=== PATIENT | male | born 1945 ===

== ENCOUNTER 2023-06-04 10:14 | Outpatient (OUT) | payer OTHER, MEDICAID, SELFPAY ==
--- NOTE | 2023-06-04 10:25 | VEIN_ITS ---
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 Informed written consent was obtained. Lise Solano RN andShayla Arenas RDMS assisted. Time out procedure was performed. The left lower extremity was prepared and draped in the usual sterile fashion to allow knee flexion in the sterile field. Duplex ultrasound probe was draped in a sterile cover, sterile transmission gel was used. Venous mapping was performed with the areas of dilation and large tributaries marked. The total length was 65 cm from the entry 6 cm above the medial malleolus to 3 cm below the saphenofemoral junction. The diameter of the greater saphenous vein ranged from 10 mm. A 30 gauge needle and 1% buffered lidocaine was used to anesthetize the entry site. A 4 mm incision was made with a scalpel and the saphenous vein was entered percutaneously under direct ultrasound guidance with a micropuncture set, a single stick was successful in gaining access. A micro-guide wire was inserted and the needle removed. A micro-set including a dilator was inserted over the microwire and the needle and dilator were removed. A guide wire was inserted through the micro-set and guided through the saphenous vein to the saphenofemoral junction. The dilator was removed and an introducer sheath was inserted over the wire until the end of the sheath entered the saphenofemoral junction. The dilator and wire were removed and the 600 micron fiber was introduced and placed and positioned so that it extended beyond the sheath and was 3 cm distal to the saphenofemoral femoral junction. Final position of the fiber was determined by ultrasound guidance and duplex imaging. Tumescent anesthetic was delivered by ultrasound guidance. 600 cc of fluid was delivered along the entire course of the saphenous vein. The solution consisted of 1000 cc of normal saline with 40 mL of 1% lidocaine and 20 mL of sodium bicarbonate. A final positioning check was made. The energy source was turned on by means of the foot pedal and the fiber and sheath were withdrawn. The total number of Joules delivered was 3360. The laser was active for 420seconds under continuous pulse, average laser use of 8 J. Laser start time 11:31 AM, 06/04/2023. Laser stop time 11:39 AM, 06/04/2023. A duplex ultrasound revealed compressibility and flow at the saphenofemoral junction immediately after the procedure. Hemostasis at the access site was achieved. The skin incision of the saphenous vein was closed with a 4 x 4. A compression stocking was applied. Postop instructions were given. A follow up appointment was recommended and scheduled. The patient tolerated the procedure well. Electronically authenticated by: CALI FRASER Date: 06/04/2023 12:51
[2023-06-05] MEDS: LIDOCAINE HCL 10 ML, SODIUM BICARBONATE 1 MEQ INJ (08:25)
[2023-06-05] MEDS: 0.9 % SODIUM CHLORIDE 500 ML, LIDOCAINE HCL 20 ML, SODIUM BICARBONATE 10 MEQ INJ (08:25)
== END 2023-06-04 10:15 | disposition home or self-care (01) ==
LOC: VC 10:14
PROVIDERS: PCP Radiology Diagnostic Radiology; Visit Provider Radiology Diagnostic Radiology
DX: I83.813 Varicose veins of bilateral lower extremities with pain (principal); I80.02 Phlebitis and thrombophlebitis of superficial vessels of left lower extremity
CPT/HCPCS: 36478

== ENCOUNTER 2023-06-09 10:44 | Outpatient (OUT) | payer OTHER, MEDICAID, SELFPAY ==
--- NOTE | 2023-06-09 10:46 | VEIN_ITS ---
Patient: YOUSIF NAJERA Exam Date: 06/09/2023 : 1945 Gender:M Ordering : DR THERESA DE DIOS M.D. Admission #: [id number] Family : Order #: [id number] CLICK HERE TO VIEW EXAM RADIOLOGY REPORT PROCEDURE: VC EXT VENOUS LT LIMITED COMPARISON: None. INDICATIONS: I80.02 Phlebitis of superficial veins of lt lower extremity TECHNIQUE: Lower extremity rodriges scale and Duplex Doppler evaluation of the deep venous system from the inguinal ligament through the calf veins. FINDINGS: REGION: Left lower extremity. THROMBI: Negative for DVT. Heat induced thrombus in left prox GSV 6.4cm from SFJ and extends to distal lower leg. COMPRESSIBILITY: Non-compressible segments. FLOW: Areas of no flow. OTHER: CONCLUSION: 1. Successful post ablation occlusion of left great saphenous vein. Dictated by: Koko Tanner M.D. on 06/09/2023 at 15:19 Approved by: Koko Tanner M.D. on 06/09/2023 at 15:19
--- NOTE | 2023-06-09 10:46 | VEIN_ITS ---
Patient: YOUSIF NAJERA Exam Date: 06/09/2023 : 1945 Gender:M Ordering : DR THERESA DE DIOS M.D. Admission #: [id number] Family : Order #: [id number] CLICK HERE TO VIEW EXAM RADIOLOGY REPORT PROCEDURE: FACILITY EST LMTD VEIN CENTER - OFFICE VISIT FOLLOW UP COMPARISON: None. PROGRESS NOTES: The patient reports left lower extremity tenderness. Patient is not removed wrapping/bandages since procedure. The patient has followed our recommendations to walk 20-30 minutes once or twice per day since the procedure. Physical exam demonstrates mild erythema at site of prior bandages/wrapping slow without evidence of infection. Persistent varicosities and lower extremity discoloration are identified along the left leg. Review of the ultrasound performed the same day demonstrates occlusive thrombus extending throughout the treated vein, see separate report, consistent with a successful ablation. No thrombus extending into or beyond the saphenofemoral junction. The patient expressed a desire to proceed with treatment of remaining incompetent varicosities. The patient was informed that treatment was a process and would require several procedures/sessions. VEIN/ Facility EST LMTD IMPRESSION: 1. Successful ablation of the left great saphenous vein 2. Persistent incompetent varicose veins and bilateral lower extremity symptoms PLAN: Endovenous laser ablation of left small saphenous vein. Nurse notes, history and physical were reviewed and confirmed, see attached forms. The nurse was present throughout the physical exam and consultation Dictated by: Koko Tanner M.D. on 06/10/2023 at 07:48 Approved by: Koko Tanner M.D. on 06/10/2023 at 07:54
== END 2023-06-09 10:45 | disposition home or self-care (01) ==
LOC: VC 10:45
PROVIDERS: PCP Radiology Diagnostic Radiology; Visit Provider Radiology Diagnostic Radiology
DX: I80.02 Phlebitis and thrombophlebitis of superficial vessels of left lower extremity (principal)
CPT/HCPCS: 93971; G0463

== ENCOUNTER 2023-07-24 08:41 | Outpatient (OUT) | payer OTHER, MEDICAID, SELFPAY ==
--- NOTE | 2023-07-24 08:42 | VEIN_ITS ---
[address] [address] Patient Name: YOUSIF NAJERA MRN: [id number] date: 1945 Sex: M Assigned Patient Location: Current Patient Location: Accession/Order Number: [id number] Exam Date: 07/24/2023 08:45 Report Date: 07/24/2023 10:29 At the request of: THERESA DE DIOS Procedure: VC Endovenous Ablation 1VeinLT EXAMINATION: VC Endovenous Ablation 1VeinLT HISTORY: I83.813 Pain due to varicose veins of bilateral legs The risks and benefits of the procedure had been previously discussed, and were rediscussed at length. Informed written consent was obtained. Cindy Sanchez RN and Mireille Lara RDMS, RVT assisted. Time out procedure was performed. The left lower extremity was prepared and draped in the usual sterile fashion to allow knee flexion in the sterile field. Duplex ultrasound probe was draped in a sterile cover, sterile transmission gel was used. Venous mapping was performed with the areas of dilation and large tributaries marked. The total length was 34 cm from the entry 3 cm above the lateral malleolus to 3 cm below the saphenofemoral popliteal junction. The diameter of the small saphenous vein ranged from 7.0 mm. A 30 gauge needle and 1% buffered lidocaine was used to anesthetize the entry site. A 4 mm incision was made with a scalpel and the saphenous vein was entered percutaneously under direct ultrasound guidance with a micropuncture set, a single stick was successful in gaining access. A micro-guide wire was inserted and the needle removed. A micro-set including a dilator was inserted over the microwire and the needle and dilator were removed. A guide wire was inserted through the micro-set and guided through the saphenous vein to the saphenofemoral junction. The dilator was removed and an introducer sheath was inserted over the wire until the end of the sheath entered the saphenofemoral junction. The dilator and wire were removed and the 600 micron fiber was introduced and placed and positioned so that it extended beyond the sheath and was 3 cm distal to the saphenofemoral or saphenopopliteal junction. Final position of the fiber was determined by ultrasound guidance and duplex imaging. Tumescent anesthetic was delivered by ultrasound guidance. 100 cc of fluid was delivered along the entire course of the saphenous vein. The solution consisted of 1000 cc of normal saline with 40 mL of 1% lidocaine and 20 mL of sodium bicarbonate. A final positioning check was made. The energy source was turned on by means of the foot pedal and the fiber and sheath were withdrawn. The total number of Joules delivered was 1867. The laser was active for 233 seconds under continuous pulse, average laser use of 8 J. Laser start time 9:26 AM, 07/24/2023. Laser stop time 9:30 AM, 07/24/2023. A duplex ultrasound revealed compressibility and flow at the saphenofemoral junction immediately after the procedure. Hemostasis at the access site was achieved. The skin incision of the saphenous vein was closed with a 4 x 4. A compression stocking was applied. Postop instructions were given. A follow up appointment was recommended and scheduled. The patient tolerated the procedure well. Electronically authenticated by: CALI FRASER Date: 07/24/2023 10:29
[2023-07-24] MEDS: LIDOCAINE HCL 10 ML, SODIUM BICARBONATE 1 MEQ INJ (08:50)
[2023-07-24] MEDS: 0.9 % SODIUM CHLORIDE 500 ML, LIDOCAINE HCL 20 ML, SODIUM BICARBONATE 10 MEQ INJ (08:50)
== END 2023-07-24 08:42 | disposition home or self-care (01) ==
LOC: VC 08:42
PROVIDERS: PCP Radiology Diagnostic Radiology; Visit Provider Radiology Diagnostic Radiology
DX: I83.813 Varicose veins of bilateral lower extremities with pain (principal)
CPT/HCPCS: 36478

== ENCOUNTER 2023-07-28 07:42 | Outpatient (OUT) | payer OTHER, MEDICAID, SELFPAY ==
--- NOTE | 2023-07-28 07:45 | VEIN_ITS ---
Patient: YOUSIF NAJERA Exam Date: 07/28/2023 : 1945 Gender:M Ordering : DR CHRIS KIM M.D. Admission #: [id number] Family : Order #: [id number] CLICK HERE TO VIEW EXAM RADIOLOGY REPORT PROCEDURE: FACILITY EST L[facility]D [facility] CENTER - OFFICE VISIT FOLLOW UP [facility] PROGRESS NOTES: The patient reports no significant problems following intravenous laser ablation of the left small saphenous vein. The patient did not require oral analgesics. The patient has worn his compression stockings bilaterally as directed. The patient has followed our recommendations to walk 20-30 minutes once or twice per day since the procedure. Physical exam demonstrates no areas of erythema or warmth. No bruising or active ulceration. Extensive hemosiderin staining skin thickening and subcutaneous edema on the left leg. Review of the ultrasound performed the same day demonstrates occlusive thrombus extending throughout the treated left small saphenous vein with heat induced thrombus 5.1 mm from the saphenopopliteal junction. No deep vein thrombus. The patient expressed a desire to proceed with treatment of incompetent right leg perforating veins with intravenous laser ablation. VEIN/ Facility EST LMTD IMPRESSION: 1. Successful ablation of the left small saphenous vein 2. Persistent incompetent bilateral perforating veins PLAN: Intravenous laser ablation right leg incompetent perforating veins Nurse notes, history and physical were reviewed and confirmed, see attached forms. The nurse was present throughout the physical exam and consultation Dictated by: Chris Kim MD on 07/28/2023 at 08:30 Approved by: Chris Kim MD on 07/28/2023 at 08:32
--- NOTE | 2023-07-28 07:45 | VEIN_ITS ---
Patient: YOUSIF NAJERA Exam Date: 07/28/2023 : 1945 Gender:M Ordering : DR CHRIS KIM M.D. Admission #: [id number] Family : Order #: [id number] CLICK HERE TO VIEW EXAM RADIOLOGY REPORT PROCEDURE: VC EXT VENOUS LT LIMITED COMPARISON: VC EXT VENOUS LT LIMITED, 06/09/2023. INDICATIONS: I80.02 Phlebitis of superficial veins of lt lower extremity TECHNIQUE: Lower extremity rodriges scale and Duplex Doppler evaluation of the deep venous system from the inguinal ligament through the calf veins. FINDINGS: REGION: Left lower extremity. THROMBI: Negative for DVT. 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 Heat induced thrombus in left SSV 5.1 mm from SPJ and extends to distal lower leg. COMPRESSIBILITY: Non-compressible segments corresponding to thrombus. FLOW: Absent flow corresponding to thrombus CONCLUSION: Post ablation occlusion of the left small saphenous vein with heat induced thrombus 5.1 mm from the saphenopopliteal junction Dictated by: Chris Kim MD on 07/28/2023 at 08:13 Approved by: Chris Kim MD on 07/28/2023 at 08:17
== END 2023-07-28 07:43 | disposition home or self-care (01) ==
LOC: VC 07:42
PROVIDERS: PCP Radiology Diagnostic Radiology; Visit Provider Radiology Diagnostic Radiology
DX: I80.02 Phlebitis and thrombophlebitis of superficial vessels of left lower extremity (principal)
CPT/HCPCS: 93971; G0463

== ENCOUNTER 2023-08-11 10:18 | Outpatient (OUT) | payer OTHER, MEDICAID, SELFPAY ==
--- NOTE | 2023-08-11 | VEIN_ITS ---
[address] [address] Patient Name: YOUSIF NAJERA MRN: [id number] date: 1945 Sex: M Assigned Patient Location: Current Patient Location: Accession/Order Number: [id number] Exam Date: 08/11/2023 10:20 Report Date: 08/11/2023 11:33 At the request of: THERESA DE DIOS Procedure: VC Endovenous Perf Ablation RT EXAMINATION: VC Endovenous Perf Ablation RT COMPARISON: INDICATIONS: I83.813 Pain due to varicose veins of bilateral legs OPERATIVE REPORT: Diagnosis: Superficial venous reflux, incompetent perforating veins Procedure: Endovenous laser ablation of the right parole hearing officer(s) Procedure: The patient was positioned supine on the table and the leg was prepped and draped to allow for visualization during venous access. A sterile cover was draped over a 16 mhz ultrasound probe. Venous mapping was performed prior to the procedure noting location and size of vessel(s). Soda Drier Feeder vein 1: Medial distal right lower leg/ankle. The diameter of the vein ranged from 6 mm's below the muscular fascia to 6 mm's at the entry point. Using a 30 gauge needle the entry site was anesthetized with 1 cc of 1% buffered lidocaine. Access was gained percutaneously, with a 21-gauge needle, into the parole hearing officer vein under ultrasound guidance. The needle was advanced into the desired position and the pre-measured 400-micron fiber was then inserted into the needle and locked in place. The position of the fiber was imaged with ultrasound guidance. The fiber tip was visualized to be 20 mm from the deep vessel. An anesthetic solution of 5cc 1% buffered lidocaine was delivered along the course of the vein under ultrasound guidance using a syringe. A final positioning check of the laser fiber tip was performed. The laser was activated by means of a foot-pedal and the fiber and needle were withdrawn together in accordance to the desired joules per treatment area/spot weld. 5 areas/spot welds were performed, and the total number of joules delivered was 251. The total time of energy delivery was 31 seconds. A duplex ultrasound revealed compressibility and flow of the deep system immediately after the procedure. Hemostasis of the access site was achieved and dressed. Soda Drier Feeder vein 2: Anterior mid right lower leg. The diameter of the vein ranged from 5 mm's below the muscular fascia to 4 mm's at the entry point. Using a 30 gauge needle the entry site was anesthetized with 1 cc of 1% buffered lidocaine. Access was gained percutaneously, with a 21-gauge needle, into the parole hearing officer vein under ultrasound guidance. The needle was advanced into the desired position and the pre-measured 400-micron fiber was then inserted into the needle and locked in place. The position of the fiber was imaged with ultrasound guidance. The fiber tip was visualized to be 30 mm from the deep vessel. An anesthetic solution of 5cc 1% buffered lidocaine was delivered along the course of the vein under ultrasound guidance using a syringe. A final positioning check of the laser fiber tip was performed. The laser was activated by means of a foot-pedal and the fiber and needle were withdrawn together in accordance to the desired joules per treatment area/spot weld. 4 areas/spot welds were performed, and the total number of joules delivered was 188. The total time of energy delivery was 23 seconds. A duplex ultrasound revealed compressibility and flow of the deep system immediately after the procedure. Hemostasis of the access site was achieved and dressed. Soda Drier Feeder vein 3: Anterior mid right lower leg. The diameter of the vein ranged from 6 mm's below the muscular fascia to 5 mm's at the entry point. Using a 30 gauge needle the entry site was anesthetized with 1 cc of 1% buffered lidocaine. Access was gained percutaneously, with a 21-gauge needle, into the parole hearing officer vein under ultrasound guidance. The needle was advanced into the desired position and the pre-measured 400-micron fiber was then inserted into the needle and locked in place. The position of the fiber was imaged with ultrasound guidance. The fiber tip was visualized to be 25 mm from the deep vessel. An anesthetic solution of 5cc 1% buffered lidocaine was delivered along the course of the vein under ultrasound guidance using a syringe. A final positioning check of the laser fiber tip was performed. The laser was activated by means of a foot-pedal and the fiber and needle were withdrawn together in accordance to the desired joules per treatment area/spot weld. 4 areas/spot welds were performed, and the total number of joules delivered was 160. The total time of energy delivery was 20 seconds. A duplex ultrasound revealed compressibility and flow of the deep system immediately after the procedure. Hemostasis of the access site was achieved and dressed. A 20-30 mm compression stocking over coban was placed on the treated leg. Post-Op instructions were given, and a follow-up appointment was made. CONCLUSION: 1. Technically successful endovenous laser ablation of 3 right leg incompetent parole hearing officer veins Electronically authenticated by: THERESA DE DIOS Date: 08/11/2023 11:33
[2023-08-11] MEDS: LIDOCAINE HCL 20 ML, SODIUM BICARBONATE 2 MEQ INJ (10:29)
== END 2023-08-11 10:19 | disposition home or self-care (01) ==
LOC: VC 10:18
PROVIDERS: PCP Radiology Diagnostic Radiology; Visit Provider Radiology Diagnostic Radiology
DX: I83.813 Varicose veins of bilateral lower extremities with pain (principal)
CPT/HCPCS: 36478

== ENCOUNTER 2023-08-25 10:04 | Outpatient (OUT) | payer OTHER, MEDICAID, SELFPAY ==
--- NOTE | 2023-08-25 10:05 | VEIN_ITS ---
Patient: YOUSIF NAJERA Exam Date: 08/25/2023 : 1945 Gender:M Ordering : DR THERESA DE DIOS M.D. Admission #: [id number] Family : Order #: [id number] CLICK HERE TO VIEW EXAM RADIOLOGY REPORT PROCEDURE: VC EXT VENOUS RT LMTD COMPARISON: None. INDICATIONS: I80.01 Phlebitis of superficial veins of rt lower extremity TECHNIQUE: Lower extremity rodriges scale and Duplex Doppler evaluation of the deep venous system from the inguinal ligament through the calf veins. FINDINGS: REGION: Right lower extremity. THROMBI: Negative for DVT. Heat induced thrombus in two environmental advisor veins in medial lower leg. COMPRESSIBILITY: Non-compressible segments. FLOW: Areas of no flow. OTHER: Varicose veins remain. CONCLUSION: 1. Successful post ablation occlusion of right lower extremity treated environmental advisor veins. Dictated by: Koko Tanner M.D. on 08/25/2023 at 10:27 Approved by: Koko Tanner M.D. on 08/25/2023 at 10:34
--- NOTE | 2023-08-25 10:05 | VEIN_ITS ---
Patient: YOUSIF NAJERA Exam Date: 08/25/2023 : 1945 Gender:M Ordering : DR THERESA DE DIOS M.D. Admission #: [id number] Family : Order #: [id number] CLICK HERE TO VIEW EXAM RADIOLOGY REPORT PROCEDURE: [facility] EST LMTD VEIN CENTER - OFFICE VISIT FOLLOW UP COMPARISON: [facility], 07/28/2023. PROGRESS NOTES: The patient reports improvement in leg symptoms. There has been interval reduction in varicosities. The patient has followed our recommendations to walk 20-30 minutes once or twice per day since the procedure. Physical exam demonstrates decrease in varicosities of the leg. Persistent extensive skin changes and healing wounds are identified along the lower legs. Review of the ultrasound performed the same day demonstrates occlusive thrombus extending throughout the treated vein(s), see separate report, consistent with a successful ablation. No thrombus extending into or beyond the saphenofemoral junction. The patient expressed a desire to proceed with treatment of remaining incompetent varicosities, but has not been approved for additional treatment by insurance. VEIN/[facility] EST TD IMPRESSION: 1. Successful ablation of the right lower extremity shrimp trawler veins. 2. Persistent abnormal dilated incompetent superficial veins and bilateral lower extremity symptoms. PLAN: 1. Follow-up evaluation in 3 months to track healing progress of lower extremity wounds and extensive skin changes. Resubmit to insurance to obtain approval for the additional much needed treatment. Nurse notes, history and physical were reviewed and confirmed, see attached forms. The nurse was present throughout the physical exam and consultation Dictated by: Koko Tanner M.D. on 08/25/2023 at 10:34 Approved by: Koko Tanner M.D. on 08/25/2023 at 10:39
== END 2023-08-25 10:05 | disposition home or self-care (01) ==
PROVIDERS: PCP Radiology Diagnostic Radiology; Visit Provider Radiology Diagnostic Radiology
DX: I80.01 Phlebitis and thrombophlebitis of superficial vessels of right lower extremity (principal)
CPT/HCPCS: 93971; G0463

== ENCOUNTER 2023-11-26 09:42 | Outpatient (OUT) | payer OTHER, MEDICAID, SELFPAY ==
--- NOTE | 2023-11-26 | VEIN_ITS ---
Patient Name: YOUSIF NAJERA MR#: [id number] : 1945 Exam Date: 11/26/2023 Ordering Doctor: DR THERESA DE DIOS M.D. RADIOLOGY REPORT PROCEDURE: VC EXT VENOUS MITCH LIMITED COMPARISON: None. INDICATIONS: Phlebitis of superficial vein of bilateral lower extremities TECHNIQUE: Lower extremity rodriges scale and Duplex Doppler evaluation of the deep venous system from the inguinal ligament through the calf veins. FINDINGS: REGION: Right lower extremity. THROMBI: None in deep system. COMPRESSIBILITY: Normal compressibility. FLOW: Normal waveform and antegrade flow between 5 and 20 cm/s. OTHER: Patent varicose vein mid/med thigh 5.6mm with 1.3s reflux. Patent varicose vein medial knee 5.3mm with 1.5s reflux. Patent varicose vein 3.9mm with 1.3s reflux. Patent varicose vein dist/med calf 4.7mm with 0.7s reflux. Patent varicose vein mid/ant thigh 5.1 mm with 0.8s reflux. REGION: Left lower extremity. THROMBI: None in deep system. COMPRESSIBILITY: Normal compressibility. FLOW: Normal waveform and antegrade flow between 5 and 20 cm/s. OTHER: Patent varicose vein mid/med thigh 4.5mm with 1.4s reflux. Patent varicose vein mid/ant thigh 6.3mm with 1.0s reflux. Patent varicose dist/med thigh 4.3mm with 1.2s reflux. Patent varicose vein prox/med calf 3.8mm with 0.7s reflux. Patent varicose vein 5.0mm with 0.8s reflux. Patent varicose vein dist/lat thigh 4.8mm with 1.3s reflux. CONCLUSION: 1. No deep vein thrombus within right or left lower extremity. 2. Multiple dilated and incompetent superficial varicosities bilaterally. 3. Microfoam chemical ablation of dilated and incompetent superficial varicosities is recommended bilaterally. Dictated by: Koko Tanner M.D. on 11/26/2023 at 10:31 Approved by: Koko Tanner M.D. on 11/26/2023 at 12:17
--- NOTE | 2023-11-26 | VEIN_ITS ---
Patient Name: YOUSIF NAJERA MR#: [id number] : 1945 Exam Date: 11/26/2023 Ordering Doctor: DR THERESA DE DIOS M.D. RADIOLOGY REPORT PROCEDURE: [facility] EST L[facility] VEIN CENTER - OFFICE VISIT FOLLOW UP [facility] PROGRESS NOTES: The patient reports continued lower extremity symptoms and extensive bilateral lower extremity skin changes. Physical exam demonstrates bilateral superficial varicosities of the legs and extensive lower extremity skin changes bilaterally; no open wounds. Review of the ultrasound performed the same day demonstrates occlusive thrombus extending throughout the treated vein(s), and numerous patent, abnormally dilated, and incompetent superficial varicosities of the legs bilaterally. The patient expressed a desire to proceed with treatment of remaining incompetent superficial varicosities. The patient was informed that treatment was a process and would require multiple procedures/sessions. VEIN/[facility] EST LMTD IMPRESSION: 1. Numerous incompetent and dilated superficial branch saphenous varicosities bilaterally. PLAN: 1. Request insurance company approval for treatment of patient's numerous abnormally dilated lower extremity branch saphenous varicosities with microfoam chemical ablation. Nurse notes, history and physical were reviewed and confirmed, see attached forms. The nurse was present throughout the physical exam and consultation Dictated by: Koko Tanner M.D. on 11/26/2023 at 12:17 Approved by: Koko Tanner M.D. on 11/26/2023 at 12:25
== END 2023-11-26 09:43 | disposition home or self-care (01) ==
LOC: VC 09:42
PROVIDERS: PCP Radiology Diagnostic Radiology; Visit Provider Radiology Diagnostic Radiology
DX: I83.813 Varicose veins of bilateral lower extremities with pain (principal)
CPT/HCPCS: 93970; G0463

== ENCOUNTER 2024-01-15 13:40 | Outpatient (OUT) | payer OTHER, MEDICAID, SELFPAY ==
--- NOTE | 2024-01-15 13:45 | VEIN_ITS ---
[address] [address] Patient Name: YOUSIF NAJERA MRN: [id number] date: 1945 Sex: M Assigned Patient Location: Current Patient Location: Accession/Order Number: [id number] Exam Date: 01/15/2024 13:59 Report Date: 01/15/2024 15:00 At the request of: THERESA DE DIOS Procedure: VC INJ Foam Sclerosant WUS ENVIRONMENTAL EDUCATION SPECIALIST PROCEDURE: VC INJ Foam Sclerosant WUS ENVIRONMENTAL EDUCATION SPECIALIST HISTORY: Pain due to varicose veins of bilateral legs I83.813 Pre-operative Diagnosis: CEAP class C6 venous insufficiency with pain, tenderness, edema and incompetent branch saphenous vein(s), chronic venous insufficiency right leg secondary to venous incompetence Post-operative Diagnosis: CEAP class C6 venous insufficiency with pain, tenderness, edema and incompetent branch saphenous vein(s), chronic venous insufficiency right leg secondary to venous incompetence Procedure Performed: 1. Ultrasound-guided microfoam chemical ablation with Varithenaregistered 2. Intraoperative ultrasound guidance Physician: Cali Tanner M.D. Anesthesia: None Indications for Procedure: 78 year old male. Symptoms including chronic skin changes, pain, swelling, dilated bulging veins for many years despite conservative medical therapy including medical compression stockings, exercise and analgesics. Prior procedures include [endovenous laser ablation. Multiple incompetent varicosities of the right leg. Duplex scan showed reflux and enlarged diameters up to 5 mm. The patient underwent informed consent including management options where the complications of infection, bleeding, pain, and skin injury were discussed. Particular attention was spent discussing thrombus extension and deep vein thrombosis as well as the possibility of pulmonary embolus and treatment with oral or injectable blood thinners. Procedure: The patient walked to the procedure room. All applicable staff donned appropriate apparel. A procedure timeout was performed to confirm correct patient, correct extremity, correct procedure, and correct room set-up including presence of all applicable supplies, devices, and drugs. A duplex ultrasound, performed by myself confirmed the location and incompetence of branch saphenous varicosities and their course was marked on the skin together with the dilated tributaries. The extent of treatment of the vein and the associated varicosities was determined through ultrasound mapping. The skin was prepped and then punctured with a butterfly needle and advanced under ultrasound guidance. The Varithenaregistered canister was activated and the canister was primed and purged as required in the instructions for use. Varithenaregistered was drawn into a sterile syringe. Varithenaregistered was slowly administered at 0.5-1.0 cc/second with close observation by ultrasound of its course in the vessels. Total volume utilized was: 15 mL (12 mL into a 5 mm varicosity distal medial lower leg; 3 mL into a 5 mm varicosity proximal anterior lower leg). Following administration of Varithenaregistered the leg was elevated and the patient was asked to repeatedly dorsiflex the ankle to limit flow of Varithenaregistered into perforating veins. Once appropriate spasm had been confirmed in the treated veins, the vascular catheter was removed from the leg and light pressure was applied over the puncture site for hemostasis. The common femoral and deep superficial veins were then evaluated for flow and compressibility prior to dressing placement. The lower extremity was kept elevated at 45 degrees above the horizontal and cording material was applied over the saphenous segments and tributaries to allow for eccentric compression over the target vessels including the targeted saphenous vein(s). A multilayer dressing was applied consisting of foam pads, coban and thigh-high 20-30 mm Hg compression elastic support hose were placed on the patient. The leg was lowered only after compression had been applied and the patient was immediately ambulatory. The patient ambulated 10 minutes under supervision and was without apparent concerns at time of release. Post-care instructions include advising patient to keep post-treatment bandages in place and dry for 48 hours, avoid extended periods of inactivity, avoid heavy exercise for one week, wear compression stockings on the treated leg continuously for two weeks, to walk daily for 10 minutes over the next month. The patient was instructed to take an anti-inflammatory medicine as needed and to follow up for color duplex scan of the Saphenous veins, the treated branch saphenous varicosities, the adjacent deep veins, and additional treatment within 7 days. PERSONNEL: Deandre Lechuga RN Electronically authenticated by: CALI TANNER Date: 01/15/2024 15:00
--- OUTSIDE RECORDS SUMMARY | 2024-01-15 13:56 | XMS_ITS | CCD ---
Author Name Unknown Address [address] [place] [address] Organization [facility] Care Team Providers Care Heavy Equipment Technician Name Role Phone NEO ROCHA Unavailable Unavailable GTZ III, ABBIE R Unavailable Unavailabl e Dolce, Stepehn R. Admitting Unavailable Dolce, Stephen R. Attending Unavailable Gtz, Abbie Primary Care Unavailable [place] Admitting Unavailable [place] Attending Unavailable Gtz, Abbie Primary Care Unavailable Gzt III, Abbie R Primary Care Physician Unavailable Primary Care Provider Unavailabl e PROVIDER, UNKNOWN Admitting Unavailable PROVIDER, UNKNOWN Attending Unavailable PROVIDER, UNKNOWN Admitting Unavailable PROVIDER, UNKNOWN Attending Unavailable Perlita Reno Unavailable Gtz III, DO Abbie R Primary Care Provider NEIL Reno Attending Provider Perlita Reno Attending Unavailable Perlita Reno Admitting Unavailable Gtz III, Abbie R Primary Care Unavailabl e DOLCE, DR COTE Attending Unavailable DOLCE, DR COTE Admitting Unavailable Dolce, Facundo Alfred Attending Unavailable Dolce, Facundo Alfred Referring Unavailable Dolce, Facundo Alfred Attending Unavailable Dolce, Facundo Alfred Attending Unavailable Dolce, Facundo Alfred Attending Unavailable Dolce, Stephen Cross Attending Unavailable Pocos, Theresa Montgomery Referring Unavailable Pocos, Theresa Montgomery Attending Unavailable Pocos, Theresa Montgomery Admitting Unavailable Dolce, Facundo Alfred Attending Unavailable Dolce, Facundo Alfred Attending Unavailable Dolce, Facundo Alfred Attending Unavailable Dolce, Facundo Alfred Attending Unavailable Dolce, Facundo Alfred Attending Unavailable Dolce, Stephen Cross Attending Unavailable Dolce, Facundo Alfred Attending Unavailable Dolce, Facundo Alfred Attending Unavailable Dolce, Facundo Alfred Attending Unavailable Dolce, Facundo Alfred Attending Unavailable Dolce, Facundo Alfred Attending Unavailable Dolce, Facundo Alfred Attending Unavailable Dolce, Facundo Alfred Attending Unavailable Dolce, Facundo Alfred Referring Unavailable Dolce, Facundo Alfred Admitting Unavailable Dolce, Facundo Alfred Attending Unavailable Gtz, Abbie R Admitting Unavailable Gtz, Abbie R Attending Unavailable Dokken, Bryce Montgomery Attending Unavailable Dolce, Facundo Alrfed Attending Unavailable Dolce, Facundo Alfred Attending Unavailable Dolce, Facundo Alfred Attending Unavailable Dolce, Facundo Alfred Attending Unavailable Dolce, Facundo Alfred Attending Unavailable Dolce, Facundo Alfred Attending Unavailable Dolce, Facundo Alfred Attending Unavailable Dolce, Facundo Alfred Attending Unavailable Dolce, Stephen Cross Attending Unavailable Dolce, Facundo Alfred Attending Unavailable Dolce, Facundo Alfred Attending Unavailable Dolce, Facundo Alfred Attending Unavailable Dolce, Facundo Alfred Attending Unavailable Pocos, Theresa Montgomery Referring Unavailable Pocos, Theresa Montgomery Attending Unavailable Pocos, Theresa Montgomery Admitting Unavailable Dolce, Facundo Alfred Attending Unavailable Dolce, Facundo Alfred Attending Unavailable Dolce, Facundo Alfred Attending Unavailable Dolce, Facundo Alfred Attending Unavailable Dolce, Facundo Alfred Attending Unavailable Dolce, Facundo Alfred Admitting Unavailable POCOS, THERESA Montgomery Attending Unavailable POCOS, THERESA Montgomery Referring Unavailable POCOS, THERESA Montgomery Attending Unavailable POCOS, THERESA Montgomery Referring Unavailable POCOS, THERESA Montgomery Attending Unavailable POCOS, THERESA Montgomery Attending Unavailable POCOS, THERESA Montgomery Referring Unavailable Allergies Allergy Classification Reported Allergen(s) Allergy Type Date of Onset Reaction(s) Facility (20 sources) iodine; Translations: [IODINE] Drug Allergy 6 Unknown (qualifier value) [facility] Repository (20 sources) Penicillins; Translations: [PENICILLINS] Propensity to adverse reactions to drug (disorder) 6 Unknown (qualifier value) [facility] Repository (1 source) SHELLFISH CONTAINING PRODUCTS; Translations: [SHELLFISH CONTAINING PRODUCTS] Propensity to adverse reactions to drug (disorder) 7 AOF [facility] Repository (20 sources) Shellfish; Translations: [shellfish] Propensity to adverse reactions (disorder) Pharyngeal swelling (finding), Difficulty breathing (finding) [facility] Repository (5 sources) Contrast media; Translations: [Contrast Dye] Propensity to adverse reactions Dizziness (finding) [facility] (1 source) Penicillin Drug Allergy rash [employer] Other (1 source) Shellfish Drug allergy Unknown [employer] Other (1 source) Penicillins; Translations: [penicillins] Drug allergy Unknown (qualifier value) [facility] Comment on above: as a child Medications Current Medications Medication Drug Class(es) Dates Sig (Normalized) Sig (Original) acetaminophen 325 mg / HYDROcodone bitartrate 5 mg oral tablet (2 sources) Opioid Agonist Start: 10-28-2023 [place] 325 mg-5 mg oral tablet See Instructions, for pain, 40 tab(s), Refill(s) 0, 1 - 2 po q4-6h prn pain Dx: S52.031D Duration: 7 days, [id number], 177, cm, 10/22/23 12:25:00 EST, Height/Length Dosing, 132.5, kg, 10/22/23 12:25:00 EST, Weight Dosing Start Date: 10/28/23 Status: Ordered Start: 10-17-2023 End: 10-20-2023 take 1 tablet by mouth every six hours for pain [place] 325 mg-5 mg oral tablet 1 tab(s), Oral, q6hr for pain for 3 day(s), 10 tab(s), Refill(s) 0, [facility], 177.8, cm, 10/17/23 21:21:00 EST, Height/Length Dosing, 133.1, kg, 10/17/23 21:21:00 EST, Weight Dosing Start Date: 10/17/23 Stop Date: 10/20/23 Status: Ordered atorvastatin 20 mg oral tablet (20 sources) HMG-CoA Reductase Inhibitor Start: 05-03-2014 take 1 tablet by mouth once daily at bedtime atorvastatin 20 mg Tab 20 mg = 1 tab(s), Oral, Once a day (at bedtime), Refills(s) 0, High cholesterol Start Date: 05/03/14 Status: Ordered docusate sodium 100 mg oral capsule (1 source) Start: 10-28-2023 take 1 capsule by mouth twice daily as needed for constipation Colace 100 mg Cap 100 mg = 1 cap(s), Oral, BID, PRN for constipation, # 40 cap(s), Refills(s) 0, Pharmacy: [id number], 177, cm, 10/22/23 12:25:00 EST, Height/Length Dosing, 132.5, kg, 10/22/23 12:25:00 EST, Weight Dosing Start Date: 10/28/23 Status: Ordered hydroCHLOROthiazide 25 mg oral tablet (20 sources) Thiazide Diuretic Start: 01-27-2017 take 1 tablet by mouth once daily hydrochlorothiazide 25 mg oral tablet 25 mg = 1 tab(s), Oral, Daily, Refills(s) 0, diuretic/water pill Start Date: 01/27/17 Status: Ordered hydroCHLOROthiaz jamil 50 MG Oral for 90 Days Active rivaroxaban 2.5 mg oral tablet (20 sources) Factor Xa Inhibitor Start: 05-14-2019 take 2 tablets by mouth once daily Xarelto 2.5 mg oral tablet 5 mg = 2 tab(s), Oral, Daily, Refills(s) 0, Blood Thinner Start Date: 05/14/19 Status: Ordered take 1 tablet by mouth once princess y Xarelto 10 MG TAKE 1 TABLET BY MOUTH EVERY DAY Oral for 90 Days Active Problems Active Problems Problem Classification Problem Date Documented Date Episodic/Chronic Chronic ulcer of skin (2 sources) Non-pressure chronic ulcer of other part of left lower leg with fat layer exposed; Translations: [Non-pressure chronic ulcer of other part of right lower leg with fat layer exposed] Chronic Disorders of lipid metabolism (20 sources) Hypercholesterolemia 05-19-2014 Chronic Diverticulosis and diverticulitis (20 sources) Diverticula of intestine; Translations: [Diverticulosis of intestine, part unspecified, without perforation or abscess without bleeding] Onset: 03-21-20 Chronic E Codes: Fall (2 sources) Fall; Translations: [Unspecified fall, initial encounter] Onset: 07-05-20 Episodic E Codes: Place of occurrence (1 source) Accident while engaged in household activity; Translations: [Unspecified place in unspecified non-institutional (private) residence as the place of occurrence of the external cause] Onset: 07-05-20 Episodic Essential hypertension (3 sources) Hypertensive disorder 10-22-2023 Chronic Fracture of upper limb (1 source) Closed fracture of olecranon process of ulna; Translations: [Displaced fracture of olecranon process without intraarticular extension of unspecified ulna, initial encounter for closed fracture] Onset: 11-17-20 23 Episodic Hemorrhoids (20 sources) Hemorrhoids; Translations: [Unspecified hemorrhoids] Onset: 03-21-20 Episodic Other and unspecified benign neoplasm (20 sources) Polyp of colon; Translations: [Polyp of colon] Onset: 03-21-20 22 Episodic Other and unspecified benign neoplasm (20 sources) History of polyp of colon 02-15-2022 Episod ic Other diseases of veins and lymphatics (20 sources) Lymphedema 02-11-2014 Chronic Other diseases of veins and lymphatics (20 sources) Stasis dermatitis and venous ulcer of left lower extremity due to chronic peripheral venous hypertension 05-28-2019 Chronic Other diseases of veins and lymphatics (20 sources) Stasis dermatitis and venous ulcer of right lower extremity due to chronic peripheral venous hypertension 05-28-2019 Chronic Other diseases of veins and lymphatics (20 sources) Stasis dermatitis of left lower extremity due to peripheral venous hypertension 05-28-2019 Chronic Other diseases of veins and lymphatics (20 sources) Stasis dermatitis of right lower extremity due to peripheral venous hypertension 05-28-2019 Chronic Other diseases of veins and lymphatics (1 source) Peripheral venous insufficiency; Translations: [Venous insufficiency (chronic) (peripheral)] Episodic Other diseases of veins and lymphatics (1 source) Venous insufficiency of leg; Translations: [Venous insufficiency (chronic) (peripheral)] Episodic Other diseases of veins and lymphatics (1 source) Venous insufficiency (chronic) (peripheral) Episodic Other non-traumatic joint disorders (1 source) Pain in right hip joint; Translations: [Pain in right hip] Onset: 07-05-20 Episodic Phlebitis; thrombophlebitis and thromboembolism (20 sources) Deep venous thrombosis 06-07-2012 Episodic Unclassified (1 source) Varicose veins of right lower extremity with ulcer other part of lower leg; Translations: [Varicose veins of right lower extremity with ulcer other part of lower leg] Onset: 02-28-20 23 Varicose veins of lower extremity (20 sources) Varicose veins of lower extremity with ulcer AND inflammation 05-31-2019 Episodic Past or Other Problems Problem Classification Problem Date Documented Da te Episodic/Chronic Other aftercare (1 source) Encounter for follow-up examination after completed treatment for conditions other than malignant neoplasm; Translations: [Encounter for follow-up examination after completed treatment for conditions other than malignant neoplasm] Onset: 09-03-2017 Episodic Pulmonary heart disease (20 sources) Pulmonary embolism Onset: 12-01-2005 05-28-2019 Episodic Results Test Name Value Interpretation Reference Range Facility IntraOperative Documentson 1 01-04-2023 IntraOperative Documents [id number] [facility] Progress Note-Physicianon Progress Note-Physician Patient: YOUSIF AGUILAR Age: 77 years Sex: Male : 1945 Associated Diagnoses: None Author: MD Rudd Ahmad F Postoperative Information Postoperative disposition: Postoperative disposition: To PACU. Optimetrix number: Optimetrix number [id number]. Anesthetic utilized: General. Health Status Allergies: Allergic Reactions (Selected) Severity Not Documented Contrast Dye- Dizziness. Iodine- Unknown. Penicillins- Unknown. Shellfish- Trouble breathing and throat swelling. Physical Examination VS/Measurements Pain Assessment: Controlled. General: Awake, Alert, Appropriate. Respiratory: Adequate air exchange. Cardiovascular: Stable, Normal peripheral perfusion. Neurological: Normal sensory function, Normal motor function. Assessment Anesthetic outcome No anesthetic complications noted. Adequate pain relief. able to void without difficulty, able to ambulate with assist, tolerating PO intake, no N/V. Review / Management Condition: Stable. Plan Transfer/Discharge: Transfer/Discharge Discharge when meets criteria ( To home ). [facility] Comment on above: Result Comment: Elec tronically Signed By: MD Rudd Ahmad F\.br\Date and Time Signed: 11/01/23 18:16 EST Progress Note-Physician Patient: YOUSIF AGUILAR Age: 77 years Sex: Male : 1945 Associated Diagnoses: None Author: MD Rdud Ahmad F Preoperative Information Time patient last ate or drank:=== (npo 8 hours) Anesthesia history: Patient history: No prior anesthesia problems. Re-evaluation prior to induction: Completed, Initial evaluation reviewed. Review of Systems Respiratory: No shortness of breath. Cardiovascular: No chest pain. Hematology/Lymphatics: No bruising tendency, No bleeding tendency. Health Status Allergies: Allergic Reactions (All) Severity Not Documented Contrast Dye- Dizziness. Iodine- Unknown. Penicillins- Unknown. Shellfish- Trouble breathing and throat swelling. Current medications: (Selected) Prescriptions Prescribed Colace 100 mg Cap: 100 mg = 1 cap(s), Oral, BID, PRN for constipation, # 40 cap(s), Refills(s) 0, Pharmacy: [id number], 177, cm, 10/22/23 12:25:00 EST, Height/Length Dosing, 132.5, kg, 10/22/23 12:25:00 EST, Weight Dosing [place] 325 mg-5 mg oral tablet: See Instructions, for pain, 40 tab(s), Refill(s) 0, 1 - 2 po q4-6h prn pain Dx: S52.031D Duration: 7 days, [id number], 177, cm, 10/22/23 12:25:00 EST, Height/Length Dosing, 132.5, kg, 10/22/23 12:25:00 EST, Weight Dosing Documented Medications Documented Xarelto 2.5 mg oral tablet: 5 mg = 2 tab(s), Oral, Daily, Refills(s) 0, Blood Thinner atorvastatin 20 mg Tab: 20 mg = 1 tab(s), Oral, Once a day (at bedtime), Refills(s) 0, High cholesterol hydrochlorothiazide 25 mg oral tablet: 25 mg = 1 tab(s), Oral, Daily, Refills(s) 0, diuretic/water pill Problem list: All Problems High blood pressure / SNOMED CT 5635811839 / Confirmed Hypercholesterolemia / ICD-9-CM 272.0 / Confirmed Lymphedema / SNOMED CT 74531244 / Confirmed 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 / SNOMED CT 534003792 / Confirmed History of colon polyps / SNOMED CT 7730953524 / Confirmed Colon polyp / SNOMED CT 577892233 / Confirmed Diverticulosis / SNOMED CT 1156361458 / Confirmed Hemorrhoids / SNOMED CT 206060551 / Confirmed Extreme obesity / SNOMED CT [id number]-T432-0 [id number] / Possible Resolved: DVT / SNOMED CT 086423991 Resolved: PE - Pulmonary embolism / SNOMED CT 7748078022 Resolved: Stasis dermatitis co-occurrent with venous ulcer of right lower extremity due to chronic peripheral venous hypertension / SNOMED CT 201769258718543 Resolved: Stasis dermatitis of left lower extremity due to peripheral venous hypertension / SNOMED CT 221152354050608 Resolved: Stasis dermatitis of right lower extremity due to peripheral venous hypertension / SNOMED CT 989276214327162 Resolved: Stasis dermatitis and venous ulcer of left lower extremity due to chronic peripheral venous hypertension / SNOMED CT 750600416046712 Histories Past Medical History: Active Hypercholesterolemia (272.0) Lymphedema (48540396) Resolved PE - Pulmonary embolism (4024849328): Onset on 12/01/2005 at 60 years. Resolved. DVT (879566857): Resolved. Stasis dermatitis co-occurrent with venous ulcer of right lower extremity due to chronic peripheral venous hypertension (357154650716087): Resolved. Stasis dermatitis of left lower extremity due to peripheral venous hypertension (033453388928599): Resolved. Stasis dermatitis of right lower extremity due to peripheral venous hypertension (252330918313216): Resolved. Stasis dermatitis and venous ulcer of left lower extremity due to chronic peripheral venous hypertension (883367806143205): Resolved. Family History: Hyperlipidemia Mother Heart disease Father Non Hodgkin's lymphoma Mother Procedure history: ORIF of Right Elbow (129596458) on 10/28/2023 at 77 Years. Colonoscopy (250063081) on 03/04/2022 at 76 Years[address] EVLT RLSV Dr. Buck on 04/21/2019 at 73 Years. EVLT RASV X 2 on 07/01/2016 at 70 Years. Comments: 05/28/2019 15:[address] 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 Comments: 05/28/2019 15:[address] DID SOME TYPE OF VEIN PROCEDURE PER PATIENT crushed left elbow in 1979 at 34 Years. Comments: 05/14/2019 13:08 Anny Candelaria 1979's left knee surgery, due to injury in 1973 at 28 Years. jaw surgery due to fracture in 1966 at 21 Years. Appendectomy (407799041) in 1952 at 7 Years. bilateral wrist surgeries (child, 6,1995). Social History Social & Psychosocial Habits Alcohol 10/28/2023 Risk Assessment: No Risk Substance Abuse 10/28/2023 Risk Assessment: Denies Substance Abuse Tobacco 10/28/2023 Risk Assessment: Low Risk 10/28/2023 Tobacco Use: Former smoker, quit more Type: Cigarettes 10/28/2023 Tobacco Use: Former smoker, quit more Smokeless tobacco use: Never Type: Cigarettes . Physical Examination Please see preop flow sheet Airway: Mallampati classification: II (soft palate, fauces, uvula visible). Respiratory (more content not included)... Normal [facility] Comment on above: Result Comment: Elec tronically Signed By: MD Kar, Jemima Bella\.br\Date and Time Signed: 11/01/23 18:14 EST Operative Reporton Operative Report SURGERY DATE: 2022 PINION SORTER: Samuel Gonsalez PA-C PREOPERATIVE DIAGNOSIS: Right olecranon fracture POSTOPERATIVE DIAGNOSIS: Right olecranon fracture OPERATION: Right olecranon open reduction internal fixation ANESTHESIA: General ANESTHESIOLOGIST: CINDY Faria ESTIMATED BLOOD LOSS: None SPECIMEN: None COMPLICATIONS: None IMPLANT: 0.062 K-wire x2 with 18 gauge dental wire for a opnidn-tz-obimu tension band construct HISTORY/OPERATIVE INDICATIONS: Yousif is a 77-year-old white male who presents after a mechanical fall. He is seen and evaluated. The displaced olecranon fracture is identified. We did make recommendation for the above procedure. The procedure is undertaken this day. INTRAOPERATIVE PATHOLOGY: Upon dissection of the right elbow from the standard open posterior approach, there is noted to be a comminuted olecranon fracture. The olecranon healing hematoma is taken down. The area is curetted, reduced and visualized. It is then fixed with a cjanwa-ek-xnlky construct as described below. Samuel Gonsalez did provide assistance in seo roles in the operative protocol reducing this patient's exposure to the Operative Suite and a general anesthetic. PROCEDURE: After informed consent is obtained, the risks, complications, reasonable expectations of the above procedure are discussed at length. The patient is taken to the Operative Suite, placed on the operating room table in supine position. At this point, he is given a general anesthetic. A well-padded tourniquet is applied to the right arm. Hand, wrist, forearm sterilely prepped and draped in the usual surgical fashion at which time, the site verification process undertaken with a time-out procedure. The limb is exsanguinated with an Esmarch, tourniquet inflated to 250 mmHg. Curvilinear incision airing to the lateral aspect of the elbow is made. Dissection is carried sharply through skin with careful attention to all bleeding vessels which were electrocauterized. Dissection is carried down and onto the level of the bone. Periosteal elevation at the fracture site. The fracture is opened, curetted, irrigated and reduced. The 0.062 K-wires are then taken in an antegrade fashion across the fracture fragment into the shaft of the ulna. Second pin is taken parallel to this. This is visualized in two planes with C-arm intensification. Adequate reduction is achieved. Drill hole was then made well distal to the fracture site to pass the 18 gauge dental wire. This is done in the standard fashion. Hpdemb-uh-zcgbw is then applied, tensioned accordingly, is cut to length and tamped into place. The K-wire ends are bent accordingly back upon themselves, cut to length and impacted with a small bone tamp as well. At this point, the procedure is deemed adequate and complete. Tidal lavage of the area is undertaken. There is a small fracture fragment with periosteum that is sewn back in with 0 Vicryl. Subcutaneous tissues closed with 3-0 Vicryl. Skin is closed with 4-0 nylon. The wound is injected with several cc of 0.25% Marcaine plain, dressed with Bacitracin, Adaptic, sterile 4x4, sterile ABD, web roll and a posterior splint, Shree wrap. The patient is subsequently extubated, transferred to the [facility] and taken to Post-Anesthesia Care Unit in stable condition. He will be discharged this day. Theresa Villalpando D.O. Dictated: 10/28/2023 [id number] Transcribed: 10/29/2023 cc:Abbie Gtz III, D.O. [facility] Comment on above: Result Comment: Elec tronically Signed By: Theresa Villalpando DO\.br\Date and Time Signed: 10/30/23 11:53 EST Consent for Anesthesiaon Consent for Anesthesia [id number] Normal [facility] Discharge Instructionson Discharge Instructions [id number]#1.00TIFF Normal [facility] Insurance Correspondence Off iceon 10-29-2023 Insurance Correspondence Office [id number]#[id number] Normal [facility] IntraOperative Documentson 1 12-29-2022 IntraOperative Documents [id number] Normal [facility] Main OR Intraoperative Recor don 10-29-2023 Main OR Intraoperative Record IntraOp Document Type FT Summary Primary Physician: Theresa Villalpando DO Finalized Date/Time: 10/29/23 12:32:07 Pt. Name: YOUSIF AGUILAR/Sex: 1945 Male Med Rec #: [id number] Physician: Theresa Villalpando DO Financial #: [id number] Pt. Type: A Room/Bed: [place] [address] Admit/Disch: 10/28/23 10:36:00 - 10/28/23 17:40:00 Institution: Case Times FT Entry 1 Patient Times In Room 10/28/23 14:07:00 Out Room 10/28/23 15:30:00 Procedure Times Start 10/28/23 14:37:00 Stop 10/28/23 15:23:00 Anesthesia Times Start 10/28/23 14:07:00 Stop 10/28/23 15:30:00 Last Modified By: Idris Brooks 10/28/23 15:42:35 General Comments: 10/29/23 Chart opened to review and send charges [facility]FA Case Attendance FT Entry 1 Entry 2 Entry 3 Case Attendee Ricardo Valerio DO, David A Hills PA-C, Todd D Role Performed Anesthesiologist Surgeon - Primary PA/MAIL CLERK Parts Counterperson Time In 10/28/23 14:07:00 10/28/23 14:07:00 10/28/23 14:07:00 Time Out 10/28/23 15:30:00 10/28/23 15:30:00 10/28/23 15:30:00 Procedure ELBOW FRACTURE ELBOW FRACTURE ELBOW FRACTURE ORIF(Right) ORIF(Right) ORIF(Right) Comments DR RUDD SUPERVISING Last Modified By: Idris Brooks Terry T Sweene, Terry T 10/28/23 15:42:39 10/28/23 15:42:39 10/28/23 15:42:39 Entry 4 Entry 5 Entry 6 Case Attendee Idris Brooks Laura C Roll RT, Daniel P Role Performed Mash Filter Operator - Primary Scrub - Primary Primary Care Pediatrician Time In 10/28/23 14:07:00 10/28/23 14:07:00 10/28/23 14:07:00 Time Out 10/28/23 15:30:00 10/28/23 15:30:00 10/28/23 15:30:00 Procedure ELBOW FRACTURE ELBOW FRACTURE ELBOW FRACTURE ORIF(Right) ORIF(Right) ORIF(Right) Comments Last Modified By: Idris Brooks Terry T Sweene, Terry T 10/28/23 15:42:39 10/28/23 15:42:39 10/28/23 15:42:39 Perioperative Protocols FT Pre-Care Text: Implements protective measures prior to operative or invasive procedure, confirms identity before the operative or invasive procedure, verifies operative procedure, surgical site, and laterality Entry 1 Procedure(s) ELBOW FRACTURE Patient Identity Birthday, ID Band ORIF(Right) Verified (select at Check, Patient least 2): Participation Consents / H and P Anesthesia Consent, Operative Site Present Verified Surgery/Procedure Marking Verified Consent, Transfusion Consent Surgical Site Yes Laterality Verified Yes Verified Procedure Verified Yes Correct Patient Yes Position Verified Availability Equipment, Implant, Prep Dry Yes Verified (If X-ray Applicable) PreOp Antibiotic Yes Time Out Ricardo Valerio, Given Participants Pocos , Theresa Montgomery, Wallace AVALOS, Samuel Alfred, Idris Brooks Miller, Laura C, Neo Kitchen Time Out Complete 10/28/23 14:28:00 Outcomes Met? Yes Last Modified By: Idris Brooks 10/28/23 15:42:53 Post-Care Text: The patient is free from signs and symptoms of injury caused by extraneous objects Allergy Information FT Pre-Care Text: Verifies allergies Entry 1 Allergies Reviewed? Yes Allergies Reviewed Self/Patient With Outcomes Met? Yes Last Modified By: Idris Brooks 10/28/23 14:48:18 Post-Care Text: The patient received appropriate medication(s) safely administered during the perioperative period Surgical Procedures FT Entry 1 Procedure Description Procedure ELBOW FRACTURE ORIF Modifiers Right Surgeon Description RIGHT OLECRANON OPEN REDUCTION INTERNAL FIXATION Primary Procedure Yes Primary Surgeon Theresa Villalpando DO Start 10/28/23 14:37:00 Stop 10/28/23 15:23:00 Anesthesia Type General Surgical Service Orthopedics Wound Class 1 - Clean Last Modified By: Idris Brooks 10/28/23 15:42:54 General Case Data FT Pre-Care Text: Classifies surgical wound, implements aseptic technique, initiates traffic control Entry 1 Case Information OR OR 5 FT Case Level Level 4 Wound Class 1 - Clean Specialty Orthopedics ASA Class 3 Preop Diagnosis RIGHT OLECRANON FRACTURE Postop Same As Preop Yes Postop Diagnosis RIGHT OLECRANON FRACTURE Outcomes Met? Yes Last Modified By: Idris Brooks 10/28/23 14:48:33 Post-Care Text: The patient is free from signs and symptoms of infection Skin Assessment (Pre Procedure) FT Pre-Care Text: Implements protective measures to prevent skin/ tissue injury due to thermal or mechanical sources Evaluates for signs and symptoms of physical injury to skin and tissue Entry 1 Skin Integrity Intact, [place], Warm, and Skin Abnormality No Dry Outcomes Met? Yes Last Modified By: Idris Brooks 10/28/23 14:48:45 Post-Care Text: The patient is free from signs and symptoms of injury caused by extraneous objects Patient Positioning FT Pre-Care Text: Identifies physical alterations that require additional precautions for procedure-specific positioning, verifies presence of prosthetics or corrective devices, positions the patient, evaluates the patient for signs and symptoms o (more content not included)... Normal [facility] Preoperative Documentson Preoperative Documents [id number] Normal [facility] XR Elbow 2 Views Righton XR Elbow 2 Views Right Exam Date/Time: 10/28/2023 15:41 EST Reason for Exam: Fracture Report XR Elbow 2 Views Right : 10/28/2023 2:38 PM CLINICAL HISTORY: Fracture. COMPARISON: None available. Intraoperative fluoroscopy was provided for Dr. Theresa Villalpando' procedure. Air kerma mGy: 1.66; fluoroscopy time: 34 seconds No diagnostic images were obtained. Please see Dr. Theresa Villalpando' surgical notes for complete details. Ordering Provider: Theresa Villalpando FINAL REPORT Dictated: 10/29/2023 12:28 pm London Downs DO Signed (Electronic Signature): 10/29/2023 12:28 pm Signed by: London Downs DO Transcribed by: SARAH Technologist: BREONNA Technical Comments Radiation Dose: Chantelr in mGy = 1.66 DAP = na Normal [facility] Consent for Treatmenton 10-02 Consent for Treatment [id number] Normal [facility] Discharge Instructionson Discharge Instructions YOUSIF AGUILAR :1945 Visit Date:10/28/2023 Inpatient Discharge Instructions Your Care Team Admitting Physician - Theresa Villalpando DO Referring Physician - Theresa Villalpando DO Reason for Your Visit RIGHT OLECRANON FRACTURE Tests Performed XR Elbow 2 Views Right -- Results Pending -- Please visit your patient portal for your results or contact your primary care physician. This Is Your Medications List acetaminophen-hydrocodone ([place] 325 mg-5 mg oral tablet) atorvastatin (atorvastatin 20 mg Tab) docusate (Colace 100 mg Cap) hydrochlorothiazide (hydrochlorothiazide 25 mg oral tablet) rivaroxaban (Xarelto 2.5 mg oral tablet) Procedure History Colonoscopy (03/04/2022), EVLT RLSV Dr. 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 What to do next New Follow Up Appointments after Discharge Follow Up with Theresa Villalpando When: 11/10/2023 02:30 PM EST Comments: Appointment has already been scheduled Where: [address] [place] [phone] (1) Medications What How Much When Instructions Next Dose Unchanged acetaminophen-hydrocodone ([place] 325 mg-5 mg oral tablet) See instructions 1 - 2 po q4-6h prn pain Dx: S52.031D Duration: 7 days Pickup at [facility]/pharmacy #[id number] Unchanged atorvastatin (atorvastatin 20 mg Tab) 1 Tablets By Mouth Once a day (at bedtime) Unchanged docusate (Colace 100 mg Cap) 1 Capsules By Mouth 2 times a day as needed for for constipation [id number] Unchanged hydrochlorothiazide (hydrochlorothiazide 25 mg oral tablet) 1 Tablets By Mouth Every day Unchanged rivaroxaban (Xarelto 2.5 mg oral tablet) 2 Tablets By Mouth Every day Pharmacy Information [facility]/pharmacy #[id number]: [address], [place] [id number] [phone] Test Results No qualifying data available. Allergies Contrast Dye (Dizziness) iodine (Unknown) penicillins (Unknown) shellfish (Throat swelling, Trouble breathing) Problems Ongoing - Any problem that you are currently receiving treatment for. 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 DVT PE - Pulmonary embolism Stasis dermatitis and venous ulcer of left lower extremity due to chronic peripheral venous hypertension Stasis dermatitis co-occurrent with venous ulcer of right lower extremity due to chronic peripheral venous hypertension Stasis dermatitis of left lower extremity due to peripheral venous hypertension Stasis dermatitis of right lower extremity due to peripheral venous hypertension Devices Implanted/Removed This Visit Notice: You have devices implanted this visit that may not be MRI compatible. Implanted ELBOW FRACTURE ORIF Elbow R DENTAL WIRE 10/28/2023 [employer]IRE (2), 10/28/2023 Education Materials [place], [place] [facility] OUTPATIENT SURGERY Home Care Instructions Medications You will be given a prescription for pain medication. Please notify the office immediately if you have any allergies to pain medications. About Your Surgical Site Do not remove your bandages or splint. Do not get the incision wet until suture removal. Use brace/splint at all times. Activity You may gradually progress your activities as comfortably tolerated. Continue to ice and elevate your surgical site for the next 48 hours and continue restricted use. Remain off work until your first office visit. Diet You may resume your regular diet as tolerated. Please remember to take your pain medication with food to avoid stomach upset. Increased liquid intake is encouraged for 48 hours after discharged home. Anesthesia Precautions Do not operate a vehicle (automobile, bicycle, motorcycle), machinery or power tools, or drink alcohol beverages for 24 hours. Do not drink any alcohol beverages while you are taking your pain medication. Arrange for a responsible adult to remain with you for at least 24 hours, possibly longer. You may be drowsy and light-headed from the anesthesia and possibly from your pain medication as well. Expectations of Surgery You may have mild to moderate discomfort for the first several days. This should gradually decrease. Any increased discomfort should be reported to the office. Call the office with any of the following: any persistent or heavy bleeding, temperature above 101.5 degrees, increasing redness, swelling or drainage at the operative site, severe and increasing pain a (more content not included)... Normal [facility] Comment on above: Result Comment: Elec tronically Signed By: Flavio PHELPS, Marilou Aguero\.br\Date and Time Signed: 10/28/23 16:53 EST H&P Updateon 10-28-2023 H&P Update [id number]#[id number] F [facility] Main OR PACU I Recordon 10-02 Main OR PACU I Record PACU Phase I Document Type FT Summary Primary Physician: Theresa Villalpando DO Finalized Date/Time: 10/28/23 16:14:58 Pt. Name: YOUSIF AGUILAR Jimbo Gaines/Sex: 1945 Male Med Rec #: [id number] Physician: Theresa Villalpando DO Financial #: [id number] Pt. Type: A Room/Bed: [facility] Admit/Disch: 10/28/23 10:36:00 - Institution: Case Times PACU I FT Pre-Care Text: Identifies barriers to communication and implements measures to provide psychological support Develops individualized plan of care, and ensures continuity of care Maintains patient's dignity and privacy, and maintains patient confidentiality Identifies and reports philosophical, cultural, and spiritual beliefs and values Identifies individual values and wishes concerning care Implements aseptic technique, and administers prescribed antibiotic therapy and immunizing agents as ordered Evaluates postoperative tissue perfusion Implements thermoregulation measures, and monitors body temperature Evaluates postoperative respiratory status Evaluates postoperative cardiac status Evaluates postoperative neurological status Assesses pain control, collaborated in initiating patient-controlled analgesia and implements alternative methods of pain control Verifies allergies, administers prescribed medications and solutions, evaluates response to medications Entry 1 In PACU I 10/28/23 15:31:00 Discharge from PACU 10/28/23 16:01:00 I Outcomes Met? Yes Last Modified By: Soledad PHELPS, Elizabeth 10/28/23 16:14:50 Post-Care Text: The patient demonstrates knowledge of the expected response to the operative or invasive procedure The patient's care is consistent with the individualized perioperative plan of care The patient's right to privacy is maintained The patient's value system, lifestyle, ethnicity, and culture are considered, respected, and incorporated into the perioperative plan of care The patient participates in decisions affecting his or her perioperative plan of care The patient is free from signs and symptoms of infection The patient has wound/tissue perfusion consistent with or improved from baseline levels established preoperatively The patient is at or returning to normothermia at the conclusion of the immediate postoperative period The patient's respiratory function is consistent with or improved from baseline levels established preoperatively The patient's cardiovascular status is consistent with or improved from baseline levels established preoperatively The patient's cardiovascular status is consistent with or improved from baseline levels established preoperatively The patient demonstrates and/or reports adequate pain control throughout the perioperative period The patient received appropriate medication(s), safely administered during the perioperative period Acuity Level PACU I FT Entry 1 Start Time 10/28/23 15:31:00 Stop Time 10/28/23 16:01:00 Acuity Level Acuity Level I Last Modified By: Elizabeth Rowe RN 10/28/23 16:14:57 Finalized By: Elizabeth Rowe RN Document Signatures Signed By: Elizabeth Rowe RN 10/28/23 16:14 Normal [facility] Main OR Preoperative Recordo n 10-28-2023 Main OR Preoperative Record PreOp Document Type FT Summary Primary Physician: Theresa Villalpando DO Finalized Date/Time: 10/28/23 14:12:47 Pt. Name: YOUSIF AGUILAR./Sex: 1945 Male Med Rec #: [id number] Physician: Theresa Villalpando DO Financial #: [id number] Pt. Type: A Room/Bed: [place] [address] Admit/Disch: 10/28/23 10:36:00 - Institution: Case Times PreOp FT Pre-Care Text: Verifies consent for planned procedure, identifies individual values and wishes concerning care, includes family members in perioperative teaching Entry 1 Patient Times. In Pre Surgery 10/28/23 10:40:00 Out Pre Surgery 10/28/23 14:05:00 Outcomes Met? Yes Last Modified By: Idris Brooks 10/28/23 14:12:45 Post-Care Text: The patient participates in decisions affecting his or her perioperative plan of care Finalized By: Idris Brooks Document Signatures Signed By: Idris Brooks 10/28/23 14:12 Normal [facility] Monitor Recordon 10-28-2023 Monitor Record [id number]#[id number] Normal [facility] Patient Education - Texton 1 12-28-2022 Patient Education - Text [place], [place] [facility] OUTPATIENT SURGERY Home Care Instructions Medications You will be given a prescription for pain medication. Please notify the office immediately if you have any allergies to pain medications. About Your Surgical Site Do not remove your bandages or splint. Do not get the incision wet until suture removal. Use brace/splint at all times. Activity You may gradually progress your activities as comfortably tolerated. Continue to ice and elevate your surgical site for the next 48 hours and continue restricted use. Remain off work until your first office visit. Diet You may resume your regular diet as tolerated. Please remember to take your pain medication with food to avoid stomach upset. Increased liquid intake is encouraged for 48 hours after discharged home. Anesthesia Precautions Do not operate a vehicle (automobile, bicycle, motorcycle), machinery or power tools, or drink alcohol beverages for 24 hours. Do not drink any alcohol beverages while you are taking your pain medication. Arrange for a responsible adult to remain with you for at least 24 hours, possibly longer. You may be drowsy and light-headed from the anesthesia and possibly from your pain medication as well. Expectations of Surgery You may have mild to moderate discomfort for the first several days. This should gradually decrease. Any increased discomfort should be reported to the office. Call the office with any of the following: any persistent or heavy bleeding, temperature above 101.5 degrees, increasing redness, swelling or drainage at the operative site, severe and increasing pain at the operative site, persistent vomiting. About your follow-up office visit You will be given a card with your post-operative date and time for this appointment. Report any problems prior to that time. Driving: Do not drive. __ Theresa Villalpando DO [facility] [address] [place] [address] Reviewed: 03-08 [facility] Progress Note-Physicianon Progress Note-Physician Patient: YOUSIF AGUILAR Age: 77 years Sex: Male : 1945 Associated Diagnoses: None Author: Theresa Villalpando DO Postoperative Information Procedure: R Olecranon ORIF Preoperative Diagnosis: R olecranon fx. Postoperative Diagnosis: same. Performed by: camila. Parts Counterperson: Wallace. Specimens Removed: none. Prosthesis: tension band. . Estimated Blood Loss: 0 ml. Complications: None. Anesthesia type: General. Normal [facility] Comment on above: Result Comment: Elec tronically Signed By: Theresa Villalpando DO\Date and Time Signed: 10/28/23 15:37 EST CHEMISTRYOrdered By: SYSTEM SYSTEM on 10-27-2023 Potassium [Moles/Vol] 3.6 mmol/L Normal 3.5 - 5.3 mmol/L [facility] [place] Consent for Procedure/Surger yon 10-27-2023 Consent for Procedure/Surgery [id number]#1.00TIFF [facility] Consent for Treatmenton 10-02 Consent for Treatment [id number]#1.00TIFF [facility] Physician Orderon 10-27-2023 Physician Order [id number]#1.00TIFF [facility] Potassiumon 10-27-2023 Potassium [Moles/Vol] 3.6 mmol/L Normal 3.5-5.3 [facility] Comment on above: Performed By: #### 2 [id number] #### [facility] [address] [place] [address] XR Chest 2 Viewson 3 XR Chest 2 Views Exam Date/Time: 10/22/2023 12:51 EST Reason for Exam: P.A.T. Report IMPRESSION: NO EVIDENCE OF ACTIVE CHEST DISEASE. CLINICAL HISTORY: P.A.T.. COMMENT: The heart is normal in size. There is mild tortuosity of thoracic aorta and there is calcification of the aortic arch. The mediastinum is otherwise unremarkable. No infiltration nor pleural effusion is evident. Ordering Provider: Rudd Ahmad FINAL REPORT Dictated: 10/24/2023 8:53 am Steve Dill M.D. Signed (Electronic Signature): 10/24/2023 8:53 am Signed by: Steve Dill M.D. Transcribed by: SARAH Technologist: BREONNA Technical Comments Radiation Dose: Ka,r in mGy = na DAP = na Normal [facility] Auto Diffon 10-22-2023 Basophils/100 WBC (Bld) 0.3 % Normal 0.0-2.0 [facility] Comment on above: Order Comment: Order Added by Discern Expert. Performed By: #### 2 764064, 6635730, 1807541, [id number] ####[address] [address] Basophils/Leukocytes Auto (Bld) [Pure # fraction] 0.0 E9/L Normal 0.0-0.2 [facility] Comment on above: Order Comment: Order Added by Discern Expert. Performed By: #### 2 001340, 2339416, 9560172, [id number] ####[address] [address] Eosinophils/100 WBC (Bld) 3.6 % Normal 0.0-8.0 [facility] Comment on above: Order Comment: Order Added by Discern Expert. Performed By: #### 2 758334, 3002187, 1627403, [id number] ####[address] [address] Eosinophils/Leukocyt es Auto (Bld) [Pure # fraction] 0.3 E9/L Normal 0.0-0.5 [facility] Comment on above: Order Comment: Order Added by Discern Expert. Performed By: #### 2 016484, 8831710, 5320399, [id number] ####[address] [address] Lymphocytes/100 WBC (Bld) 15.5 % Normal 14.0-50.0 [facility] Comment on above: Order Comment: Order Added by Discern Expert. Performed By: #### 2 540192, 0001496, 0348191, [id number] ####[address] [place] [address] Lymphocytes/Leukocyt es Auto (Bld) [Pure # fraction] 1.1 E9/L Normal 1.0-4.0 [facility] Comment on above: Order Comment: Order Added by Discern Expert. Performed By: #### 2 981617, 8173386, 9465468, 91831743 ####[address] [place] [address] Monocytes/100 WBC (Bld) 9.5 % Normal 4.0-14.0 [facility] Comment on above: Order Comment: Order Added by Discern Expert. Performed By: #### 2 954143, 1700704, 4001260, 34006850 ####[address] [address] Monocytes/Leukocytes Auto (Bld) [Pure # fraction] 0.7 E9/L Normal 0.2-1.0 [facility] Comment on above: Order Comment: Order Added by Discern Expert. Performed By: #### 2 804024, 9378752, 9327219, [id number] ####[address] [address] Neutrophils/100 WBC (Bld) 71.1 % Normal 36.0-75.0 [facility] Comment on above: Order Comment: Order Added by Discern Expert. Performed By: #### 2 843515, 8013482, 3334480, 04236657 ####[address] [address] Neutrophils/Leukocyt es Auto (Bld) [Pure # fraction] 5.2 E9/L Normal 2.0-7.5 [facility] Comment on above: Order Comment: Order Added by Discern Expert. Performed By: #### 2 799932, 5536150, 7287006, 29244510 ####[address] [place] [address] BMPon 10-22-2023 Anion gap [Moles/Vol] 13 mmol/L Normal 6-16 [facility] Comment on above: Performed By: #### 2 229563, 4626687, 0098892, 59404435 ####[facility] [address] [place] [address] Calcium [Mass/Vol] 8.4 mg/dL Low 8.9-11.1 [facility] Comment on above: Performed By: #### 2 324315, 7042220, 7846250, 47179950 ####[facility] [address] [place] [address] Chloride [Moles/Vol] 97 mmol/L Low 101-111 [facility] Comment on above: Performed By: #### 2 119040, 4031909, 7868708, 05865157 ####[facility] [address] [facility] [place] [address] CO2 [Moles/Vol] 31 mmol/L Normal 21-[address] [facility] Comment on above: Performed By: #### 2 617026, 4237576, 1111926, 05747171 ####[facility] [address] [address] Creatinine [Mass/Vol] 0.9 mg/dL Normal 0.5-1.3 [facility] Comment on above: Performed By: #### 2 040396, 8125317, 5167170, 43310604 ####[facility] [address] [place] [address] Glucose [Mass/Vol] 105 mg/dL Normal 55-199 [facility] Comment on above: Result Comment: If t his glucose result represents a fasting glucose, interpretation should refer to the following reference range: 55-99 mg/dL Performed By: #### 2 808306, 7302280, 5472795, [id number] ####[facility] [address] [facility], [place] [address] Potassium [Moles/Vol] 2.8 mmol/L Abnormal 3.5-5.3 [facility] Comment on above: Result Comment: Crit ical Result verified by repeat analysis\Critical Result S_K:2.8 Called to CARIDAD DEL CID AT [facility] by MITALI DUBON And Read Back For Confirmation at: 10/22/2023 13:36:24 Performed By: #### 2 905827, 6226282, 7764956, 72298535 ####[facility] [address] [place] [address] Sodium [Moles/Vol] 138 mmol/L Normal 135-145 [facility] Comment on above: Performed By: #### 2 646459, 2272315, 7125905, 26158220 ####[facility] [address] [place] [address] Urea nitrogen [Mass/Vol] 17 mg/dL Normal 5-21 [facility] Comment on above: Performed By: #### 2 511083, 5362399, 6520894, 51635959 ####[facility] [address] [place] [address] Urea nitrogen/Creatinine [Mass ratio] 19 No Units Normal 10-20 [facility] Comment on above: Performed By: #### 2 396474, 7081381, 8336631, [id number] ####[facility] [address] [place] [address] CBC w/ Auto Diffon 3 Erythrocyte distribution width (RBC) [Ratio] 14.1 % Normal 10.9-14.2 [facility] Comment on above: Performed By: #### 2 559744, 7343440, 1611397, 42839283 ####[address] [address] Hematocrit (Bld) [Volume fraction] 32.6 % Low 37.7-49.0 [facility] Comment on above: Performed By: #### 2 835077, 7748423, 4795634, 72250871 ####[address] [place] [address] Hemoglobin (Bld) [Mass/Vol] 10.9 g/dL Low 13.5-17.5 [facility] Comment on above: Performed By: #### 2 157071, 0989954, 1387143, 52736713 ####[address] [place] [address] MCH (RBC) [Entitic mass] 28.9 pg Normal 27.0-34.0 [facility] Comment on above: Performed By: #### 2 163464, 6746199, 7201054, 70031128 ####[address] [address] MCHC (RBC) [Mass/Vol] 33.5 g/dL Normal 31.4-36.0 [facility] Comment on above: Performed By: #### 2 104948, 8932571, 9684271, 30302171 ####[address] [address] MCV (RBC) [Entitic vol] 86.3 fL Normal 80.0-100.0 [facility] Comment on above: Performed By: #### 2 871757, 0801683, 2102170, 44305031 ####[address] [address] Platelet mean volume (Bld) [Entitic vol] 8.8 fL Normal 6.4-10.8 [facility] Comment on above: Performed By: #### 2 690398, 8913034, 2439197, 08872373 ####[address] [address] Platelets (Bld) [#/Vol] 245.0 E9/L Normal 150.0-500.0 [facility] Comment on above: Performed By: #### 2 394589, 6370241, 1131384, 50869127 ####[address] [address] RBC (Bld) [#/Vol] 3.8 E12/L Low 4.3-5.9 [facility] Comment on above: Performed By: #### 2 319340, 7619206, 8855558, 17204295 ####[address] [address] WBC corrected for nucl RBC Auto (Bld) [#/Vol] 7.4 E9/L Normal 4.0-11.0 [facility] Comment on above: Performed By: #### 2 [id number], [id number], [id number], [id number] ####[facility] [address] [place] [address] CHEMISTRYOrdered By: SYSTEM SYSTEM on 10-22-2023 Anion gap [Moles/Vol] 13 mmol/L Normal 6 - 16 mEq/L [facility] Calcium [Mass/Vol] 8.4 mg/dL Low 8.9 - 11. 1 mg/dL [facility] Chloride [Moles/Vol] 97 mmol/L Low 101 - 1 11 mmol/L [facility] CO2 [Moles/Vol] 31 mmol/L Normal 21 - 31 mmol/L [facility] Creatinine [Mass/Vol] 0.9 mg/dL Normal 0.5 - 1.3 mg/dL [facility] GFR/1.73 sq M.predicted among non-blacks MDRD (S/P/Bld) [Vol rate/Area] 89 mL/min/1.73 m2 Normal >=59mL/min/ 1.73 m2 [facility] Comment on above: Interpretive Data: C hronic kidney disease could be indicated at eGFR's of less than 60 mL/min/1.73m2. Kidney failure is indicated at less than 15 mL/min/1.73m2. Glucose [Mass/Vol] 105 mg/dL Normal 55 - 199 mg/dL [facility] Remisol Comment on above: Interpretive Data: I f this glucose result represents a fasting glucose, interpretation should refer to the following reference range: 55-99 mg/dL Potassium [Moles/Vol] 2.8 mmol/L Invalid Interpretation Code 3.5 - 5.3 mmol/L [facility] Remisol Comment on above: Result Comment: Crit ical Result verified by repeat analysis\Critical Result S_K:2.8 Called to CARIDAD DEL CID AT [facility] by MITALI DUBON And Read Back For Confirmation at: 10/22/2023 13:36:24 Sodium [Moles/Vol] 138 mmol/L Normal 135 - 145 mmol/L [facility] Urea nitrogen [Mass/Vol] 17 mg/dL Normal 5 - 21 mg/dL [facility] Urea nitrogen/Creatinine [Mass ratio] 19 mg/mg Normal 10 - 20 [facility] Consent for Treatmenton 10-02 Consent for Treatment [id number] Normal [facility] HEMATOLOGYOrdered By: SYSTEM SYSTEM on 10-22-2023 Basophils/100 WBC (Bld) 0.3 % Normal 0.0 - 2.0 % [facility] HemeAutoSS Basophils/Leukocytes Auto (Bld) [Pure # fraction] 0.0 E9/L Normal 0.0 - 0.2 E9/L [facility] HemeAutoSS Eosinophils/100 WBC (Bld) 3.6 % Normal 0.0 - 8.0 % [facility] HemeAutoSS Eosinophils/Leukocyt es Auto (Bld) [Pure # fraction] 0.3 E9/L Normal 0.0 - 0.5 E9/L [facility] HemeAutoSS Lymphocytes/100 WBC (Bld) 15.5 % Normal 14.0 - 50.0 % [facility] HemeAutoSS Lymphocytes/Leukocyt es Auto (Bld) [Pure # fraction] 1.1 E9/L Normal 1.0 - 4.0 E9/L [facility] HemeAutoSS Monocytes/100 WBC (Bld) 9.5 % Normal 4.0 - 14.0 % [facility] HemeAutoSS Monocytes/Leukocytes Auto (Bld) [Pure # fraction] 0.7 E9/L Normal 0.2 - 1.0 E9/L [facility] HemeAutoSS Neutrophils/100 WBC (Bld) 71.1 % Normal 36.0 - 75.0 % [facility] HemeAutoSS Neutrophils/Leukocyt es Auto (Bld) [Pure # fraction] 5.2 E9/L Normal 2.0 - 7.5 E9/L [facility] HemeAutoSS HEMATOLOGYOrdered By: Neli Fowler on 10-22-2023 Erythrocyte distribution width (RBC) [Ratio] 14.1 % Normal 10.9 - 14.2 % [facility] HemeAutoSS Hematocrit (Bld) [Volume fraction] 32.6 % Low 37.7 - 49.0 % [facility] HemeAutoSS Hemoglobin (Bld) [Mass/Vol] 10.9 g/dL Low 13.5 - 17.5 gm/dL [facility] HemeAutoSS MCH (RBC) [Entitic mass] 28.9 pg Normal 27.0 - 34.0 pg [facility] HemeAutoSS MCHC (RBC) [Mass/Vol] 33.5 g/dL Normal 31.4 - 36.0 gm/dL [facility] HemeAutoSS MCV (RBC) [Entitic vol] 86.3 fL Normal 80.0 - 100.0 fL [facility] HemeAutoSS Platelet mean volume (Bld) [Entitic vol] 8.8 fL Normal 6.4 - 10.8 fL [facility] HemeAutoSS Platelets (Bld) [#/Vol] 245.0 E9/L Normal 150.0 - 500.0 E9/L [facility] HemeAutoSS RBC (Bld) [#/Vol] 3.8 E12/L Low 4.3 - 5.9 E12/L [facility] HemeAutoSS WBC corrected for nucl RBC Auto (Bld) [#/Vol] 7.4 E9/L Normal 4.0 - 11.0 E9/L [facility] HemeAutoSS eGFRon 10-22-2023 GFR/1.73 sq M.predicted among non-blacks MDRD (S/P/Bld) [Vol rate/Area] 89 mL/min/1.73 m2 Normal >=59 [facility] Comment on above: Order Comment: Order added by Discern Expert. Result Comment: Publicity Person mercy kidney disease could be indicated at eGFR's of less than 60 mL/min/1.73m2. Kidney failure is indicated at less than 15 mL/min/1.73m2. Performed By: #### 2 [id number] ####[facility] [address] [place] [address] Consent for Treatmenton 10-01 Consent for Treatment [id number] Normal [facility] Discharge Instructionson Discharge Instructions [id number] Normal [facility] ED Clinical Summaryon 2022 ED Clinical Summary (Inserted Image. Clarissa ble to display) [address] [address] ED Clinical Summary Person Information Name: YOUSIF AGUILAR Olga [place] Age: 77 Years : 1945 Sex: Male Language: Pashto PCP: Abbie Gtz III, DO Marital Status: MRN: [id number] Visit Id: Visit Reason: Trauma - minor; Fall; Elbow pain-swelling; FALL Speciality: Acuity: 3 Enc Type: Emergency Med Service: Emergency Arrival: 10/17/2023 21:13:58 Discharge: 10/17/2023 23:43:28 LOS: 000 02:30 Checkin: 10/17/2023 21:13:58 Checkout: 10/17/2023 23:43:28 Dispo Type: Home (Routine DC) EVENTS: Event Name Event Status Request Date/Time Start Date/Time Complete Date/Time Arrive Complete 10/17/2023 21:13:58 10/17/2023 21:13:58 10/17/2023 21:13:58 Document Home Meds Request 10/17/2023 21:13:58 Triage Complete 10/17/2023 21:13:58 10/17/2023 21:21:19 10/17/2023 21:21:19 Bed Assign Complete 10/17/2023 21:13:58 10/17/2023 21:13:58 10/17/2023 21:13:58 Dr Exam Complete 10/17/2023 21:13:58 10/17/2023 21:16:34 10/17/2023 21:16:34 RN Exam Complete 10/17/2023 21:13:58 10/17/2023 22:10:00 10/17/2023 22:10:00 Registration Complete 10/17/2023 21:16:34 10/17/2023 21:25:28 10/17/2023 21:25:28 Reg Complete Request 10/17/2023 21:25:28 Reg Bed Request Complete 10/17/2023 21:25:28 10/17/2023 21:25:28 10/17/2023 21:25:28 Trauma II Request 10/17/2023 21:30:23 X-Ray Complete 10/17/2023 21:31:55 10/17/2023 21:36:20 10/17/2023 21:54:13 Wet Read Request 10/17/2023 21:54:13 Patient Care Complete 10/17/2023 22:34:32 10/17/2023 22:50:41 Discharge Complete 10/17/2023 22:54:42 10/17/2023 23:43:34 10/17/2023 23:43:34 Transfer Complete 10/17/2023 23:43:34 10/17/2023 23:43:34 10/17/2023 23:43:34 ADDRESS: [address] [place] [id number] PHYS DOC NOTES: MEDICAL INFORMATION: Prescriptions Given: New Medications [facility] 1986, [address] [facility] [place], [place] [id number], [phone] acetaminophen-hydrocodone ([place] 325 mg-5 mg oral tablet) 1 Tablets By Mouth every 6 hours as needed for pain for 3 Days. Refills: 0. Medications to Continue with No Changes Other Medications atorvastatin (atorvastatin 20 mg Tab) 1 Tablets By Mouth once a day (at bedtime). hydrochlorothiazide (hydrochlorothiazide 25 mg oral tablet) 1 Tablets By Mouth every day. rivaroxaban (Xarelto 2.5 mg oral tablet) 2 Tablets By Mouth every day. PATIENT EDUCATION INFORMATION: Instructions: Olecranon Fracture Follow up: With: Address: When: Theresa [address] [place] [address] Business (1) In 3 days 10/20/2023 Comments: You can use the pain medication every 6 hours as needed for pain. Please follow-up with your primary care doctor addition to orthopedics for further evaluation management. Please return to the ED for any new or worsening symptoms. With: Address: When: Abbie Gtz [address] [facility], [place] [address] Business (1) In 3 days DIAGNOSIS: Olecranon fracture Normal [facility] ED Note-Physicianon 10-18-20 ED Note-Physician Basic Information Time Seen: Bryce Funk DO 10/17/2023 21:16 Chief Complaint Pt arrives via [facility] for a fall. Pt states he was in his kitchen when he lost balance fallling onto his R elbow; swelling noted to the site. Pulses are intact. Pt on zerelto. Denies any head injury or pain in the head or neck. History of Present Illness Patient is a 77-year-old male with past medical history of hyperlipidemia, DVT on Xarelto presenting to the ED for evaluation of right elbow pain. Patient states he was walking in his house had a transition between a carpet and a hardwood floor and slipped fell directly onto his right elbow. Patient denied hitting his head, loss of consciousness. Denies any other complaints. Patient denies chest pain, shortness of breath, dizziness or lightheadedness prior to the fall. Review of Systems A 10 point review of systems is negative except as noted above. Medical and Surgical History: Reviewed and noted Social history: Lives at home Tobacco: Denies Physical Exam Vitals & Measurements T: 36.5 ?C(Oral) HR: 82(Peripheral) RR: 18 BP: 174/94 SpO2: 96% HT: 177.80 cm WT: 133.1 kg BMI: 42.1 Airway: Intact Breathing: Equal breath sounds bilaterally Circulation: 2+ radial, 2+ DP pulses noted bilaterally Disability: GCS 15, neuro intact to the upper and lower extremities bilaterally General: Well developed, non toxic appearing, no acute distress HEENT: Head atraumatic, Mucosa moist, hearing grossly normal Neck: No JVD, tracheal deviation Cardiac: Regular rate, rhythm, no murmurs, or gallops, 2+ radial pulses Respiratory: Lungs clear to auscultation B/L, normal respiratory effort Abdomen: Soft non tender, no rebound or guarding, no peritoneal signs Extremities: There is palpation of the right elbow with swelling noted, no pain on palpation of the shoulder, clavicle, wrist, moves all other extremities without difficulty Neurologic: Alert and oriented, speech clear Skin: No rashes or lesions Psych: Appropriate mood and behavior Procedure Splinting: Performed by Jimbo Aguirre PA-C posterior long-arm splint is applied patient neurovascular intact pre and post splint application. Medical Decision Making MEDICAL DECISION MAKING Number and Complexity of Problems Differential Diagnosis: [] [facility] Data External documents reviewed: [] My EKG interpretation: [] My CT interpretation: [] My X-ray interpretation: [] My Ultrasound interpretation: [] Decision rules/scores evaluated: [] Discussed with: [] Treatment and Disposition ED Course: Patient is a 77-year-old male presenting to the ED for evaluation of right elbow pain after a fall. Patient nontoxic in arrival, no acute distress. Due to his age trauma level 2 was called. Patient has no other complaints other than the right elbow pain. X-rays obtained which shows a nondisplaced olecranon fracture. He is placed in a posterior long-arm splint and a sling. Patient was able to ambulate in the department without difficulty is comfortable with discharge home. He is to follow-up with orthopedics is given a short course of pain medication for home. Shared decision making: [] Code status: [] Assessment/Plan Olecranon fracture (S52.023A: Displaced fracture of olecranon process without intraarticular extension of unspecified ulna, initial encounter for closed fracture) Orders: acetaminophen-hydrocodone , 1 tab(s), Oral, q6hr for pain for 3 day(s), 10 tab(s), Refill(s) 0, [facility] 1985, 177.8, cm, 10/17/23 21:21:00 EST, Height/Length Dosing, 133.1, kg, 10/17/23 21:21:00 EST, Weight Dosing Sling Apply XR Elbow 3+ Views Right Disposition Plan Discharge Prescription List Prescriptions [place] 325 mg-5 mg oral tablet, 1 tab(s), Oral, q6hr, PRN Follow-up With When Contact Information Theresa Villalpando In 3 days 10/20/2023 EST [address] [place] [address]- Business (1) Additional Instructions: You can use the pain medication every 6 hours as needed for pain. Please follow-up with your primary care doctor addition to orthopedics for further evaluation management. Please return to the ED for any new or worsening symptoms. Abbie Gtz In 3 days [address] [facility] [address] 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 Normal [facility] Comment on above: Result Comment: Elec tronically Signed By: Bryce Funk DO\.br\Date and Time Signed: 10/17/23 23:18 EST ED Patient Education Noteon 10-18-2023 ED Patient Education Note Orthopedics Olecranon Fracture An olecranon fracture is a break in one of the bones of your elbow. Three bones make up your elbow. These include the two bones of your lower arm (ulna and radius) and the single bone of your upper arm (humerus). The tip of your elbow (olecranon) is part of your ulna. You can feel this hard tip when you bend your elbow. It is easily injured because it has very little padding over it. What are the causes? Olecranon fractures commonly occur after falling on a hard surface with a bent elbow. Other causes include: ? A forceful hit to the elbow. ? A motor vehicle collision. ? Falling onto an outstretched arm. ? A forceful twist to the elbow. What increases the risk? You are more likely to develop this condition if you: ? Participate in contact sports or sports in which falls on hard surfaces are common. ? Are older. This is when falls are more common. ? Have thin or weak bones. What are the signs or symptoms? Symptoms of this condition include: ? Severe pain, especially when you try to move your elbow. ? Swelling. ? Bruising. ? Stiffness. ? Pain or tenderness in your elbow when it is touched. ? Numbness in your fingers. How is this diagnosed? This condition is diagnosed based on a physical exam and X-rays. How is this treated? Treatment depends on the severity and location of the fracture. Many fractures can be treated without surgery. Treatment may include: ? Taking pain medicine. ? Icing the injury to reduce swelling. ? Keeping the elbow still with a cast, splint, or sling (immobilization). ? Doing physical therapy to restore movement. If the elbow is not stable or if bones are out of place, you may need surgery. You may have pins, wires, screws, or plates inserted into the broken bone. Then, you will need to wear a splint, cast, or sling and have physical therapy to restore movement. Follow these instructions at home: Medicines ? Take nlbq-qxh-fuqhgey and prescription medicines only as told by your health care provider. ? Ask your health care provider if the medicine prescribed to you: ? Requires you to avoid driving or using heavy machinery. ? Can cause constipation. You may need to take actions to prevent or treat constipation, such as: ? Drink enough fluid to keep your urine pale yellow. ? Take urzl-pur-ihjwdtw or prescription medicines. ? Eat foods that are high in fiber, such as beans, whole grains, and fresh fruits and vegetables. ? Limit foods that are high in fat and processed sugars, such as fried or sweet foods. If you have a splint or sling: ? Wear the splint or sling as told by your health care provider. Remove it only as told by your health care provider. ? Loosen the splint or sling if your fingers tingle, become numb, or turn cold and blue. ? Keep the splint or sling clean and dry. If you have a cast: ? Do not put pressure on any part of the cast until it is fully hardened. This may take several hours. ? Do not stick anything inside the cast to scratch your skin. Doing that increases your risk of infection. ? Check the skin around the cast every day. Tell your health care provider about any concerns. ? You may put lotion on dry skin around the edges of the cast. Do not put lotion on the skin underneath the cast. ? Keep the cast clean and dry. Bathing ? Do not take baths, swim, or use a hot tub until your health care provider approves. Ask your health care provider if you may take showers. You may only be allowed to take sponge baths. ? If the cast, splint, or sling is not waterproof: ? Do not let it get wet. ? Cover it with a waterproof covering when you take a bath or shower. Managing pain, stiffness, and swelling ? If directed, put ice on the injured area. ? If you have a removable splint or sling, remove it as told by your health care provider. ? Put ice in a plastic bag. ? Place a towel between your skin and the bag or between your cast and the bag. ? Leave the ice on for 20 minutes, 2?3 times a day. ? Move your fingers often to reduce stiffness and swelling. ? Raise (elevate) the injured area above the level of your heart while you are sitting or lying down. Activity ? Return to your normal activities as told by your health care provider. Ask your health care provider what activities are safe for you. You may not be able to lift anything with your arm for several weeks. ? Do exercises as told by your health care provider or physical therapist. General instructions ? Do not use any products that contain nicotine or tobacco, such as cigarettes, e-cigarettes, and chewing tobacco. These can delay bone healing. If you need help quitting, ask your health care provider. ? Ask your health care provider when it is safe to drive if you have a cast, splint, or sling on your arm. ? Keep all follow-up visits as told by your health care provider. This is import (more content not included)... Normal [facility] ED Patient Summaryon 023 ED Patient Summary (Inserted Image. Clarissa ble to display) [place] [id number] Patient Discharge Instructions Person Information Name: YOUSIF AGUILAR Age: 77 Years Arrival Date: 10/17/2023 21:13:58 Discharge Diagnosis: Olecranon fracture Primary Care Physician: Abbie Gtz III, DO Provider Information Primary Provider: Bryce Funk DO Advanced Dye Room Helper:None The exam and treatment you received in the Emergency Department were for an urgent problem and are not intended as complete care. It is important that you follow up with a doctor, nurse practitioner, or physician?s assistant casino shift manager for ongoing care. If your symptoms become worse or you do not improve as expected and you are unable to reach your usual health care provider, you should return to the Emergency Department. We are available 24 hours a day. YOUSIF AGUILAR has been given the following list of patient education materials, prescriptions and follow-up instructions: Follow-up Instructions: With: Address: When: [address] [place] [address] [address] (1) In 3 days 10/20/2023 Comments: You can use the pain medication every 6 hours as needed for pain. Please follow-up with your primary care doctor addition to orthopedics for further evaluation management. Please return to the ED for any new or worsening symptoms. With: Address: When: Abbie Gtz [address] [facility], [facility], [place] [address] [address] (1) In 3 days In the event that this physician does not participate in your insurance network, please consult with your insurance company to find a nearby participating provider. Patient Education Materials: William Fracture A MESSAGE TO ALL PATIENTS REGARDING OPIOIDS PRESCRIPTION OPIOIDS: WHAT YOU NEED TO KNOW Prescription opioids can be used to help relieve aywrzvpd-je-luwqpp pain and are often prescribed following a surgery or injury, or for certain health conditions. These medications can be an important part of the treatment but also come with serious risks. It is important to work with your healthcare provider to make sure you are getting the safest, most effective care. WHAT ARE THE RISKS AND SIDE EFFECTS OF OPIOID USE? Prescription opioids carry serious risks of addiction and overdose, especially with prolonged use. An opioid overdose, often marked by slowed breathing, can cause sudden . The use of prescription opioids can have a number of side effects as well, even when taken as directed: ? Tolerance?meaning you might need to take more of the medication for the same pain relief ? Physical dependence?meaning you have symptoms of withdrawal when a medication is stopped ? Increased sensitivity to pain ? Constipation ? Nausea, vomiting, and dry mouth ? Sleepiness and dizziness ? Confusion ? Depression ? Low levels of testosterone that can result in lower sex drive, energy, and strength ? Itching and sweating RISKS ARE GREATER WITH: ? History of drug misuse, substance use disorder, or overdose ? Mental health conditions (such as depression or anxiety) ? Sleep apnea ? Older age (65 years and older) ? Avoid alcohol while taking prescription opioids. Also, unless specifically advised by your health care provider, medications to avoid include: ? Benzodiazepines (such as Xanax or Valium) ? Muscle relaxants (such as Soma or Flexeril) ? Hypnotics (such as Ambien or Lunesta) ? Other prescription opioids KNOW YOUR OPTIONS Talk to your health care provider about ways to manage your pain that don?t involve prescription opioids. Some of these options may actually work better and have fewer risks and side effects. Options may include: ? Pain relievers such as acetaminophen, ibuprofen, and naproxen ? Some medication that are also used for depression or seizures ? Physical therapy and exercise ? Cognitive behavioral therapy, a psychological, goal-directed approach, in which patients learn how to modify physical, behavioral, and emotional triggers of pain and stress. IF YOU ARE PRESCRIBED OPIOIDS FOR PAIN: ? Never take opioids in greater amounts or more often than prescribed. ? Follow up with your primary health care provider. o Work together to create a plan on how to manage your pain. o Talk about ways to help manage your pain that don?t involve prescription opioids. o Talk about any and all concerns and side effects. ? Help prevent misuse and abuse o Never sell or share prescription opioids. o Never use another person?s prescription opioids. ? Store prescription opioids in a secure place and out of reach of others (this may include visitors, children, friends, and family). ? Safely dispose of unused prescription opioids: Find your community drug take-back program or your pharmacy mail-back program, or flush them down the toilet, following g (more content not included)... Normal [facility] ED Traumaon 10-18-2023 ED Trauma [id number] Normal [facility] XR Elbow 3+ Views Righton XR Elbow 3+ Views Right Exam Date/Time: 10/17/2023 21:54 EST Reason for Exam: Pain, Traumatic Report IMPRESSION: MILDLY DISPLACED OLECRANON FRACTURE. EXAM: XR Elbow 3+ Views Right DATE: 10/17/2023 9:36 PM CLINICAL HISTORY: Pain, Traumatic. COMPARISON: None available. TECHNIQUE: AP, lateral, and oblique radiographs of the right elbow were obtained. FINDINGS: A mildly displaced transverse intra-articular fracture is present through the mid olecranon, with approximately 4 to 5 mm displacement suggested on the lateral view. There is no other fracture, significant degenerative changes, dislocation, worrisome bone destruction, radiodense foreign bodies, or other posttraumatic complication identified elsewhere. Ordering Provider: Bryce Funk FINAL REPORT Dictated: 10/18/2023 10:26 am Kavin Duran MD Signed (Electronic Signature): 10/18/2023 10:26 am Signed by: Kavin Duran MD Transcribed by: SARAH Technologist: MINA Technical Comments Radiation Dose: Ka,r in mGy = na DAP = na [facility] Pre-Arrival Noteon 3 Pre-Arrival Note Pre-Arrival Summary Name: , maritza Current Date: 10/17/2023 21:14:37 EST Gender: Male Date of : Age: 77 Pre-Arrival Type: EMS ETA: 10/17/2023 21:06:00 EST Primary Care Physician: Presenting Problem: T2-fall, elbow pain Pre-Arrival User: Nicholas Rosario RN Referring Source: Location: [place] Completion Date/Time: 10/17/2023 21:06:00 [facility] Emergency Department Pre-Hospital Report Form ____ Vital Signs: Pre-Hospital Report: slipped on kitchen floor falling to R elbow, swelling noted. denies hitting head or LOC. on xarelto. no other pain/complaints Treatment in Route: none Response to Treatment: Misc. Issues: [facility] Nursing Note - Woundon 08-12 Nursing Note - Wound 170.71.844.408.0997 [id number]#1.00CD:1 27 [facility] Consent for Procedure/Surger yon 08-05-2023 Consent for Procedure/Surgery [id number]#1.00CD:1 27 [facility] Consent for Treatmenton Consent for Treatment [id number]#1.00CD:12 7 [facility] Physician Orderon 08-05-2023 Physician Order [id number] [id number]#1.00CD:1 27 [facility] Nursing Note - Woundon 07-31 Nursing Note - Wound 170.71.138.563.1509 [id number]#1.00CD:1 27 [facility] Physician Orderon 07-31-2023 Physician Order [id number]#1.00CD:1 27 [facility] Consent for Treatmenton 07-02 Consent for Treatment [id number]#1.00CD:12 7 [facility] Multi-Wound Charton 07-29-20 Multi-Wound Chart 170.71.121.117.23056 09471 [id number]#1.00CD:1 27 [facility] Nursing Assessment - [place]ound[place] 07-29-2023 Nursing Assessment - Wound [id number]#1.00CD:1 27 [facility] Procedure - [place]ound[place] 07-29-20 Procedure - Wound 170.71.121.117.84950 43188 [id number]#1.00CD:1 27 [facility] Consent for Treatmenton 07-02 Consent for Treatment [id number]#1.00CD:12 7 [facility] Multi-Wound Charton 07-22-20 Multi-Wound Chart 170.71.121.117.29301 14119 [id number]#1.00CD:1 27 [facility] Nursing Assessment - [place] 07-22-2023 Nursing Assessment - Wound [id number]#1.00CD:1 27 [facility] Nursing Note - [place]ound[place] 07-22 Nursing Note - Wound 170.71.115.413.0740 [id number] [id number]#1.00CD:1 27 [facility] Physician Orderon 07-22-2023 Physician Order [id number] [id number]#1.00CD:1 27 [facility] Procedure - Wound[place] 07-22-20 Procedure - Wound 170.71.121.117.38894 [id number] [id number]#1.00CD:1 [facility] Progress Note - [place]ound[place] 07-02 Progress Note - Wound [id number]#1.00CD:1 27 [facility] Consent for Treatmenton 07-01 Consent for Treatment [id number]#1.00CD:127 [facility] Physician Orderon 07-15-2023 Physician Order [id number] [id number]#1.00CD:1 27 [facility] Multi-Wound Charton 07-14-20 Multi-Wound Chart 170.71.121.117.05521 81367 [id number]#1.00CD:1 27 [facility] Nursing Assessment - [place] 07-14-2023 Nursing Assessment - Wound [id number]#1.00CD:1 27 [facility] Nursing Note - [place]ound[place] 07-14 Nursing Note - Wound 170.71.498.537.7987 763646 [id number]#1.00CD:1 27 [facility] Consent for Procedure/Surger yon 07-08-2023 Consent for Procedure/Surgery [id number]#1.00CD:1 27 [facility] Consent for Procedure/Surgery [id number]#1.00CD:1 27 [facility] Consent for Treatmenton Consent for Treatment [id number]#1.00CD:12 7 [facility] Multi-Wound Charton 07-08-20 Multi-Wound Chart 170.71.121.117.91905 30248 [id number]#1.00CD:1 27 [facility] Nursing Assessment - [place] 07-08-2023 Nursing Assessment - Wound [id number]#1.00CD:1 27 [facility] Nursing Note - [place] 07-08 Nursing Note - Wound 170.71.955.572.4888 126883 [id number]#1.00CD:1 27 [facility] Physician Orderon 07-08-2023 Physician Order [id number] [id number]#1.00CD:1 27 [facility] Procedure - [place]ound[place] 07-08-20 Procedure - Wound 170.71.121.117.49412 01445 [id number]#1.00CD:1 27 [facility] Progress Note - [place] Progress Note - Wound [id number]#1.00CD:1 27 [facility] Multi-Wound Charton 07-01-20 Multi-Wound Chart 170.71.121.117.43206 07376 [id number]#1.00CD:1 27 [facility] Nursing Note - [place]ound[place] 07-01 Nursing Note - Wound 170.71.436.987.3181 [id number] [id number]#1.00CD:1 27 [facility] Consent for Treatmenton 06-02 Consent for Treatment [id number]#1.00CD:12 7 [facility] Insurance Correspondenceon 0 06-30-2023 Insurance Correspondence [id number]#1.00CD:1 27 [facility] Physician Orderon 06-30-2023 Physician Order [id number] [id number]#1.00CD:1 27 [facility] Procedure - [place]ound[place] 06-30-20 Procedure - Wound 170.71.121.117.68097 07364 [id number]#1.00CD:1 27 [facility] Consent for Treatmenton 06-01 Consent for Treatment [id number]#1.00CD:12 7 [facility] Multi-Wound Charton 06-24-20 Multi-Wound Chart 170.71.121.117.98172 10273 [id number]#1.00CD:1 27 [facility] Nursing Assessment - [place] 06-24-2023 Nursing Assessment - Wound [id number]#1.00CD:1 27 [facility] Nursing Note - [place]ound[place] 06-24 Nursing Note - Wound 170.71.636.927.2002 [id number] [id number]#1.00CD:1 27 [facility] Physician Orderon 06-24-2023 Physician Order [id number]#1.00CD:1 27 [facility] Procedure - [place]ound[place] 06-24-20 Procedure - Wound 170.71.121.117.18005 [id number] [id number]#1.00CD:1 27 [facility] Progress Note - [place]ound[place] 06-01 Progress Note - Wound [id number]#1.00CD:1 27 [facility] Consent for Treatmenton 05-31 Consent for Treatment [id number]#1.00CD:12 7 [facility] Multi-Wound Charton 06-17-20 Multi-Wound Chart 170.71.121.117.61821 75216 [id number]#1.00CD:1 27 [facility] Nursing Assessment - [place] 06-17-2023 Nursing Assessment - Wound [id number]#1.00CD:1 27 [facility] Nursing Note - [place]ound[place] 06-17 Nursing Note - Wound 170.71.377.727.9606 [id number] [id number]#1.00CD:1 27 [facility] Physician Orderon 06-17-2023 Physician Order [id number] [id number]#1.00CD:1 27 [facility] Procedure - [place]ound[place] 06-17-20 Procedure - Wound 170.71.121.117.45079 80448 [id number]#1.00CD:1 27 [facility] Progress Note - [place]ound[place] 05-31 Progress Note - Wound [id number]#1.00CD:1 27 [facility] Consent for Procedure/Surger yon 06-11-2023 Consent for Procedure/Surgery [id number]#1.00CD:1 27 [facility] Correspondence - [place] Correspondence - Wound [id number]#1.00CD:1 27 [facility] Nursing Note - [place]ound[place] 06-11 Nursing Note - Wound 170.71.337.604.8009 [id number] [id number]#1.00CD:1 27 [facility] Physician Orderon 06-11-2023 Physician Order [id number] [id number]#1.00CD:1 27 [facility] Procedure - [place]ound[place] 06-11-20 Procedure - Wound 170.71.121.117.17048 [id number] [id number]#1.00CD:1 27 [facility] Progress Note - [place]ound[place] 05-31 Progress Note - Wound [id number]#1.00CD:1 27 [facility] Consent for Treatmenton 05-31 Consent for Treatment [id number]#1.00CD:12 7 [facility] Multi-Wound Charton 06-10-20 Multi-Wound Chart 170.71.121.117.00349 36194 [id number]#1.00CD:1 27 [facility] Nursing Assessment - [place] 06-10-2023 Nursing Assessment - Wound [id number]#1.00CD:1 27 [facility] Nursing Note - [place]ound[place] 06-09 Nursing Note - Wound 170.71.547.272.0363 [id number]#1.00CD:1 27 [facility] Physician Orderon 06-09-2023 Physician Order [id number] [id number]#1.00CD:1 27 [facility] Procedure - [place]ound[place] 06-09-20 Procedure - Wound 170.71.121.117.54938 70129 [id number]#1.00CD:1 27 [facility] Progress Note - Wound[place] 05-31 Progress Note - Wound [id number]#1.00CD:1 27 [facility] Physician Orderon 06-06-2023 Physician Order [id number] [id number]#1.00CD:1 27 [facility] Procedure - [place]ound[place] 06-06-20 Procedure - Wound 170.71.121.117.70667 84036 [id number]#1.00CD:1 27 [facility] Multi-Wound Charton 06-05-20 Multi-Wound Chart 170.71.121.117.62484 50502 [id number]#1.00CD:1 27 [facility] Nursing Note - [place]ound[place] 06-05 Nursing Note - Wound 170.71.529.022.3147 [id number] [id number]#1.00CD:1 27 [facility] Procedure - [place] 05-28-20 Procedure - Wound 170.71.121.117.82909 83749 [id number]#1.00CD:12 7 [facility] Consent for Treatmenton 05-02 Consent for Treatment [id number]#1.00CD:12 7 [facility] Multi-Wound Charton 05-27-20 Multi-Wound Chart 170.71.121.117.36008 07986 [id number]#1.00CD:1 27 [facility] Nursing Note - [place]ound[place] 05-27 Nursing Note - Wound 170.71.606.825.8475 442458 [id number]#1.00CD:1 27 [facility] Physician Orderon 05-27-2023 Physician Order [id number] [id number]#1.00CD:1 27 [facility] Multi-Wound Charton 05-21-20 Multi-Wound Chart 170.71.121.117.45799 11858 [id number]#1.00CD:1 27 [facility] Nursing Note - [place]ound[place] 05-21 Nursing Note - Wound 170.71.518.667.3482 268057 [id number]#1.00CD:1 27 [facility] Physician Orderon 05-21-2023 Physician Order [id number] [id number]#1.00CD:1 27 [facility] Prescriptions/Work Noteson 0 05-21-2023 Prescriptions/Work Notes [id number]#1.00CD:1 27 [facility] Procedure - [place]ound[place] 05-21-20 Procedure - Wound 170.71.121.117.01455 [id number] [id number]#1.00CD:1 27 [facility] Consent for Treatmenton 05-02 Consent for Treatment [id number]#1.00CD:12 7 [facility] Multi-Wound Charton 05-20-20 Multi-Wound Chart 170.71.121.117.90832 [id number] [id number]#1.00CD:1 27 [facility] Nursing Assessment - [place] 05-20-2023 Nursing Assessment - Wound [id number]#1.00CD:1 27 [facility] Consent for Treatmenton 05-01 Consent for Treatment [id number]#1.00CD:12 7 [facility] Consent for Procedure/Surger yon 05-06-2023 Consent for Procedure/Surgery [id number]#1.00CD:1 27 [facility] Consent for Treatmenton Consent for Treatment [id number] [id number]#1.00CD:12 7 [facility] Multi-Wound Charton 05-06-20 Multi-Wound Chart 170.71.121.117.89001 [id number] [id number]#1.00CD:1 27 [facility] Nursing Assessment - [place] 05-06-2023 Nursing Assessment - Wound [id number]#1.00CD:1 27 [facility] Nursing Note - [place]ound[place] 05-06 Nursing Note - Wound 170.71.413.968.9773 [id number] [id number]#1.00CD:1 27 [facility] Physician Orderon 05-06-2023 Physician Order [id number]#1.00CD:1 27 [facility] Procedure - [place]ound[place] 05-06-20 Procedure - Wound 170.71.121.117.30466 45534 [id number]#1.00CD:1 27 [facility] Progress Note - [place]ound[place] -0 Progress Note - Wound [id number]#1.00CD:1 27 [facility] Correspondence - [place] Correspondence - Wound [id number] [id number]#1.00CD:12 7 [facility] Consent for Treatmenton 04-01 Consent for Treatment 159.140.128.36.2451671176 [id number]#1.00CD:12 7 [facility] Multi-Wound Charton 04-22-20 Multi-Wound Chart 170.71.121.117.34047 13966 [id number]#1.00CD:1 27 [facility] Nursing Assessment - [place] 04-22-2023 Nursing Assessment - Wound [id number]#1.00CD:1 27 [facility] Nursing Note - [place] 04-22 Nursing Note - Wound 170.71.781.930.2489 [id number] [id number]#1.00CD:1 27 [facility] Physician Orderon 04-22-2023 Physician Order [id number] [id number]#1.00CD:1 27 [facility] Procedure - [place]ound[place] 04-22-20 Procedure - Wound 170.71.121.117.94684 94576 [id number]#1.00CD:1 27 [facility] Progress Note - [place] 04-01 Progress Note - Wound [id number]#1.00CD:1 27 [facility] Correspondence - [place] Correspondence - Wound 149.45.122.13.06755566862 [id number]#1.00CD:12 7 [facility] Consent for Treatmenton 03-31 Consent for Treatment 159.140.128.34.6507226218 [id number]#1.00CD:12 7 [facility] Correspondence - [place] Correspondence - Wound [id number]#1.00CD:1 27 [facility] Multi-Wound Charton 04-15-20 Multi-Wound Chart 170.71.121.117.90856 32495 [id number]#1.00CD:1 27 [facility] Nursing Assessment - [place] 04-15-2023 Nursing Assessment - Wound [id number]#1.00CD:1 27 [facility] Nursing Note - [place] 04-15 Nursing Note - Wound 170.71.767.125.5387 [id number] [id number]#1.00CD:1 27 [facility] Physician Orderon 04-15-2023 Physician Order [id number] [id number]#1.00CD:1 27 [facility] Procedure - [place]ound[place] 04-15-20 Procedure - Wound 170.71.121.117.58928 66055 [id number]#1.00CD:1 27 [facility] Progress Note - [place]ound[place] 03-31 Progress Note - Wound [id number]#1.00CD:1 27 [facility] Progress Note - Wound [id number]#1.00CD:1 27 [facility] Correspondence - [place] Correspondence - Wound [id number] [id number]#1.00CD:12 7 [facility] Consent for Procedure/Surger yon 04-08-2023 Consent for Procedure/Surgery [id number]#1.00CD:1 27 [facility] Consent for Treatmenton Consent for Treatment 159.140.128.36.7088713109 [id number]#1.00CD:12 7 [facility] Multi-Wound Charton 04-08-20 Multi-Wound Chart 170.71.121.117.49222 41033 [id number]#1.00CD:1 27 [facility] Nursing Assessment - [place] 04-08-2023 Nursing Assessment - Wound [id number]#1.00CD:1 27 [facility] Nursing Note - [place]ound[place] 04-08 Nursing Note - Wound 170.71.550.447.9588 146668 [id number]#1.00CD:1 27 [facility] Physician Orderon 04-08-2023 Physician Order [id number] [id number]#1.00CD:1 27 [facility] Procedure - [place]ound[place] 04-08-20 Procedure - Wound 170.71.121.117.23210 38046 [id number]#1.00CD:1 27 [facility] Consent for Treatmenton Consent for Treatment 159.140.128.36.5533991638 [id number]#1.00CD:12 7 [facility] Multi-Wound Charton 04-02-20 Multi-Wound Chart 170.71.121.117.35749 27130 [id number]#1.00CD:1 27 [facility] Nursing Note - [place]ound[place] 04-02 Nursing Note - Wound 170.71.599.682.2995 782020 [id number]#2.00CD:1 27 [facility] Physician Orderon 04-02-2023 Physician Order [id number]#2.00CD:1 27 [facility] Procedure - [place] 04-02-20 Procedure - Wound 170.71.121.117.63775 24188 [id number]#1.00CD:1 27 [facility] Nursing Assessment - [place] 03-27-2023 Nursing Assessment - Wound [id number]#1.00CD:1 27 [facility] Nursing Note - [place]ound[place] 03-27 Nursing Note - Wound 170.71.538.347.1176 [id number]#1.00CD:1 27 [facility] Coding Summary.on 03-26-2023 Coding Summary. CD:[id number] Ww+PG hlYWQ+RP9IKCGpZ07tvARyuV7 tT4GRGVoYYttcSQQJTErMLkUv pmTtSR8azGQwGCDn IC8+YR6dGLBhPmdxmZCud0Z1v KS6R74ide1gLOgzbXZ0EJQjFx Zjcuaax4hvaNa3XPfvEinxNnY t LQRzeT68SXN1tR95Rb79aFQbg VVhe1xntRi7LhTdUSIpCCS5sY glCYlfl9AaKPGvX01diXVca9U 6 MWVdrEbmhLNgQiBogLN8sR0rL Cfehumfc3etfgxzHfx3zx73bS Suq7K1wNB7Q2HcmuF1GPCilMZ g JfqwdNGBzK9tjovej9jiujqsK fKjAPJpVBs0MMs5MOPjcZlwQn EyPM21JSO8CVBfkaVeO6HmCPQ s xJfyRnZ4u1I8Xa8RP2CNRjheD 1VNTUFSWTwvdGQ+CA66yn89N3 QeIebxRzs4PVGbOWU1eCK3lQ3 n SRHeHCwaw1H6dGD3K1UhxzSiy i7hi2pkGGLiHHgzL37rrWFfk6 J2BMYfqXH1CYEmcUelVeRhsY5 3 Oyc+JWUlhZcev7CaRbbou6cqq 3tlnIq0AgfyKREdskQnwXrrCM O7c1EzEr9oLXTiuOQ1sRY3lW2 i LtOwSkU7QZlsZ334GoMaqZOnY dguQ00dB2QnhGC+NXUzYse8PI VbxGkcCS8wP5HnCHUqztdlxRD m oZpbNB8mFMWdtteoSZUlxW5kK JDpE9u8DtRvFyO4FXldT9LuEO EtksvfGk98gH5qQfOoOgQ2WFy u T6UidhW4VZYxzLOmXPmiZOQ6I 50rc1L9URQtZMKzSHL1fDP6jZ 1hbGlnbjogbGVmdDsgdmVydGl j XTpkWEtaE383SWMllAymYzRuL GluZyBEYXRlOiAgMDQvMjYvMj AyMzwvdGQ+PXEzAKN6nLigECZ n dRDfNSdeGx8xhQjksAeoQZ8fV ENcyhhdKXFjqD7aFKPjdEOhoD pfUH2pQWQmqmilt509GeIxRID 0 JHVrtZIhY3QzkA3fWwIkUMWeS TFgT0NnuCBvGPbeG594TWvaOn R6DKHcqyYhS2KgPQIagRtdGlN 0 j0O2Oj2Qg1UpcfhdS4VfsOZfN tCxOqxdKHe2X3JcIhjppFD+PC 01DLMvGR02EFk7JII2sCdfCTb i YVVsR9VcnQ0nAgQcREKwKZXaM yc+PHRhYmxlIHdpZHRoPScxMD CwOqGfxYdwCA4mYa6xVXScMPT v kEcntHNmQmIoc7pgIBMjVLuoS A2fmMjzC1VuxEU8KYAly3b5Dm 90N65jM8UgxBS+YHUwbMJ2tVD 0 aY7jOmJwZyF9NHayA298HlEnb KHiXrnbg6jtt9cgpYs2CrT5HO MzpaLesNjaYBD1a9CnDh66P49 s IHdpZHRoPSIxNSUiIHZhbGlnb g8inX6tSq8+TKFpbXV1kJB3aB 1zCgSqBzO5NDzjL844DyZgzOA v Ekrxu6rcd2xpfJc5GqMcUCRgb uTtzPeyGJP3b8AmVr76O2FbhH cni3IfFud8rw96aLVcz0E1iRW 9 D2RmLOQlfspejUXsxHisIO7bW IBmucqpHOTanU2tUVOmT1e6Pl CxExN3YAclU3IrqdY4PJLacZJ g QDPowSMOiH0igjxwi7lxougiZ qVqMJDfVXz8QOl1KXLjuXhkOg WqXPQ3XkG6ELV4oMUrjZ5keSh n zplqvY6aVdg+DVU0fVVivBPLW G4iLqfsbPJ+LIDnDSF5rFduTN mmEFZeyN1xSTYlM7j4ClKrTgJ 1 OBtjH8MgfcO6VONswYTwMPPrz IJDhB8vnauit1cdkllaFaLiPL AyLKw3CKu0GXHofQugGjUkENY 0 FmY9NPY0hFRinW8ajWjxesjjs G9wOyc+OzegrSmfWUU0PKe7K3 WlLfq6PADghUsiTL3atIStMFl u Vi4kqKjmhYskUH2lOKIyxvzcp 121EdQcd1ieZAKdsTXqAKiaIX D1N31cd7D1UIToKTZgAGA3vIT 4 mP6qpUntqlogeVXolIaldlBxw XmxAQsuCPkdD587OZOpoLyfZt GcARh9C3WjBll8HMZraRtiYK9 n aJSaXKiyRy1uuCmzrFmsEJ8yJ KYmmqamg913JuNik9hnJRJwuU MgYMjiAGW1L26mo3I8CGZqYBT w VHS6nTK1wY7abRxlbxewiODmk BlbvqKcaDqdOPemQMvaF409IP XiuSqfAqLuoNu5A5NwXzx0VCW z bMlcJS3pwPUyXSbzYm3yeKqgb XcwZU0kSOLihojry548MeTrn8 gsTVGlhGWmTJjcUAR7Z63tk8Z 6 XPVaLIYzSVY7cRL0hE4xaTxim jogbGVmdDsgdmVydGljYWwtYW leU881FEBlbRikWwYeaCdzhkW g BIcrZKt4Q6ItCniyzDE+PC90Y QRdLB91xUOslYJxv5bcmUz1Ey LjZJCcEEV2xYymTUhrd5XvURE t M03yhOObm9I2TDHzwIwwsWQpU iIboNK1qI2aKFgvrbkuy0chyc hkYtkqf0qail22oJ67G94iEGk p UCFsHTCcNRShPZRliStykm3ek G9wIi8+ZFRqaVW0pBL6aO8cCD UvOyD8JVcvA792MaDbvQMxDzx j d4lvv9rgwUp0SxK2OFDzbwOsj BoeCTS3b9MtBq43O07uOZgpTH NaBVTuKCHaOAGhoCbrli7cpU5 w Ii8+TEOqaQB3rAO5gT2nZzYwU aZ1PYsmB572YaGkhCUbSlzeV2 1lS4CoiKC+SEEpZpv0QCQosFo s LO9sxIVdIFjlEj5qURP6QgMqJ tVmDWmeZ8TfCQGenjghzepahU W5HLDgTLFxbV30Ps9mpGlnMMJ w qXIZnK0qhojzz8ljhibvAtPyA HRwICv5YYg5TIOpbYdwEtXtUT S2VfR6IFQ1eIJuaH4fxRihqbj g oX2bX3UsIDZgmodeDb87gQ0kA xKrBnD1ZIgaIob+VEFOTkVSLC DVZ02XSJBlSNyttOL+PHRkIHN 0 iUohAMoxDNYsiF7vYFVcD3j5O zLjDeG7VRgwZ9NtHMHwakzjTn 87jE5iTvFgOtL0BRvjK0PwjiI 6 SNIxsAHnALfqJZS6I33sy2D7X EDxDKUiVLL4sMU8lC2qkVcyam ogbGVmdDsgdmVydGljYWwtYWx p M303DTDybLaeNmBaRgF7LxJ0Z Qg4T4AqOpu9WGOcnHukSY5yzP RyQBngNr8vmRmbeMkuHF2oDJE p mhnwEWAteM3wFROheYSwvRpeR F5yKSWukdkoi693BiNeBCT7XX HvhKLfP9UsgA5kRyYuPSNoDYT w G3LvzWBbADhvX563FTlgKmD4M ECreyZrS6CkTIGdtBfaPyV4m5 V2Sj75JQFMNAMxccjpsGL+PHR k VJJ7zAgpGCkbFKWfaH7xRPKyB 0j5ZkVeNgA1MKlhC6OeXPXbhi hdTb95tK8lDtEyXzI4QJuhL8X v qjJ7DNQesPKaFPtkRLW2X42tt 6P7DEZsRPGbTYJ4yIZ2yI2qkA lnbjogbGVmdDsgdmVydGljYWw t LVloM731YANemCcdFz9uvTT4F 9UpJpx3CREomEdwTT5udTMwWG mhNr3ykBlzrIofZO9zDLWcvqv w QXMsxS6fEDOisVLjjBefSG5eI YXqregrz296QkZkOGA0OJPvlM EaI0LflV5nQbEkBQJwPYWsF7V l oXMnPZxjC094GZdaIyQ6LFLud zMiS7RoZTQhcHwcJfQ7k1Y1Px 7XzEMhJJKbKH17BK25VS74I0N y PjwvdGFibGU+PHRhYmxlIHdpZ QRzDGglXWDpTmGosHwcRY1rKw 3jGEJcJJDexIdywBSbRySxm0s s OEDaMCyhGY5ljTucX2KywIO1N HYcr4u1Cf54G82uN1BkjUQ+PG MxnNG2mCO0hH7gJzRgSuQ2OJh p O472GyIcuPRkGpher3olp5idb Jm5QyIcIWHuyuZziFrvWQS9f3 TqFt91N63sGZoySFCsPOIfQBM i EURpxVhoyh8zbU4sBx5+PGNvb BK2eFC1fC9uDcZeHwM9SEygK0 77SuXudXCiIustO58qS3SgqYJ + CYCxZej1JQOlkZuuTB0ufGGkI CgmTm6iRWG0BzCzMaNdJNbuA9 WjMJNvvotnozvzvWK8MAQxAFW w cB65Az4jaIrpYw5yYBRdHSH4C XUghNTpI4QfaN3cCqTyMRYcKB DqA3OmzKYsMExwL571CHuoHfA 7 VHUhpfPzS4JaODUtnPtqCoX7r 4R0Kp4VeCxcwANoZH4bCeGeQL o2G2NsElh2ZSPguWzzXY5gpCR k FEzcUr3daCjuwFsqTN1sWYTbx wbra011DsOmg7eiCVHgcUCgYA vrAUZ1G33bs1U5PSDuCBFvTGQ 7 kMR1pL5hnRfnayztlRMvrScsh eUrhPyqIKoxXWalS728FQIpnQ bqSdSPUvw7G8FmLdc3IKVsuUp s FG8fgUAfEHynIb0ewVzzlApoX O5wCEPhzbghh765BiFef0coRZ PgqLNrFHaaZOL6K04xs5H6CWP w MQMmCTP0yYX8kW7tsJmhpeoqd GVmdDsgdmVydGljYWwtYWxpZ2 29FHUvpZkxWc5JSar2P9BaDpz 0 KSHtvXpvAF8bkCJsEDoxDa0xy NbjwZdfXY6rMRMsijfdm128Py Arb2cgRBIueZZtVYiuGVR4B92 s d9T4CTOgAKMoKWN6zZS4pW4tr GlnbjogbGVmdDsgdmVydGljYW mcTKwaP024TAEjpBxlBuJufUE y OjwvdGQ+MS05kq03M5JbYafyO ry3XCBjRHF6vRQ9uT4cQOAvDD bow7C9pXZ9Z5EufwKrim1vm1s s YXBzZTog (more content not included)... [facility] Consent for Treatmenton 03-02 Consent for Treatment [id number]#1.00CD:12 7 [facility] Multi-Wound Charton 03-25-20 Multi-Wound Chart [id number]#1.00CD:1 27 [facility] Physician Orderon 03-25-2023 Physician Order [id number]#1.00CD:1 27 [facility] Procedure - Woundon 03-25-20 Procedure - Wound [id number]#1.00CD:1 27 [facility] Progress Note - Woundon - Progress Note - Wound [id number]#1.00CD:1 27 [facility] Physician Orderon 03-19-2023 Physician Order [id number]#1.00CD:1 27 [facility] Procedure - Woundon 03-19-20 Procedure - Wound [id number]#1.00CD:1 27 [facility] Nursing Note - Woundon 03-18 Nursing Note - Wound [id number]#1.00CD:1 27 [facility] Consent for Treatmenton 03-01 Consent for Treatment [id number]#1.00CD:12 [facility] Multi-Wound Charton 03-17-20 Multi-Wound Chart [id number]#1.00CD:1 27 [facility] Physician Orderon 03-14-2023 Physician Order [id number]#1.00CD:1 27 [facility] Procedure - Woundon 03-14-20 Procedure - Wound [id number]#1.00CD:1 27 [facility] Coding Summary.on 03-13-2023 Coding Summary. CD:[id number] Ww+PG hlYWQ+YU8CXKZfX00wjVYojB4 rG4UFMBzOOujlERIOOCeYEsWf rpRuBU0fmUGbCSEo IC8+GG6fNQRtGhcuxTQxs9J5r RC5B82mqw4sYAnbzUK1ESLhBf Zowjror3rznXu5PXkpSjtoJhG t NJVhjF22URY2vV71Gt69dNRko LZne1esbSq9LxIjHSMiMRE7lH riCNjis5JaENEiO71sqEScs8M 6 EIDxjQgsjJAcIuAtsHY7pS6eM Umzhilvt0kubxfpBqp2yt39iF Cqm0U0zBP4B1SquxN3MMUbtAI g GnyykPQNnC6szplom5rcpxvyN hVnJETlAPd9OLx2RZKxzFgtAg ErVX41DWM7DPFjkkXvL5YwGAA s xOagKsS6t8M6Jx9VK5JZNlamO 1VNTUFSWTwvdGQ+GE41lj77E7 HsCrqnTzu9VKSvQTM3xQW0zO6 n KYWhSPilz8Z0qLY5R1DmekWlf v4nu3uvRIRnLCniA13raOGta7 I6BESgfLW0KQSljYyeQzGkvE1 3 Oyc+QHCleDdhd1IwIorbr6mid 7eftBa3KcrcEMLqtnBsmRswKT R6g8EjIu2nAGNwfVS2yJT0wS2 i DgBlXgU3TDnjA432IaUrnLLcX dyuE78qG6IbdCS+OFDmSpn9XG MvgYpuYO6tP2DqKNSbnbiuyHW m pRofBO1dQQVcnawyFXRvbU4pX KDoJ1v6YtKcPtB4GKkoX2XzVY JwhepuDn66hT7oSbWyYbV0MTs u Q5WzxcD8GTVfyARmIEegOGY0Z 59nj3J4WSRtREBmDJN3rVT2pZ 1hbGlnbjogbGVmdDsgdmVydGl j XVbkDQgnU490WNZloGhyYjSkE GluZyBEYXRlOiAgMDQvMTMvMj AyMzwvdGQ+DEItLJY4jKspYQQ n gWDcLDomDo2ghDgqiQruLJ0nT RJzvevtMMZrbB4eVGMinXZrtB jcZK0uWHBpqnhmw252AiUfSDN 0 WFLjcMFfO8LhfU9mZyDrLGGmB LIwV2SzfRUfSNpeO700FAlxWi J8VUCzlhPqS9LuSDJvzGdqGoE 0 u1V5Jt2Ks3RkkuaeA8VluGVbY cBdTpkgPUf6J5TfQhlgdMQ+PC 99SNXxJK69GBc4SIE7vFgdLIw i FTWcV6YbqR1gSlHoYXMrMZQgA yc+PHRhYmxlIHdpZHRoPScxMD LtMiMjrEhtAX3vWr6oHUYoCZW v kUknlYFlPeYdz5xuHUUvJPdzI K8jfUazR0KxiVX1JJTrv9s1Mw 87Z46iT2YikLM+OZHuuGS5mPK 0 dM7xLwViGcG0CUxbJ233NkDjx TDpRktjo9xqz8dadNe5WoG7ZR OxsqSvsNifFGN4h7GtTs98Q09 s IHdpZHRoPSIxNSUiIHZhbGlnb s0kyD3cIs8+DSBnfBA6zOH0qX 3cTqNlYiY2HZtoW976BsSsfMS v Cbbme8avu9ddkAf5UdBoYHCyf rMozQztQPO7a5CsWr32D0XyrH lqs5ClYtv9bx50uBQdr3P9bWY 9 C3UkJRYafghngJOcqTmsLL2vP URsuombDBXifJ2qYOKpM3u6Ht QdKwC6WFweD4IuutQ3WWEniEO g JTCfyTPFdA3jsafhi2liekybJ zWjBCGmNAn2DRj5VYEhcDzjJp UoIMA8KvF7YMZ0gTHlkR1lmMx n ixqjdP9fRav+MEV3cZNpoAQWY N3bJtfdfSR+QGBcGNG5bUhvNB cmZUIrzH5nFHUpH1m9ZcAzGqT 1 JSnyR9JmjlO5RDTdzQDrSZCej DQDnE1jxsmor6egqdvkBfExZG LmVKn7OGy4HUAvfZlhEwTpHYZ 0 XtN3BAZ6fZIkxF6jaFmmqmgnw G9wOyc+HnoslPzqCHM4NDz0I3 HyPpr0QROysBmhKX4uhSNzADk u Ru5vyScorPouYB1dLZYvdjfrd 370QwIkq2tgMMHunXOnTIctFQ I6W89cw7Z7CVIxCNIyTDN9bUJ 4 lE9sbRcqjtorgFHkgTowflAwu RhyLHvvEBrrC953WHPkgNbuCr KqVKa8V7RdOet0IGZuaFamTL0 n tUDfNZaiSe4rsSpviGmvWM1mK LMkolctb934KvQdx2fkAPDaxU WqGKwyADT9T28qz9J6OFItMEU w CYD0pUO6mR3emGsotmkziJZyj IzhirLdjMtcGFycYFyaN094BD ObnZzqWqLigAl2J8VeSnd9KLW z nQmhDO6loMKeTEixMu7qbUcup OrcAF4zGOUdidpjt345SfXqt8 zpZGMocJUdJPmvDNU6V40yo6C 6 OCCcWEOdKXQ1rXA4sR0viBwrc jogbGVmdDsgdmVydGljYWwtYW jxM614KHBxdLmxOlSswWutpxY g OWxqRBa7S8PsNxzmyYE+PC90Y YQeYR15vLCywNFfp9bwtWl4Di TmXPHnWLU9eHorIEvgt5RuHIN t K01npNDra6O7SRWnyYqofJAmT jYfgOF8gL9mSZcfqofco6ywsy vuVfejo9lndj57dQ54A63zIUm p YNBtHEIsHUDcZZTeaVlowq3ew G9wIi8+JGNnsUI9cAU1zZ9iXA LvBvH9ELznK226PmYnbLRhNsr j i8sjv1rurUp2AaQ4JTHczqFip IbjONC3f4OpDr87T14oVBivFW ElQWPzLYEsNOSypNsets5ieY3 w Ii8+KFIgqEL7xYU1tD7qAiPgF kJ0VWzdT615OyDveHPfMwohP2 5qY3JcxRA+VVOeHth1NVHkjKk s IS9joNGhLUeiKq2kWMM8PdVjV tCqOPokN6RxOUKtftneeagzyQ K6HQKhDUOujC11Pd4auXbqDMW w lWLZhX7daohpg2dwqzpbEmBvA TSeMFu5WVk2EFVyxRiwNyEbIF V0RiN9GSU8qWTyuC8lcPmlsgu g bI5pL9ZlPNWifqhgXk09tZ6eI zLhQaP1CTynOcv+VEFOTkVSLC GNI35RVYBqJJyzvVI+PHRkIHN 0 uPwoBWnlXBRxuA5sBBQdH6t9O nUxScL1TTmnT8EhJAYxkdwlVe 94sM8aWpZaTdY3XCvsU8PvupV 6 SDDevSBhEPbxXZI6G58ic3B5O UJvFNVuIJX0jCI2gD1mvBcamm ogbGVmdDsgdmVydGljYWwtYWx p W996SFJxbRkdHkNcCwI6OhT5T Xu5N3CvKiz7LJNuyPbeKZ5tuC BkBYjyMj6erRwadQpvYU3cDUL p cljoZHXbuT4rGTAlnHGzmIgeO J2dTLIzdrarx117TxBhQNO5OE HscVFyE9FxmR8jNqIsHAOsOPR w Z0VojWPtMNmsV607DFuzArJ6B ZYfjrUdD6DiKCEcuSzdRiD6w6 B9Ro40HNKWWJGhsbamkPV+PHR k TGK1dFcgZWwnFLKeaE3tUEMhZ 3p0MgQdCjZ5QSmrQ4UhGETduf sqTn68zY4xPdEsMgW9FRovP5P v hdK6ZGVosCWkOGsiUBQ1Y31yc 2E7NJRfAOPxWJN3rLX3lS2jmA lnbjogbGVmdDsgdmVydGljYWw t PEknG294KRIrzAkpRs9hrFQ7F 2MtNxp8ZLSsfPcnBH4ivOMhXG ywHy2efXebeLrxHA5sENCezeo w LVUrgQ8qYPCygAEveKqiOD3nR JYxfspur169AyAzRLM1HACjuD AxM9IdqX6oClXxEHHsCFUpQ4X l xAHlKSlbQ040BDzkMmN0MAFkb jTkE8ZjSTVklOmvXoT9l8G9Ex 2LvLXrLCRiHI77NK92QZ19X8R y PjwvdGFibGU+PHRhYmxlIHdpZ MMfWThwJGHbYjYjwNudCR1aBt 5rDHTsYZQsoSpwiEPeXpLch0k s QDYhHRhnAU1nbNrnX6LjcRX3V OOsl1n9Bq21E71oO4HmqVF+PG UdiLO4tZX8zP9cJgWbXnI0JRv p E698LeSgbSJuObxzu5ccx3hux Ld4KmYkCATgiwNduSpzQSN5o1 TmGv45W24fJCwrONNvHEMlSPU i PCKodRahfj9lnA3oHs7+PGNvb MX9oFL4sD3qZcLeCzU6RFeyY3 73EaUrkBSlTlbqO66vC6UjnLK + SHGhJjy6OBKbdMkwQP2gyENaK EmcEq6rWWD8ZsIbYfAcLOqpJ3 PhNLBjhchffyovrKW4SVGeWWU w sJ41Ck9eoPvnVl0uBQQrVDV3C XZvaLNqM3StkG1pWhIkURQjZF WlP7JxdFHoWXaoP724OKwpFwX 7 NYGuynRkS4XrLEBagTzhMkF4e 6K3Zq8PdPakwGEcHG2eXqSsZQ p0H4UhZpg8VQErdDnzFX3cuES k IYrxVv4aqDqjmDjtJH9pJDKsy cdsk681LmEva9wjGSGgvIBzCG cmHYJ8X80jw5W6MMBsSNZlIOC 7 jFO0dH7kiWcozvjqtSIaaKwlq wKrlPgpAJqqQCbkH772OOBzaM cpKaMAJsu8Y2LoKrv3LMDdfRw s WH7ubIIkAYxiNq4aiTjkzDqgQ N4xHKBmxrchc623VbZhe3lhFB ZstHEvZNeqPZL6J32cv4W4ZYZ w GBLcGHC4aVY6iM9ojMnxrkkcx GVmdDsgdmVydGljYWwtYWxpZ2 53IXVkbJnfAs0XSnf9R0YjInf 0 NUXvwEjmSZ4msFNbUViwQe8md FprlBbiCX9aPGOqumdhx451Zk Gxx8iwTJGkgEBqPStzSPK2O22 s p2M3LGLlENBeXLP4tKD9eN7yi GlnbjogbGVmdDsgdmVydGljYW fgFGcwP498GNIluNvnWiVtkFK y OjwvdGQ+AU59zy98F9GnTwhkO ug9OVEtBHD1fNV3qG0pVKRvNE lqh8G8zYN0G1HvekEbsb2xb7l s YXBzZTog (more content not included)... [facility] Multi-Wound Charton 03-13-20 Multi-Wound Chart [id number]#2.00CD:1 27 [facility] Nursing Note - Woundon 03-13 Nursing Note - Wound [id number]#1.00CD:1 27 [facility] Consent for Treatmenton 03-01 Consent for Treatment [id number]#1.00CD:12 7 [facility] Coding Summary.on 03-06-2023 Coding Summary. CD:[id number] Ww+PG hlYWQ+LL1MDIEfT95utHJswH3 sL7KUOZnUWbfrVSYQCQvOHaNf zaKwRC7jcUAnILLb IC8+VQ2oUTSuXvxjkKKqi9D0n CM8A36oqs1vOKakzCG2PXJxRo Adsdjqn7ffwNg1YOlfFlflUoJ t EKHczH97CNE9eF45Ul88hBApd VQvk6vhzFp1IgTnZYDnFTK3jV cbTKksa0WnEKPlY45qvZBdv6M 6 UCRtxOqxoIAwLsZgsVZ6aF3oP Ccflavpr8lkbltxQgc5jo95tF Aml4Z4yDO2U8NatmY5UXBhxIC g OdcajRBZsP6lparkn4ryikueB qCdSATcWDr7LLa7QTJsdKirNa TdFW68NBO9DLMcvaHbC3MlRTB s pZalAxL4s6I4Wv7BM0XWJtwtI 1VNTUFSWTwvdGQ+US59hn74N2 BiSbndXdk0DVVqAJV8vNJ7dB1 n UJBsEZxrn4P4mRU5H1KvigHrk o3do7efVFGqHAnmF91zzAPeq2 A9EFCsaHX0RLBzqMynBjLczN9 3 Oyc+KWVfpAdnf4KrJzubi3rcn 9uciYq0JpmmIGYwdaIxhSjkZU B9i4IrPv0gPBSdlVL4uGR3uG6 i HtIvAsJ9WHjnO808KpManNYlP izwW41nN6HffOK+JVVjOwe9JA UanPbbWV4aI8RuZBWaaqsmyAA m fXapAO9fXRMcvnusVREggA5oA PAvI7u4PeJvBuQ4IAbuN8ToVS XkdyjlHw27zX9dOzTqVmW0WGc u Q4OdazC8EIPunCUxKNmkHKR4L 78yf2R4WNRuMUUnJSO8pMQ5yR 1hbGlnbjogbGVmdDsgdmVydGl j WVpnUWwqL615PFEwzQktLxPlQ GluZyBEYXRlOiAgMDQvMDYvMj AyMzwvdGQ+FTGqFBL3uEjoFNT n tTZwLGjiXr4adSqmwZxyGW6kX MLxcbliYPQgzR4gEEJtnXUyjZ auYT3sRUManagsq844UxAbBEY 0 OQHokVEcJ4GuaT2cHgHaXHAqB WWgO1PjnULkODwbW533XUjkHg P5MDFzxnNwE8VdPSSruDveSgD 0 x1Z7Pa4Nn7YsetdrT6TmuYMhE wQtWltgCBs5Q1OuUylenXT+PC 04RPPuWX00UFm1WOJ2nEeeIUj i WLOtD7YfkG1hBmYiQJDoEAQqN yc+PHRhYmxlIHdpZHRoPScxMD RyCzUlxFtoMK3wPm5pOTNsCDR v vFbkqOAqDmApu2bfPOSwAHnbQ G0boIyqC7EmvUE9HELkw6t7Ko 03E78oM1NopCA+AAImsMP4jSO 0 dR9mBrJoJdO9GKjuH832UhJwh IVhNgweb4cni9eiqPu1YhK3MI MwtyNshUrpGAC4r9SoSy53G60 s IHdpZHRoPSIxNSUiIHZhbGlnb c9tmZ3xQe0+RQKqnLD9bQC3zD 8pZvQpTpV7AIfuA719YbZrzIG v Xhohx8yuh1qwoId3HdUkUGUwa xPwjIjoXHQ3g6UnCw66S1DhzE aiz8EmIls4av10mHWoc7G3yWN 9 F5JiVZNlotlkoIVraKhkQS8wP FBczxwgQHBpyL9oJNGxX4a5Ip KtBuF8GIzlT1ZpnbG8OEWcuRN g MECtkRBCfJ9fnvhrl9folwpyM jDbEBMvNCy5LSv5ULGlxYzdHw LpFCP7AxN3GRR6xEKgvC4fwEo n ivkiiW6wSxy+UXN5cHDwqTCGF A2oVkiaoXN+KVOtOBQ3jUsmJG jmQXZwbD6fXSEcT6e4JeSvQdC 1 QZedB9FoimX8YCZfmPInFWJhs XTJrY5bzivqa1iagpiqLaUaHG KfIZg3UVi6VDHedGxsFtZuPOZ 0 UgH2HZX3cUKmqA2xdJvveeubz G9wOyc+OtpuqBwoHQY9TIo1T1 MdZex3LXCmzUdiKZ8znDKzVAv u Gz6gvIfisKtsOD5xIZQghffon 982DjIkc9upPPGbbYFnRDjaVD V2C16zr3B5KAMaHCSiCQL8tAS 4 yG5fwIqnxublhYBdfHgnpaQqv WbcLUayGUkcG066TICbuQioUn EgONf0V4UsRef0ENTreWyoYL2 n jIIxTJbhHg7zkJjuxWxmPL4hF FQflhhvw094JdYxo4ttGBNdwM QvUBemGOP7D78wi3T2LXNcSZU w JGN5iSP5qJ8ctKwoerbxfYHmv WzuyzCcyOvoKArrDZqgY798WU IjwKtiMnIxcQa0A3HnPve0GUT z yRvcBI5lyGQnSXzyQl8xaJrdg TcwBV9bEGHvxemrf302BoLnn5 gkVDIscBNkUDsgDHT2E74xl9L 6 CMAxYGDgOJX9sVQ4sZ6snXqrt jogbGVmdDsgdmVydGljYWwtYW omB752LEDybJqwVsFnxItkmzH g BTsrRXh1K5NwBqtilZD+PC90Y TUnUU93iGFwyKSby8jrbQm7Fd HtALAeKEU3eSjeJYcyh6RcKNX t U28gvPSlp7U0XVJsvReipGKtT oYpdPR3cW4uDVlpsmgjt9bsyk moOivzu1mhwv40dU37C95zNGw p TEXaJTShDWKsCYBxsWqkxo5bh G9wIi8+DACzvQZ8fZQ6tJ1tFP ZnNnE1NBpuS845EmUinRXpEvg j e7pie3xymZj1RqG7EPLvdtTfp LpyBFU0l1RtRv56A54rKWsgWB CsALAiVTViPLRnoRugfs5soZ5 w Ii8+ZPRunKP9kPU0uZ6wAyAiW pR5YZrnQ189LuMzfEOzDnkbB3 0lI9JmxRV+OAUaJdh1GTJxkIn s SX3wdXLuQPngQs9wYWN7GdBoZ sDuSExcT4HxFGPwdarsenhlfP U6OONhCMSglR92Lv9deQxaQJC w rEYEwG1xuynrd8vtbrnrFcIqD OCeUJo4GOb5FYWdtIxyLeDyTA Z5PuN8QCC0kALnfE2kqEoodwq g tV7cL5TpMOTxnkfsJe39nV3uS vUzGyU5ZAldIrc+VEFOTkVSLC MLU89YBDHcGRtoqRC+PHRkIHN 0 nWolUSjzLHYqpJ7fKONiI8o9L rYmPoW8FZgrT2ZvBVXhustjAx 03uI0dKnSzXxU2HTxuI9EhfwX 6 QXDzjYCcOOdsSQJ8D92hs1J6O CGuGJUgSPP9tVZ9aU0prSydxu ogbGVmdDsgdmVydGljYWwtYWx p Y086VZWsoXwcJqMvHeL1BmM2M Wa8V6NzVhu1OLOrtOwsQT9amK PgEIqaIy8hwJeufLldSV8yQCR p qlooZLFilQ6xHGIjoUHknImjT K1tLWXdvwhuo675JcWuGBW6TQ PxyBAuF3WsyQ4pFyRrAXTjGIW w G2KgvLPeNQqlT118EVteNfC9S XJssaVkY4WeQUPfgLbwLeW2t4 C7Xk51WEMDWNXdbrsnvXA+PHR k CDM2yHftBDmjXNVdlZ4qNOUaG 6j5AdFtNhO0EBysU4XsBBEexx acXn31qQ0yMaSrXdF3TMehS2K v ncL4YKVllMXgYGdiCYY6U87qa 1O7JEEwFUQgLSA4rXI6cW6heR lnbjogbGVmdDsgdmVydGljYWw t ULodF285UETniZhmGk9epUJ4Q 2WtDlg4JRHscKcwXP3rnZItLH ljNp0sgUjegEpaOC8vTPSmrsq w PAQajL6tRKJxfACsiMonPS1jS RWtjlqyv716DjUlLCH9MAQtgF EeS3DnjI0pBsBoXASrJWWsP6O l fPOlVGqdM862NMroAnK1SIXix uRaD8CjJSQxbWukPpN4y8L4Qt 6IvDWrSYMcJZ09UI36NN60N5O y PjwvdGFibGU+PHRhYmxlIHdpZ MBnYPitXMNfDlNpfMohPN4qAs 6lJMKgEBYubAhyyELeLtHqe1u s BFZuGSvcGG0odDapH0YkuHA9E XRdk9e8Dr68L41hM2MlcZE+PG EorUD3eDL7nD0bAtHqXzN0TMh p W253KeThyPHiPxqwq8jwa7cpf Xv6ThFvHGFubaGqkHrbCZD8d6 AoRe65T06nDYghYTOtRMLzXUS i YFOcdHvqnz2dcU0eHa0+PGNvb OO4vPL9vE8nIoPkGfI0DJqbD5 99HsHbaJMzDukuL03jS4LxsRX + ASJgTud7GNOnuUvjCU7mbOJtS HzlQy5eBKD7OzEmZxXrBCbwM7 UdBCPsjlwfikvysGT9UDIrOSB w uB61Lb5qePiwHx9lQAPuTKW0N ECjjKNuG9GklI7eBjMwKOQwBX GjZ1QkwYXtYQwlR731QLtlKqY 7 PGCpfiNpC3IiZPRauMozFvQ8n 0Q0Kn1AvBfmbGQyNU6sBwFgGP j9T8AzIdr8YPPomHtxHL7ihTQ k EVrcIw1wyAkmkHugYK9dIGIns etki653HnDlo6qvAXPrzDXyWH uqMXF9C09bu2C1IOEuGWHxRAO 7 hLR8lB7vkYwwhjrnwQLhrFtxu eGlzBpiFTamUKdfD133TULneY gaDoUPHvn6Q1IbWtw5HIPtcWa s NS6tkNTlQUikUi4zsXdovEmrN D9aRJTcegsed550EcQsk7meXU BxyFAfKZvfRWZ7S29cm9H0NUF w YNIfDHJ6gMI8zL3kkWotznqvg GVmdDsgdmVydGljYWwtYWxpZ2 71RPWrwNapZr6BMvn6T3XaHae 0 PIYawUsmGR2wwETuAKsxEt7ww ChmsFzoUM6lTTPjawlwb679Kj Spj5wrLXVawRFfPVatBCS9U40 s p9B0KWFtGVPkNYO7tRB6eU2eg GlnbjogbGVmdDsgdmVydGljYW cmGOycK731JXXmbGsePpIpwKY y OjwvdGQ+VO60fj18S6TkMeivA ag1KLIfUJW5vYG8nM5dGHTqPG pun3F2rRG1T9UkoaNtpg0go2d s YXBzZTog (more content not included)... [facility] Nursing Assessment - Woundon 03-06-2023 Nursing Assessment - Wound [id number]#1.00CD:1 27 [facility] Nursing Note - Woundon 03-06 Nursing Note - Wound [id number]#1.00CD:1 27 [facility] Consent for Procedure/Surger yon 03-04-2023 Consent for Procedure/Surgery [id number]#1.00CD:1 27 [facility] Consent for Treatmenton Consent for Treatment [id number]#1.00CD:12 7 [facility] Correspondence - Woundon Correspondence - Wound [id number]#1.00CD:1 27 [facility] Multi-Wound Charton 03-04-20 Multi-Wound Chart [id number]#1.00CD:1 27 [facility] Physician Orderon 03-04-2023 Physician Order [id number]#1.00CD:1 27 [facility] Procedure - Woundon 03-04-20 Procedure - Wound [id number]#1.00CD:1 27 [facility] Progress Note - Woundon Progress Note - Wound [id number]#1.00CD:1 27 [facility] Coding Summary.on 02-27-2023 Coding Summary. CD:[id number] Ww+PG hlYWQ+WM3UXOOqB14boCQktJ4 uP4FUYHjLCrziSMGYEAoFAsMj qlYhCB0vzRHsZCOx IC8+GX8cQNZiOrdwiBPmu2W3z PO4A38axx0uHSfwyUH0YKJxAg Bfimace3wgxKv4REcrVixyDsU t OHVujO60NVK6sR06Ai20pKTai FVkn5uykMh0NwNlPLKuWHG2jT ebESvqo0JpGAHqS66roHKou5L 6 HLWugSwsqJNyBkSloGA5lV9nI Kvzfbtzd9abfjjnRqi5lj82pN Ldd6F2gGK3U4FdewB8EATwhHG g WystyIAFaM7nzzbcy2uyjxzmY uQiJYDcPZh0YPf5OQAavDvuRe TeDJ46QLU8EMFbiaThB4PfMSV s zWcyUtH5c5L5Zc8IB5SHUmdaQ 1VNTUFSWTwvdGQ+KZ16rw28Y2 FiXuxgRsl5IEImGHV3bCA4aP8 n QOZnCUmfj4N1sGB8X4EvnlShh v7yw2oxOZZqWSuvL68bnYWfb3 E2UMIaiJL2BMBveSozHfZigU8 3 Oyc+FSGkbNbnm2AqYxvby1suq 5qyyRa5UbokDHGaojRifGaaGJ Z3b0XmOs3rXMIlrWP7iDX1uW2 i CkOtGnH6HFzlG977FiDlpSRxV ingG63rV0KfbNB+PGTyWmy9XK LipXnyGO9pB3GoHUVuueewsJF m wBstPS5dOZIloqghUIJdxJ4bS AOvE6d2EjIdKzC5QKgcQ3ByQJ CqrgxjJo09eL4kSeUrXrZ5IFm u B3YimbR0NHUbzJOhFFuaSZB7U 54tl7K0IFNfWVApVQS6iQX4oE 1hbGlnbjogbGVmdDsgdmVydGl j KZvlATftE376ALZrcJhwEhWwO GluZyBEYXRlOiAgMDMvMzAvMj AyMzwvdGQ+LDEvXLT7yOnaZJL n pLRiRMpzJn7utDmgwRqbQC0uB TQwuxflLHCxzA6yQRUdjXTiuQ heRL7wTYYvmhtmi165ZdKcVBD 0 RUNpyNFxW2UpkU8wYjPtDJCoW KSmQ1UmqSJxOIpwT455HLweMf R9SGHephIvG7VgNSTpqUssIuO 0 w5G7Mr0Je4FitqxxB8AdoCQlV zBdFnzlSAe9D2GmCpkbwIB+PC 85YJKhVG94OEf5HOM1lRfyNVm i PBWmR2TjwV6bMbEjMQLdCJEoE yc+PHRhYmxlIHdpZHRoPScxMD JjHvNftPpoZG5hYx9gBFMtQEU v jVbytWRzGbAsh8luYYPoLQjgK G6caVcrT9LmzKZ5HYStx8h6At 17K87jL2AyzNS+HFYptZB4fYB 0 tJ4sNcEsOcO5RJxsP154OkBsc YIeRaaab6xsk9uwsBi8TdJ0FV RbkhFgxYpwZTF2q3DaEl09U13 s IHdpZHRoPSIxNSUiIHZhbGlnb m5ihH2gHv8+IIPusYS2jPZ4oX 0qCfThEzH1HIkzP768OlDzjYV v Tzmpy6lsl3vckOd0OrMmNNXau wPdwAgrXZK7r1HsRd64L1UhbN bfb5CbUvg9co03vKAdl6G0kHE 9 H3KzEVLynvqzrCUbhSciBH7cG IMelwhbOWZcxJ5lVIZuN6n5Mq DdXbJ5UFfnA9GptoX7DQTsiYL g WWLabQFEnZ1hawmwb6dwzbmyU rRvUXJyHVw4ADh7ZFUasKiuPg IrKEY6DcS1SKH0hBFyyZ3ifYk n ykkkyZ0yRze+EEE3qLYuaRPMW T4tXeypsRG+JPXfTDC1rJlaST hpIPNyvS4wFHFpM1c0YmYxQzQ 1 CJkzF7LivaP5OCWcyUFcBYYno ULNhC3dgvsaf7spgmqbCiQsHA JcJTm9UAy9KHSgwMobZaAhNLU 0 RoE7DOI2gUJahO4icZmkjwiwm G9wOyc+AdcvoUoiMUH1ZFk1R0 JhGvi9EBUmfQsmNU0wlXDoMNq u Of3phLqguCqgDS3vKQFdomyqa 787UqWcr8xnAVLcoTBlDAetIO C0O84aw7T9GSDaYXZeECK8yKR 4 pJ8pzQuhahkzkMBlrBdvooIgf QepIKxxSEupI959RSKxmDzfQy AoGIw0U4IyDfe9QNPikZvyJH2 n zBZsRDzkHq5nbJthoWcpWM3aJ AVtsjwga423KaPzy9zpNMPwuZ TgZRqgWIA9K81ln8I9OPTrVIR w OSA0aAQ4zS7wlDjsuseokNFuz HcgniFcxQtiIRbyAEdvC682TP DskMeeWiOdjOk6C2EvCqy6PTE z uHrcJJ8liSJkEMvdFo5roUukn DzdTD9nVJZmmjxlh379FiXao6 yyFBJhvAKnGNhtXOI1X11to4P 6 XYTdHWYaLLD6iSK5jM6bcUkio jogbGVmdDsgdmVydGljYWwtYW ndZ488ITOeoCkjPpKenDfjgdH g ALeuFOc3Z5YhNkvhhOD+PC90Y XIrSM13eJYuuQFap9troOz7Ec PwUSVkSGH7sBszTIrke9PeBFA t K57owZKqg7M7QIJzyCyasNAqP kKpzCY6uQ2jEPwnvyzml2fbro wnYiufb1cvwh22nB78K84rRTz p FLIsGDSxATYhFWMvuVfjre9sm G9wIi8+DVZwdQR3bOA8mC2kML AlAmP4WVhwV746VaLzvIIeLiw j a4rgm4jcjKt0FfB6WXBstgJee KprABS2g5MyQj65I75mYUnhUA GoFEIoDDPiTELoqEurjh0aoX3 w Ii8+UZGshVN1kLE9zX1jAdWuF dL9CKtxY499RjVfcSVdWhamA9 7xB0CdiEE+MSGzLsy3ACYxjNq s JH3igQNyNYreQe2lQVT4ByZfK qXgFIflJ9SzFWNchwguqnrikH N3IIHlPJQmwQ08Cm5sqOhnVTT w oFCIkL4nbiils3xggwenFxFoG QQmWCd9DHn8TWPyqApgTsDlMX W1TlN6JRX2hCNlfQ8ouWkvbnq g cR7mL1UlKZWvnajgLt79rR7qK bTsMzS3DQpxJjq+VEFOTkVSLC JOL23XTNRzTHqhkZT+PHRkIHN 0 aYwpGChnYJTjcZ2qYTQsJ7c0P lLbTbQ0AOvyD0KvBJSvqcpcTx 46mI3fXrJlQqA2OBohD2KlcwA 6 PMHcpCCxZUpvEKS8X12tr4W9I ZWdLAFwEJS9kWQ2bE7dvAovcx ogbGVmdDsgdmVydGljYWwtYWx p Y852PCGefYxuZoYyLaS4DyE2B Gc3C1IwLrt1GEAgxTvxSR2emH DfCVxeLp5irVhdkDyaNM4hDSE p ejcoIASdeR3uPTMjbARtbQjgG G3pUOZhgxfnv041QiKtQXH8EI BlqIRkS3TznE1fYdRiZINrEOI w B5UduGAaQOltO495HFccBpQ0E MHqfcXzB4GeWFMonLcoUdI2k2 S0Zp46IECPRSNdldpimCE+PHR k GXL8eLziCFjpKMFpqW5rWALtK 2e4QuMzUzV7UXvfZ3EvORVaow byBe58qU3tInLfVlX6UKwvO8R v ajG2HPPduBKtLRaiQBY3W22wq 5O5QAYsAHQrSSG5hGN0jJ5ydW lnbjogbGVmdDsgdmVydGljYWw t BGadI688SVMyyMrqIn1tcXU6C 3UbScn1XJWldWjrID5cfOIpXC seEd9csMjhvMdhLH8yXKYpiny w MHHvbE2vBYDmvFXgrDjvZE9wZ BVgxasyb833FoZwHZY5DSFsqE EyB6UamA2uHqEzMDWlRNUpY8G l qWLoLCmsV807BXbgKnA1XQRyf jGtT3ThMWEgiKbmPeX7l1J1Qi 9EoNZbQOJaYP74JT68CM20E4A y PjwvdGFibGU+PHRhYmxlIHdpZ PRsCHgeJUPlQyOloSpvYE8dOd 9eWIJsAKEtgWkqqQUgLpWyx0u s FHQuKJctAJ5asVueN9KowMT0O MMgc4t4Gl92X88nK8UdcNT+PG HxlDA9aUQ7sB2gEtGsYbU0EXn p V862UcPvkZTtEmbhw9vds3nkr Wa0BsBnCIAevvTpsZniRRF9w0 QsGc45W90dJQmxRLPsOZHtCSZ i CDQfeTyesw1rzL1cFy0+PGNvb UW2qZI6wV0bGuNiJvT8QSjrF9 78VwMcqXJbXgclT07oM1JqpXC + EJYkFdu8OTOmhTyjMQ7qqMQaL TahLh3bXYI5AbGeNmCmWAlyU7 VxWSKsvwledlinjDO9CZEdJOH w pU73Gr5haMslRs9cXKUgNQO9S VLwhZDaB2PkvS2yVsDoUMZfEC FyV6CmmDMzTLaxA299TLteAnW 7 HFOaidIhR4NxYDFydSjtDeB3q 1L8Gf5QjRiwbEHcKO2nFaPtMF d8M0AlKgw1LHAhgZewWL3rwQF k UHnzPn7ymIfdgUjpLA7eIHWwy ipze540SiBxx3knBQQdjBVgPZ akIHA6N10ww1I5OPChKJDjSFO 7 mPV2uO9tdLayqjjjcFYbrVrsi wFrdZvnZHwsOAirG476JZBcxI auPaAMTfw7R3WfAmq6UOPeoOe s NS9vpJOaQRvtKs6exVdsxMrwR D7wEKNjpnnks770WvJhi2jfSA QcsZTkDOlsUZC7B40na8Y6ZXR w NCVqTPD3qZZ1oI2ttDnlybelx GVmdDsgdmVydGljYWwtYWxpZ2 00UOVfuNnnAl6QXtj9P9DoMus 0 POBwkPooFW5snCQzXYwlMy2xp MrxvMxbIY2aOCRcfbnmu207Hj Wyl0cqUBWqwZXbBPymBZA8N57 s l7A8HVTuVMChDQS3gFQ3nW9cl GlnbjogbGVmdDsgdmVydGljYW quXJrsX650VXXptAomXwNviTI y OjwvdGQ+EE95ao58F1PlMvnjW nr1QQIuESV6jSU6xC8dKINxVO msz5P3zOY9Q9XahiFnhw2gu4a s YXBzZTog (more content not included)... Normal [facility] Coding Summary. CD:[id number] Ww+PG hlYWQ+RO4WCWJgK46mdZQbmG8 lX3RANTxIXafeWITNSQtJOnJe lsEyOP3foOOoJBSr IC8+MR8eJUMtZmeojKFwz3B4s WT4N87vpv7vLFwyaNV2KPSqQt Wvnzbku6umzBs0YNhdRdgzGwD t BPUwbF60WZX4kS77Pd42hCZoc LDwo4vilPz6FyEeJVGkQSP2qZ roOLxkz0KnAINfW76ciXXcb5P 6 YFFeyRlfdFJdIaGetCW2cZ5aZ Mjketivd4tlgqhoAou3lp10nR Qvp7Z1jGS5L0VidiN1MVVkwFM g LlhinAOGjU6hbgtsb4quntlkX xUjJJVoVQt8XYe3DLMovGkgMw GuEB89OQD6XBVllgCdF5KeAMF s yNudKsZ6c3M5Lx1XB2IKMphlI 1VNTUFSWTwvdGQ+ZM68uz92F8 XiYfpjAja3NUSyMTT5oCB5eI1 n SOHxBNdjs6U2eZV1B4NqcyTzp h5ag8srBJDbILjqE66zyXQhg4 M5OSQzhVN7PVAmvEtfKdJpwM1 3 Oyc+UNPvzIqqm6NpMkatm5ioh 0sigNt5EqebOQCxmqRxmLxlMW Q8w8WyWp8nOHFdoIK1lTE6pO1 i WfJrLbE8OAnfV634WuOdoTHsA bwbK46cB5OcjFX+UAYyGxh7BI FilOujTS4jU3MqHGZikrvwtEB m gIsuSM3tVKUgngdhQTNoyT9uW BYjH0p0NmGqIoX7CPkpG1UhAM VvfyiwZf00vJ2xZoMkZuZ3PTg u M0OpmgS4QZIbeVIkZEyyPUI9X 22vk0O7CUImBAYtKWE7yTF3tO 1hbGlnbjogbGVmdDsgdmVydGl j XLctRWdvI487FYUjaIpjQoFcS GluZyBEYXRlOiAgMDMvMzAvMj AyMzwvdGQ+JQHgIFO8iQqiDFQ n lGYhXZrnWo7lkLenzFvmPA8bZ JTnwcihMMHgwW4tPXAwgMMoiP chOY1oITQrdpqjx751MgOwWCX 0 ACGqbCGwE6TerG4rJgYrUQCyL YThT0PspYWzYFxdK600VEvsGx R1CKMsfePoG0IkQIWxuPqcBeM 0 x6G5Dg1Mk0AqehmfD2NpfTInV yHhUvkiPCe4U3InGroonXP+PC 33OUDzCG69ZUq7PLE6tNgiXCh i JOTrB0YgiZ9jKvKmFTYvBEIcV yc+PHRhYmxlIHdpZHRoPScxMD OfAhDnpBjxPC1iJo9uODFnZOH v oVjghGPkFoKmw9yoLGPcLAyxU I3mdRrzB5ChcUP6CORpj9b9Xl 53Q96nX4PwtWJ+IBZnyRU6xXU 0 iL6cZmWrRfT6OZxrR847QmUhv FVoSvwwu9yxz3bgfTp9TiF6YH ExjdAkiHuoFVN3p4WkKo76Z31 s IHdpZHRoPSIxNSUiIHZhbGlnb z5nqS5oYu9+QELjfBM3gLY5cT 1lQeAzYdR3XKgqN163EjBvhBD v Hgjxm7lru9tizBz4BwPtZXSse eGghOhmKME7p0IySl13Q4DhuC bqf3PfZnw1cm60iBXni2X4bTD 9 F9SzKYEaudxwjMZrwYiuBD5jD BHgcontFGVaaC1pOHTqO2i7Ls FlDwI0XGfyY5SdlxG2BAFhsPK g VMOnfFFJrC7sazqez3vjbvugH eSkRKTpZWq9JPg0PUVdrYevOw LvHYD2UfI7UVC2dHZkdH5pdDy n yvpxlF6sUaa+IOT2qETyqVJTG Y9aUnggwIL+QSKdKKU7eJimAY wpASCjiM0xTDLpZ9s3TvUaQeC 1 DZpxK6EoyfR0CGVioDBgJTHov JVLbK9unhihu4dundykGwQzCD JwJPk5TEh6OTPawHnyTfDwPDA 0 JxJ2KXX2mVBuoG1ytFyenkark G9wOyc+WcgdzLeyVMD5TBf8N8 SuGqm9BOIxhCpbFK9luRJlYQl u Kr3gpEwisEptGU1oVOZmbbrzv 553PcPlw2lnILLluXExHQojBP J2G40zn6L0NPBaAMOjINQ5nVI 4 mO5zqZhubvgvqDFouMiwodGdk BlpSDhxXWzyI477YWXwvXfoJc KrLPs8W1OqIpo9VYVyfQckTA3 n hLUnXDgjYv1utAznmKzfGW3yO VTjsoljq484ZlYig8haAIIfbW ToFBsnEHJ3N73yv7V4TVGbUEU w TBP1dHD8dK4ihCgjcrmleVTmj FemfpYswDinUYhdJFjvK313NJ LsrCgkOvVslJt6B9MkKsg2AUF z nOnkTD2izJUtFCciFn3jxWqzc DezMS5bAMLjrvdsy653HxWwj5 scMZWnaBDqLBplJES8Z07fa0F 6 FGEzCMQzKAI4cZJ0rZ3hzCeca jogbGVmdDsgdmVydGljYWwtYW lcI770UISveOhrCwRbdRpsuzD g FGhwDMi8A4UvTcfunET+PC90Y ZJbVY40jVTasKPoo8fksEt9Yc HmAVRdHGZ6hBjqULtei1GdZIB t C71shXEjy6G2WEQpbZayoSJvR iQwxUR0qN5vKTosqfwkv7hxoy tiWlfip7zfls14cO67L36bRIp p NJGpLVAhQLZlBNJtjCiynj5oy G9wIi8+RWLibKT4eIV7aH6jKX QmUfS0RUloI241YpSsrTNmJct j j5uhw4tbeLz9ZaN6JPQutxQji XalIZX0h1XeLf26R77tUIpvFD EbIXLqPHAhZCNtmBmrme0niZ1 w Ii8+EEMtzBT4nBR2lX2uGoDzC gA2UGknF066TpMfmNZwWcdjI1 7hP4CffPS+MCKsSoc5ADXnzQq s RC6xtYYcCItbSs4hIGI5PxQhX lAkCSbmP1MjYUDzpzjnufygiM U6AZYcFVJzmT12Hv1ioSbkJHI w wXQVvM1rvcuxr2cyroutQzUeZ ONrEOm4INu8XFVhcQnnKpBsPW H3RgG9EDL4pUWmeH0isEavssh g jE6pN1WzCCQfwhitMp73vW2rI qRiLdV1PRtfEci+VEFOTkVSLC FBY61FTXYvMPfdeEM+PHRkIHN 0 yYcnREdvGVLibN4mVOPvR6b6X rQvXsP9OPgsN9UjHUQavkrmWv 94vT0yJxBwGhS8ACucR0VebjI 6 CYRxiGZxEDdlMBI0G69sp2N5J WSwXTEyVKO8jQN6rT5zjVkefo ogbGVmdDsgdmVydGljYWwtYWx p B255FIBmdLazHnHoUcR6SkS3H Ix2R3XaEep6DUKpwBfbHK9pmI PpFGkpUz5xrNpomKlqEX4mHCF p iynaYMVwvG3uWHTcyIFbjOlbV Q2pKPHsdpqpy305IoWbHEP5PK MopLMxN8VegO8sGeOiIXLpOQO w Y1FasOEsLVbeJ660KXqoZqF8D JIiqbVxL3UjWIIbuGirPkG6k6 L5Xx88KWHYIAMqbxlajFW+PHR k GHI7rWegMJnjPACdyX4kWGFqE 6i9FjNeHeC6HMiiP2BaLAEoeg xkCm90sM1mDfIbQtI9WEasI0A v lmZ9LDTmuHPwUUmwBPG7G70ye 7T9FLUnKKTuJAE6gJV6bF4xsX lnbjogbGVmdDsgdmVydGljYWw t DModY196MBOaeFzoPx6rmTN6V 0KzXoa7WPGvgKhwPR6hdUQnIS olHw6asWjnpJmvQT2zMJNjzio w KDNssU5fTIJbtJQgcTkcDL5iE MQdmmfvd992EsArCCN6YEAvhK QzU8NwiV8qYyMxNBCkWWBfZ4U l kAYkLLcnH230WBpjAgF9YHHwx dOeD7LvUCNskNdvVwE4u8P0Io 6DuIAzMHNfSJ90PU79HV25R7F y PjwvdGFibGU+PHRhYmxlIHdpZ SIbNQpfZAFgSoQglAknIL5xXu 9eMNUsVHKjdZspsRDsJsEce6t s IXNaHHhsNI6szNxlP9EtcLG8G PVqc5n4Id34U87tT2BjvOD+PG VccXB5aBP3fM6iQzJuSzP2VHx p A805NkPjvBGlBlpys3ydr7acm Jx0RyAmZNFrnqInjUtbZKS6i2 BlOo07H83dWOwfNBEnHKPcVAI i GVSncLnhdj3rhD9tMw7+PGNvb YN6lOO2sE9jAhHtMdC1ZKsoI1 04CtSeyEHyLimmR54iI3UrpAU + PCXyJhy6SJYlkSrqNR6gsZDvS FyeKz7vLZE1KeUfKwZzWUtkN9 EbGFVrxyjzfykvfFV0XTBbDXQ w lM97Th1bfMijQf1aNKQlYGB5F RHcjOFtV1XxjH9fPoDmDGCfEJ CcA6IpwVTcWNobJ248ZAdlHhS 7 FBUmjwRlL2FvKWGgjVwzUxX5x 3H4Le3OaDfhnFGhBS8dBxUqLZ c8B1IbZft3SVXgwStmBL3voZF k YKloWr5ydFiqzCzuVS4eTGOvx kmlw682YcUvv8cfOWZddJNpDZ goSWC3Z39zp7X1DWGgFROvOCI 7 hXB8cP2iaOvsiuzqyYRdhNmdl bYjxGaeNRzlTDxyN426URTysK hzLyFEAxc5K2CaHob1BRRvbJv s OQ9rwWUsSQdhNf1lzXrruAhiC L0mLWSuecmdm959FqXqj3duKC WgeDPsEVcfDLC8K48ch4C7GHA w UJQcQMM0jZN0yR4idFfzixhzt GVmdDsgdmVydGljYWwtYWxpZ2 83WHKjdNiyDh0MTao3Z2AtFng 0 JKNzhTneZH7loOXaNMafHs8rd BzmkEspOX9dVMWlfmvni064Uv Esy3gyEHRosSNfQAgoNVP1X43 s a6L8TCUcHXPnCCU6gJT3iY6im GlnbjogbGVmdDsgdmVydGljYW nvQNwaB172HUReuOciMuFulMJ y OjwvdGQ+CR44xc11A9WrYtflV jd0ZHWhPLM4fOB0aY9qLSVuRU vip1Z2fWX0R3EaymEvtd4ut2k s YXBzZTog (more content not included)... Normal [facility] US venous duplex SALTY Verdin [place] [address] Ultrasound Report Signed Patient: Yousif Aguilar MR#: [id number] 875 : 1945 Acct:[id number] Age/Sex: 77 / M ADM Date: 02/27/23 Loc: Room: Type: [facility] Attending Dr: Perlita Reno MAIL CLERK-C Ordering Provider: Perlita Reno APRN Date of Service: 02/27/23 US/US venous duplex LE BI: VV's with ulcers Copies to: Perlita Reno APRN BILATERAL LOWER EXTREMITY VENOUS DUPLEX INDICATION: Right leg ulcer PROCEDURE: Color-flow duplex scanning is used to interrogate the deep venous system of the right and left lower extremities. The left popliteal vein had abnormal compression and color flow. Thrombus was identified. Remainder the veins appear normal in the bilateral lower extremities.. The calf veins are compressible. US/US venous duplex LE BI IMPRESSION: Positive study for chronic DVT left lower extremity dislocation the popliteal vein to popliteal vein with partial flow. Severe reflux was identified bilaterally. The patient had continuous flow in the greater saphenous veins bilaterally. The greater saphenous vein was patent from the groin to the ankle, bilaterally. Impression dictated by: Lonnie Vasquez MD02/27/2023 4:25 PM Dictation Location: [place] [address] Tech: Maureen Denis Transcribed By: TONE 02/27/231624 Dictated By: Lonnie Vasquez MD 02/27/231623 Signed By: 02/27/231624 [facility] Coding Summary.on 02-26-2023 Coding Summary. CD:[id number] Ww+PG hlYWQ+GN3JZJKtZ77ghFMueV1 vF3XRVKuIAqunDVEGIMoJSsRn qtOqXB2osDTrDLGo IC8+KR1mGAMqGtagiSGlc9J5e TU6V19vwe2zNTcfuWE1DWViEn Amlhgcm9lqkSs5HTuhRkxqZyD t KJJbzK85TJN9zG61Ck82dSOfq CJct2silJt7JfLaXYRuZUP6cG pfNWynn5CrWFDxW93gxLHah3A 6 ONYteRvehXHiOyMvxKX4dJ1dH Qgxqazgy4fxexnaDik4aw85lS Hpi0W6gQG9V8GiqjC7EZHmmUB g XwjwfRPXsK7xhidaq8kgzkagS cOzSGBpELv3EVi4IWLdbOmhMg WcPZ70BBA4XSHqlkAmD8SjBXW s rZzwFdT4c4S2Gb5MB8DVQiqmX 1VNTUFSWTwvdGQ+YW17wr61I9 GhNcmvKfq6JCPbPJE8cGL1zB1 n DUKmWRxzf1B8qKT0A4QjynNaa p6jv4krWMBoVWfoA34pqVKsp2 D7SXRvhRS1AIWotMazMeVeoO2 3 Oyc+BDNhmEisg3XsOrega8zpw 4bmsRo6SzchOWBvbbHeyBuxGH I3p8VdEb6yWDEzfBQ0uKT5gU8 i FpFhLjO4JAslB922MrJnlXNnR wrwO67xI6OukVA+TBNjEfo4LF MtpCwnIF8hG5UqDDBtdbfxuDK m nPkvCR9aESKosbgcCAOyzE4bX NRxQ7q3JrOxCvH1TQduU9EqXV LgowilQr91qK4lHoMtOkQ6RMr u V9QuacU6DQYcqOIaSLtkUQR9T 32iq8I5MXNkZDIbEJA9cCE8cB 1hbGlnbjogbGVmdDsgdmVydGl j CTvdFHifA889BDFzsKutNrQmK GluZyBEYXRlOiAgMDMvMjkvMj AyMzwvdGQ+UUZiNKS5jUifABM n aVVkEYtdHz5ulHsauIviNF6kI ANndtcxZKQsuC1hXWYurYZanH bcKD4hNUEtqhzbh304ZjVgMOF 0 XDWfiYSdP8ZtqP0hMeUfQFLcZ BFxD5LhcLQzPKsrT472QAdaJu R7FSMtcxLsL3CmCZWxzEaiUcU 0 i5K4Pe0Wf6NeorjkJ9CodMNsI yUwAjjhNEt0Y8UgGxbupRI+PC 29WBCgXX08QZz4NWL7yGffHSb i NEBkG0EdlM7kMsMbZDKlMZGtG yc+PHRhYmxlIHdpZHRoPScxMD WcSdJvzCaqOK3hPs6zRHSsLXO v bMzirAEgBdVys6njBFFhFXtnD K8yySozQ7ClsER3WLBsg9v3Gz 38L17fF3XbiIS+JOMuwGD9cNM 0 uZ9nApQbTyP6BJglN006RiXkf BJjFumqz7kid6qqqNn7ZfU5ZE KklbDhkKslSAY9n9NeEg41N60 s IHdpZHRoPSIxNSUiIHZhbGlnb v1txY8cUi4+JOHczYI5nVJ8uW 0qCxSgIiU7JUfeY294BuOqfDG v Pvkaz5kbd0yqoZt8PeEbLYEpp kPltKrfQAJ1o6NgHz24H0IwbY bwg9SnUka8ag04vJSmw8P1kLP 9 O7MqJZBmrdzxcNKlzLyuKT6lX KTqhwniUBSbaT1zLJMgB8y8Ra XtUiT7KBghZ1UufoA9LXEvcFT g AOCsbUXDcA5unrmnl5hzndscL gJbZCQqRXg9MAh4IWAeoIbtKn TwEAO7HxO5ALW8rURpiL7udZo n lyezrE7jOhw+VVM0wUEatUXPA O9xWggybVF+XRNbUMU7fHeyKW eiSSKejJ0qQGEiU4n7SgJoNsN 1 EMajN4BcivL1TBIalDDyZJIpj TOCsQ8amhizr7beuqmwPlLbMQ ZqHXw7EQr2RQEubRkfAuQmQAB 0 ObK5YDN4vXEavH5vsKwzripbt G9wOyc+QcbmfGozWRU5FYr0F3 VhXol9EHDhgAxtXT8keCWfAGf u Am2ppJlelFfoKR7iZFSdiyptn 556HeDyl5zhYCLolSRhBArjYE I2Y79rh9U6YGMlBJRhUNV9qGC 4 cL3nnMsidhtffCDitDvotxQcx McqYPheQJtiO755NETxkVahYe EyIEc3F1GuJox6TWKchPudWC7 n fRUnIFafUn1koYvvqYxcPV1kJ QJujigtb844YhQqy5wxWDRlqN LcUThyYKZ2F25xa8S9OVYlKYU w TUZ7bBG0iZ2xsYceoneqqEWjj FbkxfWizHgiIHraPGryA186QY CixQegGuTnuQq5T2UzTkb6RSB z eKpcOF5dmHMfGHopEp3qmSniz LtzGA0cCJBdhtrlc685CiYen9 uqJEQneVRwYXwaLHQ4V68hm3D 6 LQHrHYOiJNW7zUT5cH6nuAtsy jogbGVmdDsgdmVydGljYWwtYW tiW551FUYtoHtmYkMehMqepaF g WBuwRNw7I9GuQcipyLA+PC90Y FRmIL80vITxsYTjk4frbBa4Yk PbYQPbPLM4iJrxSOtzy3IsOVS t N17gmCYgw3A5XKKwbGhfjVHmW vLyjXY7gL4vDKebqthzg1gflg olUnsjm6xbhh07rR87E18yCCd p UYPzMAEpTFUfHCUorGjyyd7lr G9wIi8+IXPpmAA0aJH7gH1aAD CzOiW7NZqvV512DzOeyZLeRpo j b5nya2ufnMc7JfG2EODrawRtb VrhOSR8r1ErYc10Q23vDVdnRK UrLPCbATYcOWVizUqkex9lnE2 w Ii8+VWWsiYR7cZT1eX4fOmOhJ lI8VOjsI672EmUzpPQrUzrzI6 8pD9FidOW+QAPiRbu6MSUdrIj s VO4amUPgKRtgEr5sOWI9QkUpT wOrLJugO8TvDDJvfpsuqdghzM X0VYPkNSBmiD55Wr7zkQkvESG w bSBJzP0wchpqp1xmtwbcAfOsQ HTaTBu6OHg1BZZqxQrzTtMsIO B0IwD1ETM9fVNtrH0fpNerhbm g pO3rC2RiJKOgeyltJr61wH2hM hJkJvQ8RBelHos+VEFOTkVSLC SDB13AFUQwKFfwdLB+PHRkIHN 0 xOncKLrmJNSbuZ7mGWRmA9w1O wDgUjW1TLruX8OjJHZnnjglQy 37cC9hRoHbAsG1ZPutB0IgqqI 6 PRSboUAgMLsjPJL8T26di9W6W UDyFVQqLLT2zBZ2pC3fzMzwbu ogbGVmdDsgdmVydGljYWwtYWx p Q396EQWdeYsgCmYwUfL9CnW2K Dg4Y9DdSrg9EUMprKbuDT9fmU OmUTogEq8peVtqiZjgVA9mOOM p bqyeFWImkN3kNODhrVGuoChmT C6gLAAdmdjjd394HjCiRSK9LR IouCOkB2MmcR7gEfTbZPUwYIU w Y3WvuHMrWHfnM064OTwoWyL7H UTxnqPdD4BxACHkmBqySeR0i8 W9Yq20VTIYXWGqrowvxNO+PHR k FVU3wCveELppXIMamO8iJHXvT 1b1ZpVwPqJ1LSsiQ3XgPYAewd bjMz77mR7xFnSoHaS5IIeuT6V v suE0NKQswXXdSSykQUR5E87zc 6Q9APOoZRCeKQA9iNT7rR2gmH lnbjogbGVmdDsgdmVydGljYWw t SPomR342QRUiyUejEh1aqNI6L 5BqWxf8GHTaoDcrZF2xdQJdIJ vxYr0gaEcilFrsYR7lDOBicrg w ZEXnjW9xCLGvsKMcpYysVM3zB FHajqqov213BpUhHUE6EOYvvY PwN9LovD4vAiUzBHEeQOXxR0E l uFTpHRucD048VZknOdB6WFDhm kJhG6KjIEEveJgoJuI4f6M2Gn 6ZvQFeAWAhFV33RP85UH26X0I y PjwvdGFibGU+PHRhYmxlIHdpZ LHyIKdxUKWyKhKkvHoiZB3dDp 3aDFGyLHFahWfhoHPtRpLfu5r s VYLpICxiOF4ekFosH8LkfWT8D OMek4j3No70K65mL8FljIK+PG FidTD2dVJ0lX2uYiQzTbK0DPc p P315ZsCpyIUkXelcx5tzj2fla El3GiUhZKEqawIcdDdrSNN3z9 KxSq33N66kTXhhFZNyLMGyMZG i HVRuuHxzoh0zjN4kPm9+PGNvb NZ9wTX7pU5dJbTsElH2IOscW4 97OzCfnRApWmwgZ57hL4KynKK + UCObAye1KEGoyJcsJL6kzDUvA EtuBg8uFDW6BjWjVhUpNPzkZ0 WqKZMzzvrditvccIK8VJFeCFO w jD63Mn3yfHkrDo2hHCPhIPH4S KLnrRRoJ4FwgX7wVkLrPDZdWN ZiU8RobLNfUCedS748ZGveBeN 7 NQQbatXfS1OpAAIsyAwoWqT1x 6L6Uj2OoNkdfVNhVE2zKlAuUQ y4Z8WuUot6GZHfzPoeWR6bwMO k KAduVw5cqNflsUyqSP6eMEFcc uesy120DpRvl7kwNKVdlBFfJN ooHUF7Y97cn6A3NUQaBGFpRWA 7 qJO5eU2usEuaiwsjyRGnhHemg gJysLzkZQxvPVpoG117RFMpqZ awGpVWMsf2W0RmEwu1IEQlvTi s FV2haSFzRRmtQs8beGyhaPyhQ M9qQJDznadov452EoUyc8dcOS BlxMErJKauNQY3S24xm9X3JEI w IXHjINT8rUZ8cA2wlQtxgiwab GVmdDsgdmVydGljYWwtYWxpZ2 11DXXahVdrWw9AAxk2H3XgGvj 0 NREbhDetDY0jsDYfLImrTm9mb HhwvRzpBK2dNPCjtmlrt040Wd Gee1feKNPirHHySMheUTU6I01 s d9Y7EKVvKSPzCCN6aXA8eB6sv GlnbjogbGVmdDsgdmVydGljYW wnCIyxT052ZLOvpDsyVfWugIL y OjwvdGQ+AD70we97J5XbXpsvB ar5RVJbYBM6xDU9qT2gXVRgFA iet1M7uSA1P1HtcmBtvv2yc7v s YXBzZTog (more content not included)... Normal [facility] Multi-Wound Charton 02-27-20 23 Multi-Wound Chart [id number]#1.00CD:1 27 [facility] Nursing Note - Woundon 02-26 Nursing Note - Wound [id number]#1.00CD:1 27 [facility] Physician Orderon 02-26-2023 Physician Order [id number]#1.00CD:1 27 [facility] Procedure - Woundon 02-27-20 Procedure - Wound [id number]#1.00CD:1 27 [facility] Consent for Treatmenton 01-30 Consent for Treatment [id number]#1.00CD:12 7 [facility] Correspondence - Woundon Correspondence - Wound [id number]#1.00CD:1 27 [facility] Consent for Treatmenton 01-30 Consent for Treatment [id number]#1.00CD:12 7 [facility] Multi-Wound Charton 02-19-20 Multi-Wound Chart [id number]#1.00CD:1 27 [facility] Nursing Assessment - Woundon 02-18-2023 Nursing Assessment - Wound [id number]#1.00CD:1 27 [facility] Nursing Note - Woundon 02-18 Nursing Note - Wound [id number]#1.00CD:12 7 [facility] Physician Orderon 02-18-2023 Physician Order [id number]#1.00CD:12 7 [facility] Procedure - Woundon 02-19-20 Procedure - Wound [id number]#1.00CD:12 7 [facility] Progress Note - Woundon - Progress Note - Wound [id number]#1.00CD:12 7 [facility] Coding Summary.on 02-17-2023 Coding Summary. CD:[id number] Gh0bW w+PGhlYWQ+JL7ZXOFkQ76bpES sgA5aJ6MFOXbOJqrcFRNGTRzY YwIywoFnUW9ryNOgNUXw IC8+IW0oUVIaFiyfqJCxi4Q6j MU8W61frq9xSHjydQG0WWZnIr Mclcugy5nfuJw7VUuxGemvZoS t OZCjnB23FHO5nZ98Th57fVMsa PAgo6owmWe0YzMqNZJgIRN9vB tdVEqsa3XhHOOiE62lvPOnj3L 6 QDUmmZznpXKhOfGnwEN1lO9pJ Ibjbpmcj6atgdeqQte3oq94dR Cho0G6vHQ9Q9YnbcB4UGIkeRG g VgnlbYYRgH1wtcyvc2hyiomlH pIdTBYfKHi6OSq5AZBbsPphYn WvGT53WRU7VQPkbjCuX0YfTWS s vVihNjB6n3Q3Ai6PD1ZWTqvuR 1VNTUFSWTwvdGQ+BH21do98J5 SdFlecAai9URXlZDN9fRW5vO8 n YSMcTAiap4G4eSP1P0OmhlEty f7cf8hdVUTpMKvfH89ouLHcs5 V5MGKemGF4CMSyhXvfQaEbwJ4 3 Oyc+ZTDhcVwzq2JoXsruj6ext 8lkyRs9JdwvUVLvvkYzrZmvJF B1v7BrKz3vWMEcsUV3hPK7bL7 i AtKpUoU7DYriT761HhPirGMsT zfgA16tW8IfpKE+OENqDkf7EG WmgWjuBU1aM1WnOUXnxiotuOA m kLpbFV2gPTHddnjbRUZerA6aC CXiN6p5SaFpHzW0QNxwV3NxDP DacnmqNh13aB2gKuGuAmU9OMm u P4RlrlZ7TXPitKIiKMnwSEF4Y 77vc8R0KKNoKYEpSDL7xBS7hL 1hbGlnbjogbGVmdDsgdmVydGl j PGvaATkxK498HSVxvUkqKyAxF GluZyBEYXRlOiAgMDMvMjAvMj AyMzwvdGQ+WXQvGGK4qSzjKLY n rAEkVIbrKb0xaYbgfYfuPX1zZ ITplbqsEWKzpD5jILZlcVXxwG epSZ7jCVMksscaa675TsTdBEV 0 XDIefOWmP3PajP5dMyLjYFXkL UUsB3UzgMHjQWyqR251FUagMp T5LWTehyXcW3FuKMWirAvzMyJ 0 h6B3Dy7Ty3DkjqisO3AtcKTyQ eQbMlcmTLz0B3HmXecwpTE+PC 10MEFvUR46GCl1VPQ3hGyhFOi i GXPnQ2MqlN8gPwYrDLXgDPJoB yc+PHRhYmxlIHdpZHRoPScxMD GqPnMbhTngOG9xKh8tFYTtELS v vGhiaPOtNkRmu2puGEHfLHcmG T9ueLbqT8FiqRC3MVLml8z9Kd 07B69tX4UqnPA+LJAllLW1vEH 0 zP2vGgCaZjT0LGagD773ZrQji MRhNghdl1gzt4rjkHx9YsL4YH FxfoIxbYyuERJ3m8CxOi35R88 s IHdpZHRoPSIxNSUiIHZhbGlnb q8ffV0mUd2+EAKsfCT1nAF4uI 8iItTqXkB1VInaN785SrVikNX v Xnepq8xlh1iydWz6FtLvVAMbn kSowNpqFQG5g1YsJy91S6ZniQ bxq9XhDpw2qz98sQWhr3X0iJW 9 S8KcXOAxsnlbvXJvrUwiNC5qX SPrnqvnJEPmnH8yXKJxA0n1Jy CoPoY9MWrxZ8NzvwD8DPGhaTB g TZRpzYXQcK6iiimjj7wswfasH rCaZKFhSYe2OZm7ZUJyuInbSo NyNZB9AzI6XIB6qWGykJ0gkMk n pqssjV6tPmr+RGI4tVGzqPVNX S4rLnjyfWO+LZZaSDL9zIjoYK apGEBewN2lHPAiA1v0HoLxCpH 1 BLvoY2YnoyO2RCOjdHAwQXPsb LTOpN0aersas2odrkinBnGnMN JmAOa4VCx3NSRgtNwzOsMpIKX 0 IdN5ISG3fKQdpG6ueYlulilir G9wOyc+VsoydMqvZAJ8TLp0A0 JwNhe7FSIzwUncVR9qzLSfRXx u Zp6tcGtvyTcjOT8wHLCezwzhz 999QyBje6lyEVLawQXtGVkmZW I4L05yt4Q2ASMzRCScGPH1oRR 4 oM3kkJghbwarfQEwrHxjlzOib GgzPYuuFQkqC721VMFocAyhJg GnDTt5T9QkQea8WPHeyFjxZP5 n kULbJJarGi7edAtfqQlwQZ2tP EOnxvsrb943LyIdj3cgMNZdlP QyXVozOSV9D45nf6G9EONaFHJ w TAJ3vTW9wZ5kcJhvhzarhUOwh AxgbhIuwWxiCOipXIhtC599DQ KxmMxpRfAvcFb4Q1ZmTwg2UQV z mYiyRD4eyWNoMGsiEo0jqDzrs WerNQ7bAYLyyfptq897UhRvx4 tmWSFwdWXpQJboGDZ7J84bq0N 6 BWSiXFGpKCN9kNU9aP3tvZpyb jogbGVmdDsgdmVydGljYWwtYW fiG654PDEtuQfmIyFzpIghtiH g HWeuDYy6Y5XhWdbypSE+PC90Y UPwPW19hDBxcOCyq4igoYp4It GcLTUqTPY4bTtgEDeel2TbZXD t W86dnPQhz6W2JEJkgUkraHYiB jViiYC0rY4pTBsbocwuu6ngbu vfTufra8wbyj14dL13X96yVQf p URWgDACcBNVzDYYioNvnwx6fr G9wIi8+KPFtaXY4pYJ3qZ1hZM UxXsM7GTjbZ871YoWabXDwEgo j v1rhg2ovdLy1AhA2VHVtzfTtu CadGQC3e3YcQz72R78cXSrvFW JhUSWyTBWlWATusRfqaw4gxL5 w Ii8+SXKkzOQ8nJE2nL0nZyKgO eE9YVpxB749ZfBkfXLaFkofO2 0wW6ZubBZ+GAFdDuk7GNDbsUh s GO6foWVeVHjfTk8aXPY9ZsHeE iXjQOptO2JpQVDoqcylkpxvpB V7RBCuLWBiiQ48Mv7wsOowPPE w eSSZmH8dmlmga6atsihaPqWdD EKjRCc6UAn5AVQdjGvrStBiLL J4FqV0CXK7eIMckX9crTrjajt g kS9tV9NoTOPwpcvdNm15gA4kU sKgKsS6EPvcKre+VEFOTkVSLC UDJ26LPHIzOPibeWO+PHRkIHN 0 bRniXPkrRVLrcH1kLIIfQ0r0H aDzOrG4SWfhL7HtGZZyscjzXb 77vI2xFaUjRfJ6MCffB4NwlkU 6 GWOzzCMiZJuiVFZ2V17yg0K0F NItRAOzDJT0aYL6kJ7euXoyuy ogbGVmdDsgdmVydGljYWwtYWx p E487WHYrsBikTgPiMhF7MjU2X Gx4Q6HsXfs7VVZmuMfqXA6ssN AcYLiwZn3gbSflmVlsLT2bVKP p zgrgYXImzT3nWPZumOXwaBtaV Q2zPKXevhmox614SkJlGQW5QM XolVYzW5CtkQ1kAmYpOEZxJIT w A1TboFYkPUpwZ156FGfxXzQ0Y CHsayNgG4YoHEYdlHpiZyY1d4 N9Tp54TMGSSSSouznhyWV+PHR k TJN9rMnuCNkcQQMvnA0pYQKnY 4s6EzIqCgA7SFjrJ1EdRQFmje rtZr00dF3tQjVtPpE6UZfbM5H v vrN3KZTwdQTlSZusVGO8B10lr 0J5IVXgEOMnYOT7tNA0tR0kaG lnbjogbGVmdDsgdmVydGljYWw t JEydS064MQOnwXnjIl2vgVO6M 4EcChi9ELZpqJxfOG8rjDAdCL rvQe9xmWuhuXafIS3xVMUwdnp w KJVljS3jZINqeRMveWvoPL9dW EGncknma281KxMyRYS0PJQahH PjP8DzzJ5lRzAlWEZyZDSoW7P l jLJaJNgoK573NRvrHrU7AJKqz aNhR8RpYWCeeFcdRfU2d6R0Yc 5SbCLqQLKwXI40RI86EL37I5L y PjwvdGFibGU+PHRhYmxlIHdpZ XJtPVxrCNSrNkHfwHusSA4iWd 9lDLQkCJOupFrsaJOoQzQcq7y s CKPzEAhkMC5rnVgnW7HfjJO7T WEgc7j9Nk25R71cG9BciNL+PG IssTC3wUF0eY7hKxUcFqA6TMq p W000WfElvDNaAmdbm2rqg1bju Pa5SgEuKBPcsgMlnQryBTW0o8 NyFn12M17rTUerNYNyRUYhETQ i WKDpuDqrji3iwP5kCf2+PGNvb PB6uFZ0cT0zPmHoQuO4WFdmI1 38QuRstEYtOwocP20hH6JoqXH + CWWfHsa3EJZplSprGV3xrCAsO WoiXc8qDGK4UgVeJuJrSPqgO1 MsYLVkhiojxbjcqGQ1WYUeQOJ w uT86Yi0mxFxkXp1iPSRvEVM2Y VDjaKOsG7MpmT6pTeEuZHDhMO WpK3MazSTpKKcnC506QJbvEgG 7 PZQhgoVyD1YgZYAsiHqyQrY8h 8O9Mg6YjYbhaUHxEI9sSrAgTM h1R9NsGwx0TTXqbNwuNC9urED k JAbsVc9vmSsstMpyEM5sZKElm hclt258XdAty3llMOOhnOHgCJ xlWTG0K13mq9H4HVTzQNKeHPH 7 pLR7bZ9zgYfnfenwaCAlxNmpz gKxzMaiCBmnUNbqS454VHIolH ayGnEOHrh2N3XpKpd9DKYxpOq s VP7fwAYuPJpoOm3xrGenpEzsR M0vKQSmxdjft725YwIjn1jrVG GmvTUqFXtpFPI7X33ft4E3RNA w QACaLLK4cMX7bG7fxYnnljptr GVmdDsgdmVydGljYWwtYWxpZ2 32EJUviJayCr8AWhr0Y4MaHvz 0 WMYsaNzjMS0glANdUBvpDa8ae WfqaGewYY6bSBBosjxvx801Of Vgw2ygPKUhyFOaZZfwMTU2Q78 s w3U5DRXfHZHiZZT3xRO3sA8gu GlnbjogbGVmdDsgdmVydGljYW abDJuiJ700WQAvjOvrEdOfdTH y OjwvdGQ+NT34xg96Z4GhPfbqC yu7HXYrSDA3vLF6kP5lMAZbTT qax7G1xFG7B3IwxgGzmj4jx6q s YXBz (more content not included)... [facility] Consent for Treatmenton 01-29 Consent for Treatment [id number]#1.00CD:12 7 [facility] Multi-Wound Charton 02-12-20 Multi-Wound Chart [id number]#1.00CD:1 27 [facility] Nursing Assessment - Woundon 02-11-2023 Nursing Assessment - Wound [id number]#1.00CD:1 27 [facility] Nursing Note - Woundon 02-11 Nursing Note - Wound [id number]#1.00CD:1 27 [facility] Physician Orderon 02-11-2023 Physician Order [id number]#1.00CD:1 27 [facility] Procedure - Woundon 02-12-20 Procedure - Wound [id number]#1.00CD:1 27 [facility] Progress Note - Woundon 01-29 Progress Note - Wound [id number]#1.00CD:1 27 [facility] Coding Summary.on 02-10-2023 Coding Summary. CD:[id number] Gh0bW w+PGhlYWQ+QU6KPWVfO78iaIN leQ8rR3EWAZrHGzseKJOVKPpQ GuRozmUnDN3esPNaYCEb IC8+QF9aDJFpIdgekSAka3I6t DX0R47tgp2lKTbbeCQ3WTLxXv Wvkndsa5ffxJi7BMefZynqMhS t IBTtnX96XCP4hO06Lb80qSSqk XSho4cpoZf8HhIpYANmUWP4xS zgBMcuu9KfAFSrW34hqZYuw5Y 6 HZYeqYncvWBjTySuxHK6jZ4pC Oofxaojb1bpdsxpWsv8eb29eC Uoh0O6zDH9R6TwosC2TOHxpWB g RmzenCWIdG4aripeh9zpmdacC cEwPSUmNAq0ICk3AADooYexIk JfAN25YXX3VJAhbnVsR2AxTIM s dExxWnK7k6T9Ci0BS6TPLalxX 1VNTUFSWTwvdGQ+KA20if66W7 GkMwaiKee6QIXcLSB8wCX1yO3 n WMZnZTaha3C9cSY6G4IyeqOkl j3pf2ebETMiVYzfE38pqCJsi4 U1ZOJjwIZ0FCApdXnyLzKsjD6 3 Oyc+EYLrhPowt8JiWzmxs7cqz 4edvGo6TfudSALkzvPyrEnzBH N3v9ItQg1tHFGdbEX8gFE9hL5 i JhRqReW5RActL135VvNacGPjT ihbU63uY1LyuCY+ELNjOvg9TZ JttNvjFS1jU5CkKHUbjoauaQW m qZzkVN8aCFNnmdimBVNuiH9bK YCgX1w9ZfJxQsJ4XVkyK5YkDB YhokdoUm02uT7pAqDpNhV6KXl u V6EoekH0VYIjrQUfRVnfGOR6A 23ox9N0USCbNVGhYBX3mRZ0tX 1hbGlnbjogbGVmdDsgdmVydGl j MIgiOKxmZ866XTShyCowNiQvK GluZyBEYXRlOiAgMDMvMTMvMj AyMzwvdGQ+SGDzATM1eOcfMBM n xCXxHPozSg6wsJvisRmsKD9gV POnuhxqWWPmvQ3zQKCjxLNgiG rvED0dRFFjpwpsb527LeLwRSX 0 MTAgrBDxG4HsyW1dYmAdHAIwO NKvO4CjsBDmXPnsH968MOsjBn T5SCOzgyWnU2IrHXDzlYbdCtG 0 h7Z8Oj4Ux7UsilhgO1KzuGZjX pFeKtdhQKo0V2NvRbsruRR+PC 21ESNmAJ05UIw5TJQ3wZmoUXo i TFSnH2WrnB4lKgHwFRNsRJMgO yc+PHRhYmxlIHdpZHRoPScxMD KnEvQknErxXF8sOx4pCSOiKYW v dXbazBWzFeZsp3viVFIuVNlqK L1wgVrjO0IdySO7CZTjk7o6Fx 97Z04bB2HhlQL+BKQqkJY9wGD 0 dN4rExNrKlV7RHnnT593KmTlg FOgJdhsz9bdh5odaPu0GrL7RX RgnvFajXajSMU6w3GiFp62L16 s IHdpZHRoPSIxNSUiIHZhbGlnb k3zpN3pLu8+TRAncTL4gYF3qC 2rFlOoXrK4CAbeR301XjNsdSY v Fnwoc7wpr2frgOc5GrKgVCBvj gCgrGcsUVQ2c0QeMk47E9GalW hqr4MiMaq7rr35gXDlj6L6iKW 9 Q9KcJNWuhnnkrJPupBqtYR6wU ZIrhczfVYXmrN2pBLYqA0b6Ra IxDoT8GBqhF5JpnzO3WWLhnSN g JYVugEBDaW7tvrrdf9apdvigD gPoJXMiNJa1CAj0LXQunFmuCn DrCXG1YjE6TMV3oTVjbC7jaWb n oldpfD7oFre+AHM4vTOhuBWFH L8tYhaguUZ+KFYbEER3oEhyRL gxRKXwxH0pSHEfS1a5PaXnWsY 1 WZugQ9UgyhA5PEPagDRgFBApc MZAhD2nrcsob0oursyuMgIxPZ MkCNk2MEe0GVUnqYrjChZhSMW 0 VdA1MRV7eUPtyM7zxXafbglgf G9wOyc+FnmydMbmDQF8WIz7L2 BrMbq7XLWvxLmcYF8ypCReCGb u Ww3keAobiUfvUI6dXYLfiguxz 870PgZhx4daUWDhhTMuXIcxCS N0S75kt9L0IMVnKYCuWXN3mXI 4 dK0qhQgufqfgvRXxsFzmwwJhv LnlUXntKIqrH752ILUslTxzOl IuODw3E9ItKsv8PVSmnLvqFT4 n uDLbNIyoTk5tfFcetLolHU3uC XLgeshyr157CzHay0mkHPHpvC EgRGxtYSR3S29jm7S3AGVeVQT w QIH6uSM3tJ4ejReuzbbrfHYlu CuopcJpjPxtNNcdCXgiA027KM PkkCbdNsRqqHa7S3CxIoe3TYY z bNxwRL5rvITdYFfaRl0enUsxv KiiZE7yDRDmmvlbr723MmYev0 icYWHjsPGiMXjxEKJ7M92rd0H 6 FVVcSKSiOEU8zDD3eV2dvDsgl jogbGVmdDsgdmVydGljYWwtYW xyS857ZWZxeQtxJgGkvVmoiaE g FXzwSEl7G9LcMbrgjGO+PC90Y IVlCZ29hFPpeTPqe4vciKt7Nw VuVPAdOAL8cHbpXZzwo4NaQSK t R01duJLzd8K7DGFsxOpcuFLqN mMzfIJ7uX6fSGhsuiyzk1jdjy juMbizi4xyet59uL44D61kHBo p XBUyACZeHKNoTCNgvPmkem0sl G9wIi8+TFXykXA0zJF3uU2nOW TmTwF0QIsnP476DoRrtRNvVxu j k5vcy5ijkLz6DlE6QHWpvvFje YhzSFB0d8LuLd78C72lAOonNQ XnLWTaCUNrVIYzzJqjqr6ciT2 w Ii8+OFRwoGH4vRC2oR2qZgQrJ iK5RYhaN052FtYblLZjBktrY1 3mX2HqpMD+HIBgPrr5SAOfmXq s MC5rpQAtBSlgNa3gYTG5CuEqQ dPaXNbtI5TjLSQjdrzbtytsmE G6YIZrJUKpdL31Md4yoXqnBOA w lDNXyH7eehftp8jasupqNmFwG TIbBEa1MVg3HHWuyHfqJkCcPV B7WoI2XZK0tNNesF7naDfcoag g uF4cR5XgCCZcsrbmVq26wW7tY kNiFyN8NGxwXae+VEFOTkVSLC UYM53JDNOgIKvqnEU+PHRkIHN 0 dSnqQUwfBTQvwH3vKQGqO7s3P vHuQvD5ROflM2LrTOBlwoxvKa 87zA5jTfJyQpS9KJpcQ4OwhwN 6 GRCkcWEnLCpkOSA8U55ms7D4O XUwNHKyEBF2vXX7mN5niKnsnl ogbGVmdDsgdmVydGljYWwtYWx p A901SRWmmRsrXnEjLqK0LoZ3Z Rz3O5TfHag1TNFpsBsbPA1hnR AeWJwiPx3ffVpqrFzwQY2uVBC p kpqjLZGdmL8cEBXkxLNmuLvkC Z3jQUWnlyqdf883IgQyPBQ6UZ TmnOUaC7ZypK4eSuYyGPLyHQQ w O8CmpBBpALqgE378KRhaTjB3F OEhqpKnL6PxLPNqbPznGrV7v6 U1Nz89XVTTFIKwjhblvYF+PHR k YEP4kLtmZNweTQWuwJ9wYVKgC 1d9GlHoOkK9VOloD0OoTTOand akPe80sX4aJkKuHsN3MPnbK3E v unM1PNQycONsHYjwUFS6V61xz 7F2GDWyTQVxPMP2aQE2hL2mvM lnbjogbGVmdDsgdmVydGljYWw t UXswR737DQEfxDyjPb4cyEG3P 4JbFqe4VFSsaMuhMT8dhYIbSU acOn1szQkftLayYN9hNTWemuz w JYYlkX3wATBxrRPbgBhlLJ0aK BMkwarom723CsRqOLK2GUWzlB EkV1FjhE6uVdZcEOMrBSIaZ2S l jIVhNMdiH408YVxsRfS2RASza vUlD2RcADXqqVtpXkF0p0E2Cx 3HeQGbLMVoML93IJ51RZ67G9W y PjwvdGFibGU+PHRhYmxlIHdpZ ZIgZIbgVUSnEaTtvHbhHO9uHk 2lPQIdHEEanJxjiSRaXzHgp8b s ZNEkIZreBM7rdUgwD0VxcTA1D VAms4e5Eh50P69yM7InaWI+PG XihBY8xGD6zI6gVoUfBmQ0UOd p J301OtVpbGZdNpkhx1rmi1aiy Sa6WsRvMKQsgoFdqUikZBT6y6 HhTs37T82gVDllXWDwGCQzROJ i CVHxuMseld3xgD4iIa2+PGNvb GO6fUG0bC1hJaRkSkJ4ZUfpT9 73PcQamINgHzltI03kE4HvfVY + STJxZic2UMRjbXydFE0psRJxS WpyZn6tVQK8ZyYdQeKiCZyxY3 ScWMBemjnpdlrjrBR4OVEgBVD w bV49Qq3vdStaBp9cZHFrTTA4F WFdgIVmO2IhtG2cWcIxTVTzUY UmA0BkmRFmOCjuB261QUjdIeG 7 CAQwtzEmT3TaAGDgeBbzGsI5p 6L3Nu6NkHziiHNgHY3uTtClSO c3V2LfBxg8ZGRfaNtaUS1vvLY k ZZayWw5afAyjpFllPK5zQYHnc xcjr642MbVra2bjEXAtuPSrIA lzTCR8D38za2V9FVRfORLdXIC 7 fLA2jC8irFbdybypcPKfuDwbu wKndLapKTpoITvoG366KAIwiK ruXmHJUdc9X1ZtMmn0BIGyqGh s SD8oyKCmCJrtSp9wyKynoFdsL U1dKZLdqqjts683RbJba1qyJT NsvOPcQTyaEBV0W38mz7O5LJV w NHRrMAE6lQA5bY6vmNtazgcyi GVmdDsgdmVydGljYWwtYWxpZ2 95FQGokWlrAq4RYfh6P4MrUck 0 AWIvqPidDU4ymODyQVrjUe5qb ZlxuWviMN9wKQFuiahod332Ah Puh4eiTESkaHBuTKxtGDZ1Z11 s g4Z0GWJyBRPhGME1sMG8cS5vw GlnbjogbGVmdDsgdmVydGljYW qlMPacO803GMUkaKicIhXnkXF y OjwvdGQ+JN10xt43K5SvSzhgX gk6WPOzFPN7nGD7lM6gXZFuNI srt0F6jZK6W0VtmlUkjj2mo8o s YXBz (more content not included)... [facility] Procedure - Woundon 02-07-20 Procedure - Wound [id number]#2.00CD:1 27 [facility] Consent for Procedure/Surger yon 02-05-2023 Consent for Procedure/Surgery [id number]#1.00CD:12 7 [facility] Nursing Assessment - Woundon 02-05-2023 Nursing Assessment - Wound [id number]#1.00CD:12 7 [facility] Nursing Note - Woundon 02-05 Nursing Note - Wound [id number]#1.00CD:12 7 [facility] Progress Note - Woundon Progress Note - Wound [id number]#2.00CD:1 27 [facility] Coding Summary.on 02-04-2023 Coding Summary. CD:[id number]:[id number] Gh0bW w+PGhlYWQ+RK5QXSInF13hhBY yqB9HS3rWCX1GRSTXPPDUOG5N ML3coCQ0QBdqX0NuipXi MrjgqGZgKW33LKt6SEY7lOhwF EnqsV8xuLFnV6x2VrRiBK68pZ 84CVgoROZvFiB2KhWlulgyxFU y A4wrYeJeiJQhUbz+PHRhYmxlI HdpZHRoPScxMDAlJyBzdHlsZT 4hBu5xVUOeHZXcmEufzXNfSpL j k2cyINEqGDbzTO4qcOrxR1Oct HE6YFWqs5z9Yw60kQC+PHRkIH P4uCifHItpt108BxVir8paDWC 3 oGXiRNziDOR8X72qg0V2PSVgH JGeHEC9iAI6pP8weJmoluseL0 QelBRaSfL3EQW9fJBzbW6xaWk n zxvczW1tIoh+W75EBU4EZZOGM D7PTfg4D2PkCcaicNR+PC90YW EbDC08mLIqtIBnu3lbkSo0KgJ w EFZeVHT4wEuwUMwnp8GnZECnU 63unZEgs8F3PGMsrKmfwTKlSn EzfAN8vA9jMDczhyoea7ykbso n Vnbng4qnnh67yB00R43sFYjbZ VPnAEA8JTViSOFhyVwcyy2xzD 9wIi8+EOsvx1fkp2nayIt6MfB w ITNhlbTfhFpvJAI8j1OpYc59K 7MzcIwvf6WkByq8yh33hMBzq0 J5xXM8VCqxYZVpyY6mELsuAoN 6 JEFlMzHgjW67mYYnUHucBy2ku EbxeVepFL9xZOIysvjtWHHogW 9bHKHwpNVyeSyjMS3oXOBimtf m y978OlQwZAD9EPTjwSRfE3Zjz N1iAxTxYSTzJFVbD0HlsQTvSJ cxO364XJzrInU6SXKoxsPyD2U s RJUanVqlJkP1s8S7Vs1Ic4Kue bhrPTX9ZPxqKVLbWfX2GuVxJe V2P6QhGot1LEEvgDwsRS7mW4E h FQHtvuvhxuouaLD5EFSuXQRus C96zQTpCEqsWn2qd1Y9z379YE LuZENdfS85Gc4qcUvbKABmgLO U lC3nqnztk8oaxjowYwKrJZXhT St5DBz1HETkaCqkRlZyVRA5Cq J2UDF4yICfcR0wyRuvupgcmO3 w Oyc+L42fyN6yYCO2GRR4oewsV QSmhaPeEH96LF30R8FnYnlviS FibGU+JVPbbtJgcKnwOS4wCyU j j2qop0WnDIrmF8ZqXAYrYGzuQ vn1PQMmUDS6mWZ5fJ5gWSFcPS lrd6D6iXU0J9CqucXuaa4gs5w s UNBeVPlqS64aqXRab7Y9CAGww EQ3KIBhxLorPtLkkR72Oaq+PG SnzApdm7DbJvlds8tpu6inkGp 9 OgMwTNFhivLwoModOHM8b8EjA o66Q20lJBkbWRMwFHBeVFReGI JjlRvrst8tbP1dNf3+PGNvbCB 3 rLU1qJ2oGAXqPyE5JZxpH393Y qOujADoClfmm0yvs4pbiDy2Iu OzMLPdhdVwiBhsSGP9c8AqUr7 8 K53qLOvnIXLyRYDkTVApBQGsi Bhmft2fpU4iUx1+DL7kp4swmo 04sL91oKH+SPXfVCQ5cVxzARg w XJTdqI3mVMaoNaO2IIRwNrNlb I51vDJdWHfvJq7spNxhvYxhPN 1oEWXdtnuny474IdVyj9gtAWE w uOLtQDkaAJF7X96js3C3BELhB PHaKNT2eHD8vX2vzFqchqiitQ EtrIhpbfQjyHrbYCplSMptB59 6 IHRvcDsnPlBhdGllbnQgTmFtZ Gb8K4RrPnw8KGQllUleCZ5rhH FrELqmEk0luPypcWvzHH9nFNH p rdpdm764PpKwy1hzDLAvcFHnI PslMPM6K43zf1K8LYZtMINxPK W5yQO8sL2qeTgcyioliYJghAw g xfRwpCjzPXlvWWrbY072YZVzu TnmUfWpfgIoXIYghCR4DJ30BF 40xHSnx3H9oHM4R7TcXMSvhrg t wblbjJK2IIMtALVtmJ88Tt5xi ZkaBa7lCGIeMDV2AXUeyFInM7 BpuA8lNvYfAOWiIZLmB0IdzSJ t AAznG769OJptEcW0BKKwkaLaH 1PaPCEmfCumOeV6i9U9Pa9PD8 M7DW49IG27cYZwg1R4bYD1Y7K h CYWgsyylztvfhVN0TYAmINXit L49Ee4quXvxAj4sTQEyOVG4BJ MrgBWvJ6CrvN5aEsGtAPZzUWL w L3AegXShWNoqK835ZEtvFwX0M CDnmtSrA9VhCYZffSgmBrB2m2 D6Lh4ZJKx7LD48JZ57yNZnx2N 5 gIT5T0VeJWRrciwvhxakyHG7W QYaNPOriA51Pe9ehAtbSw5hXV FqWYC8QPWbgPIyY7QahO9qHcK j DAHuXSMhN6YvrBIwRJzdS768R XbmAaM7GHHjamWxE2UaMRKguQ hxQbZ5f8B6Px6EOOHnDN99EKW 5 rEA5EE89MG53F0LtEtmliNFfx +PHRhYmxlIHdpZHRoPScxMD FzBpPieTofWR0sIp6fESCrYHE v vGbpoAGuKnLvg5yoQEAfWCdkH O8wsZcrE4TjbOH0CFVlt1o2Pi 24D24zS2OgaAV+YZUxiMQ0zNA 0 cX1dGmIyOwS8LXwuO114QzCsz BKnIwkvi3key2tgfBb9SeY2GI JnjkLleApoUGE0c0UlVr73X24 s IHdpZHRoPSIxNSUiIHZhbGlnb y3vkZ7pUy1+HVUunFA8pUW6qN 0kRqNhSiO1UVifQ576DgRsoAT v Dkzvs1klj6lijKn7YwHbXNUbl mTweGesXIV5z8TyRi36L3LraE pdy3EkLbt6fu63pTZqn7B4oXU 9 E3VrYPHcpalssRNloKceUJ0wH FKiqarhMXXkrQ4lWHEhD5s9Re MjUcM7UIgbH6HzsiJ5JRQgwLR g QVtaVSW6I59od6F4FKWrHGMaE PO4uFT9mQ6ofLhbbgfwoAFhwJ bnsyJvoAytPCwbCMjpF250ORX v mCxiAJZpvH3vSVOnuGBynOujM V3aBSOxhxwoFhKIFv9NIqvcUL 8GOXaWZKc4X6SmCre1XQPbzZe s WO4lmPDkPBuoDb6zfQpgxEflK K3oAJHeqcbzHGNgoC2cAMEwfQ KhfBbwEC8dTXQpoqygb949RtS x WDL6GBDsxPOcT7OzzB4yOoJrL QHqZLGsD5IceRYeHAklT937KY eaGhS6GPMguuIeY6MpOPJrwQf u NsY2o1B9Xn6zKf1dXJ3xMUB3V W49TD85xQAak3P4mCK4K7HzXK WgimumvetvlDE7URDkOQFaoK4 7 iOXcCRdyWr1hq6J4j845NEBmI QCsqZ47Qy7giJitFHWllGDKoK 1shkslz2duqkdzJrAoNQYpPEa 0 BNl1QJCaeXhjPrZpCKZ8RuT4V MB5tWCrtK1upOeowuyeiV0eLf c+BfXxEGEvuwD3W9YvUta4UUW z bBgcVO0rkEFtSAnjYu0sfKnrf WpwAU4bEHOoktxaKHHmkZ8vPE ObgOQjvZvjME6cAUBkswwzq85 0 YdEaOCM7AJQzzQAoW3BbmP3dL kZrQSVzIXNjA9KziBHcRHuaX7 11MBnrOrT7OCDfccFaA4LuVOC s aZqlRxE3m5R3To7LQIdgWM90T G49gNLen4E9fID4C6MaPYJjkf vbckhlkER8KREiRWHchB93wLB k HWpuWz1kd6G6r279JFCjDXCfh D41Pz3wjXskQTUvzYFGkI0kyk fgw0ybuvreIaRmMMRjWDn1TXx 0 RJEmqVucDqOfKVL1CoF3OYF0d RNhvN8dyWzcuttzqY7tNiu+T3 W0uBF9pIAkaMbodMO+CV87hv0 8 X0XhCcheYom4JWSbQTM4fLX7f A4pUADaHFjzx2A1lJF6I8Nzdh Mmkq3nu0doCIVeJYztT55gfKN w c2J9RCXkmLY2RBLemNocDzMdg G93Oyc+FPJdmMzxy9ZsMuadi0 hqb7wtbLm0OdLdZHTrsfFvaFm u MYL7n2SsEb41O85hESymBQEbJ RRzOZNeXMBahAzsax0skV2cQr 8+CTGkrVZ3fPV8hJ6bVuElEtU 2 WKxyK488RcBshFXwBelhf7uvf 0gwdIj1TfTqSPOinjBvmHzqGB X5o0UxQj14S8BtxNrlx7McQrh 0 kb90kUBfv6X5kZW0T3IuQXUgw kvxfVIdxIqkDS7gDAXcfcumQQ DgtQ3pPCCgR1g9QhZzVkP6JTj u S0ZaogI9WVUyvMYzPJBqjZFAz O1kjkddh1koclzeWjDlRHMyPK u9PMc5DHGcdLhwXcRcYLN2WgV 2 VWK6tDAtbP7arWdbxleyvL4aB yc+ZCd4r8bhcQObRE1zfOQ6YQ 52UE03gZAzd4B8hPL1S0NoDIT p miuifbmubGN6XAQlOUTucW78U j6buLruYc8zMDZdMPT7CJPiyX KfR9YoxN9wHwKvIQYmSVWxC1E l gTOhZOwcY850NCsgTjW4BAVcu zYcO1NtAWFgbAfxEfI7n7T4Gs 2KOQ03BB42QW16vTXex0T2bKJ 9 P4KcDGAdverytlorfAX9KFDeB KPrgA48Vg9jlBjzJs9mZONbAW Z8LWVioDDpA6TssK6zEfVqKIB w ECEwX7YklXGmRMljM207OLnzQ aL2TFOlueVbL6IqJKWnxPffWr T9j7L6Qr9EXr32EY86VQ98sFQ g j5Y3hTE7Y3TqCJLqtquftaasp AP4ARXpVFWnkB72Mc6nfExsDq 1vZVRlDCM7LFSmwRMsM0IwgD4 y QxYiOIMlXKYiJ1BugAGdPZdqA 922ZDfuUrB9INVhsqPxS8ZdTL HjzQdlOjB4e8V7Wy3AXQrggbg 8 D6GcHjilkRX+IA59TBNmHH04d SXlvRHzt3szpQe3JlQbJEPaVL I7mBzrFTtpz0DpYCAnH39qyZU w c2U6 (more content not included)... [facility] Coding Summary. CD:[id number]:[id number] Gh0bW w+PGhlYWQ+QU9QSBZkO49nmYQ ueJ0TK8uJTS1QQDVYJJNEUQ0B MV8rwLZ9PMoeR6UgasNm UmztzCShYF58SMj6OYO6pOkaS AvcsG9njTPqU6v1HiZsNE43wY 81BDwbTUEcQlT5JqPcirtryHY y I7fqVzZxmNRcXwz+PHRhYmxlI HdpZHRoPScxMDAlJyBzdHlsZT 2cZe8fKWXcIDPkpRfmpGGvZvB j y7kkTQAkIAojBE9odBphQ0Yao JO1UXZca2s4Xd53wUS+PHRkIH H3hGjcINqyy262VwPop9otMQA 3 fAIjVAboTSA7D88eu6E5XVRbZ TWnFFT2uBO1xT9wvQukjhhcN9 SnoIShBoR1BWF3hEZsrG1ooNd n hweaeR4uTjq+A79LCI4VODBZB V9GFbt7X0FuKrwkaLV+PC90YW WeGG86qUMvlRAtj9apaMi7IuP w SDMxSQO6rNilHLoph3ShVHOvU 00goTMmp3X7PTWkxYvtyGYgZx RjkOZ7qA8vKMmppthpt3woxro n Yudob9bvsp73mO95I09qTVnlF ZJlAQM9SWNlVMZonBdyxc6yuH 9wIi8+ZJuou6osi8mmiVf6TrI w MRJmchIexXxeNWU7d6GdRb66F 4KehEbtu2RlPtf4nz53vFPll6 N4rUV9CRzbOGXjyV1rHNxnTjB 6 NUPqPhGmjN99gXHuBTosGq5qx GzueXeaHX9eLDYwoacdETIrvC 2qPSBvdCMirAhvMS3cXSVqczs m y652MhKuMLG0DRHkrKIvV2Uqx U0eFhEqDIWcCGJwJ8EsxRWhLH xhK858YDjjDiP6AWFycjOoO6G s HMZvwMauMsJ6f6K8Ar2Dm9Wby orhLFY1YGtwOZQfEeQ0OuMbBy Q3K7JdSvv1MCYnvFwrTH0iZ9Z h UFBwfwlnjsozrIR5UGZlXPQvv Y85sNHlNZglEg9aw9V3q762LA SjLIAckV13Lh0szQpsMWExjPC U bX4skievf9chdsolBcKaWPZfQ Kr8GZe1VEOucCybOhKwQVX2Qz O1NFU6rLWztQ6ktXzeinycyN3 w Oyc+A34kjX9qTVB5EHT7cbrtT VOvvwTfAQ63CO28E4AeEzcciY FibGU+GGFfofHzsQymXA9aNoA j h7guc4JfQYnjP1GsLRYnQQatL ud0XICeVNP6aLO3eC6hQJMxRF pzx4D2vEP5O6KuaxVkpd6aj1s s YCCpYOecF31jiHWkx9M1RZGsl KH3FXWvnFthQaQfnB11Lmh+PG NezDzql0OfAclbp8lnl5jobOa 9 WyRjYGWywnLudXvkQWZ2n9HtU j46B67iWPwrPCLqBYYlKTJpVX KbvBwyik5raG9cVd4+PGNvbCB 3 zRU6zQ8sNLYqErM9HChdC284B cFfmRTmErhvx3wzz7ejnWh0Kx TkLIJyqiUfeRkfOQO1k6QzBi7 8 T52nVAdvEUOhSFBeIYLbTYTsg Dnjmx7cmT0tTm2+VB0al7nuig 16eC25wPK+LNCwNUU5tYmmKXf w NXBlnA0tAYyvEyX8GGKmJwPoo I03gCHkJVzvFs7kxDslfSsdWJ 7mCEWiuyhdd107IkYie3tuMOK w lIEuLLqqMWG6F21cb6P5GGQnF ORxIZT7oEG0mL2roHdctwatwU HpzFsshjTrrKuaYJgqRAnfS03 6 IHRvcDsnPlBhdGllbnQgTmFtZ Tv4I4JmKyo2LDEbpXpmKY7nwF TcNSxzCs7rhAxmnOlvVH8yDFN p ieqdm199DfSet9vaORZhtMWmP OyuDSH8F30cj6V3TCFlZTNvOK U0xDO9gU1wtXvkkdadgGInjRb g vdNwzOhiRGcbQCfrO023TSYxc JzaZhXhkfMtAUDtyRV0VN46ZE 60iPCna4B6rZN9N1DjJPLodhw t hnyhpKP1IGVyPCSulJ13Yu3dp HykOg1sWCAuKCR8PKXfrCMiG5 OzvQ7qEoScDKTtCGIqM2EenTI t JNvdC822NAhnNuI3CMBefaYmC 3HkEUOhrEbyScC3r2G1Kt3WY8 Y4EC67JE05yGUje9H4sSW7O1G h XRMzflpbjfxyrRR1LVKgKRXvb P21Vs4rpKxzSc5mWSPrLEM9IX OndMWeU2BbvN2nYfUqBOJhSCN w W0FlyATuHHqpN629ZWyqLbU6Q KCmccJwO8IhUGUyyGynYkD5n3 K0Gs5EWTv5MP17HI82gWIvs3R 5 ePU5D1DbPOElnxuyzkuchMF1O ETyANTrsY86Kc6mpLyoUe0aEZ GpJIE0WZXmsTJsP1XkrE9hGjF j JRRySWHzS4UnwDNiGLzzZ360C FyyFyD8NAZbpqWnG7QoDYWvnF rcNxL6r7K3Jj6PTXEcRG87ZIA 5 cPV9TD02ZQ42Z0TsOkezqNZsc +PHRhYmxlIHdpZHRoPScxMD XfMpTitTwcKM0jUg7iAEPxYRU v hGziyTCrJqVwg6xrLJUaOOonP F1pfVljY6FnlXW2BLZmf2r5Nl 24Z21fH8HuaYT+DKObzRY6eTJ 0 mQ6zVkUoSlS6XHvoO295JhNcu XHaLbuwp5vqa7juuZa3UfW3KJ MbzbHbbYuaWZK2u4RzEq75W18 s IHdpZHRoPSIxNSUiIHZhbGlnb n5pzW2uKa2+GRVzjRN0nFZ5oK 1fXeEeYnF8QCqbO748KcCxxTY v Otuwn2fxo3eznLg9TaRoDBVmt uRugHvxPXS5c3KgDl65L4PgbI qnq7ZbCbj0rx00jFOtg1D5mIU 9 Y5RbUSWixbdzbMJspZacRG7cZ RVcgiyrAHLhjL5aZCXuL1d2Ix VwZmR4KNseU5ItiiP5TTIyhKR g YRvrNCD7L53mg7U6RLReQTGcH SX4gYO4vN3xhFybpthubTFrhB qqjmTnqEtoDQqiVFrhY244AQB v cNigUKAezH4hITWvlBOomTifY S1xUXRaoyunUgIGOt8MOgpeOO 6DXHrUUNd0X4AkBhn6WTDckDz s FJ5doRKyVOueSw1kpMnpvFclT N8dBNRsguxrLLHfhQ4cFZLotX OvvQdzNP2wIBXmumqwm884VbF x HHB8AVFzeWUyF5BgjR8lYhPmI CUkTQYgB8VaiMNaALniO719VK jvIbV4DYRekdIuJ5XqUMZaoVm u DkH5s3D3Se4gSp1fIS2iDIS4T D21NZ48jNWwe4E2xVJ0G1YqHV NxzanhxkluxYG4HQQeGZGuwG9 7 cCZnGJysPa9zg8E2d925PALxE HNvmS50Uc2xiLsmUAVimYIPsV 9nwronf3oyrjkjDcRdRSTmSPe 0 FSd9SROuaSoqTuKuBHW6XxW2J XT0jNDgxQ8hvMtddvrdfH3jVt c+XvVqCGNhljJ3G8UsOcs6SRH z zRjyDV2thXHdMQopUf9gkFciv CoiNV9lXRVwtoldPYZvxY7hNX IgiQPirZwzRS6dDRYtwjihg08 0 UvTrDIJ6RAEduLWeF0LmrD6yN mJgLHNxSYPbU3NnoBWrXFgyC8 04NLtuVgX6ZOHgyoEaY4UxZGC s aGaoAoX1k7X9Fm8ZWYzyCZ36G L01pOUqt0V8tTR1Z0ZvRHPeuh girhqsdRO0POJgREGyoX22aMY k HZxcXu3xl9Q9j518GRAuMEEhw Y25Ps0sjKthBWDfqLOImP9qqz mqk7nxffjkDmOjHKEuTZh1ARr 0 QNSfwIsmUiPfFQE0GiQ9NEH0o XKhhH2syZjmuutdcB8uMjw+T3 B6oBJ0uODkrYphuUU+LR65ia4 8 E9PfJrshDbr0HNAqTVX0jOW5t J1vNKApSBuoz5Z8zQI1R8Amwz Dmfy2xj4acDLRjMZatZ19egQB w a8X9ZYSoaJU1BOFakTntRiTni G93Oyc+VKJshIbee4OdXfxgo8 whm1zxtUe2EmIuUTMjuyHsoNz u ZLE9a0SfKt61M13oOWhpNCZiC VFfRRUpNXTflRnpda3vdF5zFc 8+QDYsdVX0fJD2pT1kUkMpRvE 2 IYhdI822GoJxdMCfGiufm2jcj 9trfUf8XeQiZRCqrtKuqAwiQH I5j5VdRv79W0BhfXipe2AmJdx 0 ni27xOMul3L8mXC0F7ApISMeh gxzrFMqdSqqQD9yMMLuerpmWE QasM3kFFEnQ5f6WaRhHnC8CAf u X6TclqP5UHRvrJCwJIEhxBINn X3ovutho1ejgwbnZgOzGKZoBA b7TLy0UEJszAygWrFnKIL9IaN 2 EDF7zNVedB3xqGumsdkupR3gQ yc+VFa9t4qezMNqSM4tzXD8KU 26TH95zMHnr9Z0kXU8J8ZaAYK p wltkcucbhYC6MGMuFWEcyI02N x9shMmuPu8zUONiSFC5UCIwxG EfE1IguA6kYoLeAAZdLMLlP6H l mHPxUPrrU221QGzhClV5VOGwl eTwA8EyWOKhuBiuAhK7u6Q7Nu 5XIT17QP14GA45kUTjl8T1kAO 9 S1EiNMEzkiuqcadfyGY6MQQdY SCpkQ59Zd4vyStxMc9hLFAhWJ G8ZVUisFGeP7AarH4lYpLrQMW w LGMuD3LsoYAqAGueI819YHaqO nG8JBIzukFxO6XgRAIeyZinYr T4j8C6Ls7ZNo82AG88ML48bXX g r3E0mNF9D4RiRSVjnyoypaygz XH4FXGfESRlhC42Us7qcRnkXo 2tBRCzCUV6IPIktSQpD2AxbZ6 y WhVeHINyFYBvQ1HmvCZnFIzuZ 046ZCfqMxU7YCGdyrTbX1KyTF WnwDnyCvF4w9C4Dq6LQZwdscn 8 W0FeOadigVN+LK24ZDAiBL03g ZNhjDGmb1mbyKn7SgXaRHVoOQ F2sFduMMtqx7HuJFWlF55tvHS w c2U6 (more content not included)... Normal [facility] Consent for Treatmenton Consent for Treatment [id number]#1.00CD:12 7 Normal [facility] Physician Orderon 02-04-2023 Physician Order [id number]#1.00CD:1 27 Normal [facility] BMPon 01-28-2023 Anion gap [Moles/Vol] 12 mmol/L Normal 6-16 [facility] Comment on above: Performed By: #### 1 [id number], [id number], [id number] ####[facility] [address] [place] [address] Calcium [Mass/Vol] 9.2 mg/dL Normal 8.9-11.1 [facility] Comment on above: Performed By: #### 1 [id number], 6220307, 7336794 ####[facility] [address] [place] [address] Chloride [Moles/Vol] 100 mmol/L Low 101-111 [facility] Comment on above: Performed By: #### 1 [id number], 4990434, 1305597 ####[facility] [address] [place] [address] CO2 [Moles/Vol] 30 mmol/L Normal 21-[address] [facility] Comment on above: Performed By: #### 1 [id number], 1501712, 5560904 ####[facility] [address] [place] [address] Creatinine [Mass/Vol] 0.8 mg/dL Normal 0.5-1.3 [facility] Comment on above: Performed By: #### 1 [id number], 7671046, 8932017 ####[facility] [address] [place] [address] Glucose [Mass/Vol] 96 mg/dL Normal 55-199 [facility] Comment on above: Result Comment: If t his glucose result represents a fasting glucose, interpretation should refer to the following reference range: 55-99 mg/dL Performed By: #### 1 [id number], 1226101, 1405374 ####[facility] [address] [place] [address] Potassium [Moles/Vol] 3.6 mmol/L Normal 3.5-5.3 [facility] Comment on above: Performed By: #### 1 0451896, 2302946, 7011385 ####[facility] [address] [place] [address] Sodium [Moles/Vol] 138 mmol/L Normal 135-145 [facility] Comment on above: Performed By: #### 1 2131887, 1299147, 0923723 ####[facility] [address] [place] [address] Urea nitrogen [Mass/Vol] 21 mg/dL Normal 5-21 [facility] Comment on above: Performed By: #### 1 [id number], 9417648, 6072201 ####[facility] [address] [place] [address] Urea nitrogen/Creatinine [Mass ratio] 26 No Units High 10-20 [facility] Comment on above: Performed By: #### 1 [id number], 7543602, 9517802 ####[facility] [address] [place] [address] CBC w/Indiceson 01-28-2023 Erythrocyte distribution width (RBC) [Ratio] 14.7 % High 10.9-14.2 [facility] Comment on above: Performed By: #### 1 2842060, 0718429, 6907664 ####[facility] [address] [place] [address] Hematocrit (Bld) [Volume fraction] 36.3 % Low 37.7-49.0 [facility] Comment on above: Performed By: #### 1 0378939, 5318155, 7009940 ####[address] [address] Hemoglobin (Bld) [Mass/Vol] 12.0 g/dL Low 13.5-17.5 [facility] Comment on above: Performed By: #### 1 6861691, 4240943, 4790352 ####[address] [address] MCH (RBC) [Entitic mass] 28.6 pg Normal 27.0-34.0 [facility] Comment on above: Performed By: #### 1 1918876, 3871728, 5186945 ####[address] [address] MCHC (RBC) [Mass/Vol] 33.1 g/dL Normal 31.4-36.0 [facility] Comment on above: Performed By: #### 1 [id number], 3623676, 3051320 ####[address] [address] MCV (RBC) [Entitic vol] 86.3 fL Normal 80.0-100.0 [facility] Comment on above: Performed By: #### 1 8557434, 7605390, 8845100 ####[address] [address] Platelet mean volume (Bld) [Entitic vol] 9.1 fL Normal 6.4-10.8 [facility] Comment on above: Performed By: #### 1 5545679, 8319792, 6682193 ####[address] [address] Platelets (Bld) [#/Vol] 272.0 E9/L Normal 150.0-500.0 [facility] Comment on above: Performed By: #### 1 8142822, 9973576, 2920982 ####[address] [place] [address] RBC (Bld) [#/Vol] 4.2 E12/L Low 4.3-5.9 [facility] Comment on above: Performed By: #### 1 2237925, 0002050, 9818393 ####[facility] [address] [place] [address] WBC corrected for nucl RBC Auto (Bld) [#/Vol] 7.6 E9/L Normal 4.0-11.0 [facility] Comment on above: Performed By: #### 1 1346404, 7057775, 3159586 ####[facility] [address] [place] [address] Consent for Treatmenton 01-02 Consent for Treatment [id number]#1.00CD:12 [facility] Consent for Treatment [id number]#1.00CD:12 7 [facility] Multi-Wound Charton 01-28-20 Multi-Wound Chart [id number]#1.00CD:1 27 [facility] Nursing Assessment - Woundon 01-28-2023 Nursing Assessment - Wound [id number]#1.00CD:1 27 [facility] Nursing Note - Woundon 01-28 Nursing Note - Wound [id number]#1.00CD:1 27 [facility] Physician Orderon 01-28-2023 Physician Order [id number]#1.00CD:1 27 [facility] Procedure - Woundon 01-28-20 Procedure - Wound [id number]#1.00CD:1 27 [facility] Progress Note - Woundon 01-02 Progress Note - Wound [id number]#2.00CD:1 27 Normal [facility] eGFRon 01-28-2023 GFR/1.73 sq M.predicted among blacks MDRD (S/P/Bld) [Vol rate/Area] mL/min/{1.73_m2} Normal >=59 [facility] Comment on above: Order Comment: Order added by Discern Expert. Result Comment: eGFR is race adjusted. AA=. Performed By: #### 1 [id number], 0826488, 5533598 ####[facility] [address] [place] [address] GFR/1.73 sq M.predicted among non-blacks MDRD (S/P/Bld) [Vol rate/Area] mL/min/{1.73_m2} Normal >=59 [facility] Comment on above: Order Comment: Order added by Discern Expert. Result Comment: Publicity Person mercy kidney disease could be indicated at eGFR's of less than 60 mL/min/1.73m2. Kidney failure is indicated at less than 15 mL/min/1.73m2. Performed By: #### 1 [id number], 8578906, 4016186 ####[facility] [address] [place] [address] Coding Summary.on 01-22-2023 Coding Summary. CD:[id number] Gh0bW w+PGhlYWQ+IX9GXHAjO61lyOS fqS6YM8iQHQ8IFZIBSZFWPZ4I DI8hgOE8TThaF9CodcJn ThpetDZlWG00HYi8RFJ5pMcsS UrwdN3yuDUwK3s9ZjNzPE44gV 34VOzbGUKzMjG0AbArrcmpdXJ y J9wbXjDecQEgVcm+PHRhYmxlI HdpZHRoPScxMDAlJyBzdHlsZT 6sYm8rFNElFKAmhWrmrNNhKaU j w4azUHFyEMdjXT5roMoaL1Tbp HZ1FRAcs1j6Df44hVD+PHRkIH D0kZigNPykw024EpDsc6tzCON 3 kPHuHOktKYN1E99cy0O3CYOdA GIsFGV6rZB4uJ1mhQuuawymM5 PqvZVaWuU0AUP5oKIxlX9fdKk n dmnlvR5tLtt+G27BKP1BBDJOJ R2OEyk8P3TkKmopoGS+PC90YW HtYF98mBOmdDObu5olaGs8PjS w BXZbWAM5aIreRCtaz9KxWRZwU 90xzGJqi2P8GYMjiEswaRFrSe NgbPB0kS7kVTozbfxsh5qqjkg n Otjzr0qmky98pU96S26bEIsoK RGyTXG7DJIkIQNtaWwlqp1soN 9wIi8+YIozw4nvs7ootDh5OhC w HORuxlSeuEigIPU9v6SgLs57Z 4XrbFeyv6EeOvw6sk44oURim4 V7pZL7XYrvWBSrlM4mNVumAjX 6 KCTkAeQdiB25eAUxGDfbUr6ee TpaqRxjII5vKZYunqedNZRfhC 2yPATfrDVwoMpgUZ4yEPCukjb m j965ZhOvOVW4ZTUwgLKwL5Tgt M1gBoLsSGQcZNGhT1QquLYtXZ bcI520YCilHwD6FQEntlVhH9C s YISlcUdgCuY1n3C7Sa9Jo5Dpe crvSTZ8BDnxUUIeZgNeAlMaMo G6H2DhWvb1EKVlnQbwWU8iW7C h OASlijjhjnvjwQR1YVVxFERav E35sJFqEUhyTh2pr3Q5n131MQ VwMZLyoP98Tz0gjKxvGPHqpLS U fL6dzmque2yrzipcPxFoEPWkJ Fh9XZy1VMSrkBuiOhAoEJB9Bk S9DUP6wEGewH4yqTivatnseN3 w Oyc+Y57gaV7dUQJ7EHN9uplfO NRnzwGpPH54PC66Q0IiLlbmxR FibGU+HTNoyvHkaPjwAJ5aGoP j i3zhq1CaNLkiL3YwACCjXBnwP wf4OLNkHVP3uIL3mV6aUSOiJJ ytt6B9kYL2W8ZnsnQvkz1ox4v s DASgFQqhW07dbRFtm5X8WFLgu XA2BKRisPgoOtLkzO33Ftq+PG WhbYabo7RgBzpkp3vos6uirGs 9 QwUnQTGiefRojMuiVDC9i1NmH b27T13lQHchHBOwTQHsPNDuBF SyjYihqm0hwL0eBh6+PGNvbCB 3 iFJ5jE6sOIGeRkQ8WTbfC902B zQbdERvLbolx3bbn2ptxEg8Ba XkWPHsmxCsuBteZIK2t2FcWb4 8 X47vNQenWYAvFKZzMAZxDUGzs Cexbd2vxF4vCo6+PF6lb3nrnt 23pN51qJW+FTYgRRY7sGgiREq w JBOjfB8cDPewOnC7GNVxFaYwj L90tOLwXRlmNf0wgDdumXiqNP 1sIVJujiwcy243EfIyv8ylSTC w vSTuWWpnYEH4S30pq0Y5BEVjE RDkQHI7mSC0wC1dgCahxjlwxJ AdgMmrglJukYlkORvwFTvrV80 6 IHRvcDsnPlBhdGllbnQgTmFtZ Du4I1VwNmw1RDKmhKvyYR0nxN LvQWwoTl8azMlkjEycHA4pRQQ p rqpqk947XeJfr1syIARsjXXeN NxqDPO8X27jv1F9FZFhBIXjFC X0lLS3oE5soUimgumidWUitPw g bzLrqPanLTnrWEarS337KJVto KvrPiWjieUmRVMadIV5VK80BR 06sAUty9S5bNO0A2JhVPZoeba t sfwtoXL2TUHbBUYoqI22Xh9hs DifZf7uBQQyDUM7AKPqnCLqU2 EstB7xHsYqXDAcOESfX7NrrJG t PDbeI277SCodLgF6LKUmoeLnU 3UhFNBjlOocAfE5m6U0Kh0WT8 O1CA43PZ72eEBqr1N4dIK0J6L h KIYmcxoacortqON8QTXqELZlo X71Ge0lpYywYr8dUIKxDYK9EV IcyVHoY1HuaB9eDlNfLUXjNIE w E3DevDXeRWutL097XTevEqG8M REzpqLcI9DaPBIaaVuqUqJ7q0 N4Vb0MLVq0DH00XI23iGBxn4O 5 dAS6P4SiSCLpazpngclzeQB9B VHrYJIocV73Dt5omFvxVs3uFP VsEEF7KMHatWKuC7GhsR7nHsB j MOUwZVSrD1GgpIVlNSaxZ184K QsnSnI6JOJzcaZeD5EpIOYisV vhHjK1s1E8Mg9BRQXlAH93AEC 5 vHH0AU46HU11C4DcTspjxUUnf +PHRhYmxlIHdpZHRoPScxMD DuEsZwlOwgNF1rSt0sKGUvJII v cKvzwJFlOhRqe3jqGJCiDJxbI A8xyZmiS3CriEU1ULEws0c5Vv 18Z21jB1EijPN+YGLwoNI3nPJ 0 nC7pSwTdRaE8NKnuH308CfJmu HUjTpmgt7fcm8pahDp3NaZ7WB BzdtBynQczHHZ9w5JbDk76O01 s IHdpZHRoPSIxNSUiIHZhbGlnb k4esA2yGe1+DLYnwVR0pSF3nE 6lVmAfTeU7DExuW680QkUhcSL v Tayay3iyg3dneUp8QbDmWHPkw tBvmLjdHMT7e1XsEe18U5JybE itt2GdBrl9ff76uGJlc8S5vVE 9 L1ScJEQbrkkhjFEjvSuuEN4dK LZumkliPFJkhA9iXNOqX8s1Nn AwEpH2HDirQ7SjpiP6ACDpeXH g SZldGOI2E07xs2R3LDRoRIEcG XN2sMQ9zU3scCfpowxxrBAwsP tddkVjoMemWIjgJThfB440FBI v mRqaLAGqyE2tDLGnaWQkzIlnS R2mXMPusqlcKgUWLz5TVfxyJZ 7EPSnCZIc3G5SyBkq4TCBkvBe s EF6ygXQzIJnpPx9xoOeeuHueH Q3jFGTrpvocRMCueG9yMDZgdO BguVlqRK8rPCFyhbfuj764DjC x ANN6MTRvgCIvJ1ArrN3hPvFzX RUaWQObC7JpaBSfDQwtY348NK dhRuR9KKVmdqQoG0FpWWKptLt u IkL7t5M4Ub8bWx6xRR9aJSC3W N26VV61zINzm5G6sMN7Q4YdAH CwqlgqimmpdIF7SBUlZHEgrK6 7 lUSnWFdcPp6tz7F4i834SDIrV FDfzZ96Df6gjHzxAOVxeFWAaY 3tsnpbx6nzhtevJzTtDIMyGZy 0 NYt8JAPzuMhuGwNmCTA8DoK3Z HS2zNOlbK3biVjxroizcK2dWx c+TgAcJWGbraV9B1DuXxt9PAR z kEtaHC4jaDGwOWycSt9afTbbm PuxHM2bWBMothhePJFjjH3wTU WnrGAgvQwkMO0bRJQdrmljk77 0 SdFdFJV2VHMlkDFlY5GqdX4lA bDtRIKcJSRjM1SvzZBbRSijJ8 86PJuiFzV6CCWkszKhH9ZpHWO s bNmxVxB7n7X9Rk3OZNiuIC35A Q67qGIkv6L3hRB5A8FzOTPvpo cijdtbpGS7CBQpAFZaeO34bCD k VZpiZs6xt6F5q454UIHxZXYrf W68Sz5haGzuJGFsbPJBgS6zdb mnn7xexlpeEcOkIOIeMBi7IPs 0 GSFfiLtfPsCyRNF6AgJ1JHE8x NDbnF0rcCrenqxxmO7tRxt+T3 U4yJP3xBOxwOvkeLV+IB18gq4 8 W0CsAeqwIen6TUSjWYI3dEC8r O8tICXhGDuqo6M0zSB8V7Qhyu Zywd3ex0doKODaYSycK10anHJ w w0F8XGUwvLX2JNXhkNblIaOwu G93Oyc+MZMbfQabx6KzShvzj2 zzy8nerFm5GlGxTAFrupUivRd u SYC6r4BdPl97O24pLPppPRRgI SCpFZNoFNVjrBjdeh7zzF8sTl 8+FFAprAO1rLT6oK7zBxQhTlP 2 MCdcI422HqFquLYxXsczn0aoq 6wsiDf6MlKnIRUwseTuwOtfCY Q1n1EiJr41M9HbjJhnt8ToTct 0 mr14qEQis5U4bIY5W7KfYQDzo tvvhSScxNezEJ5fHVWcxlieFW KyxZ7rCCVtZ8j7YaSaPsC2SVv u Z0ErxcJ5QSPgvLClFGLogMQYr B3atqglz8pqugyrPcRzAQNkFX p8WYr2YSOziDioIfIeRJB7DbI 2 LWX4kMItvF8kpQiwphzfuQ9yP yc+NSc9k9nxgUTlKP2zmWC8BO 72NP28uDGkh5S1bLX1T0ScIOD p tdwvusjzpCQ1UVOqKFKflO30Y u9lpFnzRn6sGARjVRV7ZDCfrA TiD1VykM9zQcKbXOTrZCRmR8X l kJCgXDrwR650NPrcVaE7EVTaq lCnM8XbKBLvuLunOcO2o6M2Hf 2UYY41MM02DN43tHIrl9K0eZP 9 T3QvLNXqmrqthapadNY9COHyM FBmaC28Db8dzTuyXe4qNVJrYU X2LVXouBJyD0JaoL1nQvWaZQJ w WVOuR3MovXLtWLdlR927JKhdE cF2HMXbslCbS3GrNTZpnOprGp E4b2E8Hb5AVs41PX24ZG21kQI g g3S0dYG7V1DqHALnqizkskndi ZR6MITeJHYtcK53Uw8mzJemUf 4lZKZwICA7YOJjcAZgE7GsyC7 y YkVaQBTjFYDfC5CawUAyDPfiS 220URcaSaR2ZKFyxnTpD1LgRP EiuMcjTnU2x9Y2Wo2ICRkyibd 8 Z8JxWxhkyMO+XO61EJWtHL47w XJwhBNpc2syiMt1YcShXSCyUX L5jYwuVFtbt7GrANYvI83xvYG w c2U6 (more content not included)... [facility] Consent for Procedure/Surger yon 01-22-2023 Consent for Procedure/Surgery [id number]#1.00CD:12 7 [facility] Consent for Treatmenton 01-02 Consent for Treatment [id number]#1.00CD:12 7 [facility] Multi-Wound Charton 01-21-20 Multi-Wound Chart [id number]#1.00CD:1 27 [facility] Nursing Assessment - Woundon 01-21-2023 Nursing Assessment - Wound [id number]#1.00CD:1 27 [facility] Nursing Note - Woundon 01-21 Nursing Note - Wound [id number]#1.00CD:1 27 [facility] Physician Orderon 01-21-2023 Physician Order [id number]#1.00CD:1 27 [facility] Procedure - Woundon 01-21-20 Procedure - Wound [id number]#1.00CD:1 27 [facility] Progress Note - Woundon - Progress Note - Wound [id number]#1.00CD:1 27 [facility] Coding Summary.on 01-15-2023 Coding Summary. CD:[id number]:[id number] Gh0bW w+PGhlYWQ+SU1HHZWtN02qaWT ncX9KX6xJXO8DYFUVDMCFSZ9P HJ0ctHD5WMsiK5BtpwTo GeyrtJNnXL82TTr5DJM2zQeuP GwnzD1jwLHhM3i8WxRdWA22wS 33KTjrWZFmMwB0SlMlabsfoGL y C7ddGbVotGQiLtc+PHRhYmxlI HdpZHRoPScxMDAlJyBzdHlsZT 9nIt7zIUFeGLYetBpggKYmBbJ j j1plKWHcOJhgFM9hhBnaZ9Wwi JE3NYRmw4a6Lv40vLN+PHRkIH Y5pOyfOXibn333WeHpe5jbPME 3 cLQkTWhhYOW1W46tr3W0MLJwA YRjHVB2fXK8bZ9fpYlwtgfoT0 LjsTOjOaI8VKZ4cAFnmO9epXw n wgrqwH0uRna+X00QIL0VEYEOY M8QLde4U7HjHhuirPO+PC90YW JxKZ73vLIawCCot4yrnRh0RbC w YKFaOLV1gWgeTQlqm7JlKXDzP 94kpIOns8Z2YYNwnKywtIRqKj AnvKK8xQ8lGSmaxsebx9ojkee n Enrkz0smsk49cP99L61qSHzkL ETnTBV2QTOkLWXjxZpquk6djD 9wIi8+ERzdv2rwi7ocgJz6SrI w DYSubwFpeQatLRJ7d7IvPh80D 4ZwwVcav6MfIvf7ip40qAFbk9 U1cIN4LTsvUSRjhN1eONpbHpI 6 KZPoBdTxfW51fWBvLRsyUk2us NovlYalGO8lSZEbedzrZTZdjH 1jAJAftAGalIxpOW1pHQSjoxw m s333EnZkUGI9EYUloJGhX8Jfl I4tWxVrCUHxOMGuW2CnpOLzMC itV770ZWxcXtB8KFFfkoWkF0E s BSMyyAacLvQ2v4I4Je8Ih5Ayp clgAQJ0BXzgBSKoYmH8AmPsHz I4G3UwHjn0QEVreInmFY9cZ8D h ZUFhcpsgyptyiRS6FPDvQTOis H04mOJcYCymHw6ax3O0n845SG RzKNSwdP39Lz8jeOojDXYcdLP U uE6fjfnud0mktwfmZvPjXHMjQ Vt0LMs4NTTpzVqpPsYwCMT5Za L1QDU6eCZraI5bhLwfyhqahT6 w Oyc+V50ayD4iUHI9NEM2cercZ GKyzrPoGP13UQ40Q7XfAwyhiY FibGU+WBUvbpRorPotIA5pSuK j j1oxt5VqUUdrG5ZkVHMkNDfvH ke9EDJoYYK5aHV1dR4xQGClPI lsy1D9jTV2K5GmquQhkf3ps1e s MSDjKOhqW55msAPtb4F4SHHjx GX0DTPhnPnsNqTzlI01Eqs+PG WavLfqt2UnGjbvl2ezo1tsrZn 9 MrVlSJThqjHgfDnzVLW2x7LjW s21U72mSRclZFIgXDBmUAUsBU LlqKkknf0wvB2aYn3+PGNvbCB 3 sLM6pL4hHUTqUqO8QArvD475T dTzdYYzZwuso1yfu2cuyOc3Pi FuIDAremYowYcpPLA1h9NnOi4 8 I75dIRuxSZHlXTTeQQUhHCNpf Titox5ljI0gGf9+BR7qu2xckv 31pG34iRL+IZVsPPT1eHovIZj w BBXugB9zHSwjMuV1SVTiSlEin H67oKZgJQzqEz3hfZenuOkgBI 5nZRSxtbcdb343RoDas9tmXXM w jVIhASyhSRQ5Y20in1D6NJRgO SHxMLB6jMK5gX9mfObiwtgyoC SsrZhgybWloDukYMyvWZyfF62 6 IHRvcDsnPlBhdGllbnQgTmFtZ Ob0Z4NgAfl5LJTinPmpRD0whU AfUEocXz1ppRmstPzcTB8xWTQ p hpfqc566IdHqb4qzHOMoaBSiQ UezIMG4L63dk2M1GKEdXYIeFY Z0hFN2zN8woBcbhcegaSMfxZz g pfJryBqhTOeoIChmJ585HJMvk KttHbEkbjUsRBUlgAD8BH42MV 06bSNff9U2iUP3J4IkYXDjqms t dykqqQU4TMSjDPXjnC23Fv3ju FdgIj8zKUBzKRX9VGJbqTRhR6 DsbF1nKeJxTOKxPFQvY2KxyLW t WXqfT821CMhqOwP3AWEngnGgP 4IzKBTksLweQjT9b6W2Vd4XM2 N1BZ35WR70nPUlw4T6cBL2B2K h PHUtkhhqvavxoEH8DKEnBWRum G05Qp4cfBhpBx1lOGYoGPH7AF ZskFGwC8GncL5xVeMkCOUjAXR w Q3WgfTVsMCibI427RFxmBiI9E CFymeRsS7TkIBKdvHlzHxM9b8 L1Dy1KCJk8IE91NU39nAGps2H 5 fXS4O4XtHWPhcjqjdonshNV1O DZvNACmrG17Is4rxCllVq9pXB OhDAM1JPSysUPxT4EvrU4cNaB j JNEdOHXoI8XmqCHuUTqzI657L FdyBeT6BPAyvlIzP4GeLJXngX dtJmW2v6Q9Dl2LDQImYD49XJJ 5 gDF4MS78LI13D7XlPvjjcSGcu +PHRhYmxlIHdpZHRoPScxMD BqYrYumHzbNO8qLi2dVECaKRA v qRqwjBEnNfGlp2oxZOPwVMznQ P1maBfzQ7UtwCM1JGRtv4v6Nc 32I90qM2IdpSG+GYHnqNX4fEY 0 bO0pMgPbFfJ2IIqjJ761SkVsk ZMfWbdok9mwv7gxdXh0UqQ5MT PombWptEpzFHN6n4OdOt66I56 s IHdpZHRoPSIxNSUiIHZhbGlnb x5slF2lLy9+FYIofFP9oZQ0hL 6iIvZaOoU5TKlsT906IuMaoIP v Fyzsb5mrz5wniEi7UtPrKLZvo oTqbNlfJRT0x1RcJb05V8HncM afv0RtVgw2ud24yKXke3X2rUW 9 Y8JaNNGblvxvmRLasMcfOR3xQ MXtyyokSFUmiA9kXLGyE1z7Sa MqYoH9OCzwD3HqzuN7PVOycGA g DAhnRFZ5N20pg9M4PUKrGQXcX FT2hEE1wT5niQzjfsewpPYkrA kdlhSmlKpzAZznRFwvN691ARL v bUvoGVUgmF9yODUpbPFafGkbM O7eYULxohllJlOVUi6KKwolHF 0KLGwEINy6F9JaKhr5POSnrUg s DU8nfMVqGDgxCr0leWqmqXnmL A1uIVIbmxdyGBYfrM4cQGEeiE LazMahSB8oSPBsabhtj691RgY x GBI0LJJvbXPcP1ZkdI8bTjPzU JHpMANwL1AjxLQrVXjuG642GV egMpS6EEBkbbYiY9PpVDTwjAo u BuL7e4Q4Ja8uLf3oRD0mVDI4K P15CE97mCNvw8C5mEO7M8AbTZ YnrnccfwwdxYM7SCVeGAHgoQ9 7 vFVpYTjvJw6vu8K7y241HORpA CIviN97Am6wwJxoEJBgvDCRuW 2foqnwx5smtmnuDmQxIABcQUt 0 XDk9OVRvxYmbLtTfUCD8IeH5N OK5zTNdwZ6deBsrzzmfyJ7qFs c+MtGtIKNyfvC9C9XjLdg5BFG z wJhmHC8icVQrQZxnGx3ltQjgq WutYH0dPZDuienqUZJfeA4wGT OftIVeuRikJM5fSEIvzvgaw12 0 LqPlTNO7IDAbfGLgQ0LruP5uK xKdXNTnXEYkA7PffZHuAHjdJ5 79ASrrVuU4DXJpyiHlO4DcRGD s cRvmWwA1u9N5Ek1GSOrtDV87J D14tOMbi7R1dMF2O5DcGVXfgp wpcqsioCC0KRGyPVDpcZ42yII k UUaiJx5sr6M6v632TSAeXIRay P63Vz1gqTkgIIRdmYMPsH2qev osl2lmaeyqZjZoADQzYPa2ANx 0 YMAgkGwfRyEkFKJ1QlF2ACD2b IBtpG8erBphjcoxfF7pXuo+T3 P4sGD0kMWwrAzaaLE+SA99dr8 8 Y2LkUcxuRwr8GTFvPEP9wGE9v J2tYLRyEKbgf3G2cVK5B2Iwyp Qnzn8jc8tvXJDnPUthT51buRD w c1Z4CEBgzFL6TJZfdPyaOzBnr G93Oyc+XSRmaEuqk0GnRjjma0 hup2olmZv2PwRlHIHdkmOdnCr u QQT0t3BzNc97L55nEJuyOIQxW QRtIAXeHJEnhBzugl3riW3gDr 8+NRSwmRT0qVG1eO3pKgSuHbE 2 HHvbR062WsEimVRfXyfta0yjv 9acrOa4NrAyARYvqkSfvXoyMP R5b5EmSk09R3WmfVehy0FfShi 0 je96hVVsm7T0ePI5G6FzSETbs fwrdKBxqNmjUN8yDUFcdsspSN SyuS2kEPKiD4q4DuTdDrU0PUo u E9GzxxW2QJRxtWVgGAMkiDOTq C0cyzurs0acplrfQeQeTFVwFU k9SOt7YMZgfQkjMmTnVBY8SaY 2 SST0cTVfpO0bgLazmtqwqO2fP yc+QAd4u9hriEVnEN1wvLO3TC 83JZ67iTIqn5R8mTN8B4AxVBX p gxsqtmzxbRK8HPUtYOAzaO41F b7wbDjuJy2wMSRrJJA8EOZvuJ ZbS1LpvE4yPrNaGQVmTKNjV4W l jCFsCCteK478SNajJhL3RYOmo tIqV7JgGQUvhBuyMfM4m5Y0Ir 0GHL74XT13WX78oAEuu3L0sWE 9 R9VvDLArgnnnplklgLQ4FIChQ ZBqcD68Al7mcPhbSi9hLRNlNN P4CRMxxKVoZ7OpeB3tCfMnORT w KXZvA7LhnYQaNVwqP400LJddM mA8PNKrioXjD5IxZAPdhEoaUn Q0u4O3Oc4JXo98UU95IW67uGD g c2X7tQA8M0DjMIDimfbdrjkcb BJ4CSVyETSewU64Co0wpQvyQd 3rGSMqOCM7AMOtjNYtQ3PlrS7 y DeUtXYTbTYEkZ0FztWXgTMmjI 043JZycVhQ6WFVkacLuB2HvIC EibEbwTmN7w2I5Qu6SIYsbkpu 8 Y6XhPddtlXO+QC04NNAhXP46u WHkdWHgl1vzuNo1FgHsAQBxZR U1lRauUJtdq4KoNTOgM60uaVA w c2U6 (more content not included)... [facility] Physician Orderon 01-15-2023 Physician Order [id number]#1.00CD:12 7 [facility] Coding Summary.on 01-14-2023 Coding Summary. CD:[id number]:[id number] Gh0bW w+PGhlYWQ+YM3CGEPzY36udZJ tbD2DB0rFRP1YBLXKTHNKAA3L BA4ydAU6UKmgP8DahiWu UxjbvNHnSQ70NOz4GWJ3zHddP MhraZ4dlHWjH0u7MjRdSI48oG 96IUohVOXdCrG9EuPamihenWU y M4ueXgJdnCWsMtd+PHRhYmxlI HdpZHRoPScxMDAlJyBzdHlsZT 0uQh0lGFPdARWnwKnwiDPfRmL j b9swLHPbPRcjMU4phUfkE3Nbs UA0QJTbj1o6Zd97tCH+PHRkIH Z4vNhvTTmit786LyAvy8ofCGU 3 fWNyTPjxKFG6W23sb3S9FAVgA YOqFSY1cTB8sP6okMuxhtwzH8 NltSDwByQ7GEO1sHMrrH5qjPo n cdzjkA3yGin+A99ZSE9EWVNJE N5COff9F1DjMdbfeRW+PC90YW WeKU11eIKpmOHff5bxhWr8ZjF w WLIgABI2pUnaFNsoo5OdYGJuB 26nhVCux3X5EPOrfJmvuTFrAs HlsLK9oA0nABenzzavy7vfmht n Fodvm7puhc80pM07E28kKTkgJ GEqYWX8VIJiYNAbnZxptt0kcL 9wIi8+BQuyj2geu3xmaDr4PnC w ZQFiwbFkeMmzWNC4e3GkUk01B 4NvnPtpe0BgJni9no03sHZqf4 K7hYO7LIgzMRQujY1kEIrjIdU 6 GXYvKeSiyH09mACaSSnuRk9wd YfmqWgbSM1kAPFnxyyeYIVveF 8iWKOiwEAqvOiyJC6aXTGwlin m n976BiIjQHJ4OKYkbLGqD0Zqa O3eHfZdIFAtFZHkY2UdgFFjBK kaB230EFixYwW3WKYtnaGoL1B s ZTPexNlkDrK9g2K0Vq6Sk6Lqn etbTMF3CFywHNYtFrM7TnUnKj R6X2MxOif7CGCdgHqrTI6iO7H h VSIgzfgstvpjsDZ6ZLKsPDVjp P07lRNwMYaiBz4nq9B8a956WE KvNXBbdZ10Rh6lnHieXPVnbIZ U zM5gqfgow7cujxylVpMaPDYuA Qe8FOm4BLKssZojQyRkMVB5Tu K0LQE4cVAhrD3wkPaepwypiY3 w Oyc+W77dnB2eMPJ4GTV6dbclC VPmdgWaVF31OK89W3DkFzxwcL FibGU+OHWucvGfiYzySW9jGfD j o9jev7HlNJkkZ5QsCQOfJBnrZ mi6CKDoLVE4jBQ4mV9rPFSoPX hfz3O1sBA6M6RmdfCtip9bd3o s FGVjMDyyG09ysAUaj4T9XRVgz IK8KOEqbBrkKfKksI99Gvr+PG OhlKgya2JeFgkzj5wtl9dyqWi 9 JoKvTOHiodXfhJmtOWQ7t1JsS y39I15pFUddIITpEABvWISyLP FujHjaqr5siH4yKn1+PGNvbCB 3 xOM7sH5cEFMlTzH3YZvjV837T yTssEFaYegik1zws7uhtFq4Hd StVEMlkhHwqNspBQF7h6KxFp5 8 W04hXOmuHVTvCXZwFHYyVZDco Whpeo0vbS0jAi3+JP3lo5suai 10iV50fZK+KVRkYOU7jSabLAq w GHTqpA1aTQoyMhT7UXWpSqKsq Y03bAVcBDhjKf7oaYzyxPlxWX 5cMXTyzmmjy437HrSej0dsXGP w yWBwABcqQDR2W14gl9Y7HIYvL ENjDAP3mAE8iM7zaNbfcubndG FheJojzlZzsNchLZpsQEmvC77 6 IHRvcDsnPlBhdGllbnQgTmFtZ Jv4R3WkJqg1ZEDafWqnAF8jpA VtCLiqTc1viZoyqCmkOA0tKGZ p ehfin498OyTol0scFMKdqWQoK EkpKYA6T35oo6Z7YKLsVNTjYU S1wOR8wK4zgMxpalrmqPDwkBg g zsUhbGnhHYiiCXbvC314JRLbt KepTvSefeGvKSKvqKD8YH27SI 12bARmx1X4pMU6Y5PcQMFkbua t yefipIT7GSCgHGPyoO27Gx3pf MwjYf4uWIHuOFK6TRDkkPKaD3 NnwV4eFfNzBTKdXNWtH0DssXA t UUprJ114XRwaQwW5KAXbaoBoX 4QoPNMmwTtyFsC3b0C0Ov9DM9 K6JY56OW06bSDtg1Y8oTH2Z4Z h XMUlfmobfujmyLD9VVWuPVLlp K45Du8xsEfvQe4kTOWvIZE9TH JzkYMyG6DyjM2wPuXeCJKrKYK w Y1IbbRGsOVlaQ879BVoeBkY0E GEmenNsK8ZlNWLdbXcoKgI7a3 U0Hi6PWJg1FY99VV47kSTlc7K 5 cSE2P9ZpKHFuvqlkltckhZQ5E GAePMIvbO99Ie1mvDzbPb4xTK YeQOF1ODUbcJZyS0EqjR6xCuD j PPFnMPRrG1TsdQAfDAwlO308X QowBtH9RUOtyoDjJ0KvWCDrsG zpPyO0f9A0Wh2YAHFhAQ84PLP 5 rSR2VS02EW97D1CrOaipdJZzm +PHRhYmxlIHdpZHRoPScxMD CwApMmyXncOD2uYj0jEWWdCJP v pTemfEFuFdNtk3unGMQcYCzoS P2njGglR7MruDZ4CIVpc6q0Um 63W42wY5YoxMG+YAXemEY2vKI 0 tR5wBhKpGrL4CYciV803WzPfq OZaXjxli7pdh5ipqGf0OcA0OQ TptnNgzThxOBH2i6VgPs09H17 s IHdpZHRoPSIxNSUiIHZhbGlnb d8gnF8lEy5+YGLofME0yLE5lR 7wYcUpCaD4LFwjC057SfHidOX v Mggqx6pgr8tzzGd7KzNtCAHcb fHnpHinUMY8w9UnMh76Y5BgkH zln2YlNtw2ys49lQHxg0J6xUS 9 O6HmKYVuabqozRVvlTsdAU7iR QIoziyfZZWrrV2rHKNfA7g8Xh BaKjX6CEjxC4VatwG7GRJsrGW g MPgiWTN3L15pn4N1FKIcSXSiI ZZ4xQF5aQ9imBnorxdyzIZcvU iuqfYupBxbCMezXHibO498MLD v cVfaLCVvgN8xJGXsjRIxwDarD C6qDCWivarsEoJYVe6JRpnqLW 4XLZzGBBl3L7QuLgz8MMOqsXr s MS6wvFWhZZseJc1rtOjkpWjzC G5qECEgslgmBUJlfT2fYXSdzL XawOtzUE6qIKMtnkotm508QeE x GAD1BDYuiLYyP4DjtD2fAsRaC RCrRGYeL7CdjJDvETgeP985AT vbLdL2NXEzldMeY5PaYMMatNy u KeC4m8V9Gs3dQv3qCY5yGTY7W S31BN27oPXdr0X0dAL1G1FeXB BixytagnqydBS4IKWlWBGulN2 7 hLPxLDljHc4xr2E5i657LVLhX HDmsA01Un8liPqwHWZjaBXYeD 3onryna7igcpndFzAdFEWvKEw 0 HXr2FMOunWitSmRiKOU0OkU7K PM1dLDycL3scZrxrinvgW4aOf c+KpIiVMVkalY7W0ZoBzo4DJF z lUniQV8xeDKlKCdtWy5mbPhmn JsvLA2kNRNwuvzgMOOsnY0kWD LdkINwkTrhPY4iAEUgrrmum24 0 XnNjKCW9NWIfhZTgE6EkrS0wW kTtTVFxJPHcD9SpuBPpTRrhZ9 07ZSofXnZ0TYVhhxDaA3TjSMT s qIqsDbQ3z5X4Jl1ORFwjVW74T E13xZLjx8O6vBT3K7BeCROyiu zmdbtxlOW9FYIsZGKgrD02xUW k ACmcXe5sh7J1i862RSUbWHHrb B79Mr9kkQyePTYtdNBNuC4nbe lrz7seoarlAmTaRBPjVQr4YCy 0 WCCaiOsvQuUzMXL1XqT4HGG7c MJtgL1fdAmlmthkpE9dPgu+T3 P9dKV4jVWhyVymjBC+WN76kr6 8 S7LaLynyLnn7GZPwRRF7rDZ7v S5rJXWpHCypy2F1vRY7D8Nsvf Rlrt2fb2joVMGbTJbsJ51ygZP w z7E8ZFFlyEA2KDMpuCzfPhCqc G93Oyc+ZSEnzTuif4KjPqkoo7 zie7ztlGz5KqGlHUMhdvCmjZs u PVC1n3MqEv46A89uCGmaQJBmV OPcFACpERPstLpmjh8gtO9sEy 8+HDPzkJB9sBF7mX1hOkEhMmA 2 PEwfC899NqUxeKCkVjzjs5jbp 7zkxTh7FwVsYUTjjvOcrYaiBO T0m3RfAa36Y2HcgDyzc9NpMwu 0 ms49yCPxd0V4gNZ2J8DfGJHmz hbjvWQoqOqwVX4sCUOgqipsYW WtvD3uEEWaT1n2FnJdMrO0TGe u V2WlepD1BPXfjVMzSMYyoNSUd G0zkvbbg0tfwagyOlIbVEYeKT m6TYa2CEWiyRgnSgPcAKM7RqI 2 WXH3qQIigN5loSvuywkeiX9mG yc+VSz9p0kdyEUsAP7zkIB4WG 63TJ48hZDby5V5mTR7M3BfLZR p tqzdulxlmGI6WXWbRQMdrG40O p9olUwhLa9cNCXkNPG8UDQiaS RrB3IisC5mJiNqJUAxFFUmI2U l yUAtMQanD521SIotCdN1VGXvl sVqH2LpCVZzfVujAiW9z5T0Yo 0GSD68OI49SS77fTCmc5T7yRX 9 Y3ByRPOdvqnqsskerFJ8VWKxY MVuqD74Ml2usDswTo6pQXHdBD V0RIJxeJTbI6QugV6sIwCzTEP w XVMeM6BbnSEaXAlmK833OWbnJ qL2VUDjlqLdV2WhRHJifZdkXn O6h1N7Ky8HZz31FJ97VR41lKC g m2G9aGI2C7QeCLPwduqljhlpu SY2ICKvMEGgkF33Qn3gpQdwXk 3uFJEhTAY6JULqvKKgU5HhnV5 y SbNrVBIgDBQfY8FwrPHnOUnjA 646DWhwSvV2LCYqpoFaB2YlHW ErxCzkJlC7j7J0Eq1WTWtxxdq 8 H5SqNnyhhHQ+HF16OHZlGC48w SCafSLmq8etvBe9EiVqPRUlDO D2yTcgWZvgb2LeUFHfL65olNY w c2U6 (more content not included)... [facility] Consent for Treatmenton 01-01 Consent for Treatment [id number]#1.00CD:12 7 [facility] Multi-Wound Charton 01-14-20 Multi-Wound Chart [id number]#1.00CD:1 27 [facility] Nursing Assessment - Woundon 01-14-2023 Nursing Assessment - Wound [id number]#1.00CD:1 27 [facility] Nursing Note - Woundon 01-14 Nursing Note - Wound [id number]#1.00CD:1 27 [facility] Physician Orderon 01-14-2023 Physician Order [id number]#1.00CD:1 27 [facility] Procedure - Woundon 01-14-20 Procedure - Wound [id number]#1.00CD:1 27 [facility] Progress Note - Woundon 01-01 Progress Note - Wound [id number]#1.00CD:1 27 [facility] Nursing Assessment - Woundon 01-09-2023 Nursing Assessment - Wound [id number]#1.00CD:1 27 [facility] Nursing Note - Woundon 01-09 Nursing Note - Wound [id number]#1.00CD:1 27 [facility] Consent for Procedure/Surger yon 01-08-2023 Consent for Procedure/Surgery [id number]#1.00CD:127 [facility] Consent for Treatmenton Consent for Treatment [id number]#1.00CD:12 7 [facility] Multi-Wound Charton 01-07-20 Multi-Wound Chart [id number]#1.00CD:1 27 [facility] Physician Orderon 01-07-2023 Physician Order [id number]#1.00CD:1 27 [facility] Physician Order [id number]#1.00CD:1 27 [facility] Procedure - Woundon 01-07-20 Procedure - Wound [id number]#1.00CD:1 27 [facility] Procedure - Wound [id number]#1.00CD:1 27 [facility] Progress Note - Woundon Progress Note - Wound [id number]#2.00CD:1 27 [facility] Coding Summary.on 01-01-2023 Coding Summary. CD:[id number]:[id number] Gh0bW w+PGhlYWQ+SP6PNEZfZ59bfFQ wzG4BO7gAOB3DSIDUTDOSPT7Q JY7ycAB8UYriH4ZnulQg HqvolZNyRM31BJp1BFU8gJpuA TdqkQ7glIGzU8n2XcObPX81xF 68ZLcmZOMsFsG5YrDfdqyklPM y C3itBdFwyQOyMbn+PHRhYmxlI HdpZHRoPScxMDAlJyBzdHlsZT 2eXi9tLWYkHDVdvPeamTJtYyX j q0lkELQtUOspTB2lkGgpD5Ypn VH9BGVdi5j1Aq14iFF+PHRkIH I6zVfbUAvxd056XwVmt2nuBNK 3 zBUvERapVUD8H39go2D7IECcS TVmHTZ4tJV8dF7mrPwsqgpyV2 CnnOBpKrF5ZSV2iRJruO8eoPy n jmtbrN0tAqm+Q93FRH4EDZLBD B2LJoa8B6PrYumltFL+PC90YW JoTY75tOFxgEXzv9shzEv9DlW w RMRkPMO0dEkrJBfvm1DqQKHhL 20hqVHyt9H6VHJbnUwxsIFoGh FwpRC1nQ6vMItbgypnw8lqhzj n Lcwxq8cjvi93bE88C46rRCcuD UTnRJB1FOIjOBJoyYobzc4krK 9wIi8+BXlsq8qmj1gjmXh5LzD w YLRuqoLvoOrtUTN7v3DhXv99R 0UgeHbtk5MvFna8bx58vUFdn0 K7fHG9QGugAOKqmS7hETqqHrU 6 LAHiWlFhkQ82hOZoHEjiIo3zy YhajFylGD1iXQUtcuybTGVyqK 2vORIhwVHasPxdYE2iQSEeote m z581ZdUxWNJ5ASMoyAXkI9Qca F4fUsJcGJKsSRQtV9FwvXMoDL puL911JYrqBeV5BIMgncKoJ6F s BALrhCprCoG1e4B4Dk2Zx8Wxp ducSWF1DFbvFYXeXuIuGoLcSv W4U7JeCcn1NKIqtAfoNN9nE0P h HXIsanzcuftlpSI9WGJgSXRms F71zDNrIXppIz4tw1V1w575HB XcENTzkK51Lb3akDnuTHFqwQK U pB8qcihib3hyhapvOhUjBEArM Uu1VKw5BRGerJssKeJrFUU3Rq Y6JMR7oKTtmE3utLamgsuvtJ1 w Oyc+G80jwC3yFQH6CGW3wtdwG FOmvbXvHI30KY03H7HtLqqrlQ FibGU+ULIvtxYqhDkkEC7kWxL j z9ipe1AzESncS9LkGTZoSZfdU ts2IHIiLUK8wRJ5gQ9lIEAkIF rdg9M7jNB8X6DyxyXfll4pd1p s HEDnNJdmI38yaNZgj4U3ORThl GK0OCFofAcdBgPceH15Dkl+PG MthZzdq9XrAcfss7rne4visMs 9 LdVqPXMpjdXooGpzOCA2e3JaK k66Q70iKYzhQZTdDHLzQPBsBB SvhYbpuc4jiS0sVm0+PGNvbCB 3 tTO5aI4kPFMsWgP9PHqgD090Y xKosAPdOwsmf2yuw0ahdFq1Qq EkOIEljqPigGxaSIU4u5RdWb9 8 Y60aNTrwZECdVPLhUQIbCFFkh Mhkmr3ryJ0rGl8+EO2jy4vvjf 44sA61fNM+RTDsSLU8kMusJLw w ZDMayQ9aCOweDlJ1AGBfJaKbq D01pOIsJNpxAf5kfOmlcXdwEP 2tDCGnmdjhf982FnExr5wrRER w zGNyHGlyALX1O96ms7F3DHYmZ XVfIEA5gUW7aF3thTbxzbljdO GzaIvtphXxvFpkIJhlKBggZ60 6 IHRvcDsnPlBhdGllbnQgTmFtZ Uw2S8XvCam2DGTcdEljAR2kqO IbUExeTd2hvNoesNqyKV8sOMC p ggeca404ZhCfn6keZXAkoJAxR CysZCS1T55ob2K3HJQsLLZdYT S6jXJ9qH4zeRuhkzvltNFfgKa g qzXwlSoyQFvoSCykQ963OKEyx RgzTmVrquDwYXNrjWU6ZY47UO 60zVWno0P5lFS4Y2CsYICsobc t swiyjWB4WSSxMIHjqC78Pr7qb EwlSg3aZCLoBLL7URSjiDUdS5 UkjB5wIdKbWQThHKAmI4BdeGZ t EBmyY847GOnyJqM3XXAmsmSdR 8UsGTEeuGfjLmZ6d8E8Af1SF0 V0OA55FP92wJFnh6S8xHE9Q2O h YETzcqhxrkgghZX7TEDoAWKzn L48Aa8mwIgyLo6tMNFkUIS4KP UcpTKbE1IeyM1kNiOcDKSeVKT w X5NybKQgAYerB716SPvsQkV7L VEcgtHmB2WhIYPfyAyqOfK3f9 Z5Ay0OPBt1KN58GJ23lPIpl6W 5 aJF6W2GrXDAvmjwusomvmYR4Y PRxHQJgaI77Zb1ehRajDh6xBJ GfPNO8HNExdPHpF9IgmQ4yIxV j BPSdMFNeL6QwvLIiSJlhV815U OgyWsY7OPRvibRsT8JuOSBzlJ ggGrU2n2N6Gf4VSPNsSJ20ZNY 5 eZB9HL72SU50V6XmMawecTEjb +PHRhYmxlIHdpZHRoPScxMD PfNbPilEejVS7lGy2wUJVbVPX v sCnebCWlQwAnl7noEUFbQUajO Z1laNmmY5HgiCF0CPFdt2o9Sj 40I05tZ8ZfeRC+RODuaWJ4iPR 0 cS8xNkFcZqU2GLpiY805KwSsl NEcAnchb2sgg0ujvIu4EyE7DL XsqzHfzUimVVE6p4TdYn00U16 s IHdpZHRoPSIxNSUiIHZhbGlnb g1akI1hPw3+UHYquXG7rZY0gT 6uDcOdEuI5WSppJ671CmTiwCS v Mjpmq0gmp9xxvDv9GtPiUVUeq dEmsUmvLHR7f8JtNp14O1IexM wxw1EeYwq8gw11hBEig8K0uTG 9 P9AxIUJyypaisFTcgKsbBR0dC OOnypecGKWxlD8fLWZxH9e8Lt MpXhZ6PNvkY1QjfiX3HXWyzMV g VUcvTKS3M46cz3U5IPAwPUAbY IK7rKO7xP1waNtfxrruzPZmhX axjrPxfSujBKzuEYiiV915XQG v iPiiGILbvT3xNSRqaQZtcWdkQ F7iFHUdxtlfEhEQBg3VDazjRM 0XLKhFMBy9O8LhSqy8JFRelRj s FD8ftGZeOVshZh2tkGxwgJwjM O5xDAMojibtFOBdvY5bOACtnB GpkUbdKT7gBXEnqxkeb455CrZ x MGR2XQJtoPYhY5HgrK7kIpAgH AAlAXLpX3SfkOAaHNpaJ853MJ pcQiV3GNAokyJpP6FpPOZysXy u SyE8f7Q4Pj3wZe6lVH8sQOD5R S61JP21xGTmz3P7iOB7X8QzBR UbilafgrtbfHR7CGCuZUOofL8 7 lQAmNZsgFb4kw5Q7x077SQLuC FMxjJ30Is4qrQgjGVOvaHDFfQ 0sujcrh0nobmfcPjFhZXDwFDl 0 JBn6YXIbzJwcFqQtZUK1YlU3I KJ6bCByhR8fcLmoakrplF6nAp c+CvFlYNTmtuE6D0MhZbo4AVZ z kXfjLU5aeCQgNYcgHv9ttWksc IejOO9hLYWpinxrYWFjpB2xTX TcpIAzhKxfVF3mJTCzytbtp12 0 VcSjKMW9WNYtdCHeX0SdzF6kP pXaMBMqYTHdC9YgbYXdPTapP1 42JLrcUnJ1MEBnajMaA0BdSBD s sYpcChL7p1L5Qm4APSzsIK92B V18uOGnl9R0lCG7T9IuEKWukl opwfbeoVT6RYPfZOJzpM41pQZ k JEkcHr1jl5W6v307WNQuEYZoo E72Bz2ogXcqYNGiqNWBxF9yty lwq0dvylijZaRyADYsTAi2UMf 0 JZGkrDvyLrMqJIR7RxT8CCX2c FEtfI9sbDkuarphtK5mCpj+T3 V2lUJ7fVHsmQdvfLF+DA61tq2 8 S2PhTckgZbg3HJWyYUO6vXY0y B2mTIPtAUcce5M4rGM8T4Qesg Nfbm9yi3iuBDEeUXdoG19bgZV w w3N2ZDOoyIX4ENYwuCglIzLwp G93Oyc+PLXtoJezt1BqLkruq2 tzw2fduPk1EqBgOIBlwgEzaZn u KKF6u2BaKt52K04jUEbqRYKrL EHsXKVuJSDxsCetlb4hoF7uEr 8+KTYhoRF4aBO7lC7oLmRpMrA 2 WBuhY475HmFfjXVfYzsxy0qnj 5wnxKv2EeKfCBXfppOscXzuZH N9r3KlIj75F2GfdXzfn2FcOwe 0 yy00gVPim5U5sNR1O7DpKAIgu goopOXfsPvsZN0uHMZhwucoLI FlkS6pHPElP6g7DrBwEdQ7DTh u B6WclsA0YYIerBCsBNNwaOIKd R8iiyqfc6feqffhPoFmTCJaMR q9ZKm4AAWkgTqxLdQlKBE4GyF 2 CFM5lLEubG9zzJrkkjfocS9wE yc+LQj0f5ljtTVoXX4rhAS0QV 06FJ86oRZyq6A4oRH9P6VuVGU p ksubpvnuzLU9WNSzYJUvbH81S i2obXicJj5fFNQlAUP6NSWihT StO0UriO2sFvYuXNRlDEHzT9F l oKJlIDkuP642PUsoClQ9NPOos uHcZ4ScZJJtmZneIsZ4v8C9Sw 9LPT90MU79NT80xSFbb6O2tRS 9 J0MePFBijhqhvanzuSR7SXThN YTrzT19Jg3khDfcGk4qMQBkQG W0LYBjnXGxI8FgxF4vBgVsVZL w LGRlU1MmmGJbDYeoZ197FKxsG zG7SMJekvLpX7VgWDRavNutHj E1o3K2Vx9NAh75RT02PH51yDC g i7W7cBI2H0VoCHCzqqbpsaysh AM9OAHpBWJnnP55Uk1pfCgzLe 3iNRXmDDA2YBSofCDpE5EkhN2 y KwNtQZBaRRWiX3MmjWSrLXqpY 240CRkvWuB5GUUjqrZhL9UwVP XphBunXxN1g7T6Nc2UTKokfod 8 I9KcLevwtVM+XY38STUuHP51r UPckBDdt3vtjGn1CaRiUQIoGC W6oUcsBQbbq0FlNOJiU10poHY w c2U6 (more content not included)... Normal [facility] Consent for Treatmenton 12-03 Consent for Treatment [id number]#1.00CD:12 7 Normal [facility] Multi-Wound Charton 01-31-20 23 Multi-Wound Chart [id number]#1.00CD:1 27 Normal [facility] Nursing Note - Woundon 12-31 Nursing Note - Wound [id number]#1.00CD:1 27 Normal [facility] Coding Summary.on 12-30-2022 Coding Summary. CD:[id number]:[id number] Gh0bW w+PGhlYWQ+DX2QDGWtD77emAP kpP8GD6bVZH5PHAJPXLDVWH7J BY6zwZK6YSzrO3JecmAu XwcigSNgDD37PFx2UDX6zFlyN RsveS2zcSTlO7v8DwDtLQ56tO 81FTctKMFyHxH8FoUzowlqcLW y T0orQmZzuSSeDam+PHRhYmxlI HdpZHRoPScxMDAlJyBzdHlsZT 9aVc6vZLRnPZOzhVnokJPoTuI j h6usDKUwAYzzYQ8vdJqvF2Dns VI0GEYdy5e7Sq18bTV+PHRkIH N7mGfkBMeyb268NpXnz0naOAL 3 sOEjWQtgKDG1F21dy9Y4QABlD CNpEIO9nVQ3hW3bsCzsjwvuV8 EnuAErHrT0NTE0dKZhmH7uiCh n slgvqH9zRgs+J34BCP3DFTOTW X9GCkt2X5SaZoxieGC+PC90YW HvCC20yLWmeVCzx5oywYf9QyH w EFCtKHZ1dXfwBTyio8YfDUEmK 90jmSUyt9Y7ETLarUbnmBFoFe VeqHU6jF1kVOjjjldcw0mjdac n Kjtza9eeqv49vJ68Q48xYCwbH VZiBXT6UTPaEZVsbFlrat7imE 9wIi8+GVxhy2rwa0dkaDw8ZlO w CLAdbiBxcJjdEQD9c3ZhIj51T 7EqiJwin8CoCbk4gk27nAFup8 B0nAS4WUruQSHzjE2mZEmzObR 6 GNHbXpNlxP58vXDrUOjlRs0gy EgihMeaTB2oNJPvitntROIpiV 6pHROrpELrgZrpLX4kKXYopdf m i613OzXrBXH9LQKhxVXrK9Tyn P7qOrIeWLXvRQDeS4SzqUPoDG ukB939NTqyOtQ3OIJwamDhR7A s OJYshQnsQtQ0e3D0Yr7Hh2Dit fqjUYB6RJjkUZXqQeFaVwLaQp S8F2ZjKbu6RSPgpPntBR9bF6Y h JQAfvbgvvsjnnTS3WBJoRLWtj Q60aCQwWUrvSc0hf4W8k686SH LnQLQrzZ66Qs7zlWsvDDYxlSK U eZ1gbcegb9ejvjgpGiAhAEWpE Wc7FJv6BOCwlMroYyRiITT3Nd V0XWW4xZJseR3yjMvppgqjjO5 w Oyc+N48wzK5mPSO3NLA4mvamC MOzeyUxBV56GW44N9CsIjeonR FibGU+HVGokoEwpSjhXU3rEmI j w9uru1MyEMdxI3DlHNEaSJtiW fz5GTWnSNB2mMG6mW9fJPHyIE aoy1G6mQR0L3TrajCxon0ju8c s ILBeRUypP66eaNGro6T0GHPxx RE0SPQkdRqxOdCaaT20Mtj+PG PuhEuhw9BzPgvmq9ywh6vuxHy 9 IjTfGMGlfxItmDguWJP8q4FjM m56V04oKMndNPXtCQClXNScUF SdlCmnnr3wcA5mBk2+PGNvbCB 3 jQM2xE9cCIPtZqQ6IDthW609O iFulSAcKlqzv3gxf7ulyDi8Br SdNURrbkEsdSzmEPB0t3CtGy6 8 V63lHEthFIOlYPNpWIMjTTVeo Ftfwi9viL0oQv8+JO8ou6ghfi 71jY07fCN+MMLnPPL7fNewJMg w SCBmnR5vYQwpQaQ9OUIlQwDcb P84cSAiVZfrSr8uxMhtsEwuAC 4lQIZmaehtz726KjXiv6zuZZZ w mQKlUBgtPFL5W15iy4T1YJTsA VVvNMQ0cIP1rR1pcKnzbwzttL UwlGdiasFkyPnbHBqbBNduG38 6 IHRvcDsnPlBhdGllbnQgTmFtZ Qg3E6BgZqd4YLGdwSdhLA5ynR OmKLhpUz3eyBmyuEntHP6fGQD p nefll172HfZct5seIINqbTWvE FqvDVV8D37em7R7TCPqUOOtOO N2sUC1nR8rsWbcciqeqAHhiZs g ckEhdJmjXBmiLUeeY671GSSpx JyyRgKzniXoDEIofVY5OP58QR 27rUTuz2V2cSW3M8JwCTXygzp t xiletVL0TNWcFLOahC14Bb3ks DrwVs4aWFYkGVK1ONOjwMQjC3 GwrQ5rHjMzLJQgBKYbZ3YhnZP t RGcqP905SIqkEgJ7JFMtgcHoG 7OoWLTipVjhFoW9h0V9Ei1CZ0 S6MA86ZL25qWQtk4Z0qUW3I1E h HZGwmsxgwysgaIT1BQQmUCSxu L39Tg5qgBlkWj4kQLSgYBF1CW ClzWOdH4QaeA4vWqNvGDTiMLL w Z1NpnERmJZdeD799DMwhAcI2A YRthcKiX0MtIHGxwCdbTuF1g3 R6Rl6LMCt7AG25IA60hRYet8U 5 dCD2W5LqULLmfzogugpvoSD3L SBjGARewZ40Lp6qpZviXn3sYE JbUZD8MXSczXYjX0ZjlW6gEhX j XLOyZCGoY3HlyHLtOGuqV540F OabAsN3LMFpruYdQ5GrLRNsiV ujApP8i1N4Zx5KMZNgUO74COG 5 tCZ3HA08HR54E2IiMecjrNIii +PHRhYmxlIHdpZHRoPScxMD KpGfKrhTojIK2eJt5gRFVaUBY v qNkrsBPtFqVpd1svDAHiDCsnD P9mgLjbN3ZkfIF9NQObu3g0Rc 51T48iE7IamKI+GHZsfEK7rJM 0 hD1aUhKdImL6OKojQ927NdUrc JMlJchwz3ujh2mjjQv1TvR6UJ CtdcBwdYyyWUW7u1EtPc20V11 s IHdpZHRoPSIxNSUiIHZhbGlnb g0vjU2gIl0+VLUryPC3zZG7pJ 6aXzKsOsJ0MWpwL260AmGxwJO v Iujfh2rao1epnKy6MfGqBRFkd hVnmTkiZSI5m2OkCy47R3AbhQ csz4WzVkk6hf67kPKmv8Z8yYA 9 A6TxXEStcadoaIAnyYugAT5yR ZGtqoqdOZLchN7jKKXgX4s8Zj RbMfE8CUxhL5GiunQ7QXYocCI g EMljHRI1B02wt3G7JDEvOOYbL OT8aSD4hZ8nmAygrfeknLQqnO zlkaNplZayYYxyNLtiP517AOO v xAnmULZoyS5lZWSnhUXumHipZ J5xBNHfsfiuBlMBXc1KAexoWY 5GUNoUHFe8I4YsNak3GXLrdHk s JY5frCIrFQqoLz5opGvfnWodE C8hNTOohehbZUXfwM8sGVLbvN XgaUtdNC0eHUEmtwoxm975LbB x LSO3MOOykEQsC0KbtH6mHrYvK PZpSMLoA6CadTLoRYuyV670CB yiBhB5HPXmuiBrY4DdKPSjvAw u ShY2a7W0Om0iWn6gQT4kYRV2N C84PK77xDIza8A8aFD7T3PuVK KtefxiuyeqmQL6LCRgFXTqtW0 7 hQHlZWheQy5uf1E1k696JRXtQ CNwvU55St8gjCcyHRCrkSNEaH 1dgzpmy1lgqmseJqNyPUBkAGd 0 EVy7LLDogKtrIwRmQAG6MgJ4J ZR6iXHpyJ0eoJtbbgexgU5sNj c+NsOgJXTvvoK8M2MrQco0KWC z mKuaGA9mwMNsQRljYv1acMssr PtyIW7zCHBbhvlbEVIixU4hYH LngWMqlWeuYR5yYTYpuzfds97 0 PzWwUXC3CHVofBPeO8SlfA4gJ sOaABLcFKBzT2GglKWaZPdxY4 96MMkgYzB2VTSrszDkL4RqFTX s zCddNpC1n5V4Jx6BEQmtPM01L L18lWRak7E9uRF3N9CxUWHwua edtetysAJ0UOIfLTEgoK56vRG k WNqvEv3wv6B6e707OKGfYZUvx Z89As9awNgrJHVgpFLWkN3ero fqp9bdxuobMwRbTUNmPSr8CCs 0 CIRjhPzxEbTvGKH2HkY2RRX1k IFtyM7xcSicocpbxY6hXtf+T3 G8zQI2vPEvjWdkjIC+AI53tu5 8 A0QkKlteVef9NHGtORE9gCJ1c I5oUFYaJHxlw1P0rCL0G9Gkoq Wcpd2zn0buEJJnHFzdZ87soGV w c6X6GHChpIX1GVCkkTwuFaKas G93Oyc+CUFhsAtjt9RySksha4 ooh0bjoBk9UmNuNUMvxlNomJq u YBJ5k0ClNq98P44pMRvrAGEmS DDrUBHjQXKssVatvm3dxX0iIc 8+PABwhIS1jKM6nO6iKrRfYsK 2 BIlpX662YbKawLLkIlmbo2ygb 0wwiWj8GaUnLSJkxrBofNmmYG V9c9FgJv43D1BzeUeeb5AlEoc 0 xt17kSWot7I1cKX2M3NvPGHrw dljdPBoiBzcOC5wMJMefybzBA MdcP0nIZUcB3h2ErTpMeF4OCg u B7RmvvC0LPDvzAZaJVOpyHFPx V1kkpvbb1chivimKtGtDQBtUD j7ETv2IHEhvAltPdLbGKK0ZwG 2 EBU8gVYnsT6ajQzcsapvxQ3vI yc+SCs0z7lvoPZcHN6vqGP8RR 58EV74lOVhg7A9tIE0K5FzOKW p jwgkzcfjzDI0YOApGBTzdD07J c9bjEicMw5lRXTiCFY7DBSggO FuP3RvdF7zIeTfXMYaYOGiW5X l aQGxXWliR093HQsyLwN0TCVlc fZcK5ZzBACphMgxGhT8e8T7Iq 7ETA76MB45EM16jBRgw8H0tNK 9 N1CoEAVmafscmwmuwXG3TSLyS QBrmD24Mb5baXzaXn3uGOPwYK Y4CIDepJDwR6SycZ1pLfQwZUM w IMGjG0HfeAVfJUrdF988LLlcH dX6YPRtlhCkN2NjPAWrbPndKz X5p9O6Cg8GIk56KO71AC27wOH g o5T7sKD1O2WkSONxjuoxfurom IN1ISVoWSGbyJ01Az6aiTngZd 3yIGBvKJC5GNMlwHJxS1GeyG5 y VtXbNLUlFWUzV0SmkIYcWAuvQ 218OBuaDrP8BWLuimNeI3PgHT LohQszDqZ0a1C0Yx1XTDbpazb 8 P2DrUqxhcKL+BR41XCSuUV62u TCczMFvv9iiyUy2XnYtEVPiJQ R5cOfmQOjhg0RsANLkT24wfFA w c2U6 (more content not included)... Normal [facility] Coding Summary. CD:[id number]:[id number] Gh0bW w+PGhlYWQ+ZX1INYRkS46mfSN icV6DX8cVVT8ITBUFOIMLHI3V EE6bcXC9RFtyK5RujxLf OvpwuVRdXT43JYb9WSO2cRqoL IqlyI8ubMSeA2r1TbPqUI83iL 39HVkoWGLlUjU6BoEeakdbsHW y G1jiZpQurHCdHyb+PHRhYmxlI HdpZHRoPScxMDAlJyBzdHlsZT 9dPi9pQJPaLHZdhWjsiFDhBzG j l0bkWCIgUDihNC2esKazG3Swi XD5VEZuv9c2Ud59uMG+PHRkIH D8kLeqGEphg374GoPdb8myRNV 3 uWJoZAnmQMD4H80gp8F0NQDcH YUuNNT6pIG5sQ4ucJkciouhJ5 HrjIWuKbI4WMI7nSDagV9wyFw n lmlxcF7xTul+J27WNM9VDRJQJ M5TKvh9B8KfImyfiCL+PC90YW FcOB67kRVezALrz5oqgWs0QkJ w OIMnWDH8tBsfOBudw6YhEGPlW 58roWSdy0E2FVBkrSxijZUvQh JcpGL2eK5fITwttnlsx4tyhpf n Iexmu4tlwe59vW72D14zXAvnR SQfJFF2MDMeXRCxdPpwjk3plN 9wIi8+VBajd2voy8fzaEf2VgX w BAQclfGbdXutRWY5a0UmNq93D 5JcgIdao1GxGrv5xo92lODps0 E6fLG2AVphJXVdtC2rHSomMvI 6 TETmTvEhbJ47bTAmMDsdRz5xu BarfRvbRX4iEETljrizBZHxyQ 1wKSExfMCjhTrgGV8cAAJisbt m g732OzKsOZB4PZAyhJAgQ8Eho W1nMyLpXOEcTXDhQ2EbnMGmUP meQ233DNqjPlB3AESiqiHaZ7O s FIPkkHqbFwE5m8W4Uw1Xb0Sjj iedMSL5NVtmFLRuTxQpHpOkRw M9B0YoTpi3PRCtxNxsGX5iQ6N h SKGpdrvgybjptXV9QFFoTCLty Z89hVRhQIdbUv9si9Y8q395CA EqFDWkpY85Gz9yvIxbQHGdsXG U tC9fligeg0wsdxiaXuRwPMNeP Mt6XFx1OILkzFyhDdEhYKP9If F4LZE1wQJnxJ6mjKusrseagZ3 w Oyc+Y55hpQ2nMQY3DPT5dxzhH HQeldNnML17GC56A5OiWwqxqA FibGU+UTKybrVfzSybKE1wMwI j q7ozo2BuEVxoK0BeLPNwWWysJ vc7VDCiNUH0iYX6nD9jCDOjDH zeq0Z0gOH0T7CnvhXnkm5at0o s IJBgYQiyF95yqSRyy5L6ZSOyr RJ4YNAvvCysRgVvpS60Ync+PG UiwNupm9HeUpwag7mop7jcaYq 9 XjMmOCCjnsSqoTlgMUA0q9WlP q25R30pUFuwFMWaCURlFVSmPG RqgHtcfs1vrV4iVc9+PGNvbCB 3 wJB1lR2oZDBaLeS0UOvgO424I qUjiHWbKgcub2ysn1jypRa6Mx YcKFAzclAjjDmoFTV5j3CpOs0 8 K54xBNgtZGTiFROdRVIoHAUcu Qvjal2ijQ2lMl0+IT7gc7rqqq 24hN67xCB+TIWaZMD6lQejSXd w HVXujE4mTCtoMpG2CLQlUtIfq O93jGGvIWqzDm6cfKhpjOhbEB 5nLWQjhbgbg658OwZka2jnXDJ w oANpBXpxFWO9M14vp9C0KEFgQ MYeXRE9xXQ0qA9ufRimwrcviP VkhGtgqeVtzTcaFQomJGotT76 6 IHRvcDsnPlBhdGllbnQgTmFtZ Hp2R9LxOop0ATJwzLulXQ9zrH JrLVthZd9vmSozbRlcCM7pDLB p soidv618XnQup5ieNMJapWRrV IllPOT6L88xe9V6MSDzFLWmDD K6sRX8yV4uoKctwakfsADczNa g zjBmiZvaXNhdCMwpC614JKYwp XpsGbIrdxJcCLYdxJB1QS99VG 65lENdo7E3vZJ9X6HeROUeboj t drxokVU9VNRyPSZlwU43Ju6yy OhyFu0bGEUuBQI2CGUrcTObH7 QprW2sFlAcTUNvYAInK8SbcDS t QQllX307LChjCdG8NTTkcmIoN 2NoIGVzqVcfGkE0v6E1Ik2LI5 B5PE10BJ41uRYyr8V5oZX9L3V h AUBucayatpssoTB0TCNpFAVlo D75Pn0ypSvvVc4sHEYzQFS1PA YooTWgL2HjwY1hUoFsTIMfGGD w N3WytZXnRDmkU646WJztViI0L FCsloOtQ3BgAVSrvZzoYkD5j7 K0Fg5OPKc9LK26RS80hAFek7H 5 oEM2U0PeQMBazdyzposeoPO4X JCjTFJlpO82Jb2cnMniQt7kBO LdKYR5UXHouZZcI5SlwB6qGoI j ZDEmBEYlX5JpfECsBGucT917Z VolYpG5KVPovuTjE2OcNSWysH cjFmR5a0A0Yv8QSGBlTC47AKB 5 iRC0UC12KS65X8MiFixkqOPpq +PHRhYmxlIHdpZHRoPScxMD UbTzViiHxzLJ0hQz1nDMXtXHX v hSjqpTBgRfYmn5loYFRdCQplB A8xnJgzS4CkgNG0FBNra6z1Mq 67W98xP9MqyWW+TPRdkAJ0zBG 0 eE4gHmHdFhE2JPleO765SmXjv HVrCpkhc9dnb7cxdRa9YlP9WP IvuyRbkFfhZKT8w8JkZt83D01 s IHdpZHRoPSIxNSUiIHZhbGlnb h0nwJ3bVf5+IDLlxSB5cFJ1lK 7yBmDkJtY9LBvxK691VpJixNB v Dmtkf1jtg9jxaQx0QsShVTCub yMmmTbmAWU2f3UdGe29K2QvwG edy8NdFvk0nf49gLSib5R6aGO 9 I9XtLPHsglszaNMgsJqhVG9yL XWwkmryOAYxpU8oRXSfQ8n8Yb KtUlJ2UXlxT3RgfjN2PTLyaKH g CSvzKTA8N44hm2I4STYxDNHtP IA5vKJ0rK5byTcdvdfycQZrdU jounLxuImnZRhuBRstK702WUP v dWqbIAYrrY9uHJMbvUJldFspD F5rASGfwvwdXjQSAj3LVfcgWW 4PLJwNKXa1M6KpNiv4UJVqfTe s QT2tgPZuQPkaWj5ziEsxxQlfY T7xFFKevrfgUXCrsR9aZHYmgX OpfNvbXG8qYTQchilgo233WxR x JDT4NNMniPQwV4AlfY4zUqNkG ERvYDIaP5LpxJOhINxbN796DX nnUlJ2ARWmghKjF7BeHGQxoJu u RtD2k1Y1Ls5tZn5fLN5xFAL8N N66GA05kUMmr6V6iEK7A3MaZP OalccfofxsvUU2ONBuANOmiB4 7 dHIgGSafOj7fe6Y8s441FKTpB OErtQ52Wb3vcZduWADdeJOJfG 9ffaeje4apdkdvIqBkPGWkBYs 0 IUg2MFBvcPrjGuKxVJU3LsC4D LB0eOZykV3vzTskhigidT6zLb c+KnVrXSUydcS9V6TlDck8AQQ z yWtdDS1raHQaUCcjJl6eqBgjj XueDJ3cJKExrnvwHCWexC7mRF MvuTOheIshMV5sEWAgvtmif90 0 XfFnGUH1DUNaoPTkS7UrzN0nE yNaZNIvGDRiS7YtyDVyBZznG6 59BNyeTsW3YJYaxcQuO4FxNVX s nSraNtF5s5D4Er1TMMxuDR25E N19cJYjx3W7zPW1D8KqRBAoyr uakkhuzXU8FPVdAQVxaJ84eTP k RAdmCx7bg2J7f848MTSyZADej F77Ma5slEqeYLUneCTHgG4yzl ecb0qxaskfFePjBXVzSRs9KVw 0 LWEowXrlTuPaSXC7QhT3YWL5b YWnfX6hmFcgyodkpP2xPos+T3 J0oOD6eGNrjXvmyKT+CV78nb2 8 Z0OwKcxqKyf4JCXlHPW2hIT5q H2wIXRtWKzrz7G0tOF9E5Fwyf Ayhp1rf1bmQZGpKRmgG59umYB w y4G1XGTzpII0XHMypAvgLlIlz G93Oyc+IXTfwIpam8WlVvyhz1 pbq9fskKe7LxGtEOOidzRytZa u LKJ3y9HnAv79U02wLRboUTAyY SQxMKInIFYbbKbelb9gkC6yHc 8+QCUyhCC6dII1bL5aHtGrMbR 2 QQbnL679YjHqvXDkVuqbf0cwj 1gkxPa5PrBkZLVnwbBwlZvzRH V7s6OzJd93S4JvtQynb1BoOon 0 wv87aOJzb0K5bKH3R5CzAWMxh esgyZAkeMocOW0gJSVeirezWL NdzM2zOBVtT5u4TcVhApX2IJm u P5HrkgY9GLYpkCUmOQZjbOIGh U2tqrkyj2ozbotsEaVkNWUnJX m3PVz1WFAgfLgwOaMpQXT2MhD 2 GHZ5fUGhwG2mtGfxkmxaoM2rD yc+GQk6d5ofpPPxDS1xdTV6VS 76RS00iKQse8N9jHJ3B2MhYLD p hzcoufkxpQK6HDRyTNZbpF29Q g3gsMrkUc0hBVRtQAB5YZHmxY ChE1UdxJ1cNeHdZNDeDHHqK9M l vBGoJDemL191HLajCaF7MYTqh dXoP2MwMZBkbHsjYdN6x3R9Qu 8BOL17TF44IW16qPYua9W5mEK 9 R5XoCOTvhstwtzwxnUL4UUHcK FOnxC28Tk2zrQhxYr0rBFSnDJ I0LFTogFDbX4QzlD5hRaZiIEC w YTSrI0GbjPWwYIxuY078STlbJ uZ4GSSpxyLgJ9AvRQHbnVmaSc L8e2O9Ux3QEr61UM12NF93zPO g j1X6qHF3R3HgQJRyhsxphuakj MI6WWIwHCFzfX50Xe2yhYxhPd 4hWWFdBYR6QVMzoYDfD4JgnK9 y ZkTcDTKgBILfE6IkaMDiISfvX 047PPvrXpZ6SKKhtqRtM7EhGD HnpHrfOxL4u8F7Nw2KYInqmpy 8 B0SiYovxvCI+YH89CGDmVN81k RDdwCVjp7aodTy6ZdOkZJCpMQ A0pGpzNYqyh8LxERNoP60rxGU w c2U6 (more content not included)... Normal [facility] Coding Summary. CD:[id number] Gh0bW w+PGhlYWQ+RK8TQBWhU21amZJ viR4RY0lHED9IGZXLKCJKBP3Q QZ0vaED3DXcxS3XxuqWs VisomDNxLX59FFc3UYL0qXkuG WrtfQ0lmXEeY2y1UrErOH50xJ 91JAkrCYQeKwK3XgDdmgowaXM y Z4seCnOqqQYdIgl+PHRhYmxlI HdpZHRoPScxMDAlJyBzdHlsZT 9yNx3nMDCbDKRmsMzddYRpLxP j e1pcMJFhCXjpRA4neQjkS5Rdz KW5MHFuh9d9Ez48aAM+PHRkIH A7qRpuUAnhv848WpSdj2ocYEP 3 kTYtDIiuAYB9H70fc7Z2QFMeQ DCmTEP4sCD1pC3ujDdmyqwsS1 FdxVZxPvN7YJJ9kMJwwQ9nzTi n otbksL3jEfc+W44GED7BVSTMA K0HTof3P9DaHknqvGP+PC90YW OiNJ00rNCawLNyv5smbVm9FxQ w EEDaIFG0mFnsGXmqu2KuSFScK 95ikNWnt2I8WAUrnOennWOoYm DmlIC1xP4kDNqdlxgvx5uqayz n Ydlbm5zynh86gM88Q35eZIpdG HUoWIT9IDLiBDAszMspgq0sfV 9wIi8+OFusp9jxy0yedSy9OdX w RMKuqiFppVybKDW5v3XhTo60P 6QrgAtqq7SyCwe9nt70eTMrz2 O5jTQ2DJcdCDJbkA2nVVekPaT 6 UTQtJsJqcL29vWMoOFubXt3oj FbbbLkrFT5kRBHcmnxpFJBupT 8cVNJiaGEamUzgSL2rVZOxuxr m s812WvImRZZ8UMYavBQmX4Kdt Q2xLsWjHYMgJXNzE1XisCDzXN gxT971KCcmZnD4ZPLpofPuF0M s SAPuzSteAiJ2g1G4Oz0Qa2Hxd scdIWX3CLwrCCGfHgByCgKeKp H6P3SfDbn1YFWziHbpAY9kJ2Z h CRLatcqqhbgocOR4TJFbOCSta M52zRHoDMqkVj1bb3I8p155DQ GoNXDmjE88Ml4ivMzoZWCktZO U oB1ldavzi6rbicjiOyBgUAIzX Jn3RAe9NGXedGufFaNoKYX7So U6ZZW7qECguY8wnAeqtaiweG5 w Oyc+L79rvZ0jLLV3BEF6ncngL QGireEbNV10WW38P8ZkQarjzC FibGU+WTDcajMgqPhvXZ4dChW j c6dlj6ZiAWogN2RnUOJnOJppX ua3EVVaCPU1qYU0wY6hTZFaEX dhq7Z5sBF5Q3PmfsBbdt7ed0q s YEUfAJumC57fuFEyr4T9WPCqv DS8RWNtjWnqWoNlyC49Ova+PG HczXlnt3TfQbnds9gyu4ukuKo 9 QiWrWDJasmIzwIgvQBN2s5TmB u08N95pUUsuGGWtBICnRZUrPI UyqXvymg9xjS3cMy6+PGNvbCB 3 vJO8bV1sRVEgWyO8OJcyB427T rMzvCKeIejwh5mpd2buvQe1Aq JlSNYwyzUoaTaiIDT6c5GkBy1 8 C22qZLexAXTlIIJhVZMtIXRva Ovqgv0qdC8rNn4+QI7kb3vhno 52fD49gEL+JIMwNGS8oQryIQw w DBUrrR5kSZddXcQ8GTVhGkBsj Y64yGCqGNzcWf1ffAdrrWzpDK 7aYVSmnlzrm394JxBaw0lmZRQ w tIDfDPhnBSK4F31zz1L1FSVtH VQiTAN6aKB7qA6akZdpzrxziE ApzBijwhInzCvkACwiYUoqR31 6 IHRvcDsnPlBhdGllbnQgTmFtZ Sa7A5VwTja4MOVttQarDR3auX RjRKuvKo5tiLmcsGanGC9sPQY p eydzh862KuCul5nkOVXiqQHtN CukGMQ6Q39yd3D5PDJdVHLdYQ F1xIN6jH9xwMyetmkgcEBtjJr g ehBkeQrpEZkdOMkoS665OXTgn LmuXtLgkjVbYWBnwHC5RN45AL 62dUJlg1F0iXD3E9JcSPPdhwn t xcygqLR0ITTnNHFixE65Ms5ci DfpQn4uHLKsLOP1EGHzsNUvZ3 RwgF0tWjAkFJWkUZPtK9LmyKV t QNppL786PSotDrI7ZUYammTbK 0CrWPHytDsfGsO6x4F3Dd0VF7 A2VD11PX38kAWtc1L8kOO3U5V h NCTdeaupnnvfkRJ9ONUfFXAgj N96Xl5wyDsbJq5uOCUzLOF0WK RbcWThC0GbqG5wBvKiVKHtOBW w M0MpfDVlGOgkQ223HQnlSvO7Q ZZmhbZpK9JwQMJuaHcfClX5n7 Y5No9ADNu9PY95JC55qRJwu1A 5 bFY9F4UvNKYrasqfmptjoVH2X MNeLSVzfK35Sv0ayImgAo7iNY CdRJH4VGWjgJZhC2FusL4vCiS j XHPeTZBgG5UmvGTaQNfaH347T WbrIdF9BSZejyUwC8JoURYgvU rhStT3b2V4Fm3CBZZeRQ76CRF 5 xMM7MW59YP69E6VbKpbgpKUfd +PHRhYmxlIHdpZHRoPScxMD TwEcTwkCscVW3dXa8tEXVwLGP v eGyanXJwZeRqe4npTFNcKZxiV F9erPksX0QezOS8IHTta2z4Ku 15F78bX5YvpPL+BSOrhEU5qKG 0 yQ7hEkAvMwX3TNaiG380DbSsw QSnRkxho5jwo6qraDb5XwM9ML NzxiDaqRewMAU6l1NyBh94N26 s IHdpZHRoPSIxNSUiIHZhbGlnb o7diJ3vEa8+OUSxuDW8vMZ4qF 2tJeLfJdH7WUlvL201KzTfrUG v Ttkbb2cht7couCw8IeGcCOUfx wSiuAnvBYI1d5AiYh50T7CltK liz0VxDpj0pe38jOMmj5W1hUP 9 J9ZzGFPqbnqklZDykJkxNN0kB TKlhlxdYLQjrU5wMWUnI7o7Md BfLzZ1MXazO6DfanW5UIXjzQW g SJirAPP6E76yw0Z5CIJgBSWhP JD4nUD5uD8xpYlajjgrgHIikO vmeqUftBjyXAqsFKxeO251KDJ v lYkkLOSkcT3fFEVdtYNgqZasC X5vQDSfhupsZdLXWp9MWdqiVE 6VCQgMYJl6G5LpYam2SAYujUb s KK2vgUBnBYpsCo9ehPxbsJecU S4gZWLtcrreDXJckA7tFIOtsF JmdWriON7nRAFhmzeup478AyR x IPH9YKDveVXjM9DgwA9tLwNhS DRqFPLuS4TokHOfWHfvO481WX glXzU1IRFvtmCrE4OiLEAzgNl u FhI0p3J5Iq7sRq1dMR5cEYF9Z T49QJ55qGMzl0L9mXG9L2OzLJ CobxfljbqghRM7QGVeOPRrwW5 7 hSOxTHnrJi3wn8A7a511RGNvH NYilR42Ln7ljAqsZXCztRXNlU 5ufxlvo1qljzskRiYkGGMdEAk 0 TJv9BFUceYdxBfAwBQF8BsW2C NF8rSFolY9mxMoqgdgtnE9wGk c+BcKbXZOectB8P0WkGzs1OTC z sUhnTB2gnZPnIMgxGx8xjEwrs SiuMF1tGPXuokmcRAGsaX8hNX YoyMUlbJhmEL4lQLFgqwlfm74 0 RuBbLVQ5UMBknCNtD7GyiC3vY wShOXGgAGReP0JduETjSQcrI5 15WFtxFnS4HSLiwsKdH3AuRZH s iZkhBvL9f8O6Cv8QJBeoEU62C B13mEXnr6J5zGC1I4MyTLHpfp gtolslkCG9EHWpJMOamH00gKC k OXvtKp8qz8S9z259GTPzPCAqr T33Do4xuMrqXDBxoJOKfT6qsu uuk7uyijfjReScJUIjHWx6OIl 0 KPIhxZdaDnOjMJU2QmK8KTJ3n JMskG1aiDnqcyxayO5pGsf+T3 F8fVQ2rABjtShfyHQ+EF48jb9 8 L1QnTxfsZmm2ACJgPBZ6jDA0q E7pMJOfEKeux3T5sWY3D3Dqug Ffdq5xk8ylPTOcVZajJ91aoNG w u2I2OIBpwKO3BAEtzTabIiVqd G93Oyc+CLUxqZbrt9BiSfzwv1 xmj0ncuUx1UqFxFPOvhfFcrOi u RHJ0x2OuKv90I80nRLzsQGLyK ATeFFFcYZPsoWwkqa1dpI6tQg 8+NTZawMX7nDV1nN1yRvXnVfR 2 HKmiH294GjJfbDLyIqhke8rqg 5evaPo5KdBsURIedrSiaWrrHR S4z5PdIs60T1VnmEkkw5HdIwa 0 ai03iHEnv6I7xWT7L3QoWBDku knqoCAnsDcdEI0fPVTctiljMP FamK4dKUVjD6m2OjLaYzS7FJn u D7KpmsL7QGWpzDYkEHLpsGWNq X8bqspmj9kurqxcLbDaTAMxDP a0ZKj6HWSlzGhpOoSsBXK7CpR 2 KPC6qETztY8vqKxntyshvF8uE yc+FIc7b4oycPEhSC2sjEC9PA 37XK89kEOyy5H2sAA2Z0LqPMX p guliwucypHL7LFJhRNDdyA78Y r2yvGdkJh0hVVCgGOZ6EYUrmW DuM7HjaR2bYeWrFRWlBRWyW9J l qIArAJvnF791UGjzHmL2EPVed zFvR5CxYVZafDvxYcZ6q2P7Qo 5XYC65GN39ZL77sZPlq2C5nDV 9 F6CmNPEjytwbizxhzDG1JGUiW FPqeF46Iz4ymOjnDi7gQBRmTS W3XNCirWXaF5MvmB3nOdCqNJR w DAFzQ2ZujBRmCIxoZ641KXnsV xS0OVNfbmGwO1AsGYYrtJixOw B8t4B4Mr0WCg16KX58UQ38rKR g w8Y3zFZ9W7EhNHWrbfozgkbss DU0IDIxQLGxbR77Ob6ldPziSh 6hYUCuZEX4VDPrbMGfB5QmgU8 y BgIaTAGcCWShM1HusLZxYKwqH 751HKdyFkZ6BFFipoJlN5KcKQ XmtCqtMaB2j1Y6Ns9VEUlolud 8 E6BhYsmcrDL+LI47VELiVG91s DOleXSsm4tczQm9VtAvRPWxRW Q9fBzvREovu4RuWRBnS22ojOD w c2U6 (more content not included)... Normal [facility] Physician Orderon 12-30-2022 Physician Order [id number]#1.00CD:1 27 Normal [facility] Procedure - Woundon 12-30-19 Procedure - Wound [id number]#1.00CD:1 27 [facility] Consent for Treatmenton 12-02 Consent for Treatment [id number]#1.00CD:12 7 [facility] Multi-Wound Charton 12-27-19 Multi-Wound Chart [id number]#1.00CD:1 27 [facility] Nursing Note - Woundon 12-27 Nursing Note - Wound [id number]#2.00CD:1 27 [facility] Consent for Treatmenton 12-02 Consent for Treatment [id number]#1.00CD:12 7 [facility] Multi-Wound Charton 12-24-19 Multi-Wound Chart [id number]#1.00CD:1 27 [facility] Nursing Note - Woundon 12-24 Nursing Note - Wound [id number]#1.00CD:1 27 [facility] Physician Orderon 12-24-2022 Physician Order [id number]#1.00CD:1 27 [facility] Procedure - Woundon 12-24-19 Procedure - Wound [id number]#1.00CD:1 27 [facility] Coding Summary.on 12-20-2022 Coding Summary. CD:[id number] Gh0bW w+PGhlYWQ+HX0JZPVdO91fyDT ybR3GD1yEWX1PLIZPGNYVPZ4T EC4nhFN0EFtkV3IzjkOr AvtazNPwCP62OAu4QCT4mGzaJ VkpwW4ikVJrA3w3DhMrRU85zB 15NDnjARJdEiH9InVzpuourLK y L5nhDhEjoWZpVwt+PHRhYmxlI HdpZHRoPScxMDAlJyBzdHlsZT 6pJn0mAHCaQJQtjBayoXHeUpY j z5hkKBImRBoaHK2yvFtvC0Ipb WY8ZBHan1c6Wz10hER+PHRkIH I7cGisPQuhm933IjVzk3ddZXB 3 vOMwLJuiACD3Q70br3D3PESqG WXmXFI7iCE0uP3pwTpeivwbJ6 QrzSGqPzD2KGH6tENztJ4vwVz n lbjbyR8kDnv+X28HCM3BBEJQH N6BFrq5H3NdDiwhwCW+PC90YW ImMI05sRJwfGGxj5lgsVq3OeE w ENCjLAL0zFkcBTlub5LuPOTvU 92brQCqr5V5RWAhuShdeQSdOr JjxZJ3eW8xAJpnzflmi1ijlrg n Cwurx2yvem54kS97E68pOJqnY TIaWCD3FSZyBDWxeEoqcx5pxV 9wIi8+NEhix6uan2fttTi5FcT w CZTqxhUaoXyxLMA6y8HlQq63T 6WuzEsre4IiVlp2lv14nYVlu3 D2oXS5VWlhGRUtiN9mLEbmYfB 6 AVNcFxFduG48dOAaFTxcOn2ly GxghPnuEZ1nXWBlwqmkHKNimX 7iAYYwvJQwrZekHT0uIQFscrn m f083BwZhZMC8HOUfjKSkA4Gbu U8bUzVkNKArTYYlU5LqrWZrNG dqO845VEsoXrE8OCZptcCsT8Y s ZGGulFudSkR8g1U8Jf9Pf2Dyf bimDSF7KKxtKODpGfTaJrIwVa L5A7FmXly6WPArvXnqJB3iK2R h NGKfztqwbbnzpCL5XGHyJXXia K62bHBcZKueHn5rz0Q4i795YM PyWNAksQ17Gu4wiRjwYUOraYY U zW2uauqul3rmqtrsFiIfYYCbG Su2GPo7PXOinJilSbEiHNV2Wo G0KBL1dHAneK2hnJsasymvhM8 w Oyc+U15ffU5qPKK7OKH4otpaD DCarhMmHD75IK87Q1RvJrcxqO FibGU+TVYeafZsqIuwVV3jSjK j z7ryq1LxVKyxW1FcEMZzGCeeW xf4WIByIAX5wKK0lR8uRBIkKH ynx8H0kIR8W8JvcjVtxo0tk1w s DTErFXagY03gsYNal9R8CRVev YF7EYMgsCzhVfCbhE73Cbb+PG VplAlir7JwQmobz2pfn6ffhIg 9 OfLdRIJmqlPfqRfkZFB1d4PfH u42N44xDWyaBPCaDETuNMQvWF XxjQptzv5kxD1nTn7+PGNvbCB 3 hFC6oB0bMXRtJtU5PHfwM888J sPhnYAfDeboi0ghg4zulGn9Nw UsLVBbogOnnDmlJPD1i9IzRm1 8 C91wLYqfXGQjMRDeHPRsXVJwd Ngicb3nxH5jUe5+TM3pu7vktq 30fC22xNY+FJFsHBJ5vNxlHXj w RVJhiH5jAXaxAzA8BNDnYdZnp E46rXMeKLkzJt0egYzqlRibCM 0cZJGuxqznz200XmGpa9epUGU w mWUfUPxxLQL1W01xy8T5PWPoL FCySGD7dJZ7uQ3xsOfcaoadiG SnvClqvsRsnRubKTaoXAfuH53 6 IHRvcDsnPlBhdGllbnQgTmFtZ Wa2I0IqEoe7UBPnuRkzUX5qnS McGJwbOl3yfRywhUwxTS8wEBZ p sznyv318ItZta9kzHSDvzXUxB EdoXNQ3R73rq7D0QAOcYIZsAL P0jHH9cU7vbYkazmrcxDLzkYh g fqQpxFivJBfqPKdfS596DEAno BjbQkQzeqFuMKWwcBQ0UN37HQ 51gYXan6B4cJK7K6PyOVCeoxj t wsfobDQ0TVYqSIEnpR12Eq8zt FdaSq6mHEOxRNJ6WCOlqILvR5 RrgR0vMaNdIQOmWFHyJ5QjzBL t AFipC789XKbzKuE7PYQjhiLvD 9VkGGBcpDshJdE8o6M9Cg7JZ1 B5JW19HU33gARfw1Z6eMI8G6V h ZTVhlipwwaaowGF3DLXeRWIiy A49Ku4jwLqgWu7dOOLjHKP2RE VayZOxM1PriZ4pWhEyGKBwDEV w O7HbrJCtUZdkZ463MKedWmQ3Z MYocqJwU8MbXUIriUciQaD0s3 W1Ez0CWLl5ZH03KQ25gAUlh3L 5 eGD3Q8LwGLNmyseupwlqrDA5T KZnWLKkvP61Ya2ryYgvMi1iWX KfJPO6UFOpoJRpM4TzkL3bJwU j RTGvHHUiJ9YvhWOcNGitU881B EmjUxS7PXBsmcPnP6YgQKWrpJ maGsB7x0W7Nb8PBXCvYR38AGW 5 zLV6CJ64OB19L8JbTzdxkZYvf +PHRhYmxlIHdpZHRoPScxMD OuDdZteOxoYZ6eGl8aBOAyMHB v oWmbiTTbXxIlr9fvLIRePYtlS Z0plQnsO0RkgRY4UOWhe7a8Nu 02F89rR3RvjEY+WBRijBO1fLX 0 lO8rVtGrCmP1SOwnX864HkBcx FSdNhode2mkl7ckzPu7IaP6HD PvkcZpxGxgQPR6p2RzUx61A21 s IHdpZHRoPSIxNSUiIHZhbGlnb e6sfL1jWv8+USComTH6kWL7zB 1eApBkBzQ1QDadG865VnFvhMC v Dciwx3mjx0aahTd0HqXrNJHve vCgaCpsBJQ9l7KbHk98E7BkgU ncw1XgBau5xj23gSIqv3F8dEN 9 W1ZcYODkiagnvWOutSbbOW9oS QBlgjrfEHPilX9gBRBdK0b0Uk OoQxS7FVtoM7VvbhI2XEFleEQ g EBuuKTX6E00cg9X5QMDwPNBwV SD5zGE1pK8ktVxbdpnoeHInuL evdkZgbDcrRHaxFJhaF188DZZ v gVgxGWRikG0mKMSzhNRxlTwhT U1oEIHfmxvuBbDGRt2BBjsdAR 2VDEhAUJr0G0KfHru6KQMphVv s LI6dcAOcCIhyYh7jzVcxpHfnN B0yBEOwhjnoCTNkeZ6mXDUbeQ IihJiaWZ3bNXVcilhfw417LoF x XKT0AMIptRBuS9IunD3nPbEnJ IImIBAiU0AawFSkRUshJ572RE pjGiF7BRNnhfLhQ2BtQYKxxPu u UgA7x2W1Me4jVl1rFW1fXCO3B K33XL38sKAkl7Y3pAT5E8NeSI QxuogvhkjqoWI4CAMjIKEqtW5 7 iMUbOEwsBm0dk2D6o282ZDDmS TTrqE41Ce8fzUrvQARvnKBFnD 8dsgjtm6altemnUcOsSZRcHHi 0 QRo5SYBfgIeaNyOmTCP4EzU7A TO8rJYpyG9neAyiirkjbT5wPr c+JzFqJICbnqR6V8RtBun3GGY z iOfaGR9ppHEfSAyoWs8bjRxxe EceYB6gQTPpaxpnXOPufK9wUG UwoTEomGxwOX9lYQKwjlqvc85 0 DwBaBVP5VNKufKNqY1EwfA3jE jEaATZlXONoC5VsxFEgPCrcW6 58NGlvUpU7WNShxfZxA0PyIPF s eZhfUfM8o9J3Zi8RJNytNK47G V05eRCzl6W2nTZ8Y2OyLBYlsg liuwdeoTH0UENvRKEekZ39eMK k GSpySy4lt3S6k319NCQsCBSjp M96Wg5wiNxwHRCwdFKZpR0aca eah7moxxnlFdDrIAQbBOm7WUx 0 EAEwlQniEbKnOJN3HsD4EFY1l AUydN0tbVdwvwkajB3bBuk+T3 N5sWK2vLGtpHyxvVE+GH75st0 8 L4FtUqtvFbl8LFBkXVN7lOC7z V5sYOYsXGdpc6H6sBV6X0Lksp Umrt9oo3ccOUSoCWhlN88lrIL w l8H5KSNuuUW0SOBnaSbtLwLpi G93Oyc+KIJirCiug0IfVhveh3 gze1nnkYg5YfJgMYAxhfExsAq u XDH8h5FcNi42Y67dRUfqXPTlZ AJiAPIoATOnjJvbdy5kvF8qDk 8+DANpcAT1kOF8lD5yWqFmYfX 2 NIllZ816WsFusQMpGvryn3lue 2aahEx9TkStQPHeaqHjkCfjRK J4v0CeHs08R7FvwChip6OxWxj 0 du09sPAvh0X3cFO7D5FnBWIgx hkpyFEksVdhMK6yMCGyrzfxAO VyoL5bRYTsL9j4AwKpDcQ8VDf u G4DyvoK7FGZteBAwUHZojEKMh U8ulsjzn5hcwsntYhMrTEAwHR l7MHl4WXKtuEfqFqHsHQM4OgD 2 UQZ8gJLtrD3fxAwullvzfS5bY yc+GMz7l5fskYNbWS1ouOI7PU 00YW21oMUwo2U7eCC5G5ZuCGI p xsyphwdfrNE2TREgPPPoaM92P q9buLakKb3cOTCzQSG0OKMoyJ IjF9QntN8nDyBtCNUwFYTaM5M l ePQmZVyxM395VSzlRhM9QSJsc iEnB5IyCCDicBsvWoB3g7B0Vg 7OQC54GD45JQ87aAFoc7A6wSY 9 D7EmYBQgndfqrmwnaSS5UCPwR EJgxB76Lg7zuGitEj1uVSTeQB B6KKZysPIpN1VsdP4wYpKkZXJ w ULRxU2QmnYWpZZipT454CPmoE eH2TIPdriJqD1QbUGDzxLqeGa I5r3L1Mv5KSp92KZ94FF23vWV g r4V7hLR6A1XdGWAnfwdgbukjs IU5ZMBpNEVieK31Uu2mcQjaJw 5jHCEwHQJ8RXHxsTQgJ0JolA6 y FcRvQMXzMUSlP8EhiPAePLapK 680BFdzVlO1NYHovqHbM6VvKR RltGvpYnG1j7S7Oe5VYLtgivt 8 H7PyMdlmvAE+PY07YMHcXW22q ZEubRMdt7xzkSq4AqVeYEZsDC U0tUonHJeyi5MxNXAdN04emUF w c2U6 (more content not included)... Normal [facility] Consent for Treatmenton 12-01 Consent for Treatment [id number]#1.00CD:12 7 [facility] Multi-Wound Charton 12-17-19 Multi-Wound Chart [id number]#1.00CD:1 27 [facility] Nursing Assessment - Woundon 12-17-2022 Nursing Assessment - Wound [id number]#1.00CD:1 27 [facility] Nursing Note - Woundon 12-17 Nursing Note - Wound [id number]#1.00CD:1 27 [facility] Physician Orderon 12-17-2022 Physician Order [id number]#1.00CD:1 27 [facility] Procedure - Woundon 12-17-19 Procedure - Wound [id number]#1.00CD:1 27 [facility] Progress Note - Woundon 12-01 Progress Note - Wound [id number]#1.00CD:1 27 [facility] Coding Summary.on 12-12-2022 Coding Summary. CD:[id number]:[id number] Gh0bW w+PGhlYWQ+WH7BWQVpI48zzCV isX5NB7cJKA6VAXCUSPUNRM7Z RA4pkTJ6AUetJ7TjkaIp LtgjtZEhGO46AVp6GOF0jHrgM JiutB8xiAJwC3a1IlSxWZ79sB 02KVfbPGNhVtY5AsDwfoyxrXZ y V7tdWkDfgTItYzt+PHRhYmxlI HdpZHRoPScxMDAlJyBzdHlsZT 7kYf8jXRMqQNJttGowoNBbZgH j w8cdCLMiXYphON9qwYsxL8Qah QI7NSZdp2s3Yo74eGH+PHRkIH G9eFrtUBhit764HqRoa1ejMJV 3 dBDcBSbcGWH2S84vr9Y6GXHxQ GCmIRT6qGJ7gX7soBgjbzqpA8 FsgLKrUrN4KZT1eMPmzH8zcMe n nvxflA6pWgu+G46ONS9GJHCKY H8JApa7L4WqAvymeUJ+PC90YW XnHA47oOBncPPyn6hiaSz0OuO w FBMhCUH1cEmgZWklk6JxAMRwH 85orLHyb1N6IYIgoIdjcLMqMt FtjWI1vH6nMBqjachwn0nponk n Jwieg5guyi11sV47R12wNQkcG EDxKLI7VATqWZNqaIbcaf2kcZ 9wIi8+OIfjm2kjb2mudBr0YlR w SZXcvwWtdDigKMX8f6FzQl31F 9NbhBvmo1UhBjj5lw05tLZth4 P2nCK3IAwuBUUwmZ9sVAhiZyA 6 GGTxJoKysB64sORdQDgbMa4dp DhdySgpSF4sKHBxkmpaGCQbqM 4gVMHctBQkdNveFB8wZSSbhkg m r480CvYtGPO0EISevOOoX5Pil N3wKnDuBLLvEUGgQ3DhvJQeYT ucI294AOvfVfY6ZKLaueRuH5N s RONgyLimKdG2z2T1Yt6Cn9Tft odhEMQ2LIcpZFVbQgPfTlLvJb I1T4LaRzp0MJQduZktTE9rA0T h IWUrltoiyiqskER7TVDxTPHjr P88tJIpZAxpIz2nt5V8h573TN LeIQIceK61Uq6zjEobHKVooKU U pK4aexwdf1ivoiwbVxMxUDRfV Am8YTd1SPEnqSqpKzBrESO6Zz C5LNR2tEHstI4geRmhjqmppM2 w Oyc+R12adO6wXAW3CTV8rxlqJ SThbtHkQK92SN17C0JoDhqtyK FibGU+QMNnjsLfuKyuPR0xNpQ j j9lre6RvBHlmI1XuUYLsWPgpG xa7HCJrRYX0sUS7oC3gSRDkCP kkl3W8aQF8C6WjoeOdzf4ge1p s QFOuBCypM99vyMFqs5Y5WPDhs FL4NROxjRbxVoPgkB14Mxs+PG BnjAhff3PtXbnoo5wmv3qmuFa 9 SkFkXHZfnoSvqWzbFLM8d7VyX h69V58tFHnhALDvLNVmNVLiKS ZimXcpid6xfP7rTe8+PGNvbCB 3 aNR4cB3xJIAsIsI6TTihG538W tZfoLWyNnguf2kvo2tdhHp5Rb HwJTPfiuVvgGqwOCD7c9CbXc7 8 A00kGXssVVVfCANwENCaBITfy Ynole2xcO6fEm8+FN5tw2nwmr 30vZ88rYE+RFWoOPW2xXkaLBc w JRBhmS0iBBxjQvN2JIDyChVhe T82kPTtNOpfYy2rwEmjxJicNX 7yHMSzteort378WqNjq8vkIDR w bATkSJofDUT9V81hm2U7KPJmC IFlGIH2iHS3sG5nxHhncrqlyA IufYtuqgYojPpfIJsgCBacO56 6 IHRvcDsnPlBhdGllbnQgTmFtZ Tk0R3IxLou6FJMniYqiMQ4ugA XoLHnnLe0ikNhbuElpDF2bELR p bmhyt929IePgo6hpJZAplYCaH UokBGR5A02gg4H8BCCkYIDuNQ E1zIQ0dJ3iaWdmtgmjqHNngOn g ujZmgWasCJmvXBmwW118IWRli TkwPxZymwPoWOQikCY2WV14CA 66nLHkb0R9uGI1K9IxQIPmtig t eiqrbBF4RDJbJXCbfX09Ul5vj LotOn3uGZLxDYU4JJBbmQDzJ2 JnjG4aGoRoZUGgMADbH7TktCY t NLbjW522PZfxGkP4RKMxdpRfE 5MfRCYeeRftZnT4z7X0Wp0OK0 S6RV65EL62nBCcw1Q8sMK2O5P h VTAjbwsdffpnjCX3RERpHSSzi A64Jz6zaXhqIa0tKOByCPA7ZG HaoYYvU5QtgF5vUuJrUSTgKNN w X4BoiKUdLTmqD232EMcxRaU2X TGwwmYrL1LpIWShmGwyGzT8r4 W7Nn8ZYPw6DL51TY09bTMmv4K 5 ySQ0P3ShURPflkqeqiamfLE4N APlWOXubE75Qd6quZotDq1hGS VmGES2KBWqkHEsY5SetO0eSkN j CENrCJYtC9ZeoUMaLBxkA147K GoqChC8WHWimcZmL4KtEVUkbD qlVrD2r5Z9Ka3CNFVdFC47BAX 5 aVL1OI35EA90V4XcFkyodLBcn +PHRhYmxlIHdpZHRoPScxMD YbVhJogUeuOI3fWj8kIHAkWAW v bOgmvZDjOvNfd1jfGGIzYYxtT I5bwVahE7GsiBT5KBSdh5t3Sr 74G06bD0ZfbMU+ABOvkXD3kKD 0 eK6gDzRlJyM2QRjeO840ZmUtv UKqIzewv8cte0dpyOt8NlT6JP MxcgWynZxjYPZ0q8MuVc91H58 s IHdpZHRoPSIxNSUiIHZhbGlnb p0psJ7sHh8+QOLobLN5wMH6mS 4wHhIjXsB1IWmkU412YyQfvEW v Eoxet8znh3nhbWo3XcNdWOKfz uCdwWwzLUH7b8QfHl74S8EyaC isu3GcQox1gn79dIWzg5Z4aUI 9 X4NlXAHeozvpzCSwgVphCR7wP JApvhalETKaeV8eYXCdY3t6Gf YsZiR8FCzqL1UvbgN9DTRnsOK g KNgyKNV1Y22de4A7OTOwEPQzR TI6mIN6rM1juYiaztfoxBJatO voqdJnxMywEYleUImhG349ZRM v fLbxEEKofR6uPNJtvMUubHelS U9nASHlzekpCwSZKr6TJhztEO 9GXKxGYIs4V7JsEtc9VDXixSe s FD3vzUXlJYcgTp2fyXmtjNetO L1gUWBkjogsOATinQ4dVOCllC JuyGhoKJ3xUDJspmmxz257YwR x NQT6CDCpyWFvR7YgsU4cMsTiV MMnDPVjX5VibOSxQQlcT525PM uyXoC2MMToyzTvD7NwAZXolNe u LlM7r6M0Wn4oYk5fYM3cXWN8B W94IL21cXWjv2C3xIM4H6DzPC JzoyxjbgulbWH0RHMrMVGcrT1 7 tOLzHJdbNn8uv0Z8k356LLHjW TFohP96Qj6byAbeVTKnlXRCbN 1qtsutu3qdditsWhEvVVHmDEb 0 QSj9SAWeeHkrUkTaLZF6SyH6M LM9cTWcmK7bpUqkymkwyK5bAe c+DxYhLHEkjkP1S6VzTsk9SZX z lZfwKF0ixBOfNQruHx7mqAoqk IzdFM1iYRDsbpueYTBsqU8mTG LizGIrlGqmIR4ySCBhanbdi11 0 OfMiBTV3SKExiVPbG6SovY4zH oNaUBFbFEXbP9WmmVGcYPyiC5 40WNfbSgO2TQXbjdPvB0RnRJW s cOutCaH8d3A0Eu7EFLzlGK40O M01rFSjd4G9tJS6H0YwANLdoo wvpnowzOS8EQJdJMVffE23xUU k LZmbFj0gu2J3i848TMBiZBRku O78Tn9yxJaeKQGeeIDJpT0oty myh6ymqjucWkOuGQZbHSy1EVl 0 GKCpsOraPlOwLQN8MfB8YRG8l CUevD4pcQqhdislcI7uRhh+T3 P3vNB6mUQupSbkuID+EY57oq5 8 I1PeDyhqLtc1WINsPKZ0vAR2f R1lLTAnCIjnh2A3zZI9J4Lory Qyew0gi7xyRILgFUrlY91wzTZ w a4K7DDTvbGH8ENVdvYieToDgh G93Oyc+OQVoyUpjl3XxPtkox6 qdm5qluSx0UfZkUVCgjlXurCj u TUG2b6RtHi23D19sHBhnPGCgO CEaLYByRNDmvUhbrq8npQ1oZg 8+DJQzkDQ9qMC1xG8jZbDgGlG 2 WDosN251FkOazGOwBkawk6sdl 2doyLa3HjXkSOZxrbTaqUzuWV L4s0RkWr26Z2MhpUubp3BcBki 0 jb04pDLcg0J7pUW2T5RtWHCcp xnzlCKqrFfwAY4mCCQjvrbbFZ FcdX5uWXQaZ6g1DwPhIbO2IHc u N4BnskF3VKNzoUOhKBOuyLWTf U6xdwdll8igxwsoKaRrFTRkHS i8KXp7YJDhrGakAwBgEGN8PtJ 2 IWU0wCZwlJ4wvWdnajccjX4iV yc+LKa1a5iiuRGcBA8hnYU8PV 96EB16hQPwx2C3jXO3N2CuXZM p lfvodqwkqIA9YDUdFXUkwL74D j4jbQkkGx2nMAZcGMQ4VPUceK SzK7LueO4oDmZmBMTtIGCoR4E l yXSfJCegU408CFvlWqB3IPDnf pQiG5NiJAZgrCisSxV0a4O4Zf 8YQK58NW34FK26eLQkw5R1aBC 9 P2DlVQNwiibkjnucmDB1UTPwT QEvoV71Uf7gqAqlUi4pMAXgGT T8ETHztYPjK2WsvY4cRaPpLBM w NBQoC8UpbJDbNLmaT165WYnmA fE2BELoguJkM1ZjPFMgeNpcYd C2c2B9Ig8ZPm61OE73VC33sXT g c9E5jDP7R1VsSVDqbuynnhadb LX8GDLbXNOklZ78Xz5kbJwnHd 3oJDBzLZQ0RTPttPEuH3JipM8 y SoYmYUAjLCWeR3UukDNbSBolD 044SAxiVgZ7ORUdprDfH8UxIH TdcJgpCrW2f2H8Ny6OPXtijuj 8 V0DpSsfnlYI+RC88URXvBF57g FWtgDOhp8wtyTw3FoIiSFUlTS A5wXjwBQnfg5VfORZdM96wlUL w c2U6 (more content not included)... [facility] Consent for Treatmenton 12-01 Consent for Treatment [id number]#1.00CD:12 7 [facility] Multi-Wound Charton 12-10-19 Multi-Wound Chart [id number]#1.00CD:1 27 Normal [facility] Nursing Note - Woundon 12-10 Nursing Note - Wound [id number]#1.00CD:1 27 Normal [facility] Physician Orderon 12-10-2022 Physician Order [id number]#1.00CD:1 27 Normal [facility] Procedure - Woundon 12-10-19 Procedure - Wound [id number]#1.00CD:1 27 Normal [facility] Nursing Note - Woundon 12-09 Nursing Note - Wound [id number]#2.00CD:1 27 [facility] Coding Summary.on 12-04-2022 Coding Summary. CD:[id number] Gh0bW w+PGhlYWQ+QK0IYXGyM79gsKQ luV1OI6sJYK2GFCLQHXXIHR3O MU4ziMC5APhqY9FxhyNj McmtxNItFS86JKg4XLY9vMmoF RsxbL9buEWoZ4z5VcJqGH10pQ 53CIepTINtGjJ8BxCmkcbypRD y L2wxNpMdlVIxQag+PHRhYmxlI HdpZHRoPScxMDAlJyBzdHlsZT 8wWp1vFPNxWBEpqYohoDScVxX j n9keGCYuNIafQK0vqVafJ9Tob TY5WNDdp2g6Bf68eDK+PHRkIH O2gChyPPvuc498ImVik9xmXVQ 3 gXZfOCfuSDD9G68uf1H4CECvM UTxZNN6wNO8rX7qzIxlfcnwQ4 QdrZQsArU6KEI8oHVsaG9imVj n bmrvgL3pToy+R80QJT2TNVPCC O4ZYyy4U8MxHehjqXA+PC90YW AmSR72xLWlwVCkh4woiQn4EzK w RNAuNUQ3aQwoRWxyw4GuYVOqO 14tkEHhf0S8CHIkwBuloJVxEd UwoUH7aI4aPXiplxeoq3dvphb n Hobsy5vidr15gB28L99gHJpoT VMdNTX6LFYbWDErxAdqml8uyD 9wIi8+ODfww0zws7yahUq7KgD w CIIuydOraMkpMZW9v2WmFz73J 4LhtWpwh0BaKnc4um85sCSga7 B4dIO3YAkeYGXloU7cFEelUhK 6 NNOoQiBeeN65fHUxPPguIn7gz HfzdQurMM1xEBJipumkGMKibI 0gPRXepTZvdApzNP3kFPBywtp m x207DtFtZAE1SKHmyZRyG3Ndw P5nAfClAZJwHUPgO5UhhNDcVU xsA689JHzyFsU3QBNwkwVdG9J s JWRqcJbvHuX6y1D9Uq7Pg0Aag frdAOU3KPkmZQLuEuF2JgDuGl M9P2QqXpn1JLQbkOjlOK9eF9A h XYYulrrotajgaYO2IYDsGZJxb L35wMQxPFrhKq4hh8C9l438SA EnSBEtuW03Od6jrRspVBQdlBB U qZ5gsrbhy7tyndhnMgZzSYYsW Nw4YXq7QTMmpAnjRtMdWXB1La E2FEJ8hQSuaA2rhGorhggamD1 w Oyc+Y24dfL7uIYW1QFX3jeixN BNghgGaEU17RR57A9SkAhaqtI FibGU+ZBPrrhMskBvyMX3nKlU j m0bgo9EzYMoxN3DhWVMwCXpuN xs8JAGcXFX6wAJ1bN2sZXBvLE kvx2A1pXB1F0TwqyIknc8dw1r s TPSpCDsaT78ncCNfa6L4QWVqh RN8CGIgxScuCaIthY08Lst+PG YevDpvv6QqVfbsj0njs1cuvKt 9 CdPgBNTwaiLymSzrECA4w4HiP r02R96aCBnbDJMeCUBkVTGhUN MubPhanh3ijX0rBg5+PGNvbCB 3 sOK5iY4vUSUiBhM4PAkfW607S aJyzNYjYdbyc0has2lueFb3Kq YsFSAwofBbjMqhONJ7a1ImCk5 8 E46lEBdaASFpXCEyGUQwGWPwd Zojjb4djE2sGq1+OO1ss3ljqa 81qC62lMR+LSCtTGO3vScdUCr w YONmiW6hCIeuXlD0RMPcYdRxe F88aPPzHSwdSh4hvQxtmXjlWE 6bAMDbssjxl407LwMvf3ydFHR w sTPrYAzgUBT0K42ym4O5CTPpD RCvXJC0sCC6wV9voKugubbwhY QjpZmpnrWqfPwiRUjpKWmwV07 6 IHRvcDsnPlBhdGllbnQgTmFtZ Ep9D7QhSbe0BTYcoWidTI9zkW MlYLdwGp0niQtcgBskKK2gUQX p dfvew923KjMsd3wpPFEmhTPfQ AbuDTY0N68qo1K3OPNgFOZsFW G3wOA6uH1mgOhozoyykBZecAg g khKkmYtuXGuiVPrbH532SOHun XphPkSvuqYjZSHgcEC3LO60SN 58sZZsl5N7fJV6R3DbZHDfbbw t fyatnBA4ZRBiFVTklK84Cr2gr VffQo6yDAYfDPP6NOEepVJrH0 BztV1iQvGzCGGpBWGaS3EheQQ t EVffN106WPpxKnF9PKVzyxAtO 2PyCXCyySczQoK5y3B7Kp3SA0 I6XA81ZJ94bYGim8M6lMW8C5H h QYRawgueybewyGB3THFoPYUza X23Yq8vmEszKb5tVNVnQYH3ZI GliUVbW1FwcU1mKqMiUKNcOSR w Y5DmzKCqSBxwT244VOjqRnQ7P IIpkaKhK8SzYDRbmGhhXjA7z2 Y4Mv3RQVx9GO03DA12lQStt6T 5 eFK8O9RjXFKoohljcjwkpPQ3X UEoTHJiwA59Sk9fnRsvPv2iMT GbNBY8GXIjqXAnU6LrwD9xZhB j NWNhXPFhX1QpyZUtEYxdE390U AuwWoK6ODSrflLyB8IgOFEcvO apBoM1o2B7Qs3GTFVaJD24IYA 5 bXU0GG99VA16Q1DsCtuyuHAkw +PHRhYmxlIHdpZHRoPScxMD BqIqIkjNfbSC5pFy4aRKFhNGA v xJpmdJIdJrXsy3saPZOaVUptG Y0wkChbP2CugQJ3HUCfz5u5Ex 44S54zQ5EwwWC+TKPjzRB6aTS 0 eY4tXkSvHqK3CJgjE788LiZbz WVmMqray9zue2fdsGk7RlJ3MC WhmjQcwQmyLXM8p6FgDu06U04 s IHdpZHRoPSIxNSUiIHZhbGlnb c0tyW1aBt3+VZMruEI1zCU9eV 2eJaVwIvF2YSrkM860NgTiiZO v Hhvep7ghi7usrYf5AwZyPJOsn qKwyJjeZKS8c7CxJk98G2MuuU qog2KsErn7nm68uZPqj6O4yTJ 9 M0RdXWNubzelyUBkgLtrHP4xH MMunbudMWFvaL1bHDShM2z6Op ShDbL2FDafU7RpqxL9VVAsnPP g TCqfGJE7Q06wy6T1IPEdMRGiL GP3vTH1aE8ioKjfbxrgvRClpI tgmzPuiGghXJxkFJdvR574WRJ v bVljBVGqhF1vHBNjmNGnqZomM G7kNDApogqjSlHLGb6BJlpdJZ 7EBXwHJTv3G7GsXew4TDRkvSn s UH5vsYHkENvzBj2fnNpfmElpP G0lELUmcrlfQEPbxE7kGRCxeH OtnFviZC4xTHQqlhval416BqX x XCI0GCRknROvZ6IcfK7oMvQkF HMdCKVaC0MpjTEzZBgfJ501MF etLjP2TBKcsmQuT1YqIQJyvDl u BiN2k5S7Yh6sQo4iID5wXGB2N L48XC75zLVqv5Q4nTL5A7XrOP KhgcxxplcuxYK1FHOeBUEpbU0 7 cYXfYJeyDq5bf7G6q175RLKeE WFgtU11Ab4aaSmpBZRafLPGvM 0bejrzw8jkygoyPzQgMKHnALp 0 BQd8NJDkaLznCbAkOMB0WrC3C YB3kFMqsV3ypJzpxsjmzK8nKy c+MgIjLRSpboQ4V0KnAsp6GYP z uTsxPM6phMPhOWcsBp4hbJhik KpyYY0vLSUgscvsWINvcQ8jNB RqiBNfbRdgXN5bOELhxewjj87 0 UfDwBDC7IVXwwSDkP8FuuW3vH wIxXKExOILoL6EehAEhHYfxZ5 41IFzyFbY8BMShtsQrN9OfATT s mFyrUoS2c3Z5Ln4KGHcdPC81G Y04qLBkf0X8eBX7B1IcRAHivb xbzogpvYB1GEUrYKPbcA50yUS k CXgdGn9jl5K8g697ZZSnARWhm K44Za8zwZxdDNQzyOCNnB0gob zii0gwuxjuSgHmOCFrTFu0HNa 0 OLUgdQbqJlQjRKZ1TbV6SEL8q LFzjK6wuCkpipfvxB9fWep+T3 J6vYV7hRLheRsinKR+KL41ba7 8 D8QwKkkgGpl8LLUzGRK6oDU0m J8fBAIuYNkur8Z8nDA6Y4Yyei Izom6ou2mtJWNzXIypY61dnCD w b0H2UKCxmHF8DTYsmRtdPfYpe G93Oyc+XGHkfAsjs7UyFxwix0 tnn3pjyEq5SnSvDNFqbsKfmAx u EST8p3FoKm98D42gUHnsTWEqW CApPRQzSKXeuNsgiu1bcO5gTg 8+FRTjnWO3cKT2aP8mAxQaRuV 2 ZOidB279CiXhtDDbDyhka2guu 1qewPe5XnDhJDJxqmTfkLeoVF B8x6VuJi67N6GelRsfc4OkChb 0 qu86lFVms9A5nIJ9A0CdPDBux wwmhOJjgRirWJ9fHXMgbeukTM OqqP8eDZNuM3a0KlXfZwR8LPn u T7FtvgD1WUOkxXTgXMDsfFQHv C4macrks0pepqfcFwIeYGVsPN g2DYp4RYGmtCrbHkVqKZW4KmP 2 LES1xVIyhO9eoBvkbpitxH5hF yc+SIw6o4fkwLVyHE5osDJ6TY 56JT32gYQii5V5eZE5W4HdWYK p essemxvyiUE1HOPwLZHhbP03Q l6ngQphYy4rPVBnFJG3ECGueV NsG3QijT5oHoFuSTXhOOXjH2V l vJXiXYrtC371YHzzArP5ERNhw iLeH6EnDHKweEicCrJ8o2S2Rr 0XEN19JE86CA78tXUpc4F5tPI 9 A0KrUJKfzpinialawDV7ZJTzM MJxnW62Hc3zoPmzCe8oFMGvWP A4STUjaEZyD1FzbE5fVyVoWNZ w UNTtO6BsoRYhLJwtK017HLxpD jG3QYRfgsMtI7WePVDqzYupJk J5b5P3Uv5UOj34GP79MK45lMU g v8T3wFA8Y9NeZUTgmepfflfwq MU1GQZjGBXirH84Ke9jgBeaIc 8pQIJeVHJ8UGDhrLAnU6RpzQ8 y TvTsZYFcONUgK3GrmLIkNDctZ 041INrqFgF3YWIjqeZrC2UzGB TdyWssSgL6k2G7Zp5YYNsndzs 8 A3FrXqiscCC+ZL45NODaCP70p SOepXKky0byxPb5WnQxOJDeHI M0iKhqOHoga4FnBKJlT88rbPA w c2U6 (more content not included)... Normal [facility] Consent for Procedure/Surger yon 12-04-2022 Consent for Procedure/Surgery [id number]#1.00CD: 127 Normal [facility] Consent for Procedure/Surgery [id number]#1.00CD: 127 [facility] Consent to Photographon Consent to Photograph [id number]#1.00CD: 127 [facility] Correspondence - Woundon Correspondence - Wound [id number]#1.00CD: 127 [facility] Correspondence - Wound [id number]#1.00CD: 127 [facility] Correspondence - Wound [id number]#1.00CD: 127 [facility] HIPAA Forms Officeon 023 HIPAA Forms Office [id number]#1.00CD: 127 [facility] Nursing Assessment - Woundon 12-04-2022 Nursing Assessment - Wound [id number]#1.00CD:1 27 [facility] Physician Orderon 12-04-2022 Physician Order [id number]#1.00CD:1 27 [facility] Procedure - Woundon 12-04-19 Procedure - Wound [id number]#1.00CD:1 27 [facility] Progress Note - Woundon Progress Note - Wound [id number]#1.00CD:1 27 [facility] Consent for Treatmenton Consent for Treatment [id number]#1.00CD:12 7 [facility] Multi-Wound Charton 12-03-19 Multi-Wound Chart [id number]#1.00CD:1 27 [facility] Correspondence - Woundon Correspondence - Wound [id number]#1.00CD:12 7 [facility] Progress Noteson 07-20-2022 [employer] Cust[employer]ian Authentication Interface Message Text EMERGENCY TRIAGE, TREAT AND TRANSPORT (ET3) DOCUMENTATION OF TELEHEALTH VISIT Date / Time: 07/18/2022 / 1430 Name: Yousif Aguilar : 1945 SSN: [id number] EMS Agency: [facility] [] Verbal consent obtained [] Implied consent - patient with potential emergency medical condition requiring assessment of capacity to refuse treatment and/or transport VITAL SIGNS: see flowsheet documentation Reason for Telehealth Visit: Chief Complaint Patient presents with Fall History of Present Ilness: Pt fell at home today. No c/o new pain, no LOC. Denies hitting head. No n/v, no dizziness. No other recent falls. No complaints at this time. Has ambulated since the fall with no new difficulty/pain. Pt is on blood thinners, no other bleeding problems. Additional pertinent PMHx, SocHx, FamHx: Remote cva, HTN Review of Systems: Denies the following: headache, neck pain, back pain, chest pain, difficulty breathing, new weakness, n/v Exam: General: Awake, no distress ENT: normocephalic, atraumatic Pulmonary: No respiratory distress Cardiovascular: Well perfused Neurologic: Oriented to person, place, time and events. Moving all extremities equally. Psychiatric: Appropriate. Good insight and judgement. Medical Decision Making: Fall at home, does not appear to have any injury. Pt awake, alert, and able to ambulate at baseline. Has appropriate support at home. No further questions Disposition Supported by Telehealth Assessment: ET3 transport decisions: Treat in place EMS Disposition Reported: Same ET3 Encounter Completed by: Wilfrid Haley MD Normal [facility] [facility] Coding Summary.on 02-19-2019 Coding Summary. CODING DATE: 019 FINAL [facility] STATUS: Home (Routine DC) PAYOR: Medicare APC DESCRIPTION 5101 Level 1 Strapping and Cast Application 5051 Level 1 Skin Procedures ADMIT DX: REASON FOR VISIT DX: I87.2 Venous insufficiency (chronic) (peripheral) FINAL DX: PRINCIPAL: I87.2 Venous insufficiency (chronic) (peripheral) SECONDARY: L97.812 Non-pressure chronic ulcer of other part of right lower leg with fat layer exposed I89.0 Lymphedema, not elsewhere classified E78.00 Pure hypercholesterolemia, unspecified Z79.01 MCC (current) use of anticoagulants Z86.718 Personal history of other venous thrombosis and embolism PYMT PROC APC STAT DESCRIPTION DOCTOR NAME DATE NOTE: The code number assigned matches the documented diagnosis and / or procedure in the patient's chart. However, the narrative phrase printed from the coding software may appear abbreviated, or result in slightly different terminology. Coded By: Nimisha Oconnell Date Saved: 02/19/2019 01:52 pm Normal [facility] CNOVon 09-03-2017 CNOV Office Visit (VASSFT) DANIAJEF Tima Choi ([id number]) 1945 MDate Time Provider Pcldnelfxv91/4/17 10:00 AM NEO ROCHA During your visit today, we recorded the following information about you: Pulse Blood pressure Weight 73/minute 142/72 142.9 kgNeo Rocha MD 09/03/2017 10:08 AM [facility] Department of Cardiovascular MedicineOUTPATIENT VISIT DATE September 03, 2017OUTPATIENT VISIT TYPEESTABLISHEDPRDAVIS REGIONAL MEDICAL CENTERRY CARE PHYSICIAN:Abbie Gtz III, DO257 PAULO SALGUERO [address] [place] [id number]: [phone]: [phone] PHYSICIANAbbie Gtz III, DO257 Paulo Salguero 1[facility] [id number] COMPLAINT:No chief complaint on file.HISTORY OF PRESENT ILLNESS:Mr Aguilar is a pleasant 71 y/o male who presents for follow up evaluation forhistory of venous ulcerations, s/p EVLT.States the wounds have healed, remain closed. No complaints. Notes had lostsome weight, then regained.Continues with compression.S/p right accessory saphenous EVLT 07/2016 for chronic venous ulcer of theright leg which subsequently healed.Follow up DUS shows the right GSV to be closed. There are varicose veins of theright thigh proximal to distal, upto 5mm.??Has had weight gain ~20- lbs recently.PMH PE and DVT, 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 CT Chest +[id number] DUS LE +Rt femoral and popliteal [id number] DUS LE +Lt popliteal DVTPAST MEDICAL HISTORYDiagnosis Date- Anemia- DVT (deep venous thrombosis) (HCC)- Hyperlipidemia- Lymphedema- Pulmonary embolism (HCC)- TIA (transient ischemic attack)PAST SURGICAL HISTORYProcedure Laterality Date- APPENDECTOMY- REPAIR LOWER JAW FRACTURE- REPAIR WRIST FRACTURE BilateralSOCIAL HISTORYSocial HistorySubstance Use Topics- Smoking status: Former Smoker Packs/day: 1.00 Years: 2.00 Types: Cigarettes- Smokeless tobacco: Not on file- Alcohol use NoNo family history on file.ALLERGIES:ALLERGIESA llergen Reactions- Shellfish Containin* Anaphylaxis- Iodine Anaphylaxis- Penicillins UnknownMEDICATIONS:hydroC HLOROthiazide (HYDRODIURIL, ESIDRIX) 25 mg tablet Take 1 tablet by mouthonce daily.warfarin (COUMADIN) 5 mg tablet Take 5 mg by mouth daily as directed. 5mgSat and Friday. 7.5mg during the rest of the weekatorvastatin (LIPITOR) 20 mg tablet Take 20 mg by mouth once daily.REVIEW OF SYSTEMS:GENERAL: no acute distressAll other ROS: negativeI personally interviewed, confirmed and edited the above information asobtained by others.PHYSICAL EXAMINATION:BP 142/72 (BP Site: Left Arm, BP Position: Sitting, BP Cuff Size: Large Adult) Pulse 73 Wt (!) 142.9 kg (315 lb) SpO2 94% BMI 43.93 kg/u3Qqpwmfr appearance: alert and cooperative individual, in no acute distress.Morbidly obese.Neck: no bruitsPulmonary: Lungs clear to auscultation bilaterally.Coronary: regular rate and regular rhythmAbdomen: obeseLower Extremities: Feet and toes warmchronic venous stasis skin changesPalp bilateral DP pulsesCARDIOVASCULAR MEDICINE TESTING:I have personally reviewed the DUS .IMPRESSION/PLAN:Mr. Aguilar is a 71 year old male with morbid obesity, history of varicoseveins, venous insufficiency s/p EVLT.Continue with compression, skin moisturizer, leg elevation.Neo Rocha, MDReferring Provider: ABBIE GTZ III [[id number]]Allergies As of Date: 09/03/2017 Noted Allergy ReactionSHELLFISH CONTAINING PRODUCTS 03/03/2017 10 - AnaphylaxisIODINE 06/10/2016 10 - AnaphylaxisPENICILLINS 06/10/2016 16 - UnknownDate Reviewed: 09/03/2017Reviewed by: Neo Rocha - Fully AssessedPrimary Visit Diagnosis:Morbid obesity (HCC) [E66.01] Other Visit Diagnosis:Venous stasis dermatitis of both lower extremities [I87.2]Prescriptions as of 09/03/2017 Sig: HYDROCHLOROTHIAZIDE 25 MG TAB* Take 1 tablet by mouth once d* WARFARIN 5 MG TABLET Take 5 mg by mouth daily as d* ATORVASTATIN 20 MG TABLET Take 20 mg by mouth once princess*Problem List As Of Date: 09/03/2017(None)Dispositi on: Return if symptoms worsen or fail to improve.Follow-up and Disposition History RecordedEncounter Number: [id number] Status:Closed by NEO ROCHA MD on 09/03/17 Normal [facility] PROGRESSon 09-03-2017 PROGRESS HNO ID: [id number] thor: Neo RochaSerraysae: (none)Author Type: PhysicianType: Progress NotesFiled: 09/03/2017 10:08 AMNote Text:[facility] Department of Cardiovascular MedicineOUTPATIENT VISIT DATE September 03, 2017OUTPATIENT VISIT TYPEESTABLISHEDPRIMARY CARE PHYSICIAN:Abbie Gtz III, DO[address] [facility] HOSPITALNAIDANY ALDO SALGUERO [address] [place] [id number]: [phone]: [phone] PHYSICIANAbbie Gtz III, DO257 [place] Aldo Salguero [facility] [id number] COMPLAINT:No chief complaint on file.HISTORY OF PRESENT ILLNESS:Mr Aguilar is a pleasant 71 y/o male who presents for follow up evaluationfor history of venous ulcerations, s/p EVLT.States the wounds have healed, remain closed. No complaints. Notes hadlost some weight, then regained.Continues with compression.S/p right accessory saphenous EVLT 07/2016 for chronic venous ulcer of theright leg which subsequently healed.Follow up DUS shows the right GSV to be closed. There are varicose veinsof the right thigh proximal to distal, upto 5mm.??Has had weight gain ~20- lbs recently.PMH PE and DVT, 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 CT Chest +[id number] DUS LE +Rt femoral and popliteal [id number] DUS LE +Lt popliteal DVTPAST MEDICAL HISTORYDiagnosis Date- Anemia- DVT (deep venous thrombosis) (HCC)- Hyperlipidemia- Lymphedema- Pulmonary embolism (HCC)- TIA (transient ischemic attack)PAST SURGICAL HISTORYProcedure Laterality Date- APPENDECTOMY- REPAIR LOWER JAW FRACTURE- REPAIR WRIST FRACTURE BilateralSOCIAL HISTORYSocial HistorySubstance Use Topics- Smoking status: Former Smoker Packs/day: 1.00 Years: 2.00 Types: Cigarettes- Smokeless tobacco: Not on file- Alcohol use NoNo family history on file.ALLERGIES:ALLERGIESA llergen Reactions- Shellfish Containin* Anaphylaxis- Iodine Anaphylaxis- Penicillins UnknownMEDICATIONS:hydroC HLOROthiazide (HYDRODIURIL, ESIDRIX) 25 mg tablet Take 1 tablet bymouth once daily.warfarin (COUMADIN) 5 mg tablet Take 5 mg by mouth daily as directed. 5mgSat and Friday. 7.5mg during the rest of the weekatorvastatin (LIPITOR) 20 mg tablet Take 20 mg by mouth once daily.REVIEW OF SYSTEMS:GENERAL: no acute distressAll other ROS: negativeI personally interviewed, confirmed and edited the above information asobtained by others.PHYSICAL EXAMINATION:BP 142/72 (BP Site: Left Arm, BP Position: Sitting, BP Cuff Size: LargeAdult) Pulse 73 Wt (!) 142.9 kg (315 lb) SpO2 94% BMI 43.93 kg/d1Isxkukp appearance: alert and cooperative individual, in no acutedistress. Morbidly obese.Neck: no bruitsPulmonary: Lungs clear to auscultation bilaterally.Coronary: regular rate and regular rhythmAbdomen: obeseLower Extremities: Feet and toes warmchronic venous stasis skin changesPalp bilateral DP pulsesCARDIOVASCULAR MEDICINE TESTING:I have personally reviewed the DUS .IMPRESSION/PLAN:Mr. Aguilar is a 71 year old male with morbid obesity, history of varicoseveins, venous insufficiency s/p EVLT.Continue with compression, skin moisturizer, leg elevation.Neo Rocha MD Normal [facility] Vital Signs Date Time Vital Sign Value Performing Clinician Facility 10-28-2023 17:16-0500 Heart rate 69 /min Theresa Villalpando [facility] 10-28-2023 17:16-0500 SaO2% (BldA) [Mass fraction] 92 % Theresa Pocos [facility] 10-28-2023 17:16-0500 Diastolic blood pressure 77 mm[Hg] Theresa Pocos [facility] 10-28-2023 17:16-0500 Mean blood pressure 100 mm[Hg] Theresa Pocos [facility] 10-28-2023 17:16-0500 Systolic blood pressure 145 mm[Hg] Theresa Pocos [facility] 10-28-2023 17:16-0500 Respiratory rate 16 /min Theresa Pocos [facility] 10-28-2023 16:09-0500 Heart rate 59 /min Theresa Pocos [facility] 10-28-2023 16:09-0500 SaO2% (BldA) [Mass fraction] 95 % Theresa Pocos [facility] 10-28-2023 16:09-0500 Diastolic blood pressure 82 mm[Hg] Theresa Pocos [facility] 10-28-2023 16:09-0500 Mean blood pressure 95 mm[Hg] Theresa Pocos [facility] 10-28-2023 16:09-0500 Systolic blood pressure 121 mm[Hg] Theresa Pocos [facility] 10-28-2023 16:08-0500 Respiratory rate 16 /min Theresa Pocos [facility] 10-28-2023 15:58-0500 Blood Pressure Location Theresa Pocos [facility] 10-28-2023 15:58-0500 Body temperature 96.98 [degF] Theresa Pocos [facility] 10-28-2023 15:58-0500 Diastolic blood pressure 68 mm[Hg] Theresa Pocos [facility] 10-28-2023 15:58-0500 Heart rate 64 /min Theresa Pocos [facility] 10-28-2023 15:58-0500 Mean blood pressure 88 mm[Hg] Theresa Pocos [facility] 10-28-2023 15:58-0500 Respiratory rate 18 /min Theresa Pocos [facility] 10-28-2023 15:58-0500 SaO2% (BldA) [Mass fraction] 96 % Theresa Pocos [facility] 10-28-2023 15:58-0500 Systolic blood pressure 127 mm[Hg] Theresa Pocos [facility] 10-28-2023 15:46-0500 Blood Pressure Location Theresa Pocos [facility] 10-28-2023 15:46-0500 Mean blood pressure 86 mm[Hg] Theresa Pocos [facility] 10-28-2023 15:46-0500 Respiratory rate 14 /min Theresa Pocos [facility] 10-28-2023 15:41-0500 Blood Pressure Location Theresa Pocos [facility] 10-28-2023 15:41-0500 Mean blood pressure 95 mm[Hg] Theresa Pocos [facility] 10-28-2023 15:41-0500 Respiratory rate 18 /min Theresa Pocos [facility] 10-28-2023 15:31-0500 Body temperature 96.98 [degF] Theresa Pocos [facility] 10-28-2023 11:04-0500 Heart rate 80 /min Theresa Pocos [facility] 10-28-2023 11:02-0500 Respiratory rate 20 /min Theresa Pocos [facility] 10-28-2023 11:02-0500 Body temperature 97.7 [degF] Theresa Pocos [facility] 10-28-2023 11:02-0500 Mean blood pressure 104 mm[Hg] Theresa Pocos [facility] 10-22-2023 12:34-0500 Heart rate 80 /min Theresa Pocos [facility] 10-22-2023 12:34-0500 SaO2% (BldA) [Mass fraction] 94 % Theresa Pocos [facility] 10-22-2023 12:34-0500 Diastolic blood pressure 65 mm[Hg] Theresa Pocos [facility] 10-22-2023 12:34-0500 Mean blood pressure 86 mm[Hg] Theresa Pocos [facility] 10-22-2023 12:34-0500 Systolic blood pressure 130 mm[Hg] Theresa Pocos [facility] 10-22-2023 12:34-0500 Body temperature 97.7 [degF] Theresa Pocos [facility] 10-22-2023 12:34-0500 Respiratory rate 18 /min Theresa Pocos [facility] 10-17-2023 22:14-0500 Diastolic blood pressure 94 mm[Hg] Kaylinn Dokken [facility] 10-17-2023 22:14-0500 Heart rate 82 /min Kaylinn Dokken [facility] 10-17-2023 22:14-0500 Mean blood pressure 121 mm[Hg] Kaylinn Dokken [facility] 10-17-2023 22:14-0500 Respiratory rate 18 /min Kaylinn Dokken [facility] 10-17-2023 22:14-0500 SaO2% (BldA) [Mass fraction] 96 % Kaylinn Dokken [facility] 10-17-2023 22:14-0500 Systolic blood pressure 174 mm[Hg] Kaylinn Dokken [facility] 10-17-2023 21:29-0500 Body temperature 97.7 [degF] Kaylinn Dokken [facility] 10-17-2023 21:29-0500 Diastolic blood pressure 75 mm[Hg] Kaylinn Dokken [facility] 10-17-2023 21:29-0500 Heart rate 80 /min Kaylinn Dokken [facility] 10-17-2023 21:29-0500 Respiratory rate 18 /min Kaylinn Dokken [facility] 10-17-2023 21:29-0500 SaO2% (BldA) [Mass fraction] 98 % Kaylinn Dokken [facility] 10-17-2023 21:29-0500 Systolic blood pressure 162 mm[Hg] Kaylinn Dokken [facility] 10-17-2023 21:14-0500 Body temperature 97.7 [degF] Kaylinn Dokken [facility] 10-17-2023 21:14-0500 Diastolic blood pressure 78 mm[Hg] Bryce Funk [facility] 10-17-2023 21:14-0500 Heart rate 83 /min Bryce Funk [facility] 10-17-2023 21:14-0500 Respiratory rate 18 /min Bryce Funk [facility] 10-17-2023 21:14-0500 SaO2% (BldA) [Mass fraction] 99 % Chantelchapis Funk [facility] 10-17-2023 21:14-0500 Systolic blood pressure 158 mm[Hg] moshe Escalanteen [facility] 02-17-2023 11:00-0400 Body height 177.8 cm Perlita Reno Other [facility] [employer] Other 02-17-2023 11:00-0400 Body mass index (BMI) [Ratio] 38.31 kg/m2 Perlita Reno Other [employer] Other 02-17-2023 11:00-0400 Body temperature 97.8 [degF] Perlita Reno Other [employer] Other 02-17-2023 11:00-0400 Body weight 121.11 kg Perlita Reno Other [employer] Other 02-17-2023 11:00-0400 Diastolic blood pressure 787 mm[Hg] Perlita Reno Other [employer] Other 02-17-2023 11:00-0400 SaO2% (BldA) [Mass fraction] 97 % Perlita Reno Other [facility] [employer] Other 02-17-2023 11:00-0400 Systolic blood pressure 130 mm[Hg] Perlita Reno Other [facility] [employer] Other 07-18-2022 14:30-0400 Diastolic blood pressure 65 mm[Hg] Et3 [facility] 07-18-2022 14:30-0400 Heart rate 83 /min Et3 [facility] 07-18-2022 14:30-0400 Respiratory rate 18 /min [facility] 07-18-2022 14:30-0400 Systolic blood pressure 117 mm[Hg] Et[facility] 07-05-2022 13:39-0400 Diastolic blood pressure 67 mm[Hg] [facility] 07-05-2022 13:39-0400 Heart rate 71 /min [facility] 07-05-2022 13:39-0400 Mean blood pressure 88 mm[Hg] [facility] 07-05-2022 13:39-0400 Respiratory rate 18 /min [facility] 07-05-2022 13:39-0400 SaO2% (BldA) [Mass fraction] 99 % [facility] 07-05-2022 13:39-0400 Systolic blood pressure 130 mm[Hg] [facility] 07-05-2022 13:00-0400 Diastolic blood pressure 66 mm[Hg] [facility] 07-05-2022 13:00-0400 Heart rate 69 /min [facility] 07-05-2022 13:00-0400 Mean blood pressure 89 mm[Hg] [facility] 07-05-2022 13:00-0400 SaO2% (BldA) [Mass fraction] 97 % [facility] 07-05-2022 13:00-0400 Systolic blood pressure 135 mm[Hg] [facility] 07-05-2022 12:30-0400 Diastolic blood pressure 63 mm[Hg] [facility] 07-05-2022 12:30-0400 Heart rate 72 /min [facility] 07-05-2022 12:30-0400 Mean blood pressure 84 mm[Hg] [facility] 07-05-2022 12:30-0400 Respiratory rate 18 /min [facility] 07-05-2022 12:30-0400 SaO2% (BldA) [Mass fraction] 93 % [facility] 07-05-2022 12:30-0400 Systolic blood pressure 126 mm[Hg] [facility] 07-05-2022 12:05-0400 Heart rate 76 /min [facility] 07-05-2022 11:50-0400 Body temperature 98.24 [degF] [facility] 07-05-2022 11:50-0400 Heart rate 81 /min [facility] 03-21-2022 08:18-0400 Blood Pressure Location Mitali Carine [facility] 03-21-2022 08:18-0400 Body temperature 97.34 [degF] Mitali Hawk [facility] 03-21-2022 08:18-0400 Diastolic blood pressure 74 mm[Hg] Mitali Hawk [facility] 03-21-2022 08:18-0400 Heart rate 78 /min Mitali Hawk [facility] 03-21-2022 08:18-0400 SaO2% (BldA) [Mass fraction] 96 % Mitali Carine [facility] 03-21-2022 08:18-0400 Systolic blood pressure 122 mm[Hg] Mitali Hawk [facility] Encounters Encounter Date Encounter Type Care Provider Facility Start: 12-22-2023 End: 12-22-2023 ambulatory ADDI POCOS Not Available Start: 11-28-2023 End: 11-28-2023 ambulatory ADDI POCOS Not Available Start: 11-10-2023 End: 11-10-2023 ambulatory ADDI POCOS Not Available Start: 10-28-2023 End: 10-28-2023 ambulatory Addi Pocos Facility[facility] Start: 10-28-2023 End: 10-28-2023 Admission to same day surgery [place] Addi Pocos [facility] Start: 10-27-2023 End: 10-28-2023 ambulatory Abbie Gtz Facility:[facility] Start: 10-27-2023 End: 10-27-2023 Patient encounter procedure Abbie Gtz III [facility] Start: 10-22-2023 End: 10-23-2023 ambulatory Addi Pocos Facility:[facility] Start: 10-22-2023 End: 10-22-2023 Patient encounter procedure Addi Pocos [facility] Start: 10-20-2023 End: 10-20-2023 ambulatory ADDI POCOS Not Available Start: 10-17-2023 End: 10-18-2023 Emergency department patient visit Bryce Funk Facility:[facility] Start: 10-17-2023 End: 10-17-2023 Emergency department patient visit Bryce Funk [facility] Start: 08-05-2023 End: 08-06-2023 ambulatory Facundo D Dolce Facility:[facility] Start: 07-29-2023 End: 07-30-2023 ambulatory Facundo D Dolce Facility:[facility] Start: 07-29-2023 End: 07-29-2023 Patient encounter procedure Facundo Hoffman [facility] Start: 07-22-2023 End: 07-23-2023 ambulatory Facundo D Dolce Facility:[facility] Start: 07-14-2023 End: 07-15-2023 ambulatory Facundo D Dolce Facility:[facility] Start: 07-14-2023 End: 07-15-2023 Patient encounter procedure Facundo Tima Hoffman [facility] Start: 07-08-2023 End: 07-09-2023 ambulatory Facundo D Dolce Facility:[facility] Start: 07-08-2023 End: 07-08-2023 Patient encounter procedure Facundo D Qian [facility] Start: 06-30-2023 End: 07-01-2023 ambulatory Facundo D Dolce Facility:[facility] Start: 06-30-2023 End: 06-30-2023 Patient encounter procedure Facundo Tima Hoffman [facility] Start: 06-24-2023 End: 06-25-2023 ambulatory Facundo D Dolce Facility:[facility] Start: 06-17-2023 End: 06-18-2023 ambulatory Facundo D Dolce Facility:[facility] Start: 06-17-2023 End: 06-17-2023 Patient encounter procedure Facundo D Qian [facility] Start: 06-10-2023 End: 06-11-2023 ambulatory Stephen R Bhartice Facility:[facility] Start: 06-10-2023 End: 06-10-2023 Patient encounter procedure Stephen R Bhartijames [facility] Start: 06-02-2023 End: 06-03-2023 ambulatory Facundo Hoffman Facility:[facility] Start: 06-02-2023 End: 06-03-2023 Pre-admission assessment Facundo Hoffman [facility] Start: 05-27-2023 End: 05-28-2023 ambulatory Stephen R Bhartice Facility:[facility] Start: 05-27-2023 End: 05-27-2023 Patient encounter procedure Stephen R Bhartijaems [facility] Start: 05-20-2023 End: 05-21-2023 ambulatory Facundo Hoffman Facility:[facility] Start: 05-20-2023 End: 05-20-2023 Patient encounter procedure Facundo Hoffman [facility] Start: 05-15-2023 End: 05-16-2023 ambulatory Facundo Hoffman Facility:[facility] Start: 05-15-2023 End: 05-15-2023 Patient encounter procedure Facundo Hoffman [facility] Start: 05-06-2023 End: 05-07-2023 ambulatory Facundo Hoffman Facility:[facility] Start: 05-06-2023 End: 05-06-2023 Patient encounter procedure Facundo Hoffman [facility] Start: 04-23-[address] FACUNDO HOFFMAN Facility: Start: 04-22-2023 End: 04-23-2023 ambulatory Facundo Hoffman Facility:[facility] Start: 04-15-2023 End: 04-16-2023 ambulatory Facundo Hoffman Facility:[facility] Start: 04-08-2023 End: 04-09-2023 ambulatory Facundo Hoffman Facility:[facility] Start: 04-08-2023 End: 04-08-2023 Patient encounter procedure Facundo Hoffman [facility] Start: 04-02-2023 End: 04-03-2023 ambulatory Stephen R Dolce Facility:[facility] Start: 04-02-2023 End: 04-02-2023 Patient encounter procedure Stephen Hoffman [facility] Start: 03-25-2023 End: 03-26-2023 ambulatory Facundo Alfred Doljames Facility:[facility] Start: 03-17-2023 End: 03-19-2023 ambulatory Facundo Alfred Dolce Facility:[facility] Start: 03-11-2023 End: 03-12-2023 ambulatory Facundo Hayce Facility:[facility] Start: 03-11-2023 End: 03-11-2023 Patient encounter procedure Facundo Hoffman [facility] Start: 03-04-2023 End: 03-05-2023 ambulatory Facundo Hayjames Facility:[facility] Start: 03-04-2023 End: 03-04-2023 Patient encounter procedure Facundo Hoffman [facility] Start: 02-27-2023 End: 02-27-2023 ambulatory Perlita Ramesho Facility:[facility] Start: 02-27-2023 End: 02-27-2023 ambulatory DO Abbie R Gtz III Work Phone: [facility] Work Phone: Start: 02-27-2023 End: 02-27-2023 Patient encounter procedure DO Abbie Gtz III Work Phone: [facility] [place] Work Phone: Start: 02-24-2023 End: 02-25-2023 ambulatory Facundo Hayjames Facility:[facility] Start: 02-24-2023 End: 02-24-2023 Patient encounter procedure Facundo Hoffman [facility] Start: 02-18-2023 End: 02-19-2023 ambulatory Facundo Hayjames Facility:[facility] Start: 02-18-2023 End: 02-18-2023 Patient encounter procedure Facundo Hoffman [facility] Start: 02-17-2023 End: 02-17-2023 ambulatory Perlita Reno Other [facility] [employer] Other Start: 02-17-2023 PENDING SALE TO [facility] visit new patient Perlita Ramesh nasir [facility] Vascular Surgery Start: 02-11-2023 End: 02-12-2023 ambulatory Facundo D Dolce [place] Start: 02-04-2023 End: 02-05-2023 ambulatory Facundo D Dolce Facility[place] Start: 02-04-2023 End: 02-04-2023 Patient encounter procedure Facundo Hoffman [facility] Start: 01-28-2023 End: 01-29-2023 ambulatory Facundo D Dolce Facility:[facility] Start: 01-28-2023 End: 01-29-2023 ambulatory Facundo D Dolce Facility:[facility] Start: 01-28-2023 End: 01-28-2023 Patient encounter procedure Facundo Hoffman [facility] Start: 01-21-2023 End: 01-22-2023 ambulatory Facundo D Dolce Facility:[facility] Start: 01-21-2023 End: 01-21-2023 Patient encounter procedure Facundo Hoffman [facility] Start: 01-15-2023 End: 01-22-2023 Pre-admission assessment Facundo Hoffman [facility] Start: 01-14-2023 End: 01-15-2023 ambulatory Facundo D Dolce Facility:[facility] Start: 01-14-2023 End: 01-14-2023 Patient encounter procedure Facundo Hayjames [facility] Start: 01-07-2023 End: 01-08-2023 ambulatory Facundo D Dolce Facility:[facility] Start: 01-07-2023 End: 01-07-2023 Patient encounter procedure Facundo Hayjames [facility] Start: 12-31-2022 End: 01-01-2023 ambulatory Facundo D Dolce Facility:[facility] Start: 12-31-2022 End: 12-31-2022 Patient encounter procedure Facundo Hoffman [facility] Start: 12-27-2022 End: 12-28-2022 ambulatory Facundo Hoffman Facility[facility] Start: 12-27-2022 End: 12-27-2022 Patient encounter procedure Facundo Hoffman [facility] Start: 12-24-2022 End: 12-25-2022 ambulatory Facundo Hoffman Facility[facility] Start: 12-24-2022 End: 12-24-2022 Patient encounter procedure Facundo Hoffman [facility] Start: 12-17-2022 End: 12-18-2022 ambulatory Facundo Hoffman Facility[facility] Start: 12-10-2022 End: 12-11-2022 ambulatory Facundo Hoffman Facility[facility] Start: 12-10-2022 End: 12-10-2022 Patient encounter procedure Facundo Hoffman [facility] Start: 12-03-2022 End: 12-04-2022 ambulatory Facundo Hoffman Facility[facility] Start: 12-03-2022 End: 12-03-2022 Patient encounter procedure Facundo Hoffman [facility] Start: 10-23-2022 End: 10-31-2022 ambulatory UNKNOWN PROVIDER Facility:[facility] Start: 07-20-2022 End: 07-22-2022 ambulatory UNKNOWN PROVIDER Facility:[facility] Start: 07-18-2022 End: 07-18-2022 [facility] Start: 07-18-2022 End: 07-18-2022 Emergency department patient visit [facility] Emergency Triage, Treat and Transport Comment on above: Arrived Start: 07-05-2022 End: 07-05-2022 Emergency department patient visit Itz Lauren [facility] Start: 03-21-2022 End: 03-21-2022 Patient encounter procedure Mitali Hawk [facility] Start: 02-23-2019 Patient encounter procedure Zakia Buck Facility:[facility] Start: 01-01-2019 End: 01-02-2019 Patient encounter procedure Stephen Hoffman Facility:[facility] Start: 09-03-2017 End: 09-04-2017 Ambulatory NEO ROCHA [facility] Procedures Date Procedure Procedure Detail Performing Clinician Start: 10-28-2023 Open reduction of fr acture with internal fixation Theresa Villalpando Start: 02-27-2023 Duplex scan of lower limb veins DO Abbie Gtz III Work Phone: Start: 03-04-2022 Colonoscopy [facility] Start: 03-04-2022 Colonoscopy Mitali singletary Start: 07-01-2016 EVLT RASV X 2 1 Mitali Cadet einmetz Comment on above: DR. ROCHA Start: 12-01-2006 VEIN PROCEDURE MITCH 2 Be th Carine Comment on above: DR. SALVADOR DID SOME TYPE OF VEIN PROCEDURE PER PATIENT Plan of Treatment Date Care Activity Detail Author Start: 03-04-2032 Screening for malign ant neoplasm of colon [facility] Start: 08-31-2022 Influenza vaccination Influenza Vacc ine (#1) [facility] Start: 01-01-2022 Annual wellness visit Annual W ellness Visit ([id number]) [facility] Start: 06-07-2021 COVID-19 Vaccine (3 - Booster for Moderna series) COVID-19 Vaccine (3 - Booster for Moderna series) [facility] Start: 03-30-2021 Shingles (RZV) Vacci ne (2 of 2) Shingles (RZV) Vaccine (2 of 2) [facility] Start: 03-28-2017 Pneumococcal vaccination Pneum ococcal Vaccine(s) (65+ yrs) (2 - PPSV23 or PCV20) [facility] Start: 1997 Measurement of occul t blood in single stool specimen [facility] Start: 1982 [facility] Start: 1965 Hepatitis C screening Hepatitis C An tibody [facility] Start: 1965 Tetanus + diphtheria + acellular pertussis vaccine (product) Tdap Booster [facility] Immunizations Immunization Date Immunization Notes Care Provider Hanny macias 08-31-2021 influenza virus vaccine, unspecified formulation Mitali Menendezmetz [facility] 02-02-2021 zoster vaccine recombinant [facility] 09-05-2020 influenza, high dose seasonal, preservative-free [facility] 09-05-2020 influenza virus vaccine, unspecified formulation [facility] 10-15-2019 influenza, high dose seasonal, preservative-free [facility] 09-10-2018 influenza, injectabl e, quadrivalent, preservative free [facility] 09-29-2017 influenza, injectabl e, quadrivalent, preservative free [facility] 09-25-2016 influenza, injectabl e, quadrivalent, preservative free [facility] 03-28-2016 pneumococcal conjuga te vaccine, 13 valent [facility] 09-21-2015 influenza, seasonal, injectable [facility] 12-27-2013 pneumococcal conjuga te vaccine, 13 valent [facility] Payers Date Payer Category Payer Self-pay 2022 Medicaid [id number] 2021 Unknown [id number] 2021 Unknown 2021 Medicare HU[employer]NA MEDICARE HUMANA CHOICE PPO/HMO [id number] 2021-Present [employer] CLAIMS OFFICE [address] [address] [place] [address] PPO [id number] 2018 Unknown [id number] 1947 Unknown [id number] .16.840.1.205576.3.579.2.727 1947 Unknown [id number] 2.16.840.1.141953.3.579.2.72 1947 Unknown [id number] 2.16.840.1.553891.3.579.2.732 1947 Unknown [id number] 2.16.840.1.424590.3.579.2.73 1947 Unknown [id number] 2.16.840.1.758561.3.579.2.593 1947 Unknown [id number] 2.16.840.1.148068.3.579.2. 1947 Unknown [id number] 2.16.840.1.061017.3.579.2 1947 Unknown [id number] 2.16.840.1.744154.3.579.2 1947 Unknown [id number] 2.16.840.1.000173.3.579.272 1947 Unknown [id number] 2.16.840.1.339213.3.579.2 1947 Unknown [id number] 2.16.840.1.706144.3.579.272 1947 Unknown [id number] 2.16.840.1.535802.3.579.2 1947 Unknown [id number] 2.16.840.1.958792.3.579.2.72 1947 Unknown [id number] 2.16.840.1.698913.3.579.2 1947 Unknown [id number] 2.16.840.1.182533.3.579.272 1947 Unknown [id number] 2.16.840.1.185153.3.579.2 1947 Unknown [id number] 2.16.840.1.451475.3.579.2. 1947 Unknown [id number] 2.16.840.1.489187.3.579.2 1947 Unknown [id number] 2.16.840.1.756919.3.579.2 1947 Unknown [id number] 2.16.840.1.721553.3.579.2 1947 Unknown [id number] 2.16.840.1.218510.3.579.2 1947 Unknown [id number] 2.16.840.1.283231.3.579.2 1947 Unknown [id number] 2.16.840.1.576127.3.579.2 1947 Unknown [id number] 2.16.840.1.965578.3.579.2 1947 Unknown [id number] 2.16.840.1.927829.3.579.2 1947 Unknown [id number] 2.16.840.1.919950.3.579.2 1947 Unknown [id number] 2.16.840.1.887013.3.579.2 1947 Unknown [id number] 2.16.840.1.769304.3.579.2 1947 Unknown [id number] 2.16.840.1.116517.3.579.2 1947 Unknown [id number] 2.16.840.1.422446.3.579.2 1947 Unknown [id number] 2.16.840.1.453949.3.579.2 1947 Unknown [id number] 2.16.840.1.178628.3.579.2. 1947 Unknown [id number] 2.16.840.1.591739.3.579.2 1947 Unknown [id number] 2.16.840.1.180323.3.579.2 1947 Unknown [id number] 2.16.840.1.180673.3.579.2 1947 Unknown [id number] 2.16.840.1.321103.3.579.2 1947 Unknown [id number] 2.16.840.1.985242.3.579. 1947 Unknown [id number] 2.16.840.1.550917.3.579.2 1947 Unknown [id number] 2.16.840.1.369433.3.579.2 1947 Unknown [id number] 2.16.840.1.433704.3.579.2 1947 Unknown [id number] 2.16.840.1.624129.3.579.2 1947 Unknown [id number] 2.16.840.1.015377.3.579.2 1947 Unknown [id number] 2.16.840.1.958186.3.579.2 1947 Unknown [id number] 2.16.840.1.128959.3.579.2 1947 Unknown [id number] 2.16.840.1.008206.3.579.2 1947 Unknown [id number] 2.16.840.1.983938.3.579.2 1947 Unknown [id number] 2.16.840.1.831984.3.579.2.1259 1947 Unknown [id number] 2.16.840.1.564017.3.579.2.1259 1947 Unknown [id number] 2.16.840.1.201654.3.579.2.1259 1947 Unknown [id number] 2.16.840.1.238390.3.579.2.1259 1947 Unknown [id number] 2.16.840.1.746399.3.579.2.1259 1947 Unknown [id number] 2.16.840.1.723782.3.579.2.1259 1947 Unknown [id number] 2.16.840.1.187488.3.579.2.1259 Unknown Stacey NOLEN/SARAH [id number] Unknown [id number] 2.16.840.1.330763.3.579.2.531 Social History Date Type Detail Facility Start: 03-21-2022 Tobacco smoking status Ex-smoker (finding) [facility] Tobacco smoking status Never [facility] Sex Assigned At Male [facility] Tobacco smoking status COIS Tobacco smoking consumption unknown [facility] Start: 1945 Sex Assigned At Not on file [facility] Start: 1945 Sex Assigned At Male F [facility] Medical Equipment Procedure Code Equipment Code Equipment Origin al Text Equipment Identifier Dates ELBOW FRACTURE O RIF [facility] DOTheresa A 10/28/23 Unknown Elbow R FDA Start: 10-28-2023 ELBOW FRACTURE O RIF [facility] DOTheresa 10/28/23 Unknown Elbow R FDA Start: 10-28-2023 Functional Status Date Assessment Result Facility 10-22-2023 Functional Status No [facility] 10-17-2023 Functional Status N/A [facility] 07-05-2022 Functional Status N/A [facility] Clinical Notes 03-21-2022 to 10-28-2023 Note Date & Type Note Facility 10-28-2023 Hospital Discharg e instructions Patient Education 10/28/2023 16:52:15 Post Op Patient Instructions - FT (Custom) (CUSTOM) 10/27/2023 07:36:07 [facility] - Home Care Instructions (Custom) [place], [place] [facility] OUTPATIENT SURGERY Home Care Instructions Medications You will be given a prescription for pain medication. Please notify the office immediately if you have any allergies to pain medications. About Your Surgical Site Do not remove your bandages or splint. Do not get the incision wet until suture removal. Use brace/splint at all times. Activity You may gradually progress your activities as comfortably tolerated. Continue to ice and elevate your surgical site for the next 48 hours and continue restricted use. Remain off work until your first office visit. Diet You may resume your regular diet as tolerated. Please remember to take your pain medication with food to avoid stomach upset. Increased liquid intake is encouraged for 48 hours after discharged home. Anesthesia Precautions Do not operate a vehicle (automobile, bicycle, motorcycle), machinery or power tools, or drink alcohol beverages for 24 hours. Do not drink any alcohol beverages while you are taking your pain medication. Arrange for a responsible adult to remain with you for at least 24 hours, possibly longer. You may be drowsy and light-headed from the anesthesia and possibly from your pain medication as well. Expectations of Surgery You may have mild to moderate discomfort for the first several days. This should gradually decrease. Any increased discomfort should be reported to the office. Call the office with any of the following: any persistent or heavy bleeding, temperature above 101.5 degrees, increasing redness, swelling or drainage at the operative site, severe and increasing pain at the operative site, persistent vomiting. About your follow-up office visit You will be given a card with your post-operative date and time for this appointment. Report any problems prior to that time. Driving: Do not drive. Theresa Villalpando, DO [facility] [address] [place] [address] [phone] Reviewed: 03-08 Follow Up Care 10/20/2023 14:32:22 With:Theresa Villalpando Address: [address] [place] [phone] Business (1) When:11/10/2023 14:30:00 Comments:Appointment has already been scheduled [facility] 10-27-2023 Note [id number]#1.00TIFF [facility] 10-18-2023 Hospital Discharg e instructions Patient Education 10/17/2023 23:42:46 Olecranon Fracture Olecranon Fracture An olecranon fracture is a break in one of the bones of your elbow. Three bones make up your elbow. These include the two bones of your lower arm (ulna and radius) and the single bone of your upper arm (humerus). The tip of your elbow (olecranon) is part of your ulna. You can feel this hard tip when you bend your elbow. It is easily injured because it has very little padding over it. What are the causes? Olecranon fractures commonly occur after falling on a hard surface with a bent elbow. Other causes include: A forceful hit to the elbow. A motor vehicle collision. Falling onto an outstretched arm. A forceful twist to the elbow. What increases the risk? You are more likely to develop this condition if you: Participate in contact sports or sports in which falls on hard surfaces are common. Are older. This is when falls are more common. Have thin or weak bones. What are the signs or symptoms? Symptoms of this condition include: Severe pain, especially when you try to move your elbow. Swelling. Bruising. Stiffness. Pain or tenderness in your elbow when it is touched. Numbness in your fingers. How is this diagnosed? This condition is diagnosed based on a physical exam and X-rays. How is this treated? Treatment depends on the severity and location of the fracture. Many fractures can be treated without surgery. Treatment may include: Taking pain medicine. Icing the injury to reduce swelling. Keeping the elbow still with a cast, splint, or sling (immobilization). Doing physical therapy to restore movement. If the elbow is not stable or if bones are out of place, you may need surgery. You may have pins, wires, screws, or plates inserted into the broken bone. Then, you will need to wear a splint, cast, or sling and have physical therapy to restore movement. Follow these instructions at home: Medicines Take jgad-aia-arbutiy and prescription medicines only as told by your health care provider. Ask your health care provider if the medicine prescribed to you: ?Requires you to avoid driving or using heavy machinery. ?Can cause constipation. You may need to take actions to prevent or treat constipation, such as: ?Drink enough fluid to keep your urine pale yellow. ?Take meex-xum-xikwagd or prescription medicines. ?Eat foods that are high in fiber, such as beans, whole grains, and fresh fruits and vegetables. ?Limit foods that are high in fat and processed sugars, such as fried or sweet foods. If you have a splint or sling: Wear the splint or sling as told by your health care provider. Remove it only as told by your health care provider. Loosen the splint or sling if your fingers tingle, become numb, or turn cold and blue. Keep the splint or sling clean and dry. If you have a cast: Do not put pressure on any part of the cast until it is fully hardened. This may take several hours. Do not stick anything inside the cast to scratch your skin. Doing that increases your risk of infection. Check the skin around the cast every day. Tell your health care provider about any concerns. You may put lotion on dry skin around the edges of the cast. Do not put lotion on the skin underneath the cast. Keep the cast clean and dry. Bathing Do not take baths, swim, or use a hot tub until your health care provider approves. Ask your health care provider if you may take showers. You may only be allowed to take sponge baths. If the cast, splint, or sling is not waterproof: ?Do not let it get wet. ?Cover it with a waterproof covering when you take a bath or shower. Managing pain, stiffness, and swelling If directed, put ice on the injured area. ?If you have a removable splint or sling, remove it as told by your health care provider. ?Put ice in a plastic bag. ?Place a towel between your skin and the bag or between your cast and the bag. ?Leave the ice on for 20 minutes, 2 3 times a day. Move your fingers often to reduce stiffness and swelling. Raise (elevate) the injured area above the level of your heart while you are sitting or lying down. Activity Return to your normal activities as told by your health care provider. Ask your health care provider what activities are safe for you. You may not be able to lift anything with your arm for several weeks. Do exercises as told by your health care provider or physical therapist. General instructions Do not use any products that contain nicotine or tobacco, such as cigarettes, e-cigarettes, and chewing tobacco. These can delay bone healing. If you need help quitting, ask your health care provider. Ask your health care provider when it is safe to drive if you have a cast, splint, or sling on your arm. Keep all follow-up visits as told by your health care provider. This is important. Contact a health care provider if: You have pain that gets worse. Your hand and fingers swell. Your cast or splint becomes loose or damaged. Get help right away if: You lose feeling in your hand or fingers. Your hand or fingers get cold or turn pale or blue. Summary An olecranon fracture is a break in one of the bones of your elbow. Olecranon fractures commonly occur after falling on a hard surface with a bent elbow. Treatment depends on the severity and location of the fracture. It is treated with ice, pain medicine, keeping the elbow still (immobilization), physical therapy, and surgery if needed. This information is not intended to replace advice given to you by your health care provider. Make sure you discuss any questions you have with your health care provider. Document Revised: 02/14/2022 Document Reviewed: 02/14/2022 [employer] Patient Education 2022 [employer] Follow Up Care 10/17/2023 21:14:35 With:Theresa Villalpando Address: [address] [place], [place] [phone] Business (1) When:10/20/2023 Comments:You can use the pain medication every 6 hours as needed for pain. Please follow-up with your primary care doctor addition to orthopedics for further evaluation management. Please return to the ED for any new or worsening symptoms. With:Abbie Gtz Address: [address] [place] [address] [place] [phone]- Business (1) When:Within 3 Day(s) [facility] 10-17-2023 Evaluation + Plan note Extrac krystal from: Title:ED Note Author:Bryce Funk DO Date :10/17/23 Olecranon fracture (S52.023A : Displaced fracture of olecranon process without intraarticular extension of unspecified ulna, initial encounter for closed fracture) Orders: acetaminophen-hydrocodone, 1 tab(s), Oral, q6hr for pain for 3 day(s), 10 tab(s), Refill(s) 0, [facility] 1985, 177.8, cm, 10/17/23 21:21:00 EST, Height/Length Dosing, 133.1, kg, 10/17/23 21:21:00 EST, Weight Dosing Sling Apply XR Elbow 3+ Views Right [facility]03-20-2023 Evaluation note* Encounter Date Diagnosis Assessment Notes Treatment Notes Treatment Clinical Notes Jan, Venous insufficiency of both lower extremities (ICD-10 - I87.2) This patient has evidence of chronic venous insufficiency with hemosiderin deposition in the gaiter distribution bilaterally. He has had a recent skin graft to an ulceration on the right lower extremity with Dr. Hoffman who continues to care for this. The Xeroform dressing that was stuck to the wound and he did have louise in place, I did not remove the Xeroform and total as he is to see Dr. Hoffman tomorrow for care and monitoring of his recent skin graft. He tells me he has had previous vein treatment in 2005 but does not remember exactly what they did. We will start by obtaining a full functional venous duplex to eval for any venous valvular incompetence and go from there. We will have him back to discuss those results as well as any treatment recommendations based on those studies. He should continue with compression, elevation, good skin care moisturizer therapy, weight management, and frequent activity in the overall management of his chronic venous disease. He verbalizes understanding of all discussion, agrees with this plan, and denies any questions. [employer] Other 08-20-2022 History of Present illness Narrative* Wilfrid Haley MD - 07/20/2022 8:23 AM EDT Images from the original note were not included. EMERGENCY TRIAGE, TREAT AND TRANSPORT (ET3) DOCUMENTATION OF TELEHEALTH VISIT Date / Time: 07/18/2022 / 1430 Name: Yousif Aguilar : 1945 SSN: [id number] EMS Agency: [facility] [] Verbal consent obtained [] Implied consent - patient with potential emergency medical condition requiring assessment of capacity to refuse treatment and/or transport VITAL SIGNS: see flowsheet documentation Reason for Telehealth Visit: Chief Complaint Patient presents with Fall History of Present Ilness: Pt fell at home today. No c/o new pain, no LOC. Denies hitting head. No n/v, no dizziness. No other recent falls. No complaints at this time. Has ambulated since the fall with no new difficulty/pain. Pt is on blood thinners, no other bleeding problems. Additional pertinent PMHx, SocHx, FamHx: Remote cva, HTN Review of Systems: Denies the following: headache, neck pain, back pain, chest pain, difficulty breathing, new weakness, n/v Exam: General: Awake, no distress ENT: normocephalic, atraumatic Pulmonary: No respiratory distress Cardiovascular: Well perfused Neurologic: Oriented to person, place, time and events. Moving all extremities equally. Psychiatric: Appropriate. Good insight and judgement. Medical Decision Making: Fall at home, does not appear to have any injury. Pt awake, alert, and able to ambulate at baseline. Has appropriate support at home. No further questions Disposition Supported by Telehealth Assessment: ET3 transport decisions: Treat in place EMS Disposition Reported: Same ET3 Encounter Completed by: Wilfrid Haley MD documented in this [id number] Hospital Discharge instructions Patient Education 07/05/2022 13:44:46 Hip Pain Hip Pain The hip is the joint between the upper legs and the lower pelvis. The bones, cartilage, tendons, and muscles of your hip joint support your body and allow you to move around. Hip pain can range from a minor ache to severe pain in one or both of your hips. The pain may be felt on the inside of the hip joint near the groin, or on the outside near the buttocks and upper thigh. You may also have swelling or stiffness in your hip area. Follow these instructions at home: Managing pain, stiffness, and swelling If directed, put ice on the painful area. To do this: ?Put ice in a plastic bag. ?Place a towel between your skin and the bag. ?Leave the ice on for 20 minutes, 2 3 times a day. If directed, apply heat to the affected area as often as told by your health care provider. Use theheat source that your health care provider recommends, such as a moist heat pack or a heating pad. ?Place a towel between your skin and the heat source. ?Leave the heat on for 20 30 minutes. ?Remove the heat if your skin turns bright red. This is especially important if you are unable to feel pain, heat, or cold. You may have a greater risk of getting burned. Activity Do exercises as told by your health care provider. Avoid activities that cause pain. General instructions Take byac-dqx-fopixqk and prescription medicines only as told by your health care provider. Keep a journal of your symptoms. Write down: ?How often you have hip pain. ?The location of your pain. ?What the pain feels like. ?What makes the pain worse. Sleep with a pillow between your legs on your most comfortable side. Keep all follow-up visits as told by your health care provider. This is important. Contact a health care provider if: You cannot put weight on your leg. Your pain or swelling continues or gets worse after one week. It gets harder to walk. You have a fever. Get help right away if: You fall. You have a sudden increase in pain and swelling in your hip. Your hip is red or swollen or very tender to touch. Summary Hip pain can range from a minor ache to severe pain in one or both of your hips. The pain may be felt on the inside of the hip joint near the groin, or on the outside near the buttocks and upper thigh. Avoid activities that cause pain. Write down how often you have hip pain, the location of the pain, what makes it worse, and what it feels like. This information is not intended to replace advice given to you by your health care provider. Make sure you discuss any questions you have with your health care provider. Document Released: 05/07/2011 Document Revised: 04/03/2020 Document Reviewed: 04/03/2020 [employer] Patient Education 2019 [employer] Follow Up Care 07/05/2022 11:49:47 With:Abbie Gtz Address: [address] [place] [address] [facility] [place] [address] [facility] (1) When:07/08/2022 13:33:40 [facility]08-05-2022 Evaluation + Plan noteExtracted from: Title:ED Note Author:Dhruv Concepcion PA-C te:07/05/22 Fall at home (W19.XXXA: Unsp ecified fall, initial encounter) Right hip pain (M25.551: Pain in right hip) Unspecified place in unspecified non-institutional (private) residence as the place of occurrence of the external cause (Y92.009: Unspecified place in unspecified non-institutional (private) residence as the place of occurrence of the external cause) Orders: CT Head or Brain w/o Contrast CT Spine Cervical w/o Contrast XR Hip 2-3 Views Right + Pelvis [facility]04-21-2022 Hospital Discharge instructions Patient Education 03/21/2022 08:32:55 Colon Polyps Colon Polyps Polyps are tissue growths inside the body. Polyps can grow in many places, including the large intestine (colon). A polyp may be a round bump or a mushroom-shaped growth. You could have one polyp or several. Most colon polyps are noncancerous (benign). However, some colon polyps can become cancerous over time. Finding and removing the polyps early can help prevent this. What are the causes? The exact cause of colon polyps is not known. What increases the risk? You are more likely to develop this condition if you: Have a family history of colon cancer or colon polyps. Are older than 50 or older than 45 if you are . Have inflammatory bowel disease, such as ulcerative colitis or Crohn's disease. Have certain hereditary conditions, such as: ?Familial adenomatous polyposis. ?Perkins syndrome. ?Turcot syndrome. ?Peutz Jeghers syndrome. Are overweight. Smoke cigarettes. Do not get enough exercise. Drink too much alcohol. Eat a diet that is high in fat and red meat and low in fiber. Had childhood cancer that was treated with abdominal radiation. What are the signs or symptoms? Most polyps do not cause symptoms. If you have symptoms, they may include: Blood coming from your rectum when having a bowel movement. Blood in your stool. The stool may look dark red or black. Abdominal pain. A change in bowel habits, such as constipation or diarrhea. How is this diagnosed? This condition is diagnosed with a colonoscopy. This is a procedure in which a lighted, flexible scope is inserted into the anus and then passed into the colon to examine the area. Polyps are sometimes found when a colonoscopy is done as part of routine cancer screening tests. How is this treated? Treatment for this condition involves removing any polyps that are found. Most polyps can be removed during a colonoscopy. Those polyps will then be tested for cancer. Additional treatment may be needed depending on the results of testing. Follow these instructions at home: Lifestyle Maintain a healthy weight, or lose weight if recommended by your health care provider. Exercise every day or as told by your health care provider. Do not use any products that contain nicotine or tobacco, such as cigarettes and e-cigarettes. If you need help quitting, ask your health care provider. If you drink alcohol, limit how much you have: ?0 1 drink a day for women. ? 0 2 drinks a day for men. Be aware of how much alcohol is in your drink. In the [place] one drink equals one 12 oz bottle of beer (355 mL), one 5 oz glass of wine (148 mL), or one 1 oz shot of hard liquor (44 mL). Eating and drinking Eat foods that are high in fiber, such as fruits, vegetables, and whole grains. Eat foods that are high in calcium and vitamin D, such as milk, cheese, yogurt, eggs, liver, fish, and broccoli. Limit foods that are high in fat, such as fried foods and desserts. Limit the amount of red meat and processed meat you eat, such as hot dogs, sausage, christensen, and lunch meats. General instructions Keep all follow-up visits as told by your health care provider. This is important. ?This includes having regularly scheduled colonoscopies. ?Talk to your health care provider about when you need a colonoscopy. Contact a health care provider if: You have new or worsening bleeding during a bowel movement. You have new or increased blood in your stool. You have a change in bowel habits. You lose weight for no known reason. Summary Polyps are tissue growths inside the body. Polyps can grow in many places, including the colon. Most colon polyps are noncancerous (benign), but some can become cancerous over time. This condition is diagnosed with a colonoscopy. Treatment for this condition involves removing any polyps that are found. Most polyps can be removed during a colonoscopy. This information is not intended to replace advice given to you by your health care provider. Make sure you discuss any questions you have with your health care provider. Document Released: 08/13/2005 Document Revised: 03/04/2019 Document Reviewed: 03/04/2019 [employer] Patient Education [employer] Follow Up Care 03/05/2022 13:23:06 With:Mitali Hawk CNP Address: When:1 year only if needed [facility] Evaluation + Plan note No data available for this section [facility] Evaluation + Plan note Future Appointments Appointment Date:12/10/2022 10:00:00 AM Scheduled Provider: [facility] Appointment Type:WC Assessment (FT) Appointment Date:12/17/2022 01:45:00 PM Scheduled Provider:Facundo Hoffman DPM [facility] Appointment Type:WC [facility] Future App[facility]ments Appointment Date:12/17/2022 01:45:00 PM Scheduled Provider:Facundo Hoffman DPM [facility] Appointment Type:WC [facility] Future Appointments Appointment Date:12/31/2022 10:30:00 AM Scheduled Provider: [facility] Appointment Type:WC Assessment (FT) Appointment Date:01/07/2023 01:45:00 PM Scheduled Provider:Facundo Hoffman DPM [facility] Appointment Type:WC [facility] Future Appointments Appointment Date:12/31/2022 01:30:00 PM Scheduled Provider: [facility] Appointment Type:WC Assessment (FT) Appointment Date:01/07/2023 01:45:00 PM Scheduled Provider:Facundo Hoffman DPM [facility] Appointment Type:WC [facility] App[facility]ments Appointment Date:01/07/2023 01:45:00 PM Scheduled Provider:Facundo Hoffman DPM [facility] Future Appointments Appointment Date:01/14/2023 02:30:00 PM Scheduled Provider:Facundo Hoffman DPM [facility] Appointment Type:WC Follow Up Visit (FT) [facility] + Plan note Future Appointments Appointment Date:01/21/2023 03:30:00 PM Scheduled Provider:Facundo Hoffman DPM [facility] Appointment Type:WC [facility] Future Appointments Appointment Date:01/28/2023 03:30:00 PM Scheduled Provider:Facundo Hoffman DPM [facility] Appointment Type:WC Follow Up Visit (FT) Appointment Date:02/11/2023 01:30:00 PM Scheduled Provider:Facundo Hoffman DPM [facility] Appointment Type:WC [facility] App[facility]ments Appointment Date:02/04/2023 01:45:00 PM Scheduled Provider:Facundo Hoffman DPM [facility] Appointment Type:WC Follow Up Visit (FT) Appointment Date:02/11/2023 01:30:00 PM Scheduled Provider:Facundo Hoffman DPM [facility] Appointment Type:WC [facility] App[facility]ments Appointment Date:02/11/2023 01:30:00 PM Scheduled Provider:Facundo Hoffman DPM [facility] Appointment Type:WC [facility] App[facility]ments Appointment Date:02/25/2023 11:30:00 AM Scheduled Provider: [facility] Appointment Type:WC Assessment (FT) Appointment Date:03/04/2023 01:15:00 PM Scheduled Provider:Facundo Hoffman DPM [facility] Appointment Type:WC [facility] App[facility]ments Appointment Date:03/04/2023 01:15:00 PM Scheduled Provider:Facundo Hoffman DPM [facility] Appointment Type:WC [facility] Future Appointments Appointment Date:03/11/2023 11:00:00 AM Scheduled Provider: [facility] Appointment Type:WC Assessment (FT) Appointment Date:03/17/2023 01:30:00 PM Scheduled Provider: [facility] Appointment Type:WC Assessment (FT) Appointment Date:03/25/2023 02:00:00 PM Scheduled Provider:Facundo Hoffman DPM [facility] Appointment Type:WC [facility] Future Appointments Appointment Date:03/17/2023 01:30:00 PM Scheduled Provider: [facility] Appointment Type:WC Assessment (FT) Appointment Date:03/25/2023 02:00:00 PM Scheduled Provider:Facundo Hoffman DPM [facility] Appointment Type:WC [facility] App[facility]ments Appointment Date:04/08/2023 01:45:00 PM Scheduled Provider:Facundo Hoffman DPM [facility] Appointment Type:WC [facility] Future Appointments Appointment Date:04/15/2023 02:15:00 PM Scheduled Provider:Facundo Hoffman DPM [facility] Appointment Type:WC [facility] (FT[facility] Future Appointments Appointment Date:05/15/2023 10:00:00 AM Scheduled Provider: [facility] Appointment Type:WC Assessment (FT) Appointment Date:05/20/2023 01:45:00 PM Scheduled Provider:Facundo Hoffman DPM [facility] Appointment Type:WC [facility] Future App[facility]ments Appointment Date:05/20/2023 03:15:00 PM Scheduled Provider:Facundo Hoffman DPM [facility] Appointment Type:WC [facility] (FT[facility] Future Appointments Appointment Date:06/02/2023 08:30:00 AM Scheduled Provider: [facility] Appointment Type:WC Assessment (FT) Appointment Date:06/10/2023 03:00:00 PM Scheduled Provider:Facundo Hoffman DPM [facility] Appointment Type:WC [facility] (FT[facility] Future App[facility]ments Appointment Date:06/10/2023 03:00:00 PM Scheduled Provider:Facundo Hoffman DPM [facility] Appointment Type:WC [facility] (FT[facility] Future Appointments Appointment Date:06/24/2023 03:00:00 PM Scheduled Provider:Facundo Hoffman DPM [facility] Appointment Type:WC [facility] (FT[facility] Future Appointments Appointment Date:07/08/2023 01:45:00 PM Scheduled Provider:Facundo Hoffman DPM [facility] Appointment Type:WC [facility] (FT[facility] Future Appointments Appointment Date:07/14/2023 09:00:00 AM Scheduled Provider: [facility] Appointment Type:WC Assessment (FT) Appointment Date:07/22/2023 02:00:00 PM Scheduled Provider:Facundo Hoffman DPM [facility] Appointment Type:WC [facility] (FT[facility] Future Appointments Appointment Date:07/22/2023 02:00:00 PM Scheduled Provider:Facundo Hoffman DPM [facility] Appointment Type:WC [facility] (FT[facility] Future Appointments Appointment Date:08/05/2023 02:00:00 PM Scheduled Provider:Facundo Hoffman DPM [facility] Appointment Type:WC Follow Up Visit (FT[facility] Future Appointments Appointment Date:10/28/2023 02:00:00 PM Scheduled Provider: Location:[facility] Appointment Type:Surgery FT [facility]* Diagnosis Fall in home, initial encounter- Primary documented in this [facility]: History general Narrative - Reported* Type Description Date Medical History high cholesterol Medical History Blood clots Surgical History hand and leg surgery 1974 Surgical History jaw wiring Surgical History elbow surgery Surgical History appendectomy Surgical History wrist surgery right hand Hospitalization History see above [facility] Other Hospital Discharge instructions No data available for this section [facility] No data available for this section [facility] Summary Purpose Family History No Family History Records FoundNo Family History Records FoundNo Family History Records FoundNo Family History Records FoundNo Family History Records Found No data available for this section No data available for this section No data available for this section No data available for this section No Family History Records FoundNo Family History Records Found Advance Directives No Advanced Directives Records Found Advance Directive Response Recorded Date/ Time Advance Directives No February 20 023 1:34pm Chief Complaint and Reason for Visit Chief Complaint vv's with ulcers Additional Source Comments (unrecognized sect ion and content) No Status Records FoundNo Status Records FoundNo Status Records FoundNo Status Records FoundNo Status Records FoundNo Status Records FoundNo Status Records Found INFORMATION SOURCE (unrecogn ized section and content) DATE CREATED AUTHOR 05/27/2018 [facility] DATE CREATED AUTHOR AUTHOR'S ORGANIZ ATION 02/25/2019 [facility] DATE CREATED AUTHOR AUTHOR'S ORGANIZ ATION 11/01/2022 [facility] DATE CREATED AUTHOR AUTHOR'S ORGANIZ ATION 03/15/2023 [facility] DATE CREATED AUTHOR AUTHOR'S ORGANIZ ATION 04/09/2023 [facility] DATE CREATED AUTHOR AUTHOR'S ORGANIZ ATION 11/05/2023 Gerardo Soni [facility] DATE CREATED AUTHOR AUTHOR'S ORGANIZ ATION 12/22/2023 [facility] EPIC Care Team (unrecognized sect ion and content) Team Status: Active Member Role Status Dates Abbie Gtz III , DO Primary Care Provider Active Team Status: Inactive Member Role Status Dates Abbie Gtz III , DO Primary Care Provider Active Perlita Reno NP-C Attending Provider Active Reason for Visit (unrecogniz ed section and content) Reason Comments Fall Goals (unrecognized section and content) Goals may be documented in a n alternate section FOR RECORDS PERTAINING TO PATIENTS WHO ARE OR HAVE BEEN ENROLLED IN A CHEMICAL DEPENDENCY/SUBSTANCEABUSE PROGRAM, SOME INFORMATION MAY BE OMITTED. This clinical summary was aggregated from multiple sources. Caution should be exercised in using it in the provision of clinical care. This summary normalizes information from multiple sources, and as a consequence, information in this document may materially change the coding, format and clinical context of patient data. In addition, data may be omitted in some cases. CLINICAL DECISIONS SHOULD BE BASED ON THE PRIMARY CLINICAL RECORDS. [employer] provides no warranty or guarantee of the accuracy or completeness of information in this document.
== END 2024-01-15 13:41 | disposition home or self-care (01) ==
LOC: VC 13:40
PROVIDERS: PCP Radiology Diagnostic Radiology; Visit Provider Radiology Diagnostic Radiology
DX: I83.813 Varicose veins of bilateral lower extremities with pain (principal)
CPT/HCPCS: 36466

== ENCOUNTER 2024-01-20 13:09 | Outpatient (OUT) | payer OTHER, MEDICAID, SELFPAY ==
--- NOTE | 2024-01-20 13:11 | VEIN_ITS ---
Patient Name: YOUSIF NAJERA MR#: [id number] : 1945 Exam Date: 01/20/2024 Ordering Doctor: DR THERESA DE DIOS M.D. RADIOLOGY REPORT PROCEDURE: VC EXT VENOUS RT LMTD COMPARISON: VC EXT VENOUS RT LMTD, 08/25/2023. INDICATIONS: Phlebitis of superficial veins of rt lower extremity I80.01 TECHNIQUE: Lower extremity rodriges scale and Duplex Doppler evaluation of the deep venous system from the inguinal ligament through the calf veins. FINDINGS: REGION: Right lower extremity. THROMBI: Negative for DVT. Varithena induced thrombus visualized at dist/med calf and mid/med calf. COMPRESSIBILITY: Non-compressible segments corresponding to thrombus FLOW: Areas of no flow corresponding to thrombus OTHER: Multiple varicose veins remain. The largest at mid/med thigh 5.5mm with 0.9s reflux. CONCLUSION: 1. 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 Dictated by: Koko Tanner M.D. on 01/20/2024 at 14:16 Approved by: Koko Tanner M.D. on 01/20/2024 at 14:17
--- NOTE | 2024-01-20 13:12 | VEIN_ITS ---
Patient Name: YOUSIF NAJERA MR#: [id number] : 1945 Exam Date: 01/20/2024 Ordering Doctor: DR THERESA DE DIOS M.D. RADIOLOGY REPORT PROCEDURE: [facility] EST LMTD VEIN CENTER - OFFICE VISIT FOLLOW UP [facility] PROGRESS NOTES: The patient reports improvement in leg symptoms. There has been interval reduction in varicosities. The patient has followed our recommendations to walk 20-30 minutes once or twice per day since the procedure. Physical exam demonstrates decrease in varicosities of the leg. Persistent varicosities are identified along the legs bilaterally. Review of the ultrasound performed the same day demonstrates occlusive thrombus extending throughout the treated vein(s), see separate report, consistent with a successful ablation. No thrombus extending into or beyond the saphenofemoral junction. The patient expressed a desire to proceed with treatment of remaining incompetent varicosities. The patient was informed that treatment was a process and would require several procedures/sessions. VEIN/[facility] EST LMTD IMPRESSION: 1. Successful ablation of the right leg treated branch saphenous vein(s). 2. Persistent varicose veins and lower extremity skin changes and symptoms. PLAN: Microfoam chemical ablation of left leg incompetent branch saphenous varicosities. Nurse notes, history and physical were reviewed and confirmed, see attached forms. The nurse was present throughout the physical exam and consultation Dictated by: Koko Tanner M.D. on 01/20/2024 at 14:17 Approved by: Koko Tanner M.D. on 01/20/2024 at 14:18
--- OUTSIDE RECORDS SUMMARY | 2024-01-20 13:33 | XMS_ITS | CCD ---
Author Name Unknown Address [address] [place] [address] Organization [facility] Care Team Providers Care Safety Patrol Officer Name Role Phone NEO ROCHA Unavailable Unavailable GTZ III, ABBIE R Unavailable Unavailabl e Dolce, Stephen R. Admitting Unavailable Dolce, Stephen R. Attending Unavailable Gtz, Abbie Primary Care Unavailable [place] Admitting Unavailable [place] Attending Unavailable Gtz, Abbie Primary Care Unavailable Gtz III, Abbie R Primary Care Physician [phone] Unavailable Primary Care Provider Unavailabl e PROVIDER, [...] Unavailable Dolce, Facundo Alfred Attending Unavailable Dolce, Facudno Alfred Attending Unavailable Dolce, Facundo Alfred Attending Unavailable Dolce, Facundo Alfred Referring Unavailable Dolce, Facundo Alfred Admitting Unavailable Dolce, Facundo Alfred Attending Unavailable Gtz, Abbie R Admitting Unavailable Gtz, Abbie R Attending Unavailable Dokken, Bryce Montgomery Attending Unavailable Dolce, Facundo Alfred Attending Unavailable Dolce, Facundo Alfred Attending Unavailable Dolce, Facundo Alfred Attending Unavailable Dolce, Facundo Alfred Attending Unavailable Dolce, Facundo Alfrde Attending Unavailable Dolce, Facundo Alfred Attending Unavailable [...] [IODINE] Drug Allergy 6 Unknown (qualifier value) [facility] Repository (20 sources) Penicillins; Translations: [PENICILLINS] Propensity to adverse reactions to drug (disorder) 6 Unknown (qualifier value) [facility] Repository (1 source) SHELLFISH CONTAINING PRODUCTS; Translations: [SHELLFISH CONTAINING PRODUCTS] Propensity to adverse reactions to drug (disorder) 7 AOF [facility] Repository (20 sources) Shellfish; Translations: [shellfish] Propensity to adverse reactions (disorder) Pharyngeal swelling (finding), Difficulty breathing (finding) [facility] Repository (5 sources) Contrast media; Translations: [Contrast Dye] Propensity to adverse reactions Dizziness (finding) [facility] (1 source) Penicillin Drug Allergy rash Interface21 Other (1 source) Shellfish Drug allergy Unknown Interface21 Other (1 source) Penicillins; Translations: [penicillins] Drug allergy Unknown (qualifier value) [facility] Comment on above: as a child Medications Current Medications Medication Drug Class(es) Dates Sig (Normalized) Sig (Original) acetaminophen 325 mg / HYDROcodone bitartrate 5 mg oral tablet (2 sources) Opioid Agonist Start: 10-28-2023 [place] 325 mg-5 mg oral tablet See Instructions, for pain, 40 tab(s), Refill(s) 0, 1 - 2 po q4-6h prn pain Dx: S52.031D Duration: 7 days, [id number], 177, cm, 10/22/23 12:25:00 EST, Height/Length Dosing, 132.5, kg, 10/22/23 12:25:00 EST, Weight Dosing Start Date: 10/28/23 Status: Ordered Start: 10-17-2023 End: 10-20-2023 take 1 tablet by mouth every six hours for pain [place] 325 mg-5 mg oral tablet 1 tab(s), Oral, q6hr for pain for 3 day(s), 10 tab(s), Refill(s) 0, [facility], 177.8, cm, 10/17/23 21:21:00 EST, [...] constipation, # 40 cap(s), Refills(s) 0, Pharmacy: [facility]/pharmacy #6173, 177, cm, 10/22/23 12:25:00 EST, Height/Length [...] Facility IntraOperative Documentson 1 01-04-2023 IntraOperative Documents [id number]#1.00TIFF [facility] Progress Note-Physicianon Progress Note-Physician Patient: YOUSIF AGUILAR Age: 77 years Sex: Male : 1945 Associated Diagnoses: None Author: MD Rudd Ahmad F Postoperative Information Postoperative disposition: Postoperative disposition: To PACU. Optimetrix number: Optimetrix number [id number]. Anesthetic utilized: General. Health Status Allergies: Allergic [...] when meets criteria ( To home ). [facility] Comment on above: Result Comment: Elec tronically Signed By: MD Rudd Ahmad F\.br\Date and Time Signed: 11/01/23 18:16 EST Progress Note-Physician Patient: YOUSIF AGUILAR Age: 77 years Sex: Male : 1945 Associated Diagnoses: None Author: MD Rudd Ahmad F Preoperative Information Time patient last [...] constipation, # 40 cap(s), Refills(s) 0, Pharmacy: [facility]/pharmacy #6173, 177, cm, 10/22/23 12:25:00 EST, Height/Length Dosing, 132.5, kg, 10/22/23 12:25:00 EST, Weight Dosing [place] 325 mg-5 mg oral tablet: See Instructions, for pain, 40 tab(s), Refill(s) 0, 1 - 2 po q4-6h prn pain Dx: S52.031D Duration: 7 days, [facility]pharmacy #6173, 177, cm, 10/22/23 12:25:00 EST, Height/Length [...] Problems High blood pressure / SNOMED CT 4065422303 / Confirmed Hypercholesterolemia / ICD-9-CM 272.0 / Confirmed Lymphedema / SNOMED CT 49015837 / Confirmed 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 / SNOMED CT 899228246 / Confirmed History of colon polyps / SNOMED CT 4489339287 / Confirmed Colon polyp / SNOMED CT 845897848 / Confirmed Diverticulosis / SNOMED CT 6334385238 / Confirmed Hemorrhoids / SNOMED CT 104083084 / Confirmed Extreme obesity / SNOMED CT 38P18041-7JI6-64C2-P434-7 [id number] / Possible Resolved: DVT / SNOMED CT 852450959 Resolved: PE - Pulmonary embolism / SNOMED CT 5736777966 Resolved: Stasis dermatitis co-occurrent with venous ulcer of right lower extremity due to chronic peripheral venous hypertension / SNOMED CT 889045033698401 Resolved: Stasis dermatitis of left lower extremity due to peripheral venous hypertension / SNOMED CT 444432760703617 Resolved: Stasis dermatitis of right lower extremity due to peripheral venous hypertension / SNOMED CT 236339237160092 Resolved: Stasis dermatitis and venous ulcer of left lower extremity due to chronic peripheral venous hypertension / SNOMED CT 452693723018002 Histories Past Medical History: Active Hypercholesterolemia (272.0) Lymphedema (14550462) Resolved PE - Pulmonary embolism (5384535934): Onset on 12/01/2005 at 60 years. Resolved. DVT (218147537): Resolved. Stasis dermatitis co-occurrent with venous ulcer of right lower extremity due to chronic peripheral venous hypertension (456212074001011): Resolved. Stasis dermatitis of left lower extremity due to peripheral venous hypertension (421947217248882): Resolved. Stasis dermatitis of right lower extremity due to peripheral venous hypertension (382004790999591): Resolved. Stasis dermatitis and venous ulcer of left lower extremity due to chronic peripheral venous hypertension (707582846688803): Resolved. Family History: Hyperlipidemia Mother Heart disease Father Non Hodgkin's lymphoma Mother Procedure history: ORIF of Right Elbow (833812138) on 10/28/2023 at 77 Years. Colonoscopy (813654168) on 03/04/2022 at 76 Years. EVLT RLSV [...] fracture in 1966 at 21 Years. Appendectomy (476250906) in 1952 at 7 Years. bilateral wrist [...] visible). Respiratory (more content not included)... [facility] Comment on above: Result Comment: Elec tronically Signed By: MD Kar, Jemima Bella\.br\Date and Time Signed: 11/01/23 18:14 EST Operative Reporton Operative Report SURGERY DATE: 2022 RAG PRODUCTION WORKER: Samuel Gonsalez PA-C PREOPERATIVE DIAGNOSIS: Right olecranon fracture POSTOPERATIVE DIAGNOSIS: Right olecranon fracture OPERATION: Right olecranon open reduction internal fixation ANESTHESIA: General ANESTHESIOLOGIST: CINDY Faria ESTIMATED BLOOD LOSS: None SPECIMEN: None COMPLICATIONS: None IMPLANT: 0.062 K-wire x2 with 18 gauge dental wire for a xsalfo-lg-ooayh tension band construct HISTORY/OPERATIVE INDICATIONS: Yousif is [...] visualized. It is then fixed with a odkvlm-an-jqevu construct as described below. Samuel Gonsalez did [...] This is done in the standard fashion. Bzxlej-ck-ksfrj is then applied, tensioned accordingly, is cut [...] patient is subsequently extubated, [facility] and taken to Post-Anesthesia Care Unit in stable condition. He will be discharged this day. Theresa Villalpando D.O. Dictated: 10/28/2023 [id number] Transcribed: 10/29/2023 cc:Abbie Gtz III, D.O. [facility] Comment on above: Result Comment: Elec tronically Signed By: Theresa Villalpando DO\.br\Date and Time Signed: 10/30/23 11:53 EST Consent for Anesthesiaon Consent for Anesthesia [id number]#1.00TIFF Normal [facility] Discharge Instructionson Discharge Instructions [id number]#1.00TIFF Normal [facility] Insurance Correspondence Off iceon 10-29-2023 Insurance Correspondence Office [id number]#1.00TIFF Normal [facility] IntraOperative Documentson 1 12-29-2022 IntraOperative Documents [id number]#1.00TIFF Normal [facility] Main OR Intraoperative Recor don 10-29-2023 Main OR Intraoperative Record IntraOp Document Type FT Summary Primary Physician: Theresa Villalpando DO Finalized Date/Time: 10/29/23 12:32:07 Pt. Name: YOUSIF AGUILAR/Sex: 1945 Male Med Rec #: [id number] Physician: Theresa Villalpando DO Financial #: [id number] Pt. Type: A Room/Bed: [place] [address] Admit/Disch: 10/28/23 10:36:00 - 10/28/23 17:40:00 Institution: [...] D Role Performed Anesthesiologist Surgeon - Primary PA/RADIO REPAIRER Director Of Medical Education Time In 10/28/23 14:07:00 10/28/23 14:07:00 10/28/23 [...] C Roll RT, Daniel P Role Performed Buggyman - Primary Scrub - Primary Desktop Analyst Time In 10/28/23 14:07:00 10/28/23 14:07:00 10/28/23 [...] and tissue Entry 1 Skin Integrity Intact, [place], Warm, and Skin Abnormality No Dry Outcomes [...] symptoms o (more content not included)... [facility] Preoperative Documentson Preoperative Documents [id number]#1.00TIFF Normal [facility] XR Elbow 2 Views Righton XR [...] mGy = 1.66 DAP = na Normal [facility] Consent for Treatmenton 10-02 Consent for Treatment [id number]#1.00TIFF Normal [facility] Discharge Instructionson Discharge Instructions YOUSIF AGUILAR [...] physician. This Is Your Medications List acetaminophen-hydrocodone ([place] 325 mg-5 mg oral tablet) atorvastatin (atorvastatin [...] Comments: Appointment has already been scheduled Where: [address] [place] [phone] Business (1) Medications What How Much When Instructions Next Dose Unchanged acetaminophen-hydrocodone ([place] 325 mg-5 mg oral tablet) See instructions 1 - 2 po q4-6h prn pain Dx: S52.031D Duration: 7 days Pickup at [facility]/pharmacy #6173 Unchanged atorvastatin (atorvastatin 20 mg Tab) 1 Tablets By Mouth Once a day (at bedtime) Unchanged docusate (Colace 100 mg Cap) 1 Capsules By Mouth 2 times a day as needed for for constipation [facility] Unchanged hydrochlorothiazide (hydrochlorothiazide 25 mg oral tablet) 1 Tablets By Mouth Every day Unchanged rivaroxaban (Xarelto 2.5 mg oral tablet) 2 Tablets By Mouth Every day Pharmacy Information [facility]/pharmacy #6173: [address] [place], [place] [id number] [phone] Test Results No qualifying data available. Allergies [...] WIRE 10/28/2023 K-WIRE (2), 10/28/2023 Education Materials [place], [place] [facility] OUTPATIENT SURGERY Home Care [...] pain a (more content not included)... [facility] Comment on above: Result Comment: Elec tronically Signed By: Flavio PHELPS, Marilou Aguero\.br\Date and Time Signed: 10/28/23 16:53 EST H&P Updateon 10-28-2023 H&P Update [id number]#1.00TIF F [facility] Main OR PACU I Recordon 10-02 Main OR PACU I Record PACU Phase I Document Type FT Summary Primary Physician: Theresa Villalpando DO Finalized Date/Time: 10/28/23 16:14:58 Pt. Name: YOUSIF AGUILAR Jimbo Gaines/Sex: 1945 Male Med Rec #: [id number] Physician: Theresa Villalpando DO Financial #: [id number] Pt. Type: A Room/Bed: [facility] Admit/Disch: 10/28/23 10:36:00 - Institution: Case Times [...] By: Elizabeth Rowe RN 10/28/23 16:14 Normal [facility] Main OR Preoperative Recordo n 10-28-2023 Main OR Preoperative Record PreOp Document Type FT Summary Primary Physician: Theresa Villalpando DO Finalized Date/Time: 10/28/23 14:12:47 Pt. Name: YOUSIF AGUILAR./Sex: 1945 Male Med Rec #: [id number] Physician: Theresa Villalpando DO Financial #: [id number] Pt. Type: A Room/Bed: [place] [address] Admit/Disch: 10/28/23 10:36:00 - Institution: Case Times [...] Signed By: Idris Brooks 10/28/23 14:12 Normal [facility] Monitor Recordon 10-28-2023 Monitor Record [id number]#1.00TIFF Normal [facility] Patient Education - Texton 1 12-28-2022 Patient Education - Text [place], [place] [facility] OUTPATIENT SURGERY Home Care [...] drive. __ Theresa Villalpando DO [facility] [address] [place] [address] Reviewed: 03-08 [facility] Progress Note-Physicianon Progress Note-Physician Patient: YOUSIF AGUILAR Age: 77 years Sex: Male : 1945 Associated Diagnoses: None Author: Theresa Villalpando DO Postoperative Information Procedure: R Olecranon ORIF Preoperative Diagnosis: R olecranon fx. Postoperative Diagnosis: same. Performed by: camila. Director Of Medical Education: Wallace. Specimens Removed: none. Prosthesis: tension band. . Estimated Blood Loss: 0 ml. Complications: None. Anesthesia type: General. Normal [facility] Comment on above: Result Comment: Elec tronically Signed By: Theresa Villalpando DO\Date and Time Signed: 10/28/23 15:37 EST CHEMISTRYOrdered By: SYSTEM SYSTEM on 10-27-2023 Potassium [Moles/Vol] 3.6 mmol/L Normal 3.5 - 5.3 mmol/L [facility] [place] Consent for Procedure/Surger yon 10-27-2023 Consent for Procedure/Surgery [id number]#1.00TIFF [facility] Consent for Treatmenton 10-02 Consent for Treatment [id number]#1.00TIFF [facility] Physician Orderon 10-27-2023 Physician Order [id number]#1.00TIFF [facility] Potassiumon 10-27-2023 Potassium [Moles/Vol] 3.6 mmol/L Normal 3.5-5.3 [facility] Comment on above: Performed By: #### 2 313191 #### [facility] [address] [place] [address] XR Chest 2 Viewson 3 XR Chest [...] mGy = na DAP = na Normal [facility] Auto Diffon 10-22-2023 Basophils/100 WBC (Bld) 0.3 % Normal 0.0-2.0 [facility] Comment on above: Order Comment: Order Added by Discern Expert. Performed By: #### 2 297997, 7618590, 4592243, 69756890 ####[address] [address] Basophils/Leukocytes Auto (Bld) [Pure # fraction] 0.0 E9/L Normal 0.0-0.2 [facility] Comment on above: Order Comment: Order Added by Discern Expert. Performed By: #### 2 457196, 9168326, 6898965, 67384565 ####[address] [address] Eosinophils/100 WBC (Bld) 3.6 % Normal 0.0-8.0 [facility] Comment on above: Order Comment: Order Added by Discern Expert. Performed By: #### 2 278313, 1270992, 4700799, 60903302 ####[address] [address] Eosinophils/Leukocyt es Auto (Bld) [Pure # fraction] 0.3 E9/L Normal 0.0-0.5 [facility] Comment on above: Order Comment: Order Added by Discern Expert. Performed By: #### 2 500904, 7162850, 2269535, 43142160 ####[address] [address] Lymphocytes/100 WBC (Bld) 15.5 % Normal 14.0-50.0 [facility] Comment on above: Order Comment: Order Added by Discern Expert. Performed By: #### 2 866243, 4604572, 3706914, 40603567 ####[address] [place] [address] Lymphocytes/Leukocyt es Auto (Bld) [Pure # fraction] 1.1 E9/L Normal 1.0-4.0 [facility] Comment on above: Order Comment: Order Added by Discern Expert. Performed By: #### 2 308366, 5162470, 3875408, 43976127 ####[place] [address] [place] [address] Monocytes/100 WBC (Bld) 9.5 % Normal 4.0-14.0 [facility] Comment on above: Order Comment: Order Added by Discern Expert. Performed By: #### 2 885513, 5610661, 8584436, 97891507 ####[address] [address] Monocytes/Leukocytes Auto (Bld) [Pure # fraction] 0.7 E9/L Normal 0.2-1.0 [facility] Comment on above: Order Comment: Order Added by Discern Expert. Performed By: #### 2 143986, 7012499, 8086365, 70097828 ####[address] [address] Neutrophils/100 WBC (Bld) 71.1 % Normal 36.0-75.0 [facility] Comment on above: Order Comment: Order Added by Discern Expert. Performed By: #### 2 547793, 7811894, 3264012, 67443457 ####[address] [address] Neutrophils/Leukocyt es Auto (Bld) [Pure # fraction] 5.2 E9/L Normal 2.0-7.5 [facility] Comment on above: Order Comment: Order Added by Discern Expert. Performed By: #### 2 181258, 7938247, 6275641, 33221046 ####[address] [place] [address] BMPon 10-22-2023 Anion gap [Moles/Vol] 13 mmol/L Normal 6-16 [facility] Comment on above: Performed By: #### 2 631656, 9056539, 7493864, 95219209 ####[facility] [address] [place] [address] Calcium [Mass/Vol] 8.4 mg/dL Low 8.9-11.1 [facility] Comment on above: Performed By: #### 2 537074, 7219553, 8302428, 79852725 ####[facility] [address] [place] [address] Chloride [Moles/Vol] 97 mmol/L Low 101-111 [facility] Comment on above: Performed By: #### 2 573866, 4023475, 7526042, 07819311 ####[facility] [address] [place] [address] CO2 [Moles/Vol] 31 mmol/L Normal 21-31 [facility] Comment on above: Performed By: #### 2 273557, 5257202, 5229022, 07409999 ####[facility] [address] [place] [address] Creatinine [Mass/Vol] 0.9 mg/dL Normal 0.5-1.3 [facility] Comment on above: Performed By: #### 2 758666, 2855639, 0311428, 33145154 ####[facility] [address] [place] [address] Glucose [Mass/Vol] 105 mg/dL Normal 55-199 [facility] Comment on above: Result Comment: If t his glucose result represents a fasting glucose, interpretation should refer to the following reference range: 55-99 mg/dL Performed By: #### 2 235152, 7034666, 3089096, 08411038 ####[facility] [address] [place] [address] Potassium [Moles/Vol] 2.8 mmol/L Abnormal 3.5-5.3 [facility] Comment on above: Result Comment: Crit ical Result verified by repeat analysis\Critical Result S_K:2.8 Called to [facility] by MITALI DUBON And Read Back For Confirmation at: 10/22/2023 13:36:24 Performed By: #### 2 719962, 3184653, 8780586, 20824958 ####[facility] [address] [place] [address] Sodium [Moles/Vol] 138 mmol/L Normal 135-145 [facility] Comment on above: Performed By: #### 2 607159, 3847197, 7815855, 33677537 ####[facility] [address] [place] [address] Urea nitrogen [Mass/Vol] 17 mg/dL Normal 5-21 [facility] Comment on above: Performed By: #### 2 867371, 2679032, 0260044, 32914943 ####[facility] [address] [place] [address] Urea nitrogen/Creatinine [Mass ratio] 19 No Units Normal 10-20 [facility] Comment on above: Performed By: #### 2 670972, 1154420, 6772575, 03079778 ####[facility] [address] [place] [address] CBC w/ Auto Diffon 3 Erythrocyte distribution width (RBC) [Ratio] 14.1 % Normal 10.9-14.2 [facility] Comment on above: Performed By: #### 2 581051, 0806415, 4789459, 42665420 ####[address] [address] Hematocrit (Bld) [Volume fraction] 32.6 % Low 37.7-49.0 [facility] Comment on above: Performed By: #### 2 637743, 9368888, 5750358, 23639363 ####[address] [place] [address] Hemoglobin (Bld) [Mass/Vol] 10.9 g/dL Low 13.5-17.5 [facility] Comment on above: Performed By: #### 2 567956, 4776250, 2292130, 38317039 ####[address] [place] [address] MCH (RBC) [Entitic mass] 28.9 pg Normal 27.0-34.0 [facility] Comment on above: Performed By: #### 2 929866, 9695993, 4659838, 39741953 ####[address] [address] MCHC (RBC) [Mass/Vol] 33.5 g/dL Normal 31.4-36.0 [facility] Comment on above: Performed By: #### 2 794915, 8907420, 4286905, 02978425 ####[address] [address] MCV (RBC) [Entitic vol] 86.3 fL Normal 80.0-100.0 [facility] Comment on above: Performed By: #### 2 490821, 5409212, 1434252, 84200693 ####[address] [address] Platelet mean volume (Bld) [Entitic vol] 8.8 fL Normal 6.4-10.8 [facility] Comment on above: Performed By: #### 2 467930, 8071461, 1256787, 73740136 ####[address] [address] Platelets (Bld) [#/Vol] 245.0 E9/L Normal 150.0-500.0 [facility] Comment on above: Performed By: #### 2 436101, 2113880, 9907596, 04599712 ####[address] [address] RBC (Bld) [#/Vol] 3.8 E12/L Low 4.3-5.9 [facility] Comment on above: Performed By: #### 2 586855, 8803496, 5175324, 65209025 ####[address] [address] WBC corrected for nucl RBC Auto (Bld) [#/Vol] 7.4 E9/L Normal 4.0-11.0 [facility] Comment on above: Performed By: #### 2 117044, 4440228, 0455378, 53189375 ####[facility] [address] [place] [address] CHEMISTRYOrdered By: SYSTEM SYSTEM on 10-22-2023 Anion [...] 89 mL/min/1.73 m2 Normal >=59mL/min/ 1.73 m2 [facility] Comment on above: Interpretive Data: [...] S_K:2.8 Called to [facility] by MITALI DUBON And Read Back For Confirmation at: 10/22/2023 13:36:24 Sodium [Moles/Vol] 138 mmol/L Normal 135 - 145 mmol/L [facility] Remisol Urea nitrogen [Mass/Vol] 17 mg/dL Normal 5 - 21 mg/dL [facility] Remisol Urea nitrogen/Creatinine [Mass ratio] 19 mg/mg Normal 10 - 20 FT Remisol Consent for Treatmenton 10-02 Consent for Treatment [id number]#1.00TIFF Normal [facility] HEMATOLOGYOrdered By: SYSTEM SYSTEM on 10-22-2023 [...] [Vol rate/Area] 89 mL/min/1.73 m2 Normal >=59 [facility] Comment on above: Order Comment: Order added by Discern Expert. Result Comment: [employer] mercy kidney disease could be indicated at eGFR's of less than 60 mL/min/1.73m2. Kidney failure is indicated at less than 15 mL/min/1.73m2. Performed By: #### 2 816556, 0049567, 6386393, 82164080 ####[facility] [address] [place] [address] Consent for Treatmenton 10-01 Consent for Treatment [id number]#1.00TIFF Normal [facility] Discharge Instructionson Discharge Instructions [id number]#1.00TIFF Normal [facility] ED Clinical Summaryon 2022 ED Clinical Summary (Inserted Image. Clarissa ble to display) [address] [address] ED Clinical Summary Person Information Name: YOUSIF AGUILAR Olga [place] Age: 77 Years : 1945 Sex: Male Language: Persian PCP: Abbie Gtz III, DO Marital Status: [...] 10/17/2023 23:43:34 10/17/2023 23:43:34 10/17/2023 23:43:34 ADDRESS: [address] [place] [id number] PHYS DOC NOTES: MEDICAL INFORMATION: Prescriptions Given: New Medications [facility], [address] [facility] [place], [place] [id number], [phone] acetaminophen-hydrocodone ([place] 325 mg-5 mg oral tablet) 1 Tablets [...] up: With: Address: When: Theresa Villalpando [address] [place] [address] Business (1) In 3 days 10/20/2023 Comments: You can use the pain medication every 6 hours as needed for pain. Please follow-up with your primary care doctor addition to orthopedics for further evaluation management. Please return to the ED for any new or worsening symptoms. With: Address: When: Abbie Gtz [address] [facility] [place] [address] Business (1) In 3 days DIAGNOSIS: Olecranon fracture Normal [facility] ED Note-Physicianon 10-18-20 ED Note-Physician Basic Information Time Seen: Bryce Funk DO 10/17/2023 21:16 Chief Complaint Pt arrives via CRITICAL ACCESS [facility] for a [facility]. Pt states he [...] and Complexity of Problems Differential Diagnosis: [] [facility] Data External documents reviewed: [] My EKG [...] for 3 day(s), 10 tab(s), Refill(s) 0, [facility], 177.8, cm, 10/17/23 21:21:00 EST, Height/Length Dosing, 133.1, kg, 10/17/23 21:21:00 EST, Weight Dosing Sling Apply XR Elbow 3+ Views Right Disposition Plan Discharge Prescription List Prescriptions [place] 325 mg-5 mg oral tablet, 1 tab(s), Oral, q6hr, PRN Follow-up With When Contact Information Theresa Villalpando In 3 days 10/20/2023 EST [address] [place] [address]- Business (1) Additional Instructions: You can use the pain medication every 6 hours as needed for pain. Please follow-up with your primary care doctor addition to orthopedics for further evaluation management. Please return to the ED for any new or worsening symptoms. Abbie Gtz In 3 days [address] [facility] [address], [place] [address]- Business (1) Additional Instructions: Patient [...] lower ex (more content not included)... [facility] Comment on above: Result Comment: Elec [...] these instructions at home: Medicines ? Take xlvx-aim-nsxwtkn and prescription medicines only as told by your health care provider. ? Ask your health care provider if the medicine prescribed to you: ? Requires you to avoid driving or using heavy machinery. ? Can cause constipation. You may need to take actions to prevent or treat constipation, such as: ? Drink enough fluid to keep your urine pale yellow. ? Take hmcg-dqd-xjmgerh or prescription medicines. ? Eat foods that [...] is import (more content not included)... [facility] ED Patient Summaryon 023 ED Patient Summary (Inserted Image. Clarissa ble to display) [place] [id number] Patient Discharge Instructions Person Information Name: YOUSIF AGUILAR Age: 77 Years Arrival Date: 10/17/2023 21:13:58 Discharge Diagnosis: Olecranon fracture Primary Care Physician: Abbie Gtz III, DO Provider Information Primary Provider: Bryce Funk DO Advanced Objective C Developer:None The exam and treatment you received in the Emergency Department were for an urgent problem and are not intended as complete care. It is important that you follow up with a doctor, nurse practitioner, or physician?s reproductive healthcare assistant for ongoing care. If your symptoms become [...] Instructions: With: Address: When: Theresa Childressdelia [address] [place] [address] [employer] (1) In 3 days 10/20/2023 Comments: You can use the pain medication every 6 hours as needed for pain. Please follow-up with your primary care doctor addition to orthopedics for further evaluation management. Please return to the ED for any new or worsening symptoms. With: Address: When: Abbie Gtz [address] [facility], [place] [address] [employer] (1) In 3 days In the event that this physician does not participate in your insurance network, please consult with your insurance company to find a nearby participating provider. Patient Education Materials: William Fracture A MESSAGE TO ALL PATIENTS REGARDING OPIOIDS PRESCRIPTION OPIOIDS: WHAT YOU NEED TO KNOW Prescription opioids can be used to help relieve ouugiknl-gn-ixhagb pain and are often prescribed following a [...] following g (more content not included)... [facility] ED Traumaon 10-18-2023 ED Trauma [id number]#1.00TIFF [facility] XR Elbow 3+ Views Righton XR [...] in mGy = na DAP = na [facility] Pre-Arrival Noteon 3 Pre-Arrival Note Pre-Arrival Summary Name: , maritza Current Date: 10/17/2023 21:14:37 EST Gender: Male Date of : Age: 77 Pre-Arrival Type: EMS ETA: 10/17/2023 21:06:00 EST Primary Care Physician: Presenting Problem: T2-fall, elbow pain Pre-Arrival User: Nicholas Rosario RN Referring Source: Location: [place] Completion Date/Time: 10/17/2023 21:06:00 [facility] Emergency Department Pre-Hospital Report Form ____ Vital Signs: Pre-Hospital Report: slipped on kitchen floor falling to R elbow, swelling noted. denies hitting head or LOC. on xarelto. no other pain/complaints Treatment in Route: none Response to Treatment: Misc. Issues: [facility] Nursing Note - Woundon 08-12 Nursing Note - Wound [id number] 226197 [id number]#1.00CD:1 27 [facility] Consent for Procedure/Surger yon 08-05-2023 Consent for Procedure/Surgery [id number]#1.00CD:1 27 [facility] Consent for Treatmenton Consent for Treatment [id number]#1.00CD:12 7 [facility] Physician Orderon 08-05-2023 Physician Order [id number]#1.00CD:1 27 [facility] Nursing Note - Woundon 07-31 Nursing Note - Wound [id number] 158495 [id number]#1.00CD:1 27 [facility] Physician Orderon 07-31-2023 Physician Order [id number]#1.00CD:1 27 [facility] Consent for Treatmenton 07-02 Consent for Treatment [id number]#1.00CD:12 7 [facility] Multi-Wound Charton 07-29-20 Multi-Wound Chart [id number] [id number]#1.00CD:1 27 [facility] Nursing Assessment - Woundon 07-29-2023 Nursing Assessment - Wound [id number]#1.00CD:1 27 [facility] Procedure - Woundon 07-29-20 Procedure - Wound [id number] 96939 [id number]#1.00CD:1 27 [facility] Consent for Treatmenton 07-02 Consent for Treatment [id number]#1.00CD:12 7 [facility] Multi-Wound Charton 07-22-20 Multi-Wound Chart [id number] 76665 [id number]#1.00CD:1 27 [facility] Nursing Assessment - Woundon 07-22-2023 Nursing Assessment - Wound [id number]#1.00CD:1 27 [facility] Nursing Note - Woundon 07-22 Nursing Note - Wound [id number] 878903 [id number]#1.00CD:1 27 [facility] Physician Orderon 07-22-2023 Physician Order [id number]#1.00CD:1 27 [facility] Procedure - Woundon 07-22-20 Procedure - Wound [id number] 25890 [id number]#1.00CD:1 [facility] Progress Note - Woundon 07-02 Progress Note - Wound [id number]#1.00CD:1 27 [facility] Consent for Treatmenton 07-01 Consent for Treatment [id number]#1.00CD:127 [facility] Physician Orderon 07-15-2023 Physician Order [id number]#1.00CD:1 27 [facility] Multi-Wound Charton 07-14-20 Multi-Wound Chart [id number] [id number]#1.00CD:1 27 [facility] Nursing Assessment - Woundon 07-14-2023 Nursing Assessment - Wound [id number]#1.00CD:1 27 [facility] Nursing Note - Woundon 07-14 Nursing Note - Wound [id number] 036435 [id number]#1.00CD:1 27 [facility] Consent for Procedure/Surger yon 07-08-2023 Consent for Procedure/Surgery [id number]#1.00CD:1 27 [facility] Consent for Procedure/Surgery [id number]#1.00CD:1 27 [facility] Consent for Treatmenton Consent for Treatment [id number]#1.00CD:12 7 [facility] Multi-Wound Charton 07-08-20 Multi-Wound Chart [id number] 69912 [id number]#1.00CD:1 27 [facility] Nursing Assessment - Woundon 07-08-2023 Nursing Assessment - Wound [id number]#1.00CD:1 27 [facility] Nursing Note - Woundon 07-08 Nursing Note - Wound [id number] 366415 [id number]#1.00CD:1 27 [facility] Physician Orderon 07-08-2023 Physician Order [id number]#1.00CD:1 27 [facility] Procedure - Woundon 07-08-20 Procedure - Wound [id number] [id number]#1.00CD:1 27 [facility] Progress Note - Woundon Progress Note - Wound [id number]#1.00CD:1 27 [facility] Multi-Wound Charton 07-01-20 Multi-Wound Chart [id number] 80576 [id number]#1.00CD:1 27 [facility] Nursing Note - Woundon 07-01 Nursing Note - Wound 170.71.270.120.9530 764197 [id number]#1.00CD:1 27 [facility] Consent for Treatmenton 06-02 Consent for Treatment [id number]#1.00CD:12 7 [facility] Insurance Correspondenceon 0 06-30-2023 Insurance Correspondence [id number]#1.00CD:1 27 [facility] Physician Orderon 06-30-2023 Physician Order [id number]#1.00CD:1 27 [facility] Procedure - Woundon 06-30-20 Procedure - Wound [id number] 89155 [id number]#1.00CD:1 27 [facility] Consent for Treatmenton 06-01 Consent for Treatment [id number]#1.00CD:12 7 [facility] Multi-Wound Charton 06-24-20 Multi-Wound Chart [id number] [id number]#1.00CD:1 27 [facility] Nursing Assessment - Woundon 06-24-2023 Nursing Assessment - Wound [id number]#1.00CD:1 27 [facility] Nursing Note - Woundon 06-24 Nursing Note - Wound 170.71.867.828.9645 [id number] [id number]#1.00CD:1 27 [facility] Physician Orderon 06-24-2023 Physician Order [id number]#1.00CD:1 27 [facility] Procedure - Woundon 06-24-20 Procedure - Wound [id number] [id number] [id number]#1.00CD:1 27 [facility] Progress Note - Woundon 06-01 Progress Note - Wound [id number]#1.00CD:1 27 [facility] Consent for Treatmenton 05-31 Consent for Treatment [id number]#1.00CD:12 7 [facility] Multi-Wound Charton 06-17-20 Multi-Wound Chart [id number] 45194 [id number]#1.00CD:1 27 [facility] Nursing Assessment - Woundon 06-17-2023 Nursing Assessment - Wound [id number]#1.00CD:1 27 [facility] Nursing Note - Woundon 06-17 Nursing Note - Wound [id number] 418425 [id number]#1.00CD:1 27 [facility] Physician Orderon 06-17-2023 Physician Order [id number]#1.00CD:1 27 [facility] Procedure - Woundon 06-17-20 Procedure - Wound [id number] 53040 [id number]#1.00CD:1 27 [facility] Progress Note - Woundon 05-31 Progress Note - Wound [id number]#1.00CD:1 27 [facility] Consent for Procedure/Surger yon 06-11-2023 Consent for Procedure/Surgery [id number]#1.00CD:1 27 [facility] Correspondence - Woundon Correspondence - Wound [id number]#1.00CD:1 27 [facility] Nursing Note - Woundon 06-11 Nursing Note - Wound [id number] 083784 [id number]#1.00CD:1 27 [facility] Physician Orderon 06-11-2023 Physician Order [id number]#1.00CD:1 27 [facility] Procedure - Woundon 06-11-20 Procedure - Wound [id number] 60252 [id number]#1.00CD:1 27 [facility] Progress Note - Woundon 05-31 Progress Note - Wound [id number]#1.00CD:1 27 [facility] Consent for Treatmenton 05-31 Consent for Treatment [id number]#1.00CD:12 7 [facility] Multi-Wound Charton 06-10-20 Multi-Wound Chart 170.71.121.117.36645 88225 [id number]#1.00CD:1 27 [facility] Nursing Assessment - Woundon 06-10-2023 Nursing Assessment - Wound [id number]#1.00CD:1 27 [facility] Nursing Note - Woundon 06-09 Nursing Note - Wound [id number] 970583 [id number]#1.00CD:1 27 [facility] Physician Orderon 06-09-2023 Physician Order [id number]#1.00CD:1 27 [facility] Procedure - Woundon 06-09-20 Procedure - Wound [id number] 13987 [id number]#1.00CD:1 27 [facility] Progress Note - Woundon 05-31 Progress Note - Wound [id number]#1.00CD:1 27 [facility] Physician Orderon 06-06-2023 Physician Order [id number]#1.00CD:1 27 [facility] Procedure - Woundon 06-06-20 Procedure - Wound [id number] 81680 [id number]#1.00CD:1 27 [facility] Multi-Wound Charton 06-05-20 Multi-Wound Chart [id number] [id number]#1.00CD:1 27 [facility] Nursing Note - Woundon 06-05 Nursing Note - Wound [id number] 555133 [id number]#1.00CD:1 27 [facility] Procedure - Woundon 05-28-20 Procedure - Wound 170.71.121.117.35047 74862 [id number]#1.00CD:12 7 [facility] Consent for Treatmenton 05-02 Consent for Treatment [id number]#1.00CD:12 7 [facility] Multi-Wound Charton 05-27-20 Multi-Wound Chart [id number] 41359 [id number]#1.00CD:1 27 [facility] Nursing Note - Woundon 05-27 Nursing Note - Wound [id number] 044592 [id number]#1.00CD:1 27 [facility] Physician Orderon 05-27-2023 Physician Order [id number]#1.00CD:1 27 [facility] Multi-Wound Charton 05-21-20 Multi-Wound Chart [id number] [id number]#1.00CD:1 27 [facility] Nursing Note - Woundon 05-21 Nursing Note - Wound 170.71.790.490.6396 950421 [id number]#1.00CD:1 27 [facility] Physician Orderon 05-21-2023 Physician Order [id number]#1.00CD:1 27 [facility] Prescriptions/Work Noteson 0 05-21-2023 Prescriptions/Work Notes [id number]#1.00CD:1 27 [facility] Procedure - Woundon 05-21-20 Procedure - Wound 170.71.121.117.87444 38224 [id number]#1.00CD:1 27 [facility] Consent for Treatmenton 05-02 Consent for Treatment [id number]#1.00CD:12 7 [facility] Multi-Wound Charton 05-20-20 Multi-Wound Chart [id number] 22323 [id number]#1.00CD:1 27 [facility] Nursing Assessment - Woundon 05-20-2023 Nursing Assessment - Wound [id number]#1.00CD:1 27 [facility] Consent for Treatmenton 05-01 Consent for Treatment [id number]#1.00CD:12 7 [facility] Consent for Procedure/Surger yon 05-06-2023 Consent for Procedure/Surgery [id number]#1.00CD:1 27 [facility] Consent for Treatmenton Consent for Treatment [id number]#1.00CD:12 7 [facility] Multi-Wound Charton 05-06-20 Multi-Wound Chart [id number] [id number]#1.00CD:1 27 [facility] Nursing Assessment - Woundon 05-06-2023 Nursing Assessment - Wound [id number]#1.00CD:1 27 [facility] Nursing Note - Woundon 05-06 Nursing Note - Wound 170.71.852.569.8430 737698 [id number]#1.00CD:1 27 [facility] Physician Orderon 05-06-2023 Physician Order [id number]#1.00CD:1 27 [facility] Procedure - Woundon 05-06-20 Procedure - Wound 170.71.121.117.43542 47116 [id number]#1.00CD:1 27 [facility] Progress Note - Woundon -0 Progress Note - Wound [id number]#1.00CD:1 27 [facility] Correspondence - Woundon Correspondence - Wound [id number]#1.00CD:12 7 [facility] Consent for Treatmenton 04-01 Consent for Treatment [id number]#1.00CD:12 7 [facility] Multi-Wound Charton 04-22-20 Multi-Wound Chart [id number] 05941 [id number]#1.00CD:1 27 [facility] Nursing Assessment - Woundon 04-22-2023 Nursing Assessment - Wound [id number]#1.00CD:1 27 [facility] Nursing Note - Woundon 04-22 Nursing Note - Wound [id number] 639130 [id number]#1.00CD:1 27 [facility] Physician Orderon 04-22-2023 Physician Order [id number]#1.00CD:1 27 [facility] Procedure - Woundon 04-22-20 Procedure - Wound [id number] 08398 [id number]#1.00CD:1 27 [facility] Progress Note - Woundon 04-01 Progress Note - Wound [id number]#1.00CD:1 27 [facility] Correspondence - Woundon Correspondence - Wound [id number]#1.00CD:12 7 [facility] Consent for Treatmenton 03-31 Consent for Treatment [id number]#1.00CD:12 7 [facility] Correspondence - Woundon Correspondence - Wound [id number]#1.00CD:1 27 [facility] Multi-Wound Charton 04-15-20 Multi-Wound Chart [id number] [id number]#1.00CD:1 27 [facility] Nursing Assessment - Woundon 04-15-2023 Nursing Assessment - Wound [id number]#1.00CD:1 27 [facility] Nursing Note - Woundon 04-15 Nursing Note - Wound 170.71.171.821.4676 614155 [id number]#1.00CD:1 27 [facility] Physician Orderon 04-15-2023 Physician Order [id number]#1.00CD:1 27 [facility] Procedure - Woundon 04-15-20 Procedure - Wound 170.71.121.117.58383 25180 [id number]#1.00CD:1 27 [facility] Progress Note - Woundon 03-31 Progress Note - Wound [id number]#1.00CD:1 27 [facility] Progress Note - Wound [id number]#1.00CD:1 27 [facility] Correspondence - Woundon Correspondence - Wound [id number]#1.00CD:12 7 [facility] Consent for Procedure/Surger yon 04-08-2023 Consent for Procedure/Surgery [id number]#1.00CD:1 27 [facility] Consent for Treatmenton Consent for Treatment [id number]#1.00CD:12 7 [facility] Multi-Wound Charton 04-08-20 Multi-Wound Chart 170.71.121.117.40356 [id number] [id number]#1.00CD:1 27 [facility] Nursing Assessment - Woundon 04-08-2023 Nursing Assessment - Wound [id number]#1.00CD:1 27 [facility] Nursing Note - Woundon 04-08 Nursing Note - Wound 170.71.478.290.6729 539047 [id number]#1.00CD:1 27 [facility] Physician Orderon 04-08-2023 Physician Order [id number]#1.00CD:1 27 [facility] Procedure - Woundon 04-08-20 Procedure - Wound 170.71.121.117.81160 93980 [id number]#1.00CD:1 27 [facility] Consent for Treatmenton Consent for Treatment [id number]#1.00CD:12 7 [facility] Multi-Wound Charton 04-02-20 Multi-Wound Chart 170.71.121.117.18479 68870 [id number]#1.00CD:1 27 [facility] Nursing Note - Woundon 04-02 Nursing Note - Wound 170.71.674.398.6316 271771 [id number]#2.00CD:1 27 [facility] Physician Orderon 04-02-2023 Physician Order [id number]#2.00CD:1 27 [facility] Procedure - Woundon 04-02-20 Procedure - Wound 170.71.121.117.48772 02841 [id number]#1.00CD:1 27 [facility] Nursing Assessment - Woundon 03-27-2023 Nursing Assessment - Wound [id number]#1.00CD:1 27 [facility] Nursing Note - Woundon 03-27 Nursing Note - Wound 170.71.951.818.2092 697618 [id number]#1.00CD:1 27 [facility] Coding Summary.on 03-26-2023 Coding Summary. CD:[id number] Ww+PG hlYWQ+MU8HJQMhA11ffYKhbQ4 kW9DWYZgZDslySITUHXwAKmSm axOdBU1epTHvVIWu IC8+BU6kAHDiCovxxPYfm8G8p LF6A63rqw7tIUneePJ2AWIeSn Wcmgmkn1podSo2QLnmFsbmThI t BRQfkJ41FIM4wP07Eb04wEAhn AEut8orxOy7AaJsEYIzXOE3jW jrMFxvg4JdMCJhA35sjYWlg5I 6 ODSpkUofbJKfSuLmbEN4gL6xU Pvfhrnpu3onofvzLec4df08pE Fgq7G5vSZ6Y1ZxdaH1YKIwzDX g VgxxkWBTiH2srhktl5iixmsiP aByFFPzXQd1GVn1KIFghNsqIr HhXS41ZJE2DNAwzxYwR3DeOZZ s bPkqNwB7e4T7Kq4LN2SBOtorF 1VNTUFSWTwvdGQ+BT45qw99T1 BnKixrPzc9FWCsRKM1fVS5kC3 n HNXePTzhs1X4sZE2H5ZyagZcb a8wl2qkVAIaDYyvZ86geIPiu1 S9MRBbwIW6XHHjbYtcFiPhlX6 3 Oyc+EZKpgEdki3HlXduwy5wdf 6osjLy9PvtwEWMssrXauRdeSM M9k1RhXk8gXKYvvJI9uML7iK2 i NdPnRxT4OYwaG303UxZbpZSlK rbuS77lC3HzwJS+SZLmNgp4WZ TtpPigFL0vK2QrOANzzahhuHE m vFwjAE6aSSGcdfjzELYovB4nS WTfX6d4RkIpRlD7GGshZ8WxBA KrupebHz70lV1mQsTjBuK1VFx u Y5SryfI9YCIubAWtDYfrFXD8B 22sx4F0WRSnIJPtZDJ2mEX9oY 1hbGlnbjogbGVmdDsgdmVydGl j SKodIRhcI175NOVozJnyGqUhK GluZyBEYXRlOiAgMDQvMjYvMj AyMzwvdGQ+GSQkJHR3nOzsWYF n fGZyFJpsMo4sqWohyWmySL7bT UXqcgbpUJWcjV2mKSNraYXyoO dnWY1vMWIgklktf508TmAcCXG 0 IKKguIQdG9CaeS2mUuMiERDyM ESwL8BtrQAxAMerR781ETgmUa O9COEswbVrZ5UcRCDqtBnhMbX 0 h3S5Qs2Ec1GogvmvL0OqoEQjX oEaQlitYQp6D1EaShyroYH+PC 58VCTbCI21RVb2AVW5kDvpNBv i UPQlK5YuuT8pHyOaFXWwOSHaV yc+PHRhYmxlIHdpZHRoPScxMD NdHrBdpLvhTY1aXq8mNWBdFXL v uGgdgVSjHrBoj6edVFSdOBrbO E4ilOsbB6PtdGU2LJXmx6b3Vb 64R25kF4LozDN+KPPhjHW1nGB 0 rF6jGhReGbU9XKnrX340MzEeg OMmGdmzw0edf8mcyXx1NuE3OV RpprUyoVgnRGT2n2GhHr67X90 s IHdpZHRoPSIxNSUiIHZhbGlnb i3hcG6oFa1+NCXqlLY1vWI3sC 3gTnTeKlL5XIcyI451RxJutDH v Ndihj5vik6xeyIx3NpKzETOyt uLwlGzlXWN2f2BoOe12C0QmhG jmv5GsNst3iz15rDWka4S0mSQ 9 B4WwCXMiqfgcyHVbcZpsBQ0tR OShrxnfRTYavD2oYTXpK7g2Pu DzXwO6PWwrO0OavsD9VBSxaWJ g RCZrbMRKpP4cxvwxu3qvjareP vOwMABjVWt0FLp3PJSmeGvmXa EePRW5CyD4UFW0yBZxmY0ihFn n vcyceB9hTmc+MZY6oLApoBSSZ M3aIexvaND+IBOsFIK3zPxoCL tfOATzhU7cOUPqJ4y2IfOqHcB 1 LTkeI3KlloB9AVJyoCKuIAOip GZRmK9rnjoij6gvznjiPmBcBI EiNLx8NSa5NSNzwEzgMgKsCKC 0 EvF5ELI1nBYzeU1ttGlnssnuv G9wOyc+KengrLjmZQW4XNy3C2 JhIxn3HYQszXdfVI6fbCNfFRc u An5qsYgahTegHJ7iETYihfezq 805ZqRql9fzOXAbwXXbJMctSN J6P43uo7O0FTYkBFWzCKL2mXW 4 kV0bqLhphaludBTzlRrbtxEcb HvbKWolLTufV004EWNuoNqqQu FcJAe4O7IuRkx8PDVhuYzyTI3 n fSCiEIfoTc6mtZbrxZbfQL1sY XQfsajfi706KiLrg4wyNQIfyW ZlPTosZUR1F57of5T2GJKfXXG w VDG5iQM7jL1chZfnyfnoiXPwh JnbcmKfpGerGUpcRQiaB829KX FozIytFwEcvVi8H6FqTuu5FBP z hNwiMN1bdITrCOgoXu5kfQisx LbgXJ3uIRTqqfjct101AxWyp7 arSVLdyJZkMSswCXB3J10lg1W 6 WNYmCPDmONI5xQA6dN0gqXknx jogbGVmdDsgdmVydGljYWwtYW xiU223KTIczXijFuIjiCzmwqB g EUdyFYl9L1SsMcedmHU+PC90Y GQaEA73yBKrvHEfe6zpvTy8Va PrAOPfDLG5hBghWRaxe1BnVSO t C52qsINps8D3JRZixCamrXRdL gLvxNS0pF0tOHnommwvt0lpoe hhSyrpz6ilqt59xO46H93aDAl p GLUbEOBwBASdVYPfgFgvre3ij G9wIi8+WXDiiDM9fXH7cB9pYU GxFvY9NBioG225DoKteVFeUpb j q6tda0fhnMd7MsK5GCJmwzRdq UorAGY8x1KiWp83A99qLWvqDZ MtHDWxTZFeSCOzpMqmbb9sgS6 w Ii8+KKYbpMW6vZO1zF8nDrFiL rV0MFqbR175TwVmaCIhFptoP1 8mC2JzpOB+FEZsQoc6MOSjnFo s BZ2ukOPzUSwdTj6sAGV1RjCgB aVpQTexY1WwWIHnvkwneknbpY Q8NLTiHNWeiX34Pf3nfUofDVC w vSMRyQ9nuojdy8smerzcIwRbU NZaNXh9GWe5XUBrwVivHmPwLU B2XfB9ASX9lTHfqX8vuXsmbwo g mS2uH8CcNQMpszkuCt55nI3cY lJjQbQ8JXqkAhg+VEFOTkVSLC CQQ53PNKIoQHlpfIP+PHRkIHN 0 wNpqSNpcETQcjC5tMBYtN0z8Q bIsCzB3AGtyW4AxCOUkyfiiTh 48yO5nZwGsYwL7WEppP4UvcbK 6 AXLnkHYkBOctGZU3J02in7N3M GLzLGQjBVC4vCV2wJ1kiZfeag ogbGVmdDsgdmVydGljYWwtYWx p O435YFNydCtkCyYeRiO5ZuA3I Tx5N5FaYga8OVOkrRfsVL0paF OaLQhsJc0kvBmkyCzjDR2hKJT p arrdQMWlkB6eKKZgmKYnxNotK G3yUNAbagjdj795XeGzUCG6FI LhgPCmE2GinC6kMbReFKCvMZO w W9QtpKHaXGplG758YXbuGkQ4D CZryvOgN2AfUCRmeVbgLgL6a4 P0Gk78DJMHECNlyqsiyQT+PHR k FUZ6tMphLKqxUPYxbV1ySLUsM 2z4CrJzBiL9FEiiG4ZlFPDfzn sbIp35tP3uLfHiShO6QHodJ5M v psS6YAOfzDTfNDacREA2B52rv 2Z5QYIwXXIeEUG6uPU5iJ2uuE lnbjogbGVmdDsgdmVydGljYWw t NOcjA000BGBntYhsMo9bsBI4G 3ElUul4ZMZyxHgfPQ6iiIGhXM xmWp5sjNfroUnpEY3vXXIvrhl w DSQlkF1pRCSqeRVywQinCI8dL YQkocpql455KsIhOND2PEIfpN PqP3YmmS4nZaIcKWFhAVDcG6F l bABhNCudK390TWrmDiW6DFCgs wBtY1MaFYKbvCfaGnP4h2W6Kp 6RsOOpCDCyJZ23OI49RL69N3H y PjwvdGFibGU+PHRhYmxlIHdpZ XUySDefTWVxTuUkvCmxVV9xGf 3bSCBbHKOvdRssdIRkQgYeu9d s QGCfJNvfRC3mcRfrB2ChtMC9S QGgx3o7Yv69Z72aP8CaoYC+PG WpmWH7jLD5kQ3zChGlWfB1HWf p A602FrCghRZaKbzor0udv3gbf Bx8TvQyDJSvqlYjxXzoZVZ8t8 PbHv52V47zDRcaSIIgPIXfRGZ i WLTcjOhsjz9idA7aKt4+PGNvb PL9yYU5gD9yNwBkZnO0CTlqU2 05QcYoaJXiYbewP47eY1IpyKJ + BPUqIua2JZRslBfrUZ5yiWCdS AtxHj2gTGW2PyOzKtUwXVsxT6 QiABUcqpsoaqptyOV6FHNfPYR w lK56Yn9lfSacUx2aOQMsINF0W SRdoRBsS4LdpV2dAuVkWLVoCG LcY9LwjVAiLGjoT653DVkgEzS 7 SIJbenHiB7ChDJHwtFxqXhX6o 1H5Tf6OcKvzuALsHS8wZhUxXS s5K3SmFfr1BFLgsFwiQD0dgBU k FLeyYd9ilLijbNqyYL4eMSSdb rbae079PpWqj4fwWQLfcPZwRS ylBQM0H90wb5B1DGJuQRIgBIO 7 iXD2tR9ljKvlkcvqaCAteYzmd sEfySdqJRtjIYqpI996UJOtmA wqFqHTTyg5R6JuCge2HNEbwRw s RE4whMAaBQleWo1ldZkaoBpoO M2hBPTbkmyoc095IwNco9diAK ShcEPqWOcaVAX7U10ck0T4BIX w VVEhUFY7kRM3gY2ppYmaeiefk GVmdDsgdmVydGljYWwtYWxpZ2 81KXQqtAoxOr7DQif8H7HfBvj 0 FFYxfFskWB4qzGFgAXzsGh3rz YgswIjtOB5qUUChgdcsa965Mh Nvg8buHENarNKzBOraUZU7C35 s w8S7XGCdVUOnVAO0lHE6eG1fw GlnbjogbGVmdDsgdmVydGljYW rrYMwfH269EYWlqDduUbHryTF y OjwvdGQ+KF05rb05M6DdFqfpP rn9DBCqCQJ7tYT6qJ1oKHApFS qbw8D9tXG8P9JwqhYpdl1wq2y s YXBzZTog (more content not included)... [facility] Consent for Treatmenton 03-02 Consent for Treatment [id number]#1.00CD:12 7 [facility] Multi-Wound Charton 03-25-20 Multi-Wound Chart [id number]#1.00CD:1 27 [facility] Physician Orderon 03-25-2023 Physician Order [id number]#1.00CD:1 27 [facility] Procedure - Woundon 03-25-20 Procedure - Wound [id number]#1.00CD:1 27 [facility] Progress Note - Woundon - Progress Note - Wound [id number]#1.00CD:1 27 [facility] Physician Orderon 03-19-2023 Physician Order [id number]#1.00CD:1 27 [facility] Procedure - Woundon 03-19-20 Procedure - Wound [id number]#1.00CD:1 27 [facility] Nursing Note - Woundon 03-18 Nursing Note - Wound [id number]#1.00CD:1 27 [facility] Consent for Treatmenton 03-01 Consent for Treatment [id number]#1.00CD:12 [facility] Multi-Wound Charton 03-17-20 Multi-Wound Chart [id number]#1.00CD:1 27 [facility] Physician Orderon 03-14-2023 Physician Order [id number]#1.00CD:1 27 [facility] Procedure - Woundon 03-14-20 Procedure - Wound [id number]#1.00CD:1 27 [facility] Coding Summary.on 03-13-2023 Coding Summary. CD:[id number] Ww+PG hlYWQ+QZ7WEEKwV41yeSXkkM4 fY3PZCLyMDtuqHOFCVIrIQnIo joEdTP7gzMZuGSJx IC8+LE5rZLJvHwqajKXmj1A2h FR6P31qvh2uEDabjXA4ZHOnIp Vjtkzqp4wirXp7NCycLfrgItF t JMQbzB33KLB5jT43In45gSCxj PGwk3vteKo4HfJiBGKoNII7yY crWDxom2XeOFMkL94joCNbi8X 6 SCOcqQkmwNZqAvXqoVW3uV8lR Qnjmsfww1dolrwqCln5ti53eG Qdf1M6xNW8I4AgifX2JLMqqZM g ByzueOWQrS1ldcdvv5cxfesdS zZlRLIfJOa5CPs9ZCGdbVelSv HiHS66XWE0KTHyrzXwB7IlDCN s iWatUqP2x4A5Wy3MV6BCTllcL 1VNTUFSWTwvdGQ+DI50tk09Y0 UlDkyoCmr6LKSzYSP8rID3oR3 n WZVuOHwgn6V4eXM6M1EeeoAxx z0tm9meMPNtUTmvD59htCYqw1 Y3VJCflAV6YWDqpOeuKrYesL7 3 Oyc+ZBDzjBgrj1QyWjqhx7biw 1oebQw9InfgCCApcgLwnIolZH K7e8ScDd4wTRNnjJR2xCK1cQ1 i InNqZoL5TGjoR751ZtEqjGRtQ coeT99vO9CxzNB+BJXfLht0KO MrlCgmEF2aE0NhRSJfmopqjAT m sBueJS9tOCCjyogoYXOlvH5qH WVoG2q8QoSnJwL5POemB9NnKF CpojcdBe10yK8gXsAcNrH3RHz u F8GuveR2RDMuzFVeWKkfIYQ8S 42je3K4IYJkKXLrDUH7rKD4uA 1hbGlnbjogbGVmdDsgdmVydGl j IHdcMIicO153MNDlsLgbZxWoW GluZyBEYXRlOiAgMDQvMTMvMj AyMzwvdGQ+KMKcOWZ9gElsRPD n gIHkXUnmRx1zwPcrtSztIO0eP PLsyibfUZUhkC6yJCEjbXDvxS gnQK8zGEPzltyxd602LpTmVYH 0 XTOdyYRzF0KkbY4sJwDtMSExW PUcB6GrwNRrTSpmB541MRxtKp N7ZFXfqwFjP6VpVVQljBfcZuL 0 d7K4Xh9Vp1YkigsdF1MdbIPzV bYaXdyaDFm9X0NcSkjgvJM+PC 46VLRoWM32BNg1OVE2dEanTAt i URKdD9CfpA0gZvWqNCDrPYVdX yc+PHRhYmxlIHdpZHRoPScxMD SuWqYzyThdCP9hId7tGCJkYKE v qAjlhPYrNkHtv8jgGFWeBSjtG V1tnZddE3XruGX7XCEbp8k6Lp 69Z79yS2KceZM+EVYpkRY4lEN 0 yY0oJyMvAgT5NAqkU543PhGue ERyHopsa7ezv1nuoJh6LbM3AB LcwrDmqJmrYES7h0LvKx41O49 s IHdpZHRoPSIxNSUiIHZhbGlnb j7csY1aHa4+QKIzkDO9eNS8eV 3kVcEwNcC6DGexL269DoOcxCR v Cdtfv4azf5xdnJm4ObLcDQCra pKfdMggVTA0u8EbKt93F6YniO ham3KkYrt9yv03eDShc8Q7bVQ 9 R1DmRCIqxzcxaXMduVvzBH6qL BRcswcbGQCymM4gKOWgK5c2Sx XgFfO4EAihD0EupsX9AIIqvXC g GCTwvNFIuK2kzefsy0kkpqbsT oRcKQAzXDv6GYt7YNNieVvoNs BhZEA0ErO2MBO6uSWirE9hnYf n rqjngW1oJbb+EFJ9bNNlnYWPO O4yWsjxpLD+AJSyFUX8pXogDZ vyLEEutJ4bVGYuM3s7GuYiKfR 1 QQwuH0UjxbE8OWCtqGTdMNMsr ATXbC9jjcwaa7pimgabMyOoJA SzBBs7EZl0ARQwoLxqGqRtXQY 0 RuO3TTR8dWYnfW0plEpaghvay G9wOyc+QxnqwCkoEVW2OIi9P7 EmPmq3DVBbiPinZG9jrAQsZMu u Vk8qeXfyuQatEM4oSTTojtgbk 568AqDtu2dsTURddROzAXzdWH D1T13eu5T4YVKdETPiWEI2pHB 4 aM9ppPeyzkmgkOZtkWfaynUip GieBMzfEOlfI793XICknHxhDd GpNMr5W3LrCvx4AURfjRiyUR7 n pWDlIJdtHt8irNbztEgxGL0oZ KBmqibzj898GfNno3rlDENmwQ QkCJqzALU8V81pj7H6GHCqOZG w UMK3kJC5hO4owSbnixtrkJEox IhtwiGdsDnfZNjbNFldQ000VB RmoMnxAkHsjEa7D8NoYvc0ZPV z uZwxRB5tnDHbKQrjRj2seFaoj IlcYH6eVLRxjgqou790XpXix7 eeDKWgxXFnLPtvFJL0T44jc6O 6 ERWqEEGeAHV8vQA6lR3gaWpdb jogbGVmdDsgdmVydGljYWwtYW inQ797FDYipXtmPoZmnGblgyQ g VWvgKFt6K6YsWqjeaYR+PC90Y HAlDZ81xFQdgSEir4smhDf6It WxZTWuQDB2qPyjWYrxh4EcABN t H66npBCag3Y1JPNraDzimCQaU kIsrQG6vP3tEKkxvxamu7udaf lgPshfu9svii23cM97G63lXAq p HJYhSFHxIIUkHTIzwQznaj9qj G9wIi8+IHIvnHQ8aOF9uE2tHI TtFgK0ZAbcQ833TfLoiWEcZio j a4owt4ltnXa6KzW7TVAmrvBnp FibBDO2x6JyQd57L41oJHchZD JpIFUtUWWhHHWjhRixas8ouN7 w Ii8+HROtoRB6kMO0eA2jVrFoM aO0ELfzU873YgHmrPCgRzhzD7 9pD2KdaDT+BVIiFqw0VREuuUh s FF8vtWOsSCagXa1gYAC7NjHgK gIlKDroG5QtFLMkweeupiecqQ U5KRElDPCwfZ53Jg6caJfyXSR w sWPTxY0mnzwlj0kltojySjLtD EOeWEh4SPq5VSObfPhcQxQeEO R4HyE8QNL6cDXdpN4boQrhybx g mL6kN7RyAMGjkikkFc29zX1qZ gTiJlP1FPgiFba+VEFOTkVSLC RVW80FFSBdYWyeoSU+PHRkIHN 0 xTxzBWjqVIBsbZ3tDYAcC6r3E jGtKnZ9MRmlC0ZrPUOczdsxZu 20qF5wAeCtNtS4FPclQ5XmrnZ 6 CMRzoKLcTRueNUS0S77wm2B7Z DGpLBHhGEM3zDP8rU8fcObngx ogbGVmdDsgdmVydGljYWwtYWx p X303JKSfkOuzYaUoDwQ7LaF1K Wl6M3CcRty6RHJewTpvYT1xtT SgRGfnKs3cyLlwmJkuFP7cYGV p jjddUOBimD5fXFCxyTHowUryX Z2aPILejndpa137JcBjYTW2UI GzsIGkN5NbrY1kPaQjKXBjTJG w G6DbeMZwIVouI500OGvsNsW8V HRrsaKoF3LkBOMyyRycJjK7r4 R7Ew89BJOGBEKenczhcDQ+PHR k XRR5mGasDNdvBHQfdQ4jFKCnZ 8g3NrPgAsM5ODneM4MrUFThlr hsPl88lS4hVbSaEcY9PPysN6I v hoJ7UVWjpDJjDKfuIGO0F67gj 4T6CCRfLWAgSIS4wIG2hX9igE lnbjogbGVmdDsgdmVydGljYWw t ECgfS327UWKgjKrxGs9tuLD6T 4PpGeh2GQOgsWniFU6ltZAnBD viZh2uiDvhfHraYB4sWRPlrrr w OWDieG3dXZXalTQltJdqSO1yD OQbjditi327UcEhPPM6MLUsvF KgT1SrcS3aFcMlURPmKTDkW4J l vXIiBPcsB875APsoOpJ5JEUmj yCvD6CqSHDgnZvxMrW6a9A9Oe 2IsYBuBGKtXY54ZO71PU21A3B y PjwvdGFibGU+PHRhYmxlIHdpZ UHbMEakAQZiHgKrxXvuUM4gRk 3qGMDkMTXgcSwrzNFwLxXkv6a s DGMyPWlxJG2tbXobY5IexAU4G ROpc9z5Ti19P32gC5FlpXB+PG QxhKW2zMB6tO0wKjOfFyY3XCv p Q630KqOhrXBqGhkko7kkj7fbg En1DoDaFVZzgtGeqInxQML6l3 UySj22E34fMMlrKVNkPCPsNMB i CUHthPegbo2evT4xMu4+PGNvb BG9gCX5eI6bEiItTvO4NFanD3 26VrXxlIVmSxvgK09tT2AlpNW + TTTgZex6QZLquRylHF6znHGvY AlcIz4qKJB4XePzUnFiMDjoE3 XcBWBszktruufsbXD0RHYhIAG w pH60Oj7yfZxqBk2xTRQzNHN1Y RArfJKwU4ZfsM0qBbNjUDToFH LyJ5WskTVdVQuvN810LMjfOzD 7 SPYaggVjT0RmKDCwmRhxUnN9t 0Z1Bn7RqGkauXBcFC2wDiHoCN u7H3XfEia4FXXrwGweHU5zvTR k OJooFk8ydSplrPabDF4iGRHfo arcc516IdOyq1usDVRriPLqWE ukAFU9H09td7Y5RAKfZXIgZME 7 lBX5bT8hnUgnndjqdSBhuRany qHcpUpjRUttTTfbQ927YENztL eaXyNRRre0R8PzWta8AZLdoEc s BR9ryJHrEVntLy9wgImaqHtlU T3kMMDlokvbq318YbKof7gpZB QkxGLgJZtgIKO0B23df7W9EGL w ZUZuOJI7qWJ3vI5kwTtxoonhv GVmdDsgdmVydGljYWwtYWxpZ2 75GXLdzTgoPn7LVfk3T5VlPvt 0 ZVJlzSmgXB1jpEEvWYrvPj2ve OdzkImnWG7aPHHmorbvp590Fo Ghq9fhGOLpiBKhAFejYEY4I81 s j1E6OOAeNLHjXXM5bXY4iV8be GlnbjogbGVmdDsgdmVydGljYW wgJPlbX783PWUlyEzkOzDlwNB y OjwvdGQ+NW70eg29L5KfXtrsS et5KAYyGFM4vGM1iS7rHTEkKP hwz0R3bBA6N8SwkjNkco0es4r s YXBzZTog (more content not included)... [facility] Multi-Wound Charton 03-13-20 Multi-Wound Chart [id number]#2.00CD:1 27 [facility] Nursing Note - Woundon 03-13 Nursing Note - Wound [id number]#1.00CD:1 27 [facility] Consent for Treatmenton 03-01 Consent for Treatment [id number]#1.00CD:12 7 [facility] Coding Summary.on 03-06-2023 Coding Summary. CD:[id number] Ww+PG hlYWQ+OS2TWUZrD81xtIOptE8 qR7CPQVeZMjblSQCKUQzRFkPx ewVeAQ4mtMQnSPQw IC8+VE8iIZLgCoscbFErc4N1j VN8E08wbw0jDCaedQC5WTRcNe Fvgqfkr6hueUj7KObmFjjtFjK t APKdlD04LTW0hO00Oa65yPXkh KDnr7yjnDm5OcFaHGJkRMJ7wA kxWYwga5TqRQWnN91dqLLmd7F 6 GVJsqQfmsYLiWxQswTI9sM7gW Abkrskzk3griuwdIht3xs82dB Aqa2J8uAO0C2HmpnZ0GNRdtOA g VctybMNVqX9auktsg5zltsndR eRySIJqQXb7SRt7YLNszNqaGi PcEQ85YTZ4VSTihiWtW8IeFLN s oQauKyP3q7F7Sj2FC2JHTasiC 1VNTUFSWTwvdGQ+XS71ci49I9 GeTnmyXen7HJLeLOD9zPK3hW4 n PJVoWNsfk3C4xYI6D8BnwjUze r0bk7dwKYCdNPovB53phYZii1 A5KEQdrNV1YUOvgJqoOvBfkJ4 3 Oyc+ACFjlLbfd0YmFvegd1pgb 6wesDz7CmqtFXBevnOafScnEO G0l3MdVq3dRLIqqWK1oNZ2jB1 i JzVzFtL9SDsqC820AmUxaXFcW ikoS58iF7GhzZQ+VWHgMlu3UB MpqQahPK0yO2ImXLZenhfphTI m vRdiSH4vARZvcwmlPYOuqP1bT IToW9v9BbMmToS5EIiaL3YaLA SsjccaHx47hY9xKpCcHnJ4QNa u X8MfnwZ0COPwaAPtAFwiGFH7O 37yi3B8JEEcZMWcSFF7eFY1mT 1hbGlnbjogbGVmdDsgdmVydGl j ALgsKHnvD560SBBwmHpaXrLnC GluZyBEYXRlOiAgMDQvMDYvMj AyMzwvdGQ+WMAqJOI3jGelNZS n xPHzEPivOt0vzZvqaLkbIA6oT BJcxzitRWFnoP2zERCkrQKqeY miYX7sPLEacpdmo658AzIfZFC 0 AFZwuZEcC4CygT4xAwXwRDKtR EPiN8YofXJsELxrW302RUpcVd E1HLGjnmHgG1BvLGDpwTzgCuF 0 z2U2Io9Ok6XmuupoF7VgoSOoY wPpDxujRNn3G2AqNvnhsLB+PC 56ECGbPJ15IXi4EBR6mCuvRNy i OBYnQ7FklE4zRzJcBRCkYNJpG yc+PHRhYmxlIHdpZHRoPScxMD AyUoMciJcxQM9yLc6vOMJfWKQ v lKxffSKdPfGog2gcQNVzZUczJ V3eqRrpO2CosQS6SHWvh0y3Yj 89V31sM6PfhVY+ZGKnhNV6oKE 0 uP1lYwAdMiS1CCggA392OmTkn UQiZusru1kyf5yqiSb2BnB8VA XywiIaxPclUQF4m9WzQm42C33 s IHdpZHRoPSIxNSUiIHZhbGlnb h9ljE1zWn7+GIXkbWO3pSF1gH 9hOhFxXkI3UZwuW314LnHtsOX v Oznam5jbc4ixkNg8IeDpALOrf vMugWbbEOX7w2HrVs07I8PhzA xle6SgRan8ns05dYMxh1V4eQR 9 J2BdAJUxtjatwKXxlOgfSL1jE JMvsaveCGDwmG9vNARmR5x5Pm QyRvW4LZexL0MbbpU3YUYeqCZ g WYEvaROOvC6dvfvii1ufarfjH hIjJNIhDJx3QWe9WUFsbFlsIq WnJPU1OnE5LET5kEXocI7sxIw n repiqZ5uLli+CBE9jPWhrQTLT Z7gJhrbrMB+JUEsICF7oShxUU pyAHTvtF9mNVInY9l6PwPuXnN 1 OHlxI3XrkrA6HMUqpHVuSEIsi QEPrF7tsguqu8bmhtgzFaDmKX RrYJi7BRk9DZYwlMgyAvKwOGW 0 GvT4FXP5aGTtvS1yhVdjmkotg G9wOyc+FukisIcdFMW1UYx7C7 UyZkj6QCAsaWynTA0pjWCpEGx u Um7wvZblmExjJR6vKSLgygrmq 662WqVaw3snKJRskSCmWXybME K4G85dk4V9EVGhPOXqBKS3dUM 4 aI2rlNpxazihtVFswQidtgMku WsgUIogWPjtW983YCSmoRnhMy QuOHg3R1KoCbd6IZIpvQuaDJ5 n cYIqKYroQw4vuAjzvAcaHK9sF UEpyxcno133BhIdw2rqXGZqsP LrNIupEXG4C94he6O0FIPxJUE w YPG2pUB8aV9icLiosiztdWPge XtqviDfhOfjHEkiHLnnK833OW YfxWdaZvLnaYu4P0RyYnk7SNS z jOnwYR8nkJChKKhaMv2itKcdq TagHF5tFLAlbyuul058KkZsr3 roLWYwmMEdJWagCWE8X73dp1D 6 QBElBYXbDMQ8eZY1rX4ktXvuh jogbGVmdDsgdmVydGljYWwtYW apN944YTEeqCvuZhKubUpawfD g EEwoURe7G4EvQuwghIR+PC90Y AGbUG74jZMewPIqd4qflIf4Vg GmWTHuBJG4gUsvMFtnp6VgSAW t Y21ucNOhb5W9NVSlhLcjdOGqV uIkvWJ1pJ1hAPasaufbt7kpbp asLvnok7lwqs03aI90D27fAGy p YOEvETDhLCDjEXQeiByoty5ab G9wIi8+WPUmwPK6mVL8yS7nAF YlIlB9NSklE084DiOzzOXgUjr j r0fga0ogrVq6JjU4HCCivnZvy RlsSDO2j3LlZq22J50oGOerPO EbWCAbLAShNOBdhBbgqs6csQ4 w Ii8+AOLipPZ0nXA4hL5kAcWfF eX8VBjpN265UiOhhJJaWnhhQ0 0bT3GhpEP+EVDzNlq9LTXogXs s SO2yjEHzCCetXc9dPZU7EvTrR wQiXQgmK0OxOZJvtiddniihjC O8YTXeQORbrV69Bo1urUtfDVP w cJJPhW7vyyqye7tsfahvSvNtO QHbGNx7KEv4YJZdoFfdYrOdKE V8GzA1UNA2qYOejK9gzNwnsen g kD5rL1OgDQXrvkxmNj93kD9qV dGgYvA8KIahXpa+VEFOTkVSLC GVO36PLZOjMJhsmUG+PHRkIHN 0 tRaoUSozPUKnoZ7dAMXgB4z7T uAfVbP4UQorB5PlDPCrhdbcIj 42eR6vMyIkMtQ1UNooM3GpjrT 6 ZNBhoVQyOCczBJO8K54rj8K1K CWwITWcRAO7fDT3xX9zvAzijs ogbGVmdDsgdmVydGljYWwtYWx p X063KHDnmKeaKwStVvF9FbV5E Al1J2WvQig1JZSyqMxzXU3qyO SjUYhfVt0jwZghiZlfYU0eDIL p mghwWQHvbY8rPONisYCcsWvhU X5zAHXwmvliw571FgUsLLE0SB VqhVWeK9ZfqL8hDmHiVAZzDJT w W7VcxSIpMNnwW371VUonCeB0O ZWfarCzU1DkPLJmmSscIpV6k0 M9Bh44UIOBOARlpeirdAD+PHR k FSC2mMpfKUxpLPXcmR4dKNRpP 2q3GsAcUmK2KMwnY1JlHUMeji jyXf00mA0fKxWjQbK5DYkbO7J v rrV3YGDuzUAqJJwtYHO2Z44js 5A8KTXdMQMtQPB6zRM2xL0ncN lnbjogbGVmdDsgdmVydGljYWw t VIxmY472MCVqyFikDl4unCX4X 4IpNim3IWJpzXkaMS6ziODpAV xiCs9ftQlwxHqoXF2wKWOfhio w RRBseA0aYDVohIMttHfgWV5pC LAtkrfhd204XwRsAJB1NGFyxA NxM2LotE9rFaPsYKFpTTBjF7P l uQIgKOgsF567OUmjJyJ9RHBrg sHlF2TsRYFjuRknLaV7c6L8Ur 4EdOGhYDWcPP17TK88VY06N7B y PjwvdGFibGU+PHRhYmxlIHdpZ MVpMXnuELSkZdXizRauVT7dOn 2uPMRoCDKqjYvhwUAdUtXvg1e s LNRjHGkrWE1jjEguZ5CgvGW2A JXit4a5Fi88K19sR9ThfXP+PG CxsJR5gEC5kD9rNuJfRsN8CWn p H774YpQcnGHvHrnhw7qma9fgt Kx2RgDuNFCgbwNqlRvhAZK4c3 GfOn56Y14rQPzzHPGpSLByGSY i CQQwvQuauq8twA5gHp2+PGNvb RB5nTI6gV3gMrArCwA0ZCvkW6 97RjTlcLRiFmtzS29uI5YmgOS + UTWbTuz9OFTqfMppBW4cjIIqU TeuZp1qGEG4VsSeHpKuLEkiB3 CfHMNzthsmjiqmfGY0BXAdNFO w uD91Ds1wrFhwZf7cBAGnQKU2A IVjyIRzW7QofT0cFgUmHUZrFG ZgJ0OnhIIvDQudW704UHkwImV 7 VTGnsfYpS1UvPCScqWjaBbJ6w 9S9Ri3IoPbndOHbAW6yVcFgLG j8B2LlRue7KRXziOciBS7msXU k YYbaSa9neCjhkIytRF2qYFYzk lbss232CsOjg5eqCAUwoEYoTA fxGCS9E65nu1T6POPcFECuKQR 7 qNA7cU8tgDuxlybegVLbrWzpu zCppQsgJPrpJRkqE107NKArdL iwMoFFHwq1C5ZeKcp6AFTklRw s WJ6ztDPwXNigCd7ucWojuXkbK S4cMJNklpvfh154PwIwi7ruSE TkcORnXEcyAQI4A34oo4W3ABZ w KDQeUVL1aBC9lP3dzOkucvtps GVmdDsgdmVydGljYWwtYWxpZ2 30AOIzgVhbBi7IUwk7B9PaQum 0 VRHtdUowHK9wfZTtSItbXx1cw PuurBkeZC7yIMIcluilm630Mx Xfl4zhOXNtyQVlUWjkIUS2Y38 s o8L7TVTpMFEnZPS5jIA6aX3zo GlnbjogbGVmdDsgdmVydGljYW erZTaaF478YRDhuDhuSiSltMA y OjwvdGQ+XI75wn46F0ScVbflY bb2CKDiOYN7uFD0zC8jGJLcOU nxd3H1gXY4Z3SomgNnob0ae5q s YXBzZTog (more content not included)... [facility] Nursing Assessment - Woundon 03-06-2023 Nursing Assessment - Wound [id number]#1.00CD:1 27 [facility] Nursing Note - Woundon 03-06 Nursing Note - Wound [id number]#1.00CD:1 27 [facility] Consent for Procedure/Surger yon 03-04-2023 Consent for Procedure/Surgery [id number]#1.00CD:1 27 [facility] Consent for Treatmenton Consent for Treatment [id number]#1.00CD:12 7 [facility] Correspondence - Woundon Correspondence - Wound [id number]#1.00CD:1 27 [facility] Multi-Wound Charton 03-04-20 Multi-Wound Chart [id number]#1.00CD:1 27 [facility] Physician Orderon 03-04-2023 Physician Order [id number]#1.00CD:1 27 [facility] Procedure - Woundon 03-04-20 Procedure - Wound [id number]#1.00CD:1 27 [facility] Progress Note - Woundon Progress Note - Wound [id number]#1.00CD:1 27 [facility] Coding Summary.on 02-27-2023 Coding Summary. CD:[id number] Ww+PG hlYWQ+ZK9VVLQxA77nnWOhxQ1 aA5NJEKwTGzqkJKWVOBlDHgQn dhVvFT7ynVVzQTUg IC8+CE8uTBTeGbdevOSch6E7k UT2P71dus9fVNbgdZA8GQVgRn Ypymlyb5jkgPi9DHeoXdkhKjX t YVWwiJ05MEI7rL10Da74kZSru AOqx2cblPd6QqMtMUPeHGP8xA ccCZxuo6EpJSAmB80udNCrn8N 6 HRFwxYqwwBXqAmNauHT3pC1yY Guczyaog9opbuxbLzm0oa22jD Csy0S3rSO9G4HaywH7HAGnoRA g JtyeuYDRgC8rntmoj1qvkzmiN dAvWUWnZAf8QGc2BCFoxStxQh CcBQ16KVM2KBZrsuUmZ9ZjCPS s cNdfLiC6v1R0Hw2ER0FXHzwqE 1VNTUFSWTwvdGQ+WS24wz41U6 WhNppyGmw0LJMlDYU6qLN3bE9 n PZBeKQqrj3O3iGU2D9PfgjIsz p4av2azCPZuRJkqB21tdWPhe7 B4JFNznIA2BENxgYscGnZzaY6 3 Oyc+TULpkXefj5MzYmpyb9izp 1grrZs5WejtOUUswrVpiVprAX B8y8HsRf8oNQUopHY4uFN6fT6 i PuZbYyB2PRfjI430NyApoBQmD bynV90wF8PmvDG+ISCkRln0EF DpeMchKY0hY8QgEPGkquqqrFW m hQjiDO8vHEQhaslsODWwxO8yB GMiJ3z4MjIpDmN9BRatT5RvEU BbucmiYk14dB7wFpNzHqS2NXr u E2QgeyA9THMzyBRjROlxGRS4B 05ev8R3VGDiDGXmZJA4oNN3cL 1hbGlnbjogbGVmdDsgdmVydGl j XKsuQNqsW253NOYtuBgaNqGnM GluZyBEYXRlOiAgMDMvMzAvMj AyMzwvdGQ+YWOnGKT0oCojRLW n hITtWRwkSk3xvJrovMdwWY9qM ZNvcghrQZMxmS1hOHWodLVuxY ugHJ0sBCMjwggcx871MoRnVQA 0 UEEmwPFyP7NlhB7wBbNzLGQnM QZnO6LdeTNtQNivS202RMhmEp Q8APRmawWsO8MiSOHnkTbcPjD 0 p5X1Qg3Hs5UlaarcO9EbbVHjF jAcEgtvMNa5M2SnMkguuFW+PC 25VOOnMW92BUe3PEV8mYwrVUf i XETxH6KjtP1iElNrLPZbPTKiY yc+PHRhYmxlIHdpZHRoPScxMD OvPhSujPdiHT5qZy5pCGFsKEI v zUooyISmHpKbd6pvMVSwYItlG W9ibLibA8NadAY7YQHjf0l9Un 61I37tW0VrqOQ+BQXpwDL4dKQ 0 yX2fXiJcFdW4UKafK072IbCva MNyMywid4wif0ozgMq9OgN0OS JkhrEhyLrsYOS0u5GtFf64M28 s IHdpZHRoPSIxNSUiIHZhbGlnb c9qfI4cLa1+GIZnfRJ8dZP1sM 4qMxFxUqY9RXiqC970QlOqmIS v Dubzg0yoi4vwdCp6BeZqBLZvm nKcuXgyOPT9n6DdCs00Y0NpjP gts6LyKra1at05fVKla6T4yNX 9 X8TxBIOmcuhdjFSraOzmDF0yV ZRmwegcSKQopA1xYMQnU4s5Sv WuNmE2TMcvB3RxkmL8RTFfnWG g PZEusGTTyG5wlafln5evwlocQ eFfJWBzOCw6QHf8LUQwuSnpAm XzISZ9OuV9QHZ3iDUswF2zoQs n vjbksY8rQep+BHZ3lRUphWSWI C5nVuzozVL+VGKjPGI8jEkoAV prXKIjrJ4nTAHjI0e0AgMoHsZ 1 GJupJ7RtjkF4YBKqnADmENVgw FIKuI9avpire7kbijptMaThIL DdMIb3XMt8PCJiqLugVuDoTWX 0 ZwT7AMH9oQWwjW5jiBfthbjkn G9wOyc+YmokxXniDCD1OLj5B2 HzDel5UBTvyQmoKM8vhYGcMMu u Io8daMhiqDpdOG9fHJEzmcyuc 848DgRdo8smTHYffQUgDYvpYZ M6S03mo3E6PTVxPRRsAUT5qDY 4 cO9lgGgpoocexCGmgCmghhQfr VlkTCvoDKyeL232QHNedBepZx BeLIg3E4UmJcx9HACoyEsmLT5 n qFUxRHqwCn1nsVyjrRhaJD4dR AQthtsth201KuUgp1gqWUSttL LnWRjxBFU5X84vq4D4VWSuOQV w KCL0iER4aJ1weUfsrookjSEvi OxsjpKdxInnSCiuIKteE804OH ZluGlcMnAnjQr7N8RpIse1WLW z nWmhDQ4beTHvHEbvBu5cwNjwt MrhEB4zZOXhnrcel620GwTka5 icJGWjqVQyXXwaNGK8H20wc3X 6 LMUyNHJcBUZ5kNL6qH1laRgnv jogbGVmdDsgdmVydGljYWwtYW flH071GOBpkDahBoVjlQpkkvR g RJllPVx0Y2HxRasufQD+PC90Y WKmBL14uOHpbIWjs9udcHm8Af ThXXGrQUP1jOghSXzar4DnLHA t T72uwLHwt4D3XOZxxMbdgANtQ fXooKO8mW4vXCjtagzkd0rnxh puIidgl3unnb64aW18B59sJOk p SLJtNXTkHRNxXBIujOkijq0du G9wIi8+TKRgkOU8xBD2eQ7dTO LwGsM0TCqhX606CiCdaKLoKbi j i6vgb5jtfCi1IlN0CBGegtBfl QrzSEU9o5UrJp37S41vRCzwVL PnQEXoKWJvUEVuuQppdy1ztV8 w Ii8+OFRywTF6sSV9vH6yFuGbN aN1JSfdL211EkIijUYfQlsiB8 0fP9FwtFW+RSRcQve3OZAtvYl s VW2ztGQrMShjUq9mRUH1MrQwY pGvALfqE8AvDWDflmkfhsqsvS F0MBLmTULyiH12Pv5byEnmGAN w rBQLoV4qhfaae1hyrvofBcWwF EBfPWb6FDp2ODRdhQsxBaGjVO R6GrV9BTI0yZGkrA1ltUdeokk g qP8lJ9XyTLQxkmalOy53vI7lT tIfBrM4LFddUdc+VEFOTkVSLC XPU44MBZEuSUyqwOA+PHRkIHN 0 eVmwYUcyZNHyuC0qNSXfQ8e7D yGaFcN4RNazW0KdXTSbcbmlOt 51hW7cKmYqOrW4YZviP0PadwM 6 VWVbyCNxXSufWQV5M80bj8A7N VZnSUDaVIX1jIJ7nZ5jlZatff ogbGVmdDsgdmVydGljYWwtYWx p I950LIIrnZwaCnVtOtN8WyX2C Cv5P6PcQip9HGZiyHneLF5xsV DjCVymAi7ajIvkaPpsOK4kLRO p vqljSMModV1xJOCkmVLmhEzoT D2dRQQsxgvzk755XuFfOCV6OO BukRNxW6XwiU1eCcBsQUMuDKV w J7EfeXIgPTnwP306KLdeAfD1Q EDaoaPrS1QrRZMumSxdPcT6t1 R9Gj20GHHSTUWykgddhRM+PHR k QXQ2iIfbOFpcWMCgrR3lLXKuX 1w4CxMlJpF4PBauV2CbECUxhm mjWa26uY2oBlEvYtY7ONobK8V v keR1PMJljJTdVEfkHHR0S14oz 5E4WQAaYDDjUAQ1mGQ8dN4xyL lnbjogbGVmdDsgdmVydGljYWw t CMkyN555MONmjHzkMs3jjCW7T 6EfNzt9CDYzbInwLN3avZWyMG crFw0isDwjrJooXI8xPBYswwo w DLEmkJ7cWQQuuICpfXymJM4rP XHuvmnaw616OqEcDYV1WOKehQ KzB7IrlA3uUtMfSQObOVFvS5N l bVVxFTabD347YHilAeT5TAOxt vRjR0CdZGYgtJfjBwW7p7L3Iz 1DzEAyZAMdVN07DP04XE11J3E y PjwvdGFibGU+PHRhYmxlIHdpZ XOaKBawSGJvWhFolCkqSG7iPl 9nFPOkZQPioZvytSPlMpXux5p s FGWpEOivZT7lgHkvA4WomCZ5T ZFve3c4Mz52S29zU8IfzEQ+PG RliNM4jXP5iV1rSlMyJsL3WTv p Z318TdBiuCXzHflkf3oam4dgd Su0DzTlDVWoelWmiOoiKER1s3 LfEf61C64bVNcfGFYeEKTjDBR i ERQemMtdsw0miS4dMx9+PGNvb KF1vHY9kW1bHeZgKuY9WGhkY3 15LhPhdAKpIgbhY99uT4VerPA + AUUvUsc4OTZmnHlkRJ9ayFYfU NjfHg9nXFN1MhRpLgAdVKcpB4 PgBRPjjpvqnxxgtQD9LMLzBWD w qX22Kt7oqBdhXq0bMNImUJJ5E UBciSUhY6ZfzO2eMlRzJXBlAN PcO0HtlUIwZNbaR537CBccKuN 7 RAFtibPwJ9LhVZTdcGukYkH7m 7G2Dy5OmRbzaGJgYM1fDuHoEP l0J5GbCph3MMNenHfdZF1qaCA k MPjnUc9nrPxmuGesUH7xONMsa ilge089RjXnv8zxIWXbjIEjRF cyVCE3G37kv4T1ZVAtXGSfSON 7 oWX4jJ3gzXwrhxrsuCXdnPspn tMysKbyRPxxHYqaR147PPHapO xgDoQUAsp8E2TbJuc1WDNzwPl s NQ3jyUUbBUaySz6ytWewbXdlH K0vFYMpiiawm129YiArk3qvRI AvfUFxCOiuUPT3L06tf2T6OXN w CZMuYKB2uWF2uC6reYjfvxeid GVmdDsgdmVydGljYWwtYWxpZ2 80KHRgpZtoJe0QNpx7E3PfKcb 0 ZWIgwMnvYY8faMWrRIyuUz3tv QhrtQlvPS7aGCFfwwbzx531Ki Yem6cuFYTquMHlAHsnZFZ7W52 s a0G5QAMrRLWlBUU5yZV5uF8qu GlnbjogbGVmdDsgdmVydGljYW lvFDohT447ZYXshZaoVwTevFC y OjwvdGQ+OQ04fa92K4BxOzzyL bt8ELMdGML4oZH8iV6oPZYvGZ tcp7Q6kJN5X3IvtbJydy0uz0c s YXBzZTog (more content not included)... [facility] Coding Summary. CD:[id number] Ww+PG hlYWQ+RJ4THEPbB68tnTKlkL8 sT3BBCYvBZseoKTAEJQhXJlKh siBbUL1wjWRvJETr IC8+MG1mKNXgLicrxTIlh7D3u ET8Q35oqf0zAQurrHQ5BFQoWn Ehwrprx1ygiDq4MMoaQnjsNiA t JQMpvX79IAC9rP38Ms71sUVty HRti7lwhJz5ZcUwNDLvNFL6zU knJAiao0GuSQPwL84brDFyc0M 6 QWJcmAkamSQlZjDmlXL6wB5jG Dsspyfux7yfpraaUrb6it51rC Yby2T8pCT2B2NhviG8SMObvNU g HduftXSAtF6ehawvv7rsagzuL hSuPGAwSUq9XOw6JBWxyFxuIk LsED35GDT3NIEhagPbJ8UtIWC s dBviYmZ9l1U6Oc8SP6ZRIofyB 1VNTUFSWTwvdGQ+VX57rq07N4 NjJpcxVxr9ZAKfRBQ2yUY5yG5 n JXCaWBmnn5A7eNX7N0ZxcnMrl w8lf4lpTLFbQFuaX18zeYLam2 A0WSUqcFP4ULIfkQihNnSwnP9 3 Oyc+SPPhqQnic6UeQloay1sxz 9btlJa7TtgzFWGukiZnmDuhPX A9g4TwIb2mUYNcvIL6cCF9iP4 i EaLsNhM5VEfzT628NeAirHTiX uhaD00oV9MskDK+JGKrDqt1AG KrrBreRU8nA3ItWTRafrfwnXF m gVlbWF4gQQAjjylnLVXrsJ6oZ KPbK7p3BsMlZlV8WRqkX8FaPM TgsoqoLg72yV9kCaEcWjE0WJa u J5AwqhR0BXMidFRpUQtdEMM9Y 35yj4B6JVWuLOWnQMH9bBH0aR 1hbGlnbjogbGVmdDsgdmVydGl j VHbzOYrbH084PNIllMreRqJmZ GluZyBEYXRlOiAgMDMvMzAvMj AyMzwvdGQ+SPAqUOZ3nNnbNWX n iRXuOJsmGp0smIeyaGwsSI4qT TKdakckYNHztF7gKIGhtGZhhO voON0cSMCsfvftt679QmMcDEH 0 LQAchPFqK4VkpG6yJtQwPFRfK QMiG5FkqPKhMQjbC831LNwhKx E9DDTxfbZeN8IeGIXvuQutClP 0 y3S5Fi9Hf2QbkcsaK2QvuFMuV mNvPrrsFRv9F9DuKuvcuQU+PC 71SJMlVE39VTi8CRV0vKtuSQd i ENCiN7UghE7lYiXgTCXgWHWkC yc+PHRhYmxlIHdpZHRoPScxMD XwKvAihTmkHD6fGt8zSCMdZZK v dOrroMLpXlErf7hiQIPqBQrlR S6uaLksQ1RojRC4AFRja2v1Jp 08H25eH0JypNS+JAKtpLN2xAH 0 dF2oPfOhZpE1UObtM362WzKmk AQzTdacl7hjk8tgtMv6ZzB4JQ BescXafQzhBLJ9l8NxJx37P38 s IHdpZHRoPSIxNSUiIHZhbGlnb v7ibD7kUg9+PXYlaKF3nYX8vY 6kTtFqPsP1XNcoE626CnCftCT v Mifsw3vlf4abqGc4TiVyTJJyh wEtyInmAPQ4u4JxBv68D5HedY ual3PhAyb5rs98mLGpc7M2mMD 9 U9XyBUHxrpefhNJcsFhhEX4mH QAthxvrGHItxS7qYDWsV3x1Mf MwHpA9LAuuD3CngwR6WPAwcKN g XCGstMLYuX0btciah4spfairG sLhGKXzYQq2CTw6AELpbLodBb SzCKY6EfS4VDW7nIHwzR1oyWm n tjjvtV2pNmc+ZCQ2iZGmiRYID X6mDbymmWB+FNCcIBC0sYxxAT ciCLYskA3rQXCdR2n0AzKeDgG 1 TXqwS3XjatP9DTGjmSVpFQWvn NEEbI2xdhegz1euagjeVyPrBH SvQOt8SBq7VHAlqGxtAvMsZWB 0 OjI1UBB3tAXooM1noWjphqbar G9wOyc+GrzicShsRIK1REu7T8 QwTgs4YUJxxZvbYC0pwYTfWJf u Sd5yaWsmkSzrSQ9xAXStucthz 347FaNzs4dlNMFzuLEwCCgkLM Q2N92qi8L5SROdMZRdZNS0hUI 4 uW4qkBlxdurdsRCbrJcglhPmj HuiPSfbATxzZ219YYGlcVwwCy IcLSa9T3LdCaj4ASEzdSmkUD2 n gFNdVXrbUk2jmImrcUxvOQ8tE ZQacytph449YpOok4qoBKAetM FuPVwkRFW4M25zc5I6YXWoXFA w AYN5pJU6uI6tyCflitgjfKQni JuacmUnmPcsZYxgTXepW490WY JypMhjScRkrFj3P6GtMjo5LKI z rWqtWN3fqVKtDVrfEs8fiCtcl VznEY3qWAUwfolfp215DlHhw1 svZRSxlYYoYBorOQD7L04dy6N 6 CPQhVJAvGUY3gIV2nQ4uySgmn jogbGVmdDsgdmVydGljYWwtYW etO731LEYdmGfxLjDcgAhlueY g BLorDXx7N8FcBgngxTF+PC90Y CFyZX83hHExnSMol7hylXb4Lm NeWDTdWUF9eHomQUlni9UwUYU t V68xzBOyf6M4SRPqhBdzcKIaL bOezDT4fI0fBExnzwnyk5brxs iaCnric4qigx83iJ92E63fMFe p NKZtQUQzHBPnKQUobVwrkv6zm G9wIi8+LRLwmYX8nHQ7dE3lAI PbLtO7MTwsT487ZlAqrLVkRnr j b4wpc8kamEi4EoD1LBEatcBah NbyNQA7d7ThVe95Z97hOXutQG PkFKGsFICmWAHhpMxnkk0siF8 w Ii8+LNBgxUB3wQA5rI9mQxRiG tB6VSihN253GoRmgOYuSwbnE4 1fO7BggSX+KSHuRpz0AROvcLq s WV9soSGqMElqOj7lMMU0VjAzF xFmAEfbH2MmBRQijbgmadrmyC C3QUHvCRHviV73Hl3lfQavBRD w vPZAmI5uqqpai9xlylzuXgKpN JUoPHb0LHo6FIZgmEdzVqAkDW Z3OwQ7QWO8zFHmfJ7lrLteedq g pD7pW3ScNAOhgnhaHi67eY6iH mVlOeG7LJqmCea+VEFOTkVSLC BNK44YHKSfWMevaXC+PHRkIHN 0 gYbhYLzoQQSqfN3nMNZvV1l0O fScKfA5EDfjQ4HpGQWvsqaoQy 84gR8hGlPzIxU9KMtdL0BjlnG 6 YVBwzPAhOOkdHYX0Z62ak5P0C ZWfKGJhAXX2fPN5wW5jqXuiwg ogbGVmdDsgdmVydGljYWwtYWx p M291OJUeiNkaEwDxRwF6ElD5K Yx5B7OdKsn3XOHzdPexPT1imD HxGTjfFd3guBueqBsuKZ6vUOT p dyduJFGbyT1iHPQbxCFirLzmK W6gJYPcdxnlj954SpAiGAS3IU FzbHPdG5DdnP8gVsFcREBtGRU w N8HyjFSeANtoN753HOqqIaI2Z AMtkeZdN1WdIYXmyMvhBlX1u2 U3Qe98MBXBJXCmleiwxGU+PHR k OCP6rXkrXEriMAUadO9hAEAdL 4n0EuHuMiJ1KJpkJ0KpBXYdix ktIy81hK9oAeBjBdJ2SArkE9Q v rvO6PHQqwJRuXHcbCCN4M90ck 0Q9ELZzCQWwTPR1eWN9eH8jfN lnbjogbGVmdDsgdmVydGljYWw t FRnoN049CNLsdFcfKm4ekCZ3G 6QuMhe6ZGJzjIyxKJ0sbYNqYJ ifHg0ofMejlBqyHF2oBFEudti w BIUnfW9wSZGbrGUkrMdgXN2oC ZInjburb831JxJrZWS4EXUocR WzF5QmmJ5iNkFhLNYoTAAoF4X l pHNmWMekH581NHkxUhL7REHdt vQkX1CzPSRnmOxkXcM7d9A1Nc 9KvZGcEKXtCV08FN24WI76P9E y PjwvdGFibGU+PHRhYmxlIHdpZ SSqDLwjHVDpLhLwtOlhLA4mLl 9rSBQuEBJjpBgbrWLrPyWcg6r s ZKFiCXqzFV3mwLmxM4WbeNZ1P BFyf2a6Ur07I03xC4XrkXX+PG CjwBD8hDL0oB4wCnMgCeF0WYp p H693YkSklTPzClbhn9hrs5bnp Cu0AkDvYZNrzpLwfGcaNXA5y9 CfMj88J15eIMogNRYbLFCeZAY i WGBwuPxrjh3vqT0kMn9+PGNvb QB7cKS3qC0eNlNnPlD2SJnxL1 69WlAjlZLwYlccT85jJ3VnhWV + ZGJuXtk6YBLizWpdJF0onNBuF JctWl4dAJP8MhToYjWuXYjmP2 XlUPIlygiyimobrZL8OABoPRG w lI59Ih1kwRjdTr3eSMFuMBU5B YZwbKYjC3JwrI8rGfKlDXCfSO GmK9VieGRhDOwaP547USmfFsY 7 USAmcrKoX8IkKEUwzSvhMtB0l 9K5Jz5AdMfrnDFiDD9hSsJtDK b3D8DoNle8WXTvpUqyGB6xvTP k EVlnQg8ycAiwfOcuJY5fYSXpc agmc782DgAgk0bhJZZxfEIkFW wnZLN5G75ei8Z6FOFjRPFuXCU 7 hEM1oM8chYuwjijysEMqwJwhu gVvwKmdJBiuJDpzF267OAEtfZ qcNfNBJdd6H1OnQqb6MOYdnYa s YC4gbZQcSHfrZe0fuRuouTzdT Y1zEQDnwsgrr568XmIkb1fdBP KveUFjCJklHCK3N65ng1L6NDZ w EFBuZZG8zXP7yR4ysBxgnasez GVmdDsgdmVydGljYWwtYWxpZ2 14FHKkdDepEf6OHid5C4ImNjj 0 IVHyoUrrBY7rtERjAYmeFv8zy QuuhMyvLO3wVEUkudsjh335Xh Zud9ejYBAvwDRtXHvuUCI2L08 s a4Q2RRIlMPSuLXZ8nQJ7sE8uy GlnbjogbGVmdDsgdmVydGljYW htNZqwK921KASmgDrkEhVnqOQ y OjwvdGQ+JR08ov02O3QcSvgrP qd9WOHyHLY9lOC2oI6kFLDiKO gin5H6yLA0J9MigkGhou2ql7r s YXBzZTog (more content not included)... Normal [facility] US venous duplex [place] [address] Ultrasound Report Signed Patient: Yousif Aguilar MR#: [id number] 875 : 1945 Acct:[id number] Age/Sex: 77 / M ADM Date: 02/27/23 Loc: Room: Type: [facility] Attending Dr: Perlita Reno RADIO REPAIRER-C Ordering Provider: Perlita Reno APRN Date of [...] Lonnie Vasquez MD02/27/2023 4:25 PM Dictation Location: [place] [address] Tech: Maureen Denis Transcribed By: TONE 02/27/231624 Dictated By: Lonnie Vasquez MD 02/27/231623 Signed By: 02/27/231624 [facility] Coding Summary.on 02-26-2023 Coding Summary. CD:[id number] Ww+PG hlYWQ+HQ9HDRBtA65zdZTozS1 yO6WNTNiEDzhgRWCVXFsHMnEl rcMiSF7gvYPrVTGx IC8+KA8sQZKvZrgizOChu1N1y QU2A16ogt1lPScvfGV6XYXiHq Evlwtnd3eeqKp2TFxnPnguKrA t SXSluM12ZZZ5rZ54Yf24oSQfe NUli4snsGv0KeKeTSTnTZG1hS xwCPygo2CbWNZnL75vyZBrx2U 6 BNKrsCurvGEoReDdgOR1oZ6nU Blbticcb7vovskdAnr4hr44dA Jtl8O0nPZ1F5LcpoO8SXTkmWH g MfutjSEVnL0cexozm4flmyddZ nWzUOKdITw9ATn7CHSyyAjnOc KaIU03BFM4QTKfceFrD1OvFGY s uPhoVyD0m9S2Ao7FW2CRBwrxH 1VNTUFSWTwvdGQ+KI25kv87G0 JvWxfnOgk3FIFnXUB6qHO7eJ4 n HLNuBZwbi5S1mLJ6Z9ZhnwAig t3nv8lwTYCsNMoqB21krALxq9 E5QKRksOM7WYAquDvfJoFcoG6 3 Oyc+CYYahGymb8YjMimvh0nld 1edzGe0LomjYGHzpqPhcGhsEN J8v0WtId2wJGLyhIN5hXI9tZ3 i SiMqZuC8PBrqO197ChRxuRWyS ofwP88sS0JrbNF+VVPcQsq3TU UgdXynSK4pD1ByBCJxmlrkmCY m cFgvNB4dBQGiwjpgGCXcpU8bW SKzD4t6ZtEwNjZ6OGklT4PdPI UtoxazLg31dM6lTjPxMrL5XSr u N1RmyiY7RXDlbWGdEGhvJEI9F 65xf6I5LMGbUJCaXAH8eNY2pX 1hbGlnbjogbGVmdDsgdmVydGl j HKsoGQcvE898HSQdlSaeWgQnP GluZyBEYXRlOiAgMDMvMjkvMj AyMzwvdGQ+JLYyXUZ0iFeoTUK n hRJaHOqzLa0asMbbxKjpEJ5cP JRivooyRJPxlZ9yZWOwjMAsmM lrIZ3sYIGtqtexy813LnFmTGI 0 GMZskDSgS0WcoY1xWvEbVKJiQ WWzK7InkPHlVVtvG588DQhhFc R2BRKuzpKxG5AhCGIwsPouAkU 0 n2Z4Tg9Vq2EueivwI5PzkLZrQ mSkUgmzCKz2T0KrPhejmUP+PC 88BINqGD03RMf4NPF4mCfzQNz i VSTiR0KfbD8zCwTvHABdSMOwB yc+PHRhYmxlIHdpZHRoPScxMD LcZmVtaZrzKD6oZw1qXTAfLPA v hZvrkPTmRxCyk2adSFAtABsqA J9nqMjwY0LciDO7ZRKdw4i7Ch 06F82nE9RsjHS+XXRoiXQ1lHS 0 iZ8uZxTtHyO9GMvdM969AuLcd LOnClvin4aue7kmdRc5HsX7TS XiqzQclXiiGQK9e5RpCv24U98 s IHdpZHRoPSIxNSUiIHZhbGlnb t6nvW4sJk4+BWBaiTF2zQR0nV 1hXrOsIpH4ZEksY753EdElkYT v Mvdxt0loy2npaCu2NxOsVYIrv vLriPpxPOQ3h5SfUm17V3TzpP yeo4IuHye6ta74qMQwf1Z9mLF 9 Q7XgKAFivmpdfSDhfXciQJ3eL ORqebmvJMDctB4lRMJxH8s7Qk IsCeZ4ORqfF0LcgtE2RLUgzIZ g RNMjqVYQlW4vopwig5ycziaxI yTzHVApKZr2ERl5VGZaaPxdJs UsAQF9JxQ9OZK0wFXblL4riXu n uaxczY8tSbt+RVB0wNNahMVZO O6dFxjmdXL+AIQoZQV3cTogGF ibOIMgnN5cMTUvY1m2MfDrOfG 1 TKlgS0LoqvI8QXAioQXyRLTdz UVQvE3dueodb0huwkupFoXwGK WiHNq1XQz0KPIieSwwLpRbIIB 0 OfP2XXU1fOOerQ9wqCajvrjbl G9wOyc+CtsqxFtcOSU8AGa3A1 WoRjg1BYTarSiuDQ4ghYYgPKi u Ld8tbHlhuEteFC8eUWOhmqsnc 308RlTis4asIDSieZSmWJpdSU V2D15oc7J8ZCLdVKBuTYC4iHT 4 aI6tePqxanbbiXLojHebpoPni EeyCOfhEKniG693WXHfoVsxVx UuBRn3G2JhRta1DSCylYbiFY6 n cPVmYTvwSu5lhTwpsXawCX3xH GSbmaohi088ZiTzk2uiFUStsE AdXYadMGM6D16fk2X3MSDsTZJ w JEQ1qWO3cD4qoHcnlmxmzDCac NxuwrFraTbxDCssTNhrO088DZ VhuUslSfMcwLt4I5VqIar1ERR z jOnhJR2rsZMxMMdqGb4thZffx AsfJY0xFCShvokhu900MvRng9 tvNRKrmRNyTWwyHRB0E37pv5C 6 BBSiSLWdANU1lHP7tX7clAiud jogbGVmdDsgdmVydGljYWwtYW luZ634GNLhkVpzGrFlgLkmlkL g LNcuCXo1Q8MiUdgyeCN+PC90Y LMrIX59aAGfyKOar8yxjSb1Cy YyCZCgDFC1bOwcTNjyz7TcWGL t R76kcNPlc5G4ALEuqIarzLLuL uKjhPR2yO6tIAngvrlap2ahxp cgEtcxb2qfiu49cC43X83qCUw p FDNrENJnBAVpBNRrgIfmgt4iz G9wIi8+XQNsfVH0xEF6tW0cXD WdQuW3DXrbG236FwExrGWbGdj j x7usa4dabAf8YbA2RIXnvsSkq MhvFRZ7u7FoHb36L53bJYefIU ToKNLmEHVgIZDwyNgalb5yaG0 w Ii8+YBQqyHA0nUS0pK4nErBkX qU7YDlqO804RnJhgIZsXrlhW1 4qP0EpuMU+VANyBqx4TPKelIl s QT5uaMJeXMtpQw0fVLW0AiMbR kMpDDjzA5FrMNZodtoorjgxjL H8PRCvAUQnyR00Qd7xsQhqBZH w qCXIwV6nqxmui8tftgfcGgYpG JCbYSh1NHv8NITeeLrcMbXhBJ X5OiU8PDT8nEFvhZ8jxEqhart g tW1jS9KoTUCpdxseCj51hQ1fF vQaVsL7PQlxGed+VEFOTkVSLC VCX03HYHIiFIjbhEC+PHRkIHN 0 gVmwLVigYOHezC1zYKUnE6l1D hEyTuL2DTkaX0WiWPNbriihBt 54gN9cRvUoVoF0VYcdZ5FirmK 6 GIYnxPDrMMiqVME1P89ww3G3O RCdOLBnJZD7aCZ5xU9ncCdbfc ogbGVmdDsgdmVydGljYWwtYWx p P342DGXchHpwHwUsAhO6OvA4E Ji5F7AbFns2MZTeuMmxOB4kfB MnPIlrCk9fhLkrlBbqAF8hPYD p msieCDGvwQ3pEKRsrBOuoVnnJ K4fFFGeymowj126QhUgWOS6ZG BymHXnW2SysY0kXlVfXAOvEAY w C8IcrFNfSMlbV388SUujZaF3B IFngjOwT1VgFMGiuHnzGdU9c2 V7Ss81HYVPVXSkhujhfUI+PHR k TLR8qCcbFPveZOPxtL9jXUZkL 8t8EeWcJjR8INraN9CfXGRerg ruVr77vH1oHsJjLfD4LBnlG1R v hbS3NDCpmUTkPDfwHJX0I94hz 6T7OXCtMJXzHKE9jRS1yO6cpU lnbjogbGVmdDsgdmVydGljYWw t SZwjC601AIDxlNycQj6blVJ0P 4LoXyp4KFHjjYhxWM6lhMClCM xoJt2vcUnocLiwMO9lSURsafv w JZHnrR2kAROnrDDueHaeMA4sX JAvylsth572ObRkEXN8JQBaiX HuC4KhmW6cDzWaXJAwMVMfU5L l mGDyHDdsC825DZziMjJ0NSWbf qYrO1KrHGEosOufRmS0q2E0Ck 1EuLAiOCJqGO49JG85NH02R7A y PjwvdGFibGU+PHRhYmxlIHdpZ YCgDDsqLFStWyNbpRauVQ5nRk 9aJHGcDVJbzIatnBBbKxXgh9s s PTVhVBakIA1faNgfV4VacOF2O PTpp3v6Cg24P86eC0VndVT+PG FhvKC7tFS1iC4qOxJkXtU6HMz p U930GqTztRKuKlhkz8ims8doq Jm8JyKeKKEsyqVzlPxpPZD4w9 GgYi19I51hDFaiQUImDVHoAYR i LLLhxUfleo8stM0eHg0+PGNvb TC6mNH1xI9zYwBtTeR8UBzpK0 67PrUyhCHrLmkiJ54lD8MafOL + IXTlMfg9NGTumDzjGF0blATbE ZrdQr7gBHC8UaPyYsUwPHemM7 CcOTAfsrcptjlkdQZ7AQXwDGY w rX32Sj6weFjmCa7fNCLlELF9Z ADkrBMxI7PkvT8uTwRdSHRcWP QcD5MjeIDzEPihQ544XDszDzS 7 LCQnctBuM7IhJAZspCpcEyZ8l 7O4Mq5EjThxzVZeSE9iEjUcEF d2G4IcVoq3WDSnmYevJW5gyFL k SKioWx4jaMwiwXzdDZ1yKMVnc uwwt307ZgZpa4lxOUNdhDCjRS dgCZB5S86od9O3ZFQoYULjKHB 7 oER3tJ0ksDycfubphKOzaRzdz tNpsCslQYrwNOgjA364LQYxsU ozEnEEVkh2E1RaQhs9YXKseRg s OV5xaGRqOArdZo8bxBbjcUwmF F5fRYKhtmspp011OtPwh9axPN BqmISzRJqwWPY3B09ka7J3TIV w QJMgHTG5tYP0kK5avNhgafcth GVmdDsgdmVydGljYWwtYWxpZ2 62WMRehYsrQv9KGkp7P2JsCmq 0 IVDkrXdxOJ9iwOPbZPrsIk3cj ZgjcWldFN9nTALgkuylh070Gt Xid1nsCREgqPOnQVkySVY1P52 s y1U7ECGaCTJoIYU7yUD3lT6fb GlnbjogbGVmdDsgdmVydGljYW fgUYrgE445KWIkpEysGjAnsFS y OjwvdGQ+GY12yt61G0EzVwqiK rh6EODpMCW2dCN3sI8gFVNvBN myc6Y0pQO3Y7SdfuBhql1qw6o s YXBzZTog (more content not included)... Normal [facility] Multi-Wound Charton 02-27-20 23 Multi-Wound Chart [id number]#1.00CD:1 27 [facility] Nursing Note - Woundon 02-26 Nursing Note - Wound [id number]#1.00CD:1 27 [facility] Physician Orderon 02-26-2023 Physician Order [id number]#1.00CD:1 27 [facility] Procedure - Woundon 02-27-20 Procedure - Wound [id number]#1.00CD:1 27 [facility] Consent for Treatmenton 01-30 Consent for Treatment [id number]#1.00CD:12 7 [facility] Correspondence - Woundon Correspondence - Wound [id number]#1.00CD:1 27 [facility] Consent for Treatmenton 01-30 Consent for Treatment [id number]#1.00CD:12 7 [facility] Multi-Wound Charton 02-19-20 Multi-Wound Chart [id number]#1.00CD:1 27 [facility] Nursing Assessment - Woundon 02-18-2023 Nursing Assessment - Wound [id number]#1.00CD:1 27 [facility] Nursing Note - Woundon 02-18 Nursing Note - Wound [id number]#1.00CD:12 7 [facility] Physician Orderon 02-18-2023 Physician Order [id number]#1.00CD:12 7 [facility] Procedure - Woundon 02-19-20 Procedure - Wound [id number]#1.00CD:12 7 [facility] Progress Note - Woundon - Progress Note - Wound [id number]#1.00CD:12 7 [facility] Coding Summary.on 02-17-2023 Coding Summary. CD:[id number]:[id number] Gh0bW w+PGhlYWQ+ZK4DFZVxF02awAV crD3mJ2RRJVpCQknrGIXFQYnK YeOsidXdLD7otAEvACXz IC8+KZ4hMQZxUuxbrQCvy8M8b EE4Y28gol0eTOastCP6DSXtLr Suwlodc4emnWd0SXpbIsecJyP t DOZnoN88JPE9xC43Ug96tFHde MBtf7aogLy7YoYtFUCkTGE3zE txSJidc2VnOUOfJ37teHXxm8W 6 ALVltNsxdKYtEfFpoVD9yY7kD Fmiifbyf6ssdfrkLvf6rc42eK Eia9P8cAD6S8DxmxX4GWRnlPR g HeznqEASoC4mxsqzf6pobejfO lLuBBRwBZg6BNf6ZDExcFbqMj KpXB53SWI0YLSeosBvZ6SqKTW s xXyiBnE0a9T5Qi0BS5CRTqzdI 1VNTUFSWTwvdGQ+YP34lv12F8 CdSnbiIou1PKCzNMX4kBG7fC4 n WYYkFWtak5W5iMT7W8RptcAhs v1jx5xxIITqUJwbN33ggWWvh3 P2PSTxgWU6UCVlfEdrFvJpfK5 3 Oyc+DLArdQqrq4GnKebqk6onl 1sztBk8PnbgAOIrffKofZznWX U8c4UjXt6hURShnYO1aFW2yH0 i SxPwRiY2KRztU990SuTfnHGkS lzsH72aW8YwzTY+LOSpJxi3ZE LztOsrCQ5uB1XtXMIqkksezFT m cQigCA5qOEFtysqvJYQzpW2lI VClU1i6DdKpOoS3TCvkM8TmOB ZctytkTy31kX6mHoAxCkK3IZz u S8WxnzK3IGFspYPvCQjqRAU5M 43zz4V4RYRnZLWcBHH2eJY0pQ 1hbGlnbjogbGVmdDsgdmVydGl j BQbwJVtlS747SGFgdCnkStOjM GluZyBEYXRlOiAgMDMvMjAvMj AyMzwvdGQ+VMWkPOS7cUjhXOM n fRRaKNtzNt0gsFlgwVulAN3lB XElejpeHOZleE8iASTmtYJprL hpJX9nMBVzhsves291BiLgNVJ 0 OTBsrFEgA5FhzM6gMuSvEOFoA GCaI3GyjGRoSYsrD767BKjiTq A2AAEqaxGoP0IgRYEbfIueOzW 0 g9T1Nm0No4TvayizF1OshGElI iLbGqblIAk6L0MmTpqwhKO+PC 83IPBkYZ44EBc4UVX5oQxgKEc i XCBfN5XchM4nKdBeZSCuXKPvY yc+PHRhYmxlIHdpZHRoPScxMD YsBuXitOpsXY2jUu8bGGBbQCV v sIhoqCAhJqEep6dtWCVnCMlvU U1tpWydQ4KzaLI2HDOfk0s1Ym 22O49vI9TikBB+MGEboPH5xIE 0 nD1gGcBmMyW8BBitX585EpOkq CTiTzljg2eni9uwdSm0TqV9RR IwjjHepSmmLBJ4s7GsUi84U26 s IHdpZHRoPSIxNSUiIHZhbGlnb r2hzB1uCh7+CWBazXU8tMW1cH 9rUkVsBcO5RDheP211XyEhxBL v Whxam9xfx2aabHt3YhIcOLEeo bIoxAdtHUH9j9NdCs09M9XydF mie4CxKbq0ic11dPWte1L7zPK 9 P8XhLFJqjunujZZtmGeyTF7vC KTlecwdRUKtrE4bDAVoK9a5Lw JfEkY7EGltB0TwrpS7PFWanOV g LTSinYSHaM9qmraxd8doqolcN xKtDSMxDUn1XJg0VUHzzHbuHu JvBUD7JhO5CXE6wKGtxS2jlUo n tdlsfB3gBsu+ZBI8mKKuhBJRG O4rNmqcfVQ+TAYqFYO9qGyvEV euZYWvkK1eWENrT2w2TiPpKbR 1 LSysO5HrpxB6PYKhoSOvVNSdx JNPsO2ckubtb7boebulHbEsLG VxHXc8FQo4HVSnkKzyYcQbRBN 0 ZkY9NZH6yJHmxA6swWbtuqtle G9wOyc+HathfOgjASC0QQx0F8 VpAbv5WWZtdEvmID0ymRQjBBj u Pi8ujQoujUoiZU4cNPRqewdgy 859MrBlu6raSZMqrYDkTGxzKQ I4G22id6H1GDYkHHGzIMT4mGY 4 oZ0bmHniwehgnSBgwUbxsqUgy PshTUxtYOplV901LKEghQdjDb YgVUu7A5GoFmz4DLMinIwjQB1 n tOOqLCtbCr5bmThlpWluAN7pH VBlsuhfe939SaUoy1jzWVStmR KnERcnUUU2W15pl4V4CNZbSPJ w MZH0mJQ3cE5wiLizehbxeAMzw UffazCbhHxgDZslLPuvO232DZ CmcNirLhWntUf5J6XiRyb0UOT z eBhzOK0xfZWkESpuKp1xsQxsk NqgLN0kGSEccrlur875PlTao7 rwRUCazBLzNIrzRDS4S78vx4B 6 DPDgOYCxXFU1uFJ6bG6jfCpvm jogbGVmdDsgdmVydGljYWwtYW kiH653GTVjbAeyLsNfhJiqglW g EQfhXNt5T5LjMalkcKL+PC90Y DMdTT85qIKdlBAwt9drmEh8Un PbETHfFVK8sNjvXKhra3ZfMHD t S11ljUTxc3L2NQVgvDphzKFaZ jCkgIT8rS2eYUmwxqxyr2qpwc qrHuddj4bpkh95aR53S68aPYz p PQOoAWLyNXOiOKRodSwwjy9cu G9wIi8+EHJtoVJ9eHW6mV3nFI CnYbQ7QKhhM747AhYwuZLpTuj j l3pys0gecFo1FxO5MIWidaPww HnbYKP9z0KiUw59L73eGCckLX EvHRUrRDTmPSYbqJljky4khB0 w Ii8+UXZegOB6cKX6tG2xAcBtP qF8EOxeO509WmYiiKRpZywfF9 4dQ3IilIY+JRCsUxo1WIQxeGb s HU0scBFyNUijBv6kMHS5PsZfH qXyLKxgV9BlNGQsccsjgdnppK Q5AOGeGXDlqA06Fn7xyAwtJNV w rQYYlY6lctfdi3jacktaOdIoS AKgSGw6ZSi2TDCdySwwKpKfBF A4OhC1PJG4lOZunS1gsYciqio g gE7uC4ZsOXRmlxksHi75sI2yP nOrMlU8EBbrAdx+VEFOTkVSLC RFC16FPLBxVQlmkJB+PHRkIHN 0 kDaqZDghHROgtA6wEPUrP3b6X hKhRrZ9WHpaZ8HsIKOmicprHk 78rF8pLcEkVoI5LOhaG3MqxqK 6 OHCodXRrCFsmYXC8K25rj2E0A ZApDPBaTSN8nEO7lC0dmRmrtw ogbGVmdDsgdmVydGljYWwtYWx p X783NSKieRymExTzMiI9VyC5R Rz5J8OtNbv2BBMnrWmtFI3klH CtARixQf1euUcndFbiDV3cIFK p wxjqAVOrnQ6gMAZgzUQeaFhuL S8oBEThojkgv604QrWcZPA1OA EpvOCbF5UbhO8eTfYvDCSbUIF w F7RoaFFzIYnaT445XEhmPbB1F RDkhpNlD5JrOQRqgQqjJeV8v3 N4Ad95SHBGUTLxmstfrAJ+PHR k FJB0pTueJYquEODjxQ8nIGNhM 9c4FaIrMgL2FRabA2CtKGGbvn pjWz67gW9ySxHaDhQ9VFbsU8X v zvY1NYRmeUOeRRnlMSO0B64xd 9F3DSBbPZUrLPY7cCD7oY9weA lnbjogbGVmdDsgdmVydGljYWw t ISycA170PTRntNrnKl0tjGX5T 4ZxRcx9AWGhjVfqNC5ftIQcHW gySo4vcCtvgJjeDP6oGADldye w KQBcmW2uTZQabHWljFihZI0oA KStajxgt526BaVdZGA1IYZqyT JwW9KloI5eQiIyHDDtRQMlN2C l lULpYNrzU242SGlpDqX3BGAoq eQxD0LiNAFggRxfRnS1j3K3Gp 9OjBRkQAGvHW10JN00HC91T6K y PjwvdGFibGU+PHRhYmxlIHdpZ BJsQXxnUAGnXqRkoRkpMF0vTa 0aCAHdXLZewAfizSRePhOxl1t s HQRrTYhoBR7swLdjW9VnbYM7G HGsc5f3Ay87X40dY1AwuYP+PG QxiCE8eNG0nO6mSbQzEmC4MPy p S447GzUfyVDxSqzep8dks2vgi Gs0VdRcMXDzafWqzObpBWK7t4 HsDv99E32tTXnrDSPsGGCkWTO i VDRkbEmaia4ryF1nZs3+PGNvb CQ5hFT0gG7eNbRnWgJ6JOqhO9 37PiPglWLmJnbzV60aW9JpjUK + XOEfGpa6IVYkrXgcKS5wvGOhT QneNk6qEZA7ZhBzKtCwRHakE0 YiZNBcwsxstsynhNJ4EXAnSNT w dW51Ff7ovTroGe8mPOQxERL9V UStcXXbQ4EatB2kShIcTTTwLE EuK1WroGPfGOnqQ955BZrvEtW 7 QEXimmRnT9UpWSTzaTyjOlF6u 9W1Ar8NpJrdkVSiFV5tQxOfQU h6W2CzYfu6NWZcjNobYO1azEA k DYhpJa7qyFakjExqFL1dBTGov zbyv984JkVqt1vcJQVewDKrPZ gbXQX6X93ko7O4SMGnBZFcUUE 7 kIA2aW9zbXnkydidlGWznYkkz wIqqPvoSHopBEjiS752AXRvgH efTmECZdd6D4MpIcc6VQWvbAf s KM7pgQRsREnhEh5vhYfzyOowO D6wLSYwmusxi855MhOic8ugOT AhhYXhMTxwKDH9F07wl4E0MVK w UMBhDOE0cIK6yF8yzVxlxpbvj GVmdDsgdmVydGljYWwtYWxpZ2 49GPOyqQsnSv7JCff1A7XtHet 0 TEHzgXbyRS7icBUeCQxpQh9hh UtdbKocBV2wAFKvwjyjq954Gc Mhk8foMIQeaADqOQepLVR6O26 s c5T8PFBkDHFdPWD1iEM6nP8hn GlnbjogbGVmdDsgdmVydGljYW liZVhwM213PMGffQewBbVktWA y OjwvdGQ+EU25by96X0CyOnwuI fu4ASGyHQO6oHI3tN1yUDQrOE zgh5P8zUP1D7NnafBcld3pu4a s YXBz (more content not included)... [facility] Consent for Treatmenton 01-29 Consent for Treatment [id number]#1.00CD:12 7 [facility] Multi-Wound Charton 02-12-20 Multi-Wound Chart [id number]#1.00CD:1 27 [facility] Nursing Assessment - Woundon 02-11-2023 Nursing Assessment - Wound [id number]#1.00CD:1 27 [facility] Nursing Note - Woundon 02-11 Nursing Note - Wound [id number]#1.00CD:1 27 [facility] Physician Orderon 02-11-2023 Physician Order [id number]#1.00CD:1 27 [facility] Procedure - Woundon 02-12-20 Procedure - Wound [id number]#1.00CD:1 27 [facility] Progress Note - Woundon 01-29 Progress Note - Wound [id number]#1.00CD:1 27 [facility] Coding Summary.on 02-10-2023 Coding Summary. CD:[id number] Gh0bW w+PGhlYWQ+XK4ZBFRiW24xpBN niV5bC0JMAFvCDbawCTMWIUwQ YoPxuyRhYT0wvBJcVIQi IC8+PT3jNUGsAkwjoMOyr4J9e JG5N21pbf4uSSsjmUK9AACxXv Jipwolc3mjoKz7IEwvAqhrHiV t HQKhwL00SCC1uT23Wa31nZWlm XHjw1oopQm2QfUyHSKkXLQ6nS khJQuhq2WvEEKiP36xkZLlh0G 6 PACzfBietMSkIoZqsRK0kI7nS Dleyzuxa3ajgxnzNpe6bn57nW Ymh5W0gJW1J3PyxlC9VTMutFN g QmowvMRIuF4jbboaw9uapwaoR zPqAPBiPYt6SDv5XOAwuAgdPy WcHC64BUI8TDClfvBfZ5CqKEY s yBkiMwQ8n5W6Co6DE2BUZeljO 1VNTUFSWTwvdGQ+WO16go38I1 IvPnfvLxc6PDLrLWJ8wQA3aS4 n DYNyTYxsh0H1hLN3W4IivhYvj z9ke9chKYDdBUvdC97vjEWto2 X1AGTebTH8MGSzdHzlApUsfE1 3 Oyc+FCIkxNwgr1YvPflxe0thi 6hunMj1TxdaWTLtozQawEjuQV F7g5HpGe3dZFWunBS9hTR5rX5 i HxHmXbR6FPcdL788UoGzbNNwY epyS57tP4IpdFV+VPFjTps2DH SsrEuyUI0sF3PwDAWqfwiwjDX m tGtbJB2dDCJjitspQWXjnY8yI BSvY7w5FnGbJyK4CZhaQ1UpNJ JbwmolSc86oP7nIyNuFxU9IJd u D6CggoJ1WFMxoCLkGJsoHSR5I 64nd9G5SFYcMHJoPZG1gSC6oH 1hbGlnbjogbGVmdDsgdmVydGl j JMryTQqzH067POHeyEodHoKmE GluZyBEYXRlOiAgMDMvMTMvMj AyMzwvdGQ+HBTvRVZ6qJetJXH n eZWrHMrkWq0gmIepoZcyME7eL EZytmrnJZZhbV4oHJUnmSHewT auZF2xUMGjcxtmq396WdBaGEN 0 PLTmsJIrY0SxmF6uCbPeIIPtW VZbQ4EmyOIfSPpqI870GEmuNg F0AACjlmFuI9MhGIBskQxcErA 0 x2I5Lk3Sj6SmthfmJ6TjwRRsA nGpFqlzVFb0Q8JtYbppnCP+PC 61QYBgBI09VBy9GLK9iRctSTo i HUKcO9ZdhL5vVpJuKFQbTTOfU yc+PHRhYmxlIHdpZHRoPScxMD EyYdDzrHkqFD6wRw6nALWvNBL v bYjljDPjYbWyw6chAJFwPQuiI J3hyDpuM1TqpJW7KCEqs4f7Mh 87E27cN8PeySX+EGTywFP0eOF 0 wB8zOkQjQcA6PUisA868WgIby MLyKzcle0mbi3urmUy6JeX7WR CebkXclTrfSXW5g3QgGq22F80 s IHdpZHRoPSIxNSUiIHZhbGlnb g9uxA0xOx1+RKImgTC6pQQ4aP 1cUjIiPyZ2KFewH146ScRnhPZ v Iaxqq6fvv8dpyYs1QnHfXBJiu lDhhKcaUBT4d3OsSz08K8KjsN bod2UbSqt2ph13qRPfz6V0tCO 9 Y1StHNYmeozwlZRmdImvXJ7aM TJgvpumDHFitU3iYIBkA7f8Xs GcBkW5XVkhI1CvqyE1RQWciXZ g BVIvaRNEtD1dpyxyw7kzkdaaZ wPnYXVwKPh4PGd3KTTvmXhiBq CePIN9YgM0JQA5bXRfxS6trKh n vnpmkQ4dDhb+GYK0uFIzhQPJJ L6iUdyznYM+XHKvFMB2yBwkBZ kiFJLzaW5eVLOtD3x0QfOrOgV 1 MIpbA5JzfzM9PVFprYLfUHEgk PBDsO7zanbsu9cqqencIrAjVK LwMDb0DGk1VCTgmFcvCaFpWJQ 0 JfQ8YLO1eAIzlX1rxRriijkah G9wOyc+WqetuHstPCX2BIk6D3 EvTvm5SJDptHaoYU2ngFOuZHx u Nw9iyUzwbUqcEZ0xAVKptnpac 880OeDxa9hsNRFszRKuUPuzBG L6W88ng6X0BOKdQNSgPSY4aMJ 4 jA2opLjepvxdqGSizCngdgOaw EsmYCplEJeuF569ABErlSdlMb YsSIy3G2TaVhn9FHPxdUknGJ2 n nXGdHSotZm3pyNovqAbvZW1kX JNbsnouc153EoYgl4jtOYDrdV XdVPbcGTI9W79rh4U9AZTfQHG w XLP3pSY9cB7xbVmyyxjywLPex OtnvgVvaMniAWenVWdtA039MG PurZmqAgLczXx3T0HjKoo6IAP z mRzbYT8aqAEuZCvbMs0tgUwjc RruVU7tZJNcctrik129EdIjr7 zbKURdpXUuPRxyJWD3P44hx0Z 6 XCJkRTUyHGF7nBK0fO4vkLore jogbGVmdDsgdmVydGljYWwtYW ilN329JHJoeGkpYvHweLhprtF g WGuuYTe6V2OpIaadxGA+PC90Y QZzBA51bVNpkDFxz6qyeYi6Kw CsQPDrCSF2kLvpDFfgs2BgUIV t G49wePEfi0Z9IOAchKlsvTFiB eKxtEY4dS0xPUczegtwy9odpa iaMtpwi9zagk91dZ08C76uVPl p LPVaXDAsPHMdRBEdeQmtnk8da G9wIi8+EVRaxAI8pTF0yX4oCT GjLiT6MGhxW492FvVryAMkTow j n2dte2bldXc1AaS6NYEdqbLwt OlwADY5o2MrJd57S86qNWjcZC AsNFVbXSOvMXNrdImsvh4pdB5 w Ii8+EBGqhGT3fOB3fO5mJpUzC tS6NWsfD495NyUkwXVtMjylH2 3oX3HvoTS+KNXxGvj6XGDeaGx s UO5qrXBdOFhbYb4aSLW4LiLsV tIhTFgbY3QoEJIhrkvawbcczS K3JQUaHOQnpF40Py3rqGpwLJU w qGZHqR8qmlzim6uaagxkIaBbH SZyMDc4DNr5TVCenNzfZkShHD V8WjX6TLH4fAHwxP2hwBrhwip g wS5dV3PsDLOofqjcOy72cV7lA yWfSuY0CKscQza+VEFOTkVSLC KDT85YZHXqPAkiuVI+PHRkIHN 0 wYalNPsnMNRtoF0kYUUsF0n1I tYqDfT9HEupZ8NrDQIeibuwAt 53dB0jNfNuIgG2YIkdG0HwscY 6 XMPmpIBnVSjeGTN0F57pt9G2P FEhZTUcVBG9vIN9lQ2ziGtgkq ogbGVmdDsgdmVydGljYWwtYWx p K075KNIeeLyjWpVtRtD2CwX9V Fr6K0OmYab4OKGrbUzkSA2yjK TjYFnsOf2xbSrduSskHM6uGHG p awneDIBrrO3jIVYyeLOqvCoxP U3nKEDukmrru463VrUnRSI4BL ZguWVfN9UrwC5oXaCoHDFwHYB w J6SqcBKyZYueT850PRhjDbZ6Z DAudhFgD2IjUZJoaSmiRxS2h3 L4Ov00JEJXORGmpuyjdEN+PHR k SZN6uXbkNVrhKLByuW9mWQMnY 3s8HgJsPkI9HPhrG1FqVJSdcv jvOk52xB4jCnLxZqC3XMvyB4K v iiP1RJExpRGlIDwdDOR8M76ik 8H4QGZuZWUdZME2dAK8wI6xjU lnbjogbGVmdDsgdmVydGljYWw t QJygE371RKHtdCymPc3pmNQ1N 5EwCme2BRYsoOukJK6qlWJwRH cjEf6beOrcaAafSR5iAKSqpij w AJTzfO0dLXZunBNrqGlyQF1gA YOgyyavi590DtCmOUY8WPIgpF ZlZ3WrqT7zIcGtRPIxNKXyI5U l tFNsCNjtG127YAadAqE4FENok jPdA1BlSXDnxXopBjK0y5B6Bz 8PdRYbCWBjTE80MP51WO58M8C y PjwvdGFibGU+PHRhYmxlIHdpZ PXiZXrvSSOkHwZgiKxkAP5qYl 4zLXWeWSXxcSmfwVLtWiFcb9n s LJAtILxlDB7stQctZ5SdrJB9J LVmd7i2Nj01O24wH4CktNB+PG FmpQV5jQN8kU1aGhWyChD7GUj p F928YqQdvOKsFuzrv9exo0tqn Da0BgKeRAYtwjFyvLslASB2x6 ZlAc49A53cFOnfAOIyQXJaHLX i GAVklUowdy7jtF9bSb9+PGNvb EH7vBD4uR5jPaGvSlI7CYclV3 13KbSbxGOgPhiuZ24fB3ImyKP + FZUhKmy5BNSyvMwkIW4azWBiU JwjYz7iPBY7WtLhHiOsQCqlR0 NoMPLhbedjywsozYL0RIUjYOB w vJ96Rf4wuOuuNb4rZFTqCGV6H BFzhMTaA3UyeD8kLvUuDTDjCU HyW8VdjKTxKNqrO808QGdqAmK 7 DTIlszLwI8HuZYTzrGqfIuQ1h 8Q1Oe1PaQicqZVhLJ7jIcDdCD r8I2TrImz8TUQobCjtAB1gaJQ k SBpiSx0ilKivyEoqYM2hWNCsa ahkv519DyMui0fmMPWtwTCkKI zmXQM2E65wl5C0JUXySHWgKKJ 7 wUA6bZ2lbMhrzdycaNKutHkiy sWzoZjpLMxcZVfcI547BTObrX fzLbHTDtq9W9HrZwy6OFUveAt s UL5riIHpUJqpKo8zcPfrfPdnG D6gUUEhetsin850DkJpb2niGF YmyLMoLJevGMY2X74go0P4RLD w DHCuUFG4rNC5dX1pyPlrtmtcr GVmdDsgdmVydGljYWwtYWxpZ2 46XSIarQrqGo5VEeg8I5HeAjc 0 DFLlzHwpSH4rcGCxQOpiHw2dj JqlgMjaMX6dFEIpaejjm815Yf Cgj6meZWZzoAJcJUdfSGP9G04 s a5S3BPGiJKYkCPT4cKH4gL3vy GlnbjogbGVmdDsgdmVydGljYW vcPEskD671RNApxEqcOcSppAY y OjwvdGQ+FP31xy39I6XvHidcT wp1EHSyQRO4pND7qD1uKTMyCX nda5Y1vCH7T5BbueVtdp8fs5b s YXBz (more content not included)... [facility] Procedure - Woundon 02-07-20 Procedure - Wound [id number]#2.00CD:1 27 [facility] Consent for Procedure/Surger yon 02-05-2023 Consent for Procedure/Surgery [id number]#1.00CD:12 7 [facility] Nursing Assessment - Woundon 02-05-2023 Nursing Assessment - Wound [id number]#1.00CD:12 7 [facility] Nursing Note - Woundon 02-05 Nursing Note - Wound [id number]#1.00CD:12 7 [facility] Progress Note - Woundon Progress Note - Wound [id number]#2.00CD:1 27 [facility] Coding Summary.on 02-04-2023 Coding Summary. CD:[id number] Gh0bW w+PGhlYWQ+TR1GDYWhE44ikEA zoS7IW8pLMO7VBBGFHAKUOU7X AO4qqUV8CCzrB6HfedHc SfiztBLnIW14HNl1LDH7nOfvW ZqxwT1akKLqS6m3SwBdRC10aJ 63BCpvCXSpRtN8OmReefkzbSY y H9fdPhFahOIoTin+PHRhYmxlI HdpZHRoPScxMDAlJyBzdHlsZT 3pTp4sDYBqVADruYkojCFeFqR j d4kiODPqDBjxEK6gwTnbW6Ocb ZV1STHno5b1Pq57vGK+PHRkIH Y6vNwdPXpfd919KqIkt9xqZHQ 3 jLSfZJlmNTP9B92lk7V6YEMvL HZfTRZ3mPF4fM1wuKspatgnP1 FxbDDmGhC3NFA9cIPyeU8oxLo n tmjynK5fSmp+A82RKD1JJFFSH G3ZPyu1N3KzXoawwUO+PC90YW LyMQ19iCMgkHJul5klxHh3BlB w RAGxLPJ1yCgpOEvhe4GeKEAzB 86aoKInh5U4YYAigIhebACoYt RghEH4aU7oQQajsdbql5auslv n Bmaea8tlta01tJ20X93jFRpzV SPyTFG2JSQvVMVpmIbltj0mpD 9wIi8+BHenc3yxw6xsdYb2GqO w XJStfbYisEfjXLG0z1MpHz82X 3JffApwt2RhUgg7mi37zFRkk8 L9fQR5ARbwLSTfmH4mWJvyQmK 6 CVOnZoIdoY15fXViNAtsWc9nn UuxoFeiLP1iCKNctzwkXMBndH 8bISSuaKNdcRnoFC6oAQIfzfb m d287XiJwXKM1WOYlzOUiI0Qtc M4rRxPhYXOcTEYlK4NhwFWnEW xzN266CZgyDfD8PZWrukZoT7K s JFRcuYosAeQ3n7J8Vo0Ii2Xax nleWKH1HTcmGQPgLaI8RiIgCn T1T1StCyq9TJAzpRrkDB7zN7Y h YETpjkohiobpnKZ2MTTyQGZto X67sXVxZDnaSi3qv9U3u413AS CcOPVubC48Kb3siJhhAJPtrAO U uH3pfnlev8trlwvkYfApKXAwD Qt2VBr8RPTfmWlnMfSoMPV5Bz R0NLM0eYPzwA8qnDrclzfylJ9 w Oyc+T04jvS9uYGV7LZX2aulkQ VGpxbJzZZ41TG66N0XsRegmlR FibGU+BDDlfhQmiVvgHV3mQfC j q8cxu5PeQRnsN5FgGEOuTNlpE nk8QFTmQEN9aII9uH0bNJWuHE lai7B0sVF1M1XdoxHeav9yx8k s MZGaNVcuV07aqKFzf8M5VXXln KG6RNFjiZmsOkSpvS20Dqw+PG ZhoVewd4ZxPogas8ixf4ltrTt 9 WwWoVOJxaaYhlFdpGWT4w0SmT i30C29wCDvkNGGzXIYuRUJkFF IovFsyah2ltX9wIz0+PGNvbCB 3 wXM0nW0wXDQsZwR5WWbbB592E dKrmGPqYwkro6blx3ampKe6Qa EtSJCcumNtqSvmXFT0p7EkWc5 8 J59rLYdsJGKpACEzUJQtBRFai Xmkgn8suR5vKe8+JT3xn2gnrx 77dD59sRR+DNCgEVZ6eAoxSFg w CFVraH8uPNgxPuH7XHAeNvLlg X98tDMrIVyvAx5noEokzIzdMA 1bNWAmzyyoh806QlOfb8jtKHX w uLYzJQfpTZR6D88sb0X6JBZhS YTwRNG1qKJ5cE4lsRzxdhgogO DdvEhlloImqYioHJmvYIvlL63 6 IHRvcDsnPlBhdGllbnQgTmFtZ Et7Q5SjCdi7XXQgfZicRK5drP IwHChuQg7gcLbuyMkpSI3oTKD p rdmve144VlEyn0ywBQJukNBrZ DbfCNH0G35kr5F2RAYwBMGvZP N2xSR5oL0wkWkeehzreSEfwUk g mxQgyAsiJTevFWwnW803DJQdb ChxYhYlvwVaFGCjwHV3JO14BO 11aSJap2H6fRP7N1AaYNSxgcj t qdvdxGX4NBOcNUVnuG78Ly4wz HxfOo2dYXNsTIJ7BFKqpVRhX0 DryE3jOxOtPHGzMFSsT8DezMF t UYbzD727TBdxXsH4MUVwmxIiZ 4DjCKUtiOmcQkV6w0F7Sp6PV5 D7UA79EY88gBNej3M9oGH4L9I h PIGmbvaxgjdvwPW1IXXiAUDzn A74Et4kzDpnQy5jYRJhXQH1XN DsqYRxT0HhkR0zKjVrWBTlEMS w V4WnnVVwNLjlX224RFiaJnQ9V AOagvTjG8RzEBCbmWspIzZ6h0 S2Fe2UUGg7QH60GA64pWHuj8X 5 hXE6F5HqRMNfzitdoylgfHF6L JVnLYVyqU75Qr5pmFfvRv4iFA WgUCJ8VNQzpIMwQ9GciT7nGxB j GUUqSIWqS3NbjABfPZfmT384Q YzyVlV0AJAnjfHjY1XmSIMhrR tzZvS3r3T5Ay6NCUJyWL08EIT 5 oSD6YL35GW57A9McYvympWIjv +PHRhYmxlIHdpZHRoPScxMD DtGsEgvWaxZZ2hTd2kZWXrUMF v dQksyQIkDnSol8ptHIOsNSfqP H0exCfpO6GpfSV1YOCnx9i0Ja 96U95wE7RltIW+ZWCwnPU2gMV 0 hT7rRgIxAkS4ILpaO584FrPpy GFzPrdsd3mou0xydYh2RyO3OH TtpmIouIccXCV2b6FfZb56G39 s IHdpZHRoPSIxNSUiIHZhbGlnb s0avR6lOl8+FAMscDT6mXK2fZ 0bLxHvPvG3NXnxA858JrNvuPT v Zcfyx2yii8bkcQs1QkLcWSXjf pLqmDxwFQF7a0TpWg48H3XfyQ qjq1QtJgt2sw00mAKuo5U7gXT 9 E0DpSUJijjvqxCRrtJatGV5rH WUtpvprOGYulT0oTRSsV6m3Mw BbObU2GNatK9KuejR6WYQtgJI g VMvpHGY5V26pt8E5YJTfXBVjY MQ3fVP1oI8rqLvcyswpyNLdrE vupgIteXmfKQbrSOuoH344HYH v dZisBMVtgM8rCBJmnKNjjQeiD Y7tXEYounzjPzYBMq6QWgccYG 4HEYiPUYm4I3YdLlj2QKErjDg s RC7hxMKfGJuhLv3vhKqreKwuK J8dLEFtgqxwYNKzbJ0gXCZryV TqwSulGR4uMOQuonotd981ZdW x CKL0SIRwvLRmM0VukN7bNvGjF LDtGNXuV5LvvEGgTHftM489YA ucUvF6HKWjioKjH7LuNDPazOd u JrV9w4F5Dd4pDj1wJX4uYIH4K B15QF27xPYjl8T1zAT2D2KmZQ ViswfjebumlZE9YJLuASMlvK4 7 cVEeVDosPg0fy4A0t486COGoZ XUusV10Gw0rxMlfETOlaVCOoE 5mnvfmp5qlgdakZlAiGRUoXDi 0 KYi7CYPsdDtiKaCgNIK5TqM5L TX5oUNeuL3udPasqgfijN9nNy c+IeYgCMWukwC2J6IyKmw5RAU z sGgdUH8ltFKlKYpiCi5zqLkqf PhdAX4dMJPhtjpuPBDfkT3aFP WciUXmqClcNP9wGAWdrrphz44 0 FmQmUOT5SHMkxNQfR6IngZ0pI fEwYRNbFDWeO7XiqHRfKYqoB7 29ZQyeAxX6OBXxliGmG3LfORH s eEqgHuU0t3I4Vj3XFWlhQL99I E48fPVwq9G8kCG8A7RaZJXreq djeiiqyQE9VBMaRHVpsH34zKY k TMmrEs0lb2S9q693UFEdKMVkq F06Cq6vnSfyFSJmpZBWuM1vhs sex7snhmkhHcYrIILtEYe6OCp 0 QDVfdEnlTyPsWZA8XpC2LOS3i MZelX4dbIyeqmccaT9nArg+T3 X1nNF8zPAmcKtesSU+QJ13rr6 8 I4MjOqheOez5NCUuOOG8tIH4h T8fVSFuTJibj6R0iLG7Z9Wqrt Yskl8cj1hzGCRjFBnzV71ooAZ w l4Q2WLMseEJ5OQHvuWugVcIer G93Oyc+JHZbmZjpm5DiUicdp0 vkc6qizLo9MwFyGYJxqaYwsNr u OIR7j9KyKq17H29fKBtgMUDgJ UVpUXLmIWZsqYqarv2apQ7cOr 8+CYKqoDS3fQM8dU9aQnXeXhM 2 PXnzM681BhDwsFQbRbmbw1bav 4ihdCx7AgGmSYPuuoFokWrpBY G3z0KjUg64F3SadWlvk5QbTel 0 km09kDNte2T1hPA4I4VbKWZbd kmfvJZcsMmoYI4eABQfrgqkOU JbeI0bYBCkY1o2BdPeDqN3YIg u N8RvirX6BSInnBUqAOHyaUGCt I3vrfyxh5iwlkmoCmDzWJPbNT a7JLz5TMLdvUraBnCrSWO3UaG 2 NJI1nXHmrI9irNwztslyqC8dM yc+FLk6d6mkmTDfIK5itAV4CA 62SY89oEQfy5K0tJP8A6VxJTQ p dkunznzbgXE8MBEcWVMbkH50U x6fiDazCe1wLUFtJWO9DXQnoQ KpN2FseC3dKnPqHIDdWWPvE9F l vMWnSJitW165UGkkXuN5AKTgj bXeM3RaAOYczArnIhU8f8I5Yt 1SSV60RZ99GE38cCYhy3K5zNV 9 K8KzQKXbvowolgdbpPA3MVYeD VRexO30Jb5ldUjoNq6oRYXyAH M9KFMwdYDsL2DuuO4pEuGuEVG w PYGsF0KmkMPdLKleY873JHrkJ cR4BKNzkjFqG2DoXCRlpSlvRe A4w8H6Rr6VMp45MT32DY22rXJ g l2G3zZJ3K2ZqEBAixduiqdcay QX0BMNhHDOvuA35Ih2kzMviBc 4qJAFoOVI0XJZrjKDrM6WtpG9 y YgImBIZvQTJnS2NdtAOwDYxjS 146TStrMsN1UBUamjXcC4UbEL AcrMqvBzR3r5O8Xi0CHKncvcy 8 H9NgNrnzqRC+AT44UBUfUU18q QUqtHTua5qtfIx5OsRcVMNwZD C7jTnqYRdpi9ZkLWNmE87ggXS w c2U6 (more content not included)... Normal [facility] Coding Summary. CD:[id number] Gh0bW w+PGhlYWQ+CE2XGICbK65nzPL fvM8ON8qNME5ISCTIXBRZVE5H UZ5ziSP9AIqcQ4GlanUu PwooxCLsGQ52LXz9JIB2kIfwD KsspN7wyEYcX4g5SxCpKM81zV 92JXhyWIZrZnE9EjWzlwsaiWC y B4jyGcLuvIKzGwn+PHRhYmxlI HdpZHRoPScxMDAlJyBzdHlsZT 4sCn3oLZCeWRNuvDokgISiEyP j q5bkNGAsYQyvHS5nrVxkW4Grh TO2DLOwz1m6Ho81kDE+PHRkIH F4sBqdUVtts112SeZbn2ctVQJ 3 sVNgLEroEGV1N11cq7D5HOXhN WZoWIW2wCH1qV7akXgdccdyC8 FadBVeKiB7GBH5hDMibR0xeRf n tgifkU3jZvv+I73MWN6CMBWJN A9MLnu2C8MrUnmuyZC+PC90YW DkMR69dUJljUMgf4wosIo8XyO w TMZrBDC5eVgwGFdtf4WvFQZqY 07ueTKef6X8JPSbcOsevQDxPk WroDH2iK3dPOpkcaipl3itdnj n Jchyl3poth24bS06U19jTEcgU FTyJSM7AQZzLTAtoBvnvi2bgO 9wIi8+DXhyq8gsb4jokWp4AdL w FRBiieXdkJmfVPK1l3KmMw08Z 2EbwJqzv0PcUtm9cq03xWAmm6 S4eAP5XAexICVwyP0oGMhkJeX 6 OEByUuCmrE03mFUdKDrvTn2ob TxbdGszGP8fQEGjdbywRNNjlC 7wRHEwxNKnoPkhPU0cKNUjsby m q623HwOxEQD4PQZmiSBmQ0Icj M6pQfJqZJDpUBXwU3WvpBGdDK pgM945SDzlTrB5ODQeumSfT0R s APKlgQonHwV0b7I7Rb2We7Xqp eajUXF6XFqzMSKpMrZ0AqAkBe O7O5PtVbk0QUVhjSwfZW0kP8H h MAPefmnpvlgyuXH6RFYwWQSqw I39iTCsRXtaWv8rk4B2s124LE XgHODeuY62Ry7dwFnvKGMlqFM U tH9olexge1wimsreKwDfKWPkC Ua0UEn0WQLwuYhcOaRsCOI4Xg Z3CQZ4gWPycK5moOdkxpefcP0 w Oyc+L33gbC7cCED7RUI1lhvnF JIeryKeFC01IQ04T2RxYypmnJ FibGU+SGIavmVrxJesQZ8bQjJ j g3wve7RmNUerM6OfXPXsUJmgB cn0TYKaYRP5qZD4wB2rRJYzQZ ykt7C7hTQ4J7CpskZzwl9st5g s FXRwXLruK93fkQAcf7Y9STOfj DE5WCJraQnzZrRoqR76Bze+PG QxkGitd1FyBfrqb1cut4vfpKa 9 JuZgUBZbrjXpjKibHQX9l0NqQ y36E53zOJbwOFPnLXCeRQLtNH VsqQvybn9hmZ6dUk6+PGNvbCB 3 gDR3jH0jXJLcJoC0YAzaF239N vXloLClKnmlr2ryi0dfeWw2Js HbKOGouoCwfPvpHDK6t4XhGj0 8 F72gJWboKZHxSZUfLDDbXJQfn Nkdhf1nwM9uOj9+SI7oq7zrty 18iF40aIC+PLQqCSE4yGhiPVn w FFNxaZ9rBPppZbN6RGFyQoMzr J57xSPnEOoqEa9xcSvqyMfvYM 3vYIQavpwag918DjRqq9ipWXI w gSIbKZlxEQC6J95fn7U1ONPbO JDxNOC9nJA9zT7xsZmrjujnvB GyoTyudjDdcRgsDEcgRZziK21 6 IHRvcDsnPlBhdGllbnQgTmFtZ Cb8B6FmTsf1RXUzkIiiHD2dwD GhXWlkTl6tgXhrtZnfZI0gATW p vstnv827ElPio8ucWTAdiNPbK IdkUTT5Z36zx6U8PRKmZCYsKR F6cPF0kR4pmQknzadznXQiuNt g hfUahXjfNTtxOFluF292IALpv QvnEbLidsGbJYYshFI1YF79YL 40zYKzv1A7sGO9C7DfNWVyqyf t tkfxnGZ1ONVmRJUciU65Ci7uh MirZd9qLTHtGKM3UHBvzDAvO9 SrvR7dWoJzKYVaYPTnV6NzoTG t NDzqJ054RAglOjO9GIDpqfQtZ 8ZlEYQpsVmbSoN4l2D0Tk2IE2 B7RA98YG18cUEmo6A4xOF0F9U h RYQpkcykawknuAA1EOQlOHPyz P57Pc8fwDmrTr8dVOJaVMA0BS EceNBdE5ThqW7oQgUiMLTjQLP w Z5ZywAKzCOfgK830ZEgnQkI7R SPlzzMfD0LuESQozRtnKpW6p4 S8Fg5ESMr3FA97KK52lBQkv0M 5 aXH6N2WxAYWdsaurxiddiHU9R NBsWKUalM51Ac0ihTjpFc1cDB WxFBP0XRWfzOFwT8NvoO5gYwS j OMDyIOQuC5YfuMQsVShiY126D GhmSlX2NIAvipCyH8SlLIAzkR xpTcD8l9Q8Hz7DEEFoLB64PHD 5 oDN2VN02SW16O4PxUhewnOZcy +PHRhYmxlIHdpZHRoPScxMD GnJbRazStqDH3eDv3qELPqZTR v lPhbgTErSyGyy5ruQTYvQZalS O5baTbnN7LmyUJ3CWGgw5c3Fa 35D15fE7AizJH+DOQlwHK3kBK 0 wI2uUiMkMtT8HSkgQ791UnDdc OGvPfkju7xxh1dwlIi3CzR4MT LzcaZyiPrfRDW6z5UwNf53C04 s IHdpZHRoPSIxNSUiIHZhbGlnb o9daX4yIy3+RXYdcKQ5mLD0zP 0rFpVyVkM2UYhqX041CxVexZF v Kwlpf1tmw2bjmSl3NvCrLHZqs wJruTdjBET2q2YsLb26T4JgsG hbl4OxLlz4ed81rOYxo5Z0lHR 9 P4LxYNEouicwyFMeyMshFY2aB DApowldLTMleC0dZVRdG9g4Ob TyHgW6PGhoK1AectU8CQGffYJ g JAwxVCV6B82vu5E9SXTmSKSsJ UY6vYU0lB6zwJtriehfxWCpxS scwnUfuMatEKcaCRcsN926DXY v wEgwNAPhhF4iATJyjMIvyOjiL V2lCOZbwwggCsDDDa8RJrruKH 8IAVkAICv1M5ZbOby4MQSpgUh s KH6oeAFoFZvfEe5chAwjnGxfC U6nBUYxrkclJPEpqY5lEBVfhK UipCcqGR6cBLYwicnkt113YfR x HQH7PHZawLCeV9WkiH4wRaHiV WRmQGKyE8NqtBBvLTkgS386WF xhXlI5XZPdnmEsJ5MaOFCvxVd u QlZ7k7V2We0eGo0sBI4aGYI0Y Q23PC39lPFcc8Q2aJB2O3JcSH IwhjmtoejroOE6PTTgVNWzfC4 7 aQEmDXtyJx9ta2H5a604NHLvF SYdnZ87Vu5daOhoKQOcvIUAfX 1isjtvm9wcrtwrGuLdPGEvQPo 0 JNh1DUTfjUfoUzKkZDX2MnE7G MO9xRAxbF4giIdtetkyjC1cBy c+MbHvBGCgjkT9W9BgYgx3AGE z qWbbAP6zaXBjMNdiSe8yhHnts EahSK5gJLSnrwxcDWIthD2lKT FhiJTgpWajWL8vPXLkbfekz64 0 WaQxOZS4LDUtuRYjF0YvdK6gY tQjSBFtFSYsT8BmiSWuFBrtQ5 09UZwaWqK1FULbywQyV0ImYUD s fDfwXpE7s4H2Nr1JPFjvZE01W L34sMQxa5G5sVV2D9OmSOMklm psvfawwGI0JRTxCBDujT44oMR k MOnnFn2um3X6i844WANgHFFfb X60Cs3ioXggSTDiaJDUlJ2ram dqs5qqafntTgVaXHTmMXg2DIk 0 VTFseSsmXxVrQMH2YuQ7IKX0b EHhhG5bdFkxpocjlC0kBvr+T3 V9zGP2oTDfbTinyGQ+LT59om5 8 H3BwWpkoIym0SFIdJLN8hLC0v A3uXQMmDHrpn6E0qME2S9Qnsy Foza6cj3pkCEKuZKqlY61gfFI w r4H2IRBjxXZ3WDVlxRvhAiKuq G93Oyc+FACruUexx5XcElkvw9 ejk0fpjQy3BzZuHZGuyrUkrNl u PFM1b8XwIp04D45cIKwaHMEoI LChWZHxCSDcbQhvxn0ikV6vFe 8+VKNziAJ7zSW5iJ7rFgPoKeH 2 GVxzW698ZfQuqEEjKfksd3yea 7iikCa0CjCqOLHbhbMlfIceIY J2t1VlCt81R5HvgKbxr2KsBdf 0 bw13pKUle9P7uIT5M8TzFJIca efutIEttBclSP8wFMMsgdslHW JqeX0gACLdG9g2HwWvHkU3TCq u J4VblrL3RSBktUBsPSSvoMOTz Z0wuyreg7bhvwokPwUuORIfSG i1IGj1VKIzlFfcFyOzYKQ7WfI 2 ZDP8uZUioF1aaFofvnpuuG2aB yc+HBd5l3smhTNvOA8jdDN9XU 04YM76vNEnh5V2uPG7L0ReANY p wisfufvicCU6EWCyEKJfrZ03T q1eaHjnOh4nMOYrMNT3QZGjoF FhK5PjeD4lQnEaGSZhGEPcW0F l uQUjDYroF717ODqzVeN9DXAbh hCsB9YgHGHkaIerUaX0f2P6Zn 0OJA44AH16PZ28lUKwu5A0mCS 9 J7JzORMvmyzpdqmcjJY8YYEeJ CAirG26Cb0mgTpdMf0sQVJzTR D8VKPjrAHtN0DvyE0uUiOlSBI w ZCVtU7TkrLMiZWgpW695WIivT bN5COGyasEpA7NjKFZpgUzlSb X0e9Q3Mz0UMp58CP67ML43tSQ g y6L3hHZ0Y5XkEQQcomhhwkfze XK4FZKyZASncL55In1edEovGu 3yTZLdMNY1KXNzhWIdH8IpzM9 y TgWzBZQpFJBoP8LtbUXnDAddT 441HVkgFxZ2UKXmqqOwC6TvJQ MkaRjiGoE2n0G0Lf8EZQpvdbm 8 P4IbMktmpOY+UH88AXQyPX94s PIaoPWhz0axqYo2CsCiOMBpNU W0gUdyZAegm6RuHCMaZ22mwPE w c2U6 (more content not included)... Normal [facility] Consent for Treatmenton Consent for Treatment [id number]#1.00CD:12 7 Normal [facility] Physician Orderon 02-04-2023 Physician Order [id number]#1.00CD:1 27 Normal [facility] BMPon 01-28-2023 Anion gap [Moles/Vol] 12 mmol/L Normal 6-16 [facility] Comment on above: Performed By: #### 1 [id number], [id number], [id number] ####[facility] [address] [place] [address] Calcium [Mass/Vol] 9.2 mg/dL Normal 8.9-11.1 [facility] Comment on above: Performed By: #### 1 [id number], 8017770, [id number] ####[facility] [address] [place] [address] Chloride [Moles/Vol] 100 mmol/L Low 101-111 [facility] Comment on above: Performed By: #### 1 [id number], 8191119, 3683887 ####[facility] [address] [place] [address] CO2 [Moles/Vol] 30 mmol/L Normal 21-31 [facility] Comment on above: Performed By: #### 1 [id number], 0954020, 8034920 ####[facility] [address] [place] [address] Creatinine [Mass/Vol] 0.8 mg/dL Normal 0.5-1.3 [facility] Comment on above: Performed By: #### 1 [id number], 5215654, 1794084 ####[facility] [address] [place] [address] Glucose [Mass/Vol] 96 mg/dL Normal 55-199 [facility] Comment on above: Result Comment: If t his glucose result represents a fasting glucose, interpretation should refer to the following reference range: 55-99 mg/dL Performed By: #### 1 [id number], 8958498, 4543392 ####[facility] [address] [place] [address] Potassium [Moles/Vol] 3.6 mmol/L Normal 3.5-5.3 [facility] Comment on above: Performed By: #### 1 [id number], 1820013, 0481405 ####[facility] [address] [place] [address] Sodium [Moles/Vol] 138 mmol/L Normal 135-145 [facility] Comment on above: Performed By: #### 1 [id number], 8704330, 8590841 ####[facility] [address] [place] [address] Urea nitrogen [Mass/Vol] 21 mg/dL Normal 5-21 [facility] Comment on above: Performed By: #### 1 [id number], 9583393, 3115983 ####[facility] [address] [place] [address] Urea nitrogen/Creatinine [Mass ratio] 26 No Units High 10-20 [facility] Comment on above: Performed By: #### 1 8124638, 7023764, 0692520 ####[facility] [address] [place] [address] CBC w/Indiceson 01-28-2023 Erythrocyte distribution width (RBC) [Ratio] 14.7 % High 10.9-14.2 [facility] Comment on above: Performed By: #### 1 [id number], 6682400, 4899169 ####[facility] [address] [place] [address] Hematocrit (Bld) [Volume fraction] 36.3 % Low 37.7-49.0 [facility] Comment on above: Performed By: #### 1 [id number], 8743572, 9148140 ####[address] [address] Hemoglobin (Bld) [Mass/Vol] 12.0 g/dL Low 13.5-17.5 [facility] Comment on above: Performed By: #### 1 9350440, 2409946, 8119425 ####[address] [address] MCH (RBC) [Entitic mass] 28.6 pg Normal 27.0-34.0 [facility] Comment on above: Performed By: #### 1 0231537, 7722022, 9485068 ####[address] [address] MCHC (RBC) [Mass/Vol] 33.1 g/dL Normal 31.4-36.0 [facility] Comment on above: Performed By: #### 1 2069825, 2306894, 9077023 ####[address] [address] MCV (RBC) [Entitic vol] 86.3 fL Normal 80.0-100.0 [facility] Comment on above: Performed By: #### 1 2105071, 6339437, 1625445 ####[address] [address] Platelet mean volume (Bld) [Entitic vol] 9.1 fL Normal 6.4-10.8 [facility] Comment on above: Performed By: #### 1 7212310, 2187184, 8491832 ####[address] [address] Platelets (Bld) [#/Vol] 272.0 E9/L Normal 150.0-500.0 [facility] Comment on above: Performed By: #### 1 9561225, 8173635, 5872073 ####[address] [place] [address] RBC (Bld) [#/Vol] 4.2 E12/L Low 4.3-5.9 [facility] Comment on above: Performed By: #### 1 1881005, 1485949, 7043672 ####[facility] [address] [place] [address] WBC corrected for nucl RBC Auto (Bld) [#/Vol] 7.6 E9/L Normal 4.0-11.0 [facility] Comment on above: Performed By: #### 1 8404491, 0237909, 0356356 ####[facility] [address] [place] [address] Consent for Treatmenton 01-02 Consent for Treatment [id number]#1.00CD:12 [facility] Consent for Treatment [id number]#1.00CD:12 7 [facility] Multi-Wound Charton 01-28-20 Multi-Wound Chart [id number]#1.00CD:1 27 [facility] Nursing Assessment - Woundon 01-28-2023 Nursing Assessment - Wound [id number]#1.00CD:1 27 [facility] Nursing Note - Woundon 01-28 Nursing Note - Wound [id number]#1.00CD:1 27 [facility] Physician Orderon 01-28-2023 Physician Order [id number]#1.00CD:1 27 [facility] Procedure - Woundon 01-28-20 Procedure - Wound [id number]#1.00CD:1 27 [facility] Progress Note - Woundon 01-02 Progress Note - Wound [id number]#2.00CD:1 27 Normal [facility] eGFRon 01-28-2023 GFR/1.73 sq M.predicted among blacks MDRD (S/P/Bld) [Vol rate/Area] mL/min/{1.73_m2} Normal >=59 [facility] Comment on above: Order Comment: Order added by Discern Expert. Result Comment: eGFR is race adjusted. AA=. Performed By: #### 1 [id number], 7002861, 1438072 ####[facility] [address] [place] [address] GFR/1.73 sq M.predicted among non-blacks MDRD (S/P/Bld) [Vol rate/Area] mL/min/{1.73_m2} Normal >=59 [facility] Comment on above: Order Comment: Order added by Discern Expert. Result Comment: [employer] kidney disease could be indicated at eGFR's of less than 60 mL/min/1.73m2. Kidney failure is indicated at less than 15 mL/min/1.73m2. Performed By: #### 1 [id number], 3418350, 3572041 ####[facility] [address] [place] [address] Coding Summary.on 01-22-2023 Coding Summary. CD:[id number] Gh0bW w+PGhlYWQ+BM9VSTBgX30jsAP wcE5KD3nDMC2DMPJGRPUPEU1B QL1emTJ3GKyaI8YbwqGt SqntoUUnPA51FZu4PCS7gOurB FhjsN8mlVDxN2o9TsNbQT09vV 99VIeeFQZsOvC3TrQxqpacfZL y U0kaRdArrMCaBxn+PHRhYmxlI HdpZHRoPScxMDAlJyBzdHlsZT 4cBc3xBGItZGGdeNzpuBDvQhH j w5kpFRWeQFjeSY2uiCrcO0Nir YB5BSNes4a7Jn85wGI+PHRkIH P1rVnvDLqhp230OgHip4viJPJ 3 gXFtUCifSWA5U77vr2C0KTYxC DQkUNG7fHX6eE3whNkyymqsZ7 FjuKLnAjQ5KUC0eZHarL0wvYu n objljT4mZxo+U32YOR6HPELWB K4FKgc9X2TiAuiikRS+PC90YW HzZV51gSShyLTps4bstQm5NpU w ZZVnZWU0eDacVSvlb7CmACWmW 66dfSZzp1Y3RPPxuQvkiECzKw ZcsGE9fF8sRUtduvuha5zgsvl n Mqoey5dsxn57aC86I00hLFugR TBcRIN3FPJoIFBlcVuoqe4wvV 9wIi8+YNyag1yoj5oldMp9DsA w VEOsbuDsgRgcOBO2x6RvVj92U 5RcvJuxx7XwWix7ob36dMNyf0 H8iMP5AXpsYVAnjQ1zKCvcUuL 6 IDEnFoJuhF26cNWcEDqpQp9cn OquoKxxAN2gMZGvyffpIDKsvW 9vSRNfcXCydAxoZX0tYSGygxk m x022SqUjDPM4HTTsvBIoP2Heb Q3kZdAbJYDnHOXqP4OaqOYtCW hnZ498GPloWsZ4SVXfqtOsX2Y s USJsnDubAlW5k9W6Vp0Mv9Ews usdURT6NTtyRSTjRbMkDzVrMh W7H9FiLfi4MYHbzNtfUU8cF3H h DBDagsavadihsAM8MTLjOVXof H11vHTfYGlgQl8gl7Y8r052LQ BeUTNctQ40Vv9dcJyiDADluZW U sI2bdmmgl2abkeyuIrAsURBfT Fc9XYg9FFWlsBvhYoXcDJG3Dp I0IPH9cCUhoU6ztTfxkmphmZ6 w Oyc+M37okY8lKXI2MGX1tigbP VRokbWlMW75WQ26Z6QsFvhfxX FibGU+PVKancOnjLlcTN2zPfJ j o9jay7DkIBesQ4BfTYXoRCvoS wy7QMEnTWE2lNK7rT8iWYZlWG qlc5V2eKU5R3MbakLsiw1hf3n s NDGfULmgW62jfBPlb9A4UIOuc HZ7EKAepWvdFdAsmP86Kvv+PG GzoWwmy3XoDryvk2nng1hpdGz 9 VoOuGMRnrjLdiOhoNSK5m2VzZ u39T04jSQorSCFeBWTzJZXxMJ DrxGayjj0wwI5pRg0+PGNvbCB 3 tJP5pZ9nBILgHqJ0UMaxF130R zJsxRDmRqybk7qjq8fgxDe8Mp XyMLObceCbdJiiLVD6u2RiAd0 8 V03zFEjxLDPqQVExSZZsEAQxt Xbdfl9otX7wCz4+VR2fo5srby 86uB24kFV+RTFaLUG3qVcvGDd w YJYedL6nOHweOuE4FUWvPeRoq W34hHRgBIfwHb7nnGwpeXutDA 3yGQYfgzxec549AlMit6beUMV w kGAjNSozTBO7D39zg5O9VAQjH OLgTAS8sTQ9eH7stVuheiqvrI MzlZwmgfWitQoxJIpqTAqeE55 6 IHRvcDsnPlBhdGllbnQgTmFtZ Eh5V5NfVle2TPMyyLbuTQ1etK OiMRskGq6uwZdbjBxzSV6qEDK p vkpmi048ExKxb9wbXZLipZKjK JnjCZU2M43ps0X2UVBwSPBrZP B7lRB6cO0byNbtntnlfBRmnDb g trWzxPmxEHpdXLrjO770IPCcr IqdBgRbgvUdMLPylMF1FK57EH 14jZYoj2J7oAN5K2HwPDZczue t nwxwvCP2GNCrFSErfJ77Cg3qr NzjBb2lVCCqGHW4LJHiuRUfP0 HnbI8mHyXxQBBbORMoQ0FtbBX t QOgxG159YDgzIuC8VVErdaKkY 1RaCKQebFxlMtV7o1J9Ht5CL6 P5MK59LI68nKOmk2D0wWW0D8A h TMEpkgkxovlliME8OYYxHSYlo Z22Ll9uzHsuZq3yEOGvPOM8NL MgyNSvG0LcwZ5rTeZiVFUvHSE w C3AbcZHyPAsmK279MSnxFoV5Q UWipxIgK7YeNKFlcFpwXkC0h8 I8Va1OGYd5AY49UX09qBEpl0J 5 oRT6G1SeVCExrycfpuhryMA5X EAnDDFfaL19Hi6qvHydPk6fKY QhRHK4IGEqbCXzX4EddR1bAsO j HPAaRJLiS2PocDEjQAwnU440R YssByP3BRFptcCjF4JmLRWhyC auGbI9v4A3Na6FJCZqIA03ONS 5 zXQ1KN32DD03J9UpBwkkmDVtg +PHRhYmxlIHdpZHRoPScxMD YvTvIhsLcyHK2tKr6dNSLcWHV v yYytuWTbTjRxc4yeEYSuNDqmT C5zoMcxM9JvrFE9GEGbs3f8Zn 38Y27bK1DxdSH+PZTjgFT8xYI 0 lG4wDcQjVhV0ZRqyI488KsQul GDwTmcwf3nei7sdsGq5KfN2FU SgnpWrpVxgHUA1r3TnVg76K94 s IHdpZHRoPSIxNSUiIHZhbGlnb i2fxI8yYy9+CSIwbBA1cAY5fM 7sZhFiXdA8DDumG852DsGuqHC v Sfmzl4woq7gayTu8VmEwAGTbn fBizVteVJM7l2WmKx71Y6JfxN vpe9GrFyw5jk73rVVsa8S2pZV 9 C8MjASUxvwevvCMtyNvhOX8xW YCjbafoLIJtpB2pTLPxW1g9Wj HbKeO2SHsqR2FlgfM0RKOwtHP g EPzrTWK8V35fj3O1GKUyRUKxK CZ1tCJ2pF1lpYlhjgfbrWKhmC usjvOqtGgeHBizMAktF799SKK v dKrfGOTtoY8cVLOexUBrmPhfK Y9xWGOnndaaGgZVCy9LCvxdCP 1ONRvAYRz6N9EcHgk2MRCryWf s IP2qpYGkCVybWn6avTikdNigT E0vQWZjrvrqSPKrbZ8wWBJhoD RulKfnLK8eNOXtfdabo581YtB x PCN9GMAkuUXqK3CkiO7dGkHxD SOmOAGhK9VioJXoMYzcW569CB soCtI1CJVnqyKwP3JwMTTqrLr u IfN7q8B8Qo2oIb8zJU2aHXY9T R33NK54yCGok3O3qOL3P2QvIK VxjibapqrpxQB6EPAnYSXwjV9 7 iONuVJvgSm1hb3L3v211FYXzY GWrnS32Dj5qfEdfJPBmcNHQqH 1kufvem6jisqdlKtZaHQMvKIy 0 QKm9CCFeqXyjPpQeAVA6VfE8M EL8mACoaJ1xsCohjbfbzT6wUe c+CjNmSORodgB7H7EiOix2BUF z hWobZF2dlZWpGLvwAc1btYgkh EqfGA6eVJAfyfgrYHAihC4tLF CoqJOrdQukCJ2hTRPunoxdc30 0 MoMzPJK7PYYeiKTtI8FhnK7hE vQrEBXjSISmC2UrzLVmUPfhM3 06RVthCnC5GLLeyeTzN8EtJCW s bRseOkH0z7N3Pq2JVBfsES69P M47sNIsv1O7kCN5S5VfTLUcmf aeyycjvVI0KGGqJBCyqD81zAI k ZYxwVf8ho1J5i764YKZgRHKya A26Dx8tcNlyCPZejVQRgD7nnh npg1kmiudtHyCgIQFtOXr4HRi 0 WGThqVbwEiEyGQK4XkY5VVP6m LSzuD0ucExpssllnQ6sCzr+T3 T2mPZ5jEIveFcxtXM+DS40ue9 8 E9ZpVxenVri4UUSjMPE1qCG6g F5pHODkGBjni7E8sZT3F4Pczu Xlld5cv2wcOIOhNYfuO88iuAM w f6A4CPAsjTB1ZEXugWaeFtSdy G93Oyc+UPEgzWdke4WeOevhr6 pmu7ffxWa0YsUbAVTpyjFfbHi u ZBG7r6VxCz01E60yYNvrUWEyY NPzCJElJZRckAypum4zoA2wDq 8+RFMauIG2yVF8yG1rMlWxMnF 2 WJyrK331BzSshUHfFucdi5ubi 0vdrVz4UdOxCMWycdEwtXmpKL S3j6EhIj44I0TaiEuks7ClEwg 0 kb00wALxp9G7kKV8Z8EcFUIaf fubuPNfkAgyUU9yLMJaxtbeXS VfbY7qYEFxJ4t3XfFgBtV7OWt u V0TjtfL0WWYkeZOcZLGinUWMt Q1hjaels4xkwuquVzOcBYZrBU x1QVl7FUSrjFcmStSmJKD7BlR 2 ABJ5tSFyzH1aaFcmmylrrO8mV yc+JHe3x8mfuDIgKX2chHT1XB 51CV11xEHyu4M8hPH8M0ZgGIE p gfocpxzqzAC7XLJnMUNgcG24S y4tvHbwDn4lUZDqZIC2JFNlgI VgL6MidC3sAyOaWGLpRRYaR7S l hZBsAUznG642CPscIbX1USKvs aZmE8UjTIJwbOrpOkQ6q9F1Vf 9QZJ22BI36DV12xPIqe0O6xXN 9 F1SrQRMkcyhoevldyCA1ZXHjB MWnbI73Fx5mdQsdDg9mSGVyOO I5ZWLstJIlL0ZiwR3rIeOnKRO w FOKnE0NctIFlPNyyY077ZFoiQ tQ8CELvraFgP5OlNXBjcBglYy B6i3T7Vj0CHt58TZ71KH74oUB g o9W9bQU4J8GmBPXzwxhgdnnzd OT4RTWrSWEtiF05By1iyQmgHj 2pKRPbBHS5YZQhmFFsH5SviU6 y HxKcVBBvQVJnB1VddBOuQYmsW 284GEgdLeZ4NERzkwPaS2PzHT BojChiHlP4z8J3Ug3FAFfzjeq 8 N4GhNjapkEM+KA98FODfKQ80m POidXBmd0xgsYl4XgHqQNZlIL X8yVnyQHfzb1LlXNMsK97wlFW w c2U6 (more content not included)... [facility] Consent for Procedure/Surger yon 01-22-2023 Consent for Procedure/Surgery [id number]#1.00CD:12 7 [facility] Consent for Treatmenton 01-02 Consent for Treatment [id number]#1.00CD:12 7 [facility] Multi-Wound Charton 01-21-20 Multi-Wound Chart [id number]#1.00CD:1 27 [facility] Nursing Assessment - Woundon 01-21-2023 Nursing Assessment - Wound [id number]#1.00CD:1 27 [facility] Nursing Note - Woundon 01-21 Nursing Note - Wound [id number]#1.00CD:1 27 [facility] Physician Orderon 01-21-2023 Physician Order [id number]#1.00CD:1 27 [facility] Procedure - Woundon 01-21-20 Procedure - Wound [id number]#1.00CD:1 27 [facility] Progress Note - Woundon - Progress Note - Wound [id number]#1.00CD:1 27 [facility] Coding Summary.on 01-15-2023 Coding Summary. CD:[id number]:[id number] Gh0bW w+PGhlYWQ+AI2CIIZpD52lvPO mvW0XS4kCTV0CGDMZBMOGJF7F IA1foVC8NPnwX1ZqueOk DmopaFYoXC97USs7LOL5nPlgP FfrtV2raTTyZ4s3YtIhLC51zZ 37CJzpULLbIbY4UuSuabwayUK y B6hsRzCegESqPcg+PHRhYmxlI HdpZHRoPScxMDAlJyBzdHlsZT 0kQv8sFMYuSLScqRupfWLxYrS j y0hmSEKtDJrvID9rwMbfL1Mdl KS0ITEss4n9Nk82lVT+PHRkIH E1dXviZFfof495RxLka4ucWZT 3 fCFhPMhjIMD4I42yl8T1NLBzW EMtZYS0yOL6sI9xfDijfzijJ7 OokWGqGbL9GOP2cPPqbP3cnPb n qkavrE6yXsc+X10LIO1PLTOOA G1PGdc2G4HjXhppkBN+PC90YW SgDI95nDZonJUig8brcUc9OxA w RWEfXEM2qVurJXyio2ZjTORkF 41nxTMkl0E9HRLomJbicUNyMj ToeNU4xJ9cPSabwwpbc6dhaap n Fnzza2wljj64cU62L40aSMpxI WIyBFZ2LIXxSDMtpIaenh9goQ 9wIi8+EZixi4oyr0ueiMc5TaR w EYCqxiTckQqdOTB7s9TiXm75P 2BgzIeqe7OzIpm3tb94tYSmt2 W2uXV3MUxuHOLudN5oOFtzOpZ 6 BTKnIeBmsT72qSDnKFciLg8ns ZjrfDfjXB3wVJVvkghpKOFaqB 2yIHHqjFUefIcvBJ5oUKVdjqe m h312EpPsAET8LUQhmGOaU9Rnq R4zGfGpSBQsZZRaC5RtoQWzPC mmC552QPypQaH4YYNsknOmS3R s PDPalYaqPdU5d9Z2Ya9Yz7Bef jshOEJ3JUpyXSFmXgO8MmNiTk A4I9VlPem8COKbhHucMT1fS6I h HBMtkijuamsezML1HPVgHJIhi N22dIEiPBtdFh5id3T6b224ZS HbNNOkyZ84Gq0inSkkSQZrkNL U oB5huulcj0muvixoTyTdMPHtM Sa7PMj2BIZyeDmlSwCxBQZ1Nq J3EXH4eHIfxJ5fyHthnpibxQ0 w Oyc+P61ikF8aIBE9ZQU6ruqzW HMjhfQrZR00AE59K8UlPnvdzX FibGU+MBIilwSyyVqxBO9wAiR j s2sys7ZhUMdeO7MwLDTpONgvD ac5WPJkIQU1bFZ7tQ1aMVGwLJ sjd1R5rQG3H7RymmVqxr4la6p s HJJjBIzgN68geZGyx8O8YLKdz SI7FBBkfIzgTtAywG38Cwf+PG DbsIpkl7SvDikkg6mcq7mumAu 9 AqMmROQbzbCtmOuhAZJ6i0NqL b44T08pHCwoLGIuYCJjTQIoGV TyfWzgwt2woM8qXn2+PGNvbCB 3 vYX3rL4nEVUrTlZ8FDvsG562M fAczYVqTpveb3gfr4rrfEd0Yt IrBZTngwEfzPryIQT3m4PnSf3 8 Z72zXLuuIVYjIFUhTNTaHYKxb Hrvcc8spO4yDr0+XI4bi9xeex 52oV44eUH+GIDiQWL6ySsjNOc w BWTptG6hXVbgAyN5GTOmPyYig O07lUNiLBhgJr0odDrpaYvpGY 7tRCIqsdtdj934UbDeo3ciVHU w qAUaYRviVSP1F70bc5R9INUsN GZsCPF8kFC5uD0kqLdcaacnhH TfpEzgloMceNtcKGzfTPhhH87 6 IHRvcDsnPlBhdGllbnQgTmFtZ Bj4Z7JoEba0UFQyoSguQW2cpR IpQEwjJb5nxXfkuNoeXI1lSJC p fyyzf593CxKoq1woMLBlqEUwE AaiMGP7X17bp0C9SYBiUOHrCX O5rUK3mM7rtCuhvmggrZLkkVa g uxQbjAfsFNmpWUogH384JOXze DzdUdAtrdOpVSAqjGE8OH30FM 50fTCty5Z1wBR0Y5OsBMIosci t umupkPJ9HOOyHVQwnW05Ob6px OcmHb0tQRJpXSB9RANskGVqF8 YskQ7uWrNkKZOnZPDxY2AecOX t KUefN546JBtkKsF0LQCrbnOqJ 3FtACDrpDyeZaE7y1P9Rb3MP8 P0GO44GY35mPFhb7Q5eQB7K1U h PHFzjrurfgymiXP9DYJaEOUlw F57Cs9pkNngVo1uROPxDZP8AO WefAMbC7KpkX9hJcVlXNWaOOL w Y8VthSWmIGawX203ANhkWfU1N IQicmUyE1ByVTJwwKldHyR4i6 F6Ek9NUFn5UE81CY17sQCau4W 5 nMG8Z3PjJDOuurwyoajjfRY6K PMwDKBxgH07Wc6thIfiWk0oCZ JsVEW8YJBosHTjI3GwlV3vAcG j RQSyCIMdT9KqpLOlJJtfY354R ZsxMtL5AAKerwOoG0GcNRNwkD ymYvZ6s4U0Yi6IMTXdEO26AFE 5 nNK0RX55GY33O8CxPlldiADiy +PHRhYmxlIHdpZHRoPScxMD XpJlSrlCzaCG0jHj9dFQDlBUW v cFlbiKSgRgBoz4tnQQFnEAneL E3xcUyeU4JqiNV4UDAwr7e4Xs 93J37qI5ZwkXV+GIGmcJY0sRH 0 aR4aUiUcMoJ1ZFnqH676SdOgn VAvOjohe8nlf9cyfEj8EnJ0GA FvzkGmyJhtRPM4j3DkQf04T38 s IHdpZHRoPSIxNSUiIHZhbGlnb v1sfG2kFo0+NMWggQG1gFO3jO 2jYuSkPzS4RJrvM324NnYicPS v Prrip1kea3ppgFa3FiFhBHZhb zTrjAavITN8h0CiOf53D1ZbaW mxw1UjGxy8qg83jIPse0Y7nSY 9 X9MiKNEfjiukvELcgCzrNO3rJ VYjerpxGWQfkO5nIWEfU5g7Fz ZzCxU2LLylM3TgnrI0VAEfrTX g SOxjLJM8E87qb4Z4XAHoYICtI JK5cOH7dM0ilSfmyadgzZUyoN cjklHmnNecUHvmHZjrS272IWQ v lKchOOCezO4pAMLvpCUerNjtJ U7wXBEmkswdOsGGVs6OAkpoHU 7LURtDHUm7Q9MhJxd1GCJknBf s CM3ctNTjAJxzDk4fqRywdJdwN C4zPQHcdgrmSNPtbT9pCJAedB GyaOtdCC5vXMPwtwnlk510JzR x JRB5CCJglSCdO3YiaK7lHyNwB FFcCLTqB0StaOLrIOzyD289FI isAnI6LVZgfnEiS8EhCAPgvWc u JsL3c8X4Vu4vGs9zJQ5qJPS7I B00HF46uIEjf9I5nRR6H9EfNT JqnhqecmzkaKU2PGTvQIHnlL5 7 nRShMFvsVn6jj7V3s495TZAzG EUunE51Zg4nqOhaSAVuiBWDzL 5hbqavc7ujvqucNvWjQTBkMCp 0 DRn6EIPtdOwaVlQpRJC8LnQ0Z EI5oAEtlT7fdUsyvhebbF8oLl c+TkMsVRZbyjA8L6HqDul9SQL z tPqvYI9aySQoDWxmWk4qlHzwn AorTP0dRGZnozthTPAfeL8dYV UztWUdlHfcHB5fMPWxqhbhb54 0 XfPwVZR3RPPpjJYxN1YmwL6sC bIrWUYyOOIiT2OxjZVfOExsO7 89CPccIxC0PXVxjfHoU3KaAOR s tSteSlS4h1Q7Xg9JTVjzJW59P Q16tGPfv8N1aDK8O0OcHDAzpp zdcvprxQY0OBMcFFNqgI50sBB k ERblBe1km4I6w793NWGxFDLin G78Ab9dkCdkRESwkQBReR8yjc zxl3vyigjxMuZjBBDtFFl8JHr 0 SKOgrVvxGqTvAEG2DsL1CWN7x AAvzS5eqVdudruzoY1bUvi+T3 W6gJS5sYUguOruxYY+UN03cw7 8 W1EjFwloUfw2NSOsIFZ5tBT7t K9sRAEwVIssw6T4mVV6Q3Rotc Qavg9id9idSWGfBNimP74jvHG w q8E7JTJyqEP2LPMhxEjjYlDwv G93Oyc+MRGwiDnxr9XvPybse8 nin4haeKj0ReClJKWryuTjfAs u YHG1x5AnIv61A16zMHgcSBCzU ALbFKKnAZKmeSdfov2beA1oGn 8+DIDarNA8mOX5dC3eZgCdUnR 2 EQwqP792QhVmrVChNxvfw4xcj 5csbZe9YwDiKNWhufHjaPtuMP F6v9OpBo06L1AhjQybi2BpOmj 0 fi84vYXde0B5mWI7O2RvRKImt gwquZWcvThfES1hIZWdqdwtOH BndA1qYVSmY1f6QvMuGpQ1YSo u Z1CchzK1VWRrxGXdKZEwbBYAc V1jmvywn3ubkmxdArScFDEyCJ y7GYk2FPKrvRjrCsQgJGY7YwI 2 WSX4eAOfcH4cvDqdnwnelW9lF yc+GYj6c9hqcXOqAA1zmTB1UM 46AM17lPXkg4I8vLY6P8KwIFT p lxtxsjwwyTK2FOQaNBEhsW92A t5upHflCm5aRYOyULK5GUGksD HuB5ZbmX3bEuHgBKEjPKQaG0H l fYQrXYduX785THxqOdZ5KYPyx sQnR5ApYBInxNiyQlH6h2P2Yh 5KOQ26ZR43QZ23vKDaf9S6rNA 9 O8DxYFAjgkepzryqfGP8QUQhY IBtaS97Zw3fcPqgMy2aRIKaYI N6YFYwuCYfL8DzbB8pUnYiYPK w MVCkX4NuyUKvCYswI613XZcoR iY2AYTsvuXzZ4BsJHGmrCgbLm T3o6Z8Dm7IQv32EJ59ZS55ePO g a2A0iEF1I7IsAIKvhwqzgpbve IK7BYIgGHHeuW25Hu5meLkvWi 4oSDQfBRK6IEXtpGRiZ5EbkB1 y MaFeCTZmUPDkY1HsmCOyOMrvP 699MMdxOzI0JGHrepXbJ9UqAU VyqTzlVqR9j2Z0Ls6JJXfhudg 8 Y9AkXdrkmBF+GN18REAsFJ08l JHyxYYrv2ewpSs5CrLkRVOnOI F8sEiyXXbey0LlYJOhP66bqFF w c2U6 (more content not included)... [facility] Physician Orderon 01-15-2023 Physician Order [id number]#1.00CD:12 7 [facility] Coding Summary.on 01-14-2023 Coding Summary. CD:[id number]:[id number] Gh0bW w+PGhlYWQ+RB3XXHCkN58nvEL juM8MP5oHEX7UYBJMBDDSEG8G EF5boCA5XOzuM5EdvhCt VupqzJSbFB02ECr8ZUH9mVfzY OkorG6jtGCeE3g0AvCsFJ23oS 83TDaxCPKuIkP4DjWijouftBH y S0rpEkDmaPKjAzt+PHRhYmxlI HdpZHRoPScxMDAlJyBzdHlsZT 6wMg1nYLSnSNKtcBosoCXuJlO j i2bcHKTvKPvsEE1mpKumU8Btl JN6BZGzh2q4Fv25cQT+PHRkIH E6bCtsBIgar261WtYvw4wlRYA 3 dAYzAKxpEYS4Y19dd9B2QIRqX OEnGLB1bYS6lF8zrDvktsasE6 JwaJVcMzZ5KUW8jHQleU0dqUr n nenuuX4gPpo+C50TTN5HWWYXI A8KOux8D0UjXhejqUR+PC90YW UtAS17rKImkINqj3npoDs0PmP w WAOgCRJ1zNnqBCwdk9NaDUJgN 53aeMIia9D1WNFwdHxzzZDeQa JleJW9bT6vUZpggyuqx5qaxha n Tkxww5qatj48tH17P46qRHieC PMsHVU6LLTcZISkqVujdd4reV 9wIi8+WRslk9mfk4jzdRy5ZlV w GKVmggWwxDroVOS6o6JgAu71G 0TliRume2AlXss7vf64qPQdn7 W5dCH9ILixCMXixG4qZHlyGvO 6 RDPlVlZlrE70gWSjBSpqDz3km FrvyWtjDM1tYBNrhxwuBKHwaZ 1aPHOteUKkvIifQE9cRESuaqo m w260JqQcIZI7TDUqoDGpD3Szw F7sEdTkPKBzDSCnX5TxgIQzWH cbM403SAwiUjU5XBDeslZcW0M s UNNnfJugVkP9k9M2Wp3Rg2Odz rcqESH0QGbzOQYmQiS0BjGbVj H4F6WiNkx1EZNbiCghRI3yE5L h AGUppyshoacoyFM4HUZnDZUgn M31cKSdMNsbUg1wk9G0m006JE OzQZCbeS60Qk6wsOssZQKtfYC U fG3tgdpqy7orbgtcBiUhUCBzS Aq3KVz1QLNmrFgvAzGwNUC2Kf Q4SAV9iHYwwE0rfUzpebsenH0 w Oyc+F84rzJ5wSNE9NWN0ezycJ QQtqsWmZM62NX86O0ZnPyaaqS FibGU+NFCbpoEvuSvkXE4lPnW j k9znf4PlMDpmN0LpGXLxPMvmN yn5MCJmPPP1uFR0lB9tEJApAC ugt2I8iCP1T0IkxlAewh7hn6l s MEIjZXviH58snTLwk1I9RSCvy GJ5OLNvjGxdZcVshO21Qsh+PG LhjDzbu0LkLjntv3dgp0bxwGy 9 AaJeIMTovzUkbThiSML7x1NqW k87R50qJCrhTBWxRBWkMYOgYC MbeKusqm8fnC9iHh2+PGNvbCB 3 hIE0pR1dYIYqXoW1XEmiX922M mKafRZhCwwtn5ufc7zrxAi0Jq TwTGBcxdTntVcxKTI7j7FyUh4 8 K29kEQqgXVGdYOStIYJdJZJxr Csyyg4mjQ7hHz4+JR1hq1yskj 61rP37tFO+NFMeVFQ5zGlcEMv w ZCCkrF2jDYaiJdB4SEVqMpLri S99oKDcBRnxSj8vcGmffOfwPV 7nYQYiojcex135YqAnf7riORL w wGEzUDceVHK9X80gh1X4QUTyU WPnMKN9hWT6nI4ycEqzovtexO PfsKtjkwSxnXzgPBetATjjP30 6 IHRvcDsnPlBhdGllbnQgTmFtZ Ih3T6GiAba5ONOijDdzRA1chX QoLAwwTm1mnDrpuFbtWM7tVDZ p qqymo033GmJqb4lsJDHrmCZvC XsbLYU3M67ki3I5IMVnIUVtQJ V3gBG1pJ0fgJispcotyNHrxRs g pfEguGcuGDkkFJmrT342WZWpp OquArBtwySlWYEegGB1NP93RA 78wJQou0P1pFD8K2LrLHXzlsz t isnrxBO1HNUpVJHhiA27Sk8iu OvmSy2cZOThSJR9RFWooNYzO8 PnnF6bGzMcSDHlYSAdL6CcwTJ t AUemX818REcfOzE5QIOpqeStK 9EqBSFytRdtSmS9n5B8Pj8ZM0 D7AK14SW42wKAcr2L5hYI2X9H h TRZozfnzjqzqlNR1QHZlFWHmf H34Gq6hyBimHf6gFEPeFUY3LH FeuOEgA4DnnD4eUcJrXTJkJTM w J6JimFJvTAuwH666BBheAjM0S IYnqlWhA9ZyUTUisBjiBiX8i2 F7Ap4TDPp4OO67JH13iJVtq3L 5 gDG6Q4ArNYIppjexxmkhoVD2L QZoLGFzaR08Mw9hfOdxNu6uOM MuFBE8SPAssAYbE8DoaL7fQdQ j XSNfJUThM0RfjNWfQEtcT919I HgyHfW5XWSyutPsG5TpANBgcN osMmA9z4Z7Zl1ANIAdAC58KSV 5 jJP3FF76YJ32P0PbTfiwiODqc +PHRhYmxlIHdpZHRoPScxMD KgArPgjPqpDU9bWd6lZONqSLC v vWizzTYwAoHxo1qfXNOjMFiyH M6ytYyhA5ElzEN2THFll4e0Vb 26R99jX0MmgLT+MNMfzBN3eQS 0 lJ0eWhHkAkC7KAyhX504UoMym EAcQhjli4wnt8nwcJn7LvB0YA EwtfAjvLywXYW3r2OtLe67H45 s IHdpZHRoPSIxNSUiIHZhbGlnb b4deL9mRn4+EEArsGT5vTA5qR 8qKwVuHdC5FEaqO860DcTktMO v Yaofp0wle6rtoZv8OzQcUMOop sJpqOeoXIF4e2DhXd45Q9DmhB qxl2ByRwf1zb18xCMdp0S8xQY 9 X0OjBAMizbdaoPZbjWoqCZ8cL ZCufpjgDRMgvG3pOWPpU0h5Ba LlXzS2TGlvM6YdhyE8DEObvSH g XFudXLJ0D19nq4F4SGEwLQYjO CH9oCV3iN7bwBpptnenwENtlZ lmbmCbqAktJNugTLbhS049XJJ v sZiwCDXpqW2lPJJkvOBgvBfgR P4cDKTbeoxeYaDIBg3TZkywYB 5WTCmCSOi8E0CxLib2CIRezQk s EF1itNBoKBcjLu2lvLrbtPpeU Y0ySNCmiayqNXSxhH9hFONxfV EtdUywHN6nRLQxujdal563PuM x NGF4SZSltXZfQ1LxgJ1oHqQmU RFzZQIpW4SfnSJbJJeuD140SJ iiWjR8LWRyhdWjE6PpJPYavWy u PmT0a9U8Om8mZp1bEM6ySQK6L W74GE57nZXpy4E7kKK5Y8OoZG MahklilgbkkBK9BIVdIUVvcJ3 7 aOFkHNyqEe5ks9B6x399LZCdI SFzfO72Lp8bjPbmKXHknMVWxJ 3fzqbdm0fttofzBmDmPURbCIk 0 MSy0CTPcaMuoOoUhGMI2KmW8E YZ9dUHbbN8bgSaocpbkbV1mVo c+WoQjJYBbhtA3U5KiYsi2FCC z dGrxHD1seSZzDEcpMc0oxQctn QieOS1zIGSwcxhbBOWwuW3aOX JjvCBobVsrYM3kMXTnzxgbu80 0 SuJaLQC1XCMmvTUjL9ObrF7aS rRlWYYxDBQcA6RvsVOaXMdtL2 27OGeeZhZ8XNGxzwSiT8PuOSO s hTthZzN3o2M2Li4UBYmzZW10A A77lBWan8V5kOA8F3WcDCMqez intqluoBB9XZBbBTErbS39vSZ k TEnhVw2db6N1i382YWEqFNOab D23Ke0ifTmyHNVfpCGBpC7ett hzv5dhijuxNoNcSPTsUBo9TAy 0 MINfaUaqVaYbYCK7NfH4PJD5m PCmtN2tbFkgausayE1cKlu+T3 Z7sIO3fRUjnZrvrYP+PP25oz3 8 P6BeVdyyQcc3KAOlTUY6rDG6k T8jJRHoTOqal2Q7wPT7C1Iomv Stuv2tr5jgKHNgYHjfD47iaRP w c7M4QRAisYT0BCFapJtgYjTpe G93Oyc+VDGzkQrro2PfEecll6 bxm4tfnUl1MjRjFUFcpjNthYl u ESW7v8ZgFf79Z63zWLcuZIUoE JGrEXDeDDVfiUozen6biG6hCu 8+ZDFqlYT7zSF9uH4iWbBjOyA 2 IYjhV000WkPgpSFzPagjb6jml 9yctMg0PrHmYDBezjNsxQkfRY W2h3FqBc91A9WhjOxyt0JjZfs 0 bj34hFZtd5K6yDJ0U6GpFXLxt iuvmEBuwWcwTW8fQLZiqsngLP CksQ0iHUYfD9u4DgLjVzQ7NIm u Z2MpteF8UEQtzSHgTFGaeFOMv F9xzuzeo2gavqpqQiQjPWXxNQ b6BRo2MCSqvXkyMlNkQMH4CfY 2 LCW6iYUklH6peHwervckxU2zB yc+ESw3v5wopEFjZR0gcQC9IS 18PI88lAWqr0U8fHL4O5HwCGT p tiufsnjsyKM2ZTKrONQryI74M h4btGavBj5jYOLvDGS4VMGolT LbG8JdrZ1wUcWyJNEuXXGuK1D l lNJwXUwwB109RYwdHqY6FIZuv rYkU2ArJPZveLyzUeM9d8Q7Ff 4TCF74JV29GW70fMMrz3Q3pRM 9 W1BmUGOyldngiztflCQ2CFJiQ ONyzM74Yx6sfDdxTg6jSCEwJC O8QREezUOwF2UzjY5tYiDoULE w VFMbH1GhxFTaELhxU298HSibK iU4HXSqizAgF1HhBMKdkZfpOa U9m3Q0Bt5MEe40TU15NY81xJD g z7P9jCE8L1PgABGmohefhbkwl ZY5YOGuBHHklU94Ji4kaGomCd 0wWWXhPHO3FPDmlEGqB7DkyV9 y NcIjCDVhUECoK4MwjJHiVUwiZ 730VXsqArV3NMWgoaWkC1FoBY IqiExsEtV3t5M3Bo8XESltevf 8 S2UhTiksxNX+TO51KRWiWS73h ZYvlSPvu6vtaUd6PnYcCRXmIQ T9pOrwCTgeo0JoASCwZ28xyFJ w c2U6 (more content not included)... [facility] Consent for Treatmenton 01-01 Consent for Treatment [id number]#1.00CD:12 7 [facility] Multi-Wound Charton 01-14-20 Multi-Wound Chart [id number]#1.00CD:1 27 [facility] Nursing Assessment - Woundon 01-14-2023 Nursing Assessment - Wound [id number]#1.00CD:1 27 [facility] Nursing Note - Woundon 01-14 Nursing Note - Wound [id number]#1.00CD:1 27 [facility] Physician Orderon 01-14-2023 Physician Order [id number]#1.00CD:1 27 [facility] Procedure - Woundon 01-14-20 Procedure - Wound [id number]#1.00CD:1 27 [facility] Progress Note - Woundon 01-01 Progress Note - Wound [id number]#1.00CD:1 27 [facility] Nursing Assessment - Woundon 01-09-2023 Nursing Assessment - Wound [id number]#1.00CD:1 27 [facility] Nursing Note - Woundon 01-09 Nursing Note - Wound [id number]#1.00CD:1 27 [facility] Consent for Procedure/Surger yon 01-08-2023 Consent for Procedure/Surgery [id number]#1.00CD:127 [facility] Consent for Treatmenton Consent for Treatment [id number]#1.00CD:12 7 [facility] Multi-Wound Charton 01-07-20 Multi-Wound Chart [id number]#1.00CD:1 27 [facility] Physician Orderon 01-07-2023 Physician Order [id number]#1.00CD:1 27 [facility] Physician Order [id number]#1.00CD:1 27 [facility] Procedure - Woundon 01-07-20 Procedure - Wound [id number]#1.00CD:1 27 [facility] Procedure - Wound [id number]#1.00CD:1 27 [facility] Progress Note - Woundon Progress Note - Wound [id number]#2.00CD:1 27 [facility] Coding Summary.on 01-01-2023 Coding Summary. CD:601423BN:[id number] Gh0bW w+PGhlYWQ+OQ4NOCLeX17pcZT cfJ7JM0oXBP3KNTPTWKIUPX5E XB2ibOD7QIuaL8BzwnTw ZftdcBXkVB49AWw6TVY3wJcjO BsiiC9yuKBmD5a1EjBxVW33rR 93SAejSWHwSvF9OuJakarhvXM y P1bjAsBcpFCmQvb+PHRhYmxlI HdpZHRoPScxMDAlJyBzdHlsZT 8xLn6uGDIhXJQyqInxqCXeJeY j l2ngMINoQHyhIB6maEzyF6Toz YW1WFElj7w6Vz26cHG+PHRkIH B8pUkrVIqpw866KmWnf8rzEAB 3 wRTrKVnoNVF4O17wa6E6LTPgV QQeNUZ8fDO2kW0csJjzbessP7 JqoLXuBjY9XPB8lZSooG8qdEy n adaewJ7zHpg+T45WBT0WDYBYH R9QFna7J4YrEeekmLY+PC90YW BxTO84pGUnvNGzq7hmaQb0AmP w IOLhGYY6gHjkBRcqe0CrUSPaR 45fnDHcm7Q2NTTcaGtalWRnOe BukVR3yI3rVQykvjufc4wezmj n Zoomp1rfah45gY83T91eKEynP QTnGIA9WBAoYQLmbBwdjm9itT 9wIi8+ZMxsd3gyo9uvgBp3MtD w AMAeqmPtgVruFDN5g4EqSe11K 1XmzMalj8JhVrc5sv90lHEdb1 R7wUT7YMhdPIGzkK4wTYjxZwQ 6 SVDhWpYvhD38mMIyGSetNg5bg ShooIpzHY1iZWMrxfyoYTOhwS 5tNPXrkULhfBpsRZ9hYUOpccl m b904FwSiGNJ1NJGkyTMmT2Nmx R0qKgQcIJUkJEHsH4XnxYUjRD jrM251OQysVoX1PFJubtDlB5X s PHFpdOysPtL3m2J5Qh6Wh3Kwb rpoJJR0HGctKFNyBmCfPeAvRs H5G2YrTwo8HUSfjHrkWY6nT8L h ZWSamlsetzzmtRU6APGsTIOvj H99pJDdWQadOp9ab3X9n942OB KtKJJabU83Ye1ggNlaUSLaxLK U bI1hlnrio1mrayanOgXhDLJfY Yu5PDy9KYYyjZwtSjZoXHS7Es S7BND5gVPnqF4mmTiahntfwU9 w Oyc+R89wfY1eAQY2QVY7avdqA QLvimWtYF81WB98J9CbRffgvE FibGU+PLBugqSckEloIJ6xGlX j f5dlp0HgMVepG2PcFRTiWPghS gy2XOPsDKN5eKL5pS3jNGWcKS nqf4U9nYZ3C3OfhhYoza8ea6b s BRVuCEqoC88dpVQho0T5HBPtf AM6OJEdxAqxAeCsuM87Chj+PG DbtLsfd9KyNckng1lxz0swpGf 9 PzWzAKRehuQaoEapRMY5s7MxC t76N11oGOdcLLDrUUWcHUMwBN WhxXtfls3gbZ5qAy7+PGNvbCB 3 iEV3fT3iNNDjWrX4SNlcB845T nOcsSGbFvtgr3aey8uhqEr7Fj ToNRBpdmMyhWjlETS7t3KrEo8 8 E78kFHalHCLiSPKwAFYsPYZyn Bxbda2kyN1iNf3+FU3iy0ripg 19fW08rNG+HPMcMOA5yChbIKb w FGBtsQ9sWYsuKdM7CKQqIsQif S90bCNqBGvoUz4kjMemdZuuTR 0yDHRbqkypj101BgRad6uxCRF w kTHuEQnfQUV6I04qw8A0YHVuE PNkUWZ9zYQ6eD4ucNbbkgrghE LknUgyijUwqZrtOFfwLOiuY60 6 IHRvcDsnPlBhdGllbnQgTmFtZ Os6H5SjIvn0ERGshIowTB2bbJ AmABawNi6mjDknlWoyKD7sXJM p cblmh388HwRtg1muFCRwgNAfO IrxUKY6H08uf0G5KIPrASEhAJ M9tSK4wN1alUxibfmghAMpyCp g auVeuKwaASvoKOqqO882SESgg NbgUsNlnnStGNZvqCT5HK81BX 41aOCsr8S3sVF2K9YkAWVwhxu t pvxdxJZ0YCMbFBEceK52Py8qx PrfZf6wTHRlCAA4DVOodXKvS6 UnkD5bCtDqPYQjKVSgB5KnuAA t THrcY026WSaxLaO5FXNnbhHeJ 7RdGKHikRhtMmG6j4C7Vq4YL6 V8DT53JW36wNUps8X8dJC8D2U h BQFbqzmoijjvlNT4ZLPzUDGli J72Wo0rnSxbDz7jYBCwDEG8MV MugZJpP3BxzP2vFfDoFSEfCZM w J3VgnEVuIErrC271XSgfKsS3P DMvqrHsH8BhFIQxiAlzYuH7m0 C1Qa8EVMq7NU39WO37kNWil7C 5 dHR7I5NtRVDnsncizyzrqLZ5D FBbTJQyzL98Tp0hhMzjEt2wXK XrUAQ7ENRfyEKcC7PphU8gPiK j MDUxCTDxX4JzgGUdRFsjK845R CfnCiF6ZFYskcXeF1MjELRccS puMiU0y3P4Um6RUBWdZE38XTC 5 fLD9KW30BV75W1XdMgvieABmo +PHRhYmxlIHdpZHRoPScxMD OxDzAmiEwiKN6jIy3zQSAlDYK v zAzocJRaRdTig2alVMJkTEouQ I7bdJzzZ5GxkYJ1QRKdc5f4Vu 39P06mL5ZgcLM+HWMquSZ6zBA 0 gY2iLvWeTwM2NUbiG048HrEdj LRtDyvba7bls6fqvKe1XyT1BC KpciBupIfuLRW0f0KjMu04K80 s IHdpZHRoPSIxNSUiIHZhbGlnb b1yzW1tTf3+ONLndQA3mAX6hB 7lKhLoRcZ4BEnyS569SyXihDA v Eccxn5xem1zpoHw8VuHiGRYyb aGwnRihTGH9x7SaEy70Y0XjgZ rxp9DhHeo8oj72nEJdo7C5eEB 9 P8FfHIDphvggjPDyyHijFM1bN ZWzgxnqWVDioA4nRLFfH4d7Ea YkLkP4GThyO5UtdlD1OTNxcHJ g VCiuXAJ0K09qo9W9SMHbJIVoB KJ4oFT1aD1gpGujstnunMLrqF ltggGydBoeUPwiUQffZ073IJX v iLczMYIaqF4kZEPchAJuzGxoC F6xHREbzlqbAjGTZk2MBsfgMC 5SYFaOYKk9X1PkTdf7LIDbsRu s JG3auRAmBWdhSe7cdPnmvZvpP R5vORCiutfsPAXooX0iCBGnjW BpjJhmCB2rMDOaroczl811PjQ x GDI0ZAJmqSBdM7LmrV7aNmHzC XYuKPKrF6WatFEnLXroI282IL ndEbO8INWbbzScF0EtNJEujIy u UkB2f1T9Zm3gKs7bLW2cMIC5K N24VN76eUYko1W5fJY2H6TbOT CidwzgsowfxOH0JURsIAMshQ1 7 bMZdNUxgFc5la5J5w459HJVpT HEkvB04Ow2rbUabXNSetPUNrH 3amcpjk8euwgoiIiJlNNHeVFn 0 TAr7ZYGsaBwmQzAxDKQ1YjV3U NC6dRRmiX3hhEhhgasroJ2rGr c+RfBmSGIwxeM6W7IkUek2GUM z lMjmWU9iaUKyAIhfRa4uuXvra KoxPR9xDWAclbmhYDLarG2bYL FmjCStaVvxWQ1mSOEqhwwcj59 0 CjNnOFE1CYHjiONbF9IsjQ4yA tLoWRBiVOXyE1HbuASePSlcR9 10MUbsWlT9HLSwijNxL7OcDMF s wQxyIaM8d5B7Zw2WFZdaYX38Z U73sAXyw4Y6yIS3R6SaTXTmmf jiqhthyEI9EXTjKGMbnK96nHG k QZjdJe8wy1S8u079YDHhSEZue K14Ed9fbAemDXJpqYHToZ3dau glf2mmidkiJqRiMAPxRMq8HIc 0 MXDhpStfZdHjZZD7BbQ6HGU6a CPmjS1htWbarrrjaT0pAvx+T3 C7cVG6zDGqxKrijRX+SF19pw0 8 Z1ZsXxfbBjm9EFZdVSQ6mYY6s M0fSJLyRKkex3X1iZP5N3Sjag Bllc3fm8jkJEMwOZqaQ88qwOH w m4G2KPSitXL1NAFzvOefVhNrb G93Oyc+XLChnDoli1JjEyxpi9 ymb0dxuNf3HnTrOATieqCaoCa u KZB9k5QnIv59W82mWCnfKMIeI KHyQTBhBOFniIbudv3ztU2uGp 8+XCGlqZV6vSQ9oZ3cNsGjRxM 2 AIvgT373TxYjxQTnAkpsu6mhv 2mkpKh7YkWtONPywoZdlXqnMM B5v0QrGy82Y6QmiEtxe9AfBgb 0 te03rOBhb5P1hRI8P6IxQALis oxsjMTszZleOQ0yJEBrcujkJW XwgG9nNCTaF3y2BjRgLpD5AMk u F4PblsQ4OXClzRLlTUZpsIDYy V3uoavmz9vqefxxNiRnQZDoRO s8GDi5MKEsuEdoGtPeWXH7KzS 2 DCG3rBArtJ8kvUwnuyzbhC0rT yc+GDb2n6fqxIXdYC2nbCZ3CU 32PG08oNNla0M9aLW3T9OfQSC p ouqyfyshaVQ1VEMmFARkaY15A u7kyTjxRw8tVUKyPCR3CPLrsK RqZ3LjnL3qNhIgLVZyHJVyU8V l sDPiJAvqL209OEysStP9FQYzn vCrQ6PuFLKlxYuiZuO7n7Z4Iu 7EWK85UC56XQ06pRHfh0X7fEM 9 D9NxJABterptjawlqTF6TJSfE MTvgU91Hl9ofAvbWw9xMOJpDX X8QOGldJMsP4OxdT2sZkXzYGK w GKXaW9WlfRCgHQzsN467NAacO kQ3HPIbtbUnJ6MlOKFqfBtuZx F7i1E9Oe0URu87WD81UC51rDY g u6J4dBA9D0ZlLLVuefwjisufl AZ0YUYhMVWuwI24Mw6omDwjOy 1zNZDxJWJ5FWRocWCnN5QntL3 y QdQhMKFfRFEgL1UpyEKxUDqmS 275AOfrWwJ6NKWdrrWpR7SqXS FtmNifAxR4u3R0Tr2RZPzbwsk 8 J5CcQjcmeKQ+NI93EQFqYT49l YZnaMFoi9dioQy5AfVrAMUbGN R7uRgyDIweo0ZyTXZsU02fsEU w c2U6 (more content not included)... [facility] Consent for Treatmenton 12-03 Consent for Treatment [id number]#1.00CD:12 7 [facility] Multi-Wound Charton 01-31-20 23 Multi-Wound Chart [id number]#1.00CD:1 27 [facility] Nursing Note - Woundon 12-31 Nursing Note - Wound [id number]#1.00CD:1 27 [facility] Coding Summary.on 12-30-2022 Coding Summary. CD:[id number]:[id number] Gh0bW w+PGhlYWQ+AS4HLASrZ02byAC pdT2JE1xEFT5RTYIKGGWXUM2X ZD3rmIV9WIpxW0CxcpWa WcfyhMEeOJ68GRs7KZX0iTfmX OikoB8siHJqL5s2HcXuSV93tO 07EQguUCNiUgM5VqIxwcecsJS y Q3yxOdRwnMTkHlp+PHRhYmxlI HdpZHRoPScxMDAlJyBzdHlsZT 0rPo8wCVNfZEPzpUgkaCYoQuH j r5fqUEEoTTluBN1qnAhjC3Hzz YK1WOMjy1a8Zt53vEZ+PHRkIH N4dQycYWpci390GnXgm9nqLWB 3 qBRiABhvYVT0P76yi7N0DJRmO TOhPSR7mZJ5hQ3dsHozygpnZ7 WrwTGxIwL9OPE0fWQfhF8vlCc n evpjoW1bNyz+U23HTM6YBDVEY F4BIih4K5FiIykisOM+PC90YW AtDN25fHVixJTtf2bbuRz0YeN w ZBXiDIC1tSotQPrdu9TjJLPeK 32xxLFuz2Y6DHLmpXcnaZLmSi TclUM4uH0lIXgknwiag9qwgka n Qsutm2zmoh32zK08A12kIKarT QHeLMV2WRNmRKLwnSzgpc2rrS 9wIi8+JFdnd0erj3cijVy3FtN w GOQphiLzyJnyGCM9f2PdLt12G 1OmdGbzo6KfTtq7lf43tLWes6 U5gOY3VArsWJTknY0sZKvfAvZ 6 LUBsZlPjnN10oJAbLLrdCn7tz DnayMhkHU1xKOAqxubhHHFrrY 5uMXGivKMpwRxgTV2jEVJqcdb m b003EzHuMOK9QHRbuSXkC9Cib I4mFiLtLDRqHJBzI0OcnITpCB amZ037FBflAoK5YZTmrsYlY6U s RXEukSeyLnA4z1Y2Yg8Zq0Tgl itaCKH3IGifYCIrIhUlBiMfMc U9B2YmCoq8VDHkhNtvXZ5mN1A h BJQezfkpaaljfLW0LZQdUXRwn N67dGPqHHwnWi7gb3Q7l973WK VsUCHowN89Uc7peVwpYSOhhCX U eO9axvbzj9vzlukpKrCrWVYlD No8QWg0KQXxuDbjLzXfFLH4Ja H7BTT5wCOqhA0nkDjhaxfjcK1 w Oyc+T58kxC0cKTJ1XTV2hlfbT IJlnsEnQC53LK81N0PjRqsclL FibGU+KZQpkoPyvLdjGE7aGxY j n1ggr0YdDCdmV8KcAPYsAPbrM wf3ZOVrAAQ6jIC9nW2iZPLxHL mes8J6oQA4I6GgrsFqid5jr1i s TYDdGXjxE36xrJRqc8G2MQVlp PQ5UYOnfXavQmBeoE01Dnq+PG NsqNwpq7WgAiyqj0qrm7qgxDr 9 BhBnNBOfgcCstXjgCGS5b8BxA c79S65iVWjkLJHhEPKqYHIwJH XjkRflgz4ezL3rBo8+PGNvbCB 3 hYA1qA9yOGPrFuX4TUqcS366Y kRulJNeMkxuq6zwj2eevZt0Xb KuYHKkcpDseQdtALW8y6ZjYs6 8 E96pTJkrIERqPWCnYJOdXWXbo Ueihx7ecF0eBf7+II0vh7raec 06dE91qRN+RHMmCAA2aZwzFDu w TBYhoL0tENvzNdZ3RYWpXnScf F01cKBzGVvhLg6ooKqjwGjuVU 5zHJQxmqaci269VzSfy7jbIMD w yUKbBTonMQU3K69ro4H1BLMrH RLpDGQ9iGR5xG4fxDwbfgtptY UulXqmssMuiStgHEraCRocJ58 6 IHRvcDsnPlBhdGllbnQgTmFtZ Wh1Z4WuObq5HPThlRxpBR9okT HoFRiuRm3nuYawwPkoQG3kXPP p ooxlo307RiViu8djWERwdYSoS VpeLLZ1E09st9A5DBHnSUUyXC K2uRE9tM6qhUrdzletuOBknBt g laLkcXleCQetYThxT740KCMbd GqqShEwynFpYIAbhRL3AW35GG 91zTBwt3T4eSJ9Q3UgRHYiyhq t zmwmfPS3WIRwFATaqC39In5gk MymCe9wYJDpWIL8BQRduEOnX0 DpoO6aIxHwFQFmXBXsE0HftKG t XCstB392FAhbYyD8WIKnzaFkB 2MsZDJfiLunLwV0t6P5Oa6CP3 W5RV60RY21xKWzy7N7jAW4S5U h TJNnuekbrudolLC9ASGjEBShk Z12Nh0okPcrEd0nHPSaXQC3RC BgxGTuH2YpoT2nGyFvNZItZIB w V2SjhYAuTUgeA456NPllYkV8K BZuuqJgM2NkZYWhdYoeZxS1q5 O0Sp6YTGd2YT00AC78xHGmd1W 5 eTV6G6CgENVthbllvnhwrTS3G WLcGQUudX15Mp5iwFvrEe8rXY IgEKW0RZZofFBoT9TtaK4eFdA j LDQoIOJaS6YqfEUaVPpcL181N FggVxX9MNXpalWrD2HsEYAcrP ykNrB7u0X4Ee3KRKKoCJ49MMB 5 qJG2EQ00VE15W5XdAslwiDHjc +PHRhYmxlIHdpZHRoPScxMD EaBsYkiEsbER1qHk1uUZBeUTJ v aBkgtAYfAzWtu0njPKAhGAshP D7gjRbcG8PseHP8MUBqg8a4Bd 50L91pH3FlpXH+HLKksWL3eLZ 0 dB5dYaJzHxW9RUwnC202ExRnv WUzIpnsb1byo9ryjBv7RiS4DS SmcfXphJkfNTU4p5MbXq32P51 s IHdpZHRoPSIxNSUiIHZhbGlnb a5ukH6zOf9+EBVcwST9aME6eJ 5jYcHpLoI4BMwxB633KhZcrKF v Znysm9xyi2juvAv2McXbXKDae ySeeBwmKNP1l8LiBz08D9QggS fnk9AiDgg3su72tHHvs0X8mOZ 9 Y0QcJITmzsvabJXkyQpdRC9lT BBpihmbITDfoA3gCQYtG3n4Ta ZbYlE2PXclH5PivyK5DDXohJW g PQsuTUH5G64xu7N1OSLjPSIfZ CQ7rID4uY4htGfisdjmvEAymA dqqqFibUwjFQhkVJxkF908ADM v yEknWSYkyR2dLGTecDWqaKzrQ I5dMLGuhzycYlNCXa3UTpgmBD 8QHWbHWKc0N9EpWwa5XZTnwGh s ZD7feWFoNOtjAe3brCawsSbfH R0aIEDorbnlLBYnwH2iTHCjtZ RfoHtwWF2hLICbdpulg456PgW x GLF8NODizDAnP3JyzK6tMkGrY MFjRZNrV9UebKCuQQlrU679CD dlYvO3XIQretQuZ2XvPOSmoFo u WgZ2v9R3Mf1fIg3wUS4mGVK8J E54TQ99fSKri9F5uJE3I4EoFV PfzcsoupoakAP4BEXqTAAjiP4 7 sFVeFTqiPu3to1T3d465KMKfD ZBszL64Eh4pcMiqIJDqhRIGbR 8kariel9qdbmrcOfWfDVZeABl 0 XHy0OVDwgEjkGfFsSDE0EvR2X ZU7oRMikO2dmYfkrwbgpQ0oIp c+GcZkCQThhiG3O1VcKsg8LNP z rXyaFH2neFWnRWazEo3qsErsp TsiUJ3vVZYughuuCFWhyI4rMZ QqeEVhgJnbUM4gSMOrybpjz39 0 JnRbPHN3VQMnwBAxA9YzvK3yL iMdPYBvDPPuG1FhdIRtIXwfX5 64MXnbJiW0SXGrmuNdT2CiHLN s hFcuFlI2v3H8Av2NFCeoMY65V F67bXBti9J4wXC9J8JsZGQmzj ardmjdzVB7QHLsRGOovW01cWA k MOqpEc1in8M0d469GWTgVDJdg D47Fg5ixAziKXQtxEMLzX5jfd mtd8rkrlteTwSbHFYbJFe8JWj 0 GQDvuVcfVrWdGPB2LlL3FIA1l ZQdyJ6jyKvfgzjznS3mRio+T3 X2hAW7cYAqbKocwGM+KJ73ed5 8 Z0AxAzdyYfo6WEDzAIK0nPZ7b Y5nVTJhRPykd8F6fXX6N9Epjz Dsvc0by1duPRRzJIwaY10otST w q9S1RCUsaXA2KRQylIvdLuVyv G93Oyc+ACOlxNaxk5GvKhlyh9 fmh7jbzSz9IdClVQXpwpQfjPb u YVC1e6WrUh33F22eQLnwWQTkP HDyMBNfNRAmzHgtws2fzG5aWr 8+IVCggFD9rSE1hD5pTmOlPiR 2 RXglL983NdQcfBHbGvycl2ypi 8bjwFz7IaPwSDXmhwQuaRbvTA S3r0LfVf39U0UjfTqhy0JkAij 0 lh67sFHtu9E9mSE4E4RuSCBvo hmujCOuvVmdEF2sHCInmkxiZZ QhzR2sXXFiG7i1CrVrHeJ7TEo u R8IojfA7LIFvdIFoWWMrwQRSz K1lvrcvh5flwoueUmOzCGBbAF c4RNe7DHXswOnoPjJaOAN0OaD 2 GEW7fYRgeS6dxNjxdgjtxW8cT yc+NSb1j2ofoUQaWY8ftJM9IE 93IA55hRYlq4R5aDY7R1FbAZM p iuwuixvobUI4ETDwESXfdV76R k4eoKodNx6iQSLnDGB0RBZwoE HpH3YabO2iAkSbMVEtRQZgN2U l oABbJZsgQ131DYdoIiR4HTCii kRrG9MfKUUeyNucNbZ3f1M0Db 6RHZ19OB50CK80pERkf8W3yFA 9 T0NbVJJekncazloijVO1BMCyW RFrrB48Zb2rtEkuAq0yVLToIP Q0UECjyTRdT2RqxQ3xKqCnHUQ w UQKyK9XecAUaACbkQ602JFihM oQ5NEVfrmGnD4HaFEKifCrvUo Y9j2R1Nu9QVj15ON87QS52kIN g z4C8gFJ5I1XpFIPyhuxwvfauz DF9MADmKEHpxH08Kl0fiZtzTo 6vRACyZJD8VJVqhDCmB5PocD0 y KiGmGKStAZQgX8DguWVjLXpzA 852SBdjMcY7TTSdtoKeP0EkNF VthGgiVxG1y9A4Mr3FRHlnznt 8 U5BnYlbxdZI+VM23AGJdJE93q TBpzQRws3sykDh4FqYuCFGvVO L8fLmoPFjer9YsCGJeN19hsQW w c2U6 (more content not included)... [facility] Coding Summary. CD:[id number]:[id number] Gh0bW w+PGhlYWQ+KB1EDEKuS91soLU fuZ8FP8sWZC0GEGRAFRQRKE7I KC2hvJG4AShsH3XpdlCa LsfciSBjFZ12CJx2TFN9tOnvX IdoiG6zsWKaD8w7EaYaAJ08yG 77BCfkDIYaJzS9IhLfinmxpGJ y K9ezTbXfsDRwOoz+PHRhYmxlI HdpZHRoPScxMDAlJyBzdHlsZT 2dPs2yUPLrTIRrjQgkkIDrMmW j c1dlQMMtFMbwUA9onAidV5Qlv BI1VDFnd5o3Or41tKJ+PHRkIH U5jRajPWcsd936BiMsb1mvHTQ 3 fWAbYOfjNAO2B90in4C0JKEzP GLmMYN6iLN4zS7djOpqnljmK1 HtqYFfGoE3ABX9vZQpuE6xxWd n enhbgF8bRdh+A15SWG4DXYHCD B2LQnc9K7VnIkfrqNR+PC90YW NtJI94zIZjvKBzr4osuIf0NlV w PVWtBXQ1dTppQSdow0HxZJJnC 38vuWPmp7K2NXRxxVyegBJeWq IxqMQ8yC3uIAmaulslm8wmnnj n Gdwwg8zzpq57hW05V89xUJbxL OXzHCW8LZUtSIIdaBjyag1umY 9wIi8+BOqlr9bwq5kniRx4YfQ w PQDfkxYqzNubGIB6s0DtZe67B 0QcoPzvx3ScDcc7uw15eKCop0 R7oMM2WWreEEMnoP0wROwqCiC 6 ATTmMrZyuQ94cUQfZQepCx3ef OmxuLttUC7iVVXpyaybCJItxU 5qWJIpqHPmkBahTQ1dPROgxfi m n453LbZzTQN1OZQmxCAhV0Ytl A2nTrFiMWIxNBCpA8BcqIIrLN ulC323MTtyGyR1KYNczsLrM3U s TGFdrOfwQrN5u0E6Ia9Id7Tlk iypGQH8ZVpvRRRsVbYrMsXqQi I9M5CfSxn8MGJfuVufNW9uS6D h MFXlyisvdxpykCW6QTXmARLtl E98bBKzFAwbUa3ga5R0x950OB LfZMGxjU31Kq7zpHqvFDKilCV U zL4aysfyk9hkjcpqLoClJSRtY Na8GRy1QNQxxMmgZhSxGPU4Bx X2YTY8cVPjjN8mjQtcatnygY1 w Oyc+R26knL8dUYI7LZH1kfcmZ YMtsxQyLH10TI18O0DtImhjyX FibGU+HDCpcyQcaFqpXU7xVrP j m5tgh0XwMBddI7ZlPLVoYGtoR vo4VTQxIUQ1xGF5gK3eKWInNV pyn9W4oZK3J8ZdqkZwrd4aq5w s RGKaWRspS82hhLOcs7G2OWFpi ZV5RZOvhLhkWyJaeK79Guw+PG YolLuld8RcCvufi8eyn8dowYd 9 ThNrOLLxhcDylQwxVST0a1JpJ m10J08yBZpsTHKvEKPuLQQdJW ZioZwknl8usM5sGa2+PGNvbCB 3 aOZ8rF0eXUZxWaR4VJntV261L uCuiXXqFrxwd4htm0pkgRq4Ih BvNDSgkxDohLuqUIC0d7TjNb0 8 Q35pOHvxNKKxIBWvAOKwZVWza Nywfs2njI5iJb2+DY5in1tmzn 74gB53cWB+MOLuMKP2sHjmWQf w IYCacR8iXLqbXrM3LWOpQpPjo D84sIWoLBtbDu3hpZojsIetKK 4fZPYejdudy221QdRny3yjMZD w xIWzRKicFBC5O65jc7C8TFQnR OKpWUF6lRD1gB7gdFjzrkxctH TvqEuxkwYpmHniMLhzYVrbZ70 6 IHRvcDsnPlBhdGllbnQgTmFtZ Ny9K8LcXua9WHZedIguZF5ibD YuJJrvFs2hoQvlmBjmJX1oKIJ p ovcmh745DqGvn7gfHTJfyWDyF GbeKAD1U07ym9A7RQJfGDXeYT R0gJJ8yQ5izNdwzmsmtSJpoPp g mlMgcEerVPusGIimX338VVAvh EtwTwOvucYbFJFzeWV7LI72MW 68fIUmj0A6jWR5P4WkRDPsmul t ipoxfTG7NMBxUDPlcG18Hw5br ZdzTl5hXHFiGVV4IJJyoPNrQ9 XssY5rUpUvLTLeIBPiX9SvsPG t WWmeO021FWvzScD8EEZfhrFzH 9BcRPOaqCxaQuK8d5B8Uh6NO6 D5QQ29KP01oOOnu1I4nCH8T6N h AQBrpvfspnbpiSH4LKSiXBTld E63Qn5dhRlpBl7yPNJrCAN3EK VuzHYpK0NvjR8rUtFnVNBfOKQ w Q8SymCStFKhrZ433XVvuRnA6N DWbbhNvL3DaVQWlvWbdFuV8w5 T8Cc0DTXq6SK14IP13cFLft2S 5 mHU9B6YsBWAyfelephqvmAB4H TQiFKHfzP82Yl7fnMuxWx2zML JlSME7CSQddOXdX2OueR9bJoV j DAItAVAfH2WubAMfMDtjJ760W IfeMzB4LKJgijXfF3KfUAGvbC xoAxP8h1A7Jb9BPKJgTV25NZB 5 eQB3ZG39CU56Y1NxAzdwwVYtu +PHRhYmxlIHdpZHRoPScxMD NzQqSugWunYH1yFk9sWFRoNUA v aLwypRSfZeOtu2fqUAFxRPwmN H3dxNxwL8BkaHZ5ELPzu0w2Wu 58U76qV7WnoQU+GWUthWE9fOW 0 aT9mDqBaTmC0XTfjW393KfMct MHwTunfr8kjv0ipjNr8OfU8XO AkyuRynNrqSIT0b3XwOv36Y97 s IHdpZHRoPSIxNSUiIHZhbGlnb a4ppV9iEi5+NBKnpVC0kBQ7hV 7sCoHfYiL0IVbfB197MaYzyMK v Pixkt6etn4edhCe8ZrBdOWNfr cYrdWfjKYD5x9UxPd69X6GidL wis3VzKnb7vv81rCQqv0N8sLA 9 I0NvSZJcabvplJFnrTlbYI2tH DYlwabkNIIpvO1dNJAxC2y8Dy IdXaX6PJhyX7ZekyK0BZRwwHG g VPqoQTJ9R23ux7V5LJYpPQWqY DK4pFL0dK3fbNzqjmyhyUYgmY usatNotWjwGZauBPgnD936VTO v hGmkUXAshU9tZGCckQIulKhuP U3iGZBoylxwDuSXWr5SPgbjKI 7WYAvIITa4J4HmZim0FCNkbLi s WY1nbAHnGOrgTh3suMzwxTzpI N8hFNSanaxaTSTwpC9uJNGpkH LbkDzmGE1zZUGslmdet381QgC x VEH7UOBtzCRwP0ZhkR6pCgTiL IZvIKTnB8WkxEEkSXqqC798WZ ecBqV8IQZkkjNsT4OdTHAofLc u DvL7n4C2Ro0vPr5kEM6oIKD2M J91NR20bYMkg2D9jVT0I6NwDR WfctcewyolxWA7SQAvUSMtiV9 7 jHWtKWcwJa5zb1P6y468QFOaB BJqmC84Yn2whCnuZWWsrRQKeA 5bzhidx8abthlvJcXnSIHjOEd 0 JBm4DXZrlWfwFwXfSOU7ZrY2D SM8hHOmjD4vwVehnffuiT3tBu c+DmLuAZAywsH2X3ZoWub0HAK z wEmhFZ0ukVJhMWmqJq4aiNlxa ZgmJP9lUFQcyhiuFNRuzR5pSA VmrFLtuUebXY7oBKAicbscb33 0 AbNyVOU4DANzcKGeD4VzgW0mF dJcYBXtIFYgR7AwgDUdSZjfA2 97JIvsOlZ7BJOafiLfH6KzFAQ s iTsfPpI1v1B9Fu8QKAzxBI99Y S85mRExj6Y0qBT8D1NpZDKbfj crujcmzNF2OSIhCUOovQ87zWW k GLrbTj0xh8G6i250RMDyMFYbg Q52Ob2dfIjhHPRthRRJcF3zhe fop5hekcizIzUjHGXhTDb9LXc 0 RVSxbJqqVgGeNRX5FnC3UTR3q KGuuZ5bfXapcsodoT1rDtp+T3 L7aUP5cELewPkxxTQ+KO13ao9 8 S6IhJcqdTha6XVKtLXU2lFD5i F0kZJSmOSutp7T6oRP7C1Bkre Nbht4dd7grGXCkFQadS72atMX w b5S2UWYbvGY6UWGfyFmrEgLra G93Oyc+ZMXwwTatd2FyRfugg9 rvv8zlbGj3YeXzECCbmhSkaKn u GZN5w1KlNc17X09jEWzcKGMaW VVjQMSwIANzgSxlta1miT4yNp 8+DIPwyHW1mIE5lV7sMhUnHiZ 2 ICysU651UpDknODvKcmtg1ybi 6lhaVf0AaXqIUFzsdFpbQxcXU T2b5CiPg06U0AivJiaa5GdJlq 0 jp17hQMfg6M7fFT0X4IeDQOjx ljqtUGioNpzVD0uAFValfgbAJ QhjJ3vKLFsL9j8LtRpTnY1XJw u E8AynyP5KZCigSFoUSEqwJMDi I6xflcms5thetqdXtKcHYVpHO l5PNy3IFCicPvdDgPcNKN8SbJ 2 HQQ8fMAyxG5qtUpqigeeeD9wL yc+AUe3n5ltpMVmQD9anWT4CW 73OC36jFAum4I9rQG1U0YqFJK p mujamwdwoVQ1OGXcIMIskQ91N n2orAmaId2zSYFgWFS7BJSnbN QzW7QimY5iHoQmZMQwWGUwD5K l bRZpVBbeB095HZjiXeF0MAWbh aFzY9PxSYCawFfpMeY1z2Q4Nh 9STZ85LP78YF86rSOuz0H7uIG 9 U0JrXPMdilpnbngsuLJ5ATDyR KGluO21Rr3fqAtwJc2gOYFvSK F9DKQqlSUwT0TceA4bEoBfLUR w IVFjR0GokDCpFLtcE414YKmfY pJ0EHEbmbDjW8JeRIXkfDjePm U0y4W8Jl5DHw25VA49FT43xGU g q6R1xUJ1O6XxYFWdplzvethut PO9FNBaUKBqsY69Px5euUufOm 0uGOKyMRG8DRDpzNZxF9SlcW3 y ObWzTWDtIOJcZ4IemZZoKPsyO 639SUwhLsQ3ERAxyjXvG0RfDU NmfCndKpB1n6Q7Zl5BTMqwnvl 8 C9EzIoddpGT+YF02GBTnUJ03b YIzmZSnu8lvdJs4BuLyRTLlPM Q7vTxwBOtfh4VeQFNbY53vmSL w c2U6 (more content not included)... [facility] Coding Summary. CD:[id number] Gh0bW w+PGhlYWQ+YV1HKPWaK22wjXE uhX0EJ1zWTM3GCWWAUWMXKF1Q UU2adOT2AZraQ9MparOv VwjbvFLhXE73OWo8PIA6nNasI QumhZ3udKKaN6l9FwUvJJ25bZ 28UIjsCPUlSeE4XcQfokeiuHY y L5bzHjBupTZjQst+PHRhYmxlI HdpZHRoPScxMDAlJyBzdHlsZT 6iRz7gRCCmZCOcmVehuCIcBzZ j b0cqPFBaJMolML3teNucC0Rvg IF7RZKmb2x7Rn72lXZ+PHRkIH L0nXkcSQyfi363CpIev5nkOFV 3 yZZyYNduQHN9K05sn7O0EXTkZ NTmANF5uLS8kQ0kiBwcuqqkC3 EbuVEbYsY9VIK4yYNklE3evRa n hnigtA6bVfe+H01VKL4GUBBTL Z7LAgl1W6BkYqegsFM+PC90YW MlOW87gMTjyYEza2qhuOq8OwB w TLSiTBE6qImtQFijr3XmYOEhM 51avEUfr8S9LTVopWtttWYmMt EpdGJ3xH3vBNyzspiph1mlrpa n Uxpin9ayxk87rH36S00vJUejR FAhOHR4RZCtHMYhcZibhs8ysC 9wIi8+IMpeb2rnn5xesAt0ZeQ w WXZailEpuMtzLCS2j3VdNa84E 7JrkBjyq9AmHis3jd87rSJki6 F1nJX2IYzhLTNnaS9hVWziGiG 6 ELFdRnRdcA39yEZyKXsxYa3iq ZqyuQlmKC7fROAnpptvJLZqrI 0oLATasYNmoMquPQ7uCHRzdnh m s252LaSdXCS2YQHurPNiU3Blx H3jQyTcJCItVOCmY0QkeKFfTW pnS387MQeyLeD0VNYglmGjG2A s QCEmoDxhDcV5f5B2Zc3Yg2Any zddXPE7VHvdVTGmLuKjVkIbXn J2Y2UfRpw0SQZneRsqUJ4oP0U h TLAgowhibqjrbOB8MQKtKQXcv L03hQFaLRyaYp5di4E2g007FA FjOKBgpX68Sd4yuOioPXRdqJC U cT5ofaqnp9vmhumvYdBfBIVzJ Ic5SOr2ZOBsbNwoAgOqEYA3Qa J1JAM7fXWzuJ4qhYzxcnjrxI4 w Oyc+Z97kqC5jVHM6RDB9uuawL FAwcuJpCD93SO67L1XcRfimkB FibGU+JQOnnkMffGfyZT9yLyU j t8rog2CfUZumJ9OdWOVpHZwdF nx8EJTlOGF6fDV8uW1gMBPvZR wfg1Y1hRC6A6YtzcOapa1lx3a s FZWnGOrzB30xtTVzd1C3TUBjs WD0KQKljSppIvLysX08Jiq+PG CxqGjpy3CwSzgjs9tdg6kkdDu 9 EjDiAYOhhoHsfHvvGQR6s6GhH r85N62cPQcpZUKbADGfLQDcJR QmfHakpu2piD7tFq8+PGNvbCB 3 sQB5qC0rPKHuKhP9QWpzV678W kRrmNNyWbwcc0zhz5rruVx2Yn EoBPTvalImhOlfQEG1g9AnXq1 8 A06kGIwhRRCxSVPlFIZyYZJgo Bqlfy2dvK5bOl7+UD7ht7iggf 37sS46qJY+VAIaAWV1dQsnFYy w KTNpyD5gQSopIiO0NSFlBeVmw D96zXLeZNrvYx3uzLjpbJoiGE 1nFJOrqtqbc396BlDjh0kwAYY w bTRbEEikDQU6Z34ny6H7LBOeD EZpVCP5pEN7oQ0vwBawylhejV EttFqiulSxtJycTIcoULkhK89 6 IHRvcDsnPlBhdGllbnQgTmFtZ Km2D6PuBlq6MDSmuAjvPJ0sbZ BcMPoqRs5xhMwhtZtzQB3xHNE p orhcm939CaJrk3ckOLApfJJqY LwvVQA9S13zr5I3NFUeZRBkHL U0mRS2dC6qaNllodfocHVhrNs g kcGdbJcnUYdtSGhfX331PDWls EqmKnIvdrOaUQSwqDZ9VS13NI 28jBOrb4G2cVG9J0SxIKSwekj t agatxFD6MTMbRWHtaU39Qm7oh IokGq5eIPVqJZO1QPIusEXkD1 EwiM1uUpIhMGYaIMBmB7EcdQH t LZlhM795YAslQuC8AAMiklPyE 9RoOIAaqFprOvV6y0U9Cz3DL5 M2ZJ30RL99oNBun5E7lRZ7N6X h KJPrqrnvnjrbcGI9LABiZTPmn J95Qt1vrYulWt0tIDLzZNC7FB QouYGaM6AezD7hXbDzCNVoDQI w O7GbgGHoWMnaT554ZQsgFwA1N DLqsrWrT4GvPGPebFinNkZ3h1 G3Od9DDSd5ZO30GU16lNOfd5T 5 cLX1V5VfICTqgredetjbfBH7R SXwTPVgvA02Bi8icBwmZk7aXP McFWW1PDHokNKzJ6OcaP9aUpI j NGXnRFGtX4RhhNPyGLxvK134G BhjVlF3ZWSvthAjL2QtYNSorR jqMvE8i5J0Da8XQLHbSD92WTM 5 wCO9BV69JY41L2OxKcanwYSpw +PHRhYmxlIHdpZHRoPScxMD MkQuZyuFhaEN0bRj2iNWGmWSS v tTthkGDnOiPrf1fgIBIjSZgdF Q6gaLeoO0ZmrNP4ZAPgi3c3Eg 83O32wU8LydIE+LWOfxNN7hZN 0 xQ6vScFwRoY9XKytR533KvVim ZObLlkse8inc3xckOk6TaG4XZ FioqDyxEehBDW1p8OiBm48R64 s IHdpZHRoPSIxNSUiIHZhbGlnb w9adE0cGa1+JHGurJO0sBD8jR 7mFfPpMgR5WYlrE410SkXkkJS v Fjalz6ugf2sisBo4AaPxFYMwr dSeuCiyYHQ0n8YwLq40N4XgcA bbk9ShUhq9ks45vXSko5W9eMC 9 B0KkXYZkgbldgRUomOqmPH2qX HVbuiysHBNsuS6pPMVsT0i8Nn VqXeU8BJdvM8HvxiJ8JZUchCZ g QQsbIUV9U54yo3C0TSWmFQPoC PC4ySE6fY2usNzpyygqrFIexX bqecHagWfmRTciFAmpM993MFO v lQqxLEDtyS3eTCFhaJXigGspG L2qSPLvvgytZuXRMd9BPwqzWB 0QMFrFQYg6T6ZjAfd4SFMqxZx s MA4yqGAeWGugYx9yrWnekCslO M4iZMVozchgVJXhoE4hXADajE PppDgwSS5tMHKthdjcw916BeF x XIG3GEZpiGKoE0FfbO3bCaGbM AGpMTByP3XbuKLtEFzbO446GG unHtJ0ZQJoiiFoV7ZgSWWajYe u YwX1n5K8Zl7mTd2cOT9mEEQ8E E15DP69oEZiv7U6wTJ7B2CrOF EegpgcoyrwmHP2EGSdPSUksE3 7 sJTvWGiaFy1xf8A8m220DCEzS LMwhS43Yf0onOkoMGEgjXRZeF 0vleyoh3pxvodtUqHsEGAwFDy 0 KRa0KJEzfQshQwIdPTP2WwT9L AI8eZRddF7thRalobaikI5aZv c+LwZpHGTgutE5Y8ExViz6QUR z wPzbGJ3piJSkNDtvUs1igSfew BwvLJ9hSTXkeassIWSstQ9aNK SsrUZrzFznCU8oNFLlgczff64 0 JeDoSRP9HXAbrZDwW3SzkP8pK fAqPOXuTLMbM5QilPReORfoU7 73CRqcKmH5DUCnluFtX7DkVXR s tUqmUxI6z9I5Fe4EFRzuCH23U Y03wQEdh9U5hTM8W1IrYBLgpp oscbvtwVV4CYAnIZUkgC22xVB k CQfwRe4gs6X3d415MNVzPFJdg W79Yt0leLcuCFWgoJUHzZ9nfi evr7slapwdYqFpQJIbZCj6FTu 0 JHOatStoNpPxDEB3DlM2SNL1l TApfB7poLaenqlqyA9gJqu+T3 E7bHU4cSAwhSyibEW+AN67sn2 8 N6BaSudcFza2EHGuRUJ2wXB8m U7fQGZhGOqdv3Z7yCQ6M1Ujyp Qsyk3dr2coVPAnFLwoC36yfOY w k6D6DQAqyOF2CDLbzYpqZjFdg G93Oyc+YADbaIjfp0MlDmkzs7 zkj0yesKl5GbIoRLPzrvLrkMe u IHN4l4BlRp44T38oQWpwRNJjJ HZoODJxZQUvoAxkmv7mhQ7eRp 8+HKMaxRG1zSY0mM3dHhZbIeB 2 SBciX274YwQwtTXjMeqey0etw 2chzRo2RhVxXXIldqHjvRdxZD T4u8FcSb89W5JkhRcsi4XnBjp 0 wg64uGJoy5O8cLI5E9YfVVBsh nohsIFttOuiSI1lCABeqhxgTF YwvM8bQVWcT8z1NlMlKhZ3GIg u R0GhyeW9GNUumIPpRXJjaVHGx E2qtzmbj0brqpuyWhNxACQqOM o7GAd6GUGzmSmqCpQmNZV2IrC 2 FMH8fUDldB9ddVniojfxwN6tT yc+LKv5g1wstNNiAS4upRA3ZA 00QY62dXQgf4U2bMS7A9KaDNO p bliyhamiyJQ8VLTdHQCvfW50B g0laUbkIa6qPFLcZNA3VFBxkT RuS3ZggB6fLrTiCDKbJXGwV4H l qVZtPTyxB826XBevUeY3UODkl eUqL3AlHWOboXwzTcB1r0X7Zz 3ZNV28UI91IU26wUDzq8F6lQB 9 I2UaFDMwgrvosiaxwHT8WUDoQ TVyvV42Lv5ueBbnZo2bVYSvGH J1IIKjeEIuS9IizN0iUbYbXQG w LTEjF7LjsALoJBnaZ246NHnrQ wL5RIZaaqEjQ0OmXUSzaIziHk P4p0I7Uq9VMy25SQ47ZX27oZN g p0M5vMQ8V9SkIZFkagkjqtgty QR3JDHrDTWqjS27Kf4atUvpEt 2oWVKjTRF8UXKqyDSxX2MncM4 y FxIkBDNtZQKpF3ZfcDCjBNqaJ 127KKwfXhO9SXDuamLyW8GtVI CemWysIpX6c8D7Fa8RDWmusaf 8 B4OhEugjjLR+LF44IVQmEW74f CCvcSXdv8cuzEs2AtVnDLFnFF D6wTsiGEzcc7FoDRXoQ55wuRY w c2U6 (more content not included)... [facility] Physician Orderon 12-30-2022 Physician Order [id number]#1.00CD:1 27 [facility] Procedure - Woundon 12-30-19 Procedure - Wound [id number]#1.00CD:1 27 [facility] Consent for Treatmenton 12-02 Consent for Treatment [id number]#1.00CD:12 7 [facility] Multi-Wound Charton 12-27-19 Multi-Wound Chart [id number]#1.00CD:1 27 [facility] Nursing Note - Woundon 12-27 Nursing Note - Wound [id number]#2.00CD:1 27 [facility] Consent for Treatmenton 12-02 Consent for Treatment [id number]#1.00CD:12 7 [facility] Multi-Wound Charton 12-24-19 Multi-Wound Chart [id number]#1.00CD:1 27 [facility] Nursing Note - Woundon 12-24 Nursing Note - Wound [id number]#1.00CD:1 27 [facility] Physician Orderon 12-24-2022 Physician Order [id number]#1.00CD:1 27 [facility] Procedure - Woundon 12-24-19 Procedure - Wound [id number]#1.00CD:1 27 [facility] Coding Summary.on 12-20-2022 Coding Summary. CD:[id number] Gh0bW w+PGhlYWQ+GX4MRLBtI99kzRT mqP9EC0pIYQ3AWZVQKNHOKI1G UL2irCI8HUcmP6OssnKu VbpaeBGkWY80TVz6UMO8vXjeA AqctU9jlVFsD1g2OqZuEX51aQ 44FTfkRGDaQmN2OsOieieuhDW y E2pwDkXlcMFdHif+PHRhYmxlI HdpZHRoPScxMDAlJyBzdHlsZT 9aOm7nDLQwYYHpdYwhhCTkCqX j g2yvLPKzOGamXX0ccSbuT1Cgx WR6ZQYtz2r4Nf54mAB+PHRkIH C0qHurPNnur806BfWmn2jdHWX 3 sUXbYHbhUPF9P24hn7R7KNEyO OGcLYF5dOK8eY0duDbolomoE5 ScwVDsMpI4XBA2zJYrtS4juUj n xwljyR0nCrk+V02NHI9AKHDVX F3NIzs3V3BoHzjavZO+PC90YW AtAV48iUIjsJFsn0xqsXt8QzS w VWUfYCO6sNomKSkjk8PkRELfA 72dzUKvs0D3PDVetGwrcMCzZb FvbSG9zW3dVVmrbhtvg9pxhfx n Jowfs2hyjp83uA40B53jTFbaC CEkQPQ0AXEpXAAmuMtapk1ndA 9wIi8+WIbpz5edv9avmBt0FpN w KLLycmAgnGwlTRW0i9AzKy67G 1RnbIgcv2DbUnz3cu26gMFxx8 R8qZT1WSxhACQzpK7vRRtxAwU 6 IPDaTnZebO78yMPiPXdtWr8az JwgfHroBS5gMPTvjwluLNDrqN 0qVRNghPPwhTdqOT8cCKDbbzj m z743XvDnJIW9AGZpvTNrI2Swc F1yVoTiWDXvUCDpV0LbzXPfQY ugZ380UMgcDiY7ZXZebhWvN8B s COOzrInzViJ9p1U1Tj0Vc6Znp cuoFTA3PDgaODPqKuDiLlEmZk R6L7EwMjp6PDGziLoaPA5cN5P h YTAnwhmvosnocTC3NSUrHRFoy J10oVZzMArqVr8rs5G6l691CV ZcSTFnvT14Vz0jgTqtABFfsAO U oU5ismpne2bvkubgSlYwIUEzJ Uj1ULw2MDCjbXntQbVmYZN6Nc F8HGZ6mBIypM7dlQakllxjsB4 w Oyc+A18mzF4vMBQ5QLM1ivyjT RGtesIhYP97IV13N7SjKvbhgB FibGU+UMXnswMygSbgGX6wImC j x8qen7JhMVmqJ9MxHTIvDXedK zb3JRPgIQK2hHK8oE9cKSKgDX guc6Q5tFF9C6LhrwJmpu8kn2y s PQJfKKefH00syWZjs3U9NJUkz JS5LHIlfDkeRlKkhV81Kyy+PG VarUpnh6MpMukpk0dxy3mrzTg 9 GjPgJXNfkcJxgQvzKGG0o2NqK p24B15oCYrsGYGqRGJvEVGiVM IxbYdacs2iqA2nSs7+PGNvbCB 3 lKY6dW9oNQLtHiD8EWqnB872A eUqeDRzBglys5pek4cjoMl1Tk GhWFNbioMyoMbiFQG1d5XwMl9 8 Z49gJCdfTZMvXYQvOGBqQJBch Dfqpl7foU2fLm6+CH5eu0jokc 38aU97aUK+KWXhFJM4xRnnAVz w NZRtqK7hNNpeDpR4SHViIiOum L11yKUvCBigOu6siPghpQibEF 3iSSHrjwymr036JcPlm2rvPCB w jUKqOVakHRI7H47ip1O4IPQlO PIhQCR5sTD4cR4qkZryxgkdsR DosEsrpmHnoWgaHKhlMVxvS67 6 IHRvcDsnPlBhdGllbnQgTmFtZ Dj9R3ZwWdb1RVSdkDaqPV9mwW UoINqxBy9ifKoicLqcKM7bGCX p hdlgy169EkDri6zkQNLszISiU AnlHFH0K27aq7J5NFCfHYXsBN E1tZD8sH9gyUclefbnkGEmiWn g hfPjkYgpVIsoBPnpU728BPHel DanTrGijiCoEEIagRY5NK35NZ 59jQQch7A9eFN5T1BlQDKwqdv t tieakWM5JAOfSUFkfU05Sr1eg AxkDe5kBQYhGEU8LHXlbCUfT3 PtkE3xZrMyAJUaNBZcK9MeeOW t MIpaT017QImwIgM0HWWpasWqB 1XwIHWigFarWkM2b9F3Qd0YY4 Q1YA39EC89sLYiq9S3pQL5X5Z h ERUndiyutclxnVH3PZNxLEIzl U20Ap7mnYjiDa0lEQReCTP5EM AzqBRvJ7PinE1kCuPvXQRtKFO w C7KtvMPbHMuiX201JXprUaZ7A XCoxvZqQ7EwFKYxjIqjWzL1v1 Z9Kj2QVDa8NP70UG71eIFch5F 5 dFG1W0SrJWMsbtknadrdbMQ0Q DToHLApkT64Jc0dhFvkLd0wPO UyACD7YVAylZByP9OsvV5wApK j WPGeIHIaL2LbdCWiAHqwW253V FqiCgB8VHQakgMjK1HqRAWwtL hfEpB0f5F9Xr2VFGTfYO99WEF 5 gIP6BM95OJ82A3OnResbsSXnt +PHRhYmxlIHdpZHRoPScxMD UhWxEstWgqQN8lXt3yFQMiMHC v fZngiWSqMgMys1kbHTMyNSfvO N8ucRyfA1FhjSV8VOHwz5q7Ae 93X13jJ6XdpCA+KYKkgAJ4hQI 0 qI0lRmTzDkX6IDwqG559GqVjo QVaIpzcu2mpk5wbbBs3GjP3ZJ XyxuRcsZyoISF6q7QgXn33W27 s IHdpZHRoPSIxNSUiIHZhbGlnb m1duF6jSp9+CGYpqIJ6lGQ8vR 8fDwUeIqY8BGrdL071LvUsjBX v Smxpb3pkj9bwlKx0ZpUlMZUlh mUqwCbsLYD5o5BdQz83Q1TszV vaf5YrFmr5rj47oMRbz0S0gSW 9 T6PaWINnahzvsTZabKleTD1sL KMsvpnrUUYmiC0rDLNyQ8y2Jt VgLzV1ADxaX3KzvbB9JSReaLF g PFbgFTM0Y32ew5U6MLKyWIUpG NB0yPE5jE1hbIezzaxzeSDazD blkyJiuOmfWZhuSAktD484FEJ v vLejNZLmnB9tJAEjlSXhxDtyL E5cHHTzjqnkKvVBIm5TWeyyGA 9EJDhXKWj3H3MrMgl0OMYvvIh s IP7fdEZnJHsgRi7rjDmavWlcW H0fXOJflsrwYTWabJ9qIDRehI CdnKkyKV7dEAKxrfbpy448FnZ x JHE8TIEioPXvC8RdbQ3nKuOvP URuAAEwO5QlrKVpQJzsV465AB ibWuE7LAPofdOyL8GtSAJovXu u XgY9p7Z1Jy5eYk8aNV0uTJV9K Z90KX78rBHwe5P4vQA1D1MoEM JofocdzabmvAY3KQNtDOUjuL2 7 tEHpKNliMw0am3O9r306ISZxQ PEfeW11Nz9taFzuEQNhfROGeJ 5iajtuw1uvhakdCzHlFPHfIWk 0 ZLp5HEHviRqwWoSwYOA8UdK7A NI8xRXuvB1spIwtjfhslE8pXt c+IeTyXKYufrG5V7QgRwf9LGH z xEdtFD1ujOJfXHctXn9tcWtwq GulOV6yFJIpvgwmCTPhcA1dVY DiiYBdnVqfZD0sGOVnbzwsj93 0 YjSmLAA0MHVznGYrC6JilK5vG vMiOFWbIHLaN7MuvXSxWPrkY1 68EBpiLrV5YJLtodPdA5JvOIT s kNhmOsE0v9V0Sx0SPIcaIX15W J30kYXkn9W5yJZ1N1IoOKPgcr lrjkbtkTY1OPEjHXSurV45hAY k WEnaZw2vi5F6y488ANIeBYHkc Q98Tq8ysClmLVGkvZHWjV1lip bqa0egsgrgFwNpRWTfAAs9RTe 0 ZZNjcOnzHgAcCSJ1TlP3JNL0u FCipB6bfYlljotxnQ3hRgv+T3 A4vMS3fSVfjHkxoNU+HW51kn4 8 B9SaTfkaZup7EVOlRYA1hSH9x H9rSSPgOEyzw3X5uTH2J7Iktp Ppdk6pw7sqGKKpDPzuI72qwSV w t0V3EQHzdPP9PNUqkGfjIfVez G93Oyc+JMNzqAmkj1TaWzhge3 gwh0jlcWl9OaEhVTMnteDkdHd u UKD1j5UjDe47V93oOWptIXCmP LEdRILsTPLtjOayny3duH0pFy 8+MYZddWG2oUZ9yY3pKaSfKiH 2 FUucD176MaIdaBJwHofna6jzb 0qtkHz4MmTlMVEhdmGlcBgcXI L9u8DoAo84Y2ZhwDvzl0TxPtx 0 xe99sLWqa8J4zVX0W5AqETPjt vzpqDQvwLtxQS2hRVWwhcfrYM KliH2vFGBoF4i9CpAmXyT1RSt u D9BcaeN2CAOyhVSwJTYtuDVFw V2gfzmzf4bzmfcqYxJyRXBuPY p2XNn4LTRbxJctNsHfXEL6FgB 2 ZXT2yNCguK0nwImidttjpM9jT yc+JGx1a2jxgMYfEW2tjBY2VX 03MZ73tYKfk5C7gKX9M9ElONO p uercisjuhCL3UCQdQRXbkR36J m0fdZvbVm8dSCNrODB7PTIydZ GsV2PmwG5qPsAtUFOaJGYsL7Y l cOLtFEycH956SJkcBeZ1EXLkj cOtD5DkRMUbiCnpQjC2c6G0Dl 4AYA58TA73ZX52vPWyi7T2vTH 9 P0JqFDRjtplszanysRW3ULPaT JIdkK74Tk1ukJqbOl7pKJSzWB C7NHAplMPpT1JckK0fUxJuQRT w BGPbT7FdkTCfKAgvS114EHtcF nT2OGYkxnAwT3AsTYLaxRckIc E8q1O3Pc3HKh96OC97LC07zXK g n4I6hVH2U5OkXZBtgsnzulnby CB1ODZnKQKcpU30Bv5grAtnMx 1pVCPiIDA0QZIqvFVhN3XgnK8 y HbYrVYQjZZPyW6BavZUkUAeyQ 868VWriCqT9DSQkysBzY0AtWM YowMqmKlW0f5R8Iu0YLEkkrrn 8 T2XkGanmdXX+NJ08KMOyPI92b LEnaHQju1adpKu0AuMkJZJmFW Z1wMwvIIrev3QuVSZbJ82vdKY w c2U6 (more content not included)... [facility] Consent for Treatmenton 12-01 Consent for Treatment [id number]#1.00CD:12 7 [facility] Multi-Wound Charton 12-17-19 Multi-Wound Chart [id number]#1.00CD:1 27 [facility] Nursing Assessment - Woundon 12-17-2022 Nursing Assessment - Wound [id number]#1.00CD:1 27 [facility] Nursing Note - Woundon 12-17 Nursing Note - Wound [id number]#1.00CD:1 27 [facility] Physician Orderon 12-17-2022 Physician Order [id number]#1.00CD:1 27 [facility] Procedure - Woundon 12-17-19 Procedure - Wound [id number]#1.00CD:1 27 [facility] Progress Note - Woundon 12-01 Progress Note - Wound [id number]#1.00CD:1 27 [facility] Coding Summary.on 12-12-2022 Coding Summary. CD:[id number]:[id number] Gh0bW w+PGhlYWQ+WF9GPZBqW64niHA ydQ9FX8gWMZ4AVAHOLQMAEH2Q DT7myJC8KIfbG0SprxMt ZtskaJHmZN35JHp4TSQ1xHekU XeopM5soLIuW4r4SpEeDO39dN 89PBmsWGMcKjD9YvUybiiewSM y B7ovCvPosCTaTmc+PHRhYmxlI HdpZHRoPScxMDAlJyBzdHlsZT 9sXm1cOINwNNPfbVmosZFfRpW j v5gbNMGcPZmcYW6hwFtlI6Svi LD4MEFfy7f9Wy77gEZ+PHRkIH T7aLwuGPnom688XcJlg0fjRAJ 3 tMGkBWehGQS4C41ou7V3MUSyF SGmAND2iKY0jR9ktSmkxlawQ2 FxdAEuOmW3WWJ8aJYmjY5enIu n iopvyX3jWox+R81WNY5AFKDGV D1YUhe2D3QyKvofsFP+PC90YW SmKH85oFZbaMDjd5twjZc1TuU w DKQgVCL1pXuxPIjnc8KbWXGnR 60kuPUut5B3KDFvvCqyeCDsWs UhdDV1jP3gTTpybpfni2ukuop n Lopvc5lpew99yJ84W17aNOtqU QOtTTM2ERMhYRXezVhcqs4cxR 9wIi8+DQxey9ftv4sauIw0BvG w QERdxuCrcBwkCSI8c6DyXd83E 4NntTzej1KoBur4gm67wDGgq5 X2rZV6HXugZUSlkU3gRNtuOdY 6 IRFlKvLvoK91zCSpSKnyAx5wq UiplQnfYO0bFEAyeihbQUAdkA 4lJNEctSXkyTnzHZ6qEUAnjuq m o284RwMcEXO7CHRgxAXzA4Hup T0mLnJcOKRiKESjL5YjpQIeZP zmX819MZvlYkF2CENojuLxZ9Y s NRHbeIauUaL1f9A7Bw6Sn8Lkc wsdCRU3DQaeKMRwGuSeCzHbHb C7H8SaQwx4NAAnnMntRC3cV7C h MFPltfzdbulkdOM4PDMkSUVsa V89yHHfOZfeQd0dv2A2j229QF SjURWzxY99Qp5zwZurJEDscNU U gH3eqrzkd8fnxpveJbNtDJKtT Mi2VBk5ZVJoyXlqJiXySXV8Xw F2HTE8lREdcZ0ktUjhlbptjP9 w Oyc+H30mmC8aBBG7IBE2ibtgP JPejoVeKG75MH84R7WrXxereZ FibGU+JWGqhoXshAwxWG7oXoZ j t2jah5BaJMhcK6QfKEJzHKseL lu6PLBkOSQ9pDP0cW9eHRRrYT plk4H4jWK5T6RlgvFjii8hg2v s BBNlYRfxY32ltDBnk4F6NFCxl AZ2YPQodYbbCtMdkO25Zgo+PG OvsGdtk0NwAzxhv6yef7msjAc 9 EuKnXFYkfzMqlSroNFJ3c9JhY a74M60eJQosRPUdQKIjPOBdCH HeiIdmoo0qtV3rJa3+PGNvbCB 3 xNA0lJ8rUQGlFbP7JIwzR036T oKqcXDjHdgbf8qhw7xogQp4Kn VeGQUcrfTjgCdgVUG3k7SgUb4 8 I94rFTclJLVvGHDfSETjMJHbc Tobpv1frJ7sHx8+KP8sw2oyyk 90tN40pNQ+XXUfWMM8fNogFYb w BEHjmK7cMRwiKdG9HEEmExQpa U42lONiQGleUy1umMqvlZkkDS 3rRCLtbeyvy194ZyQce8tnUSR w pNRzUOuaPQS5I82hf6M8PJXeN GKtPUW8kAP3fR5vhHlmyztcxZ AwuVarabTbkGedEOxbNMgsJ11 6 IHRvcDsnPlBhdGllbnQgTmFtZ Yu4V3XpGua7KUDmuDqdHN8grX UuIXhvCy7rnPdnzCacKA0zPEA p oufok183UxSpv7gpTKWrfKDkS TtaDRK2P32bl1N4OYNmORGhDQ A2tTK3jB3pwAaabprniXSwfSc g wfZupZopTXyrEWusQ030GQFiu KprUaHvoaYwXXVovPL1IC66PN 91xOZzk2S2dTZ0Q4TjICSgils t wrodgID0PQTnRIDzhZ24Tk1mb MfwFu4bDZBrNIY5XCHnqUVhP6 XbdI3yOfRdEXBaEMAmV9UqkKB t JWeeI282LVfoKeU7EBOyctYbJ 5VpCXSyoTphTbR9c3N5Yy0TF6 C1CB89PZ52wYRrf2L2yMT6A9C h SBCudrsgwfuhnEU4BXUbRSClx M89Ei6cvCojUf2vFQOiATF0LM KkjLAtO1RluN9mYyTaFTCcXVV w J3XlgTQnGEomM418IUibHcJ0U ECxseVxL5OvGSHxgRckUyH2y4 Q5Cm8URAi1FE91RY77pAZnx4H 5 pEU4C3SrAQRkpibjkjwdeZV6D MGfBFEswN87Kc2ltIbzOk7gUN XcKNJ2GMTqrDFzB1WvgF7qJvB j UIOyLEFoU3OzoWZqLCkuH790H XgyYsI8NLRbvoKnR6AwXZGvcX baMjP0d7P7Nl8IHJWuAB26NLD 5 eZG8WX64II75Q3DxSczmoJZol +PHRhYmxlIHdpZHRoPScxMD CdZuConUhvKN7hXj3rTTBjTBL v uQfhfCZxXlPkb9sgAMQfIBhoR D3orNibY8EwkCD6BTFnn8n7Ps 71D95pV4PlbRP+TDQcbHY5xPM 0 hH4pUpQuIvA1MVhwM638XrKxr NExApfyr4mep1spwFa8IiI7XA IxucVzlTuaNIY9r8ZvYe47Q69 s IHdpZHRoPSIxNSUiIHZhbGlnb d9juG6wGl8+DOBggLJ4vFL0aA 5cWbTvSmR6ZEzaP634MvTrjRQ v Nhugo2ntv4xakVi6SrGxNRCoh dLupDvxVEO8g5HsJh62X4NqhL qat8XkPzy8xt62nMEqr6J9cFT 9 V4GtKVHgltsplJHplNzyTP2rG JXfiplkILKkxO8dPYFfY8c7Bl LyKkE4OGmmB7VxxrK9FZAbxXV g LUlmFUC3Y52jt7Z0QJWfDHGcI CK0rQZ3fW4nhIakbspkqLYddG dpooIkeCrqMCggQPstV298FYE v kRscPSLivR2pJEUdxSIcuUrmS M4eJTXimndnOrOGEs6FOitgAJ 4UCIySAQs3X4OyQrv2SNXwxAx s EG6ncVZfDFrzPe5ipQyyqWrsU C3kQQDiaijnBITmeG4aGFCfzA XvtJfgQP7tPQGtqmjme408HuG x KIT9FZMieVVwY2JqcG6zJsOdB VVhQGJiU9WumSFaIKkgP235IK nkJjX8ITRynpHgD3CwNQMneQd u HeA6e6B1Qg3eAx0eUE6kDDS9K W42RI01xZWvb5E0uRQ5Q7XqAE PxbpxssmnrkKM6WQPfYAVuoK1 7 wTKxIMhoWu9uv4G4e707GIQfW RJtmZ49Uj6vhQuiSNVxxDDRoO 7fmxozt3hundxbJgSlGMKcZJm 0 HDf4YBZpjCiiDcDjAUL0FjJ3V TP9lFBjeF5ekLqitsimrX0bNv c+UaCbZGSlikD8N0NjGjo9XWM z tFlhNR1xaAEdGVrfGm4obMirg TxzEE6wTSRwfwpqYBKuhG0lTP OdwXAbuNgqIY6xMFUtxkgys19 0 PuLsTEI0IDFraZZvH4UxcX8yF kWoRZTmFMDrU3JkzRDwYQtiO5 23KXoeQeZ6SWUiwmCbL4AbHTN s vTghDtV4n3Q8Vs2MEAwfZG60Z Q07hCXta9D3xXU5X3EfEWUmyo jjpicylSM7NANySZCgjQ75sXO k ZUrlOn5de6F3e840JZHkWZEky R39Dc8xmAtdTAQczDKKzA5twq xdh7oighdzUlBqMPDuSXx4LHj 0 ADAcoFcpKqXrQVR2GbP4JKO8w JVnvY6jhNwfgyuyzI3bLjx+T3 Y7vQA9gIPflWufpJA+HD38sy0 8 N7RpPftsSpi2MAOfAYS4dXF3c F1fRNJlYYpmo8B3vQQ7K8Adij Gvcm5hi2byXTUnHMgmB42sjQQ w b2E5NCOviKM1KPMcsGikBaWcb G93Oyc+TGSjcLnvu8IgXjnmt3 rmq4vptMk7AcCgQHFyccOrjBg u FSZ4t2ReZh12P34pCNnfPBWeT HCiIZUjPKYhuPlbxm5fnR0bKc 8+LCHyhIS0zLS4fA1wIkSpBiG 2 MLglA531HuHcfHViOctej1uwl 5wesNp6EgLbSNQrbcHymMsoDY Y2x1SfYw76N7EntSxtz3ReWzv 0 kq98jXOfa6A2yZQ4X7NsVVYrz vnciIPefAirKR6uARVnepshLF KotT4vRZFgF0e3RaRiVdD0LHe u N0UjaaT9VTBesEXtRKZkhURTy H4tkfxjs0qfybesUhNjWMOwSI f4GZh0EZOizShjQnZqJQS4EjW 2 ENO2lBWhoM3ofBlnzgtryV9vP yc+SPc7y2xlcTLjYU9ypYS5QE 01JG27iXQbd6N5hQF0X4IqUFQ p zgfmhuxevIL7EMAiNVEsoG75I l6nvXyqAp4lVDJaLBB1XBLzfF RqC6SkkY7uUdTpEUOiMPUvD3N l xLZwKJcyW336XCxnUbB1NVSxr wOoQ0SbGQIqnAuhYgJ7p8N2Go 6JTH83QO80BZ09nJPul5O4mDO 9 V9RwMQZdclvhxzineAW5WONjY BRquN80Cz3odSkmGm1sJMHnTU W5XAXuqIPlH6CzqA3zEgCmXSJ w APSgK2MiaNMzJQfwJ886ORksZ xS8AFEdcdJjC0LcKLIwvUqzGb M4n2Q4Az6CTo65LK12XC01oIQ g o0V3iVJ7M2MjADKmlmxubxgor ZP8WIIgLJNkhS65Fw5tlKpzHu 6yAMMjKST7DNXchLPdX1VqeT6 y DeLeKQRnHAGnT7CrjHHcPVmcQ 043UMeeAfF3ZHLbriWtO1OnHK EofPjrOwU4n6K0Th6DLGtrktl 8 N8IyWdphyLY+VK23JCArJL09a LXrjULxi5ztmEk3DkWfQWJuPR O1hGpeYTyyv0TmSSRwJ17rrRZ w c2U6 (more content not included)... [facility] Consent for Treatmenton 12-01 Consent for Treatment [id number]#1.00CD:12 7 [facility] Multi-Wound Charton 12-10-19 Multi-Wound Chart [id number]#1.00CD:1 27 [facility] Nursing Note - Woundon 12-10 Nursing Note - Wound [id number]#1.00CD:1 27 [facility] Physician Orderon 12-10-2022 Physician Order [id number]#1.00CD:1 27 [facility] Procedure - Woundon 12-10-19 Procedure - Wound [id number]#1.00CD:1 27 [facility] Nursing Note - Woundon 12-09 Nursing Note - Wound [id number]#2.00CD:1 27 [facility] Coding Summary.on 12-04-2022 Coding Summary. CD:[id number]:[id number] Gh0bW w+PGhlYWQ+FJ0YXDQwY38zcYS ovR5KK6sXKE6RMNNUPINMOV3D TP0weDW0BFvrW3ShquLh ZyrhgAZwSY76QKm1IRT8vUocD MxqoE5ycBNkN3w3WzMtXL79wD 08JXtqXMVkRiR9FcGvqlmbtOS y C0vtSwYruCQwKeb+PHRhYmxlI HdpZHRoPScxMDAlJyBzdHlsZT 0xFe7iQIJcHPSwzDwcvFScSjC j j6zuIYGaXTimTY6heThgF8Ccy CC2LGPkh2b9Ft21bGG+PHRkIH B5yYbuZUwmk231QzCdy9fvFFE 3 rXYoAMbiBSG8Q02ph4G5VDBiV VHwWTC9eZR8dL0cwWjnyxkmG4 ClhFJlHvY5TQT6wNRfkJ6efEh n hkcgkV8zLla+K65UQZ8TTJKJI Y3ETsz7G5XgXrrmeWT+PC90YW VgEN09zVWfyXBgj2ylzDu8WpG w HEGaGGT1cNprBVtog1ZpQSGcD 12hdCYfw3R4TZBcdEqtcTBaRx StxTX3tG8lCSortkpvw7kbohu n Speyb3czct01tL20O83aMNqsH XCxAUN9YFWuHLXriXfkit5ejL 9wIi8+LUdas3tgf6cjxAo2ZpY w RAWagrTmyEzpDZI8l3BtPz41Y 5RnoAirt5LeAcv8jh64jBJpi8 O9zFK5DHonJAIivV3wIJkqOfD 6 RLUcNtSuvY55xCGaWRmpNy6fw EpltJsfLB6wSGWcgjuwFSAcgS 3sDECcnHWeeOgaEB1fYRUskbt m e529QcAfLYQ7RHKuwLVnD3Vyf Z7yDjYvJSBwQLSmP3MkoLVkJJ mgQ769TDwtRjP1MXVvlyJcV8B s LQWtaVdeKfR4l3H0Vt8Xp9Glh sdtZQZ9HJfaKFTlAoY7PtHbLo W3E5UmMdq0OAEisIirZB2hK4A h CPHytgebvdrvwVC6JNPpHKZnw B43eKKbSUhlHa8hz8F7w089JJ QoDIQfyQ53Eu2nbCarHUKslWQ U cS4noifsy1ngwieqJiMoGPBtA Sk4EVz2OBLogDawZqPxFSC6Be B2LDZ1cNOcfW8hrRrxqtgdzK3 w Oyc+I10fxS4mMGD8WIC7jepjN UVlskDmDQ63GO97I4PoIrsfwY FibGU+SSUucdUxeUjcIC0sQhF j g7mly4SsDWhvU9XqUYQhTQgdM qr6TNThVMX9fCU0hF6hXBZmRX hcl7A2oUK7W1JqiqKwru8fd1v s RQRyQTdwW32oyAMqo3E9WUUxm LA2DYAhhAskAlAgdT61Cca+PG HacHyqc7ZgHpkxp0cyo4icaPj 9 JnGsAJVmlhAljUvtQCL5o2ElY i27M62zSFmbHFLnQEVrZZChLX MpdNvzbp5ccZ5dBg6+PGNvbCB 3 tYX6sE4mICDqYdC6SZfxG138K uZufDQtJmgye2ens3fszFf7Mn AjHYMhpfCdqEcmJHL1d2PkTb5 8 W87lKNkxRYTlMVLfBBCpTRVvi Difpo8qyK7aAj5+BW5jy1hqcc 36wJ80jDH+WIYsAMO8zSzkZUn w CONesP1sNMnnMaT6DAXhYuOdb Z82xCYlXTtvOw9faXzkiWzzZA 0iHEUcrzguq234GvMdp8xzYYL w dNPlRBxjJYP2J15vw0A6HLHtP FBfTNS0rPF2rZ8mrGitzoljzY OapYapzaJukRcrCDhqATxpM09 6 IHRvcDsnPlBhdGllbnQgTmFtZ Ba8S1DhRze3RGPegHswBP6kxG VcFAnzSs4yiYscqBbeSR8vMLB p jbkzn740WtCwv1ktAOXzxHCuP AupRAE3V28kv8T7WOXgCFVnSA K7lVK6jA4qfIxelmaigDPjaFn g lcQroKhcPAkbAAcwF559CJWtq VeeIeZjzaQjYHRzqWI3MS18KI 30dKKgk5V5eSR5C8XgAZUndvb t bvnasJB3GCPzZAHknP62Wb1iq CigQr1nAMBzUHB2RQGpxWZqJ3 LedV2iHkXoFGDjDTMiG8AyiRY t BCtdP289APmeBlO1OCJqsaYzV 6QwEQQaeMuaZcR8p7A4Qz7EV1 Y3PL56OS47bMAok1B6vPZ7Z5D h FKQvajhskkpqtZB1VSPaTSJvx J96Il1ofVkpDf5oHORfOZB8YK ZqlFMkP1LwbN2fJvZwAOUfPEE w E2VjwZXzVRdmF883ZNfvWuV0G RYmvnSnZ9AiNJZmyVdaPcV8z1 Y5Vf2LNEj2OP03VA44hHWep4W 5 uPI7E4CmQPDnvuamcbmhfSR8U YCvSTYqwP22Aq2joXadRq2zFP UtMLQ5GJUcjIUgF0DmxR5rNuY j GDNrOXHyN3QyjWTeOPqnQ950Y MdkEeK4KNKngaStA3SrLSSlaU nzQoB3u1K1Ae7TVDNyUD03LRW 5 rBD7UV65VR19D2HhXfygpLQbi +PHRhYmxlIHdpZHRoPScxMD KaWiXrnVywEP2bIe3dPAFiCIR v vDfweWKcFsIzg2hgNIJyYJkvG U7rqOapY6GuaEG0ARDhb1b7Ib 19T87zB3OfwAL+CQUveNU0zTY 0 uQ4iGrLpQcJ0MIhzX313GoIgi SNgMekfw0qig8nlpUe8VpL5HX TpmkRdgSvbVCM5x4AgDk61E43 s IHdpZHRoPSIxNSUiIHZhbGlnb i8bmJ6sOq7+DDFmhBB0mXL1eP 6iUzMuElM6IDmzG970WtHplWW v Csbho7qcv1wrnXt8PvBlSQIve lCwzDyhVNN2c7BrMj56P9VzgY whb0WqAbf5ex78vBHup0A3wEG 9 E6LzZOTuqdkdgRZfuTdjAT4gN XDhqijlSWRfkU4nRZAbO2t4Ot IlPmZ6SMpwK5OlssH8RAAjuII g EYxyLMQ1L70no2Z4ZLYvKHXbT CR7pAL3xE8inEoonlnjhYStrS twiuRnyGbxFHldFYplS518CLE v aGohMXKcbK1gAVLfoEBuaPmrT F8nVOKayfkqLpEFOn9APzkwFL 8CRItOVDe9R1QmJyx6WAFrqIh s SU9mlQZeFVxbYi9aeNtooZomR R3bNXNssmemIDDxtP1tFJGqpA HorGodVW3kEYKuedjeo472TaV x FPC6XMQugPCqH9JmfP5pZiDqB IUkXGMiI8EdpGTsULuaQ588HP wnRmS0GXOnymJmN0OvXDIwyQo u MhG4n8H4Ga9mFv2sXC3yEZM7V A03GD85wOTmu2W6yNO6Y6KwLT TodwdagfbbyUL8IIBtXRMmkW3 7 kPChRRkbWq9xi2C6v023XCLkD UCyxM35Fq1lvEygKOKyxIAKrF 6pmjrtw5abllccBkRnAXPzOZe 0 GZu7XTLblEwlTuBrCDR0AzN9U DZ3pDZdpH3twPbvbijdcZ5uPw c+XpFnVZXcozO8S5OvFbe1PRU z kSqgBP1cqKOyAEdiSy9gvNgcb ZpqPI5zEPBkavhyFVOngE5ePK KymSNdtQcxNJ0bEDJufkwje17 0 DkOcWCC9POEriPPyS2RvxD2lA tFnDWYyHJUvY8CbgHSfJXymM2 89ERnuDlY2QTKqznJeS2EkYTE s sZawYcL8i8Y4Rs7HEEbiOO94V C59uQJqf3Z5hCO3B2McROOild rncsuotTT1KMFyKZVsaN94lHK k KFfqLd9ep3C2s447RKOtJCYeo H03Ti8okEaeBUYycNRCuQ1xau yad1annqfgYtSiFOTrXUg6FTz 0 XZDvbCjiGeFjBWU7FgQ4YBH7u NKwiJ6llNxznktmuX0jLsz+T3 D6eUW5xEEujUnhyJO+MF90oz1 8 F0YpJytrAto4XRBoUZF6fPR4q S2dKIDtZUrip1J8wSJ1J4Deum Zcnw0fm9tnNLJcFGhjU34shTF w a2O7AFZecAH6PLWoaMmtAiPsx G93Oyc+OOYqxTrrq9NvDecto5 gnd7nszIt8IcJuQKTcrgTvwBz u NQH9o2AkUk55M98zQJhjIPIvJ LJxTNLgRGZbtTjnmt3tlK7iMe 8+UBEiwDA6sNP1sJ2eDzDuLeA 2 PDbwZ816DpYanKOjEhrvq4twm 0qhvFh0BrIvSFSfhlRaiRtmXW W4j5DqZl11P6UdjPpju0ZsUpc 0 vg35dZDhk1M0xWK1C1FoRWUfb ikbgFNchAkmCQ1bPJHvdbffVC FbnA5jWGNrH6n3AaZrOzW9IZp u R2SdqlD3LWHrhPOrMAQqvNJYk R1inrchh6eossdlQgEnAQDgWH m5GGr5VDWizVclWuLbTUJ5YhQ 2 DIJ9hLIsvA1guVwsgqmuyF6zA yc+BPc2o5wobMJrOP9oxOU4RR 55HW69gQCie4D6rON9Y9MkXHR p oknnrspqvBL9PUCxTIHoiU54Y v2jpEjoIb9vEUIlFUM1GKByiZ AjG2NjeJ6dYyNqVVQgIBHjB5E l bCEsEXlrP507PEmqAgY0TPLne lUcP2TuVWNciEghXtF3h5H1Ac 0ESL70ZY21CX10fODef9W0qXR 9 K7HxSHXazdgkmuudxKB9FCKjX VDchK64Xj7yiTmkXa5lGOSaAK P0XAZgaCXkG6BefF3hZwBaJNC w UVYuD2WxcKAkPHdsF013RXnnY sZ9BVBfajFfR7MfHKIajTscKh D2c0S8Ko3QUn20ZL24PQ14zBX g c5B0hQI9X2CmPRAskhxehysnj FT8XGXsKWRxxP24Kr1rwKjqHr 8tKNFjSME3GIJqsASiE5GohW0 y FgCgWCCqQMWuU2VjhIGdXLocB 937YVvlNwM6ECWactJjW7LyYG NowGrhUoL1r8H4Os9MQUdaehs 8 U2JfLqgxhOC+ZP69GNTlBS55w AQjgWVca1wqxCn8VcRpIKXlQW Q6sAajHQaao8EbDBSsJ21xvLO w c2U6 (more content not included)... Normal [facility] Consent for Procedure/Surger yon 12-04-2022 Consent for Procedure/Surgery [id number]#1.00CD: 127 Normal [facility] Consent for Procedure/Surgery [id number]#1.00CD: 127 [facility] Consent to Photographon Consent to Photograph [id number]#1.00CD: 127 [facility] Correspondence - Woundon Correspondence - Wound [id number]#1.00CD: 127 [facility] Correspondence - Wound [id number]#1.00CD: 127 [facility] Correspondence - Wound [id number]#1.00CD: 127 [facility] HIPAA Forms Officeon 023 HIPAA Forms Office [id number]#1.00CD: 127 [facility] Nursing Assessment - Woundon 12-04-2022 Nursing Assessment - Wound [id number]#1.00CD:1 27 [facility] Physician Orderon 12-04-2022 Physician Order [id number]#1.00CD:1 27 [facility] Procedure - Woundon 12-04-19 Procedure - Wound [id number]#1.00CD:1 27 [facility] Progress Note - Woundon Progress Note - Wound [id number]#1.00CD:1 27 [facility] Consent for Treatmenton Consent for Treatment [id number]#1.00CD:12 7 [facility] Multi-Wound Charton 12-03-19 Multi-Wound Chart [id number]#1.00CD:1 27 [facility] Correspondence - Woundon Correspondence - Wound [id number]#1.00CD:12 7 [facility] Progress Noteson 07-20-2022 [employer] Operator Authentication Interface Message Text EMERGENCY TRIAGE, TREAT AND TRANSPORT (ET3) DOCUMENTATION OF TELEHEALTH VISIT Date / Time: 07/18/2022 / 1430 Name: Yousif Aguilar : 1945 SSN: [id number] EMS Agency: [facility] [] Verbal consent obtained [] Implied [...] Completed by: Wilfrid Haley MD Normal [employer] System Coding Summary.on 02-19-2019 Coding Summary. CODING DATE: 019 FINAL [facility] STATUS: Home (Routine DC) PAYOR: Medicare APC [...] elsewhere classified E78.00 Pure hypercholesterolemia, unspecified Z79.01 halfway (current) use of anticoagulants Z86.718 Personal history [...] CNOV Office Visit (VASSFT) DANIAJEF Tima Choi ([id number]) 1945 MDate Time Provider Jrwqbquffx73/4/17 10:00 AM NEO ROCHA During your visit today, we recorded the following information about you: Pulse Blood pressure Weight 73/minute 142/72 142.9 kgNeo Rocha MD 09/03/2017 10:08 AM [facility] Department of Cardiovascular MedicineOUTPATIENT VISIT DATE September 03, 2017OUTPATIENT VISIT TYPEESTABLISHEDPRSAMPSON REGIONAL MEDICAL CENTERRY CARE PHYSICIAN:Abbie Gtz III, DO257 PAULO SALGUERO [address] [place] [address]Peket: [phone]: [phone] PHYSICIANAbbie Gtz III, DO257 Paulo Salguero [facility] [id number] COMPLAINT:No chief complaint on file.HISTORY OF PRESENT [...] PE and DVT, 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 CT Chest +[id number] DUS LE +Rt femoral and popliteal [id number] DUS LE +Lt popliteal DVTPAST MEDICAL HISTORYDiagnosis [...] kg (315 lb) SpO2 94% BMI 43.93 kg/x5Zzsyyoa appearance: alert and cooperative individual, in no [...] elevation.Neo Rocha, MDReferring Provider: ABBIE GTZ III [[id number]]Allergies As of Date: 09/03/2017 Noted Allergy ReactionSHELLFISH [...] to improve.Follow-up and Disposition History RecordedEncounter Number: [id number] Status:Closed by NEO ROCHA MD on 09/03/17 Normal [facility] PROGRESSon 09-03-2017 PROGRESS HNO ID: [id number] thor: Neo RochaSerraysae: (none)Author Type: PhysicianType: Progress NotesFiled: 09/03/2017 10:08 AMNote Text:[facility] Department of Cardiovascular MedicineOUTPATIENT VISIT DATE September 03, 2017OUTPATIENT VISIT TYPEESTABLISHEDPRIMARY CARE PHYSICIAN:Abbie Gtz III, DO257 [facility]ITAL[facility] AL[facility] SALGUERO [address] [place] [address]Vplbc: [phone]: [phone] PHYSICIANAbbie Gtz III, DO257 Nitro Aldo Salguero [facility] [id number] COMPLAINT:No chief complaint on file.HISTORY OF PRESENT [...] PE and DVT, 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 CT Chest +[id number] DUS LE +Rt femoral and popliteal [id number] DUS LE +Lt popliteal DVTPAST MEDICAL HISTORYDiagnosis [...] kg (315 lb) SpO2 94% BMI 43.93 kg/s2Zlwhpiz appearance: alert and cooperative individual, in no [...] skin moisturizer, leg elevation.Neo Rocha MD Normal [facility] Vital Signs Date Time Vital Sign Value Performing Clinician Facility 10-28-2023 17:16-0500 Heart rate 69 /min Theresa Villalpando [facility] 10-28-2023 17:16-0500 SaO2% (BldA) [Mass fraction] 92 % Theresa Pocos [facility] 10-28-2023 17:16-0500 Diastolic blood pressure 77 mm[Hg] Theresa Pocos [facility] 10-28-2023 17:16-0500 Mean blood pressure 100 mm[Hg] Theresa Pocos [facility] 10-28-2023 17:16-0500 Systolic blood pressure 145 mm[Hg] Theresa Pocos [facility] 10-28-2023 17:16-0500 Respiratory rate 16 /min Theresa Pocos [facility] 10-28-2023 16:09-0500 Heart rate 59 /min Theresa Pocos [facility] 10-28-2023 16:09-0500 SaO2% (BldA) [Mass fraction] 95 % Theresa Pocos [facility] 10-28-2023 16:09-0500 Diastolic blood pressure 82 mm[Hg] Theresa Pocos [facility] 10-28-2023 16:09-0500 Mean blood pressure 95 mm[Hg] Theresa Pocos [facility] 10-28-2023 16:09-0500 Systolic blood pressure 121 mm[Hg] Theresa Pocos [facility] 10-28-2023 16:08-0500 Respiratory rate 16 /min Theresa Pocos [facility] 10-28-2023 15:58-0500 Blood Pressure Location Theresa Pocos [facility] 10-28-2023 15:58-0500 Body temperature 96.98 [degF] Theresa Pocos [facility] 10-28-2023 15:58-0500 Diastolic blood pressure 68 mm[Hg] Theresa Pocos [facility] 10-28-2023 15:58-0500 Heart rate 64 /min Theresa Pocos [facility] 10-28-2023 15:58-0500 Mean blood pressure 88 mm[Hg] Theresa Pocos [facility] 10-28-2023 15:58-0500 Respiratory rate 18 /min Theresa Pocos [facility] 10-28-2023 15:58-0500 SaO2% (BldA) [Mass fraction] 96 % Theresa Pocos [facility] 10-28-2023 15:58-0500 Systolic blood pressure 127 mm[Hg] Theresa Pocos [facility] 10-28-2023 15:46-0500 Blood Pressure Location Theresa Pocos [facility] 10-28-2023 15:46-0500 Mean blood pressure 86 mm[Hg] Theresa Pocos [facility] 10-28-2023 15:46-0500 Respiratory rate 14 /min Theresa Pocos [facility] 10-28-2023 15:41-0500 Blood Pressure Location Theresa Pocos [facility] 10-28-2023 15:41-0500 Mean blood pressure 95 mm[Hg] Theresa Pocos [facility] 10-28-2023 15:41-0500 Respiratory rate 18 /min Theresa Pocos [facility] 10-28-2023 15:31-0500 Body temperature 96.98 [degF] Theresa Pocos [facility] 10-28-2023 11:04-0500 Heart rate 80 /min Theresa Pocos [facility] 10-28-2023 11:02-0500 Respiratory rate 20 /min Theresa Pocos [facility] 10-28-2023 11:02-0500 Body temperature 97.7 [degF] Theresa Pocos [facility] 10-28-2023 11:02-0500 Mean blood pressure 104 mm[Hg] Theresa Pocos [facility] 10-22-2023 12:34-0500 Heart rate 80 /min Theresa Pocos [facility] 10-22-2023 12:34-0500 SaO2% (BldA) [Mass fraction] 94 % Theresa Pocos [facility] 10-22-2023 12:34-0500 Diastolic blood pressure 65 mm[Hg] Theresa Pocos [facility] 10-22-2023 12:34-0500 Mean blood pressure 86 mm[Hg] Theresa Pocos [facility] 10-22-2023 12:34-0500 Systolic blood pressure 130 mm[Hg] Theresa Pocos [facility] 10-22-2023 12:34-0500 Body temperature 97.7 [degF] Theresa Pocos [facility] 10-22-2023 12:34-0500 Respiratory rate 18 /min Theresa Pocos [facility] 10-17-2023 22:14-0500 Diastolic blood pressure 94 mm[Hg] Kaylinn Dokken [facility] 10-17-2023 22:14-0500 Heart rate 82 /min Kaylinn Dokken [facility] 10-17-2023 22:14-0500 Mean blood pressure 121 mm[Hg] Kaylinn Dokken [facility] 10-17-2023 22:14-0500 Respiratory rate 18 /min Kaylinn Dokken [facility] 10-17-2023 22:14-0500 SaO2% (BldA) [Mass fraction] 96 % Kaylinn Dokken [facility] 10-17-2023 22:14-0500 Systolic blood pressure 174 mm[Hg] Kaylinn Dokken [facility] 10-17-2023 21:29-0500 Body temperature 97.7 [degF] Kaylinn Dokken [facility] 10-17-2023 21:29-0500 Diastolic blood pressure 75 mm[Hg] Kaylinn Dokken [facility] 10-17-2023 21:29-0500 Heart rate 80 /min Kaylinn Dokken [facility] 10-17-2023 21:29-0500 Respiratory rate 18 /min Kaylinn Dokken [facility] 10-17-2023 21:29-0500 SaO2% (BldA) [Mass fraction] 98 % Kaylinn Dokken [facility] 10-17-2023 21:29-0500 Systolic blood pressure 162 mm[Hg] Kaylinn Dokken [facility] 10-17-2023 21:14-0500 Body temperature 97.7 [degF] Kaylinn Dokken [facility] 10-17-2023 21:14-0500 Diastolic blood pressure 78 mm[Hg] Bryce Funk [facility] 10-17-2023 21:14-0500 Heart rate 83 /min Bryce Funk [facility] 10-17-2023 21:14-0500 Respiratory rate 18 /min Bryce Funk [facility] 10-17-2023 21:14-0500 SaO2% (BldA) [Mass fraction] 99 % Chantelchaips Funk [facility] 10-17-2023 21:14-0500 Systolic blood pressure 158 mm[Hg] moshe Escalanteen [facility] 02-17-2023 11:00-0400 Body height 177.8 cm Perlita Reno Other [facility] [employer] Other 02-17-2023 11:00-0400 Body mass index (BMI) [Ratio] 38.31 kg/m2 Perlita Reno Other [employer] Other 02-17-2023 11:00-0400 Body temperature 97.8 [degF] Perlita Reno Other [employer] Other 02-17-2023 11:00-0400 Body weight 121.11 kg Perlita Reno Other [employer] Other 02-17-2023 11:00-0400 Diastolic blood pressure 787 mm[Hg] Perlita Reno Other [employer] Other 02-17-2023 11:00-0400 SaO2% (BldA) [Mass fraction] 97 % Perlita Reno Other [facility] [employer] Other 02-17-2023 11:00-0400 Systolic blood pressure 130 mm[Hg] Perlita Reno Other [facility] [employer] Other 07-18-2022 14:30-0400 Diastolic blood pressure 65 mm[Hg] Et3 [facility] 07-18-2022 14:30-0400 Heart rate 83 /min Et3 [facility] 07-18-2022 14:30-0400 Respiratory rate 18 /min Et3 [facility] 07-18-2022 14:30-0400 Systolic blood pressure 117 mm[Hg] Et3 [facility] 07-05-2022 13:39-0400 Diastolic blood pressure 67 mm[Hg] [facility] 07-05-2022 13:39-0400 Heart rate 71 /min [facility] 07-05-2022 13:39-0400 Mean blood pressure 88 mm[Hg] [facility] 07-05-2022 13:39-0400 Respiratory rate 18 /min [facility] 07-05-2022 13:39-0400 SaO2% (BldA) [Mass fraction] 99 % [facility] 07-05-2022 13:39-0400 Systolic blood pressure 130 mm[Hg] [facility] 07-05-2022 13:00-0400 Diastolic blood pressure 66 mm[Hg] [facility] 07-05-2022 13:00-0400 Heart rate 69 /min [facility] 07-05-2022 13:00-0400 Mean blood pressure 89 mm[Hg] [facility] 07-05-2022 13:00-0400 SaO2% (BldA) [Mass fraction] 97 % [facility] 07-05-2022 13:00-0400 Systolic blood pressure 135 mm[Hg] [facility] 07-05-2022 12:30-0400 Diastolic blood pressure 63 mm[Hg] [facility] 07-05-2022 12:30-0400 Heart rate 72 /min [facility] 07-05-2022 12:30-0400 Mean blood pressure 84 mm[Hg] [facility] 07-05-2022 12:30-0400 Respiratory rate 18 /min [facility] 07-05-2022 12:30-0400 SaO2% (BldA) [Mass fraction] 93 % [facility] 07-05-2022 12:30-0400 Systolic blood pressure 126 mm[Hg] [facility] 07-05-2022 12:05-0400 Heart rate 76 /min [facility] 07-05-2022 11:50-0400 Body temperature 98.24 [degF] [facility] 07-05-2022 11:50-0400 Heart rate 81 /min [facility] 03-21-2022 08:18-0400 Blood Pressure Location Mitali Carine [facility] 03-21-2022 08:18-0400 Body temperature 97.34 [degF] Mitali Hawk [facility] 03-21-2022 08:18-0400 Diastolic blood pressure 74 mm[Hg] Mitali Hawk [facility] 03-21-2022 08:18-0400 Heart rate 78 /min Mitali Hawk [facility] 03-21-2022 08:18-0400 SaO2% (BldA) [Mass fraction] 96 % Mitali Carine [facility] 03-21-2022 08:18-0400 Systolic blood pressure 122 mm[Hg] Mitali Hawk [facility] Encounters Encounter Date Encounter Type Care Provider Facility Start: 12-22-2023 End: 12-22-2023 ambulatory ADDI POCOS Not Available Start: 11-28-2023 End: 11-28-2023 ambulatory ADDI POCOS Not Available Start: 11-10-2023 End: 11-10-2023 ambulatory ADDI POCOS Not Available Start: 10-28-2023 End: 10-28-2023 ambulatory Addi Pocos [place] Start: 10-28-2023 End: 10-28-2023 Admission to same day surgery epworth Addi Pocos [facility] Start: 10-27-2023 End: 10-28-2023 ambulatory Abbie Gtz [facility] Start: 10-27-2023 End: 10-27-2023 Patient encounter procedure Abbie Gtz III [facility] Start: 10-22-2023 End: 10-23-2023 ambulatory Addi Pocos [facility] Start: 10-22-2023 End: 10-22-2023 Patient encounter procedure Addi Pocos [facility] Start: 10-20-2023 End: 10-20-2023 ambulatory ADDI POCOS Not Available Start: 10-17-2023 End: 10-18-2023 Emergency department patient visit Bryce Funk [facility] Start: 10-17-2023 End: 10-17-2023 Emergency department patient visit Bryce Funk [facility] Start: 08-05-2023 End: 08-06-2023 ambulatory Facundo D Dolce [place] Start: 07-29-2023 End: 07-30-2023 ambulatory Facundo D Dolce [facility] Start: 07-29-2023 End: 07-29-2023 Patient encounter procedure Facundo Hoffman [facility] Start: 07-22-2023 End: 07-23-2023 ambulatory Facundo D Dolce [facility] Start: 07-14-2023 End: 07-15-2023 ambulatory Facundo D Dolce [facility] Start: 07-14-2023 End: 07-15-2023 Patient encounter procedure Facundo Tima Hoffman [facility] Start: 07-08-2023 End: 07-09-2023 ambulatory Facundo D Dolce [facility] Start: 07-08-2023 End: 07-08-2023 Patient encounter procedure Facundo D Qian [facility] Start: 06-30-2023 End: 07-01-2023 ambulatory Facundo D Dolce [facility] Start: 06-30-2023 End: 06-30-2023 Patient encounter procedure Facundo Tima Hoffman [facility] Start: 06-24-2023 End: 06-25-2023 ambulatory Facundo D Dolce [facility] Start: 06-17-2023 End: 06-18-2023 ambulatory Facundo D Dolce [facility] Start: 06-17-2023 End: 06-17-2023 Patient encounter procedure Facundo D Qian [facility] Start: 06-10-2023 End: 06-11-2023 ambulatory Stephen R Bhartice [facility] Start: 06-10-2023 End: 06-10-2023 Patient encounter procedure Stephen R Bhartijames [facility] Start: 06-02-2023 End: 06-03-2023 ambulatory Facundo Hoffman [facility] Start: 06-02-2023 End: 06-03-2023 Pre-admission assessment Facundo Hoffman [facility] Start: 05-27-2023 End: 05-28-2023 ambulatory Stephen R Bhartice [facility] Start: 05-27-2023 End: 05-27-2023 Patient encounter procedure Stephen R Bhartijames [facility] Start: 05-20-2023 End: 05-21-2023 ambulatory Facundo Hoffman [facility] Start: 05-20-2023 End: 05-20-2023 Patient encounter procedure Facundo Hoffman [facility] Start: 05-15-2023 End: 05-16-2023 ambulatory Facundo Hoffman [facility] Start: 05-15-2023 End: 05-15-2023 Patient encounter procedure Facundo Hoffman [facility] Start: 05-06-2023 End: 05-07-2023 ambulatory Facundo Hoffman [facility] Start: 05-06-2023 End: 05-06-2023 Patient encounter procedure Facundo Hoffman [facility] Start: 04-23-[address] FACUNDO HOFFMAN Facility: Start: 04-22-2023 End: 04-23-2023 ambulatory Facundo Hoffman [facility] Start: 04-15-2023 End: 04-16-2023 ambulatory Facundo Hoffman [facility] Start: 04-08-2023 End: 04-09-2023 ambulatory Facundo Hoffman [facility] Start: 04-08-2023 End: 04-08-2023 Patient encounter procedure Facundo Hoffman [facility] Start: 04-02-2023 End: 04-03-2023 ambulatory Stephen R Dolce [facility] Start: 04-02-2023 End: 04-02-2023 Patient encounter procedure Stephen Hoffman [facility] Start: 03-25-2023 End: 03-26-2023 ambulatory Facundo Alfred Doljames [facility] Start: 03-17-2023 End: 03-19-2023 ambulatory Facundo Alfred Dolce [facility] Start: 03-11-2023 End: 03-12-2023 ambulatory Facundo Hayce [facility] Start: 03-11-2023 End: 03-11-2023 Patient encounter procedure Facundo Hoffman [facility] Start: 03-04-2023 End: 03-05-2023 ambulatory Facundo Hayjames [facility] Start: 03-04-2023 End: 03-04-2023 Patient encounter procedure Facundo Hoffman [facility] Start: 02-27-2023 End: 02-27-2023 ambulatory Perlita Ramesho Facility:[facility] Start: 02-27-2023 End: 02-27-2023 ambulatory DO Abbie R Gtz III Work Phone: [facility] Work Phone: Start: 02-27-2023 End: 02-27-2023 Patient encounter procedure DO Abbie Gtz III Work Phone: [facility] Work Phone: Start: 02-24-2023 End: 02-25-2023 ambulatory Facundo Hayjames [facility] Start: 02-24-2023 End: 02-24-2023 Patient encounter procedure Facundo Hoffman [facility] Start: 02-18-2023 End: 02-19-2023 ambulatory Facundo Hayjames [facility] Start: 02-18-2023 End: 02-18-2023 Patient encounter procedure Facundo Hoffman [facility] Start: 02-17-2023 End: 02-17-2023 ambulatory Perlita Reno Other [facility] [employer] Other Start: 02-17-2023 [facility] visit new patient Perlita Ramesh nasir [facility] Start: 02-11-2023 End: 02-12-2023 ambulatory Facundo D Dolce [facility] Start: 02-04-2023 End: 02-05-2023 ambulatory Facundo D Dolce [facility] Start: 02-04-2023 End: 02-04-2023 Patient encounter procedure Facundo Hoffman [facility] Start: 01-28-2023 End: 01-29-2023 ambulatory Facundo D Dolce [facility] Start: 01-28-2023 End: 01-29-2023 ambulatory Facundo D Dolce [facility] Start: 01-28-2023 End: 01-28-2023 Patient encounter procedure Facundo Hoffman [facility] Start: 01-21-2023 End: 01-22-2023 ambulatory Facundo D Dolce [facility] Start: 01-21-2023 End: 01-21-2023 Patient encounter procedure Facundo Hoffman [facility] Start: 01-15-2023 End: 01-22-2023 Pre-admission assessment Facundo Hoffman [facility] Start: 01-14-2023 End: 01-15-2023 ambulatory Facundo D Dolce [facility] Start: 01-14-2023 End: 01-14-2023 Patient encounter procedure Facundo Hayjames [facility] Start: 01-07-2023 End: 01-08-2023 ambulatory Facundo D Dolce [facility] Start: 01-07-2023 End: 01-07-2023 Patient encounter procedure Facundo Hayjames [facility] Start: 12-31-2022 End: 01-01-2023 ambulatory Facundo D Dolce [facility] Start: 12-31-2022 End: 12-31-2022 Patient encounter procedure Facundo Hoffman [facility] Start: 12-27-2022 End: 12-28-2022 ambulatory Facundo Hoffman [facility] Start: 12-27-2022 End: 12-27-2022 Patient encounter procedure Facundo Hoffman [facility] Start: 12-24-2022 End: 12-25-2022 ambulatory Facundo Hoffman [place] [place]: 12-24-2022 End: 12-24-2022 Patient encounter procedure Facundo Hoffman [facility] Start: 12-17-2022 End: 12-18-2022 ambulatory Facundo Hoffman [place] [place]: 12-10-2022 End: 12-11-2022 ambulatory Facundo Hoffman [place] [place]: 12-10-2022 End: 12-10-2022 Patient encounter procedure Facundo Hoffman [facility] Start: 12-03-2022 End: 12-04-2022 ambulatory Facundo Hoffman [facility] [place]: 12-03-2022 End: 12-03-2022 Patient encounter procedure Facundo Hoffman [facility] Start: 10-23-2022 End: 10-31-2022 ambulatory UNKNOWN PROVIDER Facility:[facility] Start: 07-20-2022 End: 07-22-2022 ambulatory UNKNOWN PROVIDER Facility:[facility] Start: 07-18-2022 End: 07-18-2022 [facility] Start: 07-18-2022 End: 07-18-2022 Emergency department patient visit [facility] Emergency Triage, Treat and Transport Comment on above: Arrived Start: 07-05-2022 End: 07-05-2022 Emergency department patient visit Itz Lauren [facility] Start: 03-21-2022 End: 03-21-2022 Patient encounter procedure Mitali Hawk [facility] Start: 02-23-2019 Patient encounter procedure Zakia Buck [place] Start: 01-01-2019 End: 01-02-2019 Patient encounter procedure Stephen Hoffman [facility] Start: 09-03-2017 End: 09-04-2017 Ambulatory NEO ROCHA [facility] Procedures Date Procedure Procedure Detail Performing Clinician Start: 10-28-2023 Open reduction of fr acture with internal fixation Theresa Villalpando Start: 02-27-2023 Duplex scan of lower limb veins DO Abbie Gtz III Work Phone: Start: 03-04-2022 Colonoscopy [facility] Start: 03-04-2022 Colonoscopy Mitali singletary Start: 07-01-2016 EVLT RASV X 2 1 Mitali Cadte einmetz Comment on above: DR. ROCHA Start: [...] t blood in single stool specimen FIT [facility] Start: 1982 [facility] Hepatitis C screening Hepatitis C An tibody [facility] Start: 1965 Tetanus + diphtheria + acellular pertussis vaccine (product) Tdap Booster [facility] Immunizations Immunization Date Immunization Notes Care Provider Hanny macias 08-31-2021 influenza virus vaccine, unspecified formulation Mitali Menendezmetz [facility] 02-02-2021 zoster vaccine recombinant [facility] 09-05-2020 influenza, high dose seasonal, preservative-free [facility] 09-05-2020 influenza virus vaccine, unspecified formulation [facility] 10-15-2019 influenza, high dose seasonal, preservative-free [facility] 09-10-2018 influenza, injectabl e, quadrivalent, preservative free [facility] 09-29-2017 influenza, injectabl e, quadrivalent, preservative free [facility] 09-25-2016 influenza, injectabl e, quadrivalent, preservative free [facility] 03-28-2016 pneumococcal conjuga te vaccine, 13 valent [facility] 09-21-2015 influenza, seasonal, injectable [facility] 12-27-2013 pneumococcal conjuga te vaccine, 13 valent [facility] Payers Date Payer Category Payer Self-pay 2022 Medicaid [id number] 2021 Unknown [id number] 2021 Unknown 2021 Medicare HUMANA MEDICARE HUMANA CHOICE PPO/HMO [id number] 2021-Present [employer] CLAIMS OFFICE [address] [address] [place] [address] PPO [id number] 2018 Unknown [id number] 1947 Unknown [id number] .16.840.1.160983.3.579.2.727 1947 Unknown [id number] 2.16.840.1.394431.3.579.2.72 1947 Unknown [id number] 2.16.840.1.950324.3.579.2.732 1947 Unknown [id number] 2.16.840.1.297826.3.579.2.73 1947 Unknown [id number] 2.16.840.1.547605.3.579.2.593 1947 Unknown [id number] 2.16.840.1.714325.3.579.2. 1947 Unknown [id number] 2.16.840.1.896376.3.579.2 1947 Unknown [id number] 2.16.840.1.768342.3.579.2 1947 Unknown [id number] 2.16.840.1.825127.3.579.272 1947 Unknown [id number] 2.16.840.1.253068.3.579.2 1947 Unknown [id number] 2.16.840.1.330970.3.579.272 1947 Unknown [id number] 2.16.840.1.385871.3.579.2 1947 Unknown [id number] 2.16.840.1.017347.3.579.2.72 1947 Unknown [id number] 2.16.840.1.487152.3.579.2 1947 Unknown [id number] 2.16.840.1.878517.3.579.272 1947 Unknown [id number] 2.16.840.1.708389.3.579.2 1947 Unknown [id number] 2.16.840.1.352464.3.579.2. 1947 Unknown [id number] 2.16.840.1.866684.3.579.2 1947 Unknown [id number] 2.16.840.1.387172.3.579.2 1947 Unknown [id number] 2.16.840.1.190466.3.579.2 1947 Unknown [id number] 2.16.840.1.972579.3.579.2 1947 Unknown [id number] 2.16.840.1.867793.3.579.2 1947 Unknown [id number] 2.16.840.1.364929.3.579.2 1947 Unknown [id number] 2.16.840.1.907941.3.579.2 1947 Unknown [id number] 2.16.840.1.483762.3.579.2 1947 Unknown [id number] 2.16.840.1.988023.3.579.2 1947 Unknown [id number] 2.16.840.1.693922.3.579.2 1947 Unknown [id number] 2.16.840.1.579507.3.579.2 1947 Unknown [id number] 2.16.840.1.745167.3.579.2 1947 Unknown [id number] 2.16.840.1.114794.3.579.2 1947 Unknown [id number] 2.16.840.1.110773.3.579.2 1947 Unknown [id number] 2.16.840.1.986505.3.579.2. 1947 Unknown [id number] 2.16.840.1.890619.3.579.2 1947 Unknown [id number] 2.16.840.1.557091.3.579.2 1947 Unknown [id number] 2.16.840.1.078626.3.579.2 1947 Unknown [id number] 2.16.840.1.992794.3.579.2 1947 Unknown [id number] 2.16.840.1.169184.3.579. 1947 Unknown [id number] 2.16.840.1.439473.3.579.2 1947 Unknown [id number] 2.16.840.1.595646.3.579.2 1947 Unknown [id number] 2.16.840.1.052623.3.579.2 1947 Unknown [id number] 2.16.840.1.974884.3.579.2 1947 Unknown [id number] 2.16.840.1.451888.3.579.2 1947 Unknown [id number] 2.16.840.1.981050.3.579.2 1947 Unknown [id number] 2.16.840.1.579730.3.579.2 1947 Unknown [id number] 2.16.840.1.748796.3.579.2 1947 Unknown [id number] 2.16.840.1.982630.3.579.2 1947 Unknown [id number] 2.16.840.1.799130.3.579.2.1259 1947 Unknown [id number] 2.16.840.1.737804.3.579.2.1259 1947 Unknown [id number] 2.16.840.1.516703.3.579.2.1259 1947 Unknown [id number] 2.16.840.1.249173.3.579.2.1259 1947 Unknown [id number] 2.16.840.1.459534.3.579.2.1259 1947 Unknown [id number] 2.16.840.1.710680.3.579.2.1259 1947 Unknown [id number] 2.16.840.1.785874.3.579.2.1259 Unknown Stacey NOLEN/SARAH [id number] Unknown [id number] 2.16.840.1.033243.3.579.2.531 Social History Date Type Detail Facility Start: 03-21-2022 Tobacco smoking status Ex-smoker (finding) [facility] Tobacco smoking status Never [facility] Sex Assigned At Male [facility] Tobacco smoking status MOIS Tobacco smoking consumption unknown [facility] Start: 1945 Sex Assigned At Not on [facility] Start: 1945 Sex Assigned At Male [facility] Medical Equipment Procedure Code Equipment Code Equipment Origin al Text Equipment Identifier Dates ELBOW FRACTURE O RIF [facility] DOTheresa A 10/28/23 Unknown Elbow R FDA Start: 10-28-2023 ELBOW FRACTURE O RIF [place] DOTheresa 10/28/23 Unknown Elbow R FDA Start: 10-28-2023 Functional Status Date Assessment Result Facility 10-22-2023 Functional Status No [facility] 10-17-2023 Functional Status N/A [facility] 07-05-2022 Functional Status N/A [facility] Clinical Notes 03-21-2022 to 10-28-2023 Note Date & Type Note Facility 10-28-2023 Hospital Discharg e instructions Patient Education 10/28/2023 16:52:15 Post Op Patient Instructions - FT (Custom) (CUSTOM) 10/27/2023 07:36:07 [facility] - Home Care Instructions (Custom) [place] [facility] OUTPATIENT SURGERY Home Care [...] not drive. Theresa Villalpando, DO [facility] [address] [place] [address] [phone] Reviewed: 03-08 Follow Up Care 10/20/2023 14:32:22 With:Theresa Villalpando Address: [address] [place] [address]- Business (1) When:11/10/2023 14:30:00 Comments:Appointment has already been scheduled [facility] 10-27-2023 Note [id number]#1.00TIFF [facility] 10-18-2023 Hospital Discharg e instructions Patient [...] Follow these instructions at home: Medicines Take hmsb-aoy-ohoqpbc and prescription medicines only as told by your health care provider. Ask your health care provider if the medicine prescribed to you: ?Requires you to avoid driving or using heavy machinery. ?Can cause constipation. You may need to take actions to prevent or treat constipation, such as: ?Drink enough fluid to keep your urine pale yellow. ?Take xaum-bin-mmvdagw or prescription medicines. ?Eat foods that are [...] provider. Document Revised: 02/14/2022 Document Reviewed: 02/14/2022 [employer] Patient Education 2022 [employer] Follow Up Care 10/17/2023 21:14:35 With:Theresa Villalpando Address: [address] [place], [place] [phone] Business (1) When:10/20/2023 Comments:You can use the pain medication every 6 hours as needed for pain. Please follow-up with your primary care doctor addition to orthopedics for further evaluation management. Please return to the ED for any new or worsening symptoms. With:Abbie Gtz Address: [address] [place] [address] [place] [address]- Business (1) When:Within 3 Day(s) [facility] 10-17-2023 Evaluation + Plan note Extrac krystal from: Title:ED Note Author:Bryce Funk DO Date :10/17/23 Olecranon fracture (S52.023A : Displaced fracture of olecranon process without intraarticular extension of unspecified ulna, initial encounter for closed fracture) Orders: acetaminophen-hydrocodone, 1 tab(s), Oral, q6hr for pain for 3 day(s), 10 tab(s), Refill(s) 0, [facility], 177.8, cm, 10/17/23 21:21:00 EST, Height/Length Dosing, 133.1, kg, 10/17/23 21:21:00 EST, Weight Dosing Sling Apply XR Elbow 3+ Views Right [facility]03-20-2023 Evaluation note* Encounter Date Diagnosis [...] with this plan, and denies any questions. Interface21 Other 08-20-2022 History of Present illness Narrative* Wilfrid Haley MD - 07/20/2022 8:23 AM EDT Images from the original note were not included. EMERGENCY TRIAGE, TREAT AND TRANSPORT (ET3) DOCUMENTATION OF TELEHEALTH VISIT Date / Time: 07/18/2022 / 1430 Name: Yousif Aguilar : 1945 SSN: [id number] EMS Agency: [facility] [] Verbal consent obtained [] Implied [...] by: Wilfrid Haley MD documented in this [id number] Hospital Discharge instructions Patient Education 07/05/2022 13:44:46 [...] activities that cause pain. General instructions Take ktwc-uzx-dehbzln and prescription medicines only as told by [...] 05/07/2011 Document Revised: 04/03/2020 Document Reviewed: 04/03/2020 [employer] Patient Education 2019 [employer] Follow Up Care 07/05/2022 11:49:47 With:Abbie Gtz Address: [address] [place] [address] [facility] [place] [address] [facility] (1) When:07/08/2022 13:33:40 [facility]08-05-2022 Evaluation + Plan noteExtracted from: [...] XR Hip 2-3 Views Right + Pelvis [facility]04-21-2022 Hospital Discharge instructions Patient Education [...] 08/13/2005 Document Revised: 03/04/2019 Document Reviewed: 03/04/2019 [employer] Patient Education [employer]. Follow Up Care 03/05/2022 13:23:06 With:Mitali Hawk CNP Address: When:1 year only if needed [facility] Evaluation + Plan note No data available for this section [facility] Evaluation + Plan note Future Appointments Appointment Date:12/10/2022 10:00:00 AM Scheduled Provider: [facility] Appointment Type:WC Assessment (FT) Appointment Date:12/17/2022 01:45:00 PM Scheduled Provider:Facundo Hoffman DPM [facility] Appointment Type:WC [facility] Future Appointments Appointment Date:12/17/2022 01:45:00 PM Scheduled Provider:Facundo Hoffman DPM [facility] Appointment Type:WC [facility] (FT[facility] Future Appointments Appointment Date:12/31/2022 10:30:00 AM Scheduled Provider: [facility] Appointment Type:WC Assessment (FT) Appointment Date:01/07/2023 01:45:00 PM Scheduled Provider:Facundo Hoffman DPM [facility] Appointment Type:WC [facility] Future Appointments Appointment Date:12/31/2022 01:30:00 PM Scheduled Provider: [facility] Appointment Type:WC Assessment (FT) Appointment Date:01/07/2023 01:45:00 PM Scheduled Provider:Facundo Hoffman DPM [facility] Appointment Type:WC [facility]FT[facility] Future Appointments Appointment Date:01/07/2023 01:45:00 PM Scheduled Provider:Facundo Hoffman DPM [facility] Appointment Type:WC [facility] Future Appointments Appointment Date:01/14/2023 02:30:00 PM Scheduled Provider:Facundo Hoffman DPM [facility] Appointment Type:WC Follow Up Visit (FT) [facility] + Plan note Future Appointments Appointment Date:01/21/2023 03:30:00 PM Scheduled Provider:Facundo Hoffman DPM Location[facility] Appointment Type:WC Follow Up Visit (FT) [facility] Future Appointments Appointment Date:01/28/2023 03:30:00 PM Scheduled Provider:Facundo Hoffman DPM [facility] Appointment Type:WC Follow Up Visit (FT) Appointment Date:02/11/2023 01:30:00 PM Scheduled Provider:Facundo Hoffman DPM [facility] Appointment Type:WC [facility]FT[facility] Future Appointments Appointment Date:02/04/2023 01:45:00 PM Scheduled Provider:Facundo Hoffman DPM [facility] Appointment Type:WC Follow Up Visit (FT) Appointment Date:02/11/2023 01:30:00 PM Scheduled Provider:Facundo Hoffman DPM [facility] Appointment Type:WC [facility]FT[facility] Future Appointments Appointment Date:02/11/2023 01:30:00 PM Scheduled Provider:Facundo Hoffman DPM [facility] Appointment Type:WC [facility] (FT[facility] Future Appointments Appointment Date:02/25/2023 11:30:00 AM Scheduled Provider: [facility] Appointment Type:WC Assessment (FT) Appointment Date:03/04/2023 01:15:00 PM Scheduled Provider:Facundo Hoffman DPM [facility] Appointment Type:WC [facility] (FT) [facility] Future Appointments Appointment Date:03/04/2023 01:15:00 PM Scheduled Provider:Fcaundo Hoffman DPM [facility] Appointment Type:WC Follow Up Visit (FT) [facility] Future Appointments Appointment Date:03/11/2023 11:00:00 AM Scheduled Provider: [facility] Appointment Type:WC Assessment (FT) Appointment Date:03/17/2023 01:30:00 PM Scheduled Provider: [facility] Appointment Type:WC Assessment (FT) Appointment Date:03/25/2023 02:00:00 PM Scheduled Provider:Facundo Hoffman DPM [facility] Appointment Type:WC Follow Up Visit (FT) [facility] Future Appointments Appointment Date:03/17/2023 01:30:00 PM Scheduled Provider: [facility] Appointment Type:WC Assessment (FT) Appointment Date:03/25/2023 02:00:00 PM Scheduled Provider:Facundo Hoffman DPM [facility] Appointment Type:WC [facility] (FT) [facility] Future Appointments Appointment Date:04/08/2023 01:45:00 PM Scheduled Provider:Facundo Hoffman DPM [facility] Appointment Type:WC [facility] Visit (FT) [facility] Future Appointments Appointment Date:04/15/2023 02:15:00 PM Scheduled Provider:Facundo Hoffman DPM [facility] Appointment Type:WC Follow [facility] Visit (FT) [facility] Future Appointments Appointment Date:05/15/2023 10:00:00 AM Scheduled Provider: [facility] Appointment Type:WC Assessment (FT) Appointment Date:05/20/2023 01:45:00 PM Scheduled Provider:Facundo Hoffman DPM [facility] Appointment Type:WC Follow Up [facility] (FT) [facility] Future Appointments Appointment Date:05/20/2023 03:15:00 PM Scheduled Provider:Facundo Hoffman DPM [facility] Appointment Type:WC Follow Up Visit (FT) [facility] Future Appointments Appointment Date:06/02/2023 08:30:00 AM Scheduled Provider: [facility] Appointment Type:WC Assessment (FT) Appointment Date:06/10/2023 03:00:00 PM Scheduled Provider:Facundo Hoffman DPM [facility] Appointment Type:WC Follow [facility] (FT) [facility] Future Appointments Appointment Date:06/10/2023 03:00:00 PM Scheduled Provider:Facundo Hoffman DPM [facility] Appointment Type:WC Follow Up Visit (FT) [facility] Future Appointments Appointment Date:06/24/2023 03:00:00 PM Scheduled Provider:Facundo Hoffman DPM [facility] Appointment Type:WC Follow Up Visit (FT) [facility] Future Appointments Appointment Date:07/08/2023 01:45:00 PM Scheduled Provider:Facundo Hoffman DPM [facility] Appointment Type:WC Follow Up Visit (FT) [facility] Future Appointments Appointment Date:07/14/2023 09:00:00 AM Scheduled Provider: [facility] Appointment Type:WC Assessment (FT) Appointment Date:07/22/2023 02:00:00 PM Scheduled Provider:Facundo Hoffman DPM [facility] Appointment Type:WC Follow [facility] (FT) [facility] Future Appointments Appointment Date:07/22/2023 02:00:00 PM Scheduled Provider:Facundo Hoffman DPM [facility] Appointment Type:WC Follow Up Visit (FT) [facility] Future Appointments Appointment Date:08/05/2023 02:00:00 PM Scheduled Provider:Facundo Hoffman DPM [facility] Appointment Type:WC Follow Up Visit (FT) [facility] Future Appointments Appointment Date:10/28/2023 02:00:00 PM Scheduled Provider: Location:[facility] Appointment Type:Surgery FT [facility]* Diagnosis Fall in home, initial encounter- Primary documented in this [facility] Work Phone: History general Narrative - Reported* Type Description Date Medical History high cholesterol Medical History Blood clots Surgical History hand and leg surgery 1974 Surgical History jaw wiring Surgical History elbow surgery Surgical History appendectomy Surgical History wrist surgery right hand Hospitalization History see above Interface21 Other Hospital Discharge instructions No data available for this section [facility] No data available for this section [facility] Summary Purpose Family History No [...] section and content) DATE CREATED AUTHOR 05/27/2018 [facility] DATE CREATED AUTHOR AUTHOR'S ORGANIZ ATION 02/25/2019 [facility] DATE CREATED AUTHOR AUTHOR'S ORGANIZ ATION 11/01/2022 [employer] DATE CREATED AUTHOR AUTHOR'S ORGANIZ ATION 03/15/2023 [facility] DATE CREATED AUTHOR AUTHOR'S ORGANIZ ATION 04/09/2023 [facility] DATE CREATED AUTHOR AUTHOR'S ORGANIZ ATION 11/05/2023 Gerardo Soni [facility] DATE CREATED AUTHOR AUTHOR'S ORGANIZ ATION 12/22/2023 [facility] dical Specialists EPIC Care Team (unrecognized sect [...] BE BASED ON THE PRIMARY CLINICAL RECORDS. [employer] provides no warranty or guarantee of the accuracy or completeness of information in this document.
== END 2024-01-20 13:10 | disposition home or self-care (01) ==
LOC: VC 13:09
PROVIDERS: PCP Radiology Diagnostic Radiology; Visit Provider Radiology Diagnostic Radiology
DX: I80.01 Phlebitis and thrombophlebitis of superficial vessels of right lower extremity (principal)
CPT/HCPCS: 93971; G0463

== ENCOUNTER 2024-01-27 09:45 | Outpatient (OUT) | payer OTHER, MEDICAID, SELFPAY ==
--- NOTE | 2024-01-27 09:46 | VEIN_ITS ---
[address] [address] Patient Name: YOUSIF NAJERA MRN: [id number] date: 1945 Sex: M Assigned Patient Location: Current Patient Location: Accession/Order Number: [id number] Exam Date: 01/27/2024 09:55 Report Date: 01/27/2024 10:39 At the request of: THERESA DE DIOS Procedure: VC INJ Foam Sclerosant WUS FIREARMS EXPERT PROCEDURE: VC INJ Foam Sclerosant WUS FIREARMS EXPERT, left leg COMPARISON: None. 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 Ultrasound-guided microfoam chemical ablation with Varithenaregistered 2. Intraoperative ultrasound guidance Anesthesia: None Indications for Procedure: 78-year-old male who presents with a long history of lower extremity pain and swelling culminating venous stasis ulcerations. The patient failed conservative medical therapy including medical compression stockings, exercise and analgesics. Prior procedures include endovenous laser ablation. Multiple incompetent varicosities of the left leg. Duplex scan showed reflux and enlarged diameters up to 6 mm. The patient underwent informed consent including management options where the complications of infection, bleeding, pain, and skin injury were discussed. Particular attention was spent discussing thrombus extension and deep vein thrombosis as well as the possibility of pulmonary embolus and treatment with oral or injectable blood thinners. Procedure: The patient walked to the procedure room. All applicable staff donned appropriate apparel. A procedure timeout was performed to confirm correct patient, correct extremity, correct procedure, and correct room set-up including presence of all applicable supplies, devices, and drugs. A duplex ultrasound, performed by myself confirmed the location and incompetence of branch saphenous varicosities and their course was marked on the skin together with the dilated tributaries. The extent of treatment of the vein and the associated varicosities was determined through ultrasound mapping. The skin was prepped and then punctured with a butterfly needle and advanced under ultrasound guidance. The Varithenaregistered canister was activated and the canister was primed and purged as required in the instructions for use. Varithenaregistered was drawn into a sterile syringe. The following injections were made: 8 cc injected with 5 mm varicose vein left distal medial lower leg 4 cc injected into a 4 mm varicose veins left proximal anterior lower leg 4 cc injected into a 6 mm varicose vein left medial mid lower leg Varithenaregistered was slowly administered at 0.5-1.0 cc/second with close observation by ultrasound of its course in the vessels. Total volume utilized was: 16cc. Following administration of Varithenaregistered the leg was elevated and the patient was asked to repeatedly dorsiflex the ankle to limit flow of Varithenaregistered into perforating veins. Once appropriate spasm had been confirmed in the treated veins, the vascular catheter was removed from the leg and light pressure was applied over the puncture site for hemostasis. The common femoral and deep superficial veins were then evaluated for flow and compressibility prior to dressing placement. The lower extremity was kept elevated at 45 degrees above the horizontal and cording material was applied over the saphenous segments and tributaries to allow for eccentric compression over the target vessels including the targeted saphenous vein(s). A multilayer dressing was applied consisting of foam pads, coban and thigh-high 20-30 mm Hg compression elastic support hose were placed on the patient. The leg was lowered only after compression had been applied and the patient was immediately ambulatory. The patient ambulated 10 minutes under supervision and was without apparent concerns at time of release. Post-care instructions include advising patient to keep post-treatment bandages in place and dry for 48 hours, avoid extended periods of inactivity, avoid heavy exercise for one week, wear compression stockings on the treated leg continuously for two weeks, to walk daily for 10 minutes over the next month. The patient was instructed to take an anti-inflammatory medicine as needed and to follow up for color duplex scan of the Saphenous veins, the treated branch saphenous varicosities, the adjacent deep veins, and additional treatment within 7 days. PERSONNEL: Cindy Sanchez RN Electronically authenticated by: THERESA DE DIOS Date: 01/27/2024 10:39
--- OUTSIDE RECORDS SUMMARY | 2024-01-27 09:58 | XMS_ITS | CCD ---
Author Name Unknown Address [address] [place] [address] Organization [facility] Care Team Providers Care Copying Machine Repairer Name Role Phone NEO ROCHA Unavailable Unavailable GTZ III, ABBIE R Unavailable Unavailabl e Dolce, Stephen R. Admitting Unavailable Dolce, Stephen R. Attending Unavailable Gtz, Abbie Primary Care Unavailable [place] Admitting Unavailable [place] Attending Unavailable Gtz, Abbie Primary Care Unavailable Gtz III, Abbie R Primary Care Physician [phone] Unavailable Primary Care Provider Unavailabl e PROVIDER, [...] Pocos, Theresa Montgomery Attending Unavailable Pocos, Theresa Mongtomery Admitting Unavailable Dolce, Facundo Alfred Attending Unavailable [...] [IODINE] Drug Allergy 6 Unknown (qualifier value) [facility] Repository (20 sources) Penicillins; Translations: [PENICILLINS] Propensity to adverse reactions to drug (disorder) 6 Unknown (qualifier value) [facility] Repository (1 source) SHELLFISH CONTAINING PRODUCTS; Translations: [SHELLFISH CONTAINING PRODUCTS] Propensity to adverse reactions to drug (disorder) 7 AOF [facility] Repository (20 sources) Shellfish; Translations: [shellfish] Propensity to adverse reactions (disorder) Pharyngeal swelling (finding), Difficulty breathing (finding) [facility] Repository (5 sources) Contrast media; Translations: [Contrast Dye] Propensity to adverse reactions Dizziness (finding) [facility] (1 source) Penicillin Drug Allergy rash [employer] Other (1 source) Shellfish Drug allergy Unknown [employer] Other (1 source) Penicillins; Translations: [penicillins] Drug allergy Unknown (qualifier value) [facility] Comment on above: as a child Medications Current Medications Medication Drug Class(es) Dates Sig (Normalized) Sig (Original) acetaminophen 325 mg / HYDROcodone bitartrate 5 mg oral tablet (2 sources) Opioid Agonist Start: 10-28-2023 Sidell 325 mg-5 mg oral tablet See Instructions, for pain, 40 tab(s), Refill(s) 0, 1 - 2 po q4-6h prn pain Dx: S52.031D Duration: 7 days, [id number], 177, cm, 10/22/23 12:25:00 EST, Height/Length Dosing, 132.5, kg, 10/22/23 12:25:00 EST, Weight Dosing Start Date: 10/28/23 Status: Ordered Start: 10-17-2023 End: 10-20-2023 take 1 tablet by mouth every six hours for pain Sidell 325 mg-5 mg oral tablet 1 tab(s), Oral, q6hr for pain for 3 day(s), 10 tab(s), Refill(s) 0, [facility], 177.8, cm, 10/17/23 21:21:00 [...] constipation, # 40 cap(s), Refills(s) 0, Pharmacy: [facility]/pharmacy #6173, 177, cm, 10/22/23 12:25:00 EST, [...] Facility IntraOperative Documentson 1 01-04-2023 IntraOperative Documents [id number]#1.00TIFF [facility] Progress Note-Physicianon Progress Note-Physician Patient: YOUSIF AGUILAR Age: 77 years Sex: Male : 1945 Associated Diagnoses: None Author: MD Rudd Ahmad F Postoperative Information Postoperative disposition: Postoperative disposition: To PACU. Optimetrix number: Optimetrix number [id number]. Anesthetic utilized: General. Health Status Allergies: Allergic [...] when meets criteria ( To home ). [facility] Comment on above: Result Comment: Elec tronically [...] constipation, # 40 cap(s), Refills(s) 0, Pharmacy: [facility]/pharmacy #6173, 177, cm, 10/22/23 12:25:00 EST, Height/Length Dosing, 132.5, kg, 10/22/23 12:25:00 EST, Weight Dosing Sidell 325 mg-5 mg oral tablet: See Instructions, for pain, 40 tab(s), Refill(s) 0, 1 - 2 po q4-6h prn pain Dx: S52.031D Duration: 7 days, [facility]pharmacy #6173, 177, cm, 10/22/23 12:25:00 EST, [...] Problems High blood pressure / SNOMED CT 9183508107 / Confirmed Hypercholesterolemia / ICD-9-CM 272.0 / Confirmed Lymphedema / SNOMED CT 48617349 / Confirmed 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 / SNOMED CT 537044666 / Confirmed History of colon polyps / SNOMED CT 1742264210 / Confirmed Colon polyp / SNOMED CT 837920691 / Confirmed Diverticulosis / SNOMED CT 7246054036 / Confirmed Hemorrhoids / SNOMED CT 106471912 / Confirmed Extreme obesity / SNOMED CT 78B12667-0TC5-38D0-K667-9 [id number] / Possible Resolved: DVT / SNOMED CT 225673466 Resolved: PE - Pulmonary embolism / SNOMED CT 0619525797 Resolved: Stasis dermatitis co-occurrent with venous ulcer of right lower extremity due to chronic peripheral venous hypertension / SNOMED CT 188945135632023 Resolved: Stasis dermatitis of left lower extremity due to peripheral venous hypertension / SNOMED CT 052814973143366 Resolved: Stasis dermatitis of right lower extremity due to peripheral venous hypertension / SNOMED CT 759180684758263 Resolved: Stasis dermatitis and venous ulcer of left lower extremity due to chronic peripheral venous hypertension / SNOMED CT 970573387467214 Histories Past Medical History: Active Hypercholesterolemia (272.0) Lymphedema (19990924) Resolved PE - Pulmonary embolism (7351738752): Onset on 12/01/2005 at 60 years. Resolved. DVT (188917064): Resolved. Stasis dermatitis co-occurrent with venous ulcer of right lower extremity due to chronic peripheral venous hypertension (212724111245885): Resolved. Stasis dermatitis of left lower extremity due to peripheral venous hypertension (820585458188786): Resolved. Stasis dermatitis of right lower extremity due to peripheral venous hypertension (923116341150089): Resolved. Stasis dermatitis and venous ulcer of left lower extremity due to chronic peripheral venous hypertension (401423638777015): Resolved. Family History: Hyperlipidemia Mother Heart disease Father Non Hodgkin's lymphoma Mother Procedure history: ORIF of Right Elbow (113438959) on 10/28/2023 at 77 Years. Colonoscopy (881617451) on 03/04/2022 at 76 Years. EVLT RLSV [...] fracture in 1966 at 21 Years. Appendectomy (549275589) in 1952 at 7 Years. bilateral wrist [...] visible). Respiratory (more content not included)... Normal [facility] Comment on above: Result Comment: Elec tronically Signed By: MD Kar, Jemima Bella\.br\Date and Time Signed: 11/01/23 18:14 EST Operative Reporton Operative Report SURGERY DATE: 2022 PAPER TESTING SUPERVISOR: Samuel Gonsalez PA-C PREOPERATIVE DIAGNOSIS: Right olecranon fracture POSTOPERATIVE DIAGNOSIS: Right olecranon fracture OPERATION: Right olecranon open reduction internal fixation ANESTHESIA: General ANESTHESIOLOGIST: CINDY Faria ESTIMATED BLOOD LOSS: None SPECIMEN: None COMPLICATIONS: None IMPLANT: 0.062 K-wire x2 with 18 gauge dental wire for a nxxxck-mr-qhhnh tension band construct HISTORY/OPERATIVE INDICATIONS: Yousif is [...] visualized. It is then fixed with a prvzyv-rl-tfhvx construct as described below. Samuel Gonsalez did [...] This is done in the standard fashion. Juwoxm-vw-fdfak is then applied, tensioned accordingly, is cut [...] patient is subsequently extubated, transferred to the [facility] and taken to Post-Anesthesia Care Unit in stable condition. He will be discharged this day. Theresa Villalpando D.O. Dictated: 10/28/2023 [id number] Transcribed: 10/29/2023 cc:Abbie Gtz III, D.O. [facility] Comment on above: Result Comment: Elec tronically Signed By: Theresa Villalpando DO\.br\Date and Time Signed: 10/30/23 11:53 EST Consent for Anesthesiaon Consent for Anesthesia [id number]#1.00TIFF Normal [facility] Discharge Instructionson Discharge Instructions [id number]#1.00TIFF Normal [facility] Insurance Correspondence Off iceon 10-29-2023 Insurance Correspondence Office [id number]#1.00TIFF Normal [facility] IntraOperative Documentson 1 12-29-2022 IntraOperative Documents [id number]#1.00TIFF Normal [facility] Main OR Intraoperative Recor don 10-29-2023 Main OR Intraoperative Record IntraOp Document Type FT Summary Primary Physician: Theresa Villalpando DO Finalized Date/Time: 10/29/23 12:32:07 Pt. Name: YOUSIF AGUILAR/Sex: 1945 Male Med Rec #: [id number] Physician: Theresa Villalpando DO Financial #: [id number] Pt. Type: A Room/Bed: [place] [address] Admit/Disch: 10/28/23 10:36:00 - 10/28/23 17:40:00 Institution: [...] D Role Performed Anesthesiologist Surgeon - Primary PA/YARDER Venture Capitalist Time In 10/28/23 14:07:00 10/28/23 14:07:00 10/28/23 14:07:00 Time Out 10/28/23 15:30:00 10/28/23 15:30:00 10/28/23 15:30:00 Procedure ELBOW FRACTURE ELBOW FRACTURE ELBOW FRACTURE ORIF(Right) ORIF(Right) ORIF(Right) Comments DR URDD SUPERVISING Last Modified By: Idris Brooks Terry T Sweene, Terry T 10/28/23 15:42:39 10/28/23 15:42:39 10/28/23 15:42:39 Entry 4 Entry 5 Entry 6 Case Attendee Idris Brooks Laura C Roll RT, Daniel P Role Performed Music Publicist - Primary Scrub - Primary Commodity Director Time In 10/28/23 14:07:00 10/28/23 14:07:00 10/28/23 [...] and tissue Entry 1 Skin Integrity Intact, [place], Warm, and Skin Abnormality No Dry Outcomes [...] symptoms o (more content not included)... Normal [facility] Preoperative Documentson Preoperative Documents [id number]#1.00TIFF Normal [facility] XR Elbow 2 Views Righton XR [...] mGy = 1.66 DAP = na Normal [facility] Consent for Treatmenton 10-02 Consent for Treatment [id number]#1.00TIFF Normal [facility] Discharge Instructionson Discharge Instructions YOUSIF AGUILAR [...] physician. This Is Your Medications List acetaminophen-hydrocodone (Sidell 325 mg-5 mg oral tablet) atorvastatin (atorvastatin [...] Comments: Appointment has already been scheduled Where: [address] [place] [phone] (1) Medications What How Much When Instructions Next Dose Unchanged acetaminophen-hydrocodone (Sidell 325 mg-5 mg oral tablet) See instructions 1 - 2 po q4-6h prn pain Dx: S52.031D Duration: 7 days Pickup at [facility]/pharmacy #6173 Unchanged atorvastatin (atorvastatin 20 mg Tab) 1 Tablets By Mouth Once a day (at bedtime) Unchanged docusate (Colace 100 mg Cap) 1 Capsules By Mouth 2 times a day as needed for for constipation [facility] Unchanged hydrochlorothiazide (hydrochlorothiazide 25 mg oral tablet) 1 Tablets By Mouth Every day Unchanged rivaroxaban (Xarelto 2.5 mg oral tablet) 2 Tablets By Mouth Every day Pharmacy Information [facility]/pharmacy #6173: [address] [place] [address], [place] [id number] [phone] Test Results No qualifying data available. Allergies [...] WIRE 10/28/2023 K-WIRE (2), 10/28/2023 [employer] [place], [place] [facility] OUTPATIENT SURGERY Home Care [...] pain a (more content not included)... Normal [facility] Comment on above: Result Comment: Elec tronically Signed By: Flavio PHELPS, Marilou Aguero\.br\Date and Time Signed: 10/28/23 16:53 EST H&P Updateon 10-28-2023 H&P Update [id number]#1.00TIF F [facility] Main OR PACU I Recordon 10-02 Main OR PACU I Record PACU Phase I Document Type FT Summary Primary Physician: Theresa Villalpando DO Finalized Date/Time: 10/28/23 16:14:58 Pt. Name: YOUSIF AGUILAR Jimbo Gaines/Sex: 1945 Male Med Rec #: [id number] Physician: Theresa Villalpando DO Financial #: [id number] Pt. Type: A Room/Bed: [facility] Admit/Disch: 10/28/23 10:36:00 - Institution: Case [...] By: Elizabeth Rowe RN 10/28/23 16:14 Normal [facility] Main OR Preoperative Recordo n 10-28-2023 Main OR Preoperative Record PreOp Document Type FT Summary Primary Physician: Theresa Villalpando DO Finalized Date/Time: 10/28/23 14:12:47 Pt. Name: YOUSIF AGUILAR./Sex: 1945 Male Med Rec #: [id number] Physician: Theresa Villalpando DO Financial #: [id number] Pt. Type: A Room/Bed: [place] [address] Admit/Disch: 10/28/23 10:36:00 - Institution: Case Times [...] Signed By: Idris Brooks 10/28/23 14:12 Normal [facility] Monitor Recordon 10-28-2023 Monitor Record [id number]#1.00TIFF Normal [facility] Patient Education - Texton 1 12-28-2022 Patient Education - Text [place] [facility] OUTPATIENT SURGERY Home Care [...] drive. __ Theresa Villalpando DO [facility] [address] [place] [address] Reviewed: 03-08 [facility] Progress Note-Physicianon Progress Note-Physician Patient: YOUSIF AGUILAR Age: 77 years Sex: Male : 1945 Associated Diagnoses: None Author: Theresa Villalpando DO Postoperative Information Procedure: R Olecranon ORIF Preoperative Diagnosis: R olecranon fx. Postoperative Diagnosis: same. Performed by: camila. Venture Capitalist: Wallace. Specimens Removed: none. Prosthesis: tension band. . Estimated Blood Loss: 0 ml. Complications: None. Anesthesia type: General. Normal [facility] Comment on above: Result Comment: Elec tronically Signed By: Theresa Villalpando DO\Date and Time Signed: 10/28/23 15:37 EST CHEMISTRYOrdered By: SYSTEM SYSTEM on 10-27-2023 Potassium [Moles/Vol] 3.6 mmol/L Normal 3.5 - 5.3 mmol/L [facility] Consent for Procedure/Surger yon 10-27-2023 Consent for Procedure/Surgery [id number]#1.00TIFF [facility] Consent for Treatmenton 10-02 Consent for Treatment [id number]#1.00TIFF [facility] Physician Orderon 10-27-2023 Physician Order [id number]#1.00TIFF [facility] Potassiumon 10-27-2023 Potassium [Moles/Vol] 3.6 mmol/L Normal 3.5-5.3 [facility] Comment on above: Performed By: #### 2 [id number] #### [facility] Laboratory [address] [place] [address] XR Chest 2 Viewson 3 XR Chest [...] mGy = na DAP = na Normal [facility] Auto Diffon 10-22-2023 Basophils/100 WBC (Bld) 0.3 % Normal 0.0-2.0 [facility] Comment on above: Order Comment: Order Added by Discern Expert. Performed By: #### 2 605158, 9997019, 9528382, 67140246 ####[address] [address] Basophils/Leukocytes Auto (Bld) [Pure # fraction] 0.0 E9/L Normal 0.0-0.2 [facility] Comment on above: Order Comment: Order Added by Discern Expert. Performed By: #### 2 278906, 8037136, 9867423, 82293643 ####[address] [address] Eosinophils/100 WBC (Bld) 3.6 % Normal 0.0-8.0 [facility] Comment on above: Order Comment: Order Added by Discern Expert. Performed By: #### 2 779365, 2959759, 7695130, 30487528 ####[address] [address] Eosinophils/Leukocyt es Auto (Bld) [Pure # fraction] 0.3 E9/L Normal 0.0-0.5 [facility] Comment on above: Order Comment: Order Added by Discern Expert. Performed By: #### 2 971199, 3172000, 8857327, 88013273 ####[address] [address] Lymphocytes/100 WBC (Bld) 15.5 % Normal 14.0-50.0 [facility] Comment on above: Order Comment: Order Added by Discern Expert. Performed By: #### 2 244040, 5736228, 7815641, 50282037 ####[address] [place] [address] Lymphocytes/Leukocyt es Auto (Bld) [Pure # fraction] 1.1 E9/L Normal 1.0-4.0 [facility] Comment on above: Order Comment: Order Added by Discern Expert. Performed By: #### 2 799909, 0571554, 3159960, 49539134 ####[address] [address] [place] [address] Monocytes/100 WBC (Bld) 9.5 % Normal 4.0-14.0 [facility] Comment on above: Order Comment: Order Added by Discern Expert. Performed By: #### 2 642732, 9923639, 5498616, 87376492 ####[address] [address] Monocytes/Leukocytes Auto (Bld) [Pure # fraction] 0.7 E9/L Normal 0.2-1.0 [facility] Comment on above: Order Comment: Order Added by Discern Expert. Performed By: #### 2 573350, 2112280, 3316401, 57407350 ####[address] [address] Neutrophils/100 WBC (Bld) 71.1 % Normal 36.0-75.0 [facility] Comment on above: Order Comment: Order Added by Discern Expert. Performed By: #### 2 268227, 4047752, 1951235, 55913181 ####[address] [address] Neutrophils/Leukocyt es Auto (Bld) [Pure # fraction] 5.2 E9/L Normal 2.0-7.5 [facility] Comment on above: Order Comment: Order Added by Discern Expert. Performed By: #### 2 724198, 3904998, 4045889, 20072057 ####[address] [place] [address] BMPon 10-22-2023 Anion gap [Moles/Vol] 13 mmol/L Normal 6-16 [facility] Comment on above: Performed By: #### 2 929499, 7726634, 6380033, 78146643 ####[facility] [address] [place] [address] Calcium [Mass/Vol] 8.4 mg/dL Low 8.9-11.1 [facility] Comment on above: Performed By: #### 2 073989, 8169996, 9706684, 42335719 ####[facility] [address] [address] Chloride [Moles/Vol] 97 mmol/L Low 101-111 [facility] Comment on above: Performed By: #### 2 321195, 4382332, 4659877, 12351888 ####[facility] [address] [address] CO2 [Moles/Vol] 31 mmol/L Normal 21-31 [facility] Comment on above: Performed By: #### 2 656724, 8555766, 2762957, 16007243 ####[facility] [address] [address] Creatinine [Mass/Vol] 0.9 mg/dL Normal 0.5-1.3 [facility] Comment on above: Performed By: #### 2 473026, 3203706, 4837861, 21739303 ####[facility] [address] [place] [address] Glucose [Mass/Vol] 105 mg/dL Normal 55-199 [facility] Comment on above: Result Comment: If t his glucose result represents a fasting glucose, interpretation should refer to the following reference range: 55-99 mg/dL Performed By: #### 2 906856, 6858488, 4834991, 13607234 ####[facility] [address] [address] Potassium [Moles/Vol] 2.8 mmol/L Abnormal 3.5-5.3 [facility] Comment on above: Result Comment: Crit ical Result verified by repeat analysis\Critical Result S_K:2.8 Called to [facility] by MITALI DUBON And Read Back For Confirmation at: 10/22/2023 13:36:24 Performed By: #### 2 586060, 6355436, 1320187, 13159538 ####[facility] [address] [place] [address] Sodium [Moles/Vol] 138 mmol/L Normal 135-145 [facility] Comment on above: Performed By: #### 2 461909, 8190458, 7651921, 44976299 ####[facility] [address] [place] [address] Urea nitrogen [Mass/Vol] 17 mg/dL Normal 5-21 [facility] Comment on above: Performed By: #### 2 274178, 3909618, 4464985, 30348061 ####[facility] [address] [place] [address] Urea nitrogen/Creatinine [Mass ratio] 19 No Units Normal 10-20 [facility] Comment on above: Performed By: #### 2 427681, 2326960, 0064033, 32529752 ####[facility] [address] [place] [address] CBC w/ Auto Diffon 3 Erythrocyte distribution width (RBC) [Ratio] 14.1 % Normal 10.9-14.2 [facility] Comment on above: Performed By: #### 2 850095, 4592014, 9855703, 91242236 ####[address] [address] Hematocrit (Bld) [Volume fraction] 32.6 % Low 37.7-49.0 [facility] Comment on above: Performed By: #### 2 169059, 2776311, 1173325, 32903896 ####[address] [place] [address] Hemoglobin (Bld) [Mass/Vol] 10.9 g/dL Low 13.5-17.5 [facility] Comment on above: Performed By: #### 2 311112, 8675841, 7806457, 66375308 ####[address] [place] [address] MCH (RBC) [Entitic mass] 28.9 pg Normal 27.0-34.0 [facility] Comment on above: Performed By: #### 2 322519, 4217337, 8791898, 19252392 ####[address] [address] MCHC (RBC) [Mass/Vol] 33.5 g/dL Normal 31.4-36.0 [facility] Comment on above: Performed By: #### 2 771787, 3490233, 3553945, 13616340 ####[address] [address] MCV (RBC) [Entitic vol] 86.3 fL Normal 80.0-100.0 [facility] Comment on above: Performed By: #### 2 630752, 2015593, 7621732, 37947146 ####[address] [address] Platelet mean volume (Bld) [Entitic vol] 8.8 fL Normal 6.4-10.8 [facility] Comment on above: Performed By: #### 2 582058, 3645852, 3578213, 57066579 ####[address] [address] Platelets (Bld) [#/Vol] 245.0 E9/L Normal 150.0-500.0 [facility] Comment on above: Performed By: #### 2 914395, 4102136, 1278282, 73269205 ####[address] [address] RBC (Bld) [#/Vol] 3.8 E12/L Low 4.3-5.9 [facility] Comment on above: Performed By: #### 2 136153, 9559060, 0036578, 70305329 ####[address] [address] WBC corrected for nucl RBC Auto (Bld) [#/Vol] 7.4 E9/L Normal 4.0-11.0 [facility] Comment on above: Performed By: #### 2 774528, 5819062, 5580157, 83313958 ####[facility] [address] [place] [address] CHEMISTRYOrdered By: SYSTEM SYSTEM on 10-22-2023 Anion [...] 89 mL/min/1.73 m2 Normal >=59mL/min/ 1.73 m2 [facility] Chem S Comment on above: Interpretive Data: [...] S_K:2.8 Called to [facility] by MITALI DUBON And Read Back For Confirmation at: 10/22/2023 13:36:24 Sodium [Moles/Vol] 138 mmol/L Normal 135 - 145 mmol/L [facility] Remisol Urea nitrogen [Mass/Vol] 17 mg/dL Normal 5 - 21 mg/dL [facility] Remisol Urea nitrogen/Creatinine [Mass ratio] 19 mg/mg Normal 10 - 20 FT Remisol Consent for Treatmenton 10-02 Consent for Treatment [id number]#1.00TIFF Normal [facility] HEMATOLOGYOrdered By: SYSTEM SYSTEM on 10-22-2023 [...] [Vol rate/Area] 89 mL/min/1.73 m2 Normal >=59 [facility] Comment on above: Order Comment: Order added by Discern Expert. Result Comment: Disaster Recovery Specialist mercy kidney disease could be indicated at eGFR's of less than 60 mL/min/1.73m2. Kidney failure is indicated at less than 15 mL/min/1.73m2. Performed By: #### 2 667479, 0277359, 1061445, 03627813 ####[facility] [address] [place] [address] Consent for Treatmenton 10-01 Consent for Treatment [id number]#1.00TIFF Normal [facility] Discharge Instructionson Discharge Instructions [id number] Normal [facility] ED Clinical Summaryon 2022 ED Clinical Summary (Inserted Image. Clarissa ble to display) [address] [address] ED Clinical Summary Person Information Name: YOUSIF AGUILAR Olga L[place] Age: 77 Years : 1945 Sex: Male Language: Sinhala PCP: Abbie Gtz III, DO Marital Status: [...] 10/17/2023 23:43:34 10/17/2023 23:43:34 10/17/2023 23:43:34 ADDRESS: [address] [place] [id number] PHYS DOC NOTES: MEDICAL INFORMATION: Prescriptions Given: New Medications [facility] 1986, [address] [facility] [place], [place] [id number], [phone] acetaminophen-hydrocodone (Sidell 325 mg-5 mg oral tablet) 1 Tablets [...] up: With: Address: When: Theresa Villalpando [address] [place] [address] Business (1) In 3 days 10/20/2023 Comments: You can use the pain medication every 6 hours as needed for pain. Please follow-up with your primary care doctor addition to orthopedics for further evaluation management. Please return to the ED for any new or worsening symptoms. With: Address: When: Abbie Gtz [address] [facility] [place] [address] Business (1) In 3 days DIAGNOSIS: Olecranon fracture Normal [facility] ED Note-Physicianon 10-18-20 ED Note-Physician Basic Information Time Seen: Bryce Funk DO 10/17/2023 21:16 Chief Complaint Pt arrives via [facility] for a fall. Pt states he [...] and Complexity of Problems Differential Diagnosis: [] [facility] Data External documents reviewed: [] My [...] for 3 day(s), 10 tab(s), Refill(s) 0, [facility] 1985, 177.8, cm, 10/17/23 21:21:00 EST, Height/Length Dosing, 133.1, kg, 10/17/23 21:21:00 EST, Weight Dosing Sling Apply XR Elbow 3+ Views Right Disposition Plan Discharge Prescription List Prescriptions Sidell 325 mg-5 mg oral tablet, 1 tab(s), Oral, q6hr, PRN Follow-up With When Contact Information Theresa Villalpando In 3 days 10/20/2023 EST [address] [place] [address]- Business (1) Additional Instructions: You can use the pain medication every 6 hours as needed for pain. Please follow-up with your primary care doctor addition to orthopedics for further evaluation management. Please return to the ED for any new or worsening symptoms. Abbie Gtz In 3 days [address] [facility] [address] [place] [address]- Business (1) Additional Instructions: Patient [...] lower ex (more content not included)... Normal [facility] Comment on above: Result Comment: Elec [...] these instructions at home: Medicines ? Take yifq-uwu-xctiwcs and prescription medicines only as told by your health care provider. ? Ask your health care provider if the medicine prescribed to you: ? Requires you to avoid driving or using heavy machinery. ? Can cause constipation. You may need to take actions to prevent or treat constipation, such as: ? Drink enough fluid to keep your urine pale yellow. ? Take guzr-hat-xlhtygz or prescription medicines. ? Eat foods that [...] is import (more content not included)... Normal [facility] ED Patient Summaryon 023 ED Patient Summary (Inserted Image. [place] ble to display) [place] [id number] Patient Discharge Instructions Person Information Name: YOUSIF AGUILAR Age: 77 Years Arrival Date: 10/17/2023 21:13:58 Discharge Diagnosis: Olecranon fracture Primary Care Physician: Abbie Gtz III, DO Provider Information Primary Provider: Bryce Funk DO Advanced Neighborhood Planner:None The exam and treatment you received in the Emergency Department were for an urgent problem and are not intended as complete care. It is important that you follow up with a doctor, nurse practitioner, or physician?s certified physician assistant for ongoing care. If your symptoms [...] Instructions: With: Address: When: Theresa [address]ia [address] [place] [address] Meme (1) In 3 days 10/20/2023 Comments: You can use the pain medication every 6 hours as needed for pain. Please follow-up with your primary care doctor addition to orthopedics for further evaluation management. Please return to the ED for any new or worsening symptoms. With: Address: When: Abbie Gtz [address] [facility], [facility], [place] [address] Meme (1) In 3 days In the event that this physician does not participate in your insurance network, please consult with your insurance company to find a nearby participating provider. Patient Education Materials: William Fracture A MESSAGE TO ALL PATIENTS REGARDING OPIOIDS PRESCRIPTION OPIOIDS: WHAT YOU NEED TO KNOW Prescription opioids can be used to help relieve qsyzgxno-gb-bavcdg pain and are often prescribed following a [...] following g (more content not included)... Normal [facility] ED Traumaon 10-18-2023 ED Trauma [id number] 40654 [id number]#1.00TIFF Normal [facility] XR Elbow 3+ Views Righton XR [...] in mGy = na DAP = na [facility] Pre-Arrival Noteon 3 Pre-Arrival Note Pre-Arrival Summary Name: , maritza Current Date: 10/17/2023 21:14:37 EST Gender: Male Date of : Age: 77 Pre-Arrival Type: EMS ETA: 10/17/2023 21:06:00 EST Primary Care Physician: Presenting Problem: T2-fall, elbow pain Pre-Arrival User: Nicholas Rosario RN Referring Source: Location: [place] Completion Date/Time: 10/17/2023 21:06:00 [facility] Emergency Department Pre-Hospital Report Form ____ Vital Signs: Pre-Hospital Report: slipped on kitchen floor falling to R elbow, swelling noted. denies hitting head or LOC. on xarelto. no other pain/complaints Treatment in Route: none Response to Treatment: Misc. Issues: [facility] Nursing Note - Woundon 08-12 Nursing Note - Wound 170.71.914.099.1345 091726 [id number]#1.00CD:1 27 [facility] Consent for Procedure/Surger yon 08-05-2023 Consent for Procedure/Surgery [id number]#1.00CD:1 27 [facility] Consent for Treatmenton Consent for Treatment [id number]#1.00CD:12 7 [facility] Physician Orderon 08-05-2023 Physician Order [id number] [id number]#1.00CD:1 27 [facility] Nursing Note - Woundon 07-31 Nursing Note - Wound 170.71.432.334.3779 903386 [id number]#1.00CD:1 27 [facility] Physician Orderon 07-31-2023 Physician Order [id number] [id number]#1.00CD:1 27 [facility] Consent for Treatmenton 07-02 Consent for Treatment [id number]#1.00CD:12 7 [facility] Multi-Wound Charton 07-29-20 Multi-Wound Chart 170.71.121.117.93152 95286 [id number]#1.00CD:1 27 [facility] Nursing Assessment - Woundon 07-29-2023 Nursing Assessment - Wound 170.71.121.117.8556363048 [id number]#1.00CD:1 27 [facility] Procedure - Woundon 07-29-20 Procedure - Wound 170.71.121.117.27802 57302 [id number]#1.00CD:1 27 [facility] Consent for Treatmenton 07-02 Consent for Treatment [id number]#1.00CD:12 7 [facility] Multi-Wound Charton 07-22-20 Multi-Wound Chart 170.71.121.117.87278 58089 [id number]#1.00CD:1 27 [facility] Nursing Assessment - Woundon 07-22-2023 Nursing Assessment - Wound [id number]#1.00CD:1 27 [facility] Nursing Note - Woundon 07-22 Nursing Note - Wound 170.71.852.220.3933 166889 [id number]#1.00CD:1 27 [facility] Physician Orderon 07-22-2023 Physician Order [id number] [id number]#1.00CD:1 27 [facility] Procedure - Woundon 07-22-20 Procedure - Wound 170.71.121.117.44088 59871 [id number]#1.00CD:1 [facility] Progress Note - Woundon 07-02 Progress Note - Wound [id number]#1.00CD:1 27 [facility] Consent for Treatmenton 07-01 Consent for Treatment [id number]#1.00CD:127 [facility] Physician Orderon 07-15-2023 Physician Order [id number]#1.00CD:1 27 [facility] Multi-Wound Charton 07-14-20 Multi-Wound Chart 170.71.121.117.27723 46078 [id number]#1.00CD:1 27 [facility] Nursing Assessment - Woundon 07-14-2023 Nursing Assessment - Wound 170.71.121.117.2656304413 [id number]#1.00CD:1 27 [facility] Nursing Note - Woundon 07-14 Nursing Note - Wound 170.71.108.178.6719 570849 [id number]#1.00CD:1 27 [facility] Consent for Procedure/Surger yon 07-08-2023 Consent for Procedure/Surgery [id number]#1.00CD:1 27 [facility] Consent for Procedure/Surgery [id number]#1.00CD:1 27 [facility] Consent for Treatmenton Consent for Treatment [id number]#1.00CD:12 7 [facility] Multi-Wound Charton 07-08-20 Multi-Wound Chart 170.71.121.117.36284 59653 [id number]#1.00CD:1 27 [facility] Nursing Assessment - Woundon 07-08-2023 Nursing Assessment - Wound [id number]#1.00CD:1 27 [facility] Nursing Note - Woundon 07-08 Nursing Note - Wound 170.71.917.965.3307 810874 [id number]#1.00CD:1 27 [facility] Physician Orderon 07-08-2023 Physician Order [id number] [id number]#1.00CD:1 27 [facility] Procedure - Woundon 07-08-20 Procedure - Wound 170.71.121.117.49759 34541 [id number]#1.00CD:1 27 [facility] Progress Note - Woundon Progress Note - Wound 170.71.121.117.8701837501 [id number]#1.00CD:1 27 [facility] Multi-Wound Charton 07-01-20 Multi-Wound Chart 170.71.121.117.31921 74094 [id number]#1.00CD:1 27 [facility] Nursing Note - Woundon 07-01 Nursing Note - Wound 170.71.909.578.1347 179274 [id number]#1.00CD:1 27 [facility] Consent for Treatmenton 06-02 Consent for Treatment [id number]#1.00CD:12 7 [facility] Insurance Correspondenceon 0 06-30-2023 Insurance Correspondence [id number]#1.00CD:1 27 [facility] Physician Orderon 06-30-2023 Physician Order [id number]#1.00CD:1 27 [facility] Procedure - Woundon 06-30-20 Procedure - Wound 170.71.121.117.62326 01092 [id number]#1.00CD:1 27 [facility] Consent for Treatmenton 06-01 Consent for Treatment 159.140.128.36.4014806872 [id number]#1.00CD:12 7 [facility] Multi-Wound Charton 06-24-20 Multi-Wound Chart 170.71.121.117.60418 82546 [id number]#1.00CD:1 27 [facility] Nursing Assessment - Woundon 06-24-2023 Nursing Assessment - Wound 170.71.121.117.5517461016 [id number]#1.00CD:1 27 [facility] Nursing Note - Woundon 06-24 Nursing Note - Wound 170.71.951.761.5997 756913 [id number]#1.00CD:1 27 [facility] Physician Orderon 06-24-2023 Physician Order [id number] [id number]#1.00CD:1 27 [facility] Procedure - Woundon 06-24-20 Procedure - Wound 170.71.121.117.33236 63080 [id number]#1.00CD:1 27 [facility] Progress Note - Woundon 06-01 Progress Note - Wound [id number] [id number]#1.00CD:1 27 [facility] Consent for Treatmenton 05-31 Consent for Treatment [id number]#1.00CD:12 7 [facility] Multi-Wound Charton 06-17-20 Multi-Wound Chart 170.71.121.117.15051 12868 [id number]#1.00CD:1 27 [facility] Nursing Assessment - Woundon 06-17-2023 Nursing Assessment - Wound 170.71.121.117.5961919388 [id number]#1.00CD:1 27 [facility] Nursing Note - Woundon 06-17 Nursing Note - Wound 170.71.165.479.9191 411426 [id number]#1.00CD:1 27 [facility] Physician Orderon 06-17-2023 Physician Order [id number] [id number]#1.00CD:1 27 [facility] Procedure - Woundon 06-17-20 Procedure - Wound 170.71.121.117.72843 82319 [id number]#1.00CD:1 27 [facility] Progress Note - Woundon 05-31 Progress Note - Wound 170.71.121.117.0843580023 [id number]#1.00CD:1 27 [facility] Consent for Procedure/Surger yon 06-11-2023 Consent for Procedure/Surgery [id number]#1.00CD:1 27 [facility] Correspondence - Woundon Correspondence - Wound 170.71.121.95.41019926771 [id number]#1.00CD:1 27 [facility] Nursing Note - Woundon 06-11 Nursing Note - Wound 170.71.957.225.0272 693323 [id number]#1.00CD:1 27 [facility] Physician Orderon 06-11-2023 Physician Order [id number] [id number]#1.00CD:1 27 [facility] Procedure - Woundon 06-11-20 Procedure - Wound 170.71.121.117.59202 69068 [id number]#1.00CD:1 27 [facility] Progress Note - Woundon 05-31 Progress Note - Wound 170.71.121.117.3136060715 [id number]#1.00CD:1 27 [facility] Consent for Treatmenton 05-31 Consent for Treatment 159.140.128.34.2517099700 [id number]#1.00CD:12 7 [facility] Multi-Wound Charton 06-10-20 Multi-Wound Chart 170.71.121.117.31877 01019 [id number]#1.00CD:1 27 [facility] Nursing Assessment - Woundon 06-10-2023 Nursing Assessment - Wound 170.71.121.117.0570002948 [id number]#1.00CD:1 27 [facility] Nursing Note - Woundon 06-09 Nursing Note - Wound 170.71.814.743.8252 522228 [id number]#1.00CD:1 27 [facility] Physician Orderon 06-09-2023 Physician Order [id number]#1.00CD:1 27 [facility] Procedure - Woundon 06-09-20 Procedure - Wound 170.71.121.117.10434 29259 [id number]#1.00CD:1 27 [facility] Progress Note - Woundon 05-31 Progress Note - Wound 170.71.121.117.7496000853 [id number]#1.00CD:1 27 [facility] Physician Orderon 06-06-2023 Physician Order [id number] [id number]#1.00CD:1 27 [facility] Procedure - Woundon 06-06-20 Procedure - Wound 170.71.121.117.79553 51606 [id number]#1.00CD:1 27 [facility] Multi-Wound Charton 06-05-20 Multi-Wound Chart 170.71.121.117.00693 15987 [id number]#1.00CD:1 27 [facility] Nursing Note - Woundon 06-05 Nursing Note - Wound 170.71.557.075.1039 695043 [id number]#1.00CD:1 27 [facility] Procedure - Woundon 05-28-20 Procedure - Wound 170.71.121.117.14086 37113 [id number]#1.00CD:12 7 [facility] Consent for Treatmenton 05-02 Consent for Treatment 159.140.128.36.9368050258 [id number]#1.00CD:12 7 [facility] Multi-Wound Charton 05-27-20 Multi-Wound Chart 170.71.121.117.86114 62247 [id number]#1.00CD:1 27 [facility] Nursing Note - Woundon 05-27 Nursing Note - Wound 170.71.572.076.0778 847446 [id number]#1.00CD:1 27 [facility] Physician Orderon 05-27-2023 Physician Order [id number] [id number] [id number]#1.00CD:1 27 [facility] Multi-Wound Charton 05-21-20 Multi-Wound Chart 170.71.121.117.71212 26918 [id number]#1.00CD:1 27 [facility] Nursing Note - Woundon 05-21 Nursing Note - Wound 170.71.567.280.7798 448355 [id number]#1.00CD:1 27 [facility] Physician Orderon 05-21-2023 Physician Order 170.71.121.117.72021 [id number] [id number]#1.00CD:1 27 [facility] Prescriptions/Work Noteson 0 05-21-2023 Prescriptions/Work Notes 149.45.122.14.40742249468 [id number]#1.00CD:1 27 [facility] Procedure - Woundon 05-21-20 Procedure - Wound 170.71.121.117.14484 37859 [id number]#1.00CD:1 27 [facility] Consent for Treatmenton 05-02 Consent for Treatment 159.140.128.36.3734003361 [id number]#1.00CD:12 7 [facility] Multi-Wound Charton 05-20-20 Multi-Wound Chart 170.71.121.117.97071 17635 [id number]#1.00CD:1 27 [facility] Nursing Assessment - Woundon 05-20-2023 Nursing Assessment - Wound 170.71.121.117.8162587842 [id number]#1.00CD:1 27 [facility] Consent for Treatmenton 05-01 Consent for Treatment 159.140.128.34.2939578212 [id number]#1.00CD:12 7 [facility] Consent for Procedure/Surger yon 05-06-2023 Consent for Procedure/Surgery 170.71.121.81.91081407438 [id number]#1.00CD:1 27 [facility] Consent for Treatmenton Consent for Treatment 159.140.128.34.3917550384 [id number]#1.00CD:12 7 [facility] Multi-Wound Charton 05-06-20 Multi-Wound Chart 170.71.121.117.10045 61394 [id number]#1.00CD:1 27 [facility] Nursing Assessment - Woundon 05-06-2023 Nursing Assessment - Wound 170.71.121.117.3945328518 [id number]#1.00CD:1 27 [facility] Nursing Note - Woundon 05-06 Nursing Note - Wound 170.71.902.008.0013 270305 [id number]#1.00CD:1 27 [facility] Physician Orderon 05-06-2023 Physician Order 170.71.121.117.00291 [id number] [id number]#1.00CD:1 27 [facility] Procedure - Woundon 05-06-20 Procedure - Wound 170.71.121.117.94960 98710 [id number]#1.00CD:1 27 [facility] Progress Note - Woundon -0 Progress Note - Wound 170.71.121.117.2150036507 [id number]#1.00CD:1 27 [facility] Correspondence - Woundon Correspondence - Wound 170.71.121.80.20366594741 [id number]#1.00CD:12 7 [facility] Consent for Treatmenton 04-01 Consent for Treatment 159.140.128.36.6955635011 [id number]#1.00CD:12 7 [facility] Multi-Wound Charton 04-22-20 Multi-Wound Chart 170.71.121.117.49278 06925 [id number]#1.00CD:1 27 [facility] Nursing Assessment - Woundon 04-22-2023 Nursing Assessment - Wound 170.71.121.117.4762335151 [id number]#1.00CD:1 27 [facility] Nursing Note - Woundon 04-22 Nursing Note - Wound 170.71.546.580.4274 546066 [id number]#1.00CD:1 27 [facility] Physician Orderon 04-22-2023 Physician Order [id number] [id number]#1.00CD:1 27 [facility] Procedure - Woundon 04-22-20 Procedure - Wound 170.71.121.117.10330 26445 [id number]#1.00CD:1 27 [facility] Progress Note - Woundon 04-01 Progress Note - Wound 170.71.121.117.3569670453 [id number]#1.00CD:1 27 [facility] Correspondence - Woundon Correspondence - Wound 149.45.122.13.14206625869 [id number]#1.00CD:12 7 [facility] Consent for Treatmenton 03-31 Consent for Treatment 159.140.128.34.9597313337 [id number]#1.00CD:12 7 [facility] Correspondence - Woundon Correspondence - Wound 170.71.121.88.02778168599 [id number]#1.00CD:1 27 [facility] Multi-Wound Charton 04-15-20 Multi-Wound Chart 170.71.121.117.25073 37899 [id number]#1.00CD:1 27 [facility] Nursing Assessment - Woundon 04-15-2023 Nursing Assessment - Wound 170.71.121.117.0411636164 [id number]#1.00CD:1 27 [facility] Nursing Note - Woundon 04-15 Nursing Note - Wound 170.71.428.132.2184 783054 [id number]#1.00CD:1 27 [facility] Physician Orderon 04-15-2023 Physician Order 170.71.121.117.99020 [id number] [id number]#1.00CD:1 27 [facility] Procedure - Woundon 04-15-20 Procedure - Wound 170.71.121.117.18924 28970 [id number]#1.00CD:1 27 [facility] Progress Note - Woundon 03-31 Progress Note - Wound 170.71.121.117.6784267191 [id number]#1.00CD:1 27 [facility] Progress Note - Wound 170.71.121.117.6043109948 [id number]#1.00CD:1 27 [facility] Correspondence - Woundon Correspondence - Wound 149.45.122.6.965160072933 [id number]#1.00CD:12 7 [facility] Consent for Procedure/Surger yon 04-08-2023 Consent for Procedure/Surgery 149.45.122.20.47217983816 [id number]#1.00CD:1 27 [facility] Consent for Treatmenton Consent for Treatment 159.140.128.36.3395403827 [id number]#1.00CD:12 7 [facility] Multi-Wound Charton 04-08-20 Multi-Wound Chart 170.71.121.117.53501 17729 [id number]#1.00CD:1 27 [facility] Nursing Assessment - Woundon 04-08-2023 Nursing Assessment - Wound 170.71.121.117.9170488402 [id number]#1.00CD:1 27 [facility] Nursing Note - Woundon 04-08 Nursing Note - Wound 170.71.589.337.8336 805311 [id number]#1.00CD:1 27 [facility] Physician Orderon 04-08-2023 Physician Order 170.71.121.117.91782 [id number] [id number]#1.00CD:1 27 [facility] Procedure - Woundon 04-08-20 Procedure - Wound 170.71.121.117.11422 18237 [id number]#1.00CD:1 27 [facility] Consent for Treatmenton Consent for Treatment 159.140.128.36.5185442637 [id number]#1.00CD:12 7 [facility] Multi-Wound Charton 04-02-20 Multi-Wound Chart 170.71.121.117.43635 78207 [id number]#1.00CD:1 27 [facility] Nursing Note - Woundon 04-02 Nursing Note - Wound 170.71.241.668.2586 618972 [id number]#2.00CD:1 27 [facility] Physician Orderon 04-02-2023 Physician Order [id number] 78440 [id number]#2.00CD:1 27 [facility] Procedure - Woundon 04-02-20 Procedure - Wound 170.71.121.117.57960 01961 [id number]#1.00CD:1 27 [facility] Nursing Assessment - Woundon 03-27-2023 Nursing Assessment - Wound 170.71.121.117.3152043551 [id number]#1.00CD:1 27 [facility] Nursing Note - Woundon 03-27 Nursing Note - Wound 170.71.405.955.8138 387772 [id number]#1.00CD:1 27 [facility] Coding Summary.on 03-26-2023 Coding Summary. CD:205436Kjhp11VQn1r Ww+PG hlYWQ+SV3CZCKlO95lgBMuyY8 uM7PTWXxHMmxhYLJTQGiVYrGp pkSzCE2zmTHbUDSo IC8+EO5dRYVmYddojAFah5G7c JG4K48cgx1eBHdtjNI0DXMpUk Qrxwuki1ilyMt3KKizLqzbEsE t WDYxjN25FVZ6hQ44Tu18oMZgo LKdg6qpyGq3YcCuVGFmGUG7rW epAFejo7FlMRMdL79qbEPws1V 6 ICGafFphvGFsNtUsrVS2zS7uH Iyhyowpt8owrfwoXxp9xa99rW Ntp1J8nGL6Y9DboiL4SNYjjDG g WxfqjNDWwT3diqjkq4vvpggjS tNxQZSkZMh4CTf8CRAnqDasZz GfPI99CNC3RHUtvzTuS6MdNVB s sIvnQpW0j1X4Eg9EU3GYOvilB 1VNTUFSWTwvdGQ+TG68hb71K9 OoSxhtWfg9SHBzOFY9uIU8jA8 n IMSyZHqaf2A3kZW1L7FkcjCht x7yh1kkJAIbLMjlJ75adHDzn7 S1BQGzjVN0WZPrbHtfQaIadL3 3 Oyc+AEBsvRhvo4OwAiiwa4rcf 6phdVf2JvfaIGYslqVefIjaTD V1e9ZsGz0uRJElcHV6gUQ9nH2 i WlWcHzM9OYhoC355XxDlnRXsX jlgZ26pI0QrlPS+IYAiLkb1YJ EmvThkQO1tT3VwMUWztcppoPD m bFnpBG4iMCUznyvgVAIlnT0vE JSlP9z1TpDhNbL3UUycK0OpDX XvwqtaZp44qG5qNmCiTtH4TOg u U8LtyzL5ENLncQGdOVuuQYE0R 85ao4E1ZPPoFAGjFLG9tPN7xC 1hbGlnbjogbGVmdDsgdmVydGl j HTqiWCooP950TYLdyCafSzWnO GluZyBEYXRlOiAgMDQvMjYvMj AyMzwvdGQ+SSRjSOC6dQfgITD n lZAtIHuyAr7keTjciUffKQ3bR MLvqipyRZPhnA2rERXlcCJkxC bfDY8gNGCodkfdt390IjAsEDA 0 GTYflZFnC1UmcF8rDjAaXECjN UXiT6WbbGVeWQdwD931ATfzNo M2LSRawwQdT2AwKSYngYryMwL 0 b0W4Td5Jk1EbiqmtJ8DbvNQlG mPpZvtcVQu0X5UvYiigiUA+PC 59UPMvDM66NOr6BQV4vTtpFKv i WHPyI7CllH4eYuExETTaQEYjG yc+PHRhYmxlIHdpZHRoPScxMD IpOxVscPnkZG9tYl5yTURmBWO v kHidnTUcKyRye6tpTAUsUVyiO L6gtMfwB4ObtEO6EUGza8o9Db 43W54qK1LvrMB+MFCcmOZ3jWR 0 kR9hHdTcMcZ1FCnbY660CkCzz HLeLvgwt0yld3lzwIz7HlT9DJ IvvrPmpUjjLKK3p5GmYj98U35 s IHdpZHRoPSIxNSUiIHZhbGlnb w0hnM9kAh3+MXXklVY9nCK3nZ 0iOhJiTmH0TIinH364OlZdgFW v Tjxzo7dsg0oxwGp2ZeQhDQUih nQrsHegFMK1g8EtCn53S7QqbW jkr0JcCfs7sk31zSEkq3B5yDY 9 W5VzZCAeuerttJJhgXnrPB4yS SRnhallPWQkdF1vNIBsZ7m8Gd LtZxV8LHlgH9DjjpP3QFYdiFI g CUVsqRCTcA7zwxxbh7wucrtaD rPtPOOeHBr1QTl0PCXgpBhpCu XiQUR0JdP8IFY5iSHfrT1rjWs n gpbbnE0xKfi+OWZ0eIAmuSIUG Z6cWzbaxNL+SMPoAZX3kOivRU elAYZhyY3fRSAbV6l3ZmVmBeG 1 UAgwC6IgrdO1SPHugLGlYTYoi NGRiX3ijuleg6oxqebwWpXwGT PhVQp9IZg3NIWrwZgdVlUbAPG 0 OhJ4KGF1sRJfcB1ydFhqnnrzw G9wOyc+WsnkmXviERJ8AGf2N6 JxDso5WLOpkFacTU7lrQFcQEp u Ry4itKqbdXbtSI7gXZNyeyhpn 151HqYaa6sbSDYzhVMmQQvxAL Y7H40bl7C9BCQdPNCgOJZ5gKT 4 lY4klQxzjpfqvHZisUctptPab LuwIWahJWvfC292IGKfkEhaKi MrRIs6W1JiJtt4ELMrlBliKY4 n bZUbDMztXu1csNebcNrhHK2bN FCcweatl838UzLcp8ooGTRjlK TwLQgyITM8X96wx2O4YFNvFTN w UED9fOC1iC7vtVtqvtklpBHbq RiyvxDkuVuuVHphPJwcN632WX PqiTurPpJhrTl9C5ZhTme7MOW z rMtkZT2njYYdOLlqYt8niBemx FjcKK9hHYFyycjxj262OzZxk1 rlPAXvuMXpJPwnZOB6F34oh8S 6 RTObTMJgFLQ3pDG4nE0keMctm jogbGVmdDsgdmVydGljYWwtYW ndE379HBTrfSkwVjDapIuyjaI g OQbdETp5U4WvGibeuEL+PC90Y DVfJN65lKRlgDDid2tcvLa2Lg WqQPCrNWS0yYscHMqsl2AzYAL t E31jrJHmt4U3HVTvxLzevGZxB tNqhJE0yP3yEKvrazqba8cbdv olDrdic0soua65xK28Y17tGEh p BXKkMGBzZKWwKAYfsLspfc3sq G9wIi8+SIIkpWA6sKD5kZ5rOD GlYkW3NAccK753AyAkwRCoMai j o8ouj6rilSo9WfE2NDUhflSho IgpOAV7g8SgRq92Q19xSDciFW UqZXImEXGxXUNciAnjef3eeP0 w Ii8+NCDoyDF7dXR3hP8rNpCiJ uI0CJmuV062YnXfzKKlRiiwS1 9jQ9BiwUZ+YLPvWma6XWZxoUd s JF4ahXDnPKhqHy5rTGH0IoNvR jBwHZyaZ4EuMRLycrfvtgboaL R7NWHkOBSdkO04Xz0jdHumGLA w wBCDqB0hvehrd7plqfzwZwVeD UXzSMl7RSx0INFfiXfsFwMmYJ P6XiC4VCA3iFIpgA9onPjcuel g wV8uR4CrRYPixhxqEy39rJ0rE jYyQeC9TXqlBzv+VEFOTkVSLC SLZ02OANZvLBacwIY+PHRkIHN 0 aRkhLXpaNLJpiJ8xAMJaC1p5V kRbNzK1OHvwJ9WrKBDazsitOn 82aK9uKtNdFkM9LUwvY0VyrbQ 6 VVIkzXXlHHfaJOA1I84lu7D6T USeZXPbOPX4sDM6uG2xvAyjkn ogbGVmdDsgdmVydGljYWwtYWx p I970RCDjlBwqZyWaXoY5TzZ4W Pc4P4MuNva6ESHyjIcjTJ5ifC SpFWjwFr4xzOaohNxdYU5aVVH p szkzSLBcnX1uJCFmaTEgxJvpI Z8zMCJpbovvb023CyKqQLE8YM RfySUwN0QltZ6wKvGxEEDnPKT w W4LncFKpZTjmJ594OAyiKuQ3V UItfvKmS4OsQNVwtYqjSyR3l3 C9Yh73AJELIAWzuopljES+PHR k NDT0zBmsRLgoAWAjwZ7mQAKtX 1i1KqBkWeH5FSasP5EjSLSavc gyHj92jD2bOlAwVjJ8FKhcW1E v wtM1FDPnsDUrOMdkNEU2B37vz 2I4SLCpZNEgEZR4zDY1tO9irR lnbjogbGVmdDsgdmVydGljYWw t GAfuW002WLZioBscHh8heQN5V 1FhZni9NMCfnMhvQP2dkJDvTY wbYd0ywQqdsKmjVE0cSLUjier w LLDraU6nQSUteCWreSkyVG4lL WJsprqzf830MyFuASU5UUAbjB SqD8VlpY7zXsFjTMWjRPJpI7F l xOUoITjmB899AGqdUjZ3AXQam bMyQ1CiIENruWabZcW1c8T8No 0ChDKkWBCtKU97QC43UU22X4Y y PjwvdGFibGU+PHRhYmxlIHdpZ NFyNDewVOKwLrHazSxaWD3hSu 5iUVJsYPUxxFtjqZAdZxTie5o s RXKlZGoiDS5odUzvM5BsuOI7L OHiw9g8Lp76X12lR3VlzXC+PG QowIP9kWI5cW9qVdQlKrV0CAp p X024OmArgOXyHwdec7fkb1cga Ox5AjVmRPVgimLqfDsiYUG4a1 KwKg97Z03nNNpbMEPfTMEhNDX i MVRikHbymm5fvT1uKy7+PGNvb GO1rDD3rU0jWhJrHnW9GSwwP7 03GrKwwMYdIezqZ13aB5TkvSV + LAVmYlk3BQIvuHapVG4pgKMkU JnfBr2iINB5CfUkAkPjDGxfZ6 IqQBHmgdujhyqitFR4JLWxAHI w xI74Ln0czFiiWf8xFQXlVKE6T IIvsVPeF5AmeK0pEbDfCXFtPM ZdC2YxuPLnLVvhF069QChfEmG 7 FURczkRcY3BwEWXecCnzHrO3j 7H5Tk7DpPuhqDNaHR0bBcWoRJ a6W9PoHso7OKAwxNbaRU4otIC k KEfeOj8sqZdzrDbsIE2kMPLzs ujpb377ChSdx9reDPVnoLGqKW tqXSO4N19fr4D0MFOjQTWjRIV 7 dKZ4hY8spWrnfgwkfSPpqVwrd yElqMoyXTjeWVjkU938MHKjwN eeJsISWzt2N7OmWmc8ZPXqzRr s JT9cpSRkUCcaCn6wjRjvhJodM R8rNBIfpbdsj322HhJhb8vnVJ BpaCDvTUtfNWG0Y29wx7M8HRC w MBKdAGG1jAI8vB0wpVhfjesvm GVmdDsgdmVydGljYWwtYWxpZ2 91MVRvbZfqVu2WFbk4A6TkXlx 0 BTPqpAfePB1beTDcJClzVq5lz PzlsWowOZ8cGPZfhzjjo511Ac Rva2cdBAWgwUHzCZsoXPO2U75 s x4V0NEQyWCRsGVD6yCT0wU7fh GlnbjogbGVmdDsgdmVydGljYW lqEFvnS049MUGgmQiwMeEsaXF y OjwvdGQ+HX84hr95K8WqBjyxT bn1GNBjQYR8qNH1jB4pWNMgYM edf1H5rCO2Q7XxwkNrra7jy9y s YXBzZTog (more content not included)... [facility] Consent for Treatmenton 03-02 Consent for Treatment [id number]#1.00CD:12 7 [facility] Multi-Wound Charton 03-25-20 Multi-Wound Chart [id number]#1.00CD:1 27 [facility] Physician Orderon 03-25-2023 Physician Order [id number]#1.00CD:1 27 [facility] Procedure - Woundon 03-25-20 Procedure - Wound [id number]#1.00CD:1 27 [facility] Progress Note - Woundon - Progress Note - Wound [id number]#1.00CD:1 27 [facility] Physician Orderon 03-19-2023 Physician Order [id number]#1.00CD:1 27 [facility] Procedure - Woundon 03-19-20 Procedure - Wound [id number]#1.00CD:1 27 [facility] Nursing Note - Woundon 03-18 Nursing Note - Wound [id number]#1.00CD:1 27 [facility] Consent for Treatmenton 03-01 Consent for Treatment [id number]#1.00CD:12 [facility] Multi-Wound Charton 03-17-20 Multi-Wound Chart [id number]#1.00CD:1 27 [facility] Physician Orderon 03-14-2023 Physician Order [id number]#1.00CD:1 27 [facility] Procedure - Woundon 03-14-20 Procedure - Wound [id number]#1.00CD:1 27 [facility] Coding Summary.on 03-13-2023 Coding Summary. CD:[id number] Ww+PG hlYWQ+ZL7UIEQaY36rcPAhvV8 tS3NSPBiFTtfyJKJGWFyCQfXr nbYmGY2qePDpBPEg IC8+VQ2hNBVxOvgemMVcr6F1h ZW8H95bgf2tTCquaAZ9MPDgYw Nzoedrd1hloBk9XUhyKzdoQmV t IMLzbH70LGW3dR84Oa22iPMqp AQen9fhgJf4HoTiOPXyJQE9aE ixSLrqw4CyQHNcF47egALbd0C 6 EOOstMwriYXeQqYrcGT2kV9bP Iscfhsdl2znumsuNba3bo92zO Qnz1V5bMN8A0TkurF0IBTyaKX g HzsikCAYwA8rlimtx4ayuacjY bZfFZBwSNs8MMz8RKOqwRiiIl HgTX34VHU4UKWjvlQyO2LaRGD s fHraHbC1z1G0Kx9YI7ROKfwzQ 1VNTUFSWTwvdGQ+UV97ca01N9 OsAaesQfj5ZNJnFQI5aML9eC9 n GNLiJYcig9B3vCH0J5UshdIlg x4jf5lhCYOoILubD48ysAVto0 Q9NKXisXS4RZNkqItrUdMudS3 3 Oyc+RILqtIacr7KeEalhw0znz 2hpgTh2LtoqDJZrpfQjsKalPE Q7u5FkVy2vATZlvUH5gFF0yW2 i KjHaUiL0HFunE586IgYvfDEyI fasC47jW8YnzKV+YKUdNzs6YS YstQhvPK7fO3RcMGKgdjokaNB m iVfbMD3lKAUnajnkLDFdvD9uD OXmO5f7EvAkIuE3PDekU4VaKF TefxguAo82qY2oUwAuIbE4KCi u Z0MymqV1YZCqhJHqLGgfMNV8D 35tj3R8JMYkKEGqVGD2dWI9eS 1hbGlnbjogbGVmdDsgdmVydGl j DOalKZzzU661OWBswAiwQmGcP GluZyBEYXRlOiAgMDQvMTMvMj AyMzwvdGQ+ZKAmEAX5wZwjVIH n wONhJQxnMb4xgDjewPucBM4qU RZxtxfoNGVpuD4jOYLmkJTocZ dhCU1cFUZtcluaz213SvQfFUZ 0 KDXbjDDgV7VzaL8dTuUxAINlL SEdW5KlfCDrKDgwY014SNwqWs Q9RDMctmKvY0BcAXQyoIzkZnL 0 v2J4Ui6Cp8QdmhikZ9MoqBJqP iRuUhcvBVj2E9GcAwzbxFP+PC 87EPVaIQ37XPh6MGV8iZcnQKe i KCZoJ4BkhQ7oUcOoYEHeFKDeS yc+PHRhYmxlIHdpZHRoPScxMD VcAzWowQycAY0hGb6oVXJtIMI v qUbyaCNiYrVqs3qvUTLjZSutT A2gbYzhO5QtyFC5UPNsy3t2Yh 91P07vN2UwyII+UKCitDD2vSL 0 kB4kHiHoMbK7LGueJ414TaVgu QYiKidic3lyg3qnmJx5SfP2UM OldpJaxLwrEKD8t0FvXs15R63 s IHdpZHRoPSIxNSUiIHZhbGlnb e5smC8rLy7+WCXbcBG6mIS3mI 2fGuDdObP5FGphG356MvKnfZR v Urceu2smw2kdnDw8XzUmFADzp yUvxWfxSGC6q1UkZc92Z8LmqY gqs5KySjg0ag13iTKle1D5nVK 9 K7DoBUJrgfckaXBcdVejCZ7zR AKcffocULWvvE4qYTZuT4w7Eo JzKqM4PVjpD7BcluK5ZYVspLR g AMWywOFBlH5cyycax4kwzkukE xKnAORbSHn3KWn3TEBqbDoaGz BrOPG8ChV7GUR8xQDonM0yyAj n gzybxY8kUzo+GZD7aWQqlTZZT M5uJcavaWI+JXNnKBN2mGfoLH ayTUIiwR4rLNTsQ5h0GdEoHsW 1 OWpwE4GqhiZ5KEFtmJFfKKFlx JXAgZ6fyvgdn6wwxknoPxQqXG SnIHb9HAc0XZTrtSreQzVtNFC 0 VuB0NDA0zMOtmX9euIggkgaeu G9wOyc+LxgvuTvbTEK7IJd5T4 VxQrg7QLXliQlrKE2tnYAaKWj u Jz6lcRorrCjvAJ7bIMAafmnhz 418JeWdl5elNDVsjMVwPAjpGO W0C77dq2T8UVZwEQOpUWD8iUO 4 vY9ngGgqntusgBQsqOuvelHyh IfbRJcgCMnjB471MJRpuUcvRe SoTWr4S9UnKpz9RLAngJnjON4 n dZFhWNbzHn2tcIdhpQvsER5pP VQysbwde077TdIuo8edQOTshN DcQMcsMUS5N97py2D0ZGRqARN w QAF1pWH6rC9ckUwjbmihzUHud EukfrRpsZpcOWraVKdpJ980DM GpuPaqOmDooQf8Y8DiKvl4YBB z jSjxGX8giWKzVLhyGb9jtHguk RgiPE7rGIWrhssac667SzGfb8 adETBkuQSyDMoiRKC5J19jq8V 6 EXIgZCJvQGI3rYV3eG2keRcgf jogbGVmdDsgdmVydGljYWwtYW fgV956ITYfaNndMnEuyWbxvuK g KVsdRDo0U3WhKxkjaCV+PC90Y CLnYU58vINirIGqs2xfxKl8Xo FdTCMbIVI9tSqqYRvjn8UmEWT t X13ocNVqk3Y8UINyzXzzzCArJ vAabCT4hN5nINnjxqcdi0pdfv omWgckp5nmpp54hA25Y04uWFs p VVWlXMPaMZNkCWCtaMfxfs8rv G9wIi8+NDLnyCZ9lKG1uF3gBD GrTkP7KAywG787YgHmqXKvTys j k4ztt0lpkMp1NuG1WEItswGxo ZybEMZ0d2TdJo52A63lFNefMB QeMCSsOADoHAKgqVgdcw8bdS4 w Ii8+ZADmnXE5vDE7bY0yZdWvE dM6WAutO546UeRudQAzRettJ3 6jD7IgbJK+IULvRoa9SZXutNy s AZ8szODaLRizCk1pWQO9SlFcT eDgMXtlQ6GhOEDtbgvfgscpyS Q3ECRyIPIwaC51Eb2qkFfyUSL w eNIRdI1vjbmno6pwsuhwOgJpO DDoZPh2FQy2HKSlkSkoFfTwMA K5NxG8HVF3eSEymV7peMmlakf g kE0fP7JtNXNfrkueXe18sG9jC qSlDgQ8KTekBlh+VEFOTkVSLC SGP19VMDHmAIqcgMY+PHRkIHN 0 rFatQTiqMSJleB7xTQWxQ4c0Q hRxPvS8EOwoV7LvFDNhmmocKn 04oR1aKaSpCsF2DRnhS4NtvqZ 6 ZZLlmEKnKFnlHYL5V82ja1W0A JSgLEGoZCO2pOA1cO9qfCkuld ogbGVmdDsgdmVydGljYWwtYWx p I409NVYlmComYkOnYsS1QwU3A Ar2Q0QzIrg3EWVrlSsiMS1ucH WsQGxxAz9yzXghnUdmJC3tAGY p vntvFYEodC9nJJHzvRSboXfcL O6eGEDjvffia052TeZkUXZ1ME MvbWAgJ6JkcH5tDkOkVZDkYBJ w K0EttUAmZTwhR034TXyqLgI9U WLqwbHpM7PgSXFghCysTaU8d0 H0Pn72NUWTMOScsxeewRL+PHR k YYK0sNoyLKvqFDNopN1cBKPqJ 3a4IuPvVhG0LHurB3DiEXRpcu adRk28nZ0xQtCsMbX9YQkqL7V v fsO8XTXghDYuFKnkTNZ4S82gm 0V2CAAsNXFyVRQ5rBW8bJ1nnK lnbjogbGVmdDsgdmVydGljYWw t UOilH385VFZecYpoQb7osJC4A 7DhYww0LKPmcZekID8ihKNaVO czFr8kbIbnxCnuPC5xYMHbclf w BZAcaJ2mQCAozKFeiXkvIZ0fI SXzfqeez259TkGpEMM9MLLdcF IeX0MbsR0oPoItTWDmEUAxI9G l wPZtWGynA593SXqlGuS5JUUjs eQgK5SlIUQjdFrgIxS0x6B7Kl 7IpWTbBXBpBF45SD99CK38Q6Y y PjwvdGFibGU+PHRhYmxlIHdpZ OMfGFkaZVXmZdPsiHilOL1sFp 0aHKXtDJFixPnitTImScZkp0u s GYQiXTlkNT3grXwhD8KbpQW8U LXph5t7Ws32K96nS9CfzND+PG TumPO2uHB9zE0lKvJeXqH9DZd p C255MuTqtWSwQbkru1cuc6uqb Ts1ZuYjXGXwhlVdxSdeZNR7c1 FfLu62B20qJFzfLDLbSMCoTGK i CXMcjMunyd8hxZ7qSj1+PGNvb YH5gNE2sI5pLiWrWuT3KVyyS6 21MmErtLCeDnalS69fW2HslGV + VCPlKdz9PONnaTulEZ5euWTsQ ZeuRm1yRTL6EcRxUaKvACkxT4 McAEShgbfktkqnfLG4OOQfSSU w cH97Mc8zqRfkHs2cNHOzAZO2Y BUonOXgX0LkmL6eFoSwZLGfNN TmJ9QfmTFdDJcgU760VVtpIvK 7 VLDrevPwA4TvCXTuqEfvCaT0q 6Q4Dz4DoIuiyATeLN0vFqJmSA z9U4LzKic1XOKeeCliUE0srFK k TWnxBt3fdHqdmDugYY5nBLBfy wpki203OwEqt2rhEPSjbNBrSD xeFYG3P37hm9C3RMNzDPBoXYV 7 aJY1bT7qvXiupsbxrMKobZfca zBnoSihLUygTCznW196RGMyhN agRoCMVdl3K6GaGsq6XZEjkJn s CT6aoYHtOVhxSf6yyAbdpKixS Q3cPQUlitnzi383HuBxq5clZC LvtDZdJEunRIS9A48ih2Q4VPG w XTBiJEK9wVK3aX6uiYzrscxnq GVmdDsgdmVydGljYWwtYWxpZ2 98VKCscOrlKg0SWhx9M7AvRxa 0 KLXpgZugPN6ygDRrSYxeCg9sa CyfmXicCI0aWTUgxcowj357Mb Mvj8jsKDRshCPsHFhbZZG2H74 s j6T8FBKyLHVwQDT0wZW5qZ0uo GlnbjogbGVmdDsgdmVydGljYW ydOLfeI633GNTckBgpLcLzpOJ y OjwvdGQ+TC07qh58P9QcVrxmT pe7RAPcIVB9zFZ7dC0zUGDlYH img1A0aKY2W3WpubRydx0mv1w s YXBzZTog (more content not included)... [facility] Multi-Wound Charton 03-13-20 Multi-Wound Chart [id number]#2.00CD:1 27 [facility] Nursing Note - Woundon 03-13 Nursing Note - Wound [id number]#1.00CD:1 27 [facility] Consent for Treatmenton 03-01 Consent for Treatment [id number]#1.00CD:12 7 [facility] Coding Summary.on 03-06-2023 Coding Summary. CD:[id number] Ww+PG hlYWQ+DG1CUQKuG22vhUUbeZ4 eU4VOZKjQHvjsSRBAKStCJpOq xvKrFA8aiILpRJJu IC8+ER5gZZSiZiksrBShz4W4d WH0Q09rrr0oYFsrhZY1OZLgLy Saofowo3gfzWc3AUhhWmtuNkH t GOUyjQ41JKP2aB14Zp95uDHqj XEho9uxeRa3FdJoWCJhZAJ0mF nuSVpjm6KgYGNbS50hkSXiv8T 6 QOLbgAmovNZvVhBiuPU3fC6jZ Nnayxeps2effzduCep4ec62hO Gsw2G3lGP5B8RrjrZ1BLQanRY g ChbxcYQJwR6swnhya3xrnjjoH jNrSYFuNMr8KSw1SLMeyIhrNt DdLJ35YBA7BMZjyoPpQ6ZbFSU s lXmaPfQ9e2T1Nf9ZP5USAvfvL 1VNTUFSWTwvdGQ+DK27lx28Y6 QkEhzqXlw5EDXpKVM1cWG9sI5 n DBViUIuxw6D2zTN4V3IxbpJnc b4wa3zaGAXaGAanT79evXHuv8 Y7VAYnoMP2JLTucSiuZjJqzY7 3 Oyc+VCUntYyzj3CcHsywk0ksy 0jiwLh9XhctWTAodnQzaVddQI P8d6LtNc2mIHCekWJ0gWR0uU3 i AbZnPfY5WStiM077KsYeoEJxF cbgO82oX7IkxQS+ZRBuOku6XM VyvLrlUB0fT7KdFTNmpgoziRC m uJrwJR1qHZQellubYKCxsR9gE XZiP7h7RcCiRdK4SVmgF1VnCN RizblkBa19vZ5xNtYyYiV1VRm u H1HckcU6LSKezZSoCEtcYNZ0Z 47ma8J6VQCcLUFcCFS5kGF9qG 1hbGlnbjogbGVmdDsgdmVydGl j KWkgPLurB840ZLAslCmyIuDxX GluZyBEYXRlOiAgMDQvMDYvMj AyMzwvdGQ+QOUfQFC3hZijMMS n fFRrSCxhTb4ogNwcqSfpJN5fO DMuormdJCDzaQ4fQAOqsXNxsO egGL5hDJThyymhd195XpZbICT 0 HAFtzDHoX8BtfX0xKmKfEUDrF NVnN9JheXLhDGdiN090BAomQq Z5XQMqhsHlL9RtIBWbeRseUsW 0 d4L5Qp8Oc1PcrmhfN2ZjiGKfX mEfSzmfEWq9S7ZdMuvdlCN+PC 80YCMcEN22KZe3VKJ9zLzsHOx i OIFqP1SgyW6yLqWyGTJiZYBgF yc+PHRhYmxlIHdpZHRoPScxMD RiFlQcuBwpDF5qQx0hJUWlRWZ v iLnccMSbFfMkm5tmMNQmALivV L7jwIsoI4WzkQI8KGBkq4c1Qd 73M28jD6LivVK+DOLwgIG3tCW 0 xL6fOsSjTjM2GNpgA682JmUas RIxMmqsz5fyg8sucXo7UbK9DC HtnmXefFgyZCM6b7IdHr64A96 s IHdpZHRoPSIxNSUiIHZhbGlnb p7mfA8dRz5+GKRiuED1rQM1iR 9wAxHrVvY9NEhhN229IbNgsZE v Xfwif5jqm5dywFa1FcVaUMKoe cDbyXjhSXI9g7YtRf92D5DkkQ dbs9GeWrx5kl54qMBvl2C1bNL 9 S8ZgMAOtdsvdpSTlmBfyZQ3eD RAmhzcfSJYfaY9xUYBnT4f6Kz QnDuI1LNbqD0SiueL0KRQxnBG g TNCcpKGQxF7ldqqxr0otveelT qKqBPGyMSd5LWm8GGGocXaqLs ZxMOS2XfL3HCN1rLDqvN3ctDd n rrmgkF1tPow+DOH7nWZftSEDI F7qKcdjnDX+PPPlWTM0wNxjQN djEHQimB1rBFAuT2a6MpRoTnX 1 KVivY8TrrgN0AXIcoKBoUWLfs CPPgE8lbbank4tikznyImZyJZ WbNLu3OBw0YWBbsHtfUvBnYSZ 0 WtO2WUK9tYDlbT7hyFkxtibig G9wOyc+EicphTveLIC2LCy5T4 VyTqj5IYTolRyrEP3riFThTVl u Ms9bsZdwkZdqQT3aFMOozybaw 952LhZfa7uqSQZufVYaZJjyQN D5W02yk4L4KTEeWOPiSJS0rNS 4 nI7tmIjmjxgzpVZpmEpuetMrk HogGHnvUIdjH767XZJdlEdvBi PbGFx7X7IhNon6QTIopXjqDC9 n rQAyUSwoQd3xvPdonBwoDG9xY FHbyldvd735FtRca3miFBPqxM PeUZlvINV1M16vl1T7JQLdLRX w VSC7iDO9iT5mfCiaostjwGOac EoetrMerFimWWdgHTgrD067NR RjnAesJlEohRj0M8VzHmt2HCN z dWeqDP3wjHFhCVxeZv2ftVsit EibGZ6fAUAazjhnm299YhDwu4 yvIBBsgKGrLZopLAZ0F17hr0X 6 YKTcBBJnXSQ1bEP0tF5piHjsf jogbGVmdDsgdmVydGljYWwtYW xkC244VFYxuWqrQgMdiIyablZ g ABqpYUx6N6MkMpimhLO+PC90Y DBuVN17tTEweQSna4mpaGm3Aq GbLGBhTGX6hXnoHJgww8LjSZN t W23phRYlx5S3NWWrzVtnbYVdS sNavFY7yG2xCSudpoxqc4qprd iyUqqiz3voxf44cC12T77bVVx p LKVxZLBzTPEgJZXvxSfmie8mx G9wIi8+GBIkoAM0rSD1cO8uXR HqWnE5RCzrL193ZePvmTDoTly j a1oig1wxaKj3OqR7NEHsfvMvh MszMWD0a7OrQh69V63pOGleHN EcBNHvIFJuQSQxaJhefs6nlA6 w Ii8+ZSOunZH3jNE8pR3wMwDkH tI0BQtsM054EoVjmATzXnfvK1 5bU5XchUG+LEDcSvy4YDQbeSz s DS6adHPzGQazEe1oMFC4ImAaC dZtDMozY2GjUGMofmrvgoayvY L9ZCEbWYSvrZ22Hu6opQrsZAN w xLVDpW3wmlkbc1islbwdHbMmU UOqANp6CKp7QPPjpLtdCcXvDT Y1YqJ2KQO6sZTepM2bzVstwct g wW5zG3FpWJAkildyUb44hR7xO vRjYuV6HBgtIkn+VEFOTkVSLC ROA47HCMMkJFfgaGS+PHRkIHN 0 lGfrYJsyHNNcwP2pZSWaG9n9D cWkUaT9IWkfK4DrOXWcnxnoDg 82tB2nNtDeNwH1XVnfV1SibvR 6 VROvoRDaCFouSRA8O85hn5H7U EUdZTNqDET5iRM1jS6siHrdzf ogbGVmdDsgdmVydGljYWwtYWx p L599OKEdwXnbRoYnSiC0VbG2P Zm8J2CaJrd6GLBjxTwnDN7irR PcYNfeNx8soWxxzSyaLE4eHKV p opmgPBKmiE4rCUQxuVPaqZdkD L3sQJSusqkem788ZsFvIXD9WA JsyJQsU0EhnB6wEeQhFWPpJFY w I4SaeQRfRGgeQ122ALxjBoR3V AKuinKdB6DoZTJjiPrdWcQ2d5 G2Co66MUOWYGEqqyxhoRG+PHR k EVG1iCoeBEkkAMJypS8iWEPjQ 4q1GrTdLeE1ANzpR7KmGLBgls otZa48bO3wEwPjRiC0ZTvwV7W v ngI3COEtyVTdURqmPOP4H74pf 8C8VJQiOLTiJYY2yUW2vM1pkG lnbjogbGVmdDsgdmVydGljYWw t LWncV283AJBpiYahFu2xjPR3V 7NmQdn0QITudFkhPB7myJZjDI vcQa6nwLhsjYbhTR9xKDTrfuq w XOFltX0qLQEwxFKmcTjgQX6aS PIugaunf613TgRuWGD7TJTtfH QjR8NeoJ2cYjJxLNMbNZIsN7U l lEIaDEhnE185ZXdtNcO8POTvm cYfD4XwGORmePfhHrG5w4M5Wk 6BaMHnMUUuMS12OR14AH64J1U y PjwvdGFibGU+PHRhYmxlIHdpZ RLrJVakFYVsCpKdrFxuAK7aAx 4mXJTrFRWujUmviKJuXpZkc4k s HIDfQZxnMY2heAfsY3YrfAZ1R GDyj0w6Hf90C15sE1EkkUX+PG SomML1eCB6aV3uWxAcQzY2EZt p Y505VeJjpWIqVlnux6xsb6gpy Hm7HrJgPRItdrZrhObeDXH9c1 TkZm43J59rERgyJEHrMZDxYOP i IMFogOovwd3qaD9mBx6+PGNvb AR8jIF3zE1xPmTfHdG5QSnsR6 97LuXbkLUeZfhoM73dS0WnbQK + GKPvTbv8HNMtzRqiGH7neZCcC ZrwPv3pFFV3InIoBnFhYMtyR2 CxRTXhmwmvtfxrkWO6VDDwUJL w oT37Wg0erIgiOm9fZOTfAPU0X GNnjKPhU2XzhT8bMyYkSSNyYT MaV9JosWLuOYcfG152RIumGtD 7 AHZtzlTqD7RiCGApuMxnNnV1g 2E7Mf9LvXpmoOQcNP5aJfVuTR w4V5VfTkp0BDWmyNtkZD9ddZR k MIqlRo8wnGstoPsfGI1fFNFxn biti652WoIuw3exFORivVIgCM thNFS2R99sn6U2BVMmJAHrOTV 7 gLG9gS1rwBbkgczwnIIqgNldm tQflJbtPMqgFIriL895DPWhaS dhSzCJVfj2J1XdVit5FPHwoAm s SU4trYScIQhvIe1hzHdqgYgkK M0oYOLdosbos044IyUos4zuKA HfwQLgQLchVFH2R89iy1Q7ZZU w WWCbNLU7qDZ3qB2mhPsvdchnc GVmdDsgdmVydGljYWwtYWxpZ2 19BFAgqCwuHj6DPbh6O4TbYdo 0 KHAwxZokJI8ckLMnOXgySk8hy ZerzNqvYQ7ePKRvztgno253Cz Xuk5qaBGSnbJCgICgsITH3N50 s l1Q6FFEaEPNjLAP2yAL1rX7mz GlnbjogbGVmdDsgdmVydGljYW ytWDkwC529PDOrcGfzGhZonVA y OjwvdGQ+GF00pb28R7AkOtgxB dg4KBTvGKM4lHH4hE6vOHTsWC omf7P9gVD2N3CverGzpj8pn2h s YXBzZTog (more content not included)... [facility] Assessment - [facility]oundon 03-06-2023 Nursing Assessment - Wound [id number]#1.00CD:1 27 [facility] Nursing Note - Woundon 03-06 Nursing Note - Wound [id number]#1.00CD:1 27 [facility] Consent for Procedure/Surger yon 03-04-2023 Consent for Procedure/Surgery [id number]#1.00CD:1 27 [facility] Consent for Treatmenton Consent for Treatment [id number]#1.00CD:12 7 [facility] Correspondence - Woundon Correspondence - Wound [id number]#1.00CD:1 27 [facility] Multi-Wound Charton 03-04-20 Multi-Wound Chart [id number]#1.00CD:1 27 [facility] Physician Orderon 03-04-2023 Physician Order [id number]#1.00CD:1 27 [facility] Procedure - Woundon 03-04-20 Procedure - Wound [id number]#1.00CD:1 27 [facility] Progress Note - Woundon Progress Note - Wound [id number]#1.00CD:1 27 [facility] Coding Summary.on 02-27-2023 Coding Summary. CD:[id number] Ww+PG hlYWQ+NC6NPQQqA62ooGWfjN7 dJ3KGOQhZFyptQEHKWYwEGgTm ngTfYK0prWJeTDHr IC8+GW3lKKDqUbcncQRoz9V6r ST8P44erz6kTRgghAL0QNJxTo Uczwqtu9vdhJy0VTyrCiilQcK t HIRuaH75WSL7dE72Kn57kTDeq VKjv9vdlHo9SjLyWLXbNAY1nY xqSKxbq2HjMLScM35iwHEtm1L 6 BQCbfPidoHRrGhPhxTU7uP1dY Xbtgpdnz4dtwfadFno2yq46yQ Vew4P1nTQ8G7ZptqA6JJJfcQJ g FskzaBDSjB4yvjjto2alsbtdQ mGlPZKnOQy9WNm8IJJsdCccOl FqXY21PYB2OINtjvHbP9TtTVG s gNkdVkP2z6L0Za2YX4PUKoebT 1VNTUFSWTwvdGQ+ER35ki59J2 VwBzqlJfi5KLBiCZE1yTE6wJ0 n UJIqADkeb6R3oII7S3KuxvNua b5kt5guXOMtXRhgV61kiXVkq0 T6STZzjIO2HKJqlFvfHpAgyS0 3 Oyc+AGEmnOphj5KzOoddg8wup 8dkcBh0KysvYMIhqmVjdGbnWX H4v3RsGp3nHZKcpCS9yGH5tN7 i YbUyMdS2TKbyP768BgPgyLOoI zjkT70nN4YoiTM+IQJaPxk3EK KgmJkyBY3aQ4MeHIMdsaghfQK m aIntFL0wNYLskuxeJROhkN4vD ESyI6o4VuElJnX2CXssA3RpCX KoqbtwJj29nX2mWqArBeA7EOz u J9WinkR5ZYXebQJeBOeoTBP4X 12ln0K0UNGvZLLjWNS3wDH5oW 1hbGlnbjogbGVmdDsgdmVydGl j ZYlaRXezZ134HPPpwQnzHkQcO GluZyBEYXRlOiAgMDMvMzAvMj AyMzwvdGQ+TRGxYGO4eFrhEPL n jYOzSTizXn7rzGuurMdyMK6hN PBzhuxjBQSuuS3jJGSnkEBrnN fwND8sMTXagbokc386FhZfKWS 0 YRAcvIIgV7FdwS0oDeEbPHAdS HGfF6EebRWdDEmdO952JXrgZa N5GPMuigVlZ5DnXHYyyXvrOsN 0 x8A7Qb8Sj0DctwsqG7YnoBKkW hUqKstbZSs3V5MkTlmusSD+PC 57EBFnSI75RJd5BBZ7mGdmYIq i QKNcT4GarG1uWlYfNOXpAOTcN yc+PHRhYmxlIHdpZHRoPScxMD MoAlEfgOzcJH9jZq1hBSQaZFP v mUerjIApUtOjy8ttVQXyKKznR Q6ggLxrP8PlgHK0ZWHik3e1Lp 35I30aH1FiuML+HGNhhZF3jGA 0 eP6yMdUoMcW8PFbsD334CvVxh VQmEdvgp4onq9xdoQf2LtE1IQ WhdhKdnRbbNZO7g4SbEq71K15 s IHdpZHRoPSIxNSUiIHZhbGlnb a5hhH2jXp5+EZRyaCS7mPG4aH 6dLtItDuJ0LAywW243NeTvkEI v Wseye6gkj9vclVm7HrBiAGTqw bIxdBxzPMY9h4DhFt82D8OhfK frw2DoSiz3hq62jWErw2O2mNE 9 H7QeTNTapraddTAmtUybDE9fR VYpedabOSPdfU1pXBIqD5x8It ZuFuV7DUpzL5TaasO0AFQahFB g ESOinETYrU4dqglqv8rqyaljO zBqWMBlAHs4LVs5UBFfxUjkUf DsFFH0PiL5DGD5yMSeeB4eqZf n anwjsJ6lYvs+RFP5lAGibLRZP T2bQsmieOQ+OUNdJDD4oEpkZD ipATKyyN6nDWQnO3p7NsDtHtN 1 LRwhR5YyxdQ3DDHtzNZlEOCfr UWBgN8akyqjh9hmcfwqMrVuHE OgNAb3CCu6YUGmlOgaPxRpOEZ 0 HgN6CWK4pZBbkE1tdNxkpgygu G9wOyc+FrkveDrsMEC6PHq3X7 JrKwm7URQloHseKI5vbADsHQt u Tr4laDzrfDflYR5eGTWlnuqvc 499NuIpb9caMGKmdJVmWSvvUM Y2G92hz6I2OIPdZMHvSVH9qGQ 4 yS1wmRppjbxniWLgoDqnrqNwk SutSMxlJRsxF037TEVoaHozNo QlWIr8G8FaVzi8LKAkyGhmJA2 n iAHwKBpcGh5fxMwxcUxlWO2nM KLtjaiqq544ZbVey3cxGQNhyX RqXJzlSBN2S25av6J8FWPkRPS w YVW0vKJ0uS2ndLegafnihMHme FxjwxFzcCjsFOkwWJulM994EA WwnQpsNwNhoJr8C0CxFnf9THZ z mKogHD9pmRUgCPqlYd9dsBohv VhdIK2zHGXcwwzbv842FsElv3 rgKQMhfTXsWDmaSOI0A64cf1A 6 CDDpTAWlCLH2tGH3vH3brBbkj jogbGVmdDsgdmVydGljYWwtYW erX532ASLykUuwCqYfzCmnxdP g QRrzYWs0K0OtCobbaAY+PC90Y FMsVU36eBQenWXji2rwhEy2Ul AmTMMoMTE0tKwoHGwtp2ZfUGZ t H77zfGUzj3L9QNVsjVnpqMVvA uFphVP9wT7cPCpayraps5jygy ilFyewi3msqb89kY34J87yGQo p ISMzIRGfRMMbOGUanVehtw7gl G9wIi8+ZPTpiJQ3hXS6iU1zJT BqTrA7IOduE675MmTttODvFui j p9boc3lynHx1WmA8CDArosGqn EcuMQC9j5SjLx40U09bWDjgVG HyTNHyNYSdUECoeLdpkj8zfO2 w Ii8+QYVouQY0wSA4xE3xVwJzH zS5DRjjM308GcUfgRHkTepeM2 6lA4AryRI+SFUuJrp6NFOhkFl s DD3roRXsSZvzNy9rMOI9YmHgV sXvWCwoQ7PdYKRmcfyncipnzQ B5BFHaEQPbaE61Ct3piYrrJGR w qVKBcD8rwqclx1dviyymDxAwC NQnUBk8JGe7RQKsfHjeThIqFV P3VyM6HWC4zAVvsI6qsIkjmim g iE7dZ4EkGSXpcflxAu49gK2wQ jDrArG8HOhtCqg+VEFOTkVSLC MVD93IYWAyZKhxsRO+PHRkIHN 0 cJhwUSqfKGAgoZ7zIZYhN1d3S dQgLxJ7AZyfD0WrGSAisippOs 53qB7aSqSuJeP2UCfpX2GzncY 6 GXKfdWBoXNnuBGL4L47lz1A5Z ZDwSVXyLPW5xUR0xV2puNvwzx ogbGVmdDsgdmVydGljYWwtYWx p X006QSOjxAmpKgFpBuR6FxZ3Q Ou6L3DzErh3UYLedWfyXQ9spX FuOAkwUq7eoHhmhMheSI9sCVD p nuwuPOQhrJ4bQCGunRPldOobY A5kUQCiybhyz223BpQtXYO3NM IqkNWrS3LzlQ4mWoKaUUFtTHW w P9PcwQBfPWkeV452MEgsXxS6A IRujnTtF4BnKIYnwQsjAnD0i3 E0Jg26HDKSTVIvmdealES+PHR k RCT4dCrlJQpsGSXvcI9kWOWsZ 6f5XhCdHhC5IAbxT4ZnSIVqdu rtHa32pY1kWkLlIyT5FKbwC2H v dnK8EDGhlPCdYBrvVNY5U54ps 3B7PPCrFODeLHK3bGA2gF2ysW lnbjogbGVmdDsgdmVydGljYWw t NIemL161OBFiqIwrUz1ksGC3A 2DaVwn0OBEgaNcnVA6nlMLvAB txZs0yhOmygDzgON9yGMMilat w OPRkyI7uLESqrOPszHziQD3dR FAzmulko110TbUzTOE2TEYekF KqV6VglF7xTyUhLDMiKHQhA5R l cVGfPVpwR761DDwmYkX0IXAgp zJgJ8RuHTGljPeaVjR6p1K4Hd 6IjLXaLCWvGD70CT07UG64P4P y PjwvdGFibGU+PHRhYmxlIHdpZ PHmDHrlSWWpSfCzpYwtYV2wFf 3tCQScQOUcaWgolLSmChZrx4k s DAVuIFfqKJ1cjJppH4VxkEL3U MFia7v2Ax20N49rK8AhbEW+PG OmrJR7zVT4dJ8eCzTlWrR0GPo p C033QsPpiDZxXxuyz5lxp0xat Sr8NwWkXFUkgqDtuGpmFBR6g8 FpXf76N36bNAmoQXByNMFkOMX i SHParNwcgg5mlJ8lWn0+PGNvb TJ6gPP7pG7tSpBwVvR6MVoeY3 96IpRpwTEeFwptD05xY9OrxCR + ZUOlHek8DZVxaRagQL4ouGMpJ YbsKy3kJTK0KhPxGcVjPDuyN5 ZeMBEcawnvpauzmOK8TWRbKHP w kT50Oi7daViyEg6tRGKoEOR2E YYvdXNwY3CxnV3pSaGyYDKsGL LbN8KekFJgFAawY638OWyaNcA 7 USElwfSlY9BcVAStjUchSvA5w 0R5Xr1RpOeuvYScXP3rWlZyHS s6P9JuOlv4APGycBovOE6flQQ k LMegJy4arGfckUvxAQ4bJZPna lhky446EeNfo6njHPOybAIoWV rgJMB2Z23bd1A9CVKiEAFjMBN 7 bDA7iB1ymAfwmiyezXSvbYivs hJuaWrdGHjcBKcwR559NCOmzD zoHzBEPyo5X8XlLlb6TSGonFr s FR3mnIFmGOvyOe6xpXscyMwtV K7wDBDegueqy638HyNbr4fjXR GqqLWzBVgeOSQ5S99pb0O4KBB w PKFuPDY5mBF3sD7wbDcmdmfzm GVmdDsgdmVydGljYWwtYWxpZ2 78QHBrsCklEp8SZge4Y6GqCee 0 JEKwfYfcRQ9bfKRjKQpqHv0sm CjpeThlIT1uILWdqfnsq386Bo Zbg7ecONNelJKtYMuoKGC9A32 s j8Q9GWRsJDQpMMD6nCR0nW9ax GlnbjogbGVmdDsgdmVydGljYW dwXNucU424XNWycNgmLqCsvYV y OjwvdGQ+LN60jv52S4OlSqwyL rg8OAJkVOO7wUL9oZ4sNPAwZF obk7Q9qUT9K0RabkIuzf4dk2h s YXBzZTog (more content not included)... [facility] Coding Summary. CD:[id number] Ww+PG hlYWQ+RP6TEOBgM26ybOZkmQ7 uF1SZDCwCRrluOPZNFViROwHt bgKmJB1oqLSpOQXd IC8+OW2uLCLeQrcghXIak9N3s IP7P45lad6mLQtgoMG8VUFuPx Yfgluwp0mfcOw4LXlbJhkxUvN t DQRvsY74QDO2lJ28Pu93uAWfm ZFws8fbyOc4IbNaLKTwSHN0yH ejBLamd7MzZJUaS23tvBSrz8B 6 DXQcvLxojYEtWrIvyRP0eE7tO Ruojxmdz4qceewtIah6rd17bB Eaz2Z6kQG7E7FokhA1MSMivYV g WceapTOMsA5puzbzc1kmsnibA nOrKWIiURd5VUm1DUPwiFbsQb DrNY16ARF9HARjbcSwE5FoANX s oUfnZvT7w6M4Kc9BN1SPCgtbM 1VNTUFSWTwvdGQ+VS64oh29T7 UnEpfjJjt9ATKcPBV1qAK2rH7 n ELWuRQbcy4M9vQF5A8XoexCcy y6zi7lyCINvDNtgY66usSBef9 Y0BWSoyCZ7HDJraHojFgJepG8 3 Oyc+CGAtwUbbr8YaVpmto4lvw 6rpaGs0LcucJSFanfEntUyfFP R1s9FpYd1kLHMolEW7lQC8jD3 i MdYvAhX3TYnuT661DhIqrXLzX dcoW30aK2CsjRX+YHScLvx0AV RinYlvYF6oC0XtTNIoyhzhoPV m pQxgFZ6sIMJrhsxlHOTuwP6tF MCiT4d4FkRsDhJ3AUytR4TnFZ JmbmrnAf61fT4gLxIzHiF8ZJd u L0DjjvP8VMBoeLFcBJpqCRY8Y 41tf5F2XGTdDNRfLUR8iYN0dR 1hbGlnbjogbGVmdDsgdmVydGl j TDnqYSraS859APBegCzpJwXaO GluZyBEYXRlOiAgMDMvMzAvMj AyMzwvdGQ+KNKbBXK1eEjbFSQ n eDFqZCvkIp5jrHzoxJfrFY2lK HRvfuumCGFpsZ5iKXUodRGwcS drOE9uHPTtzmcov523TnXwOZZ 0 VBIusQWiL3KdnB0pGwCxSNKpI OXnW9QzsZZlHUdmP306CXtwRp U6WJWikwDgH9IrRNKjkZnzBaG 0 k0I4Fq9Sk1LqddtsO9GikFUtH eTiCfilTZt2C2IrAdflnGQ+PC 52VEGtNA66HJc2PFQ7sYocEVe i LLOhU5RwyK8yKjKjALPeLFCtG yc+PHRhYmxlIHdpZHRoPScxMD BwRkMxgXyvWW1xXz2bPBDnXVZ v jWguoEMxKjLnr6jcVPQaWXvuG Y5hbYoeA9BkpYH1ASYnp0v5Ih 74G05pN2OqnNV+ZQYajDJ3aUJ 0 kP5hSfHsKyI8PSyoQ959FaJyf NKhSdhoq4uoj0ygkLk8OuH8JJ NiadGlvQhmCMZ5d4MnHa20Y24 s IHdpZHRoPSIxNSUiIHZhbGlnb f1ihU7zSa6+NHMebAZ9uNH2uL 3nTmXdOfJ3BKhjB737KkNfmEI v Tgkti8ypr2cdpEm8GdCmQLUry mTpqHeyZLR8g2OoYq97L1LzqB jfi7NnDla5ju54mOKpb9Q6cWA 9 Y3XwGKQjwztoaPPnfDhkKB1cF HYdtunhKFDcrW6oMUXqW4a4Kr MuRzY6VYonJ1OuubM6FXGvjNE g DLKszEPHcM6abhppx2jrqzgzW rJsZXOoGOr5HDg9QOYssGjbWe ZhTLE6EhZ1AEO6dSRjrH6xiCr n kmszlQ2sGhz+YIA7jKMmeTZFW B9wJbgahWQ+UEDiWNI9eHnhAH waBKCouT1tRSBdM7m5NdUfKhQ 1 MPorC3WrhyR8APBtzORuKQXqj TSPfS5hznoxy8wvnngvTyRuDJ NiIRc0MZa9TZHfaYxeIcFmWTM 0 DeV0VEQ2kRUvfP9qgPmjxxbhl G9wOyc+DqjboQxuHAS7JUs7E4 GrYux4KCJxhDegRE3ggFBkOCl u Rd0wjIvydLgqGB9yRGOcnciqh 175OmZaw7pdGFMupEQbMWmqQI H0B88im5Z0SKIwALGyWEJ9kHC 4 tP9nxUjzugnmaBSbpJdxdoCyd WozNYqhMWxmR702MSKqvYmuLc AcEGt6Y5FbUar1PDLkkMkeII9 n yNVwCIrkFu7ziWljdDhmVV0dI YXyfnbyp147NcTwy5waASXnzW XiDRcpDFA7Y51vo1G6YOCiZFX w KPZ7xXT7vP3vnBgntbuvdFEfj MvizkVzlZefECboDCgbL287WF TvoFveIpUxpQi9Z0SaRki5IDV z mLidKQ1bcOSrQCffTm1wdMchy QxaVW2bBOLstzgno193VxFjx9 veICKglFYkFFlmLKO8X65be6I 6 USYfKTGhUZP9aML9eN6msDomk jogbGVmdDsgdmVydGljYWwtYW fnZ262CQSqnPjtFxEosBfzxcA g KAbsXJb6D4FzCtzjtFN+PC90Y KJcJY38nUAcjMJpq2hrgCf6Qx HsZXHxPSJ1tIbtCHxmb1IlQBJ t P18gzTLrl6K6FDEzjWfmxKFnB yQbgBY5aY0fUWapjphwd1achl epPuhkf1famj88zX19A93vSQm p PQTtGVRzDTXrWZEwgUszqt0yt G9wIi8+UCZotLP4iVZ6jS7rXA DzWpK1NYglB931AhXmiUSkOih j k6kan0nkfEa0UoB5WEQvooTqx QiiFRR5n4EiWx77P41tETpzKE ZeRUMxVLCmCRFrqBhfvg6rfJ1 w Ii8+KDIkuHA5cYG2sY0pVlNuM hF5UQozX348AcOkoBIyGzplB0 3jB0SybQP+NRFrIqw8EFRnmGg s DZ8djEBxGHaiSz7qBYT4XnGhC cKjFGckI7UzVXZyrrkpnohnnW S0DGHcYLNivE23Lv1yeMpeWSN w zPXWjV0umradg3kfefyyJnFlH ITqTUj5AFc6NPRdvUkwNaXiKW J4CkR2PPF7mXJuwT3kcVzbckf g vA7lA4WcVIIrsfflRd16gU4pU vUkWkX3TRgxRoa+VEFOTkVSLC BCZ41ASYPiFSojcAG+PHRkIHN 0 cYeqNDsbKKYmkA0jWANtI9h2P jAcSfE2ZSyrY9RxMSJtpekcOq 52vN9bAmRdGgT7ZGjwT4FfzgH 6 WEKwpIJlOAeoSCJ1T69os2S1B PYsDMQpXKF9vQR5oR9byLmyxv ogbGVmdDsgdmVydGljYWwtYWx p O528RNXqaGlxJzZwEcD0PlN5C Gn5A0KcRut6XXDhcOpsVA6hpZ KyJMidPt2fmZeloGtnLU8dYBH p alwdSARcpW1aMFEdtXDutQxuO C1zEURlqyezr133QxIxUYR1VS QwvBFiG6JqsP8nCyAtWMMvHHN w W9WgeLSqFSwfD359NGuaJpU2Q GCzpzDrE1ZsVWKabDamScL8p5 T5Hx17WAEUQGTxhwowpAR+PHR k MSC2vKnkGWljFXGtiZ3yEQIpS 5l7DlDwHxB7XWcuZ4XqAKUriv kvNw54yT2dPqAuItP4VKkrB4O v znF0GOZvoRYtFYrvIHS7I53jn 5M0WTEwEWPnJCP1rHR6pZ0jnZ lnbjogbGVmdDsgdmVydGljYWw t PYfeK248EPIoaGpkJj6vwDV3Q 4JzRcd2NKLhyZgnXC6dvJWaDK ewBo6bgAexjAiyEF1cNOCsjsq w ONYzxG2cUKMpsYBxiYkqXC9eT EUbqllrd389BpGuEKI7SYXodL WvK6MqcE2kNkFuNMDrYCSfG1A l dEVzGQurM509TAyiTwG6PQPak wDrM6PcOYJqgWrpKvO5m8A0Ml 4IqJCvYFWzGW95AE49PH42Q3Q y PjwvdGFibGU+PHRhYmxlIHdpZ INmQVamLHYfExMtkEnaUC9tJx 3gWBDpNKTxzPyvsMVaWfWsu9a s IZNtNMkvOX4zxJlpU8LldHD2P FIyk1w0Qq09B14aK9MqxDW+PG CqwRB5sXS4uI7aKnOwLyE7SAf p T206NyCpiMBgHlyhp5eza2nks Tr8RiVjOFOmptFccFkmHRJ5x8 TnMs23R06oGMhkKAKhNQBlBMI i BFYunKqwax9voX8iYj0+PGNvb AN5yWC5mY1dJcEvDqP3AXodH8 63GnVneTDyCyrhK56dT1YnbVO + VXOlQdb8OYNtxEasOA8sxCPpL ZbtFy9tTTN7IaZtAtByDYfkH7 EyAMQwchtexprkpAH8LBWwFHY w rN30Cd6snRrmSy3bVDKwBZC7B YSmwTCwT9MgtH8lXtWxPXTmGI BsL7NftHNfOBinS834DAlyVdC 7 LJQalwKvS0YsPINpzUbvQgA0h 6R8Ok2WtJrqmMYkHJ9kNrTlRM m4H1UkKpx9FKDecGcoEP2qiKD k FSepIh1jdPezgWzjOJ8hNXUks rrvg996ZxIlo3vvEWLpkMCrLI upLKB1R32dr9Y8VTJaXIVzMHB 7 uSV3rT4mvUsqvlqeqSYppVeic uQreIjeBSraCMlaZ770MGHmfD ebVjYZAaq5Q3FvJlo7TZDicSh s WV2tzWNyNEvkRo5fgJoavZpdB Q5oTZEzbifdv354FnPan3jmUA DafRKkFCooHWW2V44qx0K3ZBV w FTQcIHK6nNS7xW3dpEbxngomt GVmdDsgdmVydGljYWwtYWxpZ2 29GEAvzJwjUz0XGki7D5SrIgd 0 LEOfjNdkQV5efUUuWSrrNs9ky AyfySagVS1hZHFobvoos228Ul Onl7qfLOPoiLHlRNnhQCM1G47 s d6H1HEMiYVDtJVJ8zZR9fC3hb GlnbjogbGVmdDsgdmVydGljYW tsSNyzA776VJUruTwkZgMxkTT y OjwvdGQ+BK85ky28I0YiNmuuX pf6VXCpKHT6cMN0zY6sDPYgVF sst7M6pIW7H2AjgnWjiw2dp2x s YXBzZTog (more content not included)... Normal [facility] US venous duplex [place] [address] Ultrasound Report Signed Patient: Yousif Aguilar MR#: [id number] 875 : 1945 Acct:[id number] Age/Sex: 77 / M ADM Date: 02/27/23 Loc: Room: Type: [facility] Attending Dr: Perlita Reno YARDER-C Ordering Provider: Perlita Reno APRN Date of Service: 02/27/23 US/US venous duplex LE BI: VV's with ulcers Copies to: Perlita Reon APRN BILATERAL LOWER EXTREMITY VENOUS DUPLEX INDICATION: [...] Lonnie Vasquez MD02/27/2023 4:25 PM Dictation Location: [place] [address] Tech: Maureen Denis Transcribed By: TONE 02/27/231624 Dictated By: Lonnie Vasquez MD 02/27/231623 Signed By: 02/27/231624 [facility] Coding Summary.on 02-26-2023 Coding Summary. CD:[id number] Ww+PG hlYWQ+XK1KAPEqX73xyJGyvU6 pB4TKQRnCTckqWJAETJyYMtUd meIqSK7nqFLdIGJi IC8+FR7pDWDdIfaneAZlm2I3a DT0D92bdt0rTRwilJD1QWFhMo Tkcvras0lmyVv0IQqrQwhhTzY t ELNcqB95UXK3fW19Uz31vDRky CXjs7svpQx4GfThTQJhRBU9pG lzPKrif4MuMZLoY31msIRxl8I 6 UYMqmLeqlZKmJqDudJY6sL8jI Sbqllpft6jtlduaPsz2by45kU Xrz6Y7cQJ7V3JcxpF5IVNyqTG g LuyshUTKuO0jmyltv6zzucfcZ xJbHWHlAPi7BDk0LADljYpxXn EjPO60BTB2VYBslzCzM0NoRHB s tYsvWwG5g4M2Pi1CZ8DGVgugR 1VNTUFSWTwvdGQ+GL68og02V7 LmHtckBbl3ZKDlFWA2zZK7nM1 n VPCsRQffn6K7nKE4H2ZgcxKoq m7fk6sjESXeTCorU93hmRFpf8 H4LNOrmQM0EQJnxUvwDrDedW1 3 Oyc+ARYyvRniz1ZwJovky0bfz 5rprYl0BxepHFRzmdUvcBihHZ K4n4RzUb7tRPGdbMZ3aJK6hT9 i ZzMxUhC3LSlqO582XlDepOFuM ygxE23wW9KduBM+RACiXye6VA XziUwsHZ3mB7EnXXWanxgpuVA m xJtcIM5nFNMjqrfoVIPwkR3hK CNpP2n2JiBhSeI9ROudU6NqXJ WgexwbVx19qO6wQzNpBvU3KGo u Y3BolgL7SWOrxJZqEYbqGQO3I 14ql4N5CDHnJZIrFCP4vJV6qE 1hbGlnbjogbGVmdDsgdmVydGl j FEnsFSooG529DJYmjHmjAeUwL GluZyBEYXRlOiAgMDMvMjkvMj AyMzwvdGQ+VNVtVAK2bGguOSW n fBZdDFgfXx3coJkvcValCP4wC LLykuuzNFMhrM7zGFZqzIEdoM dhZD7rQTOuuonip229SzBzUCT 0 BXKlaFLzG8NssE0aGvLaQVUwC JTmD3XqbORnYWjvN258JZuuBk F9HDAdwgSiC4CmPZUggBjdRfE 0 z6C3Va9Sk5NfkzwyA1NxsPNtK pOuTibyEHg7R8ElSouyhCH+PC 76BXBjQT94NJj2IAC2hNndMCs i EBZkY7FpaJ2vRfBaHXLaUVGbA yc+PHRhYmxlIHdpZHRoPScxMD SdXoOzwAobEF9vFh0oHVKtLXD v xHpbaBCcYhPln9nsTAPsJLfiD G9vkRtiA8WsvQL9HLCle0t8Nc 97K99oO6NuxVX+QTKsgZA2xVL 0 jP8oIbRtAhJ8OOwiO763DdCve ETfAnxqp4mcl8nziKu8MiA2YL ObfqCwiFpgZIN6x5YnGd35Y02 s IHdpZHRoPSIxNSUiIHZhbGlnb a6vtN3vOy9+JJNpuKH3xBU8lQ 5fXfMtNoL1VWgcA659UxQyqEH v Lrdmf8yzm0nanSd7RlVgOSJge hWydLzoRRP8b2YgYk11U8LsaJ lzs0EfIks0vb05jQKbq3A3fVM 9 W8TjIYJiokedaCZjfXtwOV3rS TEkubytAILogM6nBLZqD7v0Ku NxHzO3JBuqS2EmmhR2EEQlaQK g DKNquDLRgS8xglkmx9xleqedQ jZmEFSkBXq5CGh3AGZsiCcbIu VcDIS7GbK5OJX8vHHibG1snXf n wwuxjH7pNpv+BSV6xPEcbVIDC S5jPrksmPW+YNXeTER4zFtmAN bnXSVihT2yHFGkZ9i8MrMcWaE 1 YCjgU0SltyZ9ZYTzaZZvFCOjf GKOiP2vozktu4snrfeuAlZnSX DhAFs9MSo5UBYtjDbwJdDvEAT 0 YpI7VMR2yZNjsM9lfDahajofv G9wOyc+QrnreHnaXPI9NRy4M9 SkGsu1DGWhcMngQJ9dpNPkDMy u Lb4wxEphwEylLR6jFPEcbvwjn 690VkWjx7zoHRRveMPrZTyxHF E5N07ck1X6THNiKIRjKYA4cMV 4 vS8roShnaxoleXAelHpvrcFcl KmyAHjrCPcqN132BRCpjDbkRn HrGYv3P7InJbd2EVDmmSmpKV7 n zIGmHGgeEu2dzMacnLfiFJ0uC QFnyluhf060FtPyy5yqGVQasS XrKNfpUCH3E57kx3V9QSNeXTY w CLO4qQQ4rF8ebQwzkgosmNJkz SoyivHikLxfPHfpEJxtD007LF GcfHuqQhQoiGh9U9IdPko4DVM z zClaWW9euKReWThhKf0kjQhhw ZwzVY9vVTXoebyvb365TgWxh0 awNUDhsHCyVXxtQWT9M87mp6H 6 LBQzIYIvOIR1dAC1sZ2qcRsik jogbGVmdDsgdmVydGljYWwtYW lrE098HLCklNqkRcFywTsnvuY g QAknRZc7Z9HqSoswpDE+PC90Y LGiUK40iTIkyWVvs2ynyMg6Lj DsXOWxIMA8kUkdDEuxs5PyTOK t S52voMNpg8U6RKFpfGqdwICoN jJguDE1sR5kVCnwsdbfm5bkuw exMhfkj6xtns09wD52V15nMZo p HMSrCRAyMVXwYJYaiJgwaz0oi G9wIi8+SHQreMZ0lSV5iO5nEX IcQiA7DYiyQ704RqYvfGIhSxv j m3xqd9uioOm6YhQ7ZPHfriEce YgxFCE3x6EzGt97S50pBRmbSF YcGUFsCGTfFHKceCnrwm4hmH4 w Ii8+BHCmcFX0hXY4iX0hSzHpL wO2HRrdN915CtIfpUAoQorwN7 5cM9NnpKF+VHLfWch4DJGsyKs s HS9vuZOkMMzeHc9fZKX5YpCcK dJmRPnvP5OrWTBzjpeaecoaqP X5RVPmGMGaiT10Ti0oaEgmWHH w tOTWuL3tjejci1qyypsgMiQpQ WUgHYv5ULx5RLLiuQfgKkLpMG T1RsB4GJL0oOMzfK6atUmymim g cS9tS8TuINUrlqneEh30xJ0eX rOpUdY4MKitAyi+VEFOTkVSLC VHW98QIGScVOrpsEG+PHRkIHN 0 wVvkVHgcXFZvbT4wMHPcH4d5L yCuIfO4QWpnR1TiTHNfcmdyCy 37eJ3nCwQkMnY5TFvfI6QtpaF 6 LGGriKEyQCbaMMZ4Y61np5X6A CBmGELtIMF7yRF8zD4bzPxrri ogbGVmdDsgdmVydGljYWwtYWx p V978DZUijUhdGbOnWvC2KxY8B Nf2I1MsIxc0KAGngJwsGV0prW TgUJmvNe1zeZslxUbjOE7uBQM p wdxyJZRwxM8yEKRzvQVieZdeK K8yDKZfxbffr246ZvRlLWG8GC QgvAOtO8DnxX9iGsIiAUBzIWU w Z1HulSEpTKgiV678MAdrElS1G TVyruCpF0EuEBYgqVlbSjV5t7 E9Gz09TBDFNIFupofxiFX+PHR k ZCK9tBlrAXzbRULyxC3wKXTtI 6r1LnOyMdQ2UVdlC6KfBBKljm mlUq64qW0nUuAmOeX5HWywO9M v tzO9JFAjlGEaYKhmMZP7A11qb 1C2UEJfOWDtQDS2iYN2pH9ifA lnbjogbGVmdDsgdmVydGljYWw t JHicH021QZJlmKraNw6zkLY7B 1EhMqa9TDEoyOntWA5jdTWbKM uqKx8qnFuhrUamPB9jVHRenhl w ENTfwJ6sMGHaoRUheDcoFQ2aA CVfwsrmw402VxMiBUG4QXNeyG OxI7CnoW9vHmTqTZTgUEJsC9O l cLFtUKlzV346YCfuSmZ7BLExr cAuX7TiRUHkhVvtLyG5r3O1Uy 1LvKPuCBHjBJ99WZ25SU74W9J y PjwvdGFibGU+PHRhYmxlIHdpZ VOoVGmfTKNqGjWgfEunPU2jWs 4lGWSzIGKsrKvudTIrJpXkp3g s SCWiQUrvEW0wfLweG9TqkRL2X GRkl6c6Eb11F93iJ3ZfpJA+PG UsdQG0zPR4qN4eYmImSzC5GEl p F586ToYgaWWjHhmhg8ptg7taa Vk8SmQzDYGezbJkvIntOSR6a6 DcQn73E65qOAbmGPOmYDXnEMQ i WCPsoXdmwp6ggE8xZu8+PGNvb TU3dBA6uA1jTwKiJuC0LBonP1 65NyYecCCzSrxcO00wQ0JifLK + MGKoJow1SGFojTnjXD8qmSMyZ KztAd3sBLF8JaXuFuUxBSivS7 IlPHDfgghxdbqucTO5YWMkRFD w hV10Vr7fvIsaBq8qTDBvBPI8X WZudPRbM1JlcT3kOyYiPUHeQI TcH7QacBXoFSwrK621WPiwDgP 7 HVVljeWiR1MhUXBhpMcrFsC5o 6M4Fd5KlVssbTOhDV1oCiBsFY k1Z1EdEuu9WQDpmRxnHO8vtOW k BWsyVd1utTsprGvcXP8aUJNdd uvmc234NmPvz6aiYAKhxAMoXG lzEEH4Z10fd8P9LBNoTCBnQCZ 7 xNR4gH6xyUpxrjgtnFPgwFlnx mXomMsjUIruHCqfC574TCJoeG uaDyKVBxl5C8MfHcn4LQCabKi s XD0cuDRrISgiEn7hyIncrYmyG O4hQBKjolzym007KtMxr7jtKF NrhRRzQOtzWIW5W43jf2X3YJK w OSPtRUN5xHD2sE7roSxiqykpl GVmdDsgdmVydGljYWwtYWxpZ2 78HCTweItwOi8SQxw9H1ZxOzk 0 WDVczUyqOC7ksVPiDTjdKb8xr GuyaMayIU1kJTPtsimsi345Ae Tws1acLDAxsNNtPMfiYJP7V61 s j6A5UPNxRGJyEIL6lHW7zB6yk GlnbjogbGVmdDsgdmVydGljYW phVKptG624YJFcdAvtIvWutRC y OjwvdGQ+FR47zw46A0GyTfqtY md5NAMeUQY2qVF8zB8hXSLuOU tkf1Y6kTW2M2JosbNwmh6se9j s YXBzZTog (more content not included)... Normal [facility] Multi-Wound Charton 02-27-20 23 Multi-Wound Chart [id number]#1.00CD:1 27 [facility] Nursing Note - Woundon 02-26 Nursing Note - Wound [id number] [id number]#1.00CD:1 27 [facility] Physician Orderon 02-26-2023 Physician Order [id number]#1.00CD:1 27 [facility] Procedure - Woundon 02-27-20 Procedure - Wound [id number]#1.00CD:1 27 [facility] Consent for Treatmenton 01-30 Consent for Treatment [id number]#1.00CD:12 7 [facility] Correspondence - Woundon Correspondence - Wound [id number]#1.00CD:1 27 [facility] Consent for Treatmenton 01-30 Consent for Treatment [id number]#1.00CD:12 7 [facility] Multi-Wound Charton 02-19-20 Multi-Wound Chart [id number]#1.00CD:1 27 [facility] Nursing Assessment - Woundon 02-18-2023 Nursing Assessment - Wound [id number]#1.00CD:1 27 [facility] Nursing Note - Woundon 02-18 Nursing Note - Wound [id number]#1.00CD:12 7 [facility] Physician Orderon 02-18-2023 Physician Order [id number]#1.00CD:12 7 [facility] Procedure - Woundon 02-19-20 Procedure - Wound [id number]#1.00CD:12 7 [facility] Progress Note - Woundon - Progress Note - Wound [id number]#1.00CD:12 7 [facility] Coding Summary.on 02-17-2023 Coding Summary. CD:[id number]:[id number] Gh0bW w+PGhlYWQ+PA5DAOKcG31mhXL dkO9vO0RDTIaOXtlsALYFTAmS LbYgjbKxHE7krUTtLDFf IC8+ZR9dQGGrPeyvkSVzi7C4w LW9A00wgk1fDDbimMM7WZMmLb Vsgnuvi7mkeKl3WXxjYhbvPpQ t BBMlbH63QUC0yU18Xm10mVHzq PSos9edxSf1DwEuGXNuMUB2yV arIQhku1OgILJkN55byDFwj1P 6 LQFclAzvvXIwPoQbbWU0jO7cN Ccxlceig9nlhocwNor5lm05xR Ely4A4oGZ7V0KefhU2DNRvoFF g HeplvCRJjA9mnhoga9ynffgnF oUhAYJsQBt1OTv3IAYtyHrmSi AhJC13EQY1SGVzotOcP1TdYJX s mWxhHsW1c7U3Dc2EG4GPMcgsH 1VNTUFSWTwvdGQ+XJ00ia48Y6 LeYhvvNpd3TOHqGCJ4tOB6aT2 n XZDxDMxbb0P1wBI5I2KutbZel h3kv9bqYYLoBEulJ88rpCDly6 M9ZLQkfDI8KVXhrHcrYtFwlA3 3 Oyc+WQXgxBnzi3FkFeiua7onb 1khyHg7VxwaRZDldxGjlOlyGG W0b8LkGd7pVKBqeOQ8iDQ5vZ4 i IhWjFmT3TDtnD520NvJtiAFiQ bwoA63wA3LjuHH+MSQpNow9YC RtxXplGZ1tT0RyTREhaommdJW m aQlwVN4gJKTgcttzKXEjlQ9mO RZoH6s8BeAnEbW5TFklQ2EsDQ UpcwblAh81eO8kSjOgEdB1RCz u R5ObebU7AVDopNOrSDfrHMJ5D 28jc7J5KKNfKJDwRRS1xHF9fN 1hbGlnbjogbGVmdDsgdmVydGl j PNwaRQlbK816HBZxpSuvLcLqL GluZyBEYXRlOiAgMDMvMjAvMj AyMzwvdGQ+XFVdVII4eOqaJYE n bBMxLUthPx3kdWgsmGfbNB1yF WJoykqwKRWloI8bYBNsdAGovH caPH6nUVQnfgmvr676QmTnJXP 0 FQDjkVLpX8NkfC7xUlLpUXHsT KChH8OraFEgOLwwA083DYuwMb Z9GNRcvmTsG1HqRKSvmDgwWsM 0 x7X8Bs3Um0PloyvhB4VcyJZgU zGyRjkfFHp6N1VzIanxzHZ+PC 29DAXuPM59RKu8LKT1yKkqVFk i ISDfR4LrjB0yXjFcXVIqLVCzO yc+PHRhYmxlIHdpZHRoPScxMD ZzCyMaiDfsBG9sBh6vBLVxIVR v hGfcpUTyXgFwg8udYYPzIRafJ J9hcBxwX3KseHB3UOXui1d4Kc 75C06xH8MojXI+EFUxnGA7rLK 0 bN3rShHhNjH0IHvjA402WoZck QSbFjuwd3twd4phjRd1LaG8PA KextUlaErdPHR6l8MtTe19J08 s IHdpZHRoPSIxNSUiIHZhbGlnb y6asX7oHt8+ELNtqNI3jET2oR 3bLwFfIbQ6VCeeX298DtDwqZT v Sqcdz8bkx8dtyPc4AuEfZVIga eIdhVxyAFS7j9ErVi06U3HndG kbv4DqNvg6fv09eQOqy6F1kDT 9 H1CuHPRjrcsshIWutJbgHI0iT FNskzxmJGIwgH6nEQQnE4x2Ux YmDlK3IFqeP7ArpvF2DKTpfQG g QYVktROEaT8jymfah2tioonvL lKfQWKdIXb3CXc1RLQcrLeyYs BbZKO5PyE0LYY5fTRinS3ltYc n wegfhM2qUnh+LMQ3aLMyvAMCK K6nRevniUE+TXOjZYT6uTugZZ zgBWRjcO8cJKIfF3a4CnHqQoL 1 GKeaL5ThikP8GENrwPOnETKdm VJNpV4bkelxq8ovirstKpGvPQ CtUHf1TRz6YYEssAbmUnRkYMJ 0 FaV4YTE9aJJadH2lsPtiriwoo G9wOyc+QtxyfYdnLRO3QLy7Y4 PjMfo1SREtoJzzRF5ggCOrNOp u Dt8adZhhoGzsZS0lTKXpdshqm 443ElZxi7dgCCHmzWYxZBahXI S3Z94gc5K4DAGkCVJnGSN6lSY 4 aK7oxVcbuvzpkBSfyNmfttIam NlrDRhcAJqbK841FIMdpCrrIh ZrUQs0N5HgOhe0ZPDhmYnmVO3 n hJKuVZrdZr1xkKnphKdmXL2yV YNbympgl696IdFhb1qxMVUwbR YdJMomYGI2X21dy1V0ZQLaVBQ w MAE7qZV7wN5ijFyaehsnaIIpc FifslMvuYfqAWfkWJnnZ479FB TfbMsvBcGkgUd6E1QcYth4EQP z kCqlEJ6akRKeNYbsLe0zyDsos RpdCS2bHMTrtiwcs864KfFza1 puGMNekRXbYVxtDJJ0M08ow6C 6 OJHiUFAxRDM6yAS4kG4ekJiba jogbGVmdDsgdmVydGljYWwtYW tgU757IFLuxXjwEnAnzZhonyJ g IKekARv6B2XlPcedzTC+PC90Y LSeUE05uNYgmQEgi8ejvIk4Fp XlEXOrAIQ2wIelSZmve0WyYEN t P81jdGCat1T1OXJnoBufxHTaG tDicTN4tC8zJZcclebnh6gsgg xcNzxei5objp52vU82G88xABj p ZUEkXEBiVBUqANQwkOntac5ip G9wIi8+WRPblWC6cWB0fU2wUF VcTiZ7CNsaS403OjGopIPoSzv j g5hsp6conDz9NjX2NTFsgxChu RgxJQR2j6ZfWd39I80dQZfhFU JhWCHoGLAcSLXbwEsfyy3hyH3 w Ii8+VVXelQT5tWZ4aQ8eOtGgX dC7TPxwG844MgFkzMMsAdegF2 5nV3VhhQZ+RFWiIru5LJSotTh s XX6ffRAnJUxcYc7wXTL2GnTuD kJuMIkyB9CbJPRclygepavisP R7WJRtZDAukU56Bn7loAtdBYG w cVYZeU8ystyzh6oizevtCqVlG PZgNQr9AAk8WGJirXdgMzVpUF C3AxL1KOV2nMFtxF2ccDhxrbp g yG1xD0MdEZTjcxqcIh01vF2iH pTyMxJ5GSunIgo+VEFOTkVSLC HCJ92UVPYgANrcsXY+PHRkIHN 0 vZdsRIhwSIOjdC3mPOZjB4h4M wUeSeI9UQyqD4CzCHTuqbtdIa 20zL0aEjNyQrJ7QPplR2LnjuG 6 RUFymYGiXMyeQGT0S94wj3M0C GMbSORiGPC2qER5sL1cwYixoc ogbGVmdDsgdmVydGljYWwtYWx p W608CCSgsUfpBvDwNlA8GwX6X Ca5D5NqIvv5OKZonYmuEO8qqT GzZKydWb9ylOrreCdeVA8xUTY p bljbPWYxeO7bNLExnXBjsWqtT Z3kGVVcstljx893EfVyJFN3JH XrhMKkH5VpdJ6lAyYgOVOjQMH w G3OxeFJhEHadU556QXyiLbB7D QEbahHeK2LaOHMinKigDzH7d2 M7Dy36ISQBQDOhwxeeiWM+PHR k FNI5cShwCXcaVDLwuM9vVUKjE 7v4CgSzQpU7KTgoS6SzSGDhmk mkDu71uF2vNvTuIuW7FNgmC2Z v aiX0CEGnqQHiIPjmSTL7Y62yx 0W4KOYlOLDqCBT8rOA6iY6udS lnbjogbGVmdDsgdmVydGljYWw t VSqjW242ZTUglJeoSg6meEO8C 0CfCnc3QYYhuHhcSY0siJCsAH asRq0deHwzgPmwZW8mHLUkskb w BMLldF0pFLXprWTrqWrfFW5nL UKdlqzge001VdNrFUU1MHUmjK GpP4CluG7lOpPoKASnSJYuV0H l kTKzRRxeJ690RQlnBqN2RQEzk oSaA8QpMURrbCazCbG8o4O6Ev 8VzMKvILCyHR33WK46KC87V6A y PjwvdGFibGU+PHRhYmxlIHdpZ IYhPIcmXWQvNkNtpGqrDV5pLn 6zEUJaLQVlzBoynWEkHxKvh3i s RCEzPWidTA7fqQkxL2AfsBX4D BGwk3m9Da78O94tO0JevDM+PG ZijXZ2kMH2hJ7gJgAdUaH0ZWy p J314TdZgxEGkHwmjh2ntw1djc Kw8InKoBZKhjpXscRzyUDX3g9 CvOs95V11jHLyyVXHkAHMcHUU i NHPhlFrgth0otG3kJs1+PGNvb TJ2tZV0gC6eJlMoBlP2XFmwG7 39AeFjaABuOzhnG18tG8BovAQ + GXXvAim3HIZsaSeuXV7kxTCoH AzkEk4xRYQ4KeEzHpBjEWjiE6 VnAHBxztogegllpQL7IUJaAPZ w mO24Vf5cgZxxDv5aADXpONK8J XJgbFNkR1NduM1wYdZiTJRpDV BoV9SszNImENsvM632TUhgViA 7 YUGodqNjA8LwYNKnwBxmEtY4y 6N1Ow6MiEjlxPZtKU0yOxIlFF k2U7BmRdg8EHLtvBwqWX6gaZB k QKcxPr9qnJzlcBblXG4gPBOxw bksp457FkIzu6gcOKCoxGOsIA wdBFC6S13xr0D1XIZrADBySKX 7 wAN2wP9glLrvxpsfvBPewOxsb kGliWuyERunXWndO400XHIsbO quDjXBZgd0N6WxVnf5JZFapUd s ML2gwWTjFSicVz4soFvdtZsnT A1kINWjlawgu994ZoSsq5zcYE NebCOfKKgfNLC1V09xr3J3KLF w YBTjIJP0vRN5lU9lqLmljfrxi GVmdDsgdmVydGljYWwtYWxpZ2 88OZAnsDepHo6JJtg5W5IyAum 0 AUXurXrwTG9stGCfIUeeRe9mq RffoEenUO1xEHTtpniij132Go Xtx2ytUUIudGNtXSxjCPY1Z17 s c7B4LQOoXQWpZVL8hSE1tS9ex GlnbjogbGVmdDsgdmVydGljYW iiQTuhV671YWCdcOeaElEvrHO y OjwvdGQ+RL26zf27K0QkFimuL ik9AFXiJXP9pLR3fZ5oOFAuYS ell0N0uGT7Z2PmvjAtvg2jd4f s YXBz (more content not included)... [facility] Consent for Treatmenton 01-29 Consent for Treatment [id number]#1.00CD:12 7 [facility] Multi-Wound Charton 02-12-20 Multi-Wound Chart [id number]#1.00CD:1 27 [facility] Nursing Assessment - Woundon 02-11-2023 Nursing Assessment - Wound [id number]#1.00CD:1 27 [facility] Nursing Note - Woundon 02-11 Nursing Note - Wound [id number]#1.00CD:1 27 [facility] Physician Orderon 02-11-2023 Physician Order [id number]#1.00CD:1 27 [facility] Procedure - Woundon 02-12-20 Procedure - Wound [id number]#1.00CD:1 27 [facility] Progress Note - Woundon 01-29 Progress Note - Wound [id number]#1.00CD:1 27 [facility] Coding Summary.on 02-10-2023 Coding Summary. CD:[id number] Gh0bW w+PGhlYWQ+TB3JVTHsP92slIB jsM0uG6LKMRrNKpofHDQOQAfI IzOotqRxNQ5gwJHdEXPn IC8+KC0zECSqUjejdODjt5X1z KK1M09ttk0qJNvvtZG0BJDwBj Xljleqm1aunHn0VLbwOlqxRfL t GQJwrN06MVM9mY54Ub11zVQto ZFhr1sygYh5TnAnKLDbFCP2zZ bdZBxdp8OcZGKhA34pdSLdy4P 6 FFTdlWkfpVJkUjEjxIY7mS6gP Lkypauxb5ejihcjPog9se20nE Awq3Z6sJZ1R8QhzuE3SUYwgFH g DtqzqORCxB0axfthr4mladvmI iGmVRGgCNz7SZp5SWVsfIuuBn CtXZ27BNK1XYJgkhTzE0EiHVS s jQugCrN4k4Y5Rv2AT8XHZoubS 1VNTUFSWTwvdGQ+RQ64bi19Q4 BzYximDps5QCQqVAL4kXM6bP0 n VJNeNFqfm7J2cHH5T8AkigYii n7eq8xlICFlCEmbN02quJIke4 K7NTEgeOL2ONIcfSbkDtJjdC0 3 Oyc+YUKguQujg6ZoLqxrq9uuk 3kjsFl5JmonDKFjyrItoKyzSQ R8v3JyIe3tZWBygQU1mEC7aK1 i DoJgDiX1ZSllT425QfFkkXQqW admN21vW7AfpMI+LLElHlv4OE AtgDnaJS2cW8OwCCRdrmhaoWU m tTkwQL0cYQMzbdprSBAekZ4mQ VMqK6r7PgFiUgO5XIvcR3HdWZ GajmlpBa26tE0wSnSlJrW3AZu u S7GngnQ7TLEpjZYdAIzkKOX7N 95nj9O7RBEyREBkABS5qDP1kK 1hbGlnbjogbGVmdDsgdmVydGl j ZXjfMJnmQ503JEJaaDrxMoOcN GluZyBEYXRlOiAgMDMvMTMvMj AyMzwvdGQ+TKFbLBL2uLtvZNE n sBLhLNheMh8qkCaiyPggMP1jW SSwizfyCWIkpW9bYTCceTWwjB xxLM4oUKVvbocvv838InQhLGP 0 HSFaoCSaB3StuQ4qGjRgMETaX YPxP1UceUPrUNjiP820UKugBm K3ETZolpMrJ3MyTMLyaYrsUoA 0 r4Q8Nt0Sy8ElsmeuQ8UezPAnG jPfXgezFRg2A5LjOqmipJD+PC 63ZQCjUZ82MKi6CQP2zUlgBKg i NEDoP0GzeK2vVqRvFCNlQOYmQ yc+PHRhYmxlIHdpZHRoPScxMD OlBpWqsOsfEO2fFn1gFVEdOBJ v mPmdaDCxVlAdn1nsUCJkJJnwZ P2fhJzzH7AprMR5MFDwh8f6Es 82D45hH8KybQO+CWMchZB4fHX 0 cQ5bNmOxArU0LFqhF191JuUpc QOqWoxow1jnz9lntDo9HoB2YS SjcdMpuBnzKOF0p6UzQl31A67 s IHdpZHRoPSIxNSUiIHZhbGlnb f6wsH8zVw7+ZCYvqEP7sYA4tC 9jGoBxDeA7DBsiM784DyYuaPF v Dmikj8xiz4ffdJe8NyCkNJIuo vOkyIuaKTJ3p3FeMd24J3DnjW pqa7HbIkp2pa83yRVkj6S9xHT 9 X7GcWIMowtywuTWnsGwzGV9iZ TGjlewcRCJrrQ8cCFOeV6h4Dl DmJuB4RJcuS1YvppG3MCLjvGD g RZJbqXFNgX8mivjia0ojesvaU lWvVGDgJVe2TTk1ATTvtYacHs XyWZO2UwU6MWJ8bYByxH6zmFy n okwhrB7lLan+FDS6rMFbqHYXR I9nDfhhsHV+RGZmIDC2tGnzAI jySTWsyU7rLGSqM9u3SiKwNgA 1 PNtmU3DfxjS2ZELspJWnZPVzk EXElX4ndzkfc1vqjxluFcQdTD HoNHk4HBk7UUYugZlaHuPdSLB 0 ExT6DJB1eZIccC9yfIxcupyfa G9wOyc+MyswiFmxBZU0BLt3M2 BsDqu0JRHtcCpbHF5gyYDoSMt u Wp7mlMccvFxlZM0bCJGfnectm 451EqOeb7eiOIIabXFgSPgkKL U1V87vz6K9YMCkXNYyEHJ6mEP 4 cP0meDzhqhngzCMgaWcbgeJte WbdJMmeDOpvA816WMYvrIlaBx QrHBb7B7NwYbd1JOAbvKoeIL8 n yZYkVGtiPe2pyYhofQfyXB8yW XVeuaeiy377ApDrz1aeTLUbkG HmVVodSNE7R24qe9V8ZDUnIBB w LNW5iJS6jK4xeDjcsdarnQUax IzgltDbySzqWBrgOOpkY814YY FfpLuhCwHigQc3J6IjPiv9IVQ z yGfxLQ2fbSOyTWrnOn8ejZkdc FgeHW4bBNWfalddw224SaGig3 ktHHCanIEsIZmxPZJ7S87rb8R 6 PELaQKEaOVL9gQW9hI8lvPzof jogbGVmdDsgdmVydGljYWwtYW liB096VWKmpAzoHgCliYfeocP g DQyhJHo6J4TyZpkfqIJ+PC90Y LCyBP04lLWhiGOck5pdvDz8Aa MbEBCtZQH9sOahZSjhj0NaOLB t U87unMPrq2X5UQQdvIgxqKNnR gKqsTG9pC4hQCzpbvnay3lhqi tbOeywx3oqqp50eL84K76dFMv p FTHcXOAwAAHoUKVnnHfhev3nj G9wIi8+FJQgiES8qSA0wY1wPF EyCqN0RSwbP661PzKpoFPxFzv j b0kwi9qbvRq6JmA2JUAqlbEgx WfhAKK4y1EeRs43J20wEPzqPE ZiNFCbOZIjLKYnvMmhgf9czQ2 w Ii8+YLLnhXW9zBC7dS3iCzTgZ hX8GOdnT678NuFzzLLgZtdnM4 2pG8JgnAF+GIXxIex4BXFxtCu s KM8whVSmHUvxYq2nCXV3OcLrU uBlIFfcO2XgWRMmkcmvuirrdN U6BHQzXTZjyB81Vv9gvGdzZVR w wJESsC0vwabbo1ujzjfvIbGeF LJxTMi4SZt5VZOgtVorRkItOG J1EbA1RGW1nLHlsQ4pbRgydct g xI7pC7WcMSEgoqorKo24gM7tZ jNpCmQ9LNogJfu+VEFOTkVSLC PAH01EBVIsLNeunVU+PHRkIHN 0 nAngJInaIQUvzH3bBOOtS9b3E wBgZeS7HUulR7DdWKHdczezAy 97eY9tYaRgFoI3GNxdX8CljdE 6 GUTqmTWjYIvwPNW4B24nw2L3M FUcGLFrVMX8rZR4oI8yaKfads ogbGVmdDsgdmVydGljYWwtYWx p A205FGTsnHfnYnXyRrT4UwY2S Zm8U5KfMdj3SWVioZxiEG7heT KeAVigRt4ddSyyoTawVR8qESR p xuvpDGTuuN8qNJUhrGWoeSrdN M5pBIMujfwhd028DtLjPSU2GV GfjMEpZ5CjfC3oPwPyKZHpTUK w L4HkaKOvXOcgL703UZjrImY0C JLbqwJkP3FvLADdjDkjGjC9t9 N3Vk72NJKUTSRyjjewqSR+PHR k WER6wMewHUzvHJYkpJ1yVDOuJ 1b4GxAoBoI6RZpzG4GmMFVrpg mpKg08lT4aKkLzLrM6GYijK9M v hcD9BIIvcZKkCHmfNRR7Y17yb 6D8DKOnZOLpQYY7yCW8sG4krG lnbjogbGVmdDsgdmVydGljYWw t QNdbT794THUcgLzgBz4duAR0S 1VpMsf7SOBvmFkqEU5swBOhSC tpGx2vdSajsWdxCE3zFXZnisi w PTNqpC8dVOFpxLVieCwkXJ5jQ ESdwvhkt638MrRsENL9ZUXfxP PaO0FtjO8bTxCxOTQpCZXyF0Q l qRTpZWvaE386JHsnJbI0NVAgx yUeM1SaTWMunIumTjA0k2K9Yt 6NfPBcROCeZM15BS03US08F7Q y PjwvdGFibGU+PHRhYmxlIHdpZ SIzJLoyJJLsOdPllNukGU0lCb 2xTFXnGBTogLqjaJQhViThp2b s LUJzTWhiLA6mrSfqA1YtiSW3C RMdf9m3Tc29Y03sW8KkuII+PG DuaAE8nKL4uR8vTuYdPlL4YAc p P169CxMjqGBxKjqqf3eqe5smw Bt6XbKkQQCmmvMmoOaxGNP9o2 TsEg06F11oYGkjXVLzXUYzLPP i LLQnzBapxq8pwV1eUi7+PGNvb KU8gVP1bQ5iUfBnMpN4LBfoI9 71RfIhpSGqXalvO87qC9UzdCK + PUFrYgo1JWOumJozJA7jkTLmV IxnLm5hWDC7PmFjGlDyNVmxX9 GaMHUksvyakywxpGO7WYCbUYO w mH00Oi6ujVyyKa8nRPDuRYU9Y MBbjJBnA1PxfV4rXkZnXXZeJM HsZ9KunEMlTBvmU012CLdvQoW 7 KRPcacCqS5XvEBScrWroQtL2p 5X4Jf5QwZxdaEFgIF6wXwRxFE d3B6DtIin1KNHpvRbvCR8kvPE k BIzuNp8wkLeubUrhZE8gPCDmw wjeu772XzXob9trMGFniWCfIL bpEUR6Q19ac1T7JJAtCLQlSAI 7 bBN4rC7ghGjpbdwdqHVijDelh jXxlMtqNZolZTmeX540NPIijB zeLyBRMfn7E6RnPne9UWFpeAy s HC3dxNJbWCynQi0gxUklxFtnM I9lECMnpzvql520DhEco3yfVX DjqMJwLOkyLSQ2U65cw5D0HHI w LPCzOAG7oWZ9fW3wvRuiptxrw GVmdDsgdmVydGljYWwtYWxpZ2 49SLWckTchEb4NSpe8F3SyUbd 0 YYDniTraFS6jhEFsGPtfNi9lv MlnbUofRX8oYHDvyhgja687Dk Zyg5rnGHMmaIOtAMeoZOW4N26 s h3X3FLKmHXSzFXS4lVN7iQ8rk GlnbjogbGVmdDsgdmVydGljYW tsSJfcT980SUCedOxhBiLvhHI y OjwvdGQ+ER82lw17N0AaDsojO xk5QTIrUNP1rEB8yF3kPFPpTN srt3A8rVW3J2FgomSest8pj0x s YXBz (more content not included)... [facility] Procedure - Woundon 02-07-20 Procedure - Wound [id number]#2.00CD:1 27 [facility] Consent for Procedure/Surger yon 02-05-2023 Consent for Procedure/Surgery [id number]#1.00CD:12 7 [facility] Nursing Assessment - Woundon 02-05-2023 Nursing Assessment - Wound [id number]#1.00CD:12 7 [facility] Nursing Note - Woundon 02-05 Nursing Note - Wound [id number]#1.00CD:12 7 [facility] Progress Note - Woundon Progress Note - Wound [id number]#2.00CD:1 27 [facility] Coding Summary.on 02-04-2023 Coding Summary. CD:[id number]:[id number] Gh0bW w+PGhlYWQ+QG0HKBJeZ19xtIS sfF6ME1aIMJ6AHUVTBKHNLI1Y BI9dvTA2QKxgX3OxvxXe HbhvkDSxTR42DDw5GJK5yPnfA RhbqB2ctDKdV7e5EsAtJI06jB 44RYujHWEpZjD1ZtVlrxeveCS y Q7byOxQrvAUhWtr+PHRhYmxlI HdpZHRoPScxMDAlJyBzdHlsZT 1iVr5pGGOlQLEufZkciEYyMxW j o9aeTPKaRFajNL0zmUxqB2Ggd LE8WZFeq6x9Do47xXY+PHRkIH N6yQtnTQrqi302IuPin1wcRTA 3 qXDlQDqmVKP7H90hx9D8CVGlO HOcOKG1iBT9qR9naKhulihiS7 DwmQXcScS1PJQ1eRZrkT4egEy n kiffsN3oKzo+P67CGJ6AOGFHN E6SHbf6H4RwEnexuXQ+PC90YW SvZP58kGHseCAht6mesXg3NrS w DHZhHTX8yKmuPYnpd5HhHATgC 95cgRPqy3J4EZNvvNgcdJMdEm OufIU8mC2oNWhamapyq4rreug n Mqymk7znko76pI10P20zHZyqZ GKlLTP8ECBlTCPthYitxo8bdR 9wIi8+NNanv5cci9snwYu6UhT w JOBjggKjmLiaVTB0x9PeDb93B 6HqrEqee1FfKfd0xa14oNJpz0 C9jVJ9BFjpLAHanX9vNMmlFyY 6 TOYfPgBlgE75lWUyMXyzKx4mz DstkRsnHB6pHBVzrabfSINmkP 2mNFJxsYIgzYxvDT8fIHCqign m a789NkMzBEJ6QDPdlZVcT1Fij Q4cAwSrJZMzCZPpU0CgkYWiQN kgH499HNapEvZ1HEIvzhArH9E s SMKbzAwoYtQ2z3V1Vw8Wc8Ypi nqtVZI1EDtzLQTbJyN0CdLxDv O1N6IgLdt8NOZbcBcvFC4jE4T h XGHcjiixvqtotDU7WSYzTTRlb U45qNVyAPuvOw9jz4N0c366XZ WgTIXqmO32Rf8lvGgaZNOiiRV U dB2sdfdfc6ndangqXvPjMTSjM Tf0LYs8DYEsmUqbNrSyWGV0Lj U3QSS6dDUthS9ziXoicltojF4 w Oyc+V63onL9sNGG7MOT3wyojQ XAacaTlSW48IO04R5ZtAbrlzZ FibGU+EHWhzzWylZfoML7hEtQ j q9zgw6GyJAcdR0OqRVGzEUcsV lf2KVRqAGZ3bKN0rQ8bVVNwPP yag1A0aUT5G7YxvcCsif4ek9p s RCXvHSeyH97iiKTnc9L8ZJRbp NB8RIFecFuoZwHtsT07Mpl+PG KntWigi9WwKvyno0qdb2unoAt 9 JnNqIHCltfTcvBexAVM6g5YbK o36Y25sJRsmRVSwBMVxVIWjLR DqmJbpbr7bdU6tYl3+PGNvbCB 3 wDO5gE6kKBEtNrG9XBopK868W zKsyNMyDyouf6kkx6oquDn8Qp NxZSAdezEtjZarKEZ5o6AuPu0 8 Y55dDFujPCRkJXPaDNSyKGIje Sjtvr5dtW2rHh7+OF8jo2rxre 45aZ33oGX+VQKwKKQ3mDxaYPj w LXEyfP3pUYcwLqC6JKHzHoUxp V50rIWjIZltNx5yqAprrZhfOA 7bPVBejwgzk098JxRga7noTVS w tQXuDKzxTIR3N06kg4E5DEZuA AWzVFN9sDA9bW3tkEdkngjkiV RouKdutcJupGdqTJiiHHttC15 6 IHRvcDsnPlBhdGllbnQgTmFtZ Rm1E7HyAby7USOmdWrtJI4boE RwLIngYn7ohZivfMzxPW1oQHP p brvil263OaYhp2mzTHSkeHAlU UfrCHT3U83bn9M1VJBrNZPkLM X0gHQ5hD7zdHokfezguKGskHr g puWcjBrqJKtrXYquA497QKRwm ZzaMuKmksTdMLQyxPP2UJ02AA 57rFGud8P7cNI5D2UaXZOmuzz t sboagHG0OHUwNSNyaO53Jl9yu HlzEu2gTDJwPJI9XGPbyRYqQ7 SnxD7dIxZnMPMcTYXbD8NvxBE t UJylG192FYujSyG4WKEzglDkL 4WeXAVxpUfzOdM1u2E1Gz2XQ1 A7EQ12EO10aLSpg8M2mSF9T9K h DKDiuhkekldidFG4FXWlDQEdg D49Pj9vhIvyFf8iMFNoOMF2BQ YxnRUhP2BcoZ3oUrIkCSNjJGB w U5ElnWPxYKhaM774AXleXmI1Y UMsrdXpI2IqQASlhWeuYzS7y6 X5Fh6NBJp3BD04FY34gMYga5U 5 sNS7C0MaWYGrqjmzvzadtXB3K SKiZELufW25Io4wxHroVk6wXB ZgKDS3IZZfaGEqZ3IthZ8hOmE j FVRkBPWpJ8GilIPuWAtdU963W IjsMpH9XEGjnlPsS6OpBMLtdC bwOaS5c7C2Xp9TYWCrEA72HJF 5 hXN9ZR55YD13T7PzMalyeJWpc +PHRhYmxlIHdpZHRoPScxMD YnTkMbfQuzWS8cPb3pSUBlPIP v mQszvJKsDpMdv0ggFCDcIZbcG V2viKtgY3WkwYL9BLFuj0p3Pr 21T90iK1DgdVF+FBHjbUB6rDV 0 aN9xTxCgXvU7KDwnW159QtTpr UKgDxxsc3sdq6vasMm3OmV0NU SebbUubYabCYP7d9JnAu69M63 s IHdpZHRoPSIxNSUiIHZhbGlnb z4xsX9jBc3+RYXahMW0iJY6rW 0fUdLjUxR8QBxnN284MpPfwBZ v Ffhto8yqg0xxvWs3KnNnURGbi hPhhKsiZPU5t7GmOo31I7XnzS rod8OjNud9wz16xFTuh2O1dJS 9 K5QwTBIfubcjlLDvsAboHU0lR DMyrmuhYTVbbS8sEJJtE6v2Xc XwKcP4EZslU5UqomU9MGYxkCK g WNdtOPC0V19rn1D8ZBDqCTSoS IU3uRT8iU4tdWfhgunkzXCcuS ymhuXjeIvgVNeuTCyvV084AXJ v hCvkOFYocC8pJQLbwXDcaUbbX X4pAWTwhcheQqPNMt6HEfbeGA 2YFSuJDEq7C9JzYyk5RLRmkTo s WM7seQYuZAvkDf8hdOwwxBzkY D1zFAMcupwsVLIfuN1jJGTpnR DdhUvsBY4xHVUekhkzo794YrF x XLT0UBJzrDPqG3KybW7wFdUpR FLsMKSnS8OcsISbPLosC233RH tmUzC1HQHqxiFkN6SeVKAouYj u GoU7c5R5Un4dWn1pPN5pYOC8I O48JP79yKFyc8P5hTN8T3NyKZ QepmzfkhveuAZ8RJEkUWNmxV9 7 fIXwMYdxUs9ji9W7o768ZZQqL RAyzI23Nt7weKliJBEtgZCJnU 9dvvdli8pzflvyAbSbXHTkJTz 0 QRb6IZAkkAglItKxDVJ5FtW9J CW9aJCcaO1dlHepkupytP2cVc c+NrIjAPYbccR4S0TsOtr5PHS z uFguOH1mcCWwWEsxEz2zpWwex EfzRV8uRQCyveziIBHfvX7mOI YdgLFgoTvkYR3wDQYwnebjj75 0 FjWgHYZ9PCPbmIKmH9MrsN9nT hKrMJReFBWeD3EqtWWnLDefG4 85NFfoPyQ1NURdkbHeD0PuOUM s vIhzZqF8b3P9Np5KBOzlNJ77T Y92hDHto8C3oIC0G2KsVANhas ezntfglHJ1JNKvGDWabL32yLJ k AQxaPi2ch6G9i572CSWaUFBjk R51Oc0dzGbaHPRgzLDHdN1amm xuv3lsrznzIxLpAFViZXj6AXt 0 PBPvsPwfKiTsQVM2KzX8EJW9q NLvqT6izDicjmuxxW9vYuh+T3 I1lNX0bPFdhKjjlXM+PK73ln1 8 N8ThVhudYoa3YOTdGAO9eXF0d E4vXADnJNdwa2R4uBS2F8Cwwe Coag2cc0qgPPMoXLgsT96yuOD w x6Q6AFHdzVP2IIJfsNozFmWcj G93Oyc+HXFrvVzjs2ZrVujie4 ust4dsrKh8WbFkNBJjdvTfdKi u UAQ5s5WtZa59C79oFWbrWZYgC RWmDAYtXVAipYqvot0tkS4zPi 8+NHCqwZI3eAA2yE3wVeOxMxZ 2 WXsyC851WvCvwEXdBelqz3xvf 3bgnMs6ZsRmCKNrymDekEonPX Z6p4WoHp63R0FrsMzqf9RfJrq 0 tw63nYImr4G4hTJ7X2OzBNMhd xcwkTSpcRbcBL5wEHYneuvnWM EqxK5uRGVtL6p7VyDuYpT2QHv u R9SxklH7LRUsdTQjHWJznLUYc Q3jivadj5tbzflvEvGvGKRpNI z1RUk5PRDjpNcoOsGfVOS8JaB 2 CBN8oXCjjT0zyAyzrlxgdQ0rL yc+UJn1v5fivMAvPD4gzPY3SJ 68HG10dCJwd5C6hDP8A9QzPHS p evmaztfybUM1JTBkREGgkI75B t2dbMvyKz1tLVQkDTR7FWZxwT DwJ3GynR1bOfNcBMWfMNKmW7F l kGZtIMehP778YQucDmU3PMCic bEzY7VgJLKcpJppSmY7c3E8Ku 7WPI47WG00JD97aFLip7L8qKG 9 K5EkCWUsnzhsydxdbZS0WVJyE KOcfR24Vl3jfRufNp7tZYQtBR D6WXDmbRXmL5VmjP7jWqQjAOY w ASBvM2QwpSNtCFwhL388MJonV zW8AWNdboCfN5McGKArcOwlCh O0h2R7Dy7LHb29GL04LG82dPP g g5F2aBI5L4EeRGVxkpfxkqnzz MV8AOIpDPTrxR80Jj9pwXmnSw 7nSKLvKBZ3LNAnwYPxJ0PrsN1 y BxXjHAMbEGHxK3CikGTqUAsrH 619BOrvLrB5CGNnfpGrR4QuAB SdnFwnHiY3s1D4Fh0QAYrvyvz 8 J3KsUovrrQK+NY03LHWcKA49g PFlsKWmr2isvWm7VxKoLBChXT G7vQnfQDmsk3QuPOXzE84cbIO w c2U6 (more content not included)... Normal [facility] Coding Summary. CD:[id number]:[id number] Gh0bW w+PGhlYWQ+NV3WOLTaJ04fgDN xhU1NK8fLYY2NZFGOQJWWAI6Q BU7dzCQ7AZejF1IlbxZu DxdxoULyHY60JQv8VJA5jIdsO XfcdK9msMRuG5v9QbCqGX34iO 93LTvbLIGmDcE6XyGszfpypNT y F3auYzWfeQRyWar+PHRhYmxlI HdpZHRoPScxMDAlJyBzdHlsZT 5xDy8zWDLfXGRdtUrmmCXvYqJ j x8mwEYKaKSixDZ6btLroM0Rui YH9XDJoa6g9Dh77iFN+PHRkIH H7lPhfBRzvi424UcSra3bxJZK 3 oQDcEQwcMLO3B36kc0H4EFOjE LLeAKF3hMT9hN8rqWppjyqzS7 JdcGCoWiS0POU6gOEmpE7iyWk n yucrrS1oUak+T65CAT0MQAARR C5IMva3E3MtHjbgoBV+PC90YW PnIF36tTWpzRYfj2mxwTw7PcB w QGQzXDP5aYiaLPgag9OwTWBzT 21tsPWfh6H9CRJosCwzoUZdLv ItnYP6qF1fODrqkfteb8rumcj n Knolj9qpng49wP42A79zTXyoI RZzNKW7JUQwKMZvtDayud7amC 9wIi8+OSdwc0jds1owrCp6YtP w LBQsloJddSbdNCC4e2KeHs22L 3YttOsbc2AsVvo2dw77rOCnm4 W2zEX6LJzkMNTuvQ7fTGcrDrL 6 HLAcFfVpqT61nQOoYAjgQp2bk DmqtSttIM1uHRTjqesuKHAfkM 4iINSemWHqhIpsFN7xYHPqeso m f818JzAxQXD3MUNpiZIiP2Dpt S4cMaNzABZaCKPgM0QzgXQcJB hoB490WAxkEkI5WCNcnpOtL4K s BKCbzVpaPbG4x9N7Ol6Iy1Rvn jnpOMS3BTmdGVYbGiM7UyEjNe H3D0WlFcc1BUUerUcnHN6iQ4J h FDVrtlbjpawthAR5PPNxWZUad T64zPXmCQzrVm3le3C3m782EN IuDRJarY08El9pmIapQAFmaBX U cW5einekh5lagtcqRtLoVBJjB Wn7VSs5BGBkhAccOfWsNJY1Mt B2XOA1qOSfrW2uaVclnondyJ4 w Oyc+R29alT5lEXE8UWT7gsrnS MLmsfZaNF12NO94Y5UmZnrivY FibGU+DWIkrfFzwLcuMI1uFoO j x4twp7WiHSpkZ9HgTUPxDGvkL tq5ILMyODD2iLA7xX8rDETpXV gbn8H0nNS9U2KmpcDwvu7sc9t s MXLdBFneQ17teNZnw2K4CNKsi SL6XWIwuQowKaWlpF42Ngj+PG EvqJxon8MbLfjql9uva1kddRm 9 JiZdEUHorqLnpKmqCHX8q1FgW w49F09dHHowMITgWEOxYWDxRR FrcQopuz7taR6uEh3+PGNvbCB 3 rHL7eX9zAJXdEuT5JDasV511U iHccJKkGhyuu4wtx0lumRn2Hc UhNSLguyFhpQcpYJI3d1TvMt2 8 R97zKKdvAYDjIBZsBVRmGQLsk Dhpsa7gkI1uWb3+RM8va0rhzw 77sP09iVX+LJNtIEF2pEqbCTe w RZBhnC1pVXooUkI4QHXkQoOwe Q90dTAyLKyhBy5hpRbqhHhwXF 4xJELcoslei526HmDcn7laXDN w gCWeTGspRIM2W05ci1W0UOZpW RJnAXH7nNQ3dI4fsLtvrgahtW WpgGpvjiOczEqkXOmuHKteY26 6 IHRvcDsnPlBhdGllbnQgTmFtZ Ya9M9QkUfd8CGDcuVtsGM4vpI HiTKjuEx9niYsxdTcjKW4tETA p lhcxd468OyWpr4qxFJIziKPfX EiiFPW6S02wv7C6ENLxSAQyNJ Z0rCP5pH7mfMsbndqxaRBeoAe g rpEiqEafGCxaMXijB249KOSqx KupSiXaisEhECLxzNU0GP98RP 32bKEef7R5zKH7X0TnSCWsurf t ozaowQX9BDGvAVNsuJ33Mx6qf AouYc2fCBKhYHA9ATMpsZDkA8 PmoG8mViZgCHXjQGLdK9RdoAA t WFusK803HEhzApI2MLCoygRnV 2ExCKZivQbgFjH7t9H1Cl5VO1 M4KV54ED69cQLob0Y8pII2G6S h CAKdtqgotakluFV0WXAbDDIla B71Sg2riTjyOz7eXJBfHNW5TM KpoDShX1CcoS8iBsWaPCRkMRK w P5WzzUNgGOfyV951VHwcZzW3Y FZhvlImT8XmQMJisRnjUmW1k6 N2Fc4AYCs2QG08PK99lTAaw1T 5 zAZ8E0JrFBNczfdwijbgnZR6Z HImSIVapT29Qt3hbBjqNb4fZQ HlDQF5VTOcaNEkU1MzeD4gPaZ j MMCkBUZmP5CljXDbHMorI023G SeoJuW7GMTkzlLvE1CsHDVpjZ afFyH0t7V5Rw2WBAZtWH69FMV 5 xHO3FV08WF18G7OwJwuomNYgi +PHRhYmxlIHdpZHRoPScxMD SqVeVgrGwePY5yIm9yFVSuDPO v dKyvqJSlGdDgq2yyULOnBSajD V6jyHxzW3GshCC4RXXqa0t2Sk 50E95kW5UpoKM+NKPdsXA8zLB 0 mZ9cByOtWgO2KOxwO792HnEnn GJgOnarz3hdm6bgnBk8VvC1NX SdrzJskMxgXDN0q6OmIx94B27 s IHdpZHRoPSIxNSUiIHZhbGlnb p6lcE1qVr9+HEWwqSF8xDC8mN 3zOeHsZeE3XSupQ540JoDrtBN v Vhpvf4srf0cedVn6CyCsXWLnu fNncFhiAWR0y9DsMx11I0TcsN xdx0OiMka8qo90dRHjs6S2oJR 9 T4JdSWVidmecxCHwzYxsSL6xW ZBzoxaxDMZhnO5qXEJrK3w4Pg KfIhP7UZzwW6RxwtW0TOFglUZ g SLhbHXC1G43ei9O9KMZiFQXfB OM4hTN6sH3trRxcnydskUAnoT puvaMsxUfiAOukILwjZ973IHF v oGjiIOJgiZ0wNDDoqMKivNadF I9nKFYbycpxMnYSIj1VThabEE 7JTSdYNLk0U5XeHte0JBZleUe s JR7svMAlXLvwNk8owCawpPqgK M7vMVOjnlkhLDGzjZ0pGUMwmR XvpXzmXG1bZRSnshpkc944IgH x IUW8FLMgjDNiX0SjvD9cOoKgK NYbNXOhA1CuzVRlGEirW464BH ihYnN0VOQfbjAkU5OrAWPrhCy u FvX2g5J8Bu3fHp2eAE9nIJH7Z Q67KY83zRJdz0J3iPU7I0WsKB ZfiamojqmzuVR9SJFiEPMpeE0 7 uGLrNXigOx1sa1B6u929SKHpG OZxqB68Tc6fgDpbTJBogQATbI 4gliptb1oeptjmPfHdBYDwHQi 0 VXf6MNOxbCypOeZbRBY6RlX9C FQ7sDXzfI1zyAzfnjaocX7vZp c+PmDjLIElgrI8H2JvZqh2XVN z aDnbQX0wrCYpZQjdRf3mjTrnb PruZB2fGRLyqbzeDEZblZ7qXB HipTTdaUnbLQ2cRQHcvompe00 0 DvHfPGR9EPKbhYLwF3PnaN2iA hZeXPIzFHZdE0PdkQBhPZmfB9 52VAliGrE0HCOeclInA2GpWIW s rKiuMtC7c4S9Sa9YPCynUQ08R X22qVEbt6Q7jMU2I9CqSDYfab ptcsdjlST6KGNvGJPgaQ40kHN k YFnzBd2rq0W3k576CZAsTFOjp M68Qt5ewEhtPDXrlVIExT3htr pod0vaykocXgBiRTQmSTo2RDp 0 PIPmiHbcSfDsMOR6TxS9ITU5h SEgcZ3mrAfspesqdF0rFbk+T3 I0cOK0oFJrnFltxWT+YJ00fq8 8 A5WtInsgKom9FSFtGRW9rUD4p J1oCHQzRRhid6I3rRG4J5Qsbd Ahda4eo7wdRLJtCGakJ75ifCF w p1W4ANIrjNC0KJKpaLuiObGan G93Oyc+ZHUjnJlup1MjDuisj6 pzt7mrmHz6HhUjYFSnmjCplPc u XKQ0s3RfHg23V12aQEouBMThH SJwTODrQUKjxEaaja0lbW2aYm 8+SWQjyUN2yCV0aJ0gRkCsIyT 2 KKtzS483EwMysINnAfuyg6iex 4hiyKd6CmOoJRKzjvJnmKyyLP V1a1NuKo81H7QktWuvz7CwCah 0 rr18gAHer3B8bSR8S4AkTAAqr pksgUVwlTskGC2tGWEartmhEK SwcD1vIPRmD1c0XoHmPiO1FEh u U9TgieS9QBAujXPuEDPvqBTIt K8ougrpw3ndxronVcEuCMJzCP u0OVj5OAUhgBedZxSeMFQ2ItZ 2 QXD0wQCfrL6phTdxlkbalE8hW yc+GZi0r8ucaMTbRK0klSG7ZZ 76VL02jYFor2Z6eJO1H0LgJCE p ogwsrpkloLL3NCUnZYDqfC80U k1dkYnrMa6qDKBrMLY2OZUwsQ MfK6JppF0kAaEoGZGmUMIiZ3I l wYAoQIyfN941SHmzQgP5ZWJmu gNyH7BrVTWpuQjtVhX5s2B7Kn 0VTZ38XY53SH26nAVfp2X9xYO 9 X6WcSXFmwognrhfjxOP9ABOpR KCuwO79Hw9xiDgmVm8dAVWbDJ X8KYGxmGTfD1YviZ5vJaWmOCN w KVIsI3WyhGHdWUwtQ551GAgeC lJ0HEUsgkRuJ9GnTYOutYjbZj M7q8O0Ge1TPq69DD15RF60fDH g s9X3wKC5Z8OqVZSrxcyeuxmsi TM7THNvXREwgB49Ln8nsJsyGt 2lPXVfZWI2BUGyvJCuU7DkvC2 y SeAhWEVxLDQcT3SjoLSwDZvjH 162KGaxIpH3NUFjhlFuX3IbNZ SxeQtuUlI8w0U2Rj3DBFmhgql 8 I1OyYvndqIZ+QP05RBFoQG16z BIbeEUfk0gipAp8FeShSDLzPT M7nVnrOOodv4ZwVSSgZ20uwUY w c2U6 (more content not included)... Normal [facility] Consent for Treatmenton Consent for Treatment [id number]#1.00CD:12 7 Normal [facility] Physician Orderon 02-04-2023 Physician Order [id number]#1.00CD:1 27 Normal [facility] BMPon 01-28-2023 Anion gap [Moles/Vol] 12 mmol/L Normal 6-16 [facility] Comment on above: Performed By: #### 1 [id number], [id number], [id number] ####[facility] [address] [place] [address] Calcium [Mass/Vol] 9.2 mg/dL Normal 8.9-11.1 [facility] Comment on above: Performed By: #### 1 [id number], [id number], [id number] ####[facility] [address] [place] [address] Chloride [Moles/Vol] 100 mmol/L Low 101-111 [facility] Comment on above: Performed By: #### 1 [id number], 4234797, 0496609 ####[facility] [address] [place] [address] CO2 [Moles/Vol] 30 mmol/L Normal 21-31 [facility] Comment on above: Performed By: #### 1 [id number], 4368279, 8265689 ####[facility] [address] [place] [address] Creatinine [Mass/Vol] 0.8 mg/dL Normal 0.5-1.3 [facility] Comment on above: Performed By: #### 1 1668031, 1624266, 0503127 ####[facility] [address] [place] [address] Glucose [Mass/Vol] 96 mg/dL Normal 55-199 [facility] Comment on above: Result Comment: If t his glucose result represents a fasting glucose, interpretation should refer to the following reference range: 55-99 mg/dL Performed By: #### 1 [id number], 7886187, 9994836 ####[facility] [address] [place] [address] Potassium [Moles/Vol] 3.6 mmol/L Normal 3.5-5.3 [facility] Comment on above: Performed By: #### 1 [id number], 3942841, 2492998 ####[facility] [address] [place] [address] Sodium [Moles/Vol] 138 mmol/L Normal 135-145 [facility] Comment on above: Performed By: #### 1 2367818, 7702718, 8629179 ####[facility] [address] [place] [address] Urea nitrogen [Mass/Vol] 21 mg/dL Normal 5-21 [facility] Comment on above: Performed By: #### 1 [id number], 3531740, 3348360 ####[facility] [address] [place] [address] Urea nitrogen/Creatinine [Mass ratio] 26 No Units High 10-20 [facility] Comment on above: Performed By: #### 1 6971276, 6013628, 1110590 ####[facility] [address] [place] [address] CBC w/Indiceson 01-28-2023 Erythrocyte distribution width (RBC) [Ratio] 14.7 % High 10.9-14.2 [facility] Comment on above: Performed By: #### 1 [id number], 4912033, 5370862 ####[facility] [address] [place] [address] Hematocrit (Bld) [Volume fraction] 36.3 % Low 37.7-49.0 [facility] Comment on above: Performed By: #### 1 2147063, 2896045, 8930217 ####[address] [address] Hemoglobin (Bld) [Mass/Vol] 12.0 g/dL Low 13.5-17.5 [facility] Comment on above: Performed By: #### 1 3401506, 2760468, 5410229 ####[address] [address] MCH (RBC) [Entitic mass] 28.6 pg Normal 27.0-34.0 [facility] Comment on above: Performed By: #### 1 8372752, 5973698, 8295368 ####[address] [address] MCHC (RBC) [Mass/Vol] 33.1 g/dL Normal 31.4-36.0 [facility] Comment on above: Performed By: #### 1 0962411, 2737380, 7970774 ####[address] [address] MCV (RBC) [Entitic vol] 86.3 fL Normal 80.0-100.0 [facility] Comment on above: Performed By: #### 1 4611538, 2720749, 1185137 ####[address] [address] Platelet mean volume (Bld) [Entitic vol] 9.1 fL Normal 6.4-10.8 [facility] Comment on above: Performed By: #### 1 5122586, 1141509, 9160777 ####[address] [address] Platelets (Bld) [#/Vol] 272.0 E9/L Normal 150.0-500.0 [facility] Comment on above: Performed By: #### 1 0425997, 6709837, 2786344 ####[address] [place] [address] RBC (Bld) [#/Vol] 4.2 E12/L Low 4.3-5.9 [facility] Comment on above: Performed By: #### 1 0304783, 7871560, 2102637 ####[facility] [address] [place] [address] WBC corrected for nucl RBC Auto (Bld) [#/Vol] 7.6 E9/L Normal 4.0-11.0 [facility] Comment on above: Performed By: #### 1 1753104, 9608454, 5072095 ####[facility] [address] [place] [address] Consent for Treatmenton 01-02 Consent for Treatment [id number]#1.00CD:12 [facility] Consent for Treatment [id number]#1.00CD:12 7 [facility] Multi-Wound Charton 01-28-20 Multi-Wound Chart [id number]#1.00CD:1 27 [facility] Nursing Assessment - Woundon 01-28-2023 Nursing Assessment - Wound [id number]#1.00CD:1 27 [facility] Nursing Note - Woundon 01-28 Nursing Note - Wound [id number]#1.00CD:1 27 [facility] Physician Orderon 01-28-2023 Physician Order [id number]#1.00CD:1 27 [facility] Procedure - Woundon 01-28-20 Procedure - Wound [id number]#1.00CD:1 27 [facility] Progress Note - Woundon 01-02 Progress Note - Wound [id number]#2.00CD:1 27 Normal [facility] eGFRon 01-28-2023 GFR/1.73 sq M.predicted among blacks MDRD (S/P/Bld) [Vol rate/Area] mL/min/{1.73_m2} Normal >=59 [facility] Comment on above: Order Comment: Order added by Discern Expert. Result Comment: eGFR is race adjusted. AA=. Performed By: #### 1 [id number], 8311418, 8447440 ####[facility] [address] [place] [address] GFR/1.73 sq M.predicted among non-blacks MDRD (S/P/Bld) [Vol rate/Area] mL/min/{1.73_m2} Normal >=59 [facility] Comment on above: Order Comment: Order added by Discern Expert. Result Comment: [facility] kidney disease could be indicated at eGFR's of less than 60 mL/min/1.73m2. Kidney failure is indicated at less than 15 mL/min/1.73m2. Performed By: #### 1 [id number], 8077021, 9548914 ####[facility] [address] [place] [address] Coding Summary.on 01-22-2023 Coding Summary. CD:[id number] Gh0bW w+PGhlYWQ+FS8BFBOoU91krOE bfI9KD8zRLH9JAJFQYIXITB2S CN4ttMZ2VQsgS5ZimyDn DdhxxSEhCC86YDf2EYM3tAbpJ TbvfV8lxYGjU7b7UqOuJW37lP 79BBgmSRHbQlE5GoBymmtmmEE y U6ptYaCveLEmLpz+PHRhYmxlI HdpZHRoPScxMDAlJyBzdHlsZT 0nZs1dABWxYQWjaChwaMBqMeS j y3ubAYXlRLmuJL8pvImvL9Cia FN3QJOqy8a6Pf21rDH+PHRkIH M5wBztJZmgq296BuPcs5tuDJP 3 nWBxPUtyUKN3J73kj0L5KFIoH RVnGPM7tBU2sJ0ycQbzctzcY2 RzyHJaKsX9ESL8kCNnsA1ixAw n ekdvfG3bCdw+U96OQN9QOCNYO I1GTri9W2IgGevwvIL+PC90YW DwBL66aSGuwKJbh1zluKq7JgX w XPIbYKM1lRtcDVdrk5TlBCCoQ 33ktLKoi0R7HHMojSikyTQmDr LwdOT8oE8qXKhmqthxu8ptimv n Mfoka5gpby24cH17Z39nSBlyD SJaEEE5DFHbOIDrgZmmas7fqL 9wIi8+GJzmm1qwd8dmlHm9PqQ w XVMwitAaqWtbMFH8n6GjYm22S 9YufIffw7IiApy0co37hULun3 V4oUM0WPyqGFUnkT9uUUolPaC 6 BLTxBxJsrK83eBCkUFqiOr2ov OmzgTttMR5pYLFxtfraBTWiiX 8rQKVtmJIhkCnkEX3jWAWuaww m c287BjUgPEW3QYYaeMTcL6Mqb M0iLnSwSXNaKTTsQ7GxpYBkZV rfN864XLigFeU1YQAdghXhE7G s IRXtsNwjRlA4d8E4Ra9Zp4Gxp tcfQRT2XPekZTVwYzQxEhVwQr F9X1WoFcl1ECQciUxbAC0lJ2I h RHFkpyffvivyrBV7GEPsFHNvj U30pYTdSQwxYr3rw9I1s790JO SxEYIwdG49Jl2bkNvaWBBnhXU U uH8sfwtts2ubjfkcGlNoNCZmF Rg4DKe0OFJpiMogZmRbMCR0Jc K0MQV6mROxzG4gwJumhyxdgR4 w Oyc+S93lkR7jZHV9JAF6cxffT IJgbcYoHB76MJ29W6UgQfenlT FibGU+ZWSsrfYwdVmbKR4dZxA j c2qgk2SnALaaZ9DmVDKtSItoB cv9MADcCCV7bYB8gD5iSNEcCZ cdx1J7wFL9K3CgsuJwtz0ay2y s FLIdPIqwL25bcLUoo3L3QZTzu MQ0OELagJjtPpRxsI20Bgb+PG HwdPuro1SyAfysj1kia8pkrHu 9 XyBzTMNlkhMfiIdyUPM6o4KvB h63H98tJGznWEKrMDAvTBPiIM BepLknvi5iwK3aPu1+PGNvbCB 3 bGD9mL6mJWHlKvC8NUncA856D vXlsFAhOzszw5spu3irzIl0Bt UmJFTobyQcqSwuAJG2o1BhYd9 8 J98uIXvwFQGnPSHvIZYoGHEsf Ydmmw5yxN4eEp0+ZD6kc3bmil 22nZ32vNQ+OMQdUQN3yPkgDWh w EVKpkW7qPFouRvX6IUQiQgVzy P02kFGxAXnsSp8jxRoxqRmkMA 7yBUXcrocvk552LrQvw6ldPJM w sWUmHYpbFNH2O05ne7H0TANdO BNoLUI0yJI7hQ3nnZofrzztsQ HrwJzetzXsmAqaRSdzJDurQ98 6 IHRvcDsnPlBhdGllbnQgTmFtZ Sj3E0ExRfo5BALhlDleBM6ydY GkOOatOg1tjNdxnGyjTG4fDDY p mozeu457IeCue4inCQSewMKfA AkjRLQ1K78yr3Q4PYRjHMVdQS B2nWX7zR5xmXwjcfmvcAOivIr g xlNlbItpTUodBTmfE074OEJdb MpvWaGjhmOrPTMbdXP1KY92RU 72jIAgq3I0qKE5U1MlNIUvdfl t ayhvbIB1XKEqKDPagS72Lz9nn TyoEy0hOCKmCUD8NEJbeOEoQ4 TguQ7iGgYsBUJdSUPgF1JrfUL t WGewW091FBvfYfN2DBQurrSyH 9PgQWZxdBdvUdA8q7Y4Bj5EG5 F0FL51DQ97mZRtj9W6fFA8G8B h CZQbckemsgyiaAA6ZRGrQEZdn K42Nt0sfHqtMq4zSLIjCEU4CL DfsOUtJ1GzuR1xCrFpSXFyHZF w T1ZumOPlGIkeV261RPfeYoP3D LQtrqMdL3DvPJHrgJxuWtH6m5 W5Wv0QXIa3KD66TY03sTCxu5S 5 pPR7T6PnQHNxrsemqxsvnYS3Y RFbINQzaK75Nh0mfMthNr4gKL MbTDL0HAMxyJBbW5AigV2pYdW j JZEvOTHeU9AnfRPbJJcgM892M DxkYsP6QHWdjvEdQ0YuBSEtkM cwSeM0c8S1Rt1NLRIzMB77WME 5 iNF6NG24ED30C9LfFuwarDQgg +PHRhYmxlIHdpZHRoPScxMD XqGpXofRgiTI6lDj5gEXPqPIJ v fJtiwWYgXwAbv2nwCFQaKAydM D6fhDxuZ9FuwWO8WVVdi2v2Ja 37V79uA3HveOK+UUIcbDO4yTQ 0 gF8fStQqHbA5EWfiS932WuToc GZiCgvaa2zmn6albGg8ItT3GK MikgLznIgkJLX8m5MvNx28N30 s IHdpZHRoPSIxNSUiIHZhbGlnb d0jzN5pXg7+BFUyyGB2oNX7qF 3mNjSwZuW6ZElhN164BzMzzCI v Xtudp9pep1aocQw6HmIwXTJos uYjzQjcBPI9m3FxNb15Y6UcqG gue0XrDvx3xd12kAQeg8G6rAN 9 X0UwRIZphnhkyHYpzWkwRW1oB NWawmfhZDDqyC8eXISjG6r8Pf XrMyY3MYcyA1QexwK9YJWsuCM g URfxIJW9W64sz6G8NEKdLYFzR RC3bXP5vT1lyTswesfjfOOidN pflbZsdYrtOEovLFxdW458MXD v wTngDXAaaS2aNEPemHPhcKmfE S4bRGVmoaiaVuFJGl0ZJhtuOL 4TFAkVARa8Z7OeKcq2JXQltNo s AK5wdGRxZPjeGq9lvAwweZljE M0eQWMxpresUXScrQ3tBXDzgM SrnGmgMB6zNXKskhyeu408FrQ x LYD6BAIwfWTeD2KrwO2tWkNzQ SDtSSFtZ7BnyWNkBOtwY044WO ttWdB1DJDwcyBpP5VxQVRqxEp u SxD2e5K1Dv8cUh9nVB5wHRG1F K33JX46iNMwr8S0pMC5R9SnWY UtpxuhxihzdUN0UBThOPHejW5 7 aPOpNMxwOy3tn8S5u148SABnV PDucT37Of0yjLjyWBUhfWGZnJ 8qdmoqa7ygbhivAyBwQURmMWd 0 UNz2YAJjfZhtYgXgHDJ4KzY0V TA3wKOskF5vqFrhwgvboE3aWp c+ZeUyDTNqynB3X2GwNor6EZJ z gPttUI1hqBQiORcgEz7zdJffm MbyHX6jCSGtzccxFBUvlV1fCX PfbWHvrGwkFG0sBIXryxueu65 0 EyBvCVR8IQRxsQWdW9JsuG0eA uBdCXFxMKIpJ5JadRBrZKlkZ6 37NQidLlG8GWQidbQcJ8MaKNL s oQplFuQ3n0N4Tt6LHScrFE99B U19bQSvc3U8xIN2A5YqNATtfy pjuoxpiVZ7EQKnXNLdcZ06fEZ k KLoiBn8hz7R5b188IYEvAHOpu E03Rn1waGdmQDTepVKUgK0nlb eaw4uwegfhKjQvJSPoCSp7ZHw 0 WKZavYvdPcIhUYX0HoX8YKW5e PYqeQ8oiLkiyofitF2mPsg+T3 W6mXB8wYKjcIvrmGA+EE99jk8 8 Y3XuDeapNtc6VXRrTFC6cKB9w O7jEEBiNKmgv7W4hGJ1X5Ckln Ciwc7bc2qnOSQuXJaiQ15pkNB w v0D3PKMklEW2VVOukLflDaEyh G93Oyc+PBYojAwse5CnAlxji1 ywd5omvXz3TsHzBIWxplXtkKo u RRU0f8ZdUw89U65hMXebJYKhH IXhGFHcECYitOruut9kvL7rKe 8+KIExsHG1dQY9vA5kLrZxHaR 2 EZqsN467AeNdjCBhFubci7bbs 3bynWv0ZsWyEFClhuJffMbuBJ V5r2UlIa18Z8OsrBvqo6QvRpb 0 wq42qTUda7D7tJI1G6FzCNKtl xijjJEesNenYC0pZBDhrbnxKY IynK0jYPSuO1k5PmVqCkF4UMf u N7RejeM6FGTjuURfQPNrcOIUq B8nnwubk0okzsxpMnQeKBEiDK a9HJw9JJBjfZjgTjLeNFR5PmL 2 GGD9lXEgfU6bcAeovdmhmV7qO yc+PHd2x5bbvMGbQI6ajPZ4NL 55DR28iZXcw8U4sLX1N6EaRNK p upadjprimCZ9HVTaSPYwsK09J r5kiZqmEu3uXSCnQTP5LMNllI XpN6MegM1eVvNdJCUbCWQlX7S l kGOjBDcdT478CRimDjT9DXNju oNwG8HkQMDxdMpgXpQ2a3F7Nv 6LLL86PG80GM45jYEfr8K8zQF 9 B5AaACQytfktcljnrUN9JVRxG ESjeH90It6tcNbnMa1yNUZiSB W6LEZjfOVuJ3VtfB3jIlCvOKV w NEDmD5UuzZRfNTtwC555GSilV uF5UZCbzwWlO9OnHETgyRvuGk C2h8C0Rt0DUy37AK95VR08xYZ g h5G7qEW1J4VtFQSpgqbfvfwjs HA2MECkDNYxgA66Ss7ihThvFb 0iUOAsCNZ6AKMqkVHvC1LbmS6 y BeItOVKnCWWwZ2MxcNUiCTefZ 168WTekJcB5LGHrfcOiE5NqBJ AamNifHnG3a1M9Bt5PATwulti 8 R0CsTuiqtDZ+PR09VNHnXT66k JQaqYIoi7qcoVy0LtCpUNMkVY F7yWdlXGiny0GbGIWrN05rwLF w c2U6 (more content not included)... [facility] Consent for Procedure/Surger yon 01-22-2023 Consent for Procedure/Surgery [id number]#1.00CD:12 7 [facility] Consent for Treatmenton 01-02 Consent for Treatment [id number]#1.00CD:12 7 [facility] Multi-Wound Charton 01-21-20 Multi-Wound Chart [id number]#1.00CD:1 27 [facility] Nursing Assessment - Woundon 01-21-2023 Nursing Assessment - Wound [id number]#1.00CD:1 27 [facility] Nursing Note - Woundon 01-21 Nursing Note - Wound [id number]#1.00CD:1 27 [facility] Physician Orderon 01-21-2023 Physician Order [id number]#1.00CD:1 27 [facility] Procedure - Woundon 01-21-20 Procedure - Wound [id number]#1.00CD:1 27 [facility] Progress Note - Woundon - Progress Note - Wound [id number]#1.00CD:1 27 [facility] Coding Summary.on 01-15-2023 Coding Summary. CD:324574DR:[id number] Gh0bW w+PGhlYWQ+XV5PVORmO91gcLM kzP0ZU0vFDK6ZQYSYTJAPZT1B NM2lnLL3EBfdB5SaotKp PzepiKMuMX47ZXx8QCU6mGknP AwfvP2pxZYaY4s2CqNuWR90mW 27IZsmERZgOcR9CaOkzixdyKS y Q7aaIjJxcNSgSbg+PHRhYmxlI HdpZHRoPScxMDAlJyBzdHlsZT 0iZm3cQETaLVDghYhtrALgPnB j c0ucUHDxNAgqMO5taJvhC8Zld FY8IDLyt0o0Nr64rZU+PHRkIH U9mVsbLPmsb364OzKjq7fgPUX 3 lKQpFRyyPCY2E59oo5W9EPTmF BMnZWY9nHM0kB5mvKhdjtjdT8 ZjjRYfQiI6COW1oAYbmZ4klMu n jujbtC6uUju+O20MNF7UDXTPI T7PEys2H1XbUccjeAH+PC90YW MpKQ30rRJrtKMzk1paiNu8OlC w HODuLSV1nXzhJEsjq5TyIEGrF 79bbOMdq5C6OYXijHmvwDBmXa NofVL6yY1wCJrptlllq0hucvq n Ccpat7ntln79sP19P91bQAwxC MMaHDS6CZHhPFWpeBsghp4ibC 9wIi8+EUgna5ylg7odcCn5QkQ w DBMvxtHgxKptTRL8s4FhWq76Y 3LyhJhdp0UsYru3pp24wOFjk0 Y0lHR7OBmoYBXxlK1sYAxxKsO 6 GPSiFzUpeS63xBAwPSpgJt9an JnpeWxzDS9wAHWnawkrSLCaeW 7uTJShgHPybXvePK3aPUUmdyt m g459QcMkIUG5XHKlpZUcR6Qzo Y3sPsMtBEBfTODtL8WbnTNrHF ldK010QLduEvC5OVQrcmGmH5N s CULkeXffKqL1m3G0Cb4Tt4Qpv zksMQY8GLttOUXzHrS4HqVpGe D2G3RjIhf1ETJsiEfrUJ0lT9Q h JPUlcspvmrdbcAB4BKDbLZInb U19aIFcHVwyPm0go6G3f425UD FpWLZnxX77Jx4ywNhmIKLzqYF U bL6emnyku7snsddaQcQoBKGbC Fc6CBy1IBWcyCrbTaFfTIO5Cx M7JPJ5uVElgA2edXsofbnmrI0 w Oyc+A40gxP8eQSI8MLW4iiufI INbvbFxHN20SX32A0LsAfpawB FibGU+QXKuifQyoPxuYA9qVxO j e0owz9UjLMvmC8LjTVUvBOiqG yh3NWVxTLZ7yCK0tI5sZSNhGB agl5O4oWV4F3KvpaTibr5ae2g s YORrFBjhT11poNOpg6H0XXDnd UE6JECbfQngXwWfmX68Fig+PG SbmRzgr0DnVltig7khd1jakSf 9 DbCnTRUwpoVtgIavDUC9i1RpP i60F75cVOvaWIPaZSEkQWMoXG GjvGbkdj3gtI0sYu5+PGNvbCB 3 rDF6uB9sQDJiOoM2TZixZ005I nZmnODpUtqcz4pqv9meqYi1Bh HcDEGclxBszTreERY6l9VkVo7 8 G94eEMyxZTMxNNQdRFJqZIGno Jocjp6znX6kBx3+JU6bf4pmal 76uW28cPY+NFNiSZR2fZhfMYr w XWPdiT3rSPgxIbI7FAHeOqPdj K98tSTqCRbgIk6wrJeemZyxRA 7hIHKeejivt047FxQgz4lfJDL w lZOwPVzhIMB5P74cw6P5VQMyL WOjYOJ8aCX8bI2nlBhmuiphjG NzzSpwfeWnmKldCWrvPLqjO52 6 IHRvcDsnPlBhdGllbnQgTmFtZ Fp0I3TwTpe5TEVbpSexKD4ksR RoUPbhVr3kzKxltItwSP5aLMZ p vcgzc244LbAmn5jqEXLnfBDlR NppAYD5F71el5K9CKIqAUHrUL O7iNG5vM7edTbyguzwbHHjtSz g jfCgfYlfSDlzMKafY656PVBxk RatEqRwuzPqMBKakGE3YM69SZ 42dNBaj7L4rHG0C1WjNGJnsnt t moarrSU9VRVeUJRkyG58Wq2em VfpLt5yBGQzLYH9KESwxMIwY9 JrwT9rPfJqKGYtAMVvE8BjvAI t DBojM750FEtzDzF5BBTlciKlE 7InGJQkbYfmRuK9r3F4Lm5JO3 P8JR51BH74hTHch1Z1cMU1P5Y h EPGfmqzrdniufXS4XEBgSGJll R41Yj8euEbgIg3bLYMdYBI6GA QrgTXsA9PbvQ9pPtBqANMgOUT w O1DclZAoBNsuP594RYdzPxK4V KMobjPfV8JxHOXbjEyfQzB1t1 D4Zj2EWGq2NK56MM65fWFoy2E 5 hNX9V0IzRSSdojmwrszfvDN9C KKfANCxdE18Xr0boXtdQb2gDE JcEPG5CFQeaBIjK3TlcV5sIuJ j ITJuLKCbY0QkxTMdWMssE822X SkkBvG7OLTghoBbX1AxYMAuuI odWfK8z5H4Ot8YGTFzTJ17DIT 5 rCT1DH52VP75A4MeWykcdLZiz +PHRhYmxlIHdpZHRoPScxMD VpBnGblXqvDW5pLn9mLSYwYVU v lNhbsNLuDmQdo4hjHPUsDRohR X2ahMnlF9CuoJE3ACBca6r3Im 71B78kJ7JegOW+RXXdzEE5uCV 0 hV5oCiJhOyM5BXrkC519DxFuy KYhUtdlf7cpy2ypeKg2XiT1NX UoxdAtlVazMSQ6h7RwPg18V24 s IHdpZHRoPSIxNSUiIHZhbGlnb e0nvU6nJn9+MSXssDE1nYY6pA 4oLmQfJkA7OPiwH412AhHinTJ v Oxjso1uhj4aiiUx1DdTqDMLwy vBlnMheVOY9r6AdDc61U3IrmS wnz9FxWku1uk24nIHfn1I6iAB 9 Y8LyDUPoqwgzaVHvuOlaMC4rG EEunpncVNZuoS8yXTAoO5w6Sk XcSeT7HDcmR7OtbpQ5LKLjwGB g ATouSEN3S09xv9W7SOPxSGZdY YK3wLJ6pA3ccTxrrgmhrAPkiH ugeoBszBblJPxoRDsmB326HOX v uMjsAEOqfJ3hWXWnfRGwmSzpJ W4bKTApbgknLuOETr1WYnxzVQ 9CAAbRTLw3R0DbRuo6BQOchHh s TA9kdCYlGBkbWq9bgRetdOifB F7pRNRdgrbxVHBhpC0kRCQpiF FafKdeAE7tOYFyshaur377RpH x EPA5EXAqiEKdM2CvsC0oIkBlM OCwHDZlD0OlrZMwEZxxI377LL rkWqG7WWXpebHgK1NhKZPdpRk u ZjY8v1X4Ee9zLc3wPF1lVGK8O Z78HD12eRPaq8W7fJH5L4SuSK RlxtdpzqijpFB1FRJpLOWnkF7 7 hHGcFCouFm1jx0G2t066JQJlY SXvnE46Ve0biWigDKIcoMQOgR 1eyolit9sxegmuNzXaUOVqBDg 0 PSf5ZVKzmLbtRoMrFMB9UmM8S XK1xVGxxG9zuFcsxewmcG7zLl c+PkOoAOLpgzJ5P6GuDfw0RIP z aNamMP9dhMCrEEgyGi6vmBlnk IndNS1eJIHivkalQSLqzG4xAX YrmDVcxVfjZH4dIBMxtmucx28 0 MiYjOFX2BJFsfGBhD0JfsG6uO oEiPQLpZNGdY7CqrZAmXRsjL6 75SFtxAsD0XHFemdNzK1XwWBY s uWuwRzY3s4Y6Tb4KHFqjXF23J M98jLJnl9I8uEJ3B5SqWIZhmn uqimgtnDK4DNOsXFUvwS36mKQ k RWmgNj5aw8W1x793XEIgOZUuy Z42Ul5nsQpaLDExkRGIpW5jaf ksg8qfgzrgCaKtSIYbFSh8UGb 0 OCGxkWzwFgKjYEE0QfU7XVY2h FXxsL3ugRojnnzbuY1lTlr+T3 Y9lLQ5jMKktZexfLB+XA53wp9 8 F0KsAqboHdm2WFXdSJR5gYR6c E8aRQYmSTigx4J8pXD1W3Phhw Vroc2eb4otTRUaRCvjY23zeVC w m2K3CWAaaZY9GPMsiRnaFlBsl G93Oyc+QRMpvCavi7XhIcelc0 kew4vjzMp9IkNgMUPjeqCqdVj u GMX2f2MrWx31H64sFCtpCBUdC LSzEUHpSEAzgZtpqc4mkL0xCo 8+VVMmrZH7kTG9gG3sMxBnPvQ 2 LJtcZ842AtTaiIVgVivdk6gau 6ycmEd0EhMsMGFkuyJnqLclDP I7i4KmJv84W7PcvEgjg3OdUrf 0 fb08xNGtx6P9fEW4T1JhUNYvv zoykEMjcDdfDY9fCOUdfrbsJI PfxB7vQIPiC6b5YvAsGzL8XLw u U8EwvxT0PCCdzURdJWMguBSOd X7sintdh5byrxriNoHdTBBrPY i2LLg7DLMrwBioMjZrKPO5MrB 2 FBH7hMNwlI6pdYdqhmgikY9gT yc+NSh1o6xyzNCbAB4pcRM7TY 88OZ62uBAeb7D4gMT7W5DaNMS p mpbmkauaiSV9HDIhCYRtkI15F j3knNlyJh4aVHGyEEG3IQOpeQ OqC9LarF6gKmRlFBCjXBSkG8H l dINqWAhsP087GJimUiI8IVHxs cGcZ9FhUYDdmArkPuP1b1F8Pt 8TCH69IG44QG24mJHag8T3uCY 9 X2SeLYCfwbbjftxoyTI8YLMbO LZzlD37Op3qpTugSn4vZFWcEU K1DPRqzSBaM1IanO8fWhTdYUA w RBToD7ToeCKfAJnsC209YDycQ nO8EJTzvjAnJ8NdGWYnqDfjEe R7t0O2Yx7UGc12VH34HC01mKR g a9G3jOO2W0NwJKIuuavnxkkcl GQ1HEFiKATvdP55Wi6ccHtbPs 4kLGDsTYT5XMFqpSPyL6KdeH4 y KrGrUXDdZREaM3PrlPXaFGhzM 514LAzlQpX1OUOnsfTrX6FdOX PzrRksVtC7u0N3Of1JGRzuyvs 8 J8GnRyztcDZ+UD83SWCsPZ11r PEccFVix9qwtGz2IgCjCPHaUF W7fNmoUKjto3CqJBPdI31qeJF w c2U6 (more content not included)... [facility] Physician Orderon 01-15-2023 Physician Order [id number]#1.00CD:12 7 [facility] Coding Summary.on 01-14-2023 Coding Summary. CD:[id number]:[id number] Gh0bW w+PGhlYWQ+XO8ZFUTiC76xnRE hiQ8MB7mLCJ3FBCIBRLZXIG2I QO9pfNR1OQmkB2BfmuIw IibumXJsVG34AOa6PGZ9sEcmE VlobV3qaSAnY7j7NhVrHG64aX 99HOrqQKQhEpK8TtGbwqdgzUA y F2yfExEqxTJtZgr+PHRhYmxlI HdpZHRoPScxMDAlJyBzdHlsZT 8kLl4zXPUsENKuuLpziXTdAhZ j h5hpPPGoVZquYA8cjLgmX4Gry DV1NEUlg1e0Ly27wKY+PHRkIH X2rVycSArdc204ZzCdp1glVSC 3 rEFnAYftGGK2N37ja4A8NDFxG KHjXIM5tLT2mJ8blDojxwrmZ0 JlyYApGdX9OWX0cGRrcW9vyZn n ezrelS4wCbo+K04ZIR0QBJHSV X6DQff0A7PxZwfyxQQ+PC90YW OsSI95wFKcvAThu8mqmRu5RrS w ODYrAGA8uNzcGDmyd6CzAWCdP 56izRDvy1F0XPMqjIbbsSVbMr SneKL0wL9kSWiyikcnk4qurtb n Cqvcp9ymib12oQ36G35lUQpiE QKvXNP3AMPtWCCqjHuanv0koB 9wIi8+LJavm0zvs5cmaPg4DxC w SUPvuuAcqRdkGSO4o1DbBe70A 4QyyEstb2YkZzi3mx49tNVij8 P4uUX2SPvbBKXgkE3kJHhgVeC 6 INQtAyElpE42jUNzRPrhQc9ju SrovZezJX3dQXXyetxbTZQjiK 1uSWWvxNMdwVzuKC0yGWKzave m z196TzRyDEW7XUNkaLAnJ3Hnr E3hPmVpFGVnYFLcD2BenBMoKE xoK364GDpeWnD0HVBerlDqZ8G s PNAqkIlgBlE4n0T8Xt7Sy5Rik tisJVJ6WGbvIQHtWwJ1OzCtGb A4J8WrHgd3KCWfsTtyJP5tS4W h CPXtenfpjrsjmNN5WNFtRNHug E94kYOdKAlfIo7yk8K2v837AM TpOEQztP46Ro5clRehNXNxmLA U oC2ewfsgn1jutvxjOySaIEKqD Xg3KMp2OXLukSpjNeHoGLQ6Cn C0TNG5gIDacQ3hlUkuhdctsX2 w Oyc+O07yfJ9cZLM0STE7ufcbD CLjhzGuSF59BT65F3HcKjblpW FibGU+GFMbvtKrqIybWR5xQcC j c9enb6LjZXsoR3HqSIYeAPssO zz3RIGdLWP1wAA6bD7mTQFyDM xfp7T7nIA9I6NixwCnqu4qj0d s IXIrHUngR17itGHps2L5DNDgz NQ0XLOqkYdwLiKcaV24Doj+PG QvxUeer1EoXndcj1qte1ictLi 9 SoSuHJLtudAfmZnxDNR8u7UwK b59X31sCOvhYWNlMBMuOQItKV IfqTszfo9kqN3kGw7+PGNvbCB 3 nHW8aB8oXNQkVaH6AWriB884Q wViqSRrZisqa1naw0nwnTc7Ic IlWDVocfCcnZabGNQ9d9LjKj8 8 G15nEUdsHTRqCLLmZZMzYGJot Gmovd4vcF1bVh1+WQ5da3dcbx 45pX77gWX+NUMuTHO8lFnrSIn w ZIOrlF8iRSqvIoQ3LKLtJkSed U93gNWvGTbjBw3dcFmuzUelBC 6qXWGookirt059SkQbh7ouRAE w yEZeEVniBMR6B06ng0Z0RWDkU AXdAKN1sOY0jW4kmUxtrhazoF CffMhziiPxeOnkUVhrTNliF75 6 IHRvcDsnPlBhdGllbnQgTmFtZ Og6P0YrUsj8IATroZsuLP3uwX BmSAzwVe9tdXnkwKflAT0gTSQ p dbybi013NxJrn3rbBGBauHYeW UonPXM0C23rh0A2RJHlNNXeNY R0ePJ2eT1aqGgwfnvuvWIlnHy g jlUzoOqkUHulIFfpJ479FQTog YxdDqZopnXkAVKywGB7VF35VT 06oPKrt6J1eGI1V4ErEJHruzq t jdbnxES3RTZrESAjsB36Aw7xm LooJy3fZEGjAVX8XRAbzSNpQ2 OrsP9kBoZhYKGzJLDcQ6XfuZR t LEevO337ZKaxIkM6CNOmynMqT 2FzLYUgrIieLlJ9a3V0Nd2AR0 Z8TO60XA57yGDck5S4iIC5Q1P h MSRfdznoqilqvRS9NNRlVYNtl L42On5roNnfKd6fWNWqMBP8FK LoyMRfH8HddZ0qPxLzDBBzMON w S1SxgHXmQZzqG822NZjrWnU7H RBsuzDcZ7RhZDCjwYgmTmQ7d2 L1Ff9GMJl1DY17JO51jUOzw3G 5 bEC0V2XhYHAnkvbvtsblxXM6U MCzMACkvX14Fh0xmXiwFd0nHG WuYFP5KEBfbNItI8LtgK9pSdX j SHKtMXHjA5ZazRMtAHcgG940P ZgyPdP0OJLjflAuP1UeJYUkeU flQgW7j4A3Dz4YWPVgAZ32RHO 5 hFB0XI19KA67G0IkFwkkjJHcl +PHRhYmxlIHdpZHRoPScxMD YeUwNtnUsmJG1aFs2cGKTjIXE v kNseqXRhEeXmo5flCSTkPOuxV N4mnQedD9RqdJI5FVIeo5a8Nw 63P48vF8NdzKB+OWLqwJR0rYM 0 sY6eYsVsSbB5VYjcI982EhLnf SVlUefbx0rno6fzmVu1UbU0OO NcnuRjhTnxUWR1y1IlIa41C92 s IHdpZHRoPSIxNSUiIHZhbGlnb h6rbO4jSq5+ZJJppKS1jSE7wV 4yXbRtDiZ8MNoiR855MwPqrJK v Codgu1wmc9kuvUc7UrPlQXRxh aKhkFckSMZ7d7YeRa37J8YrcB xmf7WuDzf9og25sSZow5J2wMC 9 Y1EzEOVchjtofDGhhEafVY7wZ DFuciceOSIlwO2xRWFkH1v4Ai SiFbA9NMkyN5MacbF0GSCspOQ g GVutYKR9E35xv1X4YGJaDRJlM NR9wXJ5dJ6yvCboxzuntHInmU fjdtOtmYgzTRbxQAvbP326NOD v tQerNQTvrD8yTDIqrKMbvVxgB F2cQLJinixaCtNKEz0BJibdPN 3QGRiWAHe9N3CnIpc9ZFCreVm s IZ2abSLmFAnsNo2osXcusYhkE F4mUZFdzuobSDXjxN1rSSZdxN ZyhMhtAL2jOWZrhrxwr340TwR x XTC1DUBiaMRhG0YjxO3bFvOxT HAxQJLnM1NywCTtDCrrN851ZA xcJmP5CFWkpiMrM8WkEDPuuIw u YuG4w0J1Hs7rCx8kKO4mSIJ6N W59WU53iXRrr1F3lGP0Z8WqUI DvvtjdufwxuVQ0VHIjKLQvcA8 7 mTGtKNrgXd1sw3P8a009UOKjT AKnuY11Xf2bbAseLHHmwOTZrL 1tfrguz8dsxenwFdEpPLYoDJy 0 ESn4ZAXodFakSrOoOPU7FvI2M AL3cLAjqR1stBgcakngdJ5oBk c+TuRzPMYunqL6E1OjYgp5TYI z iIixUC8vnXGqSIvfMi2rrWxcj AzxWV4rSSKektsoASTvhU5wUP SxaPRdeQbnZH1bCYLlaczda92 0 GiJuMQS3HDMzdECcP4UnqV0lX mXmTMGmUXRqH1GezJUcTIbdP2 69AFgvYyO7BDSqtlVdS2RvQXH s uJurKeW0k4D9Es7OSQazPI94U E72zUAyy5U8iSX0I6IwBGOnre pgobqgzEV4IXNuAYVjsH42tVN k LEloXp4hu1Y6x836HVSiPWZxf S19Fw1fiJyvQVSoeJGTfP2zkh iys4udhlamElEoPDRhKTa2QKn 0 UASziWgqSpRvKTP7GjY1SGS4m JZqgY9xsEpbwivapM5tRif+T3 Z2fLF7vMXbyYoroBQ+AU51ez2 8 I2DmSfneEza7VHIiSMX2fWG7r L3fKUAeVWcck1O8qNK2M2Qcmy Dghk9zh5akGWGeFNhdT11sdTF w d6O0XPNygYH1CPLcrUemSzWvj G93Oyc+HBHhhRfkg6MfYfqyy9 vce9lxwSa0GnWrNVOdpuPopFh u UCF2r5ZiZp91N45vNJjiTNUxM JQuOFAkZBTjhUahcy0tfG8hSj 8+PSKlcKP9zJZ0yC5xKiMpGaM 2 EPquA209QnThvKIyEvqom7yup 5opsDk9SgRwKJItgyUmkTpoDG J4j0YvKp93U4RkwZysf5BfPyf 0 hp79qLHha6P0yAJ9E6PvHWRra jqnqXXvoGcmJI3qDFTbthofPV AxcK5tBTEyS5l1YjCpYbD3RCf u B4DwpvL7MARqzWOiDWZwjPYXl P7xrhgcx9rvafbwNgCbIANaYY c0XGf9MCDgoVdsVlCtKXG3EfH 2 ZMJ0jAZtqF6ydYizqqxhaZ3kL yc+RIn6p8kohWPxXU5edND6BJ 13RO31kVGsv3M3gOK3G7KoTED p gvicaqnekQI5SIZbYXFgvS33M w8dpJvkZt1hRCFdEGM8ACLcbD DpQ4PwrC3lFhLlJQEvEKLuL8H l nEEgWOmcT957LYtzUnG0MKKqs tZwC5QmMDImlUwjJsI4d9O2Ib 4OXC84RQ64UK28nGElx3M9mCV 9 F8QbKLOykllkxpwmgNS6SHUyH ZFcdP57Pa8fcRniKa6hSOPtXR D0XKDerRNqY6ZliW2aHwHlODV w XXNcM2TgkZByOUlkK945PUrdW bX1ZVMpxrNqB5XfERZcqJhkJd U0u7O6Sm1UZs60OM08ZP34iKF g n7C6oEC3K4BkCEEebvpmjtoyg LL1DVDgSPBkuS05Kh5rvCzjXx 4aYRAsJPX4ELYxgAKfC6MmgG5 y ArHjKSQoCEIxN7InrLRwKAxqM 029OTwxFsQ4JPNhkrYiK8UdBJ DtmBmsKuZ4i4W5Ri3MWLtbxet 8 F5UnBqwgqSV+NU96NCNqGJ48i HXiqFKek3swgTz2PfRoGKNmFA Q5wGfiQKoyz9RbWLCyF52goWB w c2U6 (more content not included)... [facility] Consent for Treatmenton 01-01 Consent for Treatment [id number]#1.00CD:12 7 [facility] Multi-Wound Charton 01-14-20 Multi-Wound Chart [id number]#1.00CD:1 27 [facility] Nursing Assessment - Woundon 01-14-2023 Nursing Assessment - Wound [id number]#1.00CD:1 27 [facility] Nursing Note - Woundon 01-14 Nursing Note - Wound [id number]#1.00CD:1 27 [facility] Physician Orderon 01-14-2023 Physician Order [id number]#1.00CD:1 27 [facility] Procedure - Woundon 01-14-20 Procedure - Wound [id number]#1.00CD:1 27 [facility] Progress Note - Woundon 01-01 Progress Note - Wound [id number]#1.00CD:1 27 [facility] Nursing Assessment - Woundon 01-09-2023 Nursing Assessment - Wound [id number]#1.00CD:1 27 [facility] Nursing Note - Woundon 01-09 Nursing Note - Wound [id number]#1.00CD:1 27 [facility] Consent for Procedure/Surger yon 01-08-2023 Consent for Procedure/Surgery [id number]#1.00CD:127 [facility] Consent for Treatmenton Consent for Treatment [id number]#1.00CD:12 7 [facility] Multi-Wound Charton 01-07-20 Multi-Wound Chart [id number]#1.00CD:1 27 [facility] Physician Orderon 01-07-2023 Physician Order [id number]#1.00CD:1 27 [facility] Physician Order [id number]#1.00CD:1 27 [facility] Procedure - Woundon 01-07-20 Procedure - Wound [id number]#1.00CD:1 27 [facility] Procedure - Wound [id number]#1.00CD:1 27 [facility] Progress Note - Woundon Progress Note - Wound [id number]#2.00CD:1 27 [facility] Coding Summary.on 01-01-2023 Coding Summary. CD:319230KH:[id number] Gh0bW w+PGhlYWQ+OF7BBWPuD83biGS biF1UL1nWDM0KDFINUWKAGJ0P UJ7viMS7INzxQ6OatxCg TmlndEIbIQ57LDk3CNZ2iCznR HqdsM4iaQJrW2o2GqUkCR51tW 71UYloDIVrDtP3LjPmzlcrpHD y V0lnAwElfLRwVeg+PHRhYmxlI HdpZHRoPScxMDAlJyBzdHlsZT 4jCz2oGRSpZGKgbVhqbWFaLuN j p6wuJTBdQVvdTI9vmOxwI0Lbb PF6YUZch4w5Sg12aCW+PHRkIH Q2yXlySFwie678LlHsg5tuELO 3 fSXhHBrbOHK6B17lg4D8BJPsS LFiTJS2nYW4sF5fsOqrzrutL3 JarOBiMtY7QOW8cYIekF8wxLc n smnqqA4lXdf+Y28SBD5ZKCSJJ V2KEzg6H0VaQqjgwTW+PC90YW HlFM36mRToxEFfb4cqfMz2XnH w OSSxPDG6mSwtPOtvf8FzGRAlS 91ipUGtq9M0XDIkvFscvPLbIw JzxFL2zZ6iODypzdoyt6fnsbx n Jomsc3xtfj16xF65T68dDKvrK NHnSCF4TPOwFCYnbYxyik4yhR 9wIi8+CDbqe3ril9hfeHe4BxS w PYObvvMznUzqVXM6q2SyHn24L 2UitLzmj2AeJph5mj81eCAsk3 X4sLV3RJwmZRTjkR7rOSibBeK 6 WKPaBbFzxF56wOGjNFrdMq8xt GzqvHldVG4rRSJjsokzJBGiaZ 4bBGAfqANuqClcYU2sFOQeibp m w485WrClLKN9DWKdcIMdL7Ynh D7lCuOdBCIcNIFeS1FfhDVkAC xjG424UMfzEwZ1HVCpniEuF9P s ZSZpaWjzJwU4u6M0Cs3Mt1Ibz detTPC5WXmfUYAfTvIcPqBlFv U0S5PdZua5IVXjqWdmZW0pW8S h ILDqjknpggvhxSV6QNFjBEArv F29zBVkVOxeHv7rv1S8z982HB BuGKKhvY06Cm4vrUoiPJXejKW U jP1sbguiq6wfnycvCyFkZOUuD Rz3PBq8KVQoiZddTzWfJLJ7Br B8STN6wORbzD2jpWzwnzdizJ6 w Oyc+A61kgB2kNKZ1USL7hiyuU AHgqgJeIV01TT53H8HuLcbhxZ FibGU+RDNffcKjvJlfUR8bKcH j c2lnk3KyKUjsK2KoCGZxMZfsN iy7MRGsSAM3kOU9rN5pOWItZN kry4V7xWQ6H7XgszGibh3cs3t s KWGvMGdjN47klLMfw6S2NDSud XJ3VQUtvHmfOxOoyR07Clx+PG PvtRnal5ClRxqzb3gbj5dblEw 9 RmMdCWImlsUfzJdtCJD2n9XlY y36F13sKDouDTYdRTIgIREcRF KyvAhknq1tvZ3nEs0+PGNvbCB 3 gHS8uP5aHILrVaQ4KHqwR977T hExyWYeJqoay1nbc9flsEo6Ao ZxMVShciRinGedHEI9y4XfJa5 8 R05uAChoMZRgZDGqJQPeSUAjj Dzzvy0qcC8sCj9+ME3oo6chuw 81jH02hOG+XHTbRZS1gXqfEXo w AXLlwM9xZKfuIyU5HDYsRpMam B68nKOwDQjzQu8qaTmjpHhhYD 9aKLJglkxwm951AsOux0yxLCB w uKVzIVchPAN9L18no6Y2AIEoN IUmXFY5iGW0tY2fmKvfnixrgA KcyHaukqNwzZxoKWhqLSnwP12 6 IHRvcDsnPlBhdGllbnQgTmFtZ Rp6W8IrVbi1QYGvtOzlYV8eqS JbRRvvOc5utJothWwtND2sVDC p iwgnc930PlIas7zqKRIheOXeG ExsDLF7H65ew7S3SQQrDFEgJM D7sFQ9yB8bqEkkrlyvyEXbvXr g hrSonYpcHQgyDZkiT820LILrg AblKuJqsfRxCAPxuNM6PB48RW 10tHGgz8L7rWK2V5QsPOZdezk t glwskUK1LOSzYSHavP11Be2er DmkBg5pVPWiKTA7NVTprWXrO9 UovP5uLhHyRCFjALNwU8HnkHH t TWylA140WMceZfZ5QPWhweOgM 5EfXGQhcFhxXpG7x6H8Oc8ZG5 T0RZ70RD86nACjo3E3fTD4U8X h NUVnkjcvpbpllYV8WXSbHNQll D45Gi2cxAtjWy5tTZBeKOD4CM NdcUBoE1ZbqC4kJuUdVAHnQML w H0WtdDHcLDteE157MRmvXjE4Z NAgkvYhC0SeUECjrLagOgS4v9 T2As0TJOj3PQ82OP20nNVwa8P 5 uCM4I7UtKEIbqwrbtkhphSC4N TCvYRJwdT78Xb3sqTehUc6uDJ PuJAS2PREifBOsA5EbtG5pWtG j INPmOLJdN9MpiRQhSCroZ748J PkaPvT4KKKmejKiM7FvNRJvvD jcOfH0x1I3Ok9AKSNrML87UJK 5 iTV1HV84FD99D2AoCprknGVyn +PHRhYmxlIHdpZHRoPScxMD KzTkCfqPfaTL0bLy5nWXDrQDM v fJqdgCAgHxSzn5faBFDfPTeiN V3doFwvL0FmhPE1GQPim1i8Jg 19G48xS6RjbAV+GRXheDU7ePX 0 pC0rYuSyRtI6DOfeZ246EnDcn QIpRvwsm7bol9wfhUi3IwQ5YY KwmjBcdTvkBHN7u3KwJm43R09 s IHdpZHRoPSIxNSUiIHZhbGlnb w0rcJ8iEq9+RDZzzMM3tNU3oU 1lDvYtTdT2UXbpE005JgVaiEZ v Ilijg1eqt9ejnRx8NjGbZRVbv bZqmSsrTJN8x4MyBm91P4AweQ vts3MkFtm9gl56oUJda1B0kFQ 9 N9KaWAAcpejgaZDtyLzgIM6bX GIbjusjMSWevH9bXDBnA0a9Go SiEqN2BWlqB6RhmoC6BQJhsZL g TGsnZOK0N89os6Z2WZOiRGTuI FR9uCI3oJ8mbUndbinnhWUjsX yuxqXwdRiuMPsqCRfeE617KWQ v hSypYYUaxP1wKJOhxPByjKmjE N3fMVUnhlzeXkIQNx0HFbmkDT 2KGAcTCOx5L7ElZyd6OPJkkQi s NC1xbSPfHExiEf5kuIjzgQtxE N2fEFBtriokEHKmpR2eKAFkrA OjhXqjBZ7lMZZvluayy808HzV x RMN0MXLqgTRoP7MdwY9kEtHgX RXqWVCkC2InnQVnBNixG092ID niZqF9TUTsdqVoJ7OqMSJmnHt u DaE1o2J9Dn3yPc3fYD6yFKT1S C81QI74zQNhz6N8fSX5N2FnEI MjjgmsjjzlzMI7QOUgMKJkrA3 7 jCBqSTrdFb0op0Y3q426PEKsS ICkbQ04Tz6pfBsgALGrpNDKnM 5tgurbx1uddyynZoIrDUQmIJr 0 AQp9ZTPpqEvjUyWnOLS9DaJ9L DZ9sASxeE0fhZlgxamkvC0kUs c+VdMiDIUrpvY9O4KeLmc4VJT z kHkvIX7irLNjXDjoDk1luIrhe HgxHY0cXMTiumwdLXRxkI6wEK LwuMLueZqnSZ9bXAPpeapwb51 0 NnCgQCK7AACulECxH7KatU7hK lEtLGRwETNeM4AlsXTjZSmeD4 95PLmmDhF9XVHwtxXgN2PmGXQ s iSauToE4w2K5Bf1PDFvkVE84G F13mTGlr9Q5aZW6U0WnZYWgbf eqjkmqwSS5TVAfVBWfxB61nNY k EGskHg7bw2U4u681ZAAkYAFao S59Tk3qxWoxLBAquGPPxJ6mpj opa3mntjriBvMyTXPkRFm4LGm 0 YMHtePuyNiFpOLN3WqB2BQG1p YTnpE1mhDcfsaaswA7mZub+T3 R0cJB5tVAalZvqxJM+TA59wg3 8 T8AnCpvhOck2PGHmYCE1cMC5d K5fRZYyRKjqj6V9pSF6K8Skjo Ijtl3bk3kyHIEpHUnpZ94hlKY w s6I8ATDvrJE1PKRhmJppNwKbl G93Oyc+PVKhsYncl5LtTwlba8 cql5ltbSl8SbQpWGMjwqTlyNb u BJI2r8ElKr37E95vPOdaDPHpZ EGlVOJcPNBxjTipft1unJ5cSf 8+LBQqnMP9wOD7lW3xExViTjZ 2 DVfaL408GkGtaZIfWgoye6hni 5ntrWa8RoZqKBHrsnNxhAgwNX Z5j2BfIs75Z3GprTexs5WtKbs 0 ot31sIKpt5N1nDP4A3QqSQJta sqdjWZjnWkdWY2hLXHcqptzQT UxlC7oRYVgT7l6LgNhKyP6TCq u J0XltaT2TOUemDHxABSwoHQMk Z3jxqzzv5uzderoKcSdULWsJG k5ALh8CEEofZyrIgSzANA4AdQ 2 LOU9fMMuzW1soCnhxtancL5zL yc+BSj9c7fhxRVyXQ1rkES1VS 32KN83qENkd0F5uIB0F2GeTMF p sgcydlgmaRM2GWDyZRMtvC53M f9yaAdkDh4aSVQeVHE9OGFweC ZpT9IxgR5vGxIeNBRgRURbK2L l dTYjCZwqA749NBbeOlF3TBSfn rUlC1BvANQleNubUdQ6m2F8Zi 0DQS97RM63GF82pMIuo2D1bOY 9 M3ZxUECmryjxwhzfiXP5WJIxH ZDbiS97Zb6ncWaqEc8mPHWtTN E2LNAcpLNxO6LjlR1xXgKeTVJ w MVSsJ2NxyTGwAOgzS644ZHflK lB2IEQwzxUsL7VlQXGgbBlzRo F5q8F5Vy2SYr16QQ21JX48dER g n2Q7ySC6T6MiBJWbxhudowzet YC5ICFdRVWllB52Yq7tqSumTj 9qDVMtQKX7SDYvsCPhW1GslI0 y GkPgTOQeREQdH0HdxAUqWBbaC 924UBrzYkD3BEYmuwSgX3AoQC PhyMkiTdG4l8T5Zq1BJMixlvx 8 L6GjEwrktUO+JY95SEZfAE81c FIxsGIqx1xsyXx8BkInBMIyIJ G7jBheVSfsv8ZkOMFwC94dyYO w c2U6 (more content not included)... Normal [facility] Consent for Treatmenton 12-03 Consent for Treatment [id number]#1.00CD:12 7 Normal [facility] Multi-Wound Charton 01-31-20 23 Multi-Wound Chart [id number]#1.00CD:1 27 Normal [facility] Nursing Note - Woundon 12-31 Nursing Note - Wound [id number]#1.00CD:1 27 Normal [facility] Coding Summary.on 12-30-2022 Coding Summary. CD:[id number]:[id number] Gh0bW w+PGhlYWQ+FC5RFYIiL05uwRI vhN8TS6qRJD0ZGECOKPUUBY7O LG3xdYX6DJqwB1RnywWi LykrtFSpVJ58LPa8DYB5vFjvP HjbzC4cqMOlX1r4PmLeFK30sV 33HNhdEHGvCxR3WmXgcdlmhKV y S0jhFlXccPYcZfl+PHRhYmxlI HdpZHRoPScxMDAlJyBzdHlsZT 8yHx9uCZSrYPTrkXkwoRVfQdH j w8aeDCOwMHyvVX1jtVcvE5Ytg QX9UIZxj0b8Rw65wIH+PHRkIH D1aEhwPYejh513FxEia3qnQLR 3 lDItSLiuAEP7E62ro8A3OAWaV GAxYMY9fXG2eT8rjKqnsxwhR5 NnuWJoXnC3VTB7aGCmlE9cyEy n ubwtiR1oCwh+I96SMK1NGOBMO K8XWtr2I0HpCvkgbXL+PC90YW OtHH16oXVbhCEug4ugsBo3UoB w YPGjCLO0hLwjXPfur0GkYTMnP 05iwCTsq1W6VZDwpRvwrWJeDp RvcIK3sQ9cFJavcukhm2lpttm n Iadgw7pemy97rE71Y30tASeoE QQdOQF0VDGzUKOevPaabf4snM 9wIi8+BDycm2wrc6oisMj7YpG w SWQocoJyfMqiJFZ1m0KhYn88V 9LrsUnyp7DnAoe7kf13vWBah6 N6qEE8NKhuUMPzeU3mZGrrGjD 6 LCGzCiAneJ36uTPmXUrhRf2kd NuliUvhUZ1uEIRrrrwdEWUvrH 5nADAguUUzlRhaRH2sJZFuuei m t891KqZoZTH7QNNqzNUaN1Bmt Y0sDiOrMZApGASlT1IujRMrKH bcQ523UOvgTrG8MLWzlxGmF3M s ISPtfUcmJbN1r1D8Wu5Ts8Wjv ntuCWK4ZNbiRZIlVhNeCnDfBn N1C7GlGct8GOIrpRocBI1qF3Z h HKAlcokimmkmuVQ4FQBdRFUyt K40sKSoAUdmXt5fh6P5b992KC XlZCNthN72Vk7eoEsdLQUmmVA U zG8dxksvf3rpnmdmXyJcBVBdI Wr3VZo5MCYniPhrJgIrQML8Ux N7DAZ9zBWqhT9koTsyautyxF6 w Oyc+R85kgV4eOFX2OPA6aeftK ARxdmWkEO15OZ79G3WbGymecQ FibGU+NPCjfmXevZdtXT0iVoK j c8smb9HnFZffD0ZmVWEhHXyvP qi0ARWxMPE5iDV4qI9sWARgXM oaz2Q5lID7Z8IbefVuyj0ap9p s UIKeKQfoS01egWLde8L5CVEdr II0RTLzyKqqFtGkfK19Brx+PG GqlDdds5FbZbvhr9bdn4baqAc 9 UqXrRNHmogQqfLneMDF6z0QjF i33J04xSIxsHOGwJMGpMANmWT PfkIqsrv6tsC2oTy0+PGNvbCB 3 nVY3lB9pVGXqCoV0YOnlO091R iDffDPkWsgbj9dkz5nbtGf3Pe JkRQBnhtWdyFzaQJH2y5GdYo9 8 M51gYDlePJMcGWKcPVDfCSCjl Yjyec2riV7eKq0+IY1sb8tizn 29mE89fDO+MDSeJPT0hKmfLGd w MZTygC1cDKxiRiC8IUMaDgCia B58hNFoAIzyVg8hnNhexQspLQ 3mSPSoinnvf542TfCxq9hgUDT w sGSaIAxrWIN2K12si7E2NYPoX IKoQJO8nHE2bT7krAjoiunhyI AiyJrwrwGdsUatAEnfVCoyA64 6 IHRvcDsnPlBhdGllbnQgTmFtZ My5L0JyQaq7EVNbgUmuCP9wcV RwKTmuCa6nzSlgaNloWY8pMUJ p udcve467ByJho1pgCVDqhKTqK NlfJVK6Z18ws2P5UXZcWMWrLZ R3qCP9xP4rtZkxmftzqHEkjNz g ynDttXzoHTalFUsqG480HCYsv PjgOdAybwAqSVYlfGQ1ZK91OM 01eGMfh9D5tXD4H7RjQYFjiep t plvuxHM8RTHdWOQyvS72Ew1li FlcZq5qPUKxMHD1ZFAdvCKkW4 SmzY7dUdSeFFDnORRoI3KwkMU t TSwpE683URuqDkX2PEFsasCgG 6UkRSHchGgkReX3l3U3Oh6RK4 A5YJ53BY59pBLuk9L4hTE6D8P h SOLrrbafsbdxuEI1KMMhVUVzw T89Jw0wcPcpGh4mXODcKEN7KH VaqLZsV8CclZ0vFuGnPSFpCYL w P0BesJUkGTixF768GLhrTaB7C BIoiqPzQ8AcKEGquVzxPvG8b5 U5Hk8WCIb2MS57FW95wOKxt0L 5 gQZ1X5BzIARbysuampubtGV2B TOkDUEouR97Ip5lgZdbJl2gGM MpLZY0WNLlgNAwL6BruL5fTxP j XCZwDTMkE4XsmYSwAWnlL190I YqjLwC1VLVkgwIvH4EyPOPbzZ gnJkQ4i3X5Yt9KBIIeAL25ZWZ 5 cEF5EM76ZR54A2DqVhalxJGhk +PHRhYmxlIHdpZHRoPScxMD BhEwTzfUwnSQ3sPu9dGKByLKR v mCclnWPoPwRqw3nyOTTxENliO W7twNjpI0YamGL7QOClt0x5Ge 02I02oO7HilQF+IXCtcLR6mSZ 0 gS1gNtFzGeR4IMcbO299OaFij VDoTsctl6iai2ztiPx8IlX8CH TjsrIidWknMWM7s6CdHj37W44 s IHdpZHRoPSIxNSUiIHZhbGlnb s6jzL6xVj3+VFTqhJR2zWA9sM 9xOzCrArO6EWewF200MdZxsPA v Rqhlp4bms3fngPm6QjFuNVNgd tOccBtfIFP2p6GoSb28Q4MmoO pem2VeXfs4ko77hVDrk7B4zPC 9 W5BlVZTvlopwuBNboHyhPW3gB JIwsrzoVSFuiE9oSGPrV5g9Ev IuUjS0PNkeI8DvytB6AIJtyAF g FZjeSTU4N04cq9K8EOWnNJRgI HZ1bHZ3wI9izMcejzpgvQKwnY aelhLfsSewANxbGFmaR924EDC v mResQEYgeS8nWMAryAYjqPbkM A3hLSYhplohPjGETx0BHzlnPP 7KPXnSNBc1Z3TzNuw7PWFmrVo s MV1elSJtTDcgTb4vzCjtfHhyR E7vXJFlzvuuYGYcoT1wONVpxX AloLqgCA6mFHGtgmftg815MaS x TJA6CGOvyVRjL9UpxB8bQjOtT KYeIXVcO6TctBYbBTzlU977EX vlPiV5ANUovrMtC0WlZTZlcOr u WbW7x8O5Ye2xSf5fJV7dJEZ1J G78YS23uVZue8J6xRW9M9FmET NmjepuyhublND9HETgSMFbtP7 7 oZOcLLrfWz9iv3J8x101WXMvO QUhmI30Vy2aqHkcJEIhrXKQqW 1prtrkf6glbedtBpXjHGPyXPt 0 GHq4NOZtsEghJcYoJKH4OkO0Q RJ3fOIiyD2wuXvmuvkypA3lRu c+IeZfDTNqcnY6N5YrHfd3HPJ z uJvuDH3svKHjWFkeXi8idMfgq XouKS4zPLFnzbpoBMKseO4tFV SeoGWglLogLS8xKDVofscab33 0 AnXlTKA2CDPdvSFkV9XrmL1mA hEyYTLxHTGbY4LpfEUaUKihH9 86ZVsoNmW8WVCzjdHqF7PhNVW s lHkoTtK1d3A7Kx8WHOwzCR54W X19yWOqe2E1gRD5U2CtWNGakg lzcoabhSA2WDIzQVMnrU83hDK k IAzoNz9zq0V8d691LJBaKJDio H89Ri7myRknPJQuhUXBlY2qme hle3qxyksyOlEcIOIrVPq1AZy 0 KTXirSlcUgLuPDN7DyY0ZZQ2g WIneN7tsUqpyfkqpH8aBgd+T3 Q6aBF1lCDjkKhvlRV+WS22ja1 8 V1IzRjtyCkq6TQJmXJM6zTZ3h U3bMMBhTHeza5I4hCE6N5Uvmy Efsx3nb8bvLAKdNFhdC90flRM w n9G8IOWxnAD3COMcpYprGaQoz G93Oyc+RMEhqBwln8JuVxysy0 xrd2zvtRx2DoCvOZGlvjWkcCm u JTP5q3VtLs68X69zXVwnCHUhN ZEfNUOkIGKzfHorbc8olA5iYl 8+LVHrxPA2tEL5kY9mHsEsMkB 2 IGbrE911SmJkpEHzLqtzy3tfx 7xokHt6HbRoSBAtlmVhrKplGX H4r2JyOo08B1AhfRhpn9NhIrf 0 ft30eFRxs5Q3yBB8U9ToFMGra pqyhAQqeFxjWK2rBGPkwezdJI AibY0jUFCwS6v9WcRwIgD8ROf u P0FcurL9WRBxbXEtFGElgBRAg N5ccvfbb0eihvymVjLuDGPyNF o0JOf9FSAeyKbwJyGeWBZ8PkC 2 WJS4aMLpsJ5toFaentpagZ1nV yc+XEe5z0jlsVAyHQ2gdTJ5HS 49CQ30jJSij8N4rRE7P2CrEPQ p daugkwmceFH1TZKcTUDeuC68N y3fdVteFq6xZMBkYFA9GJTjdT TvP1PxtZ2jJwPbWBCdOGFpH7X l iYApTQrqD210XWymJtQ5TSYed jSoP0TqICIamDjwTjN0d7J9Sh 0PRE72ZH53GK12dCNle1R6qAU 9 M8LqAEMmpxtidfalcKJ8YLYcU LRchM55De3ilJefQn8wBFJvTM B9XXCfvKIaK9LqiU6qVyCqIZD w ZJAwJ1RfwZUfOMspT233LNjgD sU6AKCwogOwL9SeBVJgdAkvGq A7j1R7Hm0VMc68UY64ER19wCI g j9M9nYG1R5AzDJEuoevwvmdax OG8WDAwFSLxqN92Kz9srTanMv 8uVSBgONE0WNGuqQEoF9ZkeV9 y MyLuABKjJFVtV3EcfCQlKCatJ 016THijNmQ3MAPvrfRsY0WcHY AxmRssAtS3n7X7Fn8BEQkljsg 8 F4GsKgwejJQ+SJ92TZBjVB13n LQopZFle7dtuFg3YaJiRXWkMY R4cEdyHBmvh6QmPFNfV74wnRL w c2U6 (more content not included)... Normal [facility] Coding Summary. CD:[id number]:[id number] Gh0bW w+PGhlYWQ+UO4DNXDqP10piXB yrO6JD0mIOD4BPXFAAQKLNH3Q LO7svMP0ZRdrV4OwavTy UozusIYfYB59DEp0DSR4pNqyI PiayX9mzTEtC0v8GxOnXF81fT 10ZVneKBPiOrX3GxYolbxiaHL y O1ljZwMqbWLlGtf+PHRhYmxlI HdpZHRoPScxMDAlJyBzdHlsZT 5xNr1yZBHxVWEwrMzxgGTlOiP j w3jaAJEkPFviON0zsAupU9Dlx MO6NCSuf4q8Iv61uAO+PHRkIH F5aKlpMOuyx502McKtv2fxLQM 3 tXRvEGknDHF4O36hh5F9OVGrQ ZIpRIT9mIN9zE8ktOzpmlpuN4 KxkMYvBzL2WUN7gLHprV0dhWh n djazxN5mJos+V42QYJ3RDVZJE E9UOkb6M8QgYviqxIV+PC90YW BnUH27cFZouQZjr0uvgMg3HuD w HCIdTOP4bYvkFUsiz7NbELRzE 12nuWCzf8W1PZGxsKnaaRTyKk DwyGB4jV7yLDyxfcadn1xxxtt n Dybvd5pmnb13aK38F17xUQldR IVzJST8DLQxNOSjtIzfya9ekJ 9wIi8+ZWrqi7ajh3efvYl2KmT w KYKdyhKpkOllJDP5p6RpFi43F 5RitVdmk7PeQri2go62aYBmg5 Y6zCC2KBflLOTofD7cXWpsFzL 6 WMQkJsAooS03uJTtDWtbVs0qh RlonVefRW7iUATgidbwPEUyzE 7mXERdeSUlfGklMC5sXNVhcmu m w638ZoVqUBG4AWHhoWBmN4Rld Q2kRvCuXQDyJIQkZ1BucZTfSN owE307CRhbMiF4FFVskrNkY8V s FRQgwCjbIcV7f7O3Vy3Xp7Xud novNGS2QHrkIEQfBpTqKwDcCk U9Z8WtOfe6WQWxbNptGD1rT0L h OXXhnwavfqyseIQ9DZAbBVJst T80hISyUTqiNx9yg9F6a815XH EjEGZbzI27Wa6cxZhuBJMaeXG U dX1yzutcs0khmyhwYlUzTSFlK Uk4GDm8AGLpbLppXgAsHFS5Zi O6RPL3wIQawG5qeIqkefpxiH1 w Oyc+D56usW3eTFD6KQJ4unwrE QOseqJxXQ89QZ86F2MzVozqjU FibGU+UNAenmMqfUoxLA7cTkY j i9zwa7NdDHrmC4LeXNGlULohB rz3ZQWzEGT7xDI5cZ1gQDUvLD pbf2V8uRE0N1NpcwZqsp6oc7x s LJLpRHpnL64btNDez1H2AHMpu LX3YPEmtLbyQrYnaC91Swc+PG GksHzyr2MeCglbf7xln8vhoMp 9 OkWjPCYeizAqsJkpPWL9w6GvI a75Y72qBXbgEGDzXTCaOWBsMG UhvCllry6noG8wGu6+PGNvbCB 3 bAE0sJ4tCTCzXfP4TVujY548G gUzjETgGblqe5son9jsiTk0Cx WaRKPklcQnjVgcWVK9e8NjYe6 8 I17yAJeeFRLbKNXcPGPtWZDyq Duycp2bpW1hJl2+BL6ml2jjau 74vX89eVN+REDjJTG3mDhwPHt w XLFceG5yGIfiAxI8SAPrFqImv R14rGZsRVgzHs3mvCpnaRztJU 7qOGOkrdxwn915BtUnq0xmOOG w vCAkFGsqFZM6E56ax0D5QIAjO JFtHZX0tOP0xH6amCydvbpbiK CtaPnrlxFrmMkfELvjESudZ54 6 IHRvcDsnPlBhdGllbnQgTmFtZ Ja1R6TaIsk6GTJwnZodYJ5rdO EwVWwuGo8jlYvgbYjeOB3eWDH p dkrdj324YyPon8knLFLzfAZnQ QgrMYK8N54rs0C7MFAyEQIkUX D9mGB5xP3vnTbxccdyhEAbnMm g hdTgaArvZIsaZZvrG492ZTCzd JytPrIdtuBhIDVzqYR7OQ72XR 02kXAcq9G5oKF8E3RmASCxkkj t flkheNV8CFTfKEFyqW67Kv2rg GnzKq8iKCNeCYY1ZPUmaAOnQ9 VaoN2oKtKcSEWcQPHnH6ErrCE t ITezU504SIarCjB6TBYjszOvZ 1LbIDXmbZivBwQ3m1L7Gd1RY5 N6EB86IS86gIGte0N1eWC6D2T h QLWxykmdjbotzWL8DUQhKMLkw F64Sj7cxChyWe7dIRDrHVY1WT RonVIvD3YwaP7dGvEdCZWdIDP w W1NxzSYtGGgsN071RGeaFuJ6N XIqifXvL5VrORKckIptNcO8w4 F0Mv5XDQc7DP95DD50pPWgp9X 5 hOX9I3CyTNAxihpavfvfdFF1M OHpKWGiyX53Wj4hqKwpWj8pXN KmDRN6DPMcmLHpI4HlkU2fArL j OZDoBPNpX4SmsHBbYQrjT282S GfpNtW5CVAbdqFgA4FrZJGhpQ ntTbZ5i4F1Nc5YLJCrQX05MBQ 5 aLE8SM46CF44M9OeXoxueJNoe +PHRhYmxlIHdpZHRoPScxMD EdPeLmlDfkOE8aVj9iQENbXIP v bXozoIWgZqWih0jlZMHcGAuyG X6yaIiuP5SqoSP7ZRHzn3y2Qc 00P19uR2GqzPY+DIUwqIF9dMK 0 aC5zDxStGdH6JClaL519AaFws NTlQbpgb0upl9tglVx5NzB6RH WgouQjxWgaWXE8b0QfRr88D89 s IHdpZHRoPSIxNSUiIHZhbGlnb g8fzQ8qEp9+UMIetTU0fIL9xK 1eQlJhJgB9EAxjC300OuHsfEJ v Keppz2lcr9khwOe9XnWsIOSdh pRixFjrOSO6s5NkPk21M0LzeH qvi6QwOco1vh52gNVdy0Z3bEA 9 V8TsQMUwnccohNNwnDevFE8yU YBdsftdHILhlJ4qIAEjF4u3Lg UuIfF7HInrJ6EccbG8XGJflHI g FRyoAYV2M88vr5U9MXKkNIUcU YE0gRX8oF9uvXbsuhxvzKKhkE xnjnNzfDkxYLcnTBibS396NUW v gDefWWOnjZ0dWKEcdIEnjAbaY L1jWXYehlywAdUSLz0IGkyvIE 3UVZqCQYj0O4WhRpo1ANXwzQc s AI3abGNhHCmcBy0hlVgosYqlR A9pQUZbvzjiRAGcdB1eWCKuiK JioWmxDB5jONXatrgxw326PhO x OHR5UUAucECnT1TleV2uWqVkT OGwBRXaM6YwuAYeMWckJ676PE xhBoU8KYMoqwCaY2YrIHVjmTj u HnK2w0I5Gw6bFf5pUC1tYHW9W E96NS72gAQud7S4mID2L4BsKN HlimtjksuqqYV3YXAlDRXhcN4 7 yKWeOCmrIr8hj5I5i572JQTtI QGonK25Ar9xgLkwVFEphLBRbY 5gtpgtu8isswmhLqWePNYhGPl 0 EYv7RUVecLkaNyRfDRN8ZyY0Z HF8mMTfjP8dkCanpykdlL8dFd c+GwSiFNHzbdE8I8WeGlh9FIH z yWfsBT9xjDKpOEwpDl3tmGfrt RbvTP2xARTijyicDEFixX3aGA XtpQUseObfTD9yDCXpwvyxm17 0 DqQvSYK2QZCigQEhY2PegM1bU lQcTSPhTGKmO9KubLAqMClzH1 32MIriJsO0RUFdkfYcA2XrQFK s wHdpYvY7u4R0Bv9AQLlmMC96B E22ePHkd9T5gXY2F0KrDNWdwu bedughqYF7EALtXPMwwE44jYS k TOysLm3dr1G4d042ONAqACXxf R53Tv8ymQpsSZOysUJHtE9jvk ilv6ukjjpoDkFeSFLvHMf4XAj 0 VOAdgHcoHdDhYQT6JeL3UEN8k JBbfK4owKmnzgcjwO3mMtw+T3 Z8wQA6oBIusFirzVQ+KV00en1 8 J1BnFxwuJsa0LMZkTTF2zFI1w O4yVXYyEJdby8J4jBT2W6Urtf Xhrl9cb7ckIBByJJaeG57gzHK w i1W0AJOfqUR7FGNkgChoImHod G93Oyc+JYKngJywm4WaFuoqi8 pth4pqcAp8ZhPdDCSevaZbfRo u TIA0u1TgHs22H98gPSbwVVDsH VTlVRJhNEQgaInqxy7mjH9aXs 8+PTTzgJB1mTZ3cR8nEpLiRmZ 2 SHlaC819PdMcvCCwLfjtv4hsn 9eukRc6NtStBPChbmTofNamWI C5i6JfPb03P7ZhzEblv0JfMyz 0 bn29cCSeu4P3bGD4D9OfXKLtz bbojUGnsOmyFT5wMOJlcufhZA JksX6kNCOpV1z1BnFoRkC9AAd u V9BcnfO6XPZgcWAwIZWmwQKCu W1oerpbm9ouoikeUoGxBJVeMA e8LZr6NJGeoArnYjJzNBP1MkP 2 XHT9nCItkB6leMcqsjvohV5hE yc+EZf6b4uxgCJlLP9vrYE5NU 25DA55zWQlo7Z8rXW6P0SjAET p pejofwigmOW0FWJtVWCvtY48L c9ycGthAt2oMKObTPD8IQBpsO XnT4IcgT8dKmDjEZLqAUTfA1F l fBHuMDtkS757NGqfLaC2NRCin hZpA5QiREYwqBxpXzQ6t2P9Fi 2MGA28VA92YA40kDOcz9K7zCE 9 S8JeNUIssukrziqvoZR3LDRuW ZNazM83Xr1xgHpeBn3xTXGeTZ Z7EGIuvDCeL5BepK4zDqEnDBS w AZXyM8ZhrXBqMVkwW768EKpzK wY0JWKtcsLoB0GvEOUfyAxsZk A5w4K6Nm1SAs63JW44YI38hHM g f0K7wHF6V0XzFJEmsdlfpfdys AC3LKMrRSRabD66Cb9bkVtvVh 8dKSWjFPZ1ACKllGZdE3FygI5 y DeHdTVLnUHLsZ1OniPNwHSvpY 890PZttLvX8QERcrrYkE3EfWC MabYgiQrF5k9Z5Xn7LWGzeuwx 8 V4MhAgnbbDK+AU15HXKmKL85e GKjuAYxm7kixEe2GjJpKSOeTN X3yMmxLMyce8SrSXXuI01ynIP w c2U6 (more content not included)... Normal [facility] Coding Summary. CD:[id number]:[id number] Gh0bW w+PGhlYWQ+BZ5FTWCiW03jeUC gmJ0PZ5dGYE4CSSKILVVLCQ3E BA6fwIK8UKcdZ1YcssZf GeykhMYwOL02TYr4OJB9fVhzR FndtQ3anPQiS2j9NsNbXO05xV 76IDmwJAAkDtK4AyAdyrbhyDE y W0hnFxIplFTmBkz+PHRhYmxlI HdpZHRoPScxMDAlJyBzdHlsZT 4hRg7tUNJzWYGbnLiktVAnFfX j z7aqMFYzUHtsNM3fcXqbV9Tcq CE4RNDgd9b6Es85bWR+PHRkIH Q8rYqzLYrmv960WbXqr9icKSJ 3 aQAsVOkvXYO5K50ya1N3NEVaA EZmSLV3lUV0zI7aqKyfiuvzB2 GwgBLyGjH7JXX1sLZadO0hzRq n obyioC0uHtg+E11TOH2QXVZNN W9KLrx0N2RbChovvND+PC90YW IiEA54uQAtrAFrb0cgrJv3WdV w RBIvFRA5rZljBTmiz5CaULMxD 02zuKMpe4E2YYIjjZhzcUXtFm JbeOS2sD2wOAubwaklb7jhznm n Caqgf6dnyb91uO03H55eCHffJ XXlFNR8RCXaWSDvkRpuya2nkI 9wIi8+PHrdx8ufl8wgmQd8NsO w UQBqvzAmbIttOSM3s2OzJk58B 3GysAzix2RqQbt5hp92nSWxe0 J6rWL8XNnvNMIkgR0oGTpjCeM 6 GOVeNpObxC77nWJxLKivAs2ka ThpfQkhCU6pWJGhenjlNJOhdX 7fOKMmdHQbeOzmRF5rKQAikjs m a908ReNuHOR0YJNlfLFlZ5Fqr B5fLnXbRGKvHWUoV0SvgUVjOM xiE771GXjyApD8TRQjprXyH7B s VIVdtTgpQwO9s4K3Qh5Qi9Pft nopJAR4TDjgTOElEbTqFyNgVw D9Z6HrHbv5YDPhwNizUF1pR0Z h NHLlxgznrwtdrXD9KBNzWOGgh N02gGLgQRnpGg0oq5V6g407MM QvJYItpG07Sw7ymKfgHWUvpAT U uY6duwgur9jbffyaPoNnVIPhL Fs0IVh1QSUcpZssYbRhJEY8De R1DHW7tPWijA9plIaiyzchfE7 w Oyc+X74wbX5bYFU2TFW3edjsB RWymmKgRK47TI30Z0GuHsscpD FibGU+OANfzsIdeUakWN9iRyK j r6mlp4XeWLlkG2QvLMMrBJlwC zg0AKLfPNY2vJH5hQ3lGOHhZT seg8Q6fXY1I3VnlwVxoc6qo9b s MTTuVKnhU34mpCSti8C1SZDmv YY2UYTgsKlmWvOknA32Qeb+PG HukQajz9JsYqpwm0sda8fysPg 9 IoCvGFEllrDkyHncOCS8l8AjK u79K31sZQquGEBqXKOsSYEeYU BwlGadmp8dyH0vZe6+PGNvbCB 3 qFS7zN3lWLFuAyY8ASjrR772O bRbkJLeJveks7gjy8fkfDj5Qb RiOXYrerArbAzpTTD3j7KhTl9 8 T92iRUupATRaUNIvFUBnUVBda Bxsdj0etQ2iRr9+OY2ya4gugw 27aZ88kFM+OACmJNS4yGwlWCn w YVVyqX5lFVpqKmM9UPMiMsBab B10rXEhQBdeWy2olOkshYbjZF 8iZTVafihxp348HmSbo6gqEIE w bVJhICgfLLJ3X25io9K8FZOqZ EKpNHZ0lSV7jB9qwAlwpdgviX CksZszawJwbAxiPPgeUDeyK83 6 IHRvcDsnPlBhdGllbnQgTmFtZ Yi5E6UdSrj2LTCaoDbzPE6liJ GgIKtdXq7imScbeYfpQA3kCYB p qllng815BcZbk9naSLNbcDZgH VoqZDA6T26rh3A2HNGzXPJeUL I8rXM8bE7teXugcqqdfQRyuSk g zyVbjFhoCRpzFHlaF454CHAdw LiqMwEaurOqTZQncTN8CH45DC 80mDBcr9J2eTG4W5DiDDHwjwm t kmevgLB3QJBcBFRjqR51Ai3zf DvfXo1eOFGkFHQ3WCKpuHXiM1 NhkI9kIsPjOXUdSVQyH5KsyEV t EXkdC143JXucRhQ4LZBfwmFgG 2XwEJPodPstSuM6r2S7Bf0LE7 F0UY93OM16wGRtb6I5oWS0Q5L h SJAlfubrqosacRN5NTClBASwf I44Kw1xzAcyAp7cCWHaCXP2MJ ZkkSKnU0VxuB7wLaDdJDYqKWV w B8IhzUQaVRtqU177BOqhZbX3G JYqadFgX7NfTMFjpFatUzS1p6 O4Sp1PBOx2GJ62CA31uUKsj9H 5 gUU0A4EoPKHglxowazeefQE2Z WDfJBVvhL11Hl0mnPexMx1cTP XlPPH3TAHgmKMiC3UzkW0rZtH j DMMzOPKkW5MzoBTlUXsfT489X KzcJgA0KCWvioRrN0IzAMDoaN bxUyQ3v8D3Id1YAKYhZZ71GEU 5 iPD7FO78GH93Y0VkSgfpmNEwk +PHRhYmxlIHdpZHRoPScxMD AdOdVrrDiwTV5lSo1qKOUnWEJ v lRhfaFLpTeJlr8biXDInVUzfE R7gqQupC9WxuCR2AAJle8x4Dj 78A66qN8MjtIG+GYYjuPJ3vBC 0 fJ1fWqNcBmM2SDehO209UfXij NAqQfdfr7juk7khbYc2JfO1RD JinbHwpNznMEH4y9UjGg20V50 s IHdpZHRoPSIxNSUiIHZhbGlnb z7pxU8pVt0+GDEctKU3xZK1yA 6zDbAvSsW9CWnyV029EqPjaCX v Ftsog2mwe4owmIu6BiSrWUCrw lAgnTgqZVK5z1LcNn97I8UotO qox0OvDva4il34wYVze4D2zJQ 9 L3KtRIVljbumuJFrgCioIF0yI SJxswujSBMtiZ9jCWSmC8e1Az GzAzX9PRyaF4LnjoN1EWCilQL g COyuDTO7Y95tq2T3SSWlTDCxD BF4bKI8sO2tgDjguddzsLYreC jkidDzvBarGQqaWPxiZ764TCA v pTmoQDEdkC3pYXKqrFBawUcrT J1mYHDneysxVvKVLa2RPjlmZK 9MRRsRYJd6E1PbHek1WUNrrJw s FM3pxLIwJGayVl1kkZeepIemF N6pWTThmkebJRIitX7uZVZokO VuzXiwFD6jPHSnuwpjs196GxA x JIK0RESyeZOpX7TppS1yVcFkX CZrGQBeU9LmmAYoKXhhP426RN rgCxN0VXJzieVuO7EjBHHknSg u OqW9f8Z0Cg2wUy0qJB5oBOT2K O74FW81eFLoe0J1bPF1E5QkEJ ZwjozbopyjpOI2OSUeOJXfxZ2 7 oWNwHSnjWp0pe9R7p767OTBqM QFluH46Xg8lhCfmGEMkxRMYsD 9ykvwjo2twqoepMyTwYBNxZQc 0 HTb8EGDnhHjjHhWkLVT6GzT7K EH2sUBfjC0stIdkwctrnP5yZh c+AcAlTCYraxO8F8EgMbl1CUF z tPbdZU6mhQFdENoiWe3gjMlvm VdiBD5aTLKmjwjlNUXguA7nSL FyiLRisEtaNW0nAIHpvkfjz43 0 VfFyCAU2GRTvlWSaS6GddE1dS fCuRSUhQEXrX0VksUYtHLtgN6 25OUseDdV6ZYIjihNoC9BmWTY s bGyqVjZ0a9Y6Hn6UXWhzBE36R B78hGWhr8V3yYX1C1LuWLRhez zzkfdifAN1PZTaQFFlyJ77lEE k WHnqZg8wt1X8r255RFIyYGDyb D59Vc4uxOveFVYnbPUGtI6cwm hkf0tdwnulIyBsMUGjNTh0AYp 0 KJRajHfrWkAzXZQ6CqJ8BMU5v PSdzW9opGusijxftS0yDfi+T3 Y0zUY7rJEdgSngeCA+KZ49ku6 8 I3DkUaabCgz8PUNrVSK4pMR8t G0yOHUoXTciy3B5gYH8M5Ksjn Eeiz0wq2ufRWNvHQoqU07evFF w r9U0FBAltNO4XGOhqMbnZiFvi G93Oyc+CDLixXclx0JeZgnpm3 mpm8wcuOk3QnKrFOUhrxCqoLz u KNK5a5ZqEy09W64cLAtoIHLwT PEdMTHsRAOnzFswnf1dvF7gWj 8+TPTqfYC8eZS3vX8wUfAcLhI 2 MZkpL231PfVmwTAxKsnuj9emz 4dciRf2OuFcLIDkimVdlPvhAW N0i8RxPo78Q1WydQznf9TzMfd 0 jd58fDMyx4S4wKJ1C2YnVFUja qjtuEOibPufNY1dGJAvpwnmLE AudW0uSYEfO4b4ExOiAmU2WKg u G8DxatE9TSZdrLBfNEHrtYTUv J3sowxzu9wboavmBqFkTLTyAZ i7VYu0WUVzrBkkKeXmVME1XuW 2 ORD7hGWguH3ivUlqbeookU4fH yc+UVc8t2rsmMQhOT1tvYS7NJ 94FH08qPSdl1A2lWT7W3ObMJR p hsocqtuesOM5KPZbTTVnvU35G t6syWkqUd3fKYWaMUJ3OMAbdG NmB9IhwV3mTuAkZCRwHPSdD9Y l tBToMNdbP854TIvqUtY8MNNsn nBcT0SeSAAitWlwCpX6l7Y0Ag 4URF26LX67TE73tSXwy2D3qXD 9 K1YzECWdjrxujwdxiMW4KRQjN GCudK60Hv8pyNuvBh5oVTOtQS P4VCBkpQMpQ4YjiH4wUdLfXUG w GMPyY0PqqGVuTJqgR856TIepQ sM5QJXqniUbA7OoJRKggBgdFq E8g6S5Qm2OGw95DC95VQ91sTU g g2V8qIA8L8CoHKWikvolgdwkk AU0NYUhNLDamL51Zo5jaRzqXb 1nPMCfSOY9CYTedJKuN3GrcL1 y AjCpITTfSSVqJ8DqtDTaGCniC 973TUrnGiY4WIUjqvVdX8QqFY OimGujSrE2q9J0Cc5OCHhmdff 8 I4WdHhaxeOF+OY77NJFdKY86i RCawSGuu9wsaZm7ElHzWPThGS N6cSmqGCfad2IgLREbC35hvKL w c2U6 (more content not included)... Normal [facility] Physician Orderon 12-30-2022 Physician Order [id number]#1.00CD:1 27 Normal [facility] Procedure - Woundon 12-30-19 Procedure - Wound [id number]#1.00CD:1 27 [facility] Consent for Treatmenton 12-02 Consent for Treatment [id number]#1.00CD:12 7 [facility] Multi-Wound Charton 12-27-19 Multi-Wound Chart [id number]#1.00CD:1 27 [facility] Nursing Note - Woundon 12-27 Nursing Note - Wound [id number]#2.00CD:1 27 [facility] Consent for Treatmenton 12-02 Consent for Treatment [id number]#1.00CD:12 7 [facility] Multi-Wound Charton 12-24-19 Multi-Wound Chart [id number]#1.00CD:1 27 [facility] Nursing Note - Woundon 12-24 Nursing Note - Wound [id number]#1.00CD:1 27 [facility] Physician Orderon 12-24-2022 Physician Order [id number]#1.00CD:1 27 [facility] Procedure - Woundon 12-24-19 Procedure - Wound [id number]#1.00CD:1 27 [facility] Coding Summary.on 12-20-2022 Coding Summary. CD:[id number]:[id number] Gh0bW w+PGhlYWQ+XV1LQXVcV75ysGP exE0HO7oSCG6MFWKQDJDCIW2H RG5wsFZ9ABlpS4MbbjSb RawlaDZnCT25MSl5GPP5aJzjM YmkiW0beBMeM1a4FiRbXZ65gO 40TJdzXSBmKpY8EkJqwirhxHB y M0mzMaAjjFQbPkx+PHRhYmxlI HdpZHRoPScxMDAlJyBzdHlsZT 1qDj1rNUZkOCSwxYhrgWSiPrR j c5fjMNUkGFbtFJ6wxPalV1Mei DG9IMHjs4u1Ro49sDT+PHRkIH C0iJnxNGbme812IlUxq8kwXFU 3 dTHaDHejVZO0F50db2A6RYPdW OLtSPM8fZN8bW9oqDqwjfkgW4 FflRGfLnA4TNC6pRDkzH2nyOf n jmtxdM4hCjx+S50VXW5FZJOWP P1PZvs2H9TsXyivvSQ+PC90YW VuGV81hKRoaXDnl8afyXm6RpP w WQMsCWZ3qTtiQEsct2TtKWDuY 74hpOInj1L7PSByoGqzbJRiAr OiqXK2uX0sMUhdejavn0lkddb n Xafuw1nkio24wI54K90nCWosJ UOfETM1FRVvMCOkzMoubu7adB 9wIi8+EWitj5kiq5mfsIl2KzH w LKHabpRgjJyyENH0x3TwFi58E 4RkhWivv0HmDga7kx95uTMss0 F9aUT0WBpzWDJznV6qDIhwPbI 6 EFKjLsOyhC72tXEeXJjxJy4tu VdbhJaqYN3pTPXtexorYAOlyR 1cUIGfbLThbSruCV9bUJAlumi m a309DsEwZNC8IOSyfFZtM3Yje X3oQgBrSVSyQAFiT3IneIOhWW ptP946PNtlAmD8GYQmzzDxV3Y s AJGijHriXxS6p5S6Zx5Xb4Yif htlUPW8EVbmXILqDjFnRsFwVs Q4K3BmMun2QGItzTdgIH9wK2S h EBAjpnqhrkmifKP4PTYdXXEub L05bEMjEIaeLe6qo1H1e684IZ JpTXHeoM40Tw5nlYibTIDvxFU U vT6bhnbqk8ptlgfjMyYfBVIvI Bc4RVj3MEHycVlfHaHvZTH6Zt X0RIW7qVWhyG3mzGuvtvoigJ3 w Oyc+H85ysI1nAPP5FFJ8zlguX VQvbuKlQY38EP32F3AfUaxzeN FibGU+DGTrwiJfvUpvWU4rNuZ j y5loh0OjRDzvC8SlRAXbOAvwX kz7OPGfEOB5zCF0pI9bJREsTU wkg0Y4mYD6D3HfjfPvqw9sv1b s DFHpQQzyK77oxLAfs0X4DYTyd TF4XYMonGwtBjWjgU89Qxr+PG XziLomz5PpEijxm1dcn9uvfEd 9 QfZjTCYcvaBuqCzmQXQ3z0OeY h90I83yTUdeCEWdJOAhSIMjZB DgvPykzt3pmH9rDj5+PGNvbCB 3 vQV5wI1aWRByVxL2KAjjE725V aOhzIZbJuwhn9fvp5rrxHw3Wk VrOLYlwuTpzYgcREQ3w8AjAh3 8 J56xUYcyJKJiVNUbLMDrRRFzh Hssoi0aiC9yWs4+QO2du1nwkc 67jM87uZL+VMUqAVO2wMswRPb w OAThtZ8vKYtyTeO5TGFvHkPos Q96aYAmWAjeJs3ehEbvuVqqAS 7qGSBsmwxft404DhJbg3zsUTD w lJNoYVsuQSP8V73pn0A3XOXfL GBqLFY9qKM7uS3ndGkvttcxhF WdkXwcfnXgcVxwTKkqUYusG26 6 IHRvcDsnPlBhdGllbnQgTmFtZ Rr6Z0GdQgw6VFGgnQknFL3djB CgAFsrFu7moTbyiHazQS1wRTB p rokir572AeHbi5whFVFntRJhU GpeCFZ0N02po7U0LHLbHJAhEB Y0qHW6yA7nrOpsfmfgwYVzhEe g yzAncJhdJSotRScuJ064LAQwg IbpAmNmwbUpXKRpvET6EN01YN 27vJKjk3C4bRV1F4KqYKNfqsv t smtuxRN2RBUlTOWptY34Uq4jh AlaGp0mMKGmTOX6BEDmlJGmN7 NpiU5nWdAaZPKuGTEgV9HnkAN t RFcsQ415SFaxMzQ2BBZawiEvG 5BuFDDjkMkuJiC8m3I8Ad9ID2 D1YO50GF03sCIhd1H0wND5M7B h MGKbysijwrjfpOS4CEGmVITmd K41On5siGugPf8gXNUlCXU5NB SdiQRnP3UgbH9uDaNzCKVaKFM w T6SdqMBpETecP289CGtrTtJ6S UVcytCqE8ZzVODgiTabJhI0c4 G6Mr7UHOr6YT25UV48nHZni1B 5 oKZ3R5JkLDKrrznpocfhpXE4J PRbRLCkvX13Uy4xiBxpDb1jVX BxTON4KWBnnSUpN3BywI1vHkD j CMQvKWDlE8LtgTRpSZcvW841Y MolUtH3FYBiqrBeB7LyTUPupM nzAkZ7q1G4Br0UWJSxBR03LJA 5 gHC8KP52HH57O8CiAdnysMOoc +PHRhYmxlIHdpZHRoPScxMD YeUoDexCvuYD5nOt2sTDKwCIW v uNhxuZSaYaSir7erKWEkEDylI E6noCphS5QftAM4AHBvp6e4Ev 10B13kI5NjjCT+XMDldPF9oVG 0 jP9oZhEzBeH4LSnoO396HwAvx XOeQkgwl7rqn0ioePc5FrN7AG NeuzBvpTfoPVK2u8EtLr00K28 s IHdpZHRoPSIxNSUiIHZhbGlnb g3gyC1nTv1+WROkvEF2uWJ4iP 3tKoThCsM2EWyiP350MfJyyZS v Uiwms4kkr4kuoEk8AwFrMWAwy vSkkHkdHTB8p7SjTg74B8FqsL rhj7ToTpv8sj28nGRql5X3kHI 9 R8BxFCBfbeyqbQHspYbvGR7eC BTzubfgYOMcyG6sWNXyS3r9Lx ZqZfR4CKixY4GlhsB8BPMpbSM g LCtvLVP8G94zt4G7VKRxGILaK RF6kDM9fL7jhZlkynvyyRGttY krakSytFciOUshFTinB038IRK v yQopZDTohS8oRFTzjMStsWxvY B6xPBYknpgsWgRXKo4QLnnpSD 8XPQcAEZz3O2RxIrs8ODGpaFc s HL3uuRHyIDnnZz3wlJsotOkoE L0eJLSimbriVDIacA2zCPDagF OlhBdyYR9eJYMpfowqm710GtD x PYN9GNBwmOZlI7IrmK6pRsVyN YWvZZPzT3VqiURyEWfqF043GR dpXzK1YLEkhkEzG7GkJRKcwAl u BgF7k0E9Hm4sAt5vUN2nMIJ5M G85NN93uCBwh6B9kDA6N2EnDQ PjfznaedeotKK5BMNmZHNmmS5 7 iYGzZUdzJa1ny4J6t329AVAwV MFeoD29Ak1bbRbdXYNcjZFWzG 7qaozez5rfeiyrXlXyIJEaQHe 0 OYz8KQNhjOazVpYsPUF0DlM2A AN3qAHvkZ4ymXpzoanjbM9iRp c+MbYiDQGzavX7L2AiNwq0RNG z bYeiBO8rjHObWNgfVm5pnAiaz CukFR5jCGScfpdmPHVqpG0yXJ QxkTBuaOtkOA3kYVLjxcjvc43 0 QcDsKED5ANNvrFGbK8BajU9iZ fOlMCExDGNbP6CevCJyWEtsX4 85BAllYcS6XSCvmfGhN1MvCDS s dMjaPeJ9d4Q0Tw4SSQjiRW60W G27oTDxr4J7fIC4I4KkAWLtbs vybpukjED0MQReQKFxuZ53iCH k KAicHl6on5V3a583JFKfFIAkb R26Eg2lpMynNLNjjZNOxO1tji sxc4lugufzUiZbOHDkRJx8FNz 0 KYYukPckPaWcZJN5PcG5AMI9e WPmmL7voGrhzooeyP1bPni+T3 N1kNR3lZVvzFghiCP+DK68zx1 8 K6PwRtqdXji8HDPhXDO7zJG8l C8dYOMnQXfiw2L2nWZ8K8Ewun Xazp9ya4ijOEJoMDyeY31nyET w e9C3MKRagCD2ZXGhbBhtPzYcq G93Oyc+SYJfjJget3SyMrmiz6 bsr7abzFj8DqBlLHTtqoAbgFa u OKN4r9JkKz49I41sKUygVLVsC JTxRTYxGUKdgKrprn3ipL6pQk 8+KFWnwYM3mJH5fW3qXrViRjY 2 KKxlC064DoCaoMKjMeokl3sbs 4ygnAu0DlPwWOTxbsEcwIiaEV I5r5QjEq44M6SjhEnfe9OfGrf 0 cd76hNOxi9T0kXW6W8GcOUSeq gugpHEmkBmcEW6gIAFpnqwqCX CicJ8nFGAqE2e0KmZyVmL3OXb u O4WbkmG8NZIzwWOpGOTgnFOKy R6chshme1llqtirVvUcCGFhVX d2QZo6ELGwfVmkMdNsEGM4JaN 2 XYV3nJIbbN1erArckibysP5bB yc+IMv1o9txmEHjGE1ojEY2HG 33AT31gBAeh4R1dEB9G9ByZPY p gggnienmzUB2UGXaHURflF62U e4lnOtkGj5uUIPeTJT4JNTajK AzP4NliO1gCgBeFUEkLWOoP9L l tFCcOSwwB773TLiwJnK0FJTed aQwO9EjQYAflFwdXpR9j4D9Ho 2WHU90ES28JH34rQQsj7S2oNA 9 C3NhBODbitldrvojjWG6SLXrV LPvqB15Qu5enYzfBs3vRLGwYZ N4HYBlzUYnL1EcaP8tBhSiVUN w CPOoP0WxqEOxFZgsJ865ZHatQ tE7BOKnheUhE5OaPWDqkCyxAk M9c6W3Qd8SDn45US75UM82sCB g n4D5nAY3H7DhVXUvqyjtraikc VS4EDHfMVDksF49Mu0zvOjoQk 8pKFAiTLK2TBBkvTXmM0FxxU9 y PrTjQDIxSSUiN1NuxPZhGEvbM 796DLjbChG5EUYbffSfT8FuAR RcdEotEpK1b1Y4Rt1ANHddwal 8 K5KrWvzdrVU+VG94VBJkIU19b LSdvEPdd6vzoJx9VcXuCUBpEU G4oXmgQCdjz6IxUCRgN00ycOG w c2U6 (more content not included)... Normal [facility] Consent for Treatmenton 12-01 Consent for Treatment [id number]#1.00CD:12 7 [facility] Multi-Wound Charton 12-17-19 Multi-Wound Chart [id number]#1.00CD:1 27 [facility] Nursing Assessment - Woundon 12-17-2022 Nursing Assessment - Wound [id number]#1.00CD:1 27 [facility] Nursing Note - Woundon 12-17 Nursing Note - Wound [id number]#1.00CD:1 27 [facility] Physician Orderon 12-17-2022 Physician Order [id number]#1.00CD:1 27 [facility] Procedure - Woundon 12-17-19 Procedure - Wound [id number]#1.00CD:1 27 [facility] Progress Note - Woundon 12-01 Progress Note - Wound [id number]#1.00CD:1 27 [facility] Coding Summary.on 12-12-2022 Coding Summary. CD:[id number]:[id number] Gh0bW w+PGhlYWQ+CI6DHDXlR15reSB bqF5OW7vIZU1TJEQTTDEVGO7X KU0byYY2QMloP0CkmsGi TddoaGMyEV09LYf3OIX6hByrT WiusL7ebBWzZ2p0UaCyFL65aI 82BWbkSBTjEoB6QvJvfsxadGG y E3jsYbKprGInNgl+PHRhYmxlI HdpZHRoPScxMDAlJyBzdHlsZT 8nWr3bROOdUEThsTiteEQrGyD j v0gxYAXqFNnnTH7vbLomT6Kup JD1WCTtj6b9Cf23oMJ+PHRkIH T1jZusBScjf266BvGdx3fqSHT 3 kJOjVJprYGH0J09qx6Z1ZTZyZ OQsUNH6mBR3nN7cbNwbeizhW3 XyzSMxUyA5IRT4tZMasH9xjEf n sdzcuC5fQdw+X60HMZ6TRHLOO I6YKjk9H1PtBlpghYV+PC90YW PbJR61jULuuAYfh1xjxFm4XnF w FYOgYZA5iOepXZpcm7GlCNKwR 23fkYAip8G3RVSezVjrhBYxAi OplGI4mD1dYHpgndepf6auymg n Ahace4uofw58rT97K56bUKedZ DAoTAH7WFPuUSEoaDdlya3rbG 9wIi8+AVicf4irx3uaeFf4RoH w LATbqfXjxOprLWR4l0EzIi43Y 8VshZaca9MnDge6ur70dFFpc6 A3kPJ5HMiiGDMupN0rPYbwPzZ 6 IQCoLjHtyY73pDNhUBqxKw0ui OrfvEzzCL3mSTEccffmEFCuiG 8oEQYxiNGowIsuDL1xKYGvvul m q330CcTtDTC7YBKhvVKzO7Waq H3hGqChSOXdYEVzK5FdfFEbNU nxJ479ERbyCuK9XYBlevBjN2T s TOYqvUnnPeW6m8G9Gp4Gv7Iod zphXRZ2VQxaNUAeYaDiMkLeNj N7G0LxUsr3VCSupBseHS4gM7E h TRKgshjedwdbsOK6GSXoERTzy W20aNHfLJyfNn3dv4N0d193YS VtZTKohC09Es4usYbpHAUadLM U hH1tknwxs8wcmpqhFeDwBRTpY Od8GAf9XLNumLqrAeWtNVM1Ed Q9BBB0aCKnpZ1nmYawcybqpY3 w Oyc+K78scX9iLZY9TSS0qlwqN IWoyvSkZS91HT58L1HzRdkkvE FibGU+QOEmnkCmhQbdTV7wWyR j l1gbe8MdJGgbI8WnJGWrFDjyQ ca7OAGoDVV5hLE7zG1oSHPsAW mbf7Q8eRO8A6QaweSgth7ug9k s KNZmCObbE91pbCUop8K2ELIlt TB0GJGifWpqByEghT69Shs+PG RmhNxxh5OlZjmdj5lmw8yhrGa 9 MjXbUCRyckQptGkcXCV8t7XxI y38U08oBNyiJXCzQYZqZQUaXN SmeTnftz7oqW0qKj4+PGNvbCB 3 hVV4eY4yFZWcIsV3DKqdU476Y jMhyNHsWngqr2eaq3ekjCs3Oi SjBXZyirMikYrvJPB2b8OoAs9 8 X46mAIrkMXXlVZCvPIGcELKty Vondk3vsW5iJy3+LS1ud5oaaz 01qK03pMX+SFWmRWB4xUgpNVq w KVEttO9pNCmpRmK3KVEvOyChe O34mKHlCKwaCf8yiEgaoJsbDN 8lQQPghtbaa092TvEox7mlSSD w xTSmQPdjTLO6S81eb9M9LYTjR XAdDTR5yLR6iB3usNvhssslmY EmbJushhDkwNsoQVzaISqsT79 6 IHRvcDsnPlBhdGllbnQgTmFtZ Ys6X1TyVng2OXBilEfaBV9sqK MpJIomDt2kkDuwaKgkMD7yRLK p chocf912ZjBwl8crIYHsxOCzE MnnYAP2F07hq8M8KTJbJHJsRS D6yIP5wJ4lnZvwyfpqbMHkkKh g quMjsEytDKtbVDvdV297DUSwq EpjZdAthiMqPHQsoQX3GO13BY 40vEUfi6Z2aVN2C1WxIDFnesw t obzudAU0QDYuAMHrmA65Wt7yz CvrTb9gVFXeVDW8JLCquMPnJ6 ZniO4lLaZtTAGeOCMdS3QcjUY t KPzrR295QWewXzT6QJEiafTrX 5LtRQFgkRgwLuO1w8V9Ok1WH1 T5RE53ZI82fCYqn9Z4rLU8M1P h MQSjfaruxmlunBG2UQIzHIYby V79Ls4weQryPf9vSASdDBK7DD DrnRDtZ3FupW2dGrOvNMKfUVH w Y0NkjHDrREuoM066FIvpSoR0X JNunhQpU1GfNVOqdNjbCsX3d0 S2Uk6JGTw6TC02EP87iSKcq6J 5 xAF8L5QuHCOekkkligplkBR1R BOnYUDgsG99Tk4knQzcLh1vBJ VaAPO8VINyrDEaI0PecN0vLhR j SAEwGRWnH9LeuKGuMUbhI816M TdvOuC2IFTibqJxJ2EfFTCzjS rpEeD1z0X9Td8WEWHqWO99ZRH 5 sUZ7FZ29IY81B8RxCpnuiVUyg +PHRhYmxlIHdpZHRoPScxMD BkWqUwnZfbFP3rOl5fJCPpJIN v oFvssSSmWjCil6ctDVIaPVcvF N3mxZflR4UfaWB6YRWyy9a5Cw 60K85lL4PbhJQ+WEBgaTQ5iLP 0 wE1iFzYhVeH7EVzfO828QgZkb TMhYcsxq1med1hyoZt9DeP9QP YxmjKncFwsUZP4u6PgIh80I38 s IHdpZHRoPSIxNSUiIHZhbGlnb z4qvK8jJx7+QMHkiBX7aBB9xK 8hLhGsShC8JXesQ994BdXerVI v Krxfj6fkv7byvCw1GhQmOOIoc qGhmJocMRK4o8LuEi03J1SfuF yas2WiWib4zv80oZJua7I8gXW 9 D6VfIATkvfhdkSNjoXzjTX2pO JPtjbqwOOAhmH9wZFDoH5e5Lq DiYkH1SXmcS8JjqvL9SYZdeHG g YAtaGNE0C84os2C4YDWpPHKnA LP8cSX0nU6ajTskptqgnIFxfF ixaaXfsCcbOOuhDVssR911VBO v lQmnUUAbyC6eJRKrfDIxpBzfZ B1oIBRryqjlFjADGc9NDmviCK 8YLEaEGYf4N7TwDfm9PHWfmVf s NO0laNRpDZevWc6bfGgthAqxB Q4oDCQzniupCAIefA0mQSOquO WpoIrpCB4pEPWcmcsnu293WvP x ZFG4FYXqrUJbY0ZgkZ4cJgFsI AYhJIHkL6TjzARgBIjtA446KD uqQsM5PJUmyyDzM2JoVNHfsRm u RjD8i5A7Xa2dXg2wWV9rJGG0X O06BN06dXUjh3B9eZN1G3IqJJ AyvaehzvqjrHK3QNIuPWYxdX9 7 cXQaKPorVo5mt1P5u134ULAuH BMrgT41Wx9kxOjkPMVukLPTyH 0jqdaqp3qtvamrClEqQFMpRIz 0 RLb7FZVzpOlbToDnYJW9RpQ9D IG8lNTfxJ5mlFugpsuknA9nTd c+DwIxQMTedfO9Y8HsOsv8TMR z vFnjWU9bpBHqSWduOa1icWxwq EahEK3kJJQywrczVKTgkD7kGF ClwVEjuKxuMU0kFQYqtrnub88 0 EjOsWGW2TXEciSMqI1IfqD3fM yQqKBFrHGYcE7IieNDuAIvlB9 56MDdbWiV1PBGxngDnT5LkJCL s cEvtXwB9k7J7Tv3PZBehVF23J A96bQQdy6U0bVP9O0HhDYJosg xwnvraqNB9HZRkDEHcpT20cFU k ENbyBn1vu0X2n913NSPaTAFts S01Ey9lcCbkBYVjgCVSwO0jnh yvu4axybgpXtIsHPTlTPz9CQq 0 BQFxtDelNoIfDFJ0GbC4TIV5k LTsxC7kkLagumyejH8jWpb+T3 D5uPQ3dYHdxSepjWX+WA35mq3 8 F7WrZdzcBas6GJYoCVQ6dTF1y J5gBOGbJZqpm9J4eLD8I7Bcsg Tcit8bv5xdOTFyWWebW34otNO w z8F4UBSnlJS5PCLgjQayTdAyj G93Oyc+MZWyhIyeo1VnEowuu6 mps8tdwKg1XjXvWSAmwpIqjRa u CTI5a2NdNt02I66eFMfpUDGvG YFkPLTpHTAvkFecbn5qhI1aNr 8+QTPtcSI9pKK0tA0iLvJhPnF 2 DNkaE249OpKxpXFeWnxoe0blf 6tsiJl9LzVsCQPzolVxuKetSX H1g9PzCo82L5HpgDbii4DlGql 0 oy24bLAmv6M3jNN5Q6LbIVVzm vcdkWDprAbsWA6uFNXxikjfMO IqnC6cJWFsL5i0HoGkTpP4ZOv u M6LncyW8YJXcrQUtQIXofQVQl E4nxvhjs6bpxqhrJfZyLWYoHG x4IUy3FGYdbMecObSsZMW7XuP 2 IIR8oOJerB7cmTyhtipgtQ6rQ yc+BEj7s0ucoUXjNZ4okRJ7HP 77TG68fSSih5A4sXD9B5TtRGZ p tdqjxtmzeFS3FVUqNLWhaO31C s6umQbqEz1gFXTpPSI1EEAnnA AgT9XgwJ4iKwQuZWSjDZXnQ3Y l aSAvLFcyG575HFmbFsI4RDWdx fFxU2QzCYDnnJgxNbW7p1O4Mq 4XXW03LI38HB66lLHjh0X2uBF 9 F2NiXIGhyyucfgmcuJD7KCHqQ OUitY58Bs9bgStfNz1vRJHySQ F7PFAciTJuY2XxzT2pZrYlOLZ w PXQuT1AlySZbLHfiD883XLsvE qJ4MLPcraCwJ2HuMAZxrOcsLx H7q1E7Js4UQl09TO54II92iFE g w1R7dLD2P7VkMMEvylrmlkcyg TO7PGOqBGBhtL95Go9ufPdjGm 5eVQQfEJO9HCSjqBAvI3QudC3 y WoGgNOHeWQIyT6CnpGYiYItmR 347BWkkBcD9ROFwpxRuZ9PyXC QklGpbJsL4s4H0Gb6UXNvbxzb 8 D8OdPzceuOU+JH29HADbCD53c QJuiAIxf2njvFl1LzBkQKNeTU L0fGnbQOstr7VuFTClT28xaMO w c2U6 (more content not included)... [facility] Consent for Treatmenton 12-01 Consent for Treatment [id number]#1.00CD:12 7 [facility] Multi-Wound Charton 12-10-19 Multi-Wound Chart [id number]#1.00CD:1 27 Normal [facility] Nursing Note - Woundon 12-10 Nursing Note - Wound [id number]#1.00CD:1 27 Normal [facility] Physician Orderon 12-10-2022 Physician Order [id number]#1.00CD:1 27 Normal [facility] Procedure - Woundon 12-10-19 Procedure - Wound [id number]#1.00CD:1 27 Normal [facility] Nursing Note - Woundon 12-09 Nursing Note - Wound [id number]#2.00CD:1 27 [facility] Coding Summary.on 12-04-2022 Coding Summary. CD:526134JA:[id number] Gh0bW w+PGhlYWQ+IJ2KNYBkB90pnKY hzK8RE1mAFG6XGJDKCWYKXK0U DT9ywRX9OEapG2RqqtOg BjisiFIvOS83VMr3HCB3dStxC VusiI2gqCTfG5r7WfAdBK24vZ 05STitAXTrCnY7IyLhoxjiaZR y U4ksCmWxdYUiJfr+PHRhYmxlI HdpZHRoPScxMDAlJyBzdHlsZT 5zGj7xANDjNHTutHykkCAgWsY j t0huEUZlRKlfCL9etEdkX1Axs UU2NPOla7z3Dh35zDF+PHRkIH J8fSuhUSwgj870CiHrn7ccOZU 3 rXPmHShoMWL3L50ye0O2MSGmA BUjEWU9iUK4mH1yzWptgfggL0 KbkBXqXoH7ITV7eZOvzV9mhYx n cnexuK8vRdf+A75ROH8VXWZYK F8MUhn2C9YyKgknmFO+PC90YW WwOI42rSIgfQJcm3unhQp9YdC w VDSoLWW6dLomBHbqy5FnVPWkY 43xcGVyk6O7TSBegLrcpMEfDr CbvSD2qM9xHUeeamrjy8uepbt n Xtqki4cyrm66cJ62Y59qVKcxG CJpDIN3OOAlNJKhxQjrxx7lxM 9wIi8+NUlup4djj8dgfYt3PfT w ATKvnmTguKyaOVP9i8BjMq25B 3ItwYxyd7UvTen1wf26eAIif3 W5cSB9JRjrTREcuU2wERzcZhV 6 CZCaTfJfsA51aOVyWVplYu6ro LtquKcoZA6tCPFoiqujMNRwaC 7cLWZpcWFnyVdiOW5zQYLpqty m v306AhCrJEA1XSIvhIJiF3Mqt B1bGuPdRSSgMGCgH2GtvFMwKJ czW003NSdxJlE1WOQxygEkS6H s ULVtgPtoXsN1a5T6Wn7Us4Tlv qkfWHG7DQxsDNIeLmS9LgYhKj K1T9RaJny9KXMloJkoTD5jG0R h VIVibcfoimydvFY3SRPzYHQzz J82zCRmOMseGj0lm1C7j022AH PbUKJavM50Sp4tiXnyEGUtqQF U pH6ktcget5legjpwMdZnDFHsF Fi9TOn5SXRbnDnsPrXbWLI4En K3MFQ3jJFxoJ9wbDyxljoakD1 w Oyc+E87poT1dUJL6UOG6tcvjL OEkraUkTE06MP66H7NxBurqmV FibGU+NIDfqdWnvPbbXD8iJiL j o4rbl4KgIVgiT4CqYLZyEYypZ ey3WLIhIDP0uTQ5gO1kMSBsUH puv9A4sEX6X5LcfvElfj3rk9i s FXAaJJlyN76vjRTtc1Q9FLOtj FC4MPUlfLoaQoFxkT83Txc+PG VdnYski0XzQugjp8ymg7tuwUm 9 YmUoKKAiyrLfeDqeGGS1a5GaT j34R16mKHvrZIOfBDKjVXKhPH HegUehpf8cnZ2kOg7+PGNvbCB 3 pAP8uD2wIFXcAtJ8RObhN027U wMxnUIzWmlhf1icu1zogZo4Jb GeGDDaxyOclEpsLAO5g6QoHf1 8 P75dLBxtVEJnKXEcUKEwLDUfn Lezre3onO0wTc0+PB1wi1rdsr 19hY83mXR+JEAhIJZ2sVqoMLb w GZVrqC4dMGerNpG6LZRxXsHat C22hOPpSFndBr9dnMnepAtnEL 4uCLQglyjhf521OkYze5daVSR w wHDiBQugGIZ2Y31hl0I2RAXqI ZGaBBP3eSH1oL7tnHzauwrpgB QjvBqfurXpkOcaDHtcYRepG78 6 IHRvcDsnPlBhdGllbnQgTmFtZ Gr0X2QvHdm8PMFujPdyCJ5nyA PcVTaxXw5ynWopvIqaFG2tMHM p xvfwh092UsHej8tpNZMcyUXlY SeiJPF1A15mf3Q9AQJmSAArRD S4rHN3bX1obPaidqrmeUEclJi g yiBdbTvjYLpqGVikZ989NSIpg SfkYgUngeQgOUIjwJD1ST30SY 33lGHej1S0sHU4F8QpOVCnswv t zlzzmSU2YFQfLRUapF25Fa7hy TbrCm2eDWHlHRA9RFYmxDTpR8 DnoR6qDaCaTEFiEBIpQ7PtxWB t VTodC060VEiwUaX9WZAzpzLgN 1MtPSTiyIcxCfA6w6H1Fw8NZ7 W1IL73OA15rERav4X9xKO1X7G h VBEwvccenljoiRR8VCBwHHGcd Y52Rf9apYroUy8aFXVxVNI1MT IaeUChR9HrdI4hGkDrIPBdYXY w N3PreIJzTWsgN708IXbjDgO4L UMjcvWkS8QnNPLlfLkfZxR4e6 S4Ir6OGQe1EI35YB65vJTyj0P 5 eNS0V7QfZBNjpejxpkbggPI6C FWcZNQcsW70Kw0fyXpkTj0uNT HuONO6EVDkeCVmC9PreQ1uSjF j GRCtUHKuA8DwsKZeOTsbB963I GwtJxO9AMCcewGgG0FrFGQtfE trNgO6c6T7Ua7HHPHcAG21EQU 5 lIU6FD73OJ35F4ZdVuowkFYfp +PHRhYmxlIHdpZHRoPScxMD GqGkChlDqyBB7iMy4cQNHxUBB v dRunjBLeEtOvi1saXZBiRCcrT M8aeKlpW0CfmPZ4UTTlb1g7Fs 24K00pA1JscFY+JARqlVV0aAW 0 nM5sJhSsWlH0RCcqB640LeBcp PIbVtxhf7hop4ibqSe6SsH5CS ZnqvXarRxcRJY9r7PkWc91Z29 s IHdpZHRoPSIxNSUiIHZhbGlnb j8drS5hYo7+IFVvpJX3jYL0mO 2wCrWoIpT0TEpnD353GsLrmIS v Mlugy3ezh8uduOy7AfArDUAbi fZziHpeGVK8m0OfQl02S6LuyI agh8OxSad5hr44oRSwu1Y5nEB 9 C9IrMHKwklxqsBJsmWvpKJ3bM IAzaqkvEYVisU9vVDBbA4v1Zl YeUrR8TGcaD6LkxiH8OZNiaEQ g BBbsORH8M26yx3S0GWLrZNEdI XM9yKC3rS1zbKjiieupqSPtlM fxupKcaLnmGHeiQWkpX335LSO v wRdxHWBdwF1oIEFgnSMukRapO C7qOYSfrnrqNkHEWi2HFyldRG 9ZUMwPIPu5T1NvSkc0KMIxgLb s DX1geVHsQTflMp9lsFbvzKkpX Q4iNXXrwbtoSJXzoZ1lKEOmgN JwbDamDG8fXVTwfazpy139IfK x JBB9DZXskZRxL8FqzG2oLlPmY VLvPWQkC5NguSMcLGxwG798JI wuUaX0LLCqvfUuF6LoSXYooCz u ImX0n7G6Zx1xEf0zYU3tWAN0S S75ZL92lHRnn1J2fKG8C2QfXW SiifhewpgxuOH1WVTbYXRbzD2 7 oRXpGUhmOv0zb7X1q013BRGzZ QOwuP93Wd1buDidCOAxjFPThB 0osuvle4ipjjdlEpUdDLNmNDy 0 RCt7KMZaoPokTqRsZNX7NmA1S DD6tWGybH7doGlkypuckY9qCf c+JwSwACYwvqC3I7XcHgh4OPE z dCmbKK3csVXlQDatNz2xkEgam WhuCJ7yTGWfiaenIYGjsH3iDR QcpSIoiRjjLV2zJZHjxhrix87 0 SoOlFUK3XWMsnNHiZ1AodZ9mA tVbULDrKOOuF1AfuDZuNQuuS3 36BKbeEaG9PHAhqaDbN2GhVMQ s zHmsFdZ7k9C1Dq5YDRyoVT11R I39zLWbx4I5nWU2J5PkEWBngv frsctzjWZ1MUYaZPUbuD49bEZ k KYioIb1bd0M9u317LGChRUMaj S53Ix3vkLwcCMWokQOMlT8yjs pio7sseccwLjZyRAOeWVg7OLn 0 SZRmhGdaDeNdYGM7HiM1TTA2p HZknZ0wnMbbxabbtL1cEjx+T3 V9jMF2fCShuTayyAM+GJ97rc5 8 C5TxNvqnOwo2HGMtSCM3nNS8o Y0jEUSgNOcbz2P2tKM3W5Gxit Vlyd4vn9eeBGSyFZnyM25rzQD w q7M9BXKtjVV2ARFuyGpdOdToi G93Oyc+RFKusHkas2AnQmppx1 hry0wsuNq0IbSfQLGbbxAliYq u TUH9s5LhQu46O73gQBehMLGzN HXoAJLbMYBrwHymgc4mpO7rWn 8+IJPemTP6sHJ1rI9xDtQgRjF 2 YLheZ282TzExoBUxThmvo1nsn 0vjxHg0NdJdFPQlkxCbhGtbSG G8i3MyKk72X8OmpVlkh2ZfArf 0 pq48nZFgc2Z2sZS8Y7SyQORhj uoebSShySmpJT8jCMUydowgRZ EbnS9rYSXdX3p2OjLfYdF7MUl u V9ZjvcD1HBSieYNrSARbkRSUy X9yncuij4jwwfnyJnCuTBEeHJ k5UDm8CQOiaObcPpZxFUQ6PzP 2 SXY3wVQwoO2okWvwbrulcL7vW yc+HQh8w2uvtSUxRF5xoJW2DN 52JA89jGMds8E8pYF1O9WsGWW p elqpkgifjAS5WPYhCJMnwZ46K t4gzBjhCo0vWUChKOP0GKOrrT HvF3SuxQ2bLeDlTLBmINKeR9S l zOQqTKfbP827MIqbMhS8NQNcc qHtJ2EoIGBqfTpnCmT0h9Q6Lk 2DUF53XJ89CS38pGUvx3V8cDU 9 O1UqGDVtnfyypyjrrJG1NLVmE GRtqE72Jp3viVjrSu2qYICiJQ R4ZCZmsHOaH5RwpC7nKhEbGRW w FENdU4NwiSVxRFzoJ484DKywJ hF1DSTsepBuV0YrIWZfuHjeTv E2o6I6Ga2DYq72UR36CG55iXR g b2D0vLB8Q6GsSWDqgqaktyekd OH7XSAsRVQzsY61Hf6seUzfSf 9bDNXzMOG4EJAswFAtB5EsoY5 y KzNaOICkOJSkI1UbyHXuAAwgM 018EWqiJmR1SMTtosFgM3XfDJ RaoMssHhD0k2P4Xm4PVLwdlzv 8 J3KeHzmxhGW+YK92CFBxEI73z JYoqMSsa9ebqLa7CjImATNlQF T0dGhlWZigh9NoTNGaO33rxDV w c2U6 (more content not included)... Normal [facility] Consent for Procedure/Surger yon 12-04-2022 Consent for Procedure/Surgery [id number]#1.00CD: 127 Normal [facility] Consent for Procedure/Surgery [id number]#1.00CD: 127 [facility] Consent to Photographon Consent to Photograph [id number]#1.00CD: 127 [facility] Correspondence - Woundon Correspondence - Wound [id number]#1.00CD: 127 [facility] Correspondence - Wound [id number]#1.00CD: 127 [facility] Correspondence - Wound [id number]#1.00CD: 127 [facility] HIPAA Forms Officeon 023 HIPAA Forms Office [id number]#1.00CD: 127 [facility] Nursing Assessment - Woundon 12-04-2022 Nursing Assessment - Wound [id number]#1.00CD:1 27 [facility] Physician Orderon 12-04-2022 Physician Order [id number]#1.00CD:1 27 [facility] Procedure - Woundon 12-04-19 Procedure - Wound [id number]#1.00CD:1 27 [facility] Progress Note - Woundon Progress Note - Wound [id number]:1 27 [facility] Consent for Treatmenton Consent for Treatment [id number]#1.00CD:12 7 [facility] Multi-Wound Charton 12-03-19 Multi-Wound Chart [id number]#1.00CD:1 27 [facility] Correspondence - Woundon Correspondence - Wound [id number]:12 7 [facility] Progress Noteson 07-20-2022 Regulatory Leader Authentication Interface Message Text EMERGENCY TRIAGE, TREAT AND TRANSPORT (ET3) DOCUMENTATION OF TELEHEALTH VISIT Date / Time: 07/18/2022 / 1430 Name: Yousif Aguilar : 1945 SSN: [id number] EMS Agency: [facility] [] Verbal consent obtained [] Implied [...] Completed by: Wilfrid Haley MD Normal [employer] Coding Summary.on 02-19-2019 Coding Summary. CODING DATE: [address] [facility] STATUS: Home (Routine DC) PAYOR: [...] elsewhere classified E78.00 Pure hypercholesterolemia, unspecified Z79.01 residential (current) use of anticoagulants Z86.718 Personal history [...] Date Saved: 02/19/2019 01:52 pm Normal [facility] CNOVon 09-03-2017 CNOV Office Visit (VASSFT) DANIAJEF Tima Choi ([id number]) 1945 MDate Time Provider Obibwqlwxj79/4/17 10:00 AM NEO ROCHA During your visit today, we recorded the following information about you: Pulse Blood pressure Weight 73/minute 142/72 142.9 kgNeo Rocha MD 09/03/2017 10:08 AM [facility] Institute[facility] and Rosie Cantu Department of Cardiovascular MedicineOUTPATIENT VISIT DATE September 03, 2017OUTPATIENT VISIT TYPEESTABLISHEDPRCAPE FEAR VALLEY BLADEN COUNTY HOSPITALRY CARE PHYSICIAN:Abbie Gtz III, DO257 PAULO SALGUERO [address] [place] [id number]: [phone]: [phone] PHYSICIANAbbie Gtz III, DO257 Paulo Salguero [facility] [id number] COMPLAINT:No chief complaint on file.HISTORY OF PRESENT [...] PE and DVT, 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 CT Chest +[id number] DUS LE +Rt femoral and popliteal [id number] DUS LE +Lt popliteal DVTPAST MEDICAL HISTORYDiagnosis [...] kg (315 lb) SpO2 94% BMI 43.93 kg/b2Cpnwbrv appearance: alert and cooperative individual, in no [...] elevation.Neo Rocha, MDReferring Provider: ABBIE GTZ III [[id number]]Allergies As of Date: 09/03/2017 Noted Allergy ReactionSHELLFISH [...] to improve.Follow-up and Disposition History RecordedEncounter Number: [id number] Status:Closed by NEO ROCHA MD on 09/03/17 Normal [facility] PROGRESSon 09-03-2017 PROGRESS HNO ID: [id number] thor: Neo RochaSerrayase: (none)Author Type: PhysicianType: Progress NotesFiled: 09/03/2017 10:08 AMNote Text:[facility]oirRobnew [facility] and [facility] Department of Cardiovascular MedicineOUTPATIENT VISIT DATE September 03, 2017OUTPATIENT VISIT TYPEESTABLISHEDPRIMARY CARE PHYSICIAN:Abbie Gtz III, DO257 [facility]ARE[facility]IDANC ALDO SALGUERO [address] [place] [id number]: [phone]: [phone] PHYSICIANAbbie Gtz III, DO257 Wisner Aldo Salguero [facility] [id number] COMPLAINT:No chief complaint on file.HISTORY OF PRESENT [...] PE and DVT, 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 CT Chest +[id number] DUS LE +Rt femoral and popliteal [id number] DUS LE +Lt popliteal DVTPAST MEDICAL HISTORYDiagnosis [...] kg (315 lb) SpO2 94% BMI 43.93 kg/c0Gkexweg appearance: alert and cooperative individual, in no [...] skin moisturizer, leg elevation.Neo Rocha MD Normal [facility] Vital Signs Date Time Vital Sign Value Performing Clinician Facility 10-28-2023 17:16-0500 Heart rate 69 /min Theresa Villalpando [facility] 10-28-2023 17:16-0500 SaO2% (BldA) [Mass fraction] 92 % Theresa Pocos [facility] 10-28-2023 17:16-0500 Diastolic blood pressure 77 mm[Hg] Theresa Pocos [facility] 10-28-2023 17:16-0500 Mean blood pressure 100 mm[Hg] Theresa Pocos [facility] 10-28-2023 17:16-0500 Systolic blood pressure 145 mm[Hg] Theresa Pocos [facility] 10-28-2023 17:16-0500 Respiratory rate 16 /min Theresa Pocos [facility] 10-28-2023 16:09-0500 Heart rate 59 /min Theresa Pocos [facility] 10-28-2023 16:09-0500 SaO2% (BldA) [Mass fraction] 95 % Theresa Pocos [facility] 10-28-2023 16:09-0500 Diastolic blood pressure 82 mm[Hg] Theresa Pocos [facility] 10-28-2023 16:09-0500 Mean blood pressure 95 mm[Hg] Theresa Pocos [facility] 10-28-2023 16:09-0500 Systolic blood pressure 121 mm[Hg] Theresa Pocos [facility] 10-28-2023 16:08-0500 Respiratory rate 16 /min Theresa Pocos [facility] 10-28-2023 15:58-0500 Blood Pressure Location Theresa Pocos [facility] 10-28-2023 15:58-0500 Body temperature 96.98 [degF] Theresa Pocos [facility] 10-28-2023 15:58-0500 Diastolic blood pressure 68 mm[Hg] Theresa Pocos [facility] 10-28-2023 15:58-0500 Heart rate 64 /min Theresa Pocos [facility] 10-28-2023 15:58-0500 Mean blood pressure 88 mm[Hg] Theresa Pocos [facility] 10-28-2023 15:58-0500 Respiratory rate 18 /min Theresa Poc[facility] 10-28-2023 15:58-0500 SaO2% (BldA) [Mass fraction] 96 % Theresa Pocos [facility] 10-28-2023 15:58-0500 Systolic blood pressure 127 mm[Hg] Theresa Pocos [facility] 10-28-2023 15:46-0500 Blood Pressure Location Thereas Pocos [facility] 10-28-2023 15:46-0500 Mean blood pressure 86 mm[Hg] Theresa Pocos [facility] 10-28-2023 15:46-0500 Respiratory rate 14 /min Theresa [facility]oc[facility] 10-28-2023 15:41-0500 Blood Pressure Location Theresa Pocos [facility] 10-28-2023 15:41-0500 Mean blood pressure 95 mm[Hg] Theresa Pocos [facility] 10-28-2023 15:41-0500 Respiratory rate 18 /min Theresa Poc[facility] 10-28-2023 15:31-0500 Body temperature 96.98 [degF] Theresa Pocos [facility] 10-28-2023 11:04-0500 Heart rate 80 /min Theresa Pocos [facility] 10-28-2023 11:02-0500 Respiratory rate 20 /min Theresa Pocos [facility] 10-28-2023 11:02-0500 Body temperature 97.7 [degF] Theresa Pocos [facility] 10-28-2023 11:02-0500 Mean blood pressure 104 mm[Hg] Theresa Pocos [facility] 10-22-2023 12:34-0500 Heart rate 80 /min Theresa Pocos [facility] 10-22-2023 12:34-0500 SaO2% (BldA) [Mass fraction] 94 % Theresa Pocos [facility] 10-22-2023 12:34-0500 Diastolic blood pressure 65 mm[Hg] Theresa Pocos [facility] 10-22-2023 12:34-0500 Mean blood pressure 86 mm[Hg] Theresa Pocos [facility] 10-22-2023 12:34-0500 Systolic blood pressure 130 mm[Hg] Theresa Pocos [facility] 10-22-2023 12:34-0500 Body temperature 97.7 [degF] Theresa Pocos [facility] 10-22-2023 12:34-0500 Respiratory rate 18 /min Theresa Pocos [facility] 10-17-2023 22:14-0500 Diastolic blood pressure 94 mm[Hg] Kaylinn Dokken [facility] 10-17-2023 22:14-0500 Heart rate 82 /min Kaylinn Dokken [facility] 10-17-2023 22:14-0500 Mean blood pressure 121 mm[Hg] Kaylinn Dokken [facility] 10-17-2023 22:14-0500 Respiratory rate 18 /min Kaylinn Dokken [facility] 10-17-2023 22:14-0500 SaO2% (BldA) [Mass fraction] 96 % Kaylinn Dokken [facility] 10-17-2023 22:14-0500 Systolic blood pressure 174 mm[Hg] Kaylinn Dokken [facility] 10-17-2023 21:29-0500 Body temperature 97.7 [degF] Kaylinn Dokken [facility] 10-17-2023 21:29-0500 Diastolic blood pressure 75 mm[Hg] Kaylinn Dokken [facility] 10-17-2023 21:29-0500 Heart rate 80 /min Kaylinn Dokken [facility] 10-17-2023 21:29-0500 Respiratory rate 18 /min Kaylinn Dokken [facility] 10-17-2023 21:29-0500 SaO2% (BldA) [Mass fraction] 98 % Kaylinn Dokken [facility] 10-17-2023 21:29-0500 Systolic blood pressure 162 mm[Hg] Kaylinn Dokken [facility] 10-17-2023 21:14-0500 Body temperature 97.7 [degF] Kaylinn Dokken [facility] 10-17-2023 21:14-0500 Diastolic blood pressure 78 mm[Hg] Bryce Funk [facility] 10-17-2023 21:14-0500 Heart rate 83 /min Bryce Funk [facility] 10-17-2023 21:14-0500 Respiratory rate 18 /min Bryce Funk [facility] 10-17-2023 21:14-0500 SaO2% (BldA) [Mass fraction] 99 % Chantelchapis Funk [facility] 10-17-2023 21:14-0500 Systolic blood pressure 158 mm[Hg] moshe Escalanteen [facility] 02-17-2023 11:00-0400 Body height 177.8 cm Perlita Reno Other [employer] [facility] [employer] Other 02-17-2023 11:00-0400 Body mass index (BMI) [Ratio] 38.31 kg/m2 Perlita Reno Other [employer] Other 02-17-2023 11:00-0400 Body temperature 97.8 [degF] Perlita Reno Other [employer] Other 02-17-2023 11:00-0400 Body weight 121.11 kg Perlita Reno Other [employer] Other 02-17-2023 11:00-0400 Diastolic blood pressure 787 mm[Hg] Perlita Reno Other [employer] Other 02-17-2023 11:00-0400 SaO2% (BldA) [Mass fraction] 97 % Perlita Reno Other [facility] [employer] Other 02-17-2023 11:00-0400 Systolic blood pressure 130 mm[Hg] Perlita Reno Other [employer] [facility] [employer] Other 07-18-2022 14:30-0400 Diastolic blood pressure 65 mm[Hg] Et3 [facility] 07-18-2022 14:30-0400 Heart rate 83 /min [facility] 07-18-2022 14:30-0400 Respiratory rate 18 /min [facility] 07-18-2022 14:30-0400 Systolic blood pressure 117 mm[Hg] [facility] 07-05-2022 13:39-0400 Diastolic blood pressure 67 mm[Hg] [facility] 07-05-2022 13:39-0400 Heart rate 71 /min [facility] 07-05-2022 13:39-0400 Mean blood pressure 88 mm[Hg] [facility] 07-05-2022 13:39-0400 Respiratory rate 18 /min [facility] 07-05-2022 13:39-0400 SaO2% (BldA) [Mass fraction] 99 % [facility] 07-05-2022 13:39-0400 Systolic blood pressure 130 mm[Hg] [facility] 07-05-2022 13:00-0400 Diastolic blood pressure 66 mm[Hg] [facility] 07-05-2022 13:00-0400 Heart rate 69 /min [facility] 07-05-2022 13:00-0400 Mean blood pressure 89 mm[Hg] [facility] 07-05-2022 13:00-0400 SaO2% (BldA) [Mass fraction] 97 % [facility] 07-05-2022 13:00-0400 Systolic blood pressure 135 mm[Hg] [facility] 07-05-2022 12:30-0400 Diastolic blood pressure 63 mm[Hg] [facility] 07-05-2022 12:30-0400 Heart rate 72 /min [facility] 07-05-2022 12:30-0400 Mean blood pressure 84 mm[Hg] [facility] 07-05-2022 12:30-0400 Respiratory rate 18 /min [facility] 07-05-2022 12:30-0400 SaO2% (BldA) [Mass fraction] 93 % [facility] 07-05-2022 12:30-0400 Systolic blood pressure 126 mm[Hg] [facility] 07-05-2022 12:05-0400 Heart rate 76 /min [facility] 07-05-2022 11:50-0400 Body temperature 98.24 [degF] [facility] 07-05-2022 11:50-0400 Heart rate 81 /min [facility] 03-21-2022 08:18-0400 Blood Pressure Location Mitali Carine [facility] 03-21-2022 08:18-0400 Body temperature 97.34 [degF] Mitali Hawk [facility] 03-21-2022 08:18-0400 Diastolic blood pressure 74 mm[Hg] Mitali Hawk [facility] 03-21-2022 08:18-0400 Heart rate 78 /min Mitali Hawk [facility] 03-21-2022 08:18-0400 SaO2% (BldA) [Mass fraction] 96 % Mitali Carine [facility] 03-21-2022 08:18-0400 Systolic blood pressure 122 mm[Hg] Mitali Hawk [facility] Encounters Encounter Date Encounter Type Care Provider Facility Start: 12-22-2023 End: 12-22-2023 ambulatory ADDI POCOS Not Available Start: 11-28-2023 End: 11-28-2023 ambulatory ADDI POCOS Not Available Start: 11-10-2023 End: 11-10-2023 ambulatory ADDI POCOS Not Available Start: 10-28-2023 End: 10-28-2023 ambulatory Addi Pocos [facility] Start: 10-28-2023 End: 10-28-2023 Admission to same day [place] Addi Pocos [facility] Start: 10-27-2023 End: 10-28-2023 ambulatory Abbie Gtz [facility] Start: 10-27-2023 End: 10-27-2023 Patient encounter procedure Abbie Gtz III [facility] Start: 10-22-2023 End: 10-23-2023 ambulatory Addi Pocos Facility[facility] Start: 10-22-2023 End: 10-22-2023 Patient encounter procedure Addi Pocos [facility] Start: 10-20-2023 End: 10-20-2023 ambulatory ADDI POCOS Not Available Start: 10-17-2023 End: 10-18-2023 Emergency department patient visit Bryce Funk [facility] Start: 10-17-2023 End: 10-17-2023 Emergency department patient visit Bryce Funk [facility] Start: 08-05-2023 End: 08-06-2023 ambulatory Facundo D Dolce Facility:[facility] Start: 07-29-2023 End: 07-30-2023 ambulatory Facundo D Dolce [facility] Start: 07-29-2023 End: 07-29-2023 Patient encounter procedure Facundo Hoffman [facility] Start: 07-22-2023 End: 07-23-2023 ambulatory Facundo D Dolce [facility] Start: 07-14-2023 End: 07-15-2023 ambulatory Facundo D Dolce [facility] Start: 07-14-2023 End: 07-15-2023 Patient encounter procedure Facundo Tima Hoffman [facility] Start: 07-08-2023 End: 07-09-2023 ambulatory Facundo D Dolce Facility:[facility] Start: 07-08-2023 End: 07-08-2023 Patient encounter procedure Facundo D Qian [facility] Start: 06-30-2023 End: 07-01-2023 ambulatory Facundo D Dolce [facility] Start: 06-30-2023 End: 06-30-2023 Patient encounter procedure Facundo Tima Hoffman [facility] Start: 06-24-2023 End: 06-25-2023 ambulatory Facundo D Dolce [facility] Start: 06-17-2023 End: 06-18-2023 ambulatory Facundo D Dolce [facility] Start: 06-17-2023 End: 06-17-2023 Patient encounter procedure Facundo D Qian [facility] Start: 06-10-2023 End: 06-11-2023 ambulatory Stephen R Bhartice Facility:[facility] Start: 06-10-2023 End: 06-10-2023 Patient encounter procedure Stephen R Bhartijames [facility] Start: 06-02-2023 End: 06-03-2023 ambulatory Facundo Hoffman [facility] Start: 06-02-2023 End: 06-03-2023 Pre-admission assessment Facundo Hoffman [facility] Start: 05-27-2023 End: 05-28-2023 ambulatory Stephen R Bhartice [facility] Start: 05-27-2023 End: 05-27-2023 Patient encounter procedure Stephen R Bhartijames [facility] Start: 05-20-2023 End: 05-21-2023 ambulatory Facundo Hoffman [facility] Start: 05-20-2023 End: 05-20-2023 Patient encounter procedure Facundo Hoffman [facility] Start: 05-15-2023 End: 05-16-2023 ambulatory Facundo Hoffman [facility] Start: 05-15-2023 End: 05-15-2023 Patient encounter procedure Facundo Hoffman [facility] Start: 05-06-2023 End: 05-07-2023 ambulatory Facundo Hoffman [facility] Start: 05-06-2023 End: 05-06-2023 Patient encounter procedure Facundo Hoffman [facility] Start: 04-23-[address] FACUNDO HOFFMAN Facility: Start: 04-22-2023 End: 04-23-2023 ambulatory Facundo Hoffman [facility] Start: 04-15-2023 End: 04-16-2023 ambulatory Facundo Hoffman [facility] Start: 04-08-2023 End: 04-09-2023 ambulatory Facundo Hoffman [facility] Start: 04-08-2023 End: 04-08-2023 Patient encounter procedure Facundo Hoffman [facility] Start: 04-02-2023 End: 04-03-2023 ambulatory Stephen R Dolce Facility:[facility] Start: 04-02-2023 End: 04-02-2023 Patient encounter procedure Stephen Hoffman [facility] Start: 03-25-2023 End: 03-26-2023 ambulatory Facundo Alfred Doljames Facility:[facility] Start: 03-17-2023 End: 03-19-2023 ambulatory Facundo Alfred Dolce [facility] Start: 03-11-2023 End: 03-12-2023 ambulatory Facundo Hayce Facility[place] Start: 03-11-2023 End: 03-11-2023 Patient encounter procedure Facundo Hoffman [facility] Start: 03-04-2023 End: 03-05-2023 ambulatory Facundo Hayjames Facility:[facility] Start: 03-04-2023 End: 03-04-2023 Patient encounter procedure Facundo Hoffman [facility] Start: 02-27-2023 End: 02-27-2023 ambulatory Perlita Ramesho Facility:[facility] Start: 02-27-2023 End: 02-27-2023 ambulatory DO Abbie R Gtz III Work Phone: [facility] Work Phone: Start: 02-27-2023 End: 02-27-2023 Patient encounter procedure DO Abbie Gtz III Work Phone: [facility] [place] Work Phone: Start: 02-24-2023 End: 02-25-2023 ambulatory Facundo aHyjames Facility:[facility] Start: 02-24-2023 End: 02-24-2023 Patient encounter procedure Facundo Hoffman [facility] Start: 02-18-2023 End: 02-19-2023 ambulatory Facundo Hayjames Facility:[facility] Start: 02-18-2023 End: 02-18-2023 Patient encounter procedure Facundo Hoffman [facility] Start: 02-17-2023 End: 02-17-2023 ambulatory Perlita Reno Other [facility] [employer] Other Start: 02-17-2023 [facility] visit new patient Perlita Ramesh nasir [facility] Start: 02-11-2023 End: 02-12-2023 ambulatory Facundo D Dolce Facility[facility] Start: 02-04-2023 End: 02-05-2023 ambulatory Facundo D Dolce [facility] Start: 02-04-2023 End: 02-04-2023 Patient encounter procedure Facundo Hoffman [facility] Start: 01-28-2023 End: 01-29-2023 ambulatory Facundo D Dolce Facility:[facility] Start: 01-28-2023 End: 01-29-2023 ambulatory Facundo D Dolce [facility] Start: 01-28-2023 End: 01-28-2023 Patient encounter procedure Facundo Hoffman [facility] Start: 01-21-2023 End: 01-22-2023 ambulatory Facundo D Dolce Facility:[facility] Start: 01-21-2023 End: 01-21-2023 Patient encounter procedure Facundo Hoffman [facility] Start: 01-15-2023 End: 01-22-2023 Pre-admission assessment Facundo Hoffman [facility] Start: 01-14-2023 End: 01-15-2023 ambulatory Facundo D Dolce Facility:[facility] Start: 01-14-2023 End: 01-14-2023 Patient encounter procedure Facundo Hayjames [facility] Start: 01-07-2023 End: 01-08-2023 ambulatory Facundo D Dolce Facility:[facility] Start: 01-07-2023 End: 01-07-2023 Patient encounter procedure Facundo Hayjames [facility] Start: 12-31-2022 End: 01-01-2023 ambulatory Facundo D Dolce Facility:[facility] Start: 12-31-2022 End: 12-31-2022 Patient encounter procedure Facundo Hoffman [facility] Start: 12-27-2022 End: 12-28-2022 ambulatory Facundo Hoffman [facility] Start: 12-27-2022 End: 12-27-2022 Patient encounter procedure Facundo Hoffman [facility] Start: 12-24-2022 End: 12-25-2022 ambulatory Facundo Hoffman Facility[facility] Start: 12-24-2022 End: 12-24-2022 Patient encounter procedure Facundo Hoffman [facility] Start: 12-17-2022 End: 12-18-2022 ambulatory Facundo Hoffman Facility[facility] Start: 12-10-2022 End: 12-11-2022 ambulatory Facundo Hoffman [facility] Start: 12-10-2022 End: 12-10-2022 Patient encounter procedure Facundo Hoffman [facility] Start: 12-03-2022 End: 12-04-2022 ambulatory Facundo Hoffman Facility[facility] Start: 12-03-2022 End: 12-03-2022 Patient encounter procedure Facundo Hoffman [facility] Start: 10-23-2022 End: 10-31-2022 ambulatory UNKNOWN PROVIDER Facility:[facility] Start: 07-20-2022 End: 07-22-2022 ambulatory UNKNOWN PROVIDER Facility:[facility] Start: 07-18-2022 End: 07-18-2022 [facility] Start: 07-18-2022 End: 07-18-2022 Emergency department patient visit [facility] Triage, Treat and Transport Comment on above: Arrived Start: 07-05-2022 End: 07-05-2022 Emergency department patient visit Itz Lauren [facility] Start: 03-21-2022 End: 03-21-2022 Patient encounter procedure Mitali Hawk [facility] Start: 02-23-2019 Patient encounter procedure Zakia Buck Facility[facility] Start: 01-01-2019 End: 01-02-2019 Patient encounter procedure Stephen Hoffman Facility:[facility] Start: 09-03-2017 End: 09-04-2017 Ambulatory NEO ROCHA [facility] Procedures Date Procedure Procedure Detail [...] t blood in single stool specimen [facility] Start: [facility] Hep[facility] C screening [facility]atitis C An [facility] Start: 1965 Tetanus + diphtheria + acellular pertussis vaccine (product) Tdap Booster [facility] Immunizations Immunization Date Immunization Notes Care Provider Hanny macias 08-31-2021 influenza virus vaccine, unspecified formulation Mitali Menendezmetz [facility] 02-02-2021 zoster vaccine recombinant [facility] 09-05-2020 influenza, high dose seasonal, preservative-free [facility] 09-05-2020 influenza virus vaccine, unspecified formulation [facility] 10-15-2019 influenza, high dose seasonal, preservative-free [facility] 09-10-2018 influenza, injectabl e, quadrivalent, preservative free [facility] 09-29-2017 influenza, injectabl e, quadrivalent, preservative free [facility] 09-25-2016 influenza, injectabl e, quadrivalent, preservative free [facility] 03-28-2016 pneumococcal conjuga te vaccine, 13 valent [facility] 09-21-2015 influenza, seasonal, injectable [facility] 12-27-2013 pneumococcal conjuga te vaccine, 13 valent [facility] Payers Date Payer Category Payer Self-pay 2022 Medicaid [id number] 2021 Unknown [id number] 2021 Unknown 2021 Medicare [employer] MEDICARE [employer] CHOICE PPO/HMO [id number] 2021-Present [employer] CLAIMS OFFICE [address] [address] [place] [address] PPO [id number] 2018 Unknown [id number] 1947 Unknown [id number] 1947 Unknown [id number] [id number] 1947 Unknown [id number] [id number] 1947 Unknown [id number] [id number] 1947 Unknown [id number] [id number] 1947 Unknown [id number] 2.16.840.1.188367.3.579.2. 1947 Unknown [id number] 2.16.840.1.168101.3.579.2 1947 Unknown [id number] 2.16.840.1.396073.3.579.2 1947 Unknown [id number] [id number] 1947 Unknown [id number] 2.16.840.1.967818.3.579.2 1947 Unknown [id number] 2.16.840.1.052319.3.579.272 1945 Unknown [id number] 2.16.840.1.069441.3.579.2 1945 Unknown [id number] 2.16.840.1.134105.3.579.2.72 1945 Unknown [id number] 2.16.840.1.492380.3.579.2 1945 Unknown [id number] 2.16.840.1.538683.3.579.272 1945 Unknown [id number] 2.16.840.1.186959.3.579.2 1945 Unknown [id number] 2.16.840.1.404328.3.579.2. 1945 Unknown [id number] 2.16.840.1.633680.3.579.2 1945 Unknown [id number] 2.16.840.1.750493.3.579.2 1945 Unknown [id number] 2.16.840.1.025271.3.579.2 1945 Unknown [id number] 2.16.840.1.206267.3.579.2 1945 Unknown [id number] 2.16.840.1.759229.3.579.2 1945 Unknown [id number] 2.16.840.1.709931.3.579.2 1945 Unknown [id number] 2.16.840.1.968619.3.579.2 1945 Unknown [id number] 2.16.840.1.075257.3.579.2 1945 Unknown [id number] 2.16.840.1.898281.3.579.2 1945 Unknown [id number] 2.16.840.1.370375.3.579.2 1945 Unknown [id number] 2.16.840.1.725496.3.579.2 1945 Unknown [id number] 2.16.840.1.955028.3.579.2 1945 Unknown [id number] 2.16.840.1.920645.3.579.2 1945 Unknown [id number] 2.16.840.1.904504.3.579.2 1945 Unknown [id number] 2.16.840.1.816141.3.579.2. 1945 Unknown [id number] 2.16.840.1.742957.3.579.2 1945 Unknown [id number] 2.16.840.1.931258.3.579.2 1945 Unknown [id number] 2.16.840.1.814853.3.579.2 1945 Unknown [id number] 2.16.840.1.280915.3.579.2 1945 Unknown [id number] 2.16.840.1.355340.3.579. 1945 Unknown [id number] 2.16.840.1.179774.3.579.2 1945 Unknown [id number] 2.16.840.1.950255.3.579.2 1945 Unknown [id number] 2.16.840.1.066670.3.579.2 1945 Unknown [id number] 2.16.840.1.021101.3.579.2 1945 Unknown [id number] 2.16.840.1.559661.3.579.2 1945 Unknown [id number] 2.16.840.1.436585.3.579.2 1945 Unknown [id number] 2.16.840.1.537912.3.579.2 1945 Unknown [id number] 2.16.840.1.464892.3.579.2 1945 Unknown [id number] 2.16.840.1.199530.3.579.2 1945 Unknown [id number] 2.16.840.1.028421.3.579.2.1259 1945 Unknown [id number] 2.16.840.1.174695.3.579.2.1259 1947 Unknown [id number] 2.16.840.1.914142.3.579.2.1259 1947 Unknown [id number] 2.16.840.1.995138.3.579.2.1259 1947 Unknown [id number] 2.16.840.1.371646.3.579.2.1259 1947 Unknown [id number] 2.16.840.1.885173.3.579.2.1259 1947 Unknown [id number] 2.16.840.1.010218.3.579.2.1259 Unknown Stacey NOLEN/SARAH [id number] Unknown [id number] 2.16.840.1.601121.3.579.2.531 Social History Date Type Detail Facility Start: 03-21-2022 Tobacco smoking status Ex-smoker (finding) [facility] Tobacco smoking status Never [facility] Sex Assigned At Male [facility] Tobacco smoking status [facility] Tobacco smoking consumption unknown [facility] Start: 1945 Sex Assigned At Not on file [facility] Start: 1945 Sex Assigned At Male [facility] Medical Equipment Procedure Code Equipment Code Equipment Origin al Text Equipment Identifier Dates ELBOW FRACTURE O RIF [facility] DOTheresa A 10/28/23 Unknown Elbow R FDA Start: 10-28-2023 ELBOW FRACTURE O RIF [place] DOTheresa 10/28/23 Unknown Elbow R FDA Start: 10-28-2023 Functional Status Date Assessment Result Facility 10-22-2023 Functional Status No [facility] 10-17-2023 Functional Status N/A [facility] 07-05-2022 Functional Status N/A [facility] Clinical Notes 03-21-2022 to 10-28-2023 Note Date & Type Note Facility 10-28-2023 Hospital Discharg e instructions Patient Education 10/28/2023 16:52:15 Post Op Patient Instructions - FT (Custom) (CUSTOM) 10/27/2023 07:36:07 [facility] - Home Care Instructions (Custom) [place] [facility] OUTPATIENT SURGERY Home Care [...] not drive. Theresa Villalpando, DO [facility] [address] [place] [address] [id number] Reviewed: 03-08 Follow Up Care 10/20/2023 14:32:22 With:Theresa Villalpando Address: [address] [place] [phone] Business (1) When:11/10/2023 14:30:00 Comments:Appointment has already been scheduled [facility] 10-27-2023 Note [id number]#1.00TIFF [facility] 10-18-2023 Hospital Discharg e instructions Patient [...] Follow these instructions at home: Medicines Take awor-zai-ipsjmwt and prescription medicines only as told by your health care provider. Ask your health care provider if the medicine prescribed to you: ?Requires you to avoid driving or using heavy machinery. ?Can cause constipation. You may need to take actions to prevent or treat constipation, such as: ?Drink enough fluid to keep your urine pale yellow. ?Take royc-crx-qozdrry or prescription medicines. ?Eat foods that are [...] provider. Document Revised: 02/14/2022 Document Reviewed: 02/14/2022 [employer] Patient Education 2022 [employer] Follow Up Care 10/17/2023 21:14:35 With:Theresa Villalpando Address: [address] [place], [place] [id number] Business (1) When:10/20/2023 Comments:You can use the pain medication every 6 hours as needed for pain. Please follow-up with your primary care doctor addition to orthopedics for further evaluation management. Please return to the ED for any new or worsening symptoms. With:Abbie Gtz Address: [address] [place] [address] [place] [address]- Business (1) When:Within 3 Day([address]) [facility] 10-17-2023 Evaluation + Plan note Extrac krystal from: Title:ED Note Author:Bryce Funk DO Date :10/17/23 Olecranon fracture (S52.023A : Displaced fracture of olecranon process without intraarticular extension of unspecified ulna, initial encounter for closed fracture) Orders: acetaminophen-hydrocodone, 1 tab(s), Oral, q6hr for pain for 3 day(s), 10 tab(s), Refill(s) 0, [facility] 1985, 177.8, cm, 10/17/23 21:21:00 EST, Height/Length Dosing, 133.1, kg, 10/17/23 21:21:00 EST, Weight Dosing Sling Apply XR Elbow 3+ Views Right [facility]03-20-2023 Evaluation note* Encounter Date Diagnosis Assessment Notes [...] with this plan, and denies any questions. [employer] Other 08-20-2022 History of Present illness Narrative* Wilfrid Haley MD - 07/20/2022 8:23 AM EDT Images from the original note were not included. EMERGENCY TRIAGE, TREAT AND TRANSPORT (ET3) DOCUMENTATION OF TELEHEALTH VISIT Date / Time: 07/18/2022 / 1430 Name: Yousif Aguilar : 1945 SSN: [id number] EMS Agency: [facility] [] Verbal consent obtained [] Implied [...] by: Wilfrid Haley MD documented in this [id number] Hospital Discharge instructions Patient Education 07/05/2022 13:44:46 [...] activities that cause pain. General instructions Take fjdx-gpg-kcempjz and prescription medicines only as told by [...] 05/07/2011 Document Revised: 04/03/2020 Document Reviewed: 04/03/2020 [employer]'m Here Patient Education 2019 [employer] Follow Up Care 07/05/2022 11:49:47 With:Abbie Gtz Address: [address] [place] [address] [facility] [address] [facility] (1) When:07/08/2022 13:33:40 [facility]08-05-2022 Evaluation + Plan noteExtracted from: Title:ED Note [...] XR Hip 2-3 Views Right + Pelvis [facility]04-21-2022 Hospital Discharge instructions Patient Education 03/21/2022 08:32:55 [...] 08/13/2005 Document Revised: 03/04/2019 Document Reviewed: 03/04/2019 [employer] Patient Education [employer] Follow Up Care 03/05/2022 13:23:06 With:Mitali Hawk CNP Address: When:1 year only if needed [facility] Evaluation + Plan note No data available for this section [facility] Evaluation + Plan note Future Appointments Appointment Date:12/10/2022 10:00:00 AM Scheduled Provider: [facility] Appoint[facility] Type:WC Assessment (FT) Appointment Date:12/17/2022 01:45:00 PM Scheduled Provider:Facundo Hoffman DPM [facility] App[facility] Type:WC [facility] Future Appointments Appointment Date:12/17/2022 01:45:00 PM Scheduled Provider:Facundo Hoffman DPM [facility] Appointment Type:WC [facility] Future Appointments Appointment Date:12/31/2022 10:30:00 AM Scheduled Provider: [facility] Appointment Type:WC Assessment (FT) Appointment Date:01/07/2023 01:45:00 PM Scheduled Provider:Facundo Hoffman DPM [facility] Appointment Type:WC Follow Up [facility] (FT[facility] [place] [facility] Future Appointments Appointment Date:12/31/2022 01:30:00 PM Scheduled Provider: Location[facility] Appointment Type:WC Assessment (FT) Appointment Date:01/07/2023 01:45:00 PM Scheduled Provider:Facundo Hoffman DPM Location[facility] Appointment Type:WC [facility] Future Appointments Appointment Date:01/07/2023 01:45:00 PM Scheduled Provider:Facundo Hoffman DPM [facility] Appointment Type:WC [facility] [place] [facility] Future Appointments Appointment Date:01/14/2023 02:30:00 PM Scheduled Provider:Facundo Hoffman DPM Location[facility] Appointment Type:WC Follow Up Visit (FT) [facility] + Plan note Future Appointments Appointment Date:01/21/2023 03:30:00 PM Scheduled Provider:Facundo Hoffman DPM Location[facility] Appointment Type:WC Follow Up Visit (FT[facility] [place] [facility] Plan note Future Appointments Appointment Date:01/28/2023 03:30:00 PM Scheduled Provider:Facundo Hoffman DPM Location[facility] Appointment Type:WC Follow Up Visit (FT) Appointment Date:02/11/2023 01:30:00 PM Scheduled Provider:Facundo Hoffman DPM Location[facility] Appointment Type:WC [facility] ([facility] Future Appointments Appointment Date:02/04/2023 01:45:00 PM Scheduled Provider:Facundo Hoffman DPM Location[facility] Appointment Type:WC Follow Up Visit (FT) Appointment Date:02/11/2023 01:30:00 PM Scheduled Provider:Facundo Hoffman DPM Location[facility] Appointment Type:WC [facility] (FT[facility] Future Appointments Appointment Date:02/11/2023 01:30:00 PM Scheduled Provider:Facundo Hoffman DPM Location[facility] Appointment Type:WC [facility] Up [facility] (FT[facility] Future Appointments Appointment Date:02/25/2023 11:30:00 AM Scheduled Provider: Location[facility] Appointment Type:WC Assessment (FT) Appointment Date:03/04/2023 01:15:00 PM Scheduled Provider:Facundo Hoffman DPM Location[facility] Appointment Type:WC [facility]FT[facility] Future Appointments Appointment Date:03/04/2023 01:15:00 PM Scheduled Provider:Facundo Hoffman DPM Location[facility] Appointment Type:WC [facility] Up [facility] (FT[facility] [place] [facility] Plan note Future Appointments Appointment Date:03/11/2023 11:00:00 AM Scheduled Provider: Location[facility] Appointment Type:WC Assessment (FT) Appointment Date:03/17/2023 01:30:00 PM Scheduled Provider: Location:[facility] Appointment Type:WC Assessment (FT) Appointment Date:03/25/2023 02:00:00 PM Scheduled Provider:Facundo Hoffman DPM Location[facility] Appointment Type:WC Follow Up Visit (FT[facility] [place] [facility] Plan note Future Appointments Appointment Date:03/17/2023 01:30:00 PM Scheduled Provider: [facility] Appointment Type:WC Assessment (FT) Appointment Date:03/25/2023 02:00:00 PM Scheduled Provider:Facundo Hoffman DPM Location[facility] Appointment Type:WC [facility] (FT[facility] Future Appointments Appointment Date:04/08/2023 01:45:00 PM Scheduled Provider:Facundo Hoffman DPM Location[facility] Appointment Type:WC [facility] (FT[facility] Future Appointments Appointment Date:04/15/2023 02:15:00 PM Scheduled Provider:Facundo Hoffman DPM [facility] Appointment Type:WC Follow Up [facility] (FT[facility] Future Appointments Appointment Date:05/15/2023 10:00:00 AM Scheduled Provider: [facility] Appointment Type:WC Assessment (FT) Appointment Date:05/20/2023 01:45:00 PM Scheduled Provider:Facundo Hoffman DPM [facility] Appointment Type:WC [facility] (FT[facility] Future Appointments Appointment Date:05/20/2023 03:15:00 PM Scheduled Provider:Facundo Hoffman DPM [facility] Appointment Type:WC [facility] Up [facility] (FT[facility] Future Appointments Appointment Date:06/02/2023 08:30:00 AM Scheduled Provider: [facility] Appointment Type:WC Assessment (FT) Appointment Date:06/10/2023 03:00:00 PM Scheduled Provider:Facundo Hoffman DPM Location:[facility] Appointment Type:WC [facility] Up [facility] (FT[facility] Future Appointments Appointment Date:06/10/2023 03:00:00 PM Scheduled Provider:Facundo Hoffman DPM [facility] Appointment Type:WC [facility] (FT[facility] Future Appointments Appointment Date:06/24/2023 03:00:00 PM Scheduled Provider:Facundo Hoffman DPM [facility] Appointment Type:WC [facility] (FT[facility] Future Appointments Appointment Date:07/08/2023 01:45:00 PM Scheduled Provider:Facundo Hoffman DPM Location:[facility] Appointment Type:WC [facility] (FT[facility] Future Appointments Appointment Date:07/14/2023 09:00:00 AM Scheduled Provider: [facility] Appointment Type:WC Assessment (FT) Appointment Date:07/22/2023 02:00:00 PM Scheduled Provider:Facundo Hoffman DPM [facility] Appointment Type:WC [facility] (FT[facility] Future Appointments Appointment Date:07/22/2023 02:00:00 PM Scheduled Provider:Facundo Hoffman DPM Location:[facility] Appointment Type:WC [facility] Up [facility] (FT[facility] Future Appointments Appointment Date:08/05/2023 02:00:00 PM Scheduled Provider:Facundo Hoffman DPM [facility] Appointment Type:WC Follow Up [facility] (FT[facility] Future Appointments Appointment Date:10/28/2023 02:00:00 PM Scheduled Provider: Location:[facility] Appointment Type:Surgery FT [facility] [place] [facility]* Diagnosis Fall in home, initial encounter- Primary documented [facility] Work Phone: History general Narrative - Reported* Type Description Date Medical History high cholesterol Medical History Blood clots Surgical History hand and leg surgery 1974 Surgical History jaw wiring Surgical History elbow surgery Surgical History appendectomy Surgical History wrist surgery right hand Hospitalization History see above [employer] Other Hospital Discharge instructions No data available [facility] this [facility] No data available for this section [facility] Summary Purpose Family History No Family History [...] section and content) DATE CREATED AUTHOR 05/27/2018 [facility] DATE CREATED AUTHOR AUTHOR'S ORGANIZ ATION 02/25/[address] [facility] DATE CREATED AUTHOR AUTHOR'S ORGANIZ ATION 11/01/2022 [employer] DATE CREATED AUTHOR AUTHOR'S ORGANIZ ATION 03/15/2023 [facility] DATE CREATED AUTHOR AUTHOR'S ORGANIZ ATION 04/09/2023 [facility] DATE CREATED AUTHOR AUTHOR'S ORGANIZ ATION 11/05/2023 Gerardo Soni [facility] DATE CREATED AUTHOR AUTHOR'S ORGANIZ ATION 12/22/2023 [facility] EPIC Care Team (unrecognized [...] BE BASED ON THE PRIMARY CLINICAL RECORDS. [employer] provides no warranty or guarantee of the accuracy or completeness of information in this document.
== END 2024-01-27 09:46 | disposition home or self-care (01) ==
LOC: VC 09:45
PROVIDERS: PCP Radiology Diagnostic Radiology; Visit Provider Radiology Diagnostic Radiology
DX: I83.813 Varicose veins of bilateral lower extremities with pain (principal)
CPT/HCPCS: 36466

== ENCOUNTER 2024-02-03 09:42 | Outpatient (OUT) | payer OTHER, MEDICAID, SELFPAY ==
--- NOTE | 2024-02-03 09:46 | VEIN_ITS ---
Patient Name: YOUSIF NAJERA MR#: [id number] : 1945 Exam Date: 02/03/2024 Ordering Doctor: DR CHRIS KIM M.D. RADIOLOGY REPORT PROCEDURE: VC EXT VENOUS LT LIMITED COMPARISON: VC EXT VENOUS LT LIMITED, 07/28/2023. VC EXT VENOUS LT LIMITED, 06/09/2023. INDICATIONS: I80.02 Phlebitis of superficial veins of lt lower extremity TECHNIQUE: Lower extremity rodriges scale and Duplex Doppler evaluation of the deep venous system from the inguinal ligament through the calf veins. FINDINGS: REGION: Left lower extremity. THROMBI: Negative for DVT. Varithena induced thrombus visualized at prox/med calf and distal med calf. COMPRESSIBILITY: Non-compressible segments corresponding to thrombus FLOW: Normal waveform and antegrade flow between 5 and 20 cm/s.Areas of no flow corresponding to thrombus OTHER: Multiple varicose veins remain with the largest measuring 4.6mm with 0.7s reflux at mid/ant thigh. CONCLUSION: Post ablation occlusion of treated varicose veins. 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 Dictated by: Chris Kim MD on 02/03/2024 at 10:09 Approved by: Chris Kim MD on 02/03/2024 at 10:10
--- NOTE | 2024-02-03 09:47 | VEIN_ITS ---
Patient Name: YOUSIF NAJERA MR#: [id number] : 1945 Exam Date: 02/03/2024 Ordering Doctor: DR CHRIS KIM M.D. RADIOLOGY REPORT PROCEDURE: [facility] EST LMTD VEIN CENTER - OFFICE VISIT FOLLOW UP COMPARISON: [facility] EST LMTD, 01/20/2024. [facility] EST LMTD, 11/26/2023. PROGRESS NOTES: The patient reports no significant problems following micro foam chemical ablation of the left leg. Patient did not require oral analgesics for the patient has worn his compression stockings. The patient does report significant interval improvement in way his legs feel. Physical exam demonstrates marked reduction in erythema skin thickening and subcutaneous edema. Thrombosed varicose veins can be palpated. No erythema or warmth to suggest cellulitis or thrombophlebitis. No active ulceration Review of the ultrasound performed the same day demonstrates occlusive thrombus extending throughout the treated left leg varicose veins. Residual varicose veins measuring up to 4.6 mm. The patient expressed a desire to proceed with treatment of bilateral incompetent varicose veins. VEIN/[facility] EST LMTD IMPRESSION: 1. Successful ablation of incompetent left leg varicose veins 2. Persistent bilateral incompetent varicose vein. PLAN: Micro foam chemical ablation right leg incompetent varicose veins Nurse notes, history and physical were reviewed and confirmed, see attached forms. The nurse was present throughout the physical exam and consultation Dictated by: Chris Kim MD on 02/03/2024 at 10:19 Approved by: Chris Kim MD on 02/03/2024 at 10:27
--- OUTSIDE RECORDS SUMMARY | 2024-02-03 09:53 | XMS_ITS | CCD ---
Author Name Unknown Address [address] [place] [address] Organization [facility] Care Team Providers Care Psychology Assistant Name Role Phone NEO ROCHA Unavailable Unavailable GTZ III, ABBIE R Unavailable Unavailabl e Dolce, Stephen R. Admitting Unavailable Dolce, Stephen R. Attending Unavailable Gtz, Abbie Primary Care Unavailable HeberZakia Admitting Unavailable HeberZakia Attending Unavailable Gtz, Abbie Primary Care Unavailable Gtz III, Abbie R Primary Care Physician Unavailable [...] [IODINE] Drug Allergy 6 Unknown (qualifier value) [facility] Repository (20 sources) Penicillins; Translations: [PENICILLINS] Propensity to adverse reactions to drug (disorder) 6 Unknown (qualifier value) [facility]ository (1 source) SHELLFISH CONTAINING PRODUCTS; Translations: [SHELLFISH CONTAINING PRODUCTS] Propensity to adverse reactions to drug (disorder) 7 AOF [facility]ository (20 sources) Shellfish; Translations: [shellfish] Propensity to adverse reactions (disorder) Pharyngeal swelling (finding), Difficulty breathing (finding) [facility] Repository (5 sources) Contrast media; Translations: [Contrast Dye] Propensity to adverse reactions Dizziness (finding) [facility] (1 source) Penicillin Drug Allergy rash [facility] Other (1 source) Shellfish Drug allergy Unknown [facility] Other (1 source) Penicillins; Translations: [penicillins] Drug allergy Unknown (qualifier value) [facility] Comment on above: as a child Medications Current Medications Medication Drug Class(es) Dates Sig (Normalized) Sig (Original) acetaminophen 325 mg / HYDROcodone bitartrate 5 mg oral tablet (2 sources) Opioid Agonist Start: 10-28-2023 Pinson 325 mg-5 mg oral tablet See Instructions, for pain, 40 tab(s), Refill(s) 0, 1 - 2 po q4-6h prn pain Dx: S52.031D Duration: 7 days, [id number], 177, cm, 10/22/23 12:25:00 EST, Height/Length Dosing, 132.5, kg, 10/22/23 12:25:00 EST, Weight Dosing Start Date: 10/28/23 Status: Ordered Start: 10-17-2023 End: 10-20-2023 take 1 tablet by mouth every six hours for pain Pinson 325 mg-5 mg oral tablet 1 tab(s), Oral, q6hr for pain for 3 day(s), 10 tab(s), Refill(s) 0, [facility], 177.8, cm, 10/17/23 21:21:00 EST, [...] constipation, # 40 cap(s), Refills(s) 0, Pharmacy: [facility]/pharmacy #6173, 177, cm, 10/22/23 12:25:00 EST, Height/Length [...] Facility IntraOperative Documentson 1 01-04-2023 IntraOperative Documents [id number]#1.00TIFF [facility] Progress Note-Physicianon Progress Note-Physician Patient: YOUSIF AGUILAR Age: 77 years Sex: Male : 1945 Associated Diagnoses: None Author: MD Rudd Ahmad F Postoperative Information Postoperative disposition: Postoperative disposition: To PACU. Optimetrix number: Optimetrix number [id number]. Anesthetic utilized: General. Health Status Allergies: Allergic [...] when meets criteria ( To home ). [facility] Comment on above: Result Comment: Elec [...] constipation, # 40 cap(s), Refills(s) 0, Pharmacy: [facility]/pharmacy #6173, 177, cm, 10/22/23 12:25:00 EST, Height/Length Dosing, 132.5, kg, 10/22/23 12:25:00 EST, Weight Dosing Pinson 325 mg-5 mg oral tablet: See Instructions, for pain, 40 tab(s), Refill(s) 0, 1 - 2 po q4-6h prn pain Dx: S52.031D Duration: 7 days, [facility]pharm[facility] #6173, 177, cm, 10/22/23 12:25:00 EST, Height/Length [...] Problems High blood pressure / SNOMED CT 9868471445 / Confirmed Hypercholesterolemia / ICD-9-CM 272.0 / Confirmed Lymphedema / SNOMED CT 22637039 / Confirmed 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 / SNOMED CT 310946980 / Confirmed History of colon polyps / SNOMED CT 3815120418 / Confirmed Colon polyp / SNOMED CT 101051463 / Confirmed Diverticulosis / SNOMED CT 6112762812 / Confirmed Hemorrhoids / SNOMED CT 954100871 / Confirmed Extreme obesity / SNOMED CT 82V10432-3MA0-91R6-K311-5 [id number] / Possible Resolved: DVT / SNOMED CT 768423896 Resolved: PE - Pulmonary embolism / SNOMED CT 8542257455 Resolved: Stasis dermatitis co-occurrent with venous ulcer of right lower extremity due to chronic peripheral venous hypertension / SNOMED CT 522778350233407 Resolved: Stasis dermatitis of left lower extremity due to peripheral venous hypertension / SNOMED CT 649716960393574 Resolved: Stasis dermatitis of right lower extremity due to peripheral venous hypertension / SNOMED CT 758036491977173 Resolved: Stasis dermatitis and venous ulcer of left lower extremity due to chronic peripheral venous hypertension / SNOMED CT 115214003673225 Histories Past Medical History: Active Hypercholesterolemia (272.0) Lymphedema (00324359) Resolved PE - Pulmonary embolism (8324120356): Onset on 12/01/2005 at 60 years. Resolved. DVT (071871832): Resolved. Stasis dermatitis co-occurrent with venous ulcer of right lower extremity due to chronic peripheral venous hypertension (580679871345471): Resolved. Stasis dermatitis of left lower extremity due to peripheral venous hypertension (366259691531313): Resolved. Stasis dermatitis of right lower extremity due to peripheral venous hypertension (920834891660280): Resolved. Stasis dermatitis and venous ulcer of left lower extremity due to chronic peripheral venous hypertension (072208660991313): Resolved. Family History: Hyperlipidemia Mother Heart disease Father Non Hodgkin's lymphoma Mother Procedure history: ORIF of Right Elbow (179997223) on 10/28/2023 at 77 Years. Colonoscopy (307480981) on 03/04/2022 at 76 Years. EVLT RLSV [...] fracture in 1966 at 21 Years. Appendectomy (605986204) in 1952 at 7 Years. bilateral wrist [...] visible). Respiratory (more content not included)... Normal [facility] Comment on above: Result Comment: Elec tronically Signed By: MD Kar, Jemima Bella\.br\Date and Time Signed: 11/01/23 18:14 EST Operative Reporton Operative Report SURGERY DATE: 2022 ACCOUNT SUPERVISOR: Samuel Gonsalez PA-C PREOPERATIVE DIAGNOSIS: Right olecranon fracture POSTOPERATIVE DIAGNOSIS: Right olecranon fracture OPERATION: Right olecranon open reduction internal fixation ANESTHESIA: General ANESTHESIOLOGIST: CINDY Faria ESTIMATED BLOOD LOSS: None SPECIMEN: None COMPLICATIONS: None IMPLANT: 0.062 K-wire x2 with 18 gauge dental wire for a uiwigc-qq-dlpki tension band construct HISTORY/OPERATIVE INDICATIONS: Yousif is [...] visualized. It is then fixed with a uufqdt-qt-tnsyv construct as described below. Samuel Gonsalez did [...] This is done in the standard fashion. Lspfyl-up-orhuj is then applied, tensioned accordingly, is cut [...] is subsequently extubated, transferred to the [place] [facility] and taken to Post-Anesthesia Care Unit in stable condition. He will be discharged this day. Theresa Villalpando D.O. Dictated: 10/28/2023 [id number] Transcribed: 10/29/2023 cc:Abbie Gtz III, D.O. [facility] Comment on above: Result Comment: Elec tronically Signed By: Theresa Villalpando DO\.br\Date and Time Signed: 10/30/23 11:53 EST Consent for Anesthesiaon Consent for Anesthesia [id number]#1.00TIFF Normal [facility] Discharge Instructionson Discharge Instructions [id number]#1.00TIFF Normal [facility] Insurance Correspondence Off iceon 10-29-2023 Insurance Correspondence Office [id number]#1.00TIFF Normal [facility] IntraOperative Documentson 1 12-29-2022 IntraOperative Documents [id number]#1.00TIFF Normal [facility] Main OR Intraoperative Recor don 10-29-2023 Main OR Intraoperative Record IntraOp Document Type FT Summary Primary Physician: Theresa Villalpando DO Finalized Date/Time: 10/29/23 12:32:07 Pt. Name: YOUSIF AGUILAR/Sex: 1945 Male Med Rec #: [id number] Physician: Theresa Villalpando DO Financial #: [id number] Pt. Type: A Room/Bed: [place] [address] Admit/Disch: 10/28/23 10:36:00 - 10/28/23 17:40:00 Institution: [...] D Role Performed Anesthesiologist Surgeon - Primary PA/CABLE ENGINEER OUTSIDE PLANT Watershed Manager Time In 10/28/23 14:07:00 10/28/23 14:07:00 10/28/23 [...] C Roll RT, Daniel P Role Performed Auto Self Service Station Attendant - Primary Scrub - Primary Ordnance Truck Installation Supervisor Time In 10/28/23 14:07:00 10/28/23 14:07:00 10/28/23 [...] and tissue Entry 1 Skin Integrity Intact, [place], Warm, and Skin Abnormality No Dry Outcomes [...] symptoms o (more content not included)... Normal [facility] Preoperative Documentson Preoperative Documents [id number]#1.00TIFF Normal [facility] XR Elbow 2 Views Righton XR [...] mGy = 1.66 DAP = na Normal [facility] Consent for Treatmenton 10-02 Consent for Treatment [id number]#1.00TIFF Normal [facility] Discharge Instructionson Discharge Instructions YOUSIF AGUILAR [...] physician. This Is Your Medications List acetaminophen-hydrocodone (Pinson 325 mg-5 mg oral tablet) atorvastatin (atorvastatin [...] Comments: Appointment has already been scheduled Where: [address] [place] [phone]- Business (1) Medications What How Much When Instructions Next Dose Unchanged acetaminophen-hydrocodone (Pinson 325 mg-5 mg oral tablet) See instructions 1 - 2 po q4-6h prn pain Dx: S52.031D Duration: 7 days Pickup at [facility]/pharmacy #6173 Unchanged atorvastatin (atorvastatin 20 mg Tab) 1 Tablets By Mouth Once a day (at bedtime) Unchanged docusate (Colace 100 mg Cap) 1 Capsules By Mouth 2 times a day as needed for for constipation [facility] Unchanged hydrochlorothiazide (hydrochlorothiazide 25 mg oral tablet) 1 Tablets By Mouth Every day Unchanged rivaroxaban (Xarelto 2.5 mg oral tablet) 2 Tablets By Mouth Every day Pharmacy Information [facility]/pharmacy #6173: [address], [place] [id number] [phone] Test Results No qualifying data available. Allergies [...] WIRE 10/28/2023 K-WIRE (2), 10/28/2023 Education Materials [place], [place] [facility] OUTPATIENT SURGERY Home Care [...] pain a (more content not included)... Normal [facility] Comment on above: Result Comment: Elec tronically Signed By: Flavio PHELPS, Marilou Aguero\.br\Date and Time Signed: 10/28/23 16:53 EST H&P Updateon 10-28-2023 H&P Update [id number]#1.00TIF F [facility] Main OR PACU I Recordon 10-02 Main OR PACU I Record PACU Phase I Document Type FT Summary Primary Physician: Theresa Villalpando DO Finalized Date/Time: 10/28/23 16:14:58 Pt. Name: YOUSIF AGUILAR Jimbo Gaines/Sex: 1945 Male Med Rec #: [id number] Physician: Theresa Villalpando DO Financial #: [id number] Pt. Type: A Room/Bed: [facility] Admit/Disch: 10/28/23 10:36:00 - Institution: [...] By: Elizabeth Rowe RN 10/28/23 16:14 Normal [facility] Main OR Preoperative Recordo n 10-28-2023 Main OR Preoperative Record PreOp Document Type FT Summary Primary Physician: Theresa Villalpando DO Finalized Date/Time: 10/28/23 14:12:47 Pt. Name: YOUSIF AGUILAR./Sex: 1945 Male Med Rec #: [id number] Physician: Theresa Villalpando DO Financial #: [id number] Pt. Type: A Room/Bed: [place] [address] Admit/Disch: 10/28/23 10:36:00 - Institution: Case Times [...] Signed By: Idris Brooks 10/28/23 14:12 Normal [facility] Monitor Recordon 10-28-2023 Monitor Record [id number]#1.00TIFF Normal [facility] Patient Education - Texton 1 12-28-2022 Patient Education - Text [place], [place] [facility] OUTPATIENT SURGERY Home Care [...] drive. __ Theresa Villalpando DO [facility] [address] [place] [address] Reviewed: 03-08 [facility] Progress Note-Physicianon Progress Note-Physician Patient: YOUSIF AGUILAR Age: 77 years Sex: Male : 1945 Associated Diagnoses: None Author: Theresa Villalpando DO Postoperative Information Procedure: R Olecranon ORIF Preoperative Diagnosis: R olecranon fx. Postoperative Diagnosis: same. Performed by: camlia. Watershed Manager: Wallace. Specimens Removed: none. Prosthesis: tension band. . Estimated Blood Loss: 0 ml. Complications: None. Anesthesia type: General. Normal [facility] Comment on above: Result Comment: Elec tronically Signed By: Theresa Villalpando DO\Date and Time Signed: 10/28/23 15:37 EST CHEMISTRYOrdered By: SYSTEM SYSTEM on 10-27-2023 Potassium [Moles/Vol] 3.6 mmol/L Normal 3.5 - 5.3 mmol/L [facility] Consent for Procedure/Surger yon 10-27-2023 Consent for Procedure/Surgery [id number]#1.00TIFF [facility] Consent for Treatmenton 10-02 Consent for Treatment [id number]#1.00TIFF [facility] Physician Orderon 10-27-2023 Physician Order [id number]#1.00TIFF [facility] Potassiumon 10-27-2023 Potassium [Moles/Vol] 3.6 mmol/L Normal 3.5-5.3 [facility] Comment on above: Performed By: #### 2 567498 #### [facility] [address] [place] [address] XR Chest 2 Viewson 3 XR Chest [...] mGy = na DAP = na Normal [facility] Auto Diffon 10-22-2023 Basophils/100 WBC (Bld) 0.3 % Normal 0.0-2.0 [facility] Comment on above: Order Comment: Order Added by Discern Expert. Performed By: #### 2 011644, 6024379, 2030581, 39035358 ####[address] [address] Basophils/Leukocytes Auto (Bld) [Pure # fraction] 0.0 E9/L Normal 0.0-0.2 [facility] Comment on above: Order Comment: Order Added by Discern Expert. Performed By: #### 2 286831, 3790583, 0106953, 73740228 ####[address] [address] Eosinophils/100 WBC (Bld) 3.6 % Normal 0.0-8.0 [facility] Comment on above: Order Comment: Order Added by Discern Expert. Performed By: #### 2 803897, 3391225, 6995506, 14333349 ####[address] [address] Eosinophils/Leukocyt es Auto (Bld) [Pure # fraction] 0.3 E9/L Normal 0.0-0.5 [facility] Comment on above: Order Comment: Order Added by Discern Expert. Performed By: #### 2 676226, 2156931, 4427981, 66225509 ####[address] [address] Lymphocytes/100 WBC (Bld) 15.5 % Normal 14.0-50.0 [facility] Comment on above: Order Comment: Order Added by Discern Expert. Performed By: #### 2 425027, 8326608, 5823292, 85448518 ####[address] [place] [address] Lymphocytes/Leukocyt es Auto (Bld) [Pure # fraction] 1.1 E9/L Normal 1.0-4.0 [facility] Comment on above: Order Comment: Order Added by Discern Expert. Performed By: #### 2 995750, 9554573, 6065669, 99058369 ####[place] [address] [place] [address] Monocytes/100 WBC (Bld) 9.5 % Normal 4.0-14.0 [facility] Comment on above: Order Comment: Order Added by Discern Expert. Performed By: #### 2 106253, 8524227, 5390560, 52170069 ####[address] [address] Monocytes/Leukocytes Auto (Bld) [Pure # fraction] 0.7 E9/L Normal 0.2-1.0 [facility] Comment on above: Order Comment: Order Added by Discern Expert. Performed By: #### 2 929226, 4756031, 3758630, 51480875 ####[address] [address] Neutrophils/100 WBC (Bld) 71.1 % Normal 36.0-75.0 [facility] Comment on above: Order Comment: Order Added by Discern Expert. Performed By: #### 2 887709, 1450852, 2722421, 49074655 ####[address] [address] Neutrophils/Leukocyt es Auto (Bld) [Pure # fraction] 5.2 E9/L Normal 2.0-7.5 [facility] Comment on above: Order Comment: Order Added by Discern Expert. Performed By: #### 2 796822, 7037879, 8599698, 43003397 ####[address] [place] [address] BMPon 10-22-2023 Anion gap [Moles/Vol] 13 mmol/L Normal 6-16 [facility] Comment on above: Performed By: #### 2 402373, 2267807, 3374378, 43558597 ####[facility] [address] [place] [address] Calcium [Mass/Vol] 8.4 mg/dL Low 8.9-11.1 [facility] Comment on above: Performed By: #### 2 854641, 4566169, 3284524, 00393388 ####[facility] [address] [place] [address] Chloride [Moles/Vol] 97 mmol/L Low 101-[address] [facility] Comment on above: Performed By: #### 2 766272, 8990803, 0095284, 24639597 ####[facility] [address] [place] [address] CO2 [Moles/Vol] 31 mmol/L Normal 21-31 [facility] Comment on above: Performed By: #### 2 520061, 4987248, 1913967, 82092203 ####[facility] [address] [place] [address] Creatinine [Mass/Vol] 0.9 mg/dL Normal 0.5-1.3 [facility] Comment on above: Performed By: #### 2 054236, 8936891, 7119028, 19137872 ####[facility] [address] [facility] [place] [address] Glucose [Mass/Vol] 105 mg/dL Normal 55-199 [facility] Comment on above: Result Comment: If t his glucose result represents a fasting glucose, interpretation should refer to the following reference range: 55-99 mg/dL Performed By: #### 2 746008, 4450629, 7395330, 93972102 ####[facility] [address] [place] [address] Potassium [Moles/Vol] 2.8 mmol/L Abnormal 3.5-5.3 [facility] Comment on above: Result Comment: Crit ical Result verified by repeat analysis\Critical Result S_K:2.8 Called to [facility] by MITALI DUBON And Read Back For Confirmation at: 10/22/2023 13:36:24 Performed By: #### 2 963689, 1306102, 3224284, 06253409 ####[facility] [address] [place] [address] Sodium [Moles/Vol] 138 mmol/L Normal 135-145 [facility] Comment on above: Performed By: #### 2 780948, 1052202, 7971870, 36762070 ####[facility] [address] [place] [address] Urea nitrogen [Mass/Vol] 17 mg/dL Normal 5-21 [facility] Comment on above: Performed By: #### 2 944894, 4026875, 4651183, 65793034 ####[facility] [address] [place] [address] Urea nitrogen/Creatinine [Mass ratio] 19 No Units Normal 10-20 [facility] Comment on above: Performed By: #### 2 477363, 8015765, 9249992, 42107675 ####[facility] [address] [place] [address] CBC w/ Auto Diffon 3 Erythrocyte distribution width (RBC) [Ratio] 14.1 % Normal 10.9-14.2 [facility] Comment on above: Performed By: #### 2 085298, 3724197, 0846489, 84558128 ####[address] [address] Hematocrit (Bld) [Volume fraction] 32.6 % Low 37.7-49.0 [facility] Comment on above: Performed By: #### 2 018927, 5712827, 4386636, 99219038 ####[address] [place] [address] Hemoglobin (Bld) [Mass/Vol] 10.9 g/dL Low 13.5-17.5 [facility] Comment on above: Performed By: #### 2 482505, 3707507, 4585934, 61958965 ####[address] [place] [address] MCH (RBC) [Entitic mass] 28.9 pg Normal 27.0-34.0 [facility] Comment on above: Performed By: #### 2 075623, 6366497, 7858075, 81168538 ####[address] [address] MCHC (RBC) [Mass/Vol] 33.5 g/dL Normal 31.4-36.0 [facility] Comment on above: Performed By: #### 2 399310, 6535973, 6491119, 17093940 ####[address] [address] MCV (RBC) [Entitic vol] 86.3 fL Normal 80.0-100.0 [facility] Comment on above: Performed By: #### 2 596063, 1305512, 2277194, 57496657 ####[address] [address] Platelet mean volume (Bld) [Entitic vol] 8.8 fL Normal 6.4-10.8 [facility] Comment on above: Performed By: #### 2 789230, 0689202, 7657297, 13038049 ####[address] [address] Platelets (Bld) [#/Vol] 245.0 E9/L Normal 150.0-500.0 [facility] Comment on above: Performed By: #### 2 424373, 2847809, 5016549, 40215554 ####[address] [address] RBC (Bld) [#/Vol] 3.8 E12/L Low 4.3-5.9 [facility] Comment on above: Performed By: #### 2 182159, 7534658, 2860988, 52594011 ####[address] [address] WBC corrected for nucl RBC Auto (Bld) [#/Vol] 7.4 E9/L Normal 4.0-11.0 [facility] Comment on above: Performed By: #### 2 879015, 7819890, 6638889, 16410510 ####[facility] [address] [place] [address] CHEMISTRYOrdered By: SYSTEM SYSTEM on 10-22-2023 Anion [...] S_K:2.8 Called to [facility] by MITALI DUBON And Read Back For Confirmation at: 10/22/2023 13:36:24 Sodium [Moles/Vol] 138 mmol/L Normal 135 - 145 mmol/L [facility] Remisol Urea nitrogen [Mass/Vol] 17 mg/dL Normal 5 - 21 mg/dL [facility] Remisol Urea nitrogen/Creatinine [Mass ratio] 19 mg/mg Normal 10 - 20 FT Remisol Consent for Treatmenton 10-02 Consent for Treatment [id number]#1.00TIFF Normal [facility] HEMATOLOGYOrdered By: SYSTEM SYSTEM on 10-22-2023 [...] [Vol rate/Area] 89 mL/min/1.73 m2 Normal >=59 [facility] Comment on above: Order Comment: Order added by Discern Expert. Result Comment: Propagation Worker mercy kidney disease could be indicated at eGFR's of less than 60 mL/min/1.73m2. Kidney failure is indicated at less than 15 mL/min/1.73m2. Performed By: #### 2 105674, 4688705, 4593784, 50065591 ####[facility] [address] [place] [address] Consent for Treatmenton 10-01 Consent for Treatment [id number]#1.00TIFF Normal [facility] Discharge Instructionson Discharge Instructions [id number]#1.00TIFF Normal [facility] ED Clinical Summaryon 2022 ED Clinical Summary (Inserted Image. Clarissa ble to display) [address] [address] ED Clinical Summary Person Information Name: YOUSIF AGUILAR [place]ga [place] Age: 77 Years : 1945 Sex: Male Language: Lithuanian PCP: Abbie Gtz III, DO Marital Status: [...] 10/17/2023 23:43:34 10/17/2023 23:43:34 10/17/2023 23:43:34 ADDRESS: [address] [place] [id number] PHYS DOC NOTES: MEDICAL INFORMATION: Prescriptions Given: New Medications [facility], [address] [facility] [place], [place] [id number], [phone] acetaminophen-hydrocodone (Pinson 325 mg-5 mg oral tablet) 1 Tablets [...] up: With: Address: When: Theresa Villalpando [address] [place] [address] Business (1) In 3 days 10/20/2023 Comments: You can use the pain medication every 6 hours as needed for pain. Please follow-up with your primary care doctor addition to orthopedics for further evaluation management. Please return to the ED for any new or worsening symptoms. With: Address: When: Abbie Gtz [address] [facility], [place] [address] Business (1) In 3 days DIAGNOSIS: Olecranon fracture Normal [facility] ED Note-Physicianon 10-18-20 ED Note-Physician Basic Information Time Seen: Bryce Funk DO 10/17/2023 21:16 Chief Complaint Pt arrives via [facility] for a fall. Pt states he was [...] and Complexity of Problems Differential Diagnosis: [] [facility] Data External documents reviewed: [] My [...] for 3 day(s), 10 tab(s), Refill(s) 0, [facility] 1985, 177.8, cm, 10/17/23 21:21:00 EST, Height/Length Dosing, 133.1, kg, 10/17/23 21:21:00 EST, Weight Dosing Sling Apply XR Elbow 3+ Views Right Disposition Plan Discharge Prescription List Prescriptions Pinson 325 mg-5 mg oral tablet, 1 tab(s), Oral, q6hr, PRN Follow-up With When Contact Information Theresa Villalpando In 3 days 10/20/2023 EST [address] [place] [address]- Business (1) Additional Instructions: You can use the pain medication every 6 hours as needed for pain. Please follow-up with your primary care doctor addition to orthopedics for further evaluation management. Please return to the ED for any new or worsening symptoms. Abbie Gtz In 3 days [address] [facility] [address], [place] [address]- Business (1) Additional Instructions: Patient [...] lower ex (more content not included)... Normal [facility] Comment on above: Result Comment: Elec [...] these instructions at home: Medicines ? Take tlue-zol-vzftkuj and prescription medicines only as told by your health care provider. ? Ask your health care provider if the medicine prescribed to you: ? Requires you to avoid driving or using heavy machinery. ? Can cause constipation. You may need to take actions to prevent or treat constipation, such as: ? Drink enough fluid to keep your urine pale yellow. ? Take vlfy-huu-ojcvyjj or prescription medicines. ? Eat foods that [...] is import (more content not included)... Normal [facility] ED Patient Summaryon 023 ED Patient Summary (Inserted Image. Clarissa ble to display) [place] [id number] Patient Discharge Instructions Person Information Name: YOUSIF AGUILAR Age: 77 Years Arrival Date: 10/17/2023 21:13:58 Discharge Diagnosis: Olecranon fracture Primary Care Physician: Abbie Gtz III, DO Provider Information Primary Provider: Bryce Funk DO Advanced Director Of Promotions:None The exam and treatment you received in the Emergency Department were for an urgent problem and are not intended as complete care. It is important that you follow up with a doctor, nurse practitioner, or physician?s business support assistant for ongoing care. If your symptoms [...] Instructions: With: Address: When: [address] [place] [address] [employer] (1) In 3 days 10/20/2023 Comments: You can use the pain medication every 6 hours as needed for pain. Please follow-up with your primary care doctor addition to orthopedics for further evaluation management. Please return to the ED for any new or worsening symptoms. With: Address: When: Abbie Gtz [address] [facility], [facility], [place] [address] [employer] (1) In 3 days In the event that this physician does not participate in your insurance network, please consult with your insurance company to find a nearby participating provider. Patient Education Materials: William Fracture A MESSAGE TO ALL PATIENTS REGARDING OPIOIDS PRESCRIPTION OPIOIDS: WHAT YOU NEED TO KNOW Prescription opioids can be used to help relieve jyapucdy-kl-ekwynm pain and are often prescribed following a [...] following g (more content not included)... Normal [facility] ED Traumaon 10-18-2023 ED Trauma [id number] 72211 [id number]#1.00TIFF Normal [facility] XR Elbow 3+ Views Righton XR [...] in mGy = na DAP = na [facility] Pre-Arrival Noteon 3 Pre-Arrival Note Pre-Arrival Summary Name: , maritza Current Date: 10/17/2023 21:14:37 EST Gender: Male Date of : Age: 77 Pre-Arrival Type: EMS ETA: 10/17/2023 21:06:00 EST Primary Care Physician: Presenting Problem: T2-fall, elbow pain Pre-Arrival User: Nicholas Rosario RN Referring Source: Location: [place] Completion Date/Time: 10/17/2023 21:06:00 [facility] Emergency Department Pre-Hospital Report Form ____ Vital Signs: Pre-Hospital Report: slipped on kitchen floor falling to R elbow, swelling noted. denies hitting head or LOC. on xarelto. no other pain/complaints Treatment in Route: none Response to Treatment: Misc. Issues: [facility] Nursing Note - Woundon 08-12 Nursing Note - Wound 170.71.322.583.8251 [id number]#1.00CD:1 27 [facility] Consent for Procedure/Surger yon 08-05-2023 Consent for Procedure/Surgery [id number]#1.00CD:1 27 [facility] Consent for Treatmenton Consent for Treatment [id number]#1.00CD:12 7 [facility] Physician Orderon 08-05-2023 Physician Order [id number] [id number]#1.00CD:1 27 [facility] Nursing Note - Woundon 07-31 Nursing Note - Wound 170.71.619.891.7680 203948 [id number]#1.00CD:1 27 [facility] Physician Orderon 07-31-2023 Physician Order [id number] [id number]#1.00CD:1 27 [facility] Consent for Treatmenton 07-02 Consent for Treatment [id number]#1.00CD:12 7 [facility] Multi-Wound Charton 07-29-20 Multi-Wound Chart [id number] 08863 [id number]#1.00CD:1 27 [facility] Nursing Assessment - Woundon 07-29-2023 Nursing Assessment - Wound [id number]#1.00CD:1 27 [facility] Procedure - Woundon 07-29-20 Procedure - Wound 170.71.121.117.56695 93325 [id number]#1.00CD:1 27 [facility] Consent for Treatmenton 07-02 Consent for Treatment [id number]#1.00CD:12 7 [facility] Multi-Wound Charton 07-22-20 Multi-Wound Chart 170.71.121.117.65111 85651 [id number]#1.00CD:1 27 [facility] Nursing Assessment - Woundon 07-22-2023 Nursing Assessment - Wound [id number]#1.00CD:1 27 [facility] Nursing Note - Woundon 07-22 Nursing Note - Wound 170.71.755.045.7899 940580 [id number]#1.00CD:1 27 [facility] Physician Orderon 07-22-2023 Physician Order [id number]#1.00CD:1 27 [facility] Procedure - Woundon 07-22-20 Procedure - Wound 170.71.121.117.66856 88232 [id number]#1.00CD:1 [facility] Progress Note - Woundon 07-02 Progress Note - Wound [id number]#1.00CD:1 27 [facility] Consent for Treatmenton 07-01 Consent for Treatment [id number]#1.00CD:127 [facility] Physician Orderon 07-15-2023 Physician Order [id number]#1.00CD:1 27 [facility] Multi-Wound Charton 07-14-20 Multi-Wound Chart 170.71.121.117.99375 59141 [id number]#1.00CD:1 27 [facility] Nursing Assessment - Woundon 07-14-2023 Nursing Assessment - Wound [id number]#1.00CD:1 27 [facility] Nursing Note - Woundon 07-14 Nursing Note - Wound 170.71.592.368.0390 529504 [id number]#1.00CD:1 27 [facility] Consent for Procedure/Surger yon 07-08-2023 Consent for Procedure/Surgery [id number]#1.00CD:1 27 [facility] Consent for Procedure/Surgery [id number]#1.00CD:1 27 [facility] Consent for Treatmenton Consent for Treatment [id number]#1.00CD:12 7 [facility] Multi-Wound Charton 07-08-20 Multi-Wound Chart 170.71.121.117.44245 08920 [id number]#1.00CD:1 27 [facility] Nursing Assessment - Woundon 07-08-2023 Nursing Assessment - Wound [id number]#1.00CD:1 27 [facility] Nursing Note - Woundon 07-08 Nursing Note - Wound 170.71.569.745.9235 986292 [id number]#1.00CD:1 27 [facility] Physician Orderon 07-08-2023 Physician Order [id number] [id number]#1.00CD:1 27 [facility] Procedure - Woundon 07-08-20 Procedure - Wound 170.71.121.117.55322 41443 [id number]#1.00CD:1 27 [facility] Progress Note - Woundon Progress Note - Wound [id number]#1.00CD:1 27 [facility] Multi-Wound Charton 07-01-20 Multi-Wound Chart 170.71.121.117.22148 62378 [id number]#1.00CD:1 27 [facility] Nursing Note - Woundon 07-01 Nursing Note - Wound 170.71.824.138.0839 874501 [id number]#1.00CD:1 27 [facility] Consent for Treatmenton 06-02 Consent for Treatment [id number]#1.00CD:12 7 [facility] Insurance Correspondenceon 0 06-30-2023 Insurance Correspondence [id number]#1.00CD:1 27 [facility] Physician Orderon 06-30-2023 Physician Order [id number]#1.00CD:1 27 [facility] Procedure - Woundon 06-30-20 Procedure - Wound 170.71.121.117.48685 85711 [id number]#1.00CD:1 27 [facility] Consent for Treatmenton 06-01 Consent for Treatment [id number]#1.00CD:12 7 [facility] Multi-Wound Charton 06-24-20 Multi-Wound Chart 170.71.121.117.20769 88578 [id number]#1.00CD:1 27 [facility] Nursing Assessment - Woundon 06-24-2023 Nursing Assessment - Wound [id number]#1.00CD:1 27 [facility] Nursing Note - Woundon 06-24 Nursing Note - Wound 170.71.171.066.6431 698588 [id number]#1.00CD:1 27 [facility] Physician Orderon 06-24-2023 Physician Order [id number] [id number]#1.00CD:1 27 [facility] Procedure - Woundon 06-24-20 Procedure - Wound 170.71.121.117.53338 65016 [id number]#1.00CD:1 27 [facility] Progress Note - Woundon 06-01 Progress Note - Wound [id number]#1.00CD:1 27 [facility] Consent for Treatmenton 05-31 Consent for Treatment [id number]#1.00CD:12 7 [facility] Multi-Wound Charton 06-17-20 Multi-Wound Chart 170.71.121.117.81300 70482 [id number]#1.00CD:1 27 [facility] Nursing Assessment - Woundon 06-17-2023 Nursing Assessment - Wound [id number]#1.00CD:1 27 [facility] Nursing Note - Woundon 06-17 Nursing Note - Wound 170.71.512.518.8725 185623 [id number]#1.00CD:1 27 [facility] Physician Orderon 06-17-2023 Physician Order [id number] [id number]#1.00CD:1 27 [facility] Procedure - Woundon 06-17-20 Procedure - Wound 170.71.121.117.78391 59000 [id number]#1.00CD:1 27 [facility] Progress Note - Woundon 05-31 Progress Note - Wound [id number]#1.00CD:1 27 [facility] Consent for Procedure/Surger yon 06-11-2023 Consent for Procedure/Surgery [id number]#1.00CD:1 27 [facility] Correspondence - Woundon Correspondence - Wound [id number]#1.00CD:1 27 [facility] Nursing Note - Woundon 06-11 Nursing Note - Wound 170.71.776.010.1862 159549 [id number]#1.00CD:1 27 [facility] Physician Orderon 06-11-2023 Physician Order [id number]#1.00CD:1 27 [facility] Procedure - Woundon 06-11-20 Procedure - Wound 170.71.121.117.70290 50989 [id number]#1.00CD:1 27 [facility] Progress Note - Woundon 05-31 Progress Note - Wound [id number]#1.00CD:1 27 [facility] Consent for Treatmenton 05-31 Consent for Treatment [id number]#1.00CD:12 7 [facility] Multi-Wound Charton 06-10-20 Multi-Wound Chart 170.71.121.117.28315 32077 [id number]#1.00CD:1 27 [facility] Nursing Assessment - Woundon 06-10-2023 Nursing Assessment - Wound [id number]#1.00CD:1 27 [facility] Nursing Note - Woundon 06-09 Nursing Note - Wound 170.71.714.241.2508 999895 [id number]#1.00CD:1 27 [facility] Physician Orderon 06-09-2023 Physician Order [id number]#1.00CD:1 27 [facility] Procedure - Woundon 06-09-20 Procedure - Wound 170.71.121.117.08309 33650 [id number]#1.00CD:1 27 [facility] Progress Note - Woundon 05-31 Progress Note - Wound 170.71.121.117.1966964120 [id number]#1.00CD:1 27 [facility] Physician Orderon 06-06-2023 Physician Order [id number] [id number]#1.00CD:1 27 [facility] Procedure - Woundon 06-06-20 Procedure - Wound 170.71.121.117.74850 60958 [id number]#1.00CD:1 27 [facility] Multi-Wound Charton 06-05-20 Multi-Wound Chart 170.71.121.117.26515 24734 [id number]#1.00CD:1 27 [facility] Nursing Note - Woundon 06-05 Nursing Note - Wound 170.71.287.736.0250 470416 [id number]#1.00CD:1 27 [facility] Procedure - Woundon 05-28-20 Procedure - Wound 170.71.121.117.25697 65312 [id number]#1.00CD:12 7 [facility] Consent for Treatmenton 05-02 Consent for Treatment [id number]#1.00CD:12 7 [facility] Multi-Wound Charton 05-27-20 Multi-Wound Chart 170.71.121.117.03019 09178 [id number]#1.00CD:1 27 [facility] Nursing Note - Woundon 05-27 Nursing Note - Wound 170.71.470.248.8570 279027 [id number]#1.00CD:1 27 [facility] Physician Orderon 05-27-2023 Physician Order [id number] [id number]#1.00CD:1 27 [facility] Multi-Wound Charton 05-21-20 Multi-Wound Chart 170.71.121.117.76795 63392 [id number]#1.00CD:1 27 [facility] Nursing Note - Woundon 05-21 Nursing Note - Wound 170.71.376.235.9284 164365 [id number]#1.00CD:1 27 [facility] Physician Orderon 05-21-2023 Physician Order [id number] [id number]#1.00CD:1 27 [facility] Prescriptions/Work Noteson 0 05-21-2023 Prescriptions/Work Notes [id number]#1.00CD:1 27 [facility] Procedure - Woundon 05-21-20 Procedure - Wound 170.71.121.117.44571 35515 [id number]#1.00CD:1 27 [facility] Consent for Treatmenton 05-02 Consent for Treatment [id number] [id number]#1.00CD:12 7 [facility] Multi-Wound Charton 05-20-20 Multi-Wound Chart 170.71.121.117.06117 88551 [id number]#1.00CD:1 27 [facility] Nursing Assessment - Woundon 05-20-2023 Nursing Assessment - Wound [id number]#1.00CD:1 27 [facility] Consent for Treatmenton 05-01 Consent for Treatment [id number]#1.00CD:12 7 [facility] Consent for Procedure/Surger yon 05-06-2023 Consent for Procedure/Surgery [id number]#1.00CD:1 27 [facility] Consent for Treatmenton Consent for Treatment [id number]#1.00CD:12 7 [facility] Multi-Wound Charton 05-06-20 Multi-Wound Chart 170.71.121.117.29516 61283 [id number]#1.00CD:1 27 [facility] Nursing Assessment - Woundon 05-06-2023 Nursing Assessment - Wound 170.71.121.117.8294032590 [id number]#1.00CD:1 27 [facility] Nursing Note - Woundon 05-06 Nursing Note - Wound 170.71.507.570.0886 045198 [id number]#1.00CD:1 27 [facility] Physician Orderon 05-06-2023 Physician Order [id number] [id number]#1.00CD:1 27 [facility] Procedure - Woundon 05-06-20 Procedure - Wound 170.71.121.117.83796 31840 [id number]#1.00CD:1 27 [facility] Progress Note - Woundon -0 Progress Note - Wound [id number]#1.00CD:1 27 [facility] Correspondence - Woundon Correspondence - Wound [id number]#1.00CD:12 7 [facility] Consent for Treatmenton 04-01 Consent for Treatment [id number]#1.00CD:12 7 [facility] Multi-Wound Charton 04-22-20 Multi-Wound Chart 170.71.121.117.64794 59014 [id number]#1.00CD:1 27 [facility] Nursing Assessment - Woundon 04-22-2023 Nursing Assessment - Wound 170.71.121.117.1451730826 [id number]#1.00CD:1 27 [facility] Nursing Note - Woundon 04-22 Nursing Note - Wound 170.71.096.684.8904 805393 [id number]#1.00CD:1 27 [facility] Physician Orderon 04-22-2023 Physician Order [id number] [id number]#1.00CD:1 27 [facility] Procedure - Woundon 04-22-20 Procedure - Wound 170.71.121.117.77484 71547 [id number]#1.00CD:1 27 [facility] Progress Note - Woundon 04-01 Progress Note - Wound [id number]#1.00CD:1 27 [facility] Correspondence - Woundon Correspondence - Wound 149.45.122.13.48626893876 [id number]#1.00CD:12 7 [facility] Consent for Treatmenton 03-31 Consent for Treatment 159.140.128.34.6958681241 [id number]#1.00CD:12 7 [facility] Correspondence - Woundon Correspondence - Wound 170.71.121.88.35798992970 [id number]#1.00CD:1 27 [facility] Multi-Wound Charton 04-15-20 Multi-Wound Chart 170.71.121.117.74247 01942 [id number]#1.00CD:1 27 [facility] Nursing Assessment - Woundon 04-15-2023 Nursing Assessment - Wound 170.71.121.117.1627006977 [id number]#1.00CD:1 27 [facility] Nursing Note - Woundon 04-15 Nursing Note - Wound 170.71.151.707.8761 029833 [id number]#1.00CD:1 27 [facility] Physician Orderon 04-15-2023 Physician Order [id number] 65790 [id number]#1.00CD:1 27 [facility] Procedure - Woundon 04-15-20 Procedure - Wound 170.71.121.117.82304 00201 [id number]#1.00CD:1 27 [facility] Progress Note - Woundon 03-31 Progress Note - Wound [id number]#1.00CD:1 27 [facility] Progress Note - Wound [id number]#1.00CD:1 27 [facility] Correspondence - Woundon Correspondence - Wound 149.45.122.6.236352327871 [id number]#1.00CD:12 7 [facility] Consent for Procedure/Surger yon 04-08-2023 Consent for Procedure/Surgery 149.45.122.20.24163109266 [id number]#1.00CD:1 27 [facility] Consent for Treatmenton Consent for Treatment 159.140.128.36.9929773712 [id number]#1.00CD:12 7 [facility] Multi-Wound Charton 04-08-20 Multi-Wound Chart 170.71.121.117.71071 49513 [id number]#1.00CD:1 27 [facility] Nursing Assessment - Woundon 04-08-2023 Nursing Assessment - Wound [id number] [id number]#1.00CD:1 27 [facility] Nursing Note - Woundon 04-08 Nursing Note - Wound 170.71.651.822.2346 692204 [id number]#1.00CD:1 27 [facility] Physician Orderon 04-08-2023 Physician Order [id number] [id number]#1.00CD:1 27 [facility] Procedure - Woundon 04-08-20 Procedure - Wound 170.71.121.117.55932 55999 [id number]#1.00CD:1 27 [facility] Consent for Treatmenton Consent for Treatment 159.140.128.36.7013992572 [id number]#1.00CD:12 7 [facility] Multi-Wound Charton 04-02-20 Multi-Wound Chart 170.71.121.117.22826 85437 [id number]#1.00CD:1 27 [facility] Nursing Note - Woundon 04-02 Nursing Note - Wound 170.71.380.482.3002 185104 [id number]#2.00CD:1 27 [facility] Physician Orderon 04-02-2023 Physician Order [id number] [id number]#2.00CD:1 27 [facility] Procedure - Woundon 04-02-20 Procedure - Wound 170.71.121.117.82224 89305 [id number]#1.00CD:1 27 [facility] Nursing Assessment - Woundon 03-27-2023 Nursing Assessment - Wound 170.71.121.117.4247239545 [id number]#1.00CD:1 27 [facility] Nursing Note - Woundon 03-27 Nursing Note - Wound 170.71.269.447.9767 019119 [id number]#1.00CD:1 27 [facility] Coding Summary.on 03-26-2023 Coding Summary. CD:[id number] Ww+PG hlYWQ+IT6EUEOpG28yeNLxlT6 uN7BCFYsMLmqrTGQBHRjQQxTf wbIkAF6hoUVeRILm IC8+ER3fANPkHtutjTEvr6Y2z KP0T22otb9gITdwjYQ7ATFbWg Atnziev0qczNq6YHzpQavmTbY t XBPsrU79CBH3zX71Sa64fROkj VGga8pyoOi0BpRoYMJiNYM5yL vvRTktq8IkISOgK17grYCmc1T 6 KSQddFqwgJNtHoAfeEK5mN2dP Fdivnaph8vmmgrqAlh6mf72xJ Loh8M4gQE9Y4EtjzF9FHWvhQP g UoneuNCQcZ0zurwvn4axioixU kYuDRFiELl0FUr9HBPaqXxaKf LcOO31UZL9PWBpngBaK9OnABI s jNudMjL5h5C9Wy6NR5QPUovqN 1VNTUFSWTwvdGQ+UQ72xo16Q7 QeQjreAly3SEFaNEJ4lHB0xV0 n MNTdWTxpw7V2dEN5S9DcilPbh p8lh8dwYEOnZLuoA37avACmn2 K2LNVjuKC7WFSeeWhySsOljD0 3 Oyc+DRRwlQdib8OvFpzae3qul 2cfhRj6JycqBNKdzwYhzHopYK E0t7QxIp8nFKCiwOG3bIF4fJ9 i PsTfQzV7HTtgZ003VdJrhRZpZ wcdD83iG8OjsKZ+IKPtLds3EZ TuiHywFZ9fV3VjUSTzhyxthNB m bCelWH0xHFVpburaHKDqpH2wJ KByD4h6MmRkTnZ0NThaT1CrZG UgorleZh60fZ4hXoWoQqL5QIm u F4TcyrW2YPTclKZfPOodPSD8R 34az3H0DXChNOYpEQE2zXQ7oW 1hbGlnbjogbGVmdDsgdmVydGl j XFxuQEkmO391TQXhrJnaCuLnF GluZyBEYXRlOiAgMDQvMjYvMj AyMzwvdGQ+KMTaMFG4lNsrSRY n aZUtOFvuZi3npHdiqKmzUL8cI FYyutpwUMMkkF0lLNQulHRuyU emHP5dQOImemwii261ObDeOWC 0 UPDebPJyE9GyoB3hIwFxOYLwF NUmB4JpdMMcBBwsZ540PFwvLy L3NSLozmLzJ0CbQWWceMzeYsY 0 c8I5Vl7Qh5PsighwA3VvzZLqB zDgSsuwAGe1L8YgZbvutNZ+PC 48RIHeFO88SCb6OCZ6sMemMUe i MGKdK5AhfX3aNaLdBLAyXIFdC yc+PHRhYmxlIHdpZHRoPScxMD HvGnExcLizYG2fJw4hKFXjLWB v qYkfvCMfNxCab0vvKMVyUObrP C5gpKltC1RnxLA7UFLla6d7Bj 36Y68mG0QvaSG+OVAnkEA0cVT 0 xU2mSeRmCxK0OWhxE254LbQiv PUjGsroz1gch4ditOa4ClK5EG UbzdHusWioZRM7p9RtTh00M36 s IHdpZHRoPSIxNSUiIHZhbGlnb x2isR2eIa0+LDFovXF5bES8xZ 7sVsAtZnB9SLspO062FaXbdQT v Lygri0fzr8spkUd3GlMjDRJej xDmkUlbEVK4i9XaQd90M7JuwY tmo6FkWud5em47hYDjz0J6fUN 9 Q0CmUEQdqyussIBwmHctAZ1pE BMmbbaxXFSxgD0gOFHeP7z0De RhTfK3ITauV5MdccE5SSCbwTS g LITzrRUElD9xzyzbh5ynoyfvT gXuZATpTTb5ZSy9ZCXuhRyfAh WqIQP1YfZ2NKP1wOGteY3neUc n cdrriJ8rThs+JBW8tUIqzFDGN R9uEcrmpKC+IZCpIGB2nDgeOF ziTRDgcV2nSAKvG9i0GfUeOzM 1 PHxkL7QggwM8JTSvwAQzFGAfg OQVqM3humahs4mmudfhJrGeAP HoCSu7EZq9RAXrsLjlLcIvLWU 0 HmR0DWV8hKMzeD5acFilyovij G9wOyc+NocrdUxvKTK7ULo1I0 WmIvy0YPBviBoiKQ2fbKTzVOk u Zd9smUjleQvcNU5qILPszrleb 051GwNmp6kxNROoaSXyFHpfLD Z0X03ap4V7TBHpBJSuDXZ8oCI 4 rI2hzJomsfhqkDXxaLrzqrEnr FwyMKkySIlzN965BTKpjUmhLf MiAHw2O1NiQcv8JYOdeNmnYV6 n kSVyTPsfMg3ctDuaqEblFI3eR HMybvuqy542IdGvp6pgUEGawT BaVOszVEC1Q06vr9U2ERBfFSM w TYL0vHT8uF0wcRseadtenWLnu IedgkVoaDltZUfvIJrzW853RL VkwHtmQqTaoUo7D4JxIpp7PML z hUdaQF7ucJDyOHmpJf0cjVsbx MnhXT6jNMVzgaebb971OwSwj1 jlFBRhaWBrDOpxPVS9A47aj6G 6 JRFuJVMpILC2bPI0nM7gtOlsg jogbGVmdDsgdmVydGljYWwtYW fbD728YHPfxNnbYlIukYpvopQ g YEkfJLu7P6NvCqixnBQ+PC90Y RNaHH53iIKvoEDwi3cuyRh0Yq UoZBLcSBY5eBjbEFteg6MmOWF t N64ldZVax6W5LXLnxCjqmOYiR yUdzCM8vP5jTOxjrcdmm7mqpz ltGmvkc7yxyx77oB28K75vWOm p RYTnBQEfHLKkEXFzyAuvki7ry G9wIi8+NEWjpXO5sQX7eP0pLQ TrRlY4ZTzcY162UuRpvTWaChu j v5xhz1injMf0KpT1XRBwbfUuc AaoWNB5e5HuGj58B43tLCqkGE CgBKZwQZPwGRVetZfuvk6mtL3 w Ii8+QANlxFG0dHK0nZ7eSjTdM iM6XPvzL082AxYyhKIcKdciG2 2iU2TwhXQ+NBUoYgy0JHHydOo s JO9pqSYxEKorBb2zSCH8JqHfW pWeGVyvV2HmUXZyscunlxdarW I8MQZfLBLusS90Os3zoOfqFCW w cFQNjX5rxxdba1yxewpvAoZmK JTvMBu7WSx3DYZivUijZlVgOF F6RgN1LCW3zXVkwV3taAatzea g fI4kH9XcOIOnmimfIp77tM7eO bEfDqG9FDyqAnd+VEFOTkVSLC JOD53DQJTdTCwboNN+PHRkIHN 0 wYxiAAdkHHBnpF7jRQOdX5h4P nAcOtB0DLclA1LoIAUhecteUu 08pV5sSgPtLkO3HCdzO1FymvI 6 VYGyjKZmHLyuBOX9U15ir1W7Q WLcVPQhYCT8fOV8aQ3bcTqkhg ogbGVmdDsgdmVydGljYWwtYWx p W414EHZmhMynRjSoRiY2YjT4Q Bz0E3DjUml0EKGsxNroSC7pqR ZmAIkqYf3wdGfqgQahDX6nYGH p yuonZUZzfC1wBHLnzSHofGxtF B4hCGSgxfgas124HtNjIWJ7LS WacNOsI8BulG2hDrOnZVWtGUG w M7HcaYJsXRhlM404JMqbQbF2N LYqbrWdU4YyCKAeoSstIkN3x9 J5Xt30MRPVACHehnggnCU+PHR k CWL3mSmuVOuuXZYmuL6oZKHnS 0m3LwBcNoQ7QScwJ4YrFYVocn dbGs42uA8sUzNsDyG4CJfeY5L v srS5XRJbhBJbHPscCTP8L64wo 5F3TFHgMKSfHYX9mLA3aI0baA lnbjogbGVmdDsgdmVydGljYWw t GHitB590JJVhhGdyEw1eiNU3Y 2QrWqb4KOIkdHeoOR5rxXXwOQ mmLx9rfPyuzFqdDI5sAFWdjhp w IMCntG9xKRKnoXBudKkdXK4rV XPgnrdhw211AuGcTGO4BIRcnU RqD3UgfS5pAkIcZCSaLYLtW3F l yBDwRTpkD021KMwlZhC9VFNdt gQiZ9QxSHIqbFncSlA3q9X3Qz 9NcHPaRPLcIF69VE26NT22P3L y PjwvdGFibGU+PHRhYmxlIHdpZ RMvWComVRXpBbGqxCrxHC8yGv 8vOPKsQLGqxSlnlAYqQwSdi2u s FLSjDYzbSN3idWnjI4BccQN4L NZqy7n8Cn92O14hH2VttGF+PG VptBC3fOO9yC2wPtIaQbI0CUm p C973ChTsbRJdBxxvt0zde5pnq Nc9SjNyWVOcudCroWxjFAN0s1 KfSo22I29dZHggXVOcQTScTXI i XVAwvHeyof0yvF9oAc1+PGNvb LL4dVH3vE9vWfNzHhP6MWiaS7 62JqIbeURsWnhxD30vY0KirYL + AZMpOup5UAUujOpkUZ9fjEBrK WyfEy9hNQW1VjTdTrEmETxeV7 WeYPAsmtazoempvDW1SNIqKBJ w cE60Vs7srYosFb0jMPOrUAR7A LAowMUpZ3FgaC2fFsOpLQHgJO ZeX4QrrEXdXUsqT409QSsfTrB 7 OFCfgyZwB0YrLNPpiVplEoT9a 4Z6Nu6RpXahsSFcCL2qKxTiJS x8Q5PgWab0MDHueYulGB3umEL k DAiwBv6xhEeghTuxHF0oLCTmn bgau251KgKfk1tmXONeeRFdAL bnMHH3V01bf5S6NOVqJELwFJQ 7 yIX2xQ5ixYsaemdjaUCtfOzvg hZsxFcmXUsbXCvtE357PNIxoW udBlERWhn6O0IvRxb7NMToiUv s QG2zmFSsRUjjRp8qiWyuwIdoA Z2oJOAahdimo476TqWmm4ihMU NqkPKwMIfmUKN7L26ms9B1YQE w SEHdVXB8yMN1yD9jcCzlbxkeh GVmdDsgdmVydGljYWwtYWxpZ2 65JQUvhTivWt0ZGrc3C4HeEkc 0 GHDdfBhhHG2apWKmHIuzOi1bv LtzkPglKM3dLGRbugcma713Zl Pat3iyXYTaiFEiVMbvJCT4F41 s p0E0NMFxBYQiYGY5sAQ8tW4hn GlnbjogbGVmdDsgdmVydGljYW syIJriO362EERvkThzYrGqkTF y OjwvdGQ+KT24ih35W9KlSpqtU xn6ZFYfVOB4jYN0nE5tPTLpUH qbn6W5zJT1D0XzowNidc2ll0d s YXBzZTog (more content not included)... [facility] Consent for Treatmenton 03-02 Consent for Treatment [id number]#1.00CD:12 7 [facility] Multi-Wound Charton 03-25-20 Multi-Wound Chart [id number]#1.00CD:1 27 [facility] Physician Orderon 03-25-2023 Physician Order [id number]#1.00CD:1 27 [facility] Procedure - Woundon 03-25-20 Procedure - Wound [id number]#1.00CD:1 27 [facility] Progress Note - Woundon - Progress Note - Wound [id number]#1.00CD:1 27 [facility] Physician Orderon 03-19-2023 Physician Order [id number]#1.00CD:1 27 [facility] Procedure - Woundon 03-19-20 Procedure - Wound [id number]#1.00CD:1 27 [facility] Nursing Note - Woundon 03-18 Nursing Note - Wound [id number]#1.00CD:1 27 [facility] Consent for Treatmenton 03-01 Consent for Treatment [id number]#1.00CD:12 [facility] Multi-Wound Charton 03-17-20 Multi-Wound Chart [id number]#1.00CD:1 27 [facility] Physician Orderon 03-14-2023 Physician Order [id number]#1.00CD:1 27 [facility] Procedure - Woundon 03-14-20 Procedure - Wound [id number]#1.00CD:1 27 [facility] Coding Summary.on 03-13-2023 Coding Summary. CD:[id number] Ww+PG hlYWQ+SR8IRVTiJ79lwBJtvA8 oD7IRLHxXUcznMFHKTQyRAqDx npRnAE8mbAAxNEMo IC8+LL8tJSFmXvykzCIfc8O7n HP2E20hkc5zNNlaaEW1YSLmRv Yxbmffx5otfVs7YWciQsxzRuT t HJFdfO92OSX5uL25Gq27nSMso JCso2vkqKi8AiNhMCWpUPR0fI dxEOljt3OoVUBwH29mqOZfu5C 6 LSTprEdhpUJqReZztVL7rT5dY Mqmemwyl8htqyogBui0ei14pL Kre3F8fEB4C4JkhrM3YFNxuBE g QytltETIvP7mumfsx4rwdvzoB pCwJVJrEHq2PJu4FHDnrRxzUt XtWG26BLF9DRXajoTuV3OgBWM s lRxaFfH1d3Q5Uz8PH9AAVihsG 1VNTUFSWTwvdGQ+TM79nz95X2 YpEhrzYxg1EOPuPCK5dJO5kN4 n RYPdHZvsg6G6nGL9N3MtseFfp i0bw4xgCNGeWZuyE06bfCZie6 Q9TATmuUS6CYBirMasQxNrxH1 3 Oyc+YMGunDtqz6HwIrkfb1dhl 0basNp8PjqoJLXirsIymNhtQZ U8e1SeAs9oLAVcdQN4bPJ6qR4 i QwQpWmC4IAscL208AkPvmARqY fbiR73iX3YdlWK+AZPrYsg9OW VltPotCS8uO9HoAJLmibcwyES m aZorIH7cGASverekJKCryB9wN PZbX0m4XgDsThM4FDbbE4AhTP RrwqjvQf03lR8qJsFdArF5KCb u Z3PkaiP8XGLmvCPlCTjpEYA8N 48gl9M0EQAoHFSvPLP2zNP7nH 1hbGlnbjogbGVmdDsgdmVydGl j QWifOBpzU924RYTwxPdzJrCqZ GluZyBEYXRlOiAgMDQvMTMvMj AyMzwvdGQ+XDWaHKG5nHpwWAJ n dOYuMElnUy6ufTokdLxzXK2nK JVyljcbXKQywT8dPEKpjAYgvB bsTW7xHRLujcjjd542YwTgGKG 0 SSLriHWhK1AncD7dUsSbXYHyK YHgM2PwaUVbAEcjU239GUxiSa D1BEBmsyAdL0PyIIMqxNmpJdC 0 e8A8Se3Wa5EdsavnG3LdqUYsY bBjRynzMXq0W0RfMjuewLV+PC 52WIHzZU47BVn6VCT6wVztHJq i XFCkW2KzjL2hAwJeXBPyNNQxE yc+PHRhYmxlIHdpZHRoPScxMD IfGmDojMrcYQ1zSw1pSJFjZZQ v iDnjgVJbNzBmi6tbYIJoKIvkH X4yzQjbF7IddSJ9XJTuq8c6Kq 05U99iP7KrpCD+EPQiwAA3mKK 0 zA0rCyVkXgI6JIjjY269QgOrw UTkAiejl9zue3illBo5KzM5PQ IgyfIxvDhzZIA9w2TsEp34V33 s IHdpZHRoPSIxNSUiIHZhbGlnb s6jtY2tTk9+WIBedOS0lNE6hQ 8hSjKyDgU6HZxzW523RuGzeYP v Xmcrs4lpl7qctVu5TjQxBSCxd uZdcDvfDFE2c5AsIo84X3IevO yyw3QiPjt3ci24fOGxx6N8wJY 9 X1OdRANychwmgXOpbWtvYN6zY TXpgfyvRXAnfP9kSYEiG6r8Hg TeGnQ9OOanW6ZsmwA0ETWufYX g DSUieCPLeN8kmkpqi0pqwephW wLbIDFxWOn0QAx5MSOazDapFl QmLGM0QoJ3YYF1vJUlaQ4tgSf n hqjbuQ4hNwu+QQE7yUBgzSOCW X5mXqncwRS+UFZfKZE7vEuePR neOCNqpU9uACGpX0m6AgSfEbL 1 EAswJ6EbfaF6ZYOjfQLcTXFij OQUjW9swjorv2lmcjiqDdPyOC ErCQz8XFm2IDLtwLunJpSqUBU 0 VwB1PYD5xGMysO2naXiolyaqs G9wOyc+WvyjsYtnZEQ9WHw7W5 JqFoc2AJXrgZjyFV6jcUGpMCn u Ar6qfFoepAvdIF7wZUBqqvewl 483LjZcz7qlSNPjjMMyHVdhAY F7G71lr2B7RWEeSXXiYVY7yIO 4 hU3lbYacqfomlUPrlVckxxFpb UihOYuyOHneK375QGEzdElrTt PkMCk6J0EgXbq2HPWjfLcvZX0 n gTRxWLxiGk1cxGprzVsdOV6fI DPlmwgqn601YhNzm0jrGNQmuM KzDVguJRF8I46wp0S1AXMhQQE w OZF8aZZ9yZ2mkZxqhcofpSVdu WkhsjQhnBelUZodZItnO850HS CfkUttBxDqqAu5F9DjBeg5ASS z yUbsIM5bjUQeMGskAc3kzWejb FecZS9sXLBiktipn036UfNec3 xvAZVfmUHrLPsqZIP9M73re7R 6 EHKwLKDjBGF2wMJ9aZ2nwXefp jogbGVmdDsgdmVydGljYWwtYW xuP418SAAxzLqvUgVleGzrewY g IIfaTRi5B2YhJlchnAG+PC90Y XWxUW18hSDjeRDca2aowEb2It MeAJRhWXK0vXqoWDhrw8NwQHR t R96eiAMzd6J1WUPgjFpohNTjS jRgpLI2jC7bPAfdkktbt3gpgp afCcwwc9ifwl25cG68D29vDCo p NQDxLIHgWGXsELOqlRchgc9wp G9wIi8+FWOnvYL4qPN4lM6tLM TkKwW5CEceL284QcBfiTUjObt j t2yiu9oufXf1RuS3LYPjmxLpr HzlPNT2m9AnCi22K69cFCnjOP RtHAWiLUJiZKJjtFtqoj0iuL5 w Ii8+ZACriJB0eBW3zZ7dXyUeP dG1ZRalF721LfEzdAYhXqilX6 6wU9WseQZ+ZHBiObj3QVSvfZn s JN5fgEVbRFghFl0gGXH4QaOrX ySeKUysI0EtBNJqwprpkmyaqF G2XBAfRENhzM51Xt9ejMhmAYK w mWWZyR1hyrlwp3gzjytaBdVfG WPaTOi9TFu6OMUtpBapWbTeWR C0RkP8TBC6wPHhcF8fcAecszq g qS3cR2HlQPIadwskYn98yZ6dG nBzZiW9ZQvuDhe+VEFOTkVSLC FAR05IDPGaLWromRS+PHRkIHN 0 aFjaEWblPNZqdT4lXMOaI9y2I uPvQiJ4INmeT5BoTPWckwmrZs 83rF1aWjAqSgT1RIyeD5EaaaG 6 BSBrxGPyKYqdOOT5Q78zc8Q9S SVzRWZdBMZ1tHV1rP0icAdjsi ogbGVmdDsgdmVydGljYWwtYWx p O050TPWmiYdjKfSgFvB8XuH0K Tp3S0JkJlk9CBEedEpmQC4sfU JmOZrnLm0twHjxkRvsZJ7aPYG p yfvdMKWpkY1bYHNdnJPwjYvaV J4iASIjypqhv148SsCwEGH5MR IxqGAkH0UamC7qFtDiOZZbHVG w D1EcgPRuEDxnY609CEpeYuD3U LZqfjNyN0OvXJMfxOpfLtI6y9 T3Kn85RRKJZVTqfwkpnFS+PHR k NQD7aMhbUNbbOIYclN8lBMDrC 4k0JxKlXiV6ZXepK0ZnLUQqol qsAc42dB9jBaJgZpD0KKpgX0P v ltV9XBMsyYKrXXzyBDD7Y86xe 0N4TUTyJJHyXZH1yXJ8dA9ypE lnbjogbGVmdDsgdmVydGljYWw t HJhjE072NRXjsTgmMd7qaSR9M 2CsGzz3SAQlvLvmXH2jpUBfMK coYe6zvOlvyFjgWG1fNVSceka w HDOuoX7xGAOjnEKnyRpmBB2lS MWzfayuf615EfCeSSD9ZOAszT TmY6OdwA0gBbZfSZCaVVOmM8Z l tBMkLUzmI881CHueDrY6QWUcj zCqV0LhTTQebBflBdQ2o3F2Tp 0VvQYhTBVeUL82SD18MP67K4U y PjwvdGFibGU+PHRhYmxlIHdpZ KOaYZztWXHsSfMvmAyrPY3pBd 8bRZTjQJRfeGfnbXBmPzZau5b s DBPzJIlvLL7gcDzjX5MwbAH9C GHdn7f3Fa77L95sT0EjdDJ+PG OjfUS0sBK0hV0aWwCpGaT5HOr p G653KbWraZIkGcxtl3sdt0zry Sh2ZiJdSPAqzbYdqXonACQ6d6 RpBa91V84wFQrpBZGaLOZvJOV i JOEhdKhskl1rfK1mFl3+PGNvb DD4eLO2tH5xKpQyTkF6AHimG0 63ElKanSBvAilyW51iI7KnvHQ + CYOuEkk2CUYdoDcbPR1phSSkR UdhNq1lQIH0HjFgHdQnFNgzO4 XrZLIhzzhzjltbqSI8HYLfBGY w dE92Vu1fwNkjSl0rUVViKNM2V EBljSGkY5BoeU5vMyDlAUPvTL AbZ3XegANiSSzjO918DTrbSxX 7 EODvbrHkB8LeJLUzmTznGsE5p 4I8Cl9KdLexfSXzRE6pRtUaTN d5W5UrHvh1LFUczNhaXU2lgFV k DAepHi4ayMkftFfbHZ1xYFUit rzli395DvVlh3gtOVDhlRYbTR qwNCR1V70ku2E4HIXkPPRaEDG 7 dEL6yO5icLdikjebwRIlyXnmu xSlcHswGRauRBbuF458YZDyfS jdEyKHOul0B3BmGua5VUHelCx s IU0dvNEdBKmxTc5ohVtvaTaoI S4mRKGsayays071CsChs0iaYH IdoNQrTIkvBBB1M83fu0J9YQG w FMOjAOL7sGY1jU8epEwqrqvtw GVmdDsgdmVydGljYWwtYWxpZ2 80HFXcfQjxRf4ISqx8L9KfDzg 0 KECozPleYO5xsMVwEBluHi0vz EiaaFqyFF3oRDDxfnndr925Uy Jny8sjUSNfeXIiMBlgZFP8L57 s g5L6IECtPXVwWPC8xFP8dE9yh GlnbjogbGVmdDsgdmVydGljYW blDNfsA773GVBoaVpcOzCkzMO y OjwvdGQ+TF49ep64Y8XoMuhvD jd6LFXkZIG7gMG8kB3fMTEjNL xow9E6sXI5F8ZrgpWzrm3is8n s YXBzZTog (more content not included)... [facility] Multi-Wound Charton 03-13-20 Multi-Wound Chart [id number]#2.00CD:1 27 [facility] Nursing Note - Woundon 03-13 Nursing Note - Wound [id number]#1.00CD:1 27 [facility] Consent for Treatmenton 03-01 Consent for Treatment [id number]#1.00CD:12 7 [facility] Coding Summary.on 03-06-2023 Coding Summary. CD:[id number] Ww+PG hlYWQ+GZ0ACYTwI26tdYXnxZ0 oO3EUSQxGKcycJVUDFHnDBnNi hbMxOG3lwQYgFGHi IC8+QZ6lZXVfFngwkWDny4U3l SQ3X24rvm9bGEdifOL8CQVyCk Xabwauf3kwnZo5XBihBypqFoS t TUUgtF40OWO6zJ50Sc95qBToc WGol4syoSa8KaCcTSGhDLF8nU leHTzpx7RpOROdX99haURow6I 6 GMUttUnimDUzNkUkzHQ4aN7mN Runpkhlh0homssoGql3fh27nC Mgw2J1mJD6D1JaynD5XSUwaPZ g GhyhfMJXuG5ttzfwl8sowwceZ zXkKQDkXUb9REk2TXBgnUwhEs GtHO86AFR6YOXxhcCdC2OdFMX s dZwyNpD2d9T3Kg3YV8FIOmrfA 1VNTUFSWTwvdGQ+XM13mc40J5 UpLivmHek6GLAvGOV5kZL8eZ6 n CMFvODuzd8E2fCP9S9ToqbCly l5th0ahQZRaOUbqZ17dzJGtf3 Z1VNBqvEN4HDXmaUtfJdBitL0 3 Oyc+ZFWciFltf5WzUjccl4say 6oiiNs9XwvwFATzoiIjkZzlZN Z2p3BmCp8lSFZavYH0hWF8iQ5 i TsQaNzL9XUkuZ550LrSsoHGkT eohM54cN9KeyVY+TVLkAfn3KX MpzOnpYJ0tM2TaSKKlsbslvHN m gBieYQ3fWHKfbzlbIBYguB7sY LJvG9g8OhJpIiM1TTkdJ3GjWK XgwgywVp22mI1sFxMsElD6KId u Y2ZalrU1ZMHwlLKzEPnkXCH1Q 61is4K8OQTbPANmRQB2mJV8zF 1hbGlnbjogbGVmdDsgdmVydGl j PDnzMBoxD045RDEmhYtvMwFhK GluZyBEYXRlOiAgMDQvMDYvMj AyMzwvdGQ+QKLhSKP0oOacNQC n dSXbMWtzWa4mfBebhForGB7cS YWrlfuoCOPhsM8sVDQtfMUxdX joBZ1sDJGtnowks132DpBhGCJ 0 BGHqiRUkN8ZkwA6tNaHnNVHqI XJlW9YsxXTkJDnqO003HJsyTk G4NBUxzaCyE7LoVMProVfvGiM 0 k4R9Nw0Uz9AsgocpQ7EvxTGuY iTzSxurNVq9X0QpTygwjXH+PC 32BGCiJF86NVl4SER0pWtmNVv i PKLcE5RhjN3kDaQkFALwOTNfI yc+PHRhYmxlIHdpZHRoPScxMD VoTtUdnIrxVH6aIk0tZDLqZHM v wNrzrUDiHdAky1bzMVDoRFwbT B4ccNwvM9NliYR4QXEqq1z5Lp 90Y41lV6BveEU+RUBetSM3pGS 0 zP5lWzGlUdR7NCjjT870RfTsj UKcVyaxd5sxu1yboPd9RhL8JD MvmcBdfWytSAY8b6GkAe84P84 s IHdpZHRoPSIxNSUiIHZhbGlnb k7ghJ3jRr6+FKDmeWU9bCR0mS 2bFjMkVbC7ICkyE150RyCqfBW v Mgwor6nrn9ddjEt3MgBrIANlh wHwvYdcLLK8p8PbYo98M5XwyM apn3KyUcc4al52nFPtw0I5uVB 9 A8HnGQVpjivsfTRzeHhtYB8rB ELsbxpdQFBqxS9qUIUvS9f9Jt OzOtQ2ORzvK3FcddZ9YVAduSQ g VFEirGGUiO8hkhxoe7ukbxtuI lObBGSaKZx5SDt5PKNatWljKx RaQXW6KvB2ABQ2hURtoN0cyHp n rzboxZ0iSuh+PDF5mDOxyNCTI M1yChmieJM+SNKmWIH9nNzuRH gxLOTlbV6cBPOvP8m4EtJxJaT 1 KEkuN7QypjQ1PUKusVVwAMQzj CMMkZ9mwqvcp0dokiltHjTzJW BfSOc8KBe1CFAopRioFwOrBOT 0 QqI8YYR6eRAveZ1deWzpjlxpc G9wOyc+LlyyaOajYYK9SHk2V3 ApPmv1TUUjgXacQP6cuVXdXKi u Si0qjGnezJfzCT4kMSWesjitp 256CnJik1ldHLPrdBUoYRckLK A2G99kt1M1DGLpIRYpTHN2hQT 4 wW1nhTqeewltpHBvvOzghmVur EqvVFxvBCzoB169RGVvzVyfIp MeQXa2U0RuKia7DQLapMtpAW8 n fTXxGSbnQl3hnAoakVdfQR9fI BGccagkh585IgIyu7fsCYBixZ HqFXesSPQ9Y18fu5D0OAWgICA w ZGT0sPY7bR6ksCtskwpetXLpe JvwokIxbLctHMwtORzkG706DS HxnRoiRzPotYf0D0UxAfe6JTF z eOpdSU3dbWFvEFjhWv3kuYrhv AgaEZ2oNZEcmjtpw988RfDhs9 meMJShtUWpQGihWDP2L86xa5B 6 TQReBOQqLYL2sVK8uD9vyQbaq jogbGVmdDsgdmVydGljYWwtYW ubT836JZAdaJftNwFczKahatU g ZJsfCHc9T5SnZrauiEU+PC90Y CCbGY75nSCtrZDpd1vhlOx7Ic RvRIBlPHS8gQozZPedh2PoZUK t Z80jnXYul1B0GGKpfYvviWZmY sLclDD2iW7jZMkngzzii5yxdf vcCqfiu6lzqb76mF20R56sKUm p LNRqPNHpSAJxZVKwnOxmvx7fz G9wIi8+GFQnmLE4eYY9rN3cOX HgMaJ3ASolY921IjEtxRAgSly j b1qmg8yxsJl6ZnJ5XITxkeIfc PdgUPI3a8LdCp77X09lBTnqUK BnYBEnNOUmLXQdhYxcmc4wnU2 w Ii8+IGRvqNC8lBO7aZ4xJjGfW qY7TUbdU225JeZttHYbBomvK0 7nR0LjtRZ+BPUuYzv3ANBpvMt s OA1ytCOkDMloOi3tZUP4BuYcM wTcAHdzQ7RuCBKncvcamejogF F0OLYkUJAdlH32Mr4noEsuETH w aIJWwH7rmuech8eqsxzwZkTaV FQjCVd6JJa1MHKndTzeRuCaIH M8RnK1AKM0eLBxsW2wiVigkvg g kN9uE8VlHKAaphyePp03gA0tG zPuJkC2IQkeHpn+VEFOTkVSLC HPD92KQJSeVAhpmBM+PHRkIHN 0 sRmvZGswVNNrwR6dXGLpQ9r2E lWtXcF0FRegK3XkJGRmvjjvCn 00mA1xQuDlNaI2VWqnT2TwtvE 6 PPNouLVaDMeaTES8L83ig5D4X ACnQHGbKPD0wTS6vL8puKzzrd ogbGVmdDsgdmVydGljYWwtYWx p D709TGUyyKipOzGsMgQ8AxH2B Ew4Z2FhXsa3TQRlfKhvBH8xiP ZzIHwaDt3nuToepYrrWT9pKLH p msckFBOlyF6kBMYvoGEpeMadH N1xEXDkfkmce988VdJrVUJ1WM QeaYDoE9MgbJ0wXgVnYWSaKKV w P7ZxhBSxODihD295TPcjXdU9B DRiqfOpU2PoIBIixJngBlM8n7 S9Sq61WTNJZRXwvzvonYG+PHR k UOS7xYktMQdmWWOvnF0kTDHrM 1c5TfXwXbD3YOagJ3HfLWWydp hfHr22jV1dJgWxZjU9YVujN2N v csS2ZHBcjAPbNCabTOI9N82oa 4Q6YGPqUGZeXFP2yYE9lY3fzR lnbjogbGVmdDsgdmVydGljYWw t RSwcK985HISlzUagPh4vqVC2L 0KePmb0WIVyfTfqQJ0zvBTwFM rbOs4wlSqknWvlYK0mPYDkwzl w VMVnmP5qHSXnhIOflSosYC8lW LJanaivw411NnEeNJC4HVPuqK LsC5HwlI1pRmAxBFSaLDTuY9X l lKMhLGwwT769XJvwWqX1OVVdr lChI9ZiJLXmhTugGkD7s7C3Qg 7HfZRpAVZlYJ25EH35AG35Q7W y PjwvdGFibGU+PHRhYmxlIHdpZ GThLXumBOUyJiIueWmnSD6aKj 5aQTLvYTIaiAbdkCHtVxXws0i s DUQvJRxfZL7yqPpsX2OhyUP3Z FVtw3c0Ju31G02yB2PtiIG+PG GejXU8tYL0cF8lRkSaOeD6FAr p K187WvHhiIEpQbgte7myb8tbs Ng6AiFgVOLjgrKoqQwwPZA3w2 YdFj13L08gBGwzPJXqACBtUFN i SSBypWlbtj9hkR2oOs4+PGNvb BI5sAJ4uD0tHsZzAbR5OKntT3 65XwGhpFNgHhtxN39pZ6WozVA + KVSeJif8VXEavPtrBS0ydBBaN WycKi0qYWW5MwAqVjZbMYwaS2 ZxPGGrniemsrnovAB6UXQpGPD w xD48Ce4bmWrhSf1nIRYaQQV6I QFlyNXfA4FlyW7kJcDtPDBoBA ObY7LpqPEpCWdqS529HQewVaQ 7 UWKlzwCmJ1DeSMUlnFojWlQ8p 2Z6Lz6HoUrxgOQcRY8nTjIuJQ y0J5RyMdq4JOSknGdnCO2niYI k IGeaOa1uvTtjwSraRD5fWNWsk eeup200WhJes1riZWHzfHOiNU flKQL7Y21jh9K4IARjWXDwZOC 7 yKR8bO8edZjcdqkfuWKqsYvph cRyyMzqZNseMLohN822MQUusA xhWsSEKyy4U4DdRyf5JKUliXk s WR5uqRZuFQkrUv9gyDembTswC B9fCIDwdlipq073AmFvs9weUH JlkOWlLImaNYF0R16oe6K0PGU w DUAnXLA8gPF9sL4vjMzszcnnp GVmdDsgdmVydGljYWwtYWxpZ2 15LZCyuQucRu6YIya1U2GlGpl 0 YOPmhFkxDN8ouLStIJvhUb9ed ZvyfMvtQE7nRHFykwois611Lr Uth6pbYVLrsKEpMFroWAF9X48 s i3S3LTQoIGLgHPO6kVD5cA2cj GlnbjogbGVmdDsgdmVydGljYW ziYSceL195EUXglXnhRzEwvCZ y OjwvdGQ+MX47gq50N0SiUiznL cd8KIWyMFH5bQP2kF0uDZWcGG jzu4Y6jQG9I4FfxlUcru0ti1r s YXBzZTog (more content not included)... [facility] Nursing Assessment - Woundon 03-06-2023 Nursing Assessment - Wound [id number]#1.00CD:1 27 [facility] Nursing Note - Woundon 03-06 Nursing Note - Wound [id number]#1.00CD:1 27 [facility] Consent for Procedure/Surger yon 03-04-2023 Consent for Procedure/Surgery [id number]#1.00CD:1 27 [facility] Consent for Treatmenton Consent for Treatment [id number]#1.00CD:12 7 [facility] Correspondence - Woundon Correspondence - Wound [id number]#1.00CD:1 27 [facility] Multi-Wound Charton 03-04-20 Multi-Wound Chart [id number]#1.00CD:1 27 [facility] Physician Orderon 03-04-2023 Physician Order [id number]#1.00CD:1 27 [facility] Procedure - Woundon 03-04-20 Procedure - Wound [id number]#1.00CD:1 27 [facility] Progress Note - Woundon Progress Note - Wound [id number]#1.00CD:1 27 [facility] Coding Summary.on 02-27-2023 Coding Summary. CD:[id number] Ww+PG hlYWQ+AN7PJWUdG52kiUEieC5 pT1DGROaXObiwJAGFPTfIGrIg kfQzBX8qsCPcLPBz IC8+IN2mBHXzXbmdvNQbp2R0s ST2X80nbg2wUZazwRF5WCNvOi Anzbnii3lffTz1ANrtPgswCcN t WGTckC90ZBJ5vP12Ye21xEWut IRdc2koyWw3HkEjLUVwVTX3yX xzBGuge4MmIIIwF52acAEpa8W 6 BWBrkYspmJAnGuKxzST4eS0kR Xxwohgoe3rkztahHyh8yt03kI Peb8R7pMC4R3EctsH8UBHihGT g IulexVBJxF6fdvfhg9jolswoY pJxJZSzRTi3YAy6OPKsrEsyAq RnSW94DBG5ZCVxgsXpZ2AqBEC s nEgbGiP5x5H8Gv7BL5LTAnftZ 1VNTUFSWTwvdGQ+YJ01kn27O8 UoGmwhBai6COVmZAK5uOW4jJ7 n GUJhIKcqo9P1mMG7S3EmjkTfk i8zt8wwDZYaISjmT55ekQNtq6 I1MMRsuJP8ZUMqsVvnSxZqtZ2 3 Oyc+YVRleXjra0LgXsfxq9arp 7dfzKd2FjwcGIRpghTrqUswKD E2j9KyGg1tHHEpyMJ6lAC6nP2 i NlXkVtD6FBodI641FlGpmAAxR ntkC37jT4RvhGG+MDBjVxa3GF XceQaiVD4wS8GsPMTcjzjhlBF m nTmdKE4eIIBvpkhaTVXzzX4tI MNtL6x5PyUeYfR5HBsxO0ZaYK YslfivAb45pF1rKmZnViL1HOf u K1EjsfM8UKHgoGOxUWzpQKO5U 39vf6B8QDNmEOCyFOC4uYW7rJ 1hbGlnbjogbGVmdDsgdmVydGl j PMuuPWpqV647NJMcqPtxFuDvI GluZyBEYXRlOiAgMDMvMzAvMj AyMzwvdGQ+RYBoCET0iPtcCYO n mKXdSWakVh7lnYbxoFyeQU3sG GTbkhukSXUslX8aHOPxlEJerW puDH9yUOVyyacnr192OdKpPSE 0 ALSioGKoM0EnkU7rMcDsWUJqD CAeZ3UxbDTrTRzxK312UGegLo X3BFJwifVrO2PqNWDjyJrzQzA 0 c9A8Be4Nz5IakhoyW2EhhBVwD zFxQvrePJn0D4GyEzxbyTZ+PC 07NGNdWG71NJt8JIS2gBexVNh i KWNbD7DjiF9xJfCrXOWrFLMtE yc+PHRhYmxlIHdpZHRoPScxMD AeXpUpsJqkMY4sTv2lNXNcFNG v tMlylZNlRnHwt8iuXQHrPNyhY J7mcEzkC8AkyJA6FWIzm2w1Bl 58Y76yX2QykAG+PJAjtCJ4lOZ 0 kT3rHsDiChL0OAvaK987NnSqg WIwPiakp6uyv3bacRk4GxY2BH SgscEcsJcaKSI7e2OaUm28G23 s IHdpZHRoPSIxNSUiIHZhbGlnb o3pnA9bEv3+XLOobFK5wZS7tB 1pKkPdOfE8QJhyE556FyLivRR v Nhivi6qen3ildEw1LtYePORcq kCwpMuqLMH7a5PcYv98L4HvoR zrd4ZsNpu2cs85xPRyy5Z4pRQ 9 P4XkRMMkuzwyeWYjbLsePT0zF NMljccxRZKlhZ8wYWOjL4o7Et RkZwA7GWuaX0DlxrN7TJWewEO g IYUhiVEGrY9wiccda4sxgpukY mLrRKRnTHy3CIk1NQEuxGeaQy FdNIC8XuQ4WVE2nNFbxH0jwVp n wicenT2vBiw+KAZ2eRVfyILFA S2uLfhqyXE+MGEwWMV0mOgfLO fqKNDhyL0zQMTeV5h2OaEgJqX 1 TVuzN0BssrK0OAHxmOOzYHMxm JNKsN6seytrk2zxkratWzKqJN LmDRj7GOg1JSBptIjzJmGlWRI 0 AuH6NUB4kNXroY1cgCgyezorg G9wOyc+EyjhkDqoXJU3IWd2G5 IwDgb8MVDecWheXN8srHLlJKf u Og4wxUqcfIihEV7fJOFshzluk 970UmJaq1rvDWEyoWDiTFerZX I0H61de3H7CDEnWJMjHYN3mMH 4 jX6nfVoppiihcTLtxGohouKue DhjOGniGDalN588TANzuNxeUg YaTHy1L1WoUhz9TQDmeGwgQF4 n dGMrTQafQh5orCuhqFdqHF2iM QCqlyszb869JsDav4ojMECrtT FiIIxxDSY4X69lg0R9MKBtLFG w MFG4qIV6aH2qrSqpoddzvTGux JmbqeXavIzdAXdbVFxfT091YP FwlSnxXcJafTv3R4EhQcu0TQQ z oZxjGB6gsOReXXnrBl8ldWqjw WzmEH8oDERthwkuo519OhPet2 pdDZUheUMiRVktKVP7Y50xe9G 6 OQRdTKThBFF7lJE4kQ0idZswp jogbGVmdDsgdmVydGljYWwtYW shQ502UEOyeGwvGzVylBamzpN g ZSjfGZk4P5RfPvnuzXQ+PC90Y WBfHT84oPKpyFFot5tnfTr9Ch AjGZOsSRL9dYorQAnuf4FkPNN t X59hqMXkr4D8SYZokXdgnOEsY zCgzIK7zU4xYIxttrbpo4kprs doHhexu1vsvc30dD53Q01eUOx p TZAsTFGxUEOcUGOxzEnoze4vd G9wIi8+OBCtrEK5qGZ6aV5fEN JgWpW7NVlfF739EmKlfHPuGvp j q5qvm1ltzMs2NtH9MGJpwjZdh YngMLP4o3PpKq50L49bNSbwQJ YmXJXpHTEoQLDhhYmdbl1czI2 w Ii8+IZBtjOI5cSG8aI4lNuFvW zX7EYdkD502EbNlgMKtNpicR4 6nL7RqzYQ+YCXbKhm3CSArsZh s AJ5jeLPjEZhvUf5bMBG0PfMyZ tThKOxbH9CgLFDprnhvkuainO Q2WBZuZQMaxC28Zu8cpGdvTMF w sFZUqJ0fowyvm5mfaqxfNtDzE PWaYXn6SKu6ZQGlcKbdWfAmKP E6ZgF5ITR8oWDllT9vfIcmyiu g tL6sF0CqPFWzwrzqCa64gY7hO oXoNrL5UWjhQvz+VEFOTkVSLC CVM76WKKQuYFgloEI+PHRkIHN 0 yAqxMGpeCSZfaO6vENUrK1a0V nTmXaG9RHwwR0WjQXMfwufpRs 37qM4gHlNbBdS0TFklB2DdcqB 6 UJQauVNpJJrqOUD0P29eo8A8X YFrKITjPHE1sIO2dG1syNfjbj ogbGVmdDsgdmVydGljYWwtYWx p N605GETxeRnqTfQyTkQ7YsX4C Zw3E2PfTzc9ZURxeNsnFS1bpB CiVTodVm4kpIspbVtdFR4dBJX p kvcgGLRrlY1gYVQsdTSrkVrgT F8gZNUjpbtfx534KvKjWJZ2ZG ZahMHoQ4MekR6aHmRiWFFaABX w E7AapBJvPXrmS311UCioCtQ7D VCfkmSuW4YqXJIheDwiWaX7l7 Z6Qh07HRBCZMHefyuixPO+PHR k JPQ5hYzmECunOHBbkQ6mYKYhV 1b9GtQqYhV2KXfsB2KfGHLcte faGl30gX8rLoNmIdE1KDphO7B v tdZ6LQBjmYSnBWceAGL9L43fh 2Y6LQDjFCToIQM9qJW2qV1syQ lnbjogbGVmdDsgdmVydGljYWw t FNdnP222DPGopGxtCo0wbKD7H 6WfXcl5YPJtdLlpTB2htBXaNY noPz5xoQvygHyiPQ9aQKKdxqx w PLTrwB7hRVCzdKSwoQeyPW1qT QUyesjhb394OqOeNFF6GWRtzG QrD5PwvT7kIlBhOGYdUYRlV7Q l sBDmRQzeL301XUvuVrG0YRYyq vFmZ2HhHBOceUcgXyQ6l1M2Pc 3VpWIdCGOzVN91RQ37MP57V0O y PjwvdGFibGU+PHRhYmxlIHdpZ YJjJScmOIScEaLtjTynAU6uHe 8pPCXqGLIchFwffFXyRyXgr7a s XYIuZXerDB6zyTrgK5GpaOS1R FIzg1x7Kp47W33cO8CthBR+PG CyrVD4kHU2qP2vSiUjBlN6PKb p I075SxAsaPMiJpxgi4lny9gga Qs0FgKlJNWrjvUqlXsdOJE9e0 NaZz55O27yTYucIXSxJUPqXGS i YYTitLxnaj1ipG7zFy4+PGNvb AC2uNX0bQ7zQcMlXtC1NEyqA6 40KqAaoWEnRixdN26pU0PhcNH + UNVuVux1PVZawEnnRW9qaBZiY ApyCa4dHMO2LsWnTyFqNWdeH0 MrWWQuzodlzmoqyCS9NYRsOCC w gM64Om3goDjoUb0wBYSlGGD4Y QSzvSAiG8LacA7bZaXhMMYaLG RaF6TvmNSyKLhrV084EJuyFlO 7 NBYxltFoF6QuMUZlwTvpRpX1n 3Z3Xf4UvAlwxNIhUP0mJgFgNG v8T2VkIip5SCNdiBcwWZ8nuCB k MFyaQx6oxDmrjJoxND6iSCPao bmaw490OlLyl9ryRBHldDNmCV fcZUC3X33zc3X4IVTmTWYoLNK 7 wPY6jT6rgZzzhojtpQKgmUeox hDinCayTUteZYjnK215PKFquO seUpTTDpb9H4ZaUba2TNYplFc s ZF5sfKZoVBqsWk3wdGgpmWwkD T1iEXQqpvevt716TdHxz8nmJA VxfJNiUTfmKXX2K64tn2N6KCI w AXAuDQT7vLQ5wF9vkUqzgjmiq GVmdDsgdmVydGljYWwtYWxpZ2 74VCFcqNpnHd9IXiv7I5MpZsz 0 SKIddNurUB8pnHEcJIgeTg1hx FjomCqbOZ8pZJEzbvvfd563Hj Ryx4afMKFroCVkBIazZKC2H55 s i9T0KACuTFUnTTR5nBB2oX6ok GlnbjogbGVmdDsgdmVydGljYW idXTvkP194DCIagOoxAhFtoOZ y OjwvdGQ+CG78cx46T6MxMotdJ dw4EBEjRBN8dTZ3xE1mUGIfON gys8O5iUH2M8TzgbYhlx3qp0g s YXBzZTog (more content not included)... [facility] Coding Summary. CD:[id number] Ww+PG hlYWQ+VR3PDSAaS11ywWNtiX9 dF2HEGReQZgssJKAARXcEUsQv oqMiHA1guGHcYXAs IC8+VQ6qXGNvVmiixPNuq3E2k ZS3M67whc2mGVcffDM7JWOaLl Bytkerl4dnnIx1ZLumQjazQwB t AYJrfA68AWL8lH02Qs39dEIiy JSbq3hcjSk7CuJqMFLsFMN0gC awCPspu7AtFBMkV97vpVOov5O 6 DYVgzDkuvECyAtYuyOE1lZ1qO Amedqytd8nwgkauAcg7cj76kP Hyh9J1mSZ1R3VktwF0GEBrjGH g RbazgDSKdK0aaopuf4mvomnyC uShUZMlFQw4QEq1WFGvjAeeNx RtXL95ALJ5VPActuWaM4OhFAI s oDutZlW9u9Y3Pf6CV0SBWuyjB 1VNTUFSWTwvdGQ+MX34ds29R2 FuRdckMws1LXIyFNY0kKR6rA1 n RRFrMXdfm1Q2oEK2V6XkjlWtv d5pi2czIPHlKHtwD91ceKBos2 B3QSYqrUH7FTPyiKnyHpKysF7 3 Oyc+FLRwyLhya2VdIzyyk0nvt 6ojuLa8PwggYHZqvnPgsBptID E8n3DhCo2xUQBicMP6dQS2bI6 i GvAdDoT6BKzmQ722DqExpDAfG fdcE03wM4GqcXW+YMIsGis0LO HfcKnrJA1fU9UwJHVomdbsoKU m jLwgVO2sWTYbyblwBPYrzP7kO RFyF6h2AoIzHuU3WCkxB0LoFE HprjjsQg60pT9nXmUuBcV1IZm u H2WenuI5OZTxsLNfIWuwAGU3T 29cg6Q5JLGwHAYdPNY8qGE0yB 1hbGlnbjogbGVmdDsgdmVydGl j JKdbWKxxE204KMCooEfmNkVtJ GluZyBEYXRlOiAgMDMvMzAvMj AyMzwvdGQ+HINaDUP7dFyoHRL n jVKlHXuoEg2nmZfdtUtpNK6pU QDigexzVOQueM7xDKQhvLFatN dlLB2qTMTpnpsyg029JxIoGUJ 0 KLJhqVKbH3ZueT5xFsRpKQWfM PMdU5AffGYjYFoxM503IBlwMe Q5HQHtbuHpQ6TgYRSrrScfRbA 0 a3E1Bk8Qx2TpomqoQ2QfmVHrN sEzTlvuGFc4S9YnXbqkyPF+PC 47YNAbWI19HKp5HPH7tGryEVb i NKSvG9MrnH9dVgGmUKTzELZkB yc+PHRhYmxlIHdpZHRoPScxMD EnOvMwxCfkBG6wRs0fVFEjPPG v fCtrgXMpFyUbn9wyLZLmXKepU E2jgGtxY2UkyQO1HYCyb1r9Bt 95Q95tC0ReoKW+YKHuuFW9rVI 0 sK1hRmMjVzG6RMhpG461KvMzq VHhHzumr0zvw8eihFs0IlS3CR SnteZbxSnjGEM6z3HxMb83E82 s IHdpZHRoPSIxNSUiIHZhbGlnb s6mzQ3sOd1+RJJvtUF0bRL0qJ 8rEyNyAtH8NWxzV886KqQsdDD v Lbphq5sof9ilnVj5HrJaSJEeb pIldYdfYPQ6r5TsVm71A1FjkC tgl3OsKww9vq47aDJwu1L1iTA 9 X5AbXGTvlnamxQEmmOooZJ4iD PDgnidpIBQhgC1dPLKkB4q7Lc NtUsI4CQdiZ5RxudP0MUPshTM g FOFtuAYKxP1lkhlep5nuiottA lAqSNGtMHi0TRp6NRFrdNibWf XpEFX9QyR9FGY7vZZpqT6qoKd n izwviB4xOic+UOE7eQOoaUOAV T5hEcrneGL+ESGnQBB4pFgpXH nlUOTreB1gBZJnS7b8GnAkWmF 1 HLxxT2OdzeS3UNXkaCJjOWJgu IHWuO5lmvyxz8ywbwctJoDfDI JpLJv2IWq3GNAvfTirEvHsSAP 0 InU4HAD9nMDqmX3ssQgoagfon G9wOyc+BddqlMmlINB7CFe4S0 BeWoo1SZJyjDxcRV8qhMAgCUw u Nt1brTgxnMlkYJ7wIKMcteuzp 131UfUcg9qnYZWszKIoOGkbAZ W8J55ar5W2NWFuTHCsNEP6mBT 4 pH6tfDovepyctFJpmIcxtiKaw MltHIbqPFxtS163CRCgnUzdEc TrRIu6O4HwKbs8EWCbvKvrWJ4 n zWWnTNgsLd2fnEnarUbfGM1bP EWkxgywx763YoEic6klHTCtvI ApDQiqFEX0J77cx7M2EGNaZJF w TGN4jOA4oN9jvMioahntmQDhq OcjoaZoxZqnFQuzVDznY274DO YowWrbYjPlnAn7W7JpYwc4ADR z lHctUR0epZNtETdwOr0gaAdos LfdSJ1rBTRuejesn861QqOnf1 slCEIdhIHwLMfwZSO8Q99en2R 6 TLZoSUBkLUG4zYC6mL8wlVpdd jogbGVmdDsgdmVydGljYWwtYW xxF779DOVozVzeVtAcsVcpbiU g SEtnBZk5I9QhUgriiFE+PC90Y LVbOR82bRBmmWGav4mxzDt2Ty WqDNDeRDG3dNpyACkws6ViFPK t M32uvTOjc1H4AFSunWjhtDDaG rPlbVK1tG8mYVkgizmya4prjh azHzfyy0whbq71wJ40F34sAQr p UGDpAYAlDRVdIUIbjMukak3cr G9wIi8+JSQbyWG2dOT9kE7lLR OyIqI0DBzlE393BrRetAIsWey j q5uqs1rzoDw4QlX0CSVjnaJni VdeLPJ9d1XcCm94C02vJYvrYI XbOEXlCWJrJUMbxIwqpc0tkP3 w Ii8+XIOqtKD7yLL3lN7mWvBnU oL7EYjhN624JfMmfBQbQewaO5 6cA8LzgRR+PCNcJje8BOVpeUo s MB9ifRPtGFayBv5bNGL8KyMmA kAyLOlhJ4LkZYQmdkgdvnabyL S7UHGjLDYkdL48Yy1leNkhGAP w hJFQuC5rsucnd8wfthfiJjKjQ IIvETp1FUv3XGYuoHmlNdIlEE P5YjG2DYP8nVMvjY1trVbenie g qA4bR5ScDIJubsokWi05uN3zK eAkUcQ5ELtxLuz+VEFOTkVSLC SFP81XGRVcNJyxgNZ+PHRkIHN 0 rHeaLQqqYCOucP8tPRUtF0s0F gQzLfO8GXlkE5LoVAVdehvmMj 73dZ2oUbNxYwV6JMmkT9RhvfX 6 EPKsvBRaKXbkTYK8L66kv6P1Q GZrXXMaIAC1mAW9kE4weDmpih ogbGVmdDsgdmVydGljYWwtYWx p O496CTEsdXmdYbVzUxJ5GfZ2R En4R4WoKfg4CJGihTabWH2mbR GvIMxgTf3dtWcjrDsxWF1kMQL p hsanLDReyH7kZDCwmYWzyDxgJ H2zKUFxystil211TdUzSWK4HV AvwEOnG3RbvO2zBvQbSRVxNNJ w L7NkuJHwSOdbB842FMzvZvD0Q QFhbuAdY4NiDAJihJlpCpZ8x3 H2Hd50GPMZPHJqfhigkUM+PHR k NNT9iNetHLzoNHQisH9gKBCrL 0t9ViViKwE8ZYitR8GrYHKxnu sjKp30wT3jKlBtBuW9PIdeQ8H v euH3GMZyrPKhUDpvSPU2E14ta 3W8ZNJyMUOeLSK4cWO8wY6ygH lnbjogbGVmdDsgdmVydGljYWw t JKkiY571IVUmrBqnBb1raLB4T 0CdSfl5ORSgvWedIN6cpTXdMP vrWd8coKbutRokXJ0eQNRavzw w ZAMojI5nFQJruHLioGwpPL2jS RTtnhswu620LjDaDEK6ALJzjZ XuS0DdyK8fKtKnFVDpEKLrA1R l qDXrZZcjP297HLftYvM2OKVjt xDcW4UpXUNvlPahVnK2m0G7Uu 8ZoIEkJFDuGI69FI54RI27G5D y PjwvdGFibGU+PHRhYmxlIHdpZ COmCQifAGSkPrTzfKewWJ2bCp 8vLPYfUVAvgIwtiGNtUeDot2g s OFOuJCcsXI4ldWarR0NjkQP5J HGgg0g9Bd38X98vE1RmlCH+PG AwdID2gTT8sJ9kOuImOoQ2YLq p J388TtOvzNFbRbhif9cpf4efe Yk9YeUhGPFdhqBiyMhfQGX5k8 TiVe84J12fFKfqEBQfOZZeBZO i SYOdlByyur1nkO7nVz7+PGNvb GS5kYQ2zZ8pIoEqOaO4GJxvL4 18UwMkwNVjBileZ68hP4TxvID + QGDbTwk1IASimIfgQF1skXZyN LxzRo2xMRX9PiCvZsQaLHneT3 TdFJGceurvolgpiQY8WOFoNSC w tB76Pp4mdVutBz1yZBUqMQZ2S TOayQEbP3VnzQ2uZxImEHIxBF WoG8BahDLdQWbwE366OMohBdD 7 QBQulgZzH6EtLIEpsNzkWaB6s 2L6Ck5DpNlryEEsEX5hRyXxBX b7C7NaRye3MYDgrGozZD3nyCE k SQjcJv5hbZrutWasXV2rRPOlr ttuq262IuWif7xlYIFyxZWhIJ usBAR2E96cp0E1EOHkSROuCEV 7 rDN8uB5nrYtyzuinxSHwsPfww aHpqRdsIDihSRvaB726XLZgeW ozHpVMEmc0N9UmQnb9EJGrrCc s WL9uiPOoCZmjPf7oxAvqjXcrO B4gVIAxlklul925WhJru3saLR PawIIjVIzhUJL7D45kb5V9IWE w FNYkNWR7fQQ1uW3ctQiqydwon GVmdDsgdmVydGljYWwtYWxpZ2 15NQYluSukUj0GMaq3T7HmHlk 0 SOHceTwaZS9iyWXoLJvkUq5rr WbfcRxcJB7vJSDnnlmof363Pa Nds0gjSACfgZQyDVdqWKT8D21 s t8A0XDZyTCEzOPC4yFL2rL3fm GlnbjogbGVmdDsgdmVydGljYW zrUSdkM208QHCvoPuzNbTupAC y OjwvdGQ+HJ07yv35J7AnRevxM vh2TXIpGHM6cEX2mN8lIETtJW gdm8T8yRN1L2FrozQlsu4lj5z s YXBzZTog (more content not included)... Normal [facility] US venous duplex [place] [address] Ultrasound Report Signed Patient: Yousif Aguilar MR#: [id number] 875 : 1945 Acct:[id number] Age/Sex: 77 / M ADM Date: 02/27/23 Loc: Room: Type: [facility] Attending Dr: Perlita Reno CABLE ENGINEER [employer] Ordering Provider: Perlita Reno APRN Date of [...] Lonnie Vasquez MD02/27/2023 4:25 PM Dictation Location: [place] [address] Tech: Maureen Denis Transcribed By: TONE 02/27/231624 Dictated By: Lonnie Vasquez MD 02/27/231623 Signed By: 02/27/231624 [facility] Coding Summary.on 02-26-2023 Coding Summary. CD:[id number] Ww+PG hlYWQ+MI8OELKnU20ayINprT3 zV1NHZBrHRwotDFBTFZqIVzEb paYsGU8mzUOgREZb IC8+DW4rAOEvTbmcgCZrl4W2x OS7Y59qpt7qDMfziZY3KHKeQa Fzxrmyb0blbVa7HZrdIuplRdO t QRVzuU87VFB3qU78Je31oYDls AQii9iarYi8PgIjMESvTDY9jN vwDEdrx1EqNEDzE63auMIid6V 6 AKRpvZdwuYNsIyLbkLB2bJ9aS Vzooydlq0kxkzdhOzg6io67oY Tiz8Z1kZC5I4UxksB6UBJoiZQ g SjwxrTAFlN8qcluwn2aeaxsyI nLdFMMgDKm6SBh1ILTatUfiVc MfBX79IQK7GWLcwmRdQ2JvXKN s pPziHaP9j4V7Li4FV4RHZvllY 1VNTUFSWTwvdGQ+NN69cl27U9 UoTmgbVhi5BNGeCJF5yMF5jX3 n HYQnBVtme3Q1pKG6L3PyqgZut n3gi5msTXLbGZauC67egGSxi4 U0LLNvqEX8CPNcvIccUhZpeB5 3 Oyc+HXGbiZsao3WjKvsjz2eod 0nerCe6McwgXSYweeCkrLlzPF T7j6PuTa3jJFPuxOG3lZQ9mV3 i QbJmScY7TPquN220RuAkpJScN myaR12bI6ClvBC+EKWzRnx8YH QasMnrHD3uD3TfKKPidmozoTI m fSdcPG0eHBSttctkROYruZ6mB KOdY9f1IaPnHfL5IXqvI8AjWK ExrkftDr69hN0mAkFlIpO6WXw u J9FjmvL2CZMxrRMtVXfnBZK0W 28hr8Q0YFTsKDLlYOQ8fYR8aY 1hbGlnbjogbGVmdDsgdmVydGl j YOfdCRsbV909YCGvsLeaWwJbY GluZyBEYXRlOiAgMDMvMjkvMj AyMzwvdGQ+DWYpRKG0eFjwWIB n qYQsCOdwYx3qyHnmoZfqUV0zT FShbmqnRSOfrY6rSCHlvSYdyM fuIM3cVRDilghha706XeUzFBI 0 TBCyqBWkL4HmfL0fViFtYOJaN LQpL1RxaLGcEEyqN271FGwwOf C3PJXjmyZxC9NvRRTxfWbyPwM 0 g0J9Ip2Rg6HfodphD1CpoHUwR aMtLdvzXFn2A1KsGpbglMP+PC 61AQXcQD89VKe2WDV0eTqaAVq i CTFkS8YajH8sJrKqTZHuGBXaP yc+PHRhYmxlIHdpZHRoPScxMD XpGzRrlPlmEW0xUj3vANPrVHO v qFabjUUlGpMpp1kwJMAsIHeiX L8htInpZ1NspYL6KRMzm1y0Ug 75R80pJ6RaqUL+GSMphGW6hUK 0 dQ0uBaKjDqO8ZCmwS485ZwWxd CGfUglex2mtm9xpwBb5QfP3TJ UoahCsfRvgTUS4a6KyTf39E42 s IHdpZHRoPSIxNSUiIHZhbGlnb a8mmV8mSt7+VNDjbWE3lBX5kC 6cTuVvSxQ1AZvqM978QhVtrMF v Ftihz4ctl9bobRu2OzMkDKAus yFwdKjaYAG5x2FcDl90Y7BhfV hee6ZtXlo4eq43vLChi2J8cPS 9 O2HbLAYdpfuuiXYjtNppMD5fU XLryyhiFKGdcP5jCTSaE0v7Ie IeYdG5ODbxJ0GxksE4NJPndVF g FPVepQZYzY3aqdbig2tdquwwK mFtULBkKVt5IJv4XFDchLstUp EnXUM7XvJ4GLZ8vZNniZ3smJv n alnssM6nCpm+ZWB5bRFlfTRUM V5hUzylwXE+YSKrCMU7vJvhPT cjKLGrwE2vJKZcL5k5YaGrGuO 1 NXdyE9VwmfH8RTAuvGOrNLVfa ZGFnE9ltikol8eixuciEmJoIX TxGSx6DSc8OZCdyJpmVbMzMDU 0 WhJ8CIY9sQFuoK8kvLlxtbpih G9wOyc+GeeouXqeTTN5DPn1W7 VgUbh0YRQyaLlwSI3avBCoGGl u Mx2orIyjlVnnQF3fZQPanhsxa 097EmHnc4zvYVThkKNeWLnyPY J1S33rg7U4FOImOZBgHBI6iNH 4 yJ9skLxdnxubcPLyuOcuakSzq FujAMxdEWyqD898BEWbmJfzZp AtQXh5H5ThIof7PSTgbKonWP4 n hYFaTUpvHl0ueXpdiUooZD7rS JVnhajou356RkWdb7shKRYdgP RdVQtcADB8A11ao0Y0IMQlQDG w QGC7fEB0vB5afTsqewmgrCWgn QgtkmOdqJaeEExbQTolX272PH RztWieIbZkeKe8C2GeNmm3QHA z dJbbIW9pnJKzZVezKz9vbClll ImhRM6mBIGijrvfo267NvQez4 rlQSPtsRHvMTkiDYU9L48bi4W 6 HCXbQJWzKCK9uLN8qX1bsXeyo jogbGVmdDsgdmVydGljYWwtYW zaW479DXRboQkdNxFbqYlgheS g VSagVNe6F6YbXwgohTX+PC90Y HVxEH25oAThyNVmi8tikTi9Rh MnMDGjAHO5fFevQPrvu5EcTEN t B77ezUPof5H4ULCzoClpzJFkA kGplKE4xF5rBEegxsabe0veqw suAnonj0ggea14cO55K66yRSg p WFSgESHrAQOzOPJelSxniw3ni G9wIi8+ZFMajFM0yTT8pN3nQW XwBqR5XPhyY201NtMmlNXgDls j n7odo1zcrXz2SqZ2DOHlqzQnc SggINB1l4GzVx56H17zECfvAC IxHKNdJAJzUWBnaIlrcv7gmC6 w Ii8+UKHmpOQ8yEW7eW0tJpIpG mS6CIibP374MmVzyCPyJdhgP4 6zY7KclEB+KANyQjk8EYKoqTu s NG1nkGEoVLawDc3nWHG9WqUjV lAjALodL8YjISKaidqghzhlgF U7CUYjKVAreN47Ef6hdWzrMCS w xHDYxJ4ybnzen8fihtzfDfHhF TUnBTs0ZYj7RUBjbRzvOfCnQK P0TuP0SEY2sSZytK6mxEgxmkm g fE0lZ0DaYBRozvbaGb94pK3gI nFeXpE1BNbpDbp+VEFOTkVSLC OOW11GCNPbDUdcwAR+PHRkIHN 0 jLmiAWmeHONilI8fCVCyA9f2L gImEzP2PUjnH7AhTNYlrsypNh 21cY3tYsAvSbE5LBxqL2VdcbP 6 QMHchREgWWcaJWP1U43wg3C2K BPrWQYhPZK7vQP0qG3ytGwgrg ogbGVmdDsgdmVydGljYWwtYWx p U922AQMimSewJkFzThX1QrM9R Ui0F9RwThv6MCTydGcvSZ7usU TzBFcnKe7xbNwmsVmvOW7tKNM p khynIGEnjE3uNCKpgZPkjUpdZ C4nLSEmhebgx426LnAmNHX6ZQ AfkLRsC5JpuC9bJnEtHYEmOSE w T5SqfYCuLFzwH970ZJbzPgE4V ZSbtjRgX0UxJUCftZlcRwS2h0 C6Cn83GCZJXWLhwcgfbLL+PHR k VTE1dYsoKIkdGHHacP3yQYKzY 0v1XiAsDkR5RYggG1SqUBKmcg lqDr27cO0jSwTrRxQ3ZBylH5H v mdE2EJNfiSHxTNhsCVK0N03oz 9K5EOTgTMPmSWU5kJO7oQ9zoT lnbjogbGVmdDsgdmVydGljYWw t XZljY452VXCdxUunBo7xcYK2K 6RmIen8WJBioChlYD4yqFNdVX xlIz2ffRxhnMepWB8iKEDhvhf w UHPgkR3kANOutGLigSchTW6bJ IZlecuqb816PiGnINN1XPKvdH AiK8NqqT8iRlGxNTQqFZWmN5O l yPMtJOakS949GZcfVdO6XRLau nBuF8FeXMKsvAlsUxP9b9E6As 5PyPDmWYAyLV97BF99UP74X8R y PjwvdGFibGU+PHRhYmxlIHdpZ RVkGAjkPMZwVkDiqZroEN5aAm 1lNSWzQNXadGukeUHkQnMpl5b s UCHsDHgiPK0aeOkuR8FpvIW4D JYsf6q0Kc06Q07iY2CyfHZ+PG ZzmIC3cZA2nT6gTlJiTmJ9LCw p M354OsIqbZAdWbbar8rmh3ndr Qn0ClJiZNFytaLmgCfvUVC6b7 ZmAz83X33bCYveEGOeASAdZQM i VLAjfWtzhq0wiG6yMb9+PGNvb PS6dJI3jB9aKySwMoI3RIfqY6 87VnJxhNShAvinJ71mD7DeiRV + DXKrEwg5GSBouJdnQO2evIWtR DzlFn6fGWO6WfFrUwVzZQclZ4 QzWJQqogwxvnjbpLD6HMEtFMT w dO62En5zaAenBn2bXKHxUYZ3H KZucYBaK8UdcP2pRwXoBBPyCB EqE8FujGLuHDwvR193ZCdwEoV 7 AHYpyqYhW5EkWRZmnRoeRfZ4v 1O7Sq8DlXlmvYAeWI9jCsLlAY j1Q0IdCxk1VQDkoQgdEK5ocUU k UFrhTi8zkYogzHffYE5mVOThr alfg076KfVov5zvNMJdvWSlOD igBUN8T05yj6Q6LHEmODUhBRK 7 gOZ4aQ5giGmgsdvklQVqgTvto fLawZcnHParTVnfT180GACoeV lwNhRQWrq5E7AfHqi1ZLTdbMa s BR1fpALvPVyfLl9tdMqepThyT X1dVLLoqkser597KlPmr8ubZD PnpPBeTVimVXI4S17aa7F7EVB w KQNpFGD3sVC2zX2efUexmwmhy GVmdDsgdmVydGljYWwtYWxpZ2 43MSPjyMcmGi4QIwu2A0GlBhb 0 RQExaXghHG9wtGNsGFzbOc3on SgbjJviZG0yEFTvghvql839Pb Plh4ebUZZpnYThKFgsVUD2W36 s x1W5OTZnHDKxTJS1xLB8bW1do GlnbjogbGVmdDsgdmVydGljYW xeMHkeL451ZKYanVusAnDlxHF y OjwvdGQ+LX73xk56Z4RrYeroD xu8PXXxZFM2hAV5tS7dZKOvTR eal6S0tJZ2Q2GpfbNvra0yh7c s YXBzZTog (more content not included)... Normal [facility] Multi-Wound Charton 02-27-20 23 Multi-Wound Chart [id number]#1.00CD:1 27 [facility] Nursing Note - Woundon 02-26 Nursing Note - Wound [id number]#1.00CD:1 27 [facility] Physician Orderon 02-26-2023 Physician Order [id number]#1.00CD:1 27 [facility] Procedure - Woundon 02-27-20 Procedure - Wound [id number]#1.00CD:1 27 [facility] Consent for Treatmenton 01-30 Consent for Treatment [id number]#1.00CD:12 7 [facility] Correspondence - Woundon Correspondence - Wound [id number]#1.00CD:1 27 [facility] Consent for Treatmenton 01-30 Consent for Treatment [id number]#1.00CD:12 7 [facility] Multi-Wound Charton 02-19-20 Multi-Wound Chart [id number]#1.00CD:1 27 [facility] Nursing Assessment - Woundon 02-18-2023 Nursing Assessment - Wound [id number]#1.00CD:1 27 [facility] Nursing Note - Woundon 02-18 Nursing Note - Wound [id number]#1.00CD:12 7 [facility] Physician Orderon 02-18-2023 Physician Order [id number]#1.00CD:12 7 [facility] Procedure - Woundon 02-19-20 Procedure - Wound [id number]#1.00CD:12 7 [facility] Progress Note - Woundon - Progress Note - Wound [id number]#1.00CD:12 7 [facility] Coding Summary.on 02-17-2023 Coding Summary. CD:[id number] Gh0bW w+PGhlYWQ+OX1MXQPrC64hwHO jcB0vB4VPOTtFOcddIKKHMPpJ CvYomvMsHN0zwJTyKIZo IC8+DM9mNEMiDjxbvPMmi5B0e EQ3N88tnn3rKUtwcWQ2FCVhNx Jroqtxq4mbgLl5YQjcPgwuCsJ t FICxjC37GTU8mN99Fa18kAJrl PUqg3uynIg7ExZxWACqIYC9rO xeUYfdj0DwAKUjV76dpLDsu9V 6 BLWxkFnbePLkCxAjhUR4xC3kI Erduygew7giazhzVjw4wa41jG Zni8V9vPD9N0ZsacG2TYXcjSY g SuhubJSLwA6ujimdr8aqjqpyJ xNcYMWvYQc6WRj7HKUkjZetUs TbPL09VAL7PTNwmiRvE6KcIII s vCgmCwZ2i1X4Ja4VD5ROHqusP 1VNTUFSWTwvdGQ+EF05ba32L6 CeDkciXfv3VOMnWAA8uDX1iA7 n PPMkHCspf1C6pWW8B3XsbzAym k0tn1wiIEFaXLovM32pgVXib8 T6IDUiwTL5PKTcjPkbKtUwhX7 3 Oyc+TTHnwTyac2JlKlgok9wyv 4gnbMc6TahdBITitiOjvVijMW Y3q9LmOu2fQWNfgUS1sMF9eQ9 i EbKaIgW2HEbeT308DtLysBBdR ywyG75aC2GdtHX+JIVbDjp5MI SbeZweYL7wN9OiMTWzwdflcWK m vRtsJD6mJSIzhvmzQATfaR3jX VIoY9h7VzMrRwZ4KThjY1LoNN IvubhvNm71dK4fWzDhUeE1QTu u M7JgwhV0SNSsmYShYQpgHVT6O 49vl6W5GAPlSNNxEZL4fGO5tT 1hbGlnbjogbGVmdDsgdmVydGl j JHraKWvoJ877PZEsmZwjKxOgY GluZyBEYXRlOiAgMDMvMjAvMj AyMzwvdGQ+PIQiCOZ4zWvuLYB n oEApKDdkHk5ajWygdBoaAX4bY XSlnzupGDFczN0iEBFutYExvH haMA1nBFYuzmdkx760QzGyBXG 0 KDOaoJZaD2VwzC5mZuDaEPPmM FSyQ7MfuLSwRDjtZ678BRmiBw X6BRUijuWlH8TcNKOjbJdwWoF 0 w4Z6Zf8Na3TmoabcO2SrnGLnA uPiApmvGMq6L3JqKkzbfGE+PC 43OYIbHM84APq7NVX0fAspSMd i BGCcG8CdpB5bKpGvEMAaMDIgG yc+PHRhYmxlIHdpZHRoPScxMD JtNvQzkSzeTW8vSt4nHLErKTA v pWlbhZObFnWet5wmGGKaJQxhS G8bjTwfH7RnuAK2UTZbu7t5Ii 50D04qD7BhhYF+XXFwrTQ7nPD 0 fV0uEcLkKmC8FDksW930YiQna DOcKdknq4scq8hupMm5RfK5BL FezaVyyKbbTET8l9RdDz10T04 s IHdpZHRoPSIxNSUiIHZhbGlnb p8fwS2gVc2+ZHXoyDL3sPT1gH 1dJzYfEvK9RDdwF833LlIarIS v Boggk6kww5bbdWz2IqGaHEKbv qNckWtiDST5k8TnJh22R7AemK efv7CgPyl6da57sYIwb3W3rGC 9 Q9WaVQCmlaitaBAjuRjyEK1pO HKjjrgaIWAsxR5eLUIeT9z0Xg QfLaN4XWzlE1QrobL7SATkjXA g CYBugESQcN4smulse8ftabwgT iVkUMAbZMv6MXs2YSPchOesKk KmZNW7VfV1QIX7tXGafA5diQz n jflwtU0gGgf+NSU8xVAicEPFM I7sBmikcNC+OIRlOHV0tZxlNQ fyZEDwkV4uRSUfM6d8HkAvZkP 1 EQiiT0TszjY0YVSerESaDXCqv SNJiM9ahgajf2dcvkcmWkKrZF YtEUt1WXe8LAGyaOzjUxYpJCK 0 UkY1MCS5kARojW0cdTbeqwsxk G9wOyc+EnpxlQlyREA9QYh2B3 UsJzp0EDSxuOjqMD7muWDeXHj u Mm1vmHlcjNlnSB8iCADkjoule 466UhNua3yfTIOoxIMqFDffRL S1S22kc4W2HSZgINLzEXW1eXQ 4 gZ9ulAiaasxqcHNuhIgaxiKkh QxfFXvzYWpfM656VKRdmZxtQr WdJRd1O3AnTju9LWHiyGqeYP0 n cLDsFIcvJp5uaRudcOgvCH7hJ VVbgziza291IpFos7hgTWEgoF DoHAryOAL7K11xk4U1RTZtBQQ w CHU8rUI3yA6atRptsuuizPDye FcjdsAedGmoVXqiOKusB718KQ AlbVutFqUoyXo3M3DoRyj1EFH z sSzjZT5tyCSyXUafOk4pdKzwe RnnIC5wODRytzfnj564PtGkz8 qgMQEuiATrBZugKNU4C39nm2M 6 EOAyJCTyKIP9aSB0zT6eeMsuc jogbGVmdDsgdmVydGljYWwtYW zmF700RFUtnNqnDlQnrZpxtsI g SIbgAWa9Q7YzKhjffDK+PC90Y JTtUN47sQAiiHHzr5donNc6Dj WtBBJcYVW5pNisYFbbr8ZuGYJ t I05bxKRsb0X3UMXykNllaQRtG lNcuHC9rW7mPNsthxuvk6fhnw itTyuyw6ukso00gY84L44iFPc p CHXjJCXfKTIpYKWfaLvnhs4hx G9wIi8+PKZaqKS9mGF9dM6eYT PkEvV8KJgiN333QhFthUSyJse j h7rqi1ylvDn3CmA8PMHalhBtq MryETF5s5XeHv44X24fERllTT EsZRLyDPCwKZFzzKdkta4cxP0 w Ii8+JFCbcJK2eHN6aP7nLbYsJ gF6QFmbS832ElRieSFrBjnzN5 7wP2OnfHE+RLSdBsq7IQYyiQm s EJ6cwGIiPDlmOo4lFVE2JyZpY wBrPQpxH5NqMITuragsllyppZ K9YABoCOCxlE45Bt8stEtzTPH w zULCfV3tyqmyj3smujjeJtFnH IUmZXv8GRu8GMOupHzcEsPcRH I5WlR6ZPT4yRHgpV2fdXxcnfv g uA8xQ2BbAXAyvugjGa83aD5uZ lDvMsM2GAspHll+VEFOTkVSLC YIT76XZNDfHBmvtMN+PHRkIHN 0 cGdqMLktCGAokD2fIFVcK0j5U mQuEaU1KRzeP1ZpYIMdvfusWz 39rL3fOaFkCnS3IOjnT5JmgxT 6 RWUjiTFnOAafLOW9Z21xk4M9Y JLlMJYuDQP5fSS6tF1wjKeudf ogbGVmdDsgdmVydGljYWwtYWx p U681WXGkoHghUpLqImV6UhK7C Wv8R4EfAbl5INOsvKktHY4mwQ BiDNzsJr1jhFldyDgtQT6xAXE p ombiJKVhoV3hUPSycDQfiWknL W2iZNWmfolue470JfTiEOP2QM XtlJQqX6QreK9pVfNhZYArDNU w E4IhrXQtGCxgT846XDplAfX1Q XJblvZhA4ZlREJopJoyPvZ4y2 G9Sa83YBSCIUUgweyxqFS+PHR k KXF0aKyfLOvpONRckD7mKAJdI 4w1WdFcClX2GOqlK4MtWKVqpp doJv49wT0eOnQwCnX7QBtuA4N v vyI1LQAveJIiZIwzQQK6T28zm 2O5UZQaBWSfGNJ5zFC2tN5iwC lnbjogbGVmdDsgdmVydGljYWw t QGazG926ZJMkbBxeNj8ozUS2R 0ByMqf0XWZjsOqkZT4anZBiHP bvZk7ovNhruHxqMK1nJBKuuae w UETuyB7dBGXegQPeaUpbVZ3uR KGanbkbm680PjPnCEQ6OXQeyN OmD2MuoP8mJgHgYCUsMIGmI8B l cBPlEAhpK081TKotDiO8RYZab qUiQ0DwIYUmuQrjGaA3q7W9Eq 1FoXBeGKMmLN08KH58JD10C9L y PjwvdGFibGU+PHRhYmxlIHdpZ QQvUWleSRJsWcUvmRfgES4hSx 9vCQMbBTXdlZivpAJrVaLju8d s MHCfSGlmWU2tgTakV1TtwAY1F LGyz1n1Dg48W30cQ3RwtXK+PG GbvCG4lZY4nD3uXjOfVvI8NVd p K338KgAeaPIuWqpbh3ykr7jyo Gv6OtYxOTHpxhQsvFbtSEN0r5 XsJs28V06jNEuuZHDdACUyEWF i WVMeiIyrja3xmJ6wJo5+PGNvb OG2wHM2gB5aPaDdKyL9JJptO9 44KiWfuBXoQaabM29oD7BxaDH + YMJhLgc9DUXjgGpsSM9aoLFkY LwyYm6xSEX8RlEkWyHvJVqvK0 XrWDBprdvyqfarcDW9ZFXaURO w gL58Tt7fcLgpAn4xFFIwOJU0L PHinFHkK3IgjC1eWnJnWOByJX RtY0YznPTxTYsaQ149RCsbPcC 7 WAWzwdTlU9NjHZAccOdeFaV3e 6G8An4TjZzbyLVeWC1fCeLeUM b3C1XePat5GVCxvIxiUR6ipYP k EJegHn8odLjqrTuhLZ9bZQKao vgwb822FyBgy9ycSRBftQIrBB ltBKP6Q62bm4Y4KYTrBIIpPYL 7 sCP9fL3irYypsccosRAurAmft eLhhNydROeoAPtjX663CIXigH xxGvUIHxw1S9LcGjj1WPDkvZp s ZF6peJIeQOhmNp1kaBzfjSdvL Q0wBEOpivnag832UyBcc9rrBD MxtPQcNKdnNGI7G51yp0F1QWZ w BWAwNFO2dAT2iL5agHmbwfjma GVmdDsgdmVydGljYWwtYWxpZ2 72CZJwzFkxRg4ONlp5K6IfDqg 0 MEDmuYasPN7pqBBqELnnZa5id XserCfjIM5zBFSenrihb154Jz Mrc4tlRRVokXOjPNnqVNF0B28 s v4V5EUEgUXGmQKV5pAB3wE0ks GlnbjogbGVmdDsgdmVydGljYW ljTYszX947LTJlhUjlPkJncFW y OjwvdGQ+VN87fn17S8JmZtitR vw1FCHtAOP1kEA1kV8hPDYeNO zev1F7qYM1W7ZylwMjfa8aj8l s YXBz (more content not included)... [facility] Consent for Treatmenton 01-29 Consent for Treatment [id number]#1.00CD:12 7 [facility] Multi-Wound Charton 02-12-20 Multi-Wound Chart [id number]#1.00CD:1 27 [facility] Nursing Assessment - Woundon 02-11-2023 Nursing Assessment - Wound [id number]#1.00CD:1 27 [facility] Nursing Note - Woundon 02-11 Nursing Note - Wound [id number]#1.00CD:1 27 [facility] Physician Orderon 02-11-2023 Physician Order [id number]#1.00CD:1 27 [facility] Procedure - Woundon 02-12-20 Procedure - Wound [id number]#1.00CD:1 27 [facility] Progress Note - Woundon 01-29 Progress Note - Wound [id number]#1.00CD:1 27 [facility] Coding Summary.on 02-10-2023 Coding Summary. CD:[id number] Gh0bW w+PGhlYWQ+IB1SUBEgV84suCV jnB2tS7PDUHwIGxtjJCQUGQjH QeVzydXfZL4upQFmLKVu IC8+RW4lVLGrPtackEEnf6F9l NI5M79hhf2pZRqwtZW8EUClTf Vztibzj5umwJe2EPtiGduvAhA t RTXyzF19FPT1uT28Oa27zUAra RDbw3tepNv7EtVaYZIfJFR8dW ifNWmrb1WvIPOnD81qpUUeg8V 6 GQWqjXutcNRnExAgvWH1oN1zR Txsabwbw2vggfrpCkd1oy64rD Whj9F9fKH6N7FinvB9QZVjbMY g JkxxhJNItA4zuhoqm4yvbyogD oAfEGXpRZb1PNj6HDIncGbgKi QvKH62WZA5XNEnddKsY4KiNLJ s cCecToX1y6C0Tz7FL5KANdouY 1VNTUFSWTwvdGQ+DC60et19U1 DeWtwhPos6OGBlTQY4rMW6mW0 n DZZuYSrxf1L3jKP5U8AjtwBnu c9ni6leMKQkKQuiU78snXRln1 S7VWJopDC4LNUmnGgfIxHlkW6 3 Oyc+ZMModJfbu3LpEembl8wrp 9osuMt7ZeoiWZCrsdDpjYtwSY O7f0EgQx7mVHBrsYP1tEW9oB4 i VyBnDlF6ZWdbP084NuTaaFXfU vnrP80cW1UwpCK+KCUkDae0IQ VvlShqJZ8wS2VfVYIffpgteAC m nWntOR8qJNQubnvgEZSmlZ3lB SAuJ4z0LoIaGhU6WAlgC9IfYQ EuzyuyIn60rM8kVfSyJcC3IBa u K8IzhvB0SXQrlPFhYBfqLGJ3U 30mi8A4NNAwUAGeRMA9oGE2zI 1hbGlnbjogbGVmdDsgdmVydGl j QOvxKSaoA708BIQgeRgoHqRuL GluZyBEYXRlOiAgMDMvMTMvMj AyMzwvdGQ+FJScNQA0dFelNKE n nFCpFUmgUj2laOwjdSdvVW1eI MSobhdvBNYatC7tADJmpOQacY uxOZ6iTQAulovjh379VnLoUKT 0 RRGvvOThH4HyzK0vSxXeZMDzO LLfE2ZmzJXlTEoqA152WPfzJh K7IEAivfLgH3OaALXwgJlrDkV 0 b2C5Nm9Xt4ErmtdoJ5BzgKKwX qPdNmokFQj6V0RbAplxnWL+PC 47KEFvII52HRl8IQF6uMzxAMj i FYGsX4LhtP0gZmOyTDVpXIThR yc+PHRhYmxlIHdpZHRoPScxMD NmZwVeyMdjZK1eZu3aTZTqHUK v mEocnHJkEoXol0taIDUqVZohY A3guGdiO4KvrSC5KNYfs0n6Fu 50M73nG0PraIT+YJOjgHW0jGJ 0 kG1oBiQkFvJ8PVjdN048HuKjj BOyDfqnr6glk9qffGw5AlH9VZ AwwcNctOflKGJ5h0NdRc09V98 s IHdpZHRoPSIxNSUiIHZhbGlnb h5ftI3jDu1+ZLIitVW8qKX1vO 4yMvMiQmZ3FBiuS340JdApjZM v Hmfcn7lrs3aymOz1UrZvELPdw fBjmGpwJIR4d7NqMe48X8IlvC fxy0GoMnj9wl33qGDah0L6gPE 9 N6FwDXWkcqcwzTJnyFkpWC8vN OOzfcbnZUInsZ7gJUOgF4o8Qb LgWxM0LLjcR0UspaF2OGYcvZN g CMTdzMJMrL0zcdrha2cmqhqqO qMbPPChAJn9QIv9VKRnmIebSy IbYSU7ZmE9FYG2oVXjlM1suPx n wdralZ0rGud+MVC8iNPisKDOR N2bLumapAK+BKOvQCZ5mZjqDD qoIDGtsR1kDYLeE6m0ZlCzBwY 1 VDpbA7NijhD4LRYpzIKoSSZnh SBXzI6bqpqwq5ojsdqgHmTjJS QgVUu8VBo0FTAqaOpzYgHdOXP 0 YrB4BGT9mTKssW5dlUgeganlu G9wOyc+LjtrsEneBVX5LUz9C3 VnYlg5DOLwvGviUG5ksVYvJHu u Jk9rtYyccRmsUW0vEBRwnbsog 697ZpGbh5ldEYNeoDZpUZeyXS K4A71yt4E8ONWyXNNlMCN3zRR 4 kC5pyBitowvujBCbmUaqxhZuu TffNXihYZiyP288VDYfuSfkNm CfRGd3G2RwSrm6SXEhzVyzSI5 n qVMrWYzcRr4clEbkdBjiXR5mR BHqtqzih037LoByg5zkCXUxcL MsLEoyOGY3G97wr5O8NTYjTHZ w YIP6fZO7aY0slLmhwksnyQSge YodmpSuaBvhTLqyVCycU420CW FazFzvSmZpbXr8J2LzWbd9QZB z yIraFN1qyVIrVBodGd4tiKeyj DhfVH4eQHRutglfr111BnZhc8 gaIWFemFIxWQrsLKC1N70hs6Z 6 VEBxYHXlGRS1qRS3nM1ujKggu jogbGVmdDsgdmVydGljYWwtYW yhN506TTHdlIwpGkSgxElphhE g QGeeWFf5J9TpLxbzqKG+PC90Y GDlRZ11jTTijVRfd4ihzUb8Vh UoSTPgVEL9qUuxQCivb1YzIZE t I73cjWJdt4C1RBWqlSvcoTNwT yYpiJZ3kJ6gKExmbuzkm2vlvr joCfyvm6rayf76lD09F14rEJa p WJIrTLCgABUvQXQkfKlemh1ix G9wIi8+HXIriTS9jSQ5uZ5tEO ZaWsS7LJiqG708ViAjoHIfMli j u3lev3tgpAe3LsU3RZXrglMvd YwiIGJ9h5RvFz93M43gTYdjEJ RnANWrMPWaJXFkvEagtz8fcA7 w Ii8+VATltJL5jNL5nR0qAbFoX uU6MBynT963HvRnhVUuKyzuU3 8hO2ApgEC+TSQjHfy0HAQfqWn s YG6liGTvWLzpGn8yRRA9VzWhH rGtDNqfS1QdZWRfxgsiioqmdL R2QGTqBGBoqG13Pi0sxOhuPQJ w aQHDwF6zuczaa4hnjacvWwRqL IUtPVl5LPu3CLDisXgnGrCrFV S7IfE8VIW9kHXhrT1duFyqzub g eZ4zP4VdYQIunmwiYx50gJ7uS kCyMpX2MEoqDjs+VEFOTkVSLC JIL65BEWOcSOrhhTM+PHRkIHN 0 vRcbXLqaJBWzrF2yYMHzL2b6U nFiHtA6KYxbA9TwRQUxztjiCa 73bK4iEwMsJsO3QOqhW4OzqtS 6 VKKgxXYyMHpuCMY5G57uo2H5M XKmHBNcTMY6gXH7bG8vnYbwjm ogbGVmdDsgdmVydGljYWwtYWx p Y655HJUxvEvrRcWvCdQ2WhC3F Dj0Z3JfDuq0QDLrzGnqKY7ckD OqKEhiLq2rmLfzzIpoUU9wRBC p jmjdAQIxmQ2hHVTezAWzwSapB X6cTFBcciykc404IyEbXLF2VM LpnIYgL0CfdW1fCjGrNNAdAAJ w X3QeiFYrCAqgZ696WAozHgD7J IDfzcIeZ9YgGOJkgBmdBnV8r3 N8Dj05NGNMBDGunuwmpGK+PHR k GLP8rHptKVtmJNYhaC6jGLQrG 0d2WrWcUuH6CPedE7TsXLTpev dfLg33pG4rIoSvLzB1MIsbX1O v kgB8QHFdtIMvGXwxXMI8U73rz 4Q7HCDeBGHlAGG5tCK3aH8pbQ lnbjogbGVmdDsgdmVydGljYWw t YQenF940UVRrkNreCm3yqFO2L 7TiKix3POUcxJioUG4etPYeWL gtQi4joFdvyFjoLG4fKUYvyqt w YBRstK9cVSQivNDleLlcNP3iB AGlskrpz571ZtUpWXH4ZCLdnO FsV5McrT8uTvBjEZThSLXrX0N l jMQzBUosL558GCsqBhQ8ARDgd wLqM5KrXTPlmOknUpS9u9C2Ke 0WqKPqCKGbER40RM17QH96S8C y PjwvdGFibGU+PHRhYmxlIHdpZ EKmWAtcWCNsCoFaqXrrLE0dFh 0qPGVpZFWraGdnlPUvHnHzc0z s KLXwEEggJT8nqWfmF5CkkZJ4M HQff9y9Fu90R07sA6GunIW+PG MbpWX9rQQ4bA9hZxMdSxX3NCq p M752UxEhwBXdQcyfa6fbb4vmd Kw7UdTkBJTlxnUkdIepYSI4w2 LeOt94W55kACsuUGNiWVLaLOB i PMOgkThogd8pwM3nSh4+PGNvb NY0yCH3mP6tYtSeQeD9YDtgJ9 52YdFxsZSmXgbnT13hU8DxyCL + LOInYqs9TSMkzXncWX3kaCWrT SmwNq0zUJF5CxThNaKqVUrnB3 IbSMLmvxvtsqvfaLC8PAIyGKW w xB92Tm9qmIuvIm4dYDVzRUF9X LKzzFWlV6ZegQ6dUkSxGJLvUE UjN2FrrPUoGCszP656PAxjBzD 7 HDDuurNmR4UjGEMjkFobCvE4f 1V9Pc0QnSjlvZAoYM8kJxKeYZ b9I7PhMrh3ATXhfScsKB4ksBP k YZoxIh2viGrqwGdsPX0tYPZxi hupm840RhOov1xuACTowOUkHE slXYQ3P18fc7F6NSKzSDAzLLE 7 dSF6lR9hxRbzyjpvkRNyyZipd gAzrRegUXjiLRtdE591AWZbdN poCkJPBzp8A6RtTej9ANIjkPt s HA4uuTXxVGqjEi0bvNxbjZzdL K7xIHIgwwotd677JoDvw1whQL UduFJsDHjlVMA1S28fp6O3OJF w EKSkBYL9zTJ6kD5anNvftbaen GVmdDsgdmVydGljYWwtYWxpZ2 10VJMkiInxOk5NEjx5V2KuKdc 0 FBVpgMguZE8qeAFnBCruRi7zk MofsJufKT8gWBDuhmmxd685Zn Vvm8afGZPpmCPnATjjRYW8S14 s x2A4SHHqWBDoZRG1pJI4aL6sj GlnbjogbGVmdDsgdmVydGljYW mvWKvtS382LXChqZlsCqAmiBB y OjwvdGQ+DS96gc94P2YrInmlQ ty5PGBjKCW8bID1fH3cUOPrHJ xol3O4xJF4U4WnujCywb8ra6q s YXBz (more content not included)... [facility] Procedure - Woundon 02-07-20 Procedure - Wound [id number]#2.00CD:1 27 [facility] Consent for Procedure/Surger yon 02-05-2023 Consent for Procedure/Surgery [id number]#1.00CD:12 7 [facility] Nursing Assessment - Woundon 02-05-2023 Nursing Assessment - Wound [id number]#1.00CD:12 7 [facility] Nursing Note - Woundon 02-05 Nursing Note - Wound [id number]#1.00CD:12 7 [facility] Progress Note - Woundon Progress Note - Wound [id number]#2.00CD:1 27 [facility] Coding Summary.on 02-04-2023 Coding Summary. CD:[id number] Gh0bW w+PGhlYWQ+UG3WNCLqP59xzBU rpN9CX5nQAE4NRJYPERXFRK7S XL7cjJA2GJkfS6EapoGr NhyumRMeXV17NTa0XNY9gEurJ KvooP8vaQDvH9a3LjLtRV46bD 05YLksOHSfPyJ0ZrNtykzgqJY y M2dvCmIdkWQcFpz+PHRhYmxlI HdpZHRoPScxMDAlJyBzdHlsZT 8lMg8wQBHcTHPavGriyNKjVwN j q5wsAHZyYRbdJR7rqGabJ7Dbm BG3YGEkq9t6Wd25bRJ+PHRkIH Y3iEyjKQokf314XjXlw4vrRUA 3 gQLsEEnbNMO7E66mh9E7BRKkX ZJzEJS5oLG8tJ4dlEvszoxdA2 ZzhHTkZwL3ANS4mUVakP7bpMs n ucmkxV2pXep+Z98NPL3MXYSGG U7DVgc3A0ToNezelGD+PC90YW AxJR32nIKymNGaq7juwZs0ExR w UJOlHLF6mXiaQCfly8UjFWOoO 93ccJWah8C5AUXnkOmabJTvLq GzgRA5rJ8zICngsdtyr6cpdum n Npdfh1uyhx51bQ74R56rZYwuW KAwSPH0MQQrLMDroJkvzu2geN 9wIi8+YYhcn6eem0glnWs4VpF w VCRzbpDkiJliHJC0x1SlOd14P 5HdeVgml6SeCrc1xz04nXIhx5 B9uTT0JAmfHOVouA5sLNetByT 6 IURlMqHriQ84nNOrYZkgDm6cw CkluXhfIN8dETAybmvrHGKltM 1kSOAqoBNsaKyaDC2kTICuwjc m r135VlPuZYL0VEGbjNGtO2Lwy R3bAsHzNBJlCPTjA2VwzGTsCA eiS234CHirPdF7CFFaxhCiP8J s TMRqzGctUlA0n2E1Er4Tr0Dvv xenDPB4OKsqKKKsWdH0QvZvEn K2T1BgNbd0XJLupKfyQC5lE8A h XZNhryqejyuplDX0BLMdYBPnx G90sBOtSLaxNg2ot3T8v888QU QgOLBglH74Sh9lmXayAVKbdFE U cW9uelxas4pvrmblKoCkRWCzE Am1SDo6ACVjxFqtQsEfEZO6Gz U2VIL9nAMbgW7olNiejgcoqL2 w Oyc+D30ufV7uJWQ6APJ1apemT ZSyoaGoCX39IM38W2EyWbcxxA FibGU+ZUBclrGcvTppEP9lKoH j r6lrx5JiGBeqY0OaKEFoZRqvF vo8QRYgVLE9eOC1yO2tMOPgZS ild5R1qWH9Y6RvmsCfte1jy8c s PFXmYJuoJ09jmVJhq4E6PBPbd FR2YIKejHxvBcDjpH36Wcz+PG QxnOvgd8HiWqgeq6qah9inaXf 9 FzYkIBXrjmRxtWdrXBE7j4UhV b75I89vIAlpXGNeSGKlCFCxMY SdxYguxc9qdZ8kBi1+PGNvbCB 3 gSE2kS9kFHMjDhX4COwsW713L aOnlASsGkllt4vnd7rjbPd3Kg WzNQOppqRdcBjgAER5f1HrKb2 8 C68mBYozTITyYWMkTBNdYMMxl Dzmht0kcB0tZr0+MF1pk1hzds 09jU06jVO+XNIfBHU2uCwiQBq w CKKgqX7fOVebVhT9TNUsFkKcx F44cBXlEZyxHf5mhYwsxFgxFQ 9lRSJxetcyg519LqYtq4euYHA w mQJjOVavFKZ9Y77eg3F8VUKtV HUeTDA1gDT7wI3khMxgzzbfxB UeiCdovdCtqUpeCRrdYAvtW38 6 IHRvcDsnPlBhdGllbnQgTmFtZ Wg4Z9UdUxk1VNBtqQrlIH0ehE VxBJrtMc3kzJmviTchGS6kEDR p nllqi680RbEel0riEAGqqQBbF PedTRQ8C40qw4J2TOBiCMFrKJ H5gBQ7qA3giUyqmghazVLjfBq g ngLrhMgoITqoEMtdK022HDJir YpgBcUhnqMoDDAirGD0TK03AU 21eCAsl7F4fUV8X3AbBCIhixz t yfblrZR9JSElJJGhfW61Dc0bm BqxOs7hFXYxQKL8LPGaqRSqE6 JntG1zOqEpDUCiRXFuH0QtrMJ t FZwuE803UGmsBrC2MTEykaYaS 3LjAYPivOffEwJ4n6H3Eg9QQ0 J0WN68QT44aIBqv4Y6wRE4U9U h EOHtwpawvfflhHD3LFUpWWNpm J87Xv3ixMusDu4vGYHkEJO6RI LnfGFdD9TaxU6lFyEfDUSwOEN w C5HyfXWiMStkC428QTyyHrW2I LCyknEtT0NvRWVydJjyZvO9a4 B7Tj6VIPw8EG28CB55kKHgz7E 5 jZH1K5AdBLSxrugpmkigzTS6L VDlZWJgmO68Gn3wlImqKt6lZX JgEON4DRMobKOuD7UjhC7qSxO j ZROkLVDrN3ZugSTyMLadD675I OfkUaO9KWFhrlXsX2HfRHLgtG wtUwP3s4O1Is8MPIQhVX16LSB 5 uRY1HU98NH85J3MnDmqcvRGpu +PHRhYmxlIHdpZHRoPScxMD MuKwAeiEowQU4nKb2gMPBtMOX v zUyvnCYdDlAsx6zpEXOdNDuqA R1lqYrrZ2CarMZ2XMHue3h1Gu 31W29hH7NupZZ+CYPnqJZ6fZB 0 hK6yOfJhLlO2XUylS671XkMpi JMrTvdnb7gza8rcvQh5NrG1AH IzjvAupWehNUI8i0WqNw67Q51 s IHdpZHRoPSIxNSUiIHZhbGlnb o9vmX9dNw1+CFZniEK5dHO3tW 6lYpYmDcL9HJoeZ350ClEkwCJ v Gjlkp6ipg6wayPf7ZvPcZBYvf gMzfMyfJXW5t1NhZh51H3HabC suc9RoOfk8wy70oQYev4R0aNT 9 A5TqDACdbihtbDZxoXynJU1qT EAuvaxbXLJbdM2lUYMwL6x8Xg IsNgP7HHhbR5WrtzO0LYRacOX g GFoaFGK3P68zk9I3XHWkVTOoH VB3dDD5jH9yxZpzmsxyxLUwmP kniwSnvLdfXVhpBWjiT860CYH v mNzgZWWvqJ6iPZVusYWqsCqmZ B4cBFEimbaqGcEDHe1RBhrcUW 6QAMqFPGa9A2NgXqg7LHTocHr s LG2jzKKhOJapQw4imXrbdSykD A8bVJSwhvdxKUGvkO4aJBAyeF AnwKwiCJ5uKBKbnuxyp623VcU x FVK0SDBrmKRmL4OscP9gRgTdU FClEAOdO4PzpYOyMMueR458XI hxRmM8AGJmavSzE8IvHGGozSv u XyL8p0W9Te2dPj8gXF7wEQS0N T51JJ98zINll4R7dZI7H9EgEI WgcywwmnlzmIW1AFBsPCWmzU3 7 jHFeRIqcEr9qp7A0q588VYFwL HRwuU16Bb1dtOozYGEwzNJHsW 8aiwywp7pvsmhxHaMuTOVyXCg 0 KMk1YFAawYvoLoRnHJT6DaD9I TZ8mJEvqC0cqEwrtfumeL9dFr c+JoFoRNYbidH5L4KjLqq8SYO z qBfeIE0tpMDlYBntSj1pqVele FluTL8lBAPwjtahTNTleN1yIL SjxWHcwKdbHF8jWQWhtwdug46 0 JwVfNXX7ZTBcjODsL0ZzmN6cL wCiZQGsATBtU8AlxYItADlrN7 78WOevNcZ8UUEpcnTuM6XaBBC s mGpcFvN5e1O0Rw5CRTyyHJ71K D75rMMwl6R6aOC5A2HuWPBopl ianltsxRE2AIYeHKAsqF16nQQ k JRxrBb6gq9T3l019OLYyEZJlk N05Ip8nrWteJZGpuKZHpO9rxs iis8vqbslpHpCzYUApWCu8LQa 0 OWGyaCtfXcMkDCU0BtB8ILK3s LBtuJ8lzFryoptclO8vFbc+T3 K8rOJ4eGCjwZzthOT+PU11hf5 8 Q6LfNhfcQqt1YWSrZVK2gXG4j L8tFAEyLOxsp5V1tKP5R2Pram Ftkc8xl8zmUMUpCRomA62wwYZ w c9R3DGQnwDS8KIOwwLxkMgRgj G93Oyc+TTIopOrmr9WvAicdt9 xdi6zmkDz4JzMyERXloyYajPy u FFF5y9WnPp17Z53vZHpnJDNvP BAxAHPgPNBbeHgtqr2egN6aTi 8+FSVcuPF3uEK0pW8pYqRaItO 2 RHqjU156UrSgaMQePpylf3wov 5bgjRc3XxGmQWVntkYcsAqbYQ N8u5CyOh41H3GduRdri2RzCfc 0 pn18nIUqj7R3pLQ0E3ZeTSNzi rddqELzzBtbRC8zHQZyrjsiTA EpvY4fCTUvP6k3BkBsJrU8TKx u P0QrwzJ9XWKdmSRiHXOhoVUTz Z8xivfnw2mwligmDkBiTHGiXU k1UXb0QTTmfBjwPqFrEQB8ImL 2 NUJ9kBUrbW0uwDuyuecpfM3hE yc+USu3e4iadSNhCG2lcLX6PB 29MC16cFBhk8E2gVW4S6HsIYS p ljjunffupGD2IUKaIHNtrD10M y8rsJlxDi4bKXLdLOT2OYLwbX BlV1VwxS9dMwZrIOItDODjT7Z l uYBsJHekO428GJjmEvX3VQYir kHyQ3EtXQZqdMleBgU3n8I9Ck 7XND77OY95VO42rSIuy6X0yYM 9 K8QzBTFxggbtcntwkCU2SPGkH ZYfsK63Dv2ngFuhVb6bOUVcCP N1VZHiiXFtO4WfbP6zCoCyYMR w TVPiY4IroZPjBXkyV899WYkrA cB5DIWtvpSuR0WgVTCbwKihBv Z7g3Q2Kx7NSa65PO81OW50xDS g z7S1kCM6O1UtTEKbarcivxfzt LS7TQRoFXYpzX91Jz3xnLifBg 6bQWIfOHS7LJQwyYZpB7QbpQ7 y QrFkMZIcLWZoW8BfmLQcYJplM 982HMsyNeM5YLQysiOvG2WdNC KrkQneQgA9c8N7Pd6FQZdvtrm 8 P6YiVxvcvSM+LJ26RHAyGN61g JMyhMZja5ntaFc2NeLmQPWvVI Y4wCyqBVzbb6PnSQYnH38jlLL w c2U6 (more content not included)... Normal [facility] Coding Summary. CD:[id number] Gh0bW w+PGhlYWQ+AE3YYJJqY27qvEC alF5IM2zWTJ4UYPDVPNUYOR0E VY0mpBG1QRtxI2GgqwOv TvutiWOyYH18EKt5CJU2mNuhB MnixZ2swFKoY4b7MoSoYX59jE 23ZZmzOKAsToV9PkYduyklgAZ y I7uxSmBtiJWzYby+PHRhYmxlI HdpZHRoPScxMDAlJyBzdHlsZT 7lNk5gZCSyGTKsuEtlwGMnLmY j u0nxYFBdZIbwFV1yfYzgD9Wvj HY8MFWjw4z3Ha79jJW+PHRkIH F7xHxeTNpki370OvOao6rgLVG 3 xFJyIIojGEN3O04ga6U8IHMfW WPiJBB1hER4sQ4nyTaelimnM2 FspAYhQqM6QEK7hIZvoF3ziHp n lfhltE6jJnt+I15IGK6JUAMLX A1FSvv3E5DhCxaakHU+PC90YW FlID37fYElvUZfd2miuRi4ImR w GDMxPOW8mBpfHCfdj5JbLZOiL 87ayQVyj0L6LJVkbAzcjUQyNt FwaAY7uL7qLEavxevwf9vzwqa n Nscru3wqsq32rJ04I92nVLniI GWtTEC9UJDjCHDmfDyuco2vkI 9wIi8+RFagz3mqn8wopEo8DgZ w DUZkdxMidDbqACA1y7EjLz29B 8FbzPpvh9LkHox1lg45iXGit7 I7zJD9PTrbZFHiyB6eGCziFwP 6 ZTPwRzFhuV79eEAnOYouJo4dh YtcnStuUG2aLUOjwgbjKUIidO 5oKFYrkDFooWdiBO0xEIKnetz m u335WcAgWWN5UFPgdXLpB6Qox J0oPhBbOORsNYArQ8VgdHFzES zdK884EFslFdM9JQQcpbPwP6M s IDNomUnqCwE8w9U0Xz5Gg6Kvl hmrXVP5HAxlOLRkOrL1LpNwKm I2L3DiCdv7AZMocYohGO7aT6E h GUGdunfyxgkheKS8IOQcZBIcg Y28dLIuRHatRw3bv4M8g343OP KqRSVenM45Lq3geLbqYZHgwEH U tO3umyznz3sfckngDmPcNPGcX Ct6RMn7ORQmxLnzCkXsXXT6Af G6WJN9oTAloL5vbUqubokwhF8 w Oyc+M83gsH4hSXP5LPK7brhoJ RUsghAvTP84DH86T7ZjNuwshQ FibGU+WNOitvIvwUrsFF0mQbN j m8pjf8LbZPkkV7HoJWLeKMqbI ro4ZZPqCYP6pJE0pU9zXBZfBA fdb9F4uPN3H4MbjdEthw0ao1v s YPWoJWuxU48qoXOyj5K6XOJus GW6JEQhgNraWhSopT60Nyw+PG QrcHlox9MzLxlov8jtx7rlxHn 9 XmGxPONdesTftZvbSYN7w9WqL f79J30cUQgtNWYgZWEiRIAbFN MarXtakq7ydH8sIr2+PGNvbCB 3 xWH8bG0xCBMyVbX2UZjqD300H kHpyALwPicza9oan4fvnGg8Ea EaHODtqxFgkVyaNUC2e4MpIa1 8 F47jSDbmWVChTTJcRBEfBCVbn Aaamw4xhP5tAi9+OL4tm9lroz 57rX21fSR+FYLzNLK9hVbpOFj w IQCuyZ3yLVxgFjJ3VLNmVuCtz M28lQKrLAecCy8mdEjypGosQK 0tVYVwuaqsl282HnEjj2caZLR w mABeDYfpCFY4D18kj2U4VEGyF FHmOTF3pQQ1xM9dyLzlnaaekD XpcPqmvmLhrMixXHawJUlfZ19 6 IHRvcDsnPlBhdGllbnQgTmFtZ Sw8X0YcWas3UFDupWseMW3ndA HoQUkwTy5egEyksLdaOB6uNZZ p gvpxp544FrPsb2cnQBUubJJtV QfnQET5I78ep7E1RZZyRXNmLK G7jCG7yA7gjNywmlhebMOlrYs g iqLrvTsvPVxrVJpuF440YFRvb IpsDdAgyaGaCXUlyLL4SB31HJ 79nOUpp4V2hAY7Z9DzBSJaxtb t swcjdCB5LAFcUNGurH22Cj9bf AiiWj9vAIWeEZQ0NHJgnPAwA7 LmbQ7oMiDxMXAoURBqW7HypOO t NFuoB791DYquXaA5VOWvkaDrM 9VvVMXmmZchLaA8p8W1Wz2LM3 F3OE87BZ88yQBss3U3aWL7R1Y h EVOnihobtllyjVI9GGSdHUSch G83Ec4egUrdSu2mYQIpGPB2VN RkwPWhN0KymW6wGoKsRBBtDGP w L5CrfTUxSWqwZ651XAcvHbJ8I OGtalVeL2DiTNLojOlmXqO3z6 A2Ld2OFKu1OC36BC88vOOhw5O 5 jPD2P2XfRJQtjhzleqlfsMI3J HRoEPPboO47Uc3hdLvvEb8eZY GcZYC2QUFlxKRfA0CgwB3yDdY j FYRuEUVoP8PyiSUeXYvhZ442V OusXsM8VBAohbZqF8GyQMEnnD ugCxP7q0A1Qr4YGFPoTL19EYA 5 aHL2GI86KE97L2HdRabebLPel +PHRhYmxlIHdpZHRoPScxMD JlGnCbkPooQY5yOf8yYWJnRAS v lSzljXBkWvPdo1uyDQHxELykS P7mqGrnE0OgtDQ7CGBea1i6Zx 67C43yC3VwxAN+QTCtoIF5zJY 0 cT9cTmEeOrE5WNruH463ZsZlf FQnHdjcb1ehl9rbvSp4JyM9DA CcdiXfaEoeSPU9y3IxDy28P91 s IHdpZHRoPSIxNSUiIHZhbGlnb x5reA7rXi9+BYGjuFG1oYT7tC 2nTzQeFkZ5RHoiJ185EcEpiZC v Dxchq0cxa0qcrVg7UtRpDOAdu tVyeKuoXZQ5d3QsRg58Z8XvbS bkh6IvQyx5jb80mFLpn1H1yMD 9 K6HtFUQtiffdxPNlcUawLI1zN RCkbqwvGDOfrA4zSZZqC6k7Pv XnLnH0OEdjC5CszyF9AXLfqDF g VCaaHYX2P87cd4R0LHPkHPLoS QB6fXD0wW9udFwmwraqbGLysQ qwplCdxNihYQcxDDuzB577XRK v cGrzTZVyrF8dIZBtpPYmaSwcD K2sMDViidrjVnJGNo0BVdksDH 2BIWmOCMw9R0SaZxd4BTVshOt s QX6hqXTrDGofTf2ezVzqpKehE L8yYKKjlquqIRVynC4aLULydW IbeDriFD0xYNKabskbc718QxA x TYJ0TSTogSLlX5PpvA1lZiSaZ WOsOMBtT7FbiYQnLLsqZ027SA pvQbC2NARtiyCpT4KeAVQfzJy u LjB7k3Y2Sa2hDx6xPN9nZBJ7Q R19XP61jMDyd0X1yOI8D0IjIL OzmlqkxlbpfVS6TIUeTNFfnP0 7 tZRgJXrtYl9ps8P7q449GLYuH JQtfI11Ek0jjAcnPUMlpKOFsO 0sfdjjs9uesanlXuBbBSOzOPn 0 YKh0ZCThhJreHdGfULC7VcC1H VC1pTCjhB6gyYgtrcornE4wDi c+RyGiYNFrqvO7R9XbLtw7JQN z iIkwTF8hzRMdBSlfPc7iqJhaa RbeTM7mTOIlnqbcGCWavE5qFH TbaOKdvMoxER8cFSAivioyp40 0 YhCrISZ1MTCayPSjW9WarX9aC uJfFHLxXVXkQ2TvjQEoBUlvN9 44QLqtAaH1JVEsyqSxV2HwLQO s hQlsPsN3u7W4Xn9WKTjwRZ89Y V32rJKos8P8fFN6Z9GwKQCdqy hzakxgaHD3NDIdYFDtlQ51xSK k QFzyCi3qq9Z3i203TZMbJXIxh C70Cm0tfGfnOZSwwWUWlS6fui vgb6ncvmxfWcSmHCLjYXz8QNf 0 QOIsuZycKsBbWJN6WbC4VPE4d KVrhP2umPrblrwabK8xQwt+T3 S2yUF0vIHktThacTH+KO40zg2 8 P3FxSctxIcb6FPMaMZY8aFC8d E6sCVSpQEsnz7L8eNQ7T9Scfy Xocv0yg4alTPZwZXuzU09jpWL w u2L4CWRrrIF4YDVsnPmlLgBnh G93Oyc+HWKlsGrsx2DaZxpdh8 lux3vhjAc4RzOkYYHjfmGsrEx u VEW6v7JmNm34A11lFApvTPSqM VOgBHBkKRGrcXwkla4anQ5zEx 8+BPPibBJ0xSZ6hJ3xYsHeZwG 2 TQcjS481TiYvsUNyRsjdb4szp 4wvwDv4JhDuJZFgnjPyhJldPJ I6c9GlIv10P9LvkJhzs4AzCrb 0 yu56eBHoh8K3zVU1C1RyZZAnw tekyLYsiSnhBV9vKKPfgfpcJM BafU0qXAYcU6o0UdJjDpA4TKv u F4IijhT5MJBcnCMxZJMcsKAZy W4uvqaam0hamvjcQqBrKFElDE k5RPq6SUPyaLujLgZoYKN6KvA 2 MWR4iNWtyQ5ckMydxkfdnJ9iO yc+ZBu7i5vwtPHiVP1vaFF9OY 53ZL15vWVsm4F5kEX4O3SrJPZ p hlbpvfcceVF6VARwUIBdoZ14S x6xfDgzVs2nUQUgYDE1VHIaqM LyR4HvfP8gEkYcUKQgNNUcM2E l vETqZBxnY755AEdtNiQ7RSEqg qAeE2YqTUPekVyeIjU7f1Y5Cj 4UHG62PM36ZR81iUYvj1U3oBH 9 S5SyCSAtjdfatkszkIW1PDFfA LMirV85Qh4ukHzkZm3zDQAfYE Y3NVMdrIDhC3BqhE3dOoUsQYM w BQJqP8RgoAAjUFvyK390WQwsL tG9UNCxfkZeI5EgZZDgxZogQn C6q7W7Rw0NAk42LJ96WY34zKE g z7Y4hFR4Z3ViHWNdsciyfssuk IR1CAOdECQikE06Ll8yrUxbFk 3cKVHnTPW6WAVfmIFmC9CxjD9 y DzEwGNCaUFAfY6OxbUWxQCcrF 341MCknGbS9DFWbdiQjE5NqJQ WbzTirQgV0l5O0Sh8UCDfyzzq 8 D0LoNlkwwRD+HA01PUOfXE45s FLhyIDac4tckDx4LwWiMAGjSC H0ySihFSujy1RuCTNsZ76ydFL w c2U6 (more content not included)... Normal [facility] Consent for Treatmenton Consent for Treatment [id number]#1.00CD:12 7 Normal [facility] Physician Orderon 02-04-2023 Physician Order [id number]#1.00CD:1 27 Normal [facility] BMPon 01-28-2023 Anion gap [Moles/Vol] 12 mmol/L Normal 6-16 [facility] Comment on above: Performed By: #### 1 [id number], 7979932, [id number] ####[facility] [address] [place] [address] Calcium [Mass/Vol] 9.2 mg/dL Normal 8.9-11.1 [facility] Comment on above: Performed By: #### 1 [id number], 8051036, 3185632 ####[facility] [address] [place] [address] Chloride [Moles/Vol] 100 mmol/L Low 101-111 [facility] Comment on above: Performed By: #### 1 [id number], 7619732, 5848432 ####[facility] [address] [place] [address] CO2 [Moles/Vol] 30 mmol/L Normal 21-31 [facility] Comment on above: Performed By: #### 1 0143552, 0736172, 0054794 ####[facility] [address] [place] [address] Creatinine [Mass/Vol] 0.8 mg/dL Normal 0.5-1.3 [facility] Comment on above: Performed By: #### 1 8992551, 9948537, 0779010 ####[facility] [address] [place] [address] Glucose [Mass/Vol] 96 mg/dL Normal 55-199 [facility] Comment on above: Result Comment: If t his glucose result represents a fasting glucose, interpretation should refer to the following reference range: 55-99 mg/dL Performed By: #### 1 [id number], 2977192, 0063570 ####[facility] [address] [place] [address] Potassium [Moles/Vol] 3.6 mmol/L Normal 3.5-5.3 [facility] Comment on above: Performed By: #### 1 1961009, 9951490, 7288183 ####[facility] [address] [place] [address] Sodium [Moles/Vol] 138 mmol/L Normal 135-145 [facility] Comment on above: Performed By: #### 1 [id number], 0249337, 7986453 ####[facility] [address] [place] [address] Urea nitrogen [Mass/Vol] 21 mg/dL Normal 5-21 [facility] Comment on above: Performed By: #### 1 4027429, 5041046, 6351216 ####[facility] [address] [place] [address] Urea nitrogen/Creatinine [Mass ratio] 26 No Units High 10-20 [facility] Comment on above: Performed By: #### 1 [id number], 6130463, 6664909 ####[facility] [address] [place] [address] CBC w/Indiceson 01-28-2023 Erythrocyte distribution width (RBC) [Ratio] 14.7 % High 10.9-14.2 [facility] Comment on above: Performed By: #### 1 4964555, 0705505, 5141876 ####[facility] [address] [place] [address] Hematocrit (Bld) [Volume fraction] 36.3 % Low 37.7-49.0 [facility] Comment on above: Performed By: #### 1 7491703, 0923409, 2105378 ####[address] [address] Hemoglobin (Bld) [Mass/Vol] 12.0 g/dL Low 13.5-17.5 [facility] Comment on above: Performed By: #### 1 4306623, 0680103, 6683268 ####[address] [address] MCH (RBC) [Entitic mass] 28.6 pg Normal 27.0-34.0 [facility] Comment on above: Performed By: #### 1 1682204, 9341219, 0981803 ####[address] [address] MCHC (RBC) [Mass/Vol] 33.1 g/dL Normal 31.4-36.0 [facility] Comment on above: Performed By: #### 1 1382740, 3968047, 9538534 ####[address] [address] MCV (RBC) [Entitic vol] 86.3 fL Normal 80.0-100.0 [facility] Comment on above: Performed By: #### 1 9999485, 8472654, 0576008 ####[address] [address] Platelet mean volume (Bld) [Entitic vol] 9.1 fL Normal 6.4-10.8 [facility] Comment on above: Performed By: #### 1 1247870, 0687728, 1315527 ####[address] [address] Platelets (Bld) [#/Vol] 272.0 E9/L Normal 150.0-500.0 [facility] Comment on above: Performed By: #### 1 9679916, 7561549, 2270647 ####[address] [place] [address] RBC (Bld) [#/Vol] 4.2 E12/L Low 4.3-5.9 [facility] Comment on above: Performed By: #### 1 7489820, 1371883, 6993523 ####[facility] [address] [place] [address] WBC corrected for nucl RBC Auto (Bld) [#/Vol] 7.6 E9/L Normal 4.0-11.0 [facility] Comment on above: Performed By: #### 1 8139437, 5970923, 1822072 ####[facility] [address] [place] [address] Consent for Treatmenton 01-02 Consent for Treatment [id number]#1.00CD:12 [facility] Consent for Treatment [id number]#1.00CD:12 7 [facility] Multi-Wound Charton 01-28-20 Multi-Wound Chart [id number]#1.00CD:1 27 [facility] Nursing Assessment - Woundon 01-28-2023 Nursing Assessment - Wound [id number]#1.00CD:1 27 [facility] Nursing Note - Woundon 01-28 Nursing Note - Wound [id number]#1.00CD:1 27 [facility] Physician Orderon 01-28-2023 Physician Order [id number]#1.00CD:1 27 [facility] Procedure - Woundon 01-28-20 Procedure - Wound [id number]#1.00CD:1 27 [facility] Progress Note - Woundon 01-02 Progress Note - Wound [id number]#2.00CD:1 27 Normal [facility] eGFRon 01-28-2023 GFR/1.73 sq M.predicted among blacks MDRD (S/P/Bld) [Vol rate/Area] mL/min/{1.73_m2} Normal >=59 [facility] Comment on above: Order Comment: Order added by Discern Expert. Result Comment: eGFR is race adjusted. AA=. Performed By: #### 1 [id number], 8284655, 5379890 ####[facility] [address] [place] [address] GFR/1.73 sq M.predicted among non-blacks MDRD (S/P/Bld) [Vol rate/Area] mL/min/{1.73_m2} Normal >=59 [facility] Comment on above: Order Comment: Order added by Discern Expert. Result Comment: Propagation Worker mercy kidney disease could be indicated at eGFR's of less than 60 mL/min/1.73m2. Kidney failure is indicated at less than 15 mL/min/1.73m2. Performed By: #### 1 [id number], 3679477, 9800361 ####[facility] [address] [place] [address] Coding Summary.on 01-22-2023 Coding Summary. CD:[id number] Gh0bW w+PGhlYWQ+LV2LIOTdV68ktLV jgX8KM3nIFX8EKLFLTNEKNE7Z NJ8mqXM6EThjD8SokjVv QoomhSIyNY66DUt1QPQ1sAtmM OhqqH8jkHLvI0e1EeYvSG27hF 53XNhrKLMxJdU9FjRjfyioaOE y H6kdVsTveGVjLou+PHRhYmxlI HdpZHRoPScxMDAlJyBzdHlsZT 2pIl8sTDJmRPXvkJpjeJLkYoY j g7cpJEGiIMpuJR7giKtjD6Grm EB8KLNvy3o1Vp44vCS+PHRkIH O8vXzqQWaop960NtIjh3baTIY 3 hQJtLIbjGXL7B23xd0L3XUChH IWoPUW7uAE9xL8fxHdwirvlI3 SkjVAtGwX4HDY6gEIvlE6bxOc n uxcoqN2oLhb+L21JZY0TJXBNO D4ZBsy0D8VkPuwsbJT+PC90YW RtYT18zVVlfFScf3whhUv5TnX w AYGjIGX9aRvbWLkjh4MmIIYoB 75gvDLqe4E1HKRzbEprtUXpYg DxuRI6oU7dLAnxvzykl3jrste n Kwsui4pnuj96aR53K40kOQaoG QJmMKX3FHKlWJQksKfoxx3ehO 9wIi8+KEgxy5phc7gxgSo2FoT w FNDxoeCgxOcfXSQ3p5DqLo79D 4XyxPpza8XfHza8ak38vVPnb9 S0fKR8QDspJCUdjP0mSVyoZeH 6 HJLgCuLzzD32sWLiHDghQe6qv ZjydDcdTX7uTCHabinqOBUbpU 8gOLPmsCGnkEhdOG0iPMYtwtg m t479DvBrIDI8JVRzuKFtS1Gcr W8yOgBgSOImZEDxW4FrgACeNR qeB010IEtaNoT2MHZqeaIeX2R s AZAciIkgBtT3e3R7Vp3Sd7Xws yvqGVZ9EIgxXKVyRaMgHgBsVc Y6R1FqDpv5JHUojUlmHN9mK1P h BYBsmkphtarguRI8XSWrLHFuh K84gQJlRXuqHi0um3V2j570FY ItUYHxoI54Xy8rrKtaOMHbgIR U yW5jrkmme3zreyroGcEsVPNlV Zz7UPx9DRWhdNbxAeCnCNH8Dx I7TUE2mBPoyL7oeMqtcffjsT2 w Oyc+H73ngO4cTIK3YDL5kftaI KZmgoSqBA34NV75W6ClKijflO FibGU+JVDkxtVduXkhCA6bYsR j z8twl7GkVXngC2CsVBSaXPpvV ti1YHHkUMG8gCS1aU5wNVRmNA tbb9B9bDL2C3ScirYlqm3lc9y s OKZcKVxtH43qbFKvf9H8OENqw CT1PILpoYdnXhFnkR44Oao+PG RvmNcsz2DzTgdjc3eoy9qahLr 9 ItTxLONiizWraKayKEQ7j4VrK a06G46xAOjxSERtCIFoACNoAP CpfSzkgj1gnZ9vJp8+PGNvbCB 3 bQC6rK4gPEFoPnC1BUbaM915Y jWmfTYoXebuu8seb6dmzBy4Fq CpDZAjasWrgSipDZS5o5TyWq1 8 O99bECcvVQVtRCDpLVOiKJGtg Fhigq2iqO0jFr5+QX7qn2qniz 02bB40eDA+YAZeVHP3sGfdBZg w LRPceM8bDCdlRlP6LRDcIwFbu S24bKTxEWcnDw2mxBomxRfjAY 7rARCyjobml432SyOwb6lcFKF w mXElDSnhUHN5H01my3H6QLKlC OFkMSC5bIE7wP3xmThzapxhmQ HrwZpffdAupActSGieZLfgV06 6 IHRvcDsnPlBhdGllbnQgTmFtZ Nv3J0SfOjd8HRFohTsjAQ9wvG RwSKzbTn8ygZqbiMhvKA7xRNY p awmbf364YhGfh4ywYSOjrSZcO JtoWAZ2T17dv9B3JOQcPWOjTJ W7kIU8eA0leCdmrplvtBOwzDv g qkMxgYubVKylCHlnS776VZEar AkoBsJqnzXmYKKehBQ3IX42RF 03xORzc8W9uBZ1G1VoLDDywun t lqmyuHU7DFLqLEZozF49Ch6eo QvqYj1rDWRsCKG8PYNakAYoL9 NhzH7nFeBzUYEdGCVsE2ZhuGJ t PPaxE625HOcxXvY3QSIajpWmL 6QiPDLxbIvzJwP4e3U5Ww8BX0 F4MC18QP28pEFnf9U2wPB7Q7B h CZKdctkeissaoKO8RGOvFETcf D40Zj3kaScvTw0cSNLxICH8BB KkdORwL9AaxZ5uAuSrASItSGZ w D1NqfKEpNFefX187JKuaMzX6N PUszvVlC1XeVTMbcOunSrJ1c9 L6Hb7KOWw3IK24VK34bXSjw6F 5 kZR7B3JhOXQasyfmfppxwKD8K VItIUIyyR50Ke6loTdmGo7hDJ UhWTP0LWUbnYOmW0WaxL1gFeC j POQwBEDrD2WtbZQyQScyH338A GxnSkF0FVFdqlIiI1FoMYWspY cuDtY2j4C8Mh7NFHSaTR41FAX 5 cOU6BR30DJ03Y3LpIiukgEKmi +PHRhYmxlIHdpZHRoPScxMD EnWiVhcPbpBM4eOm4tGPAsTVU v xTixxPPxJlMlo1ouMFZcAIdgP A6vnRkcP8IcbFE3TNRgz5q9Jf 15R03eO3SonGC+HCKhkED9gUY 0 aG9pElZnZsI2VMwkJ282SsKma QRtWbbzk0dsz4pmxDu9RwE3CB CstfTjkFxwIPR9z1RmGb47N18 s IHdpZHRoPSIxNSUiIHZhbGlnb h6rjA3mWy6+VPFavAV8uGJ4iK 2oTgUoEgP8YOivS681CvXbnYS v Dpszb8xjd7foyIt8AzEiBAJcy xEnsYrhJMV0m3TpUq09M5MteI eqo5EfFpn5xa96bQBwk4L7fIG 9 K3AzDNFvkjshgRCwiGfkWF8dN THfexcjBTRnaW0zDMYnE3m8Pm BhDzW0DJigS1IidcG8BBKztME g PFryCTR9F00ue9U9HVExVNXdA ZU4lGV9dA3cdWkthscxeUJcyE zhbgKcyLlfIWrsMMwtM269KVP v rQvoOFVraM4zZUYacPGtqTgrX C8oXYWstwzxSnGUUz7AAxcbCC 1EPLuBWZq4C6DqLpa2ZRYveWc s FY8twAFxBTokTn2mvWoglTlpE W6uTMCcaeskRHMyjR2mOHQprB QfbFwwGN1uQAVgiaiqk575ToM x UPV9AZDhyZXsF5WxbA7xTdPmD FDwNEYkA8XnaNTxIYkkU462NA ntUlG3KQSuxvTbT3CwXCUttRz u LyL3j7E7Zf6vWc5iWH1bMZQ7L B59CT54eOEhs9T6yVH9T1BxEP DtnzijqtagzEE5GDUtNHUajI5 7 gIXjRDnrMw4us4A8e232ZKVaG OTrjZ69Np1hqKyzGHOdcWOUbV 5sdsbvt1jxrxocMzXbLNJgHCm 0 IYb4CAHxnMzyWyXcRRB3OoF6H LN4gFZntK0rsJyxebklaS9bXj c+UkKhTVWturK4H2HzWxv8ZKF z zJgpGY6gwFAhAFedDi2ptPxie OnwYK1bHQHqxsqxQMUxwR2zXL CwtUEtjDblWN2wLCRdeubgl26 0 LePlTLA5BJAhaSBfX4DwdA2gQ xLyJAVoDRHlX2RvxQQnLKkrW7 91YXrrQjH8RQIvbzZvX9IzMDE s kJnsScF5s2R5Uw7DWOhxDR79B G65eXTgc1I4jKX8A4DmAMLgbr qqejhtaDZ0MNQjTYSyzD78eXJ k BNpuIi5nb9X8d970JFDzMKGhu H11Nf2iuVnpCOHjjXOWzE5bbi fzi1ellwblEqIlAZTiAXa8LNu 0 SNGcmUxiGbUtNIA1HcU0HHX6x ECjrO5lwKtqxzlyiF0jXpi+T3 X9wJN0yHLypLiwgSY+YO21jc1 8 C3HlNscmEly1SWRxKBO8eVY6d K3cEGSvMFqge7I1iJU0Y3Qsmw Gvua9ts6ngMKPaVQuvO32xbJL w q7R4GDTxcEH0HQSboBlyKwDjs G93Oyc+GWPknNefj5UpQovea1 ppq0ghaZa6PnGfMBLoumTdqMq u OKN5y2WeSn55B66pYGmpOEZmL ESrSGQfALSxiWylvw2xxG5kWa 8+XNUvgIJ8fKW1rK8sLeAlMoH 2 FRtuH137TaOliLAuTnqsy6cdi 8xjwLu8NzSvVXZowiOpxDgiUO S3e3VrQl03P3JsiYshy4XoUcf 0 tw97sGSdi2D0lAZ0H8XdMETxf nurmLMdsQufYR2dZFEqpgurKO LqsM9pCQJhR4g9BfJlLcK5OYz u D7KholC8LMWftOViRDWesZJIm W2jlgtek5iyfkpjVyDoNCMrRF j6FAx3UJGfxTxvLwUoOGC0FwA 2 WVH9xMYetZ6ppDozhbxemX1bJ yc+VFb9a0tdzNCvSS9szED6OF 44IC62sLZkq5F3eDW6E7WxSME p usxoydkfuOZ5JVJzLGTtvE55M t7mdMgvAk5lXRJmWCV4VCAxzH PsI9SteK7mUyPsAAOsGMCzY5M l kFNeVBwhK956YZafDvM8MZYzl zBbT9DqKIYjwLczFqR5y6K2Zx 7TCQ27RX83ZY75oKSom6E9sJS 9 C1ScZZRhahhdmssjxXZ8JRMuU WJfkV86Pl8iaYmuOz1bLWWkHK F6RRBzyLXiF2AreQ7yDiZgOJX w INPtX7JpgRTwZVdvX390EOztW aV6YGOacqOsV9XrINBijZziHk V9q3T1Mt9LWr72MP26QE47dLG g l3D0yEJ4J6NwAFFgtethmxtms MQ3SYLsHMTjzV35Ey6jvAwkHg 2eAMUzUNE0FLOroSBiZ4UtnL1 y TjWpJNAuJSNtZ4LhbBRqJMjuH 667ENoyOdN6OFBbpwWpL3OjHT DbcSkxOzN7o5X9Kp0XSPysine 8 O8DtYmtgkCM+WJ63QBQlZC48c YJmbYZuq5zyhCb1OmOoLFWrCB R2gYfcSHtmy6MdCZJvQ60rvOZ w c2U6 (more content not included)... [facility] Consent for Procedure/Surger yon 01-22-2023 Consent for Procedure/Surgery [id number]#1.00CD:12 7 [facility] Consent for Treatmenton 01-02 Consent for Treatment [id number]#1.00CD:12 7 [facility] Multi-Wound Charton 01-21-20 Multi-Wound Chart [id number]#1.00CD:1 27 [facility] Nursing Assessment - Woundon 01-21-2023 Nursing Assessment - Wound [id number]#1.00CD:1 27 [facility] Nursing Note - Woundon 01-21 Nursing Note - Wound [id number]#1.00CD:1 27 [facility] Physician Orderon 01-21-2023 Physician Order [id number]#1.00CD:1 27 [facility] Procedure - Woundon 01-21-20 Procedure - Wound [id number]#1.00CD:1 27 [facility] Progress Note - Woundon - Progress Note - Wound [id number]#1.00CD:1 27 [facility] Coding Summary.on 01-15-2023 Coding Summary. CD:[id number]:[id number] Gh0bW w+PGhlYWQ+RB0LCJKwC14aqQL ozE9IU3bPKL8PJIJORQNXDL8V MC9bqAJ6GWzoY0AqqvZl PbvkjEOlTS83WEq3TKS1sUtiD XqtzP4nmYXfB8e2JoUiEA99pY 83EOhgMMVzPpQ6VlXyxxgkeYN y H9frXsGxpUKeSsg+PHRhYmxlI HdpZHRoPScxMDAlJyBzdHlsZT 8tMq1zSGJyBDTchNhycRIbSdG j q4jaCFSmAAyvJF9ebCjeJ2Vqa FP0INAwv7c4Py76pGY+PHRkIH W0nNcjETdvq705BaHuf4fyVJS 3 fKGcQIwtVEI7E50vq2K5JMIsW FYyKCG4iSM3fX3cmIkychqqU3 XduPRyTpP1JLF1fVYaqW9gcKd n cpudsH6hBzo+Q84PPX6FODDCV P5STcq8O4KlYzmzeZD+PC90YW RdXR35eDXzjOHcn2vgbZc2McL w BDHwYFA0sLjiSOklh5LpQQJiL 19zlALjf3A4ZVZqrWaaaMQjVo JxoQA8dJ6iJIejgfqvv0yrnut n Mhbyz8byqz46sP53U83iEKqpS VAiSKF2GHGqNXIplBzted6miK 9wIi8+PKtqm1dqq9pviZi2QtE w KYMwwsFonUswIXT0o7ByEa13M 0EkrGzny0TdLsy7iu62mPSkk5 M4wEL5DYxyFQLtxC7zLFjmBaS 6 TPVhXtYbqP68hBMpNHxkSi9gs UlvvBpxOU5jTTDvnlweCWDguS 7nUYPtqZTzxFiaZK9eDZTyoho m g470UkQoOHI0STXikDQuY0Hxr I9uSzNgMRMaTANaQ4MyxDGmKC dwU024MRywGuE8DDBkddOfS8R s AIXwrIrdFgB1c7R5Si7Bm5Gyx wbpISO0MLanQSJlUxC9TeMaUa Q7B4AeVgk4UGAdbCnuFK4mQ3C h WRSalyyipyamjUU4PPGtNADzd M81cJYyUIzeZz4fd0B9o954LG CaALXypC35Al4dpKbpJNGbzUG U fJ5lkzkyz9accgfkNrSvFBUcF Qs9EOz3KYUdmNajMwTeHLV6Zh J1XEZ9iIOzeH3zwQclbdmeeA2 w Oyc+G95yxO6nRZF4TMU3euudY VIflpKhGF52HV20A9PgBndwzH FibGU+OMQuezJwsRqhQY6tUsV j p8sfz4HpERroD4HjKRWbNTbqJ lw8ROXhZTO3rRG5aH2uUTIzDE czc6V0nET6Y4BrlsTmul2fa2i s WXExNGhvT96sqPKxc6B5CQVez EU7GGBcaPfaCdOfwS90Syg+PG LtqMycw9FpVfiom9zwy1lvrBg 9 SjPoRNKhtiRloSqxCED8r9OmK y41R98vCOgqYKVkGLLmTUNhFL BsnHrnbp0osB3dGz1+PGNvbCB 3 eNW8wK3kDMXeDsZ1EDkmQ582R bHwfPRcFirea3juy9bkuZa1Rn WeMDFkwuMwxIfuGAD8i4UwUq8 8 C43wVUawQLXbNZFqCYZlEWBhl Bbwff5xwN3zCo4+KB5qo5faaj 75nS58eLY+TYMzIUB2bNehLPr w JRVzdB2pQWxxTdB1JCRpLmYln B26uTYaJShpRr2vuNprvKygNH 7uPIVcixpce633OqHim1cyNHM w xSSqQXpsSSN7U68hw6J5JIZqO VJuMRR8gFB4mV3gmRstazehvD YtbByvwdHntRrdEVqiVXhcJ86 6 IHRvcDsnPlBhdGllbnQgTmFtZ Qo5T2BaGqj7HSGuaTjoUF9elK IqHYggPz0vtLtmfOaaWJ5xEEY p ofisk730XkSfm6ecOQEglSEzA IxwNDU1T79oz7V8JCOdNWKsYN D7aDW6mU9onIhopleeaQBgrDu g roZndLanMLfiCMmmS579PJDpf NxeKaGmtlNwVYZviXD3AX06TW 88iUBxk0B8aHG0H5ZuIRDibsk t rpbqoHK2QKSrUZJsgM75Nd1bs HqjXw7aIJGvSQS2TKSxxIDwM6 XrkC4mGaCpOFDbSVKvU1ZffPY t ECamY886JEcyHmK4MLKqmeWaH 5NuUVOokAlcSgB1i2Z4Dk8LH0 V4TZ88MJ74vOZyb0E9qHK8Y1D h MADeonsqijmgoBC6OAAxCJMai S15Ix0gjCikYr4uIOQnKCZ2BR KqzJBcE5MheL3zUgHjMCPfDNQ w R4BoiBPjRGknR118JSwlAmI4H KHxioSmR5UoRAOkzMlnFlF2l4 B1Mt8ROLi9ZZ02KP84eMMcf0U 5 oBT8G6QiZUTdttgejwievAA1P ZYnDPBdbJ20Km9vcJkxPa0lAG QuCHM4JQTszRTuP9UqrI4mHtC j LKDuFAZzF1LwyKVvXYylR677K TlcVrE6HGUkqnTwC9ArPJNnxN jnUnL4i6Y0Ca5DDWRdDM45JMP 5 vHZ6MU72CZ07L3KcBwmplUTft +PHRhYmxlIHdpZHRoPScxMD JdAuVhaVzjFK5pYp3zBHClDSV v vKckoSZbLjIae5waZSCyYQpqI J6jpLabJ3VjkTJ7FSTgr5q3Rg 69D41xA0ZigES+GZWvmBL8zVN 0 pV6cZrKsInJ5YAftM934DhWim LGrAnwse9wle4ynwFh4KdT8DF XbjxTywDerDBY3o2GcZw31T09 s IHdpZHRoPSIxNSUiIHZhbGlnb z9vuB8qKg9+RWPkuFX6cKU6gD 5jTpSbTiD1HYuoL766ErXceJV v Astzq1mjo9gclHi3CyFhXWFvg bIexIztKPK2x9EhHz00U1FynV svu4UjRxw3fy91iDUcp5L1cQE 9 P5NfWBFlzxyrhXGjqEbdFY9nQ BTvlrbgAGPlhZ5fSIDaN6u2Ow VoObF2HSeiU6BcobE6MPNwbQH g GVlqQDV6T46zf1B6GLYjUBEsM CU8gDU9uE7fhNzoglnomIKaoN jcftBoqFbqFUrqIAjdT548OIN v sNuuCLSykK1lUSZxbCFynUbpD I2wPADhfqyvVeTENe0EMbzjIT 6GEOrVATf1P4ItRny5PMYldKp s VC7frZAaSZalUk5ybMaecQozO G3hTOIpmpawRECjzB0sDFKyuP IzcLkvHD8gSWTepnejc135QlU x QWH8LQOuaTWsH0KhtG6lZnBbB HCnFQEwO1JtqADpHMfzD730NS wdEwK2RVQcllLuX1HyMWSljTv u KxS7s9Q2Mi7pSu5sVN1sSCB8Y S88XN18rHOfr5H9fTF6L1KjZF UuykixadrmbRJ1GUTyDFChmK5 7 tBMjCRdwPu4gr8C2q068CHLwM DIbgS00Ks6dqIjjPVOvjBFHgS 7gempiv0koajwhYwUqDWXdURb 0 FXt9TTKhhWxcQdBmILU3TlF2A BX4hMFtaI3ekKytmzvsjP2oNt c+DiVdUXYuasW2G5HyXtz4ISH z uPqsQG2blAEnSZsmKs4tzApnh IoaSL4bNOWjetjoMHMhjW9mIN MkdKJtfHdxAA9zVAEzqfqvp35 0 PqFxDVV3WDRhjUFsX8TykB8bX cYaLERiRFBwQ3RejQBaIBodB8 66OUvkCmL6NEUqicHbT3WgOMH s zQonAnN6w2S5Qw5WWFvkSK99Y F30vNYro0F4xZR9K7GaMHQcti tmuhgylFX8XPWzVCZvmW03wJN k FQfuZr8zz7O9t276RYSmIKUvf U86So5zdWikPGVxvRHQnK1urc rxd7mkuflcYyLlSWSnWTh4UBh 0 SWOjnAfmOzFrVZD2EqO3CNU2x EWgtB7rbBgfmzyewQ9jWgy+T3 F8tAF8dBHxpEmyuXL+YC87af1 8 Y6IeCnqoQfs6CNDgSYQ2qAY5a T7rVBKpZFvyt7G5ySJ3U9Yzqh Iqmi3xp5oxBUSpBCiyA02exTH w b0Q2GHUxiDC0JVHygGqjFiZjq G93Oyc+PCNovWocv9ZuDdzre4 fdd4vzgDb8LyVkHDLqfzIscMt u PSN0y9VhNc09V87gRBriMSEbK ADcBPMkYDSdhQaatp7zyN0mSe 8+ISYsiUZ4hGH4bP3wPcDcQzN 2 SUmbH694XdGuqLZmQqhgi7rnq 2truNk4XtNtIDBizxYxrJwgEC A1u8GkWz72G0FnxGrdj9QvAro 0 xe78hDXbx0B8zEP0M4KlABQuv zpcwYZwuAutUU0rYSRuvyxlJK DrfB3pRLWkB5q6IwVxKxT3GNc u L6KpzmU9GJSnhEMmEGCljWXAo B0pqdlkz3hzypweMlAcOHUdQC i5VPa7BZIjxRemGkJjBGQ7CdR 2 ZPA9iDOchD6rnHstaazbaL4tZ yc+DGe9a8miiLKdLZ7cyQK7HF 48FK57bGNon8C4yNM1Q1JvRSG p efvhosgbfAX2BXZxCWJveZ39V j9lmSahWk8oRTAfASB3AELfbO MuR2VcmN3hFeSbVXMdFAWbN6R l bMOoJZxzG504YBpnYfR7DQSzh nWmB3SqZGDxkVygOiT7i8C9Wj 2WOQ73PP81BM44rGTuo7P0qGI 9 M2TgHYXxrkosxbltkXX9QJDdL UNfhS06Eh0eqEnlDs3aWDBfXN G8TLLapTEuZ8DwmU4zRgXeEWD w HWJwT3RpoMKtEQaoU631VMexM dK0VRCybvOkB9UiFRYzaUvcJv R3c4Y6Yq5UIr50LZ30OG89mOD g i3Z5mQA9V8VgUFNhtnuwncdmd OT4RLLqQMRqlK85Zj1jzXakAs 8pCELeRJE8XMFkfNJnJ4PubS5 y FiBvFPNbFPLzM0JqlONuAHjsX 288FWiaKkK9DKVuczWjY6IoFX ArsLrcBmI9t2G9Pa9SDWuysvb 8 D6LnUuodvVA+LF89QHUkZR55l VBjoKOah2tjvLq4BzYlDKZpPK X1hRfmEEbyp7FnWYXzD47psWM w c2U6 (more content not included)... [facility] Physician Orderon 01-15-2023 Physician Order [id number]#1.00CD:12 7 [facility] Coding Summary.on 01-14-2023 Coding Summary. CD:[id number]:[id number] Gh0bW w+PGhlYWQ+OI6QDUTnK06etSI liT9BA2oVPF4RNALRVTUUDX3Z NU4faOP4MRdeK7AsjzGf QsdtnADoTL92LGk2XIF4xNgxX XpkbY8pvABaE6j4EoLqZG57rJ 14CBkeCPBoViA0JaJivjcmhTY y I5wxXaUmxDMmVoz+PHRhYmxlI HdpZHRoPScxMDAlJyBzdHlsZT 8kJe4xNMHxMLFbpVrstLBvHdF j w9gaFZLiNZasNZ4elIpoR2Gll VX5SGPwm3e3Ke30aUO+PHRkIH X3yOghSZisl786RgMjy6rmQNS 3 qIOrZHrmMCN3X97kr6N3MTUiJ PBeXGN5cYU4wV2cpAhcosykK2 ErcSIdEyY4AVD9sASmsX4uvEh n gqnknY9jPjj+S50HTT3ONCCMH D8ILng5L8JbNbjyrAX+PC90YW MjET29lMKvjLFcx7mjbGi4TuW w OCNfKCO6dCqpNRois4MwKWTwN 59owFBgn6X0MDXiyKxmdEUjEz DtpED6cC2mRBxekptxg1epqml n Eezqa3pjqa63cW45Y46vSCqtF HNnZAT4PWYhOWZogEiwdh5kjG 9wIi8+DYqwj3zhp2ckxIx7GsO w VMDxutOdrLerNEF2v2DrLr81K 8AioUthq0EjVjz7wn97jVWhk3 A3oMV3JOngZCVjtQ4jKBcnUlN 6 FNNsByOdlN76uTOxXZkqAs0xz VezoFgkXN2iREIjzdnuSWFcbI 8tTBCvvSGrrDufXK7dGMJxwwa m l264YoCvKTU0KCMofJRhY0Rti H4pObHoWDJaGHJnT2YahEQuTN vpZ223FZdfNmX9IZDttlCdA1A s BCOpuZxyUcF7v2K5Xb1Dp1Kvg khlAJX6WZkjUPEoPvY8CmNxKw J5Y1NrPdv1OPTrtAjgUC7oI0Z h IRDnmrzfyhjhjER7REXaRRVgq G62fJAlIRyuUl4ca1P1c673CP XoFUVxzU69Jl7duQzfCPNllQG U zX1ippbss4imcaedZuQcKNOvV Qw3VIi3KXLrwBflPvXgARU4Mn V5ZZG2aOCelX2lhIpcbvmemI6 w Oyc+B22alR5bDHN0YRQ2uzzhJ HByfcAcQM25NA14F0VfPqtceN FibGU+XZSjzcGewAfaCB0aHuE j q8hve6IdAYnnW8NiEDGjOOiwU wl1ZLAaWAX1lOZ0uU2bKFGqDC lto7O0dMK5D4SeumKkmp4kk5j s ORRhHXaiI61unRLhy4B4ILOtf DC4ZFSfyApgXnWmaW15Cla+PG FuhLxcx8VmDaevl7twz7nzqLo 9 NeTcQFSvxtOwxFyjUEE8j2ExP j28V45mOTwkRGSiAKVeDWDrZI QgaKhyvp7mlB5rRd1+PGNvbCB 3 lRW8iX0bSRUnPlM0JLxvK455Y aVsaGIpOfrsi0zyu1wjpPf4Yj BxTSQgzsIhrSocMBP3f4PvHp7 8 M04fIRwyJTSmZZWsQXJbCKDor Eeprp9bfZ2mWm5+CU1vx0wdys 81rS73wGK+TDRlPYX3bVgyYMc w NDKimL7qKMbkYkU7NVXxKgNso T39tPVrVRrxCb5yrVoryXytGT 2sAAMexvlhy557RaNxw2efDUY w eOFpYTsgASK3C27eh4J0STUaC OLfDQG4uPU4bX0byTfdvtltbR ZnhTfmmiZznXyoOZguEQmkI30 6 IHRvcDsnPlBhdGllbnQgTmFtZ Sg7D8TwTud1LZRzeMwcAV4slF JvSNpaVb3tqAbyfWddEO9uJXM p uentr013SyVix0hcKZKqcLTrN SbxVFV6W55hz1G1KIWyOPEyQS Z5cTR5yX7stOtytsfjiFSxgZq g fmAvyCwtODmtYToiQ912YIMde MriGrNxgpLsJJLogEI9SU88DB 67tWWrr2U3pMN3G1HwDJJesyw t rmspgFV2JBBoHRMeeX98Pf1um BmrDo8wIYIzGYN3PLLfqNHrN4 UwgN2vBkZkLMMfQQYaL8WvsCC t OQqhR950XLfbOkF1EYSqosIoA 9WjYHMyhIbkZtD0c9O5Lu2HS6 M7PQ62QA58lBUmt6E3mOU0V4W h AJXtimkyyexaoKG6SEYhVKDhn Z64Zj6thAskJq7jEFYoHWW0CA InxRLcK0IzgS2pCxHlTSXxHAH w F4OrvKZxJXgsQ643PDtxSmS9I WQizxFuD5NaLDBhuZsiVhM5h8 S5Va7IYPc5HJ23CW58cZGyl2W 5 cJE5U4FsABCxociopmqviBH8S QYrWSHysW33Xf4nuNhyOt7qUY EvGID4WQYxtRImO1QcbX4gWkN j NVBoVCQzP2XbdEAtRKeqK508T UpaTlY7HZUemwPxR8ImXTTdkZ puAjR1y3D0Bp3KJSExFN84HJN 5 sUN9KA95HX59Q6JfBkjlaFZdl +PHRhYmxlIHdpZHRoPScxMD WjIoXlsZhhLS5vBv2bSWTgJPN v gLphwUDuKqEga1ljCLHmDWuhM F4zhZdmH6RuwNB3ZBXrz9o8Nk 12O07aQ0IpvSU+PZTsaNC9zME 0 iG8hRhLxTcQ7PQloX103IqCij FEdFahrz7xrv7wpgKt0KsH4YE MguzSooRqtLJN5w6GsZp57F87 s IHdpZHRoPSIxNSUiIHZhbGlnb s1guV9tDr5+QFEnyJP0iWE9aO 0eRvQgBsN2HXxqZ953CuTijJF v Srhes4omj5tuxIm4SuYaKCHsa uHhlBplHRV3r7UgKi30A4LjgA usa8AjLrr9yg09aSQbn5O2aAA 9 K1TxVZDbcknxxFDqcDnpZM9wI PKfmfxqRLArcS1gJSLiM1w3Kh YkSpM7XVqcU2LwviG6BJTliQF g AKyqQOM9E48ps5J7PDIqQCXlB RF5mVG0bT5awHpnuuyxkZDzeQ nmlaOttTikPBpzMGsbE766TIP v qSqkIDSkxF4jAVGlgRJsaQhiR G2hMGEfwawoJlOMQc6TWsukSR 9GDRxZOGf9Y5FqAxi6XVGyzSa s EV2awOEvYNenYb7bcBdloKnvD V4pNRCzebusAUMvkB3mAKMcfZ IhkShaXW1vQXNufwtif332PaI x GPK0VTKhrDXlA2JhgL9bLqBzF NNbHSQvR4NopXPkCKbhO865KY luHbX2VSSiroMwD0NrIQJgkQy u SmF7m8H7Bw5tEp0kDW0fDQS5C V18NR52oHWhk0V9sED4B0LmGI ZeofwkovulmTK1TSGgYHNpaJ4 7 kATwXYncXg3yq3B0e576JEReO LEatR45Ul9ezWjuJBRirPMXgU 4uipyek0qwljvcLdHvTJYwZYb 0 WJp7LCMniTosCmSrXAB9XpO9P LN8wBAuoI4hdEqpwnxnoY6qFq c+HsKkBREajaZ7E2GaZid1WFI z dQpgXZ3ujGKdPTmqKp1gfQyuf VrtWN2vDNCikrthHBNhtO6fWT UerQGqaXyvMJ0sPCEvfkvnf55 0 FcEsWXG6AYOckCBnG2JheX9xT eZhGZQwRLVdY1XdqTMjUPbsV8 63RAwlNnD4ZNNheiSzT8NfMDC s sNfeCjG3c0K0Ta5YYPnxAD40Q A83vWKop3T0ePL2B5QhDRZliz ylxenjqHW2WNEqEJPnxI06sIC k HAwjJx4yz2R5a030NMOrLEZvp V94Qr4vyOpmDPNkgJUDiW7uow dog6kwqpudYrHeVGNmRQk8CMy 0 QBGcmCfoFaNsEHZ0UdM2LGJ1g NQasQ3ntAygdaaruE4gRib+T3 R0xAA9pZDfuDuupQL+JM33tf3 8 A8LrRnxuJfr2PPIpCHO9qPS1z Q1fNRIfDEozr5S6sEP0K0Yrgd Ncxj5lj0lcJJWfMNibP92mrKA w q6M7OFNppNE7ORDvuWyxIxOja G93Oyc+LSFtzQpgr9HeAknqs8 wsl3hnuBo3NnHwPEAkalVbeQv u NHY6e5XkNu44S46wZSurNUIdY AHzOSBnANQxeSmhdc4zqW3uVn 8+FUCbxDJ9zYR0mP2oYyJqYjQ 2 ZDyvM633UrEhlPAwUmlwz4olq 7xakRu6EsJsEOKtnxTzqLwfMX T1f1YtZt69A5WwvHfcx7ZgWyu 0 tq81fUXmh5B4fEX7O1CdQPVxh dwspBYojOoiUF1oVPMcxxcdRG YlhV4uKHObN8k4LlBbCbS0COu u F9GypiN0WHKluVHzJPZhiHSMs G8ilbfkw4awmifdXzDaHBStXD u6JHa0BECfrAgbDtJtWRL2UrK 2 QRR4mHXlhP9icNhtmzxucI3wD yc+RHx2l0qkhVKyTG6wtOV3VE 81PC94pIDvr7M9dPY6X3RzTFF p gllgdbvjgWM6WZPrNABrpS14R z2cxYaiVv7nRRIcXIL0PUBmeT YcD6SpcQ9zKrAbTQLwOBRiA5W l oZSrCZycM648MKjjUhK0PGRtg gEwC0HtKPRosFxiHfS9g3H3Dm 6RHH06NJ30KU41dHMnl1E9zMF 9 O9PkPWSkbqjqxuygcFR3VVGfE OJmgE92Ve1mjMmlQj9hRVSiBI X6QKWmiAQmL3PfiG7iVyQoIIR w URAsE1WnjKImONffI833VFsfH mN0BAAoveOhB4LwOUIdmSowDf S8i2D5Gp0VPc99XN71FQ74nFW g i6U6mNI1Q4BsSNJzvppqiailo LA2ITWiANEauO01Kv6fpXeeBn 2xQTAmARP3IINzuLWxD1KqaI4 y EbNjIPGmOUEqL6FvlXOzTXabX 461XHtiVjE4JRCsdtMkQ3UwIH RwaUdaKsF1g1X9Ru9GLTpbrrq 8 J0KpVxhzmWU+WL19TTHbLQ43r DYawVRze7rfbYg5GwGuNJDqKI I5nHpyFQdop0LvYCWuX06sgRR w c2U6 (more content not included)... [facility] Consent for Treatmenton 01-01 Consent for Treatment [id number]#1.00CD:12 7 [facility] Multi-Wound Charton 01-14-20 Multi-Wound Chart [id number]#1.00CD:1 27 [facility] Nursing Assessment - Woundon 01-14-2023 Nursing Assessment - Wound [id number]#1.00CD:1 27 [facility] Nursing Note - Woundon 01-14 Nursing Note - Wound [id number]#1.00CD:1 27 [facility] Physician Orderon 01-14-2023 Physician Order [id number]#1.00CD:1 27 [facility] Procedure - Woundon 01-14-20 Procedure - Wound [id number]#1.00CD:1 27 [facility] Progress Note - Woundon 01-01 Progress Note - Wound [id number]#1.00CD:1 27 [facility] Nursing Assessment - Woundon 01-09-2023 Nursing Assessment - Wound [id number]#1.00CD:1 27 [facility] Nursing Note - Woundon 01-09 Nursing Note - Wound [id number]#1.00CD:1 27 [facility] Consent for Procedure/Surger yon 01-08-2023 Consent for Procedure/Surgery [id number]#1.00CD:127 [facility] Consent for Treatmenton Consent for Treatment [id number]#1.00CD:12 7 [facility] Multi-Wound Charton 01-07-20 Multi-Wound Chart [id number]#1.00CD:1 27 [facility] Physician Orderon 01-07-2023 Physician Order [id number]#1.00CD:1 27 [facility] Physician Order [id number]#1.00CD:1 27 [facility] Procedure - Woundon 01-07-20 Procedure - Wound [id number]#1.00CD:1 27 [facility] Procedure - Wound [id number]#1.00CD:1 27 [facility] Progress Note - Woundon Progress Note - Wound [id number]#2.00CD:1 27 [facility] Coding Summary.on 01-01-2023 Coding Summary. CD:[id number]:[id number] Gh0bW w+PGhlYWQ+HE3UPKJdS70xlLX gfR9LA8vJMO8WUJVFKFACMG1L SB5ruVV2SPkhV3TjdmTo VfowtVXzKL91BWb3SOF7fOdzI MuvoX5ihNFeE6m8WjLzQW63eY 96RQjpNDPzOcA3AnNpavbwbFF y U3doIpZunRTkOhv+PHRhYmxlI HdpZHRoPScxMDAlJyBzdHlsZT 8pPu3kUGRhOIZukIfunADdXkY j v8jfHKIzVWpmFL8vhSgoH6Mwx KX0RQEak6s1Vn69bZL+PHRkIH Q7wAizFMmds909TtYiu3vmVAE 3 gEJoEHxlNUT1G53ka2P8SGFwO DRgLXJ6aBR8uL8scGelykjkF0 QrrPPqQvE2UMQ1rUGidE6adUr n fskneQ2pJin+H17OQB8PMBVEQ M3VMxb5Y7AzRudxjPL+PC90YW IuDZ39eAUfjEJbr0merKp5RdL w BFZvVZP4jAklOKbul4RsBUGdW 11zhNYux3J3TTVjbKbkePMoNb DxdAW4tB5rTKhydjfsx3zeuvl n Zovye0nkte18lJ89B73bUKhuW TYoAJT5ATMeKTRyzAzban1rdT 9wIi8+TWpos8ctg2idpXb4SvK w UJVqmvBnmBctSYF0r4SkLo04I 7YwfHrtn2XiQda5br56bCYkh5 F4bOD5WHvdNMDgnM0wURhrRfC 6 WJNgKqXcbW03jHBkNVkdOy3dk FuglMaqBJ0gKMBjoazpLMRxiG 5wXSAxiDMbnUoySS0fQPTqwnf m j090JnPcJEE7YHGlvQJeZ6Wgz E3cYqVqIBOiRFFtO6HlcUNbLF elV682INztFnB0ADSksnFjP2Y s NJAugCtqEmE2g4K8Fe2At6Eog pzcDGA4RJbjMTNmKtRgYrNwOw S2O6VoFfe2SHUtkSrcWX5yM4H h RPCnmjklbrvyjVE3CQDeVZRbh F95kMLcGTdxTu4ec1I7s382UJ YtSEVupG00Ql6uuQewRUMwzNA U vH7outdrv4pwirojLhHdFKHpW Wi6BEd5CXHqqLncFkJqQUX2Qo Y9JPF0oQYrpD4pyLpomkzyxB5 w Oyc+M54umP5kGJA6ZFH4nhgiJ ZBcfkJhPN44VK58E9JlRqelqX FibGU+CKXdimDzfFbrFW2pFlR j w5dwz7AmVRbjH3HsAHDzTEghP ld6XAZrIMU9oRQ3yU9oXLMcLP spl3H7kCG2W5LikvMlbv7mw1q s UMWzEHgtI95heJUhs3N3YXUye IF0GQCabInuVvGvxM23Nst+PG ZppPkmi2OfPqdvd3niu5lbxCd 9 SdRuRBZeqyOddZgoMSE9c6IjE z68Q30yYCsgKLAuYDRdDXWkPI AbiNwarp5qzY8lCn2+PGNvbCB 3 oSR9gU2iTLJeCyO3GEgjD206Q jOavBKxAbbjf1pfh2mxfXf4Ql MqZCAghcHniReuKKY5f5ZyNw9 8 A42xNDrnNCWrNOPvHEJmHGLdj Ztvox0mfZ1bNz3+HS6kk0sjnt 92sO73dSK+EHAnDWX8iHzrJUp w TIPcxQ7vDRzhVjJ3CBPgPiVds Q22uAKaPYvdSy5xjZbqmHrkTH 6qGUBoyxqik015VmBmx8juPPV w fCVpWNqzLCI6O79ho1W0DKCwW LYsFRU4zAE9aL2seJowmxccaW TjlRtnntXkvDaaCXruTRhdA21 6 IHRvcDsnPlBhdGllbnQgTmFtZ Tn2G0KeMel7MJEvsOuyXL3ylH BnXGwhCd3lnFwnlGltWI7zRUU p lkapq265LwKci4qyRFIeyOVfB IghWSP2I08tm8W2ZVBvIUQyEF Y2mAQ0kC3uwYvcrohqvWMbxTf g iiRglQezUVeoBUuzU115HBSkl WanZcLfjfFmEGGrpAA8PJ39NC 58bZHyd0V1eJX3N1EtYJLxqmy t ihzmgPD6LGQwZIDcdI66Ds4ab BkaJg3tHIZpEOY2IVIapGRdL2 JtyF9eVyXsHKZbUZNbL0QmwXD t CIwqQ292WInkCsE3JWJsjeMrE 8QgFVBwlMvgZvO4g6V5Hn6IS4 X9MO87QJ48rWJao5G9iZS0O7R h RZVkvoyaxvaqaOM4ZGRtUWDmu R83Lm5pbIbhGl8aXWJtEFA2XS IbiYMpK5JcsE4eDeXcGMOrQVW w L0UjvMTyPQneI735CVepFvW2J QXuxoTsN5CzOEPhxBirXtV4r6 N5Go2YNHt9GR35BN72wFElb2M 5 xFQ5O1FuHZYazzwbodlgePA8Q VGeDFCqoI66Rf3zcJnqGe1iMX QxVLK9DDSsuCHjA6NfjL4oFiL j ANQmDTVjH6AchNNlWFyaB149Y LdxTeK5EDKgdnCiG2OnUZJbtX iyCoX9n3A1Ju8JRGRdQU89RVO 5 qWF5RL95ZZ62A2OoQozipNQym +PHRhYmxlIHdpZHRoPScxMD PjPoUwfZfaDU7gJr5wILOjFDZ v gCtqvNTgTrTlf1ewHPSpCLqwY G1npHpoC4SdqSI2ECYzd8n1Zf 29B71kL0AdrUS+WAYzgCA2qLX 0 eX0zQbGwDxJ1KMjzS085ZbCdb ZVqKgswm5sym4uyeZj1JvV7JL KsfjGzeIxtZDC7w0SkHd33S93 s IHdpZHRoPSIxNSUiIHZhbGlnb r8krF0xWu1+EWDmdWX8dUC2nY 3gEaEfZsW5SFpuI818PeDenAZ v Gctmw9joc8ehsHm1QrBdMJCyp wGhiDeuSQF6z6FnMs19U7CgcG czn0FpNwt7mf54kWLlh0L8fUO 9 Z7ZqGPNgenawmZBhaBbgMI5oW IHgosnlOUWcvH4aTYAiD1z9Mv HfOoW7PPnhH3PcwnQ9DIJguMM g GTdnLEQ1Z62vh1A6QHTqGGQrI XA6zPB7uW4bnKenpalszAOqdY psmaRveTubMRfiYAcgE374REL v uUzkAGLceZ9yNUKkdIXukMzyF B1aWDBoelhtReLOSg0RJsngRK 7VBUpCHAx3H9JmDji7VYGbzUl s WT3jfHOhIQpyNj7tzUcjmEfwV Q0tESJzqbogUGTfoB1kPUSnbH IwoPupMB5pGMDxnrupv379GqW x FTK5HELptLQmN5YdfJ3kLoGmD OZdYVEuX6NbuZYoLSmzG309DR keEhH0UXBqqcRnK7KkEOUpiPu u InT1t4Q1Xu3aVj0uGY9aMJG0T D13BY22xBXli7I3wPT3B0WmYJ AmvshhuxkgxGL5PJSwBTDjpL5 7 lDApZXkwVf3wd8Q1k830WSDlC QNmmP13Db1knLokYJMenXSTfM 8zezvej6ygsoytQuXjSFIpNVe 0 POe9ZDDwwSdiAsZkZUW7DyU1K TM8fJSbjR7ayXkqksqqdW1hVa c+RqLcPLMsndW4L0YbRev0ZIX z iSgyQS9wyCKzDLxqXx2ijFror EzgKD7cOVWlufvrLRKewN4yTH JliXOraCbuFF7jYGAtenfil53 0 NtNoGQZ9KMFmdUGdH2SpiB9zC gUaXLDfQNNvN4EfbRKjSEuqE4 14THaiDfK7EMYfjyKzT2EgNTW s iKwwKwB4q1Q6Qu3ICQpzON19P Y47yMRhi7Q4fFT7F3KuHXTuxl mjbpivgQR7XTVlOZVveT75gBJ k SHqfHi3ix7A0n419HDSwDUNvx H82Fu0yhVjpIFKwkIQXpQ4svn wnm1erhrorBiZwIKKeXJe5KJn 0 HKYqjDulPsEjYMJ9AjR6KMH1x MWtjA8wbZwjmkehxL7dTgo+T3 E4gFX9aZBqeUcnkRQ+RI00eq7 8 L8BgCowfFfw2YQOaQKK3eLK3b F7wHHBkUDvig7B8rCS9C4Dgau Lzze1iq8mmAMZnVIwoD42jvQM w i2C6AVWxlVQ0DTUpuMluElKex G93Oyc+BAIroDkon8NfXmeng3 paj0lnhDd5JnXwROPgbrOhuHh u YSS4y2SaUo12I70rIIxeKDAxA RWmVRXbVIAuwWoctv8rbT0oIs 8+SPFizEB1lEM9bQ5lEqBiTzZ 2 HHmmY899FnYutEYwSbmic6zub 4jxhZo6NeFnRCVlusSdgSwvME Q1l2NtJj56N9HqvSwbw2DtPie 0 su72oADkc6F6nVD4Y5GiPVVzn hnwrRQgtVwjTP3vTGMjufimOX FvkS4vBOQkV9m0CoXkHvE7SKd u N8EtdbG9QYIvsRKjOQPncKORt S9toclvu5pdpqxhRcWqRWRbRF x1CEr7ZRJypQvcItLaPHS7NjL 2 KKX1tIYrnX1feVxgxqlnqW9uK yc+QOw1w5vbeMToGV6kwAF0IX 13TX01eTXor7A0iAM8Q8UnYVM p vhzcpscwzIQ2XLGbJOQgiZ56X z1tnHacKh4sTVIeAVJ2KIQlcG JqH1WyxX9tXwJaFHAgHURmS3K l zYOsNQdeJ317VUawUjW8VCFer jWwU2TtTQIuoWswMeK2f7I9Kc 1OZI66VQ95VE37tFUrj4G0vHI 9 Y7DeFKFhsoqiadtsaCY3DNHdN HOjxI24Bz1huLyqAq6nLKEhBX J2LXLqnSRgZ1PfjK7zQeVsXXH w RAPbR8RwhNBqSIajK959BRhoS kX8ZTDtjaFxV2EmNJTvaButAm D4s3R0Mr2IDj09TR70AK42sCM g i8D6wXP0T1IwOAPbtdrmygasn IS4VHMpWOCpvC26Il3gjHdpZo 9oESJpIIX2NTNalRWrS3ZzuA3 y KrHqFZDhENXrM7QdtOAoKXnbZ 648KTmxJeO0CCAzxaLnL2YkGW NtvYnuSgK8l8E0Bd3XUOpjtco 8 D9LsIhkdvWU+XC61VWQqSR57t UCgbRKkh8qbqXn1HpIgQTQbSM Y7bPamGVhvm1YmYDCqA63woCE w c2U6 (more content not included)... [facility] Consent for Treatmenton 12-03 Consent for Treatment [id number]#1.00CD:12 7 [facility] Multi-Wound Charton 01-31-20 23 Multi-Wound Chart [id number]#1.00CD:1 27 [facility] Nursing Note - Woundon 12-31 Nursing Note - Wound [id number]#1.00CD:1 27 [facility] Coding Summary.on 12-30-2022 Coding Summary. CD:[id number] Gh0bW w+PGhlYWQ+BU2XOAEjM95lbBB ugM9ID0cIFS3KMNXSFAWJHS9B ST3vlYI8JEgxQ6XslsIo DyxrbYMbGG73WQb3BEM2eFxfB EfwdQ7pmSWlY9c7CbLqBV23xS 88YRuvJMSuZiH7ZmMmfrhvxQH y S2skJbQteJMaIjc+PHRhYmxlI HdpZHRoPScxMDAlJyBzdHlsZT 3mLr3kUWNpLVIcqJyaoYMxKhQ j r1jjXFXoELrlKX5mwGvuH2Vlu UQ3MBLut5w0Ks17aYE+PHRkIH W4zDsxSAsko485ZzHhz2blPBT 3 sZSwCCnnTXF3I89ou3P4CFAeU BKeILB5iFU3jD2iuEtpdvtnE6 YojYVlAyG3YDD3jOBokJ9vyQm n loizaC3iPnw+J68ROM5OGCDCP K1UKoe7X5QsXityaOP+PC90YW AoNF99yFNbqVVdx5hawBt5MqW w POKzQLC3kArmKCfsz5GuVCLbI 14sgEZjx2O8KOQwqNarxSAiCf CplKD0zI9hGYkznervg2heohj n Psmmq4eiur35aK36V29eJQmwA ICkVPT5JREuIWWcyMozia5mvE 9wIi8+PUulm5okl0vlaGs1GaI w HBJwasOdlJtdQKG8w3IqGe55H 7GhaZmrt7TeHbz4bf65tWErt0 I6mFI2CIcwMJGxoA2fKVenSnD 6 FHChQaTyiC27tDWxXMbeVi9ms TequJjrRY4rFUUviqszRGPwjF 6bHFKbuVKnnJwaQV4uOSAyuaz m r243WqVkIOE8IEGepJBjV7Xpx Q2pSkIrNAQvIIPkL4KnlNImXU gyT398PAjeVhJ5YOWfghJlQ5Y s ZZSwxKoiDjD7n8A0Ox1Vk1Era zsbRWV9KRqgKXNpGxTbYsOjSh W2H1OfSsp3BXPeoVzsRH4wT9Z h PCYoxvlyqmzwmTD0TMHdTKAho J92nIQcQTyvJp9sk2B7o513OO LvXWXowP78Gm8ubInkTUTvwIT U vH9ileaje9lvmhvsCiSyDJJdK Yj2WXh2UMXmdTxxAyKyXES5Bu R2CBZ6xWMuiE4wyUezxeaioQ0 w Oyc+V87vdE5yPOK3IIB2lupqT WClwxVhMN80HV29J7VpXfjtvM FibGU+UCBzrbBmoSprTX4nYtB j h5css7RoUUwjT8DeWRVnNDuoD ds8LUWpYQC8dSJ8nL4qWWWvIB smy7R5wRN0W1QoriTlqv5ym1g s SHRvOYxtS54lrZBvm1F6SEGaf FI7QCGisExtCwDwhN33New+PG OmaBbzz2YxPhdrn4veo1lazJj 9 UcHcVGQdcfWbfYdtBYC3c6SkP w50L10zQFcyLKYcRVWzRLGgVB JriNvxdr3xlV2eOp8+PGNvbCB 3 zNS9hW7zYAKyQcR4TJxxR301O lPmkYQdDzmja6ulx9sanXq7Px EtENAitvLqsMwcHVJ1g5EnPo8 8 K15fAWibOMFuFILkVLAeKPOea Fgjln7wxN2hVg1+WV3rm4opei 42aQ42xJL+GDEyTZY9lJfwBAv w KUXeiA7pTSdbUqA8ZKRoOqUaq R75qKBvCUbjZu9saTmdlZetCR 1yYPMolyjpa483DoIyj2afTRS w tMXpZGhkYUK4K16he5W5WMNvM TKiRIA5nDA3jW8vnJmsgyotxI PobBqwjeWeeFogNQdvYHnvL61 6 IHRvcDsnPlBhdGllbnQgTmFtZ Mj7Y1FxGlu9BLLqlPnoMD4zmU VbMWruRx7qdQuaqLpmOO8oNFG p dvkri118LbDts0xvULFwbHTvX DcjQPE0E86mj8V3YNDaOYTrTU U6dAT9iV6sbIvbeyefhTXfhIn g loFzlNhrQJfrBGfkY813XHCia XnoBxVbkxBlBJMntLZ7CP06XI 24uCVty6J8nQG1I2XyJKUwvgp t cjtzsUC0APGeOVPmdD46Xt8ne JxrYx8dGWQnRSB4KZIrdQGwU5 WgpN1pBmTuZIEoRUZiL7GhmXV t EBjeT033NPsrYsJ6PNCbrqZgU 2MtRUIuvEttYiU6u3P1Fg3FQ0 A9XN60RY88tXAuu4T1xFP6Q9J h TGOerxfalbxpvFQ1QWDjXYDaf T84Jn4qtGbeYh0lWKUjGRU7GF SyzKZpF6HglC9bZxLvKAIuKXZ w V4FqiHZgAOywI103LWwzCyX1M VAeiiRsO6IqZQGjtLsnSiF7z8 U5Ow9VLMv1QM03MY30bFYlj1G 5 gEJ6B9NbTQUspavieptycEE2M DSyERYkjF14Wj8xqSwvBv4gFD QfXPZ1KVPiiFQcW8OfcP7iKiC j CWUgTBVfH0CtoRKkWDhlY083H LsaIbR5SDEjwiNbU3KlDVFqaK rfScN2j9G1Vq5JFTQtBI17THQ 5 eFU4YT89RP65X0OjWuxgxNRov +PHRhYmxlIHdpZHRoPScxMD MpMbEmeGnjRV9oPr4gANGqTVS v kRtgmXNnEgXcg2dgCNWsJBipZ F5rvGgaN7VzxSP2XYFko3b5Pe 86T07wJ8HyaYL+QOVvxBU4fDP 0 cJ8wTaDdLvR1BRgpA972ZnPci FPeNolsb1vhd9wjyNc0PlQ7FY BjakNeuXnaNNC7o7OpXb82P70 s IHdpZHRoPSIxNSUiIHZhbGlnb u1guQ7yYp8+SWEasXE7sVI5gK 5xCcJpHwY4SQitR694EtTusXZ v Lvmck7bua3oyuFt1PkJuVAGgn kNmdJniNZJ3s3GpAy97P2NsuH ixn8LkWzg5qk81mOXlc9E5hNK 9 C8JtOZBhtnfugIDkiOhyCH3oP NKajnctSZWjdA9cQHUhK1e5Sm HqSbC0ZZhhO4MwluV2JMXcdHD g TOuuSWV0N47lt3B9NHDpXPGzS TH7zII0jE8nvLscfnryuYQpxN ypwpPtwLaeSLngAAbgX082SIX v dRydGLQvaK4fJEQimWOapSarE R2eMYGbridwQzWPRi7IFumcDA 8PIGzNOBu1P0LaDhj9DUPtaBw s SZ7jxKOeYUsoAa9qbIfjlFobS A9aCYByfpviBBUngC2cYBYloI SrbBaaWF5cTMGafgiuo258QvL x DJM5OEHdqUUnT7OdsP8nRnTlT RVlZNPyB2PxbYZeGTyuM519JH ltLrJ0RSAidtWkK7SyETOmlNo u OcT6m4G4Vn3nNp2xPV8iOJZ0L V33FM15gLBbk6L2aYN3D5WlEH JqtovvxjnzoNB7KMHePHSmjR6 7 fBKgSKotZv4qp6I5h906MEChR BVgbC37Td7egJirAOTiySOIcE 4cnwqml3nzzprhGlBcPJGhWHh 0 EIo5PXRkqSdiDyIyWIY8ImS1G AJ7eZPrpW2zyXleccvnjE5nHe c+AhAxQJYesmK3K8WuUns8GWT z vJuiFC2lyIMzFImdEw7kxSjqe UtnPN0fSKVssqosFXVjpS8yWN WlaYIvzFplFJ5eAMCnrtvtm86 0 TvVrALH4NEOwbFVxZ1BnkS9rH lRiATBrYAPkF7BksYKiWBtwQ1 68MBkwTgD3TEFeouTzO9TfSWE s pEhwElX0i3G8Hn3JCXktNM28P S03jHSlk5N7dHI2X8ZnDUCclb hlncstxTW9QIEiOXFtwL48wPQ k NVkaVd3dw1E1c576NVPgUBSra Y15Hc8sjYlfJZNusNZNtB4amu mvd6tggfxsGlSqSAUeQZq8YOy 0 TLWxrUrqDoGpQBC3CqG0KGJ7k ACbkG3qoDsmwbijjA6sEjq+T3 L0zPB9wCEruIuwnZF+IM92bg7 8 W7KuGyfpAqa6JBJaKVN4lMN5j X7hAAYcZPmop7I4rOK4Z0Jrrr Ajhx5mx2yfCNAiWElyE38gkSH w g7I9DATzaDR2ZBRnnFgiYwVyk G93Oyc+QIPgrWsrd3UjCogud1 tif1jdnHy5HoIjVHTxrqAnwYz u YAK4c9OnSv72A44yFXllGEXjX RXlTQAkUQZzkVmqkl4scT8qDg 8+KQDgfNJ0xJJ0oJ2iDoAvMnN 2 YPsiT626ImBheNFvAkbyc6wqr 5zxiEa7MtFeIJAqypFbjFuxFZ X2n0LsOo65M2NczDols1VfFal 0 pe80dVGfu2Q2cJM4U9CuRGZsd wgrvBNzgOofDW0hGEDexpdoSV XamR0xKDOpB5c7GzZuAtJ8VBd u P7XcqqD5ZIWrdUQkPPBxaXQGz F7jmsvgw9ohmqqgDhLqIWSwWG s7HDk8CVFwxLqvUsEiLES4LvM 2 NEU2dTVcgN2qpInmvzrddP7fU yc+AIe7h9sanQNhMT6tbRN7VT 19RU52pUEcx8K9gCA9Z3KqICU p ughmeughuQL9RDHhDBKsfE16Z v1pgPtwEz7aVZKwFXT1ROSzjQ ZiG3YwlX2sVpThTTFeDQYzX0M l bTDdMKgoM021MAbyDpM5ZNWlm sPyO6WeZDGrnWdsQiZ8r8Q3Yc 3XHH92QL05RB67xRXpp2Z9fXX 9 H1BuWUKgyqqivqyobPE9ADDwV WXdiS13Ih9isGynGn9mNEQhXE D0ZLBbdRQmQ8JgjU0gPcAoGPP w VGTzN3OkoPYlESpaG789RPjhZ rG7LDFpqzYiV8VdGJVbrLtlWc C5a0S3Se8UPo43FQ09WQ69bUT g g7W0tQD0Y8LtTHQuyowizfanh BW3DUKdPWDguS17Kg4fpZmvUg 1yEPKnKUD3ZWFnmHDlJ8QhkX0 y PrFqSKKwFUMxU6GrfWBcHSieS 305SNblDaX0EVPrxrVvA6CyNJ OdgXfhJvY8v8D1Vg2VSHtojjg 8 J1BfOqichZN+EW00NAMwOP85t TPdqEDdm6jpfMz4VtIlJYCpUD U3cQbrBYwfm4ElFJDpV50kgAD w c2U6 (more content not included)... Normal [facility] Coding Summary. CD:[id number] Gh0bW w+PGhlYWQ+MI1GODGoM41kqKP ixY6VB9jTCQ2OMAUTQJYFNP0V XE1lpSV1DLpwU3SfuwFy NadzoQZuPB79ILw4XBW5oJvhG TtyqA6plZXuT1c9EyCeFN80zI 63KVttXMQzPkP5AyXpbcstaEP y W6rfXxWxtCVeWot+PHRhYmxlI HdpZHRoPScxMDAlJyBzdHlsZT 5hXr6vSRAeHANtwYkdzZBqMdX j h1dcZJZgRRuuXH6zjIyqP4Nbo DL0APDyb8s6Er72uVW+PHRkIH O5oFqrHKuod996TmGtw8fyIUW 3 aYRjRDgtBQW9N75kf7O6DVNrI IJwOGG2qFS7sH7eiQfuxiteF7 GjmOZkKiF0CMX7iMEpnF5khCy n fefrhQ2aOld+Q35JPW7KUCLVK Z8UEcg3H0YbLuepcNE+PC90YW ZdZG89iSZboWYhw0uqrSd0XlD w GHFsHSP1kAjwSNlik6TgJRCqE 95jxWMxv2L8DTOdrXthhCYtVi WeiFK9tP8dKFzrxujnn7ecwbv n Awrao6tkcs64dH73J48zAJuaL IUwWDA8QEDsDSKsxFwfzn8woD 9wIi8+OEasb0pbj6ttdMw7UaQ w LROmgyOtxSxbTKX4g1QiKh50Q 5UsfTtva7JqYhm5cj41qCAgs9 Y1yDH9GSvlFLOhhU7gGJpoQwK 6 MQOmUqCqeS10eIPiVBenBy5oa WmkoWojWP5lDYVxtubmCQAbuY 5wODJnhJQfcLbdKX1vUCEcpik m u932HmMwNNM7OIOczVDqU0Ixr O6fZwRnAKGjJVGaA8WugJOoKA gyM109EThaOyT3RNHgluLfW1N s QTZljHubVhK1k0Z0Ae3Xm9Bcz ohvZNY5JWkaEWCwPyBoHdFgUn Q8L8HhEgl6DKSgjXqaFC9eL5Q h YDAjcmhkevvbpRR9BXDoYYOkn Q66cTQnFFznBl5gr0K7r257TF LpUSFxyI35Bz2oiDuqZGLivUN U wK8derqwn8rmozkvWwZiDCVhN Xy0KYh4MVNbnIxtHbTtBWX0Oo J6CRQ8gXVkuN9lfPpjaqyoeS3 w Oyc+N55sqX5bXFI2WTD9jxkeQ EPzgiDhJH65SY44P3SyAvsptI FibGU+JFBytvStoJvwFA4uZdY j h6tlk5HvWPauK2ZsAWUaUAqcA or6LJBwFWZ6gLK6mA0nZUJzLH pra5H6nNO2S9ObjbNxhq8bv6a s WAXaHYipA24syGYgr2V4RQJqe GV3XDPziRcjEmSsiE64Xal+PG LmqWvax9MpLzxwg7ost6ezcJm 9 GsIyGSUxbtRyaZnlCWB2n7PhK d06C40kLPytCGGcOXLlDOAlKM AcxSvton7lrB8sDq8+PGNvbCB 3 zNA7eR9vRUZnWfU1VSeoM317F mFxuGAhXgyeo5gir4qnzWm7Lx AiJTQlugBghDjxBAP3b5JfCy0 8 S34dOAxuWIXpXVPdNFEdQVAgl Kezye9toJ9sMt2+MU2bb4fxly 18lZ57rHS+LULqPRL3cAopDZd w BZQjwI1sQHqpAoI7WJXfZsSjs J65tJBiLPgeMz2thDlfpYuyGA 2xQMUsydvqd576XyFac1ctIWR w xELlTKwfVCP2F77vx8P9XHOvK XNcDNQ4jYE2aE4xcFzaxznivC FzrDsmioAxeNvqTIdgREdsH02 6 IHRvcDsnPlBhdGllbnQgTmFtZ Or0Z7ArOsm8VGXbsUsrGN4rvD CiPAzfKs0ybQxgcOslZR1sRCS p gtfoo886RjIuy2evJBTnaUHpN KfcERW0S62rs2K1JRViDQVxXH U2gAN7fJ0otMvwnidxiKIjkOh g ahOfuHmwVCylSBlmX862YZQwh QgsLwRveoPeUQNemNL6AU29OQ 10gRQic3M5oTF1X4ByGOCplin t nsnqcMS6DQAjDHXioJ96Kk9ky AlcGa7rPFRmMVO8RRFupFZoG3 SwgN5hHqZjPWZsVAXjD3YhcPQ t ZNkvI876DCbnSyF8EBLhobQwO 9QuRXGdcLsoKmP2f0W4Od7YY4 E0DK61AF66pFWob2C8gUD0D6A h UVCgfefthpztmKT3DRFtSMMnb Z24Su1reRfmFs7kYDEvMUF0MY IqnOKeC4EsoA4rVgIlLZNfWXL w B4QndMQiVFvmR827QBwuCsI8T DTyydMhH3HuSHBewVraDsA8n4 U8Nf3WFKn3KL62KP33wIVpg4U 5 uQE1Z1WqVRRlsecwssizoBZ9B QGiZLNtdW52Dy4vtKcsLe0aIV KkCBB2MKEziDDzS1KhoH5rGxZ j YORbHSGnD2HhmHTtKQghI942L MzcAdF7NIImbqLmB9PxKMSumF ynKoA2z3B1Ee8WULZnHM69ONV 5 mLC7WH81AP42Z3MkYbdalJCup +PHRhYmxlIHdpZHRoPScxMD HgEbQuzRtyTR3oTm8eYONsILR v aUpxkGJhSkUkv3elJJOgRRshT C6fwLvbJ9GklFH2LQCvu2t2Lw 45O36bO4OipQK+LKVrhXD7tSI 0 zE6gEyOtLmF7JTvzE584BvIno MEgKvmqy1rmv5tzxJh5XmC2SE CtbnUslLwhMYJ4c8VgUa12S07 s IHdpZHRoPSIxNSUiIHZhbGlnb x4cqW9jHz8+GNVxzVJ8lFS1eQ 0sGzUnSfY7KYpyE296BxZctFA v Wtsoq2bmy6cjbLg2QkKoIWZoe hGzoIlyCNA3f0WxNa06A1IfmE ygb8TwZms4yp62xKBai0E1tSV 9 H3DpZXGsxsarvEMjiZeeFW8fM ODbnvzyKEOxaR0uRIHrV0h2Oe TjFgU0CDmwO6QckvP3SWZbqTW g OPdmHAX9V94hj8P0EVAnJZCcF NL9iQQ0xT5ajStfdkfhuNMpqW tixeMrdOhjVJxfAAntN548TDI v oXrvMIQjyQ8lNOQdsUFcyQnpN T3wVHVsliabMuYPTd5MCoekFF 3KWIlLVQi0C4GrTyb5FTSrxHq s RJ1ajXAkAUujNa9hlXhklEqqI L5xRVRxnnmcUDZgtN9zBYFamS MwmZrdWN5jALUcemmfk541SfJ x VBQ3DTVuvUWzP2JjrD8oIoTsQ RXkOCNlL6FdwHBzTGqyZ437XE eiDcF7MBCihmClF6MqQPLfiXp u OfO1v5J8Ao2kFo1rEA6tFGG5A J47FH03eQIyc6J8gVW3N9FbVP KdmrxapxllvPE0RFDmTEAxbU0 7 hWRfIWpwSd9uc2L2k974BKQmY QEffZ84By6adUlnQGPumBBVqY 2xcoapv1lxprhxVhWlJIZsVHs 0 DOb8INBvpNsvEwEkYHM0IaR6E TL9xJZglB3ntPngoiyraT1eGf c+FaNnTXAnqoU0E7YvTsl4LVG z gGedOE3gkCLtSItuIv4bgBtah NirHO5mMXHvqyjiREIocX0oNI VyrTVonMwrWT1nBIGvsaiqw76 0 YiZxBZO1RKXonDViI9PfyX2eI aQpJIPkMBXxR6UgpBViHHtpS3 10ICufCvT9FTLmymUyY1DyYYM s fOkrCeG3p2F4Wy0PQYybHD20N P61dTDdh4I6zSS3B9WcQHLlgw yjmtiblNC8IRFgPYLodE10zDK k ZRqwQy9xu1R5q206JFPqFCNbc P21Ow9gkFvbLNDotFQWzU1cbh txe2pelkhaIrImYOCvMJf0LYj 0 EQBkkRkrDwZpQKK9QcB4WCV8h AYusB7ywHcpfduxdX1dZxg+T3 S6oQP5wOHiqOpcwOY+WA88nl0 8 E3LgJtxqAzu1HHWqOEX0eQT4b T6hDXYmKMmbb1T6qFH0W9Alce Tjmq1up1myEFQmKEzvU54drYO w o2S1IDYtpKV8GAPzbSntJxUaq G93Oyc+YDNlrQgaz5AfQcynl0 igk0xloKd2AjUwNMKtnrVvbCb u PGQ7r7QzKz00L64oYNglBSNfK MFwJCGoGWUsdSomay9rxJ8iTp 8+HLTpjGW4sYP3iO3jJhRzIaT 2 AHivG510JpGskCKsVbwbj3lbp 5vtcKz5AyOzQWPrwoHxcLwcWZ M9m4SeVw29E2VdlKrnc2XkPuf 0 yj52aKYbd2H3wJJ6U1WfDQIpm gandRFmfFkwDP8rBEEyabfqHX OuhH9pNHWxY9k5OaRlWvX9KQl u T4HqzeM5RTFvfSWuOBIzxUYQl X5docagn8muimioPeNdUAWaFG z4GCx3KXZiqZitUfVvVKU3FbU 2 ROV1zQRtgR5bpPmoptocjK6fH yc+RDz9r4wroWJwPW4epYO4NI 00BU92kDFmm0L4rWB1O2QyXXB p rwvfqdcixKY7ZRInOALcqK40Z e6kyMytSe2uTCPuALE4RSRfdI NcO6YthF4jApTzDXZeRKKgF7L l uPQpKWvgJ884JPthPiG2JHXng bKnM7YcWOPtiXixYrT7o8A6Gj 6LEW34AG78UR23bWIkl1Z4nAQ 9 F7RwRQPpxugpfbhciAI7BGLjB AEzhH64Vl6vuGwuWt4kMSSxYO P5KNMjaXPdZ4BteR8nFyViEMQ w NGAmD9UdaEEoILelH630BLqmI yJ1LLNdwcSkX4YkPWVmvXqqAh R7p5Z8Qz9VKw67YN03ZW41vXG g h5D2oFE4Y2EyMLIjljiuolfgy BA2NPKuCXSreQ46Gc9vsNcqLf 8pKAHzDDV1WPHrxZXdC9PvkG1 y VhGlDXTtTSRfW0FogYAhYNqvS 757RRuqOiM9IRFesqZxR5ElYG DkoXtoMdW9e1Y7Po2GFJejlzh 8 R8OcVrouhUE+AY13DWQsBQ14n SGmsOWmd2gwdIo7NqBpCTHjSR G8fCgaQTsxz7IySLZyM28szYI w c2U6 (more content not included)... Normal [facility] Coding Summary. CD:[id number] Gh0bW w+PGhlYWQ+ZA3NNTTmB86nqTI bqF7LC1uZIZ9GIDJHZMFQWW8G VM8idVI9ZAlsK7SgypYa OmlevUMgBQ20FPr5FJL2xFjxQ NcdyU4isKWqX5m4JoSxZF61pC 78QYndGRIkQaS9XiAnxwzoiLY y S2deLjMneGTkHlm+PHRhYmxlI HdpZHRoPScxMDAlJyBzdHlsZT 0cHr4sYNCiABBohWcnqGVjFeW j g5umMMFhSEdfQR5phKklG8Zmv MC1YNWok0l6Bl02sWS+PHRkIH G1jLgbVGzhz730WpEsp4onRSJ 3 iFLdKHuuZYJ2H91is6Q9ZFNqQ CDwCKV2rVR3hH5rtHogpjeuK2 GnfRPaXjE3KNM5oWCqeW3cyRu n oucxeQ8gFko+D64JPR5OAQLUV A7EIcm8W8VdQhfxsMD+PC90YW BgHY06jBXqrOYnd9vlbYt1BpP w NMUiBJE1xPonCBgdp7LiRDThP 75pxATna8C0NCCjvLdzzDLkWc YtoCC2nY8vJNqhceppg5fscsz n Qwjor1ttbw66lB83N15jQCydA HXpCSZ6QQHzWAWaiYavkd9fgO 9wIi8+IImil5ixv7hxhDm8LcM w NMQabaVzbTlsWTL2w6SwPq29Q 6WhaVqrv3HuGbi9qf86nNOwj7 X3hPG0VHmkOETecE4vFJneDbY 6 SQGtFnFghQ48lXXfNLkwFv8da SrwuSkoGY5qCZPguqywZOVjhI 7iADLewMPonRfvSR9uADOdoum m k727HxGfFRA2XFXmbKGuN8Zpj B3qQrRmORIaZMWeR8MzqIHtFA lbS945YLmhTyP8IQLdwdYdL6A s QRCzxFoiCiA9g3D4Bw6Li3Fbi qpxUZD0AKkuJTRjYzGrFrTaLq M6I2LtBci3RVUlgTmvAK9vF8R h UVJxlgjmehrbeGK4LZYgDSZgk N07rBXpTBtbVg8nc9F6g416PK YiFJMaoY73Fq9vbUziVCNzrNX U lT8psngrc4iucvgkPqZuYUQqA Jd1OSe4VZIuxKgoEsLvVGT4Dw K6UVD3gLHpmN1gxArhktancH0 w Oyc+V07gqM8cSOA2MHU9einxP FQvsrAiMO85BV27D4MaGutywO FibGU+CQDuguAamPbvPA0gVnC j p1jkf4BgMXnuK0FxHDZdOOvpV oj4ZHLfQDH7dQK6bN6qYIQlBB tvi6W0tLD9Y5SpbkLeaj6qm9v s JKKlLEabU86lgVYqc9V5QNSyp KR7SOSssQnsXuNeiR87Jyo+PG AcsKnah7IoCishi6zge4ehaHn 9 QzEfYWSbaiCdqJolVVN8v2KpK a91Q38hZOexCLZlCZMvSGObKK ZsnDibkk8xbT1oCa9+PGNvbCB 3 zLA2oO9jBONdViE3BAulZ020A sOswQQqEtort0bnv7zfjKw6Ef FjAFPqjvFjmKzhYGR9g7ZxCh8 8 A61uMNffMFAsFKUmAEGlSRLps Tgsrz8krL3dOl9+XI5yt3zjxg 23uV86gBP+IIOaKTB5fXrmDWe w TVGgxB3dPEtdFzW3NNZfIdSaq Q08aHViEBzdRw0tuRalmPntBR 1fWSAbxfweg872WrVwg7pkAQD w bPReMIbpUYP6J91zs0W5QDHtY CLtOZL6iKK0xA3pxFrgyybxoZ SisTjzouYzzSkiGEcvLXiqJ62 6 IHRvcDsnPlBhdGllbnQgTmFtZ Sm9O8UzHiz6SQWjmUzoJB6iwU VkZOwrRz8lqWxkoEzaJW8kUMA p jyoqd501WaEds3lzHUDrlSXgZ ExiFML5C62oo4C0MKPaCMLhGJ B1eKI9tX8exCazjjfkuGNfxBf g vaUzmRzoDQobTWcbA715KSYjm StiWvXobeQxIFGvrCD8JT28BW 41yDCxx1T3oND5W6LnGYXudkd t ulaamZT7OCMhXLUdyS08Cx9bj CbmUm6aZZMlMCU8ZZPrnUAoA4 TriT3nNzVtUAAnXRXkO2MrpSA t VDbhG767PZakVdA5DUQddfKuU 8HuBRPvtEvxHeD4x0V9Gf0VP3 U5NX36WS29rOTye8S8oNJ6T8D h IJBnjdxyexhwpQZ1ZVKpPVDjc J66Ei4qnTrvRj0fBFVtYLU4FU YogULgZ6CmdB2gQyFyPSMvDYE w G2AqcBGvQJeoG635GYvxKdC0H QAegqViC1BpPVKmmVuvRhU7i1 E4Wn4CUQk6DY11OJ20xPNsc5F 5 bFV0S9TmVOHjzexcbyahpAB2E JVyWORpnN60Cz5mlYwaZc7xUH ZoLAJ1ZGBjbLUwR9SxkW0fKzT j VDWsSLPwY9BstBTsRBfyJ605W RfgRlI6EJRyfyDpR1JxNYSlmM ayPbE7v0L9Ew6GZMAnMA83IIP 5 iEZ3SZ25MH06P9QlRewnlFDfv +PHRhYmxlIHdpZHRoPScxMD QpIpHtdBjbLE1sFj9vKLFjEUA v rNbczFZtVxVxv9bjJEBaDMniO T4ufDigT9RstXR2EHWte3b7Jh 02U38pP0LplKG+XDPmcUY9pAU 0 pV2wFxQvMnN1IRhtQ714YfPkc TLjDslll5opq6yuiCm8PzW6IL KmztCbhHouCNJ1m4AaDg11Q00 s IHdpZHRoPSIxNSUiIHZhbGlnb u8ewC2pFj0+HEAssGQ1aUF3aN 0fTnQiWaT3JVtvQ211JnOjlWA v Jfipt8aqe1ubyIs7TePlWUYim kPopBabYBM3i1PpUf64T5AzkZ fau8SkNjh2ea44yEFux9B4oUV 9 I4CnIWHxqytcoXJsqKtpTR8hO IUdbsvpUZJmtW8bFBYhO8n6Dr KzJlF3RDyzH2DddvE8DXLttFN g CXrdUKW6V46yx9W1ROQhEGEnY JJ8yES5yY1djJhtwvmyjUIzuA qrcyVjcPsoTDrtHLnzR542JRG v vUsgHNGmaQ0vAPXtcETceIrhB P8aANSkkjkyZeURRe1TQwpmQK 8EEKeCLHx9W3YcIxc5LTHazUj s FZ9aqDHyCVivWa8biOqeuXlcY X0wVBBbifoeHVQmjW4rAOOzgT MxfYyeUY9pRPXqswepq783QoE x VUL5PZGrhAUsY0MrrJ7iDpRwP FNrOBLbB2NexVZzOUmcV765PX uzFuU4NJWirsLrH1JtMEHruWn u GeL1k1X2Ex5aRi8rYD5aAZB5B B06PT69jBCbi2G6jDE2J5KwCT RjsbcehujvqMY1DBQyIWDznI8 7 xTLaBYrtUv3uv1M6o370CTXpG MAzyC85Ci4xkJqdKYHiiOYZiO 1ruggpe1bnhckkTrJvXEEpARi 0 ZXz4QKGkdDjsVjKqQKE2IxD4I AT4iEVszD4kmPjhgppbvD5lFc c+VsWlIRAessN1T5EhKsh3BHM z cAjvCN4zyFWmTCstUt4yqBcnn LvvVY8dFHGmzyvnLKDngZ8cPX ZwoCExlWovDH6uEDToruokl73 0 KdBvDPD3RCXugZNtT2EghH3lU yDmJXBjXRSaF7OqbMTiAZvwR1 89FAdfVbD2FPGbniMxL3AmAQD s gHxwWfU5o3W2Tw4LDOkaYK72K O09eBZcl4U1hSS9H4LuWCGrnm bvyvspkMX1ZJEtDWVdcZ90wBF k JHtzJv2tc5D0l979JDSkMWRrj F51Af1syDdiIPOsbKHRsR2mxo frw7gvixsbCyKvGZEuLRw0YMh 0 XWDbnXiaPsWtQHT9AbX6QUP9g VLasJ9piOldbmvdkE8xGxi+T3 E1aSZ3eOKgoYvkkEZ+BO07yh7 8 Z3GvQcyjCro5DJHnJHD1wGD9v K5yFNGdKUhzd0F0mKX1E1Tfmx Bmzr0jc3lxNDMlGXroS46rxOW w x9R4LQUimSN1TVPokXyhLfGmf G93Oyc+QRVvyRspc4NgSeulg1 fya4thwAq7VxIrTKBympCueLj u DZW5h0JeAp20Z85fNDopHHKtW EIsZKFtJGZtlKfrew5ifH7vGq 8+MWSabRM8tHH5rH9aGcWcMwT 2 WDccT902OhEpsEFrSosva4hqj 1qkzBf5PqEeGVXbthXpbSqhUO C1y5HvKl86V6VkpVkpj5GyQzz 0 vk00fKOjm6J2cHS8S8BnGRRkp mxkrLDkmNseTR3eWRAaohpcMN QjhX6nGOEeL2i6NzTqZpM0DSz u W4UgjwA2OINlpQEqYPTxnAPSp J0nkjnrd2lmbrkuNrTyVYRbRW u4DUy2IZWoiImaBmVsAYV5GkG 2 PKM8qPPlnP6jwIdikimerF4aQ yc+WVk8t1jacBNeGR8ggNM4PK 09RH68kFLgr5E5nFI6U5RhMYI p nzoazxfxiPW4NUEoENLujK82W a5tgRpwWd1yQEIvGRM7BSGjwW HvH0VdzA5lTeUwBFYoKASvN9J l oIDeMJwaU308MLeeLvJ1UWTox sWzJ4QiYYQfqIlnPxI2s4C1Kz 4ELO72RQ44AZ75uKOzf5I1yQZ 9 N2QzOEEcxxlwgwhncZX1FGEfR WIrwT13Pd0dcEhxSf5iMRMvTL J0FIQwyWSrW6PncD7xHgHbBEZ w XIYiA2AzcERqAEklB886EDdaB bV3TGGmtxPzS3OqVLEdlYczJl T3w4N6Nw5QRd34ME69GX53xMJ g j9I7jVB5J8TxQDGuuyflnmwit AO2SJIbMPXebA56Cw9acNaoDg 3qVWSjIZH1SKQfjSJoV1KneI2 y MxXrKTZyLILcH7TptLAaDBqvJ 437YUaoWwJ6XAHminCyW0AuPB PbpBmdIbH5c2P3Zm7DJGhigoc 8 P9IhJwpuyXE+LH88YYLfWM45t QWklJOxe2dltSj4KuVlCLEuVA N5cOxwRGtgp1EdZRJmD76djCM w c2U6 (more content not included)... Normal [facility] Physician Orderon 12-30-2022 Physician Order [id number]#1.00CD:1 27 Normal [facility] Procedure - Woundon 12-30-19 Procedure - Wound [id number]#1.00CD:1 27 [facility] Consent for Treatmenton 12-02 Consent for Treatment [id number]#1.00CD:12 7 [facility] Multi-Wound Charton 12-27-19 Multi-Wound Chart [id number]#1.00CD:1 27 [facility] Nursing Note - Woundon 12-27 Nursing Note - Wound [id number]#2.00CD:1 27 [facility] Consent for Treatmenton 12-02 Consent for Treatment [id number]#1.00CD:12 7 [facility] Multi-Wound Charton 12-24-19 Multi-Wound Chart [id number]#1.00CD:1 27 [facility] Nursing Note - Woundon 12-24 Nursing Note - Wound [id number]#1.00CD:1 27 [facility] Physician Orderon 12-24-2022 Physician Order [id number]#1.00CD:1 27 [facility] Procedure - Woundon 12-24-19 Procedure - Wound [id number]#1.00CD:1 27 [facility] Coding Summary.on 12-20-2022 Coding Summary. CD:[id number] Gh0bW w+PGhlYWQ+YW5QZKXqP16qgIF iaG2RU6pJRQ0QLAEJPMXWAM0D ZE5igRZ7WSvtK5GbpqEr YsxnlKKqZK35YFz9QFT8mUdbS QvkeW4tyZCyE2u0XhXlGE88mF 23TRzjUQRjIfB6FxKoyrafbSK y O7jmHgFpfTArJne+PHRhYmxlI HdpZHRoPScxMDAlJyBzdHlsZT 6fKi3xZZIrJPSnwGdgjAXoFgS j t1jiNNXuXOjdMO2qzGtsJ0Flm XT6HOXst6d7Dr45cKD+PHRkIH U1oFrgKXnqy509SeTkp3kiWCY 3 hFYpGWlvZSV9O27pm9T8WNJnC XBoJGF5eRI6hI8upUeiizplH1 SoiOHjTvL6DOD4yIVdcH1hbEl n irygqT4jAxg+R80ETA6ZFQGDK G2VGsf1X1MzBdvshZZ+PC90YW YiIR84xEKclBCog9cgnJp5OzC w FHKyRXX9yZxqEZbmz6BzBQSeX 20geWQek4A5DKOapSlwfYCfIl WmeRG7pY6eGEpgjhmvo9jwzdv n Rklyd9eikx41lZ86I75jDWqsO GLtIGJ8YSOoUGQrgFbtsv1xsX 9wIi8+WXscs1yrf9syvKj3KeL w WESueuOemNklBMV7u0NeTa28K 8AbrHeva9VaUrj9mb84mXLvm9 Y0pLB1XEuaXSWmtB5fMVhcFcQ 6 APEcMdQqbA47xHObPCllRw8am DdriLfnCO9tVFWpsygdYJXarQ 3kYSHmyABfuFmtIX1rGBMfgki m k966QfQaIEW3RIQtrENzE7Efy I5wCfPkURYiSKEoD0DboKXqPZ wfA389NLaaSnH7QODfmpTgR9A s EVGwmDqySmY7s9T6Vs0Ks1Nog kryPSR1SMjuTJSiBbOiDsGhQu X6J2SjUab8THRixGlfVI1jT6P h IOAbbxorukdafDQ2NISyTFWyv Z12kRDoLYfiFu1th5Z4o752GL AgCTGuyO22Eo8kqNnjGSYonSM U qT6siwdhh6jqiflsWaJvRMWmH Uo2IMl3GQJtuDqeZgOjWMH3Ff Q6XHJ7eZBqwA0wgJedqabbgV9 w Oyc+D05lkZ8gWTV6BTO4kptoL WEbsxMcCO06UB15A7HjPcfnyJ FibGU+UVXbnhQjiXnkDC0aTvC j c6nuh2GkYZgmF9CnQWVoPVdtL ec7TQLxLBD1uDY2mH4gLEBvAF eqv6B2tMR5X0OtdkZbks3ei8b s PWOwVSufA62ucONwj5D8DIJrr KM4GSGfhXgjLhXqyC46Dcb+PG BzdWkme4RzEhxhh0qrh8ljuMc 9 KaUsJYRyziFfpPpfCGK7s6QeZ i51L09mZLwwYFRdNMYqFTDzKX TlwCuxsd3wlO2rBj6+PGNvbCB 3 oQU1aF0lWFUqGvU9NFiwE355S tZziEQsVlmvw7fxh7rnyGn1Wi UhCWBmnpRbeOuhIXO3h5VbFh9 8 E74rHLvmVAKkEURzDZMvEWBkq Vfpyw3jxE5dEj6+FN3ip8aina 24pB87oCX+EATkRHD9gJmdCHb w QSBvfZ5jQZlxYmY7JKIuReFxw A26xPAzVYdzJp0luGyfpChoPU 9jVRAdvpxiw632BcKtv1eqOJB w cRPyOEgyEOL0B87kr4J8AIBrD MHwXWP0wHK3iH2npIzywnkzqI NyoIzybcGhdQyfIVkhBFqqB06 6 IHRvcDsnPlBhdGllbnQgTmFtZ Xo0G9TwXsd4TNAhdNrjCX0zcI QfREwkYi3aqXnreSwhWA1vWWZ p yfqbg275GgWmi4xgWSKpgCBqT QhbCWH7Y34qd4V1PAGrUCYxSM U2bRK5lS5lcRnuqqltfRNloWm g fhNspHxwMIudWAleE811KTKqe GvxGnLeflPnWRDkcBP4WV23AT 48pMSrn6F0cXC0C2EgKKMxvwa t aaqntCO9HZQgKMVmsV87Th4ek DxbIu0hFZEwOFX4EMDjkSCpX0 SkxT0gYwNnLEZeGOUcD3WavVQ t OWhlI957QCoeKgD7CKAxisIdD 1XgIKNmjMonHgP5b7T4Cb3YT3 B8RA17BB29vFFmd6K3pZO8I9M h LHJtvvnexcgejXM1RSViVQLwi P07Ta2zvRtvPc2sJBOeKQZ3DQ RriYQjJ9TgxD7hZmMwTETpSCZ w O0MflNIeTKavX951FRmoSfE7Q PDmaqGmN0VlEVJrpWpqPaQ7h9 P4He7AWNo5FF98WE11hZQyl7Z 5 zLP5A6QbFVBwcsfxdbnwfCP7S GQaATUnjB20Tb0kkNypBl1iNB EoBQS8ZZYicRBtN0UxwT7uSgB j HKSqUTXpY8LrwGRcZUvkC959E AnsSgI9NZIjckDjD2IeXNPsqJ efUnJ9q4B4Gi1QZOJkMM30FAD 5 wZR4KT45DX58U2PqYccqjULbw +PHRhYmxlIHdpZHRoPScxMD CjNcUhsZjxMK4tZe1oKNIwTZC v xZxxmTUiJzPgq3igUVDiWLrpZ K1xdXlvO9QnuPB1UBZdc3s6Wt 70V60pH6TwoMI+SGLzpUZ8gNU 0 dU9iYzDcShR4IOpnC229CiYix MNcCyinc0lis6jlkYg7JvH5ZG PocnHsiYlwROJ1f4HqZh57A54 s IHdpZHRoPSIxNSUiIHZhbGlnb t5neB5jSx1+CEOpvZS5eMB5hO 4eDmUcLjD1TOlvR609OfLuiME v Krlzu2nnf5pabDg5MdEoMAFhe qUbcMwtVKK3e8ItXf51V6RonJ fil0AmBuk0ko97wFAzs4G8jCA 9 J2StAZPugrnfpEVfvAgeJI7yC GKxjepfAFUtvN4uFECtN7g5Dl DoLnW3JKkpV1LamoT9CPNdhAD g PDyfUWB8D25tr3O7FUVdSBOvK QH1hBD0aL4scIamelgusRFimU jxzjPivGtzDSxpWYqeW986YNN v pYrtOTYprH5xAUZgkMRfbNseU C3gAXEjqckxMvAXXt5PNpwhXH 8BPYiVJHz1C2GxDhn5XNFmnSz s HQ0mzXRvSSvfUi6gfAfplLrnJ I3lDOTdlnztYEBnzG9oFEKybP ThvGkmXL8tBENfpaeic593LlC x DMR3GCEdlHKhY0LudZ8wPxXhE AWxMQAbN7ClwYHdTGzdW198LB udGtH3ZFKmbuEcC7FaLCUrzOn u LgY2h9R5Er9gFx1nYX2zNQR8S W18TL50lJWvr7M1kKQ7U9HxEU HaqnkfwgirsKH1AFRrVNXomG1 7 lGPxIMylDn4du0L3s138HUJoM AJehK40Hk1xtOybEXIqgQUJwW 2xugyko3twwwceCsZoKSZsHUa 0 EHa3GVAhjTunBvOvNUC3TnI4H YV5nWRwjT8grXxkdieqaS3gOv c+ObPqEDMntmH6E0JcYpa5BOW z uZxcLN2soCPbGUpsUp9ygJxxd HkqAT2aFBNmuoccHCKpeQ3aLX DcjBLecFhkJO9dCEAevcoge69 0 NmMxCXN7UBUkaZLwI4VrnB4vT oSjONCxXJNuP8BbpFDlWYlfZ7 79QKeeUlL8VOXrxgHpM6GnAUW s pCinSnJ9g2T2Be4WPWffPI26Y N82bKPhm8Y0sXL6C3JoMNYhdf mxvkvwnNX6WPUsNWLruV76aJX k ZWkgFj1ov1K3d516NWBuINIyj C25Od4kpFvyQLRlqWUHtV1xrf zap1jugmssBcEfPTVrKWq1RBd 0 FHScfWjdOyKoQHY2SgI4YVD4b YRcvX7gkHjmitgfmK4bGoa+T3 Q0tDY3sDXyxHrhuOK+DZ08ev9 8 P3ZwMtmzDda3KRRaOCF0sJL8q Y8zGZFlTYvph4T0kCM5A8Tpws Tuaa0zq5jzLKBuQLspH58ehZN w e0S1IYLttCV9BZQqjCakOiEbx G93Oyc+SEDyjXdiw4NyFrdaw2 sfx4hlvIu7LaLyDNZahqDiiSa u OEA8w2QbZz81L53nZAqrOJPvO XNtOURhWGImfZtcsl6tsK7wQq 8+IQOnoZO4dBU9pI0sGiKnXpI 2 LHxrI578XyKqdRZoQpbff5hzd 5fdjWf2NnHnYDKfdcNfbYymIU A3k3BeOc46E3RerPzsf0FfBpl 0 en10kBNcj7B5aNX3W0BeVWCzk tindBUeiHqeFF6tUTTenhpuLI BvsQ9oBTIwD9h2HyLqJlV4NCg u N5TvgsP7QYLbbSTtUZLmtFPHf F9ynamrc4rwpfspDaUuIXEsGT r1CPy7CKJoxRbfYrYfBXF2XhO 2 GSW0xXXhlI9qoUnqbmwzbF5jM yc+ERh3i8uxvFQkEE3xzRV8XE 15HS32eQDrs1I0jZM6P2IoCPN p gyewcipbnNL3PTTgXICqnH41J d7tvNauUf9bHYTlKUZ1YYBlaK SoG8RpxT4yMdEjIMYtIMUhO9V l qFZqQLqsC760WQpoAyK0OUBmd oEfX1IjMESjgQcnCvX3w7S6Gb 1RZO03BC85AW01lMWjp9C6qXJ 9 J3EeFUPdrscoshncjMF2NMNqB ASrlF80Ol2zbTkfRg5vWUCjCX Y5MJIdbBPhQ3NgtA1mLnTgXND w MQQtM0UtdOYoUYboC173OMzwQ oG2ALYzfbAcE6QaONOgnDigBa U8x3U4Jt9CRc68OQ52SG35sBL g h1X8tTB1T2YpAJJhlgsvpzgzz FV7JXFxJDIubV74Eg3fpMjrRw 8wRHEkVKR6MRVptGCrP0PyrY2 y ElTaYLPmEEJaY5BqzUEyZAwiL 622OWyhSfU6UBUqnbMtA9OdCS FpfEixAvO1h5T1En9DAWtpujo 8 Y9HbZrpkzVF+NV59CHFgNU79n KPodJQcf3xszUx2OvJzTYGmLQ W2rAhsVEsmw5EnSIAdD40cgUA w c2U6 (more content not included)... Normal [facility] Consent for Treatmenton 12-01 Consent for Treatment [id number]#1.00CD:12 7 [facility] Multi-Wound Charton 12-17-19 Multi-Wound Chart [id number]#1.00CD:1 27 [facility] Nursing Assessment - Woundon 12-17-2022 Nursing Assessment - Wound [id number]#1.00CD:1 27 [facility] Nursing Note - Woundon 12-17 Nursing Note - Wound [id number]#1.00CD:1 27 [facility] Physician Orderon 12-17-2022 Physician Order [id number]#1.00CD:1 27 [facility] Procedure - Woundon 12-17-19 Procedure - Wound [id number]#1.00CD:1 27 [facility] Progress Note - Woundon 12-01 Progress Note - Wound [id number]#1.00CD:1 27 [facility] Coding Summary.on 12-12-2022 Coding Summary. CD:[id number] Gh0bW w+PGhlYWQ+HZ4CZRUpC74woLM ivD1BO3rCIQ6DEGLLTMOEAZ0D UD2igFM8IIamE0FgszSv MjupeHViNU59RHr9LUB2pEjfA TspuF6bySRyM7p3BjCdUT29lI 98UUctMFOeYnC2FbYsipkhrDM y P8laDnMshRNbRrm+PHRhYmxlI HdpZHRoPScxMDAlJyBzdHlsZT 7aWb2pTPOdWILzoHddzEAxVfN j k8twKXPmHMlmOX3pmJxhU2Els JV1OMZgt0j6Wc66vHZ+PHRkIH K3sRmpTFanu332HmRid7hhTCL 3 yKXnYPjqIHD3N26yc6J5WZQpQ ZIiBWC6fWC8fG1apYnmjcnnO6 ZfxKGrUlI8YCL5tKLxjY8nkYm n uedttW2cZqx+D17YWJ4MVZPNN M7OLms2N5ZyRczzxXA+PC90YW ZyUK15oCGvnMLbi8ocvBp4JiC w VXPvHSJ2nVnpVBlgv9XjRNKoS 58skCWea5A1YOTtoBdkxRGgOs OmzBN3wX5bYQmbknfjx1devlr n Brjiq7mini39lL88W04yFNxtB QJsUBM1AVYcVQNooCyzyu4diS 9wIi8+PFzrs6dnw8kdlGj7YrL w KCGqasOplUkqARV0v4VfTg12S 7ZwuAxru5TcInu0hl48sFHcd8 S9pMT0KZrxUPDhdK3dQNqfHdJ 6 OYPbGnLpdO51jNTwNKwqUc5rq DinnRovFQ2jBNEycabaPDYczP 2aLHBpgPSfeNadOF4eERDsauh m r499HaRcSMP4NQMkeFMzZ1Cqk L2gBkWxLYWnDLZnF7DlqTNiHF rgT425QVshMdG8ZSMhbvHkF3E s KDAtxCkwPeZ6b6T4Sg5Kd2Svw zebGRV5CPzyNXMpKgTyWqHeLc B8V3VbIpt3MJByvDsaOD3wI0U h PIXauuukbrdfeXR9JZZxLNAwj W94rWSqNAdyWy9aw8Q7k122DV DzCHXypR50Pv9zdJyxIYKxkMT U mS7ybsrdq8xgxjuiKfYkFIHgA Ry2EMf2ZXJmtUitVjUvJHS4Wg S2RSQ2wDViaP9ssXulzhqxzP5 w Oyc+A07dbK8nHZZ3AXW3iieeI SOersIkRA70AG75B9CbNeflrN FibGU+TFLsxnRdcErpCW3lBpU j l1nnk7QcIEkoS3ByVGTnEKkgN ud9HNLbXNX6bZT1dS5bPTMjML lif3A4yGR4F1CyeaCvni3yu5b s EZSbXNfsR57kfGPic7C4MAQjb XF3CYUgcPorWcSnqW22Umh+PG YieKxow8DoAexno9eqa0yctEl 9 PkFzNQDzrvGymKbdFOY5e7MpE d00T01wSXqzOFOeTOAmIMDxUH ZwiWxcff0yrT7sQx4+PGNvbCB 3 iCQ6xZ3hHWSbZmH6OFjoT050Y wLsgNTeUfzqz6lcw4iugKe1Io MmZCKtpgWvkSepIUD7h2SiSw6 8 W75cNEplCZXeSGQxOJIzUDYlz Xfiuu8jiI4kHn8+CP0bv3tayg 13gI76zWG+JTCfFAL0sZgjFNq w XNHltK0jJFsoNyU0FNNbUyNta X54wIDmEJflFu0scCqbeVgjGE 4qROPxlitxp877MhGmw9nsUEY w hEAmRFyyWZC6F04ju1M1ISVrU HPkMDN6bPD9eS4jaTanfmdneO ZzwJcxbfOihYedNYhhZPlvI26 6 IHRvcDsnPlBhdGllbnQgTmFtZ Py7R5SmNcp4JCDkgFvjIF8kdL LpJPrdLd3zeSvhwTozJZ7lTTK p llykx232RaVvs4nsBDPgpCPjQ DxrNOF7Q89tx1W5XHJkHQToTN Z3mGN4hF2zzWcpwgdwnPIqdQh g ntCqcZicCVebTCcxR121ZMSvb KgiAvZfhvJyLRFtxWP6SY05RY 68cQMul6Q3oXP2W9ShMRPyflj t yttitTZ6ELUoXFPjuG45Le7gy AskFt3gVLYlCXQ5VUUrdOMkJ3 SmgS4xEsRwHXReIXVmW4NphTK t QWjuM119VRszQmH0SWVchbRzC 4EyLPIsuOlyJsY9r7N3Tc2HI6 Y1UL22RV31tBLam4C5iBA8M2B h VGTgibvqltyshQB6DMLsEMIoa S46Ge8kqRcnOx1aKKPjVYJ4EX XrlWQtI7NgsC1aXpZfEEZqTIV w C5PmrFYtPRylU662XMmmFmT2J GRjkgBdC3UlTDQdsVnjZlM2r5 G6Ok0JKBt3LV27LF50uWBqk6T 5 xNV7O6UhHYUinwzejhefxWK0O SNnNVSyyA61Aj7mjKvcFq0cJB RzTNA1NQHnmGFzZ9KxhR4oRrC j WBKzOEUiS8EujPDyHHthU241G UhwAfO5YURfxhOtH3ZnTABoaC ynAgS5e7X6Xj7SJORnTJ71UJW 5 mNO8WE39ZW73W8DcGptvmWQiw +PHRhYmxlIHdpZHRoPScxMD HiEdXpcRlyZE9rLh3pBFOlGRW v aXsvcFIrPuCcr3xbDBZeEZgvV Z8wyYyjW0IloRV3ADBkb5v8Gs 55P06rO1BdmHM+RYVzoGI7gXO 0 zG0yXuNjEtZ1QQmgC117PgWmh APmCyhcz6zgx0grvFe6CgE0CC CspmWxvDueHBO8o7OzMj70G46 s IHdpZHRoPSIxNSUiIHZhbGlnb t9twP7sEj1+DNXkoAX6eUP6kG 3eIhZnScE9YMctJ999UnPyrHZ v Qqhko6nuf7uhmJp1GwFcTAVmr uHhmPvqABN9i2CiUf72K3GumK qwj5AgXtp5ir19iKRgn5G1eNA 9 A7FkKOXspdvkaPUwiFqgEW0hA PPfuoitWIFpoS1nSEWiX3u0Cf TaOqO9VKhoC9LznwP4RBSgdSX g VMcqHFI8U54hu2W3WKZnLFZiU VR2vPW4zM5atTycikcqdVOjqC fjqgWzkTooRXykLMviF710RIK v xKqjRYTerP8pZWKjaQQlzYqkW N4wPSDvakqrCxUGRz1RWhxuKW 7FTJgBAGu3N5ByXew7MBBpvUr s QZ4fpPHqBOldOj0lhBhgfKqbB J6zSLXarkwrGWAshN5eCMTefM EggDolLR1pDJPoyykfp118RqD x SUC4BSSqeHTyD7SgyJ8uKdVhO GGuMIVeJ4EzcUKhAXvtN140CQ bhDxZ9OWXwxyYwA7AyELCflRf u ShB0n2W0Fw4iTq3xNL8uPAR6B S14RB04mMZkg1W0zFF4I1IvRH LnsvphbqgijFN1OONrLBLpfO3 7 eCUyRXskYu2pt6X3i266VQJeV HEvqL51We0hwWtkCEHzzLBAwC 9fsxzzh2ruvafuBhUbLCLeXQm 0 VGm1NEMgoNnyOhHnIEA2KkS6U WA5kMAqeO4bqAjxgxtdhL0nCa c+HdGqCINdtuZ4D7PmAxi8HGC z pJvxKT2zbUFmCElwJg5gqPxyr EhqTL4pTHXxzuhwQKSebI5nTI LhePEwoQmqTO9aQSBkdhxcj09 0 KxWyLBH2AYZigXDmE5RrjY0nD cRbSCQjLRIzJ4LogCGoXCbiX0 76FEinFgO2CBIzxvYxD1RzHJI s pGgjVzS2g0C6Jl8JKDzqWT90N Z76iQQeu4N4jYM9N0IrRZWwew chkxcwwTU8BUYmTMAuuF49sTA k LArxVc8ru3I0s798QXQkDUJnn N19Rp6dwMoqTRIdyFIEkU6hjw yqo3oxevdpVgPmCVSfEHy8XXc 0 NSDzlTajFeXnURF2BdV9CVS9z IAmjI5qvBkqdfmuuT2jDwq+T3 M2kFV6uWZijMzujNB+WW47dw8 8 F5DqLfwqAhv7JKMnGUO3gAG8h S2wBIRnCPhtt3K8kFV1P0Fgff Nbwv7mx4mcWSBvHNzeU20euUM w k9K6YQVcvAB3NCDzrFubMlZvk G93Oyc+NCMtqUcub6EqDslyf7 rlt4afuSr9UsCwZTXjojSqvRo u IEN8k8VsPp46Z62eXYhkHSGqV JNuSJNfGZRgrKwcdn3lmI0eZo 8+FLDhqEL9lAK0qX9qDxZuYvV 2 VNpyX922DsLdiWAbLjpag5vmb 0tmxQn2RzJyUFIsltOtaZwuBR K2k4LrZd76G4NayVzkz9ScNfa 0 nc28vBSqq9K3jST8R8AhAYKkf frivQQbpMfiDC6xQSQwcknbQS TjlS1sKATjF8i6OnJyGxE1WDo u Y1RfkrI2XLGtjPAfCOVaoQKYk R2jwzbac0xzwngxIkTbTHIhEX s6ETo5FOVewImjLzLiCDZ0PmB 2 EEV6jIOuzT8snEkufgnrcJ7pC yc+JYi2f1kxgEZjSW3qwFG6YD 34GP10rUKlc9R7hJZ3M7ClWND p mtadpqflxZI5ZKTcUBPnfC45X u7zrDjkOv0fKKKiCIA2CPCejM JmW7QtqA1zBlIfQAHoXATkA5X l wEXqMYrlA016CWpxTtG9CIOzy lPpR7VvYFSosZhwJcU8p1D3Pa 4RZD00AN21UR87fTVlt2C9aAT 9 R4JgMDMjqpmvtcwlbFP2FKYkF HPjsW59Gd9kzHcjDt3xBMIvNF B9CMYrlYIoD3GuyD3hRoCcHHA w RFZiF9SqiQVmWGeyX120NSlrZ uF2VPDxzhBkB9PnWSZfpXwtAp E3r6B0Bw0TYo24UC78QH66dFP g b7H2wOM7I8GcLPHckuovnmohl PZ2LKKkRAHomM41Io1qyMefPl 4fRLKxQMG2WBPapERjK9XuvJ2 y AbUkHTQpWWLmE8DduTRjSLlsP 392OSgwDmV9SFIioiIaA5SlLU LpxKtrZwS2h0Q5Gm7NACdijwn 8 S8YcFkhatZQ+LM23FLLfSB40z CGufAGuc9wufEb3DmYbEHTgVS M9oXnwSTlmv4XzTEGhS65mtGM w c2U6 (more content not included)... [facility] Consent for Treatmenton 12-01 Consent for Treatment [id number]#1.00CD:12 7 [facility] Multi-Wound Charton 12-10-19 Multi-Wound Chart [id number]#1.00CD:1 27 Normal [facility] Nursing Note - Woundon 12-10 Nursing Note - Wound [id number]#1.00CD:1 27 Normal [facility] Physician Orderon 12-10-2022 Physician Order [id number]#1.00CD:1 27 Normal [facility] Procedure - Woundon 12-10-19 Procedure - Wound [id number]#1.00CD:1 27 Normal [facility] Nursing Note - Woundon 12-09 Nursing Note - Wound [id number]#2.00CD:1 27 [facility] Coding Summary.on 12-04-2022 Coding Summary. CD:[id number] Gh0bW w+PGhlYWQ+JV5ZFAGgK24rkNT qwA6NG4tYJV6RVXBHZTIIVU7Q YO4hkIX9BMjpN2RacaDf NdnbyNDbXL32PRj1IHY9eEaeY PfysK0cpVYwO1w8JaYmUE38rW 99ZKkbYPDaRiJ3EwVnseeozVU y O0uzXjDyjNHnKom+PHRhYmxlI HdpZHRoPScxMDAlJyBzdHlsZT 1aJi8xLEDzQCKltTxobYKmKdF j j1nvBLDtMXasVT3efDlqS6Ybh JR6CLHmp0t2Od77nLK+PHRkIH O4aOxtIFfsd044JoDnl6flCYQ 3 qTTjETcwEAQ5S59sf0B6BMZsE CYrQHH5bAP4bN1ysNxvluarT2 PvvHEdMiJ8MQA8uVPsjE4dkNg n yiiplK6qLkg+E85ZRN3PQPQEJ M5DHgr0H5TuSizroHA+PC90YW GrCR33mXJqwOJvd1jqnXj3NsL w FIYzEXD4dVrvZRhpg7VzVRWmS 16qjJEuv1C3BIKokJewmNFuOe QqyAP0lT2bXEhkhpkzx2bvrue n Vghtr2ghie94cO11P12eYKocW MVkOEV2NIGxHKTfnMncsr5jwK 9wIi8+TWhxf9woj6xelTl4TcS w WNLphrWicKiwECN7z0VoUx44D 0TwuUjox6NjXok8oj35bUBqe6 H5bLI3QPqdRFDgpW5aUZfwSxV 6 BLZuIfZeaC51uMUdZDqcHy3hv LltiMgjZV4rAJAlubwnCYYloZ 5rDJJjhHOgeBxeWU6zKUAdkqa m h051QmMkACX8BDUhiYPrD6Koz L4jOvPqRVPjYZPeB1HepPFgAM lwL364QJaxSiY4DTDgcyDmI0S s XIFsvZnpKvH2m1S0Mp2Qr5Mni gluDRV4NUvmRYFgQtL6WzYiKg V5X0AhCmy2QPDnnXldRU8sN0G h ZBJjnuxokejzyTG9FXUbUQLpa G39zTHyRInzTl4jr9P5p084NT MhODMlgL35Rb6riXhaVRVovGE U vA0lnkuun7ugbphvLaPnDBIbT Ih3XWz1OSOviSpdZkFtFXQ6Bc K0HSO5dTBoeS8urQsgagcqaL6 w Oyc+D34wiU2aNJL1MAA8gewwX OHlsjXjJJ94KD31X7EmNtwxiR FibGU+TEGlzbTihVewKC5eJrT j r7dha4QeNRccX9PgPZHhGRkcR kl7TBGfDCV7dBA5uB2hCZZeCO rhq7Y4xSQ9V1XtqvMswc6xn6e s QPYdZAnrJ76qmCRcq0M2RTKzg RR0SGGzdYszEdVpjX86Sxb+PG GhsMghw4VtKanur8pvw0fajYw 9 BpTwNKHouaWwwBvzJKE9c6MmV s80X61gRNtwJXPoEYVpTGKwXO LayLdpkj8zhL5sHu6+PGNvbCB 3 mBU2tQ9qSVGvIhA1IEsiT500V gAnrNYgRhyqy8jxk1cgrSc0Ul CnQDBbtoGvwFzpSLU0d8QdDu3 8 U14tKIqvGBIsNPKjLONdFYXop Qwgvq2pnE1aRh0+XD3ae2gwhy 44dK18dQU+YRPyNFM9uIqnLRz w YEKpmJ5yQSjcUaO5UMJlNgKqu E91iXWoAUhfCp3mkKziiGugLX 6eWMGjnzxdl047TdAhp2dxUTU w jLXlCDoaYHQ0Q12xt2C4NIWsM FAlAQF7zZI7uY1feZmhyvkyhJ GojPautuIaoKodNGeaUKtcM98 6 IHRvcDsnPlBhdGllbnQgTmFtZ Od6F8LnUlm3DRZybIcaVB7zvX XjZNsoNu9wmIzeoTxkIR7jVBV p zbmzl054SzBrf3ulNSCjpRGwD XojRLU6J45nh9D0GTBaEHZzJM M8oXF8iB1bvRubzueqhIPxcYg g uwEzpRqyIKtxZJqiR025RAQeh OgfKdFzpwIjHVSiyGT2XE58MN 52hSEdt9F8lWF7Y3NlRLHuqoe t uxopjOF8MNFlCTVhwH12Df2ey PhbFs4pXSNnEXO2HXHdqNOcY6 BibI9hWkMbDEWkOJPjY3OzyQQ t MJmkR782IRrnOnX7QFCncfZnU 7JvHCNopFumWaT7i0W0Up8SU4 M1OD13MA68qSOlm5A0kLB4F4Z h TXQbclwuegrejTG9RKXsONVek E85Uc5eqUtyHh2wYJHrITD1OT UbtLCrF6MsrG1uQzEkKJYjPYV w O3NncHYdWGixO746SOwfHkF6E AJecyKdX6XeKUFnaLzfEqZ3d4 J9Ns0CBGy5ME12AK73aWZig6W 5 qZS0Q9FgNAImhlbfadnsvFK3V LJwVVCefM25Jy5nkTsyPt8vGN DfIQO8NPPjsOXuI6AxuT8dUoZ j ARPwPJPuA2KryLTbJByxQ026G FmdCmC3PWBzqdNuS8CuYPGumZ hhEyJ8v4T9Qq3SAIKsZJ83HQV 5 oDJ1OU36SK91U2CqCzrdvDSip +PHRhYmxlIHdpZHRoPScxMD ToQdOjzXirDS1eAy4sKZFqHIS v dYokxULpWiFkp3mjVMGhVFqtV U3wyIcfV6ZeiYQ3BSVfm8p8Yu 14D40jT8DfiNK+UWZrcUY3iIQ 0 qX9cQhZuAvP6JScaE436JrMtp QTmOzcjr5fqf5cucDq7UzJ8VD BviyDpeKhnVWU0y6UcMo12Z51 s IHdpZHRoPSIxNSUiIHZhbGlnb a3euD9vRx9+XCAgiLY4uSB9aK 5qVtLoIiF5TOgiV240TiVpjCX v Mzcgn5mku2bauXp8MuOwXMKnl yYvvEmmAFK2j0OgXd91E8JtwB hur7StWaj5hh43rBXvt5G0qJC 9 Q1LiEZYhsdaroRVuvTycEG3cS WXoarvzYHLpaX9gTNHnG0o6Qs HpJoE8BSvoJ6NfyqN4HPWjeWQ g SRevCBP6O33gk5N8GIMtUEBmU YX8gXB9kL1leLgnlyywiNNzhZ oqhbTnlCffPCurDTjdF317XFA v mDzeNCZmpJ7jWJZneYOjfZgqY F2dTJSyusvbIgKIMh2FZtojJV 5XPUiCQZs0U7XzSsa6COGvnLf s QG4iePYjZRkrRc9keNyyoOvpM U2qNTRbrdkcWPLolA8eLGCbdM QbcPwlBC4kVLQmlxtdi842YxB x UVQ3ETLzaBUpQ7UmbO6sWfPmD OWvZBJsR9CdoXAqAFbjA995VB tnWzY5RNFvgjTjE7JtOSGmkVh u OkV2v8K5Pc7qOv9tBB6nQIY0V Q99RB32iWXbz9O7kXB8E4CeAT LusbufhabqxDD9LHBbRCPvxZ2 7 fWXyNMmgQd0on6C6f457AKLsP APrfQ74Xb9umYfqCITtrRAMmQ 2thqjmx7rxjqmoDnKrQHWyBHz 0 OJk6WELnvMseFbVsDFQ6ShF3Q XP6eKQkpY3hpTtlsudnuG1dKn c+AcFwSUBkkqI6S8MxOmy8TIB z sHqgFR7kzTYcFEfmNx1kkWaji DvwJB5nWHPkrjjrMAQtjY5aWD PihFXtyVfcVT5zABAchouxc26 0 DsRhGFF7BGXvvBAyD7PmbS5uL gSvMCEeIQHqY0SgoAFsPOxuR8 55VAxhVtE9GIPnqdQeD0YoELI s nSdyQoA6v9H3Jt6SRJjkJI26G Q74tUOwq1Q2fNV9Y9YiIJIqzd uuemeioYV2WBLhAZQmdZ88rEV k VBncHe7uo1U3v916XAEgALMae I48Pu2bnCdjWZGsvTSVoN3fbd xwx3ibzodjPsMhZLIwHCx2JMh 0 DXXwaBpwYlKpZQQ9PwQ5WDZ1c WXreN0nsDljnmrotI4fAic+T3 O5bNL8oRRkwFfqtNU+EW02lk3 8 P9DqCpooAiq0NCXoHBJ4aBM0j O9yPAAzRLrop7Q1dRP8I6Ljav Xekg7ej8piZRDpTIlyW10lmBT w p1C6WAYdoCH8PTWyuLsnUaGwp G93Oyc+QVPolNxqd0VgIskpn6 ugq7aeiIh0DiCuTOCqdfChdVx u QOX5b8PtUv83O69jOVknXQCsW WBkZZVtRRUvhKltkk5ocM2bHe 8+EBPjgVB2dQP1cD5mAdLgYiJ 2 YCgrP397MnMbsZZmXycmt3cpw 3fmxAw4JuGyQEOizmHvmRpqWS S2h0XrIt57O6UnzQxey0BjQwx 0 lz20yQXwd7P0mSN5F8PnWLVfk axmyQCjvUucLE9aMUKyjxybYS FtoJ7uXWTqW7f8EdGiRqL4XRx u F1CmrhF5QJAskGEhDVIxbCMAr Y8ipfeqd1vyzrmmCaJaURAyZW b5QAr3KAShpMylExPjQRW6JqJ 2 KTW0rVGvhU9gjPvzpizmeW8zS yc+EAc0b2jmeYUvIQ0wlUG0DO 51XG48bRWya6U4pPN3N1RbFDC p ovafvloeaMU0CTPyVSUqlT37L q7xjTatXr4vSZDbMEL6SKJroY FrX4QfsZ0cSeVfLSWpKLSwU8N l sIGpYCuaO773UKloVxI1AYJir yOdX5AvGADznAgtEhN6j0V8Nh 3FLK62CZ34GM19mWHot7J7gFY 9 P9QdKUHfpavlbyrncOL2OEQsX PKfgS21Ip1qkCdrWe8kIKVjPR G0RBYabTQsJ0FbvG4uVaIsRQX w PUOfP8DpfNAgHWgnU946XGfmR dX6HZXufrYiZ4RuIEChtKapXd V8p3F6Sz1POn63LE88DS31uAA g i4K4pTT2U6LyOILrxorqskbow RM3LSIzFHVkiR77Et2xpYawMg 0iVGFcUIU4DBJklHTeJ4DguB4 y YpLwGLToLNCiH4PuhYXbRBojX 280PVoxLbO1XOUjutYiI7YxCF VyeZsnRwA0x5K9Ai2DCGepqdt 8 Y4KeHlqmdYF+KB68AYErEN36v FClmIPmt6cdcKo4KgClSMIiMG I4dCqmKUriy6UnFJAuQ20zqUI w c2U6 (more content not included)... Normal [facility] Consent for Procedure/Surger yon 12-04-2022 Consent for Procedure/Surgery [id number]#1.00CD: 127 Normal [facility] Consent for Procedure/Surgery [id number]#1.00CD: 127 [facility] Consent to Photographon Consent to Photograph [id number]#1.00CD: 127 [facility] Correspondence - Woundon Correspondence - Wound [id number]#1.00CD: 127 [facility] Correspondence - Wound [id number]#1.00CD: 127 [facility] Correspondence - Wound [id number]#1.00CD: 127 [facility] HIPAA Forms Officeon 023 HIPAA Forms Office [id number]#1.00CD: 127 [facility] Nursing Assessment - Woundon 12-04-2022 Nursing Assessment - Wound [id number]#1.00CD:1 27 [facility] Physician Orderon 12-04-2022 Physician Order [id number]#1.00CD:1 27 [facility] Procedure - Woundon 12-04-19 Procedure - Wound [id number]#1.00CD:1 27 [facility] Progress Note - Woundon Progress Note - Wound [id number]#1.00CD:1 27 [facility] Consent for Treatmenton Consent for Treatment [id number]#1.00CD:12 7 [facility] Multi-Wound Charton 12-03-19 Multi-Wound Chart [id number]#1.00CD:1 27 [facility] Correspondence - Woundon Correspondence - Wound [id number]:12 7 [facility] Progress Noteson 07-20-2022 Lap Regulator Authentication Interface Message Text EMERGENCY TRIAGE, TREAT AND TRANSPORT (ET3) DOCUMENTATION OF TELEHEALTH VISIT Date / Time: 07/18/2022 / 1430 Name: Yousif Aguilar : 1945 SSN: [id number] EMS Agency: [facility] [] Verbal consent obtained [] [...] Completed by: Wilfrid Haley MD Normal [employer] Coding Summary.on 02-19-2019 Coding Summary. 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 CNOVon 09-03-2017 CNOV Office Visit (VASSFT) DANIAJEF Tima Choi ([id number]) 1945 MDate Time Provider Eqipoeclaf59/4/17 10:00 AM NEO ROCHA During your visit today, we recorded the following information about you: Pulse Blood pressure Weight 73/minute 142/72 142.9 kgNeo Rocha MD 09/03/2017 10:08 AM [facility] Department of Cardiovascular MedicineOUTPATIENT VISIT DATE September 03, 2017OUTPATIENT VISIT TYPEESTABLISHEDPRTRANSYLVANIA REGIONAL HOSPITALRY CARE PHYSICIAN:Abbie Gtz III, DO257 PAULO SALGUERO [address] [place] [id number]: [phone]: [phone] PHYSICIANAbbie Gtz III, DO257 Paulo Salguero 1[facility] [id number] COMPLAINT:No chief complaint on file.HISTORY OF PRESENT [...] PE and DVT, 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 CT Chest +[id number] DUS LE +Rt femoral and popliteal [id number] DUS LE +Lt popliteal DVTPAST MEDICAL HISTORYDiagnosis [...] kg (315 lb) SpO2 94% BMI 43.93 kg/a4Mwwvzyx appearance: alert and cooperative individual, in no [...] s/p EVLT.Continue with compression, skin moisturizer, leg elevation.eNo Rocha, MDReferring Provider: ABBIE GTZ III [[id number]]Allergies As of Date: 09/03/2017 Noted Allergy ReactionSHELLFISH [...] to improve.Follow-up and Disposition History RecordedEncounter Number: [id number] Status:Closed by NEO ROCHA MD on 09/03/17 Normal [facility] PROGRESSon 09-03-2017 PROGRESS HNO ID: [id number] thor: Neo RochaSerraysae: (none)Author Type: PhysicianType: Progress NotesFiled: 09/03/2017 10:08 AMNote Text:[facility] Department of Cardiovascular MedicineOUTPATIENT VISIT DATE September 03, 2017OUTPATIENT VISIT TYPEESTABLISHEDPRIMARY CARE PHYSICIAN:Abbie Gtz III, DO257 [facility] CENTERNAIDAMI ALDO SALGUERO [address] [place] [address]Vpehc: [phone]: [phone] PHYSICIANAbbie Gtz III, DO257 [place] Aldo Salguero [facility] [id number] COMPLAINT:No chief complaint on file.HISTORY OF PRESENT [...] PE and DVT, 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 CT Chest +[id number] DUS LE +Rt femoral and popliteal [id number] DUS LE +Lt popliteal DVTPAST MEDICAL HISTORYDiagnosis [...] kg (315 lb) SpO2 94% BMI 43.93 kg/i2Ikztnuc appearance: alert and cooperative individual, in no [...] skin moisturizer, leg elevation.Neo Rocha MD Normal [facility] Vital Signs Date Time Vital Sign Value Performing Clinician Facility 10-28-2023 17:16-0500 Heart rate 69 /min Theresa Villalpando [facility] 10-28-2023 17:16-0500 SaO2% (BldA) [Mass fraction] 92 % Theresa Pocos [facility] 10-28-2023 17:16-0500 Diastolic blood pressure 77 mm[Hg] Theresa Pocos [facility] 10-28-2023 17:16-0500 Mean blood pressure 100 mm[Hg] Theresa Pocos [facility] 10-28-2023 17:16-0500 Systolic blood pressure 145 mm[Hg] Theresa Pocos [facility] 10-28-2023 17:16-0500 Respiratory rate 16 /min Theresa Pocos [facility] 10-28-2023 16:09-0500 Heart rate 59 /min Theresa Pocos [facility] 10-28-2023 16:09-0500 SaO2% (BldA) [Mass fraction] 95 % Theresa Pocos [facility] 10-28-2023 16:09-0500 Diastolic blood pressure 82 mm[Hg] Theresa Pocos [facility] 10-28-2023 16:09-0500 Mean blood pressure 95 mm[Hg] Theresa Pocos [facility] 10-28-2023 16:09-0500 Systolic blood pressure 121 mm[Hg] Theresa Pocos [facility] 10-28-2023 16:08-0500 Respiratory rate 16 /min Theresa Pocos [facility] 10-28-2023 15:58-0500 Blood Pressure Location Theresa Pocos [facility] 10-28-2023 15:58-0500 Body temperature 96.98 [degF] Theresa Pocos [facility] 10-28-2023 15:58-0500 Diastolic blood pressure 68 mm[Hg] Theresa Pocos [facility] 10-28-2023 15:58-0500 Heart rate 64 /min Theresa Pocos [facility] 10-28-2023 15:58-0500 Mean blood pressure 88 mm[Hg] Theresa Pocos [facility] 10-28-2023 15:58-0500 Respiratory rate 18 /min Thereas Pocos [facility] 10-28-2023 15:58-0500 SaO2% (BldA) [Mass fraction] 96 % Theresa Pocos [facility] 10-28-2023 15:58-0500 Systolic blood pressure 127 mm[Hg] Theresa Pocos [facility] 10-28-2023 15:46-0500 Blood Pressure Location Theresa Pocos [facility] 10-28-2023 15:46-0500 Mean blood pressure 86 mm[Hg] Theresa Pocos [facility] 10-28-2023 15:46-0500 Respiratory rate 14 /min Theresa Pocos [facility] 10-28-2023 15:41-0500 Blood Pressure Location Theresa Pocos [facility] 10-28-2023 15:41-0500 Mean blood pressure 95 mm[Hg] Theresa Pocos [facility] 10-28-2023 15:41-0500 Respiratory rate 18 /min Theresa Pocos [facility] 10-28-2023 15:31-0500 Body temperature 96.98 [degF] Theresa Pocos [facility] 10-28-2023 11:04-0500 Heart rate 80 /min Theresa Pocos [facility] 10-28-2023 11:02-0500 Respiratory rate 20 /min Theresa Pocos [facility] 10-28-2023 11:02-0500 Body temperature 97.7 [degF] Theresa Pocos [facility] 10-28-2023 11:02-0500 Mean blood pressure 104 mm[Hg] Theresa Pocos [facility] 10-22-2023 12:34-0500 Heart rate 80 /min Theresa Pocos [facility] 10-22-2023 12:34-0500 SaO2% (BldA) [Mass fraction] 94 % Theresa Pocos [facility] 10-22-2023 12:34-0500 Diastolic blood pressure 65 mm[Hg] Theresa Pocos [facility] 10-22-2023 12:34-0500 Mean blood pressure 86 mm[Hg] Theresa Pocos [facility] 10-22-2023 12:34-0500 Systolic blood pressure 130 mm[Hg] Theresa Pocos [facility] 10-22-2023 12:34-0500 Body temperature 97.7 [degF] Theresa Pocos [facility] 10-22-2023 12:34-0500 Respiratory rate 18 /min Theresa Pocos [facility] 10-17-2023 22:14-0500 Diastolic blood pressure 94 mm[Hg] Kaylinn Dokken [facility] 10-17-2023 22:14-0500 Heart rate 82 /min Kaylinn Dokken [facility] 10-17-2023 22:14-0500 Mean blood pressure 121 mm[Hg] Kaylinn Dokken [facility] 10-17-2023 22:14-0500 Respiratory rate 18 /min Kaylinn Dokken [facility] 10-17-2023 22:14-0500 SaO2% (BldA) [Mass fraction] 96 % Kaylinn Dokken [facility] 10-17-2023 22:14-0500 Systolic blood pressure 174 mm[Hg] Kaylinn Dokken [facility] 10-17-2023 21:29-0500 Body temperature 97.7 [degF] Kaylinn Dokken [facility] 10-17-2023 21:29-0500 Diastolic blood pressure 75 mm[Hg] Kaylinn Dokken [facility] 10-17-2023 21:29-0500 Heart rate 80 /min Kaylinn Dokken [facility] 10-17-2023 21:29-0500 Respiratory rate 18 /min Kaylinn Dokken [facility] 10-17-2023 21:29-0500 SaO2% (BldA) [Mass fraction] 98 % Kaylinn Dokken [facility] 10-17-2023 21:29-0500 Systolic blood pressure 162 mm[Hg] Kaylinn Dokken [facility] 10-17-2023 21:14-0500 Body temperature 97.7 [degF] Kaylinn Dokken [facility] 10-17-2023 21:14-0500 Diastolic blood pressure 78 mm[Hg] Bryce Funk [facility] 10-17-2023 21:14-0500 Heart rate 83 /min Brcye Funk [facility] 10-17-2023 21:14-0500 Respiratory rate 18 /min Bryce Funk [facility] 10-17-2023 21:14-0500 SaO2% (BldA) [Mass fraction] 99 % Chantelchapis Funk [facility] 10-17-2023 21:14-0500 Systolic blood pressure 158 mm[Hg] moshe Escalanteen [facility] 02-17-2023 11:00-0400 Body height 177.8 cm Perlita Reno Other [employer] [facility] [employer] Other 02-17-2023 11:00-0400 Body mass index (BMI) [Ratio] 38.31 kg/m2 Perlita Reno Other [employer] Other 02-17-2023 11:00-0400 Body temperature 97.8 [degF] Perlita Reno Other [employer] Other 02-17-2023 11:00-0400 Body weight 121.11 kg Perlita Reno Other [employer] Other 02-17-2023 11:00-0400 Diastolic blood pressure 787 mm[Hg] Perlita Reno Other [employer] Other 02-17-2023 11:00-0400 SaO2% (BldA) [Mass fraction] 97 % Perlita Reno Other [facility] [employer] Other 02-17-2023 11:00-0400 Systolic blood pressure 130 mm[Hg] Perlita Reno Other [employer] [facility] [employer] Other 07-18-2022 14:30-0400 Diastolic blood pressure 65 mm[Hg] Et3 [facility] 07-18-2022 14:30-0400 Heart rate 83 /min Et3 [facility] 07-18-2022 14:30-0400 Respiratory rate 18 /min Et3 [facility] 07-18-2022 14:30-0400 Systolic blood pressure 117 mm[Hg] Et3 [facility] 07-05-2022 13:39-0400 Diastolic blood pressure 67 mm[Hg] [facility] 07-05-2022 13:39-0400 Heart rate 71 /min [facility] 07-05-2022 13:39-0400 Mean blood pressure 88 mm[Hg] [facility] 07-05-2022 13:39-0400 Respiratory rate 18 /min [facility] 07-05-2022 13:39-0400 SaO2% (BldA) [Mass fraction] 99 % [facility] 07-05-2022 13:39-0400 Systolic blood pressure 130 mm[Hg] [facility] 07-05-2022 13:00-0400 Diastolic blood pressure 66 mm[Hg] [facility] 07-05-2022 13:00-0400 Heart rate 69 /min [facility] 07-05-2022 13:00-0400 Mean blood pressure 89 mm[Hg] [facility] 07-05-2022 13:00-0400 SaO2% (BldA) [Mass fraction] 97 % [facility] 07-05-2022 13:00-0400 Systolic blood pressure 135 mm[Hg] [facility] 07-05-2022 12:30-0400 Diastolic blood pressure 63 mm[Hg] [facility] 07-05-2022 12:30-0400 Heart rate 72 /min [facility] 07-05-2022 12:30-0400 Mean blood pressure 84 mm[Hg] [facility] 07-05-2022 12:30-0400 Respiratory rate 18 /min [facility] 07-05-2022 12:30-0400 SaO2% (BldA) [Mass fraction] 93 % [facility] 07-05-2022 12:30-0400 Systolic blood pressure 126 mm[Hg] [facility] 07-05-2022 12:05-0400 Heart rate 76 /min [facility] 07-05-2022 11:50-0400 Body temperature 98.24 [degF] [facility] 07-05-2022 11:50-0400 Heart rate 81 /min [facility] 03-21-2022 08:18-0400 Blood Pressure Location Mitali Carine [facility] 03-21-2022 08:18-0400 Body temperature 97.34 [degF] Mitali Hawk [facility] 03-21-2022 08:18-0400 Diastolic blood pressure 74 mm[Hg] Mitali Hawk [facility] 03-21-2022 08:18-0400 Heart rate 78 /min Mitali Hawk [facility] 03-21-2022 08:18-0400 SaO2% (BldA) [Mass fraction] 96 % Mitali Carine [facility] 03-21-2022 08:18-0400 Systolic blood pressure 122 mm[Hg] Mitali Hawk [facility] Encounters Encounter Date Encounter Type Care Provider Facility Start: 12-22-2023 End: 12-22-2023 ambulatory ADDI POCOS Not Available Start: 11-28-2023 End: 11-28-2023 ambulatory ADDI POCOS Not Available Start: 11-10-2023 End: 11-10-2023 ambulatory ADDI POCOS Not Available Start: 10-28-2023 End: 10-28-2023 ambulatory Addi Pocos [facility] Start: 10-28-2023 End: 10-28-2023 Admission to same day surgery bulpitt Dadi Pocos [facility] Start: 10-27-2023 End: 10-28-2023 ambulatory Abbie Gtz [facility] Start: 10-27-2023 End: 10-27-2023 Patient encounter procedure Abbie Gtz III [facility] Start: 10-22-2023 End: 10-23-2023 ambulatory Addi Pocos [facility] Start: 10-22-2023 End: 10-22-2023 Patient encounter procedure Addi Pocos [facility] Start: 10-20-2023 End: 10-20-2023 ambulatory ADDI POCOS Not Available Start: 10-17-2023 End: 10-18-2023 Emergency department patient visit Bryce Funk Facility:[facility] Start: 10-17-2023 End: 10-17-2023 Emergency department patient visit Bryce Funk [facility] Start: 08-05-2023 End: 08-06-2023 ambulatory Facundo D Dolce Facility:[facility] Start: 07-29-2023 End: 07-30-2023 ambulatory Facundo D Dolce [facility] Start: 07-29-2023 End: 07-29-2023 Patient encounter procedure Facundo Hoffman [facility] Start: 07-22-2023 End: 07-23-2023 ambulatory Facundo D Dolce [facility] Start: 07-14-2023 End: 07-15-2023 ambulatory Facundo D Dolce [facility] Start: 07-14-2023 End: 07-15-2023 Patient encounter procedure Facundo Tima Hoffman [facility] Start: 07-08-2023 End: 07-09-2023 ambulatory Facundo D Dolce [facility] Start: 07-08-2023 End: 07-08-2023 Patient encounter procedure Facundo D Qian [facility] Start: 06-30-2023 End: 07-01-2023 ambulatory Facundo D Dolce Facility:[facility] Start: 06-30-2023 End: 06-30-2023 Patient encounter procedure Facundo Tima Hoffman [facility] Start: 06-24-2023 End: 06-25-2023 ambulatory Facundo D Dolce [facility] Start: 06-17-2023 End: 06-18-2023 ambulatory Facundo D Dolce [facility] Start: 06-17-2023 End: 06-17-2023 Patient encounter procedure Facundo D Qian [facility] Start: 06-10-2023 End: 06-11-2023 ambulatory Stephen R Bhartice Facility:[facility] Start: 06-10-2023 End: 06-10-2023 Patient encounter procedure Stephen R Bhartijames [facility] Start: 06-02-2023 End: 06-03-2023 ambulatory Facundo Hoffman Facility[facility] Start: 06-02-2023 End: 06-03-2023 Pre-admission assessment Facundo Hoffman [facility] Start: 05-27-2023 End: 05-28-2023 ambulatory Stephen R Bhartice Facility:[facility] Start: 05-27-2023 End: 05-27-2023 Patient encounter procedure Stephen R Bhartijames [facility] Start: 05-20-2023 End: 05-21-2023 ambulatory Facundo Hoffman [facility] Start: 05-20-2023 End: 05-20-2023 Patient encounter procedure Facundo Hoffman [facility] Start: 05-15-2023 End: 05-16-2023 ambulatory Facundo Hoffman [facility] Start: 05-15-2023 End: 05-15-2023 Patient encounter procedure Facundo Hoffman [facility] Start: 05-06-2023 End: 05-07-2023 ambulatory Facundo Hoffman [facility] Start: 05-06-2023 End: 05-06-2023 Patient encounter procedure Facundo Hoffman [facility] Start: 04-23-[address] FACUNDO HOFFMAN Facility: Start: 04-22-2023 End: 04-23-2023 ambulatory Facundo Hoffman [facility] Start: 04-15-2023 End: 04-16-2023 ambulatory Facundo Hoffman [facility] Start: 04-08-2023 End: 04-09-2023 ambulatory Facundo Hoffman [facility] Start: 04-08-2023 End: 04-08-2023 Patient encounter procedure Facundo Hoffman [facility] Start: 04-02-2023 End: 04-03-2023 ambulatory Stephen R Dolce Facility:[facility] Start: 04-02-2023 End: 04-02-2023 Patient encounter procedure Stephen Hoffman [facility] Start: 03-25-2023 End: 03-26-2023 ambulatory Facundo Alfred Doljames Facility:[facility] Start: 03-17-2023 End: 03-19-2023 ambulatory Facundo Alfred Dolce [facility] Start: 03-11-2023 End: 03-12-2023 ambulatory Facundo Hayce Facility[facility] Start: 03-11-2023 End: 03-11-2023 Patient encounter procedure Facundo Hoffman [facility] Start: 03-04-2023 End: 03-05-2023 ambulatory Facundo Hayjames Facility:[facility] Start: 03-04-2023 End: 03-04-2023 Patient encounter procedure Facundo Hoffman [facility] Start: 02-27-2023 End: 02-27-2023 ambulatory Perlita Ramesho Facility:[facility] Start: 02-27-2023 End: 02-27-2023 ambulatory DO Abbie R Gtz III Work Phone: [facility] Work Phone: Start: 02-27-2023 End: 02-27-2023 Patient encounter procedure DO Abbie Gtz III Work Phone: [facility] Work Phone: Start: 02-24-2023 End: 02-25-2023 ambulatory Facundo Hayjames Facility[place] Start: 02-24-2023 End: 02-24-2023 Patient encounter procedure Facundo Hoffman [facility] Start: 02-18-2023 End: 02-19-2023 ambulatory Facundo Hayjames Facility:[facility] Start: 02-18-2023 End: 02-18-2023 Patient encounter procedure Facundo Hoffman [facility] Start: 02-17-2023 End: 02-17-2023 ambulatory Perlita Reno Other [facility] [employer] Other Start: 02-17-2023 [facility] visit new patient Perlita Ramesh nasir [facility] Start: 02-11-2023 End: 02-12-2023 ambulatory Facundo D Dolce Facility:[facility] Start: 02-04-2023 End: 02-05-2023 ambulatory Facundo D Dolce Facility:[facility] Start: 02-04-2023 End: 02-04-2023 Patient encounter procedure Facundo Hoffman [facility] Start: 01-28-2023 End: 01-29-2023 ambulatory Facundo D Dolce Facility:[facility] Start: 01-28-2023 End: 01-29-2023 ambulatory Facundo D Dolce [facility] Start: 01-28-2023 End: 01-28-2023 Patient encounter procedure Facundo Hoffman [facility] Start: 01-21-2023 End: 01-22-2023 ambulatory Facundo D Dolce Facility[facility] Start: 01-21-2023 End: 01-21-2023 Patient encounter procedure Facundo Hoffman [facility] Start: 01-15-2023 End: 01-22-2023 Pre-admission assessment Facundo Hoffman [facility] Start: 01-14-2023 End: 01-15-2023 ambulatory Facundo D Dolce Facility:[facility] Start: 01-14-2023 End: 01-14-2023 Patient encounter procedure Facundo Hayjames [facility] Start: 01-07-2023 End: 01-08-2023 ambulatory Facundo D Dolce Facility:[facility] Start: 01-07-2023 End: 01-07-2023 Patient encounter procedure Facundo Hayjames [facility] Start: 12-31-2022 End: 01-01-2023 ambulatory Facundo D Dolce Facility:[facility] Start: 12-31-2022 End: 12-31-2022 Patient encounter procedure Facundo Hoffman [facility] Start: 12-27-2022 End: 12-28-2022 ambulatory Facundo Hoffman Facility[facility] Start: 12-27-2022 End: 12-27-2022 Patient encounter procedure Facundo Hoffman [facility] Start: 12-24-2022 End: 12-25-2022 ambulatory Facundo Hoffman Facility[facility] Start: 12-24-2022 End: 12-24-2022 Patient encounter procedure Facundo Hoffman [facility] Start: 12-17-2022 End: 12-18-2022 ambulatory Facundo Hoffman Facility[facility] Start: 12-10-2022 End: 12-11-2022 ambulatory Facundo Hoffman Facility[facility] Start: 12-10-2022 End: 12-10-2022 Patient encounter procedure Facundo Hoffman [facility] Start: 12-03-2022 End: 12-04-2022 ambulatory Facundo Hoffman Facility[facility] Start: 12-03-2022 End: 12-03-2022 Patient encounter procedure Facundo Hoffman [facility] Start: 10-23-2022 End: 10-31-2022 ambulatory UNKNOWN PROVIDER Facility:[facility] Start: 07-20-2022 End: 07-22-2022 ambulatory UNKNOWN PROVIDER Facility:[facility] Start: 07-18-2022 End: 07-18-2022 [facility] Start: 07-18-2022 End: 07-18-2022 Emergency department patient visit [facility] Triage, Treat and Transport Comment on above: Arrived Start: 07-05-2022 End: 07-05-2022 Emergency department patient visit Itz Lauren [facility] Start: 03-21-2022 End: 03-21-2022 Patient encounter procedure Mitali Hawk [facility] Start: 02-23-2019 Patient encounter procedure Zakia Buck Facility:[facility] Start: 01-01-2019 End: 01-02-2019 Patient encounter procedure Stephen Hoffman Facility:[facility] Start: 09-03-2017 End: 09-04-2017 Ambulatory NEO ROCHA [facility] Procedures Date Procedure Procedure Detail [...] t blood in single stool specimen FIT [facility] Start[facility] Hep[facility] C screening Hepatitis C An tibody [facility] Start: 1965 Tetanus + diphtheria + acellular pertussis vaccine (product) Tdap Booster [facility] Immunizations Immunization Date Immunization Notes Care Provider Hanny macias 08-31-2021 influenza virus vaccine, unspecified formulation Mitali Menendezmetz [facility] 02-02-2021 zoster vaccine recombinant [facility] 09-05-2020 influenza, high dose seasonal, preservative-free [facility] 09-05-2020 influenza virus vaccine, unspecified formulation [facility] 10-15-2019 influenza, high dose seasonal, preservative-free [facility] 09-10-2018 influenza, injectabl e, quadrivalent, preservative free [facility] 09-29-2017 influenza, injectabl e, quadrivalent, preservative free [facility] 09-25-2016 influenza, injectabl e, quadrivalent, preservative free [facility] 03-28-2016 pneumococcal conjuga te vaccine, 13 valent [facility] 09-21-2015 influenza, seasonal, injectable [facility] 12-27-2013 pneumococcal conjuga te vaccine, 13 valent [facility] Payers Date Payer Category Payer Self-pay 2022 Medicaid [id number] 2021 Unknown [id number] 2021 Unknown 2021 Medicare [employer] MEDICARE [employer] CHOICE PPO/HMO [id number] 2021-Present [employer] CLAIMS OFFICE [address] [address] [place] [address] PPO [id number] 2018 Unknown [id number] 1947 Unknown [id number] 1947 Unknown [id number] 1947 Unknown [id number] [id number] 1945 Unknown [id number] [id number] 1947 Unknown [id number] [id number] 1947 Unknown [id number] 2.16.840.1.731426.3.579.2. 1947 Unknown [id number] [id number] 1947 Unknown [id number] 2.16.840.1.489994.3.579.2 1947 Unknown [id number] [id number] 1947 Unknown [id number] 2.16.840.1.922654.3.579.2 1947 Unknown [id number] 2.16.840.1.336266.3.579.272 1945 Unknown [id number] 2.16.840.1.438542.3.579.2 1945 Unknown [id number] 2.16.840.1.421297.3.579.2.72 1945 Unknown [id number] 2.16.840.1.060697.3.579.2 1945 Unknown [id number] 2.16.840.1.972139.3.579.272 1945 Unknown [id number] 2.16.840.1.099979.3.579.2 1945 Unknown [id number] 2.16.840.1.500670.3.579.2. 1945 Unknown [id number] 2.16.840.1.833989.3.579.2 1945 Unknown [id number] 2.16.840.1.694973.3.579.2 1945 Unknown [id number] 2.16.840.1.174790.3.579.2 1945 Unknown [id number] 2.16.840.1.456323.3.579.2 1945 Unknown [id number] 2.16.840.1.617255.3.579.2 1945 Unknown [id number] 2.16.840.1.852967.3.579.2 1945 Unknown [id number] 2.16.840.1.104330.3.579.2 1945 Unknown [id number] 2.16.840.1.303764.3.579.2 1945 Unknown [id number] 2.16.840.1.423009.3.579.2 1945 Unknown [id number] 2.16.840.1.676188.3.579.2 1945 Unknown [id number] 2.16.840.1.547314.3.579.2 1945 Unknown [id number] 2.16.840.1.064868.3.579.2 1945 Unknown [id number] 2.16.840.1.545108.3.579.2 1945 Unknown [id number] 2.16.840.1.033961.3.579.2 1945 Unknown [id number] 2.16.840.1.432382.3.579.2. 1945 Unknown [id number] 2.16.840.1.162890.3.579.2 1945 Unknown [id number] 2.16.840.1.508181.3.579.2 1945 Unknown [id number] 2.16.840.1.722957.3.579.2 1945 Unknown [id number] 2.16.840.1.739189.3.579.2 1945 Unknown [id number] 2.16.840.1.156866.3.579. 1945 Unknown [id number] 2.16.840.1.836875.3.579.2 1945 Unknown [id number] 2.16.840.1.260645.3.579.2 1945 Unknown [id number] 2.16.840.1.739542.3.579.2 1945 Unknown [id number] 2.16.840.1.793782.3.579.2 1945 Unknown [id number] 2.16.840.1.040182.3.579.2 1945 Unknown [id number] 2.16.840.1.169565.3.579.2 1945 Unknown [id number] 2.16.840.1.608749.3.579.2 1945 Unknown [id number] 2.16.840.1.723153.3.579.2 1945 Unknown [id number] 2.16.840.1.978144.3.579.2 1945 Unknown [id number] 2.16.840.1.996717.3.579.2.1259 1945 Unknown [id number] 2.16.840.1.810862.3.579.2.1259 1947 Unknown [id number] 2.16.840.1.227274.3.579.2.1259 1947 Unknown [id number] 2.16.840.1.467124.3.579.2.1259 1947 Unknown [id number] 2.16.840.1.297957.3.579.2.1259 1947 Unknown [id number] 2.16.840.1.399973.3.579.2.1259 1945 Unknown [id number] 2.16.840.1.011196.3.579.2.1259 Unknown Stacey NOLEN/SARAH [id number] Unknown [id number] 2.16.840.1.223896.3.579.2.531 Social History Date Type Detail Facility Start: 03-21-2022 Tobacco smoking status Ex-smoker (finding) [facility] Tobacco smoking status Never [facility] Sex Assigned At Male [facility] Tobacco smoking status [facility] Tobacco smoking consumption unknown [facility] Start: 1945 Sex Assigned At Not on file [facility] Start: 1945 Sex Assigned At Male [facility] Medical Equipment Procedure Code Equipment Code Equipment Origin al Text Equipment Identifier Dates ELBOW FRACTURE O RIF [facility] DOTheresa A 10/28/23 Unknown Elbow R FDA Start: 10-28-2023 ELBOW FRACTURE O RIF [place] DOTheresa 10/28/23 Unknown Elbow R FDA Start: 10-28-2023 Functional Status Date Assessment Result Facility 10-22-2023 Functional Status No [facility] 10-17-2023 Functional Status N/A [facility] 07-05-2022 Functional Status N/A [facility] Clinical Notes 03-21-2022 to 10-28-2023 Note Date & Type Note Facility 10-28-2023 Hospital Discharg e instructions Patient Education 10/28/2023 16:52:15 Post Op Patient Instructions - FT (Custom) (CUSTOM) 10/27/2023 07:36:07 [facility] - Home Care Instructions (Custom) [place], [place] [facility] OUTPATIENT SURGERY Home Care [...] not drive. Theresa Villalpando, DO [facility] [address] [place] [address] [phone] Reviewed: 03-08 Follow Up Care 10/20/2023 14:32:22 With:Theresa Villalpando Address: [address] [place] [phone]- Business (1) When:11/10/2023 14:30:00 Comments:Appointment has already been scheduled [facility] 10-27-2023 Note [id number]#1.00TIFF [facility] 10-18-2023 Hospital Discharg e instructions Patient [...] Follow these instructions at home: Medicines Take kadm-hna-atedwna and prescription medicines only as told by your health care provider. Ask your health care provider if the medicine prescribed to you: ?Requires you to avoid driving or using heavy machinery. ?Can cause constipation. You may need to take actions to prevent or treat constipation, such as: ?Drink enough fluid to keep your urine pale yellow. ?Take qwou-lsc-iacvudz or prescription medicines. ?Eat foods that are [...] provider. Document Revised: 02/14/2022 Document Reviewed: 02/14/2022 [employer] Patient Education 2022 [employer] Follow Up Care 10/17/2023 21:14:35 With:Theresa Villalpando Address: [address] [place], [place] [id number] Business (1) When:10/20/2023 Comments:You can use the pain medication every 6 hours as needed for pain. Please follow-up with your primary care doctor addition to orthopedics for further evaluation management. Please return to the ED for any new or worsening symptoms. With:Abbie Gtz Address: [address] [place] [address] [place] [address]- Business (1) When:Within 3 Day(s) [facility] 10-17-2023 Evaluation + Plan note Extrac krystal from: Title:ED Note Author:Bryce Funk DO Date :10/17/23 Olecranon fracture (S52.023A : Displaced fracture of olecranon process without intraarticular extension of unspecified ulna, initial encounter for closed fracture) Orders: acetaminophen-hydrocodone, 1 tab(s), Oral, q6hr for pain for 3 day(s), 10 tab(s), Refill(s) 0, [facility] 1985, 177.8, cm, 10/17/23 21:21:00 EST, Height/Length Dosing, 133.1, kg, 10/17/23 21:21:00 EST, Weight Dosing Sling Apply XR Elbow 3+ Views Right [facility]03-20-2023 Evaluation note* Encounter Date Diagnosis Assessment [...] with this plan, and denies any questions. [employer] Other 08-20-2022 History of Present illness Narrative* Wilfrid Haley MD - 07/20/2022 8:23 AM EDT Images from the original note were not included. EMERGENCY TRIAGE, TREAT AND TRANSPORT (ET3) DOCUMENTATION OF TELEHEALTH VISIT Date / Time: 07/18/2022 / 1430 Name: Yousif Aguilar : 1945 SSN: [id number] EMS Agency: [facility] [] Verbal consent obtained [] [...] by: Wilfrid Haley MD documented in this [id number] Hospital Discharge instructions Patient Education 07/05/2022 13:44:46 [...] activities that cause pain. General instructions Take iwxq-kme-xogrifp and prescription medicines only as told by [...] 05/07/2011 Document Revised: 04/03/2020 Document Reviewed: 04/03/2020 [employer] Patient Education 2019 [employer] Follow Up Care 07/05/2022 11:49:47 With:Abbie Gtz Address: [address] [place] [address] [facility] [address] [facility] (1) When:07/08/2022 13:33:40 [facility]08-05-2022 Evaluation + Plan noteExtracted from: Title:ED [...] XR Hip 2-3 Views Right + Pelvis [facility]04-21-2022 Hospital Discharge instructions Patient Education 03/21/2022 [...] 08/13/2005 Document Revised: 03/04/2019 Document Reviewed: 03/04/2019 [employer] Patient Education [facility] [employer] Follow Up Care 03/05/2022 13:23:06 With:Mitali Hawk CNP Address: When:1 year only if needed [facility] Evaluation + Plan note No data available for this section [facility] Evaluation + Plan note Future Appointments Appointment Date:12/10/2022 10:00:00 AM Scheduled Provider: [facility] Appointment Type:WC Assessment (FT) Appointment Date:12/17/2022 01:45:00 PM Scheduled Provider:Facundo Hoffman DPM [facility] Appointment Type:WC [facility] Future Appointments Appointment Date:12/17/2022 01:45:00 PM Scheduled Provider:Facundo Hoffman DPM [facility] Appointment Type:WC [facility] Future Appointments Appointment Date:12/31/2022 10:30:00 AM Scheduled Provider: [facility] Appointment Type:WC Assessment (FT) Appointment Date:01/07/2023 01:45:00 PM Scheduled Provider:Facundo Hoffman DPM [facility] Appointment Type:WC [facility] Future Appointments Appointment Date:12/31/2022 01:30:00 PM Scheduled Provider: [facility] Appointment Type:WC Assessment (FT) Appointment Date:01/07/2023 01:45:00 PM Scheduled Provider:Facundo Hoffman DPM [facility] Appointment Type:WC [facility] Future Appointments Appointment Date:01/07/2023 01:45:00 PM Scheduled Provider:Facundo Hoffman DPM [facility] Appointment Type:WC [facility] Future Appointments Appointment Date:01/14/2023 02:30:00 PM Scheduled Provider:Facundo Hoffman DPM [facility] Appointment Type:WC Follow Up Visit (FT) [facility] + Plan note Future Appointments Appointment Date:01/21/2023 03:30:00 PM Scheduled Provider:Facundo Hoffman DPM [facility] Appointment Type:WC [facility] (FT[facility] Future Appointments Appointment Date:01/28/2023 03:30:00 PM Scheduled Provider:Facundo Hoffman DPM [facility] Appointment Type:WC Follow Up Visit (FT) Appointment Date:02/11/2023 01:30:00 PM Scheduled Provider:Facundo Hoffman DPM [facility] Appointment Type:WC [facility] Future Appointments Appointment Date:02/04/2023 01:45:00 PM Scheduled Provider:Facundo Hoffman DPM [facility] Appointment Type:WC Follow Up Visit (FT) Appointment Date:02/11/2023 01:30:00 PM Scheduled Provider:Facundo Hoffman DPM [facility] Appointment Type:WC [facility] Future Appointments Appointment Date:02/11/2023 01:30:00 PM Scheduled Provider:Facundo Hoffman DPM [facility] Appointment Type:WC [facility]FT[facility] Future Appointments Appointment Date:02/25/2023 11:30:00 AM Scheduled Provider: [facility] Appointment Type:WC Assessment (FT) Appointment Date:03/04/2023 01:15:00 PM Scheduled Provider:Facundo Hoffman DPM [facility] Appointment Type:WC [facility] Future Appointments Appointment Date:03/04/2023 01:15:00 PM Scheduled Provider:Facundo Hoffman DPM [facility] Appointment Type:WC [facility]FT[facility] Future Appointments Appointment Date:03/11/2023 11:00:00 AM Scheduled Provider: [facility] Appointment Type:WC Assessment (FT) Appointment Date:03/17/2023 01:30:00 PM Scheduled Provider: [facility] Appointment Type:WC Assessment (FT) Appointment Date:03/25/2023 02:00:00 PM Scheduled Provider:Facundo Hoffman DPM [facility] Appointment Type:WC [facility] (FT[facility] Future Appointments Appointment Date:03/17/2023 01:30:00 PM Scheduled Provider: [facility] Appointment Type:WC Assessment (FT) Appointment Date:03/25/2023 02:00:00 PM Scheduled Provider:Facundo Hoffman DPM [facility] Appointment Type:WC [facility]FT[facility] Future Appointments Appointment Date:04/08/2023 01:45:00 PM Scheduled Provider:Facundo Hoffman DPM [facility] Appointment Type:WC [facility] (FT) [facility] Future Appointments Appointment Date:04/15/2023 02:15:00 PM Scheduled Provider:Facundo Hoffman DPM [facility] Appointment Type:WC [facility] (FT) [facility] Future Appointments Appointment Date:05/15/2023 10:00:00 AM Scheduled Provider: [facility] Appointment Type:WC Assessment (FT) Appointment Date:05/20/2023 01:45:00 PM Scheduled Provider:Facundo Hoffman DPM [facility] Appointment Type:WC [facility]FT[facility] Future Appointments Appointment Date:05/20/2023 03:15:00 PM Scheduled Provider:Facundo Hoffman DPM [facility] Appointment Type:WC [facility]FT[facility] Future Appointments Appointment Date:06/02/2023 08:30:00 AM Scheduled Provider: [facility] Appointment Type:WC Assessment (FT) Appointment Date:06/10/2023 03:00:00 PM Scheduled Provider:Facundo Hoffman DPM [facility] Appointment Type:WC [facility] (FT) [facility] Future Appointments Appointment Date:06/10/2023 03:00:00 PM Scheduled Provider:Facundo Hoffman DPM [facility] Appointment Type:WC [facility]FT[facility] Future Appointments Appointment Date:06/24/2023 03:00:00 PM Scheduled Provider:Facundo Hoffman DPM [facility] Appointment Type:WC [facility] (FT) [facility] Future Appointments Appointment Date:07/08/2023 01:45:00 PM Scheduled Provider:Facundo Hoffman DPM [facility] Appointment Type:WC [facility] (FT) [facility] Future Appointments Appointment Date:07/14/2023 09:00:00 AM Scheduled Provider: [facility] Appointment Type:WC Assessment (FT) Appointment Date:07/22/2023 02:00:00 PM Scheduled Provider:Facundo Hoffman DPM [facility] Appointment Type:WC [facility] (FT) [facility] Future Appointments Appointment Date:07/22/2023 02:00:00 PM Scheduled Provider:Facundo Hoffman DPM [facility] Appointment Type:WC [facility] (FT) [facility] Future Appointments Appointment Date:08/05/2023 02:00:00 PM Scheduled Provider:Facundo Hoffman DPM [facility] Appointment Type:WC [facility] (FT) [facility] Future Appointments Appointment Date:10/28/2023 02:00:00 PM Scheduled Provider: Location:[facility] Appointment Type:Surgery FT [facility]* Diagnosis Fall in home, initial encounter- Primary documented in [facility] Phone: History general Narrative - Reported* Type Description Date Medical History high cholesterol Medical History Blood clots Surgical History hand and leg surgery 1974 Surgical History jaw wiring Surgical History elbow surgery Surgical History appendectomy Surgical History wrist surgery right hand Hospitalization History see above [facility] Other Hospital Discharge instructions No data available for this section [facility] No data available for this section [facility] Summary Purpose Family History No Family [...] section and content) DATE CREATED AUTHOR 05/27/2018 [facility] DATE CREATED AUTHOR AUTHOR'S ORGANIZ ATION 02/25/2019 [facility] DATE CREATED AUTHOR AUTHOR'S ORGANIZ ATION 11/01/2022 [facility] DATE CREATED AUTHOR AUTHOR'S ORGANIZ ATION 03/15/2023 [facility] DATE CREATED AUTHOR AUTHOR'S ORGANIZ ATION 04/09/2023 [facility] DATE CREATED AUTHOR AUTHOR'S ORGANIZ ATION 11/05/2023 [facility] DATE CREATED AUTHOR AUTHOR'S ORGANIZ ATION 12/22/[address] [facility] d[facility] Specialists EPIC Care Team (unrecognized [...] BE BASED ON THE PRIMARY CLINICAL RECORDS. [employer] provides no warranty or guarantee of the accuracy or completeness of information in this document.
== END 2024-02-03 09:43 | disposition home or self-care (01) ==
LOC: VC 09:42
PROVIDERS: PCP Radiology Diagnostic Radiology; Visit Provider Radiology Diagnostic Radiology
DX: I80.02 Phlebitis and thrombophlebitis of superficial vessels of left lower extremity (principal)
CPT/HCPCS: 93971; G0463

== ENCOUNTER 2024-02-11 10:51 | Outpatient (OUT) | payer OTHER, MEDICAID, SELFPAY ==
--- NOTE | 2024-02-11 10:54 | VEIN_ITS ---
The [address] [address] Patient Name: YOUSIF NAJERA MRN: [id number] date: 1945 Sex: M Assigned Patient Location: Current Patient Location: Accession/Order Number: [id number] Exam Date: 02/11/2024 11:10 Report Date: 02/11/2024 12:07 At the request of: THERESA DE DIOS Procedure: VC INJ Foam Sclerosant WUS OPERATIONS SUPERINTENDENT PROCEDURE: VC INJ Foam Sclerosant WUS OPERATIONS SUPERINTENDENT HISTORY: I83.813 Bilateral painful varicose veins Pre-operative Diagnosis: CEAP class C6 venous insufficiency with pain, tenderness, edema and incompetent branch saphenous vein(s), chronic venous insufficiency right leg secondary to venous incompetence Post-operative Diagnosis: CEAP class C6 venous insufficiency with pain, tenderness, edema and incompetent branch saphenous vein(s), chronic venous insufficiency right leg secondary to venous incompetence Procedure Performed: 1. Ultrasound-guided microfoam chemical ablation with Varithenaregistered 2. Intraoperative ultrasound guidance Physician: Cali Tanner M.D. Anesthesia: None Indications for Procedure: 78 year old male. Symptoms including chronic skin changes, nonhealing wounds, lower extremity swelling, pain, dilated bulging veins for many years despite conservative medical therapy including medical compression stockings, exercise and analgesics. Prior procedures include endovenous laser ablation and microfoam chemical ablation. Multiple incompetent varicosities of the right leg. Duplex scan showed reflux and enlarged diameters up to 5 mm. The patient underwent informed consent including management options where the complications of infection, bleeding, pain, and skin injury were discussed. Particular attention was spent discussing thrombus extension and deep vein thrombosis as well as the possibility of pulmonary embolus and treatment with oral or injectable blood thinners. Procedure: The patient walked to the procedure room. All applicable staff donned appropriate apparel. A procedure timeout was performed to confirm correct patient, correct extremity, correct procedure, and correct room set-up including presence of all applicable supplies, devices, and drugs. A duplex ultrasound, performed by myself confirmed the location and incompetence of branch saphenous varicosities and their course was marked on the skin together with the dilated tributaries. The extent of treatment of the vein and the associated varicosities was determined through ultrasound mapping. The skin was prepped and then punctured with a butterfly needle and advanced under ultrasound guidance. The Varithenaregistered canister was activated and the canister was primed and purged as required in the instructions for use. Varithenaregistered was drawn into a sterile syringe. Varithenaregistered was slowly administered at 0.5-1.0 cc/second with close observation by ultrasound of its course in the vessels. Total volume utilized was: 14 mL (7 mL into a 4 mm area, city distal medial lower leg; a 7 mL into a 5 mm varicosity distal anterior lower leg). Following administration of Varithenaregistered the leg was elevated and the patient was asked to repeatedly dorsiflex the ankle to limit flow of Varithenaregistered into perforating veins. Once appropriate spasm had been confirmed in the treated veins, the vascular catheter was removed from the leg and light pressure was applied over the puncture site for hemostasis. The common femoral and deep superficial veins were then evaluated for flow and compressibility prior to dressing placement. The lower extremity was kept elevated at 45 degrees above the horizontal and cording material was applied over the saphenous segments and tributaries to allow for eccentric compression over the target vessels including the targeted saphenous vein(s). A multilayer dressing was applied consisting of foam pads, coban and thigh-high 20-30 mm Hg compression elastic support hose were placed on the patient. The leg was lowered only after compression had been applied and the patient was immediately ambulatory. The patient ambulated 10 minutes under supervision and was without apparent concerns at time of release. Post-care instructions include advising patient to keep post-treatment bandages in place and dry for 48 hours, avoid extended periods of inactivity, avoid heavy exercise for one week, wear compression stockings on the treated leg continuously for two weeks, to walk daily for 10 minutes over the next month. The patient was instructed to take an anti-inflammatory medicine as needed and to follow up for color duplex scan of the Saphenous veins, the treated branch saphenous varicosities, the adjacent deep veins, and additional treatment within 7 days. PERSONNEL: Deandre Lechuga RN Electronically authenticated by: CALI TANNER Date: 02/11/2024 12:07
--- OUTSIDE RECORDS SUMMARY | 2024-02-11 10:57 | XMS_ITS | CCD ---
Author Name Unknown Address [address] [place] [address] Organization [facility] Care Team Providers Care Waterproof Bag Cutting Machine Operator Name Role Phone NEO ROCHA Unavailable Unavailable GTZ III, ABBIE R Unavailable Unavailabl e Dolce, Stephen R. Admitting Unavailable Dolce, Stephen R. Attending Unavailable Gtz, Abbie Primary Care Unavailable HeberZakia Admitting Unavailable HeberZakia Attending Unavailable Gtz, Abbie Primary Care Unavailable Gtz III, Abbie R Primary Care Physician [phone] Unavailable Primary Care Provider Unavailabl e PROVIDER, [...] Pocos, Theresa Montgomery Referring Unavailable Pocos, Theresa Montogmery Attending Unavailable Pocos, Theresa Montgomery Admitting Unavailable [...] [IODINE] Drug Allergy 6 Unknown (qualifier value) [facility] Repository (20 sources) Penicillins; Translations: [PENICILLINS] Propensity to adverse reactions to drug (disorder) 6 Unknown (qualifier value) [facility] Repository (1 source) SHELLFISH CONTAINING PRODUCTS; Translations: [SHELLFISH CONTAINING PRODUCTS] Propensity to adverse reactions to drug (disorder) 7 AOF [facility] Repository (20 sources) Shellfish; Translations: [shellfish] Propensity to adverse reactions (disorder) Pharyngeal swelling (finding), Difficulty breathing (finding) [facility] Repository (5 sources) Contrast media; Translations: [Contrast Dye] Propensity to adverse reactions Dizziness (finding) [facility] (1 source) Penicillin Drug Allergy rash Petrabytes Other (1 source) Shellfish Drug allergy Unknown Petrabytes Other (1 source) Penicillins; Translations: [penicillins] Drug allergy Unknown (qualifier value) [facility] Comment on above: as a child Medications Current Medications Medication Drug Class(es) Dates Sig (Normalized) Sig (Original) acetaminophen 325 mg / HYDROcodone bitartrate 5 mg oral tablet (2 sources) Opioid Agonist Start: 10-28-2023 Ladysmith 325 mg-5 mg oral tablet See Instructions, for pain, 40 tab(s), Refill(s) 0, 1 - 2 po q4-6h prn pain Dx: S52.031D Duration: 7 days, [id number], 177, cm, 10/22/23 12:25:00 EST, Height/Length Dosing, 132.5, kg, 10/22/23 12:25:00 EST, Weight Dosing Start Date: 10/28/23 Status: Ordered Start: 10-17-2023 End: 10-20-2023 take 1 tablet by mouth every six hours for pain Ladysmith 325 mg-5 mg oral tablet 1 tab(s), Oral, q6hr for pain for 3 day(s), 10 tab(s), Refill(s) 0, [facility] 1985, 177.8, cm, 10/17/23 21:21:00 [...] constipation, # 40 cap(s), Refills(s) 0, Pharmacy: [facility]/pharmacy #6173, 177, cm, 10/22/23 12:25:00 EST, Height/Length [...] Facility IntraOperative Documentson 1 01-04-2023 IntraOperative Documents [id number]#1.00TIFF [facility] Progress Note-Physicianon Progress Note-Physician Patient: YOUSIF AGUILAR Age: 77 years Sex: Male : 1945 Associated Diagnoses: None Author: MD Rudd Ahmad F Postoperative Information Postoperative disposition: Postoperative disposition: To PACU. Optimetrix number: Optimetrix number [id number]. Anesthetic utilized: General. Health Status Allergies: Allergic [...] when meets criteria ( To home ). [facility] Comment on above: Result Comment: Elec tronically [...] constipation, # 40 cap(s), Refills(s) 0, Pharmacy: [facility]/pharmacy #6173, 177, cm, 10/22/23 12:25:00 EST, Height/Length Dosing, 132.5, kg, 10/22/23 12:25:00 EST, Weight Dosing Ladysmith 325 mg-5 mg oral tablet: See Instructions, for pain, 40 tab(s), Refill(s) 0, 1 - 2 po q4-6h prn pain Dx: S52.031D Duration: 7 days, [facility]pharmacy #6173, 177, cm, 10/22/23 12:25:00 EST, Height/Length [...] Problems High blood pressure / SNOMED CT 1430263231 / Confirmed Hypercholesterolemia / ICD-9-CM 272.0 / Confirmed Lymphedema / SNOMED CT 14958379 / Confirmed 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 / SNOMED CT 877386419 / Confirmed History of colon polyps / SNOMED CT 8132419586 / Confirmed Colon polyp / SNOMED CT 278317274 / Confirmed Diverticulosis / SNOMED CT 7997225082 / Confirmed Hemorrhoids / SNOMED CT 836936102 / Confirmed Extreme obesity / SNOMED CT 93L10353-4MV3-09B9-V487-1 F2ES60AIIWJ / Possible Resolved: DVT / SNOMED CT 324498323 Resolved: PE - Pulmonary embolism / SNOMED CT 2199866756 Resolved: Stasis dermatitis co-occurrent with venous ulcer of right lower extremity due to chronic peripheral venous hypertension / SNOMED CT 541363177438688 Resolved: Stasis dermatitis of left lower extremity due to peripheral venous hypertension / SNOMED CT 896835169635257 Resolved: Stasis dermatitis of right lower extremity due to peripheral venous hypertension / SNOMED CT 613219197713981 Resolved: Stasis dermatitis and venous ulcer of left lower extremity due to chronic peripheral venous hypertension / SNOMED CT 953229935019838 Histories Past Medical History: Active Hypercholesterolemia (272.0) Lymphedema (94715913) Resolved PE - Pulmonary embolism (4444657506): Onset on 12/01/2005 at 60 years. Resolved. DVT (964028375): Resolved. Stasis dermatitis co-occurrent with venous ulcer of right lower extremity due to chronic peripheral venous hypertension (743724945027136): Resolved. Stasis dermatitis of left lower extremity due to peripheral venous hypertension (259134411868206): Resolved. Stasis dermatitis of right lower extremity due to peripheral venous hypertension (866231544170616): Resolved. Stasis dermatitis and venous ulcer of left lower extremity due to chronic peripheral venous hypertension (487628707841325): Resolved. Family History: Hyperlipidemia Mother Heart disease Father Non Hodgkin's lymphoma Mother Procedure history: ORIF of Right Elbow (553880733) on 10/28/2023 at 77 Years. Colonoscopy (900295716) on 03/04/2022 at 76 Years. EVLT RLSV [...] fracture in 1966 at 21 Years. Appendectomy (562315900) in 1952 at 7 Years. bilateral wrist [...] visible). Respiratory (more content not included)... [facility] Comment on above: Result Comment: Elec tronically Signed By: MD Kar, Jemima Bella\.br\Date and Time Signed: 11/01/23 18:14 EST Operative Reporton Operative Report SURGERY DATE: 2022 MANAGER STONE: Samuel Gonsalez PA-C PREOPERATIVE DIAGNOSIS: Right olecranon fracture POSTOPERATIVE DIAGNOSIS: Right olecranon fracture OPERATION: Right olecranon open reduction internal fixation ANESTHESIA: General ANESTHESIOLOGIST: CINDY Faria ESTIMATED BLOOD LOSS: None SPECIMEN: None COMPLICATIONS: None IMPLANT: 0.062 K-wire x2 with 18 gauge dental wire for a wggccw-cn-xlroe tension band construct HISTORY/OPERATIVE INDICATIONS: Yousif is [...] visualized. It is then fixed with a asipma-vb-ygmbz construct as described below. Samuel Gonsalez did [...] This is done in the standard fashion. Hzjejl-eg-rbfvb is then applied, tensioned accordingly, is cut [...] patient is subsequently extubated, transferred to the [facility] and taken to Post-Anesthesia Care Unit in stable condition. He will be discharged this day. Theresa Villalpando D.O. Dictated: 10/28/2023 [id number] Transcribed: 10/29/2023 cc:Abbie Gtz III, D.O. [facility] Comment on above: Result Comment: Elec tronically Signed By: Theresa Villalpando DO\.br\Date and Time Signed: 10/30/23 11:53 EST Consent for Anesthesiaon Consent for Anesthesia [id number]#1.00TIFF [facility] Discharge Instructionson Discharge Instructions [id number]#1.00TIFF [facility] Insurance Correspondence Off iceon 10-29-2023 Insurance Correspondence Office [id number]#1.00TIFF [facility] IntraOperative Documentson 1 12-29-2022 IntraOperative Documents [id number]#1.00TIFF [facility] Main OR Intraoperative Recor don 10-29-2023 Main OR Intraoperative Record IntraOp Document Type FT Summary Primary Physician: Theresa Villalpando DO Finalized Date/Time: 10/29/23 12:32:07 Pt. Name: YOUSIF AGUILAR/Sex: 1945 Male Med Rec #: [id number] Physician: Theresa Villalpando DO Financial #: [id number] Pt. Type: A Room/Bed: [place] [address] Admit/Disch: 10/28/23 10:36:00 - 10/28/23 17:40:00 Institution: [...] D Role Performed Anesthesiologist Surgeon - Primary PA/AUTOMOTIVE DIAGNOSTIC TECHNICIAN Human Resource Adviser Time In 10/28/23 14:07:00 10/28/23 14:07:00 10/28/23 [...] C Roll RT, Daniel P Role Performed Oil And Gas Drafter - Primary Scrub - Primary Bacteriologist Food Time In 10/28/23 14:07:00 10/28/23 14:07:00 10/28/23 [...] and tissue Entry 1 Skin Integrity Intact, [place], Warm, and Skin Abnormality No Dry Outcomes [...] symptoms o (more content not included)... [facility] Preoperative Documentson Preoperative Documents [id number]#1.00TIFF [facility] XR Elbow 2 Views Righton XR [...] mGy = 1.66 DAP = na [facility] Consent for Treatmenton 10-02 Consent for Treatment [id number]#1.00TIFF [facility] Discharge Instructionson Discharge Instructions YOUSIF AGUILAR [...] physician. This Is Your Medications List acetaminophen-hydrocodone (Ladysmith 325 mg-5 mg oral tablet) atorvastatin (atorvastatin [...] Comments: Appointment has already been scheduled Where: [address] [place] [address]- Business (1) Medications What How Much When Instructions Next Dose Unchanged acetaminophen-hydrocodone (Ladysmith 325 mg-5 mg oral tablet) See instructions 1 - 2 po q4-6h prn pain Dx: S52.031D Duration: 7 days Pickup at [facility]/pharmacy #6173 Unchanged atorvastatin (atorvastatin 20 mg Tab) 1 Tablets By Mouth Once a day (at bedtime) Unchanged docusate (Colace 100 mg Cap) 1 Capsules By Mouth 2 times a day as needed for for constipation [facility] Unchanged hydrochlorothiazide (hydrochlorothiazide 25 mg oral tablet) 1 Tablets By Mouth Every day Unchanged rivaroxaban (Xarelto 2.5 mg oral tablet) 2 Tablets By Mouth Every day Pharmacy Information [facility]/pharmacy #6173: [address] [place], [place] [phone] Test Results No qualifying data [...] WIRE 10/28/2023 K-WIRE (2), 10/28/2023 Education Materials [place], [place] [facility] OUTPATIENT SURGERY Home Care [...] pain a (more content not included)... [facility] Comment on above: Result Comment: Elec tronically Signed By: Flavio PHELPS, Marilou Aguero\.br\Date and Time Signed: 10/28/23 16:53 EST H&P Updateon 10-28-2023 H&P Update [id number]#1.00TIF F [facility] Main OR PACU I Recordon 10-02 Main OR PACU I Record PACU Phase I Document Type FT Summary Primary Physician: Theresa Villalpando DO Finalized Date/Time: 10/28/23 16:14:58 Pt. Name: YOUSIF AGUILAR Jimbo Gaines/Sex: 1945 Male Med Rec #: [id number] Physician: Theresa Villalpando DO Financial #: [id number] Pt. Type: A Room/Bed: [facility] Admit/Disch: 10/28/23 10:36:00 - Institution: Case [...] By: Elizabeth Rowe RN 10/28/23 16:14 [facility] Main OR Preoperative Recordo n 10-28-2023 Main OR Preoperative Record PreOp Document Type FT Summary Primary Physician: Theresa Villalpando DO Finalized Date/Time: 10/28/23 14:12:47 Pt. Name: YOUSIF AGUILAR./Sex: 1945 Male Med Rec #: [id number] Physician: Theresa Villalpando DO Financial #: [id number] Pt. Type: A Room/Bed: [place] [address] Admit/Disch: 10/28/23 10:36:00 - Institution: Case Times [...] Signed By: Idris Brooks 10/28/23 14:12 [facility] Monitor Recordon 10-28-2023 Monitor Record [id number]#1.00TIFF [facility] Patient Education - Texton 1 12-28-2022 Patient Education - Text [place], [place] [facility] OUTPATIENT SURGERY Home Care [...] drive. __ Theresa Villalpando DO [facility] [address] [place] [address] Reviewed: 03-08 [facility] Progress Note-Physicianon Progress Note-Physician Patient: YOUSIF AGUILAR Age: 77 years Sex: Male : 1945 Associated Diagnoses: None Author: Theresa Villalpando DO Postoperative Information Procedure: R Olecranon ORIF Preoperative Diagnosis: R olecranon fx. Postoperative Diagnosis: same. Performed by: camila. Human Resource Adviser: Wallace. Specimens Removed: none. Prosthesis: tension band. . Estimated Blood Loss: 0 ml. Complications: None. Anesthesia type: General. [facility] Comment on above: Result Comment: Elec tronically Signed By: Theresa Villalpando DO\Date and Time Signed: 10/28/23 15:37 EST CHEMISTRYOrdered By: SYSTEM SYSTEM on 10-27-2023 Potassium [Moles/Vol] 3.6 mmol/L Normal 3.5 - 5.3 mmol/L [facility] Remisol Consent for Procedure/Surger yon 10-27-2023 Consent for Procedure/Surgery [id number]#1.00TIFF [facility] Consent for Treatmenton 10-02 Consent for Treatment [id number]#1.00TIFF [facility] Physician Orderon 10-27-2023 Physician Order [id number]#1.00TIFF [facility] Potassiumon 10-27-2023 Potassium [Moles/Vol] 3.6 mmol/L Normal 3.5-5.3 [facility] Comment on above: Performed By: #### 2 210254 #### [facility] [address] [place] [address] XR Chest 2 Viewson 3 XR Chest [...] mGy = na DAP = na [facility] Auto Diffon 10-22-2023 Basophils/100 WBC (Bld) 0.3 % Normal 0.0-2.0 [facility] Comment on above: Order Comment: Order Added by Discern Expert. Performed By: #### 2 862163, 6287840, 4623038, 22275314 ####[address] [address] Basophils/Leukocytes Auto (Bld) [Pure # fraction] 0.0 E9/L Normal 0.0-0.2 [facility] Comment on above: Order Comment: Order Added by Discern Expert. Performed By: #### 2 569101, 4722182, 9435143, 46762801 ####[address] [address] Eosinophils/100 WBC (Bld) 3.6 % Normal 0.0-8.0 [facility] Comment on above: Order Comment: Order Added by Discern Expert. Performed By: #### 2 779090, 9128276, 0694060, 73013443 ####[address] [address] Eosinophils/Leukocyt es Auto (Bld) [Pure # fraction] 0.3 E9/L Normal 0.0-0.5 [facility] Comment on above: Order Comment: Order Added by Discern Expert. Performed By: #### 2 600622, 2679948, 7753768, 38662854 ####[address] [address] Lymphocytes/100 WBC (Bld) 15.5 % Normal 14.0-50.0 [facility] Comment on above: Order Comment: Order Added by Discern Expert. Performed By: #### 2 561335, 7138984, 0348196, 40337415 ####[address] [place] [address] Lymphocytes/Leukocyt es Auto (Bld) [Pure # fraction] 1.1 E9/L Normal 1.0-4.0 [facility] Comment on above: Order Comment: Order Added by Discern Expert. Performed By: #### 2 624184, 9519049, 6564072, 29957514 ####[place] [address] [place] [address] Monocytes/100 WBC (Bld) 9.5 % Normal 4.0-14.0 [facility] Comment on above: Order Comment: Order Added by Discern Expert. Performed By: #### 2 506892, 6575067, 8092834, 25568059 ####[address] [address] Monocytes/Leukocytes Auto (Bld) [Pure # fraction] 0.7 E9/L Normal 0.2-1.0 [facility] Comment on above: Order Comment: Order Added by Discern Expert. Performed By: #### 2 603218, 9364466, 0778945, 33417114 ####[address] [address] Neutrophils/100 WBC (Bld) 71.1 % Normal 36.0-75.0 [facility] Comment on above: Order Comment: Order Added by Discern Expert. Performed By: #### 2 183799, 0680401, 5975722, 51801137 ####[address] [address] Neutrophils/Leukocyt es Auto (Bld) [Pure # fraction] 5.2 E9/L Normal 2.0-7.5 [facility] Comment on above: Order Comment: Order Added by Discern Expert. Performed By: #### 2 393702, 3206756, 9155719, 18440076 ####[address] [place] [address] BMPon 10-22-2023 Anion gap [Moles/Vol] 13 mmol/L Normal 6-16 [facility] Comment on above: Performed By: #### 2 576752, 1788255, 8204472, 91617094 ####[facility] [address] [place] [address] Calcium [Mass/Vol] 8.4 mg/dL Low 8.9-11.1 [facility] Comment on above: Performed By: #### 2 396729, 9309586, 6224231, 90203339 ####[facility] [address] [place] [address] Chloride [Moles/Vol] 97 mmol/L Low 101-[address] [facility] Comment on above: Performed By: #### 2 020957, 7589280, 8101907, 28933407 ####[facility] [address] [place] [address] CO2 [Moles/Vol] 31 mmol/L Normal 21-31 [facility] Comment on above: Performed By: #### 2 987055, 0699321, 4041253, 03755401 ####[facility] [address] [place] [address] Creatinine [Mass/Vol] 0.9 mg/dL Normal 0.5-1.3 [facility] Comment on above: Performed By: #### 2 025475, 5494865, 6163024, 02470202 ####[facility] [address] [facility] [place] [address] Glucose [Mass/Vol] 105 mg/dL Normal 55-199 [facility] Comment on above: Result Comment: If t his glucose result represents a fasting glucose, interpretation should refer to the following reference range: 55-99 mg/dL Performed By: #### 2 965369, 2091272, 1486690, 33807261 ####[facility] [address] [place] [address] Potassium [Moles/Vol] 2.8 mmol/L Abnormal 3.5-5.3 [facility] Comment on above: Result Comment: Crit ical Result verified by repeat analysis\Critical Result S_K:2.8 Called to [facility] DEL [facility] by MITALI DUBON And Read Back For Confirmation at: 10/22/2023 13:36:24 Performed By: #### 2 052550, 4536533, 6994666, 83509213 ####[facility] [address] [place] [address] Sodium [Moles/Vol] 138 mmol/L Normal 135-145 [facility] Comment on above: Performed By: #### 2 714936, 6373264, 1798576, 42730437 ####[facility] [address] [place] [address] Urea nitrogen [Mass/Vol] 17 mg/dL Normal 5-21 [facility] Comment on above: Performed By: #### 2 902175, 7642124, 2414249, 18045057 ####[facility] [address] [place] [address] Urea nitrogen/Creatinine [Mass ratio] 19 No Units Normal 10-20 [facility] Comment on above: Performed By: #### 2 507415, 8746284, 0624855, 37785974 ####[facility] [address] [place] [address] CBC w/ Auto Diffon 3 Erythrocyte distribution width (RBC) [Ratio] 14.1 % Normal 10.9-14.2 [facility] Comment on above: Performed By: #### 2 107589, 5080188, 6387238, 15799443 ####[address] [address] Hematocrit (Bld) [Volume fraction] 32.6 % Low 37.7-49.0 [facility] Comment on above: Performed By: #### 2 314729, 2261132, 8225263, 50588813 ####[address] [place] [address] Hemoglobin (Bld) [Mass/Vol] 10.9 g/dL Low 13.5-17.5 [facility] Comment on above: Performed By: #### 2 993360, 2748779, 1319347, 73897883 ####[address] [place] [address] MCH (RBC) [Entitic mass] 28.9 pg Normal 27.0-34.0 [facility] Comment on above: Performed By: #### 2 437374, 3423396, 4611677, 56580705 ####[address] [address] MCHC (RBC) [Mass/Vol] 33.5 g/dL Normal 31.4-36.0 [facility] Comment on above: Performed By: #### 2 558290, 0222282, 2002511, 79026344 ####[address] [address] MCV (RBC) [Entitic vol] 86.3 fL Normal 80.0-100.0 [facility] Comment on above: Performed By: #### 2 229083, 9894144, 3369887, 75445574 ####[address] [address] Platelet mean volume (Bld) [Entitic vol] 8.8 fL Normal 6.4-10.8 [facility] Comment on above: Performed By: #### 2 736514, 6015771, 7703656, 07699574 ####[address] [address] Platelets (Bld) [#/Vol] 245.0 E9/L Normal 150.0-500.0 [facility] Comment on above: Performed By: #### 2 844570, 1442439, 6023657, 70335162 ####[address] [address] RBC (Bld) [#/Vol] 3.8 E12/L Low 4.3-5.9 [facility] Comment on above: Performed By: #### 2 491364, 1243088, 0218122, 56019632 ####[address] [address] WBC corrected for nucl RBC Auto (Bld) [#/Vol] 7.4 E9/L Normal 4.0-11.0 [facility] Comment on above: Performed By: #### 2 775348, 1896010, 3299907, 18337269 ####[facility] [address] [place] [address] CHEMISTRYOrdered By: SYSTEM SYSTEM on 10-22-2023 Anion [...] m2 Normal >=59mL/min/ 1.73 m2 [facility] Chem S Comment on above: Interpretive Data: [...] Consent for Treatmenton 10-02 Consent for Treatment [id number]#1.00TIFF [facility] HEMATOLOGYOrdered By: SYSTEM SYSTEM on 10-22-2023 [...] [Vol rate/Area] 89 mL/min/1.73 m2 Normal >=59 [facility] Comment on above: Order Comment: Order added by Discern Expert. Result Comment: Service Specialist mercy kidney disease could be indicated at eGFR's of less than 60 mL/min/1.73m2. Kidney failure is indicated at less than 15 mL/min/1.73m2. Performed By: #### 2 773122, 2043138, 4834299, 97159636 ####[facility] [address] [place] [address] Consent for Treatmenton 10-01 Consent for Treatment [id number]#1.00TIFF [facility] Discharge Instructionson Discharge Instructions [id number]#1.00TIFF [facility] ED Clinical Summaryon 2022 ED Clinical Summary (Inserted Image. Clarissa ble to display) [address] [address] ED Clinical Summary Person Information Name: YOUSIF AGUILAR [place]ga [place] Age: 77 Years : 1945 Sex: Male Language: Micronesian PCP: Abbie Gtz III, DO Marital Status: [...] 10/17/2023 23:43:34 10/17/2023 23:43:34 10/17/2023 23:43:34 ADDRESS: [address] [place] [id number] PHYS DOC NOTES: MEDICAL INFORMATION: Prescriptions Given: New Medications [facility], [address] [facility] [place], [place] [id number], [phone] acetaminophen-hydrocodone (Ladysmith 325 mg-5 mg oral tablet) 1 Tablets [...] up: With: Address: When: Theresa Villalpando [address] [place] [address] Business (1) In 3 days 10/20/2023 Comments: You can use the pain medication every 6 hours as needed for pain. Please follow-up with your primary care doctor addition to orthopedics for further evaluation management. Please return to the ED for any new or worsening symptoms. With: Address: When: Abbie Gtz [address] [facility], [place] [address] Business (1) In 3 days DIAGNOSIS: Olecranon fracture [facility] ED Note-Physicianon 10-18-20 ED Note-Physician Basic Information Time Seen: Bryce Funk DO 10/17/2023 21:16 Chief Complaint Pt arrives via [facility] for a fall. Pt states he was [...] and Complexity of Problems Differential Diagnosis: [] [facility] Data External documents reviewed: [] My EKG [...] for 3 day(s), 10 tab(s), Refill(s) 0, [facility] 1985, 177.8, cm, 10/17/23 21:21:00 EST, Height/Length Dosing, 133.1, kg, 10/17/23 21:21:00 EST, Weight Dosing Sling Apply XR Elbow 3+ Views Right Disposition Plan Discharge Prescription List Prescriptions Ladysmith 325 mg-5 mg oral tablet, 1 tab(s), Oral, q6hr, PRN Follow-up With When Contact Information Theresa Villalpando In 3 days 10/20/2023 EST [address] [place] [address]- Business (1) Additional Instructions: You can use the pain medication every 6 hours as needed for pain. Please follow-up with your primary care doctor addition to orthopedics for further evaluation management. Please return to the ED for any new or worsening symptoms. Abbie Gtz In 3 days [address] [facility] [address], [place] [address]- Business (1) Additional Instructions: Patient [...] lower ex (more content not included)... [facility] Comment on above: Result Comment: Elec [...] these instructions at home: Medicines ? Take dztz-bvd-anafdxr and prescription medicines only as told by your health care provider. ? Ask your health care provider if the medicine prescribed to you: ? Requires you to avoid driving or using heavy machinery. ? Can cause constipation. You may need to take actions to prevent or treat constipation, such as: ? Drink enough fluid to keep your urine pale yellow. ? Take mcwu-hew-strjndi or prescription medicines. ? Eat foods that [...] is import (more content not included)... [facility] ED Patient Summaryon 023 ED Patient Summary (Inserted Image. Clarissa ble to display) [place] [id number] Patient Discharge Instructions Person Information Name: YOUSIF AGUILAR Age: 77 Years Arrival Date: 10/17/2023 21:13:58 Discharge Diagnosis: Olecranon fracture Primary Care Physician: Abbie Gtz III, DO Provider Information Primary Provider: Bryce Funk DO Advanced Storeperson:None The exam and treatment you received in the Emergency Department were for an urgent problem and are not intended as complete care. It is important that you follow up with a doctor, nurse practitioner, or physician?s construction administrative assistant for ongoing care. If your symptoms [...] Instructions: With: Address: When: [address] [place] [address] [employer] (1) In 3 days 10/20/2023 Comments: You can use the pain medication every 6 hours as needed for pain. Please follow-up with your primary care doctor addition to orthopedics for further evaluation management. Please return to the ED for any new or worsening symptoms. With: Address: When: Abbie Gtz [address] [facility], [place] [address] [employer] (1) In 3 days In the event that this physician does not participate in your insurance network, please consult with your insurance company to find a nearby participating provider. Patient Education Materials: William Fracture A MESSAGE TO ALL PATIENTS REGARDING OPIOIDS PRESCRIPTION OPIOIDS: WHAT YOU NEED TO KNOW Prescription opioids can be used to help relieve jrjjciry-fx-khtelf pain and are often prescribed following a [...] following g (more content not included)... [facility] ED Traumaon 10-18-2023 ED Trauma [id number] 73448 [id number]#1.00TIFF [facility] XR Elbow 3+ Views Righton XR [...] in mGy = na DAP = na [facility] Pre-Arrival Noteon 3 Pre-Arrival Note Pre-Arrival Summary Name: , maritza Current Date: 10/17/2023 21:14:37 EST Gender: Male Date of : Age: 77 Pre-Arrival Type: EMS ETA: 10/17/2023 21:06:00 EST Primary Care Physician: Presenting Problem: T2-fall, elbow pain Pre-Arrival User: Nicholas Rosario RN Referring Source: Location: [place] Completion Date/Time: 10/17/2023 21:06:00 [facility] Emergency Department Pre-Hospital Report Form ____ Vital Signs: Pre-Hospital Report: slipped on kitchen floor falling to R elbow, swelling noted. denies hitting head or LOC. on xarelto. no other pain/complaints Treatment in Route: none Response to Treatment: Misc. Issues: [facility] Nursing Note - Woundon 08-12 Nursing Note - Wound 170.71.670.875.1133 926818 [id number]#1.00CD:1 27 [facility] Consent for Procedure/Surger yon 08-05-2023 Consent for Procedure/Surgery [id number]#1.00CD:1 27 [facility] Consent for Treatmenton Consent for Treatment [id number]#1.00CD:12 7 [facility] Physician Orderon 08-05-2023 Physician Order [id number]#1.00CD:1 27 [facility] Nursing Note - Woundon 07-31 Nursing Note - Wound 170.71.940.205.4108 142444 [id number]#1.00CD:1 27 [facility] Physician Orderon 07-31-2023 Physician Order [id number]#1.00CD:1 27 [facility] Consent for Treatmenton 07-02 Consent for Treatment [id number]#1.00CD:12 7 [facility] Multi-Wound Charton 07-29-20 Multi-Wound Chart 170.71.121.117.21489 40389 [id number]#1.00CD:1 27 [facility] Nursing Assessment - Woundon 07-29-2023 Nursing Assessment - Wound [id number]#1.00CD:1 27 [facility] Procedure - Woundon 07-29-20 Procedure - Wound 170.71.121.117.00323 23981 [id number]#1.00CD:1 27 [facility] Consent for Treatmenton 07-02 Consent for Treatment [id number]#1.00CD:12 7 [facility] Multi-Wound Charton 07-22-20 Multi-Wound Chart 170.71.121.117.67589 57119 [id number]#1.00CD:1 27 [facility] Nursing Assessment - Woundon 07-22-2023 Nursing Assessment - Wound [id number]#1.00CD:1 27 [facility] Nursing Note - Woundon 07-22 Nursing Note - Wound 170.71.552.879.8898 741537 [id number]#1.00CD:1 27 [facility] Physician Orderon 07-22-2023 Physician Order [id number] [id number]#1.00CD:1 27 [facility] Procedure - Woundon 07-22-20 Procedure - Wound 170.71.121.117.11957 19144 [id number]#1.00CD:1 [facility] Progress Note - Woundon 07-02 Progress Note - Wound [id number]#1.00CD:1 27 [facility] Consent for Treatmenton 07-01 Consent for Treatment 149.45.122.5.906667552887 [id number]#1.00CD:127 [facility] Physician Orderon 07-15-2023 Physician Order [id number]#1.00CD:1 27 [facility] Multi-Wound Charton 07-14-20 Multi-Wound Chart 170.71.121.117.63371 73747 [id number]#1.00CD:1 27 [facility] Nursing Assessment - Woundon 07-14-2023 Nursing Assessment - Wound [id number]#1.00CD:1 27 [facility] Nursing Note - Woundon 07-14 Nursing Note - Wound 170.71.101.825.4179 829225 [id number]#1.00CD:1 27 [facility] Consent for Procedure/Surger yon 07-08-2023 Consent for Procedure/Surgery [id number]#1.00CD:1 27 [facility] Consent for Procedure/Surgery [id number]#1.00CD:1 27 [facility] Consent for Treatmenton Consent for Treatment [id number]#1.00CD:12 7 [facility] Multi-Wound Charton 07-08-20 Multi-Wound Chart 170.71.121.117.15460 77077 [id number]#1.00CD:1 27 [facility] Nursing Assessment - Woundon 07-08-2023 Nursing Assessment - Wound [id number]#1.00CD:1 27 [facility] Nursing Note - Woundon 07-08 Nursing Note - Wound 170.71.483.547.9885 749548 [id number]#1.00CD:1 27 [facility] Physician Orderon 07-08-2023 Physician Order [id number]#1.00CD:1 27 [facility] Procedure - Woundon 07-08-20 Procedure - Wound 170.71.121.117.07048 13904 [id number]#1.00CD:1 27 [facility] Progress Note - Woundon Progress Note - Wound [id number]#1.00CD:1 27 [facility] Multi-Wound Charton 07-01-20 Multi-Wound Chart 170.71.121.117.78798 82709 [id number]#1.00CD:1 27 [facility] Nursing Note - Woundon 07-01 Nursing Note - Wound 170.71.019.888.7521 965737 [id number]#1.00CD:1 27 [facility] Consent for Treatmenton 06-02 Consent for Treatment [id number]#1.00CD:12 7 [facility] Insurance Correspondenceon 0 06-30-2023 Insurance Correspondence [id number]#1.00CD:1 27 [facility] Physician Orderon 06-30-2023 Physician Order [id number]#1.00CD:1 27 [facility] Procedure - Woundon 06-30-20 Procedure - Wound 170.71.121.117.51003 65312 [id number]#1.00CD:1 27 [facility] Consent for Treatmenton 06-01 Consent for Treatment [id number]#1.00CD:12 7 [facility] Multi-Wound Charton 06-24-20 Multi-Wound Chart 170.71.121.117.65176 67916 [id number]#1.00CD:1 27 [facility] Nursing Assessment - Woundon 06-24-2023 Nursing Assessment - Wound 170.71.121.117.5520409756 [id number]#1.00CD:1 27 [facility] Nursing Note - Woundon 06-24 Nursing Note - Wound 170.71.559.157.3581 [id number] [id number]#1.00CD:1 27 [facility] Physician Orderon 06-24-2023 Physician Order [id number]#1.00CD:1 27 [facility] Procedure - Woundon 06-24-20 Procedure - Wound 170.71.121.117.19815 [id number] [id number]#1.00CD:1 27 [facility] Progress Note - Woundon 06-01 Progress Note - Wound [id number]#1.00CD:1 27 [facility] Consent for Treatmenton 05-31 Consent for Treatment [id number]#1.00CD:12 7 [facility] Multi-Wound Charton 06-17-20 Multi-Wound Chart 170.71.121.117.41583 43918 [id number]#1.00CD:1 27 [facility] Nursing Assessment - Woundon 06-17-2023 Nursing Assessment - Wound [id number]#1.00CD:1 27 [facility] Nursing Note - Woundon 06-17 Nursing Note - Wound 170.71.979.832.8275 074805 [id number]#1.00CD:1 27 [facility] Physician Orderon 06-17-2023 Physician Order [id number]#1.00CD:1 27 [facility] Procedure - Woundon 06-17-20 Procedure - Wound 170.71.121.117.68529 45417 [id number]#1.00CD:1 27 [facility] Progress Note - Woundon 05-31 Progress Note - Wound [id number]#1.00CD:1 27 [facility] Consent for Procedure/Surger yon 06-11-2023 Consent for Procedure/Surgery [id number]#1.00CD:1 27 [facility] Correspondence - Woundon Correspondence - Wound [id number]#1.00CD:1 27 [facility] Nursing Note - Woundon 06-11 Nursing Note - Wound 170.71.444.008.3461 923478 [id number]#1.00CD:1 27 [facility] Physician Orderon 06-11-2023 Physician Order [id number]#1.00CD:1 27 [facility] Procedure - Woundon 06-11-20 Procedure - Wound 170.71.121.117.58596 52953 [id number]#1.00CD:1 27 [facility] Progress Note - Woundon 05-31 Progress Note - Wound [id number]#1.00CD:1 27 [facility] Consent for Treatmenton 05-31 Consent for Treatment 159.140.128.34.1615802485 [id number]#1.00CD:12 7 [facility] Multi-Wound Charton 06-10-20 Multi-Wound Chart 170.71.121.117.94862 97736 [id number]#1.00CD:1 27 [facility] Nursing Assessment - Woundon 06-10-2023 Nursing Assessment - Wound [id number]#1.00CD:1 27 [facility] Nursing Note - Woundon 06-09 Nursing Note - Wound 170.71.696.825.0285 223134 [id number]#1.00CD:1 27 [facility] Physician Orderon 06-09-2023 Physician Order [id number]#1.00CD:1 27 [facility] Procedure - Woundon 06-09-20 Procedure - Wound 170.71.121.117.22380 62878 [id number]#1.00CD:1 27 [facility] Progress Note - Woundon 05-31 Progress Note - Wound [id number]#1.00CD:1 27 [facility] Physician Orderon 06-06-2023 Physician Order [id number] [id number]#1.00CD:1 27 [facility] Procedure - Woundon 06-06-20 Procedure - Wound 170.71.121.117.97364 61549 [id number]#1.00CD:1 27 [facility] Multi-Wound Charton 06-05-20 Multi-Wound Chart 170.71.121.117.10553 88134 [id number]#1.00CD:1 27 [facility] Nursing Note - Woundon 06-05 Nursing Note - Wound 170.71.493.114.7999 447184 [id number]#1.00CD:1 27 [facility] Procedure - Woundon 05-28-20 Procedure - Wound 170.71.121.117.54093 15870 [id number]#1.00CD:12 7 [facility] Consent for Treatmenton 05-02 Consent for Treatment 159.140.128.36.7931163736 [id number]#1.00CD:12 7 [facility] Multi-Wound Charton 05-27-20 Multi-Wound Chart 170.71.121.117.89469 64249 [id number]#1.00CD:1 27 [facility] Nursing Note - Woundon 05-27 Nursing Note - Wound 170.71.995.514.5836 [id number] [id number]#1.00CD:1 27 [facility] Physician Orderon 05-27-2023 Physician Order [id number]#1.00CD:1 27 [facility] Multi-Wound Charton 05-21-20 Multi-Wound Chart 170.71.121.117.77928 61812 [id number]#1.00CD:1 27 [facility] Nursing Note - Woundon 05-21 Nursing Note - Wound 170.71.098.154.0443 985312 [id number]#1.00CD:1 27 [facility] Physician Orderon 05-21-2023 Physician Order [id number] [id number]#1.00CD:1 27 [facility] Prescriptions/Work Noteson 0 05-21-2023 Prescriptions/Work Notes [id number]#1.00CD:1 27 [facility] Procedure - Woundon 05-21-20 Procedure - Wound 170.71.121.117.61824 37478 [id number]#1.00CD:1 27 [facility] Consent for Treatmenton 05-02 Consent for Treatment 159.140.128.36.9748758596 [id number]#1.00CD:12 7 [facility] Multi-Wound Charton 05-20-20 Multi-Wound Chart 170.71.121.117.61880 92960 [id number]#1.00CD:1 27 [facility] Nursing Assessment - Woundon 05-20-2023 Nursing Assessment - Wound [id number]#1.00CD:1 27 [facility] Consent for Treatmenton 05-01 Consent for Treatment [id number]#1.00CD:12 7 [facility] Consent for Procedure/Surger yon 05-06-2023 Consent for Procedure/Surgery 170.71.121.81.46939394512 [id number]#1.00CD:1 27 [facility] Consent for Treatmenton Consent for Treatment 159.140.128.34.7873717752 [id number]#1.00CD:12 7 [facility] Multi-Wound Charton 05-06-20 Multi-Wound Chart 170.71.121.117.49322 26963 [id number]#1.00CD:1 27 [facility] Nursing Assessment - Woundon 05-06-2023 Nursing Assessment - Wound [id number]#1.00CD:1 27 [facility] Nursing Note - Woundon 05-06 Nursing Note - Wound 170.71.528.498.4424 825279 [id number]#1.00CD:1 27 [facility] Physician Orderon 05-06-2023 Physician Order [id number]#1.00CD:1 27 [facility] Procedure - Woundon 05-06-20 Procedure - Wound 170.71.121.117.46374 62188 [id number]#1.00CD:1 27 [facility] Progress Note - Woundon -0 Progress Note - Wound 170.71.121.117.8082518901 [id number]#1.00CD:1 27 [facility] Correspondence - Woundon Correspondence - Wound 170.71.121.80.33329209826 [id number]#1.00CD:12 7 [facility] Consent for Treatmenton 04-01 Consent for Treatment 159.140.128.36.2983336082 [id number]#1.00CD:12 7 [facility] Multi-Wound Charton 04-22-20 Multi-Wound Chart 170.71.121.117.05156 43533 [id number]#1.00CD:1 27 [facility] Nursing Assessment - Woundon 04-22-2023 Nursing Assessment - Wound 170.71.121.117.7502051809 [id number]#1.00CD:1 27 [facility] Nursing Note - Woundon 04-22 Nursing Note - Wound 170.71.396.261.5863 832245 [id number]#1.00CD:1 27 [facility] Physician Orderon 04-22-2023 Physician Order [id number] [id number]#1.00CD:1 27 [facility] Procedure - Woundon 04-22-20 Procedure - Wound 170.71.121.117.26208 93464 [id number]#1.00CD:1 27 [facility] Progress Note - Woundon 04-01 Progress Note - Wound [id number]#1.00CD:1 27 [facility] Correspondence - Woundon Correspondence - Wound 149.45.122.13.19712264522 [id number]#1.00CD:12 7 [facility] Consent for Treatmenton 03-31 Consent for Treatment 159.140.128.34.7159269383 [id number]#1.00CD:12 7 [facility] Correspondence - Woundon Correspondence - Wound 170.71.121.88.56008752973 [id number]#1.00CD:1 27 [facility] Multi-Wound Charton 04-15-20 Multi-Wound Chart 170.71.121.117.28201 71032 [id number]#1.00CD:1 27 [facility] Nursing Assessment - Woundon 04-15-2023 Nursing Assessment - Wound 170.71.121.117.5513626605 [id number]#1.00CD:1 27 [facility] Nursing Note - Woundon 04-15 Nursing Note - Wound 170.71.212.669.7402 847427 [id number]#1.00CD:1 27 [facility] Physician Orderon 04-15-2023 Physician Order [id number]#1.00CD:1 27 [facility] Procedure - Woundon 04-15-20 Procedure - Wound 170.71.121.117.97681 86642 [id number]#1.00CD:1 27 [facility] Progress Note - Woundon 03-31 Progress Note - Wound 170.71.121.117.7728934777 [id number]#1.00CD:1 27 [facility] Progress Note - Wound 170.71.121.117.9029962942 [id number]#1.00CD:1 27 [facility] Correspondence - Woundon Correspondence - Wound 149.45.122.6.380321037372 [id number]#1.00CD:12 7 [facility] Consent for Procedure/Surger yon 04-08-2023 Consent for Procedure/Surgery 149.45.122.20.49703079852 [id number]#1.00CD:1 27 [facility] Consent for Treatmenton Consent for Treatment 159.140.128.36.2842836922 [id number]#1.00CD:12 7 [facility] Multi-Wound Charton 04-08-20 Multi-Wound Chart 170.71.121.117.15949 65748 [id number]#1.00CD:1 27 [facility] Nursing Assessment - Woundon 04-08-2023 Nursing Assessment - Wound 170.71.121.117.3193330279 [id number]#1.00CD:1 27 [facility] Nursing Note - Woundon 04-08 Nursing Note - Wound 170.71.168.275.3599 276877 [id number]#1.00CD:1 27 [facility] Physician Orderon 04-08-2023 Physician Order [id number] [id number] [id number]#1.00CD:1 27 [facility] Procedure - Woundon 04-08-20 Procedure - Wound 170.71.121.117.88001 15374 [id number]#1.00CD:1 27 [facility] Consent for Treatmenton Consent for Treatment 159.140.128.36.8667386546 [id number]#1.00CD:12 7 [facility] Multi-Wound Charton 04-02-20 Multi-Wound Chart 170.71.121.117.75084 83775 [id number]#1.00CD:1 27 [facility] Nursing Note - Woundon 04-02 Nursing Note - Wound 170.71.196.587.2221 283858 [id number]#2.00CD:1 27 [facility] Physician Orderon 04-02-2023 Physician Order [id number]#2.00CD:1 27 [facility] Procedure - Woundon 04-02-20 Procedure - Wound 170.71.121.117.47201 50301 [id number]#1.00CD:1 27 [facility] Nursing Assessment - Woundon 03-27-2023 Nursing Assessment - Wound 170.71.121.117.2160157759 [id number]#1.00CD:1 27 [facility] Nursing Note - Woundon 03-27 Nursing Note - Wound 170.71.691.807.7775 547531 [id number]#1.00CD:1 27 [facility] Coding Summary.on 03-26-2023 Coding Summary. CD:[id number] Ww+PG hlYWQ+JN4QJGHfC57plEWmyE5 jF8XASDwHHayeSVJREWxNVvDg ibPhOM6lhOXmVKLv IC8+TR4kKBRdEjopmUDme2F1f AX9S84ljc1xQKmkoDU5FMSaOf Iytvlzh9dstPu2IJjxJivxRiW t HEAxaC64PUP5aW22Ek51zTQet EJel6lggJz8HdSkLWZrKXK5zR xnHChuw1AiBQOrE96ngHMck0Z 6 CQUroSynvZAvQmUsbVG8tA0zN Wotwwkkh4jommseQyz3ym35lZ Ayq8V2uON6X4YdmkJ0JJYiaGZ g TnjetQRTwF3ytcihz3rjcxlzQ rLxNJMqWGv7FHm0ZKVwgNtqZj DdFK49RLQ2NFVitsFvA4SyXJM s aKkjWfC4n5U7Wq8NP8NMApreS 1VNTUFSWTwvdGQ+AJ61gz84M3 NcPwsmHvu4PHQtTFL3uKK1sA0 n BCRkJDqwo0J1bAC5U5SifdOoy k8tn6guJWYeSHwlV11xyLDiu5 V3YHYqgFY7MMOovEonFcIduX2 3 Oyc+WMXbyZmrk7PiJpqmc2eve 0pojOa3FipyABEmdrSkfEseRS N1x5QcRh0rSPAqjBF1oIK5fZ9 i YhSrLkM8NDakU496TzPcqGUiD dqwK98xS7TaiDB+YCTqNti5ES OckJndDU5mS4YuEJCxvfrzhHA m hNbwDH5rAWOmclevALBrrJ7pA PLsJ6g9IuByVbW9ZPsgC4UcXV ZetcmvOo66dE5fXtRjLzV9LXb u V3NmjxI2EAExrAShGMcqUXJ3V 38pu4Z1EOJvXTShKKK2wTR5fX 1hbGlnbjogbGVmdDsgdmVydGl j LUbsJPccQ931PXEbjCesAaNsI GluZyBEYXRlOiAgMDQvMjYvMj AyMzwvdGQ+AVSyJZD5zFeiSWV n sBMyIMznXh1cnZkigHblWA0pD OThzgyjWBZzuA2aRQCzqJGomM ncIY1nOIVheeioq222FrPlHHY 0 VUMvcMUcS4JwsF9vTsIoEJHhP SZdF2RioHMnAGpeR941BOhuAc D1POCbxpGhM6JkOUMboYzoMfT 0 m3H7Me8Ne6VtbvluU0JfeKSfW tPlPpilOZu6J8AlVuzlrTO+PC 19FJNcGY94QEg4TEP4eZzwKEx i ARApL5CjzH2vQtWpFHCzLWKiY yc+PHRhYmxlIHdpZHRoPScxMD GtSfKhkSwaCY1nIy7rJALrTUC v xZjqpIEsFgRla2apGHOyWBewO Z8xsUgdO9TqeOD2AHOhk8s6Yw 39P78zI7WxuSD+KWSulGN1cGY 0 gM6nQuVxZeA1XOncE079DpBoi CLvDfwsk4ulp3sunOw6LyX3GA ErdiPjjOphHQL1d6DqLv88C85 s IHdpZHRoPSIxNSUiIHZhbGlnb r6zxU2oCp1+GJXcaAV2pWA0xL 0vKrLdGrZ9EImaH379LmKzpYT v Vwnsp0wkg1lzmNe4LsAyHSSec aAaqHkdNGT6z8SoYs41X2DogW yhg7KnBgz1cd40oMRbg9C1hAL 9 W0RfZQXinudaaFCqlNehQX9rO XAfnqmqZNJivQ1wOLToD7q8Sz GoWrF8TDndK0LhajY2LXItiLA g RXMgtJQEsD8texmft8uwutupP aFhYQHvFFe7GLq0GFGzoPnnEd UrHTI4MbJ8EPL0oZCzdS1irBj n qxvchS9dKbf+TXG6qGKzmOLDY E8kJdhddAZ+HWZhMKO9vSdjTE maFFIumN1cUTGhS5p8XvIwKeY 1 JXplO6JbjjZ5RHRodPDgZHGxu JUSrO4kveiac6zupmjgPxXhNT RcYIr3UEx5PAKmoPmuSlRhCUL 0 CzF7JIS2mFDgpK3zlOzrxzrgy G9wOyc+UimlhZpoUXJ8JRc4U5 EdRpc8KFVpuBarOP8laFGgSOh u Au5wpOqvqRwwZF0vXNUmkyxsc 687TrAcr2gfYMAyfCBrMDqrKN R0K33qb4S9MBKmRAFyXHT4vHK 4 mE6blSdhdaqcmDVnwWniziVvg LxvBZfdKRwnX745JECfcPewVb LqZTf3A1ZbNre6VJLsaReyIJ0 n fYTyJCbqUv7udSfkvFcyOK6lR ICmylmch241HeCeg9hmDXHjaF YzNKsjJIY0K68qz8U8QGSqZKD w GCQ9nZQ7fK5dsZykfeoqyBZvl ZcqasQioZjeBWjbAItiK709CR WjzOjnRmXxgBn4K8AuUww4BGQ z eUvuEA9bqZSzTSfhWf6vkSobr AzqJP5yGWVhqgbaz972InLhq8 guRTCtdEErVHrkNVP7E52aw2U 6 AHXyGNQrRCS2cJZ0vE0xqOfcg jogbGVmdDsgdmVydGljYWwtYW lbW678TBKztDpzQeTfkSsiohC g EClwPXj2R8QyYbtviUM+PC90Y KNoMK42wUEzpFBcw5pklEd3Mg MmBHIlZPG3rNtwGCrcw8AeMFG t Y23plNTrv6P2CTAkbJisnMErH pPwrPE0mN9uONkegrykq6qwvx gpZwkbe9mzdm62aH27D17iDPj p MOZrMOXqHYHaCFXhzTgzon4uy G9wIi8+LCPnaON4zNY1wC2kJR CjSwW7TWjaQ398KnPfsAPeXdm j k1uql8emiRv5QlX0UNIwyxEga KtlHRS5u8IwDf76A02tJGikDN GjOCFwLAAoGXMhsHtpmz6qjM5 w Ii8+TWJqaOU9kGR7aL0yHqKsR sC6OKjpN032PsAcjDDuVzdzE1 6pD0ZdxTX+VDMjFtj3CXFevVq s LE8jkYWvGIqaYh4lBXI6AhXqL xAqUNotK0QwYDXdpqqqpksagR U1TXPeFQKebA11Kk4suRfsXWE w xSXTzS9oreczy1vsryaiIyBwV WMoASl1AHe0CRXscBrbQhAkYV W2DhC7BUU1sDGldD2kxTmhsca g aL1mZ4MmYCUcvwtoQg28cK3oI tLeBgB6WNztXuw+VEFOTkVSLC IUQ77ZOXZnPFqxuSV+PHRkIHN 0 fHpfMHbnJBNigM2dUROvS7m1X lZiKcB1QNrcI1OaFUOnkwulRm 76aR8mXbDmNsA1UDijA4FeigV 6 SIAyyKNqGEkrBII8H19oj4P8O ZGsUEBoRLZ1wMC8lT7ezMayuy ogbGVmdDsgdmVydGljYWwtYWx p O330ZYKcuIfeIqBlHiI9UnL7Z Jm9Z6EcGsf6TUVqfTgdHU6lkX NoEZktYw8rqFrqcNpdPU0yHER p hqhqZWWeoJ9iZCRjfHSwnZbeK F3oYCNhcudic335VnNlUKF7UF GrcIBpD2AqqQ7iKoMsGZCyRBP w F6BxfDRcXJmyM338IHbqTtG3W BEogmVmX4AjCJIrxOmcRfO4d9 B7Rf73NIBBUUXdoijfxPB+PHR k ZCF1vWatTLgaYFCwlP4tOFRoV 1p1QaKiNlB3XFozW9YsLAPtqj fuZg47lF7oTgEoZeA7WPglT6Q v uiP7NAUgeAOeHSceWYM2O87kp 2I1BUXxVOCnVJT7bDI4eA2pjO lnbjogbGVmdDsgdmVydGljYWw t BCjxM030AOMzkIkmYk9fnWQ6R 3UfPof3FRMyyGevDT7hyLQyKN lgVq9uqRqpaUpxQS8bLZOdnye w WFLxkE5qQIAkkXIsoJpjKW5gD YWwfsipd628MyOcRNY3NKRcnF GwW4QkkP0aRlCoUNLpZICtA7N l gNHsONhoE610CDlvUtG8FBZbz fOdA2SnMUNxvSabOxB0n8L0Bf 4NoQObSWHoNO79MW05RW52R0V y PjwvdGFibGU+PHRhYmxlIHdpZ VNzYWviPTFxHoHniSafGN0oHt 1iRGSqDIZcvGgoxQAkFsQzy0s s XBKeHTckSG3djHkrW5DrtMA7T QVzl7n6Bh89F56sX0JfzGK+PG XqqHE4bRS2bC1aBtPrNnA5VLu p H065HtGqeACyFwoqv1zzl3yaa Nd4JwSnKRFadnVydMusYPT7r5 WpXb58E47iQKurNMQsAPRmNHM i GJFkgZhogx9ngC2nJk8+PGNvb IR3uFB1eJ5uVsBgVcN8BKgrJ6 24AoHbfPEyWhwiB94wJ5RciUK + OYQoEnf1FALcwKwvSN9adFPjL ZnfTs3rAIH0FgIiVwCzKBhtJ5 WfPAUtopvgrxjqcBN5PQAwERK w uB63Xo2raYtcOt1cDKXoIPM4Z TPlaOWsX8IifJ3oBsLbJVYmVW SqR8QspWOgIKflL524SAbaKnR 7 NZNkqmYsZ0WmBFYhhUbjRwK6o 0B0Fg4TwPzqxVZjXA5sKdMdQW l5R5NsQaz5GDLqlYwzRJ6tbST k LYbsOc6hnNpjiNkfOS3uTXVws olxp360DsDof2ueYEPneKEwYO csAZB8B48ya7E9XLYqYTFaZSS 7 zPG8vA7mqLjrarzbrGSjfCwiv oUpsXffTOuzBPvzK687VFAszJ vrLoGVNwx5Q4RwXqp8XRAhgAq s KD2tmUVaGOgaVm1ekVhnrPqnE O5yGHRnkjbvb442DhXrh0qqFZ InfHClZJwsHWM3S72ii6N9BPO w BRZaQXF2tRL1uO2bfPbkvbhzm GVmdDsgdmVydGljYWwtYWxpZ2 07ATKyqKztHi2WIss4R7CbBnc 0 KRHxvJfiCY1vrWXiUAfhGt1qa KgvxMerDR1mRFEvzknqy571Rl Glb4ahUSFrpHBlYOqcHOX1N82 s k8C0AVSyAPLbZIA6tRZ3zP0es GlnbjogbGVmdDsgdmVydGljYW snRMbwX429ZLSvhGovGxLfvOT y OjwvdGQ+ZM93ag20R7HeQiyhZ ih6WCRqYCQ2eIY3zP3uRSUoCG tpf2Z4gKE2N0KuvtKnju9tz5s s YXBzZTog (more content not included)... [facility] Consent for Treatmenton 03-02 Consent for Treatment [id number]#1.00CD:12 7 [facility] Multi-Wound Charton 03-25-20 Multi-Wound Chart [id number]#1.00CD:1 27 [facility] Physician Orderon 03-25-2023 Physician Order [id number]#1.00CD:1 27 [facility] Procedure - Woundon 03-25-20 Procedure - Wound [id number]#1.00CD:1 27 [facility] Progress Note - Woundon - Progress Note - Wound [id number]#1.00CD:1 27 [facility] Physician Orderon 03-19-2023 Physician Order [id number]#1.00CD:1 27 [facility] Procedure - Woundon 03-19-20 Procedure - Wound [id number]#1.00CD:1 27 [facility] Nursing Note - Woundon 03-18 Nursing Note - Wound [id number]#1.00CD:1 27 [facility] Consent for Treatmenton 03-01 Consent for Treatment [id number]#1.00CD:12 [facility] Multi-Wound Charton 03-17-20 Multi-Wound Chart [id number]#1.00CD:1 27 [facility] Physician Orderon 03-14-2023 Physician Order [id number]#1.00CD:1 27 [facility] Procedure - Woundon 03-14-20 Procedure - Wound [id number]#1.00CD:1 27 [facility] Coding Summary.on 03-13-2023 Coding Summary. CD:[id number] Ww+PG hlYWQ+KK5LZMYrO96ubEZqcP4 xB1FRVBmUMtxvQUTARTaPPfLz gxKyWY6wlVTrQJPm IC8+UC4pPFOvIkidcRHjn4J0m DR7A09vlf1aFQpcnAX4VWHjPp Fvdtzpa5cdzCa2VOnaNygpZaG t BFPkrX15LNY7mR91Pk97dCTbn QWwk0fyhJo3ObYjAPWnGAT7bU oaHSvmy1JaSREnN95ttPWry5V 6 SGXokTubdEXwQnJlsUL7gX7oQ Zrmbmyzu3kqwcpdWcv8oy95aP Iqg8F0nFJ6W7PtcqP1VAImlCJ g EpkzzPIJfA0oovomz7lrfmffE sPoHRIyLYt1XAk6WGRuaZmqGt KpGW63XMR3XINetoXgD3JuZOX s tCcxOlF6b6P0Xh4VI2UAYuqsF 1VNTUFSWTwvdGQ+KV30ji84E3 KiHbyeIul8SQOdNXQ4wZJ5cH2 n EEIdDAvsk9A0oJZ1T0IvcjCva z3wm1plMABqAGnfB28icDLmk3 S7ATInuXE0XQPqvHtwRiJhmD8 3 Oyc+XZSueAjct0OhQirst3hay 1gjoNl5YaegKDWboxIdkYvuKL C8d7CoYp6xUMYfqWO4tYV6dK6 i RsYhQcB0GRslW230KxDwmCFpM qaxU89dM1LyqXY+STKkDxv0IM JvsRtsRB5dX8BlIXYkhsjqyFU m mHbjLQ9xEWZtrvawIJNcxT8jO EQkL8w2EeYaHeS6JNepO3CvWI BamcxrDv90oF0vSwWaYzJ4LPq u I1MkveY0ZDVioOKhEEywQTF4Z 51op8K6KUDpZSZsLFJ3mTR5mJ 1hbGlnbjogbGVmdDsgdmVydGl j CYgpOMywJ968SVAdaYubAdKvF GluZyBEYXRlOiAgMDQvMTMvMj AyMzwvdGQ+ZGOqDUN3hNthLIB n yULiBPfzAw4atGbtkItxST0fZ IIsnxorQTZjdE4bPDCclBDghC zlZA9kCAGfouopk268JnJmYUV 0 XDEenDAxI9GxvF0vDeYxGZIbM EAzG4VzgMZjGJqyS613SZyhJj B4IGPzayFoC6OlUKSeoZlxRhY 0 f2S9Rk7Tx5HpdeyuH3TdgYLdL oGuNolvHEe4L0GxHdlchJY+PC 67JDJrNZ24QPz4HVF2rZizARw i OJIvU0PnjC6yDiTlVGObVPEoR yc+PHRhYmxlIHdpZHRoPScxMD RjIyTzjMbgGX9iPp6bWWMzOMD v bImysLIdRtZcf0jpFYAoGZavD S9hqLgzN1WbdBW9SFCcy1y3Wh 45I11uS2WhyAX+VFMziDU5jUI 0 kD1lAgPiDhU9HObjU432FwVlz KWaQnfsd6adf8grvVa9CrR0GR FqxsGzfHfzDKM4k9WiJq06K03 s IHdpZHRoPSIxNSUiIHZhbGlnb s3urA3vRf8+UTPcuDA3jPI5nT 1jKoXqJiV0GKseO645XjVqeLU v Zadnv2juq9gclCb2KxNaWFDkn qAxpDnsCXU8g0WoDb31I7JqoX fwt5JeFff1vy43bDYml2D9lBY 9 Q7ZcESUmybatbQBptMvqDF6lF ULjeaifLHKwzY0gQPTuA9t9Om LeZjR4LLquL2QawbI7PYYcuEB g LEJuhAGPhP8yridng0pwrxheO aEdBPGxAFh9MUc3GUUfzXqpSj GiXGE3XyJ3RKW1aDWazC4quIg n awiopH2hRwp+TWC6fKIirDXHO K4dTerqnPI+IJEmXGP0gRqtGX cxPZGsmU8wGNLpD6t6PqQsJfU 1 GQgtO6HmuyM8MQFqiEDuDBFig IJHrL9zhgtsz3yvsdyoSvLuQL YkNNg1VQo3ZFBjpXtoHwYqHKE 0 XuP9FDU8rWTzkE9giOrsokvpl G9wOyc+NfyhoYkeXBS8EEt8Y2 DpXac2CEEbsVrjWV1cvAIxTUb u Ap2gjLrmtQpwPR6hWWJotiish 998QlLgp5xuHRMfxPLtSWaeTH B0O41jl0V8LZHzGWAaSHW9yST 4 nU0wrAqzdbpzkALosLzrjqZyj XbwDEdjDBtcO182KYPckOdlVj RbCMc3G1NtLuw1NSGvgFdpSU1 n aFRxXZmdUf0xqLgqlTdnGV3jT LHpqxqwy553HyGrv1kfXROxiT EpYBldALI4P99pr1W5USJyQMH w XLZ4dDQ1fS6mqYntowbemQTje MoirqGeeHvlZAtnVGjiZ725ZL KuhZemAvQmrZp8I6FdUeb3VBL z gAhbQA2aoGQhFBdlHk7wvAcaq NkdPA9gTVYijtwdk351HeTgw8 snBOWzwKSoRUamSGB3X15ym2K 6 KVUnVPPoZSB3pQZ4aI0emCltk jogbGVmdDsgdmVydGljYWwtYW dkY926MKZnsTxiBfQgwDnbuqI g KVduWMt8P6WgImctsNK+PC90Y IEkGC36bVDagIFah4cbhBp8Bt QkCQSeYDP8dVidYXcjl3GqCKF t C23wsQBrf6H2XVQuyLzanXVsZ gLjfFL2wB4uOLmykeqom1rrsn gcSudeh5ctew36gE36J20rGRg p QEBdUYJkPPEsJHYqlLuszk9ok G9wIi8+XNWddMW7mWS7fE1wVQ PkFwB4PCrwI544ViUkcNVgWrp j v2wee0jsnDk3HoL0PXBsgjQoy ZrdEBZ4q2GtLp48D51sKAoyYF OwGANfIIPwHQTfwGyzxv8kxL4 w Ii8+LIFfgEU9uAH3bK7gBuVoF vV1XEvjC190ZeIqvFUnRhiqW9 6wY8WlxCR+YFYnPcz2GISzaNh s RX7gnLSoCLksUg3cZLQ9BhCsV hPuJSocF1KcFBExwdcdxulnuG B0ZKYyAZQzjB18Sc0twKnhZMB w cGQKeG8amjjkd7jofacmVsKaW QVtSTn1FXu1VWVpaSwfZzKlDS J2TjJ0FPN4iMHpdB6lyMyskgb g bJ9zC2DfQKLqncdhWd33uA2kJ hEaIiS0DPkpBsa+VEFOTkVSLC LWY27QILQhOSogpNW+PHRkIHN 0 zKksCPhrSSLywB1nETMbK3e2A iUvFgP0RGwmT3JqYOFukbdmNl 28nZ2bJxOiDuN3BIalL0HltkC 6 GJEulWEkOOynEBV0H31gt9N9W MKyCELtDKI4aJM2lP1ezIlllp ogbGVmdDsgdmVydGljYWwtYWx p Q576NGXzmFssPaYdFiV0HvI7T By6V7KqEmw3LEPpyMrqKZ5pmM MqPSkyVj6rfDjaoJusTY3qIMB p rwjzNNZsvF4rYOIqbXMriZyjB A8eELAbokzry841SwAuXEG3RC SjwHQxZ5GckP8hQeTsCCUqOSI w L9NuiZMjVTunX488MBisRvZ3F BLxmqQsU6JgMOJtvBdeYnE7q0 Y0Xq62MAWTQPMohnpzdEI+PHR k DLV2fQhsIQlzIWKryK2cESOiI 1h9KlMyYcL9LQarZ3UdZIYhoz xmBn60fB0oAlDnZqV1XHuoN8D v eoV4DCKeoPOoWMdtUSO1G65jq 6L3TVHiXKMsSHJ5wVX0yT1qqF lnbjogbGVmdDsgdmVydGljYWw t QTdiI623HWIkhOwqEs6gzRF4K 5LrXtb0WRNinMqyHT8raSMoDI pyAm2zlXnonAadYG9zMDHhsrj w YNEezM2cZHQdqOEusJjdXC4gD HFgvtaqe814FtWbNZQ4UXQxwI DpN7RozW6uCaWwPZEzRSKxO8N l nJXuUFofY705NPscLyJ0PSKtr yGpK0FkDYKytZetHcB9x9C6Gp 1UaIHjFQUcPC87YY81MX59A5S y PjwvdGFibGU+PHRhYmxlIHdpZ DStQTbeMEBmQkMjnSyrSJ9rKv 3rKZQiHERygZqibAAiQhVpi6b s KXMqHKrzYE3qdHjwR2YtvHX5I GTpb5r5Id66Q40tQ9SeyKQ+PG ZoxGG5nYF7rL2rHvBdBqD5YUt p J266AmTakGHjMemyz0ddv3uft Wm5FlOxWQTqjbTukSnlPSL5g4 NfSq37F51dHJfpPJDyXKHxOUK i UUOujWmobb9klA1hFr1+PGNvb HZ7yDQ5tB9mGrMnTkW7QOxwK0 17DmThtFVdZivyA95eJ2QwyZU + OFLmEyv2NAWvfBsvIV2iySYnQ FuvUq6lTRG7ToSbLpYrPHqpF2 DbZPFaxguceucouWI3QYIgJQC w xA31Ig3xaMngDm4iXHZeXZB9J PHvcIGcZ8JenX6lSjFoLNNrIL VkV9ZuiXImZCboC404GDofOzK 7 VFOwihLpM0ZcMZLonQwmNbY2o 1G6Km8VwNyhwMNpLD5rJlZrYC z1S4HbUhz7SZNbeWqfPF1wbUF k VUupCz4zwSvgnBloCN4lQAGzt qavt841JiLmr5ohWAYxmYIsLS mfKWL4N40uj3J0CMFeJGHlBAR 7 rBG9pH6ayChsshcjnBNjvObtf nXyjHptEWqyWOgrL440QRLpmP rfDwQCGtv8J9YlGlo9JGJekSl s KV2wzGNgMArqJc8gmGuwjAztL O2aRXCqvikzp217XcShs9jnTU CosQDtEZmhWIC0S28et0F8PPF w OSWtHCS6eKT1wY0mhKgpytraj GVmdDsgdmVydGljYWwtYWxpZ2 32OSLikIqeLf0HTlk4M0DdZbi 0 TKGlgXppLW7qzJWoWWdcTk9we BhsdYviHB4iQGKusjcta431Ze Xee0ehRVJgiXTySEsjFMS3M47 s m6D7RMWyXYWbJPB8rFZ7wC8ff GlnbjogbGVmdDsgdmVydGljYW paCNzvM929NXDhjWxlHfRgsYF y OjwvdGQ+QU12pk39R4KzKrcbL os9XSApTQB5yMY8zH5jURQsQT ayc0C5gSY6Z5WnjfJkpt2ov1b s YXBzZTog (more content not included)... [facility] Multi-Wound Charton 03-13-20 Multi-Wound Chart [id number]#2.00CD:1 27 [facility] Nursing Note - Woundon 03-13 Nursing Note - Wound [id number]#1.00CD:1 27 [facility] Consent for Treatmenton 03-01 Consent for Treatment [id number]#1.00CD:12 7 [facility] Coding Summary.on 03-06-2023 Coding Summary. CD:[id number] Ww+PG hlYWQ+TW2FJTIvX67bcOEogR3 yB8SBKAdLReoeEPFBEEgBDbVv fdCnZR3pxJEaLDId IC8+RZ2iNPOxPunqrTLzp8Y2i FX2V72ucx8lCQuwhJH4LAIfTq Aarnbvy2kbzXi5VIubRkkqOmV t EMQrdY99FGG6pX66Um53nIZeu WWal6nohRr4HhJbXGLrSBQ3mK ggZPgie3SaGNSyZ62ngHWvt7F 6 VBGgxHkrcCAbRuSxbHF0bH1jK Jrkbbbih4hfzmitXrm4nk57jD Jzj7J4jBA2C3KthnB7QZZjdGT g QzfntZMHxF4dgqwrn3aiubjtM cBpPVAvSWn4UDt4IAIrsGjqOx XkOC35DVF3ZHKkkaAwA7ZtQBA s bNbuGoX8x6S1Vc3FC6NWEihpY 1VNTUFSWTwvdGQ+WJ27tt38D3 XyVzjdIid1WOBpXXU5gEU6wQ4 n SKXdPJwil7C4cLB7E0BobmMnz x3pr7ooLVZbEZiwL16zaSRbe8 P2CAYpdEC8EAZfjFxdZgXtfR2 3 Oyc+RFEojMvqa8ShFqtcw6htz 5fsyKc9DufhNRDhwhTmgPdwTG Q0h3EnHe6aJGDgeTQ5hTI5kP8 i ZvFtXjV4MZkpK512ZuHksSXcR ckfY82kV6OifIC+DAXsLib4DV BsaAogKD2rR6GcSOJjtkiaqJZ m wEufKW9oPCBgzwayLZRwlU1hV PNhZ1t6JxEkPsF5AQluO2MjHP TltcloSz18dE2eVfUvVoY4VFf u G6NfqxL2OYPsdZNlVIcfWQA1K 67us9H3CGQiRRIyJCN0hWO7tQ 1hbGlnbjogbGVmdDsgdmVydGl j ZHchPKitL725WLVeyZdfWoRmA GluZyBEYXRlOiAgMDQvMDYvMj AyMzwvdGQ+MRXoSTV0iLrjKLV n tXUrWBbqPw6yxHiccGtaLJ8uP EHagwdoGFXzsG1oIVGlwKCfnX ibNT7dPYWjafzhl517QjQdRYT 0 NAKgnGSuO4MroM3gXzYsRHJgJ AFaO5FdnIWrBIfsZ559MSobBi D8GPWbnbKwX4XqEQOogLmuVpY 0 n6A0Os0Av6FugczyP5IidYWrW dUsLifbBBa0H1VgOwhrcJM+PC 22RNAjLD44PJw2RHA0cRefKTm i OUGxU8PphU0gAcJtOVLnQDLgG yc+PHRhYmxlIHdpZHRoPScxMD BwXdLofTyvVF6rWs9xGBKkEFJ v qPgznXOgUcLby6ifYJTcNAskX F9aiSohH2PkvNU2XPQqq5i3Uu 13D26sS6RknEC+JFCjcEM2qEQ 0 nE3aLgAnMoZ1VCpdN122AfZnp VNqNrwoc9qva8bxxRu2HmV0YM CvrkFnhDomVMF8f2KpTf08K10 s IHdpZHRoPSIxNSUiIHZhbGlnb i8mhR3rOc7+DQKflLI9nKU5iJ 0uYiQiClN6IQhvI818CySykOT v Kkice4uns9twfFr5YrCyVPRtc kRyrZioZNS6o1QbYj87N6KocW nhh1OfAon7bj80gNBwb2K9gND 9 M6OwFJZqqnttwPXhoVhvHM7zJ DLqacbrPJGxvJ1wZMMhT0c0Jz DqVfW8FYtpS4WgqzR4LFPxgXD g UIUtxISZlC9rondmn7ksupgdT rSqQLJcBYo3HFc7SQXinNglJt PdBSN8DiG9WYY0xLVmrK0zaFc n nurbuH8lNgo+CXR0lDDdqWNAT L1hIwfqcMK+IEInNOV0uYxbVL ycFFLwrZ7oMFDgW3a0NnVxYqD 1 TBoiC5YzbnC5ZYXhcRIdBDCsq HZSqV7ahgrhc8vveekvYjFuFA AzIVj2VXk4QQPdfYygBeWxVIJ 0 GlM0ZZN0aMRmvX0roBqckwozb G9wOyc+NxuceWveFFA0CRw1P3 IiElb9NDHosKjoOX9tpWFtGVe u Lp4zvOjsoXlnAM3dTELvipxwf 558WuDfs2hhDOIgqEVoEUbmPP A8A37ek6E8CGSiRDWwWQR8nMB 4 xZ4euDicbfycnPDwiQglanOji TpwNGppPZusQ316IPZeoLshEj QjBJj2W8JcKix9TKBcgWpoUC3 n iSIdIEcnMv9rgVkmgZqdVT2iR CMylpmxo846PpGoy2fxPLXsgZ VhFCnkXLD2P61ei7C5ZVFvAZI w PCR2pBN6sV5ztWbonknrdZOrg JtcgiGkmFssXJzzFZxoM102JC UqzEfvNdXmuOx0Y5UjBdx4MUD z fIwvXY9maLEtFGggSa9peBret EhvEH0iCDJvdgcgq107TiVvi4 tbMEOelDRcVUkiGRP2G33um4Y 6 DNRiABZvDTX5cHK8yI7jeFxjo jogbGVmdDsgdmVydGljYWwtYW erK193DHMepDllZtRoyNwhbgV g EOdhEOs6A7HiFbbubTF+PC90Y SMrTA99gMWufMHon2idpCp5Ew SsMYPrXKL9nAygIWnmh7DpBMP t W63xiAGon7O6IFMauKduqITbN zFtwSX5rF4iVTyxpznqr2quhu ktYshxr6otgk64cQ87W11jBGp p QKNdFUOoYVMgXVEvpZhzze8wt G9wIi8+UCUjqDJ9bFW4gM4cUU UqIdI2JJtjU842OqZbnGOtEcm j g0xua0vhvXm1CmC2BIYnviNiq JcuHAU5k2IfWj83K53lTSpxDD XyTYNyZGIlLWHrbRbfrt7egB8 w Ii8+CCUyvSX5gBD8tJ4lKuGkU mW0KNpxC880PyIbmBNiGmymQ0 9nB8BwpXO+ZJBbDyf1UBMduWs s NN5wfBSoHHrwXd3eJMN6FpFwH qTzAQuyW8UmMLPumtwbcwysqL F9OJRqKOUylO83Pp9mcNoqZRP w uZPZdL0bzsoxa3kkyyrrWsJwC DBlIBk9HXd2WLNiaUskPcUdTP F3QzU7BIG0kERqtU5hiBjtfkt g tV3vD2FdRUYbzwdwJq66gK6lS eTxXmA0OFakOgx+VEFOTkVSLC VUT92VQTYzENhbuMK+PHRkIHN 0 yKlvPOesOCCzxW4fXIXqD4e2F gUkUcB2GSerQ6GhQPMgcpuySf 16aF1dJnBzHdC8DFipR0DgkaI 6 LVOjyPBvQJlwZDG0J58ox4J2U ZLvJEQxYJR2sSI5sS7eyQctbf ogbGVmdDsgdmVydGljYWwtYWx p O377LGSxnIhtEbEkJbF4MuF3O Oh2W2ZfVys2FBBtjXvfGI8jxW OvLGcuQq0ykYppzChlSS1lTJB p uzsvTKJltY5bDWZhwOZjnUevH Q1oIBMszdvgg513IbOpUQT8KU JpkBMdU9FtrZ7aQxIeQHUaMDR w V1YhkWJhQWvcN338PVpoGcH8X HBnxuNsB8BiJFTidSjxTzG9e2 Z1Tb96AVIFGZLvfmfbfAC+PHR k UVX7nQwkQFvcLZTlyV1wPXOlF 6x4BwYbImW8QLzoU6FqGLYiri yzWc34fU4xPcEyQzE9JLlqP7F v rhK3PGMnlPDlHJrnJCC4R27cg 6P7YNUwJNBaTVQ7kTX9mD5wpV lnbjogbGVmdDsgdmVydGljYWw t WGtmZ551UFNarJocAf5hwVZ7L 4ThJpm9HGHwlIwjXI0vgBUvDS bzWv5rlAkniTlmSH9nFUQhbvn w MYLhxU5hXWMwwLWzcGvwJR9aT FUyvfdcz383NzBgXBA1NPUhgY YsP4EihC1yEbDvFVQfSVPjX9Q l nYNuJMciB461SFkaHoG7ULVuf rHuE7YqXESsnRcdWsK6x7C6Gv 3GvVNxVGHhYM40LE75SR71P3V y PjwvdGFibGU+PHRhYmxlIHdpZ XUcXJwuTDYuWzZxbFjzVC9eXn 2iAWZzUUHtrUmebZKbKkXqi4w s ZJFiIHzvZE7xdSrdL3FicDS8U KVpg7f2Wm22U29kQ8PhjMD+PG HtgKL5bWC9sO2pRdDcEmD3RXt p U563YjQllLCeRxyoj5rmr3tfc Mm4QxTfGRZafaJynPqfJCK8w3 CjCe95Y83xGZjzGIIqOHHhLSA i RBWdpQycoc4deZ4xAj1+PGNvb XR7zFV7uZ8vHnWyEzY3XCkyG3 41PnWanDMsIxheV27qN2OylYW + RNKxZjc3OSOghJyhUD4dtACkQ XbdEx8rKTL4SaPvUbZzEQbgH3 WzXNJothccrludzNF1PRFfKPL w bL48Jq3kiLqrGv5wEBFgORV8V MRuqHNrI3ReqU6gQbAaXDMhPI RoY9LpxBXtQSkcI757AShjVfE 7 VJStngGdO7ZjWQXxuVmcXrX6w 6R1Xy4KuMxivPJlUS8yLjWgWR z6S3XtQpa7OTZdiYaxOW6deGN k EEoqDy7ezBsvfUueSP1mDQAbk sohk115NyXku8wdNEXojFIiQG voOQJ0D40ic8G8MKSfOSCmSKL 7 kYF9rH2raZlfrbmaqCKydRyqw xMtrDrkXUvrNGvnQ680FYWavC jjImIOGlm8I6MoBlf6KHZbyLe s RD3vlJXeFRwwGi3abLlnxFzfK N8nYDDgnodyd682EaKgi8qjIN SeiJErMQzpVOA9J55vy1G8SOB w GRSbRZZ5dUK0yI8jiFbbxpprg GVmdDsgdmVydGljYWwtYWxpZ2 22IEIxhSfpCn7UAef5I1VuVde 0 OJOezSmeKI6rhIUcJJexZo9on BqlmYgvPF0jFUYrdnqfr307Ad Jsz1deSLOvxBReKIppGGO8O39 s e0I6MSHjOALbVSB2kGI2pF8po GlnbjogbGVmdDsgdmVydGljYW xoUOpkU680RHXkmQheBaKtnCO y OjwvdGQ+HJ56na02U3TlBfwgC ty8XBYkZTD8yXJ9mE3rZONuWT skt3Z5hKD2H3RaloUnex3hs9c s YXBzZTog (more content not included)... [facility] Nursing Assessment - Woundon 03-06-2023 Nursing Assessment - Wound [id number]#1.00CD:1 27 [facility] Nursing Note - Woundon 03-06 Nursing Note - Wound [id number]#1.00CD:1 27 [facility] Consent for Procedure/Surger yon 03-04-2023 Consent for Procedure/Surgery [id number]#1.00CD:1 27 [facility] Consent for Treatmenton Consent for Treatment [id number]#1.00CD:12 7 [facility] Correspondence - Woundon Correspondence - Wound [id number]#1.00CD:1 27 [facility] Multi-Wound Charton 03-04-20 Multi-Wound Chart [id number]#1.00CD:1 27 [facility] Physician Orderon 03-04-2023 Physician Order [id number]#1.00CD:1 27 [facility] Procedure - Woundon 03-04-20 Procedure - Wound [id number]#1.00CD:1 27 [facility] Progress Note - Woundon Progress Note - Wound [id number]#1.00CD:1 27 [facility] Coding Summary.on 02-27-2023 Coding Summary. CD:[id number] Ww+PG hlYWQ+HK0OEZTaC36iiTVgoC7 rX2AIUMtBKavyKUEJTZiNVvZm fiJoMG0flGUsMLWv IC8+FJ6dBWPtBdjjyAUzv8Y1m GC4I47tul0oXDchwUL9XEMdDc Lwkpsfh4jkyKl2LKadEzfhUdR t MUMcmW87APU9pP65Dn07lQRso CNci0fvvRh5SoTcKXOxBGB7kU npDVwgu6ZqJKVeT19erXRve8X 6 DELnoPewzHPzWnEswNC5vV1fG Jqfuwcgc6hxjerfRny8lg09cA Qwq6B1dVI4D3NjeuF4FFYqaHE g SomfaVSSsV8ayvnaq2yyafjfJ kUuCDPbNLl5XAz3YACrtOuiTo QkDC56SXC9HDAldzXqO0VaMGH s xNfaZbI0u7A4Ta4QU0CPNfghG 1VNTUFSWTwvdGQ+PE56ll34D3 KtFsmvDmn0UXTkWCB1kPB9oF6 n HUVuQYvxf4L3vRL3F0DbicXlt o7tr7zpRUMxHUowF36mrXWkj7 G1SNRwyWU2JXZlpZzePyTaaX8 3 Oyc+QXFhlGoon1WbEqenl7iuv 4snuKj0JaqqVVEguvMocRtmXT I8k8ZtHn9uINYbaXA9mOB4oZ0 i JbSrXsI7VEhvJ202BkCwdVRoM lfdD10uN5FquJJ+UJSpXbq7XY YoqHhtYA7hX0AqPJMyndaouGK m bTmeSL8eCBYmriegKYAspO3tL ZCtT7c1GsZyArH6RNkzJ7DzKN ZnmwziBr40iJ7dIlCwXxE9IAd u D2TfuoP1GHKztBJuUZbwVXG9V 51tl3I4FFPkPNTjHQF8hXS0gS 1hbGlnbjogbGVmdDsgdmVydGl j DLsiSLdiE667LRBouFimGcUaJ GluZyBEYXRlOiAgMDMvMzAvMj AyMzwvdGQ+ZYFnOPS9vShkHYO n tEEpEJbcMp6jgVcqjWgtFI7eC LZyfwrvYJTxiV5lFXWzkVVfdH ryJW3lHWTmbcrap153YoAiRZR 0 LZWetJDwT4JjwV0lBmUjIIFvK GOmV4HeiPNzFOhrR026XRdyCr F2HBEpgmZqB5RzOUPrzWgaNsJ 0 z0A4Cp0Lv6CdtizlX9EupHGbN lRdNkmoEKh0B0GgEvxouCE+PC 65TKJxAJ48PHb7KNQ7aFrwOXt i JFMtQ3OziL5kPdRbXTWwHQEgV yc+PHRhYmxlIHdpZHRoPScxMD KmBrShzEhxKV5iGl2xJKMeGEP v xYchzKSrOaKwf9oeXRGmNApeF V2kyMjuR7AnhXX8KHMid3w7En 59L66wY6FirMO+AERkmLG9hDH 0 zX1vHmXbNrO3BVbuI570WgHbe AGnYjnux8xfp0fbpBk5GaW8LO LxrtJutChtKYV9d5WeOy31G40 s IHdpZHRoPSIxNSUiIHZhbGlnb m6cjG3gLi4+IXAixJC1eLD3qV 3eAwStZnM9LDfcK486CvZvzAS v Fyhta0hty5ozwBw4InTqRXOfy iRrsHzlFUG0q4JkJn64A9UonV zxg4EnBhk2hl00lYWnw8A3qNB 9 L6DyABHdmqfhpTQdzFjpCK6pC LVscwoeMSZezO0aRUDmK6u0Dz ZcBsQ2OFsbE1TtvlT8KYEalLV g QASrdAGJrD8vqwanq9iqtnuhR mMcDCToMMr0YAe7WSDlgBpkDx OoHTT2LmH3VBE2vWMpdE0ggUy n lupwpQ2rLrv+QQQ6lGAptADAZ V7oVrmtfSG+SMNdKHE3wTfyTQ cxBYTssY7fDMPrJ0k5ToUqHxU 1 MCpaO5FvyoJ6ONCssTLuXYPcv ZGDsB1tsbbws7jxetvyOuBxZG XtTQd6IAp9CQQeuXnrIwFcMXG 0 YbW9EPK3pNXfqT7krMcebfjvg G9wOyc+PiihrYmvJHY6KBz9L8 VyQsh3KSXxeJnuMS7dsYPtUTe u Dw0dfXekyXbcZN6iEMAliouci 541GfMhw5wrHQWtyCJaQFmuVF Z5H37bz4W2DOWuTASrWTV2xEX 4 nB4raDfnksmswYFjmUxqntRyf DcmPKakZKfmU677TRPaoYrzTo UoTZe3G7BoAun1GYIkoDvzPU6 n qCFxWZrsTz3gjKoivGhtEH4hI OTbupvgl672UtPor6fzLKAcfA PtUAnpMOF9B55dq4E6YLCkREM w NZW3eSV4oQ6vqUlivreqbEFrw CmhzfWewFmgRDvhFNxdW703CO AziWzwFqPpfAh7P1IyIme4JJJ z tGuxAI2puZRtJTdrWa6pwSqfo FxhXP6bZYLtdmzdu734GuOdy3 ugMUDzeHGtVFvzRUO6G17fe8B 6 LADbHXHzJLS9eIU8hQ0gpTkok jogbGVmdDsgdmVydGljYWwtYW koZ454SEEigBziUtPccGyavlN g ZGauBBk8T8HnEdvsfHX+PC90Y GUaUI00dUWdbGUjx6eidSe3Oe WxETVeCGY7iWmzRDitt2PmKLA t Y18mlDRor6D0QNEwdUkrhVElP dHruNO8eW9kHIvnkkesh7ikpr hgEvnjf2azru95aF53S46wYYk p UZYyQQHlIQZkCWKqtBzvzm2kx G9wIi8+BFNpzMK8kZV3jK8kVY BxLbI9FOmlX018ZyDkcDSgTig j a0nos7zqlDd7MhL6QTEcamSea AhcXYT2a8CoMc39O60gDQyoKP SlVRJhDVAiIEUhjEoxjt0hjC1 w Ii8+UUZszIS8cXV9uZ8qGeTaK pU2GJkfS142DwMiqVMqTjzuE4 8wJ9HmoJR+ABMaMeq3XDCfdCz s HK8bmOZkXDruUs2vGYD8DdZuL sNmCVbdT9KcGSMbcufrshazqI I0KURfRQBpoI92Ro6xcVdaHEI w bPDYgZ0fuwczr8sldufsPtUcS CHuNGf6LRj6OUDqlLmbJzCyBA U5IaO1EYH3bFGwqM1npJsurvy g iC1pT3HhQMWpelmzBj33oF2eT kYyQhA1LIboXpi+VEFOTkVSLC TGD31GQURtMArkaUC+PHRkIHN 0 rZbiXLvtTNIwhK7bZEIaS0r6W mMqXzZ8KLyaD3MzTEJyypgfXs 44pR1zQxJyKpE2XWolL2FvdrL 6 RHLraJOdFHbwLOZ4L74ji7L2U ZTpZTPuBFM6pDZ3iX9jdMmkmu ogbGVmdDsgdmVydGljYWwtYWx p R804LDNgoDrqDfOnYpT8QcQ7X Sy5A8UoLwt4PFIrkYnxFC4wjC JeOHyiEp0zxEwdvOqbUV0pLIS p smawRDFubZ5sFEKsdSTzuYooE N0cGFFxzngov709MrJeBPV1LV RzxHNqS6QjlC0rWmWsUVNgHAL w H8GfiBZtKPnlK405CSctJgE9N JDegdSpI6XyHCKhqKpsDuV0e8 I6Qn32FNXTXXCwrkrvoUY+PHR k ZMU7rDtvRRvlPGOvyG5kGETcV 0q3LmTdZaM1ABdsV1EpJCDwtb fgHx57xF5fAgKrGnR0LGnbS3U v ceH3QBWwsBYoMSdyIAO2U20bc 5L6LHTsVYGvSKW3cVK0jS4gsU lnbjogbGVmdDsgdmVydGljYWw t TJbdQ687BFLnrAxvKr1abHR1E 7RkKeq2NYVbpKzxJP5wmWDuZT bxCq6coRoinUhjXM4tMXAvnsv w TPAeaG5qXMQlySXcdSkoPH8tZ SBfbzwlm299UgOgAUQ7PRSzxQ DvB4CtvB6qDmMeDTPsIIQpI2U l oTFcERivG221CYcjBbL4ZCZwa hEqR5LmTDVffWklFtD5i4J5Dc 9LcZUtGEAuBM71JI50OL44T7A y PjwvdGFibGU+PHRhYmxlIHdpZ CSlQUmaPWEbUbLlzIcgBU8bJo 6uQZVmCEOnxIfrrYRpQaRtu0u s EJJbCLlnGU1pjJwtF3KakXC4X DSxi0f1Ry09D09zE6YatNO+PG SycCG5yOQ6xU6gMqPcLeT7LGe p J455VjPzcGYhAaddr7rhm5jtr Ey0HfKwNEAqesAxjRgmANR1t8 QnLm70J98kNTtmHWXnQCHrDCL i GBSpuQewhw7qrA2cYk7+PGNvb MW3uEK3eA4kKuQyJmH5DFczB3 74XmIabGTkExmsB21oW2AfqZN + TOUsSvk4HXYtqBrtDW7tiWMvQ SyoVs7zHAP6PeDqIfEoTZkgO7 XnFRHmskfgmrutsRG4EJBmIPX w bN24Pl7inKouQz6lQBUoGQM0C OEdvCYhZ5ZrcK2qCzHqCEQfQE JaO9KbdHCkLZgpT352YWqhBfW 7 WLOrzwLgB5ArCXQonBxwZiD8d 5W2Vv6UpOozqFIlMG8mHaYnWR h9U7HkOwe8CWBwoYbyEQ3zbWO k FKmfTq8psGohgWxjZQ0bSWQvm qahm055SkVfc8wpBJOkmONrMX dxPAF9Q46nu7A9DCKrHFLlLOG 7 dCD3uB7wbAdtazzltDHnsMkye gSuoEbaJEyhJIqgP208FWKkdZ fvNqYSCvy6N8MtNan7BSOadLn s JR1etHUzBZioOk4kcWtehZyhU R4qOVLlsjaeq934SsHls7mwTP TwmQSnGKnbCQS7S18yt3Y2MDY w OVLhZFB2gGC7qT3weYrblrjgg GVmdDsgdmVydGljYWwtYWxpZ2 22WONuiPdhLw8ZTlt3V7KiPci 0 EERxoIphCA8raIRxTMfeBj1cj ZanjRhiFZ5zFPGcmmkis161Cw Tgr4faDSZxuCHrRAefAII6V79 s d8E5LJGqFEHlGAX5nTD8sP5ld GlnbjogbGVmdDsgdmVydGljYW tgPNuuV699KGQztPcjEwNnbOV y OjwvdGQ+QF52lq81U1JzHlerZ md1UKUgSRV9mIZ9vZ0hPBLvCA cwd3U7eTF7P4AyvdRiyi5pa8g s YXBzZTog (more content not included)... [facility] Coding Summary. CD:[id number] Ww+PG hlYWQ+WH1SAFJaB61ptYXgrB4 aA8BZDIvITrfeOGBIDUoRBeZb eoDiWF7wiBHeJPZq IC8+RQ6wSEIpHecztZJdj8M9s IB1F63tsc6yVPfkvNM3AMTtLg Jsiskwp3emrAr6RQznVjwmAmW t DMBbrC35LWC6bM86Cx32sOZwk GDge4yauEf6QfTmOUSwJLS0dE brCIzib1WeSRMmX30vtNJer1E 6 NMNaqPampZPbBoPyyZJ8vI7mQ Ogruthhl1ewugewBaz8jm09xU Kee5R5yNA8E7KzehU1POIenAS g QmnoiCVQdP1klobbd2kityjrF xNxDVOrURg3NPh4QTUugIxjNj HqKO26RYB6HGOtivEkO5XkNHO s gFqiRjW8q0A1Rs0WZ5VVZfhuP 1VNTUFSWTwvdGQ+BH43qh36V5 WdQgxjNce8OFTyKVQ9fKG5qZ5 n UVVqOYigi0B6vLK1G0KtikHsx f4tb1ugLFLkCGleH39nqCZfs9 T1CAXbiOP0AITmpWriTnAqgC3 3 Oyc+OQTykWeoh7BuVazyt5arb 6bkxWu3EqcvRZIgszKsyLxdQM H1g6OgLy7nWTRyzSX9eZR7eL0 i LyVwIlA6DZuhY791EcKolBBgV exbZ73hX3NtaGN+FLOoZzl2WP YjuAwaBD3oE7TaHYCvhbjpjUG m zGftND7eIPNvofdzCNPqrD1oU PIiB6u7KqQjIiE4MHhiY8IqWV OvbxmvYl83aL3tIwRrDnP3OMc u R2HpyeN3PBRyyWXjKOteAYJ4E 50lc7F0MPDzNMVrQEE3eFC8lZ 1hbGlnbjogbGVmdDsgdmVydGl j HQwpZFwqP704YTHspIzaNbKlR GluZyBEYXRlOiAgMDMvMzAvMj AyMzwvdGQ+YZLiUEQ6aZxtJWN n fVDzSPkkMu7lvFaugDksQB0eC OTwbwmfZNUnbK0fHHSztVSkeT qiRF4cFZIqpalxv662WpDyGGC 0 TPHbfTIpU1HmkJ4tTbEcWKDpH JPmG0PyeSXxZIgmS549XJghJl Y2CGHesvAlH2GrUOBdhKexXnE 0 x6X8Lf0Bq3OqlyfiT5AzeXYeM bDxXczwAMn2F0BoHgobjKE+PC 11CSUdGJ84KHz7YTZ3pKruVWj i YPGbV4HrgJ0wLgNfGCNeVWOsG yc+PHRhYmxlIHdpZHRoPScxMD UtInXozXarGH3vAk0xZBSeQGP v rRdpwTMgThFpv1dvRQXeDRaaH Y8syEgjD3QtsCB8TKSch3q8Wt 58J82nW0EwdZP+WZGqiWG8bXR 0 lI7gQbNlIgD9FUteH428LwAfu KUaRlqzl6cud5tvcIi1PwQ1ZU IqnfVwhXlwHQN0g3NdMy97S12 s IHdpZHRoPSIxNSUiIHZhbGlnb k9noR5cCf3+UGUbcON1eIL9gU 2qPvRnRtK5NUzzU530HaThxVY v Ihujg8uev8jirEa2YjUlDWOry qPjrTwuHIF2j8ZxUm92R5RgzG bbc1MsEcl7ey29mQZkb5X9xIM 9 I1HzNDRebxmgcDXkqCeyTS5oP MKzcphtXSGzqR3tVGIoQ0w3Hy FtLgI6BZeyW7IxusM9ZJYjuDC g SZQcbCKYbL5awhtfl7jlkbslX bVvUYPmBFo5TYa3WPKwbFwlSc FrXKL3NjO7CNF5oMXvbT2ufLw n injhyY8lWvq+PPP2rDRpkWGSF P7pPmirgOQ+OPAnMSA2uNhkQA oqDJBcgD3cUQSrM8m6MmBsJpC 1 QBhgR6NkjfN8GHEydNHvODUka FQCsN0vzghgh3hqspbtOwKpXB TdDRz6MJh9OECheUetVyIcRZK 0 IkL9MQX5cXTxyA6jkDalxyuyw G9wOyc+KkowdPuyAFE9OYn8L8 BlQdp6HKDtpQamSU9utRJpFHf u Pr0egEvpvEcxGR0lJAYtdluyy 657JyVyv3gqFDTmfMJoSTcfXH G8G07ni0H9YFVqMMBpAVP9eXS 4 nB0hlNxouoeydUVfuBbjpcJdo KjuNNraTZdiC221YOXxlRzbXw NvQTk1M6QcIqj6LMAwiVhyCW5 n vXCtSBnoRr0xpCcqgGrqID9dS OQpvdtds576KuGhh1ijTZYcnC HuWGmrABW5M90fk3G4TSEhBJT w ZCQ0hQS4iW1gyVlsyxwdqIUiu VdfdeCapChrOZpnSDarG034KX GvzPbeByHylNy8F9JaLyk4SBX z xRzdLC5hwGCzAIiuCu6uoLetq WfqSI8kAKQluhobf330WpIzc4 sjUZSufCEoMUpzROD5I33xy9K 6 EQAzHERaVQD2xAU5oK3twWvzq jogbGVmdDsgdmVydGljYWwtYW crW151XVRcySpmZrUnsBdykxL g XUpdDXv7I0BiEgtxgPX+PC90Y OZtFE60qQKoqFHbu1kooAf1Dr RsCXLnPTN0vZtwTAupm9GiRTK t R12tbCFji4Q8XEBboNfczZRhW bXtuOM6oV4eSHlnybcvh7bycn ruPokys0uydy06oY34W79jUGj p KZYzXPMjVSMlDUDftMhxmy2ty G9wIi8+PPPwaNA3kTT0uG7jMU VqLwR2VExiP627TsQmoEQvHra j w9xzq5zruKw5TjO3OBFfapFrt BafXQI5y0PqWk03V89hOOdwAT OlOPJcOMCbDFEhsDzmeq9agK4 w Ii8+FSYgzZC9bFE5oO7xHrTjO mY8SSvxG459KqMhkWMeRkyaR7 8qG1JksFE+DGLeHrc2IWTjtUt s VW6mcALeIXzzCu4jGDW9HdFdO jRdIZcjM9KlVSNahpbmcacktR O5AGZbOWSujA60Ez7rtUksFUV w mEAGwU3cnbglm3teewsyMyTqG XOfJCa1OAm3UQCyoNgdZyLrUK R5LrE0ALY5eTQfuK4ueUifsgy g aZ9hS7ZbTPPeedcwXe50wP2cJ vVsNmM6YRjnXwr+VEFOTkVSLC FTV68SLNYpKMfdmDW+PHRkIHN 0 xJdgZBkwBJGoiP8mMCInQ6u9H lXvOtO3FOqvA2DrACHeevnlLj 77oG7zDzXiSwS2VVkqP7HehiF 6 TLPcnUQkXOniATC2Y06hv6V7V BKdZFIdSRN3kSZ6xD9kgKeufq ogbGVmdDsgdmVydGljYWwtYWx p M335HZNvsWytUrJmCtE9QdS2I Px1R8WqEhr4ZTEkvAtuNM5yoI TpKRbyLv8ayRxexNjaWZ4lYIA p klbrBWJbiA2iZLQhsLBxxChfG A0eROVsdigik502TqFiPXR1SS FckIFpF9HeqT1dIoMbQGJcKQI w K7EkjPTzXLvwM853AVubNrB5Q FKrkmBiN8FcSBSywAciYyQ5h0 T5Mk42XQKSIAButdsjwSL+PHR k ECQ9yQcbHTovVVYwqO9gEOPhA 2z4NsUiQwP8PBoeO7OwUEYhif znGj57gG4nXfHyMbZ5ZHwfM4W v dbP0ZXSfcZEjXGkgZIX3G96df 2E5XHJjGANbMNH1sPC6eL4caK lnbjogbGVmdDsgdmVydGljYWw t BTsuJ596XJRivCroFy7ugSH3P 3NzYel7VHIoaWpkPR3rnBDhJH pyGd9jmNrwvOeuGH2aBYUnaoy w VAZwtG9xFDRooXSihDirAD3fB RSjdedgt845FlKhJXF2LLOvwN MxY1UhcA9pOoUnGJDjLMMrE5U l xZPkDGmtQ035DUdwDuW6NGAlb zXjE1KrJCXfmAejZrN0i6I4Cy 5IaYNuBFZpBR46GJ83GF57Q4Y y PjwvdGFibGU+PHRhYmxlIHdpZ UApMWwsWIUoTrTbmVrdPU7kNe 1sJYEgODZunMzsyUYlTgNsb4z s RDOvOByhDC8zcFeeU1PqpYV2F YFyv1s4Qp81X74yH8EbsHM+PG CthVN0eVM8oM1pCxLpCiK5FJl p Y953QcEhsWYpXpxha0bvj2qea To6IiVnNETcffNvpIpaLXL6r3 PiVl02V09cNKwdGTJjLUKdATM i LYRotRermv6vjK8uRa5+PGNvb SY3dGK9xW5sOcExCtA3JQmrP4 98LsOmkCMcFxijD32kA1TpwAK + TASnGxh8RUSquYbbTC1hzRHwY WsjDc1sBZH5QkAlRtVbQRfbW7 DwXVTlwgivombshOS4IHXzUJY w dM24Fx2qySmdMy6aPIAeAGE9S NUgkKSyC0EzjL4aHwQjUTRoIR DkW2LxqNOjSXqeB246JXtdMgV 7 VLGwysMqN6JeNAKkkXtzLaZ9l 9E9Jp7WdVzsxWPiCR5iMiPnSO m9O0KrJvg1UNTnuEmnGY3hpDC k DNpfTn9wqJnvkCnuKM6fYMTtp mzlv680VwIlj6ouQLGzzBNlVT tyXDA9A36gh9V7CKKyTEIrXGH 7 kGZ4wL7oiPquurjinZBjwPhbx rEyuVbxDOwvILzvL632BHRkjH anKlUGYzo2E3WuDjk5PKOtgEr s DK0ycRXlCHpdZw2yhVdyqFhfR S4zMCDwhrbgz127DmPgv5ekIG ExgMKkIAxnHFM4S27eb3E6MQU w RPVrVFH7cYO5fF1cbWybyxujq GVmdDsgdmVydGljYWwtYWxpZ2 15FITxgMacAa8RBod3B9RcSab 0 DPBxoUspMD7ijKVmDOkrTx1mc JzdmPmbGA1yUDDrmlanc740Ga Uji5mqWEPisCYqTJwhEMI8A67 s m6J4CMKvSTHfTPL3xNM7kP8jz GlnbjogbGVmdDsgdmVydGljYW plBUzgA115OIKsfXreUzHjnET y OjwvdGQ+ZS68ca77Q0AtQhlqQ ul0MOGtWEZ3jIR6cR1dMXDuLW tmp6F7zFE6A5PwkiFcuk2sw9y s YXBzZTog (more content not included)... [facility] US venous duplex SALTY [place] [address] Ultrasound Report Signed Patient: Yousif Aguilar MR#: [id number] 875 : 1945 Acct:[id number] Age/Sex: 77 / M ADM Date: 02/27/23 Loc: Room: Type: [facility] Attending Dr: Perlita Reno AUTOMOTIVE DIAGNOSTIC TECHNICIAN-C Ordering Provider: Perlita Reno APRN Date of [...] Lonnie Vasquez MD02/27/2023 4:25 PM Dictation Location: [place] [address] Tech: Maureen Denis Transcribed By: TONE 02/27/231624 Dictated By: Lonnie Vasquez MD 02/27/231623 Signed By: 02/27/231624 [facility] Coding Summary.on 02-26-2023 Coding Summary. CD:[id number] Ww+PG hlYWQ+TV0ATSZvS14arPBzsD5 qC5VBIKpOQyzrYFJLHAjAVfAo tpFiPS4wtXDwLDVt IC8+LU6xOOSmIlsqyKDsq8D4v UD0J15snz4pUYxtxQP6LQTvOo Gvjpvor1qidFj5WApdSdgxXeO t EPZunJ00SYR8tT25Ok51eVZrs NAfx9fhkRb1KfXpFFPoCDP8gR oeKSpcc8BmGVLwE47jiYHgu7C 6 ORRusRowaVJcZjXezMI0lN8yU Ccttyuau9hbuzybJiv6ry01dQ Cmk5C4xKW4L3DlbcI1YMQibTZ g XznufZSApI6glixuo1goumlyT uBdYMLaZTx0SLc6OJXirFlaXu EdHX40UNL8UPAmujUjL7SrQCN s kDqfSiW0z4W4Me7CC5YDGbohS 1VNTUFSWTwvdGQ+LW79xc01A0 WlPnpvLux3XRUaLPY7qYX2dA0 n VLZqTNlmy5B2mAG1A1ExboMph i6vv7taMYPyCUsxL13uqKXwh0 D1RMAnqFF2OLAosXrrXhOawO5 3 Oyc+SZTdgVpup4FlVyrhb8shd 0kxtXh3JrslDZFkbtYkbCrcHS Z4l8KoBs0jHTHrgNL1oBN7lO0 i PiZjWhK3KFdlA524XvHxwSEaM ojkM18nC8IubXU+OUWxGnc5HN DatYzzIF8oD5HcDOEhjqoodCK m dKuxGW2jQNWleqfwTBFciE5rP KPdO1a4ZlKtXfX5EJptF8WiZO CstuxxJx69zX7fJbDqEiH7JOn u E9ZlhgO9LICqgZVfLYqtQIQ8F 26jz2Z2QEPtGITeWAQ1xTZ9nQ 1hbGlnbjogbGVmdDsgdmVydGl j FZnhYKzjN398MKDobKffTaEcD GluZyBEYXRlOiAgMDMvMjkvMj AyMzwvdGQ+OWIwLAF5pIrbZCA n nIGzLWzmHm0hkRpyzRppTV0wC OBhbqmrBYFraK8uTTOsdPEquJ xsQI0pVRIywzkyu529JsVzMHS 0 PQPudVIjT7EtnD7fBwLeAMWcD UZcR0SguNShOWwqB524OAzmKp T9BXOnqgOjB0EdGGHxiUjtUoP 0 f4U8Td9Qw4LtjotpL9NdsSDxN iWtNmmiRZn0M1IeBrufzFX+PC 85IBRgAK09ZQe0PCM1cWqsJTu i NJSpJ9UspG3rYyJjSIXnFKQjG yc+PHRhYmxlIHdpZHRoPScxMD FeTwBgjUhfBV7sJu4sCMUsERI v jXrvsKUsOvRqe0puZGSgBZcfS K0qxXznV6SsvET6YHNpd9l9Nf 64W86zG6EfyBG+ZBKebUF4fLS 0 sK8nMfHtXrT6FFauI313KyPjl BEsXqoia4aro5xsrFt4SaH7QZ JucpHjnQmjGCH4b4AzZo37X45 s IHdpZHRoPSIxNSUiIHZhbGlnb z7mfB5dRg0+EOBnaIA6pEX7lZ 6tLfCuJwK9HKmlR295AoUaxWS v Oujpr0ojy9uheXc3PoGhPODof bEyhEznGDJ0m5LgKd65D9SlcM jic9RpEga7dr35tVVwt2O2hAJ 9 N5HbGBGljnmqnPZavXrxZZ2lZ GNmfcexGEGfuT7oYFZnL6b9Mv GnUiR2GBodK5BnfkN8TVHruBA g TEJfvDHNoI0tbvjyc6exagjoV kCbSMAhMPe0LCs0KGDleDdaYz CbOOE5KaY7DGX5tZOkiF0wnEn n gxcstF8jEeg+BIX5bWXyzYOYD P3eInoqsRL+GGGsHOA6tEppTJ ewZIJneY5lWFLtZ5o9XxGhPkR 1 WVdzP2PuhbV2YHKroXKkIILov BWNpY2jkaztu7qwbdlgKyDjZF JdBDd0RYe8IVAotOqbJoUuVHL 0 MwM5JLD0yDGyaO3seMmbshnqd G9wOyc+JxgpwFmuSJJ3WQm3Z7 JrWcq3AGOzkBunXI5vwFPfNCo u Fb8avZandIsxHW3lYBDaudetq 191YwZef5yeUFUaaYCkFMolZE G0W47sj8R0YKHaMVNeUNM8tHA 4 aT8aiDlunfzjeNKgcDmdvoWwj PmhFZvzFAvrE829OCLuoCkrJp XjRVx3P8ErQar8OSQgrNxqBT5 n gIQwTYiuZa8ddIgvwThyIL2bJ BOeqdfna993BuUfz1klHXKpwZ XfELjfNRY7L70bw9A2HXLrAEI w JZT9pSN6bH6kuTqjtktdlMWxx KcpsdWqqOgmYUjgPZegT143SD WnyPguUuNlnHc5D1LhVnh2TDV z jNvhUX1dgYWdKGaoTi0whSyww OwdXR3eQGVynebco061QlIyr8 boRIRqlAMnUNdkEYH5P39jn2T 6 RFAsUPZgKXY7jMQ2mP1pcAyht jogbGVmdDsgdmVydGljYWwtYW qtQ162BGDqmEgoNhMlmNmxuaV g XQfyBCi1C8EbNlpkdFV+PC90Y HRhKK64kJRvqNLzd8znpLu6Cd MbNNHaVSC9dSltBRxwf4KsICW t S09mwNAbd6Y5EAXocGvesWHbM rAkfDW0vJ6oPOphyfdvz1bwiw pbGbtbd5abrn85sQ32E47sFWh p IEPqCZKzSSFcJLIclJsfkb0xi G9wIi8+ABOcbSU7qCH3cP2cTO BoDyI1EKpqU946XhHjsWQtPgl j c6xhz9ffqWs9AcC1VTUfhiEyg VymQBE9y6DjTy85E33hOUajIN KhKLCcYWRoBZNzqMlbag7jrL1 w Ii8+AMEcdLF2oHR8wL7uIpTkA fL1IPmtJ869AyGmoGGsPzkiR9 6uZ1MwdGK+RLNfQpd0QEQueKb s CP8foLKxHJczXi4tMKK0FqMoY tTmKXovZ9XzVMRxkcezlohdvQ H2LAGrVHSzoY45Oi0soKpsHWG w gLWTbC1pexwob9pecqycNsAcE OAmJOk1ZSk8DDVdfIzvHdVmXT M9YeG0AND9aFQevY8psCmbnem g xE0uB3YwJWXjunyuKa16kQ4zO pQxHrH2BVpsJtp+VEFOTkVSLC KNY99TMGDsCHshsOB+PHRkIHN 0 pZqhTKghDKWjzJ8rQJAlG1d8J xCaTzL2WWvfS2FnAMLekqroXf 53qA1eKgXiXwZ9PIysV1HvrgM 6 PKCajMRjYRhbEIH6L92bs2L1H VVyXVGrYLT5cRX4tB0fjMflqt ogbGVmdDsgdmVydGljYWwtYWx p T089VTUsjNtyWbQoJoT8TxM4S Dm1U9GfDon2UAKlvIggAA9adD WfVQvjSm7hrDwvuIsaUH7sRXP p nzonYGRuiW8nIPDaaXEspNgkX F8qATIouinbj270ExUjZGR4YR JifMVoX4VgxF2qSlSdXOMdLWV w W4KmpCKgAIrmT642VDfkSlY7N WVryhMdM4XfBDPioFodMzS0o3 W1Dn32JQXWUIOomksijQH+PHR k MXZ9gWxqXGspHSPguH9tEXXvO 5t4JiFbBeG1SYfiO7ZiMCIpun wpNe85eO2sAaYtLdI1YQkhU8P v ayQ8RSRizXRwDGjkRFT7F77rm 6R2ZWUuWQNdFRL5bPH1jC4zyC lnbjogbGVmdDsgdmVydGljYWw t ABwuZ672KEWjiVtjTm6scNV2X 3FlIpb0ORXgaJueDE9nuCGqJL qiNq8klTdemKxnOG4jKXCptpu w QKMmbW4wXYPylMEgvOdjHB5rB CTrwyolt686UcYjLEF6EGLlmX WuF6MjnO8xLmQmQMJvIWAnC8H l bXLgZYtsN127WHwqSpF3NNCnv kUcA1JjLUJsdQpuVwW7u5O0Ka 3WrAXuSSIqGR17FY03TT06X8S y PjwvdGFibGU+PHRhYmxlIHdpZ GVyMIlmMCQwWuHbkMwnOP9zRm 4sDYQzUWUciHtchQToLsAhi5c s CTWpVWdhSF9dzIvxY1KryMD0W YRzd1y2Em33Z10dI9GhgPW+PG FlpPA9fEH3bJ5dGyNpLvG6HJr p A663XjOhtOXzMlqxr0jdm4wjt Nw7FhAdWWIfdvOqdZqqJWV7t8 VdPx78R76qUNesIHFsEANvAGS i USTwpFkxtj1iyR1aAu3+PGNvb AI0gPY9jK3aFiUrLiO5ZXhqX3 50YiKaeJJfXxbcR18iP8DwpEE + UTGsFeq6NFLyfQbuZB0xiEDwK ZmaJa8tWKY4VbVkJgFvGFjaZ3 OhEVCerqignvslkUJ5RFVcBGM w fK47Hb0moVibWy2iEMUxFXQ4D HVyqJSrL0VhwC3fEsEiMJPmAX MhJ7QilZLlFJgoY309OJdoDoD 7 SEZtatAqC7BaCDByuUeoSyV3l 1Q9Zh3McMdtaZHiIC1eGbXqXD b2I0XlAfa5ASIrxFpfJZ4vjQA k DEfqNx3vlIrxcGryQT1bJRCiq hgoi905TdDnz7glXCVcwQAoQA xtBSG1J65lf9X7GOHiGEAzLTS 7 rMV8eM6baNhyorobxLFpoEkfr qDghIzvDEjnELrhS539IETnpP goLfPEScg0D7XfYym5PFRgjYs s RG9teAJsEMbnTc3bzCtptKbbF D6oTTBnwifqn911ZdKnq7zxAD KzxDVnNYlsSOC8W00mv8R7UYE w WYDjDNL2qIW9jE4zgXzvhoekw GVmdDsgdmVydGljYWwtYWxpZ2 39PDEbqPojWz2HEdf9Z7UqJni 0 VZZgiSwbRE4dnUGzZSwaBv9pj GjtzYirHY2dZWXgyzhgn382Ik Gvu6vyUNKqaKOwLUwlPLR6O12 s c1X2NURtURCdDQI3wRR7kO1jy GlnbjogbGVmdDsgdmVydGljYW qaBYrqA630VMZmwRcoVwTntNF y OjwvdGQ+OB00po66B6EiNhbnZ by4VBDrDQY5tPX8oS6cALUlSH gnf1M6uJM4V2NxxcKjug8bx8i s YXBzZTog (more content not included)... [facility] Multi-Wound Charton 02-27-20 23 Multi-Wound Chart [id number]#1.00CD:1 27 [facility] Nursing Note - Woundon 02-26 Nursing Note - Wound [id number]#1.00CD:1 27 [facility] Physician Orderon 02-26-2023 Physician Order [id number]#1.00CD:1 27 [facility] Procedure - Woundon 02-27-20 Procedure - Wound [id number]#1.00CD:1 27 [facility] Consent for Treatmenton 01-30 Consent for Treatment [id number]#1.00CD:12 7 [facility] Correspondence - Woundon Correspondence - Wound [id number]#1.00CD:1 27 [facility] Consent for Treatmenton 01-30 Consent for Treatment [id number]#1.00CD:12 7 [facility] Multi-Wound Charton 02-19-20 Multi-Wound Chart [id number]#1.00CD:1 27 [facility] Nursing Assessment - Woundon 02-18-2023 Nursing Assessment - Wound [id number]#1.00CD:1 27 [facility] Nursing Note - Woundon 02-18 Nursing Note - Wound [id number]#1.00CD:12 7 [facility] Physician Orderon 02-18-2023 Physician Order [id number]#1.00CD:12 7 [facility] Procedure - Woundon 02-19-20 Procedure - Wound [id number]#1.00CD:12 7 [facility] Progress Note - Woundon - Progress Note - Wound [id number]#1.00CD:12 7 [facility] Coding Summary.on 02-17-2023 Coding Summary. CD:098239PK:[id number] Gh0bW w+PGhlYWQ+SC8VOGPcR15naTD rsF1lO7VXABnCFldiYOHILMeY ZiYjvnXxDQ7xjDUnZWUj IC8+CX1kYFNoMnfccSTld7G2k JB7F70yhj4lISkqnDP3LDGoKg Jwvmcvl7ywfMg5SZapUbroWdU t KQGoiI89MUA4bT87Ww92hGQnu XSve7qldYd9AtUuAKDnUKY4uW flRIcwb0NiRQVmN66ajNJef0D 6 VTObqRejaHVnFdZocYP1xS2wP Fochvwra2qstanfDzu5tr44uA Cmg0C3uON4L3DczyA3EWXcgMS g CouyzSYHcB2njrsrk1diqojyY rWrLLAcJKb4MGw3HEFojXebJw GwLV97MCE4OZUvkeYuC2LoVEP s qPqrRpJ8l8B6Lt8VN0NOMcnvD 1VNTUFSWTwvdGQ+YX67si41Q5 XqEppiLzl9GLAxBOA3xYU4pH5 n CRIvGAhoh9W4sYA9L0YbisLmd q4hf8ivJMQeOOugF89auSGzu9 J6VVFkxDS2ZCKmcEhuSmCmiM6 3 Oyc+DOCfgMlqp2XcTbeep1ulf 1cssAt3BbekLXEfeyCqcLcdNO X0e9VjYp1lEBIlbVM5cYK9qL2 i WyQrAgH9DDghA614VnSpoNSmS biwS98nV5ZbuLI+TANjHbl7WU XbvTwrOE2pK7GuSGGwllulgPH m uYxiME4vAAUvbybnYSOonO5uP SMtJ5k5GqVmUvX7JMhzT1OqYC BrjgxsJh60vS0bFtJwZwL3ZTj u G7IgkyX3WSGtgPPoDEfjCCI9E 29sc8S5CWVbOOHyARN6wAG2eO 1hbGlnbjogbGVmdDsgdmVydGl j KFphJDdlS884PMUcyJsvUeJtF GluZyBEYXRlOiAgMDMvMjAvMj AyMzwvdGQ+CXGoLWL8gAktCTT n cNXySFfbDo3arNwvuXmhIA1cJ VQphrqmJMJqmT4rNLFqxCFiiE gxNG8zWBKaemusx208EwSxKHJ 0 JOOcfTClR4CwqP0zPcJqZGHzW HYkR6HbsUSuGFseW643JMuxVo K0AUQnxqDkR5HeMKMwlEjhVlV 0 q3Y8Yj4Dg8LpzpnqZ6UybJKzH pVeLdxwZGa7C1MlXfdwfSX+PC 40NGDsNQ35YLf5JDG4kSxdXEz i SUDuJ2XouU0gWwOfODUvYAYtG yc+PHRhYmxlIHdpZHRoPScxMD PhFoVxuKgkMG1iQj5rPTUgDPB v iXzitMIbTfXjv9yrAQVtUIhmC V0gvSboD0HssVY9CCDua1x8Ef 83I75aE8UijIS+YTGixOF6fVT 0 gZ0sAwRbXcX3TGogO950RqGuz WXsSnkyf8dyy3mwhZj9WvH3NR WgirFsgAavRFX4w2WiDq77U72 s IHdpZHRoPSIxNSUiIHZhbGlnb x2mdD3uHw1+CSBwfPW6zOL2hX 2qOlNdUhT1UAagK909FtWveVS v Yjbsd5srm8akwKf5McJfOOHpq qBdiYjlJAY9n4GeMo84E7KukB jeg8UsGmq5gs49tZZil7S4uRQ 9 O2UpCCSqvhhxkENwnDgxUY4vE BAccfpcTHUbvV2eCYLqA7k7Lt ZuShM3QHqnI1UhdoW2PSHqkQV g XNGbfYNFaZ7zdrzde9bofkedN qYaJEGjNUo0JZu2SBPbcOhcLa HpWKY5JtK4JOX7hBJtvL1ttLs n tsdqhC3gSkw+ICP4qDOviSZQU S8pDcnoeEE+CTEmPSG4aFwzGE ywFHQxoJ0cJABhL8w6AeJhNaT 1 VTreK1RugcT9UGWdxWBiKNZng DLPtE5gmthlp8pcchvoFaMeNB OxIPo7PXw1EQOvdHyfBxJiEAU 0 UzN5HRQ5wOGbjA2stIzkaiksq G9wOyc+CwxfoWalBCO5IMt3U1 LtTtu7RMZxmDfkHU7mbIFiDPb u Lc0nyDjfdHflSB6aUBRsrhaem 880NyXlb8nrFHSeeYVeHYjqYL R1M06fr1K9RCFoHUUgLWX1zYH 4 lQ7bxSluoqjaoTLyoPefncNrf ZcnLTzvIEzdA269DOKgxZtrIg ReWFy1H8YsLqd7IVUgpUhwYA8 n jTQxNEzsEf5fsWllkTfkTL7vY JSbnnrdn057YxScx2njFMBttG CtTZohNAL4V52ow5L5PQRoGFQ w TBY0mOZ6cZ3cpPhcalsfqIUgh FnspeRiwJnhUGsiLUxeL473AG ZssBlpXiInrPp7P9JcGst3BIL z xDdgOM2aaPEjCDjvAp7ydQbvc JdkZG8nGEJgtxnmg231IcYml3 phQYLwpDIhLQuhMDF5Z94xw1U 6 LNRbRJXqQIS4fXI5eK5xvQftq jogbGVmdDsgdmVydGljYWwtYW ibQ928KDHrvKjsGeQseMbhymF g XHruJLw9U4KqZwckzJC+PC90Y REzJK01ySDlgXWla6qopJa4Ct AuKAUoVBX6oSatYLtig5GuVEP t Y23utQAlw2F9ZQQpgFvdcDOkX bDtpAB9dA5pKGxticenh8kezt zbCtbfy3txyz27tN16T31wWEm p NCYmQZMgNWXlXOHbgKuovv7ia G9wIi8+SKRdnXF1zNV9yS2aAP XrMpI4LWqzL726UvUglKUoWtm j k9taj5irgPs8NfJ6BRYhbbIya MipEQV5d7IvZv75S69jNXapAR KgLFVjWOFoMDUjzBqlvx3lkG8 w Ii8+UFAxnHM5sPH0fS5dDaYaH mQ7XSnqL255GfRckHUbKynsD4 6gW4UdqKV+FKLzDab1ZAJdzWr s EJ2yyAPhBYruEk7pIZM6SkYgX mZtTXzhO3AdFEIxjysztonsoF Y1MCFfFVTaxS21Yh6dpWllIMJ w uBFRkM2mixnkv8uxyfkcKdOlU UVyZAh8AHc9SLKqoDccMvUvZT H6EyG0SMP1wJQwjK6tbIrkddk g uS2mG6UbKQUxwgfbPq15bJ4eZ rKlKyO4GHahJqx+VEFOTkVSLC ZLS51EPZGuOPtfgYT+PHRkIHN 0 vCwrFOgpBVYycE8tCFPuE7l7L jKkMfA7YHwuE4MnTNQdauuyZf 00zS5hOgGnMgV5TNlyS1BggzK 6 LIVowZPeCPfgWNH6M88pd8M7U RMbMZMqWTI0hYG2zV4ooFahsn ogbGVmdDsgdmVydGljYWwtYWx p P232YDOklHwqSaRcSuZ2DmG9P Be1F9MlNvb5POVkoInbJK7nsE SxNMyyTj4tiJayhZpnRF4kKXV p oesxITZcbP0kNEMixBExpXhbG Q1hLJWitckwo063YwGmBDL6SN RshJJfL1SzqF4nUtKpPCIjCFH w D0EwsLSxAHvoH879DSwtSoY9L AHgmoBqL2JlPUIgiYujKzJ5s7 J9Az72LMCTTZMcabgopYV+PHR k BRA5vMyxMEssOPYrkD7aXJMdP 5g6IuIrCoB2UJlaD2ZcXVQuym qdIt24qA2iHjOhAzV3YYffU7K v jeV6PAFkiJCfQOljVFC3Y46nc 6X8RSNjDWExSXQ8iCB9rL3gkR lnbjogbGVmdDsgdmVydGljYWw t RQqaH817ZJSrvGoiRs9auVK0K 2QlFpc1OPLzxJopWC2uqVJrNW ooJe4ypIbtnKktHO7uVOIphpc w DFFpaC5aAYZtpJKxkAymAL4mN TRoiavck762LuByLDI7UYHvuY LaN3XupD7gIxUfHSXzSLUqA7Q l aVPrMIheE723JPxtNiK9RPJwu pJmV7WyQRNatJjtSzM8h6A3Tf 2LsYUxTVKhFA74UI80BR24G2W y PjwvdGFibGU+PHRhYmxlIHdpZ AJgNBnpMHQbKkTcwVskJG2mGj 0dETWxSVNbjNlhyPVtFqJiv8d s BMKbWRizAD5nbJbgJ2RgsDP5J COhp7z7El60P50dH8AccIU+PG KloVX6vRV6cE7pVqHjYmO2ISe p H451RjMtzFUuWzjnj5cxd3xgf Jx5TvZbXHBgibQynOqhHBX3m6 ZcJq48L41tTFwyEPHoCZOwQOB i FNDroQbqab5gxN7mAu7+PGNvb UT5mCO1iH3mDtTdIoO8CPalW6 32XfIauVWgXcluN13cC1NfjZU + XQIpIep4EHOijHlcCI1boUOoS KesOs7mVML0EcNgDfGlFBwbU8 ZlSISigeynqroxgWD6IOSvXGX w dS61Hu0prVuuZy2rLZRtBTH4B EWwvADnK1FpvB4nKxHvQCWqBS VdC0KufYEsNUepH947CVmyBaP 7 WNUcimJzP3WvTKHnjItzWtP1w 5X3Po0BlKssuALwFS6yXzUuKU h2F6FhBin7RVGciFhtQF7coIR k SWvwPn8ouWsbsFpoYM8zNBRyj fizu492UkNls4riQLXtySWeFS dwKNE6D33ul2A2HZBmCBUbLMP 7 yAJ6gU4xxGnwldlnuWVtxXyeo mPciTrjVMgaNGusG705JEFxpX wkIuNEGht0M1NuDzh6GAVfzPe s JH7koUHlWEjdDb7ufQapeRcpV W9fMSZgfbksq693VqAkg9ysNS BqvBJfGDznUCN4F48dz8P1NBP w ZFNwIPX5vVJ6qQ6opSljrfuol GVmdDsgdmVydGljYWwtYWxpZ2 61BQCvqSfrFn8QZhs7P3UcBcw 0 UVPmbHhjRG1diUBmQIakAt9xz ZbiwEkkYO7yFFQipnnfe411Mr Dde6vpOYYusWRsXMijPXN2B70 s c1N7EAHcNYWzYXJ8dGC2uV2xp GlnbjogbGVmdDsgdmVydGljYW naNKfzS344EXBrnCmaFtXfvGV y OjwvdGQ+VP79wb36Z9CxVfpfT yh5WYGnFGA9mSN5vY5lQVYcWI vry4R5rHN0F0WpmtVpdg6ug7z s YXBz (more content not included)... [facility] Consent for Treatmenton 01-29 Consent for Treatment [id number]#1.00CD:12 7 [facility] Multi-Wound Charton 02-12-20 Multi-Wound Chart [id number]#1.00CD:1 27 [facility] Nursing Assessment - Woundon 02-11-2023 Nursing Assessment - Wound [id number]#1.00CD:1 27 [facility] Nursing Note - Woundon 02-11 Nursing Note - Wound [id number]#1.00CD:1 27 [facility] Physician Orderon 02-11-2023 Physician Order [id number]#1.00CD:1 27 [facility] Procedure - Woundon 02-12-20 Procedure - Wound [id number]#1.00CD:1 27 [facility] Progress Note - Woundon 01-29 Progress Note - Wound [id number]#1.00CD:1 27 [facility] Coding Summary.on 02-10-2023 Coding Summary. CD:[id number]:[id number] Gh0bW w+PGhlYWQ+TK7IYFFzX04omDB poU1mO9QDXVqFGljkDSHJMArB XnAkbnYpWA4weEJbMTKs IC8+OD1nPPYjBrbtkQAzu7U7o VJ2O05kpr0bVIldwKF7YVSxFz Isxqnhi2tueUv6HBbaMlckVpJ t HAFutY92UET9pC73Jg53aQAqo VKod2hffUb8OqWeRJWuIHQ2qI cnCCsdv4CpZNWdD21nlRQcc2B 6 KWMtgPoenLLhIbXzvUA5gN1yV Vjkuvmof6hfkdojOsx6hb88vE Pdj9U8aKC8T1UoocA2YFMgwGP g CwfbaFVCgA0uhmsxj1tdxatnN wFjXNHaUKh7TWx4XLMwlFlbMs RrRJ33HGK2UECmcdZnU2HzHXG s mBtmZyA1r8T1Dp7YC0OBIimdZ 1VNTUFSWTwvdGQ+RE84mg28E9 NdLbirHql0IFUjCRP9uVQ0eH1 n ORHkAZhyi2D2dFU3I2BuodYrf h6nw2rrWRAwTAezM01bgYOpb0 F8GAHwySW3WFXimZqdYpNgoT3 3 Oyc+UBLwtRukp7UqPjzct0bba 0kqgDd3IvroASLcfuDnpXnaJO B1f1WiBo2gELBdpOF2fPM3zK7 i HgYaKrT7PQykF868CuRksFTpM nusT16eT7KvaVF+IGHuUbw3WW LtiLnyNV2mK2EwMCXmtzrikNR m iYcdCZ3qVBNpckvkINSczV3vU SJsR7w2MnPbBsM8XVyrD5WhTN BlnabcRr25fI8hCmGwZpA4PAe u R6HedhX0MGOryVJbXWesLHK2E 63hb3E6DJOrWRWzGKP7mZY9gW 1hbGlnbjogbGVmdDsgdmVydGl j NTioHLuuJ795RRTrvHqiNoZiL GluZyBEYXRlOiAgMDMvMTMvMj AyMzwvdGQ+BVHtUVH4wEmkZHA n sOOqRWfvLq7owQhgoLhzHT0dA CBbbsonNQMjjU0dSZAtiBCiwK zvUN3zGZToozwnc869BrOiOAO 0 MHIgrQQnD6IqqO8hUzHbLRPbY UQuY4RzaUReXDpiW057ICmwZo K0CANvrhMuN5SfYFJivLshZxH 0 p7Z8Pr9Tz5JxhbxcS9YueJMxS aYuAhqsBLk0I1YiZfjlvPD+PC 47YGUiWD89JEq8WGL2iLwoNBx i GZGyW5PwkN8fDcWyEYVoHTNlH yc+PHRhYmxlIHdpZHRoPScxMD QvKyLarQmhSM1aUm1bICTvSQT v hEveoRBzMqKmk9hxNROlHPxaG U7ndCymJ1OjhMW6OTKed5h3He 13W13vM7GeoFE+KTKgoOB1eTA 0 sB9dWjBtEpD2CDvsI297JxZwq YQoOaode2kgd7fueQq9CxK7PT HcibPeeHbhTMO1q2HfDo31K20 s IHdpZHRoPSIxNSUiIHZhbGlnb b9saW7vNg9+JDIqzFV8dDG7sD 8hZtMpLrC1LFviZ491CwWfzEW v Okqoh1nlh1vfhZc4BiIqXHJph pTliBekOSL1e8KnIj97U3ZamT eel1NtMdl6je42uQNpe5C2gJG 9 J4WzNRViyyjqmVSinPxyXV0kC XQsfnjhRAZszM1mOKOmF5m4Hu KsHiV3QIyiJ4HwflL8YCDikCU g QOUqiUZRcC9zrurfi8kyolbtR uIdSMZnXQw8CCb4UFGfsCilNg FrRRO0OtA6WSF4bSDbuF3rzCx n jpzvzE7nFvb+DIF3vNNusNPLZ Q4bCagqvLF+YMOsWQA5iDofDB etGAOuqL6sHLZqT4g0PqAxRuE 1 NNwgU9RjlwY4XILfmZYeFGVml OEDtH2iksvxz2famggaAsVvUC ZdZPq7JVm7XOYavTxvDqUbGVY 0 NqQ3KDH2wFJxwM2svCmowqyow G9wOyc+EreouNeoAVT6JQt0A6 DyVqc4KTPisRleOJ0cxZRkBOi u Kz6uaOxzyBjqLY0aGGPkdnsfm 149AhIjd9wiZXEbaTNuJLtsNJ E8U29hb6X7CWTiRTPuDVW9tCF 4 eA8yzSuchpfzoGEdgIcxydXhu RlzGFrtXRsiW921UCYadMfmQj MrGDn2R5AcKks3JDVzeCukLC8 n kCObNXcuTd6qgAyyiEzySA0sZ EIwslrhk607IiUrn8mrYHPcjM DvUUkjGEA8R89zm3A8GJEnYQN w WGY1hEB1gT5izVsrbknlnSLmr HhmvsOqtBggXCsxLEquE537XT AowNmmMxRhdPg0L8IhXmr4CTC z iUgsFH3nnZBzLSauUy7okOmmw YljXJ3bOPAodgfra894EjYnt4 cwWJNqvPSvWAbtEKS2K87lm0C 6 IPQeMQRjNGL0fAV1kB2elXalj jogbGVmdDsgdmVydGljYWwtYW dxY384BUMmsZzyDqYmbFkmpkL g BYikMMy2O6HoQpkhhNO+PC90Y FWeEV30aBDebCIox9gvfLu4Pi IoIRRjTCR1bDtnCAyqg3XhPYR t B08erEZiq4G4MBSlsJjmvASnT bVuvUC9cU3iLGxnbnjfd6gmta ofFeqhp2rcga62cY73N27uMCm p HIXuHBDaJANzIGXgbMffkm2xf G9wIi8+YRUajOE9mDW9sN1nIH VgVhE6BYpcU972IgLsgWFmQvi j w7iij4ihdNx4LbQ1NBBcubWho TqzJJK5k4UwUw33T78mZMzkPC TaEFTtWMKkMMIxzYrttb4zjN4 w Ii8+RSZmaAN1gSK0fY5zVzOsS eF0WPfeS871FiDalDFqAtxsM5 5zN3UvzXB+JKMhQeh3PZJafPp s ZT2ywWFbBBqrFw4rLMV3JiQhT nFaCDtrK5HwRHMfggwvzblfbE Y8OYFxCPJvnT26Fu0gjLapNLS w rMOScA2iazkqr7dpfhunUfRzZ MJvSPa0DEi1KHKcwEzdTaVeEG U9HmK5MYL5kPDseJ6ssSxzome g sR5gJ2PhXANdppemHj85eQ0eV mOpYiR5MBpsNhf+VEFOTkVSLC LGJ43KIQNiNCzhsMN+PHRkIHN 0 eYexGZwwLMXvbG2uECAwO1c3C mLjJiC7PGrbM9KpZBTdwvfoTv 55wO7cAfDtFaB4YZfcY6PclxP 6 VPWtjMHlLXqxMWW2O29ke7Z6V HCyLLZiMRY9sJS9eE4tmYplmz ogbGVmdDsgdmVydGljYWwtYWx p W026HXKhfFdrDeSsIeI2CfV1A Dm1N7WpUks3GRGuuMjbRY6mbZ NfAIppEv8vtInjbLhmJV3yVZN p pefiNXGdoS7lSHSzjLOmaJqsF Z5aJXQuksbej500MfLcSAV1NG WfuFAjL2NidG2tReTxJUSyMBN w S9OqrFRqKPzdB227KGzrBdR1B NMstfUvG2QbZJMtdGogKgH0v7 C6Ap85RIZINIDwudyjxVX+PHR k IDE9fBmoOYfkTCQxkM7cPTJcQ 1v7OjVfOlU7YUdgX0MuMIFgbn kzAw40bD0hMjVnYrI2HDatX4L v lcB9YOJipBLcIXrlKIO1F69hv 1W2NAIxYBKqOWR7cUJ0aC1rbX lnbjogbGVmdDsgdmVydGljYWw t TEjpK249DAPieZltJj8bfKA0N 4OlSmc0JVXceNwoQV4wtHFtLM veBh2pmYgkvGyrFZ7hSUWqogg w PZHbrF9sWHAegHYtiKgqSX0gJ HOyeeuin478NdAaMRQ6VJInkH XkR9OzlF7xXbGdRBKpDIOgT5X l oUMwYVzyC344ZTqgNtN0BUKtt uBrJ2IoOZPotDcuIfK4e8N4Yr 2LlCAeLKDtGF33IY16CT19M1U y PjwvdGFibGU+PHRhYmxlIHdpZ FUlHGcyHRFbPlMknKxhFM0kSk 4vZEFpLZXiuPccbTMfBuLoi9y s FFIuZAamYM5yrFyeF9JsdGH1N XShi8e0Av55D74rL7JytYF+PG FmzJU8lZO0fY2aVbAkHmQ0SZo p N546FcPyxQMkJtovn2xsd0tkd Fa3IzVaKHWhylUkuSppHCA3y9 XjEl52U39lWHkaXOWaAXUwYWL i ZTAeaJmyak3plS3sIr2+PGNvb ZD4cYK0jF5vYsRaQjD2YUcqH6 33WgPoeCBbRyteI79qF6YrzNZ + WUObZnw2CZEirNroHO0jfBIwP VunIk7fQMS7ScNqKfGzLGggU1 ZzGXEoufdnuzjybVB3WXGcRCP w nP57Cf1bzXslIz3gYEJwYOA9T AIfxDQmU3QtiS9bGnQaEWPxDE EzW0LieHFqLSxuQ791QHdkLbX 7 KFBouoLmB0FxYHWxiMbuYxW3l 1Q6Ma6MgOiouKXmMT2zNkRhDV i8C6RqSiy8IPKziYfmBK1cxNZ k TCogVg2llQedpTwpGO0jALIhl usju708NqWsm5zuTEMpcIRvNS jvTCQ6G96ji6L9MHEuEQWoPPO 7 hYY1tT8lpHjzqmoglWVnkEtnm dIocLejINgwREbtE561HQBvtF rwDlWIZlg5U2WkExg8FFJesQj s XZ4zfDNfVTnzRl3vxHultOwaC F3aVZJttrlrs457AxPae7toZQ BygSBbOZdcASU1Y56el6R1ESN w YTZrBWV9xUH3kR6jgXfflirjb GVmdDsgdmVydGljYWwtYWxpZ2 34DZGzjCezHe4LRbw3C7RqWcv 0 VVKjiJsmVH4bxWVyQIqcVo7je NstgRdjSD0uEIGsigkwc041Dr Jzd1tqQDBasPJxSNkrPLN0S29 s c3P7KCEtGWReSKO5nXC9hC3px GlnbjogbGVmdDsgdmVydGljYW mfTKjbT365GHBslGeoXkBqaFI y OjwvdGQ+HM68lf62K6AuZihzV ox7ACKvOWH9sDR7tW8sQPPgYK qra8O0vCS5B5NqgjBsdw0la6i s YXBz (more content not included)... [facility] Procedure - Woundon 02-07-20 Procedure - Wound [id number]#2.00CD:1 27 [facility] Consent for Procedure/Surger yon 02-05-2023 Consent for Procedure/Surgery [id number]#1.00CD:12 7 [facility] Nursing Assessment - Woundon 02-05-2023 Nursing Assessment - Wound [id number]#1.00CD:12 7 [facility] Nursing Note - Woundon 02-05 Nursing Note - Wound [id number]#1.00CD:12 7 [facility] Progress Note - Woundon Progress Note - Wound [id number]#2.00CD:1 27 [facility] Coding Summary.on 02-04-2023 Coding Summary. CD:529134IN:[id number] Gh0bW w+PGhlYWQ+IN4IQGDrU68bpZY aeT2GN7jVCP9NEQBFJWUTGR6C RI0ijDX8EAzzM5JhuyTs IqhtrSGgXR67BFx1JBW6jSnjO OvfnG9rrHJsH4l1BvLnXO94dN 31NTraSJJsWnN6TtMcldpvvCL y I0yaFkBxeKOdTmx+PHRhYmxlI HdpZHRoPScxMDAlJyBzdHlsZT 4kEx2pWDWrVDErmMjuvYAzIvY j d8sbRNLzQMgbNB7rkNtoY8Eis GO8HWNlw1u2Ss44eJF+PHRkIH I1pJewSMqni749GtScy8ytGVN 3 zXTrIUooJLF8E52rw2H2HHWvH IDdYBG0vOF5rK7tkAyadcjnM1 BspPZkThR9IBK1fPJcnK8fdXn n zmnxpF3xNnd+S70LTR7ELVBSB D7LPcx3A4CjXlofkCS+PC90YW YdUT02zVYtiOIsg4nbxXv7ZaH w UXXwJLS9pPmoJPhus2LgNIUeI 89xeAYim5Q5FTCejDfomHKtMq OgsAC1dS9wOFnbvipvo8zdguh n Ivcna8hqel40pQ64K80bHOrmV XElPIG5HFDwXONnvWtqei1vjC 9wIi8+CNpsz7oqd0dqmJu1MiU w FKDlfgLrzWbtKGF2i6LhEx63H 6TwnLbht5BcEmh8kq94pZXxd8 A1bTF7JQdqNFJeaP6yCOmyIbR 6 WIKkIjAbdF96hPLlTOegNr9fl ZmjwCneDC7pABVjvvhaTQEtqW 7ySTZnwWJvuZbrMF9uWUYndxj m t803AsSiGOJ6AEYcxKWlR2Moo D2iElPdOASvHMCmP5KlzJNuWQ emZ374BOriYvC1UGHfvzWyS4N s HIAzbOanJzH9c3L9Jq8Tz6Qpb jcuACS1XMyzVURfRpC3StUtFd L5H6NsSwp1KVZhdPqaGI1mA5F h OKZihjzoijbnzDT8BJNcOGTvw F03fLIiLFlvBv3oy8L3c540WF JqLTTzlI73Sz9oeUytEETvtHN U dA9qqozly3vdzfggXdBoNVPoR Mm2STm1TLIxfGcoVxTuPDW3Nu R3BDU5bHRvqH6qnBgoxofzbL8 w Oyc+X23khE3cNVC0RZK9oamwV MKsghNdAA88HE27J2TcDzrbeE FibGU+SHTwiaDdtVowSL1gWoX j k9dvp2BvNIhmD3ErRMNmSBtyV ok5QGGkOHL5nXZ7fW9rKPLqLM jvw8J2mPC4R8VxhoUdqp8lu0l s GYSrTQncD65mxGLkj0E8IXOfh RL7XIDaxZaoNcLkgW43Yet+PG LmmOdix2QpWscjh5pzs7dleMm 9 SdIjEVVvjgFztLhvKPU9b7IcP n75A05uNKvoTYZfYQWnFFRlXO UcjKlbln4pmY1zYn1+PGNvbCB 3 sYW3vZ4iOZEyElL9ASlaO600W kZagFCdIhjri3sgq5ekoNk2Py NnAZPjyoGjsOzyYAP6z5VbRi5 8 W49jXUzyJKRwBSBxLETqWYUdm Enhag7vdG4jOy1+DL8ij2tful 49nN52fAN+VAWuQMW3qIncFEm w XXHxxS9sAGwgMcV5CQPaZpRbi M91oKSoOYuqIs9ylTsdvEijSZ 3oSPRfmxhay473RlIzk7nqNCU w aLGmBKhfISQ4O07vg3D9KVAeW IQnVER2kGL2kV6uhXgmadnolP ClfGmyasQtqJvsURqeGImuT65 6 IHRvcDsnPlBhdGllbnQgTmFtZ In6S1KjEcc5BQIpjLgiYY7pfZ OuPLssCq8ueBivvGnfNS1cJUQ p cgplt669QfHha9ouLVNhbYTcT SzhYXZ6D69tw7U2LGVwZKRzBL B8qJQ5eK0ukSexhvesgWJvoJq g phXrmOtoGVrrQLurE670WKAzs UjvYxTsrxZcXRXrrOX2JG41CW 33gJAqg9N4ePP9H6TkYERebjb t shhswQX6KVTxCYRteX21Bn1fx NjkMo7tJJAlKNL6FRIihZArF5 HbfY9rNdXnPQYrRYSnN8EoyED t NZiaL058JWsdYmS1VSHeaaUpU 7KzPQUazEylAvY5b2I4Ld7UC8 Y2SK82ON25wBSwf5U5vXB4A6R h KMIbyyklvdgwaJY9YRAeWGMzo T44Nq4kpEtbMq6gIJRrTWA8UO BxhGGnE8QvaP7xUaWuSWQqZLL w K2HafFFhPRjbD511VYkgWkL0B MFujjUqT5XtGHYtpPokZcL5p7 E6Yt5IALw3JP59PF78dLVik4M 5 zSL6I5EjFUPjujacacvdkIE9M CWpYSVdhU72Ud5apHoiYu6bVG AbIGK6GZJtvMRaB7VvoJ0zMyM j NDViTHUwA1OapJYlWNcyJ734O EbaDwW0MHJvtaZfS2SnQUFdcH dbHcB9j9N8Nu8TRIBaHL49KJR 5 dHO6MD48RP57N4GiIpgxbHIaq +PHRhYmxlIHdpZHRoPScxMD ElFxRwxEguUF6aZo3sBHTjTAS v dVpjrUZuQhXps7tgEXXpYLfyQ O4pxSvcN0YkaRQ5UCRiy4c3Uo 91D40rN5ZmeRN+DZDnxOL7oXI 0 uX1xEdSwPrU3TWwjF960WeEjs GErVynml8wid5kneCx4WxV0HG DuxxTjfCbyCSO9x5PzHi40J70 s IHdpZHRoPSIxNSUiIHZhbGlnb h6vuK7bLq4+TCHqjJB6rKD0aY 5gBcRnKfB3PHjxM061ZnIyeBK v Mbnee1wvx6vnyOv5AbXgHIHid fKwaAypXLM9g2NaVj41O4GwjB uqp2XlTfj9fw01jEQtz9D4aLK 9 A4UgBCJgozugjPBivNusWZ4pO BHbielvSGBzpU6tTBAeU3c4Fi PtCfN5IVviW0AbhnO8DRYypUW g NJzsADI7E32ks8Z5SNYxKMRiO FH9xXZ2vE6dlHopphgvcTSdmM cbzySwoSobCIunWGlsD183JZQ v lRgkZZIehC4mLYSfuNKnnWokP T3qOSZdouegUbMRAx0LKrfjZW 8CXCdSQUv4U1UxYpm7KUCscRn s KZ1xnCDuMDfxDz2gnAcclNyxW W4eDIOvrughMLMgqT8mYWXldO KooEdnVX2rVETgxasaw227SkL x ZPH0ATIdwLTfY0PjuJ0oPmQaE DDnAAZmK5PkcPVdGEkkV924EW lxFiV3WVYpxrYyF4BqJEQpcSx u WdO5z5W1Au3sKp7uJU1dUHH9K A66JM56jAFyi6H4kTK4H4OsSY NeyikcqmhavZL6GAVpFXLgwF1 7 hQIvDYtuGa3mp9I5z863DDLlN DPzmI60Mx6cxJwtPSWyfRFIqL 6slpohj3mgchasXvNlWHSyNZj 0 HMi5LLVyzCkzLhAkMAG6AmZ6H MB2xZChoB7czIwyohwhpN7dQo c+PdFjDUOezvM9Q3HgZan3XIS z pMtkVL5xfMMeYZedIi8xjKjex BioFI4aBWErmmsvBOWopO0dRF IxbUOmaYfdHB2hEBBoerzit02 0 UdOdNEP7SQKgaJHpA7UtyA5jK gXqYYYjNGBaS1ManTTkKPuiI0 76YIpmYvO5TSIpxeOiV6WbQNA s sWsxZiB2x3J3Kc9AXOlyDQ16G Y71lBIhd8Y0nDR3G6GpXPTxmv qripcxoQN5ZHKjAEZrxM05hAE k ZLwbPn8gd8N4i936CZHtVDPtx E90Po2ioYwzOWZbsOFSpQ7dlz sin8qscpmhBgRxSENnPJv8GJi 0 GNYeqYjjEfYwXRT2KfP6YSA7k XEthY8ujZvwsymmlZ2fVaq+T3 T8aZD5fJFxzTytqMI+QZ47lt2 8 W4WwHjxqLag5TCYnANH7rVY8i U9iQLUbQZzal3G4hTH8T3Nvil Wlwt5uv1crGHEkDCfdM42esDC w a6P2EDYpwQF1ZDSaxHorFuKut G93Oyc+GWIiyDfze4TxTrshl0 mvp7licXk6WqZnQDApcuGvtXv u FBC0k8ZpPd68H26jOTroEGSpP CXrIHPxGNYtmXuzlb2brA7dTn 8+LJIejGH8zHQ2yF1tCpSuGjH 2 NAbzU202FmOstFMyOrcio9tlo 4tmeLy5DfLdISCpznCdtKbeIQ W4i0QjRj04Z4SpuJyrl1UeDkj 0 es54zCLrp3Z7wET7Y6LbAQGqf mqdvWDuvWpmWO4wGBJvprbzZM RtzR7lXIMaP2y1PbOhUqG9YPb u A5WysyK4QBHhbXSjWXBcyTUZa Y2ksgojw0dagqtaAgLbHZUdFO u3RQr2UBSifHqkViAoOAB0NbT 2 GIM4lQFeoM3fgSupslrrlQ1sW yc+MNk0j7edmXPpXM8fpXJ7AZ 54WF56tHRfh1P1nWS2N3XtGUT p zjmwuosvkUY3SQJfINNvhX92G i0vbFnmUe3xUGGmERC6NAFrhZ KgH7UwyK9bJzPiZFJiXZPdJ3C l sEVyMEuhS573QBnvBaC6NWKzt jYpF1DiBXPadHihJkY2t5F9Mb 8MTK71AG48YN65rHYgh5O7gCE 9 G2GvRHFqlgiajrquzPY5MZQnU CBbnM14So7xuOviBt1cGLEoDW N9EBOomEEbY1HvgM5bKwCoXUN w VRXuT5PjbAIkWYmhH462GWydN xV0RPJmamYbI1NgEXSpmTfpHn S8c5L0Mw5EAp56MJ61ZT55oMO g t6H3rZX1B9SuKXQmqdtninuqw XC7XGBwGBLelC48Ct5ibIuvEy 7tSLEpNGW1FZLjtPVcF5FujQ7 y AlOiCVHcISTdP9FkoVZsNQkxW 228ONtyTmZ1SGOvgpWfR2PwWE PmnTlzBeG9a1E3St2XLDtiwhe 8 V6AqWlvthEM+TP02XBYsCM66y OHkaHAut9diuOd1DxIlGQRwIS G6bOevGKgsk2ZsUUMkV30jcNY w c2U6 (more content not included)... Normal [facility] Coding Summary. CD:[id number]:[id number] Gh0bW w+PGhlYWQ+UE4IQFVfH00ucNF obX0EQ1bKDE6OHKMFLJGRXE4O OK8hrCN9YQgaU2FeyqKy CqnwlRWhZG12JJg6URW1bBumX QbrdV4auPNvW8x7OxElCB14qZ 67UDsbJTMoUkR6IbBvrluyrGH y T1qyYkRmzQJlWzp+PHRhYmxlI HdpZHRoPScxMDAlJyBzdHlsZT 8xLu4rJXJjAOAsaKciwEKbSwI j p3rbQUBgSTjrOO3bqQgpA2Dcm ZA1CIGkr2f0Ah80jEE+PHRkIH L2lCkxQUwto179PdLyr2poUSC 3 cYMoIRpdDQO6X75gy2C4ECBiX ELgCUB2eMA5eA9qkMoboulcF7 JbwAOsBiK1AWI2jCFinL2fsSn n wjlhsA9jRfy+F08SOW7OBRZZR Z1OSft6R1PyGvibvNB+PC90YW JmVP06tDJeoHZdd2gtfYa3AaA w NFQxVQT6vZysIValb3ZvXDFhB 94ycVSvr5T9PWDxdRjydHMoNp DeiSX3dG8tXTxezsxtk1nzzba n Ojjtq5jbfz23pE79N14kGVjxM EUeUZW8MPQaONTnsUgseg4nuY 9wIi8+PIpeq9kyi3prtJr6WuH w AFWhneHbdCtoGEP3g0PbQj15E 5XtdRltv8SmEgo8vm26kHYmo7 G9cZI2AVnaGQVlgG4jEGcpXrA 6 BDUlQvEibA88wXWgSFkzCt8pq ZeuiTosDC8bMVTmwtpoTXWbqO 6mRHTbtOWfsHeeFN8wGNZcppp m h305WyJbZKV8ZRQjqJEpS0Aip Y7iRwSmEYZuHRAlX5VxqZNeGB xvD691ARqhYbL7DEEcmgGvF5Z s YFGnoEqeRcL8c8Y9Ap9Ke0Bnm oloMFE2UJctLBCsKsO1ApMqNl U1A7PeLcg3NDOtjDaqKO2mX7N h JDXccxbatatifWQ0UGBtONZid O09nVAeQDfaIf5wq9P8k205CM ToZZQinP04Mn5oaCvrCDEfjVI U iQ7enpeof8ofmapjNwToLHVlM Qs2JQo8SMLixFpaVvHnXDE9Ou L8YSS0wFFddA1uxDljbrsgzI6 w Oyc+F26rwZ1gAYG9SSU3cbafI APkwrKuNT12TA19S4PsNfruyZ FibGU+TXYzlyHorMmkAJ4eJpP j m2uhw3MxEXqwO5KsKDHeEPcqC sj3ZTNdQZR3gAF9jA0iUHDvCT eua8T2qCB7E6DaysGovm2gl2p s YVTbJNcyQ55vaMKfw6Z6BRYos LC6QUDuaInnNbMrkV91Hmj+PG MusBdtc3KdWavxp0rjy2ndtRb 9 BlJfWIOaesBzsGtqCSW3r2QzB p37U72oZKmoRQIfXQRcAGLyMR KviVhgzc1lxT2yPl9+PGNvbCB 3 lBK8kA2oVZDkGjZ4EHriG932R qEgoBSbRrbhk8lgx1iddDy6Qu MqSGIfshPrkQslPPH5f5MgCp5 8 Z78gGDbqLOBvWVHdZNIaYVVbd Jhekm5ygX5oNx0+MV1sx4txgt 48lC05eWC+VGWaYGQ1sHtjMBr w LNIojK0cWXjpYnF8TYHgXgOae R92gIUtUMboOe8lgYsdjOilMP 9sLSBvrcepb448CfLdq6dcCQK w oPPqLDueTCO5T72zn0K0NDZrD GJoTHO0zHQ8aR6qfDfidyujtM FvsUgvkeKzuQeeVVblIKtmO78 6 IHRvcDsnPlBhdGllbnQgTmFtZ Hf7L3GbZle5MLSabYacWH7drI OnGUmpDg5ujVbwtXhpRB6nFRB p lgyrq979UjHee1tgENWccIKoV QacKHL1U53dg0Y9ZDUiMFPuKR K4rXI6fT8pnXsrvhsygRVomMm g mnZnyCzfGKsmAOtbG800RCZvm EiaYoLydlZpAFGyrBR5NM81TU 04hBPlt2P8lAU7S8RnILUdhpf t vkrzyHK7SKCrKACwqN09Lc6rh VtcYy7eFUBfUHZ2EVWjgRGrY7 ByoW3iErXcSWRkYWPaQ8WcnRL t LInzV862YDepUfJ1KOMigsFbI 2RlKFSydAadJxE9v6S5Tx7BV3 C9HK49YV57yKMun2Y5bNU4G2Z h HJRullednediaZK1QHOrCEEta Y08Kx6wgZanAa5cHYUrGKT2WE VgyHUsS0QwhG9pBfYnPWVwWTY w S5XesWLkVVutX455CHizAoV4C ELjlmCyR0VsSTGdbGcdLcW5b5 H7Om4GSBp7WS97YN10qRDwc2V 5 eKY9I5TwFMEragzhvrqjjHJ0Y KLqXKCvuZ54Nr8aqCziWa7mAL CwQVC8QRDxgVGqG1PviW7cOeZ j ZLJcVNLuK1AwrLBdYVslS583P DppJeU3JCGgktZpJ1VvWLHfpG uxFpI8o7P6Qc1AMBMpID67UPG 5 oWL0FU32YB07X3FzNfuglGByp +PHRhYmxlIHdpZHRoPScxMD IyBqBhwRkfZB6iVf4jDEVkCGN v kVdjfZMpIzSrx6ddIOIsSKhrB L1nmQacI5WafSE2IBLdh6g0Vx 68A91vM9CjjVZ+OLNthZQ1yZI 0 lM4rVgBcKmF8NHoqW657DvOxn FCsBedmj7ssl3bwnKl7KmI7RF EvdkOxkKvrUIF6h7DcWv68D64 s IHdpZHRoPSIxNSUiIHZhbGlnb u9gfW6kNq6+HVKgpGZ7wJH1nE 1fCeDbPyJ7UFvnK254LgJeeIR v Xawzl5kpw3pauAu9MzAxDRVua gDjsOtaYDL9n7FaYi62O7BzxW sex1OdNdt5br43gYCql0K3iUP 9 U5AgETScumklcDUcoOlnUO6bG VUraoiqTQUtnR4kMBJtJ4g2Po ZeIiM1OHgbX8LgfbV7IXEopIO g ZZyfVVL7C62nz9C4ZWOcBNYsB FB9wDS3rK8vrAvlttpaePPuiS knnnCqjPnoJEqoCCaqN532MWD v nVzgXJZnbL8nGTKueROzeGxzQ M0fQCNcjbrjMySIJn1YPjpdJK 9WZZvZJMo7F9NlPdi7XEQrkPf s XF5voQQnSBrqJn3qtTtvzVzcO U7rQWLizqkiWDTznS3rBAMtaZ RwsNvdVN7lDKOzrdvrg796TxD x AUM0DCKzlFZaO7OfjJ1wYdAkG BZfLLLgR8GhpUIpETcfO349VH pzHyX5CORvpsKhQ9NtXVXwtFo u VmC0u6S6Ag6tMe5pLP7hRVB3A Y26JG80uNQxv1B5hNF4I0ZgME QlxpyviroseLO2GWWyQTNbvY5 7 aOMcLHfmSw2qz8A4y033ISKyD JEbiI47Kb3hhJegBOHuxSVFkA 4ezeqeq9czupafCqGaFVKsAAb 0 WUj7BYPbwDbcIfKqPAW6AwM2R GB3sDCdzN7mzExehhhghL6nEa c+FtSbCREyblD1E3QsCjf6MZI z xZaaIV7jnDIrSUqjFs2cyEomy KwlGQ6wRRSpoxpzNKAqiO0iLV XlwKVuqXxfDW5hXZYifhfkv92 0 JvLdNGM3AKPfpUWwE4EwqM8oH iIdRGLnKSVsZ0XgkLJwIZlxY0 53YJngEfM8YHMtlzOfM5JzWRN s hAsmFeI4q4I3Ok4NRWhlUO31S C79jPGho8P2pGQ9U9BgCECjso ywksbgpDV4FCQrRYEqsT73eOB k VEqwEv1np2U7w485TYDpNKNxr B64Cf4zcUdyKLOsqXSRcV4tnu puj4bgtbpxWbNgGPRmXYt9WWt 0 RUDgtLpgSmGvPIU7JhL6YED1z QTvvB5qrDqrccbsdK2cCit+T3 S6pAE9rPMslKosxOM+KP10nw0 8 E6DtDwbxJal0HDFiWZW9jHV0g T9aIXHlBFrqo7O3dZW7D1Hagw Umnb3bl5zpISMpQPkcU10qbQY w l2W9XTXztYF5XESgmDfrYqHgb G93Oyc+JFImkLhqt8YlVfduo4 ikr3lizVw4LlLuRCXoqbSvpBl u QKL4v0VoNq27R55jARoiSAToH AMzYCPzAVHfvYiezx0ryQ1fCw 8+XEGozPF0bOW8dZ3fBpZnYgU 2 PJuqQ228PcJzrYWrBlfxo5zaf 3tstCu3PgTkCLOacdQadImwIH J0r8VpAn70U3OkbTgij6HuXak 0 yz49sFFyu8J4hIG4B6FyVJCjk kzmlDNjuBqvZS9nRNEbagjhFW TpaS2zNRLbH0h8VmZlOdD2SOa u Z0KuvmR4JRMysUWfMNDwzBWAz U2wqqqnn9ezbxymGbVfRTGcQK y9OEn8UNWtoQuqLfCmJJZ6AbW 2 CZE7xXPsxD9nyGfqkwwrtK6jT yc+JUy1g5qhqVTtAB7olMX7DV 42KU03lGKjt0P2qNG4A0JfCLY p brfisbnmlLD7YNMsDZEhgA43W f7rwUbxQk5wJMScCPF4XAZazZ JhC2LbpN2wCpSgMQIbWVLgB1Y l xBDlZZetL147JAxsRvH1VYBki jSmE1TvVVLjaZqgEzL8h8O6Ua 2MAV09LM11CQ02zBTwg3D9uSR 9 D2IvSBTebxhrflbffXM0NETlP KBkhU58Ay5cjWbsVq8pKPThUU H6ZZVnoMOeV0JddB3zCuSgUNS w IBXnY3SsxVHcMUbpW820MTpjW yG0QNPotaFzS9ZxIPUffLiaEx D8q9Z3Xy4BOv81XW28PK78bIQ g k4L5jRB6T2GhRTApcvtsvlggq EV1QOJoTCOgzX11Po4evQggJa 3dPAJeNBA4VZAlvLCfT3BquP6 y ZlOfUSMqZAPoR5CmtOSpFDcgB 817TSqdCuO9OTJjgkDmX8PiJX TskTjtRdH5r2M1Bp9XUSljkag 8 Z7QdKpyipDT+SH35OPIuAN03g MPeeJMgj5prdKe9TjFdWWXnAA N4tWrsBKmwn5FdNSSrG07cyBF w c2U6 (more content not included)... Normal [facility] Consent for Treatmenton Consent for Treatment [id number]#1.00CD:12 7 [facility] Physician Orderon 02-04-2023 Physician Order [id number]#1.00CD:1 27 Normal [facility] BMPon 01-28-2023 Anion gap [Moles/Vol] 12 mmol/L Normal 6-16 [facility] Comment on above: Performed By: #### 1 [id number], [id number], 6598784 ####[facility] [address] [place] [address] Calcium [Mass/Vol] 9.2 mg/dL Normal 8.9-11.1 [facility] Comment on above: Performed By: #### 1 [id number], 2408066, 3896118 ####[facility] [address] [place] [address] Chloride [Moles/Vol] 100 mmol/L Low 101-111 [facility] Comment on above: Performed By: #### 1 [id number], 2019126, [id number] ####[facility] [address] [place] [address] CO2 [Moles/Vol] 30 mmol/L Normal 21-31 [facility] Comment on above: Performed By: #### 1 [id number], 0512246, 7584432 ####[facility] [address] [place] [address] Creatinine [Mass/Vol] 0.8 mg/dL Normal 0.5-1.3 [facility] Comment on above: Performed By: #### 1 4137665, 1308503, 3833949 ####[facility] [address] [place] [address] Glucose [Mass/Vol] 96 mg/dL Normal 55-199 [facility] Comment on above: Result Comment: If t his glucose result represents a fasting glucose, interpretation should refer to the following reference range: 55-99 mg/dL Performed By: #### 1 0395975, 2263296, 4097044 ####[facility] [address] [place] [address] Potassium [Moles/Vol] 3.6 mmol/L Normal 3.5-5.3 [facility] Comment on above: Performed By: #### 1 2013156, 2007432, 0715839 ####[facility] [address] [place] [address] Sodium [Moles/Vol] 138 mmol/L Normal 135-145 [facility] Comment on above: Performed By: #### 1 1777939, 5149205, 0016188 ####[facility] [address] [place] [address] Urea nitrogen [Mass/Vol] 21 mg/dL Normal 5-21 [facility] Comment on above: Performed By: #### 1 6685058, 8535613, 2545592 ####[facility] [address] [place] [address] Urea nitrogen/Creatinine [Mass ratio] 26 No Units High 10-20 [facility] Comment on above: Performed By: #### 1 [id number], 5391751, 5822148 ####[facility] [address] [place] [address] CBC w/Indiceson 01-28-2023 Erythrocyte distribution width (RBC) [Ratio] 14.7 % High 10.9-14.2 [facility] Comment on above: Performed By: #### 1 1761306, 8320569, 4139601 ####[facility] [address] [place] [address] Hematocrit (Bld) [Volume fraction] 36.3 % Low 37.7-49.0 [facility] Comment on above: Performed By: #### 1 3049061, 7128093, 3841567 ####[address] [address] Hemoglobin (Bld) [Mass/Vol] 12.0 g/dL Low 13.5-17.5 [facility] Comment on above: Performed By: #### 1 2855205, 3152898, 4055050 ####[address] [address] MCH (RBC) [Entitic mass] 28.6 pg Normal 27.0-34.0 [facility] Comment on above: Performed By: #### 1 4938124, 1090432, 6445453 ####[address] [address] MCHC (RBC) [Mass/Vol] 33.1 g/dL Normal 31.4-36.0 [facility] Comment on above: Performed By: #### 1 0642039, 6232711, 2700357 ####[address] [address] MCV (RBC) [Entitic vol] 86.3 fL Normal 80.0-100.0 [facility] Comment on above: Performed By: #### 1 6359338, 1638136, 0234138 ####[address] [address] Platelet mean volume (Bld) [Entitic vol] 9.1 fL Normal 6.4-10.8 [facility] Comment on above: Performed By: #### 1 9179932, 7793880, 9606513 ####[address] [address] Platelets (Bld) [#/Vol] 272.0 E9/L Normal 150.0-500.0 [facility] Comment on above: Performed By: #### 1 0682466, 5385405, 7386339 ####[address] [place] [address] RBC (Bld) [#/Vol] 4.2 E12/L Low 4.3-5.9 [facility] Comment on above: Performed By: #### 1 4398932, 9637662, 3810055 ####[facility] [address] [place] [address] WBC corrected for nucl RBC Auto (Bld) [#/Vol] 7.6 E9/L Normal 4.0-11.0 [facility] Comment on above: Performed By: #### 1 2401999, 8163261, 4402539 ####[facility] [address] [place] [address] Consent for Treatmenton 01-02 Consent for Treatment [id number]#1.00CD:12 [facility] Consent for Treatment [id number]#1.00CD:12 7 [facility] Multi-Wound Charton 01-28-20 Multi-Wound Chart [id number]#1.00CD:1 27 [facility] Nursing Assessment - Woundon 01-28-2023 Nursing Assessment - Wound [id number]#1.00CD:1 27 [facility] Nursing Note - Woundon 01-28 Nursing Note - Wound [id number]#1.00CD:1 27 [facility] Physician Orderon 01-28-2023 Physician Order [id number]#1.00CD:1 27 [facility] Procedure - Woundon 01-28-20 Procedure - Wound [id number]#1.00CD:1 27 [facility] Progress Note - Woundon 01-02 Progress Note - Wound [id number]#2.00CD:1 27 Normal [facility] eGFRon 01-28-2023 GFR/1.73 sq M.predicted among blacks MDRD (S/P/Bld) [Vol rate/Area] mL/min/{1.73_m2} Normal >=59 [facility] Comment on above: Order Comment: Order added by Discern Expert. Result Comment: eGFR is race adjusted. AA=. Performed By: #### 1 [id number], 9039244, 0117612 ####[facility] [address] [place] [address] GFR/1.73 sq M.predicted among non-blacks MDRD (S/P/Bld) [Vol rate/Area] mL/min/{1.73_m2} Normal >=59 [facility] Comment on above: Order Comment: Order added by Discern Expert. Result Comment: Service Specialist mercy kidney disease could be indicated at eGFR's of less than 60 mL/min/1.73m2. Kidney failure is indicated at less than 15 mL/min/1.73m2. Performed By: #### 1 [id number], 2004854, 3321081 ####[facility] [address] [place] [address] Coding Summary.on 01-22-2023 Coding Summary. CD:[id number] Gh0bW w+PGhlYWQ+NR3EHNTdZ80yeBZ omN3KA1oUEO0AYEHTUWZUAY0N QK6jjON7SCapR5FkzjBu GpridAVyQF15HCo7YRQ4zNqwD HncxK0zoVTvK5l0FfWxFI54lY 14LSmyNOSsCjC0YrFebqlfqPA y E2npNuWekUAhBwt+PHRhYmxlI HdpZHRoPScxMDAlJyBzdHlsZT 4dXf4yTSSyLDFozAfhnPDdApL j p1iwAOCcUVgyXG0zmQykK3Mgs OT2MDCfl2a4Eh18sZK+PHRkIH K3yUqqKQpjl110RkXar4jpVKV 3 eOAuINjfKHG7K24ub5X8ABVpD GHiDPH2eVD8aG9oxIqdtyncS7 ZybCEbQfB5AFA8rUTuoD6stLt n bgjecF7lUjg+R63RWZ1HPAMJM N8TXyw4D8YvVehtqHZ+PC90YW MbLO35vEWdpBKzk1drcJa6VnK w VITeWSU5bGcsERbbj9OkDRRuS 03wpRAdh3W0VOCirBnnoPVtMt CjwFI7qS2jIQoifqbwb6qfapp n Ppqjx4hjnf40oW55Y25oKBwzQ CGiYBW1QJUvFGQpkGejga5btQ 9wIi8+BDbbj7xsm9yxcHw6SuS w ISDarfGfyWhkCEU4u3ZgKh26D 2DutAdop5OoKmr7gm12pXOyi0 Y6uBM4ZAijXLAmlH9qKHcrUjS 6 YPMeTrDcmE74bPIsIXchNw9im NfppRzvMW5cXMGxewjkZATggL 6uSZXolARqpWnrUC8pBGFlztt m m441CrWvAGH8HRNucMKsY5Bbo I7zBxUoHDTqJYZzN2DttETqOP znQ211YOfiRuD7HLWwxlPoG5R s GSBytJlzKkL4w7W0Ls8Wx3Yub rjrWRN0UWmzQQTaEfSsHuDxPi R9B4ZiSjn6KCVhdPiqXP8oK7B h MLFpyjbthptlrUD4TXBoWXVfy F71sTFcHOcyWn9ut6I7r094ER TfKOTkjO78Mj4oiYpsGKOoqRL U aG4icneeo9ocyrxwIyYbIIRtE Js0HPp2HFNtfAffDeNvAKK3Ri J7RZK0vOFkqS3xtQpesysfkR7 w Oyc+X59qlU8eVWU1DTK7hbziD WZqycQkDE47YE19S8VjWzjxeE FibGU+DKPezaFwqIkrYE4nLaH j k8sji0MmLKbwX7JaSIRdAWpnX ap1NHVbCUL6nQQ5pH4bCVPoLT bbc5C3eCE3Q3PuczRhoq8zp0r s XIAiSTizP43zoVHxp0G9JJGmv WX0MGMsbCgkMoDizJ29Qje+PG MttOidz7ImQcqut0wbi7umhZr 9 RvNpOECooiCwoSvhSIF5d4LpH c33J07iCBuuENBkHMDkLWYzYK JkeDcefe8lrU3eCa5+PGNvbCB 3 qDL1xG4mIOHcJlH5AOhhM658Y fKweCLyNghtm5qun0pudTy8Zk NvNMRkrsWafUvgHRL4f5KlNl6 8 E35iWEcuJQDeVSBkDMZnEDKsy Hivim5saY7mHf8+QV5op6wysn 09xE70bWW+GWUrOEW8uSicEMr w DVPthI5xRZjuRgX1MYZqBcMne Z92iDAjSFewZu1zvYthpLcpHI 6dWDRfjprcr589LoKdh3ntKYF w oVMaSPufOLU4L92ut1U9TKFaH DQdYXH7wSW8lM9rnSlzwrbrzY EwsEmhsvQrjNraAFzoNXkzP76 6 IHRvcDsnPlBhdGllbnQgTmFtZ Mg5P5JkCeb5XPHwuVllAL4bvE PcELotHd1yyPzbfFwiRB2gAYE p fjrlg546ZrUvd3flTIMorNDpS JwuVQE9N50id0R2UWKkTJXvFC M0fJT6oS7kuLqbspwifZTfxNt g qoNouTphLAenNHgpI809CJSjh ZbgIeExjtRgCBBvxPN5UM54PE 24vQPbs1C3yBB2G7QnTVBtaul t rjezwIR1SHMxJQMdqE56Hs8dx IrxXm5fGGLiTZI7RWAxdORvU2 KqtI0fTtWkTALvIIKiQ5ZqaAD t TRcdA527ZKokUfN7UXIsvfMrV 6DjINEngSgtWvQ6b6O3Xu8IW3 C3ZY89SE82zVHos5X8pFF8K5U h DQJsnuddhyqtrOI8TRGuMQSqw N36Yg0mwPsdJe3fRKHmBLF5HS XhlAXoW4DuoK6tRwZwHGOdVIZ w L3VijYJrCNhhR582VBrkNsK0Z TBcwoEnY8WdXDMkeCygUbK3s7 W6Yr6AOEq7NU28CR63dBLqx8J 5 aDD0D4QnECXwvovomndmfPH8I UBfQUDemI85Js3emMuiUh7zYL IxMRW6HQQugDNdJ0OkhG4wEkM j KKWgUPSaP3WqjXWnMOfxF513R SxdQwS7MHVapbEsF6DrLNKwsR ryAkV3w5Z8Wv3NVYXnKZ75NJW 5 aDV3QP27UQ77A6OqKincaTPkm +PHRhYmxlIHdpZHRoPScxMD RfLgAsqXseCC4zCa1pFUYwCBJ v cDjuqTVoMzTdw8snECLnSLzjK O8fyOjnQ5MhwEL8PPPdm8h2Aj 07I71bO2ErlQC+UGJwbCU6hLE 0 sW5mDpVlQcZ4RUwkC844QaZlm UXxQgrlm4snd4nygOo4EfB8BU HjghSrsCopFFM5v7FpIi48F20 s IHdpZHRoPSIxNSUiIHZhbGlnb r1zoL8iXj8+WBXxuYN8rLJ6qC 6bQcMfSmI9QAmvH007IjAawJT v Armsz8pfh8ragGu8ZpBtGTTxb wWygKwdEZL2e7ZdIp51W0StzJ yrn0BcGgq3qz39zSCim2Q9rFC 9 V3UzMJUitrxsxNNwsUbtOH6gO JNvdstyDYSawQ8dFCUdY0f4Nz KuItJ4WCkeQ6GzduG6EDPyxVB g UWcnXLF5H16um3D5BUFgYYFpK RY0hGA0mY9vxCnychacnVRygQ ozaoZycEhfUVaaDUceM437NAE v bVtnAJXreU5oNZLkwTNdsLrlY L8vOHQsuxnoGhFOQp1FYmywXT 0IBRtCJEo3Z6QkBlw6PMHeyGw s FY5kiDOhDAutTt0jxSvzjUqsF G2lPFQtjgyvXGJjfM7qEGFffJ DgvQtqSR0sTIKbmkdis107NiU x YTO4DVOxiVFiA2EqbM7iCbQdF WFhXJAqM8ArlENeOMwqD240MR lmVqX4ZWQoihMqV4YdELCzjEg u OuP5h8Y1Vj3wDv0cWC2eBQL5K B66EF20eBBxf7S1wTJ0L6QfBL CaafspmbwqaTT2XMFlMNCxgL3 7 wJGvYXmnZa7ud6R5o213OQRyU PQoeV54Ms3evHgcLBKxuHCZiS 7zhpteb3lhaatgRnNqXGAkFRl 0 KTk9JABxuQbbLkPuZYJ8KuI6P CE4wRKwuR5lyEzvphjjlW1sJg c+GgHaNDBwizK7G8IySkm2OYK z qDnsUE1rlBWfTPhwMu8ebKisy OghYH6bIHGepqthHQXgnK9uXX AebFOqmKunFD8oPNStrlsyk53 0 FkYbKVR2EYZqbQSrU3RcqL5kI dHdCTVtVNWdI8XdzGQwCUneZ6 82MErsIjS8NIEgjnXzF8RsKYT s zXpaSbQ7v0A3Yb8DOFpwKJ94M O91kYVde3B6zOA7O8KnKYAhxa asxmxohCK6VVOxTGGaxR75sJX k YVivTv5ge6I2m173ZIIxOYZdc V34Ch4sdHudPHVpfBPZdJ7vyv uwk8ccfrquOtHdMRFrMOq6UUr 0 QBEpfOyqDbSzHEF6AvR1AQF2d EAvfS2rsXdluiqsrU3zEea+T3 T3yKA5hUGhvAbqqQA+DD75to9 8 A3ZwRpbfWex7PYLtTMY1gFT3c T0yEDLoEHihg3Z9bZZ9F7Givk Rivw9vp1vjIELvRMfjX08wtBU w k6F6YPLbrRP9VHTqmLheLmQhg G93Oyc+FOVirGdji9WgSmsmt3 vgi7hqvDq5ZtLtUWThkyVmjNc u GBR9p3TpWd61L66rIKcsIMAiR SHuMUZyHHTcfHdaph1pdP2mVl 8+UZRxqVM9jLW1iV9dWqQwZnG 2 YUxtJ915VlEozLStPjzlp7lyt 6qbiLc7ZpDsDIZapvZygUydQA A7a6DjYs01L7JloRysk1CzNny 0 ft89xHQdd7I6oTH9S5QsHWFig evksGJxzKpoZF6jCRXtzbitYN BjfH3hNVNrM7r3ZfYyOmY2HQy u A0PiigS0DIUlbSGyYKHliNJFn L1dljwfw5sjgpjtZdFzQHPdXW c4VVv1YFRhvTgyZsEtCYZ8JjZ 2 NQS7wQFevK3kdRayamtaaN4qQ yc+SFd7h8lyoGOmVQ1yvQV8GA 60YB20pFGsl4R4hZS2E5PoJUP p eqxullcpzKL3LOQbRTKwhR88W r6jlBupWh6wLFKkRJK2QFYyeA OaQ4QlbD2iEhPfJSFhWEGjJ3K l tPSzZOlrT712DBcrPjR9UDDzo jKfQ3SnAUNszTafUdQ1p0R5Pt 5ILI33HE06JO71xUYns7M4uPL 9 N5StMRPczlgupmpipTO2IUZpT ENvqP80Rz5glKsqIa4gTBNlBC R3DGYntCDwH6PkyL7eRcFtYMM w VEZyQ0CwuUXzUVczA526LEzsC hQ4TFLdkqRqR2CvCLMaqAwaQu M2x5R8Ud2GAz11RV64HA76rEC g b3L5jMB6L4BmCLDvobdnosuqu LW8WRLkFGMlkZ22Hn5dqVebDn 4cMVQoVZT1JYNxfKJcZ1AywV1 y OkZeFXTiMBUbL5PjoGGqGZsyI 916ENkcGjN6SRCzduTkX8UqSJ MceCbuWaR2z9M5Ww7IUPdwcce 8 T7AhLevzbEQ+ON35CRZhDR58v VRqlNOen9mqjLq3TvBwCWSsAO A4xTjfZJszk5WsNFTuE66lbMA w c2U6 (more content not included)... [facility] Consent for Procedure/Surger yon 01-22-2023 Consent for Procedure/Surgery [id number]#1.00CD:12 7 [facility] Consent for Treatmenton 01-02 Consent for Treatment [id number]#1.00CD:12 7 [facility] Multi-Wound Charton 01-21-20 Multi-Wound Chart [id number]#1.00CD:1 27 [facility] Nursing Assessment - Woundon 01-21-2023 Nursing Assessment - Wound [id number]#1.00CD:1 27 [facility] Nursing Note - Woundon 01-21 Nursing Note - Wound [id number]#1.00CD:1 27 [facility] Physician Orderon 01-21-2023 Physician Order [id number]#1.00CD:1 27 [facility] Procedure - Woundon 01-21-20 Procedure - Wound [id number]#1.00CD:1 27 [facility] Progress Note - Woundon - Progress Note - Wound [id number]#1.00CD:1 27 [facility] Coding Summary.on 01-15-2023 Coding Summary. CD:[id number]:[id number] Gh0bW w+PGhlYWQ+QK5MXOFqU54ovAC sbJ6KK0bZDV8AGSAAGSXQAN9L LM9zqBB8IQfcO9SashWo NlajuENaGS92RSe6ZSV9rEzwJ CfjeM6csTUqG7r2QtUzCE38pX 82DKlpKXNoVbD3NsBlkkcftPD y D8bsLnNltJNmDji+PHRhYmxlI HdpZHRoPScxMDAlJyBzdHlsZT 8yTp7bAKDtUSKgxCgrhAKoWyG j z8ksGMYgABwrSO2uaCcwB3Zer SV4MGSvp7g8Iw55nMH+PHRkIH P0xTtySLeal345XtZts5ovAXT 3 kJVpHPfkBVG7G85lr4L6SMGsF SNhPUL1tDV1wQ9yfMntnvjfC7 NcqGYjHdH3YIK0wBZmrP3arGv n txghqJ6wFqy+S40VUY7ZJLJIA W6NEjn5T8JaKylgpFC+PC90YW SlXY11oSTmhDDvg7kkzNr8MrG w DHPnFPN9vIdaEHqjm0XnPAMkH 45wyPQou7V3XZFylEgnjYXfJe IrwRM8nB6mRTrnmqvnf0bjbmp n Zkskp9szpn75oZ85L60wJJfsP FHkYTT4QSGcJWDrsTgvkk8uyE 9wIi8+KCwzk5ocr8gxwHo1CcD w WISuqsXdsFgfUFI0w2StPa91V 1FkyKnjb2XxCny2in42zXPco9 F9qHS3TBlcJGQczS0fMErkBmS 6 EDPaGcGstV40tVNvWWorJu4xu EcthSvxID8tKBNlfjnpBZTyzF 0fJPXqnRVqpQgwNK2cYUIvrgt m n481YxZwLYK2ARImtRAtF1Vjd N3hSeThNOFhQSHpE1PzoBLhFL zqJ814IYcoXnN1TMNeiyInE0Y s HVRggZayMcR9o6W7Ol5Tx2Rlr ybwLDR9VBxpGQLvFbJ2LzOiKe V7I5CzIbn2XMTsmReoWA2kM9N h ENXvexdvghezrUL0UODiJQKlh A74hDZpQLslKs6ky0Y7y627GJ GhJRPexT18Ps1bbCmcMJAkuWD U hD6fsaqzk8mpikbiKtJfAELhG Bc4TRr9OFNsiXzdHpXhUDL3We Z3RIW4aSBmsK4zpRpzwjwamN4 w Oyc+U70tjY3jWVY1VJE3qldiD SFhklOyZL38AS73G9TqPikwbB FibGU+BFVwisJxyZtlTA1bHiB j o4sgi8WaDPdjO1DmVAExAUbwM ln7HODgHVJ6dOI8aL3dEAZeWM ipk2O5aPR9M6KujsDobc7rs5c s SMWhJSefY85efYZjo2K2LSUob EU7JBHizKogIxRbhA80Wpm+PG UgmIycp8NeBptlq1haj9mnkLe 9 RkDdNJZzytLpzOdzFDU1h1BnE z86J24sVBwqWXQkFZBdDMMyWE HkhObnpb7lqL5wSc1+PGNvbCB 3 tHO3eH4qCPZeHzR4IUolQ076V uBtgWUjGklzf3own7ifoFi7Xa NjCCOlhsPnyLsjLYP8r2ZgVm6 8 V70dWMeqTZAcRIDbNIGgFBBee Oalru2ohJ3kPb0+DP7wp6bnxr 10wM92dSU+UUQzHYU0jAnjXOx w PNUdrL2zWApmRuA3DHPpVyNiv Z84sMFpPIegZn8unJltvSoiFL 1gXGPeiefeg100ZzNay4ktZUC w aCSlLWooEYC8F67yx8A3CRIxJ YSxRSE1eIB0pA2ggKrfrnxqwL QfmVqsdwZdpTbcFLxkJVcyK36 6 IHRvcDsnPlBhdGllbnQgTmFtZ Kp4B3EmNca6OIXzrEdhVS3ggN LsTDmxNw7trIthsWqiXW1tLUW p rhpjr905GmSkd0epVXPnwUYhC AcbRUT6L80us1F3WEYtQEVhVL O5rZJ3wM0byZoizmndvHNcuHp g sxSjlXiyYRgpRRxpW070IWQbp KreOwHradOjSOGadGY0VX95SN 02jDSmm0D8eXI9D4VlSVYlgbo t pivuiHI5TJObPGNkzF02Sd0hh DctOa3aMQKuTFZ6CLAnrZDfV0 JvwM3hVkNjGMTaPSQhT8ItgEO t GUoeX035DYmlOfF8SQImxiIiJ 9JoVVJwlEkbOcA1b8D1Ez5QM1 S5TD21VT27ePIqq3T0xEI2F2Q h BCYeuvoidioryIQ4MXFgUAWec Z75Zw3euVzmSk5jRELoEVP7TL WvyVMyB9NwsX3qRtErDBZkWKT w T4WvyHDfJNueY242GZeqPlB7M KHikbHyP3WuETGvoIjlUcB6v2 J4Wa7SLKs5IZ00PX40rGZzf0C 5 rHW5U6FdCTFkiblgzqgteKD9I DMuEXUbgG41Sg5onZokJv5sXB JbXIH4QEAnmMRfL9OghG1zUvK j CRXoFNAbK2NkaODyAVcaS487A EloWgL5LPVeveXgP7JuEJPenC obGnU2d4C3Rk0NGTSiSF59YYP 5 hVH0BJ65PR45D8AiZzolhLIax +PHRhYmxlIHdpZHRoPScxMD RsBqSpgZiaLI6nGz2uMFDdCGV v xVbptOFaFaRgz0paRCXuSMtqL V2qyAoaI1SgiTA3SHIek2o4Ix 10M77rY3RqxER+DJGynOS1aBL 0 bQ8xZsVtAsL4GErrJ072AsAgu OScWtmjk9cuy2iivZe2VdI8CS SkvvFkmYanZGG8k0NhNe24L63 s IHdpZHRoPSIxNSUiIHZhbGlnb i3okO8gSi9+UTEoaIP0xUI9cZ 6eIqItEgB7SYabC168GsJsrGB v Jtafn2qqq6lddRx5YxDlPGBrc uQmkPysWLM4q9YrZs03O5WedY ddo0RcEgk0ab35tKBid4Q1bAW 9 O3XmUIIrdgksfERilZfdZC4lM BVjiwqjGYLwqW9vUQCvA4b9Wm KiSbT6QWfgB0EgdoR2EMXerSI g ZQslSAM6N51zr4H5JTCjNPEqT NC5kKM0oJ6geEzzvrrzdQEjdJ icfiIogFygMPrkYWykL146SWD v bQcsPALjxS6dGBSuzTRonPjfR F6eDUGkcrevQcIFOt0PEngoYS 6TYLbIPSm3P6InGcw9PIQajWv s MS0ufPLlIUorEo3ugPxyxLwyB X1fQUAepomkVNYswQ5jACYnsD AleIguAE2xKMHohepur827WqG x UWY3YZXfaIXmV9KbkF1dYvGrK PIvIXQgE7XjlEXbFGwtY926VL ogUiP1YPFachOyQ4JnDHRwvOx u PnA8j5Q5Wx4oPe2dKB3iVRE8C P85XU93lXUyg4Y9tHJ7R8MxEN EnlrjvjikgkWP1PEUfUTXlpC5 7 fECsAHgcJt3mn8U5t187RWNhX NRsxC70Lk0mvVqjSNNstNNCjR 9skhktw6ujtnocSwFzHTMjDSd 0 AHz3NBTygXouTwWqHBT5VvB6A JH4xLIwhP4vsCgazndflC6oLh c+FiVbXKAoeaV3B8EjBsw5EOW z jLryGZ8ewIDzYSqnYl9cvKoke YulNT4fJUQuwdrgDCDchU1dJE YalFJwzYyxDT4fWCYlhmgpd89 0 AdJgYTP9WOLxoRFwS5EcwK7pQ mJqMWGmBRWwI4GftTZnTKcgD7 42AFnuSxK4AEGobiQcR3JtZPN s rShpPlK8f7Y9Cm3GLSdtRL92T I09nZJpg7O8gDC3R5YjJZLoal hxgqxomBM1ZYZlKTRvwF11rYM k RRguFd5nv8L5w617TOXqICUwc L50El4dgNhwEPXtcJDOtI2ipv eax6hguseuUgIpWVGuWEc5FTv 0 YRYsnDjnWxQsQSF4UqV4CKA0h OSvxM4xdBuzdqgfuZ9jMbu+T3 I3dIE4rXItgCrbhTR+RZ31ht6 8 B6FhXocvGcm1PXAfZIO1qNW5m F3gRCKtMVteq0N3uXX4G6Whpg Pcbq3fo1nwJGVgSEogG76ocPP w i7I0IERgmQB9IEUxyPsjTzKhp G93Oyc+UQXyhBnyj3ThVwqsa4 uff1zbyEm6AvHlIWWlomWcxOu u ACB0v6LjCa26T93lOTdtBDQaV QIrRZCoWIOdrFsfxz6jxK6sFd 8+PPJrfOT3nIS7sN3gCmQmUcW 2 HWcvZ748WaUdpKCzEyguw3ydw 1mzsBx5TzAvXUKagkBvxSlsDL J3l2RbQk27E6HaiPabj9VwNrz 0 ij04nXJuu5P3uOW3W3AqKEHlg nwpjTZitIjbHP7aCIAilgclIU JbyH9gREDgE7h0GrDrLjP4RIt u K7CuhvX2DTYpsDDeXKDbaKQQk P0iewiaz0qrhtloWaPkQOWePZ k3UXg1XEWwsLphSlVmSPE9QiW 2 GFM8gFMzsK2vfKuwibdrcG7nB yc+DVo5h0kgrVPbNN3trQX1VG 16VJ37nJEpw8M4wNC2J4PyLDV p bvtwqcjshYV9CQGbRDWhrZ56I d0ujVeaPg0bGHIoHTV2TITvvV JeP5IpbU9tPbRvZBBoLFGzE3X l iZDvXXbfN468ILjcXxO8BGSry hPiD0HdIZBzlDbvVtJ7e4B9Jl 5DCO82CS44NB40rLDsk9S1uZV 9 Y6ZcIWSyhteyyyzbwLF4SMHfG CVgiS54Nf0hfYnzCt1eCUMfSJ O6QSFurZRoT2WygQ2fFqGsLGG w LAVcD2TscOPwOBikV329CIkwG lF4FCFoptHoP3LoRNRspNnwGh J8n4Y6Ix1ICx17XN48LB88yUH g u7Y5tWS8O6QcQCOugozbgaydh PC2QPPtGZRijK69Sm9fhJpzGe 4yUBMrBYU9QMIiyVDcX9KkzZ7 y TaHrCGJhBUWeT1AluCDbWSniT 426AMhyYmB9ZSTcmuJlE9ZrWT BbnHzlVsL3t0U2Ed8CDAvylbr 8 X4KgKsknsXG+ZM63MNYxWU38u NFtvWXwe3sfpXo4XeGwNZMaTF T6zRryJDgwu2UlZWVcZ82ntKM w c2U6 (more content not included)... [facility] Physician Orderon 01-15-2023 Physician Order [id number]#1.00CD:12 7 [facility] Coding Summary.on 01-14-2023 Coding Summary. CD:[id number]:[id number] Gh0bW w+PGhlYWQ+CG7THROpM46ffDC asQ3SP0tYTB3UVWNEZUDTNC1X GH9nzQP6CCcfJ2EjujLf TerybBYjJD00FLl3XSM1zUwfI IftoC8wnDGkJ7y3JyPjTT14qF 72UIzqDONuOeF1YaXxcdtbsDG y F1tyCvGnhTLsHyt+PHRhYmxlI HdpZHRoPScxMDAlJyBzdHlsZT 2uXk4xHDVdFYPpqPfbbXQpBmH j w8sqVQAwGGhsVT4etQrzA7Xdp NI3CWFvr3v9Ij65pGD+PHRkIH G2yNvgLAnjo449LwLtl5wkCIB 3 nWYhQJlpSMN2J08sx3D9LXEkG ZSfONS0eNC0pZ3wsBqtbpipC0 TznNBeUoQ9YYE4fPMtzU7ruHl n qarhtT2qIss+T20UWM0BIQDHT L1KWrn0B6XrAuricDJ+PC90YW MoPG95rAQuyCBny7gfjMq6VcR w MZSyXQX9aNgcYKfpf1LqVFRoO 77qjBXne7K6ZEJdvYufeVEbDq NftDQ2tR3yCOkyxtvau0eqppz n Qesrf4vqpb34kG94W00uDTwhB EBrOLK7ZQCmSFJeqGmljf4rtT 9wIi8+TTcwi1omi2ouxLr3LtO w EGYertKofZqtFNT5w9GvUj07M 2EfpBtxb3EfPhi7cs90qYEfx1 V9gIH2CPvwAUQyxJ4uRQznCbO 6 XKKqDxGzfG55mFMyBYqjHq6un PlrkYcyOI9yCNAiiubqVPQoeA 2kORKpmNJpgBivJO6xJPUivzv m d947RxYcNZM2NEThyHEoX1Itn J4eXhVcDHWwBNKyC2SacAXjJD vbG578KEzqJbU8AGKeyzWbM4R s ZAQgjVhzDbQ1j6I9Yi7Wp3Pcl wmhPCI4FZuiCAPgSiS8WvSlAr Q1P8ObCgq8SPVonVewZB0aB3E h ECWqtpewdnvytOY5MJYfDABoj N65hZCdTMylHs0mv2G8e147GL YxYHYbnM18Ix5nmCfoYMCdoOJ U uQ9rspqlm5hklcvxLvCzRSMwQ Cv2UXs5DOVmkJbaBmLpVJP2Zd Y6GUM1oKFisJ7wyNnueesxlV3 w Oyc+V33npU3nWIK8PEF3ajepZ JGyheSvIJ24AD14U9MrEzjzbR FibGU+GLKktfLbjUytKZ1aXpD j v1jtp4AfVFzeE4MvXKYtRIdxJ tw9TVEjQYT4sSK9mO5tCDBtYG unn8Y7dDE6D4GygeOpkw8tj1b s DNEsRUoeH99ywASgz3U2BJNbq CP9KVQanCgmEiPouZ60Eit+PG YfhCmmr2FbEedig6nrd3fxcYg 9 CaNpHTJuznSzyNfjKDH2l1RbI l24J05tMJhhVSQeJQZfACQvXC JqtPvwwc9wlW1dFh9+PGNvbCB 3 xHS9eS7sDBToQrO2GUhvL338H tMygVLjQxcib8iyu7uvjTx3Rh EqZODcojLviRhjWNI7f3UkVi4 8 Z63eHGsfZKWvFQFgTIGcDRDbe Pgngp8mlC3vOs8+GY0qu3mndq 80vQ95hOA+CNUlDZN7bRdjCQd w AWSgkG1iWUiqAdK4QLAfLtSsh E49jCWdUBxpXv9iyChrjAaeBU 0xYBFnzljyr267RxRhm5wfAZQ w wMSxXWjtVCX0K39il1N1EISjL CVdIBD0dZJ5vV9emWorsnqpjR ZciWhapdAsgHqwBKrnQVmtD72 6 IHRvcDsnPlBhdGllbnQgTmFtZ Lr8X2FcQdr5VNPqxOecLN2lhJ DzEHumPy0ahUrasJamUC0mGVJ p bwfck429WsTqx8zbKJRznIDpX HlgHGB2R26xo8U3EMIaHGHpRS N6bEG4nH3zzSmfifqwfRBkkFf g ayRtgRyjXYnlNCvqE896RYNxw VhaEhMykqYvWYOwfVC2NM60JK 97xZLbq0E1aBE4B1GhEFKryel t vgzsbHR3BPOsKZMpnD74Qr8yj VlgBy0zIUIbSUB4SWFgoSXdV5 FbzG1dRbDyDNGpJSFaA6LlwOQ t IZzoE065YFgeVvG7DDCvqtKyT 3ZiRCTovIqxZtB8j8A7Lc7CO0 K2PC56CG34mKFfr9E1nKT9P0F h SIDjkdkaytutaRO6AKIjYBJrb Y93Xc4hvTgyLy1nDBTvDDW4LQ XysLApO5NidW1jHgRaVLSbOSR w R0UhhIIlVDunZ585RHfnEsT9Z ZGjbcHsA3FwQZXbtErtHjR3b7 P4Vp5CDWo2WH14US84sVUmb7T 5 jRN9B5SpMNWxejjanbevwKV2K COkKXYzgV12Ru4elXrhXl4qMW FsISZ7VRDjhHKhS7GbfV8fAtM j LIYuNPDjD4SbqYWxQNtbJ954D XliZaE4VIDwceNeW4UqQREdnU mtSwM3l1H9Ia5SYWWqVQ42HEV 5 gXO5NL69LB40H5HlXwctiKVfj +PHRhYmxlIHdpZHRoPScxMD QrYlHjrHdyWL0fZr6hVNVhRAU v lMbofCKyCvBjs0ekPNOwDDdfW V7oaJkhI7TalGW0CHFuh9d7Ap 92Q99aW3KphBE+EDQbhCK7eDF 0 sM0qHfIvAsA1MXwlJ375IxVyg PBfYssau0qpc7ztpNd8BnT6MJ PezlDutShrOGP5x9HaKe75J26 s IHdpZHRoPSIxNSUiIHZhbGlnb s7kdS5nXs5+OQYagSU4pVZ5oV 1wHfCbRkU1OLoxR913RvAthYQ v Racgg7lzx4lslGw7JlVvMDImw tOcjKyhYWK7w8WzXs74Y5CwsH oqz7PiFcb4dc75mSRbe8R6xCM 9 S1QlHEKmnrcekHPpqEjyVL0gM CTtulsnVNRycI6xNZOkS1o3Wp GbBfT5OQcbB7NqnjL5HHCmeEL g HRfeARQ7Z32wp7I0YDKqMDYlN JG3tEX2mU8onEshynqkgECdiC whbpCtvUqoTWwsGXntI373MDW v cGpaTJTvmI3hYNZelOLfgRfmC R2jRDPtopsfPdAIWz3RBdjqJN 9XWCfCRHt0D9KfMlb6SQQjzNd s DX2opMIzJZmyMz1ubJvrkNszQ T3iEUQcnpauNSVldN3uHVBsoZ ZtfEvsLG7jJPRsvolaa503ZeP x QRJ2TGPpvHWtZ9XczO8yYnWjF KOxZBKyL2UxaZVgIBwwK519IJ dtZkI4CVHemvGfE7YrDLXipSv u ZhB1k3O7Vp2uMf3rPO2gUIJ9Y O00WL20aNMqt2R1sGJ2L7VxWT HdbndgwahefOS1JTShIYFyoP9 7 lLCzVAbzCn1dx8N2p875SFJcN DYzwC77Dd2aeKmdFGGwyLZEyW 7wllkly5fkjctzEaPaMQQaNHv 0 JJu0FMVhnLdzTqXaJQW2JfR8N OV0bAZwsI1caHbfymdopL7uZh c+BkBcSBRsnbW8V3NxSeq7OQV z hOqtJO8zbZNgILxnGg3woLrza DaeZG7sMNAcgtsvWGFzkN1gNK TnjVXzaUqmPV9qWNGftllim28 0 ZxBwODP9PXUiaZJkR9KosC8cK rDkUXZvTRJoF4IcqQMrUKdwO7 42UBtuBeN6AJGibzSiG9KiCWF s oKdmRgV7f4Q6Mt4DQXyaIR56T J54nAZgn5B2jGU8K9BfRCYidn skrbxfxQI8MCZbIFFjjR02nUS k YIwxZl2yo1X7o854KARoVEEsv E75Pt7djNicOYBiuHIUbG4vab kdf9ntcplpKoLoAEEhANg2ZPy 0 OWBmuHioKxMhRFP9JvW7ZKO5y XZzdB0neWtbjkefqY9eTrz+T3 H6gFD2qAYmaRdvtLB+WO76zb8 8 K2VaMdbfQnz5TWRgSLV5aAI7o D8bEOBzHWryz0B1wRM5L8Tihz Osgw1hv6vxVFLtJKyzC41rvVH w j3W2QHStsQQ6BFGwfCtjGbYap G93Oyc+AGLrwZnjw2YnNubch1 bbj1vgrUq3ClJbNAEebqHxvRt u SSO6z7NeMo42G29lJOkgZWTeW ALqZPKxKODobNlfwk2tqI5bOw 8+QRSzoIW9cME1oT3bYeBvElA 2 SNrsR272IoWuwTHbOxbwk3wdn 8ixjGq0NsMgTYIjicBtuZbfNQ N1v4EdDd76X2ZhoBhlo7FfOvh 0 iq59vUXlm3R7aNM0T4NdDEGdi csilQOkgZarCH8xWEJuidhkZT AdfG3nVGUlM2w2HxNcRhX4GUa u Y5XskbY7UKChdZUfBCOvpPFKk E2ydhmsz8tgytazOlAcERTaAQ u4AXd5WGOgwFbaPiCkTTF5OdN 2 ECU4iZBvvT7opQylvkcfpL6vY yc+OFo2a8gvdOGyEO9ceDX1EO 44TL56vAAjt7O4iBW2A1ImHMG p mrhttvmpnPM9BNEfRGPyoU86Z n6kiRrlLm5tTEDvBBM6VGZmjZ TtU8JwtR8vUwHjZYBnBFMzU4P l ePHkEZtlJ141DBsoJeH8GXFpi hGxU2BjMTGpqHdkBzN9j5W4Dd 6TEC97UO10ML68pIKjn7L8aVG 9 U5UbOUIoaukqyrgymJK8MMWfO GQjfD33Ms9hpZsxBs6aIJNmVJ I5QFTdpCLzG9FhjQ3hLeUoWIB w OFNbN4CmoSEhGFnpN170CTugK uV8UDTjrxIiF0RmZASssDrhZu I7r3V2Mf6SCo48CL53HC01mPO g o1R0vZR6M4QbITZnbbvflxvkl DT6PHHaJLFmpW02Gp2hqMcdWz 6yWHXsNBQ7BQEqeSSoN0MxvO9 y QrJeFOVjWCXmY5DsyUUjMByvV 279OYfvOyA5TYDpyaKaR8DuXF XrvUfwRsF4c0M6Ix4SBKudlnw 8 O4CvYkgjdVN+CJ22DLCmUP12c SRplMNfe1acnXt8MkXpMJZjAZ G8mPhzOXaix8KiTZZxC10mkVI w c2U6 (more content not included)... [facility] Consent for Treatmenton 01-01 Consent for Treatment [id number]#1.00CD:12 7 [facility] Multi-Wound Charton 01-14-20 Multi-Wound Chart [id number]#1.00CD:1 27 [facility] Nursing Assessment - Woundon 01-14-2023 Nursing Assessment - Wound [id number]#1.00CD:1 27 [facility] Nursing Note - Woundon 01-14 Nursing Note - Wound [id number]#1.00CD:1 27 [facility] Physician Orderon 01-14-2023 Physician Order [id number]#1.00CD:1 27 [facility] Procedure - Woundon 01-14-20 Procedure - Wound [id number]#1.00CD:1 27 [facility] Progress Note - Woundon 01-01 Progress Note - Wound [id number]#1.00CD:1 27 [facility] Nursing Assessment - Woundon 01-09-2023 Nursing Assessment - Wound [id number]#1.00CD:1 27 [facility] Nursing Note - Woundon 01-09 Nursing Note - Wound [id number]#1.00CD:1 27 [facility] Consent for Procedure/Surger yon 01-08-2023 Consent for Procedure/Surgery [id number]#1.00CD:127 [facility] Consent for Treatmenton Consent for Treatment [id number]#1.00CD:12 7 [facility] Multi-Wound Charton 01-07-20 Multi-Wound Chart [id number]#1.00CD:1 27 [facility] Physician Orderon 01-07-2023 Physician Order [id number]#1.00CD:1 27 [facility] Physician Order [id number]#1.00CD:1 27 [facility] Procedure - Woundon 01-07-20 Procedure - Wound [id number]#1.00CD:1 27 [facility] Procedure - Wound [id number]#1.00CD:1 27 [facility] Progress Note - Woundon Progress Note - Wound [id number]#2.00CD:1 27 [facility] Coding Summary.on 01-01-2023 Coding Summary. CD:920902EO:[id number] Gh0bW w+PGhlYWQ+OE5ZYTPzP06uaKP aqT7PB3tYSJ2VOEJGCSDHPC1E JK3pfPI9QLflE6ExvoDp JlxugOHxJF74ROb6SOO3rVgyU FyciH7doXQyE4m4ZwAnDT39oW 00BBagJPThGwR6VaWmtoabyGS y R3ibQxFkkXIhRev+PHRhYmxlI HdpZHRoPScxMDAlJyBzdHlsZT 9wMk6zALFqYPWbpEjxlBAbOuT j z1bgCXQlMUzbJB0huBpnF4Uwm DE5NMAnz0c7Kr33tQP+PHRkIH G2xFvrIQvhz498RuHkv8oaKJR 3 hNRnSKvlDRV6B93hm6P3AJFbG KZvYDX9iKS0eX5lxXbyalmyK8 ZajYJyXbI6BYK5wASfkW1mrYc n aeagwT6oTqf+S88DNI1BYQART B0AOfk8A0InIgikyUY+PC90YW PgLR67vIKitXUrv2erbXi1FeC w WSEkZOT1jYygRSwjl8JuXEImH 35cuEClq3N0IOTrhZvbyHIaRm PxtVQ5xG5vVUerojowg5ukulw n Ysxvx8rirr89mY89S44hYTbqE RFcBWA8FMAaCPVtnZvzew7pzI 9wIi8+HZenb5tpm2gfiPn9RhC w PMXechLdyOoxVVP2f9PfEn90P 8SjdQuxs9VsCsj1pn23fIYvs3 B8nLW6BEcdFNWkiD0kSAfqMfH 6 BUOfIeBsgO13jDIzNYfyHw1hv QubbUxfVJ1dBJKuraqgSEWytC 4vHHJrtNPpdTcePY7gWQYscgf m c710LlBoIIA8YTAjuQFbD4Jbi X4mEmHzCSNoMRCsK3VwkDNgNI brH388JDmoWhD7WTMbvxBeI4K s GDTmkXsiGgT3g0V4Tp6Fq1Wlo utaRKC0XDueMXHyJxLcDdVpBg Y3O2CvJcz4AERpuXupPX1oO9E h IRRjiwhexzojfOQ3IEYjSNBbe P56zQRdEFbaVv2ns0V5y239BV JcYCOunL45Eq0plXsfTSDrwZX U zA7eaqeig2gsrmxoRrIvYQErR Jj3BUh9DSOzeAykXdAlRBV9Vf K5AIC3uMNngH1xoKxiwagpsA5 w Oyc+P44jmT1vQBQ2AKI5ropuY FBnfuTxXJ71EM44U9HtAmsmmV FibGU+UCIhqdGogHlwQQ8cQwN j z2rjr2EvEFrmC5DkSQKaVTlfI wx7CEKdAFA3sPJ0xR7cGGIwHB zfa5G3jRK7Q6IklkVkds1zu2p s NEYjPWqtB80giTGsr7O2ORCox UR8WHComVtyPvPbsJ90Phk+PG SsrJgau6TiVrggd8foz8meeOq 9 WnKoHTDclbIuvFhuOPS5b3EuJ n02N68mOFbgDTEjVGPsPZHbSY BwyRgtwm3vuH5fBq3+PGNvbCB 3 aUT4qD9zCHVaHlK1VZnsA950G eUmvAIePhtlj2qod4sutRz1Te GeSTHscrJofVcjIDI1z6XhOb7 8 S49fGOkjDFVwEIEeONZtLQZyr Wikii9mlC4fAk3+QD8av0qzbc 66uE91jHU+LSOrJUO5zTwnBSn w KVAcnW0hVHcaTyB6APYnKhNun N47jBOmNGweNg5qdKtucJnyNW 0vDIRuroihj203CuLyy5jjLGD w gTNvGBhtAKL7F39jb9D5OQSbZ TSkYLP3xCL1bA0oaJiwjpgelI HwsUzmiiDmcMvcWItkRKhiK70 6 IHRvcDsnPlBhdGllbnQgTmFtZ Tt2S1FkWws8AREtmCzgMD4bgS HuLWcjFr4otXccvBjlHB4nGJS p teruk383ZvLuy1tvYNVbkTFtD KaoNVL3N60hd3G9XFPvWEMuBC X0qPV2bL7pcMvhcbisaRLlnGs g tuWgtKggGXeqTAybI144YWVrl FquZhOivcJyXPQshYU5CI78UK 34lADho7N2vNI2O6CrCJAkfnb t ylbnjRD2VNYqFULjcM76Nr3ad JqgNa5nQEUmTTV8GQIcwJXxI2 HsuK7bUqCwRZMyHXAzX6IdmEZ t UTxpK623KKjnKpB7ZMChsuZfJ 1ZuXIFgmKrvFxD8o1U8Al1GA6 D1PQ63EG44rAChm3Q0iUD3U1W h GAMtoazdhnhmgPN7UKVaVTYrk V34Dk2tjLqaRr4eQKAzLQX1XT IazQIlO7YvmO6uErTsFTLuBEU w H8XrbFYmXPreF085ZFltZcR4D ADtpyWpO8OtEPUgtXmjFwV1j0 J6Nc4SSBl0WU10JE41jEJsl0B 5 aDP1D3EvPYGevzbllgsyaSI9H GXeGWCwtV32Cm3mzPsjOh1zTJ LdURS3PBFibAStS7ZjuS3lNiY j ZKJdZNFxW4IvwPEdWQsfD399T KaxBaX7XAVxhpJtL8DqLLZewY erImO2b2C4Lw4SQBMtIN21GHC 5 bUS2JB27JZ73H2CaXujtvTYrs +PHRhYmxlIHdpZHRoPScxMD VsSjSlpQttVI7zJd1pLGVcIKK v fHdujQZwOtNkc2shPGCwKKvzD L2wtDanZ1PzfYN5WSIim2x2Ll 02F75wR5PcwHZ+MXFjlAE2yBL 0 oD3hMqOxFmS6UHeeD777GyFuf FTsHuotk0nag4uwnKy4AcU4YW ZwqqQesFknWWK9q3VnVp92O78 s IHdpZHRoPSIxNSUiIHZhbGlnb n7ozQ0rEt5+RMPwbFX2dLL6kH 8wGvOgIhQ6ALifV291OjYaaVM v Cnipx2lhg6pymLv2BvStXPSek cPvbYerBCX7s0BpUw90V8GmmQ fhn7PsPcq5je16zLDfb3W8kKC 9 T0RkGQUmnarlhQJucYnpDG6zH GEnebcvIXLrxH4bRHDzA3u5Rw UcMtJ6PYszN1RnknD5UOBjsYZ g RMuePPD2L18uh6B3RDGpVPUkJ DY8aCB7iM9lmImnwhppwUTzyI xighCyiQaeALejCKkuA237ZHM v eTovMQLcpR4nBSWdeJQzkZsgN M3zXIDtiplbJxAYLc8FOffwMV 0TKFtJAAm9W4RxEsw9JLOovPu s PD0mlPDwXBkmDj5btTqsvWzvR J8jDPLamkzlSXYibN6cWNMjgY UbhQpvIN0fVSDlhafos218LxT x NJZ3UOKvqVKgV9YpcD3gMaJxN PAbBTTaO8VloJPzGQsfW575NM wkOvR1ZPLdaqNmQ1GrSFVimUn u DcQ4q9P8Lr3yPv4bOM7iYEG4U S54YY32lQWeh3Z3xOT3T4ExTO PbakoqvvnsoHS3VEHyELNrvU2 7 lHVsGNuiCw5bd3B9j641RQIgL WNpkS06Go0lwRasPEWiaSMSuB 8eaafoo2oqjvdxSpQcDQLrOEd 0 IKz4HOUxjPoePqFgTGK7AyC9F RM3sNXunF3spHssrytrwO4uAz c+RrCfGLClciQ8A1VvReb1WFF z fYvrNY2teVQqPNygMy4brQtje YxmJD8cZNEukoffBCAhjU5yXP XymWQfpYfeGW3rZKVdhertc79 0 SnSfYTF1WNFbrIBfQ0YclW3tE fZsWONuDSKjX0TcbOJnYWjeD0 97KKmgFjL6CKKhfaDbL1JlKWR s gIvgBtH4d2Y2Qz2BFTocZQ62I J00tVJgc9R7uIN2W1ClQSQmyh wivcisaZI3CUDnPKSjdF04sXF k ZQjmUx4ao3A2s801PCXoYTYao M30It3ujHkcMIPwlIQUvC1fhk gil7cmrmnwKsDgANWsGBb7MIw 0 KMLghUbuNuYzWWQ3ZtN7WBY4x LRrwS9hsNdprgabeW4sTms+T3 C8eAT6dSTzsKmzkWA+CV27dw4 8 U0SlAbrfElu9UZMyVER7vEW9a P3lWJTiGDofr1L2mCL7V4Uvoj Nvnn3na7svKREhZNjlC89maLN w h8D8TBLahLR1XWTazQsuUyPpv G93Oyc+TCDxnAxos6CzXzhmb2 mnn5bfcPf6FuWwAWHsdgEjrJr u PMH2j2KoHm47F67fLRbsFCBfR DEqYAZsOOGbyEoizp2dhR1qTo 8+THUfqXF4gQB9gY6cOeQoYzH 2 TPikR283FqBxlEJaPfnye0cwe 9inzMd3XtEpVHYduhBtyDfkVG Y0w2NjCb60I5ViuYjqb7FpPkr 0 zw69yTCzw0I7bWG4N8IlPCSoe iekoIMptVdmXB3aOUAodykdES UosY7kMQYjW8d2BfUvBfJ9WOj u R1MjtkN4UAFjuKYwGRVmjLPDa N5losqyz0njcakbXhSkQUPeAC k1BZb9TOQbsZjcLhLrZVK6CfH 2 JQO0nBHdaE9ciSduugxnkS7uR yc+PBb8g4nusBEqQE7hbXR2RQ 79DA71qXRnn1R5mMA7E6OmRJV p yutapjehjBQ7ZLLfELQtdA78J z1ppYpmJa6kKOCkKWU7ZYQqyX JsE0GqwW5fXnFoVOCpHKZoP6N l fZIwJPwyI678VRujPeW1UXWmo iRnB1IxBODccIscPjJ0z8J7So 2OVZ31UB12NH50nTDxi2S1qXN 9 F8GtJPYdaddyupmugYH7RANnZ SFivK26Hc4frAjmDf1eCFZcZL P4ZPJbaTEdX0BabR0fMlWnLOD w RUGiF7CmcTJzVFufH983EUohW xD7UNHipsXdZ7XfPTJugLvoZr T2i7B1Ml9RWd23JZ88MR06uXZ g g5N2jJD6C4JfUEWcezibgodnz HF1KJEyAPQnhN06Mj7vzOqxWj 4nYHJgMIN8MPCrlBUuE5LzfF3 y GvVcOFRfVALoC0UnjGMbUEerQ 197XCvfUyE7FYOgmeRjI6QdBG YxiKbjAxW3y5U2Ai9UFBfykpy 8 C6XjMjlxfHI+OJ35ENPiRN65r VTmjMCbs7wwhDs1FsXxPTYiSH E0cQhtYYmiw4JfQJPtD41hpND w c2U6 (more content not included)... [facility] Consent for Treatmenton 12-03 Consent for Treatment [id number]#1.00CD:12 7 [facility] Multi-Wound Charton 01-31-20 23 Multi-Wound Chart [id number]#1.00CD:1 27 [facility] Nursing Note - Woundon 12-31 Nursing Note - Wound [id number]#1.00CD:1 27 [facility] Coding Summary.on 12-30-2022 Coding Summary. CD:[id number] Gh0bW w+PGhlYWQ+IB2CRAPjS22quXL uzQ8CN3hBQM9BGTUBGMRVAW5J JC6alYG0WGxmI4YqtxVz AfkzzDNpPU84JFs8SOR3aIakO UqajW5avEUgD9e0JjIwYX37pM 96MObiWRHaVhB5RgCobisfiOA y D0dnVoCmxZEdNjv+PHRhYmxlI HdpZHRoPScxMDAlJyBzdHlsZT 0iSb1wMJEoJOHntKtnbZVeQwB j y1zyCNHbXFwlEU3vfIylG6Hsv TU4JTVqt2p8Ks06qCE+PHRkIH S1zLajGBimh282NoQtf9fgGGV 3 eSMvNFlwJDS9T82po2E9IIYdR THkHTW7iYS3tP7oaUjwfcfoF1 PatBAfIcK0OEF8aWIabH9lqMf n clswuB0zBhh+I57JEJ2JSWKBX N2CDzx9R1OsQvqaqTP+PC90YW CyDF45fNRcpCGjp1mwmNd1GfH w ZBOhLUY5cYriDClim2IbVUWxP 86jgRChm6Q7JTYyyHydvWOuNe BdfRB3hQ4tNZfzfnizu5sdmeo n Enwtj0cwba80iO94N30gNCkhI BBsWJZ9UVZqNGOuwLegfk3ytP 9wIi8+DZacb2hch2gabNb5LvD w GKGhgyNtcHruINN8h8XvTt69K 6BzaSuaa2TfGap8ib99lJHvt0 A2lWM1UQwzJPZbmF3dWIdtWgT 6 AMOvAgOnbZ45rALuSTeyRq1uf EvzyHpmVP5gONKbjpgbKOPkdH 4iOIVyzRGxwDogUG3eEWJzinz m j479IlOxALO7SOKjyMGsJ2Qpm E0gDoPwZMAdAKYmW6VrhHQaBW mlU437KAlrGeR2APEealTjH5T s GISorAjbKeB1s2X5Hf0Io6Iii fvuBMN9LNodBTLvLcMlLnEnOg N1O3RdDwu2RHFzyWjzYO8jG2P h GETkfftuwerghXC3MNKtIGZqd W50cRGdBAkkIr8la3H7p151XT TyZLCewM03Ew0vrXvsGZUakPW U oY9goucgj5lwiygbCbCqRMCoR Ia8YEl0LRAntPwyMeIsACI5Mb W1FNU6aSUzgK2hhBvevzglsA8 w Oyc+W30ryH6iBIQ3RSW1wwqdL WQjeiKnQI01EO19H0KcJpbwsH FibGU+CZZfhuJbiTjgXL3pUuW j b9rto5LrJJuaG2RqWIJxTVpwD eb4IHUrYAN4bAM4yS7oLUZmXK bwl6K1cAE3P4JbzpVvba1kv1d s TUQyHUsvA55svOPpo1M8VTLwk CZ2BWIvwXoaDcBcoK87Lzc+PG UbjKvht8IwAzwct9pod1hdiNa 9 TvMnQKQxvwNxiIiiNWH2u7IfI m48V17vUSflCMBmECJgOMDnOJ EhpSfukb2ebI7tWt6+PGNvbCB 3 lIX8pF1lBTEqOpC9RAkjZ680F dQmlMZqAljht6rlc2ptzSt2Jn EjQDEkuvBaaEugSAK7b0KrDg2 8 I74dQJmfVASuIBRgGPZvXFTqp Mappw0dgS4hEw7+WC2ev0thkf 42nY56qIG+NNVwIYH1ePozZMm w IQWffC5jZVhlXzB1QGGnRsIqu S45jKXuHIpvHw3jqFvfvNomUT 5xUKXccevce317AbWgh3yeBOW w oLKvKDojCYQ7S03gb7U4YKAiT FWySCB6tMY0jR7rfKdsonbzgE EsmIaalbSbjIdhABluANpvV30 6 IHRvcDsnPlBhdGllbnQgTmFtZ Vj3Q8BjWgw1VOWkgRleLC6clJ RbFHpxUr0vdYofcJdbWL1zWSB p pdzmw798IlXry5vaTXBbbLAhT CpbBVW7Q44uw2D1AIBiJDRvUU F2uKT0rQ7jzXilxufucQVynSn g gfZxuXjyPOohXPstW215RWNsa OfrInPncjXsWWYtwJC9XQ44FJ 35wNGku4B0tUG5Q1LaHBNjndw t gqmgbZA7EGBeNOPhlU84La5zc GcgUk9zWLHoFUM4GWRngPGkA3 PigH9lEaYaIQOyGCKaE0VqaDI t DNucP332QVrkWqD2RHGmtiPbU 9CsXEMkxDvcGjM4d6W1Xh0KU4 L9IN47KJ38pULda7I9dPZ9D1L h RCZbtlukddnmmJQ0EALbMIJcu V02Sf6lqFwyCi9wLIQoRVI3XI EotCXsX7JbhA7lIiFsQPRsSMD w P8GlyWTxBRgzA560AXlzEdY2D VDotrCcS0VlHMJkmPtfPcY4l5 F0Zf7GQLm6ZR61DB06qONwk7W 5 hZE7D8PwXLSnicxznatuyAA1P CVsIEBonQ48Ut6ueVvgGc9sIU AwIEP4EXAvrINuW0TrbU6lWbD j RCDyILEzU8LtgMEgZKqvP042F WvpUaE8FZWhofLnE1FyGCHmoA otMaZ6z3L3Lo1KPWTfWT62JQV 5 kPX6TW60VT29P6AzSnwobBHbc +PHRhYmxlIHdpZHRoPScxMD ZrJkFvbFoeYM3rZw2aTIMyRFP v nIbnuBVsVdYqi4pfNJCmNFexH L8pgLfwC2QabOV6IANab2w9Dx 00D82gJ3CbaSE+BAQnsSK6qJY 0 yU0cWvPnXhK8OHhrK812NjLok TXpDhpba0xte6vbcKj5SeH6DI KoahWsxEiyKUE8j0SbWw41P00 s IHdpZHRoPSIxNSUiIHZhbGlnb u7dlK9rTj7+DIKbwLG4rTR6oH 6bDxJsXbR3TBcxZ419XpWidAS v Jpklj8fhk6kwuFp5QtGqKKBvl dHtaUmgMTI9k2FuSi60X0AlnH kde1XzOyp8nc04eRWgw7D7tYP 9 W7NtTILbqqzgcFGczFmcHH3dU EJdqfqgKWNfzX3gNTSaE4x5Pf UtNlS8XFjhJ7YciaN7COUwwWY g KOmnIIW9N18yx4X7LAOtHFEzH AP6kZM2rS0nkSbbldaxeJAarL txqdSqzWywBKmkMVtwU333NHM v tIbfAXAcsN3pLAPfzSFltGasV U3eXRGkqghiJzEHGc5MSkfrKU 5VUPoJYFo1R0DbHrn8GPRruKo s LN5omDBkXQgsXt5xiKbbkQzhH P6kRUQnfwemDQRrdK8yWNKntB BtbNixDA4kPSVrkshwb047BsA x TLV6ZGRkqGIkO6GgbH6kAeGmF RQpABTkV9VwsZXlTAppK680RS jhSnT5JMXbwsEtX0AmLZQlaQg u KvR3v8H0Kj9oPi5rGG0dNEG8O M86WE88vSRfx9B0jGA3U6NeOH DbezqfvcnaeSC8PIThZBEdhC7 7 dSPfLBmxXp1ma4E9h401YHBlB JXaaW86Ei3deErnZQQlbASEtU 5kbrtrf5hrcztlEmJuKAYiNNs 0 NTi7RJFmuWjkFpGcDQB7XjQ9Y KB6nFYyaK6uqBfvtzjavO1dMx c+EdUlADBqwvQ9R1LxVyh4BYS z rTrvPA2kkAZzKSouGk6nnEfrp VndPO2nQFRtfiswDSClqT0uXU WprKKrpTtxEX2wZUIybjwuz23 0 GpHzVHB1YTFbyNHpS6DfuW6cE hOxSJWaDJAdN8KenEKqCUpnS7 69KYirEtA0NJIxaoOwH4YsJJW s dErmYwN8w9S8Pw6LENpaTG01B V78lVIwg8I0rYL2N4KhBUFhmo nbceywwVY9SRUfEEZiaD70gOA k TIlfEb3oq7P7x165PMLbCCIsq R79Pu7ibVtkOOCcwNDKiD5tjx njr8vibwljWzBuBFCvKRm0PDx 0 GGKokGwrAzGdDRH8LeZ3XAT9e TMyyR4hrEighxazhL6fEbn+T3 K7fKY6hDKzkNcfbHQ+VR99wa8 8 J1WnSvquAtb6EDIvCDE4xRT6f S8zFFKgNNybu1J7hWB6E4Wpea Qkmb1dh7pxVCNaXKikF18ptQJ w u6T4ACCavRJ3UVPhgWgeBvWux G93Oyc+GABtpDogx1IfTbgcf2 jch7ewmSi9CiBvPNSjzxFrrBn u BPC9c1AxXi51T56uJWtaOXPeZ VSkKAHpJWKtzSlndi7zuG9fSz 8+TIMosGF1gFL2bT1nIzCbNbZ 2 JMveI221RtUanUYiMrcfx3tse 2oqfMn9PpBwRCQhfhExaLgvNX T9a9CiLd27M5GihEsca6HfTal 0 zg07jCXqs2S2wFL2W5JpWRCzg sxziBKbuMusPL6dDIXkjwkmQE KtrR2mPCSlL8x4GaBeCiS4BTp u U1OhvqK0ISUssOHbIELgzURWb A8sphyan4xzxjfgExEvDCMnTY x3DFo6WIUcuLqoVqBzQKQ5EqL 2 AIB9wIUxbG9hdBqogdxmsB5rG yc+MOg0u9acmCZwVF7oeGY0IL 44XG60cSRap2A5tIV5Z3HqXDO p dcnharaauIP8HJJoMKVtaY75G r5jrBhpQk0nGGVoTCA3DRRneW KnH8GvsM1gEoGmDNJuJCPzF4K l nULrDLkjV469YZxmJpH4POOnj mJuG6CeIBQarLouMgQ8g3Y5Zs 6XMT33QB15JM34fOMwm4Z4jZV 9 V1KjHAExdogzihnxpBP8ACPvU HTuwS04Jm8dxWqsVa3hWIPhBM W0STLblWIbI4DrvF1oImUyAVU w EDEpN6VryHLsMUptP370HGxhM vL5PTUntiHvD5FdTEWcoIkwGa S6u4C4Hk8TBy99TO02QT87sGU g j6X1qYD3B6CnLHTpraymkwdyc FF8CQPpGJCkkY65Wt7vnHksDd 0sUTWhXLJ7FSKfzESdY3BcuO6 y JlAcUSWaQSRbM0ZrxZIiHDytH 131IGezUjI5CBEpbqHlP2IqUZ SjdWoeSzV8w7X0Tn4HCXmcgjv 8 L7TqZcdsjUM+RA68CUXjKB06e QKqfBKdw5yvjHy4DqChABNzZK I9oFvaWKvee0HdVJFbX35qzCO w c2U6 (more content not included)... [facility] Coding Summary. CD:[id number]:[id number] Gh0bW w+PGhlYWQ+LZ6OQJCfO03cbPN gmP8SV9hVPM5VFIXRORJWND5V SE7yvRC1LFyjO7OsstHw IhvwcMCcWK64RVy9DCT0nFlsW QixtF9hwCIqC2j5VsNkDK13mH 51NLdrPQIiDwL6IvAmrihgcXR y Y2riOqKioRBiKol+PHRhYmxlI HdpZHRoPScxMDAlJyBzdHlsZT 4eGr9uNMTiVLMygBjvgEAeXaT j i8lqPRXpFQbsGO3bgQfpM4Bvx BG9NLIxz9u7Gx74zSL+PHRkIH V6gNeeOQqcd915CaRpa5heRWQ 3 aTEmNXkpKWI2O25vr2D5AEIqC MAuIJS1xCH4tQ7esHuvrdavV0 LjhZNlBxV2RUU7hYXbbS5ylDd n fdvwuY2kSbn+Y39FKH0ABGYGQ M1BCfh7A1QuVaxujJY+PC90YW WvCE55mFFneHCaa3qoaYj0XjG w WCOqSET0lCocWCugl5JkOCBbE 05voYArr4X1HOCidOmzlGTdMw OrmZT2mD9nERivmiael4hctgn n Zxttx9zufq93gM11A94wDIezR OXlLNF8SNZmZZKhxDzmli6ueW 9wIi8+GUtcj6bif1cwwMs4MuD w KKPskeFvtRamORF4b2JlVd11E 5MsvVmht3ImBbx2pv58wVYpe3 H0oBN0VTiiHDAfgF0dMItqWmL 6 WPLtJiLeyU66nZTlHDtiPc2ig SdqyGjeJH3fTBXibdcwAVIypD 1fCQEmkGBcpHlcAG2cZMTlgog m w358UgZzOJT8MKKhhXSuP1Zpo V1hGbUhOCPiRIApG1MqfKJmIA fdJ296FXiqHhF1KRXekfCsJ2N s KMSwwHntAvM3f0X9Vi8Ui4Ezs viaYAC5FIvdJCWxJoGnIsHdQd R9D7LrImf0VKNpbSsyFO8iL8I h CAChgvxpcvuplMJ2DALwJRWjo O96bCYiRRsvFn6cb0Q9u139VV MxXRMtrZ50Xf5ovUjfWBEwlCL U tB9cbknnz6ghmgijNjJzBVLkA Cv3OGv0QXKhpZxiFhAzGOR2Dm W4QQQ9bPYahP4zwYfqqccaaL2 w Oyc+H50ewD2mHBW6WLQ4yfkiP ULsxoXfBW45OM50M0FpKchkcL FibGU+VUCyptQqdIhnXU5vSmT j k3fko8SmPSefQ8OhOGKlDYxmG ys6KLHmGEB6jCX9lI3bVNRjLQ orp4Y5pGE8W0NkmzJxdj3ya0r s ABInPYvzT66weQCxx2Q3AVCxu NZ1QTLfiLpaLbFgiQ52Mbn+PG QypWcuz7JaIelar0hnn5qaoIo 9 KnTwUFXfekHjzUrvPPO7z1QfG g59C08qHIizECRhTIWqIZRvFZ CyoZlenc9qnP5iHi0+PGNvbCB 3 fLW6oO7pUAAjSaR4RVoqD472U cVcyERrYorgy1ujp7rwtQz4Rs OwLFEzxxPgoUzzYQA8r0PvOr6 8 S32iSYwwLVAxTXKbOCUjETIqu Xcjkh1fwQ3jPs5+KH6nq5biou 39gU37yMB+ALBhAQT8cBvlIMx w KCRtkB7kWKvkQrE0XHKyYvFrx K29wHHxGUscAc1clByttAtfHT 3xDQGdftjdw361NdOca6gkDKC w fEIuMAuzBZB6F97yv7Z6PTFgK HRrGWU9sVZ1oS6doRdxbtreiA StdAaboaIpnSvtLQcvROnnS95 6 IHRvcDsnPlBhdGllbnQgTmFtZ Jk4X6EsJma7ZVMojGkxCM9hwX NlOLovYn5mbOfqhFuwMD5cMGX p aotqd196TjKjn6wzYARrxXQwH EaiDWI9C16vr0N1TAPeMDPsWS I5zCZ4eJ1ciLsfvcwyhENhrQm g mpFkgHwcKLrjDRilF686GOOhz JaeTuQekiAvZMUnvCW6JF56BV 50tVKrw5F8qCX4N0FaKNXthxa t vxcahHC2KBJvOERiwF38Fp7by TxfRu6ePASgCGX1TICevWRoN7 PhiJ8jSwUjIIOiHQNhR8ZcrYB t PWdkX579KJhyVxI9HCDgnuRxE 3GmFWRezIrvUoZ6f9B4Yq9CI8 H8VO33QZ09fBYqx7A3gLH1S9I h JEZcarakrrjtdUW1GFKoQYKgq N54Kh6ocEveBn3uVHSaTFQ7RB JekAMmF3KrnJ8xUuXsENVxCDJ w R1DepVXtXRbbI617HZpkUqH9B QRvwmGyO6MyQMPokPyhXwB0k0 G7Xm4VBTj0UH25EO77aXFxv4Y 5 tRY5Y9NoTAIujwijorkjkRM9K TJsMJBwqI27Zc7moCtcQz5hOW YiHWA3MXUsxPYyI3LtoL1hVwX j MSRxYUWsL8KzpYPrARcyQ664P LpeSwA8XDRqdjApT9SoJFHttQ gaBsS2b0A1Uh0OYDZyFB73ISN 5 lJF3FS15YE71E2OzDxahqBEjo +PHRhYmxlIHdpZHRoPScxMD XbPuZvwUegTC3qJk6mNKDnFJX v uPxunNSbByYyy5ucBLMvDDglM W1hjYmiF1QteIW6PGDgv3o3Ad 63R37xJ9SilUA+YDFvlYN8nWN 0 eE5fScUqIiD7NBpfA722YmDup JPdJuhnn5hnl0euvOo6CaM1FM YdecIheMpsFIX7s9ZiOg32M54 s IHdpZHRoPSIxNSUiIHZhbGlnb l2mcS4jMv8+PGGbgRV1kBN6wF 8uHkVaHdL9OTlcM990WjLlsYU v Ivplu1lnj5yuqWb0PqSsJOVdc mOwrMggTJZ4g1ThCr08D7BstK lsq9GeJgb6we96lOWhf2V6sDH 9 T3PmPNLvsbtraWWhwOopVI0xM NTxrolyGSDadP1vIOAtZ8d8Dr JdTmG1WIazJ6RhihD3CXIltXS g YJnaVDQ3C38ry0P8EXHmFFYwK CJ1rHD4pZ7pjHebkksdfZKzrE ftkiVxaAdcTChcICdlT621QBW v wWpxHJOwsU9hNIAadFRfmVonH C8yITTqmqvaDhMHOs7PVicjGT 2AONfMWNr5K9PhJwg1SJTtyNz s ZZ8tqRMkOIrkZg3dfWmzoXabG D4pUJQpjezhTEJmmE8pPDGraJ XkrYlbNH0sOGVgdnhek650WuZ x BZI4BRQskJVdU3AplT5eBjEsL IGxBSRrN6XvjAHgDBhsV632VE soJaV7DEGwezFhH5VrPUTnwQk u RdV5n5R2Yb0fBz2sKK2iXWR2H R01OH78zSMai7W4uNG8K4GrVJ IjihvjyxmwoSG2IQEwMKFdtX2 7 vSKgXRelOt3tq0C3s644GCXqL HPgqY22Vz2hjQzxQDDslQIZjH 3tskisf3hjxqwzOdMwDOXuLDy 0 DPv7NFEgrJjmNpPgHCB9MiH4S TZ0pVQlwS1zgYqendgahZ0nEe c+IfVtTDWaozQ2M0AgPcg3ROT z sEbeIL8ikLRwQAibFr3fpVekf AhdJB2zRHCnasnfYEUzcB0hLA LydMItyZfaSA4aNKFuktgbe15 0 KcSpRMG2OJRfiOInN8AbtD4fB pTeTGEfRYMvG7AqoQAiKCtjL8 92FTptZiV7IREoxsEgD9SrIFW s vOanBfB1l1H3Qx2HDSwsRP48E D55zCCjy9P6tVB9L5XaCJHvvz lmdvbhmII4RYPqKKEamA40jAL k RAlpQr7eg0P3z420LUEdPTIju U95Bo2tiZklDLIywVGPdR8vqe nvx7eueuqkWcAkHROgKKc4CXh 0 YKXmrBwcFaBmJGB7QiZ9ZHV1c SCnlF1ohRkomapjxP1vOtq+T3 U8mTQ8oSUevQiewWU+SS72il8 8 A6UaYaclRzv8OAEaYXT4pUP9f D6tYIYgZTyil4C8pPW5Z5Qqzj Axfl6dl3plJRRtEWykU71paZD w v5K9WHFgrAE3MSHcpPkcRqVuo G93Oyc+YQVpkQxyq7MeXiqmk5 cdk7ebkXx2VlZvTIExhfXkcJh u GGR8r1WaUm91X26tHAduYPBoU AOcQMFoARBfjGarjc7xiC7hDy 8+LIYvkDG5xON9jV4jZmKbCjN 2 ORgzA890WbEcqHHoKwqan4scc 3triOo6LpQjTURtvcRxiLglGH S6a5StIg08B5OtyPdhg9VsYkj 0 qj39kXIgr0M8pHR0P3XnJSRcg zdtvLChwZclAB4lRQKftvxjFA FxkO7sNAJnE4r5HyRnIxO9HRo u F3UvanY4IYFatXRiHIGzyMYPw K8xlybdp9qbvrshZgCqPDWwUI q6OQc6KNCodEwtPnWiJUH8SyG 2 RTG2hKBhtO4hpHkzhfzzuK3lD yc+YAt9t9zabJAkUN3wgVB6MH 07WS88kEPhc4E5rJU2U4MpKTO p arflicuwuWQ8YQHqTGSnjM82K w2qrSqpCk3uHUSsCRL4CBCihG CyA6HosG0lNxMfHZNvKGLtL7M l vAXfBQszU848KEncYzO4VQGzf hVkE3XoDLUiqKmeTpH4b8Q7Ab 1ORR93UF43SL72bIDak1J0kHW 9 E4KaAZWzccecgehycUJ0KYAzB IBklE10Pf5ueZksUt4qMGOcDX P5SPDosFHdZ3IciA5kKyEdLNY w IOGnX0KyzBIdFQnhW824YWfaU bN1PDElcpVfI0UtJVEvpAhsZh B5r4V5Eo2VPl36BK84WM28tEW g f9V3wNQ0D5CeZSDwymacqqsjk SR3HJRxMSMvjQ19Ai8ulSwwXk 7aEOIxNSR0WFMreXPyX6TryV8 y KxLmAPTtOTOgN6NrlBEfCJtlG 649QFlvDnA7YTFzlxJsK5JyEK ZhvSsyVfG6i7Z1Cn3JIGzfdsn 8 Q1QaUfafhFS+ZO08ZSUiYL43c GIpuHWxt4ofuZv7AmBjNVHdVE W4xYtuZPius4EqSQVmR25rjOG w c2U6 (more content not included)... [facility] Coding Summary. CD:[id number] Gh0bW w+PGhlYWQ+BO2WUFKhD48ifAY npT5FY0tOCK8POHANQMVSOP8U UB8axDX1KWltG1FsygMu CxvsdXElGE91RTw2DYH4mKvsQ XephG5hmXGcK9k3EmSmFR87fR 75CBsnEEUhOuG8OaEmtbqxuZP y B4jyLgFvkIBeMes+PHRhYmxlI HdpZHRoPScxMDAlJyBzdHlsZT 7rYh2vDGVfEHLxfQbawTYrMmT j n0sjKARnTCdgBN5ylGvnK0Jfb ON6DETxs0j5Yo73qVU+PHRkIH E3oUmuPZopf927WzCjk3ghYWD 3 hTUbGReqOAZ6J93cf5T3MKEzK KXqGFL6yXG8jT4evRdxtbclK2 HpmHCoZpG7FQY7kPTrzP4wbQm n qhjkpM4oHka+H59WJY5VDWPCS F0SXip1U1ZjTxcafFR+PC90YW AkRZ45eYWqeVHcx2ctrMu4YxN w MHHmGSG8wWqkOGqhp8CtTZUaI 00hpOXkj5N4IXYfkHastOSiFk IwbWE7lC1wIMkhlbrdu6jvcot n Mfdmq5rydq98vB57G03tASyvY PIcKSW6SNVyBCVshUpmja1cyW 9wIi8+ZHorx8nmp5hmkXq1BrQ w UKVtgcEnlIdcLZN4x0OcYl96P 8DbyIior2WyZwn3jk88pPPkr8 S9wUV7GOgzXXRdkE8zFUpiKgL 6 JFHoGzOmeR65hSOtKGdxIs8ig MmeyQmbDA8aGDVdlczwFRLwqO 1zESQsjPZbpPnoEX5cMQIueym m l375RnZuXOS9PKNgmCGvF1Hkf O5nJyPrVJMgOAHuN8VwmRYvLO vpL560EGxwFrG4DVZbtrGtA9L s ABSgrTutCmY4r4E5Yt6Nx9Dva pjhGVP0OIpmKTShSqWhUfXgMu P0H7QhGbi7BLNpgCssNG4fS1L h JFLmdcpvhcwrnIZ8XQOyUEUbg K75zFZgOAofSq7er8K1t345AS UaHEQycU42Yh6pnUslAUCehQX U oK2zzglup2ewwaozXhZvJZYqG Me8UTx1DWCwyKqqEtToNUQ7Mi G4QWD4rTAepK4gfKhbefcmyU5 w Oyc+Y63vdA6fFDA8SXM0zozwV ULnbdStZY50HF16H2JuBigbiK FibGU+QORusfQygVovBX6uRxQ j j2lek6CgPQisF3OzEOLfRJaeI vy0HZJeJOK5eON2iA6dLDEdMK gyi3F5oAA0J4TsfaHcei1wk1f s TBJtURhaE61hwLKrh2B9FSMjq NF1EXHkyKrdBgGkhU25Gxy+PG JylAyjk9WfJtgyj3lyq7hrlLs 9 ItJfWMWqmrNaqSwnXRQ3i6DmK u94F64fKCsuOJGhPBUnXZGwYY JofPelfr7dyI6rSq1+PGNvbCB 3 eIN7nG3yLWWcImW2OVfnP632K eCbwRCbUnxov8qlp9okeUl7Kb NfGCFdsiOwdQgeOSW6g9AyNa7 8 A76cIJwdXRGoAIHhWDDtGXVeh Vsypv2exH0kXl4+WE8bu2kzuh 79nA52wPV+PPOyRVB0oOhlXZq w NTFvcC6mQVguBjH5EADgWaKle U63xHSdSGupIe7dkJihhGcpYX 5aEQKhwnmmj235HsNap8dlOCL w vOWhPSnbLLW7X10kb1G9BXKoE BRmKYL4dHX2cZ4loIcrcjrxpC NoeXmquqSvwImwFEnkTWweG86 6 IHRvcDsnPlBhdGllbnQgTmFtZ Yf9S5QtGhw2ELYcwEoiVT6kyH IvKVanGa1bvXbelNfnEC9jCBX p ppnvj009HrImu0auDJZrzVZnA KcyUQY6Z99xq2R6BZZyYAPeOR E1hJE4pF0bpEbddpyobEZruHq g zpHcbEpvLSdoHSmoG978KKRoo MwdFmLbtcMqISYmkEI2BG48WX 99oJYis9N6mNG2G7NnQADpbyg t pimucUN8GQCwARMvvY91Gg6am DkmUb8fPBFfATO0DGTizCFyH5 AbxI8sHwTrQZYaFZByR5IqoMQ t ERabB856EZlkJaM3RLXymcXwA 6QaWTOuiGrhPxP8i6A4Wq4ME8 U1FI60XS23wUIts9U2gYD9Q1L h SCOkkvjvuukpqJR6BXCiQXKjb Q68Kx8xpLkgXb2pXMDnUMM1WR KmwCQbR8KxkO2zBqBbCEPhBEH w Y8OqmEQsFXezV282AOhvGdP9R OOgwqAuN1KmNMCcjNdcIkS1b4 D0Kl1AWEw9FA64RY62bBIug5B 5 fUE1A4SwMUSijfifspnmhML6Y TIkUMPrvU40Qj3glJfvMg5bAR MvKRX0DTQrbYVlA4HghX7jMhU j TZDyAAWdD6AqcROkWNahX804L JxfIwU4ZZIohwGkA1YxDXSajK loHgZ1w4E2Tg7LWLQwVT49LQT 5 gWV0YN73CJ03D7BrQdsapTTrn +PHRhYmxlIHdpZHRoPScxMD EcHoRicHejDM9iAw6yAEYjMEV v hBpgaWHeIoFcp6kzTFEiLVaqI S4ouHfpO3UseTD3QMXdd1s7If 00I10oN9DovXQ+WMAynQF2aMA 0 tJ6kIvXeIgD5OKsaF241UdSfc TSxMogrq2ooo7urmTw9OtQ6WA CuooKpxQazIVE3u9EiTn32D38 s IHdpZHRoPSIxNSUiIHZhbGlnb q5fbA5wSh5+EDKhuRA4nJS9rW 4kQbLjMbN3KHgaG142OiYicBG v Grwpn1hmx6gnnHi4VsIwYZWpq eZpkZhdERZ9i0PwIv55G6CfyT zdt9LtCpf4ae05gJMbj1W1bVI 9 U9HbXNYcjksduNYapHppHF6bZ VCpmpyyTPGfxG9pIGRrN5j6Ps TlNkL2OPpkY6YwelQ8GXQylVJ g GTmcOFZ2Y43jx8K9EQWsSTGfL CD5wFH8sX1jeOuxjojzlKIohP jynqUpnJegVGofDEqqU127FRY v uLntVRKllZ7yJDKxpYIpnXemI M1mATWdnsatKiCQMj9NWvrlOO 4ECUhGLLv9H8BiJnx2IYJsyDc s ZW6zhJHnYJpiOd0qyOboyVqrB Q1hLJJaxiceEUJvsN8aWAWxjA YlwJxmOV7bLYZdfodgd417InM x BEP5OFOawXOeZ8MhuN2pPnHbH GEmWQIyS4LfaJKzVNlpE408OW seEaM2BHHazzZgR4XdTUYwpUm u NaP8y8C4Tk4dYc9iFT2jQXZ3F D30WP00mXAnk8Y8zEO9Y1ErKK JgzgyrqozpgQA8FAAkXLYxoG9 7 mXYcGOkmEr0zy3P2x537LQQaV NMpxM23Jd7miJunTDMnpCXKvV 7lvikmn8hxxfozHxVqSZAlMJv 0 HZa5OUQddCyhApQmPIM6RaB6H IG3vSLpvH9laTmkxtfgpN2aRn c+OqTqLWSiwkR1A0MdFkk7ERD z vAypWF1aeVFuTMxePq3szBrjk XbzAU5xTAPdpjveFKGhbB1tZH DwpVNdpZmlNP7lNYOwipyhv01 0 IlLdZNF5ZAEbbEIfC0HhoE7vF oYlOEXeCDDaP8UjhTXyQPweC6 29WAioNuP8MJIwpcHfK8HwLCN s bRpxTfA9d1I5Ne3UXEtvOK67L G04yQMdo7R3tNV2D9PyENNihw nmaaemkKG3KIAaEZJbpW55kIT k KKrgCo8dx6H8h588LAOlJFEyz U44Xd3yySyfMCLixAMJvK5jfh tmr7cntcfuSsNuXMKdOVw4HDs 0 INBgeLwyPdJdXSH6EeL6UVX8z RUtgA9xtQuvwzaieR4sYdi+T3 J5jJV0dKZqxQrgkNU+QR72lx0 8 J4FeNyarZwh6MKSrPRT1lPA8v Q7dMGOwWUbxm6W5rWK0S6Oxee Nhgg0xu1zkHPUcKMbhJ62ihPK w m4F9UKSwaHQ8HGZkwGhwRbHor G93Oyc+GKVagDngm3EzGejgi3 wyo3qybNz9EhFqANRhfpOkkOm u DVE8h9AiRl65T17gMNqhYHZeI SGyJGPcGZFrkTgkpd3oxY1cXo 8+IMNafEV0mVN2nK8gSoJiTeY 2 NBvhB994UmQssWJuUpahw4hfu 6udaKf7ZlYdFCFzrzTylWrkZM F1w6EoOv50P4ObhMxya8IzHwi 0 ik44vUOzn7J3qWZ7Y4GzXYJpo jqejOAsjDjvKH5jCVAdwcbaFP TkkQ6zPRYnX6h6PgYlLlP1DRm u G8MwmfV3RKIheOXwCWDseZBXc V1sreayp0lxdstgZmSoGLFaXG t6IFg4BPOpqOmiCiOtMKY8UkW 2 JGU4sLOydJ6pgYnjfbzbdE8fQ yc+ERs9v4iglQIhFF7riVC0TX 08MQ00jIUom0R7eDJ4J1EdPZU p qwrvxpehoSV7IUNiVMNtcE07W j5sxBimNi8gSNTpRLC1MACnfZ OgG4MwnV0iOfLzRDDpXMCxL2N l dFHtGIsjQ250QUadZeW4QKRyd fPoS6QgABYfmVpwRsT6u8H7Bg 7DVB27IY02JO96gQBzj8C7bRK 9 M0WjHCBqudshdajagUT0ZAYzT IKfmQ45Sb4chFqrVu9yBZBcTG N5DUZnuGYpV0JvwH4nSaNbIME w WRLoU0OvrDJwWGztL942LVpgL nO2XRUqqmOjX4ViNASkvYzgVu K3e6M8Mv8PAd42IA89RQ82jQD g v4P8sCC4S8KvETYpusuadltmt HL9IWHgOFNiaK02Lw9igNcoCv 8cVXCpZKJ6TRZhoHWvS8LenN3 y NbSrURYqZPAvZ4UncWSvDGbsT 241LMrrRwY2MTRmudMvN7LoRK IxzAdbRrK2z7Q8Jy3XUMpqbpb 8 Z2BkGkwlkHY+DO34BBZbGM75v RYlpKJdn5rrvYb4CnGeYHJcAS S7wGkbKXfes6WpJCHdH97cpPR w c2U6 (more content not included)... [facility] Physician Orderon 12-30-2022 Physician Order [id number]#1.00CD:1 27 [facility] Procedure - Woundon 12-30-19 Procedure - Wound [id number]#1.00CD:1 27 [facility] Consent for Treatmenton 12-02 Consent for Treatment [id number]#1.00CD:12 7 [facility] Multi-Wound Charton 12-27-19 Multi-Wound Chart [id number]#1.00CD:1 27 [facility] Nursing Note - Woundon 12-27 Nursing Note - Wound [id number]#2.00CD:1 27 [facility] Consent for Treatmenton 12-02 Consent for Treatment [id number]#1.00CD:12 7 [facility] Multi-Wound Charton 12-24-19 Multi-Wound Chart [id number]#1.00CD:1 27 [facility] Nursing Note - Woundon 12-24 Nursing Note - Wound [id number]#1.00CD:1 27 [facility] Physician Orderon 12-24-2022 Physician Order [id number]#1.00CD:1 27 [facility] Procedure - Woundon 12-24-19 Procedure - Wound [id number]#1.00CD:1 27 [facility] Coding Summary.on 12-20-2022 Coding Summary. CD:[id number]:[id number] Gh0bW w+PGhlYWQ+VA5JBICrB57cvWU jgV1HZ0aNES0HOQZFXSZPAX2O XG1reEN8AZueQ0CekjRi CadydJYuWP90ZEe9TPN1dNbpJ ImluZ2uzQPgN5u2KdVeJQ03cE 61JFnxTDYmBbX9KhYdkngkrFK y N7rkBsEjxRIhJdx+PHRhYmxlI HdpZHRoPScxMDAlJyBzdHlsZT 4gCr1oUOOlDVLsoQhjuMBrJgW j r1eqITLpCOlpTO6jkVulF6Ygw QX9VLVay5j1Ql08dYJ+PHRkIH X5nYwfCRfau422HmMei2xhUTU 3 rJOiVMxjSDO7B92ck9Y7CZPcF MIbCIU6hUA9bM1fyXuunrwgK1 MdyLDnMgX5OXR3eMIjhX5ffPl n ngzosJ8wVsc+N13OLQ2ZIPLQZ D0XYty0P2WoOqetgRX+PC90YW OoGQ24bKDkvHSxo8yrpXx8PfQ w MAOoRTV6dZmyZLxru7YwVMWsM 63qgKIsb6F1QKXklRazoDIqMi EowZI0wY9dFYjgekcqf9jloub n Lfuol7vyfb07uF39V43nTQrzL OFtWON7XFSfZFNldWofyq5snN 9wIi8+HTyux8gff9cfbSe3DjW w RDHkhnUciFblCZU2k4QfTn97Q 2OfhTumf7MjViv0ct62vUYny4 K4sLB9KKjtGPInuN6pCRcrOgI 6 TCKmHyHgsL85bGOvEQsvXm1bk SlptUtpJA0wLUZvuaulUFBtyG 1oYUFfqBOzgZjuPV1iRJLprla m c858KuRhWQB5ASWabRWjV1Ndw B3fUpGbCRIcCUIrJ1JbtEGxAQ qpZ158BCtlBwA1OJEzsrXlQ3E s NUPwjTsyHyF0o1B4Rt8Rj1Nbv vbzCTF6BWgcCTEvLbUlNtDpCe U0G3BvKqf3SDEloAnvIE9aS0N h EHJdwsfuwsegaXN9OGAtYCMzx J38jPAzSOarFl4km6T7r858MV OkDJXpjP63Ln4vxXmpKQChrST U uT8zerids8hliqwgHeZpLXCcA Ny4PNi3RWYfcUejAbFdDUQ2Qr F9XNW9zTWhyW5ipWycxhdwlU5 w Oyc+X74ytL2dMMH4ISR3abzmM GQopeGxTX96JF25P2PzDbpvtM FibGU+LUMrviMftHcuGU1gXaL j w7riv1MvUYfcW4ZqAKPcPCqwI wr6ZMNrVQM7jRQ4sF2kRAUmRC bwp2G0kRM2W6PdsrSmhq5te6j s TNDyPSzjN51jlQMhf4W8QYHao LF3XFVvcNfuGyIaaD42Uzq+PG NkvDdoq7HvBhoye1chg4txdKk 9 NmPrKVIlmlXgaIkuOVQ6b3FoQ z53Q84lFPdeQDJvOGFfNFWzNE JuaPbsuo9qzY7uUl9+PGNvbCB 3 yRP9pS3uXRQvPaD5BZpsT078J rPcoGQoSjwbn8cav8czwFo0Jk GlESAiezKqsBwaNKO6i1DxTp1 8 J21rVNkdNIYzRVLjFEUhFQWmd Bxnwx6atS7sPn8+VD8yt6qagb 55aJ68nHV+CLVgGDB2jYafEVm w LLBrbA8wULgkMeW8XWLmZdOty U93tGMmQVdiMy9fpKtfsSnpTA 6wPEOkyutml294CbDrk0fxGIT w hVNbVJpzSAA9F75kw9J1YKPnU HLiVED2gND5wQ9egUpdszqawN MwlFfebiAiiFdgIZqyOGqdV07 6 IHRvcDsnPlBhdGllbnQgTmFtZ Qy2Y7TmXfn1EFPliNyxUZ5wzO TaWJywOt1eaChkfEdbIA6wPHO p edtmg400LqArj4ffWYUvqWTfJ EwtGTX6Q62ux7F7PNSiXJToEQ B9cDN6bP3yeZecjqcncWGjaKg g ajPkeSaoIHrtWYuuB375QJJlr EnvHnSwhqGsLXYiqPC9VT32KJ 34fUFqv9Y8sKK0S0IcVXDgzot t jsmyhNT4CPQdPQYdwF75Zy9zl FteKb9aMPYqOBN4UCWtjEHdX2 MuzF7bPhCjYIMaXGErH4QxbBH t UJyhN814DZpyGnN4WBFgjlBtV 0VoQHHpxDghAvP4z8W7Hy0JU4 O5AV66TN83hELut7P9rLF1T6M h XJOifzlcoqkizRK4NUUsORIhf Y73So4esFnbFe7fTIEnHEI5JE GblAEvA7TyiQ8aFbIjCUBtWPG w B6WdrEHiBEqiW617WXsoFcO2I SXuyiEnE7GnJIGhgHblKiB7l8 V6Qc8YMTc9YJ57SU13qHBdr7C 5 qNW0L5GhGZWjzmtgeeghgAW0K ZKpWZCgpO23Xv3ysPxqSw8fTH ZbLRU4MTKjnDWbD5UknA3uWaZ j WSSwBCVgV5QriRGgMKugW769R ZqfKmJ4TLPhdaBkX9BtNNVolV ukWgZ5t0H1Gn4VJRUmHG38JBS 5 oKM3WF37XK30H5RfSjnegVKiu +PHRhYmxlIHdpZHRoPScxMD GlAzFdzCjeIQ9cBf6zRLIlFKD v aIcmaICoAgNat1glOZRoWOgzU J9okScgZ0InpSN0PGFpy7a8Uj 23Y85sE0FfzBF+JDKdjOR6mXQ 0 eB8gBrJiUbA4JGhmP996QyHlc HDfSkiyz0cqc2ponSk5SbQ0KN EydvGwtCqcBQB8z8AnIe42L19 s IHdpZHRoPSIxNSUiIHZhbGlnb x5btE8kDk0+LNPdsGQ9rUX4iZ 3kJjGaOgM5YMzjY138IfJxuOC v Tlwah8kms1tsiBp7FsNjTRJje wFqsZcqIEL8l6VvUq34R6QfuF cle8UkHrg4wl16yKNdv7C3jCR 9 V7XiBVLamgdriKHqzZygHH6jG PJkgbipHNRgpI1jAXWwD4p8Eo JtKwT9MVbbF5XatgT4THHufEF g GBuwHGN3R29qe0R0XYRrLIIfQ EW1jER2mK0ejDuuzuzjzUKxrU ovbkJfvAxwKKmlXVljD111PGH v cRgsSVEtxH8mGIZhwMUxcNnjH E6bJZXhjmxlDqOHOy9WVqxiPX 1CMHzYRSf2Q7MpKrc0WJCveNt s RQ1ytXDnVFojRf6kqZptlSevT Z7jDGArykwlZUHrpG8fIQOcpQ CatRegHG7mFOOpsqtid798WqB x QNB4RGHhnUXoK4FkbO7dJoGvG DRuVCYyN1ComFLgQGdjC384BT ohIaV2IWJrflRhL1OcLZGsiHk u GnW0h8R6Ct0gAc1vEL9aMWI2Y M01SN47cNRqf5E7bMA5Y7SaZQ EvwediaajwoWY5LRLtSQYokF8 7 vSUbVBdhHi2lv0T0p385QTPyA XHoyS73Lp7pfWbtZOUktKWNnF 3drrkjq5gkhwveMzNgRZSdCKd 0 FOx5DVPkhBnrZdLvSJB5UtR3U MY3nCJlwX0gzXxhftvvvD1tLq c+DqTkLEVniiS1R3MzAww3BAH z eBulUB9geHCgQLbuBi2epGqqe JdlVZ9xTRMrberpIPNwbM0dON MgbVAclGkoKL3jKXTswijwn09 0 XfObYQS1YGTvkAIiJ1DylB5zH mFkHLIrLRSmC8BjfLRtCSrmB2 35AArkNnG8WEHugjUrG2SyWIW s xVjdLzF8y5L4Ew2NIKowOU73X V60fQHaw4Y6gHJ7J2JpJUTvut wzdgaymTZ1QOGwDKKuqB53zXG k KShzOu6jm7I8g148NUBgBVXgd U48Vf2fsKduWAAguRCKvI4ala xgg3golivrWxDkXENzFIm4XXb 0 RHZagNtrDqDnNUR4YcD3USP6a UDxrG5nzWbmkjawfE2vFnb+T3 B3vFY4gPMthNzjvHR+GS61lp2 8 B5CgLvscEsw4YWHpBJZ2xNB5u R5eVWKtJYmux3Q0tTL8Q0Cijk Xzcn4na3olMMVmEPfxB32cgKV w y8E0AEMuqFM1CPQmzWsaAoGpl G93Oyc+GPPwlKaww4TpQsofd6 pdi6diiYa9CtPrGBHpjzCseAb u RPQ7v6CsQs69O73hUFsfPFHbP JOpHGUmFOOypVkcjp3dlM5tLl 8+EDKigLN2jMN7dL2cItWoHoZ 2 CUqtK086WdWppDPoWfivi4iby 1vteAf7ZrYjCHBabiDygSkaHC U1c2MbUv35M3FyfEcoe5TmVvd 0 gz82uQOqu0D0gKH9J5EwWJYhb osqpWIyuThtIU3cYGOikxaiQM AxnS8iTBFzW1b9CpQhZaZ4AUn u V7GtqqL6ZSZsvDDqGHHslOCEf E2sqznjh2lngvbnVyTqBUNgBE w9ASa1OJQolDxiTwOpHKO8WjP 2 MJP4uOXyzB1tsVqrsqlxnY2lF yc+FDv6m6shkEIlBZ2rdXZ4AN 82MG11uQEft6B3nEZ1J2AkDNI p kijholqexGI9NUPcHTAmmV43W d5zkGgdGr9rLOVkSHJ1HGHkrV QwA6AeoS1gSwYlBPZyWPGuO1Y l cTHrPUauG201CBupWwK9AICsl uDnN9SeCLFdrYpaXsM7m0V3Kf 5RNV07LO86WG40nMSex0H6lCF 9 T1BhOKKwequgpbbpdHN2IORxQ IZqaK61Rt1pnJnbKp1pFYXqLP Y0BLZsnQPyG0WewN4nSvAgQJA w XARhS3AtwJTpIIyxJ152QYwdU nE9KXKjehXxE8RiTDZieOvjUs Z1r0I0Uh8WHv49CY92CJ65sYI g n5L6dLY7E8BgXFXugkjqcupye TU1XUCqNPRczO78Gb7zbElxMa 7sHKFuJMD0BLUinMRkR6XgqE5 y YyBcBGSaUEVdU5MxxJJtLLzmB 699UMfjGyI4PFCrrlPmP3JkFW DsdYacIcC8j3C0Wg2EHEmlhdx 8 G5ShUtvncZX+LD66DEPbPX12i YHbzVEsg8iexKx0YzQwAQUhGV M5zLahQOubf3ChNHKcQ16fbST w c2U6 (more content not included)... [facility] Consent for Treatmenton 12-01 Consent for Treatment [id number]#1.00CD:12 7 [facility] Multi-Wound Charton 12-17-19 Multi-Wound Chart [id number]#1.00CD:1 27 [facility] Nursing Assessment - Woundon 12-17-2022 Nursing Assessment - Wound [id number]#1.00CD:1 27 [facility] Nursing Note - Woundon 12-17 Nursing Note - Wound [id number]#1.00CD:1 27 [facility] Physician Orderon 12-17-2022 Physician Order [id number]#1.00CD:1 27 [facility] Procedure - Woundon 12-17-19 Procedure - Wound [id number]#1.00CD:1 27 [facility] Progress Note - Woundon 12-01 Progress Note - Wound [id number]#1.00CD:1 27 [facility] Coding Summary.on 12-12-2022 Coding Summary. CD:[id number]:[id number] Gh0bW w+PGhlYWQ+US9KNPIuP21mvBM zoD2FY3qNEU1CSMZPNYSKOC8U QW0bnRJ7ICyiP3RxghWc WkmsnMSeZY29BUh7UIL0fPqwJ WqsdL1otQWpA3g5CsDpXB43lJ 95PRdkMLMoKlU2FmMkvelrdXK y S6xqCjJmmJAyQth+PHRhYmxlI HdpZHRoPScxMDAlJyBzdHlsZT 2tLl2oCTGgXWOoiBgtcMRpGdC j l5wuGIEsOBwzHB7qqXahM2Zsp WP0SXOno4h6Fu37aRH+PHRkIH B5bQnlXLntg097LuAat8wsXHN 3 bNQlYVarCSQ8A21xk6S9TZEdG DVaOII2aDC7yI2kxFtfqrplH8 NigMSfKiD9XHI7eRYueU6ghYb n xuntsQ1jZhf+Q84XQW7YZEQMC Q7SYnq2H9OpExmykYC+PC90YW YlLV88fPIbiQUcg2cqzTi6UxN w TWWwWIL4jKhmRHgly7FhSBPpD 40nwNOhr9U6KGGcvVybrEUrRv TnfAZ6yM7bFYtsmlspc3uluxw n Cbgkd3sswx60yI29S27wIXbaY OBsDOM1VWEbXLEskRkvow5rbC 9wIi8+VGizb9pqr9niqLk0ZyD w CDXzcnIygAwlSLW2u7QhPr37B 4OrwLagm2CaVuq5ft48cBLqa7 V3wPF8QPloVKLpnJ6aACgyGfY 6 UDVwWgWshS10pJAqGInwSl6bt FtcaDftDN9iWMVwnexqFFPjaR 6vBQNrhJDtzVrzIO7dXVBztev m z243JiLjXVT7HCMxlCDkG9Lou Z4cXaYvPNKkJQZeJ6YhuROkTH dxV511TPyxOvB5BIJnsjCsF3Q s XMBgiVqtAdA7q4C3Xb9Qs2Oro ejbLZI9UMtfBEMlTkVtWnKcJz J4O1SaLrm3KKPdsJeuXJ8rY5F h KTPqiofwfachdGC0LVTyOVSem G94kTNpJOgjDk5lt3M1n186FS HtAINpwA90Ni4dyIwaDDIrbBN U lS9xclyug4pxrtcoBqWaLVXeH Rw1BLx3WPMdtPviKpVzNYO6Po F7UWZ8tQUawY5pbNqjiurvcQ0 w Oyc+Q07vzD6bPVU9XIM4zeobF ZSghjZkQR50BL76Y9XtPaqwbX FibGU+ILVxneZdkVgzYV4cHgK j u0wur0LwBHtaA7LrHHEcQTikQ at3OMBtLKI7iSA3dL4gECXqDU eyq0S0zGI0U9ZqyrCqjb1en9f s YEKmRKmmS63yaRRgb1Q6CLXof ZP8ODXmcKnzVjGnbP43Iys+PG IgyWush8BlBcbbf9fdj6zxdEy 9 RoXrQODupcFcxHlpQOQ9q1BqU o52G92tWToiBDAvWYMqTGRtIX OsnUzwsb9mwV2aLd3+PGNvbCB 3 ySU5qH9bVRHvFoY1JAzsA435P fKdzLPfGnicx2qqk1wouNk6Vc VwJKEsmfIurAtyZAX4v2EbSs6 8 H41iBYsbWSPeADQvIBSjXPKnl Rpbck3trR6mWj9+FC0mk0wuva 58gZ58qHR+DYEkKWN9sWrvWOp w OGHarQ0gRDkcHxV8EDIqRgFiq E31tZThLBkvAe0lsDqkpHovGI 2vDIIgwbnoa274ZyPvi1yiGHH w rAZrEOgcGIG9D96if3X2ZZGiT SBnNDF1hHG0kX4zxGvarrunvS JuzNpylaWnkCpoGYdtCMykU27 6 IHRvcDsnPlBhdGllbnQgTmFtZ Ac5Z5LpCqb6ZJFyzGaiBJ8peC MnJWjtNs2cpOigbHjmEL5jKVO p nwaac036OsUli5bbSKRqyZYoS VksLKH5M35ha5J6HJWeCIRePT M1dHB4fV2nuGmaqztujUHnvLw g bgKeyHgbOPlrMLqrL111BYJoh OafMeJlmmJxAFIuaJG5VM69QZ 41oHZib3V0lAE9M1UtZDKlhwk t ewwocXX8DLEcCLVkbA28Yp7fq SsuSa4bOCTsOQH8ZHMriBWfA8 CenW4hWqCcSWTzICOsI9QsiPL t HFybX723MIzgIbX5RQHnnxCwG 6HuQNBqvDdoJaX0l7K3Ag2HE7 W2PT31SX49mOOph4U5mEG4F6W h PLDgsyfqwkrqiLS8JHDiDHZjm I51Ly7eoSowMp7dFZWaTEE1WP GepUVdK8CdcG7hPcYgRBQwTSF w A9XcgQYiJSwvF540EWeoMkJ5R ZVnmrUtM3OyEXSkbVzqYgT5d1 S1Lv8ATHg3UJ08NM24wTZkj9P 5 dBU2N6QxHBDafscpkqpryUS1G HOzWBCvmH99Vr6kaMceIp2sEG SbYBW4ZNKkbTMmP9YbfV5xNtY j RGCnCNKqP7DfiWGqDFqqR570X QpcCnA8FHXtwaQxY3QrXQOxqD csDfX5y3D4Ti1GFJEzJT53LAV 5 gZF0YR15OZ15V6RmEvsibWGwe +PHRhYmxlIHdpZHRoPScxMD RaYkBgzBqbZM5yCa2mAFHtFOV v gJfkcZMhNaJec3yiIYWdXWbgS C6yoFbnZ0XzsXS2TMIjt9i9Hv 63F88dL9BwiBA+OPXtkLK8oHL 0 vY2sTaGjJtJ9JCygH166GdEyc ZBwZurfm0ekb6gwrJl9MdW5PF EzswPfrHctBVN2o3ZtXt04Y80 s IHdpZHRoPSIxNSUiIHZhbGlnb n4hcN2aEl6+UXUuuXR0vES9rK 9xFqPpSkJ9FQsmL147YwIjjEH v Famsg6wub1aetUe5AuZhYCGom eJtyIlbMXN6r6YpTf07N1OsuL lre9DpIuc6jl66fIBqz8F8dEH 9 H1OrAVAtkarysEIowYtrWQ1dF HUfkijsXUKkgX0sJHEcE0f5Lo XrKjH7ENfwZ4AiymU4RBTzoEC g QVexQRB7X68jg6G8DRHfTWNdS XS8eDW2fL3lmFlsrdwanMVavM hjgsEtyQmdCQxdMXkoF155FLY v yWqmNBElgS3yDDKcvEAokQreQ F9zYSEaljfrNtJQJj8ZXvrbAY 7BBUkVOGx6L6MmPcv3OOIivDs s NL7thIGgCEinUi1khDzifDuvO C0aLRMlbfxiRBFktR1qGZUuxF MiqQmnHR8qFDZhftzmg929QoS x SNY4DPAecEWdH4YyvN0uWsAoA JFmKMHdH4SfgVNmABonL843DF dvEoX6GKNndpEnE1KcCTMrtNm u FeO0e8Z9Ic6sYo6nAD1yAKE3C D76LM34aOPwb1H0hEN3F9CpIE WcerkohexetGC4ENGpUEYvwD0 7 xAObOWbaQu3pt7C8s007SWFeX YJqyZ83Fu1olGpeMTNckDTDkH 8grvirt1fxpflxBoQkHXFtQSh 0 RPx7MPThmOovZwYyOOR5PsL8Y YN7mNMbnT0piRxhhhvajJ1vIx c+WcPkWVOkfmN5L3QsZin0BYA z uHmwBR9zeXEbRWgvLv7rxOmcn FvgXT0tWDOsckmhNOKqaH6jLM DhiKYmxHaeOA6uZVRklqbmq71 0 OuXzQRU4LABciGJpO2DrnY0nO pVvBQLvZLZtI0VfwHDdWHsjM8 69TXeaYbO4KVPnjnClN1LjWTA s sElqOpZ8m3D3Ey1IMMijHV68W C74zZRtc9W4pQV5W2UfWPIogh fhnawvbLQ9HTDgWAYvqM35wCC k PSgeQh0fb1K5y071GHWqOGPxj J60Be5wpGqvBEJnmSDZhD1qsq xzz0jzdappCwCrTVFdFIe4XNh 0 EJMkdGgdXwIbYPI7JdL3YHJ5x TDurX1gdBerwnceqV2sEtx+T3 N3dFF7mHXngOfphDU+CB48ym3 8 B6AsCnyxCeo9MGKiJJR5sSJ7a U3dMDIiNZlxt8C0hQG1O0Zsem Zdqh7us9agYJNeIUkpK14qtKE w r5X5ULCzsCG5GWPnuHacGwWaa G93Oyc+GBQdgPnew0NiQsaje4 qej6vrjVo4ViJpINXfcuZisHw u BZA2q2KqXh22W18cMWqaDMIiQ IMxGIUiJATypEpicf9zaX8jRm 8+BUHppQT2eYJ6xH2aMkTcIuI 2 PNpeX088JfPorSGwSdjge0zvb 3kazZu0AoKaLZGhgfSmeLluOF H2q3TrBn06X9KwbLzah0TvRtj 0 zt58kMJch3B4lOM5U3NpSTOqj ankaWAqaXkbRY4jEWFzkzheGS MpgB4sWLKpT4m4UjJfBzH0WAa u R3HogzP6AHUdhVAwMAZkuGEHb B0fkobqy1bymuczSeQeRDYvDB k2EWd2PDVvjNdoDjBtXDX5YeL 2 GFS8wLVqmY5yzKcsgtvclL4uB yc+ZIz5f1kjcPUaDN2vqCY3CN 26CJ28fFJow5Y5dBE3L1ZvPDO p bikvctqweFF4KOQmNTHjoO54A v6dfHaaDf6vHQWvVOE4VIHiuU GrY2JowP7iIvQuSMYzEZOkW9V l rNQdOKpcO394RDxwCmM2YGJut xVeT3KjONPpwNimJvL1c4W4Xn 6NRG18FQ01RH86qAPgv6U2yDV 9 M1AmOFMnuejtoxdqsJX3ZTJhH YZioU51Ws0uzBywTm1qGWOeEE M1ULSieUCwS2AopG4jLpYjYFY w AIHjF7WckZVbOCxmI526GTgmV yW6TNFwbnDjN0LkVPJpgIyxIa R9y3I9Mn8UMc50UT31HN61nPK g t5O5pDT4V4ZuJARehehbamnto NJ9LSAdETXhrS56Be0qpGshQs 2vYYQeXTD5JYJnpKWgD6SrvJ1 y ZpAcZBKkUKKmA9CkyGYhJAoaE 960CTifLnF0GSFopmBnK7EfOX HhzAxbWhF3n1S1Jh0IIOuzzhp 8 Q1IvNyxxiOU+SD09MWTzKE69a TKtgECzv6fnkBy6BfYlCOByON U0pEdqNZlkk4BsVSLkL93bpEL w c2U6 (more content not included)... [facility] Consent for Treatmenton 12-01 Consent for Treatment [id number]#1.00CD:12 7 [facility] Multi-Wound Charton 12-10-19 Multi-Wound Chart [id number]#1.00CD:1 27 [facility] Nursing Note - Woundon 12-10 Nursing Note - Wound [id number]#1.00CD:1 27 [facility] Physician Orderon 12-10-2022 Physician Order [id number]#1.00CD:1 27 [facility] Procedure - Woundon 12-10-19 Procedure - Wound [id number]#1.00CD:1 27 [facility] Nursing Note - Woundon 12-09 Nursing Note - Wound [id number]#2.00CD:1 27 [facility] Coding Summary.on 12-04-2022 Coding Summary. CD:[id number]:[id number] Gh0bW w+PGhlYWQ+MI7ADRMkS00iqIC pqG2UB5qFYM3OJVVDVEDFPB1F BO4zqDU8HAyfB3TogiIk UkfrrEDeUP40MTd0UBK8kHmsA IquwI8qdOVxJ4x1WvEnSG16sR 17PMogODYyRvB7KlKyhrbltVB y X2oeAaUraOAuBcc+PHRhYmxlI HdpZHRoPScxMDAlJyBzdHlsZT 8lQl0gILQtLCGukFipbLBhRyE j x1itQTTrMEzbHB2gxJviT1Pyk OA8MDThp9l8Vr06tUC+PHRkIH Y0hCuaXDigh821BhLuv6kkNGX 3 oICuNEaqAMY1W32ia8F7CSToA SGxJSR8aYS6gJ9oqMxmwhyrJ1 HftZOcAsW4WNI9uAEreI0iuOg n pdyktS1iWji+W35VVT9XYCHXH W7EVps1T3SuRlubaYG+PC90YW GhIJ41xRHeiHYcj1ahkMx5IiR w HKHcTLM4wZnxVTcba2WrFVUxT 83orMBfx4N7KOQpyDpicRSiNj XeuOZ9rG2eBCarjxsyj4rorjl n Cggio1lhvo15dG01P36eOGfbP RFfMTY1ZFUsHKNqoSddpa7pdB 9wIi8+KSzgp9tab9vpnHw0SbG w SWBtotCwaHyiVNY5a2CuSj99M 0SrdRgnj3SiXam0ks01vTKjh8 T5bWD6IOodGHIkvD7xWXpyShR 6 VOGwPeAxkG51ePTaCFzwFb6mb QigiXpaTR6kFZJzseoyUPMxoY 6uPXGjuIYyoYgrZQ0wBFUbdnk m r285AsMwGQJ5KEJoxCWhA0Quf R3nFkJdEEUsALSsS5KfwIVgCA rpO758HIjwSeP3TOBgmjCaW9X s LSJneYkxXtV2y1S8Nr8Xt2Caj upqLYN1QXzrWACdBjO6EsTzMm M3T7PuLfk3FHEcsQqhMK6fJ8K h HTKxtsbdaikxfXP3DWPrMBVfv T18dOFrASroPt8ba1O7p562TK IkWFSbzS99Mo7gnBbuYAMdkPW U lY4mjfovt6xazghgTmMiMEZbV Xv3MOh0OFAtoKydUtFvRCZ7Ew I3SOJ8pGAkjP5apXeaserzmI7 w Oyc+X17jbZ8sWZY4FQK7ztbaJ ULkxaRjSM37UN25Z6GgVngciB FibGU+AHNgfjWglHsjLN3pZrT j l5uww3HnYTefY1ZnLJIsJJueZ kw3SFCrNWM6bXF4zQ4cKEVtHF bol7G0nFA0I5PjhyUcsc1ul2z s SWGwQAlcK92dxTFia6N1BKHlf XO5AIZjrDljYgDisU28Ilv+PG IozQeam8VuRouzr3qvr3uacOd 9 InQtIHEkhbOifZcfYDM3v6YlL v61K44kSTluQMGdCQGyANOxEI XgeUbikj9kgM7kVm7+PGNvbCB 3 tFK2qR4fATDbDfR0OIhbI563Z cMtqXSkCaczc2qjs3cbhUz9Gl EbSXJucuEtmRxwVEM0y7DnUg7 8 X93yCZonZMIeDVDiDFOfMPDwc Zraes5krS7jUy8+ZL4ys3anfd 51hX35kYL+PLTpPPZ8vItqLNo w REUfcV5jVJirOeJ3VFOkSuPoe U81sFLdEQkjUy6ehArupQagCN 7rCIYlmvkri230IjNuo8liLGJ w mPXoGWwvGHF3O65pj2Y3YKMrQ NBsBFN1fCV7oG1xtWeuypunbQ TxaQmsraFkwMpjZFbdNThfO38 6 IHRvcDsnPlBhdGllbnQgTmFtZ Jj9R6FlCzc1HEOgfCftJN8asL XjAOjuMh1qiHskzZxqUX0iLSN p cewpc144WxBjz8cjTOBieDCoL JhdGKS0O00ww6Z7FIVvQBDiVQ Z0bEB7xK8jgJbzjooqlMWmlIi g emKfcElcECwxPJyoH763KOPsp DyuIbMkjzFwXIQwjZJ1OL92WL 05tEIyi0R5sPU6Q2RlRMNiaxa t atijbKZ0JYQrIEJltY48Qk1rh FipJu1dYJBzKGP4LLMdyNTyO4 KryA6yPmDxRCFtPKMuG8UuuWN t BLesJ133MGajTrA2GKIadyQnR 1KtPYElmZtaYxF4b2K4Fe4LW8 D2AM07VP85gENdg3J7jSP1D9S h GRSodnyrshyxbXY7UYBiONCtl S48Xc6ixHagBf6zGSVuREM0FZ WzjGQjK1DdpW6wHzXeGDGhSKY w Y5VbdZAbDOprE782WQuxJyZ5H EZbxbJvF1RhZTVnvYwtAsL8q9 U4Hr1CTHv9YF43BO76jVDaq5F 5 fCD2U7LhVWZxkxyseycciTF5K ARlLBYmaN17Qf1wgYmtJk5hBL JhSBP2EWTsxFAjY9IoyW1gJaU j AQQpTLIrS7EhrHIuEIwlO145J OpsAmQ5AIBnjsQuX5OrUGQzbG wfUbX7l8K0Xu4FFQTcAM63IGJ 5 kXJ9AX27CH64B1AeShoawFTmv +PHRhYmxlIHdpZHRoPScxMD YoIiIpxDpkFO4gDh8aSBOuSIR v nPafrXZdGdPep1lnWGXfFMgoD H0ijHdrE2KxkNK3ZDKkx9z4Xw 68V38eV8LjjKX+WAEclWZ2yCY 0 cW8wDlWhYeX1MGfnP172PlNjn KViIpcuj0fms3yleHx0CeE4HM RktrZarUvbZNV3c6PuWf23Y27 s IHdpZHRoPSIxNSUiIHZhbGlnb h0kdV6vDh7+CRWhdMN2wFM3dD 0nZxZdFiL7UHuxE355PdNfxEQ v Jrsph7fzm3pzbCb0RbBfBCZaa bUwfXqhWUV7t7GrEh76C9UzxW qpv0WjBsu0km18zBApa4F3cYN 9 S9GqMAMuyntukDMqsYvnEJ2cG YGfvzrvBMDovY5lEBWrK4k2Zc FlEvL8MLufY1SnfwS2IIOucHV g CDhvCNE9N20cd7W4XVMiSIAaN LN4nIA3tW3bqQtqjpbsbRQxpC yihnFkbBfdIPivINiuD315XNU v uTtcBRJwiJ7kLKUavDUwaKqeR K1rCQWezswkRaCNEq4LKtbuAH 5PZHjGTTp0B2ThArz1VCFpeGz s DE1nlTZjFFjqHz3tcHiwpGwqQ H5aUNJernajVVQpqO2yEBWmwY YpqJdlAR6vNDPfmmqui069NcG x CUQ3TZPxqQBhC9XrhO8tBeDvA PKaEAKzS8PugMIvKLihP537VZ dbPfO6VBEwdpZaW8ZdUBYihEo u CsL1l5D3Qu6xIs1aEE7wWNC0J T58RC63mVGsl6C5sZP0O9UuPT DwsiwbrqwspMX6XSPzMGLjkZ8 7 fZYkTRqaKf8od9N6b694EXXyW VZhbO55Sm9mhNhuVUYhlPZTnB 4rdwrzm8svtrmhBwWcDCRiFPl 0 PZe8ZRWniRhrPcJeFUB3ExP4Y FF4nJJttC0dnVepmtzmpX3nUh c+MgKcJWCqatO9P0VwIqm6VXQ z fHzpAT5dkPOpZZpgRo9myBxsy FofIY8gNSNefkvwXAPgjH1hNB MwjOWgfDhdVS5hOTBqiuxrq72 0 TqYgUYA0ZFMytGGqP6MblQ8aS yOaIXCoQMStT0UknFJsWRovV6 47ZItkScQ5AAZdhzFdO3JwYVC s tSrvYhA9i1R2Ra1TITpkKC14U F70pNWlm4Q2tXX9F1ZrLULqsh krnqvjxWO6VLGiTHJtcP28qJK k MGkxDv5zy1O8q419CXSsNVZkw N06Jp5hlJheCVWhrAELbI2iek abg3unjcfnDbEgEJQmSMs9SIl 0 DIDrfRbqNpJqBMM3KxM4YBC0c EZitA1rnYuiwkwrqL6uSiv+T3 C1fMX5bVIhpQyaxQW+VS86mx9 8 A0OuGansKxn1ABYzNIX7yVV5k N3lEEQaNHyzj8N1iNO1W0Dvhg Tdfj1mz8eeYVGaNAwdG39hlGS w l6N3UXKydMF9VBHzbFdfEeXsy G93Oyc+FVPsdJfir0NsOhzjc3 uwe3lzjOk2CjPuNKGjjpTssTj u YWR0j0MsHl39X52nARtsIARzO UOyANUtFHMjkUqlwn5qrA7xDo 8+SHArdLF0yDH9uW5hYrWjEwM 2 HQjhS104OvIocGHkSaebs4ypt 2kwjEg1ZgFzSHLoijLhlHjgTV O5b7CrRi58F2ApnVlvg9ChPmd 0 up70yYFfk1G2xDS0N3PnLYRtr nkjdYNugPxuKJ6qACIrfirkHU NxsK9jSSVjR7f0ZhYgRsY3ABu u L8CbwfC6SFWdzATmSAQoyCSUj F4nxirbz3xjzyfpLsKbQBXfTY t0CTi6FXQifWeyEiVoXIL8IyH 2 HNX4yAHzvV5fmRpbaevkrN0sB yc+GMx0q3omiMZfEX4qvZC3BN 41YK13yTOhr2V7dHJ1Z5AlHPN p mjdfbycfyND6LGSeYQEcyK41S g3ykYimKx6mCOCjQCD2CUQnyV ZbR1IxiA9aInScTPBhWXLpG5E l uDKpJLplW938QPuvVqF5MOKww tOvM3BeFGXooRixUnZ7a5R4We 5UWS01XP64SR19oNHnp3K0zSC 9 X4UqXSUrvrnsrgnsbAW4CRCiI DFzsN76Qa2naHtcDz5pHSAmHI Y2JISujRUmJ8CyeU6eMwIiPTR w JWGpK4FstYOyCHwsJ387JZghP xK2EGTqejKdU6MgMRBdeSqeCo C5x5M1Fm2VNu81QB83FG36yTO g y9U8bAS2D0FrWKCenxgmxewhs QV1ARToSPTnxB46Bc9ixJfrSx 3bGMBxTMZ5NXSbfAHwZ2WfeM9 y GeLzJXGiHHJjT0ZhjPJkMCieQ 466NEisSrG0AAUenqUyN7IgFD ThuGltZcJ4c0V1Ut9HVKatbjv 8 S9TpLvsjaZR+DZ41BUOdLB52w RXbsZQaa1voaRg5EjGzJBZuNH O7zTuyESwcq3HfCKJjQ85bxGC w c2U6 (more content not included)... [facility] Consent for Procedure/Surger yon 12-04-2022 Consent for Procedure/Surgery [id number]#1.00CD: 127 [facility] Consent for Procedure/Surgery [id number]#1.00CD: 127 [facility] Consent to Photographon Consent to Photograph [id number]#1.00CD: 127 [facility] Correspondence - Woundon Correspondence - Wound [id number]#1.00CD: 127 [facility] Correspondence - Wound [id number]#1.00CD: 127 [facility] Correspondence - Wound [id number]#1.00CD: 127 [facility] HIPAA Forms Officeon 023 HIPAA Forms Office [id number]#1.00CD: 127 [facility] Nursing Assessment - Woundon 12-04-2022 Nursing Assessment - Wound [id number]#1.00CD:1 27 [facility] Physician Orderon 12-04-2022 Physician Order [id number]#1.00CD:1 27 [facility] Procedure - Woundon 12-04-19 Procedure - Wound [id number]#1.00CD:1 27 [facility] Progress Note - Woundon Progress Note - Wound [id number]#1.00CD:1 27 [facility] Consent for Treatmenton Consent for Treatment [id number]#1.00CD:12 7 [facility] Multi-Wound Charton 12-03-19 Multi-Wound Chart [id number]#1.00CD:1 27 [facility] Correspondence - Woundon Correspondence - Wound [id number]#1.00CD:12 7 [facility] Progress Noteson 07-20-2022 Outbound Sales Representative Authentication Interface Message Text EMERGENCY TRIAGE, TREAT AND TRANSPORT (ET3) DOCUMENTATION OF TELEHEALTH VISIT Date / Time: 07/18/2022 / 1430 Name: Yousif Aguilar : 1945 SSN: [id number] EMS Agency: [facility] [] Verbal consent obtained [...] Completed by: Wilfrid Haley MD Normal [employer] [facility] Coding Summary.on 02-19-2019 Coding Summary. CODING DATE: 019 FINAL [facility] STATUS: Home (Routine DC) PAYOR: [...] elsewhere classified E78.00 Pure hypercholesterolemia, unspecified Z79.01 correction (current) use of anticoagulants Z86.718 Personal history [...] Date Saved: 02/19/2019 01:[address] [facility] CNOVon 09-03-2017 CNOV Office Visit (VASSFT) DANIAJEF Tima Choi ([id number]) 1945 MDate Time Provider Rzmoppcdhw67/4/17 10:00 AM NEO ROCHA During your visit today, we recorded the following information about you: Pulse Blood pressure Weight 73/minute 142/72 142.9 kgNeo Rocha MD 09/03/2017 10:08 AM [facility] [facility] Rosie [place] Department of Cardiovascular MedicineOUTPATIENT VISIT DATE September 03, 2017OUTPATIENT VISIT TYPEESTABLISHEDPRATRIUM HEALTH HARRISBURGRY CARE PHYSICIAN:Abbie Gtz III, DO257 PAULO SALGUERO [address] [place] [id number]: [phone]: [phone] PHYSICIANAbbie Gtz III, DO257 Paulo Salguero 1[facility] [id number] COMPLAINT:No chief complaint on file.HISTORY OF PRESENT [...] PE and DVT, 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 CT Chest +[id number] DUS LE +Rt femoral and popliteal [id number] DUS LE +Lt popliteal DVTPAST MEDICAL HISTORYDiagnosis [...] kg (315 lb) SpO2 94% BMI 43.93 kg/t2Mstcjvc appearance: alert and cooperative individual, in no [...] elevation.Neo Rocha, MDReferring Provider: ABBIE GTZ III [[id number]]Allergies As of Date: 09/03/2017 Noted Allergy ReactionSHELLFISH [...] to improve.Follow-up and Disposition History RecordedEncounter Number: [id number] Status:Closed by NEO ROCHA MD on 09/03/17 Normal [facility] PROGRESSon 09-03-2017 PROGRESS HNO ID: [id number] thor: Neo RochaSerraysae: (none)Author Type: PhysicianType: Progress NotesFiled: 09/03/2017 10:08 AMNote Text:[facility]Robnew [facility] Department of Cardiovascular MedicineOUTPATIENT VISIT DATE September 03, 2017OUTPATIENT VISIT TYPEESTABLISHEDPRIMARY CARE PHYSICIAN:Abbie Gtz III, DO257 [facility]ENTER[facility]IDA[facility] ALDO SALGUERO [address] [place] [id number]: [phone]: [phone] PHYSICIANAbbie Gtz III, DO257 [place] Aldo Salguero [facility] [id number] COMPLAINT:No chief complaint on file.HISTORY OF PRESENT [...] PE and DVT, 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 CT Chest +[id number] DUS LE +Rt femoral and popliteal [id number] DUS LE +Lt popliteal DVTPAST MEDICAL HISTORYDiagnosis [...] kg (315 lb) SpO2 94% BMI 43.93 kg/t4Qlvpufm appearance: alert and cooperative individual, in no [...] skin moisturizer, leg elevation.Neo Rocha MD Normal [facility] Vital Signs Date Time Vital Sign Value Performing Clinician Facility 10-28-2023 17:16-0500 Heart rate 69 /min Theresa Villalpando [facility] 10-28-2023 17:16-0500 SaO2% (BldA) [Mass fraction] 92 % Theresa Pocos [facility] 10-28-2023 17:16-0500 Diastolic blood pressure 77 mm[Hg] Theresa Pocos [facility] 10-28-2023 17:16-0500 Mean blood pressure 100 mm[Hg] Theresa Pocos [facility] 10-28-2023 17:16-0500 Systolic blood pressure 145 mm[Hg] Theresa Pocos [facility] 10-28-2023 17:16-0500 Respiratory rate 16 /min Theresa Pocos [facility] 10-28-2023 16:09-0500 Heart rate 59 /min Theresa Pocos [facility] 10-28-2023 16:09-0500 SaO2% (BldA) [Mass fraction] 95 % Theresa Pocos [facility] 10-28-2023 16:09-0500 Diastolic blood pressure 82 mm[Hg] Theresa Pocos [facility] 10-28-2023 16:09-0500 Mean blood pressure 95 mm[Hg] Theresa Pocos [facility] 10-28-2023 16:09-0500 Systolic blood pressure 121 mm[Hg] Theresa Pocos [facility] 10-28-2023 16:08-0500 Respiratory rate 16 /min Theresa Pocos [facility] 10-28-2023 15:58-0500 Blood Pressure Location Theresa Pocos [facility] 10-28-2023 15:58-0500 Body temperature 96.98 [degF] Theresa Pocos [facility] 10-28-2023 15:58-0500 Diastolic blood pressure 68 mm[Hg] Theresa Pocos [facility] 10-28-2023 15:58-0500 Heart rate 64 /min Theresa Pocos [facility] 10-28-2023 15:58-0500 Mean blood pressure 88 mm[Hg] Theresa Pocos [facility] 10-28-2023 15:58-0500 Respiratory rate 18 /min Theresa Pocos [facility] 10-28-2023 15:58-0500 SaO2% (BldA) [Mass fraction] 96 % Theresa Pocos [facility] 10-28-2023 15:58-0500 Systolic blood pressure 127 mm[Hg] Theresa Pocos [facility] 10-28-2023 15:46-0500 Blood Pressure Location Theresa Pocos [facility] 10-28-2023 15:46-0500 Mean blood pressure 86 mm[Hg] Theresa Pocos [facility] 10-28-2023 15:46-0500 Respiratory rate 14 /min Theresa Pocos [facility] 10-28-2023 15:41-0500 Blood Pressure Location Theresa Pocos [facility] 10-28-2023 15:41-0500 Mean blood pressure 95 mm[Hg] Theresa Pocos [facility] 10-28-2023 15:41-0500 Respiratory rate 18 /min Theresa Pocos [facility] 10-28-2023 15:31-0500 Body temperature 96.98 [degF] Theresa Pocos [facility] 10-28-2023 11:04-0500 Heart rate 80 /min Theresa Pocos [facility] 10-28-2023 11:02-0500 Respiratory rate 20 /min Theresa Pocos [facility] 10-28-2023 11:02-0500 Body temperature 97.7 [degF] Theresa Pocos [facility] 10-28-2023 11:02-0500 Mean blood pressure 104 mm[Hg] Theresa Pocos [facility] 10-22-2023 12:34-0500 Heart rate 80 /min Theresa Pocos [facility] 10-22-2023 12:34-0500 SaO2% (BldA) [Mass fraction] 94 % Theresa Pocos [facility] 10-22-2023 12:34-0500 Diastolic blood pressure 65 mm[Hg] Theresa Pocos [facility] 10-22-2023 12:34-0500 Mean blood pressure 86 mm[Hg] Theresa Pocos [facility] 10-22-2023 12:34-0500 Systolic blood pressure 130 mm[Hg] Theresa Pocos [facility] 10-22-2023 12:34-0500 Body temperature 97.7 [degF] Theresa Pocos [facility] 10-22-2023 12:34-0500 Respiratory rate 18 /min Theresa Pocos [facility] 10-17-2023 22:14-0500 Diastolic blood pressure 94 mm[Hg] Kaylinn Dokken [facility] 10-17-2023 22:14-0500 Heart rate 82 /min Kaylinn Dokken [facility] 10-17-2023 22:14-0500 Mean blood pressure 121 mm[Hg] Kaylinn Dokken [facility] 10-17-2023 22:14-0500 Respiratory rate 18 /min Kaylinn Dokken [facility] 10-17-2023 22:14-0500 SaO2% (BldA) [Mass fraction] 96 % Kaylinn Dokken [facility] 10-17-2023 22:14-0500 Systolic blood pressure 174 mm[Hg] Kaylinn Dokken [facility] 10-17-2023 21:29-0500 Body temperature 97.7 [degF] Kaylinn Dokken [facility] 10-17-2023 21:29-0500 Diastolic blood pressure 75 mm[Hg] Kaylinn Dokken [facility] 10-17-2023 21:29-0500 Heart rate 80 /min Kaylinn Dokken [facility] 10-17-2023 21:29-0500 Respiratory rate 18 /min Kaylinn Dokken [facility] 10-17-2023 21:29-0500 SaO2% (BldA) [Mass fraction] 98 % Kaylinn Dokken [facility] 10-17-2023 21:29-0500 Systolic blood pressure 162 mm[Hg] Kaylinn Dokken [facility] 10-17-2023 21:14-0500 Body temperature 97.7 [degF] Kaylinn Dokken [facility] 10-17-2023 21:14-0500 Diastolic blood pressure 78 mm[Hg] Bryce Funk [facility] 10-17-2023 21:14-0500 Heart rate 83 /min Bryce Funk [facility] 10-17-2023 21:14-0500 Respiratory rate 18 /min Bryce Funk [facility] 10-17-2023 21:14-0500 SaO2% (BldA) [Mass fraction] 99 % Chantelchapis Funk [facility] 10-17-2023 21:14-0500 Systolic blood pressure 158 mm[Hg] moshe Escalanteen [facility] 02-17-2023 11:00-0400 Body height 177.8 cm Perlita Reno Other [facility] [place] Other 02-17-2023 11:00-0400 Body mass index (BMI) [Ratio] 38.31 kg/m2 Perlita Reno Other [facility] Other 02-17-2023 11:00-0400 Body temperature 97.8 [degF] Perlita Reno Other [facility] Other 02-17-2023 11:00-0400 Body weight 121.11 kg Perlita Reno Other [facility] Other 02-17-2023 11:00-0400 Diastolic blood pressure 787 mm[Hg] Perlita Reno Other [facility] Other 02-17-2023 11:00-0400 SaO2% (BldA) [Mass fraction] 97 % Perlita Reno Other [facility] [place] Other 02-17-2023 11:00-0400 Systolic blood pressure 130 mm[Hg] Perlita Reno Other [facility] [place] Other 07-18-2022 14:30-0400 Diastolic blood pressure 65 mm[Hg] Et3 [facility] 07-18-2022 14:30-0400 Heart rate 83 /min Et3 [facility] 07-18-2022 14:30-0400 Respiratory rate 18 /min Et3 [facility] 07-18-2022 14:30-0400 Systolic blood pressure 117 mm[Hg] Et3 [facility] 07-05-2022 13:39-0400 Diastolic blood pressure 67 mm[Hg] [facility] 07-05-2022 13:39-0400 Heart rate 71 /min [facility] 07-05-2022 13:39-0400 Mean blood pressure 88 mm[Hg] [facility] 07-05-2022 13:39-0400 Respiratory rate 18 /min [facility] 07-05-2022 13:39-0400 SaO2% (BldA) [Mass fraction] 99 % [facility] 07-05-2022 13:39-0400 Systolic blood pressure 130 mm[Hg] [facility] 07-05-2022 13:00-0400 Diastolic blood pressure 66 mm[Hg] [facility] 07-05-2022 13:00-0400 Heart rate 69 /min [facility] 07-05-2022 13:00-0400 Mean blood pressure 89 mm[Hg] [facility] 07-05-2022 13:00-0400 SaO2% (BldA) [Mass fraction] 97 % [facility] 07-05-2022 13:00-0400 Systolic blood pressure 135 mm[Hg] [facility] 07-05-2022 12:30-0400 Diastolic blood pressure 63 mm[Hg] [facility] 07-05-2022 12:30-0400 Heart rate 72 /min [facility] 07-05-2022 12:30-0400 Mean blood pressure 84 mm[Hg] [facility] 07-05-2022 12:30-0400 Respiratory rate 18 /min [facility] 07-05-2022 12:30-0400 SaO2% (BldA) [Mass fraction] 93 % [facility] 07-05-2022 12:30-0400 Systolic blood pressure 126 mm[Hg] [facility] 07-05-2022 12:05-0400 Heart rate 76 /min [facility] 07-05-2022 11:50-0400 Body temperature 98.24 [degF] [facility] 07-05-2022 11:50-0400 Heart rate 81 /min [facility] 03-21-2022 08:18-0400 Blood Pressure Location Mitali Carine [facility] 03-21-2022 08:18-0400 Body temperature 97.34 [degF] Mitali Hawk [facility] 03-21-2022 08:18-0400 Diastolic blood pressure 74 mm[Hg] Mitali Hawk [facility] 03-21-2022 08:18-0400 Heart rate 78 /min Mitali Hawk [facility] 03-21-2022 08:18-0400 SaO2% (BldA) [Mass fraction] 96 % Mitali Carine [facility] 03-21-2022 08:18-0400 Systolic blood pressure 122 mm[Hg] Mitali Hawk [facility] Encounters Encounter Date Encounter Type Care Provider Facility Start: 12-22-2023 End: 12-22-2023 ambulatory ADDI POCOS Not Available Start: 11-28-2023 End: 11-28-2023 ambulatory ADDI POCOS Not Available Start: 11-10-2023 End: 11-10-2023 ambulatory ADDI POCOS Not Available Start: 10-28-2023 End: 10-28-2023 ambulatory Addi Pocos Facility:[facility] Start: 10-28-2023 End: 10-28-2023 Admission to same day surgery [place] Addi Pocos [facility] Start: 10-27-2023 End: 10-28-2023 ambulatory Abbie Gtz Facility:[facility] Start: 10-27-2023 End: 10-27-2023 Patient encounter procedure Abbie Gtz III [facility] Start: 10-22-2023 End: 10-23-2023 ambulatory Addi Pocos Facility:[facility] Start: 10-22-2023 End: 10-22-2023 Patient encounter procedure Addi Pocos [facility] Start: 10-20-2023 End: 10-20-2023 ambulatory ADDI POCOS Not Available Start: 10-17-2023 End: 10-18-2023 Emergency department patient visit Bryce Funk Facility:[facility] Start: 10-17-2023 End: 10-17-2023 Emergency department patient visit Bryce Funk [facility] Start: 08-05-2023 End: 08-06-2023 ambulatory Facundo D Dolce Facility:[facility] Start: 07-29-2023 End: 07-30-2023 ambulatory Facundo D Dolce Facility:[facility] Start: 07-29-2023 End: 07-29-2023 Patient encounter procedure Facundo Hoffman [facility] Start: 07-22-2023 End: 07-23-2023 ambulatory Facundo D Dolce Facility:[facility] Start: 07-14-2023 End: 07-15-2023 ambulatory Facundo D Dolce Facility:[facility] Start: 07-14-2023 End: 07-15-2023 Patient encounter procedure Facundo Tima Hoffman [facility] Start: 07-08-2023 End: 07-09-2023 ambulatory Facundo D Dolce Facility:[facility] Start: 07-08-2023 End: 07-08-2023 Patient encounter procedure Facundo D Qian [facility] Start: 06-30-2023 End: 07-01-2023 ambulatory Facundo D Dolce Facility:[facility] Start: 06-30-2023 End: 06-30-2023 Patient encounter procedure Facundo Tima Hoffman [facility] Start: 06-24-2023 End: 06-25-2023 ambulatory Facundo D Dolce Facility:[facility] Start: 06-17-2023 End: 06-18-2023 ambulatory Facundo D Dolce Facility:[facility] Start: 06-17-2023 End: 06-17-2023 Patient encounter procedure Facundo D Qian [facility] Start: 06-10-2023 End: 06-11-2023 ambulatory Stephen R Bhartice Facility:[facility] Start: 06-10-2023 End: 06-10-2023 Patient encounter procedure Stephen R Bhartijames [facility] Start: 06-02-2023 End: 06-03-2023 ambulatory Facundo Hoffman Facility:[facility] Start: 06-02-2023 End: 06-03-2023 Pre-admission assessment Facundo Hoffman [facility] Start: 05-27-2023 End: 05-28-2023 ambulatory Stephen R Bhartice Facility:[facility] Start: 05-27-2023 End: 05-27-2023 Patient encounter procedure Stephen R Bhartijames [facility] Start: 05-20-2023 End: 05-21-2023 ambulatory Facundo Hoffman Facility:[facility] Start: 05-20-2023 End: 05-20-2023 Patient encounter procedure Facundo Hoffman [facility] Start: 05-15-2023 End: 05-16-2023 ambulatory Facundo Hoffman Facility:[facility] Start: 05-15-2023 End: 05-15-2023 Patient encounter procedure Facundo Hoffman [facility] Start: 05-06-2023 End: 05-07-2023 ambulatory Facundo Hoffman Facility:[facility] Start: 05-06-2023 End: 05-06-2023 Patient encounter procedure Facundo Hoffman [facility] Start: 04-23-[address] FACUNDO HOFFMAN Facility: Start: 04-22-2023 End: 04-23-2023 ambulatory Facundo Hoffman Facility:[facility] Start: 04-15-2023 End: 04-16-2023 ambulatory Facundo Hoffman Facility:[facility] Start: 04-08-2023 End: 04-09-2023 ambulatory Facundo Hoffman Facility:[facility] Start: 04-08-2023 End: 04-08-2023 Patient encounter procedure Facundo Hoffman [facility] Start: 04-02-2023 End: 04-03-2023 ambulatory Stephen R Dolce Facility:[facility] Start: 04-02-2023 End: 04-02-2023 Patient encounter procedure Stephen Hoffman [facility] Start: 03-25-2023 End: 03-26-2023 ambulatory Facundo Alfred Doljames Facility:[facility] Start: 03-17-2023 End: 03-19-2023 ambulatory Facundo Alfred Dolce Facility:[facility] Start: 03-11-2023 End: 03-12-2023 ambulatory Facundo Hayce Facility:[facility] Start: 03-11-2023 End: 03-11-2023 Patient encounter procedure Facundo Hoffman [facility] Start: 03-04-2023 End: 03-05-2023 ambulatory Facundo Hayjames Facility:[facility] Start: 03-04-2023 End: 03-04-2023 Patient encounter procedure Facundo Hoffman [facility] Start: 02-27-2023 End: 02-27-2023 ambulatory Perlita Ramseho Facility:[facility] Start: 02-27-2023 End: 02-27-2023 ambulatory DO Abbie R Gtz III Work Phone: [facility] Work Phone: Start: 02-27-2023 End: 02-27-2023 Patient encounter procedure DO Abbie Gtz III Work Phone: [facility] [place] Work Phone: Start: 02-24-2023 End: 02-25-2023 ambulatory Facundo Hayjames Facility:[facility] Start: 02-24-2023 End: 02-24-2023 Patient encounter procedure Facundo Hoffman [facility] Start: 02-18-2023 End: 02-19-2023 ambulatory Facundo Hayjames Facility:[facility] Start: 02-18-2023 End: 02-18-2023 Patient encounter procedure Facundo Hoffman [facility] Start: 02-17-2023 End: 02-17-2023 ambulatory Perlita Reno Other [facility] [place] Other Start: 02-17-2023 [facility] visit new patient Perlita Ramesh nasir [facility] Start: 02-11-2023 End: 02-12-2023 ambulatory Facundo D Dolce Facility:[facility] Start: 02-04-2023 End: 02-05-2023 ambulatory Facundo D Dolce Facility:[facility] Start: 02-04-2023 End: 02-04-2023 Patient encounter procedure Facundo Hoffman [facility] Start: 01-28-2023 End: 01-29-2023 ambulatory Facundo D Dolce Facility:[facility] Start: 01-28-2023 End: 01-29-2023 ambulatory Facundo D Dolce Facility:[facility] Start: 01-28-2023 End: 01-28-2023 Patient encounter procedure Facundo Hoffman [facility] Start: 01-21-2023 End: 01-22-2023 ambulatory Facundo D Dolce Facility:[facility] Start: 01-21-2023 End: 01-21-2023 Patient encounter procedure Facundo Hoffman [facility] Start: 01-15-2023 End: 01-22-2023 Pre-admission assessment Facundo Hoffman [facility] Start: 01-14-2023 End: 01-15-2023 ambulatory Facundo D Dolce Facility:[facility] Start: 01-14-2023 End: 01-14-2023 Patient encounter procedure Facundo Hayjames [facility] Start: 01-07-2023 End: 01-08-2023 ambulatory Facundo D Dolce Facility:[facility] Start: 01-07-2023 End: 01-07-2023 Patient encounter procedure Facundo Hayjames [facility] Start: 12-31-2022 End: 01-01-2023 ambulatory Facundo D Dolce Facility:[facility] Start: 12-31-2022 End: 12-31-2022 Patient encounter procedure Facundo Hoffman [facility] Start: 12-27-2022 End: 12-28-2022 ambulatory Facundo Hoffman Facility:[facility] Start: 12-27-2022 End: 12-27-2022 Patient encounter procedure Facundo Hoffman [facility] Start: 12-24-2022 End: 12-25-2022 ambulatory Facundo Hoffman Facility:[facility] Start: 12-24-2022 End: 12-24-2022 Patient encounter procedure Facundo Hoffman [facility] Start: 12-17-2022 End: 12-18-2022 ambulatory Facundo Hoffman Facility:[facility] Start: 12-10-2022 End: 12-11-2022 ambulatory Facundo Hoffman Facility:[facility] Start: 12-10-2022 End: 12-10-2022 Patient encounter procedure Facundo Hoffman [facility] Start: 12-03-2022 End: 12-04-2022 ambulatory Facundo Hoffman Facility:[facility] Start: 12-03-2022 End: 12-03-2022 Patient encounter procedure Facundo Hoffman [facility] Start: 10-23-2022 End: 10-31-2022 ambulatory UNKNOWN PROVIDER Facility:[facility] Start: 07-20-2022 End: 07-22-2022 ambulatory UNKNOWN PROVIDER Facility:[facility] Start: 07-18-2022 End: 07-18-2022 [facility] Start: 07-18-2022 End: 07-18-2022 Emergency department patient visit [facility] Triage, Treat and Transport Comment on above: Arrived Start: 07-05-2022 End: 07-05-2022 Emergency department patient visit Itz Lauren [facility] Start: 03-21-2022 End: 03-21-2022 Patient encounter procedure Mitail Hawk [facility] Start: 02-23-2019 Patient encounter procedure Zakia Buck Facility:[facility] Start: 01-01-2019 End: 01-02-2019 Patient encounter procedure Stephen Hoffman Facility:[facility] Start: 09-03-2017 End: 09-04-2017 Ambulatory NEO ROCHA [facility] Procedures Date Procedure Procedure Detail Performing [...] t blood in single stool specimen FIT [facility] Start: [facility] Hepatitis C screening Hepatitis C An tibody [facility] Start: 1965 Tetanus + diphtheria + acellular pertussis vaccine (product) Tdap Booster [facility] Immunizations Immunization Date Immunization Notes Care Provider Hanny macias 08-31-2021 influenza virus vaccine, unspecified formulation Mitali Menendezmetz [facility] 02-02-2021 zoster vaccine recombinant [facility] 09-05-2020 influenza, high dose seasonal, preservative-free [facility] 09-05-2020 influenza virus vaccine, unspecified formulation [facility] 10-15-2019 influenza, high dose seasonal, preservative-free [facility] 09-10-2018 influenza, injectabl e, quadrivalent, preservative free [facility] 09-29-2017 influenza, injectabl e, quadrivalent, preservative free [facility] 09-25-2016 influenza, injectabl e, quadrivalent, preservative free [facility] 03-28-2016 pneumococcal conjuga te vaccine, 13 valent [facility] 09-21-2015 influenza, seasonal, injectable [facility] 12-27-2013 pneumococcal conjuga te vaccine, 13 valent [facility] Payers Date Payer Category Payer Self-pay 2022 Medicaid [id number] 2021 Unknown [id number] 2021 Unknown 2021 Medicare [employer] MEDICARE [employer]NA CHOICE PPO/HMO [id number] 2021-Present [employer] CLAIMS OFFICE [address] [address] [place] [address] PPO [id number] 2018 Unknown [id number] 1945 Unknown [id number] .16.840.1.021595.3.579.2.727 1945 Unknown [id number] 2.16.840.1.655140.3.579.2.72 1945 Unknown [id number] 2.16.840.1.540891.3.579.2.732 1945 Unknown [id number] 2.16.840.1.621723.3.579.2.73 1945 Unknown [id number] 2.16.840.1.529262.3.579.2.593 1945 Unknown [id number] 2.16.840.1.790307.3.579.2. 1947 Unknown [id number] 2.16.840.1.670455.3.579.2 1947 Unknown [id number] 2.16.840.1.446478.3.579.2 1947 Unknown [id number] 2.16.840.1.171287.3.579.272 1947 Unknown [id number] 2.16.840.1.949272.3.579.2 1947 Unknown [id number] 2.16.840.1.531979.3.579.272 1947 Unknown [id number] 2.16.840.1.348271.3.579.2 1947 Unknown [id number] 2.16.840.1.566367.3.579.2.72 1947 Unknown [id number] 2.16.840.1.903730.3.579.2 1947 Unknown [id number] 2.16.840.1.957901.3.579.272 1947 Unknown [id number] 2.16.840.1.033500.3.579.2 1947 Unknown [id number] 2.16.840.1.379248.3.579.2. 1947 Unknown [id number] 2.16.840.1.985635.3.579.2 1947 Unknown [id number] 2.16.840.1.409817.3.579.2 1947 Unknown [id number] 2.16.840.1.029117.3.579.2 1947 Unknown [id number] 2.16.840.1.757233.3.579.2 1947 Unknown [id number] 2.16.840.1.642485.3.579.2 1947 Unknown [id number] 2.16.840.1.547039.3.579.2 1947 Unknown [id number] 2.16.840.1.245759.3.579.2 1947 Unknown [id number] 2.16.840.1.288971.3.579.2 1947 Unknown [id number] 2.16.840.1.050539.3.579.2 1947 Unknown [id number] 2.16.840.1.731770.3.579.2 1947 Unknown [id number] 2.16.840.1.560646.3.579.2 1947 Unknown [id number] 2.16.840.1.484510.3.579.2 1947 Unknown [id number] 2.16.840.1.330960.3.579.2 1947 Unknown [id number] 2.16.840.1.580677.3.579.2 1947 Unknown [id number] 2.16.840.1.228956.3.579.2. 1947 Unknown [id number] 2.16.840.1.999978.3.579.2 1947 Unknown [id number] 2.16.840.1.842114.3.579.2 1947 Unknown [id number] 2.16.840.1.480136.3.579.2 1947 Unknown [id number] 2.16.840.1.708705.3.579.2 1947 Unknown [id number] 2.16.840.1.524167.3.579. 1947 Unknown [id number] 2.16.840.1.561227.3.579.2 1947 Unknown [id number] 2.16.840.1.578728.3.579.2 1947 Unknown [id number] 2.16.840.1.056951.3.579.2 1947 Unknown [id number] 2.16.840.1.205227.3.579.2 1947 Unknown [id number] 2.16.840.1.956667.3.579.2 1947 Unknown [id number] 2.16.840.1.471547.3.579.2 1947 Unknown [id number] 2.16.840.1.142439.3.579.2 1947 Unknown [id number] 1945 Unknown [id number] 2.16.840.1.301855.3.579.2 1945 Unknown [id number] 2.16.840.1.108323.3.579.2.1259 1945 Unknown [id number] 2.16.840.1.456189.3.579.2.1259 1945 Unknown [id number] 2.16.840.1.736357.3.579.2.1259 1945 Unknown [id number] 2.16.840.1.603247.3.579.2.1259 1945 Unknown [id number] 2.16.840.1.817420.3.579.2.1259 1945 Unknown [id number] 2.16.840.1.727159.3.579.2.1259 1945 Unknown [id number] 2.16.840.1.337362.3.579.2.1259 Unknown Stacey NOLEN/SARAH [id number] Unknown [id number] Social History Date Type Detail Facility Start: 03-21-2022 Tobacco smoking status Ex-smoker (finding) [facility] Tobacco smoking status Never [facility] Sex Assigned At Male [facility] Tobacco smoking status AZIS Tobacco smoking consumption unknown [facility] Start: 1945 Sex Assigned At Not [facility] file [facility] Start: 1945 Sex Assigned At Male F [facility] Medical Equipment Procedure Code Equipment Code Equipment Origin al Text Equipment Identifier Dates ELBOW FRACTURE O RIF [facility] DOTheresa A 10/28/23 Unknown Elbow R FDA Start: 10-28-2023 ELBOW FRACTURE O RIF [place] DOTheresa 10/28/23 Unknown Elbow R FDA Start: 10-28-2023 Functional Status Date Assessment Result Facility 10-22-[address] [facility] 10-17-2023 Functional Status N/A [facility] 07-05-2022 Functional Status N/A [facility] Clinical Notes 03-21-2022 to 10-28-2023 Note Date & Type Note Facility 10-28-2023 Hospital Discharg e instructions Patient Education 10/28/2023 16:52:15 Post Op Patient Instructions - FT (Custom) (CUSTOM) 10/27/2023 07:36:07 [facility] - Home Care Instructions (Custom) [place], [place] [facility] OUTPATIENT SURGERY Home Care [...] not drive. Theresa Villalpando, DO [facility] [address] [place] [address] [phone] Reviewed: 03-08 Follow Up Care 10/20/2023 14:32:22 With:Theresa Villalpando Address: [address] [place] [phone]- Business (1) When:11/10/2023 14:30:00 Comments:Appointment has already been scheduled [facility] 10-27-2023 Note [id number] [facility] 10-18-2023 Hospital Discharg e instructions Patient [...] Follow these instructions at home: Medicines Take olfr-iub-nizbrzf and prescription medicines only as told by your health care provider. Ask your health care provider if the medicine prescribed to you: ?Requires you to avoid driving or using heavy machinery. ?Can cause constipation. You may need to take actions to prevent or treat constipation, such as: ?Drink enough fluid to keep your urine pale yellow. ?Take lizc-vff-gxekemg or prescription medicines. ?Eat foods that are [...] provider. Document Revised: 02/14/2022 Document Reviewed: 02/14/2022 [employer] Patient Education 2022 [employer] Follow Up Care 10/17/2023 21:14:35 With:Theresa Villalpando Address: [address] [place], [place] [id number] Business (1) When:10/20/2023 Comments:You can use the pain medication every 6 hours as needed for pain. Please follow-up with your primary care doctor addition to orthopedics for further evaluation management. Please return to the ED for any new or worsening symptoms. With:Abbie Gtz Address: [address] [place] [address] [place] [address]- Business (1) When:Within 3 Day(s) [facility] 10-17-2023 Evaluation + Plan note Extrac krystal from: Title:ED Note Author:Bryce Funk DO Date :10/17/23 Olecranon fracture (S52.023A : Displaced fracture of olecranon process without intraarticular extension of unspecified ulna, initial encounter for closed fracture) Orders: acetaminophen-hydrocodone, 1 tab(s), Oral, q6hr for pain for 3 day(s), 10 tab(s), Refill(s) 0, [facility] 1985, 177.8, cm, 10/17/23 21:21:00 EST, Height/Length Dosing, 133.1, kg, 10/17/23 21:21:00 EST, Weight Dosing Sling Apply XR Elbow 3+ Views Right [facility]03-20-2023 Evaluation note* Encounter Date Diagnosis Assessment Notes [...] with this plan, and denies any questions. [facility] Other 08-20-2022 History of Present illness Narrative* Wilfrid Haley MD - 07/20/2022 8:23 AM EDT Images from the original note were not included. EMERGENCY TRIAGE, TREAT AND TRANSPORT (ET3) DOCUMENTATION OF TELEHEALTH VISIT Date / Time: 07/18/2022 / 1430 Name: Yousif Aguilar : 1945 SSN: [id number] EMS Agency: [facility] [] Verbal consent obtained [...] by: Wilfrid Haley MD documented in this [id number] Hospital Discharge instructions Patient Education 07/05/2022 13:44:46 [...] activities that cause pain. General instructions Take huog-ago-lwfrpii and prescription medicines only as told by [...] 05/07/2011 Document Revised: 04/03/2020 Document Reviewed: 04/03/2020 [employer] Patient Education 2019 [employer] Follow Up Care 07/05/2022 11:49:47 With:Abbie Gtz Address: [address] [place] [address] [facility] [place] [address] [facility] (1) When:07/08/2022 13:33:40 [facility]08-05-2022 Evaluation + Plan noteExtracted from: Title:ED Note [...] XR Hip 2-3 Views Right + Pelvis [facility]04-21-2022 Hospital Discharge instructions Patient Education 03/21/2022 08:32:55 [...] 08/13/2005 Document Revised: 03/04/2019 Document Reviewed: 03/04/2019 [employer] Patient Education [place]. Follow Up Care 03/05/2022 13:23:06 With:Mitali Hawk CNP Address: When:1 year only if needed [facility] Evaluation + Plan note No data available for this section [facility] Evaluation + Plan note Future Appointments Appointment Date:12/10/2022 10:00:00 AM Scheduled Provider: [facility] Appointment Type:WC Assessment (FT) Appointment Date:12/17/2022 01:45:00 PM Scheduled Provider:Facundo Hoffman DPM [facility] App[facility] Type:WC [facility] Future Appointments Appointment Date:12/17/2022 01:45:00 PM Scheduled Provider:Facundo Hoffman DPM [facility] Appointment Type:WC [facility] (FT) [facility] Future Appointments Appointment Date:12/31/2022 10:30:00 AM Scheduled Provider: [facility] Appointment Type:WC Assessment (FT) Appointment Date:01/07/2023 01:45:00 PM Scheduled Provider:Facundo Hoffman DPM [facility] Appointment Type:WC [facility]FT[facility] Future Appointments Appointment Date:12/31/2022 01:30:00 PM Scheduled Provider: [facility] Appointment Type:WC Assessment (FT) Appointment Date:01/07/2023 01:45:00 PM Scheduled Provider:Facundo Hoffman DPM [facility] Appointment Type:WC [facility]FT[facility] Future Appointments Appointment Date:01/07/2023 01:45:00 PM Scheduled Provider:Facundo Hoffman DPM [facility] Appointment Type:WC [facility] Future Appointments Appointment Date:01/14/2023 02:30:00 PM Scheduled Provider:Facundo Hoffman DPM [facility] Appointment Type:WC Follow Up Visit (FT) [facility] + Plan note Future Appointments Appointment Date:01/21/2023 03:30:00 PM Scheduled Provider:Facundo Hoffman DPM [facility] Appointment Type:WC Follow Up [facility] (FT[facility] Future Appointments Appointment Date:01/28/2023 03:30:00 PM Scheduled Provider:Facundo Hoffman DPM [facility] Appointment Type:WC Follow Up Visit (FT) Appointment Date:02/11/2023 01:30:00 PM Scheduled Provider:Facundo Hoffman DPM [facility] Appointment Type:WC [facility]FT) [facility] Future Appointments Appointment Date:02/04/2023 01:45:00 PM Scheduled Provider:Facundo Hoffman DPM [facility] Appointment Type:WC Follow Up Visit (FT) Appointment Date:02/11/2023 01:30:00 PM Scheduled Provider:Facundo Hoffman DPM [facility] Appointment Type:WC [facility] (FT) [facility] Future Appointments Appointment Date:02/11/2023 01:30:00 PM Scheduled Provider:Facundo Hoffman DPM [facility] Appointment Type:WC [facility] (FT) [facility] Future Appointments Appointment Date:02/25/2023 11:30:00 AM Scheduled Provider: [facility] Appointment Type:WC Assessment (FT) Appointment Date:03/04/2023 01:15:00 PM Scheduled Provider:Facundo Hoffman DPM [facility] Appointment Type:WC [facility] (FT) [facility] Future Appointments Appointment Date:03/04/2023 01:15:00 PM Scheduled Provider:Facundo Hoffman DPM [facility] Appointment Type:WC [facility] Up [facility] (FT[facility] Future Appointments Appointment Date:03/11/2023 11:00:00 AM Scheduled Provider: [facility] Appointment Type:WC Assessment (FT) Appointment Date:03/17/2023 01:30:00 PM Scheduled Provider: [facility] Appointment Type:WC Assessment (FT) Appointment Date:03/25/2023 02:00:00 PM Scheduled Provider:Facundo Hoffman DPM [facility] Appointment Type:WC Follow Up [facility] (FT[facility] Future Appointments Appointment Date:03/17/2023 01:30:00 PM Scheduled Provider: [facility] Appointment Type:WC Assessment (FT) Appointment Date:03/25/2023 02:00:00 PM Scheduled Provider:Facundo Hoffman DPM [facility] Appointment Type:WC [facility] (FT) [facility] Future Appointments Appointment Date:04/08/2023 01:45:00 PM Scheduled Provider:Facundo Hoffman DPM [facility] Appointment Type:WC [facility] (FT) [facility] Future Appointments Appointment Date:04/15/2023 02:15:00 PM Scheduled Provider:Facundo Hoffman DPM [facility] Appointment Type:WC [facility] Visit (FT) [facility] Future Appointments Appointment Date:05/15/2023 10:00:00 AM Scheduled Provider: [facility] Appointment Type:WC Assessment (FT) Appointment Date:05/20/2023 01:45:00 PM Scheduled Provider:Facundo Hoffman DPM [facility] Appointment Type:WC [facility] (FT) [facility] Future Appointments Appointment Date:05/20/2023 03:15:00 PM Scheduled Provider:Facundo Hoffman DPM [facility] Appointment Type:WC [facility] (FT) [facility] Future Appointments Appointment Date:06/02/2023 08:30:00 AM Scheduled Provider: [facility] Appointment Type:WC Assessment (FT) Appointment Date:06/10/2023 03:00:00 PM Scheduled Provider:Facundo Hoffman DPM [facility] Appointment Type:WC [facility] Up Visit (FT) [facility] Future Appointments Appointment Date:06/10/2023 03:00:00 PM Scheduled Provider:Facundo Hoffman DPM [facility] Appointment Type:WC [facility] Visit (FT) [facility] Future Appointments Appointment Date:06/24/2023 03:00:00 PM Scheduled Provider:Facundo Hoffman DPM [facility] Appointment Type:WC Follow Up Visit (FT) [facility] Future Appointments Appointment Date:07/08/2023 01:45:00 PM Scheduled Provider:Facundo Hoffman DPM [facility] Appointment Type:WC [facility] Up Visit (FT) [facility] Future Appointments Appointment Date:07/14/2023 09:00:00 AM Scheduled Provider: [facility] Appointment Type:WC Assessment (FT) Appointment Date:07/22/2023 02:00:00 PM Scheduled Provider:Facundo Hoffman DPM [facility] Appointment Type:WC [facility] (FT) [facility] Future Appointments Appointment Date:07/22/2023 02:00:00 PM Scheduled Provider:Facundo Hoffman DPM [facility] Appointment Type:WC Follow Up Visit (FT) [facility] Future Appointments Appointment Date:08/05/2023 02:00:00 PM Scheduled Provider:Facundo Hoffman DPM [facility] Appointment Type:WC Follow Up Visit (FT) [facility] Future Appointments Appointment Date:10/28/2023 02:00:00 PM Scheduled Provider: Location:[facility] Appointment Type:Surgery FT [facility]* Diagnosis Fall in home, initial encounter- Primary documented in this [facility]: History general Narrative - Reported* Type Description Date Medical History high cholesterol Medical History Blood clots Surgical History hand and leg surgery 1974 Surgical History jaw wiring Surgical History elbow surgery Surgical History appendectomy Surgical History wrist surgery right hand Hospitalization History see above [facility] Other Hospital Discharge instructions No data available for this section [facility] No data available for this section [facility] Summary Purpose Family History No Family History [...] section and content) DATE CREATED AUTHOR 05/27/2018 [facility] DATE CREATED AUTHOR AUTHOR'S ORGANIZ ATION 02/25/2019 [facility] DATE CREATED AUTHOR AUTHOR'S ORGANIZ ATION 11/01/2022 [facility] DATE CREATED AUTHOR AUTHOR'S ORGANIZ ATION 03/15/2023 [facility] DATE CREATED AUTHOR AUTHOR'S ORGANIZ ATION 04/09/2023 [facility] DATE CREATED AUTHOR AUTHOR'S ORGANIZ ATION 11/05/2023 [facility] DATE CREATED AUTHOR AUTHOR'S ORGANIZ ATION 12/22/2023 [facility] EPIC Care Team (unrecognized [...] BE BASED ON THE PRIMARY CLINICAL RECORDS. [employer] provides no warranty or guarantee of the accuracy or completeness of information in this document.
== END 2024-02-11 10:52 | disposition home or self-care (01) ==
LOC: VC 10:51
PROVIDERS: PCP Radiology Diagnostic Radiology; Visit Provider Radiology Diagnostic Radiology
DX: I83.813 Varicose veins of bilateral lower extremities with pain (principal)
CPT/HCPCS: 36466

== ENCOUNTER 2024-02-17 11:07 | Outpatient (OUT) | payer OTHER, MEDICAID, SELFPAY ==
--- NOTE | 2024-02-17 11:11 | VEIN_ITS ---
Patient Name: YOUSIF NAJERA MR#: [id number] : 1945 Exam Date: 02/17/2024 Ordering Doctor: DR CHRIS KIM M.D. RADIOLOGY REPORT PROCEDURE: VC EXT VENOUS RT LMTD COMPARISON: VC EXT VENOUS RT LMTD, 01/20/2024. VC EXT VENOUS RT LMTD, 08/25/2023. INDICATIONS: I80.01 phlebitis of superficial veins of RT lower extremity TECHNIQUE: Lower extremity rodriges scale and Duplex Doppler evaluation of the deep venous system from the inguinal ligament through the calf veins. FINDINGS: REGION: Right lower extremity. THROMBI: Negative for DVT. Varithena induced thrombus visualized at dist/med calf and mid/med calf. COMPRESSIBILITY: Non-compressible segments corresponding to thrombus FLOW: Areas of no flow corresponding to thrombus OTHER: Multiple varicose veins remain. The largest remaining is at mid/med thigh and measures 5.5mm with 0.9s reflux. CONCLUSION: Post ablation occlusion of treated right leg varicose veins with no deep vein thrombus. Residual varicose veins measuring up to 5.5 mm Dictated by: Chris Kim MD on 02/17/2024 at 12:15 Approved by: Chris Kim MD on 02/17/2024 at 12:15
--- NOTE | 2024-02-17 11:13 | VEIN_ITS ---
Patient Name: YOUSIF NAJERA MR#: [id number] : 1945 Exam Date: 02/17/2024 Ordering Doctor: DR CHRIS KIM M.D. RADIOLOGY REPORT PROCEDURE: [facility] EST LMTD VEIN CENTER - OFFICE VISIT FOLLOW UP COMPARISON: [facility] EST LMTD, 02/03/2024. [facility] EST LMTD, 01/20/2024. PROGRESS NOTES: The patient reports no significant problems following micro foam chemical ablation right leg varicose veins. The patient did not require oral analgesics. The patient has worn his compression stockings. The patient has exercised some. Physical exam demonstrates multiple thrombosed varicose veins. Residual incompetent varicose veins remain. No erythema or warmth to suggest cellulitis or thrombophlebitis. No active ulceration Review of the ultrasound performed the same day demonstrates occlusive thrombus extending throughout the treated varicose veins. No deep vein thrombus period bilateral incompetent varicose veins remain. The patient expressed a desire to proceed with treatment of left leg incompetent varicose veins with micro foam chemical ablation. VEIN/[facility] EST LMTD IMPRESSION: 1. Successful ablation of treated incompetent varicose veins 2. Persistent bilateral incompetent varicose veins. PLAN: Micro foam chemical ablation left leg incompetent varicose veins Nurse notes, history and physical were reviewed and confirmed, see attached forms. The nurse was present throughout the physical exam and consultation Dictated by: Chris Kim MD on 02/17/2024 at 12:16 Approved by: Chris Kim MD on 02/17/2024 at 12:17
--- OUTSIDE RECORDS SUMMARY | 2024-02-17 11:26 | XMS_ITS | CCD ---
Author Organization [facility] Care Team Providers Care Mushroom Cutter Name Role Phone NEO ROCHA Unavailable Unavailable GTZ III, ABBIE R Unavailable Unavailabl e Dolce, Stephen R. Admitting Unavailable Dolce, Stephen R. Attending Unavailable Gtz, Abbie Primary Care Unavailable Zakia Buck Admitting Unavailable HeberZakia Attending Unavailable Gtz, Abbie Primary Care Unavailable Gtz III, Abbie R Primary Care Physician [phone] Unavailable Primary Care Provider Unavailabl e PROVIDER, UNKNOWN Admitting Unavailable PROVIDER, UNKNOWN Attending Unavailable PROVIDER, UNKNOWN Admitting Unavailable PROVIDER, UNKNOWN Attending Unavailable Perlita Reno Unavailable Gtz III, DO Abbie R Primary Care Provider Shadia CYBER FORENSICS ANALYST-C Perlita Cross Attending Provider Perlita Reno Attending Unavailable Perlita [...] Dolce, Facundo Alfred Referring Unavailable Dolce, Facundo Tima Admitting Unavailable Dolce, Facundo Alfred Attending Unavailable Gtz, Abbie R Admitting Unavailable Gtz, Abbie R Attending Unavailable DokkenBryce Attending Unavailable Dolce, Facundo Alfred Attending Unavailable Dolce, Facundo Alfred Attending Unavailable Dolce, Facundo Alfred Attending Unavailable Dolce, Facundo Alfred Attending Unavailable Dolce, Facundo Alfred Attending Unavailable Dolce, Facundo Alfred Attending Unavailable Dolce, Facundo Alfred Attending Unavailable Dolce, Facundo Alfred Attending Unavailable Dolce, Stephen Cross Attending Unavailable Dolce, Facundo Alfred Attending Unavailable Dolce, Facundo D Attending Unavailable Dolce, Facundo D Attending Unavailable Dolce, Facundo Tima Attending Unavailable Pocos, Theresa Montgomery Referring Unavailable Pocos, Theresa Montgomery Attending Unavailable Pocos, Theresa Montgomery Admitting Unavailable Dolce, Facundo Alfred Attending Unavailable Dolce, Facundo Alfred Attending Unavailable Dolce, Facundo D Attending Unavailable Dolce, Facundo D Attending Unavailable Dolce, Facundo Alfred Attending Unavailable [...] [IODINE] Drug Allergy 6 Unknown (qualifier value) [facility] Repository (20 sources) Penicillins; Translations: [PENICILLINS] Propensity to adverse reactions to drug (disorder) 6 Unknown (qualifier value) [facility] Repository (1 source) SHELLFISH CONTAINING PRODUCTS; Translations: [SHELLFISH CONTAINING PRODUCTS] Propensity to adverse reactions to drug (disorder) 7 AOF [facility] Repository (20 sources) Shellfish; Translations: [shellfish] Propensity to adverse reactions (disorder) Pharyngeal swelling (finding), Difficulty breathing (finding) [facility] Repository (5 sources) Contrast media; Translations: [Contrast Dye] Propensity to adverse reactions Dizziness (finding) [facility] (1 source) Penicillin Drug Allergy rash [employer] Other (1 source) Shellfish Drug allergy Unknown [employer] Other (1 source) Penicillins; Translations: [penicillins] Drug allergy Unknown (qualifier value) [facility] Comment on above: as a child Medications Current Medications Medication Drug Class(es) Dates Sig (Normalized) Sig (Original) acetaminophen 325 mg / HYDROcodone bitartrate 5 mg oral tablet (2 sources) Opioid Agonist Start: 10-28-2023 [place] 325 mg-5 mg oral tablet See Instructions, for pain, 40 tab(s), Refill(s) 0, 1 - 2 po q4-6h prn pain Dx: S52.031D Duration: 7 days, [facility]/pharmacy #[id number], 177, cm, 10/22/23 12:25:00 EST, Height/Length Dosing, 132.5, kg, 10/22/23 12:25:00 EST, Weight Dosing Start Date: 10/28/23 Status: Ordered Start: 10-17-2023 End: 10-20-2023 take 1 tablet by mouth every six hours for pain [place] 325 mg-5 mg oral tablet 1 tab(s), Oral, q6hr for pain for 3 day(s), 10 tab(s), Refill(s) 0, [facility], 177.8, cm, 10/17/23 [...] constipation, # 40 cap(s), Refills(s) 0, Pharmacy: [facility]/pharmacy #6173, 177, cm, 10/22/23 12:25:00 [...] ulna, initial encounter for closed fracture] Onset: 10-17-20 Episodic Hemorrhoids (20 sources) Hemorrhoids; Translations: [Unspecified hemorrhoids] Onset: 04-21-20 22 Episodic Other and unspecified benign neoplasm (20 sources) Polyp of colon; Translations: [Polyp of colon] Onset: 03-21-20 Episodic Other and unspecified benign [...] Facility IntraOperative Documentson 1 01-04-2023 IntraOperative Documents [id number]#1.00TIFF [facility] Progress Note-Physicianon Progress Note-Physician Patient: YOUSIF AGUILAR Age: 77 years Sex: Male : 1945 Associated Diagnoses: None Author: MD Rudd Ahmad F Postoperative Information Postoperative disposition: Postoperative disposition: To PACU. Optimetrix number: Optimetrix number [id number]. Anesthetic utilized: General. Health Status Allergies: Allergic [...] when meets criteria ( To home ). Normal [facility] Comment on above: Result Comment: Elec tronically [...] constipation, # 40 cap(s), Refills(s) 0, Pharmacy: [facility]/pharmacy #6173, 177, cm, 10/22/23 12:25:00 EST, Height/Length Dosing, 132.5, kg, 10/22/23 12:25:00 EST, Weight Dosing [place] 325 mg-5 mg oral tablet: See Instructions, for pain, 40 tab(s), Refill(s) 0, 1 - 2 po q4-6h prn pain Dx: S52.031D Duration: 7 days, [facility]/pharmacy #6173, 177, cm, 10/22/23 12:25:00 [...] Problems High blood pressure / SNOMED CT 9615261692 / Confirmed Hypercholesterolemia / ICD-9-CM 272.0 / Confirmed Lymphedema / SNOMED CT 61088281 / Confirmed 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 / SNOMED CT 143242873 / Confirmed History of colon polyps / SNOMED CT 8758493741 / Confirmed Colon polyp / SNOMED CT 651299277 / Confirmed Diverticulosis / SNOMED CT 7767694691 / Confirmed Hemorrhoids / SNOMED CT 203528437 / Confirmed Extreme obesity / SNOMED CT 25O77057-6AB1-77V6-N814-6 [id number] / Possible Resolved: DVT / SNOMED CT 334240437 Resolved: PE - Pulmonary embolism / SNOMED CT 1730013321 Resolved: Stasis dermatitis co-occurrent with venous ulcer of right lower extremity due to chronic peripheral venous hypertension / SNOMED CT 841364396456080 Resolved: Stasis dermatitis of left lower extremity due to peripheral venous hypertension / SNOMED CT 720928794467366 Resolved: Stasis dermatitis of right lower extremity due to peripheral venous hypertension / SNOMED CT 393037243345970 Resolved: Stasis dermatitis and venous ulcer of left lower extremity due to chronic peripheral venous hypertension / SNOMED CT 495614715347136 Histories Past Medical History: Active Hypercholesterolemia (272.0) Lymphedema (85716503) Resolved PE - Pulmonary embolism (1624986580): Onset on 12/01/2005 at 60 years. Resolved. DVT (062023175): Resolved. Stasis dermatitis co-occurrent with venous ulcer of right lower extremity due to chronic peripheral venous hypertension (860005890250449): Resolved. Stasis dermatitis of left lower extremity due to peripheral venous hypertension (970059278037083): Resolved. Stasis dermatitis of right lower extremity due to peripheral venous hypertension (396267062193899): Resolved. Stasis dermatitis and venous ulcer of left lower extremity due to chronic peripheral venous hypertension (014928748379269): Resolved. Family History: Hyperlipidemia Mother Heart disease Father Non Hodgkin's lymphoma Mother Procedure history: ORIF of Right Elbow (006663151) on 10/28/2023 at 77 Years. Colonoscopy (150263753) on 03/04/2022 at 76 Years[address]LT RLSV [address]. Buck on 04/21/2019 at 73 Years. EVLT RASV X 2 on 07/01/2016 at 70 Years. Comments: 05/28/2019 15:[address] 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 Comments: 05/28/2019 15:[address] DID SOME TYPE OF VEIN PROCEDURE PER PATIENT crushed left elbow in 1979 at 34 Years. Comments: 05/14/2019 13:08 Anny Candlearia 1979' left knee surgery, due to injury in 1973 at 28 Years. jaw surgery due to fracture in 1966 at 21 Years. Appendectomy (471103940) in 1952 at 7 Years. bilateral wrist surgeries (child, 1955,1995). Social History Social & Psychosocial Habits Alcohol [...] visible). Respiratory (more content not included)... Normal [facility] Comment on above: Result Comment: Elec tronically Signed By: MD Kar, Jemima Bella\.br\Date and Time Signed: 11/01/23 18:14 EST Operative Reporton Operative Report SURGERY DATE: 2022 ADMINISTRATIVE UNDERWRITER: Samuel Gonsalez PA-C PREOPERATIVE DIAGNOSIS: Right olecranon fracture POSTOPERATIVE DIAGNOSIS: Right olecranon fracture OPERATION: Right olecranon open reduction internal fixation ANESTHESIA: General ANESTHESIOLOGIST: CINDY Faria ESTIMATED BLOOD LOSS: None SPECIMEN: None COMPLICATIONS: None IMPLANT: 0.062 K-wire x2 with 18 gauge dental wire for a twwovn-fh-lvgyp tension band construct HISTORY/OPERATIVE INDICATIONS: Yousif is [...] visualized. It is then fixed with a hrhjqq-nb-kugpv construct as described below. Samuel Gonsalez did [...] This is done in the standard fashion. Dqldmu-ah-sxdmy is then applied, tensioned accordingly, is cut [...] patient is subsequently extubated, transferred to the [facility] and taken to Post-Anesthesia Care Unit in stable condition. He will be discharged this day. Heath Orourke Dictated: 10/28/2023 [id number] Transcribed: 10/29/2023 cc:Abbie Gtz III, D.O. [facility] Comment on above: Result Comment: Elec tronically Signed By: Theresa Villalpando DO\.br\Date and Time Signed: 10/30/23 11:53 EST Consent for Anesthesiaon Consent for Anesthesia [id number]#1.00TIFF Normal [facility] Discharge Instructionson Discharge Instructions [id number]#1.00TIFF Normal [facility] Insurance Correspondence Off iceon 10-29-2023 Insurance Correspondence Office [id number]#1.00TIFF Normal [facility] IntraOperative Documentson 1 12-29-2022 IntraOperative Documents [id number]#1.00TIFF Normal [facility] Main OR Intraoperative Recor don 10-29-2023 Main OR Intraoperative Record IntraOp Document Type FT Summary Primary Physician: Theresa Villalpando DO Finalized Date/Time: 10/29/23 12:32:07 Pt. Name: DANIAYOUSIF D.O.B./Sex: 1945 Male Med Rec #: [id number] Physician: Theresa Villalpando DO Financial #: [id number] Pt. Type: A Room/Bed: [place] [address] Admit/Disch: 10/28/23 10:36:00 - 10/28/23 17:40:00 Institution: [...] Ricardo Valerio DO, David A Hills PA-C, Samuel Alfred Role Performed Anesthesiologist Surgeon - Primary PA/CYBER FORENSICS ANALYST Brineyard Supervisor Time In 10/28/23 14:07:00 10/28/23 14:07:00 [...] C Roll RT, Daniel P Role Performed Rotary Shear Cutter - Primary Scrub - Primary Technical Sales Director Time In 10/28/23 14:07:00 10/28/23 14:07:00 [...] Time Out Ricardo Valerio, Given Participants Pocos DO, Theresa Montgomery, Wallace AVALOS, Samuel Alfred, Idris Brooks Miller, Laura C, Roll RT, Daniel P Time Out Complete 10/28/23 14:28:00 Outcomes Met? [...] and tissue Entry 1 Skin Integrity Intact, [place], Warm, and Skin Abnormality No Dry Outcomes [...] symptoms o (more content not included)... Normal [facility] Preoperative Documentson Preoperative Documents [id number]#1.00TIFF Normal [facility] XR Elbow 2 Views Righton XR Elbow [...] SARAH Technologist: BREONNA Technical Comments Radiation Dose: Kar in mGy = 1.66 DAP = na Normal [facility] Consent for Treatmenton 10-02 Consent for Treatment [id number]#1.00TIFF Normal [facility] Discharge Instructionson Discharge Instructions DANIA YOUSIF L :1945 Visit Date:10/28/2023 Inpatient Discharge Instructions Your Care Team Admitting Physician - Theresa Villalpando DO Referring Physician - Theresa Villalpando DO Reason for Your Visit RIGHT OLECRANON FRACTURE Tests Performed XR Elbow 2 Views Right -- Results Pending -- Please visit your patient portal for your results or contact your primary care physician. This Is Your Medications List acetaminophen-hydrocodone ([place] 325 mg-5 mg oral tablet) atorvastatin (atorvastatin [...] (1966), Appendectomy (1952), bilateral wrist surgeries (child, 1955,1995). What to do next New Follow Up Appointments after Discharge Follow Up with Theresa Villalpando When: 11/10/2023 02:30 PM EST Comments: Appointment has already been scheduled Where: [address] [place] [address]- [facility] (1) Medications What How Much When Instructions Next Dose Unchanged acetaminophen-hydrocodone ([place] 325 mg-5 mg oral tablet) See instructions 1 - 2 po q4-6h prn pain Dx: S52.031D Duration: 7 days Pickup at [facility]/pharmacy #6173 Unchanged atorvastatin (atorvastatin 20 mg Tab) 1 Tablets By Mouth Once a day (at bedtime) Unchanged docusate (Colace 100 mg Cap) 1 Capsules By Mouth 2 times a day as needed for for constipation Pickup at [facility]/pharmacy #6173 Unchanged hydrochlorothiazide (hydrochlorothiazide 25 mg oral tablet) 1 Tablets By Mouth Every day Unchanged rivaroxaban (Xarelto 2.5 mg oral tablet) 2 Tablets By Mouth Every day Pharmacy Information [facility]/pharmacy #6173: [address] [place], [place] [id number] [phone] Test Results No qualifying data available. Allergies [...] WIRE 10/28/2023 K-WIRE (2), 10/28/2023 Education Materials [place], [place] [facility] OUTPATIENT SURGERY Home Care [...] pain a (more content not included)... Normal [facility] Comment on above: Result Comment: Elec tronically Signed By: Flavio PHELPS, Marilou Aguero\.br\Date and Time Signed: 10/28/23 16:53 EST H&P Updateon 10-28-2023 H&P Update [id number]#1.00TIF F Normal [facility] Main OR PACU I Recordon 10-02 Main OR PACU I Record PACU Phase I Document Type FT Summary Primary Physician: Theresa Villalpando DO Finalized Date/Time: 10/28/23 16:14:58 Pt. Name: YOUSIF AGUILAR D.O.B./Sex: 1945 Male Med Rec #: [id number] Physician: Theresa Villalpando DO Financial #: [id number] Pt. Type: A Room/Bed: [place] [address] Admit/Disch: 10/28/23 10:36:00 - Institution: Case Times [...] By: Elizabeth Rowe RN 10/28/23 16:14 Normal [facility] Main OR Preoperative Recordo n 10-28-2023 Main OR Preoperative Record PreOp Document Type FT Summary Primary Physician: Theresa Villalpando DO Finalized Date/Time: 10/28/23 14:12:47 Pt. Name: YOUSIF AGUILAR Jimbo Gaines/Sex: 1945 Male Med Rec #: [id number] Physician: Theresa Villalpando DO Financial #: [id number] Pt. Type: A Room/Bed: [facility] Admit/Disch: 10/28/23 10:36:00 - Institution: Case Times [...] Signed By: Idris Brooks 10/28/23 14:12 Normal [facility] Monitor Recordon 10-28-2023 Monitor Record [id number]#1.00TIFF Normal [facility] Patient Education - Texton 1 12-28-2022 Patient Education - Text [place], [place] [facility] OUTPATIENT SURGERY Home Care [...] drive. __ Theresa Villalpando DO [facility] [address] [place] [address] Reviewed: 03-08 [facility] Progress Note-Physicianon Progress Note-Physician Patient: YOUSIF AGUILAR Age: 77 years Sex: Male : 1945 Associated Diagnoses: None Author: Tehresa Villalpando DO Postoperative Information Procedure: R Olecranon ORIF Preoperative Diagnosis: R olecrjerome fx. Postoperative Diagnosis: same. Performed by: camila. Brineyard Supervisor: Wallace. Specimens Removed: none. Prosthesis: tension band. . Estimated Blood Loss: 0 ml. Complications: None. Anesthesia type: General. Normal [facility] Comment on above: Result Comment: Elec tronically Signed By: Theresa Villalpando DO\Date and Time Signed: 10/28/23 15:37 EST CHEMISTRYOrdered By: SYSTEM SYSTEM on 10-27-2023 Potassium [Moles/Vol] 3.6 mmol/L Normal 3.5 - 5.3 mmol/L [facility] [place] Consent for Procedure/Surger yon 10-27-2023 Consent for Procedure/Surgery [id number]#1.00TIFF Normal [facility] Consent for Treatmenton 10-02 Consent for Treatment [id number]#1.00TIFF Normal [facility] Physician Orderon 10-27-2023 Physician Order [id number]#1.00TIFF Normal [facility] Potassiumon 10-27-2023 Potassium [Moles/Vol] 3.6 mmol/L Normal 3.5-5.3 [facility] Comment on above: Performed By: #### 2 901389 #### [facility] Laboratory [address] [place] [address] XR Chest 2 Viewson 3 XR Chest [...] mGy = na DAP = na Normal [facility] Auto Diffon 10-22-2023 Basophils/100 WBC (Bld) 0.3 % Normal 0.0-2.0 [facility] Comment on above: Order Comment: Order Added by Discern Expert. Performed By: #### 2 869044, 8249304, 3576805, 45087269 ####[facility] [address] [place] [address] Basophils/Leukocytes Auto (Bld) [Pure # fraction] 0.0 E9/L Normal 0.0-0.2 [facility] Comment on above: Order Comment: Order Added by Discern Expert. Performed By: #### 2 548366, 0446905, 1459161, 86654050 ####[place] [address] [place] [address] Eosinophils/100 WBC (Bld) 3.6 % Normal 0.0-8.0 [facility] Comment on above: Order Comment: Order Added by Discern Expert. Performed By: #### 2 230372, 3683834, 2269907, 22029484 ####[facility] [address] [place] [address] Eosinophils/Leukocyt es Auto (Bld) [Pure # fraction] 0.3 E9/L Normal 0.0-0.5 [facility] Comment on above: Order Comment: Order Added by Discern Expert. Performed By: #### 2 921029, 7566560, 1474221, 32878871 ####[facility] [address] [place] [address] Lymphocytes/100 WBC (Bld) 15.5 % Normal 14.0-50.0 [facility] Comment on above: Order Comment: Order Added by Hilda Expert. Performed By: #### 2 502107, 3965302, 1421100, 74395601 ####[facility] [address] [place] [address] Lymphocytes/Leukocyt es Auto (Bld) [Pure # fraction] 1.1 E9/L Normal 1.0-4.0 [facility] Comment on above: Order Comment: Order Added by Discern Expert. Performed By: #### 2 017278, 4303461, 3559883, 38973556 ####[address] [place] [address] Monocytes/100 WBC (Bld) 9.5 % Normal 4.0-14.0 [facility] Comment on above: Order Comment: Order Added by Discern Expert. Performed By: #### 2 597438, 8069343, 5269225, 09805615 ####[address] [place] [address] Monocytes/Leukocytes Auto (Bld) [Pure # fraction] 0.7 E9/L Normal 0.2-1.0 [facility] Comment on above: Order Comment: Order Added by Discern Expert. Performed By: #### 2 998777, 0310284, 3819459, 50943008 ####[address] [address] Neutrophils/100 WBC (Bld) 71.1 % Normal 36.0-75.0 [facility] Comment on above: Order Comment: Order Added by Discern Expert. Performed By: #### 2 877072, 0634384, 1226685, 22626435 ####[address] [place] [address] Neutrophils/Leukocyt es Auto (Bld) [Pure # fraction] 5.2 E9/L Normal 2.0-7.5 [facility] Comment on above: Order Comment: Order Added by Discern Expert. Performed By: #### 2 751278, 1887934, 2686249, 57018227 ####[address] [place] [address] BMPon 10-22-2023 Anion gap [Moles/Vol] 13 mmol/L Normal 6-16 [facility] Comment on above: Performed By: #### 2 258405, 3644634, 3270276, 83068466 ####[address] [place] [address] Calcium [Mass/Vol] 8.4 mg/dL Low 8.9-11.1 [facility] Comment on above: Performed By: #### 2 404963, 7523012, 6899760, 79589026 ####[facility] [address] [place] [address] Chloride [Moles/Vol] 97 mmol/L Low 101-111 [facility] Comment on above: Performed By: #### 2 296415, 4395710, 0698462, 81322262 ####[facility] [address] [place] [address] CO2 [Moles/Vol] 31 mmol/L Normal 21-31 [facility] Comment on above: Performed By: #### 2 714780, 6064975, 7248475, 27851343 ####[facility] [address] [place] [address] Creatinine [Mass/Vol] 0.9 mg/dL Normal 0.5-1.3 [facility] Comment on above: Performed By: #### 2 381979, 3045472, 6966206, 65823902 ####[facility] [address] [place] [address] Glucose [Mass/Vol] 105 mg/dL Normal 55-199 [facility] Comment on above: Result Comment: If t his glucose result represents a fasting glucose, interpretation should refer to the following reference range: 55-99 mg/dL Performed By: #### 2 160708, 0113239, 3960994, 42186419 ####[facility] [address] [place] [address] Potassium [Moles/Vol] 2.8 mmol/L Abnormal 3.5-5.3 [facility] Comment on above: Result Comment: Crit ical Result verified by repeat analysis\Critical Result S_K:2.8 Called to [facility] by MITALI DUBON And Read Back For Confirmation at: 10/22/2023 13:36:24 Performed By: #### 2 900057, 4523100, 9617066, 84462066 ####[facility] [address] [place] [address] Sodium [Moles/Vol] 138 mmol/L Normal 135-145 [facility] Comment on above: Performed By: #### 2 770372, 5405486, 6824205, 20605882 ####[facility] [address] [place] [address] Urea nitrogen [Mass/Vol] 17 mg/dL Normal 5-21 [facility] Comment on above: Performed By: #### 2 021930, 7314229, 5816848, 17360551 ####[facility] [address] [place] [address] Urea nitrogen/Creatinine [Mass ratio] 19 No Units Normal 10-20 [facility] Comment on above: Performed By: #### 2 653527, 4325877, 4564529, 79081440 ####[facility] [address] [place] [address] CBC w/ Auto Diffon 3 Erythrocyte distribution width (RBC) [Ratio] 14.1 % Normal 10.9-14.2 [facility] Comment on above: Performed By: #### 2 435124, 6878222, 9743569, 22071298 ####[facility] [address] [place] [address] Hematocrit (Bld) [Volume fraction] 32.6 % Low 37.7-49.0 [facility] Comment on above: Performed By: #### 2 542123, 9787448, 8157121, 78100325 ####[facility] [address] [place] [address] Hemoglobin (Bld) [Mass/Vol] 10.9 g/dL Low 13.5-17.5 [facility] Comment on above: Performed By: #### 2 290686, 7856065, 4018401, 91483404 ####[address] [place] [address] MCH (RBC) [Entitic mass] 28.9 pg Normal 27.0-34.0 [facility] Comment on above: Performed By: #### 2 608282, 6959125, 5963252, 27604719 ####[address] [address] MCHC (RBC) [Mass/Vol] 33.5 g/dL Normal 31.4-36.0 [facility] Comment on above: Performed By: #### 2 343807, 7844399, 1130960, 96854665 ####[address] [address] MCV (RBC) [Entitic vol] 86.3 fL Normal 80.0-100.0 [facility] Comment on above: Performed By: #### 2 [id number], [id number], 4209207, [id number] ####[place] [id number] Platelet mean volume (Bld) [Entitic vol] 8.8 fL Normal 6.4-10.8 [facility] Comment on above: Performed By: #### 2 419340, 1453597, 1721742, [id number] ####[address] [address] Platelets (Bld) [#/Vol] 245.0 E9/L Normal 150.0-500.0 [facility] Comment on above: Performed By: #### 2 804725, 4020417, 0295339, [id number] ####[address] [address] RBC (Bld) [#/Vol] 3.8 E12/L Low 4.3-5.9 [facility] Comment on above: Performed By: #### 2 005830, 9091867, 7587157, [id number] ####[address] [address] WBC corrected for nucl RBC Auto (Bld) [#/Vol] 7.4 E9/L Normal 4.0-11.0 [facility] Comment on above: Performed By: #### 2 189064, 7386911, 6796218, [id number] ####[facility] [address] [place] [address] CHEMISTRYOrdered By: SYSTEM SYSTEM on 10-22-2023 Anion gap [Moles/Vol] 13 mmol/L Normal 6 - 16 mEq/L FT Remisol Calcium [Mass/Vol] 8.4 mg/dL Low 8.9 - 11. 1 mg/dL FT Remisol Chloride [Moles/Vol] 97 mmol/L Low 101 - 1 11 mmol/L FT Remisol CO2 [Moles/Vol] 31 mmol/L Normal 21 - 31 mmol/L FT Remisol Creatinine [Mass/Vol] 0.9 mg/dL Normal 0.5 - 1.3 mg/dL FT Remisol GFR/1.73 sq M.predicted among non-blacks MDRD (S/P/Bld) [Vol rate/Area] 89 mL/min/1.73 m2 Normal >=59mL/min/ 1.73 m2 [facility] Comment on above: Interpretive Data: C hronic kidney disease could be indicated at eGFR's of less than 60 mL/min/1.73m2. Kidney failure is indicated at less than 15 mL/min/1.73m2. Glucose [Mass/Vol] 105 mg/dL Normal 55 - 199 mg/dL [facility] Comment on above: Interpretive Data: I f this glucose result represents a fasting glucose, interpretation should refer to the following reference range: 55-99 mg/dL Potassium [Moles/Vol] 2.8 mmol/L Invalid Interpretation Code 3.5 - 5.3 mmol/L [facility] Comment on above: Result Comment: Crit ical Result verified by repeat analysis\Critical Result S_K:2.8 Called to [facility] by MITALI DUBON And Read Back For Confirmation at: 10/22/2023 13:36:24 Sodium [Moles/Vol] 138 mmol/L Normal 135 - 145 mmol/L FT Remisol Urea nitrogen [Mass/Vol] 17 mg/dL Normal 5 - 21 mg/dL FT Remisol Urea nitrogen/Creatinine [Mass ratio] 19 mg/mg Normal 10 - 20 [facility] Remisol Consent for Treatmenton 10-02 Consent for Treatment [id number]#1.00TIFF Normal [facility] HEMATOLOGYOrdered By: SYSTEM SYSTEM on 10-22-2023 Basophils/100 [...] 33.5 g/dL Normal 31.4 - 36.0 gm/dL FT HemeAutoSS MCV (RBC) [Entitic vol] 86.3 fL Normal 80.0 - 100.0 fL FT HemeAutoSS Platelet mean volume (Bld) [Entitic vol] 8.8 fL Normal 6.4 - 10.8 fL [facility] HemeAutoSS Platelets (Bld) [#/Vol] 245.0 E9/L Normal 150.0 - 500.0 E9/L FT HemeAutoSS RBC (Bld) [#/Vol] 3.8 E12/L Low 4.3 - 5.9 E12/L FT HemeAutoSS WBC corrected for nucl RBC Auto (Bld) [#/Vol] 7.4 E9/L Normal 4.0 - 11.0 E9/L FT HemeAutoSS eGFRon 10-22-2023 GFR/1.73 sq M.predicted among non-blacks MDRD (S/P/Bld) [Vol rate/Area] 89 mL/min/1.73 m2 Normal >=59 [facility] Comment on above: Order Comment: Order added by Discern Expert. Result Comment: Paramedic Instructor mercy kidney disease could be indicated at eGFR's of less than 60 mL/min/1.73m2. Kidney failure is indicated at less than 15 mL/min/1.73m2. Performed By: #### 2 734820, 6157124, 5163757, [id number] ####[facility] [address] [place] [address] Consent for Treatmenton 10-01 Consent for Treatment [id number]#1.00TIFF Normal [facility] Discharge Instructionson Discharge Instructions [id number]#1.00TIFF Normal [facility] ED Clinical Summaryon 2022 ED Clinical Summary (Inserted Image. Clarissa ble to display) [address] [address] ED Clinical Summary Person Information Name: YOUSIF AGUILAR Olga Lidia/[facility] Age: 77 Years : 1945 Sex: Male Language: Estonian PCP: Abbie Gtz III, DO Marital Status: Visit Id: Visit Reason: Trauma - minor; [...] 10/17/2023 23:43:34 10/17/2023 23:43:34 10/17/2023 23:43:34 ADDRESS: [address] [place] [id number] PHYS DOC NOTES: MEDICAL INFORMATION: Prescriptions Given: New Medications [facility], [address] [facility] [place] [id number], [phone] acetaminophen-hydrocodone ([place] 325 mg-5 mg oral tablet) 1 Tablets [...] up: With: Address: When: Theresa Villal[address]ando [address] [place] [address] Business (1) In 3 days 10/20/2023 Comments: You can use the pain medication every 6 hours as needed for pain. Please follow-up with your primary care doctor addition to orthopedics for further evaluation management. Please return to the ED for any new or worsening symptoms. With: Address: When: Abbie Gtz [address] [facility], [place] [address] Business (1) In 3 days DIAGNOSIS: Olecranon fracture Normal [facility] ED Note-Physicianon 10-18-20 ED Note-Physician Basic Information Time Seen: Bryce Funk DO 10/17/2023 21:16 Chief Complaint Pt arrives via [facility] for a fall. Pt states he was [...] and Complexity of Problems Differential Diagnosis: [] [facility] Data External documents reviewed: [] My [...] for 3 day(s), 10 tab(s), Refill(s) 0, [facility] 1985, 177.8, cm, 10/17/23 21:21:00 EST, Height/Length Dosing, 133.1, kg, 10/17/23 21:21:00 EST, Weight Dosing Sling Apply XR Elbow 3+ Views Right Disposition Plan Discharge Prescription List Prescriptions [place] 325 mg-5 mg oral tablet, 1 tab(s), Oral, q6hr, PRN Follow-up With When Contact Information Theresa Villalpando In 3 days 10/20/2023 EST [address] [place] [address]- Business (1) Additional Instructions: You can use the pain medication every 6 hours as needed for pain. Please follow-up with your primary care doctor addition to orthopedics for further evaluation management. Please return to the ED for any new or worsening symptoms. Abbie Gtz In 3 days [address] [facility], [place] [address]- Business (1) Additional Instructions: Patient Education Olecranon [...] lower ex (more content not included)... Normal [facility] Comment on above: Result Comment: Elec tronically Signed By: Bryce Funk DO\.love\Date and Time Signed: 10/17/23 23:18 EST ED [...] these instructions at home: Medicines ? Take soto-gah-eodllpv and prescription medicines only as told by your health care provider. ? Ask your health care provider if the medicine prescribed to you: ? Requires you to avoid driving or using heavy machinery. ? Can cause constipation. You may need to take actions to prevent or treat constipation, such as: ? Drink enough fluid to keep your urine pale yellow. ? Take eakh-iie-zlqzcff or prescription medicines. ? Eat foods that [...] is import (more content not included)... Normal [facility] ED Patient Summaryon 023 ED Patient Summary (Inserted Image. Clarissa ble to display) [place] [id number] Patient Discharge Instructions Person Information Name: YOUSIF AGUILAR Age: 77 Years Arrival Date: 10/17/2023 21:13:58 Discharge Diagnosis: Olecranon fracture Primary Care Physician: Abbie Gtz III, DO Provider Information Primary Provider: Bryce Funk DO Advanced Screenplay Writer:None The exam and treatment you received in the Emergency Department were for an urgent problem and are not intended as complete care. It is important that you follow up with a doctor, nurse practitioner, or physician?s assistant manager for ongoing care. If your symptoms become worse or you do not improve as expected and you are unable to reach your usual health care provider, you should return to the Emergency Department. We are available 24 hours a day. YOUSIF AGUILAR has been given the following list of patient education materials, prescriptions and follow-up instructions: Follow-up Instructions: With: Address: When: Theresa [address] [place] [address] Business (1) In 3 days 10/20/2023 Comments: You can use the pain medication every 6 hours as needed for pain. Please follow-up with your primary care doctor addition to orthopedics for further evaluation management. Please return to the ED for any new or worsening symptoms. With: Address: When: Abbie Gtz [address] [facility], [facility] [place] [address] Business (1) In 3 days In the event that this physician does not participate in your insurance network, please consult with your insurance company to find a nearby participating provider. Patient Education Materials: William Fracture A MESSAGE TO ALL PATIENTS REGARDING OPIOIDS PRESCRIPTION OPIOIDS: WHAT YOU NEED TO KNOW Prescription opioids can be used to help relieve mpnlvsgf-zz-jamevq pain and are often prescribed following a [...] following g (more content not included)... Normal [facility] ED Traumaon 10-18-2023 ED Trauma [id number]#1.00TIFF Normal [facility] XR Elbow 3+ Views Righton XR Elbow [...] in mGy = na DAP = na [facility] Pre-Arrival Noteon 3 Pre-Arrival Note Pre-Arrival Summary Name: , ncems Current Date: 10/17/2023 21:14:37 EST Gender: Male Date of : Age: 77 Pre-Arrival Type: EMS ETA: 10/17/2023 21:06:00 EST Primary Care Physician: Presenting Problem: T2-fall, elbow pain Pre-Arrival User: Nicholas Rosario RN Referring Source: Location: [place] Completion Date/Time: 10/17/2023 21:06:00 [facility] Emergency Department Pre-Hospital Report Form ____ Vital Signs: Pre-Hospital Report: slipped on kitchen floor falling to R elbow, swelling noted. denies hitting head or LOC. on xarelto. no other pain/complaints Treatment in Route: none Response to Treatment: Misc. Issues: Normal [facility] Nursing Note - Woundon 08-12 Nursing Note - Wound [id number] 106565 [id number]#1.00CD:[address] [facility] Consent for Procedure/Surger yon 08-05-2023 Consent for Procedure/Surgery [id number]#1.00CD:[address] [facility] Consent for Treatmenton Consent for Treatment [id number]#1.00CD:[address] [facility] Physician Orderon 08-05-2023 Physician Order [id number]#1.00CD:[address] [facility] Nursing Note - Woundon 07-31 Nursing Note - Wound [id number] 848562 [id number]#1.00CD:[address] [facility] Physician Orderon 07-31-2023 Physician Order [id number]#1.00CD:[address] [facility] Consent for Treatmenton 07-02 Consent for Treatment [id number]#1.00CD:[address] [facility] Multi-Wound Charton 07-29-20 Multi-Wound Chart [id number]#1.00CD:[address] [facility] Nursing Assessment - Woundon 07-29-2023 Nursing Assessment - Wound [id number]#1.00CD:[address] [facility] Procedure - Woundon 07-29-20 Procedure - Wound [id number] [id number]#1.00CD:[address] [facility] Consent for Treatmenton 07-02 Consent for Treatment [id number]#1.00CD:[address] [facility] Multi-Wound Charton 07-22-20 Multi-Wound Chart [id number]#1.00CD:[address] [facility] Nursing Assessment - Woundon 07-22-2023 Nursing Assessment - Wound [id number]#1.00CD:[address] [facility] Nursing Note - Woundon 07-22 Nursing Note - Wound [id number] 629710 [id number]#1.00CD:[address] [facility] Physician Orderon 07-22-2023 Physician Order [id number]#1.00CD:[address] [facility] Procedure - Woundon 07-22-20 Procedure - Wound [id number]#1.00CD:[address] [facility] Progress Note - Woundon 07-02 Progress Note - Wound [id number]#1.00CD:[address] [facility] Consent for Treatmenton 07-01 Consent for Treatment [id number]#1.00CD:127 [facility] Physician Orderon 07-15-2023 Physician Order [id number]#1.00CD:[address] [facility] Multi-Wound Charton 07-14-20 Multi-Wound Chart [id number]#1.00CD:[address] [facility] Nursing Assessment - Woundon 07-14-2023 Nursing Assessment - Wound [id number]#1.00CD:[address] [facility] Nursing Note - Woundon 07-14 Nursing Note - Wound [id number] [id number]#1.00CD:[address] [facility] Consent for Procedure/Surger yon 07-08-2023 Consent for Procedure/Surgery [id number]#1.00CD:[address] [facility] Consent for Procedure/Surgery [id number]#1.00CD:[address] [facility] Consent for Treatmenton Consent for Treatment [id number]#1.00CD:[address] [facility] Multi-Wound Charton 07-08-20 Multi-Wound Chart [id number] [id number]#1.00CD:[address] [facility] Nursing Assessment - Woundon 07-08-2023 Nursing Assessment - Wound [id number]#1.00CD:[address] [facility] Nursing Note - Woundon 07-08 Nursing Note - Wound [id number] 600809 [id number]#1.00CD:[address] [facility] Physician Orderon 07-08-2023 Physician Order [id number]#1.00CD:[address] [facility] Procedure - Woundon 07-08-20 Procedure - Wound [id number] [id number]#1.00CD:[address] [facility] Progress Note - Woundon Progress Note - Wound [id number]#1.00CD:[address] [facility] Multi-Wound Charton 07-01-20 Multi-Wound Chart [id number] [id number]#1.00CD:[address] [facility] Nursing Note - Woundon 07-01 Nursing Note - Wound [id number] 940624 [id number]#1.00CD:[address] [facility] Consent for Treatmenton 06-02 Consent for Treatment [id number]#1.00CD:[address] [facility] Insurance Correspondenceon 0 06-30-2023 Insurance Correspondence [id number]#1.00CD:[address] [facility] Physician Orderon 06-30-2023 Physician Order [id number]#1.00CD:[address] [facility] Procedure - Woundon 06-30-20 Procedure - Wound [id number]#1.00CD:[address] [facility] Consent for Treatmenton 06-01 Consent for Treatment [id number]#1.00CD:[address] [facility] Multi-Wound Charton 06-24-20 Multi-Wound Chart [id number]#1.00CD:[address] [facility] Nursing Assessment - Woundon 06-24-2023 Nursing Assessment - Wound [id number]#1.00CD:[address] [facility] Nursing Note - Woundon 06-24 Nursing Note - Wound [id number] [id number]#1.00CD:[address] [facility] Physician Orderon 06-24-2023 Physician Order [id number]#1.00CD:[address] [facility] Procedure - Woundon 06-24-20 Procedure - Wound [id number] [id number]#1.00CD:[address] [facility] Progress Note - Woundon 06-01 Progress Note - Wound [id number]#1.00CD:[address] [facility] Consent for Treatmenton 05-31 Consent for Treatment [id number]#1.00CD:[address] [facility] Multi-Wound Charton 06-17-20 Multi-Wound Chart [id number] [id number]#1.00CD:[address] [facility] Nursing Assessment - Woundon 06-17-2023 Nursing Assessment - Wound [id number]#1.00CD:[address] [facility] Nursing Note - Woundon 06-17 Nursing Note - Wound [id number] [id number]#1.00CD:[address] [facility] Physician Orderon 06-17-2023 Physician Order [id number]#1.00CD:[address] [facility] Procedure - Woundon 06-17-20 Procedure - Wound [id number] [id number]#1.00CD:[address] [facility] Progress Note - Woundon 05-31 Progress Note - Wound [id number]#1.00CD:[address] [facility] Consent for Procedure/Surger yon 06-11-2023 Consent for Procedure/Surgery [id number]#1.00CD:[address] [facility] Correspondence - Woundon Correspondence - Wound [id number]#1.00CD:[address] [facility] Nursing Note - Woundon 06-11 Nursing Note - Wound [id number] [id number]#1.00CD:[address] [facility] Physician Orderon 06-11-2023 Physician Order [id number]#1.00CD:[address] [facility] Procedure - Woundon 06-11-20 Procedure - Wound [id number] [id number]#1.00CD:[address] [facility] Progress Note - Woundon 05-31 Progress Note - Wound [id number]#1.00CD:[address] [facility] Consent for Treatmenton 05-31 Consent for Treatment [id number]#1.00CD:[address] [facility] Multi-Wound Charton 06-10-20 Multi-Wound Chart [id number]#1.00CD:[address] [facility] Nursing Assessment - Woundon 06-10-2023 Nursing Assessment - Wound [id number]#1.00CD:[address] [facility] Nursing Note - Woundon 06-09 Nursing Note - Wound [id number]#1.00CD:[address] [facility] Physician Orderon 06-09-2023 Physician Order [id number]#1.00CD:[address] [facility] Procedure - Woundon 06-09-20 Procedure - Wound [id number]#1.00CD:[address] [facility] Progress Note - Woundon 05-31 Progress Note - Wound [id number]#1.00CD:[address] [facility] Physician Orderon 06-06-2023 Physician Order [id number]#1.00CD:[address] [facility] Procedure - Woundon 06-06-20 Procedure - Wound [id number] [id number]#1.00CD:[address] [facility] Multi-Wound Charton 06-05-20 Multi-Wound Chart [id number]#1.00CD:[address] [facility] Nursing Note - Woundon 06-05 Nursing Note - Wound [id number] 561781 [id number]#1.00CD:[address] [facility] Procedure - Woundon 05-28-20 Procedure - Wound [id number] [id number]#1.00CD:[address] [facility] Consent for Treatmenton 05-02 Consent for Treatment [id number]#1.00CD:[address] [facility] Multi-Wound Charton 05-27-20 Multi-Wound Chart [id number] [id number]#1.00CD:[address] [facility] Nursing Note - Woundon 05-27 Nursing Note - Wound [id number]#1.00CD:[address] [facility] Physician Orderon 05-27-2023 Physician Order [id number]#1.00CD:[address] [facility] Multi-Wound Charton 05-21-20 Multi-Wound Chart [id number] [id number]#1.00CD:[address] [facility] Nursing Note - Woundon 05-21 Nursing Note - Wound [id number] [id number]#1.00CD:[address] [facility] Physician Orderon 05-21-2023 Physician Order [id number]#1.00CD:[address] [facility] Prescriptions/Work Noteson 0 05-21-2023 Prescriptions/Work Notes [id number]#1.00CD:[address] [facility] Procedure - Woundon 05-21-20 Procedure - Wound [id number]#1.00CD:[address] [facility] Consent for Treatmenton 05-02 Consent for Treatment [id number]#1.00CD:[address] [facility] Multi-Wound Charton 05-20-20 Multi-Wound Chart [id number] [id number]#1.00CD:[address] [facility] Nursing Assessment - Woundon 05-20-2023 Nursing Assessment - Wound [id number]#1.00CD:[address] [facility] Consent for Treatmenton 05-01 Consent for Treatment [id number]#1.00CD:[address] [facility] Consent for Procedure/Surger yon 05-06-2023 Consent for Procedure/Surgery [id number]#1.00CD:[address] [facility] Consent for Treatmenton Consent for Treatment [id number]#1.00CD:[address] [facility] Multi-Wound Charton 05-06-20 Multi-Wound Chart [id number] [id number]#1.00CD:[address] [facility] Nursing Assessment - Woundon 05-06-2023 Nursing Assessment - Wound [id number]#1.00CD:[address] [facility] Nursing Note - Woundon 05-06 Nursing Note - Wound [id number] [id number]#1.00CD:[address] [facility] Physician Orderon 05-06-2023 Physician Order [id number]#1.00CD:[address] [facility] Procedure - Woundon 05-06-20 Procedure - Wound [id number] [id number]#1.00CD:[address] [facility] Progress Note - Woundon Progress Note - Wound [id number]#1.00CD:[address] [facility] Correspondence - Woundon Correspondence - Wound [id number]#1.00CD:[address] [facility] Consent for Treatmenton 04-01 Consent for Treatment [id number]#1.00CD:[address] [facility] Multi-Wound Charton 04-22-20 Multi-Wound Chart [id number] [id number]#1.00CD:[address] [facility] Nursing Assessment - Woundon 04-22-2023 Nursing Assessment - Wound [id number]#1.00CD:[address] [facility] [facility] Nursing Note - Woundon 04-22 Nursing Note - Wound [id number]#1.00CD:[address] [facility] Physician Orderon 04-22-2023 Physician Order [id number]#1.00CD:[address] [facility] Procedure - Woundon 04-22-20 Procedure - Wound [id number]#1.00CD:[address] [facility] Progress Note - Woundon 04-01 Progress Note - Wound [id number]#1.00CD:[address] [facility] Correspondence - Woundon Correspondence - Wound [id number]#1.00CD:[address] [facility] Consent for Treatmenton 03-31 Consent for Treatment [id number]#1.00CD:[address] [facility] Correspondence - Woundon Correspondence - Wound [id number]#1.00CD:[address] [facility] Multi-Wound Charton 04-15-20 Multi-Wound Chart [id number]#1.00CD:[address] [facility] Nursing Assessment - Woundon 04-15-2023 Nursing Assessment - Wound [id number]#1.00CD:[address] [facility] Nursing Note - Woundon 04-15 Nursing Note - Wound [id number]#1.00CD:[address] [facility] Physician Orderon 04-15-2023 Physician Order [id number]#1.00CD:[address] [facility] Procedure - Woundon 04-15-20 Procedure - Wound [id number]#1.00CD:[address] [facility] Progress Note - Woundon 03-31 Progress Note - Wound [id number]#1.00CD:[address] [facility] Progress Note - Wound [id number]#1.00CD:[address] [facility] Correspondence - Woundon Correspondence - Wound [id number]#1.00CD:[address] [facility] Consent for Procedure/Surger yon 04-08-2023 Consent for Procedure/Surgery [id number]#1.00CD:[address] [facility] Consent for Treatmenton Consent for Treatment [id number]#1.00CD:[address] [facility] Multi-Wound Charton 04-08-20 Multi-Wound Chart [id number]#1.00CD:[address] [facility] Nursing Assessment - Woundon 04-08-2023 Nursing Assessment - Wound [id number]#1.00CD:[address] [facility] Nursing Note - Woundon 04-08 Nursing Note - Wound [id number]#1.00CD:[address] [facility] Physician Orderon 04-08-2023 Physician Order [id number]#1.00CD:[address] [facility] Procedure - Woundon 04-08-20 Procedure - Wound [id number]#1.00CD:[address] [facility] Consent for Treatmenton Consent for Treatment [id number]#1.00CD:[address] [facility] Multi-Wound Charton 04-02-20 Multi-Wound Chart [id number]#1.00CD:[address] [facility] Nursing Note - Woundon 04-02 Nursing Note - Wound [id number]#2.00CD:[address] [facility] Physician Orderon 04-02-2023 Physician Order [id number]#2.00CD:[address] [facility] Procedure - Woundon 04-02-20 Procedure - Wound [id number]#1.00CD:[address] [facility] Nursing Assessment - Woundon 03-27-2023 Nursing Assessment - Wound [id number]#1.00CD:[address] [facility] Nursing Note - Woundon 03-27 Nursing Note - Wound [id number]#1.00CD:[address] [facility] Coding Summary.on 03-26-2023 Coding Summary. CD:[id number] Ww+PG hlYWQ+RN2SRSHpX84dkIJdoE9 jH5AMWMzYQeleRLSTPRoQNfGb hqFzTO6laRSqHMBf IC8+RE6eBJPiBhejhRSpu5W7k EC2R79gid5cUKroiPY3STDpQw Mpcnvsk0omiGs5QOoaChvoLdM t NSVewQ82TVH9oD35Dm84lVFyc GXqg3ziiLm4DwOfTYIcVVS1dA euSBiqb6RkBSOiX99olPSbf6Q 6 GYCggKqarZRjWrElvTA7vO9uT Wlneuudv3evovrbWpo9af58rA Ffn1Z9mQW8R3JwiqO6IRIzvCO g BiogmWDDbA7fkmmxr7djrtseA qPvEEKrZOt6UKf4XZOyeGaiIp VzQJ34OZW7XBBbcbQsJ5GtIRR s cBxtUuD4t7D4Xa5QX5YWGeoqY 1VNTUFSWTwvdGQ+JN07vd37X2 ViVqtnBbs7UBJvTQM4lZW2vQ8 n NTZoFLzil3A3nAQ9U1NzpyLxo c0nw1bmLVSiFEhwX12qcDIsy3 W4RGAxhZZ4IQZwbBamWoXfwX4 3 Oyc+XTRwnVrab4BvMigwm2acs 6nkvTv5PzevABKfhbOogHmrON L0z9OoBn6pOLTkeCE6eIM7dR8 i OuImEgU1IDquE955QuMtdABfO jjoF69jZ7MpkEQ+VFLoAqg2EC PzrAlbIZ4xQ7UxCGMojzuhxXB m mBufAG6fOINgksvoEMYrcD3jC OPqR1t1JiMnUpY1LQczN1YoTG UyooofGk65iJ4yXoLoAqO3TZy u O3DdatW8CDKmgEMkJFrxIBS0M 39op0G3EXGsGHWgJLE0cBM4sP 1hbGlnbjogbGVmdDsgdmVydGl j PQrrSKcyK503DEHlhHawYgZxG GluZyBEYXRlOiAgMDQvMjYvMj AyMzwvdGQ+OIAoWWI3oVmiBFB n lAEdILgvHd6vgVlmtXntNP4vM RXhufynEDWhaA0eBEHixFPurB boNJ5oSDNdygywc466MuOfSGD 0 OYLelHNeX8IaaS5tVmGwFZKzK QUtQ1TpkMXmXRjmM683OFbuSo K4QWRlkrTiX9TxFMAtvCnnHpE 0 m4T9Fz2My1QabdsnI5OxrPNzK cLuJrivWPe0I3YeZkmbpTK+PC 79GRZdEN07ADy4WFO2tBwjCAg i SHCvF4XkdM7bQdNkDAKtUQDyL yc+PHRhYmxlIHdpZHRoPScxMD BaSjRijIzgHV3tEl1uCJKyLAU v sWawiDVyNaMds4teBOQuQImbB S8hoLoaS3BgdYB5CWGdi0w0Er 76K44yL5HmsEY+KHHvuJD5aEN 0 wJ1lEdDmBvH8UAskZ311VuDbf IGkIlgql8bfu8kcxPb1VyU0NI XrbfNpbNxrYAY7v3GhSc04Y93 s IHdpZHRoPSIxNSUiIHZhbGlnb n3kvN3pPd6+RCKryIH6kAT6bD 9tJjPdRwL5NLavF650RuXzzZX v Gvuqx9awv6lqlMk9MwEtCVMgp tKnpGhcWKH8f9AsSc60L0UmoV yeq3UbVdm3lz88gVVqp3D9bVJ 9 Y2OwRQIhpebfnFUiyJguDC0rN CRroarbQDPsjP4cGFNbV3d9Ts ArOaT5DMkyV7ZfgqG3WGUypWC g KFVapYJBaW4zdbbpw2lwlnhjX nJbFMPuXYa5IAh6GFChdGmmPr GsTQR6RtW8OJO2dWBjrC9sjZd n anbtvF2eAsy+MPB7tVOnqGEKR Z8kPxrcmVD+AQXyHYR0vXqvQR zfCUMijC9uZQYkF2q7SeAbTlM 1 WLajA0EmvgP7ZOSorXGgKQRyr BRGgI7knwolo5ziasdeVjOhAP JgZDl5UOx5WNJfbOvtTnErVJM 0 RpJ6DRP8mTBfcE3ofNaspozwi G9wOyc+QpxyqRmrCRN9QUj1C0 QmCtq9EAGrcQnzZX7tyOKrFNh u Io1jhOydqVovCY8jDHDcbkumw 872GiVqj9whMGYxzWLhBSeeWX T2U21nh0N7KLRhMWAvVSN8aVC 4 hN8goSihpbjbnIMgeSgnpxZyu QzfORshNXkgC296LSFllWbyMo RmZRe4P4HmMsv8UGIvpApwGU8 n xOBhVHmwBp6kgIoyvJwgNS2sJ NJbcybpd169FgMnr0myEWZquT DzEDclDTC0V01xu2J1KPUrTUJ w HWQ0sNP1hM6jgOmdbmndgNUtg IlxlxBxnObhLEajUDnmD596DD TsgTsfEkKaiSi2X1KwNzc2PZU z lYlaJV1oeTDhQOnpCt3pkZfwa HmwVA7iAIEghglva435FaHqp4 roIJEroWWiIZwyPOT1I31an8T 6 NWXaSTNtVHL5gMH5xO7bzEdvx jogbGVmdDsgdmVydGljYWwtYW clZ779SFMmoQcpDlCnhAhsflC g MYquAYv3F7YnDkihdJJ+PC90Y LMoLN25oVCvhPIdy9qexEe4Vm KuXALcUMQ6uHjhCWfbw9OnKMD t N02tjIKae6M7XMXusWwpoHRtB rVirAA6jY1bCCksbazto9uyfs hmVtubk8sqax70cV65D48iXBy p ZHNwYRNrUBKqCRHyuTggdg4xh G9wIi8+ESCpbFO0hDT8oA1jCS PhQpU5BJohP580AaCihXJjGbq j e5iut5ddpAw8NbC1SUWybzTmj RuiRIK7l4UnTh24V58dJQbcHK LzBANkTUUaVFEdrNxbtk6auT8 w Ii8+AOEpgVP4lEK3aO2jCrJjW wC3PDfwF088IfEgeDJdTbbbY7 6vQ1JonDR+QOYbRfn8GNCnsDl s LK4mnBZtWDqxBf2xGOE3CpAgL wHlVUdgI8NzJQGhfuryarebpX M0HYAmZNZxqY04Ve4npBubYDN w mYXQmP7kxmfqj9zvshupErOlV VQnVYw3NFl1LYYciQmcWlDfLX K4CbN6FXO6xWBqfP3shCrfmwf g hE8yJ0PqNTHaivcvXx91gR8hR qSvVcV7LFkuApi+VEFOTkVSLC GAT47LSMXbNQnoeRE+PHRkIHN 0 nRjuVNdlOMFyoP3tKXQdN9n9E mVeVoD0KWtlI5OmGQIdwdtrZo 19aH9bJdLyZvA9GNjdE0KqwdM 6 GYGoiHLyNGygLEM0I34ad9U4K WRlNRCmRUB0iUT8gI0siTsefu ogbGVmdDsgdmVydGljYWwtYWx p R886VLYfmGerTuUxNhB4ImN7U Sp5O3TnHxj3HVQmrKpnAJ1dzL JwYDgzDk2eyTeiaQaeHT1bLJE p vqxlAAJqtI2xVXLrdFMazXbnA Q5nICChoomzh393BiPiSYE6IF HmfZRyB2LtyS3qYlIdDDIoQMB w Y8EnfZBiMSljA021NXulNbM6G WYjhyCcZ5PcCBPoaFbeIrN0o2 M3Ez59ZGTCHJQkfibtbUT+PHR k GJP9hTnzHRkyFPUabC4dYOQvL 0t4JmTkQpH7MCxeF7RtAAGaut wgOt41pD5pLfImYgZ4PDneB6B v phF9MVYnyUUkEIikQZD3S41uk 8R3TIIfVURaANT0bTQ6xE6qaO lnbjogbGVmdDsgdmVydGljYWw t CLqrN199DUFgmCurCh7xiFL6V 6UnYqv4KZClcHlmSW5laZEbJR xgWm6feGcinSzgIG3sWPDdxup w XEEacF9eRFHcxSHmrPaeLW7xR MMswqkhh890IaSvZQW9GEMbgQ HqF1AnpR2zRkNxAAQsXJKnV8F l qKMtWScjD507ZFsoIhH8BZYfb vRdM5YwJUPkmXhxKqY3m0Q4Fr 7TrBBcHWRjEK35FL52AE52F2Q y PjwvdGFibGU+PHRhYmxlIHdpZ TJgIVbqKUFmPaOtfYerKN9sUh 1eUSCgXDDjaPxywEFuVbRbt5q s MRWuSQtjJP1rlRreZ2LlfVJ0A YXrg1f4Sg77M58uZ9UrqPR+PG BxfBG6wLT5eU1cEvUeGiF2ZDb p M339JaUecNKpYwuth4wti2urk Sk3VnZjZVHlesQxoEjsKNY7y0 QiMw82F09hMEyqRGRjQNDaRVH i YRAloTexav2tkD7eSg9+PGNvb IR5eMJ5hZ7lOmEwKkF3PMcuI2 07JhIhnAPkCrnwR64rI3YzzYQ + XHZoVoi4JQMsoXdbPY5rfIKeI KdjXu1nLBX9DrNwExWvKXflD9 WcBWIezcwrlikexLA6JSDbEAG w eT63Vm5jlTaqGc4qNYTrQEP2S JIuoVQcX5EsmU0oTxFpOERjGD OjE3UzxTHzTVtiN425CJucUbS 7 PBXtkuEhF0UfTBXtiYwiUuS3r 0A1Va7ZfYlmaWGxMK9wZsVyVE l7C2SsAfy1GBLraMaoUR0ezQU k FOjkPu3bbHjpxOoxOJ8jONExd ecxo271WhRbi9omLROfmVJiFV mgVLB5C48ss3U4YYIlZCFyUZE 7 pGM6eT6snQikgmqmeSFzqHsaa wAezIfjCBscDNokL239IHNhyY ijKxTYLcs0A0JkYxm2ZFTuqTd s UE9lpLJnAAllPu1twTuzjJvwU Q3gAZHjtmarl649VtPgy8hhZS EysDWuPRllNRU1T16jm9G2DJL w YOKrNCY2yKW1pW0rkRtcmnvdl GVmdDsgdmVydGljYWwtYWxpZ2 73PKGdzZueQk5YAvx1W9TsNyc 0 TPMbvJveAW9zxSAkFRkmKh2ff DjpdYjpDH3vBIVnesyho293Nm Gom1ojLPBskTUzBEssLKI3L71 s j8I1PVMyCCGnVOX7gZA4hW9bi GlnbjogbGVmdDsgdmVydGljYW osBBruO534JJOwnHkvAzDwfUZ y OjwvdGQ+WW00bi95N4IoHretD ty4VTDcFZD0gLP0mR0qEGDoFE fkn5N0qBU7G5JcldYkxc5tc3a s YXBzZTog (more content not included)... [facility] Consent for Treatmenton 03-02 Consent for Treatment [id number]#1.00CD:[address] [facility] Multi-Wound Charton 03-25-20 Multi-Wound Chart [id number]#1.00CD:[address] [facility] Physician Orderon 03-25-2023 Physician Order [id number]#1.00CD:[address] [facility] Procedure - Woundon 03-25-20 Procedure - Wound [id number]#1.00CD:[address] [facility] Progress Note - Woundon 04- Progress Note - Wound [id number]#1.00CD:[address] [facility] Physician Orderon 03-19-2023 Physician Order [id number]#1.00CD:[address] [facility] Procedure - Woundon 03-19-20 Procedure - Wound [id number]#1.00CD:[address] [facility] Nursing Note - Woundon 03-18 Nursing Note - Wound [id number]#1.00CD:[address] [facility] Consent for Treatmenton 03-01 Consent for Treatment [id number]#1.00CD:12 [facility] Multi-Wound Charton 03-17-20 Multi-Wound Chart [id number]#1.00CD:[address] [facility] Physician Orderon 03-14-2023 Physician Order [id number]#1.00CD:[address] [facility] Procedure - Woundon 03-14-20 Procedure - Wound [id number]#1.00CD:[address] [facility] Coding Summary.on 03-13-2023 Coding Summary. CD:[id number] Ww+PG hlYWQ+LW4PTDFkA10abDXxuL4 lJ2MEATlTCvgoWZOOLErAZmXb qqHrYV4ekHJlWMBh IC8+AY3fKNWqEfpgnEWvy8M5n BX7G78syb9wQPgqkXZ5CKQuYb Gaqvksc0mfhZl4LHbnTekxUvN t IMPixW05AOR6rD71Zm45nQQaw URmp0sugGt2ZlXfSDNlLPD3dY fwBIcax6EdSSSvH56gxEPjo0Q 6 JKKmjQusjDZhPbDpkWR7tX1kK Iuvsammt7qifbwbYts7qg35jC Xsw1C1pOQ0V2TcsmP7MVErjWX g XakrpMFOeK1mhxbjz2zeladhS gDhKUAwVPq8NKd9KKFbuHaaTm XkJE22IKL8XFAumuEgS9KqNMX s oVgxVrV3b5Y1Yu0OO2WFHezgE 1VNTUFSWTwvdGQ+HA89gh71L1 ZxNzjcTqa5JDWoXIQ5zEN9nK3 n WYHzEYxad7A6yGV7I8DyesLzv x8oa7clYZRtGTpoU33zgTJas5 P4TGHfhZH6LITpjTaaQbMttJ6 3 Oyc+BLOdrDyhd5JjPqiki1pix 6xwnLk8YtkoONNtfiQvqUevLV L5w8HqJk0iEIBwhTI9tDQ7nU6 i IjZzQrC0OLghP935GlVkzKMcN sdcA81hW2LbsCR+GXPjWwc0AT BooWvpEY5gM1RgJZRbylatjNW m dZftXK8iEQNxkbwfTQQllC8dI LVgH3b0IxBvSsI2UOlpG5LpLC RlnmjeRx60bA4fNhTnMgD6JJb u R4EuzwO0WKIgzRBjOUzlWOG3B 05bu8H9SKShYCJfMKW1uCK1xO 1hbGlnbjogbGVmdDsgdmVydGl j QXyuLFnmG596EBOagKcaJzThY GluZyBEYXRlOiAgMDQvMTMvMj AyMzwvdGQ+EJMoNZY1fYjhETA n wYKdWNgsKi0yuIunmDtzPK5rM KMjhxwvBCPdoF2sDOXiqAQgtZ qnCW1nZYSussune713QnYwLSY 0 OOReaMYtO2FztU9cBnUwMLXtR RPsX8WslKNnHToyW670SMdgYm X0QJQnrjUbO1TsOCXimJaeSoO 0 o7Q1Tt5Qf7ExtqgxD4FqdRUgE vWvNumoYAa1C6IaEfknyMR+PC 55OTNlDS54WMg9NES6kVnaMCm i OJRyT9MuhR8kHrKqCVJyNDVkW yc+PHRhYmxlIHdpZHRoPScxMD DfBzZikAhmOZ6yMj8oDHCxRBC v cZpthBKlImWbk8sqXSRnAOitE H1meMkgY9QrrMU9EPMsa6p6Pv 12L51hW5SccXI+GOBkpEC6hCJ 0 bX1lMjTnZeH5TAtuE646JpVgd NYnXjpdy4fus6skrMc0JpD1CR QckhOpnPfzTSB8u1QzCw73D61 s IHdpZHRoPSIxNSUiIHZhbGlnb t2vnP6cYq2+TSNmyRS2vAE3lC 4jThZpGbE4XAhnL247AfUgoZU v Jqcrj1cch8vzmOj0XcLeEGTfb zVvaPapXSL7x5BqPz85A3PgfV rim4WiDqj4os64jAMef0P2dMR 9 W3SyUYVmkhkyhGIepRwcXU1hU VNyxvlhBPKbqE7aHYCiZ1n4Yi OzDdN7MQozQ0SamlZ7UOHqmCT g QSGceSGDmX3jybxxk7padabdY xLjSKOySEm6DEg2UWXekSslCk QoTFL8HtB4OJK8rFIfrB7dcOk n gdvqqV5cOox+GOZ7uQTkmSWVA W6gHnqaiRV+WHOxVZL1hNfuHO laPZRqzS6kHQXrC6c0YyCdIqV 1 REadV4RqpwI0EMQokHBjWSAls UYUuV7acmukl2yqvszhBjAaRQ RgPTl5GWs7WGMwvIjgXvMeXWN 0 IyG4RJC7nXXtjS2ljXebulqoo G9wOyc+WuqubMwqDAF9CLe0M0 GeUzp3LJAjwTylNN2koDRsLVc u Yc5uvSdpuUphXM6oOMSpkahxk 663MtDci8exJLYehPRvMImwBJ V3A07so9O8ZANsWBMaQEF2zUT 4 jR1jdQmnhkiucTMrqAzjlbRyu CkoTDjqPOicG039CIWxjAyjXf QnEXm9X6PtRrj2RXUcrOyxXF0 n jSYzVDnkBu8xpLubxNhjBX7iF CHgppolm377XqJza0jrGVQkkF CuAAkmNMG0Y29ou2Q4GNPcTQF w VPX8sQG2tO0foJclzjfldHVko FqewgCacRzhZBvmPXawJ362UP CyfYmyArZnuEh6J3TgQdd5NJT z oDykYK0saOIhEXxqIx0ibJdnq GsePO1sFBFngdfdl692XdUdw0 ioLFZmnIGzXTjiFRW1O13ka4L 6 KRXpUEHeJPQ4oQZ8lO3gwKitw jogbGVmdDsgdmVydGljYWwtYW vwR066FQBylGsmEbCxeMrycfW g FHyvNMs1J2KxYabgdCV+PC90Y FQdBX08wJHumMFfw6ygaJb2Zr XyWFKcUMW0hMswNFqdd5RpPIK t G91pvWImk4X8GNPklGvdiRHnW xUtuFJ0hI3zNZxhxlvbv8cjry siRfvzm4lmtu28jI05O04dROu p BENbDYJsZXQbYGBfqFehyc2qy G9wIi8+PRLoxXK8qYD2jZ9mHG HhGzR3FBinU492VqNptNDbJvp j n5dtp9tiuMd9KmS2KPTdtjIma JfuJXZ7r3AfEb36Y13hXLcmAK SnDERnQUEaQLRiqFirkq3qmD0 w Ii8+BPMtuQB2uQR3hD0cDaBtT zN0DPzoG231IcSwrRXcLlpeX9 0iK3WfrKY+UUZsOmt2HNBnvYz s GM2knYAqQLgiKd1cMHF4OgJzI zUpAEllY7VvRDMcbewawpgixI Y6HDQxTBJooA08Ek9ktQzqKJU w nOSWdK2noaxnu1syoravUyXhC WKvJDf8OEj9BFAxnDsaUxVkKV A4BzJ0UCV8uLWuiY6lnOqrkrk g tP8bG4PnWTMcgxkvCe16jH4eC rHbKdA4OJpwLny+VEFOTkVSLC WVE05FKRTzGHjibKA+PHRkIHN 0 hHsmUAphPDAghE8fKTHbB7y3D qXdVbK5VDvnF8MhYAWkzjzyZh 75kO9cKbVcLmE1GUgwH0XnanF 6 DCKifQPmQGvmWZW2I54qv1E8H WCkPWDbOYV0qNB4aX3vhDeiym ogbGVmdDsgdmVydGljYWwtYWx p Q881EVYoxXsvNlIhNwH7BaE9W Yi7X8GcVfg3ICXeuWlgYU7dbI HoRFarDk6pkCvpoLzfCQ2oNCX p bpgsNXLibH5tEZLrnBZkrAfjM Q1cUJVnxfvie838QcLfRXW9GR HkuKVkL6MroA6nEwIiMTMsEHW w T7OhaAUiKPwaC797QTivOtP1Q CFrfyNkR5KhLNOxpXjkYkT5i8 L8Pj25SVIIDYBvrvstnZG+PHR k GPU2oEtbINoaUXDodB7xWYPqZ 9d4TyQoSiS5EYauX2KgIWMewh upRp14yR1tZhPwDeR0JSjuB1Y v pqB1VKZxkVDpFTkuNHI3O81ye 0T9WRXeERZfVWW7wXO4qI4uxO lnbjogbGVmdDsgdmVydGljYWw t XHluO884EEDtlIgcWb3uvNK1K 1AyYsq2WEMzoXdwIT7bxXVyYH caWd9grVkovDziEC2zXXWrevw w YOQcoD4hWFMldLZwhVeaUW0tV RGncnanm238KiNkTDN1YUZieW YsT8FspN3nHhCyKVHnBPXfG4G l gAXxNAtuY722LRexCeQ2BKDvv qAtI0LuZIRwhDhoOnT1j0N2En 1QaWYuGTJnQW27AC26IU41W4Q y PjwvdGFibGU+PHRhYmxlIHdpZ KJuJDrrOQZpBqZsdGceJK6nKa 3sASWwVYVeqYixnJWsFySbs2u s XRPxAIgzZE6imGzrB1SrfAP6E SDuy2r2Qf46X91hI5SqqIH+PG LznLL7fNA5hF4xNwHgFhO6SEk p G430NsDlzTBcTosrb0zjc1lwp Vq8XhDmNDDnbpYveYvxGWC8c4 EdXe13Q57oCEsuDVLnZRAcYEI i KSYytTfupq1avP4mPd5+PGNvb WL1lNV2iK4kQzYsGsH6HBilJ6 12BlOkmPQqAxlqY36qI1XdyER + QOQiNcm5SSVhdSaeHS9jgGBkT ApcBy8qFLY7HsLgWkXkTGkqL7 FuHHCotcabzefvuBK9ZUYsFKB w hD76Ii0mlUizQp0yXOTkJXI4G KYbdXVtF8IvyJ3oWuRcGHFhRN XcR8ApzDTrHNdcN676RLmwMuK 7 PSOhavRbC8DiPZYinJmxHqB2r 2U8Gv5YlFfppADrJH4wZwAeVE k9Z2LeLzh4JNOuzVjoKU2zgPA k USahOn6ueZpexLefIL3mBUThg gytm625PxRwd3jpDSLkxHUjSB fmXMZ5D38tz7X8OFItPLIxEDM 7 tBJ0cJ5ylSosgtkcmYWrbUdjn tDrdJhsQInlUKbrV757NWCsxW bdVcLJYhz1R4XiNpk5HOBxrPh s FI4suOXtDKlnVg3dxGtiqUmyH L9bJXJfysghb453OuWlq1jjBI OoqRBsXQpeORD7K87ap3Q1GSA w RPFfZOR9iWV5nT2dbGulhbszq GVmdDsgdmVydGljYWwtYWxpZ2 43TUVlbVwwTx5YBpo0M8YwDfi 0 NNZzzZaoOH0rtJCsLChjPm9zw YdhaMhtTU4bFYQnnmwac957Du Tja5coORWreQAuBOjfNNU8S62 s r5W2NMFjTTWdQYM3zRJ3fU6ye GlnbjogbGVmdDsgdmVydGljYW epYNqsP102BOPqiReeYgTftSM y OjwvdGQ+OV78ir80T3JkLecgF is8QBEnGEU1dCB5bP6fVZQgCO qjh2S1tOD1T0ZpjaFiff2jj9w s YXBzZTog (more content not included)... Normal [facility] Multi-Wound Charton 03-13-20 23 Multi-Wound Chart [id number]#2.00CD:[address] [facility] Nursing Note - Woundon 03-13 Nursing Note - Wound [id number]#1.00CD:[address] [facility] Consent for Treatmenton 03-01 Consent for Treatment [id number]#1.00CD:[address] [facility] Coding Summary.on 03-06-2023 Coding Summary. CD:[id number] Ww+PG hlYWQ+ES2ZBXWuM15inMBsfP2 hV0HZBMxWSpsoGZFBCGwXOjEz wzYaYR9gcYVvTBAa IC8+IX5jWBFbKchluMIui0R4x TT1R23jmu6uEUokkDB2ROWnNm Uboovpu7tpcFy3ZXjeEtmnVmN t FHDozX63RBF8oO88Jl27rVCza WMje3rloQq8EtGvPYShFJF8qX cePIexe2IzOFYtN57zaSJcr1S 6 VIOhjHaxkVHsIlSiuKC9mW1oP Mogijzyp8vxhizeWil9qy98rB Fyh8E4dBX7T1FaglY0JXTwuRA g ZgiifFXDbD5yssptt2ounivzG gRmANWtABd5RXn7VIUocXtjVn WoYZ08QZP5HXZraqAnO8FdHAO s rTkuSvG9d6X4Uc6BJ5PLSaijK 1VNTUFSWTwvdGQ+BF28tk76O8 TiVomuSki8LEJtMVA7vYR1oU3 n WEFvISnrg1I6bLA6R0NinuVrv c6uw0awJOOqEOkbJ02hkMMiw7 W6ITKlaYT7YNMnvEchYkApiC4 3 Oyc+MQRkdIepk6EvFjuhe5cxu 9reiLi3LyoyYXWjgmLcwWoiCA P8q8OoTl8yZCQytDG6eXD7oI7 i PjRtBfG9AYmiR304OzXpoGUkT xbrC65oC4SxfLI+KMQbBjv8WV QovJzjMO5qG0QlHGCmdnejjBJ m cQteAM9hVBKkgocuMZFhfX4sH JVjH7e6MsPvIiM3QQjaI0KmJL DbrtchJo76hP6qYsCtYyO4HFq u Y9JjmzJ5AZVcgEGmCIepOQG0Y 08xs9T1HFNoLZJmUEX2wHY2cI 1hbGlnbjogbGVmdDsgdmVydGl j AIxgANubK640BHTcuFaaYkKzU GluZyBEYXRlOiAgMDQvMDYvMj AyMzwvdGQ+JVEnZUC8bUfjILP n kIPiNZitLi2nvJdtvRptYH9iC UVxekxsFYQeiX2eOTBtoCOdyF kcVJ9rEWYltaqjz534WpQrQJQ 0 KIYwtDNpH4VmrP5rChRgIUKmD TFfA1OvnZVfZYasL123CSlbTv Q5VWGzmaDiY8AlTEBlcNfzCrT 0 k9L3Hn8Ea4XktfdfO6JaxDDkI rTzEwbpPSv5A3NrEvyicOP+PC 95MBYiGO56BQo3COX8sRbnGLu i VPHdN5JjnG0tIpPaCSUgVCJgP yc+PHRhYmxlIHdpZHRoPScxMD YuKyDadNvrKK0nLf9mFTMiEIX v qLkzgCGoThWob1toVVGwJMtdB J6syBdvN3GhmXG9RPTto9n5Aw 50K80eZ1DnsKZ+HDVllAR1bTL 0 uQ0kZgVhOiA6ZVsbA727WaEmh OGqTxkvp9vse7yadXc7RcL6PS CcppYlnBouKTH8q9DwPh78D70 s IHdpZHRoPSIxNSUiIHZhbGlnb r9icT8yVm5+HXTkuMN4gMF6mX 2rSkZkDzE4RPcgI348NaZjiUF v Cdzvm7jvl1ropVu0EkFvPCEwc lFxtWqjPBT4c7GdYk85T8VpzH gfz9SzEwc1yq96lGRro9D0rRW 9 K7MjMAGfdsowxOUgoLhqLW2qG BHopoyeTISczE2kDUFhC3e0Gx DpZeN5MRabU7WiqjF9NQQwfCP g UFOjhMSDjU6ocvigt6vogoaxV sUoKCAjKYx1AZf9NPSdiNxnQc UrXRO0ObH7KYT0oRWckU8raXk n jtqbgZ9qRya+BKW0vJJaqNVYL Y7zMrjmdTY+ZGMtYOX9uEjqXH euSTPmlK2aLAPbO3m1TiVhXrP 1 IGrbE1OesxI1GTMxpVSwQZHif RLWeJ5lxoqrc4klyxrqLeUwDR JkAYd9NRt6VBGvuDgdIiQuWKT 0 AbT7AJT0hBUadD3faGphqbwpv G9wOyc+TujsdTkpEWW6MBd3L3 CyCgo7UQQfiRijKS5uoFFvTRd u Ls7ibWjmkCqvVC2wVQBqzgtws 728OdUrd8biVZStnAKgRJjqVE I1H57md7Q5QDJrHPEqTNM5mRV 4 qU9tnGpvihjegLBahXvvocJvd HbmBTloEEipE112VJQliCguIw AxUYf2K5IcOuf1KISvyVtlDS8 n zIIaSAhkMm3qeRxfcJokSD8qN SRykeeoo800EjSvk4rjIXZotI KlUKzaQKL9R16sd4N3WUOsDVS w AZM2hUR3wE0mwQqzmgthdYTyn BrjttBeeGbzJPpaIGynX240GL NeyFweSfXmrRi6L7BzKvs4EOZ z cPcgUB2kyKHiKJeeUv8uvMmrq YltPX8tRQZsismry031EcAqm7 csDAWqfLVkPVulNUP8T68zh2O 6 GFJiNFNvEYK6tOY5aF9tlRrcv jogbGVmdDsgdmVydGljYWwtYW whW232UHHhxJqiBpJgvInelmG g KDdcPWr0K6OvGfobhRN+PC90Y RPeGM04gVSbfLXcr9ikuZb8Go GoHRHuQFB0qZubZXrpq1TlYYA t S57roAVzv5P8SFCbcBfblLSrZ wUauBC4dH3qCSrtaqgkq6bfns okJhpif6rpvs52pR07J73tYUr p PPXmCVAaTPIfPZSxiBarsz5rc G9wIi8+IMMwiJM9mLG9uV1vHV GmNwI4KEjlL848AvGccFNeNmd j w6cvi5gxiYb0XzJ4BLHmhtAfx CelIPO3j2GwBc87R53cJKbqHX CcBQZgIMHeOOYelGnldy2xiJ5 w Ii8+IPBwbEG0cAQ0uF9lXyIaE kU2AKlrB108WxWqjHOrKlotZ2 8bD2XehSK+FMKzZiq4LFWjkOj s TA5xpFQpGNfaUs2zVUI1SyHnX vIvOLocC4QsBQAduaggdlfsyO E5ARBfOODayG02Oy1cwBqsMQB w rOOXxW5ihhind9pnzquiUyHjY TZuONg8HDj8HWTcwGkqUgThYI Y9SiR6EGV8mPWwhT8tiRmcyci g gS3tF9VqPDJaykbcTc96lR1xV dOdKxX3BBpkZir+VEFOTkVSLC VGV95BNXKwSJmnrMP+PHRkIHN 0 oTewJGkePHGimN4eMKYlM8j8J gToGhI2VAxvZ1YnVTJiirwzFf 08kA3iIlRdOvH2LZopP2NfpjL 6 KEZpxCFwXDuzPDY2S30bc0U2I QWhWLBnSZY0oFQ7gX7fqZqnin ogbGVmdDsgdmVydGljYWwtYWx p O048KYRamJyjVvJfBkQ4DyW0R Qc6H3YpSvt6NJAyuSmmNI9rhC YeMYwhEm6yjLwvpPugFH0wXBR p sqcvOHYizC7tAFFyoDTuqKcwL Z8gOCInjpfnu358CqDnZVH8YE ZykFEzU9AfpS7rLgLiQOOoKMN w K2BscLLiZRnmM199ZCqdHcV6L YIimwUlY0NkRSZelUvyDuW3o8 E4Wa50RALMVPJogifdxCM+PHR k LRR8nNilUQbbRETkoO1uNVNiY 3x6HeWkMbU3VYfiA0GyKVQeoq anUn84lL7tNtZsXxD2QKllE3Y v igK9UVMvyOIfCLxiSCP4K55my 0D3BLOvKZNqMLQ5kLP5sD9bmS lnbjogbGVmdDsgdmVydGljYWw t BHpdU612XIUlkNpgJz3qgQQ4T 1FoWec8QCNmbHrhYC8ftWViRD jcKh8mfAfhoKazHN3wJXWbyeg w OOFofQ8kKUFuaIDnpRqhWY6qS TTrhgowf351KbUhJTG9SKCfzX IxX6FsoH2zYdGwITIsDOFzQ8H l uYQzQUwaM452SHwzEwK7LDNcz qNpX1EkSKJjxKqsOqY4e8I6Na 3IrQPhDIXcGI32JU83KN15J1U y PjwvdGFibGU+PHRhYmxlIHdpZ FSlGKdwIVOsErMjlQmlLJ8sRv 3mQUPkBZIfsEdatMLkMtEbn1p s TDNzCUcvPO2yhWtwN9NkwEH6E DSan4e9Hb56M73lO4NfwDS+PG JebKY1xPQ6bB6wNmHkLoG4GYh p D994IcXmfUNxZzidr4pgc3dun Im1TfGqBEOwblYrgZebCGU7n1 ZuMu95P10uLSveAKCcTZXmNOU i OEDwpKdchb4ilC2zTv7+PGNvb VI1vYJ7uR1sLgReOeW8ZCqpD9 86TiPsaPZkFamtK16rI2ShhEN + GZUsOek1EWRphHamAJ9pgQFdZ EwrYr8bSHR4MaKtFmAcVBwyC4 RcNDWumfuxvgauqCB3JKAxXHJ w rE71Pt7khYjvZf3rKRAoVBS1U QUgcDHhA2TloB2fDmNuRCEzDF RzH5VbmQPfOVytN385BAfuEfV 7 VOFlqkYlE9FwGBUinBhpGiW0b 4J9Cz7NgBgowAMbCX7dIgCwOL c5T0YuSth4EDOdqEowFZ3naGP k MKmaBn3kaAhreOvlAS8bLCIzb kcda027TkIko4hsAFThvAJxFV uxCNC5U24yy7G6LJPiCGEkHXL 7 wPO1yL5deJtcduhelNXjuPqij iLllMlgIJmuSBadV908DIQpwB gcWcSCZpe9M7QgKzu5SADaxWq s CG3dmXJuQWgwRw4rtTsbyEiwC D4hGEUrflavj252ZsLlj9ejWD UqvVTjFCecNRI7D44vj3E5WBO w GDWoKGR4iLT0wK8tbAqckdtli GVmdDsgdmVydGljYWwtYWxpZ2 33KWXjfMwjXh8GUxt8D2LpDby 0 ZSCpaNagMX5cbDMnLPauIg3se CczoEdzUG3yPVCarubwh331Xu Iii7cbBQKxrOKeUZzjMKG8R39 s n7X6QGRpQWRkXJX6jOD5lR6yj GlnbjogbGVmdDsgdmVydGljYW saPJeiY200LUOcvZvrVyLokBV y OjwvdGQ+LU53ze79X7IhSwxsF lg1LAHqEZE0uKT2xR0oVOIgBP dia3P8vNI1Z0ZbymFdaj0hw9e s YXBzZTog (more content not included)... [facility] Nursing Assessment - Woundon 03-06-2023 Nursing Assessment - Wound [id number]#1.00CD:[address] [facility] Nursing Note - Woundon 03-06 Nursing Note - Wound [id number]#1.00CD:[address] [facility] Consent for Procedure/Surger yon 03-04-2023 Consent for Procedure/Surgery [id number]#1.00CD:[address] [facility] Consent for Treatmenton Consent for Treatment [id number]#1.00CD:[address] [facility] Correspondence - Woundon Correspondence - Wound [id number]#1.00CD:[address] [facility] Multi-Wound Charton 03-04-20 Multi-Wound Chart [id number]#1.00CD:[address] [facility] Physician Orderon 03-04-2023 Physician Order [id number]#1.00CD:[address] [facility] Procedure - Woundon 03-04-20 Procedure - Wound [id number]#1.00CD:[address] [facility] Progress Note - Woundon Progress Note - Wound [id number]#1.00CD:[address] [facility] Coding Summary.on 02-27-2023 Coding Summary. CD:[id number] Ww+PG hlYWQ+QD6ATJQmX89jbOLkdH8 bE0XJGLzEYeooHIRMRWkCUlRy snPkMD3vpVDvQTYo IC8+WQ5zGMHwAppcuROjz0A2b FY3O73avj9fYOqrzBD7GWOwZs Lywrrhp5mqqOb9CBpqSglsTjU t XQKnhZ98VGX3gV81Hl15sTSok NRth2hrhIw2PwVvXEWzYQJ4iO quLBtkk4VmVQEiN24euDEos5T 6 NIDreDcblAAnMfAimGB1iM6pW Pibfqpso6lukfvvGvw7cu75uI Eld7L4hUT8U4UbetZ2BVOosKI g LmqabESTyU6xnhuev1lswhmdP pYyXGRlRBk3NEr0DSJhjJnaJt LfBC16DFB1ZBRlkkDnL1HqGNJ s tGbsHdE6n8E3Ja9QP2EZCedrY 1VNTUFSWTwvdGQ+RE31eg34I6 QjSqceMzc9CIEoWXS4dKG9jO6 n OLLfENdwi1K0uRG7N4EnpyVta n8dn8jyULYgHGesS77amHAyp7 E2YBSglOM7IOPoqSlcZmHyzQ9 3 Oyc+SDIclHaos9DgTrayw0fzr 1lqmRc5YbfySUFhwxQgrHobBQ P4v0SgWl6oMXFjwKO0qDR3aW9 i QoCmFeH0YJqsR372DdVkoJLyB dhvX63vI2KhwVP+UWGjXlm0GT YxnPqyZS6uN4DrYEHvqwoueGG m pGksRA9eRMZrrzlaSBSgvN7yQ DNaC6p0DtEmGvG4PIjgT6VmGA HqfqirZj91eK0dAxJbAsG0MTm u E0QhhdR8UTSgqYGmSJawCTW8S 61hn3Y5KNEvBFLcMRK5hEI0oP 1hbGlnbjogbGVmdDsgdmVydGl j SKzzJDbuG464PQMsjAsaQkDgU GluZyBEYXRlOiAgMDMvMzAvMj AyMzwvdGQ+QPBuEYM7kInxTIC n dKXhLEooVo3vfTktuHzaFQ0pS FOtzdqaHQQuxK6dLFHhdBPhrW fpMM3oUOOiogvua893IdNmFEQ 0 FEJrlSBqR4DxhJ6mTaRzFDGpT DCoR4XjmRNsTInzZ371PBciZv Y7USFjhbBbK7SxGVNjqBdiQwD 0 j8F0Gl2If2VgnqtmN2EfnPQzD hYiLlogYRo2O7PsRnrhlKQ+PC 09RUOxUM05BOp8UOR3cNalZSt i QJGrD9GrnK5aEeRbZUIaOQGtD yc+PHRhYmxlIHdpZHRoPScxMD BmRtCrxMzeWA3ePd8rTYNuWPV v vYxxgNGxKzQxx2lmRPQnSWhyT D7neMaxX9WxmUO5QDArf9n3To 94G41mI5PqvMY+NGLijMI6bVC 0 aF3tElWpTzD3TLxqL586IbDdy RDjVkegk7bhg6grbKc5CtL6ND UymzDnwLjlKUZ6i1HoWj54G31 s IHdpZHRoPSIxNSUiIHZhbGlnb l0bgT4eNb8+WQWwyOU1kND3xV 0cGaMfGwL4RGblG688MaCavVS v Gqmjr2ehz1ieoCd8YfHaHTVsn zQdsWigLDA5a8DnUf36Y2CncQ lxx7ZlTel2pr19kOOni7Y2dTN 9 N5PzGUYujwicbWPqmFkuCR4cN MRgcpifKDOxpL9fORHhC2x6Dk WaAiN4AFpoM2PnbhE5WCCaxVJ g ODTzbPQSaA1gxkojd8pktmxzY zCxCAUqCRk7JCq7YXFtjYolOp BnSYV5LqV4FWL0fXBpqM1ndDg n vrfmsQ0cRym+YEA8mMLybODLA J3eTjvtgRC+UMBfXMR5jFibFF nhYEPczG7jQMOdL9b3EkByLyF 1 WSlyV8GfraD9OCVvkFLgTIXoq ZMKsS9enqqnm5mmovdqGpAeFL ReSOw8VBd8RIGmdDgdAkLhYFR 0 HeS7SNT0eDKboY3pgNivzgxvu G9wOyc+ThyygRjrWNE8ZOt1F2 BoGkd4JSTweTxnEG6ixXEdXOs u Ir5bbAsyuGvoXT6dNCCxvnmjv 192XdMrr2vdVKGkmZPmBNduOZ S5I09eu4F3QSJzNVRzKWD9aTZ 4 pB5akGepabwbvVMgsYepbhLzw UaoMKdfKGrxT124MPSlpFpbMp JrLKq7H2HaJas5NDQevAusGC7 n yWYdLHbnOh7urAbamIdeDP1hF WAjmmhdd752MmAqn2rqPYHfcJ GxMMvxGCH6E49js8F9DMEsWTA w IDD2pEP7sQ3drXsxcdwcqJLpr AqzcrVjtBntVEwfSPcqJ000SV AhpGrbFkWkdGf9H2FyAzq5AWL z qRryAG9sqKShOTtjJa9kyMcjh UopDM4jAXRnfjdjk924SbJrl0 asALYjqZGwKNokNCJ6W17zl4B 6 JQLmRAZuHIU0yOB2gF8cnXtqm jogbGVmdDsgdmVydGljYWwtYW yiF672UQVkxMvdYaEowUkeuoA g LKykTOo3O6BwEximnLO+PC90Y UGuVZ56xMEuxQYub7ckuMa3Vz IoGGOiNEC9rFqgCXpbp9CfBLI t T14zwPKdy3X3ZGFlcCcbhTZmV sLrhOW0vT2dPQojfgqvt7kyfn biEkcyd3nnma33jG89F92zELz p EYGoHFYpXZPcEKUmzQruyw6ki G9wIi8+HRIxaAD9jXS3pZ3tOE FjAlJ1TQspO642LyCzcHEzVhn j q7ezw7juzQp0BnG4BWBpvqJll AyyFUD4m0BoSs63Z01iDTnlEO UiKCFsZFYvTSIozIokcf4zgB6 w Ii8+TMBslGL5qNO9dY9rUePxJ oY2XWyaO925AuDukWQtErzpX9 7iI5TenHY+VTFrLli2HPGaoWp s JT6waVMtJAhdQc1gRGS2KpIcQ hRaKVipZ3ChYBVksgzbwbkopP G4PSTsCEEbkI59Qk9hhSooFHD w wDXNxX9cayqmw0yydimsJnOaH ZToAQq1MLu3DHJueCqqXmWpIB O6GxH2MVE6vYIrvO7dyWpwxix g jQ9vZ7TuCEJysybpCy76gR6bN iJlXtB5BJhcOkz+VEFOTkVSLC PIF25BIJYtBCtacHF+PHRkIHN 0 qCjsKZobUZQyoY1aSTPdS2f3V nCnHnJ1GBswH8RiDVTcnqwlJg 79fM0pCgCtSmG4ETftX6TkvwY 6 XLZslILyMUiaMVT5R50on9V1J WZfWSLfASC5gUM0uW0fpVvrfn ogbGVmdDsgdmVydGljYWwtYWx p K762PKLvyTmiCxOoBiW8BmX4B Wc8D0EcBhi4BGKpvQziKB4drP GgAKozAo3xbWfjrNweOV6iWHC p tkfgHZUioB4sXSGdpPWgyXtlN L4jRDGjeuuoy887MdCcPGN0SV QvhHCeO9JyiR8pHvHpOBUaVTE w G3MbaHKiYQaqH529UVpgRdU7Q QFptyCcZ4CyTXRwxRztZcK3a9 U4Vz29FNNWECPmyrautDR+PHR k FKR6wRlbMTkvLNFwlT0nXJMfU 9i5YcLqHgH3GJmbG9CeNRXxvg xrMf57wT7wEtWbNzJ4CVmoX4X v rvJ9GOLhfMCsCTruBQC7J67kz 6U7ZGTcHGYkZAX4bJG9bE7ixT lnbjogbGVmdDsgdmVydGljYWw t LKuvC825LLEfcTeyMb3zmTS6F 9LsHml0GJXsnCdcVR3cqTJeZP ozVp1ucTvdxHloJJ8kFTZkuau w FAFbdB8nODGcuDEldKwpRR0hP VHzlxzep548QoXmMYZ3NSVsmN ClR8AllQ9rJrHlWDOuOKJuG0O l yEYlDNrqO498YIntEcL7EELdf mZwZ1NzOWMzcNfzYaE4d5S1Or 8RhMXuAJNuDY46UY26KH98F5F y PjwvdGFibGU+PHRhYmxlIHdpZ IJaZBmjJKRaSyGcgWscQX4qHw 8mCCMqEMOrwGwogUKiZnKyr0b s MENuOOxhUK3uwLwtX8NtmRZ4P GXmu2b7Xk03L97oS5CxnVV+PG TnhCU4rCK7bF4tFhDzQlM2TVo p I946NdXacYTtTyuph7tio5ewm Qf8LyAaANPikxEkjMwhTOK0h3 AaJg33S16gMCpfRXNhFCBlGSF i EFOxeAtlev1fyS1yQj0+PGNvb IT3vTD4bA1qBeJeSuG6BBlwQ4 81WvZvaMBiIkewK49tF8HzfDB + MTLtCcf5BPJlqAnxPN1upTPuL WodFx7oSKU7QuUrJkMoPQdqT2 FtWWYorhsxlrdhtMX9CDVoNPM w tO13Pj1icJryXn6dJTVdZCQ4J QByaLIwE9HanG9wEiJlEGLyOU DfK7XryNJxIPbiY998NSiePxE 7 LOFyrfItZ5LvFCNbgXgyKuB1m 6Z3Tu5OsApasYWqUY5tWgNuDE j2U1NxDga0YQUvqEhqGV7irGR k ZQbgKk5vbXlpgMdhAS6iKPWnk iqwb485YdNfh4wiODOqdURmJJ buRVE3M42oz7N5DLMgLQBoOCW 7 vWN9zG4dbKcgruqiiGYvwYqki pLxoIocKNlnIZhvV207QKOifO jgKgXWLsi3N6PqPfd0XKOahFl s AE4bnSInEGmxQw2igAiqtCgtF A8nYREfmfedw417YjOxl3skLX HpxMYrINvbXCN1I13wy3C8QLP w BASsNFC3nDU2zF3uuSlmrtypn GVmdDsgdmVydGljYWwtYWxpZ2 65IOVujDclIh0ZHya4H0TgRkx 0 PJArqTlxUK3alKTyBTytKi9zi QqprAnrUB3rDXYduziwi324Co Pbx2mlRFTdqFMbECovMWB4E83 s s0G8UVFaQXTrVSU6kJF7jA2id GlnbjogbGVmdDsgdmVydGljYW gjBAdkX647PQRtmKtyLbTiaNO y OjwvdGQ+TZ03nk99B5SvTemyZ gd0SANfXIT8qPJ7pB3pUJCnRX rju6U1zDQ7P0LneeGaby6is2u s YXBzZTog (more content not included)... Normal [facility] Coding Summary. CD:[id number] Ww+PG hlYWQ+AK6DUSIeV89nwFZzbM1 sG7VCGIbFLwzqBJQGAOxNFyAr rbQmIT1bsQOxJKZc IC8+EZ0dSVGkJkoztSSve3E0o ZG6M05jxv7eABhztPD0FOFlIm Oiflbpj6ebpCl9REvxUcdwDwT t WODchU46QEL4uW29Pz21yRFpb WQhe0cjxJk9BoEfYMHoCFT9uZ zxTWxmo9TqEEUdN53qoLMow2F 6 HWPweDkbpLHuHgNpuDV3iR0mX Cvnhxcen4rzksruHve6lq23sR Ugl5A1fYT9V8WggaN4IFYajGY g HpkzmKGJuR5xizsel0szkejhP iLfHQHqBOx5DGa3GUCibWcoZv FvWZ13NNV9OPWypnTaJ1HjQGH s fRmoHlT3m7K9Jq2JI1ZAYknvS 1VNTUFSWTwvdGQ+HK28xh12A3 DoZkbuLwh2QTQjTYG3jAO5oI7 n KUBtBDqjl0X9bGP2P2RzebIuw l3bk3asBLSgEQnvA03nmKDjz5 V5BYKihDK9JBFhwIhnRlEyzH4 3 Oyc+XDAmiLzzb0AsNzuhz3vlz 4kntNo5HvyqSPAklsIveSgfFI K3w6LrFa3qBMXrnBN2xBE8rF6 i LrTqFcQ3MHvgI274OsLvhLSlJ minD89cW8PzwCH+LNQsLmk1ET AxwQylSS8xP7YuQZZxfnrqfVR m oKbzXN1nYIOupbllVZUnaA0hP GGuA5b6PjOuFjN9NYfsD6KwRX IbfxzfRd85pJ4vCeUtVdQ0GDa u I0KoycW7TBYwnEUlQAhfWWN4A 96js3S4KILkOJWyCUA9oXG8sZ 1hbGlnbjogbGVmdDsgdmVydGl j DVtxAQyfG945VGHzrHqjGrIvC GluZyBEYXRlOiAgMDMvMzAvMj AyMzwvdGQ+CLIkGPJ5yOxsGGL n uYFiSSbqDw4edPryrIriVQ2lS ARuokrgDEWfnH2jKLBqxTEksL ugFI5eDUMvdsgxb780AgTiBNX 0 EKFypVPsD0SoaE9iPzIbLQOmQ VYkW0JkzEMhADfnX033RVkbZc V0QJWwtfEhX2HsAXWsyZxtJkR 0 g4L4Ay4Cm3YhbhqoM6ExsCTmY kCiLiueVMh3W0RpQpknpUG+PC 70OHFpWO22KNh9EIG1wMxiUSs i ZKLjJ0ZygS1dFlJlUDWjYOFtY yc+PHRhYmxlIHdpZHRoPScxMD SvPeNvwXcxNW5fOi6kRLAyZHG v aJijtCCoDcCxe0ntQFEuZLrwQ F8qcYjuV1GgfNI3JJUtj0n7Je 01P13pJ0EouXU+LODxwWM2pHC 0 fT5vLbDwEfW6KGnlG530DwQbl HWwTjsci1tyh8zxtXz2KcF9CM OobuKsjQhnEPV1n3PhGn78D12 s IHdpZHRoPSIxNSUiIHZhbGlnb c1piJ1tXq9+CPKwhVM9qXZ9xC 6kKfSuAnA2BVbdT635VdAupKD v Lxgca1rwi1xieTj5LxHrWYWiz yTigJapKIN9x7LyRe42N6NeqP ieg5XvZnn6tm28eBTtk3G1tEX 9 U4RcOHZqzdsylOGlkHooMR1wU LPalijiMBBlnY3cYAUrZ2g1Nw KyLhQ0DPwfT1OakbQ9AUPaqRL g SAOmcKVSwP0jvdmpa4ilwtszT iEeXCOpILn2ZFr2AXKbxYvvEh LmCCT4DsV0LDQ0iKAcaZ3ybOu n fwlxkU2kGvd+RHH0bOJinLZAV U6tJjfumHF+LYEoTXI9yTtjPO ixGDOtfJ8xLBRlF6u1ObTeFyA 1 ANklZ8VanuO8MGNhqIHkXBHel SKTeR9cvewtm0yewekbLxKrOS BmULq0NZl6UCNbcYneSlHpMJG 0 VkU0KQV4kRKptG5qrAqdkffoi G9wOyc+TpzxjVtxIMV2BNc7T3 WsWfc5FBYwyLhmLZ9yyQVnCOh u Ex5jaJeviPiyLX5wMHIcnanyb 770JjDjn3jbUWSmsDFtENapRK A5Z05iy3U9KOJrHONdFXN5kMP 4 dZ8ahHqwqdrleOPbiEymgxDqf QygLHvfSOpcE855KIGycZpuSn FcUCg6K4RlMij6XKXoyDqeVM1 n pTTkDZybYt1shRfraVgcYE1tJ JMqnohbc913WzMre9jtDSLswS SyXDswBVY6I76rj9H8PHKlLOI w AVC4sEW9sA4yuOqfkobkfGFzl YhwhfCxjVnlLDnkOHkgZ125OV ZomEokHkLguAt2R8SmYvw1UMC z wWluTO2oyVMmQUgoSn0paRnvk NwlTU9iIGUtkvdlk594ErApe3 lfLZKykOXtJNsqOUK3G95xr2W 6 NBIhOVUvYLV4sZV2wO5pkObsm jogbGVmdDsgdmVydGljYWwtYW bsR720GFSgvRagQaFtvGirsgJ g QCdaDYm2E9WrEimgbLS+PC90Y GQeLB81kSNuwQElv1nzqMt4Cn FrGNSqCTO5dVxlIUzhq8YgDLC t N63pyXXwp2O7HSVbvLqmlKGeQ wHzyKN8nU4hZEogjfyqi6arox nsWnfdi8cftp32zE46M74dIIs p PPEzVWAgUVLjYWOsqAuosd2ma G9wIi8+IRRhhXP8fJY0rC2yFE SjWeS6RVfaY566YyRabAZgDii j n8rlb0xwnZb8WaQ1XHDvexHfs ZcsOXW2g6NzGl38R27pFOfpBP PhLYXeTTMvIGPjoAyvyt1sxW7 w Ii8+CIUxfNL1rJM2qF0bFgMxZ fV2KHxtZ912QxKluNCbQtfrM9 3sH3JqwTS+EONsWae7TRWosFr s JY2muHYtRNdbJy1oDUE7MjYlH zCcIOfvV5OxIFExtxarielvlA Y2EMBuSBJhxC84Lh0nrHytOXK w fVCNrB9temqhi9wudawrOeIvR URpEKq1NXu3WPNjkZizHdQrQK W2DlB3FEO6eSYlaX3nyUvhgug g pG7tY9WdQDLkysnjSa33fG5sJ aRcKtA5WBjqOcb+VEFOTkVSLC OOH56OJVQaYXzdjDR+PHRkIHN 0 lKrbUAocXRUnmH8pTDCrK4x9M fQyFlZ6YNwxG5GeHCTtzrimXc 68aU5sFzLjMcE8EFndT1NlaoD 6 WNRuxGLtYTcaAVS8Z12ov9C6R JYgTOMvVOR6yOG3uM5wpBgjbe ogbGVmdDsgdmVydGljYWwtYWx p U664LRXceTcoKfJeNeU3MsA7W Ax8C8MzStf1WAVzdLwlLC0ekP JhRUfmJq6nmKewgJinRI6ePPE p mjpsDHTioB9yTVOtdQXcuHufC R7uVMIkscfzz061BtGpOHC0ZR EodIBpH0CkcP8wTvDpVVQcOBE w W8ZliCJmLJylF620EKyaAuO5Y KHmhqKdN7PbXMZihBfiFbA4a7 U4Al74CBSZZMWctpcanWH+PHR k UMT2oZpvJToeXIUciF2wLZYfV 3l5OqLbXwS5MOysM7XaSIPrfo epEh09vO0rTpHpAlN6LSlrL9Z v wuK8XRLyhHGiSMeoZIL8B03zg 9P5NKHfFWVpQWR8lXV9dN8rnD lnbjogbGVmdDsgdmVydGljYWw t WQceT326FQNwaOfxXe5hkBF7C 5KwUjp6JWBbpVnoZZ6taSBeME djQf5udTqhoQxbLL8rOXQvxjs w TPOdxP6iHPNmzPOkiOmzQG7zE YVddquke183YnNrFZG2UDMybT UfY3NimX2qNlZwCZXwXQEaK0H l mZKsIQvtI583NYcxZlY3OWSna bBlC7WcVRCbbNgaOyS0h7R4Qw 8LqSSrZKGvHL49ZI13IJ50O9F y PjwvdGFibGU+PHRhYmxlIHdpZ IVrNTvwLWAcYoHawZeeHQ1uMu 4uBXGsYRBppPdxkURpIwUhe1h s JLKzQKtbOV7ezAleL1BpaWN0J HKdg4b4Ks01O84wU0ZppQS+PG AmoIL9hHO6aH0uGqBhYeV7YEg p N105YfIwvAVfJqhjt2hcl3lea Nn1ExWjHYRaynHqvGirBUO0j3 VrCk24Q19fUXrtYVYeDJTpLXG i FNQkwThcbu5pjV6yGn9+PGNvb LY3eMT6qJ0qGnAeEzJ9NNqpS8 27YmVrgHSyVqfdP73gJ5QiuSV + TUYuOth6VAEseRnmNC6enBImF ThyVg2qMXF1HcCfUgClCNatD8 MsCUXmuzseuqppfET1AYWtVTD w iX30Ro8mdWhrWr2pIQZjNHL4H WSnaIHyS5YwyT1xYfUoNSUnRC XaX7CetZEnSObzS018EJwcLgH 7 LVRljmRgA4AoWBRcrNvvIjZ2x 5I5Oo9OxRfqtHMiUX0nNbEyJO b3U0TgIzf8SEKfzEdoHI6hdOP k JYasYe4ocHavpWqeYD8jTPThr xjxs851OeJlt5owWNRewQRaMR zlJFQ0L10ed8H6HJUpUWHcNMC 7 yMT2kS4ctVoccdpnmNZznTuew qCyvEtmDRefROccA302CFNirM azXeUXZxc8S6ZtQps7FQMlzOy s QJ6bvNTaZKcjVt8iwRtwcTwoP J0gFBEpegswq195FgRid1siRZ YaiMDpAAqkHJF7R55gp7E9IRR w AYQmZQR1fER3gJ2pyWvrqkmmq GVmdDsgdmVydGljYWwtYWxpZ2 57QIEqbAjeEn2VJvf7L2JtZtz 0 DIDfkJqdDK7adOZaGWzaDl6sh BnknQagVN5cTNGjlhtzz433Bl Yrv7pqXTJoyEUdCBpuPNO1W00 s u3R7OLLiVAMrMYE6rHH7vE3oy GlnbjogbGVmdDsgdmVydGljYW wfGMjxH720KPOdvMagLdNxoAC y OjwvdGQ+EO15kc83M8HtXaogB wt6WWVzRQK3cFV9lQ1fUXSlLE cef1Z5zUY8G2LemaAwnv1pt2c s YXBzZTog (more content not included)... Normal [facility] US venous duplex LE Velvet US venous duplex LE [address] [address] Ultrasound Report Signed Patient: Yousif Aguilar MR#: [id number] 875 : 1945 Acct:[id number] Age/Sex: 77 / M ADM Date: 02/27/23 Loc: Room: Type: [facility] Attending Dr: Perlita Reno [employer]-C Ordering Provider: Perlita Reno APRN Date of [...] Lonnie Vasquez MD02/27/2023 4:25 PM Dictation Location: [place] [address] Tech: Maureen Denis Transcribed By: TONE 02/27/23 1625 Dictated By: Lonnie Vasquez MD 02/27/231623 Signed By: 02/27/23 162 [facility] Coding Summary.on 02-26-2023 Coding Summary. CD:[id number] Ww+PG hlYWQ+ON0URTOcS20rtUWhmD5 aR2JYDWpVYxojJUVYQVoBYlSn ctDvKQ3bmZIxLWQp IC8+XD4cQYKsMzonwFYpn1Y0y ZJ4H16fsg9bALecyIF2PRFgBn Ryptltk3hxwYm5XIhnTedvBuT t BHLkdU14LCK1lC15Qk06eIIsq CSbk7qhzSg7WgKnXLQhEPB1cI ebCAgqz0WeUKPgF85daXOen6I 6 LCLzyXyhsSYdFjYtuMP7yL9zW Repggmom7mmlobfDoy6bo10dX Fqb3V1rWS6L4RiqoU1SGHpuQE g YqtknPRJqQ7ymeszb6ppqtghX yQaOTUiJXr8NMb1ETAeyFoaAd MqAZ57MBX9KERgrbKzG0DgKVY s bWqgAkD5v1K6Za1QL7LQTdvxC 1VNTUFSWTwvdGQ+QC22jq10O9 ZtBxfpKdl7ANJmUQI9vOT8fJ8 n CVKvDSoll9F4gDS0D4YmjzTyh y2zd5knFLGcCAivG68joMUay1 I4HBPbxJW6MIElcAymWkPvcO5 3 Oyc+SOIbdFulr5UxJwohg1yzq 7ygnZa0JsqjWSPmljLeiQndPD K9x9AvHl1bHTRawMQ3rMW9mE2 i NsUbZdW8SGzcE396KeUsjDZfH dinU62nC2ZanWH+GGOfDwf0YU EdkUqtLZ4wZ0CwTOJxmbmurYM m sQtqCK8zVJHzabssBOJmhO1tN VEkS3v5WaMmNsY9TGnaG3XxVS JtaeeeFn68zC8uMoEtKfF7VZm u U9ZqzcA9DYXkmWUtMSuiEFZ2J 44ur7P7ZVQqUTNwPDN2bTG1gC 1hbGlnbjogbGVmdDsgdmVydGl j SDkvATrrI399DTPolOqmKtHtY GluZyBEYXRlOiAgMDMvMjkvMj AyMzwvdGQ+YTMxJOQ1cJlwYVM n jUAzSDaxFs8dpAlaaUyjTG3tU MIwhlprHLFpzK7jUJBzbGKnlL diAB8tTVMbknzod235LeHgWAN 0 HLXynAPlZ5TzxJ4kTzOfQMGjA JDmT9RzuVUqGRugU184LQrqWd C6YHBymlAtU1SpXQQtoVczUfT 0 c9N2Zk1Hv4WkcajhR9HfhCAzU fMfBqxyEUn8R3IuEydzaDW+PC 41AHZpDQ76JTn1QKS8aUllFMz i RMQqN3HqbN2pQsYeCKRfMFGcH yc+PHRhYmxlIHdpZHRoPScxMD HiNuHtbNefFA6vMp7uFYHtXPZ v fMvkgXYvEvBpz4twDQXlRYiuI S4skSenG9UqoBI0BTRjj7g2Rd 92G28yF7ArkZL+WUVpmRU6aOA 0 wN6rRnWeUtI4SHymK309EnGpt VDsWmjjg0qjo8yjhZk3IbH9KB IdmiPetNufLFA5d9GmLg75U22 s IHdpZHRoPSIxNSUiIHZhbGlnb c4wyA9cQj0+FXFgyZY4sIP0fQ 4tWoRdVdP1GWwmE143LnTzmFG v Uydld5mie9upjZv4KtIrGNBdh lCakDtxYQH2e7DvMf47M9TvsS ron1MaIjj8hh60sGCgl7X7sOE 9 O6LrHGQefdvuwVRsxSayPT6zB GDvkzskQHXdxO5pGGHzD9p4Ll MrTsU5TRqzZ1HcnyX4SHTmwAE g LZKwfVTKpL5fcuygh6poygvnO tSkQLCmOHx0ARw5LZGjcBltZc BqULE8JdF4GJK7zOFozB5ofZi n yvnqxD2bNyk+LIX9rDIytCJMI H4aHlxmcNI+QEJmKUO5dZqeDP vcPUAffZ9jZAUzZ1s1CgExOcV 1 XOuiR4VccyB9BYAsuPJpMFRvi PXVrR9bhgtca4cwykmzHuWsHX PhAQk0NIf6DVTspQkkTeZlXYT 0 SoL6OFO2bZGaaC4tuQqwyypei G9wOyc+AvzczFvhDMI2LLo8A4 VoJex8AYGdkDlbKM8xuOYoBKv u Vz6nuLaftDhtWO0vQXTrkliqc 605KdZul0lrMEMitKHgOKigXJ K6C53rb8Q4FUTtDTQhBFF4vQU 4 aB7amYxbcxdhnQWplYmmcjJzq QwuHAgkOXipM683TKWlfTvcPz SxHRh1E7UeMwx5XTIciLciES4 n kLQwTFghQa9ivZtilRexFF0gX CFyifzec126WoQbv9nfNRPauE AgFGkeIGW2F84mj1O2HTNnLLE w LGY8uJN4oZ6toPjezuzefLUvu AjvlhPwvNhsBYvmOSljM849GY LvnYsjZxLnaZy6S9ZbRwy4DBS z wLotBS7tpHWiUAxuQo1eqTaxd QvsMS6qPVKijzlkp944LdKjp3 ekQDYveRRtWMbaQQK1A01cb1K 6 RFArNXIoMYO0hKV6iX8wyYsqq jogbGVmdDsgdmVydGljYWwtYW lsR974OKDsoFmiAwVcuDxzqjF g UUjqANb0K2RnZwxhmDP+PC90Y YMzYZ24hIHtoXJyp9zycZr9It VtZWAzZBE7eHitDJilb7YmCSX t X56bdAMcm8N1OYAomWcitELcF eWgoAL1dI3xWNozdfnld0ykzl urIfesn4zhic82yJ61F66tUQb p ZFFbYNLoSQJnDAZemBrvzy2id G9wIi8+DJZrdJJ9rWI4qM3lKC NfDjN8XAtoL857SsGtuRXuRtx j w4jup4pdnEb9LjM1NPIfpzDus WpyXVT2k7KlWf85A65sAVhzAO GlRCTfGSQhMPVmnShbru7zvE8 w Ii8+WGZdlAL0tEF8bQ6nGzWsP aX8RPcoP107IvUsgXXzNazzR3 9yW5WxgFN+ONGaJwp5ZVQrwAg s ZC2wxOGvIVwoBb0tNUB1KbHdD pFuKXstN0KjVWNvecpowsmusR B2LDNdWMXkyU93Lh1mtDyxSVK w rWGJdE8vnerfy2gtplihTzRuP ASyZSp0UWt1VOZcjMfkInAhWU L8JmN9LZP3yDEsiR5ynSwglkx g vD3uN0FbDISkoumpAz25iV8hI kKhCbT0OEyqMvo+VEFOTkVSLC FFO81GSCOwGWeedDK+PHRkIHN 0 jQtsBEzcQDAokQ5cGLHrJ3a7F pCyYhF4JUsfQ2OuRGQpqbifQk 56mR3dFoHwScK4PGckB8NhgrP 6 XUJfaFUfTFobYVX4N89xa2K4T RIgFDGzRPL8sIF2yP9osBfcwy ogbGVmdDsgdmVydGljYWwtYWx p S644MYBfgAdwNaKgAoP8JzZ0K Hz3Q8XhXiq5NZDmsCygWS7uzS QlWTnoMa0bxOxixAshMR4dCYX p gzyzTCMkgV9mTNKfhXFeeZujG X7fBINlhawpp589QmUrLUF4UV RusBBkH5XokR6jLtNaVLNwFRQ w G1ItzWDoBGbjO854LFtbFeR5K MQgpfRzL1DuXVJzxShzKzE3l6 C2Qd71VZUWVYKcrwrvrVI+PHR k PVH3hIfsIYvpYIEycN6iYFQiE 6d7HgSnMhA6YPgqF7MmZJDvsp emTs97tR4tGrNpGlL0OBbxE8B v ozZ8JJWjsXYmHOpsQAM6P99wh 7G6VGWdBCJfMMT3gRA5pB8krO lnbjogbGVmdDsgdmVydGljYWw t YKdvM495YNKylWhcIu2grJW4T 1LcNjo6ECVicBarFQ3rvMAvXP obLf7snPlovAvwXU0dAUGfjad w YHXglH2pCIQuqHYxnAkrGU6oL LCvzdyeu991IwTwVRH8GGKdmU OgQ4TfbI4sHqGmAKTyFTNuV6J l oPSfYLmgK834HPpnFeA8KURcu mHfN7DxRNAlgTxyGlS2j1D9Yr 1NvDGzRBFnVO43HI73YW83N8Y y PjwvdGFibGU+PHRhYmxlIHdpZ JFqQQxuOWCcUfLmoAsvEV0tCx 7mUYAvSADvqQsszCErUrNcz9h s OQWrUUrbQD0yySqrY7MyeWF9X ZQeo5b9Hd96C60gV6MsyZK+PG DskFC7cAK9kB9pQdXuSnS1GRy p S463HsGzkDWuKrcyp7cod1xhd Cg5OhKjSRIbazJbfUlzPNF8d2 UgOi68T57yEWmpTMLvMOAgFAA i TVMzgSgwvt0keI9sJe0+PGNvb RS4dBB1dH0rUlAjXuH7JDupZ8 20MjBeaGUbWeniM24eL7LpgBH + KCEyGxy9VIAbmRpuRW0coBKvM HvfUn4eDHP0IkQgPhDiYEseU2 SkMYQwnlvyirqnaPK0GQEkFKV w nV89Cv5mgZlfBf3uDJLiDUD5S OEbwXAdP8SjkN2oFqAyNSTaFF LdP8FbkYDaXQbcO138PMlbBsL 7 BRDvddMaM3TbEXOuwTgsBfS9l 4S0Kh1JrAosoFFiGV1zDcIeXV f0E8YeNnc2WNPcxNbwOH9adGK k SPfyUi1jqRtjhHhwQW6hIZIzb mceg009KdZfl0ejUGRvcYOyEQ vkTKH0S52mh8G1NWIrMMGhADT 7 kRL0pA0yjPofabsrrQMtjYefv lVlsNvqDOtxDUgmI509CCUxlH ayYnKOJrr5M0ImFcf4LHHvsNo s DX0iuHEuSZjrUl1dnDutoBqfY Y6iTRBxoxgvf280YrVbw1hvZS WenKXqRYmpHWP0G11km5Q4RYK w RZZtRHP9zSK0nN3rrEeduewgz GVmdDsgdmVydGljYWwtYWxpZ2 83PKMyiUieNc2SIyq6D5AtAry 0 FMMijOtdWS2deMXnEAukHh0eb PecaXzhNQ3nYZLwrnypr165Gd Xax3uiZRIovMMoNXovZNK0L06 s y4Z1EPOtHMIgFXA7wRY4gO3ha GlnbjogbGVmdDsgdmVydGljYW deWZglP081XTHtlBajNfAqkBP y OjwvdGQ+CE20uv56F2ToLeazS er7VPRcASX8fKG2wT1hUYTiKD liw1I6uID6K2UrlfOrub8xj1z s YXBzZTog (more content not included)... Normal [facility] Multi-Wound Charton 02-27-20 Multi-Wound Chart [id number]#1.00CD:1 27 Normal [facility] Nursing Note - Woundon 02-26 Nursing Note - Wound [id number]#1.00CD:[address] [facility] Physician Orderon 02-26-2023 Physician Order [id number]#1.00CD:[address] [facility] Procedure - Woundon 02-27-20 Procedure - Wound [id number]#1.00CD:[address] [facility] Consent for Treatmenton 01-30 Consent for Treatment [id number]#1.00CD:[address] [facility] Correspondence - Woundon Correspondence - Wound [id number]#1.00CD:[address] [facility] Consent for Treatmenton 01-30 Consent for Treatment [id number]#1.00CD:[address] [facility] Multi-Wound Charton 02-19-20 Multi-Wound Chart [id number]#1.00CD:[address] [facility] Nursing Assessment - Woundon 02-18-2023 Nursing Assessment - Wound [id number]#1.00CD:[address] [facility] Nursing Note - Woundon 02-18 Nursing Note - Wound [id number]#1.00CD:[address] [facility] Physician Orderon 02-18-2023 Physician Order [id number]#1.00CD:[address] [facility] Procedure - Woundon 02-19-20 Procedure - Wound [id number]#1.00CD:[address] [facility] Progress Note - Woundon 03- Progress Note - Wound [id number]#1.00CD:[address] [facility] Coding Summary.on 02-17-2023 Coding Summary. CD:932114DK:8613850T Gh0bW w+PGhlYWQ+ET1YAQWaI28zzSE liD1xG6XBGTgYXsdeHZLYVIrA KfEdesLgWX3teGUlELBs IC8+PH1oGYTyZntndTOnu1E2d CS7E92aqq7aBKkzkSW5LJWzFq Djbhezj2hyoXy7JCqaJwvrRlA t DWYagV50SQD7fS47Jj02rTNdu RRdk8dfgVv1SwXkLHPrOKP9uG poVExms7YcOGUoI07tgFJdi5S 6 BCCmqJghcLBjEdCyfRO2mD9mY Ogetxiuo5aceyauNtw3xz04dC Apc0S4jLJ9I9ZouvD1JKTqtWM g KqlryFVKpG9cdkenl8ayrbwnP cHhWKYhGQq9ADt7QQOrhPdkSm GkMQ96YYZ5PMUotzSaR1TnSHX s lWgnPbP1l3K5Mk2WT3NYUgayA 1VNTUFSWTwvdGQ+KC25cj97S6 MvKdcyDur1ATCzALO4cQO7fK6 n YOQtIFjru4B1ePO2U9HynaPae w8yw2qdQKJuFQvtE63wpGLrn8 F8DLBngVC1ZGAndTbuEaVhvD4 3 Oyc+YBLsmFvyr2IfDfbtu4som 7rfwDm8HnuyTAXaxmNcoHsjAL O5h9KoBu3aJXSeuTM7sFI4sK9 i BtUvUoY3AFsvL527WkVpqJPoM ewmX22eU3BzbKW+IQIyBkp4WT KweNjeZA2xA4QpNATgoewzxCA m zYybFF3nFXNilgkkIBJlnH5nY XMnV1d9KdBpVvD4DFvtC6WdOY AoljbwBk13wW7bPxCuRsK3SEe u P7AhlrY3IVIzlPIkULobGXU8G 41jz4P3STRoVSTvSFW5pPP4vK 1hbGlnbjogbGVmdDsgdmVydGl j WWwcHQfaF488SOOwwLuvOuDlG GluZyBEYXRlOiAgMDMvMjAvMj AyMzwvdGQ+DYXkXJO8mDpbRVM n kGTsFYmdKi3zyObckWblKG8xF BTmzkcfGFXoiC5zMCHrhCMoqF coAW1jDUMdujuvn113VtNqVCK 0 TVHcpLIqT8DidR0tMoSsALLtF ZYgI6TbrHWsLQbcZ284ENgvSr G7QNMmujCzS9KvBJAucFcpTpM 0 f2I8Bu9Xv4YluupcC1GhyNEhE gLsQbcpPNf2A4WfHgcugCG+PC 33GPWlAW24JZz7BKA4xMlqMUi i HMThZ6WtfC1nWnRuGDDpEQYbG yc+PHRhYmxlIHdpZHRoPScxMD GbPiUtxAylWW2wOt8mWDWnKVJ v mQcuoPLrFkSqt3mlWTNhLQetG D9sjUixK1PzdFD7NYTyh0h0Nf 85P84pP1WmaXI+BZEldTB1lKB 0 cP2mTcFpDkW3YTahK508UuOrg AUwEvpak2yom7fdcEa0CcB9DT OajcZzkIhjLNN2o4EtHg84J24 s IHdpZHRoPSIxNSUiIHZhbGlnb t5qtY9hHt4+SLLnfYY0qLQ3iH 2rMpXxYzH3XRylG382YvBpnGX v Lbkgq8cwj3zwmZy3DyTwNEArw mOzpZorONV4p4FrSu14F5BcqO iks4JsLrx7dt38nILxq3H6eZG 9 M8XmWQLndxyarQTgvWhkSE8bC XSdudfvEZCnhM4eLPUqH0r0Qn BpEtR6PCiuS5WbvdS3NHZyyDN g GTQdoPCIqP1ylotta4ldhjlxU iBwQFQeCYv3KCq3YIAdaGtnLo IiJMQ1VkB5AXM1fIMfaP9hpAc n iynxkJ3cUay+YUU3kDZpeSEED O5dLlndhIL+KLTpDBL1tUpwAZ kmYJCmiB4wKXGiG6n9HvCxJvG 1 QSuuF4SfmuL6ISYsrYPiTDMew ILFgW1crfnnp0pnozihXqQtHY WmOFd0MXq7DRGuzOukZoXhRAD 0 QzQ3ZHV1hKSgdM8nmJllrdxcu G9wOyc+FkhjeYebKEK4QTh4U8 HcLfo5YJDmiTvcPV6feKBpGLt u Fa8dbTutnFeaTM3rEGWuvbllm 080ZpFho4fvFOXfhOIqGDezSR Q8P30hx6N0IGKiBCLiNVA9yHH 4 mM9mrMpvevhjuZTxfGimojXfy ZqsYLeiFYscI248OEPbuVyjMt IjVEn7A3FxRvh7CQPqhUszZA4 n kXYkEJplFq2nqViclMxjKP9wA EDdchkyv192AcBsg5euRIXmcE IfFTczZIZ3Q30ow1K5OCFfZTX w KNE7zIU6gP1xrVuvojapnWAef WrvuvQifSwvQJruKDxtG157US ZxcBzgDdGayTa1W5OzMft9IML z pUgaIV8moCTlKWvhBg0uvGabz HooUI4kHFGsfxfdh209WpDkc6 fkRRTelDXzCWvnBKZ4U79sw7D 6 NELmQKBhFIK3wYC0wN1lmEvns jogbGVmdDsgdmVydGljYWwtYW kyY326ZLJumYseVmAyuLmtkoQ g ICwzJGk5N9ZgDxnfrDC+PC90Y EJvSO54xVXwuLYty4zysAx5Mc DbLZHzENN0hGgrXKwxu2RxSUN t M76yjMCio5K4HEQwwQygrCMkZ cIbeWC0zB5sFEkyfgmtn0quce qxWmqeb0heid17zH81O48uJJx p QLSuJXIjWESnVRHxiQmdfc5pl G9wIi8+QCAkeNS8qLV4kP6fTU AcScB7FAoiE336AnPjoAIeGbs j g7fpo4kybCd2SlQ2HBCwtzDld UlmHWD2l0IlEg25M19nJOpwZV GuLTQmVYTrIESfkYzick4pwJ1 w Ii8+KYWztKS2hFF9vR4xJnHvT yC5OBxyV525GfZwzQRoOrddL4 4qH5PjfIJ+JPOjByg5YXMbrBy s HE8yoIHrFPxsYm9lSAO0CbZmL mCqRKqeY2QrLWCsozzrbyqxoG Q8PEZqLBBvpT78Df6hlNjfROU w oBUNkP2ojiyns9tyzjstFbTtQ ZCyTIz2LOp8GOWmoFzxTkKmIV T9QgU9KEY1sMJrxW6rrGltswf g oC7cP8ZtVZSuxmqrEa37mW5pF eItGkR1DCzmLve+VEFOTkVSLC XHJ56TLHCuJEaieMI+PHRkIHN 0 jHmcEOfcYYAfwI0xBXBxY7l1U vXqUxS8SUliW0DdLRTskklbNy 04iD2oYeYqZuH0NHolA5IlnlY 6 QGPrhVIpRMhfMUY3S81ye4Z9D SHnIQRgCQN0yUH8iH5gmEghbu ogbGVmdDsgdmVydGljYWwtYWx p G891BQCbtNfdFqIiDfM3GoS1J Yi1K0OsNmq3UJRsqVntLX5wiO DpADyvPg6qbKbacEytVO0iCFK p nxwpGFXvmW1iOJMvaGAjyEihS G8sWSPudhlcz769SmArLMJ1AH TfgWEuJ2WiuL9kYaFiYYCnMBW w Z7ZwbFWwZValD981SShcFoL5Y RXkhiRbE8MiZQAduUsnKeN0m0 D1Pa26JQJQCHPhxcrcaUT+PHR k VGL8mZyjFMfrQXOeyJ0pKCSnX 7l7DzIfLcK5RZxaF2BuWQOeds ykGg23zW6hQtCkTpV8XDedB5Q v jvH4RNZkxDDuDGnqUFX7W43xq 1L4EJOeZAPuLMN8kYQ6tK2eeK lnbjogbGVmdDsgdmVydGljYWw t SGniY522KKRzaIwaKd6tjHA9Y 0KpQkb7WRAofRwbAB3kzAXoAK hyEn3ugAmsxYkqBG6jHZNpjdd w LZYeyA6fEKMflNCjvHqcWL2uK BJvirldf616XsOsCUP6AUBlfO FwE6PexF3bHuHkGDEkTDBkN6Y l bPCcHPbhN173EFgqYgK0UGGut oOzE8MpWXRkmCkyImY8p9H1Ux 4SeYTqTQApGD46KE04JN45D0C y PjwvdGFibGU+PHRhYmxlIHdpZ IGnTGtpOOHvIfLdfBnkTX1qSj 2jUXLlOVCecDjcaYRxHrBlk2z s BNLwSEayYE1nlMyzK1TniRF8W SHjn3s8Gd34G51kW6GhmBO+PG IfwLY0yGP8eU1oCsPdIqI2SKd p S053HfMkwFCeQgdip1yvh7evx Wy3MdVdHQXglmSfiMqgXXL6s8 IlBj33Z27yIKggWTMgFJCjOIH i FVQtoMbeem3pbZ7uKl1+PGNvb LS2uEW8bF4mVqCjQeV4IHbzP0 35RrNukALuAveaJ25aX7KgrPH + GZJnQkl9KXSajCncDW3yrIBcN HynOg6aILE7KqTfYpBbNIkrU5 LlYPBwyqkqwuyjzHN7DUIzVFK w pO10Sk0noKhyEn2mOIDyGTE0H RIrnYVbB7VnnR7fVxVuHQTlOR HhP4PfdOCtECvzC497TOmvLnO 7 RZSppsRzD1XaHPWovWrcYoN4y 6C9Tx3WkNdvcZLzZN9fLuLfRX b8Y5GlYjz7GIYucCvyYI9xnDE k GJwxMp7qwMwvcInkQG0hHQHjr ebba298MzAmf7toYJGzmVGeAN gyJPR4W29ih2N7LCQrGFFjAAR 7 iDI9aE9htYudymmqjPQunUotu lAxvUyeRVomHLtqC133RLYqgQ feIhCOPvf2K2FwTkt4MUUwqMv s FK7aaJEwQGgcCz4sbZzooGoxP C8bNYJbnchns807TzIzx6iiRT YxaYDlNGauFTY7Q68yw3C5RVC w HZBuBXO3zUY0oO6tyMhwdjgxa GVmdDsgdmVydGljYWwtYWxpZ2 33GKUmoKbxTz4TEbh7W6JsMwz 0 JBNkbYsgTC0yiUPrYTobYp8vx WmuuYkmBY0qLEQwgnykd092Qd Zfw7xbPAYvpBCgCFgrLCS0K53 s t5A6FEEePBAqYMN2ySD2pU9aq GlnbjogbGVmdDsgdmVydGljYW blVEigM502PNQueSigMaPvqWJ y OjwvdGQ+SH65gd80G7GuMwekA pe2LXDuIZW1uZN8vY7gDNAxRS afd6D1gNW3Y0SgrdRwfz0dl0p s YXBz (more content not included)... [facility] Consent for Treatmenton 01-29 Consent for Treatment [id number]#1.00CD:[address] [facility] Multi-Wound Charton 02-12-20 Multi-Wound Chart [id number]#1.00CD:[address] [facility] Nursing Assessment - Woundon 02-11-2023 Nursing Assessment - Wound [id number]#1.00CD:[address] [facility] Nursing Note - Woundon 02-11 Nursing Note - Wound [id number]#1.00CD:[address] [facility] Physician Orderon 02-11-2023 Physician Order [id number]#1.00CD:[address] [facility] Procedure - Woundon 02-12-20 Procedure - Wound [id number]#1.00CD:[address] [facility] Progress Note - Woundon 01-29 Progress Note - Wound [id number]#1.00CD:[address] [facility] Coding Summary.on 02-10-2023 Coding Summary. CD:[id number]:[id number] Gh0bW w+PGhlYWQ+AY7HVMSkP60gnRZ kdS0qM3OORCgYQyhgJBGAHHsQ VfDovdPcPW0pgWVaWRNy IC8+NI5kMZKbSudcqCSln5O0q DB9C52djh9zZAyzsJS7HHWoFo Qkbqypy8ditMr1ILmuFwtaJjI t KXCznO51GAK0wS90Ue33sVBef WEkg6qmaJw4MrYzIIHaHDL7xA oxOHcuh2ZwZXEaF14uiHXvt9P 6 NPFftGgkjTShWpWieZZ1vS4aH Iywduabf3sskaayEdi1ml88oE Dre8L3rFI9Y7YwtwC3KIXuzQT g ThasbYCXfJ0eatjrv8bcmcmoM zLqGJIjFSz4AMh3FTAgqBrtHh CpOQ96XYA0MBCdyyVcF3IkVVO s jHkhUoT3l3Y6Wi9CW9GWDkkpV 1VNTUFSWTwvdGQ+IA94vs94G1 IoUdceNhv1OMHhNOT8sWB1zC1 n AQZxCYnsc3J4kIY0T7DkgwNvb r2pv6ndCXZjZIjdS65rvSQnz5 U0OZMeqEV1JIBpcOnhTrLuaQ5 3 Oyc+ZIFhtIxdm3ZpSdvvy4uvd 2preOe0YcvoUZBmdgLjhDecQF X8p1KwJx6yGTJfpCV6yMP3tN6 i XcAqLyT2NUclD098BeOszGMuX huxY09pO8UqvUP+XKBkStt7ZJ WkwHzlSF2vP6QgPCUrxyspzOS m hGjdGJ3xIUCgftdoWJPswL4aP GCsV6x3FuHnVbE9DNlvV1OyPA OutdfhRl92uV5gOrXjBnL8CJe u W7UimiK2EUKjfPGtLCwjLAK3W 32jx1Y4SSKoNZLnFZI0sDR7mD 1hbGlnbjogbGVmdDsgdmVydGl j RDurSWnlK538ZRWycHfpKuOkG GluZyBEYXRlOiAgMDMvMTMvMj AyMzwvdGQ+IDNhMKK8bRgdIZO n vEEgPFxbBt9dqKbgrWyaPN7aL KBenpraHISktX1vDNXgsDNblF neQK6pIZAtltqzr546OgTbEUY 0 OZXdbOUcH2RhsO6mPyGhNJTvW AXoN0MwcFDnTKmaM105OMcdLn L1YAGdpgJaH8OiTSRewGymBbM 0 y9X7Kf1Ah1PodnjfI7BdsCFdL eTnPaqmETt0T6NfNnuooNO+PC 03NMZsHY55FCa5DGO0uGhvISs i NFFnB5BhdX3eNzSfVQYmACFgA yc+PHRhYmxlIHdpZHRoPScxMD CgIpZvrMmmXM9pJo9cFQIlNLG v bMnmaJQyVjDwu5niUWYeOFkpJ S1iqWapY4VejXZ8CHAtl3t6Bx 76J48rV9AxkVZ+QISabMT5zJL 0 rY5gMtEqPsW5UGwdQ869TuNcx OBhWuupi2ztn9wktOx4OxB6NZ MlzrIweWrcQXV6k4BoFr99E55 s IHdpZHRoPSIxNSUiIHZhbGlnb d2dyB7aXc2+XEUxvRM6uGC0kN 9bJlBsUtI6GOyaG554YcDbkPO v Lsvsj8uze4xabHp8NcMzTIHad oEemNglZFA0w9OjCo93H9GyoM qjd3AdGbn9le71bEPga0L8vBS 9 P9NpFRFkdxwimIFqhDhzRL3fQ CXqlgseVOUufF7cVUHaY4y7Cz CnRbR0MIomQ1PfopO0KXAmzWQ g WXDyqEMQiY9wbaozq5ucsrfwN cOdOXIeDQc7NQs3QVRnlYjyRt MmPWU9XtS2WHK7nRNirL6plQb n xozatX4vHqk+BLO7cHDuhUTDO B3sOkqieYK+UMTjSLW9xGhjGJ orBWKjdH0vNIQaG0j0SfSeGjX 1 RGkmZ6PasaH5NLJfbQXaTTXht QWMuC3shxxqn5aoidhmXmUpQN SeIVr2LYo6AFGxkPskCdPaSCF 0 FoN8DVQ3dTCkzJ4llJacvcbor G9wOyc+DausmZlsQUD2HBz9O0 GmXhi8HBQxsQwuBM0tkXFvXYw u Ro9ozMiblVvuAX4pFAXqjofkc 767CgMgh4czFBLrnLZqYJxfZY B5Y67cn0M4GFUcQWIyGNT6zZQ 4 nU9dsYycktpwpNFjrFfmljIlq EwbDWhdTKveQ819ZRTmkEpyJa TtWTh2R0SsWdo3EUEowHclTU5 n pRIqMApwMa2bmEggfCvhQR0aG XJdrfley094QpOak6voEZMqsN IbHRxuVZP1S45te7S9URLgPUN w YGP5gTV3iB4hvXzxpkhngXWak FewkmAwkGhmEMaqIWmyF329TJ NugBvlEqLkmYl8Y6QfElh5VQE z nLrqUV0oyJSbTNamIj4uvAsuz VpyQS6gPHLvelaig769DiFpv6 aeVHLqkKZoHGajVAG6F93gt8D 6 JXKnXZTmGTK6kCB6uX7taOooa jogbGVmdDsgdmVydGljYWwtYW nmM818EYHbhNrgMyZxdZtihpM g PWxkGHo7U7NuCymerZW+PC90Y MZrHW21rDLldOLdy6gpiXr1Ek EdZDItCQO2qQnoOZhvz4IbOGV t L39gwZFqg4B4KCUfgGvixWDcS lRaaQZ0gY6mPZkucdcoy1oiod yiUxdbl0twht66aO44N33lANz p CXGnEWPvLTUnTEDfkPtmzj8mi G9wIi8+EIIcePI7rHP3zX7qAX QfUpA9SMdjV958KcXbiYZoAim j u4pqo3ereTn0UnT1GZZollItf NhjNQI3h8DoQq12Y93vVSofOP VzSKRsHEZdBVGbmWhimt3dmQ0 w Ii8+TKQvwTT4jIL8hM6oDnTbM kX3SGtnD515SsDkuXSkYsdkP5 4gD4MtgSC+YHFaKdu8HECroUi s SN8bxXNcZXyhLw3aMPV6RhZpV jExMIykJ0QoGCGuvgolclmgrE V8KTVfGWExhQ89Mu9acSgsFWI w oXNQlV4znlxap9ojflnePeEmI XKuGKq5BNb0HTPhiFckLbUfKJ A5LcD0JYG7eQMbnX6omMkqsbp g wM5iK7SqGLPosfniGm85iW9hO xGqNzK4RZkuPqu+VEFOTkVSLC LFG70BASPtWKydlMQ+PHRkIHN 0 oLrhTKzcBFThwT5lDNIeF1p5Q fRpDiA2BOcdX0HsSXErauvwMo 55vK2qMzSiSmP2CIxzF3JgmaM 6 QHQkpEYkSBxpSRN5Q22ti6I1Y UXrHXUxGZV5cQX3fO8ijRpvej ogbGVmdDsgdmVydGljYWwtYWx p A506DEYpsAoiJgHvCtA6FzW5N Xo7D9AcSwy2NWPqjTegLI0pqJ ErUHnsDr9gsGyokFqnST8pGSG p xcsnIWTlmX4vGLRryTVjnZrqQ N2kGSOyxiule649RbGaNXG6ZX QauMOyF6WigT2yUiVuOPQiPFE w P9UdiEKeFApnX628OIpfPyR0I TLuwqCjW4WwTOXssHywMrK9x1 E8Uj52FONOMBXhclcsdIT+PHR k XYZ0gZlhGZwyFGUgeH9uYSNtP 6j4FeZlQqB2YHwvB3UpVUGith uxJw45gL7mUpWuOqH0IFnjO1K v zjZ4RONhuFGrABrpTPF5I76ov 1S3QYAvTULfFGM9oYC3bB1wiE lnbjogbGVmdDsgdmVydGljYWw t SCfnC910QAZooYxsAj2tiSB5I 9VfBgb0OUOjoKsiEV0mmYGbYH lwHw5agAjfqDbaKU7yITZnsyt w SJUfnN4mULLacBNagSpqPP3hT GLgtjlzb971IwXhQNI3SATedT IhC0XweD2mRfBdFVKeZOEqM0F l bVDzGOnuX888ILyeYeK6MQRny tNiB0BuKWUdyLhtHkH9h9K3Mf 1TfLFlISDxWY84EJ89KC51W2X y PjwvdGFibGU+PHRhYmxlIHdpZ NPnMEnxBQUgJoZseFmrCJ6aCe 2oZJRsIILqfZnfdNEvOfOkx0f s BPEnESmfRT4puWhtG3LfoRJ0E UMtw2e8Wz64H45qD6OqmSA+PG ZnxFF0oAS7pH5bLnSyWeR2UFy p E522ZoNprUBxPptyn1rmq7ara Rg0WqUkEJUrtoJfkTnzBUJ2f3 TiLz51G83qZAziCTVsDPBwMHU i QQUrkUygdo9coO2mZy3+PGNvb RW7nSG9kC2hXuNzZzW6GUjlE9 57ZjNfbHJnBjgjN06jO5UvzDN + SODhJna5SXYsfJvtTB3kcDOeY UctQy0qBBU6YkOpOcJmMInbL6 OqGAKcejxazgomaBW9BPLjWDF w eI31Tt0deSkqTf8yMVQzFHU8E YKvhAPuD6XouQ5aGyKwBCXjFV MpJ3SsuLCmPLxpJ126NIhtOuI 7 HDLmfbVmJ6EsSMFjoSyxDzU2d 9O4Ix3JyNibqGWgRE2qPcVlVA f0J3MnUgm8WECnbRydMD0voWJ k QAgnJo6xyUhwnUjgDS9bMFHet tigb804OmRkk0miYAEngGDqGE kqBCO9I54qm4L5CUUjHJWgIUG 7 iEG2fT6fxYpyknrqmLFluEfkm tRldYsgKPdfLQtaO604FLMroM ybIfNZYzc1I3DbWcf8SRQvrDj s YS4xpFOfQDbqDb3ppZfvsErtW F5bYOZfxvuss779PaYkg9sbWD JiiZDgNWznJEL4T95jv2Y4FYL w WEPzEJI7rHN8fS7ziWozizfyq GVmdDsgdmVydGljYWwtYWxpZ2 86WIRbdKonXm0YEtv8Q0UgBla 0 CLTvxKieYG4idKYzKNblWw9me XmplVieGB2rGOZfmjfbc297Ca Kiw7muNMGyoLLyOIwkZUE9V00 s y7H0YXRpJTGeNQH8nGL5tX3vl GlnbjogbGVmdDsgdmVydGljYW dpJBnlO655QRPguOuqDgJrpUA y OjwvdGQ+VP80gu72Y5NfOzxeZ ki7GKWgNVI3tUA9pK5mMPLqCJ ral0J0sKB3M0ZfnzZnpw2dz7h s YXBz (more content not included)... Normal [facility] Procedure - Woundon 02-07-20 Procedure - Wound [id number]#2.00CD:[address] [facility] Consent for Procedure/Surger yon 02-05-2023 Consent for Procedure/Surgery [id number]#1.00CD:[address] [facility] Nursing Assessment - Woundon 02-05-2023 Nursing Assessment - Wound [id number]#1.00CD:[address] [facility] Nursing Note - Woundon 02-05 Nursing Note - Wound [id number]#1.00CD:[address] [facility] Progress Note - Woundon Progress Note - Wound [id number]#2.00CD:[address] [facility] Coding Summary.on 02-04-2023 Coding Summary. CD:101107NX:[id number] Gh0bW w+PGhlYWQ+EV0HAQDpX58moCF plK3JZ1mWTB1CNNCOEXVOUP7R OD0ckNL1FEmmK3YciyQu QunhbTVbBX14HBq3KES9fHlxR EczjT8slYRaF2y3OvRtVH41cW 38FJaiFNPpUyI6SuQnlyuuyHB y O3sqZfRogMHjIsm+PHRhYmxlI HdpZHRoPScxMDAlJyBzdHlsZT 7dJc7eOWXtFKGqvRkbwKPxHqJ j o6esKIIcRHtlAW8tpBglH1Lzb AV6OPYnk4u6Xg89nTU+PHRkIH L5eHnxMOelr415RvGqg2kjKPX 3 sNSnXFzmSRR0Z72ts6S0DRDnZ OFcOKA2kIA1pX4yxIzfkvbkA5 OpuPUbToR9MOI3qWQjdO0oiVm n oqcylL1xMxs+L80OQJ4CMWCMU Z4KGjh9H0NwDfqxhXZ+PC90YW WzRC78kJCltYRum8srnHc9RvA w OXDrZYS7uQaeYBjkq5DlLULiN 99qzXUae9Y2WKEmiLqluQSdJb FarOD1yJ7pYFgtdmxui0sswht n Iwijc1smbn04vB38A79nXDnkF PGkNUV6MLOrUNZoeArfii6ckM 9wIi8+UAwjo1qbi3gdjJl6PmV w FTVzcuAhpWdqTZH5m3LrEp09R 8GamByab3SdZus7zd15jGFue4 M6aVO8DIyjVYMmuV4dXXafWdV 6 CWJwUtCjnI19kIHuVVtqHd6yd UhqyZwiUX3cSGAqhjktGMYtgQ 2aVQKepISsgBohLZ7mJHJrzsv m l726AuGeLPQ8LNCieOGnP8Jfv T4dMrWcYFSgMYUdN3KztMObZA mtQ372HHxgTiR1UAKudmMwD7G s UBRgzBzoBmY6w3D8Sw5Vt6Yfc wdhTKL9DIpyOMEpFxJ4WlDzCo R8P3AhTpa3COTkkCybFA8bJ6P h GZWaqqrpjonmnMR3NDGnGOCjp P09dGQjXNovDc2fl3O2o757CK TvLXGgdY04Ar3iwRvhLZFljNN U kD7cbzmnx6gthaeoSnQeMZOkN Oa6NYd7TFUqiReoFnYoAHB2Ve T8ZKV7kIAahL8laSjuqufnqQ7 w Oyc+A91ovS1vUPW1TWZ1njatX CGemqQgQL08QD87O2WoIgmitI FibGU+ZLMnrlKfvJatHB5oEnQ j f0xcw5ApIClmN4VvACBfULtfC hw6LGXfJAW0fHY8xT1rTZKwTN hpl2V4jZO0X3XtjtJqwz2hk6a s XWNjEXqvZ48zgOVra6J3ZFNxs BC8TBUfyJxgOmGymN15Rnh+PG GueRmtw6VzFarab8xzo6gsdUz 9 KdYoWACxurVsrWbuSZT5g1EkL h47G93cIKctPABlPBNeTOQnOD EfmMxgud9xeO9tMr0+PGNvbCB 3 fMK4vC3gECJcEtP5LWchT966P zNhqRTmJzwyc5vqm3mmpLq4Jp ApBNRmmgRksBcuAIF0l1XfEu7 8 V08gRLrtJIFgLNHaQXAtZSNxs Bcyej5tlP9eXw7+MY9do8ekjw 66hP54eCH+ILDiNLO0rEvgHSy w DIIjpL8fVEvwOyO0RZZgZtXln R65cIVmGJybKw4zbPntpSyxSS 0lFHHkbxxyt410JaEpe2jlJTX w ySGzFSvmRGB2B23di5H1PSIsK WKvVGQ5hFJ6tU3omWjbpmeorA QujYvxyeDgwShoSDfrWYolF15 6 IHRvcDsnPlBhdGllbnQgTmFtZ Gt3Z0PpSgy7HAPbnAxvNC1hbJ ZnXZyvSi4vkCowkZpmES1vLCR p qbqfv559VtXat2ggCQOhfTPbL PlqFYU4X16tg0G6VZDmLGNeBW I1wAS5bT7zgOsnfwjwuOVrfZo g fqHlsJtwJPfwDFknF159VHKwa TgmGwWjadCrFJAwaDH1WM50MS 41hGJqj1U2sNY8A5WaYUPazqh t dhjrgNM6UCFcZCHcgV59Bl2ei HcgQx2mUPEhAIT1DRPvwYDhE3 EgrD9lImBzHQScORNzY8PgaTE t RZmnQ688BGerOjP7LXLntrXkS 0YvCAHafPytAvR8r8D6Dl4GX6 W3OJ81VC00jNZcl5I3vHZ0J5T h VLWaaqbietahxID4EWReIDYzt H51Pk8ifWgpOi7fWVXgNZS8FV TdtVWzV4QniG3dVzOqJPIqVUJ w Q3CndFAqICnhG801RCdzNpA4L SFwhsVzE0NmHIUelTcaNmB8x2 D5Mf4RNZa6KO36JU92tEZov6J 5 wAX6C9NxCMHslhwnbyuhtYY2F DHyVPPtsN25Hf9cwYrqSk9fWD HaTMI6BMXhzQCyK5MppO1iBiW j CLGiWBCsD6DsqGQqWVdrB519F VbhDbW6IOVhkhRnE1CcCTDdlN bzVjX6f5B2Tt3RFAFsVL49XWG 5 wIL0YT33WX87F0FuZryiyPLoa +PHRhYmxlIHdpZHRoPScxMD PcJdJlpGgiLT9kMm7yLHGxBMG v hNpvuGAhDfHcp6pdHVAzZBtpB A3mjMjaH8GakUC6EKIsk6i9Lu 79K65lL4VvsXC+UGQrmFI1tVF 0 zS4gSsFfKaX7LCgkA614KlMun FLvZaaua5ugc5rrgXv5CgY2HA SboaOviRjrWFZ0f5ZxQm44W87 s IHdpZHRoPSIxNSUiIHZhbGlnb b5bsA5uFu6+UTCscBY6cBM0hD 3kTkFvKpJ1AMhuO328DuVkqYH v Fboiq4xxn9fdrNl2EcYhTLMip mUyfDzxPVI2i7ShIb61I5FqsK xza6CmXsq1bc22fHMfd7N5oAT 9 E1NvSVKktwfdoQMffKmmXG2sU OQzkhcrWCHzxZ8rSJEyU0e1Pg LjQzS0OHztX4VxgvL9GWXlfAT g AJimOTH6Z74rh4M3YXPnYNCuF BC9lCH8dU0qmCrqxdxrxQSfiW cgsxDodZwbAKgaANheV762KGJ v dCmvUERxmI2xQTWleNAvaOxiR L9sDNHpjvpbEeVREw4DRclqAC 4PEAiBTBa1U7JxRus6ZRFesCr s QD5muESaVJzaVg1wjPrwfZntE U6uUWDwibpwQDHszH6sCHLpeQ RqyWrcKJ6rTZInwjvoa787InL x AZZ5ZLUvsFFyC8HjcS4qQfDaC IDcNRQrK1XwwYCfRWliC096MI qcQoM6CDAgreVzL8XkPOQrgYn u NtO3v7I2Se3pKw2uOL1oOEQ4F U60TE45ySTru5X4aBP4E6VnTA IplkvxdcufaMT8UWQqRAFnpJ3 7 eYPvFDuvGx2zq6U7l453MDCmJ EAbcH32Gs1pdZbhRJEyxFEHdD 2rkocxo7ybloqvQgQhCOYxZLu 0 DVn3GVQrcKhgGqSqCCD0WsK4C ZH8gZWtyK4ooPedjgbsoE2oYz c+NrRjSUMiyqD1E2ReAju5ZIT z uDjzKJ1uxFTeDQwmMr0jdJmhf QktCV1yXAFaonosDXFqbG6aZZ DzeHHsxZvpHX7vPTAvgpyrl62 0 GhTjLLJ2IRGxtMWnU2XqrU0kR zBrWZDoMBUlA4DwkZGnAKyaJ6 58QAgfStH6QANmghAqA7JtWVV s oPqdKoB7v0S7Cs5IAZweBX49N B11jYUlp8X3iDW6J4NrKJHtqe ljqnhqgDD3QYQmLCQwlN92uXM k HCynOl7jo2C3u275SIVkRIOib C49Lh3srMnsFCHvgAHZqR6ano vmk2lnsasrKoXhIWAwYBz9BUy 0 EMTujFlkUrShBJI0PtK4YOL6z KNifP8vgUcujzjtjH7cFkr+T3 P9uZJ5qSRhzFgkaUY+TD84qu6 8 A1ZuNkwoWto8BAOdLOZ1gQF2a M8wULJfENjef2S5wUX8A2Foqx Prhb5ci9opUAEdXPfhR04wmYQ w q2W9TZAikXJ0AXOlqQwqCeMhk G93Oyc+YPJvbWukl2QcKxukl5 sjl2fsnJg8VqZhQUDwnzVrcWj u IPO3t4UaMv36V16gPJyyOFPiN YMjHYNhGIGdnQrvpa3foN0tOx 8+FZNytJX6xEA4lE3rBrMpOrJ 2 DRyjM937KxFbfULpBrsbu4zfs 2ikwZc7QjMrSZHdwxAmxUakJN Y4d8JhKy39Q6RvmVvwl7NoYos 0 aq07gZQoe8F5pLR8N1HyOOXxr llpmBCzqMtkOA6hRYTeekoaTE HolZ5hRPBvN9u3IiVcDuS0PEx u J3GgynL5JEOvnHLvGHXkgBYYv N0xinmqg3fzegkaBxUgLPYbQJ r8MMt5KPLgjYqzFpCxGVH1JlL 2 AKC6pDKmyK1nqKkzzmxxaY9vJ yc+UUa1n8pfoWRoTB4anPJ9HY 17XY56nWBvg5V9xIT7J7RqQXZ p xlbkzwtxgNW2DRSbUATfzB74C l3tcIzmTn4oNUDsJOZ3LPMupY GiE4InfW8bVfHhUUSmJQMyI5X l bNTbPGwgY129PVxtZeS1GAAcr dHaB5XwOWMeqKzqRfH4n0J2Ko 9UCX96LP70QR01mYUpt5Y9rJE 9 H0IkNNTrwvfuhnppuPO7SGFrM SWtrG78Op4kbHnuGh5dCOFtXC I0HLVxpMGbX3EibA0xJwGySKO w UTEpW3YmjBOiWClpZ530JLroZ nS8ZNGaprZuX7PcLXCcdLatAo R5k1L6Me3LNd61XZ11KT59yCM g j8C5iMY7Z0KqNYRtwyvjezqmt SK0TWDbYDStpZ88Sd4qyCndYb 8oMKUaFNH6JDLdnVJqK9SczT0 y KcWcBAOnRLWsH5WxeLMmPYtwN 561THwpNmV9PHKlgwHgH1EiCG SktZdbStQ0q3F6Sq4VFUpywzh 8 I9JmYigwdMW+XM62EDVdIO07b ULnnXNji8ynbUt0YdLqNKWjHJ W2iFfpRVmsr1UiALFyW11nqZQ w c2U6 (more content not included)... Normal [facility] Coding Summary. CD:[id number]:[id number] Gh0bW w+PGhlYWQ+ZV0WBVNvY19inGY ypG8ZC5bPDW9DCKDYIUMVGM1U NA5btLB1CJaiH4HuitWy OrzcsNDhYO56QTa2WPP2jJmgU ZkluH9sePMlW8u0OxQwXA20rV 32MEfrIPPwSrC1GdItldiocJU y O4zsFoBneFOrIut+PHRhYmxlI HdpZHRoPScxMDAlJyBzdHlsZT 0wBm4xYLYoICWluQbymDYzUpG j p6koAEOuHAutYK1htLviJ7Hmr LS3QAFgs6n3Vt67rEO+PHRkIH W1jEraMLfze777VjAne5wpNTN 3 ySIpNDhnOJF4N35mw3Z3YRPyP EMyBJV6vND4gT1syKdjdscqU4 PppKFqCkV0CQF2pIFckY7xcGx n obkiqZ3pBvm+P75EFG3PCJFWH M3AQhu9F4IkWxvxvIV+PC90YW VpXM95hQHcbKIpm0owdVe4MxB w FJTpBYB8qYbhVLxpb2KyAQVwX 52nzZZdd3U9AQJlrTpiaVKoTb GzaTJ5fU1lIZgrpelhq7hjage n Dbkgm4lkmv50sU54T32hCIgsC XIaMIE8RHIdBGSpqGwpbk7etD 9wIi8+GTxsv5reh4xdsUt9McU w DRWoanGfaFauOER8k3GtKm13W 2XfcOpfl2NbHkk0fp58hZNko5 V8pVW5XVqeJKUfoQ1tZIceVhT 6 NVTeRxKltJ43hPMeKBnwDj9yv TkqgKqhFR1tMGPboqodYLPzoZ 3zNACvcPYcvSxkIS6qCTKfibn m k004WgQoLYM1QLRyqARiH6Wlv O7pRmMlKYMmDSYdZ4ZupIFnUG ozG465YRuqMkK9AUMnltIgF9O s ERCppRnpAvO9q9M7Kf3Og6Tad oaqNAP8ZYduTKTnJmF4IrLfFy E3Z0JkPas3DTYpaXzkEO6jI3C h MYQzsofztbeyeGE8KSBmEHRif T20iHHyHYrcHq1wz6F7k575EY XcHRTroG93Gx3slExbHYJyvJQ U aW7vlaghu0qlwcmpZyPcXXFuG Rd4XMz3VXLepQzdRyTvBAA0Qa L7DLB9sEKxoR6yaOkpamkkhU0 w Oyc+J97wuI3pHFW1SIS8ixpzQ ETfziHlGV88CS99G9ZlVikqrW FibGU+WUEycoSqqTmyDN6rBuG j e5ywj2BwVLslY7DmTHDeMAbvP be2CUPfHYI4hQU0oY1pLRWbXI eaw1B3mQC4A4HxitYldu6ob3d s MQKjEEljO37stMPuy5O4TFZqx XF8WNVjhHrmUjCnhK30Hyc+PG QadAhzc9WdPgxsv0lgg5rvwPo 9 QmYoTWMfnwEduGstFHG0w6RdM m10N38fOBfbMFVpTRAzFVBzHC UwvDquxy3urN7uHs0+PGNvbCB 3 cTB6qY3kYLGnYoV8SAvmC924T jLlrANyBhprr8clz5hwsWm9Lx MuJSGloqAofLjuXTF6s8KvAv9 8 R37lJLqmVJLkEGTiFCQzSQSjp Onyib9ldX3uHp1+EH9uh1crqw 71rT64mMB+ICGbTIO1bNuvLWp w GYJxpF3rWIdtUzM9KYPaYoMdd G59cNQiRJwhQr6atFtdbHilVT 6pBXIkzbclw233NtIvp4okQBF w tOTvBBnoOBO4K36vd8R8ASJeF FQuQGP0uIZ4hH5ueOdnbnolxW JanYhmvhDnvBuuKWtqBUzpG66 6 IHRvcDsnPlBhdGllbnQgTmFtZ Ks0D4EmGzl4QVYewYcfTG1ruX GyRWiwSf5wyPkgmMywJM2kSFD p efzxn336WeAtf1mmCRZbaTLyX PlxZWW6X70yl0M5ZPEbDIKeST J8sFB6gW9dwJbwqskdjNVpwZj g dsKpeCuuPJvyJSquA457DCYqj YfvRlUapyHwJTXlwCX9QU00RT 51dRAsx6S7vTB5Z4TeYULmqpg t hwfhrKM0OVRqLDIchP09Sg1lb FqeIb1rPEPrOWJ8BOMztUKjZ2 UjmC2iBwKuVNBmOZWlQ8HjgBZ t DQxnJ436FJkvOcY9ILAcudBeE 3XuJOQrrCttCdV2m4G4Gz9GR0 I4TS88JK88aTQvv9H2hBH2O4I h MGKlnvrjmdioeXX7ODFxDWAlj L96Qc5plHojOa9jWHOzERD9KJ IhgBLcA9UenT4hNjHaSOQvIIS w Y3WbvGXpWFfeX726YRinVzF0J BDiwgHsD1ZxTACkgJcyDvR4h3 O7Zu7KCJv4OI51AO56bRAln5L 5 oMQ0U8TvIVMqesncurlljMS6M SYrOSOyvG31Mc7gxClkAd3cRB KtRTB0GNYrtRNlF4VmtK6dVtJ j YCOlVMErH5IhmZCmYWbvI320Q OxeUiY3HXJfqdPnD6GoCFNjwC auWiG2g3P2Lm3JNYQtMT74ALS 5 hRH9EQ03QS49R0VaPvhqiXYtq +PHRhYmxlIHdpZHRoPScxMD ArLeWmnPmhWO2fOx1lFLHoEJD v uCdxvDCjAkHxr8voXSJoMJwqB L9lyExoO1ZnkEY1JDXav6g9Me 32J22kW8IdtWM+IAKynJF8wPO 0 wZ9pNhXzExB7WJcuO984WpBgs MQwKuwvu5siy9lspCj0OkF7AV PqvtLhwPifTRC0h5RvQy15E24 s IHdpZHRoPSIxNSUiIHZhbGlnb v0raG5tDp0+KRDsmXQ6cLR5zU 4bBaFoMtH0EYftD452TtLruTQ v Kcwdd5aas9jbyDb8ZkCnOFWrx pTetKxdLCY7x5WmFf80L9EhmI biw1FtGpr0gp17pGLxr9R1dST 9 S6EmJEDedqydnRIbfIdeQQ2kQ IOvsuuxAALmfX3qUHRvI6n6Ja NgKtX0RMkqA4LmfgR1CNJidCF g AUzsIMO6L18bh6K5TUOrKPWnB EQ8eCQ0vX5ouEhwijlmsRCavL lxbpPabKexMYkzQVphN975CQZ v wYwzFJHfzU8bDLPpsXNtdTcaY R5uDKAbchviCiMMVd1JWvavRW 0LUHiSGZh4W5DlZbs3BWXgfAb s AF5acHZbZYsqRf2shNllgFabI V5uHVQwkmxoWGFjvF2pIXAhrF UjvTigST1aZSOmammsq404BmG x OFV2CZVayYUzN7NbyE7wApGmV EHvBELgY9DfbIKvPAjnM646HJ gtAlN3GGKjkoQxE4TaOBDyiKl u FeP1t5U3Ki3oPk7tOF1qJXM5F L02SX19uFDvi4S5aNV6E6TyNV NviqbmptpzvPP1ZQMiLCMmzC3 7 lEYqTNnpBl2ys1G9v594PTLfB YSdrN32Sa3ywMfwYFWylOVLeG 1lybhkp2brudbaWqXtNWHdMOo 0 YAv0ABVoqYxlBcFmUFM9ZtD3K ME0pKPexM6bxZpkvxbemV9oHr c+LhJkSSBpodE6Y8CnCei8QJT z gXhxXC5jmEMrRQuuMj3oyEokq GlmZN8rIRKmmxjuDXPpwH1cAI JsrSJksBkoWN6hHJTcelupv92 0 TfStOVX2KCTvkFQfW7WbhP1jY mPeDPJbGLEwU2OzsBBiNBvmN4 26TAatAhW0GEOyhnBiQ2WhKVJ s hUboVbX2l1P1Zi3OWYigIP29F G36mFAcp9P2bQQ9Z0FbXEZahb qqpsmwdTY1UONxZULiaV82kNN k QAlwHy0kd2R1c841XUDiGZAmt G93Ww8tcFdoKMZrdHCPdR3tqe vft1wsnagyMeRfABBrKQc8YOz 0 XGMmmCrzAsNcFRG5CmL4LCP4g LWtbE6imOocwsvgjD4jSxz+T3 I6kJX1mMLogIshqML+SI47vp3 8 K7OcTbngBab5RHEcHMW2nIN5j B1jWFTlDPkrb9E2yKH3L7Iuwp Kppk9mh3gxGAOnYHciU41qyHA w b3Q2VAAsbLO8UEKmjMvrTxByr G93Oyc+KQHliYmwl6BzPgxod4 pxb0hqoEx2XbJrDYMlfjZndBp u LAQ2i8DjIl31C83lYGjtAEAgP HTcLMPxAZKgaNjzad7zfJ7jTb 8+DZJksFO6bLW7xQ5zTwPaZcK 2 OOxrF963UbEutQKnPvnln9ivo 6wfrLt7AaZwFTXtpkZcjPfwKU J1e8LdJo47Y3SkuMujo2PhNxi 0 wc80hTBqq6R3vBV1P1FsCKOvv mebmDFfcOcmVI9uWUKgvciiWF KmaQ4lLHSdI1c8PdGeJaE4LMq u P0XgjuA9WJEmcZRoPEFgvWCIa Q6iyaqcs7crzysbTrLmDBGnGH v9YGb9ZYYorJizOxQjSDS3MqF 2 BXR5zYMewG8kbNniqozvhB7lF yc+GZf8e2mzkIRzJT6qrWX7TV 72HL79fJKug1S0xWG4A0ChQDI p zjqwbvkpjQF2GBKzQMTjgC30M r1ssYvqAb8eVSQxFLT2WXUrdC KgE2YxbP0zRzFvMHKuPHMtV1R l nJSaYEwgU675TSzbVwJ0WBNqu eIcB9VpUIRotXlyKkY1r2V4Jf 3VUJ87SF75RK97vWXlf6B7yJR 9 N8RxDAAylpimoqcubZP8YNHjS MXtyN54Gf8ipBtqWp8jWTLkXT B9PGUguPBmC3OobB8tQnOaKCL w AMYcO5FevJZeBHpdW666APzbN tK0SVDmwoFvO9FhXLQbmRtvOi T1a0D2Xk0ZWs00GV24JF80hPI g m4U4dAN3B6TuSXCmffdlgsalq MS0BDHqJWWnlJ90Xw7weJbqWs 2dOJYpOVX1DGPazUYuH1DbnX1 y OaWfCMImSDFvD9YazKWjAEbvN 539AWtmXsU0APVkolKrU3PoVA LiuLnaNkC8o9K7Wl8UXLlgonv 8 O5KqCnzwyOY+DQ36ZLDnVU48o HUngQOrr7gmjHy7RxEhZWRyFP Y6jYxzPXopp2ZjLEYjU91tvNH w c2U6 (more content not included)... Normal [facility] Consent for Treatmenton Consent for Treatment [id number]#1.00CD:12 7 Normal [facility] Physician Orderon 02-04-2023 Physician Order [id number]#1.00CD:1 27 Normal [facility] BMPon 01-28-2023 Anion gap [Moles/Vol] 12 mmol/L Normal 6-16 [facility] Comment on above: Performed By: #### 1 [id number], [id number], 1022459 ####[facility] [address] [place] [address] Calcium [Mass/Vol] 9.2 mg/dL Normal 8.9-11.1 [facility] Comment on above: Performed By: #### 1 [id number], 3212172, 1143090 ####[facility] [address] [place] [address] Chloride [Moles/Vol] 100 mmol/L Low 101-111 [facility] Comment on above: Performed By: #### 1 7022469, 8719069, 2427464 ####[facility] [address] [place] [address] CO2 [Moles/Vol] 30 mmol/L Normal 21-31 [facility] Comment on above: Performed By: #### 1 5012569, 6091987, 5576234 ####[facility] [address] [place] [address] Creatinine [Mass/Vol] 0.8 mg/dL Normal 0.5-1.3 [facility] Comment on above: Performed By: #### 1 0880220, 0555526, 3565971 ####[facility] [address] [place] [address] Glucose [Mass/Vol] 96 mg/dL Normal 55-199 [facility] Comment on above: Result Comment: If t his glucose result represents a fasting glucose, interpretation should refer to the following reference range: 55-99 mg/dL Performed By: #### 1 [id number], 2125112, 6028456 ####[facility] [address] [place] [address] Potassium [Moles/Vol] 3.6 mmol/L Normal 3.5-5.3 [facility] Comment on above: Performed By: #### 1 0659298, 0837137, 4023483 ####[facility] [address] [place] [address] Sodium [Moles/Vol] 138 mmol/L Normal 135-145 [facility] Comment on above: Performed By: #### 1 8243179, 0845198, 1932607 ####[facility] [address] [place] [address] Urea nitrogen [Mass/Vol] 21 mg/dL Normal 5-21 [facility] Comment on above: Performed By: #### 1 9093677, 7102290, 6913599 ####[facility] [address] [place] [address] Urea nitrogen/Creatinine [Mass ratio] 26 No Units High 10-20 [facility] Comment on above: Performed By: #### 1 8417560, 0106983, 1149691 ####[facility] [address] [place] [address] CBC w/Indiceson 01-28-2023 Erythrocyte distribution width (RBC) [Ratio] 14.7 % High 10.9-14.2 [facility] Comment on above: Performed By: #### 1 7962174, 4200708, 8574199 ####[facility] [address] [place] [address] Hematocrit (Bld) [Volume fraction] 36.3 % Low 37.7-49.0 [facility] Comment on above: Performed By: #### 1 1510139, 0772445, 9381275 ####[address] [address] Hemoglobin (Bld) [Mass/Vol] 12.0 g/dL Low 13.5-17.5 [facility] Comment on above: Performed By: #### 1 8838293, 7478212, 0159461 ####[address] [address] MCH (RBC) [Entitic mass] 28.6 pg Normal 27.0-34.0 [facility] Comment on above: Performed By: #### 1 3785739, 6486039, 4115756 ####[address] [address] MCHC (RBC) [Mass/Vol] 33.1 g/dL Normal 31.4-36.0 [facility] Comment on above: Performed By: #### 1 5691334, 5898122, 0318909 ####[address] [address] MCV (RBC) [Entitic vol] 86.3 fL Normal 80.0-100.0 [facility] Comment on above: Performed By: #### 1 1328755, 3566018, 7415850 ####[address] [address] Platelet mean volume (Bld) [Entitic vol] 9.1 fL Normal 6.4-10.8 [facility] Comment on above: Performed By: #### 1 5540054, 0398450, 2577373 ####[address] [address] Platelets (Bld) [#/Vol] 272.0 E9/L Normal 150.0-500.0 [facility] Comment on above: Performed By: #### 1 3519226, 7644276, 3484851 ####[address] [address] RBC (Bld) [#/Vol] 4.2 E12/L Low 4.3-5.9 [facility] Comment on above: Performed By: #### 1 8338737, 0004557, 4770241 ####[facility] [address] [place] [address] WBC corrected for nucl RBC Auto (Bld) [#/Vol] 7.6 E9/L Normal 4.0-11.0 [facility] Comment on above: Performed By: #### 1 2788872, 7389578, 1325832 ####[facility] [address] [place] [address] Consent for Treatmenton 01-02 Consent for Treatment [id number]#1.00CD:12 [facility] Consent for Treatment [id number]#1.00CD:12 [facility] Multi-Wound Charton 01-28-20 Multi-Wound Chart [id number]#1.00CD:[address] [facility] Nursing Assessment - Woundon 01-28-2023 Nursing Assessment - Wound [id number]#1.00CD:[address] [facility] Nursing Note - Woundon 01-28 Nursing Note - Wound [id number]#1.00CD:[address] [facility] Physician Orderon 01-28-2023 Physician Order [id number]#1.00CD:[address] [facility] Procedure - Woundon 01-28-20 Procedure - Wound [id number]#1.00CD:[address] [facility] Progress Note - Woundon 01-02 Progress Note - Wound [id number]#2.00CD:1 27 Normal [facility] eGFRon 01-28-2023 GFR/1.73 sq M.predicted among blacks MDRD (S/P/Bld) [Vol rate/Area] mL/min/{1.73_m2} Normal >=59 [facility] Comment on above: Order Comment: Order added by Discern Expert. Result Comment: eGFR is race adjusted. AA=. Performed By: #### 1 [id number], 9347599, 5827966 ####[facility] [address] [place] [address] GFR/1.73 sq M.predicted among non-blacks MDRD (S/P/Bld) [Vol rate/Area] mL/min/{1.73_m2} Normal >=59 [facility] Comment on above: Order Comment: Order added by Discern Expert. Result Comment: Paramedic Instructor mercy kidney disease could be indicated at eGFR's of less than 60 mL/min/1.73m2. Kidney failure is indicated at less than 15 mL/min/1.73m2. Performed By: #### 1 9104567, 2077264, 8529674 ####[facility] [address] [place] [address] Coding Summary.on 01-22-2023 Coding Summary. CD:[id number]:[id number] Gh0bW w+PGhlYWQ+OR3NBODfU76cdFS qdA4AA3iGUL0RBWYKVMQSBT7D HM5urHL4MZzhO0PpzgKv KjfdfQKzDA78TEr8MFL3bPqpP UmojB4mcUHeZ4q5FpXuMJ27sR 89QWxjPSZcMdZ2XrDpisletDC y S3akIwEakBHcElt+PHRhYmxlI HdpZHRoPScxMDAlJyBzdHlsZT 8tFh7uZSJnQRRbwLmprSKeUsY j l9iaZIWeKAwmKL1rcYtqC6Sjr KO3REIbp9p4Oa23gNR+PHRkIH C5dCueNAycf121CvWac7wjWKC 3 hDNxJQyjXHE1X04ra6V9FURhA FRmSAX3vJS4mV3hyTnqscipY2 SomGGqNuY3JMZ8xKHopG8wcSa n xavobC1qVjh+P87RQG6YCFGKC G8XQpt7G1TlZmwcmYI+PC90YW YrXE34yVYcwFPcx7tciAh0TmL w AXVmYDB4wUzvTFmfp0AlNLTiX 90ebRQad6N6JEFsrTnmmHEvRh YzyQA4eN5hGYapnxhco5vsshb n Ayrmz8jjtf08mF08W65dKPcoB OGjOZV4TGTvPLUvgNzvqe4tvX 9wIi8+TSmax6vue2vseIe9LeX w JAKgduKwlEdkEIT2h4EgPm44R 0XffKhjk6RrMdc8ru26cQRjm2 Q3kUO3LEchGLFgtL6bEEwoQrN 6 POUkSsWcpQ47kLQkSZnhZa2qq HkwiFxnVY6aOELdwxzsQPJkwL 1oPFBcdPUkpLmmKQ2bWDZcopv m n895XoXeIFR3YCHenJMvL6Wwz G0tMhFgWLTiNMFcZ2AobXGwHT gbL382DRhbXvT0QZRlcdLzY0X s UVAnhSqyDdA2m5C5Bd1Em8Orb zhfFKC4YJajCBZkZvQrVvQuHb P1X7PiJag0MKZnpBziPL9dY4U h IYDsjidahoiljPZ7DRIoZIIyf D98jELdQDnjTo8zh7J3z167XY PrZDWfpU20Iz1rkWhcNFGciER U nF2cyfage7sfoacbQoHhHSMvT Zy2URb2DVLxmAjgFiKsQZB1Xl T7ZMG4qUKnmQ2srCmxkfgfmL7 w Oyc+M16euH1oQTN9EBD3uajgM ZYqarKqTU12VW67I4VmLmzesP FibGU+RNTmppYhoGyeGP9jAnL j g7xod6EnRIpvY3LfCRTmPGbmO tn4FAUeBQZ2nQA1wV6kJZApDS eye1K0fOA2P1RfmpRtjl7pp0q s OSSuICroG78wePFwc3I8KREyi KZ9ADUarIaeQdZbkS49Uiz+PG IowNrla4AwVnann0tjf0rpkGb 9 JnJnJKJvreTgwVilNEL3y0CtW u99O48pIVuxRYAvDBPuXSCkID IhcXlvia3ktO3mFg7+PGNvbCB 3 rPV4xW5iBGZrGyP6ZVwpQ634Y zLnmERxPjdyy4hmn5qahNd8Tk YaCDFmslCreFbgSWR9u5RtUl3 8 L45bMQvwPGPzLFEnSTPyIAAat Lgshq5lmV0vCo7+AH2bm0lmai 61iW80uKF+FWNqGOL2gDstWUm w ATYlnA7oQVqhYeX1TZJfWrXpu R44dOEwFXsvVu6gkNzilVrcUX 2bMXWtksnel176IqLyi8sbBRV w aUWaOJjqLUJ9F40pi5R9WNRaB HYcINW2hUO5dE7qdJabveibdH WltIvgerUwqPuiKMwxNAkeG81 6 IHRvcDsnPlBhdGllbnQgTmFtZ Wo8P0KvIec9DIWahKboJO3xoS DkAIpyGg6ovNcegPuxPJ6jIXP p pzfxu310XeHks7pfSMXdkDOzT WgtYHO8Z91jx6Z1MBZsDFTtVS Z0qNJ4nM5cqRqictcveXYyqNr g ydNprVjqICsmJUmjG517WFZzv WtvLxKeryFhVKBnyWZ0DP23TF 05bBUqd5Q0vVA8C3LqTKVahlx t ptpvqTG8BURyDAWbzA03Eq1lm OlsDn4bXPOgXJO5TZZxmHQjI3 WpyX7fCtVgZAQnMGScZ6MdeVA t PUazZ641KWhcEdY5QBZmroUhZ 9EaUSZnwLxsCtM5i5D4Wm2AI8 M0BU19UB98hXIhx9T9sNM2I4E h TUBcvpgqlqusoAI2GLTzWDUap M91Sr0zkDyxCp1vVEFmIEN1NA MdfMTeN9TddB5aFzMhTEGfJGT w O8KcjCKkKOgpE990VPfrIxE7C IHhrgVgX3SuECPjwBcbKbF9r1 P6Zy9UFXf3TA61TG84nMVzt5N 5 mWM8P7ZuGXJlledoxotzqFM5T YNfDPOawM81Rx9tfGfoWq0lTM BaHXA5OTGsdODrI1ZizC5pEmM j YVIwUGXgC2XujKDfKScaJ918P VxiJuU1ODBekaQqC3FkTJCwnW biPjD1c9O7Dj2ECMEkAI81DLQ 5 pOG8ZJ78CU23L6DxMnecuCMux +PHRhYmxlIHdpZHRoPScxMD HbXuGccQozQE3oXe7nAQQjLAW v mDxogLRtXcQjo7xzIXStMFqcN J6ubEjqB0SfkBR9NDNft9d5Dm 06V36zQ8AjtQM+CLNunZP5xYN 0 nO5hEmNgUlU8YWxdB873EuEib SFjLxkgn0vqf3gfeEf9EwX6JZ PsvuIarUjaVNT4n5DlXo38H28 s IHdpZHRoPSIxNSUiIHZhbGlnb s8tyH8zBv8+DZFvxBG4gKN1vU 9nIfNpLcZ6GAcoN676EzIwcXM v Ikrgh3ivk4bidRe1AyKmVIGug nLyjVsaGOS6s7YtCu31C3UgiY zss2SrHdm2wl74tKNez6G1sVC 9 U0MzZHYfhnhzlMZwlGumEM5cJ AWxuzxpEKApsQ5uDKGrB2f1Ft PfAaE0HNohM5LyluX4ZSQfsDN g PVrfRZG6F28kg7D1MNKxTSZzZ DG9qAQ6aX9ypEnoasuegUAieO diyvBxyYijUFdqXUvxE851ZXO v pDbhYWCfoG6qPMDykEXqrAniJ W0tSIZkgcsyEqLJBr3JQnekUP 8BUElSERx3U8GbVkq7OZMlvYi s XX5ufMLuOUafVs0zfMakkKhhH B9pENHebdgyJAZyyO8nZSQelW DxmFrlSS0oBMQlmnlfv494HjS x CVD2EFHjeZIoL8OuoI5kOmAbU IQpKGMaN8BrcCTzAZxhJ165KM kuPvW0WXDudrGrL4AaPFQdrZe u ThJ8g4Q1Ri5tXb4dSC7eLVF5Z S40YX84zCJjs4J5pGB3S2FkVE AnptroefsyjRP2VHEnEBAnrI6 7 rATpULenDv9hj1F5u991FHMcS QSjfO90Gg1skVjsLRMshRGIiF 0rbxhww1udigavAaXgLLQbNKw 0 KWr6UMAraBecBfTzEGR0OfM3C PL9gKLpeS6rbDjncestdY0aVz c+UrNmHKCwmyW7L8LqNis4QGH z sOtbFO4kfNYhJWplWn7tlOtvt DafMB0uIWWecoxbRYKizA4gQJ PagZVbuKwaDG8bEIUibbwaq15 0 RuDyHFT5HQRyaOVlH3PjfX5zY jMjRQYkFMKcT2ZzzHDuIVpnT4 45FQfjIlT8IZBoprJzR9KhNBT s gNasRgM2y9D4Kv9VAIuqMD62O K06qAYru4N6rJO1F0QgCOAxhs stxhggxGX8JFXhOBZtlM76bZF k FThnXe8uo7S6o606ZIUuNGTql C43Dn9ubQhcBJAgjQBRwV7guq sis9kvltrgBpTtGLHwHRb2KBt 0 KKFsuVegWiHdOZZ8GeZ1PUX3q BJvfB4ptQqtrndfxC4qEsb+T3 E1qGW0pWAauBmauQX+TE95lk7 8 X3GgJypnEux5VWKwHHR9bTI2h X0cBUYeSTstk6H7bWV0Q0Znws Nqea2qc6ncYJZfRSyaR51nrHS w x3S9GUSlqCO1NRInmPtkWqGcz G93Oyc+XQZsyTsxf1ArHlwth8 ktq5thkRw6BsJiAPHtckGtuDo u YBN8q6YmYy11I12cSHbfWNPxO CEyQEJmLWWzuTfccn3yjT4zIw 8+FDKpnKA3aTW8yO7fRgZtBbU 2 ZPlyT009BcByfWDtDjujr0nyu 7hwmIs1XkZfASJtuzVubNumUB Q5r8BgRs64U2IqaJtzu9IjTjr 0 pw12aWGtp6T3jQP4H2ZqEBIvt fjkvMMrpIwpTA7oWMLkwawgWZ HueN0wGIUtW8i2BjDaXoH4JCd u Y1QoqbN4JHZboIOyZOPnnQXTj Z4gzwisk6ccetqeXrZuYNJxFO x1SAf8XJReeBkqFdEjCSV6JsE 2 WJN8lHOecO4xmWyyyxtljN7jL yc+XUe1k5zpxPRhSB5wvHD4SI 26SQ87iOHpu8C1mLD9D0SvVFL p yhmwmeghcKJ4ZLRmMTIupQ40X v9rtZnxRz6oRLAgEJM6CWTftK YeN2FngV6oRkGtWMEfTCPgO0O l qJGaUHfeT829CCctZuQ5KKZho lSeY2GpDWEmzSqiQcP0s2C9Ti 1STI59OV68PZ66kOUnr4E3tGR 9 C2AfWVEeqglyccvrgGZ1FRWkI GXuaS15Td7pdHxwTi3mPJBuMC X6VKNzkTVqX2SziL4jKyGuPZI w XDLkQ0WdeNXjRCdkS180FFonY iH3MTFfckQjE4AzSSVwaGagZr K2x9R7Hu4LFl96ZK54HV71gVZ g r7W3gID5E0TsHUSribchpevfr OI3GMMmDYQrdM19Zo2niLlqHr 3zAXWcYNR2MLMugWShO2EeqO4 y KsNmBEYkAHYsE1GroWEpOIonQ 421QFaiWuS2MMXoljGvM7TqZI QbgIwfFgB0p6V1Fo7UAQzytca 8 D3XxQwnxxOH+RG68CZZnGG74e HQouPEwk9vatRw6GtDsVFMbBH S1fPbvYXvqg9CzCOCzK09crMG w c2U6 (more content not included)... Normal [facility] Consent for Procedure/Surger yon 01-22-2023 Consent for Procedure/Surgery [id number]#1.00CD:12 7 Normal [facility] Consent for Treatmenton 01-02 Consent for Treatment [id number]#1.00CD:[address] [facility] Multi-Wound Charton 01-21-20 23 Multi-Wound Chart [id number]#1.00CD:[address] [facility] Nursing Assessment - Woundon 01-21-2023 Nursing Assessment - Wound [id number]#1.00CD:[address] [facility] Nursing Note - Woundon 01-21 Nursing Note - Wound [id number]#1.00CD:[address] [facility] Physician Orderon 01-21-2023 Physician Order [id number]#1.00CD:[address] [facility] Procedure - Woundon 01-21-20 Procedure - Wound [id number]#1.00CD:[address] [facility] Progress Note - Woundon 01-02 Progress Note - Wound [id number]#1.00CD:[address] [facility] Coding Summary.on 01-15-2023 Coding Summary. CD:[id number]:[id number] Gh0bW w+PGhlYWQ+XF1LKRGaU13jvJZ yqG5BP9aWFS8HFWBRNGIXMU7M UE8ygNR3KYcxA2UuduHh KghyiDMmNO21TTe1GAT9bHzxY SqwaY1kcUWrI9k0WdMmVP33bP 00SDnvYWNeQlF0MaCfvmxpsJQ y V0cmYoPovDFfIzf+PHRhYmxlI HdpZHRoPScxMDAlJyBzdHlsZT 4tMd8hPMFfYUUaxFrfsGCnVnG j u1hvGLOzZYotUT3mnMecW6Bdk IJ2TDJpv3z6Pg27vQL+PHRkIH B0kBgdGMdby272XcPvu1yiPJA 3 gLCwOZcvNUY6C36wf8B7FXAqU JGkFJM0aKH4zW0gmNxazncnP4 PapFPzAdS6HSJ4mHWgeO9waWu n oqbvyI7wKtb+Z42HJI0KFAFHY Q8GQnf9D7VaVihquKH+PC90YW IxWE06nIGmsJPrl1bghYv7ScC w IYOaYNH0eTntHQhnz5RtUKSeY 22lkIWua6V8WFIdwIbfiOFmFn VmwIN6cD2rYSthnvmqj9mahdx n Aiglf6uzgv63dX68Y05vNKkwY ZHoSBJ1DIUiRXTxiFvtew2dxD 9wIi8+LGmdv7zdp1pevUa1MiT w WETmpbItmUmfBQH9o1AaOe16H 9DejEizz0GbUof2bw03eBVos9 W4iPQ6JWhxIOWgyL4rWNzqZrE 6 YJQxWqMkdC37sLTzUNinQs6fw ArkmNppMO3dACEhyzvsVWHccY 8eKUTvgSVscAqaFU7oODQuuyv m v265FrDhTYF1KINdcUMdJ8Fpw V1lMbOwHFEkLTWdF2KsjJZyIJ leH392EZnqWrG1LJZgarUqV2C s YCIeeMfdCsA2x9V4Vm3Bn1Fwq pvzVRU5VShoEUWdRtS0CkHeHh F4Z3BaBvf3NFPkjGzlQW9yV2Q h YWOpbigconlrrCO8DYDhDYBmk J94mCQyWBgvCl9rn0N4n988PQ NrHGZayW13Be1jaHriAGAmyPG U jI8djbckw6irxviqBvXiNRRlG Ly1QHw1HMNbhCloXrVcHQC9Sr C7IZI4uSOhzW3rjMfhfbkcgA6 w Oyc+Q19dcS3lYPN3RID3mpddF SEodwBkXC93UQ86H0LgGhtgjY FibGU+HWKzrxLzlGmkYJ1nXsV j y5bbz8CpHHauR2BkBTJnLRgxQ lo9VSVkUBK8kJP0fW7cZHCpGS nqz3H6hRW9W2RcbjMbur2jm0y s EBOhLZdhU80rtVApf7T7SBXjm YR4QXBarJtqToFajR06Qdc+PG SnhWbvb1BiHfxkt2rjs1dekDt 9 FcAsWYKrnkFqtIxrGLG4r2LkU r13M22fIWlfMJJaRRDcWEXjGI KddWigla2ghJ2hJj8+PGNvbCB 3 bDW7kS1bSBNxFpB1SHosP819V iOqrYHrUjhdm0lsg0uyoMx8Kj IpPKXvazWgtWxpJBA9x9XiHx5 8 B35yNWvxTLNrTHLjQHMrDHMhq Pzulo7amS1gQf6+II6pf9pmfk 56iM14hRC+KJRmCHU6eDerNBy w PPZulO3dDQhiFpS0HPOmZtOzs Q14nFPfCYzwYk0pnMqouKlnKZ 0kIHRffajqm526KwWqq4kgYKG w tFDyNCdwXQR9L09gm1F4AVQrB UEhYZB2iNY9bU2fxIjubxiwtS StyFcixuKhsPuoXIknRJobV77 6 IHRvcDsnPlBhdGllbnQgTmFtZ Rq5O6FgFzo9NRFnzEydAI7ekD AuYKxwUa6qdXymqDnrIC4lOGX p btvkt314OfZnq7xtVCLzhVIyX ZnaAWI0R67po9J4CQUtLBOdEA J3jMM0mA8lcMxqypknjHKlnAe g gfHupFtiFYxxXLewS735OLJis ZiiHrYqxlUdTTJawJP5ZT16VN 09aPDkr5Z0bOI8H4AkPPNgegf t dnbjcDT7EFLpNLBbgD79To6th GboHy5sXDFtQXC2AINnoBMnZ9 ExeC2uIwLxYMVbLFSgD0JnfEW t CTohF329HAvrKqJ8TTPvirNbM 9HtXFIixTrtElI3a9C4Zl4MS7 A7WY60WP80iAWpt3A5eEC6Q4P h XYKcwrpnetefvPN7UXPsHWBje C79Np4bfXkhGb1nOBThLZO3DS DowGZuJ1BztB7yPiOfWYWwFUC w K5WsuQJjGWfgR503DEyoKgQ2Y BWrvsIuM0KaEYJjdQlpJpS2i3 I7Db9QEJr3XB39MC47sXKhj1X 5 sPE6B3MkOCPvaxdllvzizAK6Y CAiIFPrlP08Ew2ncYvjIf2bFG LbKOR1NJWoeECcQ1NshF4kQlJ j TIZlSCHaA4WbhNYkEFveY732V LljUrN3DIMcccLaZ9YbEWLliQ rtYgY2n3L4Uq5MOSUaHA22MQB 5 mQN1XI02GX92B0ZjMabdtSUxi +PHRhYmxlIHdpZHRoPScxMD JvWiExsOloZV9kDm8cGWQmVNV v zOvxaTOhGqTil5wqBSXiVUwkI N5iwOgeK7SjtFZ2GYIst0q5Fx 86H21uC3YqmIT+TFAfsTN0vKY 0 sF5cLsOlQsP0AKbaF607GqDhx XNhNetje9jjk2qxwKn4OsL2PP JpynMqxVhuCLS0c2UpYl66R85 s IHdpZHRoPSIxNSUiIHZhbGlnb v5tjV5sTg4+HZWgsJK5aAP2bX 1zViIeOhU1SIdlP301OfWjkZS v Slyjn3piw7rgtRc8XlFiTFJet jGkkGbxZNK3u0WyIc51E6LezW guf9RjUjj7uj97xLTfx4I3wDD 9 R1ErXIVeidchkJMsuRzzQP3qX DIrygejMVEzgV4vOGAdO7r1Oj PiLiX9IOgkC7QopvV7YLDchEG g FUpwXZN4E13tx0E8JYWcZMAjM UU2fMW4tB0emOidxcnbkMBhqN sndbJyaPcrLJbxNDoyV723SJM v hDopDARslS3jCJTisYQkiErfH O9lBMSjscmxYlWXHm7ARujiQB 3SNYhHRGk2Q9ZfMdn5TUKqiLx s AW7wvQAaTGxzEi7qzYsulHocV O8qURLzbdcsHKJhlD3vPIBezV KacUxyZW4rBNZonlmsi426AmB x KLQ0RMDstADoE5SayU9lHoMfS WEgOWKvX7KvuGGxXQrnJ061YC qrPwA4YZRxuyRdZ6WhHBChuZi u McL6m1L3Or0tNz5vNA4sFIL1S R31LZ80yEHcd9P9qJD4C0ExOR HqqcwvcppiiNT8NVFbQXPzvH2 7 cHPrEQxkNp9ql5S9s978BMGrL KAmsD05Uk5ckXfyRNPzfHXJuI 1kjkktb5xzlqwkPgLcGWZrUIq 0 RBf0UXRyoQwoMoWlRNK3HxV4C VJ5rPNnzP9xwTbzpunnmO6rHg c+EuHlHTLgxkQ4V3XiPmi5BMW z jCshMZ4upDTlGVfsQj0zzQibg TjsVS3iXPMigkdmDQAzfY1qAR GtpVWlaKqwEH0jYKPpidlow13 0 VbVmBJO2YLFqiKKnQ6PwzU5eJ wFrNFIcKDDeJ9DzkEDfGTmaC1 55MDrgEkJ9AMTamyRuF1HpYDU s aLptNhR4k9F7Qd8NCTmmIV13G P46oFBye9P4hHK0I8FgZPEreh ayyrenkDP6VORaNNGetI50jOS k PCsbJa5wx1X6f839DMWtSSBew Q59Nf1hhThyVSLozZZRzE0gki gfn0rdorugEkCdOUOqJVq7AKz 0 AREqgNuaPkTbELT4ChI1EES3d NQtsA3yiLypezlizC9jGjm+T3 J3mGZ9lSDttWyegSY+YE73bx0 8 U9BdUetfCee1RHIsLVL6hNW1z N0mCRGnYQuzk7H8xCV4J3Jxse Qtdd2sh1ehNGSpAFlyY31veJZ w n6P4BVSgvKM5AQIxqVfjBrJtc G93Oyc+BPGxnNzbr6PgZqfju9 qio6gjyHm3JaFmOQZfjdDucQp u NBY1r7LhNq73L84dJRsoVMMkF MCbIWZyDQIxhEgqpy5hrZ3bJx 8+AFJbyGJ4vJB7qO4gMlCkHdA 2 XFaoB588CnBkhYTpUrhbn3gtm 1vgzUi8KbSfIKZqbpApiLdsMO D3g0UeYr26Z7GotPice7LyVkx 0 rl17lFPuw2L1iUH8Q8XoUXKax agqxFIhtFbcFD2kQPSibelzNQ OhpY0jKNAgF6n7TuGlOjD3NEa u Z8FyiuI4NDHbcNXbBZKhkBHAj O4adpvjb6fyoqzrUkIpBKXqMA m8GQl4XGBbqEfzDzFcACW1PeU 2 MEG7jSUyaT1xfCqzytmsnK9uJ yc+FFh8n1kdkLJcYI1vkHI6WO 87GH10fQBob1U9fPY5X9YyJHW p irbetnxjtLQ2GYJkEEHtlT52D n4qjArlQk8hZAKtRYE1CZEjqO ByR2FoxF2oGwLlJPOoQSNwS6A l cVJhECekE570YRrdHuC9QTOgd rXxI8HhBTYpvDjbKnE5e7K2Xo 5KDM87OU13NM09sQHnv9F1bHJ 9 X6JeLOTyfrzexqkzkWX7YEIlY VMotN46Nj9btTifFc7bDWBtKS P5HJZvtVApR6RblG9mEpGkKGC w IBXgM5HbmLGvMRpfJ105BIpmG aW4QTScavNjE0FsFKXhsXexIr R1c7Y4Cx9QWz43XI76LF11qHN g n7F3tPW5X5AqFOGvkvnmxpwue HV7QHHnPROwvI89Ta0jhLxmHx 6pLXJtWPX0QDMweQNdR9EflH5 y IcLnQZHxCPHnY8HazUKhARssQ 582KJeuFqX7HILvgyWwP2MiBB NsqMgmWwH9f0I0Xi1LOJulqvp 8 J4HfGzdmlLK+DB92ZRHkWB96n WJjjYZfg5zepCy4WfKhOPHdUL E4oTxlMIllf3YoPWCnX98acDV w c2U6 (more content not included)... Normal [facility] Physician Orderon 01-15-2023 Physician Order [id number]#1.00CD:12 7 Normal [facility] Coding Summary.on 01-14-2023 Coding Summary. CD:[id number]:[id number] Gh0bW w+PGhlYWQ+QV8MSATdH03dpJD buB3FD6iBHW9HJBIHKZRXQG9G DY7aiMH9PEohI9FlbyKf WaevrAOoMY55ZGj0XSD8pPjcR KbzpV5hiXAjB9n0YiQiDV05sN 78UUnjSWNsLbB5TsApkalaqNG y D6snXtTvwRWrSnz+PHRhYmxlI HdpZHRoPScxMDAlJyBzdHlsZT 0vWy3lWMUpJESdeMeluVGnHuV j t7caGWYkEHdwJC3mgDvxL4Vzo CX2IPWyc8e0Cl09aPO+PHRkIH L0kXswQNeed588JbCpq7xsQKB 3 oXAkUDtlJBH5G89cf2V8HTUiG JLuTFQ8wTC0vW6aaJplggecW9 PgvJQyFxM6OVM1rUTqbJ2qmNd n iewsoD9wZsv+Z88DAT7BHANQV P6OLkl3Y5CcCkrrpEH+PC90YW UpLW95rRNasOYrg4giuId4KvX w ANDsTTY8vFhcLCteh1IsIARaF 53jbQHed7E5DVUqqWqymZYmSq TmoCD8gE6gWXkrfcpoq0ddiyx n Dqodj4rriy47kK64T03cTCrnG TDdRRB1XEWgECXwlXyjis4rxJ 9wIi8+DGtbt5pnn1tlvSf7LsY w AWWgoaRllFrxOPC5x2QrZs91Z 0GtcTfsa2QkTeg8gr51lAKum3 I0eCW7ZFwdHCAqxA2iCJmwTzR 6 VKVwRsJjiO87vMWcTTboDl1wx RjzhEinSJ5wEMLqxbodNOJryU 4bVHMunMQfdIhzNN0qIZUjyfl m j149MbBtYDH4LIBksNTnQ4Yez L6xPhEqFZZcYFWxB1BzxADeBF riT859RQgkKcV6WEGpmpQiY6O s BJIfoCdyXyO3c7H6Tm1Po2Hdf qvuWOT0LWfjWHKtMhA1LvOvVd I8I9YcRhq9RYYirJyfOI6wU2F h EHLvchnexhpqzQZ3CYGlNDPbr I65cTUoKJwvXu1wh6H8x925ME UwIXPpzE95Pf8yuFtcIJLeuQU U oS7qezwvc0xpzletYqRqTZUmV Qq4ZAl6OOZhhUreObQzWXS3Pc Q9AQC3sGWbsZ0tdQpfmvdvlE1 w Oyc+X59gbS8bCMJ0MDY4okwoJ KYojfDqNL84RW79I4CvFbspbC FibGU+IHQbgoXovPoaSX4dVxU j s9lji2QdYVgmT8KdPSMeNNugE dc2ZIVhILR0zRK7eA9aTLWeOG zcx6A3jDK2Y6XzbcIswb5kn6h s TMBpASccV89ozECol1W1FKFxo IJ2TFWwuIacNlEjmI53Plq+PG HprEhgb7KlJazrp9jja9espWs 9 JaMdVCHeclYtuJnuMAO1y7PaR f97L18cPZmdOQFvGCKuZANaBG QcnDkoqg0fiG2jXs0+PGNvbCB 3 xHB0pA0gNTZdTbL6LJkhD155F nIhhETbWbkxy3tme2thaJe4Hk JuELNovoGubKwcJHW6u6OyRn6 8 C64aTLirTWOqQMGrPOVtHQMtl Pdexc3prR0bEt2+FI7cx3vgjp 38xI47pXG+YAGcENG0fRkpGTu w PXXyqG5qHFsjEsO2UVWcCnOrf W48iOEmXTsxAj6seBretDsnCZ 7uVVWbylsyo101HyXab6crYEM w qOOvZSctQGE3I12ki6K2ZWQgA ESsZBP5oNB8hU7yuIpwjhynxL PcnYweytOorIvyCJziNUsrQ24 6 IHRvcDsnPlBhdGllbnQgTmFtZ Mn8N3EqWiv3CRHmcPoxTD2ioB TmOJxyLa6nzNyfbVqsKR8fBVO p wputd658VvZns3klYBYhyMLfL AxkWGC3A01cm9L2WOTfRAAwQD T0rQZ3gB3xmZadnkskgGEbwLk g upDdpXcjKXdkQQddG793YEYug DcpCoXaazAaEMBfkLV2OS57PE 33fXAth4N8gLX9C2UzYRAxbnj t mqvyxOZ1YXDfYXTjxT14Cc1no CadEw4lPEQfVXH6ANDqrFAvN0 ZimS7cOxKfQRMzANGuK6UugCY t UNfxM696IMteLeY0OTFogrHkK 7XaUZNtmBsvXgH9w1H8Kh9HC1 U4BO37FQ73oKUzf2F9gPK3E0O h WTMrdqcgskznnFT5XXRhYNPxq F07Fc5jjQpkAq2hRWQrDOW2RG AtsUNvT5WqbC4yIoKmXFWaBLH w M7QzhKTiKDajW524ISyxTgY3I IBhicLfM0NkBCEsrCfnZfQ3r4 W8Ir9GCBt3YB51JP19vTAkz3P 5 wHE9I3OfLJXofxjnrviqdOD5D BZuGJKvbP69If3rqPfnZy0rVH MkMDV5NEZqtOJoH3KmaQ9lEyG j FJVhLAHzL9HwsWBxCDouY084Z EmlIaJ8FLOtnzKvA9ZnVYLimQ nqQwT9m3I7Ui6KYYQjNS22XSJ 5 dXQ0EO14XA60H7TyUowlpRYrj +PHRhYmxlIHdpZHRoPScxMD JhRzNdhVmkMO5lCm6rEZNhNYT v jDdygOTmOwCoj1vwOLVrMNawH Q6siXefP9LdzRV4FOIja8f5Mx 75Q15iO5HleEW+OZFasTO8eRR 0 xT3aSkLuDaY4WXemS357VaItb AEnYjjgw4qll7fpqCx4CyE0XV ZmfyYgyZsiWQC7r6NnSh30M86 s IHdpZHRoPSIxNSUiIHZhbGlnb w9jhX5pSu9+AUSihNG2tIG9yU 6pGoDnOkM8SFgjG619RvXyiEQ v Tzqps5tpm4tomHw8ObHzWRZmd xUdcXkcFIG8z3LvUh16C9OfiC xeq1JdUes1mi35aOVfb6F8zBZ 9 K0EpHDHdgkmoiBMpwZyhCQ8gF PKteneyVYJplQ5pYTFqF2r0Yr ZbXrS4IZimS6YnqaW8TRNvxDU g XBexSUO2K03ef2T4BJMnIJHdI DM5vLJ8jE0wiJwpieedjQLkfT sjlkTsfNwaZQuePWyeC474DVI v bXuaMSTgbS8cPAPvnCLqtNzaI F6iRGAtssybPlXKXd1FNmkyCM 4YGOwEKSw7O2HdMkc6YQAliBi s XJ2fxHKcOHokZe4fdGjjqRmbR N7sKNZjcijkAUDgiZ3vBHDjdJ VoeEvjBL0sMXXnhasto767VbW x XPG8GAQhyBLmM8ZpoL2lDzQaL QSuKFGuW2IqrFWyXFrgJ004OC tdDtS5KEVyimNcG2GeFJXrdCq u ClJ7i9H6Ts8mKs2mVY4vWRG9J Q95FL41vACmu8B0eTB8G0QkIB SoudnhykuirNR2QSLvYYNfrV4 7 qOWeIAmfHk6az8K6n079QFIfT FIplO63Bj8xnEtpDNDyfNTFoG 4xqiyaq0myypuhWjWcKYSwIJp 0 AZq8JOMftIusWaYtAGB7QsF0N LT9cMGlhB5xsDxblnuixY3hEu c+JnCcGMCmwtU9J7MoAvy3CCR z aVnoPD9wbEQbQEgkFo9xgMmer BaiJI2sYBSajfquGBZnzJ0rUD KfrRHbaDszQM9qERSpdmaky32 0 KjIkRXG1RBYrcGThC7CpsI8qN yQcWOGaWBSbI4RqpXNvIFwyU0 83MFepGhM1GQDwhbFuD0BxNLD s rHmwWyT5n5K7Ny7EVJsrZQ39W P25gDYnq6M6lIZ3W8SbWHRhjj dscjuizSD2WZTgECIxtI81mZN k MHdsYa8el9Z6k990UVIfUCXdx F37Gf4ffXazCTYvkWSKwF0dbw wib1foskknWoOwFKFrDBt1XRj 0 DTKifCwsXoDlLQL7PhY9UPS6u YYokH8xzYpahzwfpZ8eTbx+T3 F4uSY1rVRpuUhnyXA+EU47zh5 8 W1RgYprgFna0MDIlSFL3gDA2k H1wNAFvRLasb8R4nDE9K2Wskj Odec5rd8uvUCGsRNrtD85swSL w c7A8SHVleOL9ICGyqXzrPxDyd G93Oyc+RFQsuQure3JeYoslm6 tfi9wzcDh9OmLwLMPzfjIoxVj u PAM3b1BiWe81L08qMSvqKJHcA VPkETDfHXBmbEcjqm4svD6bTn 8+EHKtsJS4qJB9zP3iEiYdTgD 2 RYjlI679UkCifSWuRzqhw6emi 1bdeUa1BdAcXNDkchAsjMkzHQ S6o0SfRw11J8WphTjgb7MxBhi 0 yb28lMNau2E9gAI9U8GxXVJlp yccfXYjyCxtEC8bHIVgtjkmQK UiqT5nNWOeK7j6MwXtFgN3RXk u Q6EowjG8RXDiePSuYOXizIXWe K3chagjp5bajljjZzXeIXOtNE n9IFs5KIBwpBheAfUtGDC0JkY 2 QOJ5vTFhmV1gtFgchtryuE0qS yc+PDe8b8lmcOMuZQ5quFB4AD 39ZK94qYJsq7B6gSO7H8BqCRW p bpbdgetqoLI3JRWpXMChcS28G i6pzMauRi4aGYBvPEW0LJGhcU HiP3SaxF5xWvGgMLGbWMTmO1U l pGIfMTwaS639IIksDnM9XEDfh mZnM7UuZHDgqXmkBxW2d0L8Bb 9XOG33UI22JA57mARrl4L9iKZ 9 B3LcZXVnenrkzgzehWC5XDPgO LIdeP20Np2rxIjlDj0wBNDhWD C5IJQriXPdH7SeoP8lPxFxWRQ w SQQuD2RwnXPlGQbqI797FWacQ yB5MTKxeoOpZ2SrEUFntPhlMs K4r5J9Zx0RCe89WP99GO48rNT g b9F4rTT6G1SnZFKnhuiqxijur QD8GCTqGSRovL99Uq6wzClbQm 0yXLQkMVX7WXKbqCAzB7TiyX9 y YyApBXIfBKRmA1YezZFjJYzbV 363WXgsByO6ENGmfyUvC9CdLO GdlIisNrK5e4M4Dd1JYMexrwh 8 N7SxJdyufOR+IX12JVEtKB16d GBfrHJwg7qbwCk4BdWzOQAsJE O1aXtgHVast6VhYEBrU39yqST w c2U6 (more content not included)... [facility] Consent for Treatmenton 01-01 Consent for Treatment [id number]#1.00CD:[address] [facility] Multi-Wound Charton 01-14-20 Multi-Wound Chart [id number]#1.00CD:[address] [facility] Nursing Assessment - Woundon 01-14-2023 Nursing Assessment - Wound [id number]#1.00CD:[address] [facility] Nursing Note - Woundon 01-14 Nursing Note - Wound [id number]#1.00CD:[address] [facility] Physician Orderon 01-14-2023 Physician Order [id number]#1.00CD:[address] [facility] Procedure - Woundon 01-14-20 Procedure - Wound [id number]#1.00CD:[address] [facility] Progress Note - Woundon 01-01 Progress Note - Wound [id number]#1.00CD:[address] [facility] Nursing Assessment - Woundon 01-09-2023 Nursing Assessment - Wound [id number]#1.00CD:[address] [facility] Nursing Note - Woundon 01-09 Nursing Note - Wound [id number]#1.00CD:[address] [facility] Consent for Procedure/Surger yon 01-08-2023 Consent for Procedure/Surgery [id number]#1.00CD:127 [facility] Consent for Treatmenton Consent for Treatment [id number]#1.00CD:[address] [facility] Multi-Wound Charton 01-07-20 Multi-Wound Chart [id number]#1.00CD:[address] [facility] Physician Orderon 01-07-2023 Physician Order [id number]#1.00CD:[address] [facility] Physician Order [id number]#1.00CD:[address] [facility] Procedure - Woundon 01-07-20 Procedure - Wound [id number]#1.00CD:[address] [facility] Procedure - Wound [id number]#1.00CD:[address] [facility] Progress Note - Woundon Progress Note - Wound [id number]#2.00CD:[address] [facility] Coding Summary.on 01-01-2023 Coding Summary. CD:[id number]:[id number] Gh0bW w+PGhlYWQ+OX0PWPItH76lbVA obS4AD0vGKD2DJOWEGRTUFK0P UG6ulBH6FNtfN4PhvoWi WxjmaMWrER18KSt7SEX3iGfyS NmvxJ8fiZPpT1b3ZvAmQH87eL 54ZNjhDWYwEgL9VcXhfeglbRR y U4muBdUzyYMfIhd+PHRhYmxlI HdpZHRoPScxMDAlJyBzdHlsZT 1cNj2bXSNbJDIwdWuavANgPoC j a1brXSOgJNlxSH8ooErcX1Jbk GT1IBCwk8z5Ce51wID+PHRkIH P7xNksIBngy853HxHab1taIJJ 3 kEBwNUegQSW6J97kq5J8LXSqJ EIyMIV2pBR9bK4amFlllqcnX1 CwbUAjTuS8QKE1qLRfrZ2yvPw n pkrzxU1hKhc+O75SNB6OSXIOY D7WZzd6U4IaOvyefCM+PC90YW KvDH84tSOslBFbo2mfjCp2HnY w LDOiLDD5oFptQRitr7EuIOXzI 12yrEUfj0Y7CSVbeQseyRBnNk ArjSB7qV5qYFjrxpede5ovwpn n Gaclt8yeim80hW62J54iXOibT HCqRCZ4ZXDaJGBzeJywjt6rhH 9wIi8+WYbmk2odc0djzBo7ArJ w OFNlowOirNufKMY8d5RyTw09A 2YjePewt7QkUal3zq81yDOxx9 H2hXG3CMreANMfwG6kRBmaDiH 6 CFXiRhEgwB06dDSuJAqxMe9gc WmajElcNU9lLFNxxiuqRJMcrS 5uVSWqcVShyVxtOE4gCIMwjjb m h173MoPaQZK7ATPbnNFxW5Dbw C8yQoIwIXOlGMKuS4LgkVYgXO jaJ693ANduGiY3RWDxdkTlU2F s YVGunQngEdH2q4T6Dr6Xk8Fwi kxjGYX0CFfkTFHnCzMmKsIlMs K8B3HgGsw0TGGniOdoOR0lD0L h BBLkqcmmyouswYD4BBPkAUAtl V26aNIiOXdbEi3ro3P5j517JJ WcWXBemI41Kd4ucRetAZUngEP U jE0eghspt8pwtxhwWtDwZZXxR Hm3VYh8ZZEprPwqMkFaFPT5Iy M6XAV6oWKfmO6smKgimamryO3 w Oyc+N35mnF2lQEQ3CEH9rwxvW XDdpvQsOK28RL59A5PqPbkygO FibGU+BNFwquRoeHhcVD0iPfE j z6swg3YcXQwdA9BoVSWpUNemE ky9CASjFLJ2gHD7mK0eABKyCA iil4J3qZR4X7UkukGvvr4gy3k s GJYhNZmhD94ttTBrs1Z4FQNek YD3LKJoxVezIaTaeE99Jxq+PG ZxpQpul0ToDwbee6iqb2zjzHu 9 OgIsTAKorvEcmZjaAEH0i1HpJ d84W51dCMbpDNZvGRXrZSByHZ OvqEjuyk2xkL7nLa5+PGNvbCB 3 dVJ8hX2gEALbJdI4PJcxM622W pOyjCYvRpdou4usk2vjsOl6Yf ErLEJaqlTmcGyeCRT6j7NuBh5 8 S54rPLakSYMhFWAlXUJsUGLgu Nhuup7yvQ1gJv4+MS0di4tzhi 39nJ50qJX+VHMtZTC1vVbtKMu w HVOnuS4nUVghXqU4WPBdOnDrs J96qLToNOsqRr4ttSsbxXuuCL 7tCBHadgzcm280KnCmk9mcVZT w vDTaVWrvPJA2S64vs8C4IAJuP TNkEGA8kJG4sC8apJzvspxcoS DtgCbspnZxnLjwQLuoPHlsT23 6 IHRvcDsnPlBhdGllbnQgTmFtZ Ze1U7LeHse4OTGqiJojDN0scI SaRUugYs6ghJqqyKslRA4mWDX p eaydj894IoZei4deWORdnEOoT LpcLHB3R65um3S3KNHvTGZmNJ R6wYH5aE8cfUbzkpyybXNjoHt g xqYxcFuwBTjaLLrwR054NAOgl VguBgFlqwFhDJDjnLK7BL94OM 17vVKom9Y1vGY6M6KmOJJabox t gqsffFD5AWLeSTIeaT24Yn1td OadUm6cHTCgQVZ9VZJrxWVsI2 PlhP1bJjRhYVTvWDApI3JzqWD t CDzrL394EZqgQgF2OCAagfPlM 2NnRTBajWraEfT9h7P3Fk1HI1 U4RE77AZ89pOZws0V2nSY0T5K h CFHqxjjjhiixjXN5CWWnCPXkw Q30Ek3cyFnoVn7bXBJxQFP7AJ ChtUBsV2MkgE0lKbPmFFHeSTU w U1FlmTIbLDfpL411MVvwZxK3L YKfjhKjS4QiIVSzmStaJrS8i1 D6Vo8TXMm4IG55UH94bZXrh5N 5 tKQ7A5SkEDTkewbbzxzbySX6J RGuAKClwO82Mf7bkRtgWe0sVJ BfRJV9ZAZwfYVzG6CqwI0mYyW j TATeHUHoB8QpuUQsOBhoC100F UggNfB0BNImsgBrF3NyZNQpcW buOvH6l6E5Jg9UWPUyXL92WSK 5 mJH7AL62UH29F4SxBmibzHPlj +PHRhYmxlIHdpZHRoPScxMD WjPmQhrFlzWM3pGr6fGUEyUWR v dWdtvWIrFvBov3ucEHDbQQxnS W1ftZezI6JyvSE6UBFpn3q4Lc 84M50zF6FdlBD+EQWloRK0jUG 0 oC2sJjKtVvN1JUtlX596PuWjf XUdDmuwr1mdw6jboZk0XvW8QU DsswPquTlxNOR1y9KaRu42F80 s IHdpZHRoPSIxNSUiIHZhbGlnb h6mpS5dTh3+TCXdpKB5yGC6gA 8kYlYnGjA0YZtmE069EhOxrOC v Zpwap7woa5zgcFk7XoQjKQXvj tSnpVyyZOC2c5MxLb38J4LntO mop2BrEsu5wk54nSMfz6H6sSE 9 S8ZyHXHmqzhhjGYpbEtyFQ6zP FXabfboPWTyqZ8pDKPiR6l7Tc CzDdO5ONzmN8AnmiM7KNYkiCU g UIfoSJH2X06qn7R1OKTgJGLjS KP3eHP6qT4klOextcijhLJapR mjbfYehKqmLChtKVoyM350EZJ v oZqlFMXhqV8dQNBtuEOmcYzoG Q4yCJWocsplKjJPPj2GDuwdQL 7ZXMgKDAp5I4NqMxk1XHLhsMc s DD3lhTZsPIhfUm6xcSevnBehT I3xXOWyzrmgEZKinC1uXEAltB LfaZctFD1pUZVyubzov203LxL x OEO3ZGHxmODbR3NogF8nZhNvM AChRDIlN3JuzSMsVNhzM000SW zoFfT7HINvbjYmV2IlEFMccHg u UoH0g9U5Pn4hXz2rKS4uXMP0Z Z52YW81gBFda1Y4qHK6A8BlOX TgaoobptxruQD7VYEmPVIxmD4 7 gBKnKSjiRr8su7Z1m604DGFaM JMpwT16Do9rqNrmXMEypAWDnA 9skbaqj8mzxxwuZhDtJUNwUFr 0 YZj0IKLadXlbAmIfVAO4NfX5P BR2aBDvgA3wtBfagjlukN5mZb c+ZcIvALCwzwG0Q7KsArv0EBT z wOlsTD2skTGyYKzqNs6myLxen HobBN6yGNSkmumzWUSfcZ7uLE NqzUVxeStdPK4zVMPmqmtoe57 0 GrZrHNY0JHGgaDFtU8IlsR8yW xRqMBLpQSEzH6ZcbPJhNOsqL7 39IOzaIiL9PZHorbBfO0QcCZV s mFlyGmQ1w0U8Wc9ITXxfCQ58V A04iEObx1B2nXR1B3LeTLVljj qigragqSY1KFWlZHQipJ35zEN k JOarUi4wy1B6l065ZMVgCMYee U33Td0znRzrMAPgoNXCqQ8umr tcl6avwxxbGjDyEWRiPDi5BQy 0 MTAjyZdjLvGvYEH1WyO6VUH1k XVvwR1psSjupgmhaC5sYpq+T3 V8xGS4zIFmfSsyzAK+CO84nl1 8 F6HwHauiHrr6CRYzWQB9oEF1l Q4rSUJuSGgys5G9qNC8Y2Lidz Vkug7yr9djMGRkDLroQ42uxCP w j0W3NJLzcZA9RZUckChqMaCzb G93Oyc+MENfuPqhv7FlHruch5 mbw7uluBs0TbHkBGGmdlOytVy u EFY9u5HcJt03V08kJKfqNWFsD ZKcPNHoEAQggGyhka4irS0hRs 8+SNHdkPT4iWZ6yE7nBpYxJhM 2 EKqeD772JyDnuXSeXagpv0usg 5ptxSw9OlUlMEXxwrCglSmpBO D0f1SaKz34M7WiqZcua0LoEhk 0 nx56qGGft1F5mPH3O3IhBYGeo kfcsUBlxFpnTR3hXRTdfjntGQ EbwI2jMORbA4w1MvSfQkZ3RTv u J9KuecC0IFDrmWJwXUNfpCCYu E8ymhvsu6feiqdjGzPfJLJrFT j5CSz4UMNnnKftDqHfKYN2UmU 2 KRZ2wSQssE0drMrwwxgjdM6rQ yc+ARr8d7pfpEEaUJ5dnRT2DD 59SO29tCKjb9A9yVI9K3ZjDSH p ekmwqxirdBD9UPNvCFTdzZ91M a3gfAdnYu6wHOOqRVC6UQCgqZ LvM9SnrT1tImZyFGShVFEcZ0T l mZXyGXycF245FSifRbE8JCMaw eVjM7UlSZYrvYeaLpB2j5M5Sf 0TZN52NN32XK43yCUok3K2lOS 9 X0VfQLFqamrsknzwqDH3DJGeJ XGyaQ91Xn3iaGsnVl7qXXYzYA N6VGIpnMLcH5JqpE1bKwWjLWZ w CIJvE5IvdCNdGHppM571KOpcD xW5RJVuatFzE3JrNAWclOpxWu B3e0D8Wc7PNl50FQ72JK94kMX g h7T2jGA4W4DoWVGuoozezsphl JG2VSAxDURouQ96Ja6oeFgxRa 7tHOVsHLK9NARdyJLeY0FifP5 y ZoGnIPYeJPOsN4ZkrQNjVDauL 054LXejSfS1HMFvgiOzB4XwMU CczKsvZgM6x0B6Rm1GRWflais 8 O3TqUpbhmTL+BO93HSQnPN19y HEzgJQkl7choKf0EbNgRIBaEE P7qWoaSVxbc7KpRUEkF40sfHF w c2U6 (more content not included)... [facility] Consent for Treatmenton 12-03 Consent for Treatment [id number]#1.00CD:[address] [facility] Multi-Wound Charton 12-31-19 Multi-Wound Chart [id number]#1.00CD:[address] [facility] Nursing Note - Woundon 12-31 Nursing Note - Wound [id number]#1.00CD:[address] [facility] Coding Summary.on 12-30-2022 Coding Summary. CD:[id number]:[id number] Gh0bW w+PGhlYWQ+QZ1IAVKyH07fpEJ thK4SV5xOLS7QKCCWPBDQZA4N BR8foIC3CFipK2WgqmJw NwhnsCZzFF31PIr6JCQ5uClsD JdkpJ1wrZVuM4k6GzAhFI82pC 29XZvsIICcOcN1ZqYvhygpbKA y N1qtGjYugWBaTmp+PHRhYmxlI HdpZHRoPScxMDAlJyBzdHlsZT 7lOz0dYTFdMCFamZurtHMhCoB j g8hpMRYvUDulFL0ypBmdN6Aqv AZ3BGAxw4z2Yf05dET+PHRkIH O4iFfwOFlxw407GsNsw8imIOI 3 fQLaYBijENP2L74io9T4SOYsH GYqMUV1rGP0tI1ofZzarpggB6 RatNCkVlJ4BEK9tDDxtU5eiQo n hzjvxH8iQrp+W27ETO8RZQBTT J6VTgq0W1WuHadohAS+PC90YW QiSU43hHYjqUZvh7vzsQj4OjG w LTLpMIY4tGpwUXyhv3VwXHNwM 07qfQBzb5I1BBNvdCjwnRGlPs FquUF1gC9jLOnxjwvrh7egfzc n Wuoaq9qhbp69cU18H49uIQxjB LTeNZU7DJGpLULpiZnvrx9cnU 9wIi8+GNgmd5auu3tfmJo4ObH w TYMybyZtaDjuXYO2s9XeKe29G 4KayOtpn2FjCmz8ih38zYOdp5 K4dTT4QMiyYZQkxA1hBXrySeD 6 SHKgEhVviB55sHXrNNqhFg1nk OxeoOelHD0hNDQlbvshLULagT 9wSCQtcTSpxYluNY4iHVBnogi m z038YaPbACZ9IVNkuMBfD0Fzk U2iIcXcGKPyWRDnM9CdcIVdBO vmC821BYpcKjE4MDWbuwUsN2V s VGTvwUzeVqM6p5E5Zd8Ym6Fhm lsgAFO4HVbfYKKvBwVbZjZlNo B3N3LpPms0ARZvnQzlIZ6fO8A h MHZjoubssrztxHI4SYHjRYNud Y74kWQeCIzqNm0nu1E5e303MM QdSWUdqI39Qv5wpIgfIUEapAC U zA9mtmyqm0mehezwXeYaJZJzU Kq7EZr5AEZsrKayTqAqVTW8Ex G4QUM7lOSndO0siYinxxulnF4 w Oyc+K72dgA8hHVT4EIT4ixmqD TQkoyScWQ73HB56V9CgZqgccD FibGU+GSJnbkQrwUrnQR2jPjH j w9ahk1AaAEvuA6FzSFXkFAdfA hx5ZZSaRJZ7fHY2pD7lVDRdCV cwr9U9tBN3K0XprvFrcf2zi8q s PABeVEyfN01rrIJql5E8DHXuf WE0YWScsPppYhAwdP90Bii+PG CbkAfyl7DjFhqdh0dzz6ebjLi 9 DrJcOSBlbnDucGbsCQB9u4QkS u02M65yLVdcTHBqBPNlUIRjJX WxnCkmcp5baN4iSk7+PGNvbCB 3 uRB0hO5oQKJsXaN3KVxiE000G dBbvVSwWpccf2hvw8hyhUt7Qm CmZKHzcbGmvHvvUIK0o8KdBj9 8 J40nWIdoZZSePUXzWYAdHCNxk Gvmjm4chP1cEw4+EA3nq6xnnd 40rF83hDS+GTZyAOT8aJsdGLz w KZKgiD4gTIowJnS6ZDHcShUyr I38qDZzIXxrHg6luYxxyXgvRA 2xOYZpuqagb474EgNiu3rbBTR w mXOfLHldIEC2C33md2M5XWKmI IHjBXM6zML6dW6pqLdvuxvmdO DudHgqalXfvTjtHPjjLXdjA82 6 IHRvcDsnPlBhdGllbnQgTmFtZ Rl9S3DrUty9IEYtqKngOK7rxY HkXFjwEv0wiCawlJseCE8jQJN p cbvms929WjNlt9ziOUWmbDHoN FrhKDX0M18ds0I8WWQaODHrSF X7kBF4xE1qfAsgovqrkSWeqIk g biTrbElcGHacLHzsP348HQEzh DfwMtHqqlKpTCHjvCM0XF50BS 70iPLtv4M3zDY2E6JwRIZgaxd t rnnxxQL8LRKdGZDpsH45Og5zc RypPc9cQYBpETP7NJHdnBVoS6 HrwQ2fIyYxISTcVMJyC3XveNE t GGffC788NWdwHhH1RELfivYjC 7KsNVVgsFitXvF0a1Y1Fu3VF6 A8IB89LJ97qWKyn1I4aWE7V6J h RZJxaxkapxrifQE8PRScQCQoc X96Ca1mlHjpXf1fFMIxBEV2ZL LlzBYuI2JdxT1dEyAkZFHpJVI w N6BgeSJmRPgpF337QWwyJmM0D DBvlrDpZ4VjYPIinBgtDyA5h2 Y2Ph3GINs9GN19TI12cIIxa6R 5 oSO4V4JcXODqgjgpbjevmSE6Z WSeZRXbdB74Hw9keRlkSw4fUJ PuNCM3OCDchNCaO0UdtH7pPvI j PRFrRXTrX2KvrSGtVZqeM369P QywIoO1XKNwxkJtZ5TaMYIxlQ wkOhC9j8J9Qo1ISUPoIW01WCB 5 cDJ2SC08GY89I7FtQbrueZNkl +PHRhYmxlIHdpZHRoPScxMD BhBtXpfVaqSG1uZc6dAIXkPLV v zQiedBYeLrWta0uhFBBjBFqeK I8xwIyfB9ImpNR7FFPvh2e1Li 57E28jI4RizZX+XBZsjIB7pJJ 0 bH7qLgNvBfS5AJpyD923DwTqy WAlIhduv1nae0jewDi2VcR3ML GuqpRhgDebODC1c4EnUp36N30 s IHdpZHRoPSIxNSUiIHZhbGlnb m6xbM3lUs2+JBGjdVY5jTY4gB 0aOsYlNgM6WLhjT265CmPwfDR v Eigcj8jhl1wimHt5ZgPgCFJbv gJufUimKMC5m3MpAf25A9JduK pdd4WyHmq1pa00aNDve5Z8uAZ 9 E3MoMNMcichewIKaeInvAX7qO DYyjkhtQBBcfF4cTWLsZ4h7Dj KqNjO2ODycU1UsxsR8QMKybEP g DRazYZJ4K01gw3A4KRIsRIUkR JM4iBG7lL1oyGpkojpucGMqyW uossHewAmcYMaqHCsjY212MBO v zWcvORKxeV0yUNNvzOOcfBcmV L3rAJQwkwqxQvVGOn5SXzcnHP 9LNIcRPRb9S9FkMex6FLYhvRv s GT6alFMvSNcmWx9sjQcqiJjgB T5hUAUfuwdsUSHhzT2sLSHlrO CkuQupAA2pLDGtyqcmw887PzR x HIP0EAAhzYVxH8LqqW8zGwMxT FGeSAYqZ1YznAMrPAsmN370BX amBdH6IHKpjmFkF6AkKDFxgEq u JkZ7a0X8Oz0sHp1oYZ0fYBQ7M R37VA45kFKri9E1qEG4O0QjEX GsnygoknckhZY7HKHoXGQkfR2 7 jEVnSDogUa9ly1T7v903WPOeH WYebW52Px1vdJgzMRYscKBFpQ 5yjthqe9uwikvaDkAcMUNfAZz 0 WRs1GLUhuQldSuRgVIQ6RxO0L TX7uTJvjD8mzJgpvtqfqC8eQr c+ZhDyJVCqfvF7W0DoRed1PZE z rPlkYC5cwNWcZImiGo5rfCpdn SmcEY9fHNBinkdqAYBxiK0oQM AacZCatCccPW9jHEXgywjzu02 0 IxClLBC0ECBjnGGeL2McuD4aH vApRQOpFOQtO9VctUYiLWajS1 07LJzdMeD5ZKWpvtAjQ5PjGDT s bXfpCnF6h6A5Rh8TQDouRD69G R71pRGxm1S4gGG1C2OjIBGuwt lagwkkiIL1QBTbINUlzJ71aQW k MWerCl0pe7T3v903KYEuFLKzk E90El4boBpgSCJmfFQSjP5xch bqc5ydhinpMcFmQAYyECh1VQl 0 PACucKxcMwPiVZH0NbR1EBM6r AVidC6vmTygnrqpqG2zMct+T3 U8wRC8yALqkXigtYC+PC28go6 8 H5ZxWuezGrc6USSvEJI4gPN9i X2sFQRqYOzzk8T4mKR2Z9Nmfa Rqts7dn6mcNITqGEsqV83lhKZ w u7M0MQVrxMD6MHUlnDhcUwDfz G93Oyc+KSCstBupe6AuBfzee1 fqk1dylGv8UgWuRMWssmJfgEg u MXG1p4ZpBs01P05zBNlqRPHsV QGvCYIiWSVupZkdoa6azR3gXk 8+RAYrmSX9oEC5oD0oNrCmMfC 2 LWvkF990VaSbvZToWnvpz0hgx 1pjaXe1VbGpJEBxjzWltWvkQW V1b7YaRf54J0YytXwhp9OyKjx 0 ku66eNBsg1U8vBP8F5ImRYSmd qitnQYhlMliGK2wLZUqooagBR ObeO2uOUGwZ0b7RpVoRgD8KTy u Q5YnttP7GQVwnPDcTDTdkLXYn W5hlqqrv9lebhixQyHqRFSoVG t9JXq5EFSzjXguXoHtBGC6VxP 2 TSC9vXCckC6frVobjuhieC6gI yc+QXe4r7lvrVToZH9odAA2KF 24XC41rRNos3W3bWQ8P7SmDDZ p sdectoeylHM8RTLoLFSciG09B c9maBfiKr5fPSVlXIG8RWNhrJ VcW7ZulR2iBnYoFBVdRPDrW2D l eSLpKZjhC609CRlfPfD1FYHrf eIbS1VbIFIvkWozMzZ6o6Y8Tu 5YOQ54GP52MJ37oYXda2G7bLP 9 N4SpDXWyyxsdrgxmxPF2IONvR TAogU66Fz6xfNvvGn7wWCHnBN X1FQXksTKaR6ItiZ2aTvIgKSR w TBYzU8QavMSrWBimG081BRstP gW9QDDbgrPdR1YtSCQuiPycEx A1i8H1Bl6YWk91CQ18OO34nBT g h3F4qAM2S2KdJVImlogbswmnj TW9JGOnFASesE39Kw3glNbjVd 0lYMTkVJI6IMSrqGIqD7YmgS6 y HxRiSFUyFQNyM8XajNYuAGqkG 789ORtlHpV0BPRoixBgH1TqWD CkzHvvXxA7p7J3Xw2KGFnnuve 8 B0TqAevttNB+MI84SLSnUM18j CRpiWEoc3hlyEx2BfJgZRZjNV K7vBsvXAcdt5LaLKNsY59blDJ w c2U6 (more content not included)... [facility] Coding Summary. CD:[id number]:[id number] Gh0bW w+PGhlYWQ+PL3XQVXgM78aqSK tnE5QA7uWLN6EANBYBFELYK1A PQ5phQZ8VHomB5MjxqLy ZostoABvNE21DBj2YDO1wLctL EitmT4lvXAnW5l6YxIxLQ22mY 47LPshRMCbAxK9PeJusrpudSR y C1seVwEviZEvEhm+PHRhYmxlI HdpZHRoPScxMDAlJyBzdHlsZT 1cGo5vSBSkJBVcrNccjAMdPuE j x5rcNGFdVRdfLV2skDfpC7Hzz TR6EMIqb4a2Mi43bAD+PHRkIH U5tQqiYHhfb125VyUtl3siXGN 3 iEMvNTrlFQK2O14ty6L6ENJmK YGoURN4pUE0dE1lzUhgxxnvS3 DyiHSvHwY3IKJ1iQHanA4ysKb n ssjvcD7bDuq+W70OOL3QTDLUL U6QQca1C6JrDtueiQF+PC90YW FuVX63kYSwjBIjo2tmwLy0BaO w RGAwLWH7vMfmSDfio2PpJAJyA 75qqXHif7I3KJDefJvzqECtHg YqeSO2rR2mOEvluwwwj6fsxpk n Fhizm2npux50rE64M34sQDtcH EPxFSR2GCKsYOYycNtwpw0bvF 9wIi8+AKmjx2tbd9cyaIy6KbO w MZFucjHskOzzJCZ2v1JpDx69Y 8DmyRxyh1GfThc0ed68gPSfk4 N7iBO2ODbfKHJxcM0uYKgyXuV 6 JFYlNkRucC60kVYwLYimGg0ls OiasThoPN4tAGDsjagnNOYdjY 2oYNWqwEDojQfwKT6mUUSotxb m t006XrPrSMU4KDGggNIuI1Jek F5rXeBtFSAlMZHyI9LhzXDiVH faR658ODmdQeW5YCEbulTvB8F s SDRigKudVxL3v6I4Ct0Bf8Gyc osaSTY5LQhfHBAjHcPpWkVeDw V6B5FzHor8PTOegMlgJY1xN4D h PSMtrrzpzzrkaAM7AVPyXOTwy Q68rSOoFNexYo6ef9Y9g710IZ VgYWVazN27Bj2tmBnrCKSzxAP U hZ8pnhteh5yuplymXrVeNNBaX Pb9XVw5WQSgvDkdBwSeJIY0Wy L4MTI3vPMjlS2gmValosundZ4 w Oyc+S89ddN7eLKT4YAP8aabkF LBnnoRjZJ83TY85D3GlWgiwyF FibGU+HEGrehYbuEmeWZ4mLqK j h6kbz8BaLUdtK1PnGXUpOWhnZ vv3WQQfEWU9nNA9iF7uPBZzNR ksd2G5sAZ6I8BawdJxxq7xv5e s ANFlUIvnM44gdFQxc2P5YJNls GT9MPAgnSjnVqUpbP62Cze+PG CkrDcqh7YyHgaxm4nfm3ynvZs 9 KwXwWHExgaHnsCnqEHY7u3YjE d96D88pMAemSEZeIUUgLIYwYK KvjNfdui3syK7gMr1+PGNvbCB 3 fIN8yL6gIJOtFpG1RIfjL070X aKqtSKkAqfgi2wra4mvjJo3Bd UyJLHuarYxdHbyJIC9g6DdRt2 8 C33rKUevDFToEKSoDPDxMCApb Oyipx6htW5tOq5+RP2od0jhqv 44wJ61dLZ+WCGhJLP8nYmxVVe w MFMtoK8dQGqmVaD9ALYiLpGpg V92rBXiTJvoJu8kiMzngFmkOA 9xJXJtjwcan473KrHlt4yoBGP w jYYcLPziCEI3H27ix9T2MHQoJ GArRIB6rVY1vP8tlUiopguiaI RxjRqgkbTooJsqJXpeBQfuI84 6 IHRvcDsnPlBhdGllbnQgTmFtZ Ga5E6UfIzx1AFEwdDfwBP3inW SxCFchLl7tyHccgLoiPU7rDET p aufql093TaIwg3saSFNoqRTwW DqtEQE1S03sa7H0AGEfXGKqSM H9bZA1lY3nyUlcccobyZOnqAx g ylAmeBzsSWbsNHspB162EUXiz AeiGuScsbFmDSOjaVN4UN22CW 27dXLme0B0qHG8Y6AmCTAncpe t oslfxML5FXCaOHXbzE83Zo1qa KfoPj5yZQTnFBQ0ZMIfmVFcX3 PcjI2dNrXvVDBpHULtJ9VypCI t RAbqV622TLkcOxA6LKRzltNbG 9JnLJNdcFdiKfW3r7A8Xh1JD6 Q5RV65RA03tUDcr1V5iRO7I0X h IGDufomwvggrrJP6KSDrRJXml B52Jj4idBmfAv1qALXoBWQ4VR AhaGUrC2MpnW3nVgPpJIWnTWX w K0WulNBeIVgiK573YAouElY7L PIfedTvC1EwLYNntBzwRcO9n9 C5Dt7URAj9GM87WN66kPYvt3F 5 bYT0M6BfMWNyyzoueppfsLJ6Y AHdUNYdnU61Tf8pfSwgPb7oXN DjDLP9OIBopITnI2BprB2pJeI j DTOjEAJjW7WxvMOjVMytS416O ZtwJyM2OJSedoTfS1MoQYCbuW glVnJ4i3N3Ij6WDHYxNN61PUY 5 rZA4PZ55EJ26S4HeNsxknTNer +PHRhYmxlIHdpZHRoPScxMD IzMnMjgSenFN1rZv3wDAKrFHD v kImnjMCrBsAwr5lcOJKqJDonW Z2kbWieU3AyyAF4EOGcj1m4Wu 64Z18zR1CugST+NNSqpLQ0uCN 0 eS5jNnTzDgE6PNmoS057OmMbd NDzGhzsa3wen8lqzXy5YaZ2AZ MlrwHcoPdvUZM2p2GgIl47A56 s IHdpZHRoPSIxNSUiIHZhbGlnb j8ukP7oMb0+EXQhxGB4dLD9dC 2jIqUdMbU8WDhsF913AiWfmRG v Vgcqq6ezh4puaRr1GvKhWWGbe wXqtLjwRAS0i9ToXk75M7TumE aax0CxBia5zz48dIErn6I6kPR 9 B7UmLJQomqlwzXTkyVilPN6iT YXnwitdSLEzlK9pVDDiC1t3Xb PdFmJ7LWhyX8DxaaE7AYVieLK g FTqyCDO7G85ri7U1DIUkKXCqB PS8kFI6fL7cdTuoplivgHSxuR btwlCwzQvkTCofULmcG458WLY v uNmqVMEjhD2oKEXpiVErhGfjV B7hRQVlnjazXjJCCt3BZftuSP 7WWXfYZJz4V6DeFfa2TZTehMl s WX5qcNNgHUdwGu4woFwdlSaaX U6zPLHfpwqxSNLnfI3bXUApdJ WboUzgQT6mSVKmnrjmo528CnZ x VYX9JLFngNUmU6FoiG0cXjWzU CSdBGXdC0ObfFJgKKicI145GO tjKvP4QKEudiCcW9RwYCWajEx u TlL3g6Y1Jy9nQc1vRK3cAPD2B K71CR12xVQtd7B4wKT1X2VsAY DbjufyxwwzeYW4ZXTrGUSrsT9 7 hLPkNNeuHl1ev6K8p374NFUeB AOphV73Lf9eyDnuTFHmsPEZdA 8zmcusv1kutiqiQcNhGWCnGJh 0 RAy7DZVqfOvaEuAgYMY3AzD8J XI6hDXefR0blPiyhkihtY3bVg c+JtWvJJCtsgC8I1EpOwc4UVK z tTbhVG2ykWXkFZbgMi1jdOmqx TowII4yIVEggtaaPCTyaG5wML RtdPPlrXmzQR9sBDTtxkewk37 0 TyCbQCN9ZGAzgYWtQ0RlfS3qQ oEhSAYpGRGnR3HigMNoTWstS5 94TErcHnI7TJZyocOqI6PaYCM s gTbfCeS7w9D0Od8FJWccCO29K R51iOZmc3G5eBA9T2ByFSRisq ppomfgkKQ9JKWaOCWwdR32gLL k GVroPx0ts0K5v706VNXcMTKhn J10Yh8ijRftDIVvwBGLdZ2bmi bvb7ilxmdlBvAnIBZrBPj2JFn 0 ZQWmnXtqEjJzTCU0WeU2PPF8p EQhtY1osRssmaemrA8xGbh+T3 Q2mNI9uNJopSpkkQL+LO03pd7 8 O4ZzIujxIop8ICZmHRF9xBV6f O4jJHXnEYqul3G1oCW1X8Lxzy Aftq1sr4upFJTaUCxmL51gqYZ w d0N9KCEtoEV0DUKbnMsjZxYri G93Oyc+DSUuiEqkn4JjWcdsj2 wpx9zaiFa6SwCzEAMiseWfaGj u RFM9u8DeDj37Z53iFNxxGPNeE CJyENDkOTHhxMnxvz9zvO8sNi 8+FJRoaRO9lBO1gC8cSrDaVxR 2 PKneK718DbOlmMFaJcjpw2cuv 1qwvPu8DfFvPQUgwbUtnKgbJB M3q6VxAg38A1KhmCxuv6TvPlq 0 pc55vALuo2D4fLO0T3IkTDMxn nvyvIHrmUczIH3tALQrqnxiML RwvG0oIPCwT8l5OhErJpH7TBt u Y3OcpvK4KKDshXPuRCHhsVSWr C5xinnix8yiraezLjTcECDfDF w3BKc7QLPitPneMuYmJFM0HnT 2 YSB6fAEdcX7rvAdycfzgvX4pG yc+MWo2k4hxhFNmFZ9caQV0OK 24PN45oUMay0H9eOP3V4EuTOP p udkbyuxyeFK3IHWlHXQqzE52R e0weXigPa2qEQToUTY5CBRoiQ TkQ6JkeR1oYmBdWUDrCXRdF4B l aNCzDOxrZ063ZXlfCsN1AMKwr gIgU1ScCPBlfQdlWwM7g1F8Tm 2ZTS14WV35SZ55pTUjs3P4oKC 9 N1SkCFGavnpeumvstDY0ZPPfL AHcxL04Ua4wuQqcGv7bTWPkWI G0ITAqlNDsS7JixV7oIfWwYJR w LDPyW5FjuUQgAOgqO124GQcoZ cU4GUWazwViZ0LbFOFppAwcYx R6m2T8Bt8EZx05RO20HI21xHA g r3J4dND6V0TyDKRdbbtjiutwk TA8YDHbIXTptC60Az4wwMvoZs 1wEFHqGUQ0WVRgaVJjQ8IcgT2 y CwWbCZOfWELvJ2SlyGYmFYumB 928OCoiHbG5UWPdrwWuU4RuUF ZidByvCcO5z4N0Fv4FZBirymm 8 R8HjJdbnlKJ+JJ03GETsXM54l AWgfVWve9xviPe8ZdVyNDWhSS K3wMdzTFjhc9UcQNGyR92kuKE w c2U6 (more content not included)... [facility] Coding Summary. CD:[id number]:[id number] Gh0bW w+PGhlYWQ+SJ8ACMYtA84aaLV jqK6SW8pADA2EGRVDXGBOLS1G NL5dsVC1FKokR5NaetRt YfaheLBlZZ24ASa4SDY4aZmkQ ZlelC3gvDYzD0y7EsPaRH80mN 06LKjdKVSjIsQ4PuOjicauqWL y G4lzYtItiJYxYme+PHRhYmxlI HdpZHRoPScxMDAlJyBzdHlsZT 3rBf4nKCHxBZQvpIckdZUoZpL j m0caKJRhMHsqTU8yhZzvM3Bae XE8OUQsu7c5Xx80jDM+PHRkIH G3dOmgCQseq006AjRup8tiZXG 3 aJXkEWvpJSP4E68pn2N8UKCxP QPtHFJ6wZG8dY8rxKgordxuD2 AyfNXxYeZ8LXI9aBEulZ9axOs n csisiK7vAiz+O99JYC2NVJKHU V6AGzt9F0XbDzdowTY+PC90YW FmPZ67wLFgrXWxl7owvYe8FxP w KLDcQSH7sXdiXRdmt8ZnSBIiA 99igRHut5I9VADxlLamoIKwAg WvfUH6mW9uFUlhzrays0pnhac n Jjind8cxmm80qC18B98nAXjuG AEtXUL9MXWdYIXdhEppop9llX 9wIi8+MVbkp8fzl7zqdMx6AsN w NLQrimHnzNhxPKB8a8CnBt96K 4IzeQycs7JcVnp2mp06oCCel9 I1oAX9NKpaSXIzbQ2wTVvgTxE 6 TOWiRgCchV95cZRgJYtcJr5oh KayrWiwHO2mBLMbnabaJQVbrV 4lITEpdCYswOpbHP1kVLFkudo m v429VgSkHEF2VZGmcPPqR5Kqn C0mNzSqZCOjEAFuF3QjvOInHP zoM113OKwfJfD2JASkwzHtU4S s GLUonCdpFyB8p5Z0Vl6Gr1Gjm xphYTX4VUcrVBAfWxCfZeCnOz X9I3BqSox6KJAhhBklPZ2uD9E h EYZzjpkititalTN4ZOThDJHsj Z82sQNgDFseUl9tm4W9u184CD FtABZgmS84Uc7arJznYJLsqQC U vF6hihifm9uwihvwUlYxQDTiF Lb7HCb9MHFloXqjCgMnGKF0Ts M5MWX9fPBemH4jlYmegejyrB7 w Oyc+W22mwZ3rKVQ7MEY9altkG RYidiElCE48RN48H2IgRzbyoW FibGU+NTAfweBhsQnvJU1lJuA j v4bcb9VmWQknN8NgBWOwOKwbS ne9RMEhQQT8wOI0eD4fIVMzKW bkp0W8bCD3Z5QegmUfnk4go2m s EACrHYppL86zqSCeb1E4FJJkq CS3VMGplXjcNqRbvM68Dzr+PG XjjFnoa8JnKonbb2rzx8ulyGl 9 OyGkAFSwmhDsfDzeISL7m8SzA s30A95oTRtfKCBcRZZuIRXcXR LlfYcxzv1yjN1oTe5+PGNvbCB 3 iGX9mO1nKNBjUdQ7QJjwL438S aXqfWAbJjeba2ati8ivfTi2Dd UzLEKjzhRctKkgOAC1g7HmQc1 8 I85dHExbVRTaECUzHLHoJORig Dmaxo0yuL5lTe6+RE1sv3ccej 10tX44cSI+FNDxRFK3lEelZAg w BELeuF7zDVuwUaT6KJVyLpUgy K56gRZwAFogGs2xuIggwQkfVD 3wIJWkplbkl920YwSke4cgKGI w nRXqPKhgVST2P07zc3E0ZBJnH VOmQFH8tEE9aS2srAldxhxtgZ GprQhubnCexAcfWLebKQkxH70 6 IHRvcDsnPlBhdGllbnQgTmFtZ Us2U5BtLdo5MVGjkZiuXZ2ldB DxVCldSr2tuDwbsSaeGO8fWCH p uiwmo942DaIiw6maFBXugSAeV PgeKXP2E27bj9K2XLBzNTKlYZ D5wAD6jQ1keEoyvylxsJCcxBo g frWahJrbLShiQTfrR456MLNnc HxaHsJmxhRcJSByhYE1AZ42YX 45zDRnw2F5zWK5E3QwEVMztbg t zyuthOU4YZNrVFVwmL76Mu2oi XxmAj5jMBIoZRG3EJPocCZaU1 YexH7qGoMwKRGpHLHyW0IzxJQ t MXcfW078GYahPbN5SWXxcwOwZ 3KxWXFrnVgnAvU6s4S5Yl4ZV8 O1GH71RJ56vKTsi1Z9aMQ0Y2M h MWBkpwzwmacsfRW9EMMaNZAnr O27Rs2wuMpiZp7lBBJqFCZ5JV JufWBxC3NizP8xRkIpGHEfAXC w B0RjwZJfDIixJ627MBtyIyT9U JSlfeXhU8XkAZZigGtpLzN8l1 T7Nb2ZXFb8HR60LU68yAKnz6O 5 wIY3J8GyIPIstysrjtsilWD6I SSzTITvvX44Vd6eqTjwXv1pQN XbLFR9PQFrzPAuL4NmyT0oUlB j ACBpLRSzC5CzhFMxZGqkF297I EaxWiI6DIYldwDwE4FvHTCjhC cuHyC8g6K4Pa5CZZKcWQ33KKW 5 uRP0JR28LG83Q2WoIwjikQLyi +PHRhYmxlIHdpZHRoPScxMD RfVeGmaEdfRU6bVu3mFAJpBHC v hOodqBZaXvQpd9bgXDOyQEgxL E8aeRthW6EphPP2HJXci1s0Ra 82A70xY0UxgQR+FQMgcYB5iFB 0 lU1cXwAjRnK1LCpnH579EbTtp ZVsJebva6vbv0jdfMb9QqF2GF RnrcRquKfrRAU6n4PbAj53J21 s IHdpZHRoPSIxNSUiIHZhbGlnb f2uwO2kUo3+JTAcuUC5zNG7uL 5wReKoYvS2IFwrR549AtSbfCF v Cajaq6fzv8ggqAu4WoGbMHKia tDgrLcyTQB5i1GoDg75U1CcdU hee1AdArx8bh57mUHax3X8eET 9 A7OxATXbtnsxeVAbgJsyQT2nI GLqhkvjXWBcdF2wOYBjH3x3Uh TzDaW1BTigP6IywqA2CKQmlNZ g XUfkVFQ4G19mq6X6QAIzJHRyH KD3wJY8bX2gdFgfkodtsVYeeK nihyHovNjsPOdqYJonO270TEI v mAnaKDWuqZ5rXFDttOItzBxtA Z3dSMQqoipiTgETAq6UXezhNE 1LZPrEAUk4R3GdCxl7KSMtaPt s PE4huWFfCRpnPp2zzXgtqDtuC K9lEFGgmjqkTAMguI3fNYErjD ErqSjnYE9sYMWgpwymy019KjA x QXL6BEXexSEpG0UfdA1mJgOcA ULdTEXvL2SdrWKpKRizI123SF geOaC6RAMvbiHqR7IeULUtwYa u OlF0u5Z8Sw5rQc4bWL7nLEO9Y R63VL47rGDnf6E0jRL9E3TcKN UqzhbplnemiMZ2VLKiJVXemX4 7 cYTfQWkiSh5oa1O1r950UHBpZ BZdzB09Ji5mpPugPLRzuJWKpY 6pheulg8jyftsjQtCnOLYrROk 0 DVf4GMJamMdtXgQuWSW7BlD5Q ZY5xUGzrH6psSdorshfaV9wWo c+DuIcLPLnxfA4K8RtUun2UBD z rQleGX4quSAdTTxhPz2jjUykj PcdQM6fBDRlstdbBRLqqQ6fYJ FhwBTdjLwbVU1mDIKdsljyc18 0 CzKxISV4HEPpbMDqP8LzuH8mM lXkEBQyEYLoN6VuaFWpPOvoA4 94NQpyIxJ8GVGdlvIdO8UhXWS s fTaiMjQ2s6R1Sj8CWHypPL81Z N25rFLsg9S5tWD0R1MpRQAsov anmqmlnCE7CCKfWOGidA44xDQ k OVymPa0dn4G1e196OOIvMTOkg P63Wc0taWyeVLFmoQLIbJ1vey kjb7iqhqejWmKkAWWfKQk1LCp 0 JTUwpQmyImIwRRR2ZrC4BKG9e EWqkZ1szYuurrspaF4dKfi+T3 E0jIY8zSPucXfpcMF+EK01hq5 8 Y2LxMvusKsy7JNVuSHO7pQH8v T9uJBFqFSqjt9J7vTD3I0Itau Qfur7xf9gxXUGgWZmtU56nyFW w r9G5UOAtjAW2HEYzaWkyCpTtu G93Oyc+FXGzrVhsf8JrLggxs4 ktt1cazAb3PyHyFNSfuxCqfPd u JTO6x3OtDn06P23iCDobSUDfT GSlWPMiFBKxdJvppq8iuF0jZb 8+VUJenFW6gAB2yA8eOjUoTmY 2 LWxvE794TnCpnAByImhbl5anq 5somUl2JgZsXRPgeeDemDkuJD F6u5SpQv43G0RkpKvgn3KmHxi 0 ao32rOMgb0C9hYJ3Z2PzLTRns zpllIQfxZvjXQ0pIOMkyiinBW RxnU9pRDDqH6m4MkSvHqS8GCt u Z3RahbK5WDCirSXaJVJiiFGVt A1nszdci7oevpmuOyRvLMQvKX r6CUq7MDNrqIucQmPkLLL1NuT 2 IFR4oRTsnX0djWlwrxtxqR4dO yc+QFn3g8hnzQNwEN5leLY1CA 27GD09uCOrr3P1kVS2O1ZeIOL p ohdczrawmRC9NPGiXUAlmM10Z q2shHstVl5rZHLxHPQ8YPBlvX AvD9KjbK9aNnQwBURtVWDrI9R l lRYpAAjaU207ZInsEbO5JUWwe hIbL9TwBRYpfJboIhX7k1B4Fz 5YKB77PZ00KU49dUAde5F8vDC 9 S6ThORPkstvzidlxpCN4AIAvP QQtiS54Xp8tnYhlFk4bZNSuDZ D6JWHopKIyI6BliU1hLgJjNYG w TAFuO2HwiQUxAAqaF985NPkpK lF3GERldoFtR3YbFEPxbQkqCu L2q0W7Af9OAi83XY37SF51pQY g z6K1fLA2I3NdUMQppxrxwtvsj RF2IBXeBTVxqU28Jo6vaUneNr 6jKHUnSDR0QOPxtPQsA7NexL2 y UcGlYGTsBVAwL8TzuPWfEGhpN 849PUtmEvT2IVBlxfPeY0PyBQ YssAxqSbA7i8D0Cf4EUZrijoa 8 R2IjLzwqcQB+FG21JVZtJJ14n ISlyOEou7mpfPk7FjLuHMRrJA P9iMytMYsux0IbDIWsM01sdTG w c2U6 (more content not included)... Normal [facility] Physician Orderon 12-30-2022 Physician Order [id number]#1.00CD:[address] [facility] Procedure - Woundon 12-30-19 Procedure - Wound [id number]#1.00CD:[address] [facility] Consent for Treatmenton 12-02 Consent for Treatment [id number]#1.00CD:[address] [facility] Multi-Wound Charton 12-27-19 23 Multi-Wound Chart [id number]#1.00CD:[address] [facility] Nursing Note - Woundon 12-27 Nursing Note - Wound [id number]#2.00CD:[address] [facility] Consent for Treatmenton 12-02 Consent for Treatment [id number]#1.00CD:[address] [facility] Multi-Wound Charton 12-24-19 Multi-Wound Chart [id number]#1.00CD:[address] [facility] Nursing Note - Woundon 12-24 Nursing Note - Wound [id number]#1.00CD:[address] [facility] Physician Orderon 12-24-2022 Physician Order [id number]#1.00CD:[address] [facility] Procedure - Woundon 12-24-19 Procedure - Wound [id number]#1.00CD:[address] [facility] Coding Summary.on 12-20-2022 Coding Summary. CD:[id number]:[id number] Gh0bW w+PGhlYWQ+WY2ZICUkD21oyOL ncX3DN4tXJB0QHSADIKHYYK9D NI6zoWV0NMtiI4NejpDx ZbrbtOBdQH82CNr2EQC3nBhiW BxwaI9xcPOkD4x5IlMfBM83iC 53DOfvUOMuKhM6GoVuiddifGB y U9pnYyXraPIfWqp+PHRhYmxlI HdpZHRoPScxMDAlJyBzdHlsZT 9rHv9lSIMmAUDgyDuavFOkSgO j e2czFNAdAOcbOU7scEgvQ9Xva SW0STQvi9z9Nh28nPA+PHRkIH H5sVtwPBhyc923JpNps8teTRQ 3 kNYrFAvsISD5M96jx0M2KYWrG GCvTWP9lHL5oF2aqYxduggsW8 FlkIGqOsT0TCO2yPWznO8fvTv n ymtaoJ1uCzt+B09LOZ2DRBFMD Y9WJvj0V0IyCpdbkKZ+PC90YW UyDQ52lEAkqEOid4yjoNk4UiL w IRZtPWG0gAcaDFush6OwDKWvJ 39mvMOop1K0DIZohZrlgYOiOe FdaTT7mC8qRXfyllmsq7zajbh n Lsbgh1fzlj02qI23D38sSKbsN UUqHBU4UVGtLPFxlWifdc4cuW 9wIi8+ODcyv3tkq1ethYn1SuP w FDRljnSysYyhVKX9i0NmTg58Y 4NonMsxn1NmLec5he21gSNhd6 D5iJF4NSoiDNMvrL7uCOmuBeG 6 YLNuZaLmsY43kQYxCFidXp4gk QiuyMmeVG7zOLKtwaewNKBqeS 5zELXtdKLenMxkDW4lPIIqyrb m u688MkSzGDP5HKNwgYOnL9Loh D7iAoVdFKEpQFBiK0GelISsNZ ccQ832DEhnNkV1SBOkofAuB7V s QCYdsZaqKoM2c9J2Ek1Xm9Xni gzwBCW5CMejYJTuFfMrWiCeVi X4H3EkHkx3KIOviMwpLH0tB7O h RCNijtsvezvoyKR9FCVeLRZsn F40rJVdUNczZc8ka8D5q093QT CyFQSrtP58Oi5qfOqpFENvcPS U jK6qgvfwu6gfomieRkEnNGSeW Ts9PKl7RNFdiJdoFpXaGGL5Ki T5RHU4sVIyvS4klVitqfjprG0 w Oyc+D32wmK6eHYO6MHE8hecjT DVizuSlZP46MV15P7MuFmfglW FibGU+IHDuooLraZmjPH7yIzO j k4xvb9FqTTvsN5SrIKOaPXcwZ ln9ZHTsHOV2qJG9gK7jOAYuPO isd6Z0nDQ8E2HngvKojw4pj6r s GKIcAKyxL12ouURtq9Q3PIMix ZG0ZFUdnYvxCjIskY42Bgt+PG IytJlli0YzChnyi1ivf6hneMr 9 NzJaRECxcnPkgPlwHSO1v8EhC a06F08dFBeiYWWdNTVkCFNdUK XksCgesj5quF0eOi9+PGNvbCB 3 mMJ9oE5cQJFcApN1IOndB583O uPhcRCjLnevv2ecb1khpZt5Tx AeBLXcviTfkMiyVWL5g1CcJj6 8 S40cPNuqAEQfHQFzJTIxCVXfk Ysjax3rtR0gJt9+UY6zt1trys 27sV44qLJ+PNLjTUW2ePpdGAm w BXMwnN1wDEkiSbU8IMLkDeBky A52gPQlPNesKz2rfBlvmYhwEB 6uYIQhbacvz448AsSkb3vhTSS w pCVkUUkiIKQ1Q63jq3R6LWAlG XVaMYT0qQS7hE9qsFuhltteuP BrrTqzgmKtnMpdRGsrQPcxI46 6 IHRvcDsnPlBhdGllbnQgTmFtZ Bl1S6MzYad8GVKncYtaMH2hvI YoYQbkMt1bgNopsLrfAK6kGRI p qmgmn927PyMkp9icEMAtqNIwH WelWQU7F43pw8M8YBZlWTWqIT R6eZD8xY8iwMpfhkglwXDunZp g jnWfvAxhGJgmPRdqU293GNAyg QmyOcWclfIgREJzgOW0JW25MM 94sTDrp8J5wMS6W6LeMESjzlc t rhstmJQ8HRFeTSJqyU45Eg1yf IesRm4zDEVhMCM1MKCvyWCgO1 DntD9eKrClVEJlENTuL0SevQK t APzkS096AOweYuV1RWBpsnObH 7TfMUPhfUepUxU8k5Z8Am7IW0 A8IY23CK42oLZgh2D4eEY8M9Q h THYwyfkxylqbqMR4RWOtDXFpu G44Il6ucJvqMm0bOYAuDSE4SH DqoZMiN3KvrM3oScOmVIYdHPA w E1FmjGCqTApsF757QUzlJeQ8M HImuuKvV1MvMCMbpHdwHwJ1q1 I3Sh3NFWb3EL47UO03pXQxi7F 5 gJX9B6OrNHCfukpardtstGC2V IOvDACfzW99Vk1wzSwpEr9tSE LoLUM4ASCagEXtI8ToyC9mKaY j LZXsDAPwC3IkbFTsOWvnC008A NxqRkM9RVHqjaAjR0FxDRXceP rnJmP2a0C3Ii0UEONvHP61AJX 5 dLL0OI15RN90Y9SfMzscfOAyx +PHRhYmxlIHdpZHRoPScxMD HfKnLfsDzcFP5iEk1xBOKgGQF v vSmqjISmBqPtw4gmPMRcOOhrY S5lqXsrB8NhdJT5SPRdp3o6Yo 97Q52wK6QmyCK+LZCuaTT5dNG 0 uN6jOjAeUiE2TUsoQ363TmYic ITxWcuty7ccs8crnVy0HpY0FT GzelWtyPlgTIS1p5ZfTz83K97 s IHdpZHRoPSIxNSUiIHZhbGlnb w8ygL4aYy7+FOPruJK6kSE2yX 3mEjAdZkR2JHaqO793TdNsjER v Ommrp4iny4wkcPn4FnDgPTLxr dTshTabCED3i0ZpIo83Y2AayG qlu9HnFfb1qe55nURvc1N7bYP 9 N2TlQBXalxvxqQJclPhcFS2yF OWrzelxMRVtqK3cUTPzU1l3Vf KuVjR9QJotR8YsqmV8TUEcbXC g JOjcVSX0X21cj7B3RRTgPRZtJ UQ9wMY1yI7kdMgklptdkDUmwT ubgqCjkEkqUZjmDQnmZ395EKA v sBwpHFInnV8dXTJawMUrwIpyO Q3mCAAuaggbQaFBEo8KYafjSL 1FLFkXSZv8R1LhDnn3VZLvxBh s YF1knGKtQXcuDk2gbBeqoRvrB A6pEGJevzolGFGtzC6kETIxwA OttZprYC1lKICofpogz741HbS x JYI3YHBhqFAfS6FflX9iHvWcT CPnPCPsK4KwmREpPFsrY435KV ptSuF8NRSwjoOyI0QbJYPndMs u AfR7y1U1Af2tJp7mFB2eALZ7N U27IA70hOAao1E3uYR8P9CbTP ZwaoopqzsreTY1QRSrTWFbfW1 7 pZAgBHpgPu0df7A1h968WJWkL HLszK35Jg4sjXapVRXwfNUUoD 3gwizst9qznmvlCfMkIYBqFCf 0 NNt6PFIvqLghAzKfBZR1XzW4Z JI8uEApdS9xoGelzcyveZ5vLe c+KpEwIVShlzK7Q7IyNoh7VIJ z bKzeYU5dcQCfTQprEd9bfKfjs CyhNU4wXWHpcsjrXDZjlI3jQF KksVPwwIchRB1fPNUvkcfat64 0 GcRuRHD5AWZhhNYaJ1VcxX0wV kPfJQDlAQUqO3NhnGAvGUaiW7 48PQmfXdW9DTKcmfVmG4DkZFG s pHsvCdF4b9H2Vy6UBDbaAO14S E34iTQvd1J0lXL5K7ChCRAovh nnozfthMO1TKFtFQEboL05tNH k NVvhYf2vu0T5p555IOGyRTGfq C42Ji9cgIzaPTVnmLPYeJ0xea rvi1qgmvspHeLmWIDxHKb2NDa 0 TQZdpDvnLwZaFUE5VoA9VMN5k NYqxJ2aqPvxszhjhB7mWus+T3 E2xBZ7sSEgpVlgxIK+JT38ry7 8 W8EsVgemNfg6NHUzAQZ8xFI3i M5tPDKzGUpzq5E6iYT6E2Lwql Ruxn7qw0afITAvUGdvB51kcCB w l6N7PJRinND4VKAxbCumYtOqn G93Oyc+MOGmyHhlq0NgGdjdl1 aoc7uxiWd9RaThLEEzbqTcfWc u ZCP5e6MtLy09S87sINqwSXXrS DApBWJsDXBpcTciat9ccJ9nZo 8+FPNirIQ3hTF2qS1zGsTjFlZ 2 TLhhC461XhOehMOvBdjli2xcv 8vpaBk0IkAeKSKitaObjEztFO Q1s1XsKw57K4OmgRljs1ZaVrg 0 ws63qLTww3S2dTB7K2IsESJwf ckfzTSqwAfiFQ2sKJKqudtgXG FaeP2qYRKkJ3z9JiLnXzK7VUy u I8WgscG6PDZvcIFnZRXlvQMJq N3skfmab9iqofdpKkCqSXVeEH h8GLt5CKVtmIwxIpSrCKF8StF 2 BYP2qIUqmA8krZpbcmqjwU4yP yc+GEu5b9oolYPcRV1xsUU5RG 44SD56lXRin3T4wNJ4Z5RnLCX p ltdrfqarlHQ7NBXzVBMdoP42Q q0wyNrkBw6bSDXuLKG4UDIwjT BmO8OghB9fKyUxNLJnFLZqM1U l oGFcHHlwP590PRsqDsK8ESTaj nGiM3WgGMLsrAhwXeQ0e2C6Tk 0DRJ64PS07BP71uVXtk1N2vYT 9 K7ZhTBMozrcphkiazRM1FKQnQ DAktS29Cz9aySxxNk8cOJVvBL X1UESgtOHcY5TsfV3fSaGwJUK w IPFsT2YddUZzUEkdW316AEfkG cE2GRGsihYaK5KfETLbfHxoDu A8b2X8Sn4QCq64HG10CO68dNE g k8J2mOM5X9ReUCQlqgsnefxol ZY5EJPzFRFzuU63Rj5iuHmxDs 0xBMIpQAJ5UEAykBKbX0SphK5 y ZqFsGXNyUZKdK6RbeHTwYHijY 511GGhuNwZ6WLKpomDwU6YoGR BxlLuhQdW2g0A3Bg1KJPobxkq 8 T6JiFudbfSC+US66DTXkUS95a IYdtOQkb0lecXm2PrQqHQCpIF Y1xStqWSbnw8RzGHClK67buTC w c2U6 (more content not included)... Normal [facility] Consent for Treatmenton 12-01 Consent for Treatment [id number]#1.00CD:[address] [facility] Multi-Wound Charton 12-17-19 Multi-Wound Chart [id number]#1.00CD:[address] [facility] Nursing Assessment - Woundon 12-17-2022 Nursing Assessment - Wound [id number]#1.00CD:[address] [facility] Nursing Note - Woundon 12-17 Nursing Note - Wound [id number]#1.00CD:[address] [facility] Physician Orderon 12-17-2022 Physician Order [id number]#1.00CD:[address] [facility] Procedure - Woundon 12-17-19 Procedure - Wound [id number]#1.00CD:[address] [facility] Progress Note - Woundon 12-01 Progress Note - Wound [id number]#1.00CD:[address] [facility] Coding Summary.on 12-12-2022 Coding Summary. CD:[id number]:[id number] Gh0bW w+PGhlYWQ+OI0OVEXpI75hfOQ moG2WD3iPOR8LKBLOALSKMI7W DP4rwWE3WNqsY4AyibYt GwsbaRCcMC21RPy5YST5fIqxI PiuiG0vjKKoP2b8JwLoGG36fQ 20AIqyOZNhJbJ6RtRmfuxmyMT y V2akClYwfPMwNzq+PHRhYmxlI HdpZHRoPScxMDAlJyBzdHlsZT 3pUc7uFALaUCNxaUjgsEOgLrF j z1reDAWcWAhlMP9txUfzO6Sgi ZN6SRRxa1k3Hv82kTA+PHRkIH L0kGvoGLftv479MkJcd6ixAVV 3 oGBiJFmlGRA3J34nd1J2AUXeS DHjYKP8xTR2bM2nvSqjdlxkJ2 XrkAMkEwM1YLE4tQBhtB5uiYk n clpumD3zNxx+O08NAD3VQHRLP S4BQop0V4QkHvzgwVQ+PC90YW QjSF03hZSviUIxu1aixLb2VzP w AMIsUJG8eLiqRMsvr5KdQHYsI 21muSIll0X9BDAkaOstpTSnMo RylWD3wV5kFUfgexzim8mbwna n Mtvst9ptvd38tE04U49tYQshD ZCqYZI3KTMlRMRlcRrtuz2tvM 9wIi8+KYqnc2obv4pcmXg1IoP w MPUrpcFlhWcnKAD8y9GsLh19T 5CorKhhl2YrChk7kd82oAThw6 S0rFS5AZbfYFVqeX4xYNumZkK 6 ANSpMaQeqN94sSUkCRpfOi5zw BmxxCkqZY6pQBLrgsopPLCbqR 5jUDFbxTJenBayWY7bVDHjguy m h726SqWnWPN0ZUUtpLKjU9Jcn F5tAhLkEPOwKDOvL9FjtLRcWE bcJ283MPckBwM9AOVknxGzQ0N s ZMFycEszPpU1v9Y7Ru1Ud7Tpi sxdZZC5VVejPKZpNaOcWmQyOt S5J4FcZhi2KTBbnUigYL2fP6O h FNIqqljperodxUY7KTMhQYDbs Y98wCWnDLvxNh0ml2T1s649RS NfOVDxiO65Zy3otAxmZVLyyWA U hV6wpgamy1lmiqyqTpUsXVJsH Ev0HNd9SUKrpYviGxLdBPJ5Bf F2STR7cVTsaJ3bvTzhukmbrA1 w Oyc+D42wpO3fHMO6ZFZ4mnawV BZrltUvYM94FZ55N7XwMtmlwY FibGU+XNRhagNadQowVF3nZjA j u4stx9DsVYtgT7ZoQRApVBruT fp9OULvEAG3rGL4iV1gYCKkEQ tpe5T2fAC5E4JaupCoiw0hj5p s EPDkIHjnU30smHTrc1M0XCAxn PV9NPCrrRpfYoKdlK44Ngz+PG UhzAnvu5FpOrsdd2clf5zmgKi 9 FqJaHJVwvoOaeKkkWDG4y9BxG t40G91dMGitVSKeMVTmBNLzPU TciGycov8cyT5sAb5+PGNvbCB 3 uZC1kN7nLCVbWmI5ODaxR990J rZjqXGdUxfzr2axh3treKn2Sr GxWMNqjhJlcTijWTX9e3KvUc7 8 G35sEVfhWLOeBGMhIZDiGOFuo Hbqyi3oyY6dSa1+XE1sx3jiev 70zG67tZA+LBAtHDO8iFpzNDu w SLBxjQ3sWDxyUiQ0GGOgDiVly J60qTNwBGsrDr3pfUzmpBglQD 9wKKChwzdjp126XjCaz1mzDWB w rBCsFAjcCRS4Y64tx5Q7JPTuL YPgZBW9qTH1gL0fiEbnaonzgD TvdNqodrWqdDskKGuyYRbcP28 6 IHRvcDsnPlBhdGllbnQgTmFtZ Mz7Q6QsXzs0ELJntKclRO6syI RuARbhRp1yyXyciDnpOY3eIVL p zyozq127WgZcm1amJZWkrEOfM FfpRFI6V87lk1R3FOOyDMSbSW G7vWS4aK4csZjmswspyUWemLr g zaLtmLqgPOycFFrsI446NVNky BprNxPduxNaAFPwyOP1CT29AP 12iLRuf3M2wRB5X0GrFDQkmdf t jkrnbCN1RDEpKIUxuA69Np6wo GlgUr1iVNMpQYH4OJNviBVmU1 BigB2oUoRgYLCrZYBmQ1OhrOU t KJqfY189DWpqKdL7ROTzxgQiE 9ZxGLXvrUnwUxJ8c4S2Fc6NB6 N7WH69KL31uCRhv6Z4uNC0C6U h ELMpvjetbdahgSM4IABwTDUgl F65Uk9dzLejIx2iVZCzZNP4EP OblTLhB2XyjB4dKsJtCTVzOMN w Q2KdmYPySHtkU067STjnGuH5W IBndaBlG9UyBEIzyDdnDyM7b2 W6Fm3EGYv4AX27BP04pLIoo1G 5 yYO3R4ZsYRDoygydotgmtTN8C EHqZAClnT22Zk6zkCjyGa1sOT BhXNG5NTAokYGxT3JvvY1xZlH j ZJCmECBxP4JluXNnDPmkT947J FprRlK2NXZcvfSjJ1SzDKJknZ qfWdY7w6V1So3FEPYrMQ55PVB 5 rCK6TT41WZ84P7TdWntmjMYkg +PHRhYmxlIHdpZHRoPScxMD WmPrEgkPlfIM7iBp0lCRBzYMU v iZqlfQUzSfZab8hpVOSePLycK C4xmLcoQ0CuqKB9RXPid7i4Yq 33U04pM7PqlEN+BJGhqER1pPB 0 xY3yDxJkBfU7MJmlT705WrDco VTmWdmnd3wkk0gfyAs4DpN4UT LtghTnlLbsENW9b8LlJa88T78 s IHdpZHRoPSIxNSUiIHZhbGlnb c7mhT4uNt1+OFOefFZ5pYX8xP 9xXgCuYnS7HLwiK852CjKswOM v Jvyhx5ers6ejjIn7OtDlRLSxs pRfbMhsICN2j6YcRh71X1VbpB rby4OuSjp8px54lWKlw1C0fFQ 9 D8VdNLWtvxdtoMSsdEvzWQ1pP HOnmzzuMOHzhR3ySCPbM5f7Ov KkIdM2ZXgfQ6FjfvT1MIXauHQ g WIzyVMV0A73yh8T0IKFqGCIyI JB3jHQ7pP9xgNxyldrwpTLxoA iszvMhwQrwXMbyOWvpH026UBN v wUnaBKHajX7tDBTyzORzdKtiM N4jBDWkfcdkFyDAYv9LOanfJL 9DZHfQQFi0W7SzCpg5JAAjiVg s LG8ewOBjFPmtUg4exKykyKlpO U6tBAGkegeeSGWkqX5zBRNjyV YevGpqBW7bMAPtovpfx838EnM x EQR0RLVwnLEfO3GhdO8xGyMbV DIgULWmI9TzvRPfBVfkN987WY qcRhQ4XCWssvWwM0CsTQAkmAz u VhL9b8Y4Xc6oWh7nJX3nVYX5U E93DZ53rVLwg4L4oJH9D4InKZ FrurzxxxnxnMH1HFCnUUWejD3 7 vGFqXNksQk6hj3F8r651ZIHeG JBtoY00Vt6eiRxqQMUruPQTqY 3mupfen7qxuzyrMuUcBTWoGKb 0 WZd8MTRyvVboXhLhNDP9AbQ6A RK7vVKgkW9brQqpnnpjnH7oTf c+BlRyIYKvxpA6R6QmYkh8BQN z wJchDW5mdKByMIrxXn6epBbjp CkvNU1tAGIsvkxiQOMiuN8bGA EcfFHqoDkjRA0iVBOfyflbf30 0 NkUrVOO4QFLkcQUnV8SmaW4kQ sOtDJYpCGDlE7HxiYYzPLyzV3 67LUgxFuM3FOHyakFfQ2YjJCT s rImpBsA7s0J0Hv3OFVzjOI23P S85aUHmj2G0uES0H1AgZNLumu cmgfehjEI8LBVyLEMnmC73kEA k FMrrRy8nq7J2b641YYPpNUAyy N90Sq8cjXkhQHTsgEJRtD1klb jce9ababasHdQtFVTeZSb0BDs 0 IXKmuDfuIjGbALY5RzV4USG1x VBnqV1ekWuovdnolE4tGix+T3 J0zZG9sMQkiWfbqWH+JD11bg3 8 N8TrEyrpQqo3WLPvVUO5eEZ4g M8rTEImBRxjj8P0iHK4R3Bclj Lpei1ku7rdQQYwYXecC21tnJO w g7X4XOMshPK3COUudAqeCyDwp G93Oyc+GGZljXgvq9JkXlrsg4 ghb2tpgDa0TcEyEJOngzSzlHl u LCM7x2VvVq32T14pJEgoLMKjJ EAtRGGxMDClcRkvea8phG4aEc 8+RWLwjEZ0pQB7vD3fOzBpLrS 2 AEwjW966MwNtfRKeDqrkd4fox 9bbmTv1ZoIlSZRflsRsaLreXG Y8e5DnSa53M8JsmXkvc9VjFvi 0 eb68iJAho1Q0kSH8U1IzXXIhl wzndZColVjnYT0pDXGgzvusAH LxfP3zIXAyM9d1HhRaLeR8NNr u V4WrfmS0GBVkmVJzYJYasDALn J3yknkqe3xqcelsJqLoDVYlXJ i7UQj1LJCttTkdWlReRLF9BbP 2 BLC2kGQutU5ovTmaocpvwW7bB yc+JXv5a6ebmTCbTC0xhUV0WW 60GA41oDEzd9U2lRE9J2GkNQQ p adoqjoemfBR1IXGwFZUigK98Q v6trHasDl0gPAQsVAL2MBBfaB RnX1GjzC8aRpTaMHXzLWTrG6G l wIMoCMqoS926SYohJkY5YJIzh uXaV3VyRIYrqBcrSzW9r6D6Ab 8CMI00DD18LF43lBBdu4Z2rNG 9 R8BxXPKcohdcydthbGA5MKAhY VGvhO07Ux8wxIqiGx2cPXPsYI A9GRRzqAWfU2IsyA0hHlTiRIZ w YKTwU2CbsKTmHIxzF477PKqgV rH7YXThhrGnZ3XaMPMrqOrvHs Y9u1D5Ml9ZDx83OI77UU57vIO g e4A5yDE7M9XrENQljfmycdjbp MC3NYKlPDNndT99Zw6bwNbjOp 4bUWCoVAJ4SUYfqEQwX9XqiP9 y WcZuPHTpJUCtI9CmiNLoXXiuA 490NGfuOfQ7ZGRnzkKtJ0OeBW ZriTxqMjD3o2L1Sn7CVAewzjg 8 I7NwAuxwgTL+MD28PCUjXJ25o XLnaRIll8jneFt7VsWkLHEgTD H6wNvxSVutz7RpMCKuO51tbJU w c2U6 (more content not included)... Normal [facility] Consent for Treatmenton 12-01 Consent for Treatment [id number]#1.00CD:12 7 Normal [facility] Multi-Wound Charton 12-10-19 Multi-Wound Chart [id number]#1.00CD:1 27 Normal [facility] Nursing Note - Woundon 12-10 Nursing Note - Wound [id number]#1.00CD:[address] [facility] Physician Orderon 12-10-2022 Physician Order [id number]#1.00CD:[address] [facility] Procedure - Woundon 12-10-19 Procedure - Wound [id number]#1.00CD:[address] [facility] Nursing Note - Woundon 12-09 Nursing Note - Wound [id number]#2.00CD:[address] [facility] Coding Summary.on 12-04-2022 Coding Summary. CD:[id number]:[id number] Gh0bW w+PGhlYWQ+EK2KAWSdY08otLC cwY6EE2yKGP1EBENBSQEQXC0Z AE1qgAU1ZByxV1GqblRa YngchKCoOB67UFp7LBM7dKwnC ZtamA1qjFYgI9k2OjRsSF30vK 06ARvwRXFqLkF8MpHkuxhvjUW y G4vlKjNbtDBsYjd+PHRhYmxlI HdpZHRoPScxMDAlJyBzdHlsZT 6aIf5qQOBsQAXkgRzieEPaVzI j k3itRRUlFHcrBK6qvAlwR2Kgo IL8MPXtb3n0Cj87nLY+PHRkIH P4pPspBKqyn790VmKmj4ctGSH 3 vPMdLHauQEZ8J34oc4N1JPSqX CKjDNK1vGH2nP3paIvhnfyqQ1 AwcCUkDkF4JLG7tPGhwT4lgYx n dmdjrT7zHmn+P97LUZ9HGLOPT Q8CXrl5L1OyXovjqNN+PC90YW FgLZ60iTEriGTrs6yxoBx6UbU w FEUiZRS3aHsxBFnrg9FpLCSfO 45mnCToj9A2RGYlyMdpxPGzFp WmfSK2jU8vVGdjakplg3jpyaz n Zpodt4cdwt07qI79Q44lGDpeE JCwSWM4ZVXvWYDncHcxtz4faT 9wIi8+EWmmu3lix4oqnAr7JmF w LPWtziZvqTvlDOU6c5ZkAm86S 0YndHhfi9FvJan0tz81dQDvw1 V4pQG2JEnyHPDxiI4dGSpoYsX 6 WETvWjOfqM20qAGtBKkqRw3cs SffzCpcSU5xOJNfdymwYQSjyP 0dYBCkaCImzJfmTQ8dXHVvvlq m l487VwPnFDI9MOVgpYQyG7Xqb T7cKkApRBVmRILwG8JrkQEaJT klC130YWdqXeL9BCDvwrUkE5H s PJVxfOjxIkA1z5X0Al4Mj3Xpq vypKZB3HFvpOZZmHzW6LpUuUd H6L2NyHsf5LXXauFanFJ2yL6C h TMLtbbvditkmsAH0CQAtJHMeh H00wAOdBFqlFu3tt0S3f338QA MaMPTneK76Px8cgIogDKZcgZT U mJ3fopjjn9abatmsLeKlMNYgB St7DYp4POKwlKfmAbMyYQR6Yn V9ZHQ9kWLgzV9xnHjnrbqpbP6 w Oyc+A39wtP1vJXH3PCI5jrrzT NYewxPyVB23FK81N9JtKexppD FibGU+GVKestZzkQmnPE6nQuR j x0zxb1GbSBzhD9WlGUHwQJyvK ck7VIHeHMA5rGA7lZ4sPGKePV ubf6A1bYN2F7RnxdFpoh3vy3n s WRVxIVzcT45fiVBib9G6XYDbz GN4ARQiwEypXcAenE04Aty+PG FnhEoig2RrUjctn6lza2mwsMc 9 WsUyGBFvswPqbKjhCGB0w2AeA p21Z33bWTgbWKXeHREoLGPaTE UtyTddrv7xpA0eOp6+PGNvbCB 3 wAZ5hP2fPLTnUhE2CTfjR569S hXtjCQgGftni7dge5kaeCc9Hd EmNUYmkhProWvrUWP3k5KwTs0 8 L75oICoyFYSbWBQuCTSpNAIrp Tvbli6wkN8qIg0+JV2fd7abpc 24eF59fNH+FYOaRPD7mBtqHFf w YNClwQ9vTXlcSsP9POXeJpTir I12zRBeVQwdCf1umWqcoDcpNZ 5wSEDwtqspq999OqWmv3jiEJX w gCHxGIvlVVO6U99ok2H5RDCfN MSrOFQ5aWK0zE8cnEscwkvchE QayBvtjyYmcEjkWIlsPHhoU12 6 IHRvcDsnPlBhdGllbnQgTmFtZ Yh8W9LiJxu8IMBhzHhgCT5wvO NeREtoPl5wbLibtCbkUE2nXKF p kziop377ZzVvu4nqBMRovZXzP TstFTU1Q17kl3O9REJpRDSiRR T0jEX6yT6ggImwndilqWVwwUc g sxNnhIcbZLrtNDuxD468PHNmy VxsEnLikuGkJJHygXV6CL34FC 89tIBgr0S8bCG6L3YqODJitbi t xuvlmNA5RCKuSYUcwI79Xf1pk DqgMn5pHFPjHZQ1WPYycYTjZ1 FzhI9xTuRkKGNtUMUuY8HswPX t BTdeI816GNcaGpZ1SSWbbuTyO 4JuHOWvjTopEjZ4b4J1Ut5JZ5 S9UD52GP82dDGit8H2gAS6Y8H h TIUfoinwmqwpxGN0ZKXuCSIpx P05Dd4kaQcfRq5tOFHxBUQ2KU LrbFJnF2CxyX5uKiOgBZGkEXW w D6ZsdYWxDZbxY230SSfqGvJ2E MYouvTxD6LpMDMwcJroAcF2k5 M8Fa4CGCb5IN46LR94bLUqc3N 5 rLZ0Y3CvZYVccimohpwobYK5J GFiPPEvsP72Hj2puIpaEy4jWM AuCJV8FTMhzTIoU5BvqN5gGaQ j QRPjAUMrH1UdcJRaVOadW940E RzjXwV3FDSclaStP8MwQKQbuJ ruNpO9s8P7Be4ZIRUhNQ24BZJ 5 rAA4NG37BP38U8GdRmdfqMPjz +PHRhYmxlIHdpZHRoPScxMD PzYgAgfQolJQ3sMu9cFWFfXIX v aHhfxCWaWrZod7izKNHpHUbsF X1gtNeqR0HfeVX2ABVam7e5Gm 43Q06hB6MizLG+NGPedCV8aHK 0 xC6lCdByTlA0KHmaT092OfRbw DTdSoonw5qba4kebEv2VlM0PB MtvmLnwUutGWK5g2FsAd03N22 s IHdpZHRoPSIxNSUiIHZhbGlnb i7srI5jMo5+OKUvuSU8pGO3bA 4eOoEmWdI4PSyaV911VtVhvAX v Wrvby4vqu3wjbTc4WmBzJSBuv rIdxOvgAFN4s2PhMy41D7RckB osk4MwHep8fm96jAVwq5B8wEJ 9 E3BcJQCnenhgcCCpwXegAC2rM CQfzypiIEJgjG8mZNVmJ8o9Xb PiCnP9RDjkB7ZwrzG0YNNtsUG g NMxeNKF0A92zu5Q2ATUqTHTjB YD8gHT6qW9ecCymdvehlWJzsX yhmfLbuHbnIKhwUOnuK454GPH v dRnfRXKbyK8tWMVnzSKogYozM F0vSTDvezrrYdYASi3LXeknHY 1NQUqDPKu1F8FkZbr1FNQazWg s QM5gxGMgMAqvBi0xeNyakSpgE O9aSAWgwwmcTGQgeC9pEYPcmC UqiCgpET2uJJUpxyyri060EkW x GZL7JADeiSKcQ6XemD6fGrEtS ARbKUHnQ8MczYOwJXsfY518CJ mrYnY1NHZcclUvX1QiOMTjjTb u MjS4z9Z0Nh8sMq9bGV3uSHP8V Q76ND38iWBqh5I3dRY3P8TpMY DxwvaaoanftHD0THKiVFJnuG3 7 kWTzHWytCx1nx7P0k753RNCtY BHhhD50Zi4phPwhMXVvnFQLaT 0iymcar0iwvtjjPxAhRAMzFRl 0 TYh9YTBfyEcvAxYdFAU0MnP6P FG2yYRcoT8hlBuqzhsmcO6kXc c+LiSwDDXehaQ1R2IiBjd4YUJ z rXynRK2rpLWaKLikNe6lsRkiq IojMF8jVJZnfsxxWQAhdO1hSM MhrZXtnWlsBE3qVCEdftuei71 0 QbNzGTS8WHEkoZQxX3BkwT9vZ wWyCMErJNWnX3SzuPTaPZvyQ8 62CHahAgI1JLYhebUhS6FdIAA s gQzhAtK0e3D4Hu0ZHJuoBK60J P23rXAlx2T5rPV5U5WbBZXtsw qvichqqEA4SHBiRDNaeA33eHV k UQguPq9qf9I2z205WJQiHMXkh J24Ig7alCwyKUVabFIYaJ5uwx mfu8wrldswWaKyXFAfPZc4JOr 0 LAZkiAplUlLhZDR5EoA2GMB1i TCbrC0ojKwejhfjlE0lUpq+T3 L0zGF1oQKrcDfgjLO+AV93nl4 8 R6YqAwjcYmi6XLPjDMX7zEJ4a Z8dOHBkBJmst7X2vUM3O2Unrz Arbr6qq6bgEMPnNDqgA68rbEW w m1B8AHDfwST1NOZzlHofCyHtz G93Oyc+OQCgdMlph5GwIfoig7 kpk5iieUk5DsCmWSCtbzRiyNk u XIY3s6AqQy23C45aDDkgTLByX KNcFDExNXUtgEyiof0bzO0cZh 8+RYEiiRY2oRH6jA6kQlTaSrY 2 CXwzZ980NgEhoEIvCaquj4fno 4wkdPg0RlRlPKVagaEkhKvyZE Z4z4YiBb92R0FeyZdbg2QgEgq 0 se23sYKso8K8zQD5C2TrDHEmo ykfiFOsyVqyWX6zIPVtxhadEI OrrO5eBYUuL9a3EbClEqE8KCd u R1PvhxS3IKVsaPZsGAOqrUFIt P9levluq1yrbrxhVrUlQMXuMI w4TXt4HHKyiMasEcZsYXM4DaH 2 MJH9cVLkkO1wxXsgnnaiwB9vJ yc+PUl3f6eufAGzYF4oiTP8CZ 74MT49cFBbh3K9sDN0N8PjDDF p pgtsqwzfsWW6OBGdFNNxkF20N l2uiOrpGs0zREWuBFA3UAWupR LiY0LcyF4sQuYbYBMaVFYkU0O l hEEmSTxuI717BDpsWdH3NQArl fOiZ5QdUJNipEqqUcX2z7A0Ck 1TRA92TH26LI08kXOpb8B4dZT 9 R0UbQKIkzfftzpafyXU3REFxA JHsaW05Sr1ibKmtYv2cWGJnNY Q2AFQgzUMnJ7SfpZ0jSjWzBVH w GPUwH4IioCTiJNwrP502UQtrT uN7NECobrZoD2ZqMNMkmVxmPa A4s7V4Kr8WBr51TI27TT87rJL g m1O1zKN3S0RtNWKtxasuctubw BX1RHKrHRFsgC48Wh2wqVruFs 0oZTDsUVM7GSAphVRzR5OcwE4 y DgTuVPFxSYUhA4RubQXaJOqfZ 079NKmlTtE3KHBhihYkB5EfQI KchDhdWrF8z2B1Xe0SLQahmrf 8 S5VuEzwlvDO+RG25USYlWT75u ABnpDVet4booSx1QsKrDYGkVP K1kZmhCJkyu7XzOEJpL06piCA w c2U6 (more content not included)... [facility] Consent for Procedure/Surger yon 12-04-2022 Consent for Procedure/Surgery [id number]#1.00CD: 127 [facility] Consent for Procedure/Surgery [id number]#1.00CD: 127 [facility] Consent to Photographon Consent to Photograph [id number]#1.00CD: 127 [facility] Correspondence - Woundon Correspondence - Wound [id number]#1.00CD: 127 [facility] Correspondence - Wound [id number]#1.00CD: 127 [facility] Correspondence - Wound [id number]#1.00CD: 127 [facility] HIPAA Forms Officeon 023 HIPAA Forms Office [id number]#1.00CD: 127 [facility] Nursing Assessment - Woundon 12-04-2022 Nursing Assessment - Wound [id number]#1.00CD:[address] [facility] Physician Orderon 12-04-2022 Physician Order [id number]#1.00CD:[address] [facility] Procedure - Woundon 12-04-19 Procedure - Wound [id number]#1.00CD:[address] [facility] Progress Note - Woundon Progress Note - Wound [id number]#1.00CD:[address] [facility] Consent for Treatmenton Consent for Treatment [id number]#1.00CD:[address] [facility] Multi-Wound Charton 12-03-19 Multi-Wound Chart [id number]#1.00CD:[address] [facility] Correspondence - Woundon Correspondence - Wound [id number]#1.00CD:[address] [facility] Progress Noteson 07-20-2022 [employer] Authentication Interface Message Text EMERGENCY TRIAGE, TREAT AND TRANSPORT (ET3) DOCUMENTATION OF TELEHEALTH VISIT Date / Time: 07/18/2022 / 0 Name: Yousif Aguilar : 1945 SSN: [id number] EMS Agency: [facility] [] Verbal consent obtained [...] Completed by: Wilfrid Haley MD Normal [facility] Coding Summary.on 02-19-2019 Coding Summary. CODING DATE: 019 [place] STATUS: Home (Routine DC) PAYOR: Medicare APC [...] elsewhere classified E78.00 Pure hypercholesterolemia, unspecified Z79.01 [facility] (current) use of anticoagulants Z86.718 Personal history [...] Date Saved: 02/19/2019 01:52 pm Normal [facility] CNOVon 09-03-2017 CNOV Office Visit (VASSFT) JEF AGUILAR Jimbo ([id number]) 1945 MDate Time Provider Brtxrgnjen06/4/17 10:00 AM NEO ROCHA During your visit today, we recorded the following information about you: Pulse Blood pressure Weight 73/minute 142/72 142.9 kgNeo Rocha MD 09/03/2017 10:08 AM [facility] Rosie Cantu Department of Cardiovascular MedicineOUTPATIENT VISIT DATE September 03, 2017OUTPATIENT VISIT TYPEESTABLISHEDPRIMARY CARE PHYSICIAN:Abbie Gtz III DO257 PAULO SALGUERO [address] [place] [address] 15764Xtdoi: [phone]: [phone] PHYSICIANAbbie Gtz III, DO257 Paulo Salguero 1[facility] [id number] COMPLAINT:No chief complaint on file.HISTORY OF PRESENT [...] PE and DVT, 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 CT Chest +[id number] DUS LE +Rt femoral and popliteal [id number] DUS LE +Lt popliteal DVTPAST MEDICAL HISTORYDiagnosis [...] kg (315 lb) SpO2 94% BMI 43.93 kg/n1Endvkof appearance: alert and cooperative individual, in no [...] with compression, skin moisturizer, leg elevation.Neo Rocha, RODNEYeferring Provider: ABBIE GTZ III [[id number]]Allergies As of Date: 09/03/2017 Noted Allergy ReactionSHELLFISH [...] to improve.Follow-up and Disposition History RecordedEncounter Number: [id number] Status:Closed by NEO ROCHA MD on 09/03/17 Normal [facility] PROGRESSon 09-03-2017 PROGRESS HNO ID: [id number] thor: Neo Godinez: (none)Author Type: PhysicianType: Progress NotesFiled: 09/03/2017 10:08 AMNote Text:[facility] Vascular InstituteRobnew mexico behavioral [facility] [place] and Rosie Cantu Department of Cardiovascular MedicineOUTPATIENT VISIT DATE September 03, 2017OUTPATIENT VISIT TYPEESTABLISHEDPRIMARY CARE PHYSICIAN:Abbie Gtz III, DO257 [facility] AV[facility] C JOSE M [address] [place] [id number]: [phone]: [phone] PHYSICIANAbbie Gtz III, DO257 [address] Jose M [facility] [id number] COMPLAINT:No chief complaint on file.HISTORY OF PRESENT [...] PE and DVT, 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 CT Chest +[id number] DUS LE +Rt femoral and popliteal [id number] DUS LE +Lt popliteal DVTPAST MEDICAL HISTORYDiagnosis [...] kg (315 lb) SpO2 94% BMI 43.93 kg/y7Lzgcorw appearance: alert and cooperative individual, in no [...] skin moisturizer, leg elevation.Neo Rocha MD Normal [facility] Vital Signs Date Time Vital Sign Value Performing Clinician Facility 10-28-2023 17:16-0500 Heart rate 69 /min Theresa Villalpando [facility] 10-28-2023 17:16-0500 SaO2% (BldA) [Mass fraction] 92 % Theresa Pocos [facility] 10-28-2023 17:16-0500 Diastolic blood pressure 77 mm[Hg] Theresa Pocos [facility] 10-28-2023 17:16-0500 Mean blood pressure 100 mm[Hg] Theresa Pocos [facility] 10-28-2023 17:16-0500 Systolic blood pressure 145 mm[Hg] Theresa Pocos [facility] 10-28-2023 17:16-0500 Respiratory rate 16 /min Theresa Pocos [facility] 10-28-2023 16:09-0500 Heart rate 59 /min Theresa Pocos [facility] 10-28-2023 16:09-0500 SaO2% (BldA) [Mass fraction] 95 % Theresa Pocos [facility] 10-28-2023 16:09-0500 Diastolic blood pressure 82 mm[Hg] Theresa Pocos [facility] 10-28-2023 16:09-0500 Mean blood pressure 95 mm[Hg] Theresa Pocos [facility] 10-28-2023 16:09-0500 Systolic blood pressure 121 mm[Hg] Theresa Pocos [facility] 10-28-2023 16:08-0500 Respiratory rate 16 /min Theresa Pocos [facility] 10-28-2023 15:58-0500 Blood Pressure Location Theresa Pocos [facility] 10-28-2023 15:58-0500 Body temperature 96.98 [degF] Theresa Pocos [facility] 10-28-2023 15:58-0500 Diastolic blood pressure 68 mm[Hg] Theresa Pocos [facility] 10-28-2023 15:58-0500 Heart rate 64 /min Theresa Pocos [facility] 10-28-2023 15:58-0500 Mean blood pressure 88 mm[Hg] Theresa Pocos [facility] 10-28-2023 15:58-0500 Respiratory rate 18 /min Theresa Pocos [facility] 10-28-2023 15:58-0500 SaO2% (BldA) [Mass fraction] 96 % Theresa Pocos [facility] 10-28-2023 15:58-0500 Systolic blood pressure 127 mm[Hg] Theresa Pocos [facility] 10-28-2023 15:46-0500 Blood Pressure Location Theresa Pocos [facility] 10-28-2023 15:46-0500 Mean blood pressure 86 mm[Hg] Theresa Pocos [facility] 10-28-2023 15:46-0500 Respiratory rate 14 /min Theresa Pocos [facility] 10-28-2023 15:41-0500 Blood Pressure Location Theresa Pocos [facility] 10-28-2023 15:41-0500 Mean blood pressure 95 mm[Hg] Theresa Pocos [facility] 10-28-2023 15:41-0500 Respiratory rate 18 /min Theresa Pocos [facility] 10-28-2023 15:31-0500 Body temperature 96.98 [degF] Theresa Pocos [facility] 10-28-2023 11:04-0500 Heart rate 80 /min Theresa Pocos [facility] 10-28-2023 11:02-0500 Respiratory rate 20 /min Theresa Pocos [facility] 10-28-2023 11:02-0500 Body temperature 97.7 [degF] Theresa Pocos [facility] 10-28-2023 11:02-0500 Mean blood pressure 104 mm[Hg] Theresa Pocos [facility] 10-22-2023 12:34-0500 Heart rate 80 /min Theresa Pocos [facility] 10-22-2023 12:34-0500 SaO2% (BldA) [Mass fraction] 94 % Theresa Pocos [facility] 10-22-2023 12:34-0500 Diastolic blood pressure 65 mm[Hg] Theresa Pocos [facility] 10-22-2023 12:34-0500 Mean blood pressure 86 mm[Hg] Theresa Pocos [facility] 10-22-2023 12:34-0500 Systolic blood pressure 130 mm[Hg] Theresa Pocos [facility] 10-22-2023 12:34-0500 Body temperature 97.7 [degF] Theresa Pocos [facility] 10-22-2023 12:34-0500 Respiratory rate 18 /min Theresa Pocos [facility] 10-17-2023 22:14-0500 Diastolic blood pressure 94 mm[Hg] Daniellen Dokken [facility] 10-17-2023 22:14-0500 Heart rate 82 /min Chantelylinn Dokken [facility] 10-17-2023 22:14-0500 Mean blood pressure 121 mm[Hg] Kaylinn Dokken [facility] 10-17-2023 22:14-0500 Respiratory rate 18 /min Kaylinn Dokken [facility] 10-17-2023 22:14-0500 SaO2% (BldA) [Mass fraction] 96 % Kaylinn Dokken [facility] 10-17-2023 22:14-0500 Systolic blood pressure 174 mm[Hg] Kaylinn Dokken [facility] 10-17-2023 21:29-0500 Body temperature 97.7 [degF] Kaylinn Dokken [facility] 10-17-2023 21:29-0500 Diastolic blood pressure 75 mm[Hg] Kaylinn Dokken [facility] 10-17-2023 21:29-0500 Heart rate 80 /min Kaylinn Dokken [facility] 10-17-2023 21:29-0500 Respiratory rate 18 /min Kaylinn Dokken [facility] 10-17-2023 21:29-0500 SaO2% (BldA) [Mass fraction] 98 % Kaylinn Dokken [facility] 10-17-2023 21:29-0500 Systolic blood pressure 162 mm[Hg] Kaylinn Dokken [facility] 10-17-2023 21:14-0500 Body temperature 97.7 [degF] Kaylinn Dokken [facility] 10-17-2023 21:14-0500 Diastolic blood pressure 78 mm[Hg] Kaylinn Dokken [facility] 10-17-2023 21:14-0500 Heart rate 83 /min Bryce Funk [facility] 10-17-2023 21:14-0500 Respiratory rate 18 /min Bryce Funk [facility] 10-17-2023 21:14-0500 SaO2% (BldA) [Mass fraction] 99 % Bryce Funk [facility] 10-17-2023 21:14-0500 Systolic blood pressure 158 mm[Hg] Bryce Funk [facility] 02-17-2023 11:00-0400 Body height 177.8 cm Perlita Hintonbrenda Other [employer] Other 02-17-2023 11:00-0400 Body mass index (BMI) [Ratio] 38.31 kg/m2 Perlita Hintonbrenda Other [employer] Other 02-17-2023 11:00-0400 Body temperature 97.8 [degF] Perlita Hintonbrenda Other [employer] Other 02-17-2023 11:00-0400 Body weight 121.11 kg Perlita Hintonbrenda Other [employer] Other 02-17-2023 11:00-0400 Diastolic blood pressure 787 mm[Hg] Perlita Reno Other [employer] Other 02-17-2023 11:00-0400 SaO2% (BldA) [Mass fraction] 97 % Perlita Rutbrenda Other [employer] Other 02-17-2023 11:00-0400 Systolic blood pressure 130 mm[Hg] Perlita Reno Other [facility] [employer] Other 07-18-2022 14:30-0400 Diastolic blood pressure 65 mm[Hg] [employer] [facility] 07-18-2022 14:30-0400 Heart rate 83 /min [employer] [facility] 07-18-2022 14:30-0400 Respiratory rate 18 /min [employer] [facility] 07-18-2022 14:30-0400 Systolic blood pressure 117 mm[Hg] [facility] 07-05-2022 13:39-0400 Diastolic blood pressure 67 mm[Hg] [facility] 07-05-2022 13:39-0400 Heart rate 71 /min [facility] 07-05-2022 13:39-0400 Mean blood pressure 88 mm[Hg] [facility] 07-05-2022 13:39-0400 Respiratory rate 18 /min [facility] 07-05-2022 13:39-0400 SaO2% (BldA) [Mass fraction] 99 % [facility] 07-05-2022 13:39-0400 Systolic blood pressure 130 mm[Hg] [facility] 07-05-2022 13:00-0400 Diastolic blood pressure 66 mm[Hg] [facility] 07-05-2022 13:00-0400 Heart rate 69 /min [facility] 07-05-2022 13:00-0400 Mean blood pressure 89 mm[Hg] [facility] 07-05-2022 13:00-0400 SaO2% (BldA) [Mass fraction] 97 % [facility] 07-05-2022 13:00-0400 Systolic blood pressure 135 mm[Hg] [facility] 07-05-2022 12:30-0400 Diastolic blood pressure 63 mm[Hg] [facility] 07-05-2022 12:30-0400 Heart rate 72 /min [facility] 07-05-2022 12:30-0400 Mean blood pressure 84 mm[Hg] [facility] 07-05-2022 12:30-0400 Respiratory rate 18 /min [facility] 07-05-2022 12:30-0400 SaO2% (BldA) [Mass fraction] 93 % [facility] 07-05-2022 12:30-0400 Systolic blood pressure 126 mm[Hg] [facility] 07-05-2022 12:05-0400 Heart rate 76 /min [facility] 07-05-2022 11:50-0400 Body temperature 98.24 [degF] [facility] 07-05-2022 11:50-0400 Heart rate 81 /min [facility] 03-21-2022 08:18-0400 Blood Pressure Location Mitalirachel Zhuz [facility] 03-21-2022 08:18-0400 Body temperature 97.34 [degF] Mitali Carine [facility] 03-21-2022 08:18-0400 Diastolic blood pressure 74 mm[Hg] Mitali Carine [facility] 03-21-2022 08:18-0400 Heart rate 78 /min [facility] [facility] 03-21-2022 08:18-0400 SaO2% (BldA) [Mass fraction] 96 % Mitali Hawk [facility] 03-21-2022 08:18-0400 Systolic blood pressure 122 mm[Hg] Mitali Hawk [facility] Encounters Encounter Date Encounter Type Care Provider Facility Start: 12-22-2023 End: 12-22-2023 ambulatory ADDI POCOS Not Available Start: 11-28-2023 End: 11-28-2023 ambulatory ADDI POCOS Not Available Start: 11-10-2023 End: 11-10-2023 ambulatory ADDI POCOS Not Available Start: 10-28-2023 End: 10-28-2023 ambulatory Addi Pocos [place] Start: 10-28-2023 End: 10-28-2023 Admission to same day surgery center Addi Pocos [facility] Start: 10-27-2023 End: 10-28-2023 ambulatory Abbie Gtz [place] Start: 10-27-2023 End: 10-27-2023 Patient encounter procedure AbbieTre Gtz III [facility] Start: 10-22-2023 End: 10-23-2023 ambulatory Addi Pocos [place] Start: 10-22-2023 End: 10-22-2023 Patient encounter procedure Addi Pocos [facility] Start: 10-20-2023 End: 10-20-2023 ambulatory ADDI POCOS Not Available Start: 10-17-2023 End: 10-18-2023 Emergency department patient visit Bryce Funk [place] Start: 10-17-2023 End: 10-17-2023 Emergency department patient visit Bryce Funk [facility] Start: 08-05-2023 End: 08-06-2023 ambulatory Facundo D Dolce [place] Start: 07-29-2023 End: 07-30-2023 ambulatory Facundo D Dolce [place] Start: 07-29-2023 End: 07-29-2023 Patient encounter procedure Facundo Hoffman [facility] Start: 07-22-2023 End: 07-23-2023 ambulatory Facundo D Dolce [place] Start: 07-14-2023 End: 07-15-2023 ambulatory Facundo D Dolce Facility[place] Start: 07-14-2023 End: 07-15-2023 Patient encounter procedure Facundo Tima Hayjames [facility] Start: 07-08-2023 End: 07-09-2023 ambulatory Facundo D Dolce [place] Start: 07-08-2023 End: 07-08-2023 Patient encounter procedure Facundo D Qian [facility] Start: 06-30-2023 End: 07-01-2023 ambulatory Facundo D Dolce [place] Start: 06-30-2023 End: 06-30-2023 Patient encounter procedure Facundo Hoffman [facility] Start: 06-24-2023 End: 06-25-2023 ambulatory Facundo D Dolce [place] Start: 06-17-2023 End: 06-18-2023 ambulatory Facundo D Dolce Facility[place] Start: 06-17-2023 End: 06-17-2023 Patient encounter procedure Facundo D Qian [facility] Start: 06-10-2023 End: 06-11-2023 ambulatory Stephenarturo Hoffman [place] Start: 06-10-2023 End: 06-10-2023 Patient encounter procedure Stephen R Bhartice [facility] Start: 06-02-2023 End: 06-03-2023 ambulatory Facundo Hoffman [place] Start: 06-02-2023 End: 06-03-2023 Pre-admission assessment Facundo Hoffman [facility] Start: 05-27-2023 End: 05-28-2023 ambulatory Stephen R Bhartice [place] Start: 05-27-2023 End: 05-27-2023 Patient encounter procedure Stephen R Bhartijames [facility] Start: 05-20-2023 End: 05-21-2023 ambulatory Facundo Hoffman [place] Start: 05-20-2023 End: 05-20-2023 Patient encounter procedure Facundo Hoffman [facility] Start: 05-15-2023 End: 05-16-2023 ambulatory Facundo Hoffman [place] Start: 05-15-2023 End: 05-15-2023 Patient encounter procedure Facundo Hoffman [facility] Start: 05-06-2023 End: 05-07-2023 ambulatory Facundo Hoffman [place] Start: 05-06-2023 End: 05-06-2023 Patient encounter procedure Facundo Hoffman [facility] Start: 04-23-[address] FACUNDO HOFFMAN Facility: Start: 04-22-2023 End: 04-23-2023 ambulatory Facundo Hoffman [place] Start: 04-15-2023 End: 04-16-2023 ambulatory Facundo Hoffman Facility[place] Start: 04-08-2023 End: 04-09-2023 ambulatory Facundo Hoffman Facility[place] Start: 04-08-2023 End: 04-08-2023 Patient encounter procedure Facundo Hoffamn [facility] Start: 04-02-2023 End: 04-03-2023 ambulatory Stephen R Bhartice [place] Start: 04-02-2023 End: 04-02-2023 Patient encounter procedure Stephen Hoffman [facility] Start: 03-25-2023 End: 03-26-2023 ambulatory Facundo Tima Hoffman [place] Start: 03-17-2023 End: 03-19-2023 ambulatory Facundo Alfred Dolce Facility[place] Start: 03-11-2023 End: 03-12-2023 ambulatory Facundo Alfred Doljames Facility[place] Start: 03-11-2023 End: 03-11-2023 Patient encounter procedure Facundo Hayjames [facility] Start: 03-04-2023 End: 03-05-2023 ambulatory Facundo Hayjames [place] Start: 03-04-2023 End: 03-04-2023 Patient encounter procedure Facundo Hayjames [facility] Start: 02-27-2023 End: 02-27-2023 ambulatory Perlita Reno Facility:[facility] Start: 02-27-2023 End: 02-27-2023 ambulatory DO Abbie R Gtz III Work Phone: [facility] Work Phone: Start: 02-27-2023 End: 02-27-2023 Patient encounter procedure DO Abbie Gtz III Work Phone: [facility] [place] Work Phone: Start: 02-24-2023 End: 02-25-2023 ambulatory Facundo Hayjames Facility[place] Start: 02-24-2023 End: 02-24-2023 Patient encounter procedure Facundo Alfred Bhartijames [facility] Start: 02-18-2023 End: 02-19-2023 ambulatory Facundo Alfred Qian [place] Start: 02-18-2023 End: 02-18-2023 Patient encounter procedure Facundo Hayjames [facility] Start: 02-17-2023 End: 02-17-2023 ambulatory Perlita Reno Other [facility] [employer] Other Start: 02-17-2023 [facility] visit new patient Perlita Ramesh nasir [facility] Start: 02-11-2023 End: 02-12-2023 ambulatory Facundo Hoffman Facility[place] Start: 02-04-2023 End: 02-05-2023 ambulatory Facundo Hoffman Facility[place] Start: 02-04-2023 End: 02-04-2023 Patient encounter procedure Facundo Hoffman [facility] Start: 01-28-2023 End: 01-29-2023 ambulatory Facundo Hoffman Facility[place] Start: 01-28-2023 End: 01-29-2023 ambulatory Facundo Hoffman [place] Start: 01-28-2023 End: 01-28-2023 Patient encounter procedure Facundo Hoffman [facility] Start: 01-21-2023 End: 01-22-2023 ambulatory Facundo Hoffman Facility[place] Start: 01-21-2023 End: 01-21-2023 Patient encounter procedure Facundo Hoffman [facility] Start: 01-15-2023 End: 01-22-2023 Pre-admission assessment Facundo Hoffman [facility] Start: 01-14-2023 End: 01-15-2023 ambulatory Facundo Hoffman [place] Start: 01-14-2023 End: 01-14-2023 Patient encounter procedure Facundo Hoffman [facility] Start: 01-07-2023 End: 01-08-2023 ambulatory Facundo Hoffman Facility[place] Start: 01-07-2023 End: 01-07-2023 Patient encounter procedure Facundo Hoffman [facility] Start: 12-31-2022 End: 01-01-2023 ambulatory Facundo Hoffman Facility[place] Start: 12-31-2022 End: 12-31-2022 Patient encounter procedure Facundo Hoffman [facility] Start: 12-27-2022 End: 12-28-2022 ambulatory Facundo Hoffman Facility[place] Start: 12-27-2022 End: 12-27-2022 Patient encounter procedure Facundo Hoffman [facility] Start: 12-24-2022 End: 12-25-2022 ambulatory Facundo Hoffman [place] Start: 12-24-2022 End: 12-24-2022 Patient encounter procedure Facundo Hoffman [facility] Start: 12-17-2022 End: 12-18-2022 ambulatory Facundo Hoffman Facility[place] Start: 12-10-2022 End: 12-11-2022 ambulatory Facundo Hoffman [place] Start: 12-10-2022 End: 12-10-2022 Patient encounter procedure Facundo Hoffman [facility] Start: 12-03-2022 End: 12-04-2022 ambulatory Facundo Hoffman [place] Start: 12-03-2022 End: 12-03-2022 Patient encounter procedure Facundo Hoffman [facility] Start: 10-23-2022 End: 10-31-2022 ambulatory UNKNOWN PROVIDER Facility:[facility] Start: 07-20-2022 End: 07-22-2022 ambulatory UNKNOWN PROVIDER Facility:[facility] Start: 07-18-2022 End: 07-18-2022 ambulatory [facility] Emer[facility] y Triage, Treat and Transport Start: 07-18-2022 End: 07-18-2022 Emergency department patient visit [facility] Emergency Triage, Treat and Transport Comment on above: Arrived Start: 07-05-2022 End: 07-05-2022 Emergency department patient visit Itz Rachel Leonidas [facility] Start: 03-21-2022 End: 03-21-2022 Patient encounter procedure Mitali Hawk [facility] Start: 02-23-2019 Patient encounter procedure Zakia Buck Facility[place] Start: 01-01-2019 End: 01-02-2019 Patient encounter procedure Stephen CrossNelly Qian Facility[place] Start: 09-03-2017 End: 09-04-2017 Ambulatory NEO ROCHA [facility] Procedures Date Procedure Procedure Detail Performing Clinician Start: 10-28-2023 Open reduction of fr acture with internal fixation Theresa Villalpando Start: 02-27-2023 Duplex scan of lower limb veins DO Abbie Gtz III Work Phone: Start: 03-04-2022 Colonoscopy [facility] Start: 03-04-2022 Colonoscopy Mitali Shon singletary Start: 07-01-2016 EVLT RASV X [address] einmetz Comment on above: DR. ROCHA Start: [...] t blood in single stool specimen [facility] Start: 1982 [facility] Start: [facility] Hepatitis C screening Hepatitis C An tibody [facility] Start: 1965 Tetanus + diphtheria + acellular pertussis vaccine (product) Tdap Booster [facility] Immunizations Immunization Date Immunization Notes Care Provider Hanny macias 08-31-2021 influenza virus vaccine, unspecified formulation Mitali Hawk [facility] 02-02-2021 zoster vaccine recombinant [facility] 09-05-2020 influenza, high dose seasonal, preservative-free [facility] 09-05-2020 influenza virus vaccine, unspecified formulation [facility] 10-15-2019 influenza, high dose seasonal, preservative-free [facility] 09-10-2018 influenza, injectabl e, quadrivalent, preservative free [facility] 09-29-2017 influenza, injectabl e, quadrivalent, preservative free [facility] 09-25-2016 influenza, injectabl e, quadrivalent, preservative free [facility] 03-28-2016 pneumococcal conjuga te vaccine, 13 valent [facility] 09-21-2015 influenza, seasonal, injectable Et[facility] 12-27-2013 pneumococcal conjuga te vaccine, 13 valent Et3 [facility] Payers Date Payer Category Payer Self-pay 2022 Medicaid [id number] 2021 Unknown [id number] 2021 Unknown 2021 Medicare HU[employer]NA MEDICARE HUMANA CHOICE PPO/HMO [id number] 2021-Present [employer] CLAIMS OFFICE [address] [address] [place] [address] PPO [id number] 2018 Unknown [id number] 1947 Unknown [id number] ..840.1.566650.3.579.2.727 1947 Unknown [id number] 2.16.840.1.833174.3.579.2.727 1947 Unknown [id number] 2.16.840.1.323531.3.579.2.732 1947 Unknown [id number] 2.16.840.1.625630.3.579.2.732 1947 Unknown [id number] 2.16.840.1.030775.3.579.2.593 1947 Unknown [id number] 2.16.840.1.373154.3.579.2.727 1947 Unknown [id number] 2.16.840.1.721551.3.579.272 1947 Unknown [id number] 2.16.840.1.050420.3.579.272 1947 Unknown [id number] 2.16.840.1.998536.3.579.272 1947 Unknown [id number] 2.16.840.1.773765.3.579.272 1947 Unknown [id number] 2.16.840.1.868031.3.579.272 1947 Unknown [id number] 2.16.840.1.073123.3.579.2.72 1947 Unknown [id number] 2.16.840.1.999058.3.579.272 1947 Unknown [id number] 2.16.840.1.633977.3.579.2.72 1947 Unknown [id number] 2.16.840.1.607697.3.579.272 1947 Unknown [id number] 2.16.840.1.701127.3.579.2.72 1947 Unknown [id number] 2.16.840.1.891686.3.579.2. 1947 Unknown [id number] 2.16.840.1.758577.3.579.2 1947 Unknown [id number] 2.16.840.1.377527.3.579.2. 1947 Unknown [id number] 2.16.840.1.682965.3.579.2 1947 Unknown [id number] 2.16.840.1.710422.3.579.2 1947 Unknown [id number] 2.16.840.1.107001.3.579. 1947 Unknown [id number] 2.16.840.1.013739.3.579.2 1947 Unknown [id number] 2.16.840.1.200556.3.579.2 1947 Unknown [id number] 2.16.840.1.765866.3.579.2 1947 Unknown [id number] 2.16.840.1.156772.3.579.2 1947 Unknown [id number] 2.16.840.1.944021.3.579.2 1947 Unknown [id number] 2.16.840.1.525299.3.579.2 1947 Unknown [id number] 2.16.840.1.512235.3.579.2 1947 Unknown [id number] 2.16.840.1.263337.3.579.2 1947 Unknown [id number] 2.16.840.1.331455.3.579.2 1947 Unknown [id number] 2.16.840.1.624991.3.579.2 1947 Unknown [id number] 2.16.840.1.037763.3.579.2 1947 Unknown [id number] 2.16.840.1.168867.3.579.2 1947 Unknown [id number] 2.16.840.1.671380.3.579.2 1947 Unknown [id number] 2.16.840.1.492776.3.579.2 1947 Unknown [id number] 2.16.840.1.557200.3.579.2 1947 Unknown [id number] 2.16.840.1.897137.3.579.2 1947 Unknown [id number] 2.16840.1.875233.3.579.2 1947 Unknown [id number] 2.16.840.1.078300.3.579.2 1947 Unknown [id number] 2.16.840.1.157616.3.579.2 1947 Unknown [id number] 2.16.840.1.130934.3.579.2 1947 Unknown [id number] 2.16840.1.190472.3.579.2 1947 Unknown [id number] 2.16.840.1.958179.3.579.2 1947 Unknown [id number] 2.16.840.1.254870.3.579.2 1947 Unknown [id number] 2.16.840.1.785386.3.579.2 1947 Unknown [id number] 2.16.840.1.100005.3.579.2.9 1947 Unknown [id number] 2.16.840.1.437444.3.579.2.1259 1947 Unknown [id number] 2.16.840.1.871335.3.579.2.1259 1947 Unknown [id number] 2.16.840.1.821486.3.579.2.1259 1947 Unknown [id number] 2.16.840.1.266068.3.579.2.1259 1947 Unknown [id number] 2.16.840.1.147208.3.579.2.1259 1947 Unknown [id number] 2.16.840.1.636774.3.579.2.1259 Unknown Stacey NOLEN/SARAH [id number] Unknown [id number] 2.16.840.1.312164.3.579.2.531 Social History Date Type Detail Facility Start: 03-21-2022 Tobacco smoking status Ex-smoker (finding) [facility] Tobacco smoking status Never [facility] Sex Assigned At Male [facility] Tobacco smoking status MT[facility] Tobacco smoking consumption unknown [facility] Start: 1945 Sex Assigned At Not on file [facility] Start: 1945 Sex Assigned At Male [facility] Medical Equipment Procedure Code Equipment Code Equipment Origin al Text Equipment Identifier Dates ELBOW FRACTURE O RIF Theresa Villalpando DO 10/28/23 Unknown Elbow R FDA Start: 10-28-2023 ELBOW FRACTURE O RIF Camila DOTheresa 10/28/23 Unknown Elbow R FDA Start: 10-28-2023 Functional Status Date Assessment Result Facility 10-22-2023 Functional Status No [facility] 10-17-2023 Functional Status N/A [facility] 07-05-2022 Functional Status N/A [facility] Clinical Notes 03-21-2022 to 10-28-2023 Note Date & Type Note Facility 10-28-2023 Hospital Discharg e instructions Patient Education 10/28/2023 16:52:15 Post Op Patient Instructions - FT (Custom) (CUSTOM) 10/27/2023 07:36:07 [facility] - Home Care Instructions (Custom) [place], [place] [facility] OUTPATIENT SURGERY Home Care [...] not drive. Theresa Villalpando, DO [facility] [address] [place] [address] [id number] Reviewed: 08 Follow Up Care 10/20/2023 14:32:22 With:Theresa Villalpando Address: [address] [place] [phone] Business (1) When:11/10/2023 14:30:00 Comments:Appointment has already been scheduled [facility] 10-27-2023 Note [id number] [facility] 10-18-2023 Hospital Discharg e instructions Patient Education [...] Follow these instructions at home: Medicines Take mtbf-iqp-fszmiem and prescription medicines only as told by your health care provider. Ask your health care provider if the medicine prescribed to you: ?Requires you to avoid driving or using heavy machinery. ?Can cause constipation. You may need to take actions to prevent or treat constipation, such as: ?Drink enough fluid to keep your urine pale yellow. ?Take xqtb-hvb-rrmcrsk or prescription medicines. ?Eat foods that are [...] provider. Document Revised: 02/14/2022 Document Reviewed: 02/14/2022 [employer] Patient Education 2022 [employer] Follow Up Care 10/17/2023 21:14:35 With:Theresa Villalpando Address: [address] [place], [place] [id number] Business (1) When:10/20/2023 Comments:You can use the pain medication every 6 hours as needed for pain. Please follow-up with your primary care doctor addition to orthopedics for further evaluation management. Please return to the ED for any new or worsening symptoms. With:Abbie Gtz Address: [address] [place] [address] [place] [address] Business (1) When:Within 3 Day(s) [facility] 10-17-2023 Evaluation + Plan note Extrac krystal from: Title:ED Note Author:Bryce Funk DO Date :10/17/23 Olecranon fracture (S52.023A : Displaced fracture of olecranon process without intraarticular extension of unspecified ulna, initial encounter for closed fracture) Orders: acetaminophen-hydrocodone, 1 tab(s), Oral, q6hr for pain for 3 day(s), 10 tab(s), Refill(s) 0, [facility] 1985, 177.8, cm, 10/17/23 21:21:00 EST, Height/Length Dosing, 133.1, kg, 10/17/23 21:21:00 EST, Weight Dosing Sling Apply XR Elbow 3+ Views Right [facility]03-20-2023 Evaluation note* Encounter Date Diagnosis Assessment [...] with this plan, and denies any questions. [facility] [employer] Other 08-20-2022 History of Present illness Narrative* Wilfrid Haley MD - 07/20/2022 8:23 AM EDT Images from the original note were not included. EMERGENCY TRIAGE, TREAT AND TRANSPORT (ET3) DOCUMENTATION OF TELEHEALTH VISIT Date / Time: 07/18/2022 / 1430 Name: Yousif Aguilar : 1945 SSN: [id number] EMS Agency: [facility] [] Verbal consent obtained [...] by: Wilfrid Haley MD documented in this [id number] Hospital Discharge instructions Patient Education 07/05/2022 13:44:46 [...] activities that cause pain. General instructions Take rvud-tut-bpyifnd and prescription medicines only as told by [...] 05/07/2011 Document Revised: 04/03/2020 Document Reviewed: 04/03/2020 [employer] Patient Education 2019 [employer] Follow Up Care 07/05/2022 11:49:47 With:Abbie Gtz Address: [address] [place] [address] [place] [address] Business (1) When:07/08/2022 13:33:40 [facility]08-05-2022 Evaluation + Plan noteExtracted from: Title:ED [...] XR Hip 2-3 Views Right + Pelvis [facility]04-21-2022 Hospital Discharge instructions Patient Education 03/21/2022 [...] 08/13/2005 Document Revised: 03/04/2019 Document Reviewed: 03/04/2019 [employer] Patient Education [employer] Follow Up Care 03/05/2022 13:23:06 With:Mitali Hawk CNP Address: When:1 year only if needed [facility] Evaluation + Plan note No data available for this section [facility] Evaluation + Plan note Future Appointments Appointment Date:12/10/2022 10:00:00 AM Scheduled Provider: [facility] Appointment Type:WC Assessment (FT) Appointment Date:12/17/2022 01:45:00 PM Scheduled Provider:Facundo Hoffman DPM Location[facility] Appointment Type:WC Follow [facility] (FT[facility] Future Appointments Appointment Date:12/17/2022 01:45:00 PM Scheduled Provider:Facundo Hoffman DPM [facility] Appointment Type:WC Follow Up Visit (FT[facility] Future Appointments Appointment Date:12/31/2022 10:30:00 AM Scheduled Provider: Location:[facility] Appointment Type:WC Assessment (FT) Appointment Date:01/07/2023 01:45:00 PM Scheduled Provider:Facundo Hoffman DPM [facility] Appointment Type:WC Follow [facility] (FT[facility] Future Appointments Appointment Date:12/31/2022 01:30:00 PM Scheduled Provider: [facility] Appointment Type:WC Assessment (FT) Appointment Date:01/07/2023 01:45:00 PM Scheduled Provider:Facundo Hoffman DPM [facility] Appointment Type:WC [facility] (FT[facility] Future Appointments Appointment Date:01/07/2023 01:45:00 PM Scheduled Provider:Facundo Hoffman DPM [facility] Appointment Type:WC [facility] (FT[facility] [place] [facility] Future Appointments Appointment Date:01/14/2023 02:30:00 PM Scheduled Provider:Facundo Hoffman DPM [facility] Appointment Type:WC Follow Up Visit (FT) [facility] [place] [facility] Future Appointments Appointment Date:01/21/2023 03:30:00 PM Scheduled Provider:Facundo Hoffman DPM [facility] Appointment Type:WC [facility] (FT[facility] Future Appointments Appointment Date:01/28/2023 03:30:00 PM Scheduled Provider:Facundo Hoffman DPM [facility] Appointment Type:WC Follow Up Visit (FT) Appointment Date:02/11/2023 01:30:00 PM Scheduled Provider:Facundo Hoffman DPM [facility] Appointment Type:WC [facility] (FT[facility] Future Appointments Appointment Date:02/04/2023 01:45:00 PM Scheduled Provider:Facundo Hoffman DPM [facility] Appointment Type:WC Follow Up Visit (FT) Appointment Date:02/11/2023 01:30:00 PM Scheduled Provider:Facundo Hoffman DPM [facility] Appointment Type:WC [facility] (FT[facility] Future Appointments Appointment Date:02/11/2023 01:30:00 PM Scheduled Provider:Facundo Hoffman DPM [facility] Appointment Type:WC [facility]FT[facility] Future Appointments Appointment Date:02/25/2023 11:30:00 AM Scheduled Provider: [facility] Appointment Type:WC Assessment (FT) Appointment Date:03/04/2023 01:15:00 PM Scheduled Provider:Facundo Hoffman DPM [facility] Appointment [facility] Future Appointments Appointment Date:03/04/2023 01:15:00 PM Scheduled Provider:Facundo Hoffman DPM [facility] Appointment Type:WC [facility] Future Appointments Appointment Date:03/11/2023 11:00:00 AM Scheduled Provider: [facility] Appointment Type:WC Assessment (FT) Appointment Date:03/17/2023 01:30:00 PM Scheduled Provider: [facility] Appointment Type:WC Assessment (FT) Appointment Date:03/25/2023 02:00:00 PM Scheduled Provider:Facundo Hoffman DPM [facility] Appointment Type:WC [facility] Future Appointments Appointment Date:03/17/2023 01:30:00 PM Scheduled Provider: [facility] Appointment Type:WC Assessment (FT) Appointment Date:03/25/2023 02:00:00 PM Scheduled Provider:Facundo Hoffman DPM [facility] Appointment Type:WC [facility] Future Appointments Appointment Date:04/08/2023 01:45:00 PM Scheduled Provider:Facundo Hoffman DPM [facility] Appointment Type:WC [facility] Future Appointments Appointment Date:04/15/2023 02:15:00 PM Scheduled Provider:Facundo Hoffman DPM [facility] Appointment Type:WC [facility] Future Appointments Appointment Date:05/15/2023 10:00:00 AM Scheduled Provider: [facility] Appointment Type:WC Assessment (FT) Appointment Date:05/20/2023 01:45:00 PM Scheduled Provider:Facundo Hoffman DPM [facility] Appointment Type:WC [facility] Future Appointments Appointment Date:05/20/2023 03:15:00 PM Scheduled Provider:Facundo Hoffman DPM [facility] Appointment Type:WC [facility] Future Appointments Appointment Date:06/02/2023 08:30:00 AM Scheduled Provider: [facility] Appointment Type:WC Assessment (FT) Appointment Date:06/10/2023 03:00:00 PM Scheduled Provider:Facundo Hoffman DPM [facility] Appointment Type:WC [facility] [place] [facility] Future Appointments Appointment Date:06/10/2023 03:00:00 PM Scheduled Provider:Facundo Hoffman DPM [facility] Appointment Type:WC [facility] Future Appointments Appointment Date:06/24/2023 03:00:00 PM Scheduled Provider:Facundo Hoffman DPM [facility] Appointment Type:WC [facility] Future Appointments Appointment Date:07/08/2023 01:45:00 PM Scheduled Provider:Facundo Hoffman DPM [facility] Appointment Type:WC [facility] Future Appointments Appointment Date:07/14/2023 09:00:00 AM Scheduled Provider: [facility] Appointment Type:WC Assessment (FT) Appointment Date:07/22/2023 02:00:00 PM Scheduled Provider:Facundo Hoffman DPM [facility] Appointment Type:WC [facility] Future Appointments Appointment Date:07/22/2023 02:00:00 PM Scheduled Provider:Facundo Hoffman DPM [facility] Appointment Type:WC [facility] Future Appointments Appointment Date:08/05/2023 02:00:00 PM Scheduled Provider:Facundo Hoffman DPM [facility] Appointment Type:WC [facility] Future Appointments Appointment Date:10/28/2023 02:00:00 PM Scheduled Provider: Location:[facility] Appointment Type:Surgery FT [facility] [place] [facility]* Diagnosis Fall in home, initial encounter- Primary documented [facility] Work Phone: [facility] Narrative - Reported* Type Description Date Medical History high cholesterol Medical History Blood clots Surgical History hand and leg surgery 1974 Surgical History jaw wiring Surgical History elbow surgery Surgical History appendectomy Surgical History wrist surgery right hand Hospitalization History see above [employer] Other Hospital Discharge instructions No data available for this section [facility] No data available for this section [facility] Summary Purpose Family History No Family [...] Recorded Date/ Time Advance Directives No February 20, 023 1:34pm Chief Complaint and Reason for Visit Chief Complaint vv's with ulcers Additional Source Comments (unrecognized sect ion and content) No Status Records FoundNo Status Records FoundNo Status Records FoundNo Status Records FoundNo Status Records FoundNo Status Records FoundNo Status Records Found INFORMATION SOURCE (unrecogn ized section and content) DATE CREATED AUTHOR 05/27/2018 [facility] DATE CREATED AUTHOR AUTHOR'S ORGANIZ ATION 02/25/2019 [facility] [place] DATE CREATED AUTHOR AUTHOR'S ORGANIZ ATION 11/01/2022 [facility] DATE CREATED AUTHOR AUTHOR'S ORGANIZ ATION 03/15/2023 [facility] DATE CREATED AUTHOR AUTHOR'S ORGANIZ ATION 04/09/2023 [facility] DATE CREATED AUTHOR AUTHOR'S ORGANIZ ATION 11/05/2023 Gerardo Son[facility] DATE CREATED AUTHOR AUTHOR'S ORGANIZ ATION 12/22/2023 [facility] EPIC Care Team (unrecognized sect ion and content) Team Status: Active Member Role Status Dates Abbie Gtz III , DO Primary Care Provider Active Team Status: Inactive Member Role Status Dates Abbie Gzt III , DO Primary Care Provider Active JV OrdoñezC Attending Provider Active Reason for Visit (unrecogniz [...] BE BASED ON THE PRIMARY CLINICAL RECORDS. [facility] [employer] [facility]. provides no warranty or guarantee of the accuracy or completeness of information in this document.
== END 2024-02-17 11:08 | disposition home or self-care (01) ==
LOC: VC 11:07
PROVIDERS: PCP Radiology Diagnostic Radiology; Visit Provider Radiology Diagnostic Radiology
DX: I80.01 Phlebitis and thrombophlebitis of superficial vessels of right lower extremity (principal)
CPT/HCPCS: 93971; G0463

== ENCOUNTER 2024-02-25 10:42 | Outpatient (OUT) | payer OTHER, MEDICAID, SELFPAY ==
--- NOTE | 2024-02-25 10:43 | VEIN_ITS ---
[address] [address] Patient Name: YOUSIF NAJERA MRN: [id number] date: 1945 Sex: M Assigned Patient Location: Current Patient Location: Accession/Order Number: [id number] Exam Date: 02/25/2024 10:55 Report Date: 02/25/2024 12:46 At the request of: THERESA DE DIOS Procedure: VC INJ Foam Sclerosant WUS SPINNER CONTINUOUS PROCEDURE: VC INJ Foam Sclerosant WUS SPINNER CONTINUOUS HISTORY: Pain due to varicose veins of bilateral legs I83.813 Pre-operative Diagnosis: CEAP class C6 venous insufficiency with pain, tenderness, edema and incompetent branch saphenous vein(s), chronic venous insufficiency right leg secondary to venous incompetence Post-operative Diagnosis: CEAP class C6 venous insufficiency with pain, tenderness, edema and incompetent branch saphenous vein(s), chronic venous insufficiency right leg secondary to venous incompetence Procedure Performed: 1. Ultrasound-guided microfoam chemical ablation with Varithenaregistered 2. Intraoperative ultrasound guidance Physician: Cali Tanner M.D. Anesthesia: None Indications for Procedure: 78 year old male. Symptoms including dilated bulging veins, swelling, significant skin changes, reoccurring wounds for many years despite conservative medical therapy including medical compression stockings, exercise and analgesics. Prior procedures include endovenous laser ablation and microfoam chemical ablation. Multiple incompetent varicosities of the right leg. Duplex scan showed reflux and enlarged diameters up to 6 mm. The patient underwent informed consent including management options where the complications of infection, bleeding, pain, and skin injury were discussed. Particular attention was spent discussing thrombus extension and deep vein thrombosis as well as the possibility of pulmonary embolus and treatment with oral or injectable blood thinners. Procedure: The patient walked to the procedure room. All applicable staff donned appropriate apparel. A procedure timeout was performed to confirm correct patient, correct extremity, correct procedure, and correct room set-up including presence of all applicable supplies, devices, and drugs. A duplex ultrasound, performed by myself confirmed the location and incompetence of branch saphenous varicosities and their course was marked on the skin together with the dilated tributaries. The extent of treatment of the vein and the associated varicosities was determined through ultrasound mapping. The skin was prepped and then punctured with a butterfly needle and advanced under ultrasound guidance. The Varithenaregistered canister was activated and the canister was primed and purged as required in the instructions for use. Varithenaregistered was drawn into a sterile syringe. Varithenaregistered was slowly administered at 0.5-1.0 cc/second with close observation by ultrasound of its course in the vessels. Total volume utilized was: 15 mL (7 mL into a 5 mm varicosity of the distal anterior lower leg; 8 mL into a 6 mm varicosity proximal anterior lower leg). Following administration of Varithenaregistered the leg was elevated and the patient was asked to repeatedly dorsiflex the ankle to limit flow of Varithenaregistered into perforating veins. Once appropriate spasm had been confirmed in the treated veins, the vascular catheter was removed from the leg and light pressure was applied over the puncture site for hemostasis. The common femoral and deep superficial veins were then evaluated for flow and compressibility prior to dressing placement. The lower extremity was kept elevated at 45 degrees above the horizontal and cording material was applied over the saphenous segments and tributaries to allow for eccentric compression over the target vessels including the targeted saphenous vein(s). A multilayer dressing was applied consisting of foam pads, coban and thigh-high 20-30 mm Hg compression elastic support hose were placed on the patient. The leg was lowered only after compression had been applied and the patient was immediately ambulatory. The patient ambulated 10 minutes under supervision and was without apparent concerns at time of release. Post-care instructions include advising patient to keep post-treatment bandages in place and dry for 48 hours, avoid extended periods of inactivity, avoid heavy exercise for one week, wear compression stockings on the treated leg continuously for two weeks, to walk daily for 10 minutes over the next month. The patient was instructed to take an anti-inflammatory medicine as needed and to follow up for color duplex scan of the Saphenous veins, the treated branch saphenous varicosities, the adjacent deep veins, and additional treatment within 7 days. PERSONNEL: Deandre Lechuga RN Electronically authenticated by: CALI TANNER Date: 02/25/2024 12:46
--- OUTSIDE RECORDS SUMMARY | 2024-02-25 11:05 | XMS_ITS | CCD ---
Author Organization [facility] Care Team Providers Care Yard Operator Name Role Phone NEO ROCHA Unavailable [...] DO Abbie R Primary Care Provider Shadia [employer]-C Perlita Cross Attending Provider Perlita Reno Attending [...] Dolce, Facundo Alfred Attending Unavailable Dolce, Facundo Alrfed Admitting Unavailable POCOS, THERESA Montgomery Attending Unavailable POCOS, THERESA Montgomery Referring Unavailable POCOS, THERESA Montgomery Attending Unavailable POCOS, THERESA Montgomery Referring Unavailable POCOS, THERESA Montgomery Attending Unavailable POCOS, THERESA Montgomery Attending Unavailable POCOS, THERESA Montgomery Referring Unavailable Allergies Allergy Classification Reported Allergen(s) Allergy Type Date of Onset Reaction(s) Facility (20 sources) iodine; Translations: [IODINE] Drug Allergy 6 Unknown (qualifier value) [facility] Repository (20 sources) Penicillins; Translations: [PENICILLINS] Propensity to adverse reactions to drug (disorder) 6 Unknown (qualifier value) [facility] Repository (1 source) SHELLFISH CONTAINING PRODUCTS; Translations: [SHELLFISH CONTAINING PRODUCTS] Propensity to adverse reactions to drug (disorder) 7 AOF [facility] Repository (20 sources) Shellfish; Translations: [shellfish] Propensity to adverse reactions (disorder) Pharyngeal swelling (finding), Difficulty breathing (finding) [facility] Repository (5 sources) Contrast media; Translations: [Contrast Dye] Propensity to adverse reactions Dizziness (finding) [facility] (1 source) Penicillin Drug Allergy rash [place] Other (1 source) Shellfish Drug allergy Unknown [place] Other (1 source) Penicillins; Translations: [penicillins] Drug allergy Unknown (qualifier value) [facility] Comment on above: as a child Medications Current Medications Medication Drug Class(es) Dates Sig (Normalized) Sig (Original) acetaminophen 325 mg / HYDROcodone bitartrate 5 mg oral tablet (2 sources) Opioid Agonist Start: 10-28-2023 Bronston 325 mg-5 mg oral tablet See Instructions, for pain, 40 tab(s), Refill(s) 0, 1 - 2 po q4-6h prn pain Dx: S52.031D Duration: 7 days, [facility]pharmacy #6173, 177, cm, 10/22/23 12:25:00 EST, Height/Length Dosing, 132.5, kg, 10/22/23 12:25:00 EST, Weight Dosing Start Date: 10/28/23 Status: Ordered Start: 10-17-2023 End: 10-20-2023 take 1 tablet by mouth every six hours for pain Bronston 325 mg-5 mg oral tablet 1 tab(s), Oral, q6hr for pain for 3 day(s), 10 tab(s), Refill(s) 0, [facility], 177.8, cm, 10/17/23 21:21:00 [...] constipation, # 40 cap(s), Refills(s) 0, Pharmacy: [facility]/pharmacy #6173, 177, cm, 10/22/23 12:25:00 EST, Height/Length [...] Facility IntraOperative Documentson 1 01-04-2023 IntraOperative Documents [id number]#1.00TIFF [facility] Progress Note-Physicianon Progress Note-Physician Patient: YOUSIF AGUILAR Age: 77 years Sex: Male : 1945 Associated Diagnoses: None Author: MD Rudd Ahmad F Postoperative Information Postoperative disposition: Postoperative disposition: To PACU. Optimetrix number: Optimetrix number [id number]. Anesthetic utilized: General. Health Status Allergies: Allergic [...] meets criteria ( To home ). Normal [facility] Comment on above: Result Comment: Elec tronically [...] constipation, # 40 cap(s), Refills(s) 0, Pharmacy: [facility]/pharmacy #6173, 177, cm, 10/22/23 12:25:00 EST, Height/Length Dosing, 132.5, kg, 10/22/23 12:25:00 EST, Weight Dosing Bronston 325 mg-5 mg oral tablet: See Instructions, for pain, 40 tab(s), Refill(s) 0, 1 - 2 po q4-6h prn pain Dx: S52.031D Duration: 7 days, [facility]/pharmacy #6173, 177, cm, 10/22/23 12:25:00 EST, Height/Length [...] Problems High blood pressure / SNOMED CT 4518792968 / Confirmed Hypercholesterolemia / ICD-9-CM 272.0 / Confirmed Lymphedema / SNOMED CT 42555383 / Confirmed 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 / SNOMED CT 784454447 / Confirmed History of colon polyps / SNOMED CT 3155081679 / Confirmed Colon polyp / SNOMED CT 520100174 / Confirmed Diverticulosis / SNOMED CT 8799537144 / Confirmed Hemorrhoids / SNOMED CT 230727340 / Confirmed Extreme obesity / SNOMED CT 76T07923-2NE9-28X0-D121-7 [id number] / Possible Resolved: DVT / SNOMED CT 838950928 Resolved: PE - Pulmonary embolism / SNOMED CT 5680911072 Resolved: Stasis dermatitis co-occurrent with venous ulcer of right lower extremity due to chronic peripheral venous hypertension / SNOMED CT 823911874421294 Resolved: Stasis dermatitis of left lower extremity due to peripheral venous hypertension / SNOMED CT 283008826019616 Resolved: Stasis dermatitis of right lower extremity due to peripheral venous hypertension / SNOMED CT 043299261777968 Resolved: Stasis dermatitis and venous ulcer of left lower extremity due to chronic peripheral venous hypertension / SNOMED CT 666216570259662 Histories Past Medical History: Active Hypercholesterolemia (272.0) Lymphedema (51771649) Resolved PE - Pulmonary embolism (5401350645): Onset on 12/01/2005 at 60 years. Resolved. DVT (921327659): Resolved. Stasis dermatitis co-occurrent with venous ulcer of right lower extremity due to chronic peripheral venous hypertension (501706079941536): Resolved. Stasis dermatitis of left lower extremity due to peripheral venous hypertension (723226682538672): Resolved. Stasis dermatitis of right lower extremity due to peripheral venous hypertension (227597018528824): Resolved. Stasis dermatitis and venous ulcer of left lower extremity due to chronic peripheral venous hypertension (264038244214342): Resolved. Family History: Hyperlipidemia Mother Heart disease Father Non Hodgkin's lymphoma Mother Procedure history: ORIF of Right Elbow (884946139) on 10/28/2023 at 77 Years. Colonoscopy (870428543) on 03/04/2022 at 76 Years. EVLT RLSV [...] 34 Years. Comments: 05/14/2019 13:08 Anny Candelaria 1979' left knee surgery, due to injury in 1973 at 28 Years. jaw surgery due to fracture in 1966 at 21 Years. Appendectomy (800560514) in 1952 at 7 Years. bilateral wrist [...] visible). Respiratory (more content not included)... Normal [facility] Comment on above: Result Comment: Elec tronically Signed By: MD Kar, Jemima Bella\.br\Date and Time Signed: 11/01/23 18:14 EST Operative Reporton Operative Report SURGERY DATE: 2022 PICKING TECH: Samuel Gonsalez PA-C PREOPERATIVE DIAGNOSIS: Right olecranon fracture POSTOPERATIVE DIAGNOSIS: Right olecranon fracture OPERATION: Right olecranon open reduction internal fixation ANESTHESIA: General ANESTHESIOLOGIST: CINDY Faria ESTIMATED BLOOD LOSS: None SPECIMEN: None COMPLICATIONS: None IMPLANT: 0.062 K-wire x2 with 18 gauge dental wire for a zwiboo-fq-gnfze tension band construct HISTORY/OPERATIVE INDICATIONS: Yousif is [...] visualized. It is then fixed with a scmvtp-um-oiuve construct as described below. Samuel Gonsalez did [...] This is done in the standard fashion. Rhcstt-jh-xnchf is then applied, tensioned accordingly, is cut [...] is subsequently extubated, transferred to the [facility] and taken to Post-Anesthesia Care Unit in stable condition. He will be discharged this day. Heath Orourke Dictated: 10/28/2023 [id number] Transcribed: 10/29/2023 cc:Abbie Gtz III, D.O. [facility] Comment on above: Result Comment: Elec tronically Signed By: Theresa Villalpando DO\.br\Date and Time Signed: 10/30/23 11:53 EST Consent for Anesthesiaon Consent for Anesthesia [id number]#1.00TIFF Normal [facility] Discharge Instructionson Discharge Instructions [id number]#1.00TIFF Normal [facility] Insurance Correspondence Off iceon 10-29-2023 Insurance Correspondence Office [id number]#1.00TIFF Normal [facility] IntraOperative Documentson 1 12-29-2022 IntraOperative Documents [id number]#1.00TIFF Normal [facility] Main OR Intraoperative Recor don 10-29-2023 Main OR Intraoperative Record IntraOp Document Type FT Summary Primary Physician: Theresa Villalpando DO Finalized Date/Time: 10/29/23 12:32:07 Pt. Name: DANIAYOUSIF D.O.B./Sex: 1945 Male Med Rec #: [id number] Physician: Theresa Villaplando DO Financial #: [id number] Pt. Type: A Room/Bed: [place] [address] Admit/Disch: 10/28/23 10:36:00 - 10/28/23 17:40:00 Institution: [...] Alfred Role Performed Anesthesiologist Surgeon - Primary PA/[employer]AB[employer]ITTER Control Room Tender Time In 10/28/23 14:07:00 10/28/23 14:07:00 10/28/23 [...] C Roll RT, Daniel P Role Performed Industrial Maintenance Technician - Primary Scrub - Primary Emblem Fuser Tender Time In 10/28/23 14:07:00 10/28/23 14:07:00 10/28/23 [...] and tissue Entry 1 Skin Integrity Intact, [place], Warm, and Skin Abnormality No Dry Outcomes [...] symptoms o (more content not included)... Normal [facility] Preoperative Documentson Preoperative Documents [id number]#1.00TIFF Normal [facility] XR Elbow 2 Views Righton XR Elbow [...] mGy = 1.66 DAP = na Normal [facility] Consent for Treatmenton 10-02 Consent for Treatment [id number]#1.00TIFF Normal [facility] Discharge Instructionson Discharge Instructions DANIA YOUSIF L [...] physician. This Is Your Medications List acetaminophen-hydrocodone (Bronston 325 mg-5 mg oral tablet) atorvastatin (atorvastatin [...] Appointment has already been scheduled Where: [address] [place] [address]- [employer] (1) Medications What How Much When Instructions Next Dose Unchanged acetaminophen-hydrocodone (Bron[place] 325 mg-5 mg oral tablet) See instructions 1 - 2 po q4-6h prn pain Dx: S52.031D Duration: 7 days Pickup at [facility]/pharmacy #6173 Unchanged atorvastatin (atorvastatin 20 mg Tab) 1 Tablets By Mouth Once a day (at bedtime) Unchanged docusate (Colace 100 mg Cap) 1 Capsules By Mouth 2 times a day as needed for for constipation Pickup at [facility]/pharmacy #6173 Unchanged hydrochlorothiazide (hydrochlorothiazide 25 mg oral tablet) 1 Tablets By Mouth Every day Unchanged rivaroxaban (Xarelto 2.5 mg oral tablet) 2 Tablets By Mouth Every day Pharmacy Information [facility]/pharmacy #6173: [address] [place], [place] [phone] Test Results No qualifying data available. Allergies [...] WIRE 10/28/2023 K-WIRE (2), 10/28/2023 Education Materials [place], [place] [facility] OUTPATIENT SURGERY Home Care [...] pain a (more content not included)... Normal [facility] Comment on above: Result Comment: Elec tronically Signed By: Flavio PHELPS, Marilou Aguero\.br\Date and Time Signed: 10/28/23 16:53 EST H&P Updateon 10-28-2023 H&P Update [id number]#1.00TIF F Normal [facility] Main OR PACU I Recordon 10-02 Main OR PACU I Record PACU Phase I Document Type FT Summary Primary Physician: Theresa Villalpando DO Finalized Date/Time: 10/28/23 16:14:58 Pt. Name: YOUSIF AGUILAR D.O.B./Sex: 1945 Male Med Rec #: [id number] Physician: Theresa Villalpando DO Financial #: [id number] Pt. Type: A Room/Bed: [place] [address] Admit/Disch: 10/28/23 10:36:00 - Institution: Case Times [...] By: Elizabeth Rowe RN 10/28/23 16:14 Normal [facility] Main OR Preoperative Recordo n 10-28-2023 Main OR Preoperative Record PreOp Document Type FT Summary Primary Physician: Theresa Villalpando DO Finalized Date/Time: 10/28/23 14:12:47 Pt. Name: YOUSIF AGUILAR Jimbo Gaines/Sex: 1945 Male Med Rec #: [id number] Physician: Theresa Villalpando DO Financial #: [id number] Pt. Type: A Room/Bed: [facility] Admit/Disch: 10/28/23 10:36:00 - Institution: Case [...] Signed By: Idris Brooks 10/28/23 14:12 Normal [facility] Monitor Recordon 10-28-2023 Monitor Record [id number]#1.00TIFF Normal [facility] Patient Education - Texton 1 12-28-2022 Patient Education - Text [place], [place] [facility] OUTPATIENT SURGERY Home Care [...] drive. __ Theresa Villalpando DO [facility] [address] [place] [address] Reviewed: 03-08 [facility] Progress Note-Physicianon Progress Note-Physician Patient: YOUSIF AGUILAR Age: 77 years Sex: Male : 1945 Associated Diagnoses: None Author: Theresa Villalpando DO Postoperative Information Procedure: R Olecranon ORIF Preoperative Diagnosis: R olecrjerome fx. Postoperative Diagnosis: same. Performed by: camila. Control Room Tender: Wallace. Specimens Removed: none. Prosthesis: tension band. . Estimated Blood Loss: 0 ml. Complications: None. Anesthesia type: General. Normal [facility] Comment on above: Result Comment: Elec tronically Signed By: Theresa Villalpando DO\Date and Time Signed: 10/28/23 15:37 EST CHEMISTRYOrdered By: SYSTEM SYSTEM on 10-27-2023 Potassium [Moles/Vol] 3.6 mmol/L Normal 3.5 - 5.3 mmol/L [facility] Remisol Consent for Procedure/Surger yon 10-27-2023 Consent for Procedure/Surgery [id number]#1.00TIFF Normal [facility] Consent for Treatmenton 10-02 Consent for Treatment [id number]#1.00TIFF Normal [facility] Physician Orderon 10-27-2023 Physician Order [id number]#1.00TIFF Normal [facility] Potassiumon 10-27-2023 Potassium [Moles/Vol] 3.6 mmol/L Normal 3.5-5.3 [facility] Comment on above: Performed By: #### 2 477314 #### [facility] [address] [place] [address] XR Chest 2 Viewson 3 XR Chest [...] mGy = na DAP = na Normal [facility] Auto Diffon 10-22-2023 Basophils/100 WBC (Bld) 0.3 % Normal 0.0-2.0 [facility] Comment on above: Order Comment: Order Added by Discern Expert. Performed By: #### 2 479557, 2359721, 7355790, 96596932 ####[facility] [address] [place] [address] Basophils/Leukocytes Auto (Bld) [Pure # fraction] 0.0 E9/L Normal 0.0-0.2 [facility] Comment on above: Order Comment: Order Added by Discern Expert. Performed By: #### 2 541185, 0165281, 8464042, 86516554 ####[place] [address] [place] [address] Eosinophils/100 WBC (Bld) 3.6 % Normal 0.0-8.0 [facility] Comment on above: Order Comment: Order Added by Discern Expert. Performed By: #### 2 960202, 5502561, 3220813, 85925370 ####[facility] [address] [place] [address] Eosinophils/Leukocyt es Auto (Bld) [Pure # fraction] 0.3 E9/L Normal 0.0-0.5 [facility] Comment on above: Order Comment: Order Added by Discern Expert. Performed By: #### 2 109247, 1278610, 3917630, 93348785 ####[facility] [address] [place] [address] Lymphocytes/100 WBC (Bld) 15.5 % Normal 14.0-50.0 [facility] Comment on above: Order Comment: Order Added by Hilda Expert. Performed By: #### 2 672785, 6147693, 0743614, 72347865 ####[facility] [address] [place] [address] Lymphocytes/Leukocyt es Auto (Bld) [Pure # fraction] 1.1 E9/L Normal 1.0-4.0 [facility] Comment on above: Order Comment: Order Added by Discern Expert. Performed By: #### 2 379059, 5243240, 8977048, 42669499 ####[address] [place] [address] Monocytes/100 WBC (Bld) 9.5 % Normal 4.0-14.0 [facility] Comment on above: Order Comment: Order Added by Discern Expert. Performed By: #### 2 589786, 8317321, 9629505, 40821057 ####[address] [place] [address] Monocytes/Leukocytes Auto (Bld) [Pure # fraction] 0.7 E9/L Normal 0.2-1.0 [facility] Comment on above: Order Comment: Order Added by Discern Expert. Performed By: #### 2 736810, 2184118, 6756995, 92147015 ####[address] [address] Neutrophils/100 WBC (Bld) 71.1 % Normal 36.0-75.0 [facility] Comment on above: Order Comment: Order Added by Discern Expert. Performed By: #### 2 958652, 3560458, 2704660, 57038453 ####[address] [place] [address] Neutrophils/Leukocyt es Auto (Bld) [Pure # fraction] 5.2 E9/L Normal 2.0-7.5 [facility] Comment on above: Order Comment: Order Added by Discern Expert. Performed By: #### 2 838507, 5594540, 3746229, 01750270 ####[address] [place] [address] BMPon 10-22-2023 Anion gap [Moles/Vol] 13 mmol/L Normal 6-16 [facility] Comment on above: Performed By: #### 2 544959, 1491239, 0334914, 39880141 ####[address] [place] [address] Calcium [Mass/Vol] 8.4 mg/dL Low 8.9-11.1 [facility] Comment on above: Performed By: #### 2 156691, 2955266, 8315577, 50791433 ####[facility] [address] [place] [address] Chloride [Moles/Vol] 97 mmol/L Low 101-111 [facility] Comment on above: Performed By: #### 2 662104, 0289549, 1094343, 94047300 ####[facility] [address] [place] [place] [address] CO2 [Moles/Vol] 31 mmol/L Normal 21-31 [facility] Comment on above: Performed By: #### 2 874179, 0305444, 9052045, 15956248 ####[facility] [address] [place] [address] Creatinine [Mass/Vol] 0.9 mg/dL Normal 0.5-1.3 [facility] Comment on above: Performed By: #### 2 637755, 9729338, 9658416, 30570539 ####[facility] [address] [place] [address] Glucose [Mass/Vol] 105 mg/dL Normal 55-199 [facility] Comment on above: Result Comment: If t his glucose result represents a fasting glucose, interpretation should refer to the following reference range: 55-99 mg/dL Performed By: #### 2 972648, 9142831, 9607191, 83257584 ####[facility] [address] [place] [address] Potassium [Moles/Vol] 2.8 mmol/L Abnormal 3.5-5.3 [facility] Comment on above: Result Comment: Crit ical Result verified by repeat analysis\Critical Result S_K:2.8 Called to [facility] by MITALI DUBON And Read Back For Confirmation at: 10/22/2023 13:36:24 Performed By: #### 2 542003, 1014837, 0397419, 46500502 ####[facility] [address] [place] [address] Sodium [Moles/Vol] 138 mmol/L Normal 135-145 [facility] Comment on above: Performed By: #### 2 660649, 9457525, 8117850, 89170820 ####[facility] [address] [place] [address] Urea nitrogen [Mass/Vol] 17 mg/dL Normal 5-21 [facility] Comment on above: Performed By: #### 2 407539, 5439737, 4070609, 68410016 ####[facility] [address] [place] [address] Urea nitrogen/Creatinine [Mass ratio] 19 No Units Normal 10-20 [facility] Comment on above: Performed By: #### 2 456186, 6537362, 0305367, 47089881 ####[facility] [address] [place] [address] CBC w/ Auto Diffon 3 Erythrocyte distribution width (RBC) [Ratio] 14.1 % Normal 10.9-14.2 [facility] Comment on above: Performed By: #### 2 470394, 7038917, 3304060, 72428711 ####[facility] [address] [place] [address] Hematocrit (Bld) [Volume fraction] 32.6 % Low 37.7-49.0 [facility] Comment on above: Performed By: #### 2 685961, 9143264, 4147548, 16564983 ####[facility] [address] [place] [address] Hemoglobin (Bld) [Mass/Vol] 10.9 g/dL Low 13.5-17.5 [facility] Comment on above: Performed By: #### 2 092968, 8856309, 5552833, 67457852 ####[address] [place] [address] MCH (RBC) [Entitic mass] 28.9 pg Normal 27.0-34.0 [facility] Comment on above: Performed By: #### 2 308596, 4150595, 3012485, 56185248 ####[address] [address] MCHC (RBC) [Mass/Vol] 33.5 g/dL Normal 31.4-36.0 [facility] Comment on above: Performed By: #### 2 946277, 1766845, 5782043, 04611000 ####[address] [address] MCV (RBC) [Entitic vol] 86.3 fL Normal 80.0-100.0 [facility] Comment on above: Performed By: #### 2 919027, 2749926, 3866312, 87320537 ####[place] [address] Platelet mean volume (Bld) [Entitic vol] 8.8 fL Normal 6.4-10.8 [facility] Comment on above: Performed By: #### 2 638671, 9783454, 7510695, 32929014 ####[address] [address] Platelets (Bld) [#/Vol] 245.0 E9/L Normal 150.0-500.0 [facility] Comment on above: Performed By: #### 2 653339, 3976197, 5621731, 15021933 ####[address] [address] RBC (Bld) [#/Vol] 3.8 E12/L Low 4.3-5.9 [facility] Comment on above: Performed By: #### 2 826690, 4983138, 3560443, 61028144 ####[address] [address] WBC corrected for nucl RBC Auto (Bld) [#/Vol] 7.4 E9/L Normal 4.0-11.0 [facility] Comment on above: Performed By: #### 2 941238, 1442285, 2306172, 04878531 ####[facility] [address] [place] [address] CHEMISTRYOrdered By: SYSTEM SYSTEM on 10-22-2023 Anion [...] 89 mL/min/1.73 m2 Normal >=59mL/min/ 1.73 m2 [facility] Chem S Comment on above: Interpretive Data: [...] S_K:2.8 Called to [facility] by MITALI DUBON And Read Back For Confirmation at: 10/22/2023 13:36:24 Sodium [Moles/Vol] 138 mmol/L Normal 135 - 145 mmol/L FT Remisol Urea nitrogen [Mass/Vol] 17 mg/dL Normal 5 - 21 mg/dL FT Remisol Urea nitrogen/Creatinine [Mass ratio] 19 mg/mg Normal 10 - 20 [facility] Remisol Consent for Treatmenton 10-02 Consent for Treatment [id number]#1.00TIFF Normal [facility] HEMATOLOGYOrdered By: SYSTEM SYSTEM on 10-22-2023 Basophils/100 [...] [Vol rate/Area] 89 mL/min/1.73 m2 Normal >=59 [facility] Comment on above: Order Comment: Order added by Discern Expert. Result Comment: E Commerce Manager mercy kidney disease could be indicated at eGFR's of less than 60 mL/min/1.73m2. Kidney failure is indicated at less than 15 mL/min/1.73m2. Performed By: #### 2 011766, 3467231, 8895249, 58996795 ####[facility] [address] [place] [address] Consent for Treatmenton 10-01 Consent for Treatment [id number]#1.00TIFF Normal [facility] Discharge Instructionson Discharge Instructions [id number]#1.00TIFF Normal [facility] ED Clinical Summaryon 2022 ED Clinical Summary (Inserted Image. Clarissa ble to display) [address] [address] ED Clinical Summary Person Information Name: YOUSIF AGUILAR Olga Lidia/[facility] Age: 77 Years : 1945 Sex: Male Language: Urdu PCP: Abbie Gtz III, DO Marital Status: [...] 10/17/2023 23:43:34 10/17/2023 23:43:34 10/17/2023 23:43:34 ADDRESS: [address] [place] [phone] PHYS DOC NOTES: MEDICAL INFORMATION: Prescriptions Given: New Medications [facility], [address] [facility] [place] [id number], [phone] acetaminophen-hydrocodone (Bronston 325 mg-5 mg oral tablet) 1 Tablets [...] up: With: Address: When: Theresa Villalpando [address] [place] [address] Business (1) In 3 days 10/20/2023 Comments: You can use the pain medication every 6 hours as needed for pain. Please follow-up with your primary care doctor addition to orthopedics for further evaluation management. Please return to the ED for any new or worsening symptoms. With: Address: When: Abbie Gtz [address] [facility], [place] [address] Business (1) In 3 days DIAGNOSIS: Olecranon fracture Normal [facility] ED Note-Physicianon 10-18-20 ED Note-Physician Basic Information [...] and Complexity of Problems Differential Diagnosis: [] [facility] Data External documents reviewed: [] My [...] for 3 day(s), 10 tab(s), Refill(s) 0, [facility] 1985, 177.8, cm, 10/17/23 21:21:00 EST, Height/Length Dosing, 133.1, kg, 10/17/23 21:21:00 EST, Weight Dosing Sling Apply XR Elbow 3+ Views Right Disposition Plan Discharge Prescription List Prescriptions [place] 325 mg-5 mg oral tablet, 1 tab(s), Oral, q6hr, PRN Follow-up With When Contact Information Theresa Villalpando In 3 days 10/20/2023 EST [address] [place] [address]- Business (1) Additional Instructions: You can use the pain medication every 6 hours as needed for pain. Please follow-up with your primary care doctor addition to orthopedics for further evaluation management. Please return to the ED for any new or worsening symptoms. Abbie Gtz In 3 days [address] [facility], [place] [address]- Business (1) Additional Instructions: Patient Education Olecranon [...] ex (more content not included)... Normal [facility] Comment on above: Result Comment: [...] these instructions at home: Medicines ? Take cnmc-nhd-fozktbm and prescription medicines only as told by your health care provider. ? Ask your health care provider if the medicine prescribed to you: ? Requires you to avoid driving or using heavy machinery. ? Can cause constipation. You may need to take actions to prevent or treat constipation, such as: ? Drink enough fluid to keep your urine pale yellow. ? Take gzag-suu-ytkwkpf or prescription medicines. ? Eat foods that [...] is import (more content not included)... Normal [facility] ED Patient Summaryon 023 ED Patient Summary (Inserted Image. Clarissa ble to display) [place] [id number] Patient Discharge Instructions Person Information Name: YOUSIF AGUILAR Age: 77 Years Arrival Date: 10/17/2023 21:13:58 Discharge Diagnosis: Olecranon fracture Primary Care Physician: Abbie Gtz III, DO Provider Information Primary Provider: Bryce Funk DO Advanced Side Trimmer:None The exam and treatment you received in the Emergency Department were for an urgent problem and are not intended as complete care. It is important that you follow up with a doctor, nurse practitioner, or physician?s rn first assistant for ongoing care. If your symptoms [...] Instructions: With: Address: When: Theresa Villalpando [address] [place] [address] Business (1) In 3 days 10/20/2023 Comments: You can use the pain medication every 6 hours as needed for pain. Please follow-up with your primary care doctor addition to orthopedics for further evaluation management. Please return to the ED for any new or worsening symptoms. With: Address: When: Abbie Gtz [address] [facility] [place] [address] Business (1) In 3 days In the event that this physician does not participate in your insurance network, please consult with your insurance company to find a nearby participating provider. Patient Education Materials: William Fracture A MESSAGE TO ALL PATIENTS REGARDING OPIOIDS PRESCRIPTION OPIOIDS: WHAT YOU NEED TO KNOW Prescription opioids can be used to help relieve boojyfut-gs-ibcolc pain and are often prescribed following a [...] following g (more content not included)... Normal [facility] ED Traumaon 10-18-2023 ED Trauma [id number] 81541 [id number]#1.00TIFF Normal [facility] XR Elbow 3+ Views Righton XR Elbow [...] in mGy = na DAP = na [facility] Pre-Arrival Noteon 3 Pre-Arrival Note Pre-Arrival Summary Name: , ncems Current Date: 10/17/2023 21:14:37 EST Gender: Male Date of : Age: 77 Pre-Arrival Type: EMS ETA: 10/17/2023 21:06:00 EST Primary Care Physician: Presenting Problem: T2-fall, elbow pain Pre-Arrival User: Nicholas Rosario RN Referring Source: Location: CT Completion Date/Time: 10/17/2023 21:06:00 [facility] Emergency Department Pre-Hospital Report Form ____ Vital Signs: Pre-Hospital Report: slipped on kitchen floor falling to R elbow, swelling noted. denies hitting head or LOC. on xarelto. no other pain/complaints Treatment in Route: none Response to Treatment: Misc. Issues: Normal [facility] Nursing Note - Woundon 08-12 Nursing Note - Wound [id number] 410452 [id number]#1.00CD:1 27 [facility] Consent for Procedure/Surger yon 08-05-2023 Consent for Procedure/Surgery [id number]#1.00CD:1 27 [facility] Consent for Treatmenton Consent for Treatment [id number]#1.00CD:12 7 [facility] Physician Orderon 08-05-2023 Physician Order [id number]#1.00CD:1 27 [facility] Nursing Note - Woundon 07-31 Nursing Note - Wound 170.71.018.243.5410 [id number]#1.00CD:1 27 [facility] Physician Orderon 07-31-2023 Physician Order [id number]#1.00CD:1 27 [facility] Consent for Treatmenton 07-02 Consent for Treatment [id number]#1.00CD:12 7 [facility] Multi-Wound Charton 07-29-20 Multi-Wound Chart 170.71.121.117.14191 95786 [id number]#1.00CD:1 27 [facility] Nursing Assessment - Woundon 07-29-2023 Nursing Assessment - Wound [id number]#1.00CD:1 27 [facility] Procedure - Woundon 07-29-20 Procedure - Wound 170.71.121.117.04845 75320 [id number]#1.00CD:1 27 [facility] Consent for Treatmenton 07-02 Consent for Treatment [id number]#1.00CD:12 7 [facility] Multi-Wound Charton 07-22-20 Multi-Wound Chart 170.71.121.117.09540 46966 [id number]#1.00CD:1 27 [facility] Nursing Assessment - Woundon 07-22-2023 Nursing Assessment - Wound [id number]#1.00CD:1 27 [facility] Nursing Note - Woundon 07-22 Nursing Note - Wound 170.71.093.487.0030 954664 [id number]#1.00CD:1 27 [facility] Physician Orderon 07-22-2023 Physician Order [id number]#1.00CD:1 27 [facility] Procedure - Woundon 07-22-20 Procedure - Wound 170.71.121.117.01558 76595 [id number]#1.00CD:1 27 [facility] Progress Note - Woundon 07-02 Progress Note - Wound [id number]#1.00CD:1 27 [facility] Consent for Treatmenton 07-01 Consent for Treatment [id number]#1.00CD:127 [facility] Physician Orderon 07-15-2023 Physician Order [id number]#1.00CD:1 27 [facility] Multi-Wound Charton 07-14-20 Multi-Wound Chart 170.71.121.117.12029 95770 [id number]#1.00CD:1 27 [facility] Nursing Assessment - Woundon 07-14-2023 Nursing Assessment - Wound [id number]#1.00CD:1 27 [facility] Nursing Note - Woundon 07-14 Nursing Note - Wound 170.71.588.211.5271 779671 [id number]#1.00CD:1 27 [facility] Consent for Procedure/Surger yon 07-08-2023 Consent for Procedure/Surgery [id number]#1.00CD:1 27 [facility] Consent for Procedure/Surgery 149.45.122.15.49110669975 [id number]#1.00CD:1 27 [facility] Consent for Treatmenton Consent for Treatment [id number]#1.00CD:12 7 [facility] Multi-Wound Charton 07-08-20 Multi-Wound Chart 170.71.121.117.55577 46953 [id number]#1.00CD:1 27 [facility] Nursing Assessment - Woundon 07-08-2023 Nursing Assessment - Wound 170.71.121.117.6631843568 [id number]#1.00CD:1 27 [facility] Nursing Note - Woundon 07-08 Nursing Note - Wound 170.71.207.933.2897 213714 [id number]#1.00CD:1 27 [facility] Physician Orderon 07-08-2023 Physician Order [id number] [id number]#1.00CD:1 27 [facility] Procedure - Woundon 07-08-20 Procedure - Wound 170.71.121.117.64213 06533 [id number]#1.00CD:1 27 [facility] Progress Note - Woundon Progress Note - Wound [id number]#1.00CD:1 27 [facility] Multi-Wound Charton 07-01-20 Multi-Wound Chart 170.71.121.117.39811 90398 [id number]#1.00CD:1 27 [facility] Nursing Note - Woundon 07-01 Nursing Note - Wound 170.71.252.789.9501 348688 [id number]#1.00CD:1 27 [facility] Consent for Treatmenton 06-02 Consent for Treatment [id number]#1.00CD:12 7 [facility] Insurance Correspondenceon 0 06-30-2023 Insurance Correspondence [id number]#1.00CD:1 27 [facility] Physician Orderon 06-30-2023 Physician Order [id number]#1.00CD:1 27 [facility] Procedure - Woundon 06-30-20 Procedure - Wound 170.71.121.117.87500 36600 [id number]#1.00CD:1 27 [facility] Consent for Treatmenton 06-01 Consent for Treatment [id number]#1.00CD:12 7 [facility] Multi-Wound Charton 06-24-20 Multi-Wound Chart 170.71.121.117.51542 68941 [id number]#1.00CD:1 27 [facility] Nursing Assessment - Woundon 06-24-2023 Nursing Assessment - Wound 170.71.121.117.3333827115 [id number]#1.00CD:1 27 [facility] Nursing Note - Woundon 06-24 Nursing Note - Wound 170.71.997.957.3943 929137 [id number]#1.00CD:1 27 [facility] Physician Orderon 06-24-2023 Physician Order [id number]#1.00CD:1 27 [facility] Procedure - Woundon 06-24-20 Procedure - Wound 170.71.121.117.11756 08199 [id number]#1.00CD:1 27 [facility] Progress Note - Woundon 06-01 Progress Note - Wound 170.71.121.117.2420548692 [id number]#1.00CD:1 27 [facility] Consent for Treatmenton 05-31 Consent for Treatment [id number]#1.00CD:12 7 [facility] Multi-Wound Charton 06-17-20 Multi-Wound Chart 170.71.121.117.76952 76609 [id number]#1.00CD:1 27 [facility] Nursing Assessment - Woundon 06-17-2023 Nursing Assessment - Wound [id number]#1.00CD:1 27 [facility] Nursing Note - Woundon 06-17 Nursing Note - Wound 170.71.508.022.4864 798882 [id number]#1.00CD:1 27 [facility] Physician Orderon 06-17-2023 Physician Order [id number]#1.00CD:1 27 [facility] Procedure - Woundon 06-17-20 Procedure - Wound 170.71.121.117.21583 [id number] [id number]#1.00CD:1 27 [facility] Progress Note - Woundon 05-31 Progress Note - Wound [id number]#1.00CD:1 27 [facility] Consent for Procedure/Surger yon 06-11-2023 Consent for Procedure/Surgery [id number]#1.00CD:1 27 [facility] Correspondence - Woundon Correspondence - Wound 170.71.121.95.97015486384 [id number]#1.00CD:1 27 [facility] Nursing Note - Woundon 06-11 Nursing Note - Wound 170.71.160.353.2430 831127 [id number]#1.00CD:1 27 [facility] Physician Orderon 06-11-2023 Physician Order [id number]#1.00CD:1 27 [facility] Procedure - Woundon 06-11-20 Procedure - Wound 170.71.121.117.61538 90714 [id number]#1.00CD:1 27 [facility] Progress Note - Woundon 05-31 Progress Note - Wound 170.71.121.117.7614152690 [id number]#1.00CD:1 27 [facility] Consent for Treatmenton 05-31 Consent for Treatment 159.140.128.34.2512246477 [id number]#1.00CD:12 7 [facility] Multi-Wound Charton 06-10-20 Multi-Wound Chart 170.71.121.117.00024 31475 [id number]#1.00CD:1 27 [facility] Nursing Assessment - Woundon 06-10-2023 Nursing Assessment - Wound [id number]#1.00CD:1 27 [facility] Nursing Note - Woundon 06-09 Nursing Note - Wound 170.71.450.618.0318 896768 [id number]#1.00CD:1 27 [facility] Physician Orderon 06-09-2023 Physician Order [id number]#1.00CD:1 27 [facility] Procedure - Woundon 06-09-20 Procedure - Wound 170.71.121.117.06551 57710 [id number]#1.00CD:1 27 [facility] Progress Note - Woundon 05-31 Progress Note - Wound [id number]#1.00CD:1 27 [facility] Physician Orderon 06-06-2023 Physician Order [id number]#1.00CD:1 27 [facility] Procedure - Woundon 06-06-20 Procedure - Wound 170.71.121.117.89470 88120 [id number]#1.00CD:1 27 [facility] Multi-Wound Charton 06-05-20 Multi-Wound Chart 170.71.121.117.16160 78480 [id number]#1.00CD:1 27 [facility] Nursing Note - Woundon 06-05 Nursing Note - Wound 170.71.492.460.1741 139901 [id number]#1.00CD:1 27 [facility] Procedure - Woundon 05-28-20 Procedure - Wound 170.71.121.117.11409 25126 [id number]#1.00CD:12 7 [facility] Consent for Treatmenton 05-02 Consent for Treatment 159.140.128.36.1530658396 [id number]#1.00CD:12 7 [facility] Multi-Wound Charton 05-27-20 Multi-Wound Chart 170.71.121.117.42437 75958 [id number]#1.00CD:1 27 [facility] Nursing Note - Woundon 05-27 Nursing Note - Wound 170.71.374.615.3645 564892 [id number]#1.00CD:1 27 [facility] Physician Orderon 05-27-2023 Physician Order [id number]#1.00CD:1 27 [facility] Multi-Wound Charton 05-21-20 Multi-Wound Chart 170.71.121.117.64891 92032 [id number]#1.00CD:1 27 [facility] Nursing Note - Woundon 05-21 Nursing Note - Wound 170.71.186.865.8605 197911 [id number]#1.00CD:1 27 [facility] Physician Orderon 05-21-2023 Physician Order [id number] [id number]#1.00CD:1 27 [facility] Prescriptions/Work Noteson 0 05-21-2023 Prescriptions/Work Notes [id number]#1.00CD:1 27 [facility] Procedure - Woundon 05-21-20 Procedure - Wound 170.71.121.117.15961 23479 [id number]#1.00CD:1 27 [facility] Consent for Treatmenton 05-02 Consent for Treatment 159.140.128.36.3795043097 [id number]#1.00CD:12 7 [facility] Multi-Wound Charton 05-20-20 Multi-Wound Chart 170.71.121.117.46723 06412 [id number]#1.00CD:1 27 [facility] Nursing Assessment - Woundon 05-20-2023 Nursing Assessment - Wound [id number] [id number]#1.00CD:1 27 [facility] Consent for Treatmenton 05-01 Consent for Treatment [id number]#1.00CD:12 7 [facility] Consent for Procedure/Surger yon 05-06-2023 Consent for Procedure/Surgery 170.71.121.81.00289891437 [id number]#1.00CD:1 27 [facility] Consent for Treatmenton Consent for Treatment 159.140.128.34.5902887743 [id number]#1.00CD:12 7 [facility] Multi-Wound Charton 05-06-20 Multi-Wound Chart 170.71.121.117.29244 90755 [id number]#1.00CD:1 27 [facility] Nursing Assessment - Woundon 05-06-2023 Nursing Assessment - Wound [id number]#1.00CD:1 27 [facility] Nursing Note - Woundon 05-06 Nursing Note - Wound 170.71.347.031.9641 956165 [id number]#1.00CD:1 27 [facility] Physician Orderon 05-06-2023 Physician Order [id number] [id number]#1.00CD:1 27 [facility] Procedure - Woundon 05-06-20 Procedure - Wound 170.71.121.117.07403 14456 [id number]#1.00CD:1 27 [facility] Progress Note - Woundon Progress Note - Wound [id number] [id number]#1.00CD:1 27 [facility] Correspondence - Woundon Correspondence - Wound 170.71.121.80.77419723890 [id number]#1.00CD:12 7 [facility] Consent for Treatmenton 04-01 Consent for Treatment 159.140.128.36.5259926755 [id number]#1.00CD:12 7 [facility] Multi-Wound Charton 04-22-20 Multi-Wound Chart 170.71.121.117.27422 75956 [id number]#1.00CD:1 27 [facility] Nursing Assessment - Woundon 04-22-2023 Nursing Assessment - Wound 170.71.121.117.5163331367 [id number]#1.00CD:1 27 [facility] Nursing Note - Woundon 04-22 Nursing Note - Wound 170.71.684.596.5480 571607 [id number]#1.00CD:1 27 [facility] Physician Orderon 04-22-2023 Physician Order [id number] [id number]#1.00CD:1 27 [facility] Procedure - Woundon 04-22-20 Procedure - Wound 170.71.121.117.42551 57419 [id number]#1.00CD:1 27 [facility] Progress Note - Woundon 04-01 Progress Note - Wound 170.71.121.117.8511114580 [id number]#1.00CD:1 27 [facility] Correspondence - Woundon Correspondence - Wound 149.45.122.13.68860432889 [id number]#1.00CD:12 7 [facility] Consent for Treatmenton 03-31 Consent for Treatment 159.140.128.34.1022779931 [id number]#1.00CD:12 7 [facility] Correspondence - Wound[place] Correspondence - Wound 170.71.121.88.73638411671 [id number]#1.00CD:1 27 [facility] Multi-Wound Charton 04-15-20 Multi-Wound Chart 170.71.121.117.45612 03352 [id number]#1.00CD:1 27 [facility] Nursing Assessment - Woundon 04-15-2023 Nursing Assessment - Wound [id number]#1.00CD:1 27 [facility] Nursing Note - Woundon 04-15 Nursing Note - Wound 170.71.978.550.8430 364011 [id number]#1.00CD:1 27 [facility] Physician Orderon 04-15-2023 Physician Order [id number] [id number]#1.00CD:1 27 [facility] Procedure - Woundon 04-15-20 Procedure - Wound 170.71.121.117.03113 99044 [id number]#1.00CD:1 27 [facility] Progress Note - Woundon 03-31 Progress Note - Wound 170.71.121.117.3210873474 [id number]#1.00CD:1 27 [facility] Progress Note - Wound 170.71.121.117.0829615468 [id number]#1.00CD:1 27 [facility] Correspondence - Woundon Correspondence - Wound 149.45.122.6.750240388188 [id number]#1.00CD:12 7 [facility] Consent for Procedure/Surger yon 04-08-2023 Consent for Procedure/Surgery 149.45.122.20.00402780795 [id number]#1.00CD:1 27 [facility] Consent for Treatmenton Consent for Treatment 159.140.128.36.3072041259 [id number]#1.00CD:12 7 [facility] Multi-Wound Charton 04-08-20 Multi-Wound Chart 170.71.121.117.68257 61502 [id number]#1.00CD:1 27 [facility] Nursing Assessment - Woundon 04-08-2023 Nursing Assessment - Wound 170.71.121.117.0498121238 [id number]#1.00CD:1 27 [facility] Nursing Note - Woundon 04-08 Nursing Note - Wound 170.71.822.321.9078 682360 [id number]#1.00CD:1 27 [facility] Physician Orderon 04-08-2023 Physician Order [id number]#1.00CD:1 27 [facility] Procedure - Woundon 04-08-20 Procedure - Wound 170.71.121.117.05645 48607 [id number]#1.00CD:1 27 [facility] Consent for Treatmenton Consent for Treatment 159.140.128.36.3635295698 [id number]#1.00CD:12 7 [facility] Multi-Wound Charton 04-02-20 Multi-Wound Chart 170.71.121.117.45593 07544 [id number]#1.00CD:1 27 [facility] Nursing Note - Woundon 04-02 Nursing Note - Wound 170.71.118.550.3863 263789 [id number]#2.00CD:1 27 [facility] Physician Orderon 04-02-2023 Physician Order [id number] [id number]#2.00CD:1 27 [facility] Procedure - Woundon 04-02-20 Procedure - Wound 170.71.121.117.48173 31955 [id number]#1.00CD:1 27 [facility] Nursing Assessment - Woundon 03-27-2023 Nursing Assessment - Wound 170.71.121.117.3370676981 [id number]#1.00CD:1 27 [facility] Nursing Note - Woundon 03-27 Nursing Note - Wound 170.71.314.024.9428 518841 [id number]#1.00CD:1 27 [facility] Coding Summary.on 03-26-2023 Coding Summary. CD:[id number] Ww+PG hlYWQ+PX7IEZGxP52qoDYvsB5 fF9BFNBcWCvsmAGYKCWbXDsCz oqTwAW3paOUeAOGd IC8+UT7iPHTyLsetlGPfc3I3k ST0W84wjg9dPCimlNL7YCKaOo Ovxcbyh5yuuRw1KElcLbdmIoD t MYBpqJ57XVZ2lF91Nr39wANjm SEsz1dvyWf2NnRzJIMzDRV7jX ndBSefw1QiEQQqB69eeEQek1Z 6 CRWmzVheeZPrEiDakBC6hF9aT Fenbdjno8lwzdyrNsp1dv12zO Koa4C9iTI5X7PjjnJ1ZTQbtHC g YpoqeKTQlD6unjeqr9kcbyppK eCtTXIfSPl2JCn8NATwjLjrAr QjAK58NQP6BVGbkdPnK3NmQOU s sTguQyJ7z6X7Ie9EQ4WDWqqnV 1VNTUFSWTwvdGQ+QF27cu35I5 NfSfkiPhv9RYIuGBD7tDK3xM5 n FXVvXKhpu3W6dMA4B5SoihFks l4ns3nqZYHyVHhqW79taWZep2 I6MJWflTA1QUOgzQkmQxZjoG8 3 Oyc+QKCqbGwwm8IlMdqwg0hie 7xmuNn0YmnmOVKewzAdnDfpZZ Q1a3PuAy9sEGSzoME6tAF5eP9 i SvDxWsB3BNadZ398XyInpVFyG qcgV68qZ1JifGW+CILpIqq7YE YghHomHD4mG5GfXGDrgjoqsWP m cVxtNX6tKCRgcgpzSNDmrW5vZ ZStJ8b3JtWpLfK5BSvoN8UiWU MombuyWb33cN0hDcAgFoJ4IDa u V6HdmbZ8QMCrcYQgQRpmNDW4K 15wp7J5VZQjQWJeJDS8tYM8uM 1hbGlnbjogbGVmdDsgdmVydGl j MRqnOIboA958XGPztHhbVwKiW GluZyBEYXRlOiAgMDQvMjYvMj AyMzwvdGQ+MKSsTRN3pKleAVY n qGDvIOowUm3ijTftqGhsHB7pY PKsyibrGGKayE2gRJDddPZkcL pjLS3qIKUdxglho090SnWqWLK 0 RZPqeNMvC3WxwJ1cKcVgADOjA UYeD5VygORvMQzcU279IEmoPd M5AHJeppPxC9VoHUOyzDgtQhG 0 i6J6Wz7Fv3RhlifzV6CtpIZpQ aRaJefkKZn2M9DaIltwlOI+PC 41JKMgHK75COo9RMX3qOhiJJy i HHKwZ5HdxU0tZjQwKGUzJLOwC yc+PHRhYmxlIHdpZHRoPScxMD JiMqBwuXhrZL3uRd9iZCOkYNI v uMcwgFBcOeTxq8egLMWxXRfcI V7iyTxeM5YtyYL3DOCnh6l1Gg 28P86cJ2KptOD+LZVhuBG6bXQ 0 nD0iDxDzFeC5VIcxN708EcRbo CKiRtgmy8zby5vaqPx9QkC5UL JikmZlqIcoJZH5r4SwKu56B99 s IHdpZHRoPSIxNSUiIHZhbGlnb c2tqQ3aPe5+OARzmDD6fWA1pH 6vEdVeVvJ8GBebG039BwBzjEV v Gwsyg0olj6ssyKh4LcGsMKYbz rMngTdqTGE5v5QbHd67Z8GtiX uzc4GiHpy8zt88fDOma0J4iFL 9 M3YjBAUufxuvuPRljIhrSA5gC CNuzqazXJMctA0xLILoW3t0Lz SsVhH2ZTxpL0UfcrY3ZLAalDN g WWOjtMXBaM4scsbkm6sakzcjR lLaHBDaVYv4CYo7MYHcuGoySq EvVCS5VzG6JCM8eZCxhO9uhRc n tyyfsT9yOez+ZMH1lELngFTMU Y7rNumlnDI+MTMoIQV8xRmoSY qrPCXysH9gIFYbV3w3JlUfLrJ 1 HZtqI4UgdxR0BWJteUTvOOKof HIMxI6kvztmh5bgsmnkGvKeNX RdOSx2PFb5WQKqpFvfEqZmXBO 0 EtQ8MHD5xAFihT5ioNrdjvivo G9wOyc+KequlQukXVO3YRw9A6 GcKio8RKUjsJcwWG4esLAgKSy u Pv4gdFjxoVirNW8qLAWkylylw 198OwSld1hcWWDlyLLyTKixUK U4U32xa2O5TYOyFIObHAI8nZX 4 mD8ruFzjiymdxZIdeOqguhWri CfpETxmYHogS243MODuhHzmCi YhCDv9F2JfOtt9GGBflHkmRQ4 n hGFfCEwwLw9myOtgeLlhFR4lI ZIjyxpod852DoVoe7ptDVXacU ItMEotTVK6B52ii6O7LBJiPSE w JBZ7aFE3cQ6yiEyzecvozXVph IuzrtZxeZciHClqIWphB144LB NwpKnaFoTwwFr7P3IfTzz4TKH z zJcbCA1vpOTaYXjaAr8pyWupd KmjXW9rRIAovswcj907MlUgk5 kzIBZkdQCfNEneTWU4F16jh1G 6 UECxMCKsBUO8mYM8dP4grOmjy jogbGVmdDsgdmVydGljYWwtYW xeA699VZWrqDjoLlJswZgfpxV g XGnfLNy4G4IjUovgrZM+PC90Y TNzRY60fVFwjBOfc4qmuRt5Gi CiXCQlZWY0jUnyJKtkj3UnSYZ t V33stWTxe6B8USOenGriuOKtJ tOxqJP8eB8wRGhgqhvnn1vgkf foXnapu1ztld95mQ05F71jYEe p MWSxLJFhEGIjOSVyiRksdv5gu G9wIi8+ONTcfVQ0gRO2rH7ePX BkKkY2JJwyK734ZqCnpSVrYgx j j3ntg3jhxQf4IiW3MPVzbpXez VjwCEI7p8FhFq65Y44vOLvtBS UfMUInMIRzQJSynLasba7nxH9 w Ii8+EAVkrSF9cBD6lU1zJvHeQ fS7SZmyW736OqDwyHWrQjrsK0 0wM4QwtUD+FFMcLkv1EPElsBd s GG3usKDhYXcmEs1vRCX7MxUpG nStCEmtQ5EhBYEonsqjnaoqcQ W9ZVVwFKOjgY74Ak3zmYegRKV w bWNPiC6ubwieq5qcuatwRxVnA GFgNNs9RCs1IOAltTgtOyXaAQ L9HmH8GGM9sIJooM5xqFdyevj g tM4aP4YbZZEqttdcRh67jL3dU uNdJmO4ZAtwYfm+VEFOTkVSLC FBL02WUOErOSqpcDN+PHRkIHN 0 wJxjIXwnHPNdzS5gQNHrS9p0Q xYuMjL0CWxzT5KpEBYnftigVu 01fW4jXtNcKuY2VVvjO5YjffQ 6 UCNukMBdQGwlDJQ2O20sh1Q0M FMoPFDaMDN9mTU9dY5fuJnycs ogbGVmdDsgdmVydGljYWwtYWx p X325FEVtyRagWrRePcU2ZqO9F Zv5W9IvXan2DPChcQrdMU4vuQ MsSWdwIa7hvHgisKsmVM6hWEX p goluCLTapO7kSZMxnBYokRpoM B5oWLJcwfinq390AwThLGY0VX AjyUTmI2AkgA4tFcBoVLYiCTX w O1UlrVKwOZmkR534KRfeNhI8W FLadkOeQ6HaZBMktBpjSmR1p2 A7Ly11OUOTNCEldnvqdAP+PHR k PHW5pAvaCMnrMWJemY5fGMLoI 8s4FkGqPxW0EXqvM1OoMUEmzz ijWf46hS4jAdIlKiK8HKniK0W v pzC9KHFmvQLgNWgcQVN2R10mh 0B8QCSwYZJxFPX0lQW7uJ7jfY lnbjogbGVmdDsgdmVydGljYWw t XVfnA574SGXfyBujFp3fgUT0W 5LxIpl0ITXeuTgrCB4ctZNvOQ ixEl6xsTjjnGcyFQ5lLCJffpq w JMLlcQ1wFNJmmHOhyCexAM6pN NAilsqsy429UoTqZBE5QLEaoV InZ5DdeM0zYkXeESXePIBzD5B l oSAyKGylB756ZSsaBhO5GNTpj tMtU0MmMABlnOiuRhN3c6Z1Ki 0OzKUgPKJyQL51XX75YD65Z2K y PjwvdGFibGU+PHRhYmxlIHdpZ DXwJDhpEBOeDtBlwKplUJ1zFg 7aBNRoGYHeuBlaoFPcCaAkb3s s JWDwIUpyGC0dbBkbB5ZqaZB8T IMff0v4Ho42F72jY9ApcXM+PG IgcOK7zSJ7wL7aViShHsA2AHi p H715YlPqgIAzVsojr9jkm9khf Hz0EwVrGSFgqbDpsMjwTBB0v3 ZoCf06D75qLBfrLIAkTWRkTRQ i SOVuxHpktv5inS4tAz8+PGNvb KA5zJX3qK4wNhMpSoE3CNtkC2 28KlUfhSBiHzqwM39mM6UrbFB + DGAoUui4JMXxmHwaWY1ajWTuO VwtKd8bSHF8ZrBgVeTpYLypN1 VcZAOpdipgpjtmlWH8AYLaLDW w yB75Cu5maMmlUo4eZBBqNXA8M USrwNPqK8XtgG4wQhUmTMDaGV EmM7HddXGpTBvvI439LSbyQjS 7 CGSigiBzD1XwJMHqePrtLmK6r 4P0Ni9EwOftnMEfHZ0iObPrCF l6X0ZqSpi1MAQbsYckKG5rlLH k AXcnXm9amCdamUtuTY7pMLLfe qkte979ErTcn4opELVjjRNjGR evPBN1N37fw8F3EFQwGHGpDTB 7 bZC8mG0kxCdchxxhbUZbrWqwr eWghYljWIohWUevR262SNFvgJ fnEgBPDyg9L3SkEoq3ZDZozSj s MA5tqVYnATwpDq6rfShaxJvwN G1jYMYhcwvls715YsCvy7okRY YaaTRgAGvhCJZ8C04yc8E3VIN w ELMrMBU4iUU3nY1otSwyoimlb GVmdDsgdmVydGljYWwtYWxpZ2 75DOBncHlpCt2IAsj3I9UlTjl 0 XTHknHdjPK4lxDXgPYsjNk0xq ZeweBpmTR3uYIVqjymzy698Wg Rpo6cfFGLniTCaLNdrTKE7I45 s m3Y5JYCuZPClLBT5oMT9tX4vy GlnbjogbGVmdDsgdmVydGljYW mjEPtyZ791DDInqCixErVkhMN y OjwvdGQ+ZJ96gx94A2OaCalmZ mz9CSLcIVM2kGA7sT8yKRAnAO scv4Q1mAJ1R2LaxbEzza2tw2h s YXBzZTog (more content not included)... [facility] Consent for Treatmenton 03-02 Consent for Treatment [id number]#1.00CD:12 7 [facility] Multi-Wound Charton 03-25-20 Multi-Wound Chart [id number]#1.00CD:1 27 [facility] Physician Orderon 03-25-2023 Physician Order [id number]#1.00CD:1 27 [facility] Procedure - Woundon 03-25-20 Procedure - Wound [id number]#1.00CD:1 27 [facility] Progress Note - Woundon 04- Progress Note - Wound [id number]#1.00CD:1 27 [facility] Physician Orderon 03-19-2023 Physician Order [id number]#1.00CD:1 27 [facility] Procedure - Woundon 03-19-20 Procedure - Wound [id number]#1.00CD:1 27 [facility] Nursing Note - Woundon 03-18 Nursing Note - Wound [id number]#1.00CD:1 27 [facility] Consent for Treatmenton 03-01 Consent for Treatment [id number]#1.00CD:12 [facility] Multi-Wound Charton 03-17-20 Multi-Wound Chart [id number]#1.00CD:1 27 [facility] Physician Orderon 03-14-2023 Physician Order [id number]#1.00CD:1 27 [facility] Procedure - Woundon 03-14-20 Procedure - Wound [id number]#1.00CD:1 27 [facility] Coding Summary.on 03-13-2023 Coding Summary. CD:[id number] Ww+PG hlYWQ+VI2VXPTxS80jtDEcbY2 fY5KJDZfGGnhsGSAEECuGMqEb eiOqCP7flITcEYIn IC8+PK9pVWSwHdrlnZStq3M4d IG3I95gbm9gLSnboRW4MENuDi Wwpmchc8obwIm9SSbwRhbkZeW t HJZvbF84QOF2lG18Uo37gEWyq NSgl8yizZa3AdDoCMAqYJF5zJ urEZsnb4PjASUqF62ruSVmi1A 6 GUKeqVamnQQuLwAmiWG5eC1aN Sbdjnxfa7lwapvzPnq7jn72nG Htu1O4oFG1J2ScbuH5GRKfvEL g VddrrFVInM7rhpdlg2rdqwxiM uXqPKAhVXn5ZLd4EXJgkZtfDq XqLA16YPD3RHXbrhGsW8SoSYA s lHcpDbZ3z1S7Gp8JB7BSAzhoW 1VNTUFSWTwvdGQ+CP30uo36Z8 HoNnztKnu8SMNuDJI2gHH1xB2 n UJCpZViup2S1jCF4F2JeanPmv y0md6ucRVTcOSnyQ14qiCEvh3 V0NJCwgCB3TGWsfIssSdDwhR6 3 Oyc+AYYmmFohd8ZxSlegd7dgr 0hnyEe5OovyWSRaedJfeUayRO I4i3IsCp8aURWwzCN6eXB1oI0 i UsUtJeY3IJzdB953OzPlgJTfR uucV27gO8OwoFG+UASuEot3PS JugXwcZJ7cI2FlABSktkvxvCP m qMvjIE8uZDGlkmapBUJbeF3eX INiB5w3WlBaQjV7SKtxU9UoNY TmuywmWi53pI6bFoNhZnC2MZn u I2TsceN8FJTviZSzSXbnNGZ6U 35ht5B7DXPzQBDiZPJ7jKH5tC 1hbGlnbjogbGVmdDsgdmVydGl j WPchYYkcM832YTBgsDqoFeWtL GluZyBEYXRlOiAgMDQvMTMvMj AyMzwvdGQ+RRBcBEE7sKwdOWU n oXKnINpvBk9ftPlvaFltZE7pD ZAbsbreNKQehZ5xTTMocRGfdO nfKX2zUIVrmldpi845DvNfYFP 0 EEJueBDrM2ConR0iBcKxEQAvQ VGjK0MqwKQjFOzkR124ZXhrQx O0QONyepNfZ9GfKTKogTnjVsZ 0 v1H8Tw8Ev0ZqshprQ3FkvEXxS lVlUwqbTDk3N3UfDyryiCW+PC 09QJFqKG04KZo2PMY0zJerIAv i EUApH5IblZ5yZtYzOJCoQJIwG yc+PHRhYmxlIHdpZHRoPScxMD MgNyItmZhlIF0kEm7rPAFtAXX v gDnefSEfUiCrq7gqFYExVWacL M4fgHboS9SxzLN0BFCpu6v3Qj 90J24bV2XqqWN+JODjvTR4wWM 0 oG3fMmBpTqR2IRbmP839JmVyj NZwNhaag1hup3pusJj1MpB1LN KqaaRdzNcuHRE7i3KuOb38P84 s IHdpZHRoPSIxNSUiIHZhbGlnb i7npG6hBd2+VTPbzGM8dVH5xD 4eAcVoYoG5KTjaZ888XbOntXQ v Mcfca7ynz6faeYo1GnObZNUzd uGvbWefAXD5z1SlAa67K5TrwY tcr1EgDli2qr17xEJtd6Y2mGR 9 R0FeHIVirpgfmHBvfMjiZJ5eX LEheoqqUCUgmE1gHOYfD3t0Zo PxQdD4HAxgP9ZkvkZ4YROslMC g FEPkyNBGwL1mjpjbk6jbikrqD uPgXVKcTYm1YCr2JDNlaXcwNs XhBQK7JfX8RPB7pHJpkJ4bkWb n nosrtG1bSgv+BUB6aEGtfDVCU A6dMsxxdNZ+HNVjKQG0jVgeCS obKRDbnC8kUVPfY4r3YwSlJiW 1 OUxiL7TibgV0ZEHfyWBlHHOhq SMLdJ2xoqfln2fnxklyYyApDQ EcXCa6JBc1FIFhwRjaCpRtWGZ 0 PpH1NNM8yYNiwI8fmUyrkypin G9wOyc+WqcxnPpgKYR6FOx1O1 OeAdb4ZXKnrAcxPD4euLVyAQh u Na0ipRlweYqoSF2qZDKfxxaxd 772JbKzh9coYZMqwVQtAPleRP Y3I02eq7I8INSjWMUgUXJ7nOM 4 uC9zjBtnkmeccXZznWonbxOuf HkuEWwhQIjnJ112GFQumOatYe MqZTw7R8QxCpu4SDBbuOqfBC7 n oYTyVEqpUe9haYgsdUljSQ3lL MPdnmpzi695EkCjy9suQVGcvP DaFJnfXGM1B49id0E9WTFdTQB w OCW3jOL5tO2ojAfrcwjodIOdy SbumpZqkOgvTCqbFCcaO701DW KirUnjRyBkgNn4S4PqEfw2SVC z kPmtTO3wnLSpJTebHa5lzHeft QipOZ1aAPKcktfbu316OeFzx0 lmXFDinYUsWFwrPGC2K28uc5H 6 IOCwLUPxZYO5mXJ1bW3bcKnpv jogbGVmdDsgdmVydGljYWwtYW tvN405CSQsiFtxLxMuaYloriS g SMcwPCq3Q6GqFsngiIK+PC90Y VEaWX10gPRbvMFod3qdyJo3Zi UvTCOmMHY2vNkwBHirp1WwPJD t T68vdMCzo7P0YUByzObalYJyV cZucYD0fA9cCJjjuyvov2tqhy ocYfldc8lwbb83tB99Z85gCCi p SJBiOWCbCDCoUWSwoYhldu1ht G9wIi8+DIAffLU3uIC5nS3sPT NaIsR5TGywX700OcFrgTLxRru j p8upn5kfgVm4ScT6MAOuofDqb QmiLKM5a9KkBb60P87lBLswFL NuUBNsYGOqUSOadBmcpj9edF5 w Ii8+MWPsoDF3sNN6uH8vGiAcB tL1VDyaO889LsEmoFTjDltuA7 2tI6SplKR+WTXtFtn6SBXrlSa s NT9ckHXbCLotTg0aSGG9ObIxJ qKkRLqwQ3PbAUNugbthjrhckE Z1SEDbYWJjbN07Gr6ncPjtEKO w eKVQjG6mmgjsy0egcvkpLkTzI YQsPXl9QUk4VDTqcNufEnLnML A7QsH3FZV4hLWjiD8cpGrkjdy g kN7wL0JlALZvcykjJu33gS9bA eRjNrX5LKwxZzc+VEFOTkVSLC EKI32SVMYgFRidmGL+PHRkIHN 0 aZdoWJltWGGlqM4xOLChT3o0P vDyEgV2JBduA5NgEMSasapoBk 06yY0jWjVdOtT7QCbcZ6JxmjY 6 YNTslEJeWSqeKXQ9P29fa0V8B FCsPFYbXJO6xEU6tJ5atBrmoa ogbGVmdDsgdmVydGljYWwtYWx p Y380LKIyxTweAmGjMqA8NqG6C Zt8Y3XtXvq2OVGhgDfiCV5fwO TaQKbcNx7ucCzjjEvkOZ5uBSD p pbfwCXSvdR4hDNEtpTZcqXmoM H6wTDKahphys009DaJuCBT3XN PmePYbM4KvjK2xMmOtPACuOUC w J5BouICaUXcnX583HJvoFvI0N ZOmdhSeU9MlQKQuzTxaDqF6z7 I8Bh80BAZFHKSctmzmtDL+PHR k OOQ9eHesUZkdKIEabV7aYOBcJ 8h7YuPpUjU7BJujC6WoPDXsdv bhKq88qK6iXwSfCcQ9EHriK2Z v lmG6FQJbgCNnHYkfWOF9Y44rf 7F8SZIiFYQyORD1eNU9gS0taN lnbjogbGVmdDsgdmVydGljYWw t LYxxU109INMqqUzcYl4neGW7V 1EpSpy9RQPtvCqbRU4xbFGcZB uyGu0esNhwmRitYF4rZYHnlss w FJOttM4yLGYcoVDjqCaxRN1qZ MBjumkdd662FzIoYSD9EHPwoV UqA5CdnR1rMxUoKKKhEZYuJ8Z l cACgGTorB503UFdmRwZ0QFAap qNqG2EnUDRyqByeXsB2g3X4Ht 8EuWIkAMKoJE85KG83GC75X4N y PjwvdGFibGU+PHRhYmxlIHdpZ WPcLVzsTJCvWeOfoGrfIZ5dXx 4hSTCaEGUjuVjxnMPuJqHyw2d s KFQdZXxiBR7qqEsaN5OwyBM7D WAgn4k4Pk56D57zW9VozBW+PG YgsQT3kIC2uW5cZyBaImV6EBt p G842AvJxjLEuKwqdc8rsk5xti Py1XtZeCVBnlcMsmImiOZG9b4 UuDl92L05jBZloXCHcYQDuXUL i RIDsqTvpkf8jnE2jQd3+PGNvb LH4jTT6iH0aMvSsQvG7FOfgQ6 92HiJicEBwSxcgJ78fS6KopZE + VBWtGud6MUImoYjjTH1bsKPnD NysJx0rLSB8TfWkLeTwZVnqI2 CkJJPhxzplnymhmVG8RWPsIRL w eS33Kh2udHthFu7eTNKuBTQ6F TQhrILaE8HpeX3hDqSmJWPgMJ ZfI9VjzOStFAsxB408FLqyPbS 7 YJBdojDmP0UhYHJkyWsfKsL1v 6P9Wd7TgJoxcAImZQ7cJyQyLK v5M8AgEmn6DRYenKevHK4fsDZ k RYgnYh2vyIymxQbhLT0eZGVag tywt367FuHcd2hqLEEvcLBbRQ tmCGI2O86fu0V0YFBlNQTbLTH 7 zHO5kN0nxGnlasvahHFzfAkrt mKpcGyfPSpwSNioP262DYBetR kqReXQCby8B7QfGge4GEGsfCw s SD0ajVGfHGpvVm5ubMiaeFbaN D2dHOMtpgfol053CaTdo5ldUW TdzALdSAucTPC4H98ak6O0WQS w PUWnRID3eSP5aN0slTkqpsufh GVmdDsgdmVydGljYWwtYWxpZ2 31HSSogXrnMv8VQec5B7JxFwo 0 FJLgqEsiJZ3haHMbEZzdPv7xz OcvaFblTH1wBRHvprhpd890Nn Qxs3bwAINnzCGpYGdgMYZ7Z55 s q5G0HXIhETRoSLB0xTD9eH2ez GlnbjogbGVmdDsgdmVydGljYW jlLTxyT306GHXvxMxhFvTrqIQ y OjwvdGQ+KT52yx86K4AwVksdI ua8NIMzLKX6rTO4uK3cXGMfEJ kpi3I6sQL2V2HfnlCkvy5ef5h s YXBzZTog (more content not included)... [facility] Multi-Wound Charton 03-13-20 23 Multi-Wound Chart [id number]#2.00CD:1 27 [facility] Nursing Note - Woundon 03-13 Nursing Note - Wound [id number]#1.00CD:1 27 [facility] Consent for Treatmenton 03-01 Consent for Treatment [id number]#1.00CD:12 7 [facility] Coding Summary.on 03-06-2023 Coding Summary. CD:[id number] Ww+PG hlYWQ+OB2YBACdD65bfLEjeK0 hY4QHAZpZDjkqLHLRQJnEJiGz jqMtEY3xaRSvGFEu IC8+LE4xEFBjBjugvDSgt4X8u LK0X00qsn7gQIraeDV1XZVdSg Ybgrjai8fueQq9QCycZdtmTyP t UYIgbO54LXP8kH76Pn04jYYvd EQpc4hypBq1SkJdHSFnHXK7hK tkXAlyy4SyAFDnM30jcFLwc3A 6 ZTNrgVwwzDQmJrVzgXU5pS4fC Hxtkamwu2tcwnxnUsh3oh76vM Gof6A1sCT2P4MxxnS0IGFruEV g KagimKHNyM4zlbsab8nleipbV tXwSNUbLRm3LOh3DAItrIuwWg YnZF52QJL0LLBzyhImI1WuSZN s kUnoRgV8j6C4Yr8DQ4DARaivF 1VNTUFSWTwvdGQ+PP26ja03W6 VlRydbOkg5YQQrEQH1gAO8tU4 n YSKaZDcxl5B8tTY8Y9CusvHps b9dm7pdRKSsTZrgR30mpLSes8 V1WDLyiGY4IOJazVjdDeNryZ4 3 Oyc+CTJcrBzrz3AfEdqks2qii 3ueaOg7JqupNKSlisMrcVjqLI G4a1JqEt2tLXCdfDD4bBL6lQ4 i JdFuMfO8ZDauC398ZrYtfSCzP xuxR18eP1SndSP+HZPxRdu4AO DjcGnyGG8cT3FjLIGpoqtcvPL m qNyqHY0jQTAikwuzPMKsmQ1dA VNdI0z1VqKwMzK7VOidH2WeCY RlblduOk13nP3aNlYrJwG9NGb u H5ZzmaC3KABnlYJsATyiOSX2U 55zh9G2YEGhVMTuAUL4zWL2tB 1hbGlnbjogbGVmdDsgdmVydGl j OEdpXAhiB712LLAueYeoOxOpC GluZyBEYXRlOiAgMDQvMDYvMj AyMzwvdGQ+IOTqJWH2fMvgBOT n uJNlBGioHj4hyGxfwKbwZE1uG LPtxohlJLUesY7bNBJjcZTroO iuVE0uGBInosvuk654RwJfXLP 0 HRHcuFVvT4KhzK8zGfBvGDMdG KYqV8JsqWKdVAdhV297ULhpCm T3EDOtvcPvN2WgILNwhZuaZnP 0 o3U6Or9Sf3VyzhjlP7TuoQDaR wDnEttwZDg9Z3HnNqcqmFE+PC 62GFXaVQ21NVa5YUA6xEleMRn i OYHlK3OazD2wWgBbNCKdZAFfH yc+PHRhYmxlIHdpZHRoPScxMD IzHeYclBagSC2yHp1pAJBxKEM v jJhsjRGiSlAxx4gpYLHlBSblE W4tbWnmV1OhwDR0DNTpd8d2Ud 14C98qD8ZcnLN+GVOhhNK8yEA 0 gX2gMyGzEoE8VDccL110YsOha XOdWnalh4mza9lxjJg1YnG1MF KmhdAgiDxbYQM5o9PmPx39V93 s IHdpZHRoPSIxNSUiIHZhbGlnb h9btP1lJz3+FEEegNC1vGH5qT 6bOqWxUuV8TFbtJ010UbEstBH v Ohqeh5rnf7dlmFj8UdGcKANxb kZuzUunJFK8y4CrHr54L4TroO can8ZgFln4fr97pTZul5T4kPQ 9 E1UtQBQswdzagKCkeNifLL8lG ZDiozgbVVAejL9fIEUjR8e4Lu TwKfH3TJdkL1NpmfK6TVSrlAI g NKWdbIZVwA4kxndsx4skzaqzP zQiPZIyWEk4QVl0NIEfjWkvFu DeJJP0MgW1LQF1vRKpwL7qoCh n hodygK7kCok+YXC8mFWdgQEZE B3hWkmtxCI+BBEiUGU6tIzjAC qdSPOxhT1xQLIxK0x5DvUoNkF 1 PLnuX1PxgiY9CCPktKOzDYWwn OAAsU3nythxf0qbuegmFmOiHB QcCXx4JRq7NWLqdTiuSoBxHFF 0 TnC1BFS0eOQcvF9zrAnljnmhw G9wOyc+HfxueCqhDSZ5RXt7E3 MzKkk3QIKwqVdeRI8gqNLrXQb u Zj7lkUjutCfrFN9fFESqwrdjs 470DaBde8tzYQBmeIRePEbmKO X5P02kt8I3GXTxHIVcIZL1eZP 4 qF3ozZymbpprxDTtaGvdobRuc DncRGilIVsoK993IYJrwLkwWd DcSSr1B2IyXsg3WLVkmXtbBO3 n lAMmKZmjOv3qpReulMotNZ3jZ EZotyvqp755JyKyk2ymNNEeuU PpLBehQBA2L80rj4P3DGNcUZX w JFD3eLE6aK2rvTsidcznjTDtv DjjudKxcXdxCBwlKAuoG746QC XayMjqEqBnlOs9C7IbQwx9YVO z jFfyVG7faPUxBXvoLi6ytVmkg ElrTW0oVADaoykcd080YbFmd6 wxIUNniKYpPSjcBPB2V51ib8R 6 HITgAFVfCQY7zNN0eY3jqMjqu jogbGVmdDsgdmVydGljYWwtYW jpQ712ZGZfcStfWjMjuKomwtK g REwsTNj7B6HqDlgqtGR+PC90Y XFbEO96kTXwtYFrw6lscWa9Fj NtEGHiXYU6pSxoDCfaq8RpZWO t F49ptJFrj0W9MZFqrKwnbGJjB aPitQP9nX0oSPlywzdxh4kerc chOhplm7bmwl67aW50U74tMXv p UNIjUPKtPARaINXjfWmjwu0mu G9wIi8+UCQdhVR8cWI5iU6oKH ZeNhE9ULxfV207MnWzhSSaVyw j q6nuq6qtmLd6SrD1QJBbqzGlx RgtXJP9n9UvBg57S74bVGunQT CiIJMzJRBiVMGzzCkkte2zbG9 w Ii8+TLZwlMV0yWV5vK7aOsIaK kS2TYmuA798SmSrlYFeBwozI7 6rI4SgiKH+UTDlUay5NJKalRz s EG1wdEZcBNznNt9oRGN9OsQeM pRjGVmhM8RcWIEzizlmhhqoyF F6HSXqKZIbaI71Nh2icLjvCFF w vYFTjT7ztrxam2ereeuiAfVlW YPrYSa0TVp6PAFfmRxtCiOvCG Q0RgX8WUP3bJDfxH8ouKhspxu g eX1xG5OkPJMlwnwyZr83aI3xP wHrElE1KXtjZiw+VEFOTkVSLC CBI79BMHXrFZjhcVC+PHRkIHN 0 jOlhPLzhQSYuaP7mSKAhM2i0C kTuIvY0UDyiH6XvCHVjyamlBa 62aT3wVrBbKkR4QHqcJ3KqlaR 6 IPDdoYIfPSiuYQJ3P03mw4K8C DVtYDGoMRK0jYS4yU6siSwgpu ogbGVmdDsgdmVydGljYWwtYWx p R161WPBfbPynCuVbIrK6JhW7E Kh1Q3TxLpn6TVHbrBqdBM2nuD MfOUtqXg9eyAyelWqdNF6fZAV p pqijVLYokD2gLNGagYPxvLtlJ K8sMISmxyaeb189IyXePBZ0LH NuzLQyJ1SvzS4qJfGrBBDsXXN w F4SftEQgQUnqB930CAqhLkU4X LSlaaYpB8AbJWAftPfyNzO5y2 B6Qd28DUBGXAQqlxalvXL+PHR k QBX8lNwfMYaoPDJhiH9hHRTgT 4u3ZtEwGaP1OUmoY6TcOWYrlg ixNg40aM4wCaJjCyX3CGyyO1D v xzR0BKHfzOIwYFvbZWG1M32fn 4V7SKMhTAEmOSR0wQV0sM1inH lnbjogbGVmdDsgdmVydGljYWw t DRhzS879XXZpqDtpRc6hgLN6G 7MdFhh7ATPqgQtpYU8ffWRrBA bzQo1xtPrjqWfaNH2lPEOqgnu w WRJweC2pZRFvwQImsXrhHB4uE ZTtzrgsz032QoMgDGC9EUHmcY YlU8WyjQ1kCdNnWRArEJHdX4Z l dNFsXTcvP738SRmxMoV3TCKfn mZcB1FkTTJrwQztExE4f7N3Pp 5QyIYgUGXoGR72RE98BH40G5B y PjwvdGFibGU+PHRhYmxlIHdpZ QDvVHygBSQbUuJwzJgrOA6gJz 4oLSNnZCVkfSbmrLOuRkElk1o s EFFiCPnbGU9pyMakZ2LauFK3O DKma7t1Sb37J32gO4EvbUR+PG MfkVI5hJE4cJ8qErXrBzR7SCk p W424GuRkjDZaSveiq2sqa5etl Cv6UxQtPSRndrKmlJjtKAD0q6 LcKn83A43zPNicCCXrGQUzOFV i YUDdnHrbhs8jqQ4qMi3+PGNvb QT7hVG7cL1jWyPwTnI1UKzjZ8 51PeIclYVmXtzqG31rO1LniQB + VXKsFeh4MEJhyAbnKU2xxLFrH WryNt9fUJC9VhNcXwDgTCvnK2 InXDLlftagwqvptEL1DHNnXJA w fN43Bl3yhMoxBu1dLMUbQOE5R BCujNNwA2EqzA3eZrWjVLBtRL PrB2JtkTHeJQnrB526HOqsKlO 7 FWXnjzFmG8LfANWanComZmF3h 6N1Cv8LtPaqkFHlYZ2sHoXkEM n9X2YxAlr7RKMcmFwnAZ0deEN k COljYp8dfEcypLmbNN9hLERws nsfz822SyVkw4thFTRykWGnXF rdCRQ8P07up8E0XQNoBNIrWFH 7 zQH7aZ3kyVxzlpaynITlrKrvq kZtqBppGHmhZXcdX732JXQpmS stFdYWJrn5A3SfBzl0FJSeeIg s JE9vfHNqHDwhIz9rbTyrpJwsX G2nNKUvcqmyl192VlLji7wuLR UnwIOyZSkuGXN5X86oj1K4MCW w DVQoVUW8aBP5gS1ftHctthggf GVmdDsgdmVydGljYWwtYWxpZ2 17COVljDmxYd1XYwl0R3CgOuw 0 GPJnoAzjAL1mvJJzDLvkQh4ng FixdAykEP1jNPLqxoend037My Hmj0voQRIiiYDtBQzoWIC0S53 s w1P0PGPyKKRhEXP0xHG5rO6ge GlnbjogbGVmdDsgdmVydGljYW heNAuhQ266BTEhdIpvOfLjsTQ y OjwvdGQ+IN04rh66O3BcIbijM ud2ATSdMXO3fQP9iS7tCVRaZK chj9H7hLY4J9ZouhMgdr1ge5z s YXBzZTog (more content not included)... [facility] Nursing Assessment - Woundon 03-06-2023 Nursing Assessment - Wound [id number]#1.00CD:1 27 [facility] Nursing Note - Woundon 03-06 Nursing Note - Wound [id number]#1.00CD:1 27 [facility] Consent for Procedure/Surger yon 03-04-2023 Consent for Procedure/Surgery [id number]#1.00CD:1 27 [facility] Consent for Treatmenton Consent for Treatment [id number]#1.00CD:12 7 [facility] Correspondence - Woundon Correspondence - Wound [id number]#1.00CD:1 27 [facility] Multi-Wound Charton 03-04-20 Multi-Wound Chart [id number]#1.00CD:1 27 [facility] Physician Orderon 03-04-2023 Physician Order [id number]#1.00CD:1 27 [facility] Procedure - Woundon 03-04-20 Procedure - Wound [id number]#1.00CD:1 27 [facility] Progress Note - Woundon Progress Note - Wound [id number]#1.00CD:1 27 [facility] Coding Summary.on 02-27-2023 Coding Summary. CD:[id number] Ww+PG hlYWQ+PT1YKYRuW13ukJKzjW6 aS3RXFKeHSosfEHFITAcHYyLi txYdFP3qoYQcSVGu IC8+RD0bYWLdBegerIXjb1I1x BR8Y33djg3gTJbdrHQ4YUThWc Lirrmhd7fpmHc2OCxkYjwvHdI t ALVmwB38NXA3oX13Qk04kUNby GAid2jpzYx4MkNtMDRmMDZ5dV owQOsxo3UwLEVlH35rxKAwu8K 6 CYFbkEwhoEHzEiNjlDL9oA0kF Nwjufmrw4nonwknYkj0ib95pD Blv2J9nFV8T6TxwjV4WIOxlCH g RctckRROfI4phgxnw7htghfyW pIuGFVeBXq6GRf9FCQuyWqlDe JoII06AUI0DQQptnGwX6KcOSZ s jGbkOaC5h5M7Tc2BP7XDZgntA 1VNTUFSWTwvdGQ+XZ89jj20S9 XuUbsnFno5TNFcQKP1tOI0eY0 n HCSkTZjto4E7zTZ8N4AuyvPfg e7fv0avAWAeOIgdQ66qtVGvf3 P9IJAtzCJ5CTOakXhjFySjtB9 3 Oyc+VFItvQoxs0ZxAwkle1gsj 3ocbFh0VpblRITjvwBotFzxOQ F5t3RmLs9gYNIixTG4iCU1yV0 i OoLzPyG7RVquQ035XcWapLBfL aglL70lK2WngCI+YPPqDlh0JV IsiErdER9hX9JbWFTdslbdeVP m gLzaWW3bFVVotapcXORgkA4uN WEoE3h1EuQuOrE3LNxjO5YfWY MahfpvTx45lV2vWiSlGwM6YGj u X1LprtN8RDDqeHVxURqoQXF8N 88tt5H2OQCeQOGiURB7hAY5uL 1hbGlnbjogbGVmdDsgdmVydGl j ABiiJOiiF783DIIczUgeOwAwN GluZyBEYXRlOiAgMDMvMzAvMj AyMzwvdGQ+INYfHYH0cTurOWK n lQArIJmnKh1qjVngkXjeSZ3gS WZvokekKXMszO2wWIZvdEXtfX pqOC0oYIJdxwcaf673XaMjZKF 0 YTQioZCgQ0PwqH6dRvUuKDRxD YBwA8IdtCTfIJetD864FCzuZo W8PFTcxnMdB4BrPNJjqWvjEnL 0 p3L1Yr6Cx1GdotqnL7SxyXJzM rXvKiajZNy6S2ScVjqaqAU+PC 01HSRqCE53PKs3QDZ6vJkbQAs i OWUhW7HdxH6zTzYmFNPkOZIuW yc+PHRhYmxlIHdpZHRoPScxMD JbMbFxbRazTW5nVf5jDCHdTGU v gIuseHJrBqUde7eaNLGeUFpdQ R5zdYziE9JmtGG6PBYkd6o9Is 88T04kB9MlvYO+YERurCE6eWT 0 jZ7cPvDdJvU7VGczA861TmQho VFbDvumh3yjq7vasUf1JaT3RG VpocDjlMkwTUR6p7LbSm00Z48 s IHdpZHRoPSIxNSUiIHZhbGlnb i5tbC6dNq2+RHApfJE3hOF4wI 0pKfBhNrD9SJkkK702EjKmjET v Njrze2caj8zvkCi8LgTpEWRbx oNdfTtyDYR4j6OaRr70Y1NrjB cxf5AbBjm6nc95wWNcf4A0vOX 9 R8MnYQUvedmigQBbeAziEU2pD VEtjbaeEKPwrS8dGLThJ4c6Vf FxVkZ6RKlqV0PmesV1XROoxUC g PDOrwMLIiW0bfmrzk5cohkcxO lJeCHDmTMt5LSm8MPMlwLdkEw WpCLA3VrY4LCQ5xMCkbW7ybZm n clwrjQ0zWoh+NQO1gZCaoUOHD S9yHydkpUK+ZJXsNCK1bIgnEG puTCImcI2fZYGtB0z2AvUeIuR 1 BUwyP9SbaoE7FQYjnHItOJUir EOAvE7repqoy0iujvrzIuOnVL JqIHx8LYr9XDCteVvuDaTnMJU 0 QjL8THT6aYBjsG0ddBfqaegjn G9wOyc+MpgsfTadSBL9GXx7X0 PjTll7JLQblXqdHT0wwRIsMSk u Ar7crIjblYxvKK5cSHYplhgyi 849YoDik4qdQZYafBSnBFhsPM M5H90nf2B0JMQuWUNvITR9fSH 4 uH2qbOcoxinnlPYasHafscMon NgqLSvgDSfnW210MMSnqMhrAm MfQEo4V6OnUhz6ZDXxzViwRT7 n nWWzPSrdLr7hnVwprUymTU7lB EBlgtcna907WeZag0ceASBamG LiWXsxHUE7X54xs6E3EMKqHOI w XPX0sXE3oX8tbFvkeneqxPYjw SsfoxYfhNnwEDzyVEnxU507WY WlxFuuLsLwxUi1U9VaNtn9HWW z hCxdXE2vdKNxMGjyHz2lpVnbe FhjDQ6gHFQsbklvr261OnGmm4 ccNWDqvZMiXVghKTW3A73bm6S 6 AGJeKTZfASD0sZC6lU6gbTxfk jogbGVmdDsgdmVydGljYWwtYW juJ164HPTncMuoKdUluZmzrbI g ABsdYTs5V2KcOymwiZX+PC90Y UHlFI68dHDxwIPtw4hczIj9Xm QbSDVhMWK9zCxdKImyp3ZpGOC t H01seACkk3T9FONuvKtpzNOkY hAkuFL8nB4cFXhhbcpay2gqod wuZmxij1eguc89fA95M52qRWh p TSMlPWLdKGJtNOUnzGastw6xq G9wIi8+XLAatSB9dID3yT0pYR SoJkL5EGgwS863UiDuwREyMez j j7uzj1smuPd1CrH8PVHjkvPxu ZvsWBZ0s0NzCz07S91iBLegCE PfIOXpAWLdITRxoTwcts1cbM9 w Ii8+IKTbpZL6bZU0vJ0qDuKmP mI7MOkgC629YeIgzFUmUltuZ3 0sL7GmwHL+YBIzAyd7MKCasGv s NX9djZHiEQatPk6uZWM0BnFxM aNeDPstN2MxUMYddtrhlzvyvC C7FHBbBFBrvF69Bg8euQamGXO w zEAQwH2yspjvr5cxsptsFkTkN XYyABy5ONp9YRDgyCmeBrArTM V4KrN2DAO0lHYsoI7fhEagaat g bF5iI6GjKBXriipqGl77vY8iO aCmZcF5WOjaWnn+VEFOTkVSLC FVX59MGGHgOGsesXG+PHRkIHN 0 tPclIFevPQWfgT3xFYTaA1p2X cXtPeA3YYikZ0WqLHPsmquyZz 74hB0tLjZiTwK3YCkjH0WnziB 6 BNQxuOXgMHbaBOY7U59vo5C7G HTiYQXoWGO4kRX0iY5iuZrbqh ogbGVmdDsgdmVydGljYWwtYWx p W717WHOafMzcMjSuQcR5ZxS6B Ok0O4TvHqo4TTJtnUzeTG8asI GzSZcmOu7azMealNinWX2gFLA p hyrnVWUrlP4sKGXmwXKtnOwtC A8xYYNyhsjgg906YtJyCHU8FE LhdHYcC5IzyQ2aNrCuIXAmVWX w K2JcrRYpDKfhB005YVenHeG9L LHppwEzQ1XkGPYedAtlPeC3v2 T6Bu89VFBLVBCrbrcbjUU+PHR k CIT8tXxiIHjnTRGgeN5zJSJqR 0d6QuSuWaB5OCroT2QsCNEopq lcAt33bR8fKsLhYrB9VMjcE7U v roY3EZCjcMCqUYrdTHM6J71uh 3Y3KXTwGMFjRSB0vQG1hB4ecT lnbjogbGVmdDsgdmVydGljYWw t RVxwH112JLYksVjcDy5seFG7F 6PmNtn6KBXmoUvyZH7raYSwJE flNf9kyDgjyAnkXU4hWFIrzqy w MKJhoD0hJPHlwXRhuAnbED6yU MLbecdtv770VjXhKOX9HUPhuM ToB9IssD3kUdRzMWDtKKXwA3N l fWHgPBfnV350VAfjAgN9ISRns kOsO2HzLGDnsLeuYrY3v6C9Mn 3DhDPcDQKlZA85NZ13ON04O1S y PjwvdGFibGU+PHRhYmxlIHdpZ WWaTBdgSIPlYjWbjXauSG4cIx 3lNCCzPKDcnIcexWPtPuRnt4q s PZTbKHpuVG3bvAxeL9EztLG2W HTtt4i2Az05T71cY1YhuOV+PG LjiHR2rEJ8bP6lJvJiOoP1JNh p P463LxNmxZFyScxkz8oao5exo Jh7RjGcBGSmmhLoyOjcXJG2c9 KxWh10B03lWSreOAHjLORmUSE i NOUdlWkwgt4vvB8vUg2+PGNvb IP5uFW9vY8pLaZzXvI6QUacS9 42JxWaxYFkFiitW94oZ7ZghVT + JPVhOge7AYJqoGayHS7omMUeK QmcEj3iVJP5EfTaPuGnKLtxK9 SwNEFhlkjclpuxwYO0GYZqCTH w pF96Yb8vbQzjHy9eIIGuPDM2R SHywCVpG6GaxP8nKzVlJJHpXI HeO9IyqQDbZGvuW381WInvYpF 7 TJJjajGgP5QhIMAjuMorVdJ1q 8E6Oe7QmOzfeMAlYD8mKcJdXR m8H0XdDkn4SFAcnOtsEQ3hmHV k YFasHe4zrNfcgFnjKO1fACCif jyqn565NqEqd4moSQVaoOEiIY vlAFB0P69ro0W0CVSySMPxNSU 7 qIM0oF0xsBmylhmtpRDhwKvpq xJddTakMOexJZpdY751FBWmjP xjBfGZLqy8M8DmPhf0AGGosSk s GY8wfLDfKBveVf5uwIhjsOepK Q3aNUFomrzpk940FuGso7ieGA KuxPDvDSipIKC8T05zp6G0KHO w YTBcBPB3qFC6lI6sqUcedcxok GVmdDsgdmVydGljYWwtYWxpZ2 86XNBujRwsJo3CJxp2Q3WcPta 0 LWWjkEhnUZ2zgANoAAytDj0ze LvynCsbXA8yBQHauvnwp609We Bdi1pyFYHqcBNgTAuqLST4K15 s t9K0AOQeTUKjNID6aPX0nJ0oh GlnbjogbGVmdDsgdmVydGljYW rmBIsqP640QYApaYqnVsMfiAY y OjwvdGQ+MG53kn08M4GwDyxjU nd9ILEeSQN1wPM8eX0lGIHlOC xzi5P9bRO1S9CdtzTvzx8ul0q s YXBzZTog (more content not included)... [facility] Coding Summary. CD:[id number] Ww+PG hlYWQ+KH4JWXRbA02ygUVlqL4 lL2UXVTkWUxclNDTUICvTFkIi zlBlAL7oxOPeZISe IC8+HR2eFSIpQfykjJUhj4O0q ZN7Z39dlk8sNJtvcET8RHMfEy Mozledg2vnsEp1GBcfWgqhNgT t HEIeaO64STZ1cD85Ut65eGGnz NVgp8qchKm1GiUdQTLgNLZ5eJ cnHQffq4ErJOTsL88iiAHhj3P 6 XKHfuQvqvOGtJvQrlPO5aV5tX Eopirieg7fxetsaPnm2sz75dP Nrd9M9fLD9H7HtppL4ARHhgFH g LmyhoTUZbE2nmdeeq8gfjlwgS gUwXUVpOAv1XHr4UKJpaMmqVm DwDD47UFQ0PDNvxbUcB9KsCLJ s nYqqAeY3e3J7Sh4DP0ZUTsovF 1VNTUFSWTwvdGQ+QW07tf25S4 NiGnbeHjj0LOLzXJF1qEK6cM7 n JVIiCSzgi0O3kFY5F2LknuJpa y0in5mxUKDnKXvoU14dhAZke1 R3YACllPJ4BVDjiRdyPjHblA3 3 Oyc+JJEawQsdp8MsYzshr7moq 1aggRq7VkwzSSGnecYizHcoLB C5b4EeTt4tHDAwfNW1zKK8aP5 i XbMeCkP6OTxmG588UeOxrWAtV ixpZ70iM1QxuCA+GAWlNtq9ZT QqnQqdLM5tZ2LeCWOjljnjsSM m iVwyUB9mEVKcfzucQMCisU2aQ DUkH6c8LnNlSrA9ZQnpM6FdKR XbdhslQp43vA2jZdRjEoN3ICv u S5HpkxS0RSDbqRIjHVppRTD7V 60ja0A9UKHkRHJiHQD2kXU4bB 1hbGlnbjogbGVmdDsgdmVydGl j QXmaJQmfX173YLFbmDokHaIyJ GluZyBEYXRlOiAgMDMvMzAvMj AyMzwvdGQ+GQOwHRJ0bZknBHT n mFTdKAebGf6tkMstlIkyUL7hF DZaelvnYZXrjZ5jKIEqpMKeiE jrUG1lPRLsbewma230OsHuKCY 0 MPOjvCYzE9NbeZ4fOpMcSHRkM MQwZ5KhtMQzXRlkR949JWdiLq W4QLLlyuKkG9AeLHNxrCqkSxT 0 i2C7Xs4Mq7CpewjgC3JxzAOwE qAcUutkOIm7A8QbQlwwnUM+PC 11SBLgMO06ODf5QEG2sIxcXSk i ZSNdJ3YhtS1mCmWyAXJqZOOgN yc+PHRhYmxlIHdpZHRoPScxMD TtIwXiaExtAM4hFe5pYICtZNY v oTdabSOgIyXjw9alEBCgWEmlH D9omAfoO3OnvGA8IOIjm0w6Qm 03K67dS8ZkrBT+FEGmgPC8mGK 0 kF3wFeZqMnP0RAkiY778IbTuh NRkCsowu1zye2wcmVr8MsN7BZ JzmdIuuFbiKFO7e5ReIa29Q07 s IHdpZHRoPSIxNSUiIHZhbGlnb v7ufU8rQe3+MPRelEY1sOB1lL 0pXnYoNkV3PBdoN830UlSjbGX v Ivipj8bla3gheGb1FqEqMDVyv cViaBftYYQ5l8FcIr55C2MsgU cnx4AqZfw1nc51bREer7V3mYZ 9 Q8NyLQQvnsjwvLScaGtcIN3bX UVvhntcTSJlfW8wRGVoL8z5Dv OaFoK9LYauU2VrqwM1ZQZjoER g BXKreRXYjH8zsejko5wrvqiiR vAmKSNyVTp4WVl5DOWnaPiyXh RcNHD6DbV1HUG8uGKyiH8nrDe n kvuxnM1uWdk+HGJ0qQQcuLKSZ I8aXhtbmXX+QPCeCJO3qFbdMR cdKMKtiW6gTFLyW9k1DmToFqD 1 RExaP3EoqlU0AYKcuCZfEUZti QSVtB7albyes3ssnpkdXfByLR QmOTu4TRd9KIHmiQzaStGiXXJ 0 TaF4HEO2kODseN9hpDdlfgsic G9wOyc+PxlrcCzgGNB8WLc1H1 AnBnw5UXAnfVvbRN8emYMzFWd u Fc4dkBqjbXqbBR5kSGDipzupo 578TyJdo5ocVYVegAIuMLgqHG I0Y12hz1B1FZKwUHWrSIC8tXG 4 aI1niKecfklblJAlhQxxysGcj KwiZAdjEEpeQ627JMIxsVdwZw MuZEj0X9McYaz8WSRgmImbGW3 n wUUmZXabPv5bwMarpSfmXM8mQ LMiokdje235UvZpp8enNVNwiM AwTQluHXU2Q49kk6S6TKRfSQP w EEL4pCQ7cY0kyOnrmmkeoCPnr PbtixXboIdeWSomOKqkW214JF YvkKtgBqZhvGs7M7TbXis1KQO z sSzeMH3dfHZgSFirBb1vtDmng UtuEO8yBNGlpekcs297CsUvy1 nyPUTtoPZaOJgwKOT5H67hm1W 6 AMFkKRFuPJS1kQO7nJ3ttOfwx jogbGVmdDsgdmVydGljYWwtYW llS346ICJwcFoiIzHbqBxlynV g AVcuTNs4R7HmYfrakDT+PC90Y OPcEG68aQXqzTZut5rgpAh7Ac ZdXZYnJEN1eJttEZqrg8UeSOH t X09zjHBae5X7CHFzsUjqkBCkN tSyyUM5cJ0sXBdrmvwfi1dobx aaKcscm4xkib37kV19X52hEVq p CCZgKPLjOPNsAZKnjAhiga3cq G9wIi8+DVRvdVC0yFD8tH9gOI DuPnD0HSxiC094IaBsyGMrOhn j z7qpa4ltdHf8ZcY8GGUrvhZax FocAEO3k5NbVv03D53qKYqsRV QzSTXaGWTmPESmiNdkgn5fxX2 w Ii8+MWNbfXU5cUA4dL4jBmXpZ oY9BEotU703KvIgrJUvErraU8 2qB7FnvPV+SKTsLeb4IGDucJv s EI1dxFVdUZjcMk8uPXX5NnSpF zEkVFkzH8BcDMUpzjzvrybdjP V7JRMvVIWcyU64Io9tnYolWVZ w uAXYmF3ovsspq7czkwaeIfKeI JBqYMp8QJh9VEXpgLhdYvLhTK H2NjL7FWS0nZSiuR8cbNamgme g gS4lF0BjRJSlkycyTm28aZ3wT wTdZpR4CDzqRdr+VEFOTkVSLC HTS23HQQTfKIdadJG+PHRkIHN 0 cLsvDOxnQVGpiB6zWEEzF2a9Q pEnBiX2CKnoD0GhMUBhxgqiUo 68gN2sGpVtYwY0GZafQ6YoppB 6 ZFOwaXBwGNngIIN2V63lr0H8R JGjYXIdUBT3fBS9zX0wdCkiri ogbGVmdDsgdmVydGljYWwtYWx p Y464NNUjbAmlRuPxQbZ8ReD8O Wo3M8BkTdv7EOKldQfnZK0fkD ZvBNcbRz3prRueoRxyKB2oPNZ p cicuWMFneZ7dPBEjqWQsoBjyU N9xAGJfpxcjh841MuEkRBO8PZ GpzGEtA4FwbC4tMfOnZMMxMGD w N2RwiWQxBQojE629PGobArP1C ZHcsuIzS2UyGJGldUucJhK8e2 S3Ns54IUTZNUWhsfbpzJF+PHR k HHA3wZsgIUvmTDAlhH3sGJDlO 7b9SjEmCfT1TYdoE8OzNOKvwt ssYn68nI5zOqYaYyJ9MJiqM5F v zfP2JMIcxNRiIZxuWWA7L40fz 7M3TNOwMMSrFRR1fDR0uT5muW lnbjogbGVmdDsgdmVydGljYWw t OYtxR981VRSfuTzuYs6kiXG9R 8UeQuf8YHFhgAutSE2ghPUzDE vcNx0wpWisnNejTA6yRSUwedw w TAEvbP1oQOOvkZYblKbsNJ0vQ NYtktipb052MzOnDBJ8XPUknP WgM3KowT2bBvNwXYIrPMJaB2S l mBLcFOknI282BYemRxA7XLBcl rRwT7ZjYPFshYhiNfY4j9Q0Wd 4GfCBfPVSnCY18OC46FQ67I7G y PjwvdGFibGU+PHRhYmxlIHdpZ NUcXLxvLXKlAxGuhUcsCM7sCu 3hHPEpIQHehYxnsGVzPsOmz6n s QSGvAFowLO8imChkM2JmzDI9S GFjy5o4If80B95pN4PknVB+PG SsdYT3uKU6oV1aUhUnIkL1TFh p H466StPceNSnBzgvd5nso6dnd Dc1AjJiLMArepHegFhaCWJ2c3 QkRm32U12kTLlqVJFxTUUnPEK i ZSTaeSflxx0jyI6jEf1+PGNvb OQ8rKW6qU8pWoVjAdH9HBcjU7 82ReAmrHOvObiiV70cC7XjiYE + AZHpZyr1YJAqlSsfFJ7btWPkV ZizFj0pHHP6ZvDhIkMcTFdgN4 NoFOUnnktmncwhmDG5MXDpOLO w cX09Vf1wuAujOc7bSEXmVWD5P AJwfNCjW0VqrY7nCyFzCOCpDN KcR0ZndBSiMEydM407FRzhPiP 7 ZSDfncIjG5GbHDYowYvuClP8m 7V3Rt9YzEoaiXCiCR1aWrHcJQ v7A0RnGyc1STBavVheTU0ygAD k FYlnPm1stXrydOpuNA2sHBHfn zzvl902NfFyt5tnNPEbhFOvVC bgVNT0L57qh9B7PCHsIRZfZAO 7 rLL5mX4evPnbissywPEixXxqc uWvhKcuBYxgMZywE978HGDplF rhTpHYCtj2N3PkBoe9FVGruTy s OT6fpGDoYZhcIo5mpNjlgSznV C8kNLKdlqzlp243NqBit3wcEB HkvBZfUHviBVA6O96tw6O3FPG w FPVmJZN4bFS4tM3nmOkkghiwm GVmdDsgdmVydGljYWwtYWxpZ2 80TKMbmNjzSn4QDof0T6TmZya 0 MRPagZzsEH6weEDcLWeyGf7eh XlsgIzpSN4xTCCxlqbki261Qy Gdh2haNTFoqYYrVRwgLTP5O99 s t6P6YAObTRHgFEE9cCP0qK5ag GlnbjogbGVmdDsgdmVydGljYW vdWCggH228HIMabKdiNgNzqFY y OjwvdGQ+XB31dt10B6XcQgueL xj5QTSpKYX8mEH5sU2lPRYoVU unv6H7kZS2U9TnupLilz1zw2v s YXBzZTog (more content not included)... Normal [facility] US venous duplex LE [place] US venous duplex LE [address] [address] Ultrasound Report Signed Patient: Yousif Aguilar MR#: [id number] 875 : 1945 Acct:[id number] Age/Sex: 77 / M ADM Date: 02/27/23 Loc: Room: Type: [facility] Attending Dr: Perlita Reno [employer] Ordering Provider: Perlita Reno APRN Date of [...] Lonnie Vasquez MD02/27/2023 4:25 PM Dictation Location: [place] [address] Tech: Maureen Denis Transcribed By: TONE 02/27/23 1625 Dictated By: Lonnie Vasquez MD 02/27/231623 Signed By: 02/27/23 162 [facility] Coding Summary.on 02-26-2023 Coding Summary. CD:[id number] Ww+PG hlYWQ+LM4TGHOlN81uyXCkgG2 kI9AIQElVXpiuTNBUIIdJFwZr hcQzIR0djRIrTJOx IC8+IJ1tQEBgHqjxnTMsb1C4w MV8T26pqf5rOMcmwLH7GRMfOu Ezjbljr3lrfRj9AGduXvjgMtU t MHAsyV14VJZ2jW45Tx30lUAyz JQri9qsqEf2YtCwVKRoNAH0hR biBDgbu5AvFCNlF66tdSGrx7L 6 URRqsSkurEKbOvPmdJZ5iY2nV Frklmvdy3vkglspWxt8oc30qE Etq8I0gWN4W7RlulM0NAWqhWP g CdhusUNAlX0bbqoio4vtpwaoB qMnHGXcBAt6ASg2IWVfkFrxVd NvDG61ZNE8KLAeoiTbQ6DeFTB s cXauSdH3c6E9La2KO7MHWfoxK 1VNTUFSWTwvdGQ+UG48ui88K1 ByRmgeSeb7AFYfQTO3rUX0lG3 n SMGtFEdns5L5sJK8O3AadkBav s4kl4ueICCgNNswM13kvLVlr8 M2EENafFP4TQLqxHcfOvGoyQ3 3 Oyc+ERDulLvij1EfBnboy8hpa 9ezjEo5IjevNJLhweNsgWcuLQ I7p3SrDk8gWYSjvZN4nMY9cD4 i QrEuKtD4DQsmP428AuGtzMLzQ vbvF58vA1QkxED+HCMmAgu0KR DmcVzdXT9cE8UdVUZscqbbyEC m dGisPD0vXIMungdpUZQncX2nW ZSmT5c3WbYjIgK5GEwiU5FzPG VlpbloAj22mU3zIgQtPmY7QHh u P1RtgsR6IYOrxJWdVJnzICJ1H 88wu8J7PRBxFDVvQEW6sSH7dY 1hbGlnbjogbGVmdDsgdmVydGl j JYjaSNwbY378WEEsmNtoFcAvV GluZyBEYXRlOiAgMDMvMjkvMj AyMzwvdGQ+FSZoXRJ9mGqxYRW n gWMcCNeeZq7gpCjmwWchGM4tY CFlxnvdIIWzuH9zTGLrhHEpgZ nzJI9hOOHbhigff259UfUrFHO 0 MLWlqOFeR0XjrC9uWtJtVVSkJ VBqT6PngITgGNhkS061OGdrOz N9LIObjcQyY9GvAORmgDlhZqQ 0 w8K8Xj5Hr1VobzxgA3HdpTRgL cGmMcobWKt3O5KuYolmbOE+PC 02PCMrRQ49NLv2ROZ1tZyoIXo i WTIeL9BxtX6rMjHfTGUaFXDhI yc+PHRhYmxlIHdpZHRoPScxMD TnWzKlkPznHN8cKz1lPWDqEFB v mMrjdPVyKuFmz3tiIGYhAOfhG Z1vyHjzJ2EyfJP0GCIws0n0Jd 97J96lZ1CsaTC+CIMhtBZ0gFN 0 kH2qHoWyNhQ3UNfiC030PdSnf XMrPorrd3moo7jtdVp9VkZ4EO NcyeJqoMfpDYS0w8QwYz24T69 s IHdpZHRoPSIxNSUiIHZhbGlnb m2foJ4qMd9+VOZnjRG5kSG4iT 1nIlMsFuU3KOafF325WxMqxXF v Wsnei9kbh9pibVl4MqZeCBFxa pBqlOrxSUO5z2JvYv89G5RzfN zsf3XoHmi9di02mOWnn4M2dIX 9 Y6PpRZRqyrjwsEEenDoxRD6dE UVtxwojNODjxK1qHUUsX7e4Cr XrMqE3LSdeF2HukvJ9ZIAbxNG g VYJjgMVDtN4wfyaqp9pvpwosQ qWrOMGuWAp0EVc8EEWhuCdcCs BcQMQ3VjW7XSC5nFBucW8nvTv n jgzasT4wFpg+HMX1aNCccNVAO G4bSfokiFW+GCAcYEX5sYvuTC tuARCphU5jHZUeQ1v9MfGxFiU 1 ZAbwC6BkdtT3QLTmvCOaNYVxl XNPpK2axrlcw8owwkmpPfUnYX ShUAi8LYx5RFSqiNdmCaOfWHT 0 ZwH5FUW8aCCigM6xpNihhqyhb G9wOyc+JrciuFqyUJE3PRx7D0 WpXnp6AJZfbYtoCO1clQYfHKe u Tf9mgHtrxYlwZL0oECMfqjiiq 217ZjNgx3aiKCLusLPmUZsaQN S8H25mj2X8AJAdFINxXVK0cNR 4 nE3apIcyphotqXUydDymqbZwj HxbYVfjGHhaD465XMFrzSjtRr PcRUe1Y6WgCxv9PPLodHmeZC1 n vUEnQLhcCx0lpWplnSkiNC8iS SKtrnvqk822VuCay1vbTEYpiD OqTGtkYFY8B18ey8W1USYyDVF w OYU5pZY3uM5tmDtyolctxOCnp OaqkwSiiTbtCPyiJInqZ421KQ EdtWfzVrNuwJv7N4EwHsr2SXD z aNblCU8wjCDqETllTd5zfFlwr FzzSV9bMGCugqbiv688WxTbl8 wbEGImsDAvYImeEAC3D14ew2Z 6 WULkNMNvVTH9qHG6oE4jkXkeq jogbGVmdDsgdmVydGljYWwtYW pbA479FJQncUjnTrFgpTxcbsC g UNmpCIy6L9XyLixpyKO+PC90Y NPiMY41eSNnrEQut1dgnDg9Fo NaZOOdRNP7qMbkQYwnl6PfJLX t U05wsFRtm3O6RBJtoWglyAJvW yQpiEE8sW7jGPpndbfrn9indc iwLdcuy5lsnv23bV68F05cZVp p TCYhWVQlPWQdJMWszYfqef7dx G9wIi8+YFCewPR7uPY9gA2fIB OeBzO6DEweZ366HxHvzADmJwd j p3rsz7xwbPe0NqQ4YBEypeHsd HmbFBB2f7UnRi44E50hWUsuJF PjZNVgRTAxGWNmySvosu0olV8 w Ii8+FSEvaPT6hIZ7qY2vEyZrJ kJ2EGzgD191OoDlqNBhEnnhT0 9hJ4ShqIZ+KPVpZbn6LWYyhYr s KM5jyFWiVYmzXe9dPHM0MtFtU jPgTIsiF5QwMRKgmrxgiesbwX M1DZRqEWEpjC69Ru3psSdwWZI w oNSPkJ1xbqhsg6thvarnKjOzN ADhSGo6TKn8VFLnyIxwPcCbPS A0BdC1VRM6pEMduL6ujEojgyi g gH6zM9ZvCISkncunXb32xR6rQ sNpVhX5BQwrBdw+VEFOTkVSLC KDY60YLKHrBIjsiTM+PHRkIHN 0 mMijLCnaURAqhG6sZXZtT9w6X aTbGyT6KEyqL9BkJWFcwnsgXn 94eC4eRkDdInE2LNkqV4GjzjS 6 ULWfoYBnZEftWAG8D36yd8D5O KRzSOQqNLW7gWJ2fT4idBtdvc ogbGVmdDsgdmVydGljYWwtYWx p O323VZEeyClbPrEbZqI3BkX4M Sc6A8YuEnh7ZKXnfMlrIG5ulO DrUTofIg7wsOwwhSagAJ4yDUW p euieSBBzuG1mNDShtNTgbUnxD V7qXESvtdyci709EjVlJZA1JR EsmCYfH3PhoU1gJaSnPFIdEKE w V0NzhVDrVKmaN912XRizVgL1Z IQpijIzL9HeEFMfqTofBkM8r2 O3Du38SXMARPFfsfzbjUL+PHR k YZA8yQatDYikWDXtoC8wSGZmA 1w2LqTkHlW6ZQsvN6LkUQNymi vxUc58lM1fTwRrAwL6MBnfO1X v ceX7ZNHvrYLwLVpbSMZ7P70ar 0A4XAXkLMLwOTZ5oHV0lT9nbO lnbjogbGVmdDsgdmVydGljYWw t QBnsU997VBCbiMoyEi8xhIL9T 3OmGec3QWJyeZopAO4udQDoUU myVp4rqTedgSwlPY6jFDCsbne w VDNvcD2sLYDgkYXbqQdaST1jL HIwrontp979ZbMcBLQ4YLPhtT XzU8KgdA6nRjRvVPCqTEBrG0F l hNCyVEymO527WWvyOtO8WFNwk iIfV7DyAOVyvHosXdH5n3E6Rj 1BdFYjXWGkTJ96BY22MP05X7Q y PjwvdGFibGU+PHRhYmxlIHdpZ LZfGYfaMQDjKpWkaShiDB0wGp 7tGWZuYULuxVjkkMUkWuZuw4r s IRNlILyhPT2ezJgcT2AhqZU6E FFpp7r7Fo87H71iL1AqfAN+PG ScmKG4pWU6bL7zPvPrNwF0JXr p H421XuHazOFtIteyd6lpv7fmt Fn9RdNgPKJypnBjkIxpDRZ9f5 OdIl20N49rPAaqAFBvPOJcSDG i HZRiuHlimk4myZ9rYb5+PGNvb WL8sDE0yO2nPiKkQuO4KObwO7 08YkBmaDTiEicsS16pA8GhrYB + BSVsJiz3FTZviLbvKE0kpHUtI DahGs1mHCU9KfVgQcAfDTogR7 FjINTbpcovigokhHR1TEZzJCL w dB62Ty0oiIzxCm3vDAMjLDF8M TDtfLSbW9PjaE0oUkTuZTYxOC YmM7CbdPTvMEzyL254XAxxRjM 7 SUNgpxAgM3PqDGPzwKeoWhW8x 4C6Vp3XfPyvrKIlYE2cQnUmPU c2S0WuJnn0GLNekCjcBO3heOE k EOyvMn1xoNbuiNgqPM2eONGkv uaou653TuBqv0ysYUOdoCIiAT zaQXO4X60gi7W8VPHyAGZjEXK 7 tON2gZ2yoJdedmqldRBbeNpoq yApeSugWAhaFVcvY933CVEsxF cmBcWGCvt9D8JrAda3EECliZx s VS7fyRYnZZvyOv0nzOnhoPkpF W3rDFUefiket767QmYuh6ahWM UqmXDdGCreWDS2K57fv0N1VLN w DSEgKCP8wUS7pW8oeIiplkkps GVmdDsgdmVydGljYWwtYWxpZ2 73BYUgrIqbYu4WQrw6A3UdDky 0 OEMaiBmbCV0byCWiUBvqQs7is ZkceEdeIA5tJEMrmyzcm285Ub Uub2xxVDHpmLZsMKesOJC4F53 s x6P3HVZxBJUdDGS3lAV0vJ8vc GlnbjogbGVmdDsgdmVydGljYW jiQWiiH011AQPybPqlOcUmhTO y OjwvdGQ+NK73ad47F7HrCxvnJ fm3WBWgSBM9gRI9wT1lFQCbLQ ema3K8jKD2H9NnwuVlhl4br6o s YXBzZTog (more content not included)... Normal [facility] Multi-Wound Charton 02-27-20 Multi-Wound Chart [id number]#1.00CD:1 27 Normal [facility] Nursing Note - Woundon 02-26 Nursing Note - Wound [id number]#1.00CD:1 27 [facility] Physician Orderon 02-26-2023 Physician Order [id number]#1.00CD:1 27 [facility] Procedure - Woundon 02-27-20 Procedure - Wound [id number]#1.00CD:1 27 [facility] Consent for Treatmenton 01-30 Consent for Treatment [id number]#1.00CD:12 7 [facility] Correspondence - Woundon Correspondence - Wound [id number]#1.00CD:1 27 [facility] Consent for Treatmenton 01-30 Consent for Treatment [id number]#1.00CD:12 7 [facility] Multi-Wound Charton 02-19-20 Multi-Wound Chart [id number]#1.00CD:1 27 [facility] Nursing Assessment - Woundon 02-18-2023 Nursing Assessment - Wound [id number]#1.00CD:1 27 [facility] Nursing Note - Woundon 02-18 Nursing Note - Wound [id number]#1.00CD:12 7 [facility] Physician Orderon 02-18-2023 Physician Order [id number]#1.00CD:12 7 [facility] Procedure - Woundon 02-19-20 Procedure - Wound [id number]#1.00CD:12 7 [facility] Progress Note - Woundon 03- Progress Note - Wound [id number]#1.00CD:12 7 [facility] Coding Summary.on 02-17-2023 Coding Summary. CD:[id number]:[id number] Gh0bW w+PGhlYWQ+CP8ODLJlU74foRR iyC1eR6KYCGuWPgeeCGDECHlN FqEwmaYwDQ6kgFXdTYNn IC8+GH7xLOJjXleypWZqm3V4b FY4P16old7eHXexcRD9NTOuCe Xqnxeji7qjtDq1VOzfJlpiNiY t ZJLzfJ65WQL6yH90Pj23aZUot RLzv4kcmRr7LeJwFRQlFXU5lN dvIDddw8IzWVMjY78oqBOyy3P 6 ASOaeVoilJYxSaKedVQ8lY2iQ Csntgiec8sehvhdQcc7te42cH Cts4C0jOW4U5MivoX5MNJpoJH g ItrcqUFRtU0staunq7zkhdtbA oHlYRHqKRl8WUx7IJPexHfjEc LkXG95USX2YVXolvQbD0BrUJC s rXnsYiE6o3O3Qa2PL7KAEixiC 1VNTUFSWTwvdGQ+EC27hi73H5 FyMkliIzd3BEVoRMX2kDA9yO9 n BMZvOEkdw8S3hST7Z9ZotqRla d4as4ooLRPpEPchX68jhINfi6 I5AGPmrBP2SMTzeHpgBnVvnG8 3 Oyc+OJWddJtly3YnIvjbz7fjz 1aoyRf9OdxnOQYeiqBlbCpzBO I3a2XhGm4wFYQbgXK6hIA5qJ1 i YjMcApM2SZakF134PdCnmMTjT rbzQ53mE5LprTU+WBPzVxx5WW QlfEwtXE9uI3LyQLXytpdxyTG m lTlzXR7hBSRoqnutICXmoT0jY DHtL7l9YpUkKjJ7WFurQ1OmIM LyxfejDv49fQ6oKgWzFnC0IWv u U1YozyY8YKGmxTZzNEeeWXN4D 58vq5U0EZVvENFhWZA1jKE3cA 1hbGlnbjogbGVmdDsgdmVydGl j LOkaGRgxC859HVJfmPskPgMsX GluZyBEYXRlOiAgMDMvMjAvMj AyMzwvdGQ+LADiWTF4cUefVVA n iIToTGjjWs2hkOcdlHjwDE2iV RDbvxgeYMSmoU1rUNJfmQQvfS krVG2iAXPiamyrq134XpYyTVM 0 TNQsjMRzG6BrmP2fNwQkVSUfC IBzZ4ZboOTkREbxA234DOkfEn P4IZZoiuPvB4NzHNWdvEiqXtF 0 s1O6Zn1Vh1FmrxveH9CdaPQkW zLkPzknULo5K1FxXgkjvKC+PC 41USXzOJ57GQq1JCC4rOumTBl i RYFqR6CruS7lYwHrVJEuKJRqC yc+PHRhYmxlIHdpZHRoPScxMD SeQsHlbUuyJG4vFs1aKPLoZOX v pZpweYLgHiMpr7jaKFHrAPuhH K9cwOuhI3UdkWI6GYXac7e5Ig 08O68xT3OdrCI+LKTviOR9jET 0 pA1pLlYhZeF4CAjdC941IcWlq NVbBxtow3tae0jfxKs8BhT0RZ XvnyHvaUxsYVQ7r2XtKs15F78 s IHdpZHRoPSIxNSUiIHZhbGlnb y1pzL1uVx4+GPCtoQR7xSF5dD 2gKzMcPtT3RLsgI346PwDqtSZ v Epmsn0man3mljVt1TlZhMMTgp uMgaVvuYGN3c2AqKl25H5EjaV bzh7AmKip7os11jBMpu9G3xKI 9 M1YsGASeswbwsOZphTnmSB8zZ HLxfsdmQLZmrV9oONKhO2g0Dk TfOaG3IEzdK4GpkeO9JFPhjAD g JZNufTQIcO1tlsrvs3pnvuamF fOtOZUjYFe5TMw2DDWteDjzHe FtODS5CyQ4SGA6cMOosU9qcUv n njxxgT0sLjj+KPP2uOTrlZSFN B7kLypuoYT+TWAjMBR8sMnmVW lfQTMajS3kNRQmF5s5PyXjEfG 1 WAdbD5LdfgO3NNApqQZkBXEqy AEGnQ9taqgrt3vjadliCbRmHY CuEOj6BTe0WMEvpBsjHeDoHCV 0 JdR4MKZ6dDFncZ1pxVfggyyer G9wOyc+SwmvlDxsMMJ5EQt7E2 NrEnj2DYOgxHhpYV7brGFjOXz u Np0nuPmfxCdeAC7wAHLzhqmud 799SwCdc4rhUQEkbXDrWCtsQG X1Z81qs0D6BHUtACLjDXX7hSN 4 mA4tcRpdybedfQXokBiddgYhd RwoZUkbVIcyZ547PWHsdUftIq FpDRv6V7CnFix8PVLykIqvHX1 n eTIvVHcqLs3jnCsapIgnKP9uC UKbxzexj156JuKif9igUYOwqR BtUUadYHG2U96dv6I5TPFoMWU w JJX4rBL3cR5caOyvijivsJZds GdlxgPooWzzTHnqUBjtQ610ST KbxZrlYgLvgCr2X0IyQep0TVQ z zJokDX0daMAqIKgnFr0bbGeqn UsuLO4tCOClbgzou697CvEst5 jlPDYcuYFiSLdsISC1G74uq5C 6 FSKcYJXuYVD6hGP4dX1wyWyht jogbGVmdDsgdmVydGljYWwtYW dsM763WRScxRfdNsTjpFsevoI g KPriUSp9E6MzGitwvCW+PC90Y JViIR52yXJxcEXgw0jbiKr2Ja VqRADjLSM3eFbeDYfls9SkFZS t O94icFWry8D3PHGqtHdxaAXxI rZolQL9pI9jSWwkaijtt5rkxe wvPqbmw2qsno27bQ18L05hXXm p BMDqAZGsLADjXIYsuUdejm0mh G9wIi8+YFUluLX4xEM7rQ5kQP JcRtP2YIzyG356GiEutLXiFix j k9nyu8gnyWr0PjT3SFUxpjWkc LgmZQJ3j1VnXi40W03eDLrqYA HnZILuFUXvFFTlkJrfay7meG6 w Ii8+YZXpxHC7fUI9sW7kWfYxY kQ7FMygG035CgIvyFTbAqjyO9 6qZ6AjeDM+JRGuCcq6QKCjzZq s NB6nyKQoTFswVy0uFVT5WrEgC pRgQEpwP1VhVGYivlxwhtflxB S0AOGrZZEhkS33Kt4mcCsxQRM w mFCNdP4ljmhwt7dzkmmwNkNuS GFoLFb9ICk9UJMcfLduVfWdZF M5ZqU1DAU2cXPfzE3wjIkuhoj g rB9pT7CsICMdfxlbCu60mG0xC vWiAiL3RQgmYap+VEFOTkVSLC IBW71VWOWvTDmwiBB+PHRkIHN 0 yJpeJMfgMLUtzX9sVUVwU0c0O hXrQvU7UQebS7KwNBThjsjqAw 41dQ6xFsKoCcA1BHfsW7MyziG 6 YIEbaQHbUTcyIWY0S52fu5T0H ZYiXALhEBE6fCM8sT9tpFnpjz ogbGVmdDsgdmVydGljYWwtYWx p A990OCGojZrlRvCzRqX9KmJ7V Ii8V0PpHrj7ZUAkaMdkAX3azZ ReECtoCt9htZiwwPiqPQ4jQPY p jzahRCLbfW3kEQMcpMIkmJrqT S1lVULpkgrjz376CmCcBKT9AA SqqLGeW3JqhN7iCkBrJABbCGO w W7SlvHPmMSgkA371QXbaZyK3N MYvutCnQ8ZpAPSxxKnvLxD9e4 O0Nk14JPCPOZYaiywkuQD+PHR k IRH7pCcuIVmdUHEfjC2lSNRxK 2z5WxRtJhR0ZIhtJ0YmBJWzhj ndOz52tJ4nAcCmGpO2EAdsU4M v maO5FUJpoNGtBFcbWUE6H52cy 9P8KSDmZSCjDWV4mCQ7eQ2ytT lnbjogbGVmdDsgdmVydGljYWw t YCtiD192WIBllDncBs8dpFW9Z 0UfEvz5PULhlGybEA1gzNZjQC qtPu2yhBgjlFdgLS8uBNDdppa w IDCojT4iZBTfwYXqiUhsKR2bI YWntbgxm807ZrHlYBM4BJJrsD TyP9ApuH8zDvWvHOVaLQQoX3F l qKCeSSufX371DJvdJjX3TXExp dJlZ2NbGBEkyGqaTdU9x3K4Rx 2NsNAaFGYdTA85KQ68JK19E0A y PjwvdGFibGU+PHRhYmxlIHdpZ QOzMQtsCXVsRjAznYejLT9zZy 3vMQQzQHUhiPmnhKQaXiXmu9a s HFIqDEauJP3mwNfeO3LsyWS1V DVrj9e0Am45H17iM4MxnLA+PG MgnUP1mDK9cA8kOkQnTpI6JJl p Q143SgNtfGSnHfplo5pwb3vpr Px2HbUiFGTahiHvjLlvRNR8i2 YoVj85P87yJAukMSNuAPUtYNO i QXIjoZcncw2jxA5nAz9+PGNvb VJ4vBW2cM0vFoVzZrB0HMhuI2 73ItGvhAXtTcwdC84xX3DjnIL + PFUtHju5RBLknEylQQ0qkEVbI DtiUz5bQQU3TsFpJbJyQBdsY9 BgHVZumegvdtxhrLC0CVFqEAP w uF30Ii8isBcqMr8yDYPaDQO6X DOyuVAxP9WdnO8wOgKwPLSuOW PgS8KmvYRdVSixZ619BSfuUmZ 7 GKVjwzZhA0ByICRqdVcpEqK8y 3J4Wu6KtFfoaIQpNX2xUnNhUW e1K5MuEwe7YIDnnQfaMX9vmGJ k WJtkBw2stSayiDfoRM4hFWObm daik879IpBwb8isBJWvmQRlWF crCUF7G47fw1K7WPRmFHAmGFA 7 eLF0aY8ubKpabsxgpWVczXkgr oCweFuxBVqgPMafL935FHIksZ pjWvWLZaw3C4WtObq8HBOeeWr s DM2oeQUsMIagPu8bhXlzxUahW T4hVOKzplejm799TrBqj0fjZT ExyGHiPRykMLI7Z20nq0R6VIJ w KUOmRIW5kHG1vR7sdMnxqhjtm GVmdDsgdmVydGljYWwtYWxpZ2 22WXYygKxmQr6INcr2W3TjJme 0 NFRhaHrzFW1mfRHlLBhpVb6jr BeqiOeqHY9uPQAyvqvnc479Ic Yfu6zxOZLomBEmZRsgXPR4J80 s t4W9YHRyQSAqSMW1wAG5tG4ju GlnbjogbGVmdDsgdmVydGljYW ftINmbB286GEPslYioNyHidIG y OjwvdGQ+TQ42fe25G8YwFzhbC ii6NKWvKSJ4vUH9wZ4wNCPsDP eiu5O4fYE1E1NarqXvtu9ne0i s YXBz (more content not included)... [facility] Consent for Treatmenton 01-29 Consent for Treatment [id number]#1.00CD:12 7 [facility] Multi-Wound Charton 02-12-20 Multi-Wound Chart [id number]#1.00CD:1 27 [facility] Nursing Assessment - Woundon 02-11-2023 Nursing Assessment - Wound [id number]#1.00CD:1 27 [facility] Nursing Note - Woundon 02-11 Nursing Note - Wound [id number]#1.00CD:1 27 [facility] Physician Orderon 02-11-2023 Physician Order [id number]#1.00CD:1 27 [facility] Procedure - Woundon 02-12-20 Procedure - Wound [id number]#1.00CD:1 27 [facility] Progress Note - Woundon 01-29 Progress Note - Wound [id number]#1.00CD:1 27 [facility] Coding Summary.on 02-10-2023 Coding Summary. CD:[id number]:[id number] Gh0bW w+PGhlYWQ+YE8VJBPjV80ipPX vyI7tN7IXQKtUOmehBWEXQLuN XjDgqmEeXE8xjIIfEHTz IC8+TC5qEYIyXlddgEKpu6B1f HA0Q94pzc8kKOghsCG6POCyGg Nvhwdsn3yivJg6ENlbEhttFeT t XOImkB91NAV8iD96Ge52vUFqz RKgu2zfbYq2BbMlEOQaVHW6fJ zcSYcos4JmLBLmL06ppKIoi2N 6 TGNlgIskuFJaRjWodYN5pZ7uL Uslarhry7flxkfnVyo1px39eU Ijg1H0iGM8Y4YuvuW0SWCabJP g NnjknHWQaM4pnixsf6uhwuucN kCzDZFnJKq3GAm5CKFmwMgnWl JdVF41PGW8AYBvlhPnR0DmVAU s uQpbDaE6j2T0Ip5WO9SXSconD 1VNTUFSWTwvdGQ+FX06qg20T8 ZcJttcKgm5EPQyZRG5yWP6jU9 n VURjBKkxv9H7gDP1D7DtpcVrs b1ua5puXYPnWFngL81gmVXbn1 I7UFYqaIN1BLFomTmeNlHecN7 3 Oyc+IJLbbLiyn0AkFtxgo0tnn 7qhoLe6DkcmVIXrgxBhoGnlRL W8x5FiAh5jZUDnfQM4aXQ3lZ9 i JiIwBsQ0ZQgfL665PoUzjZMuA mvhF66kH5SkoSY+GPGnWby0TY OdvPeuMY4zR5OlLTEthnryvUR m wPgzEM3oIUOavtucATOqeH2fD MQdT8t2PlMvJkW0EUvoM1OjSI FmrljaXm18tI9jAnYgCbN9LBc u A4UoxlG5VDFxfJKwYKxcERJ2W 47od2A2RODgDOEwPDR4oWW4nJ 1hbGlnbjogbGVmdDsgdmVydGl j BZogQQknJ069ZLNjvXnyGiGnU GluZyBEYXRlOiAgMDMvMTMvMj AyMzwvdGQ+EAVvIOD2jUksJRK n wIKxLCyaKx3moItikGqtUY0uE GRkkijuIZVyjT4dZBKrcRTcyY fcQS7nXHEeatdvn375QsIpHMN 0 RDRfbJOyQ6DplE0jKyIsBHXxI ODuS9VszEGlVMznO946RZdhQp T7LXAbvwAoI1YoFFHmnNpaZfC 0 k8E5Hy1Xr0GkeowgT4QfkPEoE zMpCowdJPq3E1AwLliyrYR+PC 96WAQuKA81RNq7CXB1qMszUQo i PZNjH1AsfL6sHwBcKLUbQSCqA yc+PHRhYmxlIHdpZHRoPScxMD EfPcEgmFduHW9gWy2nGHJdIEL v vYqfuILnSnBpv1isTNSvPIcdR X1vrXofQ2SqhLM9ZCRsr1e8Bu 79C45iJ2MrsJF+DRMqtIO4mNA 0 xT5dHsFfViD9BEftT870DqOni EUfGmfsn1xqn8mipGj0RdZ2CD SrlpOdvFtiAAQ5x0QeLk89P64 s IHdpZHRoPSIxNSUiIHZhbGlnb i6zbK0uXf2+ENDizGQ1bHA4pL 6pOqVyRnU6FKdtG553JsClzAF v Wfwei0wte0ardRz5AmYkULBcg lUpgYsuSCA2u1JqRd61L1LveH oyv9PyTbn3ty94mUDta0L0lFP 9 R8GuDDOcmxrkhMFajXtiIO4iX VDncgpjRUPcgX4dQOLeA3n6On TtVqL1YUhkW6MutjF7RYYccOI g RHKewMAYeR6sfhtin2evvdwrU wClLARfOEi2UGw7KNLeaAyyPi KwUHN1GuZ3FKO9yKGfhW1vsEr n fvrpfR2sDxe+KWO5jBXouFIHJ P1cFadawVP+YTLkPVU8rGqrVO soYZRugU5gGIRbO9w8VaAzLhN 1 HPzoM7BlhrO8NTWofDCvZNPbo CBLeM1shrnvw0ckfycyTwGlXF QfXEr2UWp2WGTemCpxItEsDYJ 0 KoM3RWS9cLUhnV5ldAwfzbuuw G9wOyc+UvqrpWvrREM5SVf2D5 QmYid2OLEomTpiKP2apMBuGUn u Pj9veBrgjPkvFC8aEMTgsysft 217PzAkw2hmAICzmHYyVLgpWQ Y7V23qs8U8XHSeLRTmJVQ5sXB 4 nK2wzZfeqqscxXJmyEbckvCpc StrLBvqIJiwT197JPJdmRvqVs OjWQp6B3JjAqp8UBSxvQadZD6 n bRWiMXchPf6rxAeloLmePF1qP ZZbbhftc700PcQdk6pvQMFxrZ IwYJunDRJ6Z78dr2G9YRPtOCT w AGH7mEL3aN4mlFkcdvqnaIArl HcsbmAzaAxaHSzvPRfuX014QU AyfGvlNyHtvPu2V3WhXzp0WTF z cQemFH9vdIIlKRxkRp0hrIqao IqpNV4kPMLtvbdtf164VqJpy3 yyCYSqiJOyVLjdRDD9Q45sw7C 6 MESqOTPuMOM9sFM9oL2hzRler jogbGVmdDsgdmVydGljYWwtYW gmZ890IWYilKucLuBwyQrpnfC g DBqvGJk5Q7UfErjklTC+PC90Y BHyZH00aTTurCJhv2argMs3Gi BaIFIjZCC7bQkgHApst8VpMCP t N62zsHSoc7R3BFOvdVclwTVpN oVxqHB7zF5uUXgoxlyfn3udjq jqPtlnf8anpj96nL22Q05oMPw p UHIbCZIiSARbJUKwjEmbav6fd G9wIi8+JTEdxHY7gJV0mB3rVX UyMcP8DPzxP567YoKzzICfIhv j a4ptb9aysHw2OwB2MWQbaeMdm IveUKX7p6BoCv59T77uWLxuPC WxLRFuSVIhRNZrpFvblf6zqG3 w Ii8+OGHufSR5aZG0dH7rMlSbV aC3LEooU990UhVraNQfEyenX3 3fK8VtbNO+IIFsRwo8DVEodUj s UM2drUCfMEheDu7cJAB3LeBrG nHnSGgyN0UqRVZcxqdzdpfayI L9PVWsOITxyQ19Ek2eqMohNXW w rEMOpI5kcihin4rtlhrjXqOaK QEvIPx3FGj9KSCfzDdgXkIjEE B5MgT9YOL4rCLsoE3idGcxaxs g dF8yA5LkXNErvmrrWm85hT6wD kEzMlB7QLwwUcy+VEFOTkVSLC SLY91GVQQdNUfnmKP+PHRkIHN 0 lKjnGSsgSWBrnY8dYUZgO1u0J yRiVbH7XDicF7DfALGzffuuAr 62tX5uGaHfHiT5BDerY8WivoT 6 XEOoxMVlJRcbFJU3W88lq5M6I SJoHCEfNVD7hRU5vZ2bjLfpum ogbGVmdDsgdmVydGljYWwtYWx p K808RBBckYgeUxXjJlR8StO5Y Pp9E5VeYoz0YSPogWhoSF7soJ IcTWibFk5xeNemzXkdOQ8sIOZ p bcptALTdmB4tWYWqeJIeyKfcL Z8dLFNxmiyvp303KhIuGZZ5QE YpgUJyI0NkfS9qGeWdWUIdSPY w R7LheYOyITqnW637KWluXgD5D BHgtiBuZ5KdHXBajZbeCcO8e1 H4Ds31NCLNDINkxruwhXK+PHR k JWT4mEouAIzjERYfyN8jWNOoF 8i0TeBxIsH0ZNfyY2IaAEQlae ppUh24qP6pLcShWxB9UIwfO2Q v asW6VLOoqEBwWRwbOIF6O86lf 7E1KQWnOBHuWGR0gED5iM7lqF lnbjogbGVmdDsgdmVydGljYWw t RFkuN223DTDooHfuNn7mfWH3P 1AhNjc0YRMbbRcwMS9asCMxDG ptAp5pfVqxsLfqNT8zWFBgfzj w MPJudD5cKPAelCGqnRpwEV6nT KAdhhcsc820QqNqELZ4PAKvzI OwO6FliE0aWeXgHUVxVWIqM9T l vWZwAHjmO102QYgmYqC2RJCdr xQdU7JhIDHrwUzfHzK2c0F8Aw 4GmHJvQSEfWP29OO55OX80L5A y PjwvdGFibGU+PHRhYmxlIHdpZ SObCZskXSLmOlIjrHokXN1wIe 7wDMEgGMMxjBkcxVDsNyCio2a s NCCbSJqiZR9obVbtQ6FlgBK2E GKzi6i1Bt74F28pT5PrzFC+PG GznXY5vMK1eZ6cJpOdNdN5CUg p K110KyXglKBkOfzlf3lhh9usb Bl4CoTzIVEbiaRkxEibMJX5t2 CgNh56C83zMYhfYEBlVUFwDSZ i SNQxzZbxrs8amD5rWw5+PGNvb KC5gQO9eP6eZbIdLuX5AYdsK6 47BhAruCTjAhymU45pC1LdcZL + RUQlChz8WLJrySvgSI8mzNTuT AviHx8rITT7TbOjXtEpRNipZ6 JaFZJombsehxhxuPU5UANuVWW w xA29Ty7wrUkyBy2aVIWqWWP7R GRudQXdK1RwiY7iWcGiNGJgGC VkE2MsuPXxWYudS843LCbtChK 7 UMXjfeUoP2AyCLRgbIrlCoG0r 3U0Cf2YhErjxMNyGO3oQyYsLS o4I8ZhNrq0EZLphUikSI3ruTI k BNjkJp2akTvtmFmzDE3fXEGbq pdni218BdJlx7ogDAQvfSJhAT wgOBL2F61fo8M3IIFuFIGyECD 7 jBB9zF7hnFcgmejtgMPfoZuew mDzrIbyWDxwUTxfD417YQPoxC lzFqSOAem0Q8AjVnw9OYPtsVi s RB1hmOGlCWpgAs3ltUtowTghV U7jLOEesuoea645BzHgk9kqVS JkbEOwAWcyZKU5I31md9B2QSF w GCSqUPU1kGD7jK1lpTdfqqobw GVmdDsgdmVydGljYWwtYWxpZ2 69LXSwyLrsOq5CObo0G7WlUps 0 OMBhhIfrVF0ytWInMSobLe0ki QvewJirWN0xCKHzxxtuo196Tq Srn5hrYGRulXRqTUgeZDJ0I48 s n9R1WPYtKXAeYJM0wEP8nF8jb GlnbjogbGVmdDsgdmVydGljYW kaHOksA831MWMpdSquPlLrgAR y OjwvdGQ+BH35cx38M7OtEcpcZ si6QVOxRQT0vWN0eE7aFDUaJD all8W7bGZ2U1UngvSkua2rs2t s YXBz (more content not included)... [facility] Procedure - Woundon 02-07-20 Procedure - Wound [id number]#2.00CD:1 27 [facility] Consent for Procedure/Surger yon 02-05-2023 Consent for Procedure/Surgery [id number]#1.00CD:12 7 [facility] Nursing Assessment - Woundon 02-05-2023 Nursing Assessment - Wound [id number]#1.00CD:12 7 [facility] Nursing Note - Woundon 02-05 Nursing Note - Wound [id number]#1.00CD:12 7 [facility] Progress Note - Woundon Progress Note - Wound [id number]#2.00CD:1 27 [facility] Coding Summary.on 02-04-2023 Coding Summary. CD:[id number]:[id number] Gh0bW w+PGhlYWQ+HI9SPRZtU59bsRZ ewM4UG9iZCW1UHBQOODJQZA5Q VP9mwWX9ZDehN9IyzyCs LpkkiXKiZW33KAe3YOE4cFemS BtiqV4wjWZcN1q9IpQsKA06gG 11UJyqEABkMlZ3GvWchcgmmZV y P4tyYuYnsSQeQtq+PHRhYmxlI HdpZHRoPScxMDAlJyBzdHlsZT 4bTg0pURPmOMMnjSqjdTGvExH j a2nzKYOtIXodAN9xuUmrM0Zuq UH4TMYbp7s8Ck55pJY+PHRkIH B8uQzzNAttc048MnXgj5lbHUF 3 jLNrPBlmLKP0U88bm8V1OEHtA PEvQMR0cMD0bT2sbXoiwxgqV4 QszBNoTjC5PEW7dKRrpO5pxTy n uffnhM7sHav+T79NCD6TPJHBW J2DVgx7F3SxGwdchGG+PC90YW ZjOC95vCRpmIGcx6gqfCz3XtL w XOXqTFZ7xRwfHTbnl6KpRBCfZ 39pdMSuk6B9XDPbkFypzBNtPy AyjPP7eC2gMVvejjmcd1niqsg n Mywpp2tnbb71eZ37O69hQSftR MMrCJS7MKYeMDWktWtsld0sjB 9wIi8+NOkfr2jvd5fzdRx8YkQ w OMCyfzUffZnlQGS0b9DkJl35D 7BkwSipp1MaSvj2dd20wJBdo3 Q1cPH2ZVwgXQYpcJ2hFLaeQeU 6 PCBdOoQifW58gPNhVZfkRz3bd KecgVerBS6gSAToddagQCUutV 5rFDBciWPhoXgdAC3nSXEaebz m b374RgXdHOA9BLZtvWBxR4Kyn T3gEkLmKHItQKDlQ6VoqTOzRP cfZ765UNvfSkQ7NUHkbnAzX7C s YUCgpBeaOxD7n3Q2Kv1Bv2Hwg bwxKWI6GCokPWWzLhO5ItVbEz E1A1UdUsk6ILDdqYgoCI9uW6T h WNSeonlzckbvsFA6SZTyJFKzl D28mGIoRPxwEp1bh9Y9h060OF IhCKWmoE07Ot2etPxhSGSwdKK U fE3emktko2vfhoxdCyKvSEKvY Sj8VHw5CAIiaRirPcRmVKJ6Yg N4KHE2sOKumH6udKqhndovlF3 w Oyc+Z04vyH1yIWM3JTX8ieztT HPolsLbAQ70RS23C2LkEniizN FibGU+NCEzcmMnkSqoBR9qNtF j o6phe8PqJInpA2GkHRLgKRdrW ef9KCJsWQC5vRR2sI8bHFVmGG ekh6X0aQR0T7GnamYiug3uq8y s DSZiEUzsW27hvBHfb3N3XAOip IA0NUJhbPepNtWsfS02Ahi+PG RvtUksw4RdBymxh0zak8ahyRq 9 HiVvPQGghoClyBgiSXM1a0MaI t81T11lCWyhFGTeBGRzVYMrJP GtrHchim3hcJ1sZb6+PGNvbCB 3 sIA1zA8hYEKoYkN5FBcwF011P gPlxGUdWvqpe0elk5itaCk4Ee IkZKSrifCetEstUMH8j1RzUk1 8 V14oACzrNQYqXWFmZWUkINOcu Jhocq4tsI8pOi6+SB3vn4nspl 01eW73jPA+IYHnLAG6zBgpWQg w XYBsbB7gUMzrZnJ0UXXfFwTwt Z25wWGzHNjwSj0lcJgzvRqwLG 7eQGGpissxs436ZhTkk1zyMLI w rMFwBWjaBIA9B55kt5S5GQWuK LMfWPE2fKI8iO4ypXyaavyneU RgvNtvkjGdeGqzMZcgPNkcH01 6 IHRvcDsnPlBhdGllbnQgTmFtZ Tz0X2YoOtn1OMNbcSzoUU9nfL PpHJllRp9klQolwLnaLY1sGQJ p uwkpi001TcFpp8dyUWKxqEZsB JhbHSB6V79xu3I7XKQfKBKrKI D9zGB4eD3omHjsvpxqrMSlhEm g qaSlaMhpSPpiXNacI681URMnc MyaTnWwebRmSEZfgHB2YO43LP 86mBLxj4I1gRM0X5FfYMJrshp t fqfirIH0FRViYBRyzE21Ar1fo GreOy9fFBAcEXC5JRZdkXGtE9 GkqT0wOkHeXADgTLFmF7WuiWX t TIoqF296MThoPcF1IENrluLsB 0XsHXLxfRnkSsE1s5M4Sa1SN6 I3IZ75AQ28vHXqc0T4tWJ5S0Q h CJHedvgvzkbvvRJ5GHMsILJyc L61Qx9fePbqVn6fUIAoMNF2MF VndODaO5OgnZ2gOzBnYOIkBWK w S2YkoHOvPNpsD125NGdeGiR1W IXivkLtP1HmBZFgzHihFkO8l4 N4Nu9XKIw9AS54LS95lRAlu8A 5 hOX3E8LdSXPvlciqjfaafAG2L GDqZAHdaF00Nf0tpTfkFu8uSQ NnPQT8NBGtlGDuX2BecW9sJfR j ZRVcHAGsW6WmvJYjXQgbQ379E XlzHfB1MVZsbxUaE7UfGKYssO qvEaK1s9U9Ev9FTPRpBP48OQL 5 uLT8RI51MC58G0WvDsfhlNLfv +PHRhYmxlIHdpZHRoPScxMD OzIaTmiQcuYI9hPg5bOEEeDHZ v oUeghZJqPsYrt7hlBMPcAIewT V5llEyhZ1WkjLQ6RIIay0f7Qn 41U30eD2QxzFC+EQXkiVW0yTI 0 dS2mRkVuGcD3JIptH799KtRrs ABmBtccj2jzx4nvvQm3MhE3QB VggiBgjPydGAO5q8OiDx61D20 s IHdpZHRoPSIxNSUiIHZhbGlnb c0wjT7dPf3+DOVoqGC3aOO3rF 2sDwDgJsS9BFtsM218JsHwtPG v Yakhh3rcc9ireNk7AyPuMZLrr oUrpAlxWSQ5k9RmIe77T2AsiH rjz1SnBmu3cb82qVZvt5X5kGV 9 X9DeLXWgvkehwGSniOjtIU4pB BKmpkpeANLwxC9qORQfI3k3Sq EmVwT0LUdiP1JvmxC0MWGpySI g UZqdKYC5A55qb0U2LJBgZDChU WL9aFJ2dB9fmXeokcguaTTdqK faoqLmbCfjPWwnMLtlA362WZC v lKldCITjaG6aORSvkNEkfAslO Y4eDZDmiqeuYpXJBk2XTddmWE 4TNYxNNMb6L7JnHum7MXMbwDv s MY7ihIQrKYylMj6gtJqljStlL H7rNGEtnzopSOGkmV4oXITtwL LzkKluWO1bTCUgrigin644UnJ x GBR6IYMznGToQ2CsmX8eSgPwT PWxEIArS9YcrDJvWZgzP089FY hlXcE9KVKvjwRgT5HcEROhqDe u CxK1i4N1Pu1rWs0rRD6nGXR4I C23OF73aKAno2Y3jPO8P4UsJS NnxnftnvjqsTH7TYWbNXHmgY5 7 kEOlXVmhAw1gr5K9r439GKSuA BNrhY75Rj6sdQunLALklFTZrF 1bmedaj7nvcdmcIuHiPKPsOUt 0 ZQw1OKGwmGozHoUpFVI4FfX3R OP7rFHpbS4kjRtvtxljkE6rBa c+PyNkOIHevzI3M9HpUpg7LBW z sPsoEY8gxULbBWnvFl8ihYjqy DgvLR5pDGFqnjayPXMjjC5nAS ThkLNmcWpgAN5wMPLllergm86 0 CpHuCXV1DCSjeUQyK1UpbH6xX hYgDDJgYJXpG4AenJJqZLljZ8 14BJmeUvE7JNQqemSqA8UgQYP s mQyuJuK3p9E9Ku6DGEspEH27V X33tZLgi5W2uZF0K3GqLBKykv hegzitwST0HIUwKOVgyP46kVM k WMsqOp8ct7D9c893XCAdKAUpp W81Hh8qkGkoUCUcjPHGcI2pye kqm3dzdwboEzNzRJWlYDg6QLx 0 RXDouGnbMgHmEZX2UqD5WVJ6v BWglO5imXtdeuufzQ6nKku+T3 W2pIG9gYEtyWaxqMN+QZ01um8 8 I6AjTtzhKsk3RZMdEEY8zJD2x S8fRCMrPNwwc5E6oML1S4Pocc Rfah3gc6vdSXUpTKbuR92ifVL w t3Y6TEWioPX1KTNokNulZpTyl G93Oyc+WOAbjApbq3ZgWddtb3 ayk0igiNu6MlIrVWFcqeWyuDv u ELF1q6ItDl40F12uVHuiJHYqD PZaLAIaLGKjnCnctl5kxI8fUq 8+GCYllLF0eWK1gW5qEsYmYlD 2 TPvfG882AbPeqHJpDzdlz1djz 9utqIh7SrMzEOKjmqBysEgnSD K3w3RnXz45O8HeeYsdc4TgBck 0 yt58lKPlq1D7kDV9H2WeMKKpv vgnkRGcmSszQF8nOLEkkvamOY KvwD1qATDeX5w8KvFyGbP2XZg u V8EnjxI4NIGvbPYzHTJzcNOMj Z6atbheg8oahgzyBwMgWSKfWH c4YAw9VZWooXemHjLaMUU4DwX 2 OOG8gDSkvD0woEpocxsfdM7uC yc+XTu4x2iztFVfDP4nqOW7JU 58TC60xXUiu2O2nDB8B7MtVOM p jfpatncroIH3VLMkPTZkeY41L u9ahXqaWf2sIBNwGKZ9RBOudV PeR3OnnP6hLeHyLNCdIIPaM0J l fRMhWBklZ710CJcdSfI7PGJgg lRhA9VeCJYpsCmpYsC0s8U2Fl 2TDY59LE04CF32dUYgt2X0qNJ 9 T9BlLAQdxlwmwyeszUI2PNCtV EQboI88Rr4ruRnoDl7oVGIdXX F2EOYsfCRtU0HwdO9qXeVvWXD w TGBxZ0RrrHIqGDqhI430VBgoD cJ3LCGdqbHuN1AhHPCdbQrpOn Y2i5P3Wi5VEf38PY26CJ11eDM g k2V2zFL3X6BqHZHuatlvmzbyv UO4AFQgDBTfeE19He3tsHbwKr 9kRXAoGTZ5VEKrqERwW3WuvS2 y WcJbTGGaDGJoX9GmoGQpGMoxS 314AUytZaK6FTPyqeKfF4PaGA NgxJpwWrY1c8L4Rp5QASjzofw 8 P2AjSmmcuMK+SP09VINbHA23f TPbjYUwc0txxOu6SdMzCKHhKB Y1nDvyTCvcb5PdITRuW45mnRQ w c2U6 (more content not included)... Normal [facility] Coding Summary. CD:[id number]:[id number] Gh0bW w+PGhlYWQ+IY1VABJwY70skDA toD3YC5hHCI4LVXGVWUAFCD6Z FO8ohUG1ADwtE5GzkrCj QxnksRPyXW74HVj9FNZ0tQnsH ZeipU8keTOzY4y5QjHpBO87aS 40IVfgZDPaXkL5MeXixecvcSC y E1tzGnEgcCOeJla+PHRhYmxlI HdpZHRoPScxMDAlJyBzdHlsZT 0sUb0qUSCaROGygTzdyWTgYvQ j o7bxVDAxNYvhIG8epCvfD8Szp CL8ZYJok8y7Zn23qKE+PHRkIH Y2nRaqJZduw212ZsZqj3cnAFE 3 pAJbZUbiWSL6P65yb5H3WCBjO HHpQBN9zFR1mC0dcCdxnholV3 QxqZLgTbE3TJO8qCIzpI9urRi n itohmU8oPnb+K70ZIU8AVIGHY O5QHbu3T9UkYaxydQT+PC90YW YuLC49xLQilVFrd3rtoFf1PsB w JVMgCRG9cDcgSQrhh4UyQBBhZ 57joRRad0B6GWVrsGmhhIRjSv TvzHW2dN1tXPppfszrz6xzlkm n Nuule8yrhp70zG77Q08lURzfJ VRlBMP2PLEcLUZzfObiaw4qyF 9wIi8+ZBsdv8ura6dtxWe9CtG w IYRmghAujQybPBU7e1IoYs84F 0ZjdJuxb2CvVvs1wi72iVXfe7 Q9lUW0NJgkJYVbyE0jELztFuF 6 KNAbNaGzaT68kOGmVWdcKa1xa UwbuCjjZW7cHYKinrhuPBLbgM 3vLWWceYAizDwqCR9oIQJyoha m u521GbRuERU7XVZjwNIfV1Alg L2jKbZiLONkPQSxQ6OkyDQxOL cdT896MZopDiU5GRXmhbFaT4A s FCMbrLwnEbX7x4O7Gu3Uq7Orm adsYLS0SZpbNZYeXlP2GpRdRn L4O5AqBoj3LJBxjKtoPX3dU0E h SYAxftcuntqdkOE9ICHcMMEfb I98sYJvSDgkJk7is8Y8o289XG BbGLPyyB23Hr8jtYpcSEDenDT U kI0udwlef6cxlllqUnPyYGIiK Bu1KSm2FXLrmTjoIcPoWZZ6Hd W2BOI4yLVsjN2jfCplktcbpG7 w Oyc+O75lkL5eIBS7RHH5yplrS CUkuuSfXO72CW12V4WnDsvhmB FibGU+QIInvxVkyXssGR5iBsN j f5req9AzEZhzB1VgDRFdJHlsA xl9UEBeOXG9cGP6lG8xCLEpRQ jao6H8xSJ3R9PxooRkqw4fa6h s CWMsYHceU83cxLCxe2B4DNAmk BS3VGXjpGsvNhMqfO17Zdq+PG FzyLptn8MzJhapu8cgg7qniAw 9 WyRsDXTbygWbbSvpXWN6x0AqP f66D83tEMqjIFKdATCpAXMoDZ FwuJybey5anI7oSo8+PGNvbCB 3 yRY0dN6jMJAbByO0WZqgF077P nHktTKoLmxse6mdu3rivVa5Mr MmPBGxalTvyMxnJCY6p4WbWw0 8 U62tCKnoYVNoLRPtCVDkILXaz Cgurc2sfC1vMh4+DG6ei0zhyd 64bW21bYD+FQWyADG5cZheDBw w GAIanO6hQVmiUaJ4UFCjKgPmt I07eJTlODvzBi6pkSejbPsrAQ 0wYVThnynew186QjUml3yzQYQ w uYTqCImmXFW8Z64ps0D8RVXgO JUyDYX2bJH1kQ7itXszgagokI LyaYkvuuNrgFaiQOhoZAlvR37 6 IHRvcDsnPlBhdGllbnQgTmFtZ Ux0M6SvVjo2NNGwpDidWP0erQ ImIJqhDd8lsSbvvTizKD2zCKE p uvoow340HpGhw6ifOMVqlJOcM EfmXZQ2A06ub0O5XNPfXGZjZO K3kUA4nQ6jsZiqmklddLFfeIl g kaQnoSxdRMufYQquD168FQByn WsdFeUlyoOvHANtpDZ2TQ74UR 09oQXhs0N8dFC4H7NsAOUmhui t cxcevQN8NIOwCCFycR72Kn8oq CarMk5yMKZsRBA9UNBrqZSzY0 GksI3pBiIbQAIaKCCtV7BowHY t MFcxL626GJxrQeN8SFVandRsK 8PyUJHagBndPnD8p8Y5Eu6RW4 C6FM24ZE07zPEaw9S7nCL8S8E h SBXrjnnjalfbnQZ5WPWyXFUaj K21Il4yiBzmUi1sAPRcWQQ3ZP XhyESdJ5EmaO5wJgJjLXPoUKG w Y9BacQJpMBkhJ571CAghAlO4E VBmioFvN1JbOCCznTilBzR1f5 F6It6PZKt2UU18KN33ySQhy8K 5 zGW2I6EuJXNnvzvibyqzuJI1L SCqIKWjpR20Lc0tqYvtVe7pRF PpWMX2SOYiiTAfP3KznN5uEeG j OAInIYAiT4XyvWPlOHpnJ954W WpfQgX5WGHpqjRvM2MmFEEhoT rkJqE9n3G6Sa3ECRPqDP08GLN 5 jOF7NU43SF89V9RlDqzqfLUvk +PHRhYmxlIHdpZHRoPScxMD VsBqXiwTsbPX6iCa4iKDIeRSV v yRxkfZUjYmUdr7niBBBhSLdrA Q8muHlqK9QwkHY5WRUfm9q8Dx 71A78xW6ZdnNR+JDPpyYR4xAH 0 sQ6sNtYbFzI1ZSuiJ478JmYkm QEiHvkta7zwb5lqpEv7UzZ7SI RhqiUhuRntVNT3t1HzRv28P98 s IHdpZHRoPSIxNSUiIHZhbGlnb b1uoG5yQq2+PGXhhZZ5jTA3jN 5yQvAdMfC1NNtbB672CuDkfOE v Tlobc6ype3rkzOb9BeBzLBEas fZceKpkAXR0m9RnSf04R6WgzD ktf4HgMsv4fa86uKCki1U5aIS 9 X0AtMGFjbbsldBInqTrwIK8nO VCmrrztAJDaxL9zUGAeR5q8Br YmXsX2AXsvD3UygvI0ACXpzTR g XKlvYEP4M32ty3U0SXCuWMTqA CI3iGZ3hA0wkUtsehvxgLQtuC dsdqAwsZogKAvhIMygQ895EEQ v bUmiFVKwiB2sGZEjmMWbdOvoF M2qIAEgxppuOjJTUr7TEnuhOJ 6OJPqPMNg0Z4CgRtt4KZVijNz s PG0loZHxTHwxIw7poRseeGioF I6oAPLszmsaASTynW0lSHKavF ZgoBmyNT3bMLZztsvom752XlK x DYO6TBOtnMRvT2KtkS7gTzDdW LInGABvX4IgcNYyLBexT117IJ agWpK2INAquhSnN4JpGDYjcMo u QmC4f1D6Ig6iOw5vZN1dISI0Z B69VU84cCKnq5C9iVB3X8ArTN ZoxnbsfexkpLX0OBZtDJLcvW3 7 tSTwNYpwGd6cb6I8e482GMCdC SMwiE61Mh3npGgzDRCjhNNUgM 2absktb4zvpjryXmZjGWWwNWm 0 KKb1TNPhoFrpVbMkXZK9UnU7F UP9xZNheL6wxJtrgmtpdS0tBa c+PnFhDIFsfmF2K1XvZld2WHV z kNmhYR7iuJHwOJcbGp9xhElfm SymZR3sWQVruepiSWHxcR0tIL FkqZNzfFdwFG9cKSIxcbvnk57 0 DzGqFHR5CXOjqJThT6ZufR9eZ vIzSNHpKYDaN0YwjBIxOJfgU7 28OUniDqS0DATbrxNwP1XuUOK s kRnzOqU7p1V3Hf9SWXrjBH24Y I22tLKxn7J4eQU8H2QtQGVvgj mfcbkzhWO5JIOdJRLioI71vPN k BYraVu3wc3Q9f858AUAgSCHyf G10Cr4zvNhkJJYpqBNEdL9oxe mzr8eukumsQtDzNHTwWEo9VNw 0 KZPlhUtjMnPkWQQ9KeT2NVV8y SNprY1eaSbzutrgaK9sBux+T3 W4cMY4gFLozRnfaCI+OA69no8 8 B3IhTeilTgr1VVPoCGS1hVN2g G6yIHNmRScvh6B0vGE2N4Irhn Yigv9in5skLFQsYAqzY83gpNV w o4K9KLXfjAB0PABhsVzlSrOib G93Oyc+CJOacAjpz5SgJrvpc3 ebg3mtnUf1QvNtTBKxovKeoMz u LVF9l3ZaCa78Z94uHQjxYBIjN JXdTADvLRNzaEaujs7vzF0vZg 8+UIJukUQ3oUR9dF6pZzQsPqY 2 OIzuS931JmUzpVBlHkzlj4qqb 0wurDu5XvWrQTHrilKgeIolCV H1j3XyUq57V3TdfUipe1LtZwt 0 kl01tSGyi4N8tMJ7I1TkBKBbx wqexJExmFpdGV4jBWWwooxcGZ FksA9dMFAiM4s7JlWwZwN4CAe u U6HvuvM0WLZyiYEfFKXspPBUq D9fdgpxl1ovggssUwSjDRKgJD q4LBc5NXBzeOfvUhRzZYQ2QsR 2 IAG7nRFtfL0qpHnuwqlndK9vB yc+PUb6l2pggNHdWP5ayMJ0RM 98SS40iYOiq3U5sRX8I2QhJSF p xawqnfwbuRO5QHJoORXrdH54I n6qbAwiZn0oCEBvIAC4OZBlsV SvQ6AnvV2wNnTaKJGhLZSxS9A l iZNlTDlxM825FSddYlT7WNAgd pEmV7VzSKSebAojAiB5f5X0Gi 5YPX40VR74LH83nUVek1D9nUZ 9 R6MxKSQkirlihvntpOF3SDBzX FPjeB99Om7dpXfpPs0hRNEvRX P1PSMmcLBbC0ZacQ3zOpWjTIK w FQFkE7YnqMFaGCtcK569TQfzR bB7YHPhepQgO9RqWLHuvIkpMy Y3q1V3Lr3AAd99FG59MK86dCE g u0D3oXO2U7QoXGEmiplamfzkm QN6NBAyUALomQ50Oq6pjIqoAe 5hULFlLNG2VQVrzWHzE6ZufH4 y NxTbOEYhUEDfQ4SbuQQpHDalL 930MWqjYlE2DMQhcaLvR2BjFF KzoCuySvE3z5A1Po7QQWkjxdr 8 V8LnJxuadCO+XH63ADKjEC78a ZQitUBta4wjeEq0JnKjYLJgVL Y9xVdsQDxmy0OzCMCaS11atQB w c2U6 (more content not included)... Normal [facility] Consent for Treatmenton Consent for Treatment [id number]#1.00CD:12 7 Normal [facility] Physician Orderon 02-04-2023 Physician Order [id number]#1.00CD:1 27 Normal [facility] BMPon 01-28-2023 Anion gap [Moles/Vol] 12 mmol/L Normal 6-16 [facility] Comment on above: Performed By: #### 1 [id number], 6943071, 7763970 ####[facility] [address] [place] [address] Calcium [Mass/Vol] 9.2 mg/dL Normal 8.9-11.1 [facility] Comment on above: Performed By: #### 1 [id number], 3986060, 5897019 ####[facility] [address] [place] [address] Chloride [Moles/Vol] 100 mmol/L Low 101-111 [facility] Comment on above: Performed By: #### 1 [id number], 4762337, 0563413 ####[facility] [address] [place] [address] CO2 [Moles/Vol] 30 mmol/L Normal 21-31 [facility] Comment on above: Performed By: #### 1 [id number], 3636496, 1688490 ####[facility] [address] [place] [address] Creatinine [Mass/Vol] 0.8 mg/dL Normal 0.5-1.3 [facility] Comment on above: Performed By: #### 1 [id number], 3563842, 1762376 ####[facility] [address] [place] [address] Glucose [Mass/Vol] 96 mg/dL Normal 55-199 [facility] Comment on above: Result Comment: If t his glucose result represents a fasting glucose, interpretation should refer to the following reference range: 55-99 mg/dL Performed By: #### 1 [id number], 7641262, 5404359 ####[facility] [address] [place] [address] Potassium [Moles/Vol] 3.6 mmol/L Normal 3.5-5.3 [facility] Comment on above: Performed By: #### 1 [id number], 2243359, 1986100 ####[facility] [address] [place] [address] Sodium [Moles/Vol] 138 mmol/L Normal 135-145 [facility] Comment on above: Performed By: #### 1 4565056, 1586886, 3752755 ####[facility] [address] [place] [address] Urea nitrogen [Mass/Vol] 21 mg/dL Normal 5-21 [facility] Comment on above: Performed By: #### 1 [id number], 8461816, 3519006 ####[facility] [address] [place] [address] Urea nitrogen/Creatinine [Mass ratio] 26 No Units High 10-20 [facility] Comment on above: Performed By: #### 1 3912905, 2876390, 8273910 ####[facility] [address] [place] [address] CBC w/Indiceson 01-28-2023 Erythrocyte distribution width (RBC) [Ratio] 14.7 % High 10.9-14.2 [facility] Comment on above: Performed By: #### 1 [id number], 7540454, 3449985 ####[facility] [address] [place] [address] Hematocrit (Bld) [Volume fraction] 36.3 % Low 37.7-49.0 [facility] Comment on above: Performed By: #### 1 6688099, 6843725, 3761064 ####[address] [address] Hemoglobin (Bld) [Mass/Vol] 12.0 g/dL Low 13.5-17.5 [facility] Comment on above: Performed By: #### 1 0337454, 2357214, 1599680 ####[address] [address] MCH (RBC) [Entitic mass] 28.6 pg Normal 27.0-34.0 [facility] Comment on above: Performed By: #### 1 5321466, 2587372, 9685629 ####[address] [address] MCHC (RBC) [Mass/Vol] 33.1 g/dL Normal 31.4-36.0 [facility] Comment on above: Performed By: #### 1 9962143, 1995886, 1234521 ####[address] [address] MCV (RBC) [Entitic vol] 86.3 fL Normal 80.0-100.0 [facility] Comment on above: Performed By: #### 1 3665540, 8332506, 8547846 ####[address] [address] Platelet mean volume (Bld) [Entitic vol] 9.1 fL Normal 6.4-10.8 [facility] Comment on above: Performed By: #### 1 6043805, 5159520, 2099475 ####[address] [address] Platelets (Bld) [#/Vol] 272.0 E9/L Normal 150.0-500.0 [facility] Comment on above: Performed By: #### 1 6664657, 8765236, 0157033 ####[address] [address] RBC (Bld) [#/Vol] 4.2 E12/L Low 4.3-5.9 [facility] Comment on above: Performed By: #### 1 7288940, 7074833, 0450220 ####[facility] [address] [place] [address] WBC corrected for nucl RBC Auto (Bld) [#/Vol] 7.6 E9/L Normal 4.0-11.0 [facility] Comment on above: Performed By: #### 1 2082580, 9315657, 2183121 ####[facility] [address] [place] [address] Consent for Treatmenton 01-02 Consent for Treatment [id number]#1.00CD:12 [facility] Consent for Treatment [id number]#1.00CD:12 [facility] Multi-Wound Charton 01-28-20 Multi-Wound Chart [id number]#1.00CD:1 27 [facility] Nursing Assessment - Woundon 01-28-2023 Nursing Assessment - Wound [id number]#1.00CD:1 27 [facility] Nursing Note - Woundon 01-28 Nursing Note - Wound [id number]#1.00CD:1 27 [facility] Physician Orderon 01-28-2023 Physician Order [id number]#1.00CD:1 27 [facility] Procedure - Woundon 01-28-20 Procedure - Wound [id number]#1.00CD:1 27 [facility] Progress Note - Woundon 01-02 Progress Note - Wound [id number]#2.00CD:1 27 Normal [facility] eGFRon 01-28-2023 GFR/1.73 sq M.predicted among blacks MDRD (S/P/Bld) [Vol rate/Area] mL/min/{1.73_m2} Normal >=59 [facility] Comment on above: Order Comment: Order added by Discern Expert. Result Comment: eGFR is race adjusted. AA=. Performed By: #### 1 [id number], 3708669, 1654755 ####[facility] [address] [place] [address] GFR/1.73 sq M.predicted among non-blacks MDRD (S/P/Bld) [Vol rate/Area] mL/min/{1.73_m2} Normal >=59 [facility] Comment on above: Order Comment: Order added by Discern Expert. Result Comment: [employer] mercy kidney disease could be indicated at eGFR's of less than 60 mL/min/1.73m2. Kidney failure is indicated at less than 15 mL/min/1.73m2. Performed By: #### 1 [id number], 7847780, 3439650 ####[facility] [address] [place] [address] Coding Summary.on 01-22-2023 Coding Summary. CD:[id number] Gh0bW w+PGhlYWQ+KZ7PPVSyC66zpAL dhL3RB7hLEO6JJBTCPCIVTI5U VR2gbGJ6ZNksH7EvqmFg HdarrMBgEK83WXe3SFQ9eAtnS QgxlY9ruIXfE1z0IyTdAE26hS 57JPteJIGqGoM1XqVarogreDO y V7mgWaDscHGkBrt+PHRhYmxlI HdpZHRoPScxMDAlJyBzdHlsZT 5pLg7tEYAzCXMzgZvmrXKfWyD j p1gtJNMtYJqgNU0fwDjzR6Jsh AQ2COJvd0f8Zl83pTD+PHRkIH T7aKnlUChnk921HpNyo8kqGNH 3 vJFnNAceOYY9T99wk6P6SCFxG LBrSPB7sTP3nG0vqOrxbzrrP8 YqhTWtGiP1NPE0lMNkgC6ilCw n nkvaiT8qAhc+G64UVG7CTANDN F4RHxv0E9NsCtbdiVU+PC90YW GyRO59yYGpoHGoj8ksrJn7YjV w OXCtBKB8fPlhLStcw1VbMISxC 75eoPTqd9O0DIKezUhktNSyJz QykXR4kI6eDApuafqol4pngya n Uzufh7jcqi44aB40O39eMMplG JWxNMW2WFSvBWPgyFvhzj5paN 9wIi8+QSvyz7jvp7nmtGf3DcL w GULqqrLpwAmdYLF6k3LqPw55Y 3CyoZczh2QiInv8rz41dMDwm6 H5yAT9EUfpPWQjvM8cUIjaQeX 6 SGQaTuEtrE60gRKoMMmdTr2nh XmpvXzoHB0mRUFsnzkmTVQqvG 9aXKQwxRPogGzwVK9qHWJvzwn m v091BxVfTCS8FZYsbMJqC6Iie P1wYoMwYRMmHHGyS8IxiUBoOU izD427XJlpDyG9CWOhrbJmQ5P s RLEmtQnaWwV5y8G2Tw4Hl4Eco zqoCFK4BBbvGGGtVdGqKjJyMu C4U3DqLmm1JDLzlKgsCW7kH8D h DSHorhkhcostfIA4AMLwKIGxt D14oKTnVAosPq6wb6M2z692TS UrCYVspU67Rv3xrTywKVAwaOH U wO9crrjmo3omlvgeWtKnJDNrA Cm6LMa6VLTenQjlLxBuZBY3Ia D1YNY6nCIlbH3frYfzwdaqjA0 w Oyc+U98vvY1tNTD3YVD8fwwhX MAgvnIbJJ27NN86W2UhCkwznG FibGU+MXBedoDzlEbxQF9iGcD j n2exq5QzJCpcQ4IlSSOzMQduE jb8PGNwVXA8dAS9rL0aCNXgQQ znp5A0zAB4I1UjbmJmvv6yz0v s SVJsUDyjV88rxESoz8E2HKVev AS9NLTlpVdlAqIhxP76Kgu+PG NhkKvte5WcXtcdt9orq5quzBr 9 JiHiYXJaowPplPfbPSA8k8GmX n41C69qRUioIWOzNNCvDNCvFG EhgQdork0lqF9yUu2+PGNvbCB 3 kXW5hA3fJIQwEjJ5VOslS587Q lKqtNDrTjsjy1emz3clsLs6Ou DaQNLrmeQnjTapIKV7q9GcKh0 8 D57oFXqsWDVrZDGvRVGzXXZzx Aixgx6mkV9lWx3+ZV7qh6vuoy 61aL52zRI+MNWyXJQ2eWmzSEj w OUTncU3qFYosYeQ8TFLvShJcm M87yTJxGHfqDb5dxOlelGorRN 4nTUPihrbwy345SyBqw4bzEHS w aKQhEWzfGDH9G13gt3W4MFSlN OZqMVN1rQM7eW5eoRaiivuaiR NedKknjfEvmBxlVRrmVRjhQ73 6 IHRvcDsnPlBhdGllbnQgTmFtZ Ja9K8DyUkg4LLEnjGogCW9wuF VfIZduBc6rrXnioKczMN6yUNP p rpyca374AoWts3hbWKWrqIJyD UrkGAC7Y07iz1X0FGJrACRcBG F4uSL7xG9kyVgsihursACnfEo g szLzfImkGTgfMFbhH050BODgi ZmcUtNdyiMsIEUivEB9GL88HD 13oGHyx4P8iFI8J2DbMGYmsfr t euvwnYF1CHUsPGCzcO89Fz4un KnxAu4tGNHtAMJ4NCFwnFClO2 UngM8oFjFfTMQuCLCxF1JrkZE t XIewL399JJuyAaG0AWAoupNkB 4QfFWRtkJnzDmM3u4I5Yv4XI0 A5WB43UV66lPCue6G1rWO0T7T h UQUigrzpmoeywRR9NISuRTMza A48Sr7azXzhOk7gITSmMBV8XZ SfhDMiY2KrmZ2vLaYcRILgATG w Z2IanPOpHRohU894UWwjDrK7C DZaxqSvV1XtBWHsfIseDzM3t7 P6Qc4ZESd6MK56TD98dVDit2D 5 qTW5H4UfSIKebymhgsqzgFC0P MShDSVwvV37Ax3hoJqpCc9hYZ WtOQD0URNvyRTzP4UyhO0eKjO j IBIaPZTkB9ObyALhEAkvQ399S BgkVnF9LXDeqoYfK0RbRWCfdF dlCiG7t5X6Vu9BVWDsUO67TGE 5 lHK1DR27KU41W0BwZdlzeJPet +PHRhYmxlIHdpZHRoPScxMD EaVjTjnZqmAF2cIo1bERShXVZ v dJudoFIuMrTlz6zxUSXxEPbfV F3geGghJ1UdmJV6QBBxw2i1Yx 81C01cP8TbaDH+TMYqiTG3zFP 0 xA2tOoFkTkY8BPvqA862GjCyv CFyCgejd5quh8eleMq3RtT8ZF BtwuNbuOvdYVN5a2WnPu50X09 s IHdpZHRoPSIxNSUiIHZhbGlnb e3dzD8lFd8+BXSxuIL0wYS3gH 4cCuOfAaT8TLkfD686PiWekAU v Gwasr7iyd3lmzXq8FiCsQNKln jMarRltSJI0m7ZmYl15L2QfpT gyq9GvCqr9od94iNSyk2I4aWQ 9 M1IoPBQqbabwxSQnoQlbHQ5nZ IRrzhobPOXntI8bODTiH3d9Nl RoMxF1DEwsE2QwelT3QHBmeTP g XAijREP8A66oo4M6EFJnDLUfN DP5rMG6oI6xnPruzuqeyLBudZ foenTqxFhsTSorCRatT399TBX v sIwdVCIvlK9zBFTggCLrwDbwD N5dERVmedndVqZANo7XFyczMO 2YEJjUOYx1R2WgEtc6SOXacIe s JB2qcZUiXZkxDb4ujQlmjTobU B9cILIjjfkpKBQmyA7sMNMrtT BduGdbHZ5hBUVekjlkw555GlZ x QMW8PKOhaPAiO3VbkU5jJuTyR ZSeVLAqP1QdgLSuAAsmM791JK xoLsP4STHseqAdH5QeLIBglMx u TzM8v1Q3Af6aNh3gPO1mKAQ2S A35AP80fAMtt3O3vFS9Z9XhLN KxynotxnhcxMD9FODpHHKdqU4 7 uGFlMSdhEb5fe1S2x037NSZmQ QShgH70Dt9ttMglTETkwVRCmD 5ahtoim9aipvdsPiGyBJEiWRr 0 BXl7XFTstPhxVlAbDAV3CaB5L ZW7mAChuN9ghMydjgqzuP2pLt c+JnUmWNCtsoV4L9JrOoc5UES z aSxpMC0qsMWzYWjuBu9faRljp JyrEM6vYXWzszymFYNbuG2nDI DmxJDhyRszLD5dKSEuqfttd98 0 VqMpPLI1OOIonKHsL9UtsJ2aG oXfOSUsOMOgO1DzwYVwBZcvT5 93WRoqOiG9RBGilrOuG7AoHQB s rUorDrS6v5Q8Mv5ORPfzOH97U Q44nQXaj2D4zAA2H3KvCUHbgv wpprtxpDS9VTOqERRmpZ66gDZ k IMjwGx8za3Z4x594OJMhWBVdy S38Cv9rdQuxHPLdoUUQkR7rre hqy3cmbhzbCrZjOPSuWSg2KSz 0 FXKieZooFnIgUNF4ImW0TLG0s IXjzB0uhAipptbarH3rZxg+T3 Z3mFQ3kHPqaWnjqUP+XA87ne5 8 R4XeErmqGem6YRXcYRE4qLN4h Q8fPBTvKDghl0J3qVB8W0Zqsa Vvua2as5scEZCxCYpcO73qvVH w f8M0AMDseYK3AOWtpOckOtAyq G93Oyc+XRYiwYoaq9ViPvhbr4 bup3abkWl0ImDfDGZjukDjcZw u BXI0x3OwFf10H44jDEbeUNFqP QGvQIQfBQVneXlomw6aqD2tOp 8+AKYbsNO4xJU2iP9aTlPqMhN 2 NBdcF089BkLkhFWaNsotf8bot 7ccxKe1CmPvLNPtsjEhjTknYB Q7u9TmTs23I0QzjWplg7BlEni 0 if57sTOwe2V0mLT3S0ZaMRDhb qgunRTxhOgzSH7fKKMvyzimWL LnhO1xCGVoQ7r5PyOqHjI1LXb u M7RrtwX4NITudSRkAQJqqLZEz W0wtitrt9fjanzeYnFoSFNxZA v4DXj5LKTfdAtdGyDhIUD1OvM 2 GVE3wUCkbJ1tcCxzkkbdwS6nX yc+ILs5h6zqfHAhVD3ydJX4SN 53RO76bDIhn8P9pZM9P5LlYMR p jnrgmcfvlVP7PRCkPFBrdN12A w7zsThwYz7aRRSaYTM7PUPggI LcR2PjrM7pPjZaSXKxDCGsN5P l nAJgGUqeY009WKgsNzB0QYIzr hHlV0RcCOFaxHmqMgE2u4M6Nd 9RFQ48AS96ZV59qAIuz4L8gWW 9 E4SeDIHwekfpvjxpoAF2OYGnS IJrkG54Ew7wuLrkGx6oNUFaIP R9SYGqwPDnV3XkhK9tMtGmFNK w GGFkX9GwtQPkEXnyV151VEjuQ rI6WBQyzcGrK9OdIAOwdFukOo N1b4K8Gf0YJl85WA60CY76gAF g b9P5lQX0G2UeFGGcbqukhgypt OE3DFFqGZZqnT14Jz1pvUtuMm 7mIZKxPPQ3PYLisSYkH1GohK8 y WrTpCTRuHGBqV7KhnRQyTUopD 950IEnfOcD2MMHvokSpB1CaTV JlkHnpHuB4k8B0Py5JWMyjhnh 8 Q4BqWaazgFG+RO24QTHvQV92y ULcmIEsf3kjqWa9QiTyNWCiGH T3oGyaSUdqh1ZkXEEoH51jaUS w c2U6 (more content not included)... Normal [facility] Consent for Procedure/Surger yon 01-22-2023 Consent for Procedure/Surgery [id number]#1.00CD:12 7 Normal [facility] Consent for Treatmenton 01-02 Consent for Treatment [id number]#1.00CD:12 7 [facility] Multi-Wound Charton 01-21-20 23 Multi-Wound Chart [id number]#1.00CD:1 27 [facility] Nursing Assessment - Woundon 01-21-2023 Nursing Assessment - Wound [id number]#1.00CD:1 27 [facility] Nursing Note - Woundon 01-21 Nursing Note - Wound [id number]#1.00CD:1 27 [facility] Physician Orderon 01-21-2023 Physician Order [id number]#1.00CD:1 27 [facility] Procedure - Woundon 01-21-20 Procedure - Wound [id number]#1.00CD:1 27 [facility] Progress Note - Woundon 01-02 Progress Note - Wound [id number]#1.00CD:1 27 [facility] Coding Summary.on 01-15-2023 Coding Summary. CD:[id number]:[id number] Gh0bW w+PGhlYWQ+VC5TMZOqV69xoZX mbX9QY4cGNH6INPDLUXOUHB8U FS1bxDX0YXsiV0BszeMw RscgcAGaTK15NKw6PJU1dVmhH UoquA2dgFBkY6y5WvSqKJ11oF 48RVltACPoDzU0KoIyofbpvKU y A9jzGuLubZFhRkv+PHRhYmxlI HdpZHRoPScxMDAlJyBzdHlsZT 7iDh9uNDAqBKPfcVjayCUgTtT j m2xsZKGwXYfqEO7pjDiyC7Nzo PZ1FLRbz2m5Me16rMO+PHRkIH K5aRdwIFlpe361JbFaz2dpPLP 3 fOJfSLiaKNN9B23fj5V1JWYuR GOeMZY3jKR7pP7fhZlsjtrcR1 ZavRNaEoG3UUI9fTZsdQ6jcAn n jkajhR9oCmp+B85FOJ7WVRMBU U7SFkz4P0JwOnljaMO+PC90YW HuQE68aUXdlYXuk9kkxPw2OgY w HTDpHNG7vHvjGIfsw3XmLPOhR 56wcVSmd0I0KFBjdVfywTYbZy HuzYJ4iV4lXMhueqnov2waqzb n Xuhpa3iltw91zS75O47kPRskH DOpLWM2EGYaSNGjbLqycm6hiJ 9wIi8+BTxtr1obx1ausXm5MeN w QBGfsyGqiEouWDQ2h4KxSe21S 8LhbVqru0MgUfm1lh00dEUvn5 M9oZS9XRjtRFCwmP5hNPzwXpA 6 HLWgPwBkoV84kOFqMNuwXi6qc TzdbIotCC5eOIJhtvbzVVCttT 8bMTWseKXwrPecCW9yDVGvmib m g901OcIyRQG1NLOeaXYqI1Fnj D4wVhVwCSWyNVUkF1FyvFDxJU kgR997TScxIsZ6GODkhrOwU3D s JEIweMaxFzU7h1H9Dz9Ww3Qie zqfKWY8RRxtPXXvJhC5IlYkCd C3I5LkTit5XVJcgOizED7fM1Z h TKBtgfspumzubYC2RVCfVQVoa A28fJWwZZvxWe8ir9I7c788UW EgBSAxdG10Ov4xwVwrJXUyvFB U wG1fnerac9ayxjqwJeEvLUKtQ Ro1GQw4TSBpwAcaHuQtYZT7Vc E1LUC5iWSyiK1kdWpbcjwnkF3 w Oyc+T95nsY6iLFC7XGS9naqsT TDpxoJdAZ20JR56L1MhOgirmB FibGU+NYEatoNdnZndPH9nLqZ j l8ydu9NeSNehG9QzHUNuABflB cx9OBYbKPK3pKD8vF8wMOVgKT ytg0J2qSB5T6TfovXhji4ga5u s UIZlVUlnU00qcMJdy3X6QKHpz KD5YHQbwCtsWfQmcK75Cwy+PG DwaFusq2AcTwren4lci0bavQo 9 RcHwTTWezpGupPooYKO5d7PzJ w18H92vJHilEBMsEDPjQPAaDP LpyOcrtk4ttA8aJc1+PGNvbCB 3 uCR9rN6hNQCsNhG5BJnqN616S bRstKLiMrmtm3xwj2kgyMy7Sa RqMJAwikXcoNltSSD5n5RmHf1 8 J67nYThqABYkTUFiXRTdYYAys Wbjtm4foX3yXn3+YK8lx6monl 26eX81oVQ+RKEoUNC6pYqfXFq w AWZcjM2sLSzuPhE4ACRcMrVco L54dZHvZUniEo7zdObtbTpoZS 1vOYEhdjokc859HaOik1urDEQ w dJEcHTadMKM6C77xi2H5SUOxL DEkTEN2cWF1iX5qsTjjgrtnwS RbiOvalyFskMwlVHabJFndQ03 6 IHRvcDsnPlBhdGllbnQgTmFtZ Jn0W1GjUbw5OZCkaBczEM6jjE RhPIzxKi0tkPxeqArhRF8rCAD p qfmed638WgSjj9ssXEVfaHDmN FcvTIZ5T95cr0U3RRUnQPFpGS M4hVC3qV0nfBsnifvltXZkyUr g ktYboLnpUBakGCakG509BAOoy FskZlFkbxLlAMHtpKI4GA41IT 48rDQsb3N9qPV2U5XgXQMmjls t nwbipVK7ZNTaKZEluF27Ud1sm JleYd5dTFAnJKV3EVTpdETaS7 WucN4yHdKfUWHxWVZcK9RmcEE t QIumO444RQebJqV6SIGvwyPlY 4KrCRFcxLjrHdS7s5K1Jz5FE9 B7QF22MF61nJQjs9T2lRA3C0F h XDYfnqydlbbtkBW2VQRtKUUuo B43Dw3xeGrdTi6hFCJuUBO7MU RjjGFiD4QwxD0eNoEgYOUqDWY w G5MmgXVzNRezC122PLigPiT3Z NMgyaYaX0YyACHsjUdhUeY5o2 Z9Vt7FMOv6UT95FF07mCXph7A 5 nVY0Q1ZaUWPyvtbfqcmacSZ5B PZuKGKhbN77Ti3ymOtxTf2sFJ FsUQD2QOMakGEwB5KnqE0pRaA j ZXDuEKOiR1ObcKBiTDosP220O XvgLyR9HNGiwaHxS0SwQOLqnP xlQkF4j9O0Li2WPFMzWQ96QFB 5 tTI4PP70CJ08H3IgWwiacOMap +PHRhYmxlIHdpZHRoPScxMD BbQgXqnIyoKW2bMa6cPHQwKXA v cSmqmXYhMoTss0gaLIKaHDnbZ A4loEvoI6CttRX1FTFxi4f3Rg 69T84vG5FxdOP+BFFwnEX8sJV 0 aT4uIgNeRjL4FYrhE479FwDwe QItPcjxk7pis9ujnUh8UtC0MG GccqAjwCbbFNI4i3VcWg72J85 s IHdpZHRoPSIxNSUiIHZhbGlnb g4ysQ9eHy4+TSNkbAZ2mNQ9cA 8qDcAfTsQ1UYeeS530EmCfwDC v Suidx0umf1ccwBf4YbUlWWIrb fNjhZrjEPF9p0AiRg97U5CjaK gpg2ViEdz0ql03jKSni4J4fJA 9 M3FrJNAavlxngDNwuFxbUX2gX PPqyverYRDglW0jHOEqB5x5Rv VfPoQ7VPssG7LybjL9JEKsyLG g TGoaUEM0H60vs5W5RSPhEALnB PE0aUU0tE7qrXxytcbkfYQoaD zbwyQmeDtwTKtpANekL379FWP v vHzdXWZwzD9mMCTgeGIqkJdgK I1aEVFedjxiGbDTXs2GEcqlBH 1KEStXSIn4K0DfSjq8YPXjgSm s XB9jpNEbTGnySr2vwTnhzNaiK P5eXRJmrvmnHDZccD4fUQSwvU EljGfjCX7tHTZlpvjtn772TrJ x NZH7VYMwpNKcE7RppV7iEdMcZ OOiHLMtB7MqwQEhVWxnU430AU lyJqN8RHTdmeBiH2IeRBHacEl u FhW4k1B9Cs8yDi2iSE2wENK8R I90PM48jGGbv6Y6kLM4G0UtWY MnvcqyrnzomTJ3EPEgHOPfbS2 7 qRAdNApjRi2pu2N9b962XURlT QYryW98Nm9amQyrPEEhfWAXlE 0qnbvel4nscniqYtPtIJCbLYh 0 LJk0MXXfqDglZwQaYOG0TjE0Z IX2bYWszY9ctIvkvmfhiQ0jTq c+RnTnGDZsxaV8O7FuJod1AHO z xFxcFS7cdSEeAIsoHx6tsLgwr NclQT3hLXSwedchRUDdaN9aJA ZmsRKofNwlQT2yVCRvtxlaj67 0 PwKoNXN7NKWwxYAzI1CfsZ5vF sQuWPVkFFVgC3TzfGRfNVjlS8 37TQayRhR2IGZmntNjW6KdART s yKjaScU0u5W1Kg0SYEpiNO22L K74nYXje4P9dZL3Z7AlHVUwes wovcatxXD2MRKhZSZggJ04mKS k VUqxRy0ag2D7h398OXIzUAKey V61Fh8dvQdkEQHnvYZNpG6arw mpn5qxaulgKiNyNCBoONk5RPw 0 SHKboBvwPeAyCDF0GiJ5IGW6f PTmoP3zdGdpxkwjlU9wIkr+T3 L4xHO4bOFguSkcwJQ+SK58lr4 8 Y0ZpMwthPyr7VAIuHMD1xXH4b S3eIBOfKNwhd3T0gJM5U8Ybyw Vvzh4kx0yqVLKpJCkjB25ocRV w f9H8ROLchJK8CYTaqIdtKoWsk G93Oyc+CDNuwKjmm8JgFqzig3 nce2dcfAq7OhRrGQUobmZtkUu u LMJ3v4VmLn31T53aTOswRULlG AWfKIQqZGJtoLmccw8ilD0vNr 8+SSKtdLP4mLA7uZ7mDlJzKyA 2 SYgzL296AlLqrNMwIjfuj8mfl 3eqjUh3MqVuNWUrynCixQyjMV V4q2GrQr18R3DdfAsky5PrJfz 0 sf75hXMhn6P3lSE7L4LkVKCbt xjeuKKgwLsmTM8lOGVnuyaqDW CgeM4zYSJaP8q5ZpCoQfZ5VPp u D1CutuY3HDMjaFRlWGKjrNKRz J0pkrgqs9fzqfnoLgVjAMClAT y7TTf9FMIciJwaYyMfDZO7QuS 2 EKZ3xHBrmZ8zbWsjpqbzhV1zB yc+FDx2h8sfrEMtDZ2erYV5GG 69NT75fERjs4W2eHI5P4IhXLZ p ntycuqkwjKK4QRYnUURtkQ95I t4yaBnyOc1aFDKuTCJ8ZBEigL YdR6SjkG8mZlErKHSbWVRfI1F l wDXvJQjdO998BFocSyI3HDWnl bTvA0NbXYUjnHzbOeB2p3X1Xv 7WLG94FB74JB10aIIdh4T9bFW 9 Q8JpYPDbfrdxtuajkKR7NABtG GLtnU05Xz1wzMplOj7nASJdSM Y2ZSGonOPyE7WgcR1nDqCeHRR w JENuE3BauWCpSIzvC937NZhrJ mS2VXGxrwYbB3LcUHRnxGbiWw D6q7F4Ie0ISe36CG60OR50uJK g p2B7yDW7M8NbBQJcefajgusgu SG1BANrAMNbnQ58Tk8ucOxoTv 7tFSHhYSP7MKJugRIlB5BjfG2 y NsXgDMAgPKKuI5HoeCPdCTiwQ 445DJxgOhV4RCRnimOjJ8MqXP NbqOctFuF3y9V5Kz3POTygppo 8 G6UgLzzbjDV+RU91ZVJnJA84x FTqvJPxs8xvxKn2BsGsHNXlJH I5kEfnVTpfe4QoCRLwG51xoXS w c2U6 (more content not included)... Normal [facility] Physician Orderon 01-15-2023 Physician Order [id number]#1.00CD:12 7 [facility] Coding Summary.on 01-14-2023 Coding Summary. CD:132467TG:[id number] Gh0bW w+PGhlYWQ+CN3KWHHaQ42uyAK rtX8TQ4xSZA0LLJIQSOQQPI7Q PN3phEQ9CLwfH9DdbbIe UwrdfDVlOE45ATe0EYN0mEjiD PpxiQ9bzHBdE2z4OrJqEE67tI 81CYapQISmVlH5JzSdtfdixVU y L9yjGpIsfDXbJmz+PHRhYmxlI HdpZHRoPScxMDAlJyBzdHlsZT 5iYi8yLXUwPEPxdTjhuSImHcG j m9lwZOKqNOrnWS9ijXbnB3Gnr VJ2FMUbw2d8Er29qTM+PHRkIH K9jTiaOHoev823ZdKsf3dfBJX 3 vBVtLAckIJQ1H85uw2R7UMHaY IDwBXP4jOJ6jD2fhKjurbwbI7 GqaQYcMjJ0SBG4cLGpiL7jvNt n phruiJ8yWql+Y05UBB1FNGCPC Z2BFfp2J5CcCaygkID+PC90YW MmSB73sPZasSCpw2piaKy7CbE w XNVtJSS7bIopGXmlj3AgRTGzU 47kbKZkk2A9GQIncPpyjUWxQk XobGR6sY2lGDflzqqtr2lgokz n Fcjze4rvpb00lR47N91nRRoeU UVnZCF4GSHsRVNinUucqt6qhH 9wIi8+EJdsm2ine9cgtMe4AdU w ZLMhigRxiQawQAY4m2NySy32B 7HmfTvtn1OfJbu5zz18hRCif0 T7dFH0FMnsFYUclK2vVIfpUsJ 6 FMTkAwFbvH08tEXlHVaxXh8tc BeigIzyVW6jEOXcvfrxHWFttE 8uIXDzxPCflZndEW1zGYRhkej m u794WiPwJWW3PORzwYZuJ0Rzp A7kQhYyUJDmFQVhN0KcrCQwUX yrH882YTlcNxC7UBGdixRfX8U s JHZqtOlgKqF6m3P4Op0Ro9Eef zhsCJJ0TYlzEQIkOdK9QyXeHp G3S0JfYmp0AKGrdBalEP0oQ6D h PLOoeewwegaeaTA2CITiFSBxw N27aNGwHGlzOt6bx0A1t383HB IlLGFlrH50Kt4tyQctGGVitXX U kP0alfbcs7bhiocrQsRzNUPyJ Fz3OMt8MBCxjZnaXiUuRLK3Gt C3VQK8vQNklQ8zuVqavgjazP1 w Oyc+K32vzP2xECQ8SJM9zfytY WRpypNkPL56OK15Z5FmLsdqsN FibGU+THKptrIukWqqHT6oOyQ j o8nav5UxJXxcC4MsCVNrKAwbC kq8TZUzSMJ8tQN2oQ8hZIWhKL xbt6K5vCI5N2UpnzQlkb8ap0b s HWVpNOzkL15rtWMlo1K5QEDav HQ5QWUzmPfqOqHoqZ31Zvh+PG KxqVfzb4GyBrsfd8kye1yqdPz 9 CzZoLDNusnAnmDizICC8t7OvD k46O92nPLbpSNZnRDHbBNYlFI ZxwOefdh8dxG3mVv1+PGNvbCB 3 sAP0cL1iUQWhPwD7QXutD774P kXqlKLqGeszk5qvr5avaLy4Tp VhNCEguoPgpIcwICN2b2VoLo8 8 S50yQEspLJBjVEIvFGZzVXMdp Twpha4ioM1jWa9+AN2mz8bsds 23gD78jTP+WLXhOQF8uNhrXEu w KPAewT5fJUgaSdY9WHTdJcQwd U70kLBiCRmhSe0xlLympIjnVQ 5tXZAquwohe104LbSqm5ypBRV w jMIrLZycWHN8X06fb0U2JZAuN IIhBYJ4gQL8pK9bzFqhwghzhQ RlyShhuwBkuFxyILkxKPdmY35 6 IHRvcDsnPlBhdGllbnQgTmFtZ Bf4O0FcHvq7NXQsjYluBA9orV HaSUdjNv8ilXsovDlvUF6cWEQ p fgjlr824MdKqk6ycTDPgzXTpX NsnXHD3O86ea0D6KGUeARZiCJ M6dNN0rT2yxInbljbxlTVvuRx g lgWpaMsgQFpuFWllZ793PJJme HjpPkEdpxEtWAHkdWC0EG61OT 11xOCtd0Q7rVL0Y2QmJSZupbz t ckjtsPG8LVKnLYAldD82Ri4vf KvxXw6zAGNjZYS3BYGhjABbI7 TfeA2aRsCoUSEvMGBvW2FfcSW t ILvpW450MUgxFoJ0NOTlctZjH 5JkNDVrfQouFuH6s8J8Fg1CZ7 M2ZH86TM83lTSlv9R5dMX6N6W h OIRadtaesxjmnIN9AKJtELZwd H81Wn8ufElwOc8eQHSkTCA1DQ IeeIWoI4SyrT3wCnQeNERsDFN w Z5FvfXUnWCmcO020XXmyMvF6I DLsqlZqE5PsTOVjqOomDtF7m1 F2Ud4XITo8DQ15JD65cFGte7S 5 uSZ9J4ViIHFhihdoqruxqKF6W JMgBEJasW30Rj1koDdvJh6wGA KxTUP4OUEegXZwI9CnvV2rFrW j LMOuUGPgX2ZnfHFqPMryG582I QzjPyV0ZQDysyXfT5WdEYXhbC szUyC1w1G3Yp0KQBXiVF09SUG 5 mAG3KZ68UU28W5QcEfrnoSWul +PHRhYmxlIHdpZHRoPScxMD YlXwNzhYjbXG6dVg1cWLKzMNM v pMtkoCPwCrMxd3piBGRdKSzoS G9fnQkzM5FfoBR0ZLHlq4b6Bd 64K83sU0YjjON+JUJooUO3lMS 0 qC5jMsQaRnP0GTjgR210UcGar VAfYjtdv3wxp4xeyPl0YkX0LF TogmGnzAwvCXF7j9AxZy46S00 s IHdpZHRoPSIxNSUiIHZhbGlnb o8vuF9qVk2+RCBeqSI4uJZ9uR 5oNeBmYqD0GUoeC100YvBcxQF v Sfglw4nop3lyxNe4OmEbJPZoy eKyiFjyZHV3l3YmZo12T8AxvH sfk1XmHns7bs84mSFjq7C9hQB 9 U9GwQXXgukntiMBpyHpsSJ1gK VOoswxpLADavD6bQXMpW8g4Qy BoZfE2TJecO7DknmX6UKSsiPQ g YMciVCE5B67jt5S1JBPpJTExE YF2xYO9yO1atKpautoorAVeqK xyfyFtoUpzYWltDZfsS089TML v dYibBLNqbD7aFFSlwKZoiVttM H0fSZLaagxyElFGQn3BTkfbET 0WFZkBOCx4Y8GnDnp1TSNfnEg s ZZ4auDBfSPzmJy4crLkfaAkbV Q3eURZaovrlVZRkfY6vJKNnsG TomBhzKB9fSNZshfskz942HuB x PSW0TOLjuNWsS4GbaB3nWaDpO NZkHLJwL9XkvCBnOPplZ747OP fuTyT3SBTivuVgA5XnGIUoeCr u OsW9t2G5Bw7oGg3jSB8jSME4V E24BO31wVNxk1U3sNP4H0UoBP YbztyjhzqpmKR4HXHrXTNwhV1 7 zEKbIXmzXy0wk9Y7j200PENfB KHovY29Md3rlTldDZRryBKFjQ 0gqbplk6rcxbunZyBtYTTrUVx 0 YBp0DGJmiTcyXoEtFBJ4DdI5O NP4iLXcjO2ftVdirfbvhU9fXs c+PhUySTMsdcZ6F0UzTwr4EXF z qOraSJ6jaYDkGOygSx9gnKrif NupIF2jEYHoeqhyLPDmbW9lSP CoaXOjpBmqVS6vCLYelohui15 0 IyUwCFF5BPPgfNYiU3PibH4iU yNdFGZmPUJxQ7SprCSxYWqjI3 01YZryLmT8KRShybUzD9LkOVE s fQhaToD3m4Z1Ss7CDTsbTW45S S21hDJuo9I8gEW1N7SgSYWiog epsceywUS3TYBqQZJbfE87hNI k TWoqVx1nx4M3p049PDAuSSDbw C91Cs4qkUjdGPJwlYUOaE5ygo eoi9liwnygNuTiEJPaDTh9NEl 0 SJWicTvjFuQlNEX5HbB2HJV6n WPylL0aqVdczyqajA7sKou+T3 Z3rVX0yZBjzJwxfLM+HL42ye5 8 C3SvUuckVrn2ZTSgLTM6mXA1c B2aNXJsSMvdi5L9cKL9I4Snww Zyhp8gq9bjBUUzAUkwY91zuBT w m8Z6KUUwzYS0RKVlxCmeUvKom G93Oyc+BGLosFeue8CiEijso7 zzg5sqyIm4YtZfMGGhrmDkkQv u LOU3y1WbHr55M51zQYreOXQtD GMyHRHhZTUcdObpzj4feP9yDn 8+DKOnaZC1rCF6qY2vSyJgGxV 2 BYsxZ481JfIvdMWuZtubn9wop 5lecUt7ThVtYBPjrwUobDmbBO E2b6XhZo71F5RiySirl8LoGro 0 uc98aDJre9F7dNR3M0AgPVSwe cnysDIuiBkfAD6jFGHbklnbLX OctS8nJQQvZ0p2UsRfNjA4JIa u W1NrqbB2ZVBhmCCbKLCnqKKFi E1xlasoo2sncpnzCpNlRSKyWR e5CJx3DYIypTiiEsGxOCT2ZsK 2 RYE1hZLmcL1pyIhbpssprH4uT yc+TPp4m3itlEWcUN3vqXN4TC 05XC07kGDiu9A1rMB5K1NsOXD p yjrrryhohUJ7QWSdRUQyuK10V j0fkLowPl2wISMcNLV9CUQytB WfQ6ObpY5nEgKjZGHfQFBiJ9A l rWUaHAfxQ184GMvuHkW3OVYmd eDpQ9TzPGOscGugUkO1i7R4Wj 2MCD32SV95NS47eZBgt8P4wQQ 9 F5UuSVXqsyqyvwzvpRF2FFUqS RGsrZ68Wi7cdTbjVr1jQAUcFF R7XTResIBeB2RkyG0iIcHuMQR w NYShM9MpxCXiHJoeW369VLevN kB8XMLqsuQlE5TnLQSbpSpaQm Q5w9I1Ld3MOq44YE83FQ88cWY g m2R2kUX5V2SiNJVvhdbdpcveu DR6ZUUkKTObdH38Zj1xiNggRm 9kJLDxQWB4GUGkhBUdR7ZajN9 y QvCfAGNiFNUhL3BryTOyKXwaF 518RJjlFjY6MXKpkkGgX9OxJN IeaXrpPkS1y7N5Qx0HMHqhumd 8 G3WyFaahnZI+UT18YNLfRE34s MMmwWYty8facBy7FgQgXQNlPD M5tMvdZUork2DzSKGiL40zqTU w c2U6 (more content not included)... [facility] Consent for Treatmenton 01-01 Consent for Treatment [id number]#1.00CD:12 7 [facility] Multi-Wound Charton 01-14-20 Multi-Wound Chart [id number]#1.00CD:1 27 [facility] Nursing Assessment - Woundon 01-14-2023 Nursing Assessment - Wound [id number]#1.00CD:1 27 [facility] Nursing Note - Woundon 01-14 Nursing Note - Wound [id number]#1.00CD:1 27 [facility] Physician Orderon 01-14-2023 Physician Order [id number]#1.00CD:1 27 [facility] Procedure - Woundon 01-14-20 Procedure - Wound [id number]#1.00CD:1 27 [facility] Progress Note - Woundon 01-01 Progress Note - Wound [id number]#1.00CD:1 27 [facility] Nursing Assessment - Woundon 01-09-2023 Nursing Assessment - Wound [id number]#1.00CD:1 27 [facility] Nursing Note - Woundon 01-09 Nursing Note - Wound [id number]#1.00CD:1 27 [facility] Consent for Procedure/Surger yon 01-08-2023 Consent for Procedure/Surgery [id number]#1.00CD:127 [facility] Consent for Treatmenton Consent for Treatment [id number]#1.00CD:12 7 [facility] Multi-Wound Charton 01-07-20 Multi-Wound Chart [id number]#1.00CD:1 27 [facility] Physician Orderon 01-07-2023 Physician Order [id number]#1.00CD:1 27 [facility] Physician Order [id number]#1.00CD:1 27 [facility] Procedure - Woundon 01-07-20 Procedure - Wound [id number]#1.00CD:1 27 [facility] Procedure - Wound [id number]#1.00CD:1 27 [facility] Progress Note - Woundon Progress Note - Wound [id number]#2.00CD:1 27 [facility] Coding Summary.on 01-01-2023 Coding Summary. CD:225385JJ:[id number] Gh0bW w+PGhlYWQ+JD5SUFJlL79dyYH xwW6PP0wHQW0NKGBXPZDRWW0J BI8arXU4PUxlK3YscoLw KhoueJFdFW23IJo2HPP3fRcdT FccyK3feUWiB5b0XmVnSM71hT 77UKxfCWByQkE7XcCoztbqtXQ y T4haDeXsiFSjGey+PHRhYmxlI HdpZHRoPScxMDAlJyBzdHlsZT 8pYk3xVMNhFYOxmPydgNAhDmV j a9xwDEFxAKmiUJ0opIsdL1Bsr WI8URJhj9c3Ia38sWH+PHRkIH X5iTruNCuxh623SqAst1vyPAR 3 lFDpSNboKIL6Z63rd4H3SFBdO KJlPBM7pMZ0aA1fwSemcoftL4 EqqCPlXqG2ASD4fDZbqK3aaAu n lcbydF4eBwj+I61GEY1IKWESI R2GQfh0Y3DdDemhrQX+PC90YW NqCP57oCVuwYGox8xhaDv5GwV w EYYaTPQ5qAdvUOgug4TjIBYgY 40unYKvp5U2DXPrsAttgVJeKg XzwWG5kH6eJDxefogtb0mnjqa n Hnfde7cvno70cF74Q01pAIcbQ SOoRQC8QPZqLMSzmJqbhb6ojC 9wIi8+WZsya7cxr0nowJb1OnW w WUNujyHxgMluVBP2p1HvXk07Q 3SycYjoj4EzDpd6af53wFDsu5 M0mYZ2KBvxEWKzyJ9rURcoAyH 6 PDDjZcLlfR42qJAsQGtbLn3aw GoriWpnYI7eRNYukmdoRXYhlY 0yWWUvdIGpeKloZS5zSYCxvow m n559XyPjSHU9SHEkyQMkH7Hpk Q4aLqRvJTKjPDElB1SvkRHkIV urP970FXadEgT3MZRcnsImW5H s ODIjuUxoRxQ8a6B6Mb0Eb8Feg tywYGY5RDgvFVWaZoXyIgKkCf T4B6IyGuv7SRVpcRbeWY6uD6A h OGBxkjqztfmrtST1KIGbFFFhj B37cRRsLHdmZk0fk0Q6i696NO BqYBRgxU51Zx3uwMozHVTpnWK U gF6cepqss3klrkfvTeSaVAOcC As4VOt9UFRmhMdwHpGdJDL2Xp C1PTV3pWKpdO5tpEuvlfmvkW0 w Oyc+W70stE6pGQC7XBO6gsrkW YXdegDyPI05TL43N9XvThevpW FibGU+PVGhzjQtbMllYE0cLqJ j m9iwl6WqMFyoK5CbPVGqHZqeQ he6YQZnGJY9oGV8cV3rSLDcJE jor3U3oMO4J9AuvqBgmm1dy9j s HYWrFIddN60btVMyl9Y4BRXeb DK8RUOtiDbrUwNdxR31Hkc+PG VhkHmwp6HsJnkpm8sel8kcbOi 9 HuQkCRNhgaDtwSyoRKC7u1ZtH v27L01dYMscFQKeBYAuYQTwSW LsvEodqo0xdR7cPy1+PGNvbCB 3 hTV6lW5pQCDjFzN5ITedQ337I tYfpCEvHhkeb1aav3aeiQk8Va RpGNIfnkRrnVraTCH2j0XtXb3 8 J42nFGevLCPsZIVjDDVuVTVng Pjuyz5vkO6rBg8+OU7gq4wsrm 75bF70mDR+WVAdWKG0hJhdUYd w RAJmqY3mRWnsRaD8FUQiMzKup F49yMOoAPrdWx6qiAbxjLkaPS 2oQZNiczzqt824MvJmw4awARW w jFMtHPleUVL0N73uw8M3HAElV XTiGQI2xBU7eO8hpAjhpugiiP TktRbtadCgvPrvRTbuTByxT78 6 IHRvcDsnPlBhdGllbnQgTmFtZ Sq2B2FpYhk7PYUnlYxaRP4lrP TpUDopVn6ofBtbuLsmTY6cBUP p geunj006PiXrc0znVBIwiCPuV OztLWB2X21mv3K4QJUhRXYvMA G1yNR6iH6yxJtspjgsqDBmpNx g paUwgBgrSFhmVHigO626AZPqc IhiBzVglbCzJZTddWA5HY53BO 93fPRlg3K5sJX4O9PkFWXrsnc t fcvywBE3MBMnJEDipP07Nb7br AjfRx8lUGYvFPT7UKBpcERtZ9 XuiX6mPnOuMDUoFTBcQ9QgwDF t KIhyA450UZfdGnG3CUIowsGqK 1JgGTIryJaoCuD3g8X9Wc9FK8 W1OW62MJ14yIWho4Z0iCA4Z5A h IUFocelmrsscbCB2EWUuTNQeg Y57Ki3vsCfzMq4wWCKyIAP3PX MazBBcS8HhyF1cAbWkDNFhUJU w O6VvvXMhITfkN065FIlbMrD9Y CUrrnHcI8TnWWJkeWkpKaY1r0 W8Cw6UBHr0TA12LM09eRDbo9F 5 zHW5X2IfFDBdwktnjcddxQI2V MGxBKCjeT08Uh1vrLjuVo5sTZ XzHHR6RPOinMSuE2HxvY9vLmR j VTZhFGWhT5VlsWSmLJgsO439A VwjQaK0KWUghuAtC7QkJTFwgP aeIvU4a3S7Ae9KWTZfVF22ESB 5 mXF7KK99ZR42U7VhKwsobFQee +PHRhYmxlIHdpZHRoPScxMD QpCjAavYgsTV9rMe6fVPTtWAI v dPmrnMEvEuTou1ukIGXkKPzmZ C7wtNxqJ9LqqYH0LVFwt2i7Pb 77O03lQ3RsyKA+BADpkAN4dWB 0 tC7iMeLlPeZ6MKkpG009AfZan WGtFuagf9taa4faySa7NxK2DH PnvdHzzMduQJE4m0FvSx28E04 s IHdpZHRoPSIxNSUiIHZhbGlnb u0guX8vLx2+KNBdtDG1hPY9xC 6xRkOrDyH0XOmiB351FgJulIX v Qfszt0iao2pofBk1ZxWpAPXkp yQyqRbkLRS6w0XmKb38G1XusV mnm6GjOye7bw21iOZfj6F7aVL 9 S7JnLGLwifuoqLJdkFqvWO0fN LDwmccaQZXzuF7hPKRnX8x9Hu UyDxE2IAzpT1GqzsJ8JQSctAU g FIyxNXU3H89rt1I5EFHtULJrQ ZG4mOX0rB2brObokmodlFSjmX wfuqTcsYanATlsJPelK813ZVI v sJviNZWflZ0vDKPvyHLvcGgxJ N5rVAEzxbpeJsYWQj6SOvxcOK 3XKDoNHKe0S2JiZku7HYQqtAk s SH3utQVjVXjcZo6ffCrfiOekZ O0dAGMxssezFIYegW2vTULdbS XuwXchVQ2nNQCdzpzoa251IhD x VJZ8FRWiyLCkX4WswD6eOmKkA ZDnNBTjB7IieRJdZAjmX166FW ocDnY9AOStyiIgX9DsRSKucVx u RfB7m9R5Rp3uFn6lRC6zNIQ6X Z45PT19gTSky9Z5zZW2S2KqZD KnbzrlercytVK4LHDrCZRigD3 7 fRPeRAhjGn0pc6D7w435DSGiM AReoK67Oj5gtBnoSLBqyCPKjL 6zplcvh6otxzbbOcBfILIhREr 0 JEj7GVZczUujNrJbXWE2LxK1Z ML7tDDobH0lrDyobxciwJ7rCb c+KsZxMTSmpyV2P5XjLbx7JXH z fPmkFQ1zpAEjKEivXu7unEgnb RldZE0oCRCoyzwwGVSmvR7lGT WjcPUcwDxvTC4jSPRfnuzwh07 0 TtDiCLT4EXYptREsP4BdfX9fP vDzLKSkUDDxH4BrvZBsPDhgI3 10YPofJqX7DSOvvxCcY3HqAAI s lGmzCrY2y5O2Ke2TOKbbYF97J R83sHUdb1O6iZX8K6VxHJAipb orjcligWW2BMGrFDSlgT56zET k DLjzEd8ty6S0h255IEHjAZDso F84Nk4nhXmiTOOheODFbW7sgh rbu2dymmfxQhViCRBpGYy6YJh 0 ORVlaThjUdCfMWK1SaY2HDZ1t TJvtF3woNhedugcqZ8fBpx+T3 K7jLN5wFRhqKipwCX+ZX08ar2 8 S5IuHjxrErj1BRUtUNH7rMU4y U0pAHSzJDphw8N5lWJ3B6Tsah Mhes7zc0twAPAcNFhpG79bjVF w p6M3XPOdjTF5UOIhhRhbOhFzj G93Oyc+YJDqiImwi7DlRjsid3 hrn0krdDz2CqZlAOSpxcPyrAn u WGI6w7JsLi97U63lMKmkIHBdO RYtNJQiBQIejCcqis2vwC1lLj 8+CPOwaRR0uUP7oH1iGlVvQpE 2 XSuzK187IoJmaJObYqfxb0cad 3rzuAh5OrXsMREnrsTrpBooLL C9d6QtAy82W8GunCqqw7TrMhf 0 ye10qLMgf8M3gTL7U5KbRQMja odbkCKopHbdRZ9sWPBuysjsBB VhaR6gGGVnF4t1IfEtIbR8HPt u J8OxxvM0EJZgdWCzOUIouANIk S3xhgekp2rsqqtbZrXjNWKzRF t5JSb1QHUyuXfsHzJvAJR7OnM 2 GXU5xQPhgC9ywXqcwvjacE9wF yc+SVy1z7yskYJwYF0oaXY2ZD 35KZ85rHAsw5Q0mIN2J1QbAQH p wyucwvupiSV8ZRIwZKIrqC54Y k8crTxoHk3kCCKoLUJ9AMCokY YjY8CtfT1gKwKmEUJhEJUrO9X l oXOsYUyuT689YTgwIyQ5OGUbr wMpG7WiHQJbuGxkLkY7m2I6Jo 0MVN57UC89HH92oQFjm8A3gNZ 9 K3RuPPYmqiscafyneBI5KERwU SFzfS44Ae7gtEjfCp5kXQTlXX U6JVAurJIkD8ZcfI4mIhTlOFH w HTLnB1CmgOMyFLmfP688VLnhX cH6YSQdigPpH1NgQQHtsKheCs Y8f4Q4Fc5DPq15RL13PZ44nLX g z5B9mDX6P8KvBJRtcxqpqdvei WP8ICTnTIHxeK17Er6ykGadFd 6sBFLzJJM1GKVghJPyL2CiyH7 y UpKsWUNmCFDnQ2AfbHLeFDgrM 100KTubIqZ7SKPaduHfN5UuCZ JhtNpaLpF3z9U1Kv0CDPrivbp 8 T5EkTzdxkWJ+AD19MAQjLI87c XFryLXcp9ssoWi0NnUfWUWkDF W3kSaoVDsxp7UjKTMjQ95npFN w c2U6 (more content not included)... [facility] Consent for Treatmenton 12-03 Consent for Treatment [id number]#1.00CD:12 7 [facility] Multi-Wound Charton 12-31-19 Multi-Wound Chart [id number]#1.00CD:1 27 [facility] Nursing Note - Woundon 12-31 Nursing Note - Wound [id number]#1.00CD:1 27 [facility] Coding Summary.on 12-30-2022 Coding Summary. CD:[id number]:[id number] Gh0bW w+PGhlYWQ+RE4KLAYwJ31lrMF qeB3OZ4aAKV3LRCHEYOTAUI1Q SH5izZK5HHfiP2BlkvLq MqlreWNkVL70BPb9BEO7lGndD MlbiQ9nnMRdE7i4ZbYeGV08tX 18DUvlLTXaCfA8SjTmyfraiKE y P6vaQwYrePOuHsz+PHRhYmxlI HdpZHRoPScxMDAlJyBzdHlsZT 7kPk2jQWMjNCHazBfexTTbBjW j z2dcJEXgNVeqAZ9fbQbbF8Qyy MY5DUMqp1r5Pp81qJT+PHRkIH A3nQrwGHwlq854WlVgb5roVMU 3 iSPfZLvmTLJ1H56qp3J0DXGdV GSoNHZ9iME9mG6ptVtwktieJ2 FayCMxBkX7MNZ2yMOpiJ7frSc n ndeanS1pHju+E67MSF8OHVWHQ B1HYho6E4VuOgqqtUL+PC90YW ZcHM25pQWskGBoi4zmcLq0FyB w EMMnTSI1xIwmWBpcm5CoLSBeH 80daHKgl4L8LPEfvZnfhTMmMh LoeJH7vK5lXRmijfjmo9kjcwi n Slczd0rsrf08vY89Y56tNUlhV IZgGDM0MNRyYUCfgFmkbn3lwJ 9wIi8+MWbgd0tal6fxyQw0GxU w HMKmuwDpgMbzZGH4h6OtIp23E 2NbpFcbp7UnLnm2fd48tQSxd7 K5sUC0NGxiKPHbnO5oDJjwRtY 6 FEGqNgFbkL07eNAaPXxlTy0ee WlfsVbzHY5uJBUdihawYVQktI 6hYTXjbZOhdUzjPH4gXEZcarh m c057UjLpFHN7TGYfsFIfG7Wwl X5fXzUkXUEkJHVeF7WioSGdRP imH440CNfkRdY5UKIgcdWzC4L s ZDVkqNwjZnM1r6E9Qu2Cy0Hvg qmoNOD0TIhrCYCsTgKuByYbSv Y9V7GmBlx8IUMumOjgNT5rI0X h SLRkqavleooanRX3QUGtMCVxk R23nOJcJGhaZd3kk0I0c235VP NvTYQgsN41Lb3kiMpdWEJibRG U yT4opfmxx4ilrkohJaQnASYrV Wg6OUo8OHPqcVvnPlHoTVS4Ac I1CQX6zADdeH4kePgfnbovwF2 w Oyc+U40kiB3yMST2GWI1dmduA PFedpZvDK84HR29Z1AvEjhzdG FibGU+DSDfalHkfFcnZV7uKzS j t4lxc1ArJJkqZ4HeTXHkNIgpQ bj0WLZgEVQ5cSL7cT0mQCPqRI fto2E7rOJ9Y3VshkVhtw7zi8o s PBLqLZqlV31ugDLpo5C6ITIlb XX6AJUmvSzdEgYmjS85Yju+PG HciMtta6ZtWmvjp8mqj7virHb 9 WjGtLVJdywGfvDvdEBO9a9ZzC v47K24tLNmpKCItVYHhSJLmTQ PkuCrbcu4wcC7mCq6+PGNvbCB 3 mNI2pT4lXBXeNqR0ZMaxL764V nGsgBZcNfpsb2cln8eafGt2Ld LwTWGreqQkbRqmOTW3y2OaKq0 8 Z36mVRudMBDdESFpBPLaNRMiw Jnklu0xhP9oUe2+EW3rp1tnka 58cW28uQI+RDAcQHZ0gVvuAGk w LFXohX1dKDirUcO5GFVsGvZvr L51yBZlWLjnXq9uhNgooHanMD 5gUXGqyakvc876YqOsu0uuDHG w eNVwLXzfRZI8O01sg7E7QQVsK DZsBUU3fDO3gG0hoRaprmfozV JmeUwqoeWthOkfPXvcRPbdD70 6 IHRvcDsnPlBhdGllbnQgTmFtZ Gn8K1ArJiy5XLXmmNqiAK1bmY InMLsaUr3tsWbtoIlvJB7aZVW p ujxmm218RxTkl3pvRSUdpRVnZ JcwAUX7L54ya5B8ZRGqNJAoWQ F3zWE8jD5lwHdfjngrmTMvoLg g pvAavXfzOUbhPFpoL991XTPzo HclKgPmzjCwZNIwsMF3JR39DN 27jYUgz9G7mMR7M7ZaMQZemno t xbhtdDP9HFTmKQRrmH68Au9wy GsdUm6pWCQmAMX8AWAquPIwT7 PqkH1xRfHqHSXuWXCqE1UjnVX t FUadN861YTrvLoX9HPThlzZaJ 2MgPCIxeXelUwX5r2I8Wf8TG3 M5TD05SP36hEOdg8N3fVX5P5K h ICTcuppsynjziWB1UKTwVFXcd P30Km5pnQgvOo5dVWSqQWY7IS VlzELdG0CwvI3bTxLqCKJdJWA w B0BqrDIbNKqlK585XXeaIlR9W CFisuZcI1TzVYSllZcmBiZ7k8 D5Or6BFOx2UN03FB80aKXlv0E 5 rSB4J8RaJMViwbpvqzxxkPH4S PUqYHJnwI08Qz8vqFglEj0sET GbJXT8QLWjdUGeV9YokS3lQzX j EMLdVLKnO6LgtKZdVMyzF478R LajPzH0XGUgjxAaQ9FzOONaaU rnWaK5x0T2Bi5YVFXeNZ06NLV 5 tBO1XT89NH42W0UuHntdvLPrp +PHRhYmxlIHdpZHRoPScxMD QvDfXuzTucIS6sUl1uRZLfLQL v kJbcrJAgFzIpz6xuHCQuBGotJ P1ezBcnO7KkmZJ3FTTmj2l8Zw 35U14eH7DlwIO+JWVkkLP2gON 0 yE3lJzRsWgZ9UYinH270EyXln UApStoah0dgr9jvkQh1GoS6RI QhdpLkiPioBWL1i0JsWh55J70 s IHdpZHRoPSIxNSUiIHZhbGlnb e7zzD2eYk0+LMFkzIE0dLN3vO 1dAzYkQxM0HRpaT009PsQbsIJ v Syagq3lvg8etqFx6RjUdSNWpy lWtmKvsPUD1y5MpWg01X7QvmH ccg2NnYfm9ho07kRIiv0C9yKI 9 A0LmYZCyyvrmfUXzfKosEO1tY KSypjtzMJLpgY1pGNKuR8y1Hp HsCyA7CHvtH9JlomW7DNZqpNR g AWwuPWX4Q57cu8R1LHIkFWIeJ TN6kHE0bK0emBymbsmukKDaxJ omngTmxYvnESilXWyyR722MMA v iBhrCZPnmB0lKWGvyLCxkMjxL A0mHAVpzednTxJYIz5VSnhpUX 4BQCcCLDp1V2XkKwu8EWWvoFo s EV2pmDHlLCkiZp1opEgqtBtpZ K7gSETxkngeNHZarO9hPOZjpN AehSgvCP7aMIGrfmqrg970FlL x AZL1UOHyzPYqC2FdyP3rRxTpF TOvHHUrI8ItwKTrYAirC200SK xyUpU0ZKGssqPiJ2YbHRRziMs u VsI3r9B4Pj6tPz8gAD0jWMD2D W82JV61mKHgi7D2lWQ7Y3HiIZ SbejwhnuckjKK4UWMgELInuC6 7 dILuMVeoKo0ti4G4q092EKUdG CYvuM82Be8uuSqwEIVoaITYvT 6ciffrs8gmyipgOiGbIXMrMHo 0 QUq9BLUbkFclOzYbFRM9ZoR1K ZO0eEXxeH4fwMerzbddhK6tZj c+EqCaTXNjjdK5T3CwRlk3XFJ z lAzgCU5qvPNtJBubJs8eyMfwu UujDX6kCGAwehxjBPMxqU4jIY ZkdNYjaIifFO5wYYAqiwuot45 0 OwXoIFA2AGNllFCxW8CzrI9pI uJaQQPhVDKwM1RsfVXqUXgfH4 07NDalUdX5XZTcuiWcP1UhCDZ s oVrlIxJ7i4C2Qf3TKOsrZJ67S H69qFIwv0V0kVC5G3CmRNLtom asgsssmCW5JNWuVZNkfU17kGF k NSwiTn6oz4C1q021BQJeQKZfl W80Md1bpShkDIDafMZUlS9kbz hen9tgqttwGfBhMNSmTIt3FZb 0 TIZniHctCmQyAUX4PvN9HLP3u VAonO0wfRcvbkvbqX4dGov+T3 Z3pFU2hXEokQbjkQS+EU25gv1 8 X1IgQkldSyj0UQLeGFC4nKH6b C7uSSRzLNstf3P2iCT4N6Tdmr Myjr6oo5ovOOIlJGodJ82vgQF w b4K8JDDxnVW2NAPpgAqmCaXzt G93Oyc+AVItaXflc7PjHcgfq9 mlw1lyvLj1CwLxWAXbugYunVu u WBC9w2HrUl46Z05gXPtiRDJiH YUdDHPqHEZzuPrpnr5ctE6cYz 8+OCMviMM9yVQ6hX4rMtAxRiT 2 RRkgB701QxMwnCFpVlxni7tdr 5amrAk1LyTuHJDqvcZgcDqrWY J9w1EeLl88B8RzsZthb3WsPdk 0 bm82jJOvt0C1vIX9G2DaZTHmt qwkzRVzzGviOS8xZRFrleekKE TtaR3iMGYrD5e0PvXwWeA5EMp u Z8DqcqH0CWUbnAJeGTIloPKSz Z7nvoeei9hurhuvNjVqMYHaNS c1WTw8FQTzhSthJbBkALY6ZpA 2 ABP2zFWoeL3rbEwigauwhL6oM yc+KFi9f0yxbSBrND7gfXQ7OX 79FV41hPMzr6X1hXV9C3NlKZU p zysvhfnfzNS0FJZsFZKcfS27H v8koQpdNw1nYNRmMSS2JEYxvF UhP4BuqT7dWrVxGOPlJDWcO3M l iHFyYIfxO463PNarBnZ4JCQmb lAjE5YmQKWdlGqcLwS9s9Y1Tj 7FGE70SF49DX82rPGfp9R6rXM 9 B0JnQXUeairzsowazFT2UTOkT EAowF23Vi7urKceKq6dYHLbCA I1JFVbqFDoT3EdbB2rKqQnAAJ w AGTnD8OfxNFrNUkhJ901XSmzX cI5NWYyqrTuF0ZnEUHnsUodUq O3m2B0Lz7TNf17JY36NT97tYH g l6A9bIE0S6BcBOOlqcieerctb WJ5GNInVVAcyM98Eg8erXrcSs 1bWZHtFHO8WOQnbGLrL1SvfY4 y HfEmADDuAEYhQ1FweFKtXBwnV 834ANboQrQ3DJOzdaErZ5XmNN AxtCyaDoC6x3K1Oq4NHRcxgmw 8 K4QhQwiyrWE+AP15GBOnQU61k QSqbFJhn5scrTf1IhHlDBAnIW Z8jAmnICmil0RvUMDfV59bnGU w c2U6 (more content not included)... [facility] Coding Summary. CD:[id number]:[id number] Gh0bW w+PGhlYWQ+EG7QCSGsS97pnEY hwW2FA1tVPU0OQEHNTUZRTZ9G CG3gjOE3ZVbqS0MivpOx UaokeDRhCY59QHv5UZU1cZriQ CwvwY6pfRBxZ4p9QbTcTJ01qS 26OKfxYGTnEeN4NbLxuffgaUT y N0xfHvMqbUYaRej+PHRhYmxlI HdpZHRoPScxMDAlJyBzdHlsZT 1bBi2nTPFoIUQebNuntCEjFjT j c8lbFKBpIPrlAU4cjZmvC7Bke QI1YOPwy6t4Qt99pFJ+PHRkIH I5qKjwFLpxy730PfJdh7bzITE 3 qJMePFgqLVR6A05lk7P9KLGrB EScOQZ8kHW2pP8rlGdcmxxnD6 YbqJMpYeI7NHI6dUAoxU6lkWv n oalwaM8eEsw+C05QTO1VYVAER W5GZyu8T8YaRgupfRQ+PC90YW UbQY73dLVadGYru2tkdQo0VhJ w UNRyDXF5gFibJBhhi9XrBGHmC 40aiSGqr1B8PZNaeZxtoCAoIj YppJY6uI6bBWpeiakri0xiwsv n Uehyv1nbkg69lB43W87mIKjgD DUsFEJ3YHIgSVObgPbndi8vhZ 9wIi8+FLhhz4fca6mogBy9LyJ w WOAhytEzbDkjVXA5p6CrVb92G 0ZhoVefa3PuBuy8iu09eGIwf9 F3yII3SWzpHTNubW1dLBczBpE 6 OMLrZrNmwD66vMSmXDhfUv5gl UhfrNpeAJ4wMEVzscpxIMWebV 4wKGFrfFNhzBytLD6qRDAsobj m c142ZdVqUQZ1XMGjtEPbN2Bcy P2zIrLcFZQpMJDdT6JxsPPbBA tpH226HGdrFwU0BCMuesUwL2Q s BEKtoXnkMiZ5o2U4Fu7Mq2Bzs yajXON1LPifWTXvMvKdQsZvXv H8H9MuEbh0XGByqGhkOU8sE4O h XNNhczhwaxnljRK6KDZpMHAjw F32dGByERvbXr7jt5M8q023GC BpDBJojT12Qe1pdZksAPXagOD U aX4xxjmbv7kpicfhEdSvQUIwV Mz6OKz6JPUzlUdzAbWbHNQ4St X2VDH7xFLnrI4niSjgkvhfbO1 w Oyc+Z32buP5kOHI0NSG4iytiS IKdsdCiRQ81ZF95N5FjOdgluW FibGU+KFVwioXrwOarBL4cWzL j p5yqo4JaFGfmB1NrCSLkCSddD tm6CTBmPLR5eCB3cT3qTHQfNM iez1J9gXY8G5LthmGvkt3si2w s NPMwWMrzQ85owLJxj3T7NDUnk TS4NCSweRijNwUkhI43Nsv+PG FgnLssf9DyTttqc4xfs3weePz 9 CkDpPBXvqyGtrSujSYA5x1NzE p82S20uDQasLMHaFDPdTVCdFU NsuCngat3tcT1sRs3+PGNvbCB 3 kID7qQ3vHMOpIsX7RJujX762S hBpdVMrEipxs0eyk8mfwJd6Qd OjMIUudlJdeXkkFSK7d1SeZu9 8 Q10bSEdfKWLsNJGxQDZtGBNfa Epufs4usO5kLz7+TR2bw8pech 67fB01jQY+PFUhBJG7sQohWIa w PWPplO9iUQjjTiY1JQEuDfLke J19oYUaCAqwWd8xgAkxgDhkEC 8sXCBdfeiyi461ZxWsg9qoUXQ w dMNiJUjaRNI7F07wm6X5MUXcX ATfFKJ6jFW4wL5zlEsfsyqbnR ShdQewmpDwkPfsGDpqBAyzY31 6 IHRvcDsnPlBhdGllbnQgTmFtZ Uy6C4CaKxx4VZMnbVlgLM6xdL PeTRwfPz3alUccfAuhGV1iBKX p nvudn077UwNnv3qtCXYpeDEsA LmvPRA2C37te1X3QCDnMSPvUS K3tNS0jF8hdSxbdolahSOhiUy g lfHepOykTUcoXKoyS056RXUge XvqNkTxuzPoGUXqxZW4YW94CX 07nBKcq0O9dVH2T8IySPCgxzy t nipmsBN4HOZkKIQqnE97Xq3bl LccOo8jZCRjQZZ8RGEegLFpA3 IgtT8wLlSnIDHdJGIhG6PjwHP t FRoeY921ARarRzM4JKNlaiWtL 3FnJCPzqDwzYzI4l7A0Pf1HX2 P8RN25ZK05cJBeg6C5nXD6H2C h XZLdzalhtwlxsMJ8KOTvMZVgz Z76Fs6zzFawEh3yVXIkNAV2ZQ IyfZSwM3MknI9eQnTmRWIbIFI w I8QtqEGgMNsjZ840WDiqSqD0Q NXfjoGcP0IlDTNloTasFeL6m7 O0Bp7QTMi1WR84WO64tZWmf0I 5 bMX3F5RvPMWctamwqrphxTG5F SPxBHKnbQ44Wy7wpDbqVh0tBO TxOSC7YONqkBJoY5QtzZ0nNyX j XKRiNHPwQ3AkbZUjKVyvB487S GyrUeJ2UPIeesIpG1TaBFIjzZ qgQzN8z7R5Ja1BYUDhQR60UXL 5 yAG2JP83XY60L7WzWpcujIXzl +PHRhYmxlIHdpZHRoPScxMD NfKyGulMlvHN3wGn7qLYVaPUM v sQvhoOAzDqDtn9qgJSPgBBmgX V2lsBokS0YenNC4XCXwj7r2Qf 85R57vI0DipFE+JUJxcDD1bJM 0 gZ7uQkZoSoL0JMjeB030CtXly EMoKdspe0jnq0jpzBa8BuK6AV OuwmGjxQpuUOE3m2JvAz60Y29 s IHdpZHRoPSIxNSUiIHZhbGlnb s3prI3rDa4+VSOzxXB7nSX6cO 9tBeBrDhJ1EUmnI443AcDydHR v Mkwhm9ryq8wouJp8XjTaIYJoc xSjzEzoGIJ1y6NuAb94K0NoyV nbp6RjRke2sb13oYLhz0L7gNR 9 Q4WzWAZjiubnzIWvzHffNY5oS TPfsvmeTOKmvX0rCYKzM2x2Gr EmWoW4KQsdM9OmiwU6CEElwZD g JEnrYWD7P56kz1O1JAAvPFKfH UM5aYP6eK9xsXnwokyeaLZyxF tmonYewCpoSIaaCJonS948EFA v gOmiRSBgnY7nJGZllWXsfJyvX F8cSGHrpsdmDlILYt4RAwouIG 7MDXiPVEk2M5QrCno9LUJfzFl s TX2mzDDyIPrrZk3poLktmLqoW K7jEAIygecwIBBzzH2rGMGerH XtmQfrFN8mTDEnebrfw279GlZ x MRD0XXIbfEFoM2BhkX7zPhVeL QIcXBNyF9BktDJaWXkgU537GT nvGqM9RYPlfsYtK7VtNQMenIm u HlS5t2J7Jf1fAo6jCI2rHIU6X L32OB83jYNkq4M5qOL3K8CaJA HiqfcqvbqqbZV1YVRjOHHyiB6 7 fFZwPNxeCn4an2T2h573BYPzV UExxA82Uj0zhCdbLYVhuARKmH 6ierwft3xwymglEdRgKKToBKw 0 BKb3MLWugKnaJcThQKS5PqW9L MN4mOFxrY4mdHoswgvcuH9yCe c+YqUcOCNklgM3Y3BdFxr3JYV z eJyzAM3kqDQvWGtxKs8rpFmnq ZkfUU3sLWKsxzmiZSEaeT7wFI PghKLztFssUJ7tPAEboqqvv26 0 CwMyPWY0BOXraMHtN5HuvC4uQ sEoFNPpEAVmF3OxgEIvLIdrL4 49JCroSmM7EHTdtlSpE8UpDRC s dHfgCtB6z7H8Oq5MSMhyCS10T F64uIBfn0O3nTR7L5CtQPAnnl qfzjvxgKN3SEWmFLXtyH63vDN k VQnwUo3dt0L1q423SLTsRUHfd O71Dd9zjCtlCSCepHHIhG3otq gwh1jyluqrBuRxYSJvUOx4GJs 0 FBIvuAlqGlVkRDO7PsS3ODU9i SQozD5lfFcsfqiguP8yVbe+T3 O9iQI7hRFlfByulHE+UU46ql1 8 T2QoIggkAaa6NLZnHON9uSS2d I3pVEAdBUhrj7U7cQL7W3Neii Hsiw6ft7jnWPEkPQfzR01iyGO w u8P2KTHubYR7PKIttBrvVpKwv G93Oyc+HDUglZhrf4WfSymtr1 niu2csnYr4YsZhSVLihlXdmGz u BLW2a3XbXv28N92yNDsjNPAxO IEaOJGaQYMrxMotcf6jqF2uVh 8+VDXrbTP7nML8vC9hQfYbOeG 2 MMidI998HkHcoLBpYzqik7cpk 0qcoOu4PaCuSSBkezElfQzwRK Y4h9ImCs60P6BzxMmkc7AzNri 0 eg68wAPwa8F2gPC7X8QgIGZil gptnQFalWopFJ6xOLNpdcmuUK HofD9jSDPbF2a3HwVxFgL6HHm u P8BttjF1LOJczDAjZTHyxRKRl B4vpimdq1bssjgmLwNhXWXrFY z9WKo3MQIyySydMlDeQAR4UmG 2 LRK5hMWvyY6bdEubducisB7hH yc+GWd2a5ezmNXaKR6bcYA6MX 88IS87mKVgv4Y3iGC6F7LrQZP p abrmrailtGG1VAWrXXLsmO53Z j5qqUjkXq8tMQHmFFY2TOWdzZ QlL6RlfA9dJuMvHSJuRAGyG9K l tWGxMGcjN738ATpgTvQ3YSPct qQuR9QtYFNtyWktGiQ5s2X9Ke 3SYP13GC59PK65cMSwh6H3nKO 9 M4WqNTFvrldfdostfFD8BOEpP BDqrO80Aw7ueRngSl8rVNUuCX K6VQBgmAViI7QbgF9uOqDhMVZ w OGVpS4HlbELpRWkfJ359IDrcB iP7XZPowsTiD0HjTRYmrHhoRg P7i7F5Qb4MAs11OC22OX21rVY g x2H6bWL7L3TfBIZztqsuyxgyl SY4ICPbWTJtpL04Me2vbYqzSu 4hFBEcHNX1EFOigGIrL1ZsvP0 y FfAgVJHjPSMsO9CjlEGeWOgbC 686OAsfRwU0LJXpkwZnI1XlHT UvsRqsFiZ5a1R7Tc6BPQamfpi 8 R7GoRyagpMN+ZL36MDUtWO32q TUerEWdy5snqBh1SqBkWRPoKP G5tOmbGFawl3AlKFMoY00agUP w c2U6 (more content not included)... [facility] Coding Summary. CD:[id number]:[id number] Gh0bW w+PGhlYWQ+JF2HHVHnN14xeDC yzS1IV2dVAS2QWRXHSFURST9H WE7jmCJ9PAvtT3JgrtSa SbipjBXfVZ31YWq8HUR4uVojF CscmQ2ccNDfG4s3KxHqRV85nW 89VOwbPDXaLbL4LhQvmnozxZT y Z2htQtAevNNjUhn+PHRhYmxlI HdpZHRoPScxMDAlJyBzdHlsZT 3qDx0vIHTrEASkyVgtlHPwGuL j v9rlWJOmQKzpDJ5tkKioA9Mbr CJ9URGls8u2Or24jRT+PHRkIH K4zNnnVKzoa187FtJhx5iaCWV 3 uYVeQZqpAFI5U98fi7K2FTTgB VUwTJH7aWR8qN9ojYvehocbJ9 ZahXHwFiR7EKX2lGFvwW8fzIu n xtcbtQ1oNoq+R86GIU7VDIDJQ P2AJbs4W0ZnPeefdTR+PC90YW GnYF08rIIzaSOju8erqBh6GhV w SBGpYER9gPrjWFfzh3CbWDPoJ 52liRFws9H1VLGrxKrneMQmTp QmiWW8eL5kOCuwbrlxn4rdmez n Gyyhc8rcda81tI66Y14mGTcmD DBaMOB8XGOkQHIvxIavsj3pxT 9wIi8+CAwby7enb2nzdJz5VqE w KFBztaEtgYdxZEC8s7NwSw42B 8JubZell5AoJbh6yi04oKRmq6 Z1hSY2XOkrUHQzrX4pMNqvYsZ 6 SIJnNqLpeY92hJSyXSvgWm3dy BxoaVqlLV6wQYZecbrxMPSmqE 6jWLViwTPvtIzzGX6vRZVyfqc m r215ZjDdOOG3GTButLWjD2Uqs V3kUhLuIDTgMXHsM4QlwTUaSR fqH761JBkxGcZ2TUVawdSuS3G s RTWvvTnlVjE1i9S7Ss9Sa3Ijj gcvGHJ1RXsrHJMvCfUlYjUzAh V1Q7AoDis0FZZldZfiAV1hW0B h RMWhmslojurdlDC5CYUxVAKnb Z20jLBfPBeyUs8ga2L8s088KA OwUJIbeZ30Mo8beWliRBUprLW U kJ9abjkma9eltxskObVoYNTtO Ew7LVs1ANGydRmgNzDoCCM9Mh O0UGT6oGCybF2xyUelglbqdK6 w Oyc+P74iiP3eJAK9KRS8yorbK HSlgzJcQJ25JC03S8ThVnsyhG FibGU+UTMeuwKtbVjdHW8mOkG j s8gjz7FtVXvgO1AgNQPjQFnxW um4WCWaRTZ3gKY9oR9fIKAdWB ffz9R1gBU9W6XlprJoft5ke2i s TCXtDEfjI24tkYSdf9Y2NHDpz TX0IAWzsVjkUbMedW90Xpf+PG KwqHpbe8XxKueuk4xfw1iusXm 9 AmQtGSWbjcCbfOttMET8m7VgO m27T21nCGyuOLMpLVNzCAJtHL GplQloeg7wsH9uOk3+PGNvbCB 3 tHW5lU3kYSYeBdX5TUxbP088A tIajXGmErrgb9wbk4tazPv2Nm MyKFDjfuPlfKxnHIL1o4LuNs9 8 N16pVTmkVFPvEWCpTEXbXVSdo Omxel2efU8bDg6+EN6mi9kcna 33eP64hDP+SAIqWCJ4kZcvBMl w WZWohW8qNYlxIcV4MWWuAhSox C20qJYoYFctCf6okKtvxVskLU 8hXWDjfsbgq606NoMae6cqJUL w kHNxWBwbUZZ5N68mk8E2XSEuB CQrNKK0gLF9kE3cbHuqontioR PhpWdfgsSgaDupRWwmJEdoI37 6 IHRvcDsnPlBhdGllbnQgTmFtZ Fp2V8HtSvd5DTOpuTozGS3gyP YfRRenJx4mjShxoEztNM2hFOF p mmhnq876NiDoq5arRPKukVCtO HvgMIN6S24np8O8NDNcMFCdXG L3iUW2dP6wiBnadhzuiICcyGy g uvGgkMfoCSipYEypX550NRBuw RulAyIeccUhNXYgcWA8AY70UL 97eXKcs5R1uPX8S4HdKNQskjp t muurcML1LPDaIQXmkU78Eh2jp GczAd8hMBKgKSL8YIGfdTUoU9 UxlG8nVzSzFWBpXSNmS4IpeWG t FLztD923YDjmMiF7EAQxcpTmA 2BbXRPqbWeyVaB1o5F4Wp8CT6 V7PF69VS81dOSac3K9vEL2A2L h YBZqikernuvusVS2NFZaVADwm F20Ot0jvGbcHb0gXEPcFKH9LK JrhZGpB4GlcA2mUeSaJFMnMQE w M3GtwXUuARcyX660FUsaYdA5K FPetuTzH6KnQWShvRmtFrQ9q8 L0Lq5RDZh6OH78WK74vNNmx8E 5 eJP4W0AnETNmwrvkvjxqmEZ8Q PCzICWrxN79Jt1vuVymNa6lCY VjBQM0DPCllEZdF8SsyA3zFpI j HDCzZEVaK0FrfKWvUOkjL554C EupZqQ7YAXbwrVlZ4WjNMLyzE zbKqL0c5W9Qi3TRRSsSW33SRV 5 dDY5HN58EB53A3YpHthtcGNok +PHRhYmxlIHdpZHRoPScxMD MuUoUdzPmyMU2qYu5hPRTqHCX v fVwonVRmIpXna3fxWWFoGCfeY E3opHavJ2NoxMN0LGQlu7p2On 85C76dR5KxuBQ+LTTodIE4qDA 0 kU5eFyGwObS1JVirO918KqAaq YJuTrckg4rhu7kjvFb4TjE2WW HnvlZioHhyMCZ0u2TnUr91R37 s IHdpZHRoPSIxNSUiIHZhbGlnb j8azG2iPb1+JTXzhMY1iDK3xG 8pNmNpFqW1UIeeT445QoWjyNZ v Vtold9wdv0ownCt7DvEjFSTqy nEdmFftWBZ3q2TrSx96Q5AriG tno4NuXwp9lf01dLZtp9Z8bMB 9 I3AsATMmxotgjXCmmUwbVU0jF ISxxyqdMAXwmJ2aBVUsI6g7Gf SsPhB7VCbsU6HalrU6VAVkbOV g AJulEED1M44vg2O1ZTAnQEHnV UW8aWE0tW1isZapbxguoECrbO jqmjEpwUlqSYsoTCpnT022EYO v oRziDOXxxW2cYXNlkYFhiBudH C3vSCNgukmaPuKCRx3TFrflNV 8MLUjNQAf3U2AwEng2UKVawCc s HD0jaNLcWFhvNf4qgEbrhJxaW I9kSKMteeqmKHOgoZ6lPMDznH QiyUotED6fDKTyweqfg126OuF x NDH9RHKunEAnT8EdhW8cWqLnG FFjTNWrD5EbnGJoMQxlJ722WU xnZaV0KDVccqGvA8IbAZFatBy u WfH5p9S7Xb3sCs8iQN5yXFO1U X90JI57jSWfk5G8uOR6D9NtNI FkrglxrcgwaTM9CVXgYVRafS6 7 mRUbSXvsDt5vv4Y3m778YSFrQ KGjiR91Bp5agHgwIXMnlDUKeB 3bbauip8suglhvHqQxHLNdEDf 0 OSq7VTCuxPocZnHcFIL7NiK1D TQ5vTDioK5wqPsurhusnV9cLi c+ReXhOKXsanC3I3SdOnm9KNP z aPntUN5lyWAjNUzsTd4srBztp IddYV1uOGXgofsuELLfuA4kWK FuoMYfkNemUS2kIDDfmqfbq85 0 HlLlEXP6CMXamPIdZ8SdpS6fG jLsEAUiTBEfG4AdvQTyYJygY2 67MMgjMpC7DYIbhvTtL0WfVBQ s jDbgYoI7t9V2Pb1HQFlaPZ35V S83pOXge3F5gWP8C9DdYNInre pqbyixjVX4KJCpXYExwN46lJM k YEsoWc5rg0J4y525YWOpEJJlk I25Mf3wlBquWIHrpWTOfX1hwr ahw3gcqnolIsNvQISlKKb2BOp 0 RJRokSgsXuAzBIJ9AkT2BKU7h SCicW3jhGqwabwyvI7bHyj+T3 Y5iGS2dKQohNuilDO+WG50pn2 8 O2YbDdajZbp0PIVwQOS9iGM7h T3qWAKhVOcpu4L2aOU8D4Qxed Kdta1da8hcZXZgKZjyY66ceCU w r3I1ULJnoXP3VVKodIqqVuOwz G93Oyc+UFNnuFpeq7PsOnpyb7 mwo6otxRq8IeGzLPZpteBccKz u GLC6c8XuRl75M51pQFfhEXPnH SQqOUSgMNWqbEhbqa9fzM7fPy 8+YHMweDP5mMV0eV5pVlTkDeG 2 GProO432UoGgzYRoTtwkp0ugs 7pqiOy2CvTqJEXdbsCjzXgcNK E4i4KfHi27P0HfeMufi3NtXga 0 gy96uOMjz4K0uDL7J7OlHQXck wlqxFFjtMbnLO7iIDGnctcoDZ TswK3aTEOmA5t3XsZvDzD5QUf u H5AysvR5VFPznRVoZOJsuCKPh K0zqffui4hucspqLhOxBDPyUL a3ESk8UFNtgIyhAsFwOEE4KlF 2 CPL7dVResE6omTgupytkpH3rT yc+REn1b5rlmOKhUB7ojDD6SV 96XX29vMGem9J6uFQ0B5LkITV p leugqhinkPN9WJPpOICyxV67R f4tlThwCw3fOBFaMYG8REVdlJ WuZ7KfbO6eFmWtLSNyOGJnZ2Q l oDHgLOsfY071ZWlvNiJ3JCEbp xHeN0NbFZQchUtuCfL9l9L6Jf 4QKQ29OS99ON19kYHjp1R2cPI 9 S2PtKHViyaoxobbgaLY4UCNnW URooU26Ny7roWrfMj1fMLZqCC G1TGOxjSXdA7FbqN9kLuTrOKD w SCJyV6FteEApLHoiE804HTqaH nS7OBUmhfSvW7UtVVLusQhyUj R6o3Z0Ey6KSj00GJ87FD20rYY g n9E6zZX3I0LpLFUwsjwwmsexf SW9QTHcLECplI87Cg5oiGjkBt 6bDMFkSDX3QKFihVIhK5DwwO2 y UlZoGIYiNSFmG7AgcCKxMHutR 029JThnXkM8PJIqgwQkN8ZeVQ LinKrhEzP7g9T7Ro8XDOxicme 8 V0IpXkffgVH+LT83WCSeNA45o QDbqRCyi8bipCy2RdXhIVGgXD S8jVpaQItsb7SbVVUjR60aoAA w c2U6 (more content not included)... Normal [facility] Physician Orderon 12-30-2022 Physician Order [id number]#1.00CD:1 27 [facility] Procedure - Woundon 12-30-19 Procedure - Wound [id number]#1.00CD:1 27 [facility] Consent for Treatmenton 12-02 Consent for Treatment [id number]#1.00CD:12 7 [facility] Multi-Wound Charton 12-27-19 23 Multi-Wound Chart [id number]#1.00CD:1 27 [facility] Nursing Note - Woundon 12-27 Nursing Note - Wound [id number]#2.00CD:1 27 [facility] Consent for Treatmenton 12-02 Consent for Treatment [id number]#1.00CD:12 7 [facility] Multi-Wound Charton 12-24-19 Multi-Wound Chart [id number]#1.00CD:1 27 [facility] Nursing Note - Woundon 12-24 Nursing Note - Wound [id number]#1.00CD:1 27 [facility] Physician Orderon 12-24-2022 Physician Order [id number]#1.00CD:1 27 [facility] Procedure - Woundon 12-24-19 Procedure - Wound [id number]#1.00CD:1 27 [facility] Coding Summary.on 12-20-2022 Coding Summary. CD:[id number]:[id number] Gh0bW w+PGhlYWQ+AZ0XEATaN94klFB jiY6GY5kINB4VMBLQNLXGEG7T AF8wgSY2BEapV4NdngUi YzaanNTiTG18QSx7SNA1dFmzN BxgsV4qhSUjF0y5BaShZH34dT 72NXabOPHqDuN2GzIofltmqDH y G3zwZhUgfVFoJst+PHRhYmxlI HdpZHRoPScxMDAlJyBzdHlsZT 3hFz2fLLSgGYGjmSlveUTtQmG j r6euJDCcYXyfIB8bfMcuQ3Gkr SP1YPLqv4e2Co84aTH+PHRkIH X7nEgdKOjai754KnAky1guOJG 3 pDEyMKzhTLH7Y67sc4N0IBZuF FKyAAM5kKS1tB1jnMbqnxifC8 RutIVtGyL3WIV9cXJwaT3qnAr n sedsrL8zUto+G60BNP7NADAQX R8TKdp4L4YkXtedsKL+PC90YW KiVP25qXYqcZJap0yyzOe1EdB w RLMoWJT9sSmeVWxrw9DfCQRrA 75agYFmg6E4VWSxeZbeyNUeXi FunYB3rV4uFRyldknta6lykpz n Afvmj8gycn50mF93P73uBHinC XWzNMW0YTWbJIAokYnozm2yvF 9wIi8+FLhoo2mfd5hdxJj9FgT w YDOlalYuoQglDOC0s4MeQf42V 7NbmVccc7XcGgg7cp38sFQde8 P4eVD6QTzsYUSdrR4rMEqvYpP 6 DAWsWoYjoJ58tEVyBVuzVy9cm WeohUhmRS9mSXIgrpwuPETasJ 3aRQDfeAOrnFgtTB2aQTOyrug m m388VoOcNGJ9ERUksGNwA3Ncl X1pCmVjXBOrRNHnS6UwsKEzPS ntD081FKbgPqO1UJQzwaScV5J s YUIpoVzpVeM9m6C5Gy6Ig3Awn zdcPGE3CApmLXSeQkMuIgSeWd O4R4RlZrm7BVYmaIwdEY6lZ1S h PSRdvhcmwiuzeQL7NIXoFZDhs E55iFKlSGitAb3wc4C8m469AO QgGWGfzN10Qr8krGgfDUEowMN U oP8xmzhep0wqrrigUxXnHTTcO Mt0IWm0DFXhmOtiRzVlSSB0Co F3ORS6aWMeeQ3oaSzyvmgdlU2 w Oyc+B35irU2zGXK3KZN0thkaG BZdyeLmYS39TS22R5ZbAnlrcC FibGU+TBZfhbIdlJetCD9sVfR j r6ruk8IuEFupB0CtHEKiOIcrY ou4HLExWYG6xZS0nC6aJCJiVE tjj0L5lMR0H4SkwoMnob6jk7s s KVUzNDbeI75nwZGow7W2MQQjn GU9TKJqzBvtXmJflG48Cwh+PG RpzIdbd3AdBqhoj6xhz7dprQq 9 OeSxAWNeowNezMpkZNF2k2TgP b61P65nAKhfNPLmHQKqKQKbCX TcnUacgd9ofU0hPe7+PGNvbCB 3 yMN0wL8yBIKwEsH1TEdaE194B uJchXBkGusic0qeh9fqwTf3Uj IbRGUoscBniYqwCWC5r3LkKf9 8 A42xVCqfAQFdLVGmNEIkKYNje Usxso9ddT4nNu5+WC6uc4niys 04pD00rXE+FAPaOKL3gOrbJNa w HCMryR1jCQbaVtU6ESAjXuYke V22sEYqDKvoNz1wwHbeyZcxRV 4aCFSzvslda012CjMum2tuWGW w rFIrZYofHAD7W71ui3O9XZRqX WXfUSH8aNR0jL3nlHbsawbjvV YzuRjlxoWyhOxdMAbdHYvmZ89 6 IHRvcDsnPlBhdGllbnQgTmFtZ Jn0K0CtSac2DSRqbRziYF1cgY IoPKprUk0ciDutoVvxGD8vAYK p vijbw057ZiStq7piXOUdiFLxU QzmLRI3E12na7A0VCPxNJDjIV K2sOW6cZ2diZfvwlvwqRGlnHc g cnGyzBsxXXcgPCahZ401PIAyz TieJnCxpjYqSJYftCE0HJ64KU 72pFUcu7W6bGO7U4XdAQKklrp t hgbipQB7HZQhPXOxrK51Fx3qh QqxIt2cVBHiTRP1HGHafMRyU4 KzpX8dInKtJSBcAHMuI9WwbHU t VZcbW694MSjvDqL1LKWfhwUhS 1DcBPFlmKbzNkY9v1H0Vn8IW8 X9JY95PC24kSWtu8C0tZS6S7X h PUJaqufxdvcyeMZ6PGFsGZZpn I34An4noZbtZn6yTWGiRFT2MV SyxHTfA3PrpE2mNxLqGBEkMZZ w A0JxyTWkGNgtQ279QAnqUlA5H KPpcuZxU6RdVUFrlHndZqE8j4 D2Li4VWOj6CV57FX38gNQqn6X 5 lAI1H6OoIIWdxiscvazyqQK0U VXcZLZxzG45Ac3uvXldPw9iZZ FdUFA7KJOujHYqE9KhfZ4aOhY j GLGrFFAxX5UmpILmOOnxZ729Y ZwnAvV3UAIvllQzU2HfZRUveF ngKvV8k7K9Lk2RIYGnFG99FSV 5 rFM9GS84TZ49Z5XfFgkncRYqo +PHRhYmxlIHdpZHRoPScxMD FnHbNphXrxLT7mXg2kLTBfEWG v qBgzhJRwXnZwr2nlLERpBYisH I6eyMdsD2KwrVP2XKWut8z5Ot 92L26pH6FcqCW+FKZeuHH2zQC 0 cV7uWnMwImA1BXdrN360VxRbw DBmBfyrb6hfl6woxGw2WfW8GN FaflLzsBrgGHM3v2YjUf36A02 s IHdpZHRoPSIxNSUiIHZhbGlnb z5fuH9pLa6+LOLndWX5kSZ4yT 2jSjXkHlN8TVncN844ThAtzZV v Enhto4zyb7yajEd5VoNaKJWaf uWcnZgbZPS4t7RkCi53F9EnqR fgc1ZjUax5up10aLQny8F0eVQ 9 P7XeNGTtnnxdgVCsmVdbPK7fT GQwufnaADPdmO5bTIBzO1v3Jl VzLtU3QWraC3SmypQ0FUHxzAL g NRmsEHQ8O73uf7O0OIHwWUBxJ TR6vEN4mB7dtDhzhbdnyOUgqX phhePxmXdvHSkwGGnnR036DUF v cOcaXQYtvH9rBSTvrEBqsOcuM D0eIMXlqzarEhGXAt0VPsdcQN 4QFFyEIDt1K8IgAox1TISzeZy s KM3yfIYeZPvxBe2ltEovoWrzJ A3aBQQfdpahETXbiJ9iLXBhwY EuzYtiBG3bCNSxogcpe378QyP x RMI3LTSiyJYiK4PtdE0hTaJlN JTwQJGaG0ApvPTvLPxuA571BF yoZeP6AYAqulMuC9FiYQHofAx u AnB3u6W8Hr8nXg2yWX7jYLI8V G91HJ47lFBxc2Z4xWZ7L0UaOP NywuxdspphdPX7ISTxYRYagO5 7 zXAjJGuzCg7ck2D3y282OJZkR OGtfS72Pb4qaDmjSGSzpEGYhA 9owlpru7bhgycwPlPaHZHqXUi 0 ERv5WGHfoYyvDrWwIRP0ZoP1F OA9jNQvvD0icCbitnisvM7sPq c+HpIzSDIrxxN1Y9NbWic9NCN z zFfjHG5drGQhAGzeWl8wpFpix UevAX8nXRLnfecvCRDhhQ0mSC WqwSBirTntSX0oUOTxmurcz00 0 TzAnWNT1UGNktARoP3KzkH3tJ hYvMPXsWOWjM9PcjJYdNLncG4 39LUqbUfF5YBZkptNpY1KzXPN s jNjnFwK7j7W6Se5BSBvzOK55A X73mYPkn3E1vWU1M6OvMYVvtj jazjdowYO0MWRbYTZjbY83xMA k UNgnEq8yu9K8u143VRAmBOBjj C91Pw6ifSteSVHgwYNVrP8nst aed6nnrrxsSaEdPWEdPRd9FEq 0 QCZxiMscYaJtNQW4EbA0JUC5w WIrnY0zuBnsuryoxE2zJot+T3 I5rBA0vLVkeVommOH+BD00ff7 8 I9EvRsxuOnc9TXGcJYK0bSB7w H6pTGCoUKrrq1W3qOV1F5Vpkb Kmpo0ly6uzLTAkAIqfW21geMQ w c8Y3JNIllVF0LPZorJkqVmVdw G93Oyc+CMWrlGama5WgEuoej2 ych6nphZy8ZzMhZHLsnsLezVg u DXQ4v3HiQb52M43mIUcxAJCyO ZBhSDJnDHSgeDvegh3siB3oLy 8+WJJuhHU4pIR4fJ4mJbXhRyO 2 ZNxrJ681GyGtxKChOiukz3jod 2fsqVc0MjTbCTOwmhJocDmyGF A3s4RkVm75Z8SukEfmm4AeNjz 0 yb08oMEgu2X7bMR5E7CoRUGdq nrrqNTkhGziUQ2hWNFasmioUI LfaM7aUOVgC4s4ByOnLdL4ZTp u D2ImjfK0TFHxwNJrUAJolFIEh H7jwwncx7xkfswzXvDmNQAjBV k1GMa6IESblYefOjDzHVS2GxC 2 AFD1jNEnaZ8qkWobflytsF8bL yc+TLp4m6bziQSdKV8whDA8VK 55NO76zBYgj5D7zWM9L4RfZYO p nscdhzqjcGL3THLuRECobI50Z r2mcThvIn9cNEKmMEA7YVAgoS ZmU7XvgW5zTsJlYIPyUDQzR2W l hOLtCXejI317DGziNhZ6NCLim yMrP6BxRSDghRrmThC9p9Z9Kk 2UKI31QY68JJ08oIMbz2O7kBZ 9 D3QjMEQnplitatejgJK0PNQuH SRvtK47Rm0tuUyoRj1dYQCjPL C4ISOkyYUdV3VuqV8sNcNjTVP w RDTtL3XmtULxNHuiY433CNsxC xG5OMUenhPkD2JiGKQitZfuAs B4q9V8Xl0HDv22KV58NH52pCW g z6O6eHK3D9LsVDHtbjmfnqmws PH8LPVxAIYreE93Sf7ibRicXp 3kBPMeOUY7CVXfbAJjR3IofC0 y TfUmRELhAFMrN6DvjIMdLEwnT 261GHyyWyE3ZQLqvyFkR7TtYI KqbGdyBjI3i4C9Rt2TPNkwzdo 8 W2KpSeultUH+YW04SSSuBH71m XJmuBRbx2cwzDq8IcBgVXAoVN U9wXqxFLyql6WgUOPeQ21yqOV w c2U6 (more content not included)... Normal [facility] Consent for Treatmenton 12-01 Consent for Treatment [id number]#1.00CD:12 7 [facility] Multi-Wound Charton 12-17-19 Multi-Wound Chart [id number]#1.00CD:1 27 [facility] Nursing Assessment - Woundon 12-17-2022 Nursing Assessment - Wound [id number]#1.00CD:1 27 [facility] Nursing Note - Woundon 12-17 Nursing Note - Wound [id number]#1.00CD:1 27 [facility] Physician Orderon 12-17-2022 Physician Order [id number]#1.00CD:1 27 [facility] Procedure - Woundon 12-17-19 Procedure - Wound [id number]#1.00CD:1 27 [facility] Progress Note - Woundon 12-01 Progress Note - Wound [id number]#1.00CD:1 27 [facility] Coding Summary.on 12-12-2022 Coding Summary. CD:[id number]:[id number] Gh0bW w+PGhlYWQ+DE8FAPOdV90xeWB bbP9UM3xUVV1RLGBTUCQGBB1Q JC8waHB7PXjeX8VusjMp BjajtPVfTC31VOr0JNA4hAcrJ MrrkJ8hrCCdA9m5VeYaRM40zE 57AWggGHZsQeK9PzFtekzpyMW y F8bvIpXckTWbQyr+PHRhYmxlI HdpZHRoPScxMDAlJyBzdHlsZT 8rSi9fJZZuMDDifUpzrBNbDsW j k1ewTNLbXZvcVG5yoMqyE9Mam GS8OPFpz6l1Vh98gJV+PHRkIH O2nCkhPEfku214LrKkp0bpBOO 3 iSHhEKlaAMJ3S98jc0C4BWFoY HKkQOK4wOX0nT4ijNhslrziF3 ZzvDGwLqO1SMV0aNIlkA9oyEq n rhbniZ6uPvb+F66RSJ3ZECQWL R9ZHry6B7EfZzuhpGN+PC90YW GuPZ04pDIzsHUwa8krxFe8RaB w BSQeSHN8sOjbWFuzh1BbLTBfU 54urPUth9G2SCXmmXeguQCoPw MbyKV6mU1xCMefnbvwz0jfewf n Jerwx1xaof47uD08Z48kOLllZ HVqMHZ9KNXuZLPmxEkwmh3qtF 9wIi8+XHkvs4gjz3vycPc3BsW w AFZxxrHabZshTWY1d1LyXy20A 5TfcJgjg0CmYxj6cz12sABev3 J3rYI1TVphAGTzoX9vOKsyTiB 6 EXJtLbQlbU61cWVuWMtgLq9pf EgfaQwrFZ5dBXSoowbyZVNbnD 0kFOTpsGCbvCqxJW7xNRZujxe m h057TnAgZPE0NVKmhDAaO9Gpy O8tFaWjOJUyQOFoE8SltBCtWZ peK581ZNbbZnM9FVXwwuRpO7N s GCNuoOxpMcX0g6E9Mj2Ck2Gop lqaMHM6MInwCFNfCdYfCcMzIl M4Z8EeDsu7XHKxzWkwUT2bR7M h RRVcbqduqdeedIE8MJSbKALbs T73nRQlADzmIs1on9M1c209TG JiCJOcbI30Hu3uvJedEFTrnYF U eS2qdbzdu2nmblinHwBzONBhP Rt0MOx9ARKjnRoiTiRcVPL8Ke N1SLI6sPMvyB3sbIiwnfltlX0 w Oyc+R68sqV8aKTW5OMD7fqpuG YNslyYvQE57UP50H8HzIxdgzS FibGU+PCLcliChiQgsYQ5yOtN j i1kah7NdPSkvK3YpFBZjILpbA mt4IVTlVNU1tKH0xY5oIPIrJD nae5A6aVQ1Q4CvfwFjpq7wp1r s QGReFQcsG88csLVgg0C4IMGft VY8CVXsmOjgYfTtbQ42Mos+PG WczIhbb9QbQkctf2tef3evuYy 9 YhKoZLHjttQelDbwOHS4e1MqK v27F52qTXddCWSvJUJpIXNyBR ApoCdnyb0drM7xPp8+PGNvbCB 3 mAO4sW0aINWuAqQ5KUqfN241H bTxaTGuHnylm3pze1nhyDq5Af MtPNOczfYozOxrENH2o1KkUw9 8 T72aZCukLXLpJMHoHJTzUPUqx Mjihh3yaC6cLu5+WO5qh2aewr 57kX66mCD+BQAqXFD9aSwmUHa w XLNbcS0pFJuzPqO4WUAyNlDzh S19fUAtOHnkEp6cnCcgrCzjZP 6mYRSvfftiu006RaQla9lzUKL w zVHiWVvbGNC8B16iz9O1GUPpX RNcAQY2dPZ2jJ2gyEqwshlsjB OrhKalufOooXagWAzmBXlfI04 6 IHRvcDsnPlBhdGllbnQgTmFtZ Ud6O9JhYzy3UERzmGwjKO9juW PyKZstUw3heFncqAiaCE7qXNS p qfulw512DeOmt1arXHNutSYhL HwqQJQ0D54sq7S6OLEyWYJzWH O4eVT9hO0oiBhaagkdtKZqvAf g ttEjdBxtUXucHJnsD813DBXru FrfPgCdzvLsTDYwcXV9QV83IY 21uIPpw1C0rQX7Z3HwBSSjclv t vvftqRA6XMHxRRMwdG92Um9jk CclTa3jPWGiEIL9KMNytMZhB1 YfyN2wFhAcZWQaROQzR9MibFN t PKtpF575NDgxTpJ1OHHzzrCeG 1SgMEMcsRnwUwT9n8P6Tb5MJ7 F6XF74RL54mYYfz5Q8iJE9T1U h HYPgttrfkxtztQU7FWQjEGOhs X52Up9acZckJx8jIJEwZMM8ML HgsDHoU0ZhuY4nCrXiGJGiHLW w T2HawODkHAeeU923LVelFyX4F POqgzHoX5ViJIRytHvlGjW1s8 R0Vy1FELy8ER46LT98mJNoc8L 5 dNZ0M5DoNYHasapizoihtIG7Q BTzRUKxpD06Xe6avTpxMo9bKE BfODE0MUPwbTTaX5WnmT7gRaU j JJUsPEYuT3YxmZDkARzdO456Z QoyIaL8MLEohdMlA7QxDQYxxN adYiW4f1O6Ea6SPCHaPT73DMR 5 iHP7CX06QX50R7OwNfvrcJCnc +PHRhYmxlIHdpZHRoPScxMD YbFaPpnUzoMY6rFn0eSRUzCIL v xKplvCWdUaXus4zqYHQxQUmdI Y4csRgaK2TkoXC6MAKjz8e1Cy 12Y00yU5EjiUX+OBQjqHI2bDQ 0 mB6mDoSfVoM4YLjcX354KvEbm FWfZpzsz1tul2dooDg1IpB6BZ CwwpCubPtiOPQ9n9WaFu29N39 s IHdpZHRoPSIxNSUiIHZhbGlnb q8jwS2zRp4+QEIjuUH2gPA2xS 1fAfFjLiQ1GZgtQ696JuBxeDO v Lgslu8tok6lngKa3TaXnIANrz dHilJjqXFG5m5WlUt66I8PtgH bev9KsPzn3yt42wEWrj6F2jSX 9 E5WwOOZdtardlUOvvWswMH5uG NJdjkbfTKIquG1lCIEvD7m0Zp UcXrI5WBqoB7WgkhS4VMUuyBJ g VQakQLJ1M69ee9N7KGZrMNUjP ML1uHE5eX8waAnqbjqjvRMbvO xkcgSawCdnJKeiXCrnJ614DPQ v kUpnDZFzrT0mMAYzoPQxdPukX R4xQGUpjmzjGkXGMn1PTljlAQ 4ITOxNFKm2Y7HrWsy1MJWfgAf s EQ8hdKWhLPdmQv2rpDkweFfcJ X3uPQJfobrvXXYuvX1cYGTblM QilKfkYS9aSKQsjwdac904OaR x IDA5OIQduJAhH5JyuO3wSnZdD LLcWASsC2XdbRDoPNpuM865HJ uvTiQ9ZOXurxUvJ2MxGGPdgGz u InV9o4W3Mz1aKp8xTN5lWAP6R K93NT87pIPzd4T3bQV4S4ClLG EcsewflurdbXS6VZObMZTchG5 7 hKVpHAihAc5iw7N8w776HHNzY SDmpC87Gn6wtUreDZOpkRBUcN 1jqsgph3vgoejgHzXlOJOgEZr 0 QRw3LKOszBfvQhXnIJA5XvM7O HX1qDYheM2vqHcrgeigzB7pSp c+NjBpDQBpmxR8H7YcMzi3RXX z wZwwLE9mjCEzDNdsRz4gmZzhl NzuXR7kZHLvxroxZMCthE3iBN NjkKEbuSxuFZ4tZBOrkjeay40 0 AwUhTQQ1GJDlrLCvZ1DxvR2xI uEvGPFiPZVtA8KybPNaHNmqE6 73HTklHrO1NYOvaiPqZ6OaUOQ s xEedPyV2v2B2Th5ZHGafCL54M K32xVKrj9A5iQB1L5OeNDLxgd hdgejsfOZ2CKQxYGWadK01yMS k OHlrPg7mg6Q1s469VDUvSLSvt W00Oi7knPijRXNbqZKQnG0zbr uod4sdvmryCqLzGRJwWWt3LCg 0 VAMnhVshRuMhNZX9OeZ3OCV9w LOtjF8zqSonitsdcF5hZeu+T3 E4qCU3aSGhnPkjnFI+OM36ng1 8 B0AnNneyAux8ILQcLLM0jHG7u B4kZXTrFBuwx0A8zVF3R8Ojhb Ssgf5nc6faRDGiFDjnC27rxZY w s9B6TZGdkXZ4TJXrbDqrQoFbe G93Oyc+ZGWhqOdyp3TbJnxjx7 ojt3vbsWb5AxJpJOMlsuMltEy u RKM8l0AwLj36Q37uSVehIGUbA FTtRBDhXWBmfFmbyr8glV2wOx 8+QOYsmVF8mXS9lR2oGbWxBsE 2 HLimZ811YqCxcILbGawqk3cgp 5pldUq5ErJvSQWvbwTjhFlyCU H4k5LcCl93J2KehQmvc3PcSmo 0 jm17lDCbi6C3cLF7Y7PcOPFxa mrhiYJwpEqaMZ8uCUBnhagyJG MxyW6kTOMwZ6x4HpHlVpI9ABk u S3RueaP3QIIdoCFwAFDwnXPZw Y3lmmnxx7yjahacVgRjLBDbSK d9ATj2JRNzmQzqEzXjHZJ6UnL 2 JDS4bWRqvG1gfQazyiwnzO9nR yc+OVj8p9ymxBWwBT3ubDZ0AK 12SY71kAYfz0X6tRA6H5QiWNE p yydoxldncJU0OODnPLTjkM61K l4wnNazNo6uQRHmYDS6XXJqdM TgG8MclJ8kZnWeRBAoVTOqB9O l vGLxAZlmW248CTjwNgH1NCToa qBgB5ZaPVCthVcpTaN2h4V4Wc 3QWK72BB14LK89oAPat4T8jVM 9 O1EyCLLjeyrybkwsiRK1JNZdF JVmkU99Hz4wbOjcFl0yGHOyVK Y0ZYVqzTJqF8OwfE1jFzUpZWF w JJXxZ5SluJBrQLnyR386THtnA oU5NYDmyqZjP2DbTGRsrBvpOs O4e3U4Va5RUx71PZ14SV48yKN g a3F0sMX3X1WjNCUumdfpaxxck UM4XZLqVHPzoS70Rg0ioPqvBq 5nILNhUQB5YHSptDUfD2LcpA8 y WsZwDYZkSFYzN6LkkDCdARdpB 758RXhqZfL0RWOgekWkZ8OdMK TiqYmtZmT3r3I3Wr4MKMjvdup 8 H9CnGpgnmQL+JU36SYWgFO50p PQllEQxk5fttCh8BiQsGOXpGA Y4zXtrNFtaf7VqRLEcL34zoXV w c2U6 (more content not included)... Normal [facility] Consent for Treatmenton 12-01 Consent for Treatment [id number]#1.00CD:12 7 Normal [facility] Multi-Wound Charton 12-10-19 Multi-Wound Chart [id number]#1.00CD:1 27 Normal [facility] Nursing Note - Woundon 12-10 Nursing Note - Wound [id number]#1.00CD:1 27 [facility] Physician Orderon 12-10-2022 Physician Order [id number]#1.00CD:1 27 [facility] Procedure - Woundon 12-10-19 Procedure - Wound [id number]#1.00CD:1 27 [facility] Nursing Note - Woundon 12-09 Nursing Note - Wound [id number]#2.00CD:1 27 [facility] Coding Summary.on 12-04-2022 Coding Summary. CD:088156LP:3107882A Gh0bW w+PGhlYWQ+SH4PPLMqP31ryRE qvI7JU8nQYY9PDZUJKYCJNG9V EQ6lcLR1QBcgP6FqboUj YliqbSOyQU20RXk4YIW9mUraD LowlI9vzEHjK8m4VmGlPI59mU 67AKcfXJKfNqZ2WfSgwwbkrOE y N2jjGoQrdVUvIgl+PHRhYmxlI HdpZHRoPScxMDAlJyBzdHlsZT 1qSb9fIVHbWCAvxCbmrTJkEwL j l7spBHAkLAslSZ9iaNkkK5Ahe XC0WKOhm8l3Wz42uLR+PHRkIH U9vRkhXEdcp504KeKvx3vnBOI 3 wYPvUHtlHJQ3N87ig7J8XCXhZ QEwQGF2fPX9gB8awPirurjpQ0 YbpYWgNjK8KTC2aYIutL4qiEe n esjbhI6nDdn+K91YYI3LVCRIF W1JPmg0D6NsRiikkOY+PC90YW WjFO43rLAlyIZhd5fjnLh8TlU w IVOlHMZ3mZjtHKixf6MsXRGuS 20uiCIwp0Q0AEDiyPlhwOPgHb MamYA1rK3tHKmrlneor4fczpb n Vuaet5xfew80wQ59F59cLJawV EEhDJW9KRPqUVEclEuneo1mzZ 9wIi8+SIjfw1mzt2uoiYy8GuS w YIDltuZhnFxvAGT7w3OzPy53E 2ZrpLbgd5HyXiq1fa11sPKlm9 A2oYV9IRycQSQlqB7qWBqiQqM 6 DECnHuYexD77rUYgGThtUx7ye QqloGafUE2rEDInlpsiNWGyaS 0cYCIhrQZlwBasQW9dQIOvjpb m v826XeBpHXL0KQJxbQLnW6Old T0eAgTnJDSbBAKsB7XokPSvDT ikY200CJdyXiM0GRJzijToN1J s WRSdsJghUzL1u0H6Ti4Rq0Wmr wxuSBG4RDttYOMjXaE1TsEvEl M2I5JbGeq6SUTmoIwmWS5bA1Q h HZDictdfjaorsHC9VHGiQNOhb S18gQDkXUlqBz0ef1Z0c604NB TvTTYfqB63Bo5liHefZUTkfEL U qP1xtkifh0nppmqjVvYfQSIiF Pr3GBw5JSJrgUrtFlKsWOC4Bh S9BYH1gKXjmM2feBzvmbhvkI9 w Oyc+I63ujU8vPGB7BZK8htisN BLsncErYZ71EI02Y0BfPkivpB FibGU+BTZhedBmfDwhDH6nZgK j g0its0XhNKtrI6YhSRNpQFwoY wk0EBTiXSL2nTE3pL8eYBSuGG ebs1N0jIK2S1EuywNzih5za3d s RHDmJMydJ51bgTXes2S3SYYle EE4XLCcwKljJyXsmD99Lgl+PG DwbYxuy1LoJvgmf3zwm8sopSc 9 MjHaMAZafxRdnIbsRPL2t0EbL e79M49bKIgeHIApBUCnVHWmWD XcpDjngh2lbG0wJo9+PGNvbCB 3 lBN3mQ9sRAEiEcK4OFtfK878K xXqmCAtJhhpy0hka3mwsCo0Lw VcOLEigtGzgWdiXOI7t7FoKc5 8 Y64ySZdbCJArQIEvCQQmHFUau Mrwke0saC0pHk6+OL0gp3zjmw 58oK79uIQ+RXQwJUB5mRezEMk w LRTsmF0pHXpfKcO9HOYaJuMkx Z15vMGgHPysAn1imPynzRpmEI 7nRMKxjcjgi560TnAiz7bcUGL w nPHsNYimGLR2A04aw3H1PLSmE OJeOKS9rBR7hL2tyTojoglclD JwwShsvcGnuGqlDAhwSOenL68 6 IHRvcDsnPlBhdGllbnQgTmFtZ Bo2J9RuZgs9LLIfbGynDR5xfK CwRCnsNf4poGvhjKgtWN2mILJ p sjmcv784WyPmu2dnIZIwkEAfS VuqKGZ6H66pi0P9AFTuTSOnLZ R3gXR1dF5amHgdlzyarTMgnIl g zsValBgkJBtxWTylN264BGAhx OtkFeTxnmBbOIFydXQ4RP58TR 26iHTxy3U5fEF6M7FgDEUltpm t prcrhRN6LZDcXRCiqN84Uv5og UolSg5zLEHbBJN6BZFobBUsV7 InbN0oNwErQELxDMOjS7NlsBD t BYjhG894PUdaUhR4PFVpsaTbN 5BnSFZcgKjmEsW0z2U5Ao3YT7 G0YT15AN75dVXri8N1eRJ6C5N h OEOgpulcmgndzTL9OUSaWZWnc S65Rh1gnUuxYd5sKACuWKQ2ZX AsmKFlF1KztB5uNqPlGQAnYUI w Y2AnaIKuSVjaC104YZprPbN0J TPfwaQpD5QcGVHfhMgiYaT0k2 Y6Qg8AKXe5PI20BZ20yWSau1X 5 jHF3G0StUVPmljalfhmobNB3G QBoXDQsqL12Rb2crWbmYs0tUW GgNCI6ZSRlqDNlX7UzoA3aJxK j DLKfXOVjK4JqtASqFMorY048A YinDnQ4VXZocmNjF3UyITMyqD yeCvD9f2O3Wq2VRLCjDS04OYH 5 wGK8CN76VF73J2LkIqiyzNRwh +PHRhYmxlIHdpZHRoPScxMD UaBpKhhYoyDT0gXt0zVJUwHSC v lYzckMMmHpXxk9oyKEGnBThzQ U5azQpvY3AeiHC5VCTrd8p5Qh 12C72dN2HohQU+TEBycJY6qZA 0 eV2aMmFuIeC2DDgiR059KkFif FSaRwnte7jsn4txvYp2YdQ2VE EbclAakRgtIMP9e1FhCn24B85 s IHdpZHRoPSIxNSUiIHZhbGlnb t1uyG2nAu3+ARBzaSF7fNA5xR 9pKjElKvD6WFopV533JeVpnET v Iqzvc7etn4gfqFp9LiGrHCSch oRklXifCYF3k0PvOy07J4GfpB zak5AqGof1ci53iEYod0J6tHN 9 M3XsFWAbanutiFLkaIqsOT3jQ LNnkwyrWYUpjY8nVOOxL2k7Kf GzAyM0QQkxX5SctvI1ZFJzaQJ g ETtcXWA7A13se3R2FVVgERNtX OD9xLP2lN5eqPirtxyedYOswR gqzyPyfAidNTxxHFvpL614FEP v nStzNSHciM2eXSBqrJTpqZhtB P0aEWBiphjdOcAHUo5DTltoYX 1ZNIbWSZa6F6PgPoe6KAVgiJy s YV6khQWxBNbcXa2heTwnoZfgJ G1dOCPugppyMPWjfN3xVDRcrG EqeWciTC4dNACsgmbez385YpI x AEJ8RGFrjRLwV1EltY3rZqHhS EZlMXMkB3ZqjRFkBMhbQ283TM fjQhA8VGRkrnAaN9NpBNMtmFl u BeD1b2G8Od1tPy0cTO4rMXD8T A06GP30dFEkf3L0gRT0E3VuPH GgewhwzmgthAO6ACHtVIMaqO2 7 fFMsYPhvFj0br1B6g915IQNqD DCbsM59Er4bcHtdZXLthYWWpO 0iiokca9xwqdksHiAtCWGiKUt 0 JLk4OSQjnHgnSbStDYI9BiT9Q NC6lPRhxR1ycKcankllsW6uPj c+XrEcHQKndwU4H0QhKzn5WES z uAfvUF7aeJAbBUljCw6arEynm JcjCO0fZBIegfwxIFNnzZ4dRY SpdQSafLzzRA6xZUSmhvfbu75 0 RqRlNGN4UAHejUPlB4MitQ7bB gKjLPDqOWWoP2QuzOAyVFrgI6 39XNjhNsM0KXNqvfWuQ8TsHXN s pTcgOqS4d9N9Ew6HPZjzEG57B B87dXQvs7M9uIY0K0OlEMAhpu kgpynluEC7TQHbXFGjeH81hGM k MXxkHg8hm6M5a388VCUuYQQdi Z63Zc6jvJqiHMLycXABpJ7ftf ghs3vqnskpIhShSUGkVSv4UTa 0 IHZcdNkeDhNcFOB4QuG7RTH4d LPgoF6utPfgvjgcpX1wUoe+T3 V2rPP0sVZdmKdneCO+JQ13ly5 8 K7EpMhpuAwv8VQCsEJI6zZR2q B9aKMXwRYbgy9O1vNC9R7Ifsz Hrbe2gd7jxVHFqQCesI81hkTS w h9G2EHAvqMD2HSFvsYalJaDss G93Oyc+SECqxQxlk8AqLgenb4 mai9yflXm2CdHmCVQiugOjuYo u CPO3i4NwUm72O97gECsdLXThZ DFiJDZtWIVruZsdpx2drU8eJh 8+NCOflGV2mHW7wC5dMjPbRpT 2 WQayA751MvWsfZBmUandk8mfa 2bimWl6HzFgWGGlnrWdhLdoRM P8n5IwLk00A6ZtwSmxq8QzYql 0 tf33yBOuf1C8jKP5V3EhADPna jfzdXSofHtvIE2bPUTkystkBC MvsS2oYBMhH8p0LqXmPdU1MHg u M5RfvcT4VGYdbCLjCVDheQECw I1optcvx2dttovnIxViUGCtMZ c9GSb3XXYzyQzhGmZfKHH4XgV 2 MKR2gRQttE4lbEhtucdfbH5uK yc+CXt5y7tfaIBpJX1tnPL3YX 82DG48xLIdt3R7pWW3V5BrJXT p maymexkkzOQ2PVBdCVItrI75E z6ryLpuCc9oDVVqBBZ4NVAxpY RaL8KdbE6cZxSzLTTwRUKwQ6U l pVUnADgsB182IOmsXdD8OWLii hQsR4MyMAOpgJugJcL2g5X1Bt 5RUF41GI17KP55lUFgf1R2mNN 9 F7ZzSJEtnrwnmmymrDS7PXAbI FCxtB65Le4qbFowEx0zHJFbOO B2BISzxLTvA5YbaA6sAvWxHUG w CNAiP9VuzVFtGNhyO262VIesY lG7GHTuwvOxI2CbPEGzuTikDz G1t7V4Nc8SLi01UA16BM15nAF g x0L6oEC6Q4MjXZIxygzietzog IF0QYBrDVHauV83Lk5ypXemXn 5cGJOdOPB5PUGpkEOcW5BlnT3 y VrReJOYpSNQrK5JyoTLgUIzgC 602UBncNzU2XTFyajAbY6RwBK HieDqbTxK1i3O7Ga8CHCtudth 8 Z5WuAqbfeDF+FC73VESaXL72t WVurULmh5csoOh2HcSoSYGkIR O7jToiBHwdd5MlTCZaU56izZS w c2U6 (more content not included)... [facility] Consent for Procedure/Surger yon 12-04-2022 Consent for Procedure/Surgery [id number]#1.00CD: 127 [facility] Consent for Procedure/Surgery [id number]#1.00CD: 127 [facility] Consent to Photographon Consent to Photograph [id number]#1.00CD: 127 [facility] Correspondence - Woundon Correspondence - Wound [id number]#1.00CD: 127 [facility] Correspondence - Wound [id number]#1.00CD: 127 [facility] Correspondence - Wound [id number]#1.00CD: 127 [facility] HIPAA Forms Officeon 023 HIPAA Forms Office [id number]#1.00CD: 127 [facility] Nursing Assessment - Woundon 12-04-2022 Nursing Assessment - Wound [id number]#1.00CD:1 27 [facility] Physician Orderon 12-04-2022 Physician Order [id number]#1.00CD:1 27 [facility] Procedure - Woundon 12-04-19 Procedure - Wound [id number]#1.00CD:1 27 [facility] Progress Note - [place] Progress Note - Wound [id number]#1.00CD:1 27 [facility] Consent for Treatmenton Consent for Treatment [id number]#1.00CD:12 7 [facility] Multi-Wound Charton 12-03-19 Multi-Wound Chart [id number]#1.00CD:1 27 [facility] Correspondence - [place] Correspondence - Wound [id number]#1.00CD:12 7 [facility] Progress Noteson 07-20-2022 [employer] Authentication Interface Message Text EMERGENCY TRIAGE, TREAT AND TRANSPORT (ET3) DOCUMENTATION OF TELEHEALTH VISIT Date / Time: 07/18/2022 / 0 Name: Yousif Aguilar : 1945 SSN: [id number] EMS Agency: [facility] [] Verbal consent obtained [] [...] Completed by: Wilfrid Haley MD Normal [employer] Coding Summary.on 02-19-2019 Coding Summary. CODING DATE: 019 [facility] STATUS: Home (Routine DC) PAYOR: Medicare APC [...] elsewhere classified E78.00 Pure hypercholesterolemia, unspecified Z79.01 care home (current) use of anticoagulants Z86.718 Personal history [...] Center CNOVon 09-03-2017 CNOV Office Visit (VASSFT) JEF AGUILAR Jimbo ([id number]) 1945 MDate Time Provider Iehwaeiccr19/4/17 10:00 AM NEO ROCHA During your visit today, we recorded the following information about you: Pulse Blood pressure Weight 73/minute 142/72 142.9 kgNeo Rocha MD 09/03/2017 10:08 AM [facility] Department of Cardiovascular MedicineOUTPATIENT VISIT DATE September 03, 2017OUTPATIENT VISIT TYPEESTABLISHEDPRIMARY CARE PHYSICIAN:Abbie Gtz III DO257 PAULO SALGUERO [address] [place] [address]Lqons: [phone]: [phone] PHYSICIANAbbie Gtz III, DO257 Paulo Salguero [facility] [id number] COMPLAINT:No chief complaint on file.HISTORY OF PRESENT [...] PE and DVT, 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 CT Chest +[id number] DUS LE +Rt femoral and popliteal [id number] DUS LE +Lt popliteal DVTPAST MEDICAL HISTORYDiagnosis [...] kg (315 lb) SpO2 94% BMI 43.93 kg/m2Brqjnbr appearance: alert and cooperative individual, in no [...] elevation.Neo Rocha, RODNEYeferring Provider: ABBIE GTZ III [[id number]]Allergies As of Date: 09/03/2017 Noted Allergy ReactionSHELLFISH [...] to improve.Follow-up and Disposition History RecordedEncounter Number: [id number] Status:Closed by NEO ROCHA MD on 09/03/17 Normal [facility] PROGRESSon 09-03-2017 PROGRESS HNO ID: [id number] thor: Neo Godinez: (none)Author Type: PhysicianType: Progress NotesFiled: 09/03/2017 10:08 AMNote Text:[facility] InstituteRobmount[facility] Rosie [facility] Department of Cardiovascular MedicineOUTPATIENT VISIT DATE September 03, 2017OUTPATIENT VISIT TYPEESTABLISHEDPRIMARY CARE PHYSICIAN:Abbie Gtz III, DO257 [facility] AVFEI C JOSE M [address] [place] [address]Oaodr: [phone]: [phone] PHYSICIANAbbie Gtz III, DO257 Nazlini AvFeig C Jose M [facility] [id number] COMPLAINT:No chief complaint on file.HISTORY OF PRESENT [...] PE and DVT, 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 CT Chest +[id number] DUS LE +Rt femoral and popliteal [id number] DUS LE +Lt popliteal DVTPAST MEDICAL HISTORYDiagnosis [...] kg (315 lb) SpO2 94% BMI 43.93 kg/u9Wlomoet appearance: alert and cooperative individual, in no [...] skin moisturizer, leg elevation.Neo Rocha MD Normal [facility] Vital Signs Date Time Vital Sign Value Performing Clinician Facility 10-28-2023 17:16-0500 Heart rate 69 /min [facility] 10-28-2023 17:16-0500 SaO2% (BldA) [Mass fraction] 92 % Theresa [facility] 10-28-2023 17:16-0500 Diastolic blood pressure 77 mm[Hg] Theresa [facility] 10-28-2023 17:16-0500 Mean blood pressure 100 mm[Hg] Theresa [facility] 10-28-2023 17:16-0500 Systolic blood pressure 145 mm[Hg] Theresa [facility] 10-28-2023 17:16-0500 Respiratory rate 16 /min Theresa [facility] 10-28-2023 16:09-0500 Heart rate 59 /min Theresa [facility] 10-28-2023 16:09-0500 SaO2% (BldA) [Mass fraction] 95 % Theresa [facility] 10-28-2023 16:09-0500 Diastolic blood pressure 82 mm[Hg] [facility] 10-28-2023 16:09-0500 Mean blood pressure 95 mm[Hg] [facility] 10-28-2023 16:09-0500 Systolic blood pressure 121 mm[Hg] [facility] 10-28-2023 16:08-0500 Respiratory rate 16 /min [facility] 10-28-2023 15:58-0500 Blood Pressure Location Theresa [facility] 10-28-2023 15:58-0500 Body temperature 96.98 [degF] [facility] 10-28-2023 15:58-0500 Diastolic blood pressure 68 mm[Hg] [facility] 10-28-2023 15:58-0500 Heart rate 64 /min Theresa [facility] 10-28-2023 15:58-0500 Mean blood pressure 88 mm[Hg] [facility] 10-28-2023 15:58-0500 Respiratory rate 18 /min Theresa [facility] 10-28-2023 15:58-0500 SaO2% (BldA) [Mass fraction] 96 % [facility] 10-28-2023 15:58-0500 Systolic blood pressure 127 mm[Hg] [facility] 10-28-2023 15:46-0500 Blood Pressure Location Theresa [facility] 10-28-2023 15:46-0500 Mean blood pressure 86 mm[Hg] [facility] 10-28-2023 15:46-0500 Respiratory rate 14 /min Theresa [facility] 10-28-2023 15:41-0500 Blood Pressure Location Theresa [facility] 10-28-2023 15:41-0500 Mean blood pressure 95 mm[Hg] [facility] 10-28-2023 15:41-0500 Respiratory rate 18 /min [facility] 10-28-2023 15:31-0500 Body temperature 96.98 [degF] [facility] 10-28-2023 11:04-0500 Heart rate 80 /min [facility] 10-28-2023 11:02-0500 Respiratory rate 20 /min Theresa [facility] 10-28-2023 11:02-0500 Body temperature 97.7 [degF] [facility] 10-28-2023 11:02-0500 Mean blood pressure 104 mm[Hg] Theresa [facility] 10-22-2023 12:34-0500 Heart rate 80 /min Theresa [facility] 10-22-2023 12:34-0500 SaO2% (BldA) [Mass fraction] 94 % Theresa [facility] 10-22-2023 12:34-0500 Diastolic blood pressure 65 mm[Hg] [facility] 10-22-2023 12:34-0500 Mean blood pressure 86 mm[Hg] Theresa [facility] 10-22-2023 12:34-0500 Systolic blood pressure 130 mm[Hg] [facility] 10-22-2023 12:34-0500 Body temperature 97.7 [degF] [facility] 10-22-2023 12:34-0500 Respiratory rate 18 /min Theresa [facility] 10-17-2023 22:14-0500 Diastolic blood pressure 94 mm[Hg] Daniellen [facility] 10-17-2023 22:14-0500 Heart rate 82 /min Chantelylinn [facility] 10-17-2023 22:14-0500 Mean blood pressure 121 mm[Hg] Kaylinn [facility] 10-17-2023 22:14-0500 Respiratory rate 18 /min Kaylinn [facility] 10-17-2023 22:14-0500 SaO2% (BldA) [Mass fraction] 96 % Kaylinn [facility] 10-17-2023 22:14-0500 Systolic blood pressure 174 mm[Hg] Kaylinn [facility] 10-17-2023 21:29-0500 Body temperature 97.7 [degF] Kaylinn [facility] 10-17-2023 21:29-0500 Diastolic blood pressure 75 mm[Hg] Kaylinn [facility] 10-17-2023 21:29-0500 Heart rate 80 /min Kaylinn [facility] 10-17-2023 21:29-0500 Respiratory rate 18 /min Kaylinn [facility] 10-17-2023 21:29-0500 SaO2% (BldA) [Mass fraction] 98 % Kaylinn [facility] 10-17-2023 21:29-0500 Systolic blood pressure 162 mm[Hg] Kaylinn [facility] 10-17-2023 21:14-0500 Body temperature 97.7 [degF] Kaylinn [facility] 10-17-2023 21:14-0500 Diastolic blood pressure 78 mm[Hg] Kaylinn [facility] 10-17-2023 21:14-0500 Heart rate 83 /min Bryce [facility] 10-17-2023 21:14-0500 Respiratory rate 18 /min [facility] 10-17-2023 21:14-0500 SaO2% (BldA) [Mass fraction] 99 % Bryce [facility] 10-17-2023 21:14-0500 Systolic blood pressure 158 mm[Hg] [facility] 02-17-2023 11:00-0400 Body height 177.8 cm Perlita Hintonbrenda Other [facility] Other 02-17-2023 11:00-0400 Body mass index (BMI) [Ratio] 38.31 kg/m2 Perlita Hintonbrenda Other [facility] Other 02-17-2023 11:00-0400 Body temperature 97.8 [degF] Perlita Hintonbrenda Other [facility] Other 02-17-2023 11:00-0400 Body weight 121.11 kg Perlita Hintonbrenda Other [facility] Other 02-17-2023 11:00-0400 Diastolic blood pressure 787 mm[Hg] Perlita Reno Other [facility] Other 02-17-2023 11:00-0400 SaO2% (BldA) [Mass fraction] 97 % Perlita Rutbrenda Other [facility] Other 02-17-2023 11:00-0400 Systolic blood pressure 130 mm[Hg] Perlita Reno Other [facility] Other 07-18-2022 14:30-0400 Diastolic blood pressure 65 mm[Hg] [facility] 07-18-2022 14:30-0400 Heart rate 83 /min [facility] 07-18-2022 14:30-0400 Respiratory rate 18 /min [facility] 07-18-2022 14:30-0400 Systolic blood pressure 117 mm[Hg] Et[facility] 07-05-2022 13:39-0400 Diastolic blood pressure 67 mm[Hg] [facility] 07-05-2022 13:39-0400 Heart rate 71 /min [facility] 07-05-2022 13:39-0400 Mean blood pressure 88 mm[Hg] [facility] 07-05-2022 13:39-0400 Respiratory rate 18 /min [facility] 07-05-2022 13:39-0400 SaO2% (BldA) [Mass fraction] 99 % [facility] 07-05-2022 13:39-0400 Systolic blood pressure 130 mm[Hg] [facility] 07-05-2022 13:00-0400 Diastolic blood pressure 66 mm[Hg] [facility] 07-05-2022 13:00-0400 Heart rate 69 /min [facility] 07-05-2022 13:00-0400 Mean blood pressure 89 mm[Hg] [facility] 07-05-2022 13:00-0400 SaO2% (BldA) [Mass fraction] 97 % [facility] 07-05-2022 13:00-0400 Systolic blood pressure 135 mm[Hg] [facility] 07-05-2022 12:30-0400 Diastolic blood pressure 63 mm[Hg] [facility] 07-05-2022 12:30-0400 Heart rate 72 /min [facility] 07-05-2022 12:30-0400 Mean blood pressure 84 mm[Hg] [facility] 07-05-2022 12:30-0400 Respiratory rate 18 /min [facility] 07-05-2022 12:30-0400 SaO2% (BldA) [Mass fraction] 93 % [facility] 07-05-2022 12:30-0400 Systolic blood pressure 126 mm[Hg] [facility] 07-05-2022 12:05-0400 Heart rate 76 /min [facility] 07-05-2022 11:50-0400 Body temperature 98.24 [degF] [facility] 07-05-2022 11:50-0400 Heart rate 81 /min [facility] 03-21-2022 08:18-0400 Blood Pressure Location Mitalirachel Zhuz [facility] 03-21-2022 08:18-0400 Body temperature 97.34 [degF] Mitali Carine [facility] 03-21-2022 08:18-0400 Diastolic blood pressure 74 mm[Hg] Mitali Carine [facility] 03-21-2022 08:18-0400 Heart rate 78 /min Mitali Menendezmetz [facility] 03-21-2022 08:18-0400 SaO2% (BldA) [Mass fraction] 96 % Mitali Hawk [facility] 03-21-2022 08:18-0400 Systolic blood pressure 122 mm[Hg] Mitali Hawk [facility] Encounters Encounter Date Encounter Type Care Provider Facility Start: 12-22-2023 End: 12-22-2023 ambulatory ADDI POCOS Not Available Start: 11-28-2023 End: 11-28-2023 ambulatory ADDI POCOS Not Available Start: 11-10-2023 End: 11-10-2023 ambulatory ADDI POCOS Not Available Start: 10-28-2023 End: 10-28-2023 ambulatory Addi Pocos Facility:[facility] Start: 10-28-2023 End: 10-28-2023 Admission to same day surgery center Addi [facility] Start: 10-27-2023 End: 10-28-2023 ambulatory Abbie Gtz Facility:[facility] Start: 10-27-2023 End: 10-27-2023 Patient encounter procedure [facility]bieTre [facility] Start: 10-22-2023 End: 10-23-2023 ambulatory Addi Pocos Facility:[facility] Start: 10-22-2023 End: 10-22-2023 Patient encounter procedure Addi Pocos [facility] Start: 10-20-2023 End: 10-20-2023 ambulatory ADDI POCOS Not Available Start: 10-17-2023 End: 10-18-2023 Emergency department patient visit Bryce Funk Facility:[facility] Start: 10-17-2023 End: 10-17-2023 Emergency department patient visit Bryce [facility] Start: 08-05-2023 End: 08-06-2023 ambulatory Facundo D Dolce Facility:[facility] Start: 07-29-2023 End: 07-30-2023 ambulatory Facundo D Dolce Facility:[facility] Start: 07-29-2023 End: 07-29-2023 Patient encounter procedure Facundo [facility] Start: 07-22-2023 End: 07-23-2023 ambulatory Facundo D Dolce Facility:[facility] Start: 07-14-2023 End: 07-15-2023 ambulatory Facundo D Dolce Facility:[facility] Start: 07-14-2023 End: 07-15-2023 Patient encounter procedure Facundo Tima Hayjames [facility] Start: 07-08-2023 End: 07-09-2023 ambulatory Facundo D Dolce Facility:[facility] Start: 07-08-2023 End: 07-08-2023 Patient encounter procedure Facundo D Qian [facility] Start: 06-30-2023 End: 07-01-2023 ambulatory Facundo D Dolce Facility:[facility] Start: 06-30-2023 End: 06-30-2023 Patient encounter procedure Facundo [facility] Start: 06-24-2023 End: 06-25-2023 ambulatory Facundo D Dolce Facility:[facility] Start: 06-17-2023 End: 06-18-2023 ambulatory Facundo D Dolce Facility:[facility] Start: 06-17-2023 End: 06-17-2023 Patient encounter procedure Facundo D Qian [facility] Start: 06-10-2023 End: 06-11-2023 ambulatory Stephenarturo Hoffman Facility:[facility] Start: 06-10-2023 End: 06-10-2023 Patient encounter procedure Stephen R Bhart[facility] Start: 06-02-2023 End: 06-03-2023 ambulatory Facundo Hoffman Facility:[facility] Start: 06-02-2023 End: 06-03-2023 Pre-admission assessment Facundo [facility] Start: 05-27-2023 End: 05-28-2023 ambulatory Stephen R Bhartice Facility:[facility] Start: 05-27-2023 End: 05-27-2023 Patient encounter procedure Stephen R Bhartijames [facility] Start: 05-20-2023 End: 05-21-2023 ambulatory Facundo Hoffman Facility:[facility] Start: 05-20-2023 End: 05-20-2023 Patient encounter procedure Facundo [facility] Start: 05-15-2023 End: 05-16-2023 ambulatory Facundo Hoffman Facility:[facility] Start: 05-15-2023 End: 05-15-2023 Patient encounter procedure Facundo [facility] Start: 05-06-2023 End: 05-07-2023 ambulatory Facundo Hoffman Facility:[facility] Start: 05-06-2023 End: 05-06-2023 Patient encounter procedure Facundo [facility] Start: 04-23-[address] FACUNDO HOFFMAN Facility: Start: 04-22-2023 End: 04-23-2023 ambulatory Facundo Hoffman Facility:[facility] Start: 04-15-2023 End: 04-16-2023 ambulatory Facundo Hoffman Facility:[facility] Start: 04-08-2023 End: 04-09-2023 ambulatory Facundo Hoffman Facility:[facility] Start: 04-08-2023 End: 04-08-2023 Patient encounter procedure Facundo [facility] Start: 04-02-2023 End: 04-03-2023 ambulatory Stephen R Bhartice Facility:[facility] Start: 04-02-2023 End: 04-02-2023 Patient encounter procedure Stephen [facility] Start: 03-25-2023 End: 03-26-2023 ambulatory Facundo Tima Hoffman Facility:[facility] Start: 03-17-2023 End: 03-19-2023 ambulatory Facundo Alfred Dolce Facility:[facility] Start: 03-11-2023 End: 03-12-2023 ambulatory Facundo Alfred Doljames Facility:[facility] Start: 03-11-2023 End: 03-11-2023 Patient encounter procedure Facundo Hayj[facility] Start: 03-04-2023 End: 03-05-2023 ambulatory Facundo Hayjames Facility:[facility] Start: 03-04-2023 End: 03-04-2023 Patient encounter procedure Facundo Hayj[facility] Start: 02-27-2023 End: 02-27-2023 ambulatory Perlita Reno Facility:[facility] Start: 02-27-2023 End: 02-27-2023 ambulatory DO Abbie R Gtz III Work Phone: [facility] Work Phone: Start: 02-27-2023 End: 02-27-2023 Patient encounter procedure DO Abbie Gtz III Work Phone: [facility] [place] Work Phone: Start: 02-24-2023 End: 02-25-2023 ambulatory Facundo Hayjames Facility:[facility] Start: 02-24-2023 End: 02-24-2023 Patient encounter procedure Facundo Alfred [facility]ij[facility] Start: 02-18-2023 End: 02-19-2023 ambulatory Facundo Alfred Qian Facility:[facility] Start: 02-18-2023 End: 02-18-2023 Patient encounter procedure Facundo Hayjames [facility] Start: 02-17-2023 End: 02-17-2023 ambulatory Perlita Reno Other [facility] Other Start: 02-17-2023 [facility] visit new patient Perlita Ramesh nasir [facility] Start: 02-11-2023 End: 02-12-2023 ambulatory Facundo Hoffman Facility:[facility] Start: 02-04-2023 End: 02-05-2023 ambulatory Facundo Hoffman Facility:[facility] Start: 02-04-2023 End: 02-04-2023 Patient encounter procedure Facundo [facility] Start: 01-28-2023 End: 01-29-2023 ambulatory Facundo Hoffman Facility:[facility] Start: 01-28-2023 End: 01-29-2023 ambulatory Facundo Hoffman Facility:[facility] Start: 01-28-2023 End: 01-28-2023 Patient encounter procedure Facundo [facility] Start: 01-21-2023 End: 01-22-2023 ambulatory Facundo Hoffman Facility:[facility] Start: 01-21-2023 End: 01-21-2023 Patient encounter procedure Facundo [facility] Start: 01-15-2023 End: 01-22-2023 Pre-admission assessment Facundo [facility] Start: 01-14-2023 End: 01-15-2023 ambulatory Facundo Hoffman Facility:[facility] Start: 01-14-2023 End: 01-14-2023 Patient encounter procedure Facundo [facility] Start: 01-07-2023 End: 01-08-2023 ambulatory Facundo Hoffman Facility:[facility] Start: 01-07-2023 End: 01-07-2023 Patient encounter procedure Facundo [facility] Start: 12-31-2022 End: 01-01-2023 ambulatory Facundo Hoffman Facility:[facility] Start: 12-31-2022 End: 12-31-2022 Patient encounter procedure Facundo [facility] Start: 12-27-2022 End: 12-28-2022 ambulatory Facundo Hoffman Facility:[facility] Start: 12-27-2022 End: 12-27-2022 Patient encounter procedure Facundo [facility] Start: 12-24-2022 End: 12-25-2022 ambulatory Facundo Hoffman Facility:[facility] Start: 12-24-2022 End: 12-24-2022 Patient encounter procedure Facundo [facility] Start: 12-17-2022 End: 12-18-2022 ambulatory Facundo Hoffman Facility:[facility] Start: 12-10-2022 End: 12-11-2022 ambulatory Facundo Hoffman Facility:[facility] Start: 12-10-2022 End: 12-10-2022 Patient encounter procedure Facundo [facility] Start: 12-03-2022 End: 12-04-2022 ambulatory Facundo Hoffman Facility:[facility] Start: 12-03-2022 End: 12-03-2022 Patient encounter procedure Facundo [facility] Start: 10-23-2022 End: 10-31-2022 ambulatory UNKNOWN PROVIDER Facility:[facility] Start: 07-20-2022 End: 07-22-2022 ambulatory UNKNOWN PROVIDER Facility:[facility] Start: 07-18-2022 End: 07-18-2022 ambulatory [facility] Emergenc y Triage, Treat and Transport Start: 07-18-2022 End: 07-18-2022 Emergency department patient visit [facility] Emergency Triage, Treat and Transport Comment on above: Arrived Start: 07-05-2022 End: 07-05-2022 Emergency department patient visit Itz Rachel [facility] Start: 03-21-2022 End: 03-21-2022 Patient encounter procedure Mitali Hawk [facility] Start: 02-23-2019 Patient encounter procedure Zakia Buck Facility:[facility] Start: 01-01-2019 End: 01-02-2019 Patient encounter procedure Stephen CrossNelly Qian Facility:[facility] Start: 09-03-2017 End: 09-04-2017 Ambulatory NEO ROCHA [facility] Procedures Date Procedure Procedure Detail Performing [...] [facility] Start: [facility] Hepatitis C screening Hepatitis C An tibody [facility] Start: 1965 Tetanus + diphtheria + acellular pertussis vaccine (product) Tdap Booster [facility] Immunizations Immunization Date Immunization Notes Care Provider Hanny macias 08-31-2021 influenza virus vaccine, unspecified formulation Mitali Hawk [facility] 02-02-2021 zoster vaccine recombinant [facility] 09-05-2020 influenza, high dose seasonal, preservative-free [facility] 09-05-2020 influenza virus vaccine, unspecified formulation [facility] 10-15-2019 influenza, high dose seasonal, preservative-free [facility] 09-10-2018 influenza, injectabl e, quadrivalent, preservative free [facility] 09-29-2017 influenza, injectabl e, quadrivalent, preservative free [facility] 09-25-2016 influenza, injectabl e, quadrivalent, preservative free [facility] 03-28-2016 pneumococcal conjuga te vaccine, 13 valent [facility] 09-21-2015 influenza, seasonal, injectable Et3 [facility] 12-27-2013 pneumococcal conjuga te vaccine, 13 valent Et3 [facility] Payers Date Payer Category Payer Self-pay 2022 Medicaid [id number] 2021 Unknown [id number] 2021 Unknown 2021 Medicare [employer] MEDICARE [employer] CHOICE PPO/HMO [id number] 2021-Present [employer] CLAIMS OFFICE [address] [address] [place] [address] PPO [id number] 2018 Unknown [id number] 1947 Unknown [id number] ..840.1.836129.3.579.2.727 1947 Unknown [id number] 2.16.840.1.325069.3.579.2.727 1947 Unknown [id number] 2.16.840.1.360207.3.579.2.732 1947 Unknown [id number] 2.16.840.1.915803.3.579.2.732 1947 Unknown [id number] 2.16.840.1.594868.3.579.2.593 1947 Unknown [id number] 2.16.840.1.922479.3.579.2.727 1947 Unknown [id number] 2.16.840.1.811237.3.579.272 1947 Unknown [id number] 2.16.840.1.749827.3.579.272 1947 Unknown [id number] 2.16.840.1.847971.3.579.272 1947 Unknown [id number] 2.16.840.1.576268.3.579.272 1947 Unknown [id number] 2.16.840.1.080144.3.579.272 1947 Unknown [id number] 2.16.840.1.059254.3.579.2.72 1947 Unknown [id number] 2.16.840.1.475655.3.579.272 1947 Unknown [id number] 2.16.840.1.600087.3.579.2.72 1947 Unknown [id number] 2.16.840.1.212036.3.579.272 1947 Unknown [id number] 2.16.840.1.209244.3.579.2.72 1947 Unknown [id number] 2.16.840.1.448909.3.579.2. 1947 Unknown [id number] 2.16.840.1.522418.3.579.2 1947 Unknown [id number] 2.16.840.1.277071.3.579.2. 1947 Unknown [id number] 2.16.840.1.503686.3.579.2 1947 Unknown [id number] 2.16.840.1.550461.3.579.2 1947 Unknown [id number] 2.16.840.1.175958.3.579. 1947 Unknown [id number] 2.16.840.1.450692.3.579.2 1947 Unknown [id number] 2.16.840.1.374258.3.579.2 1947 Unknown [id number] 2.16.840.1.495203.3.579.2 1947 Unknown [id number] 2.16.840.1.465034.3.579.2 1947 Unknown [id number] 2.16.840.1.827288.3.579.2 1947 Unknown [id number] 2.16.840.1.294749.3.579.2 1947 Unknown [id number] 2.16.840.1.658121.3.579.2 1947 Unknown [id number] 2.16.840.1.164776.3.579.2 1945 Unknown [id number] 2.16.840.1.585439.3.579.2 1945 Unknown [id number] 2.16.840.1.610095.3.579.2 1945 Unknown [id number] 2.16.840.1.982470.3.579.2 1945 Unknown [id number] 2.16.840.1.382695.3.579.2 1945 Unknown [id number] 2.16.840.1.148961.3.579.2 1945 Unknown [id number] 2.16.840.1.354668.3.579.2 1945 Unknown [id number] 2.16.840.1.565309.3.579.2 1945 Unknown [id number] 2.16.840.1.128399.3.579.2 1945 Unknown [id number] 2.16840.1.006372.3.579.2 1945 Unknown [id number] 2.16.840.1.134577.3.579.2 1945 Unknown [id number] 2.16.840.1.949764.3.579.2 1945 Unknown [id number] 2.16.840.1.843611.3.579.2 1945 Unknown [id number] 2.16840.1.625417.3.579.2 1945 Unknown [id number] 2.16.840.1.120648.3.579.2 1945 Unknown [id number] 2.16.840.1.822015.3.579.2 1945 Unknown [id number] 2.16.840.1.926124.3.579.2 1945 Unknown [id number] 2.16.840.1.059093.3.579.2.9 1945 Unknown [id number] 2.16.840.1.787845.3.579.2.1259 1945 Unknown [id number] 2.16.840.1.609584.3.579.2.1259 1947 Unknown [id number] 2.16.840.1.066243.3.579.2.1259 1945 Unknown [id number] 2.16.840.1.949767.3.579.2.1259 1945 Unknown [id number] 2.16.840.1.702579.3.579.2.1259 1945 Unknown [id number] 2.16.840.1.105478.3.579.2.1259 Unknown Stacey NOLEN/SARAH [id number] Unknown [id number] 2.16.840.1.374516.3.579.2.531 Social History Date Type Detail Facility Start: 03-21-2022 Tobacco smoking status Ex-smoker (finding) [facility] Tobacco smoking status Never [facility] Sex Assigned At Male [facility] Tobacco smoking status GAIS Tobacco smoking consumption unknown [facility] Start: 1945 Sex Assigned At Not [facility] Start: 1945 Sex Assigned At Male [facility] Medical Equipment Procedure Code Equipment Code Equipment Origin al Text Equipment Identifier Dates ELBOW FRACTURE O RIF Theresa Villalpando DO 10/28/23 Unknown Elbow R FDA Start: 10-28-2023 ELBOW FRACTURE O RIF Camila DOTheresa 10/28/23 Unknown Elbow R FDA Start: 10-28-2023 Functional Status Date Assessment Result Facility 10-22-2023 Functional Status No [facility] 10-17-2023 Functional Status N/A [facility] 07-05-2022 Functional Status N/A [facility] Clinical Notes 03-21-2022 to 10-28-2023 Note Date & Type Note Facility 10-28-2023 Hospital Discharg e instructions Patient Education 10/28/2023 16:52:15 Post Op Patient Instructions - FT (Custom) (CUSTOM) 10/27/2023 07:36:07 [facility] - Home Care Instructions (Custom) [place] [facility] OUTPATIENT SURGERY Home Care [...] not drive. Theresa Villalpando, DO [facility] [address] [place] [address] [phone] Reviewed: 08 Follow Up Care 10/20/2023 14:32:22 With:Theresa Villalpando Address: [address] [place] [phone] Business (1) When:11/10/2023 14:30:00 Comments:Appointment has already been scheduled [facility] 10-27-2023 Note [id number] [facility] 10-18-2023 Hospital Discharg e instructions Patient Education [...] Follow these instructions at home: Medicines Take zifx-onr-mmqujlp and prescription medicines only as told by your health care provider. Ask your health care provider if the medicine prescribed to you: ?Requires you to avoid driving or using heavy machinery. ?Can cause constipation. You may need to take actions to prevent or treat constipation, such as: ?Drink enough fluid to keep your urine pale yellow. ?Take enxg-grg-nqiatkq or prescription medicines. ?Eat foods that are [...] provider. Document Revised: 02/14/2022 Document Reviewed: 02/14/2022 [employer] Patient Education 2022 [employer] Follow Up Care 10/17/2023 21:14:35 With:Theresa Villalpando Address: [address] [place], [place] [phone] Business (1) When:10/20/2023 Comments:You can use the pain medication every 6 hours as needed for pain. Please follow-up with your primary care doctor addition to orthopedics for further evaluation management. Please return to the ED for any new or worsening symptoms. With:Abbie Gtz Address: [address] [place] [address] [place] [address] Business (1) When:Within 3 Day(s) [facility] 10-17-2023 Evaluation + Plan note Extrac krystal from: Title:ED Note Author:Bryce Funk DO Date :10/17/23 Olecranon fracture (S52.023A : Displaced fracture of olecranon process without intraarticular extension of unspecified ulna, initial encounter for closed fracture) Orders: acetaminophen-hydrocodone, 1 tab(s), Oral, q6hr for pain for 3 day(s), 10 tab(s), Refill(s) 0, [facility] 1985, 177.8, cm, 10/17/23 21:21:00 EST, Height/Length Dosing, 133.1, kg, 10/17/23 21:21:00 EST, Weight Dosing Sling Apply XR Elbow 3+ Views Right [facility]03-20-20[facility] Evaluation note* Encounter Date Diagnosis Assessment [...] with this plan, and denies any questions. [facility] [employer] Other 08-20-2022 History of Present illness Narrative* Wilfrid Haley MD - 07/20/2022 8:23 AM EDT Images from the original note were not included. EMERGENCY TRIAGE, TREAT AND TRANSPORT (ET3) DOCUMENTATION OF TELEHEALTH VISIT Date / Time: 07/18/2022 / 1430 Name: Yousif Aguilar : 1945 SSN: [id number] EMS Agency: [facility] [] Verbal consent obtained [] [...] by: Wilfrid Haley MD documented in this [id number] Hospital Discharge instructions Patient Education 07/05/2022 13:44:46 [...] activities that cause pain. General instructions Take icph-pze-wycyugv and prescription medicines only as told by [...] 05/07/2011 Document Revised: 04/03/2020 Document Reviewed: 04/03/2020 [employer] Patient Education 2019 [employer] Follow Up Care 07/05/2022 11:49:47 With:Abbie Gtz Address: [address] [place] [address] [place] [phone] Business (1) When:07/08/2022 13:33:40 [facility] Evaluation + Plan noteExtracted from: Title:ED [...] XR Hip 2-3 Views Right + [facility]04-21-2022 Hospital Discharge instructions Patient Education 03/21/2022 [...] 08/13/2005 Document Revised: 03/04/2019 Document Reviewed: 03/04/2019 [employer] Patient Education [employer] Follow Up Care 03/05/2022 13:23:06 With:Mitali Hawk CNP Address: When:1 year only if needed [facility] Evaluation + Plan note No data available for this section [facility] Evaluation + Plan note Future Appointments Appointment Date:12/10/2022 10:00:00 AM Scheduled Provider: [facility] Appointment Type:WC Assessment (FT) Appointment Date:12/17/2022 01:45:00 PM Scheduled Provider:Facundo Hoffman DPM Location[facility] Appointment Type:WC [facility] Future Appointments Appointment Date:12/17/2022 01:45:00 PM Scheduled Provider:Facundo Hoffman DPM [facility] Appointment Type:WC [facility] Future Appointments Appointment Date:12/31/2022 10:30:00 AM Scheduled Provider: [facility] Appointment Type:WC Assessment (FT) Appointment Date:01/07/2023 01:45:00 PM Scheduled Provider:Facundo Hoffman DPM [facility] Appointment Type:WC [facility] Future Appointments Appointment Date:12/31/2022 01:30:00 PM Scheduled Provider: [facility] Appointment Type:WC Assessment (FT) Appointment Date:01/07/2023 01:45:00 PM Scheduled Provider:Facundo Hoffman DPM [facility] Appointment Type:WC [facility] Future Appointments Appointment Date:01/07/2023 01:45:00 PM Scheduled Provider:Facundo Hoffman DPM [facility] Appointment Type:WC [facility] Future Appointments Appointment Date:01/14/2023 02:30:00 PM Scheduled Provider:Facundo Hoffman DPM [facility] Appointment Type:WC [facility] Future Appointments Appointment Date:01/21/2023 03:30:00 PM Scheduled Provider:Faucndo Hoffman DPM [facility] Appointment Type:WC [facility] Future Appointments Appointment Date:01/28/2023 03:30:00 PM Scheduled Provider:Facundo Hoffman DPM [facility] Appointment Type:WC Follow Up Visit (FT) Appointment Date:02/11/2023 01:30:00 PM Scheduled Provider:Facundo Hoffman DPM [facility] Appointment Type:WC [facility] Future Appointments Appointment Date:02/04/2023 01:45:00 PM Scheduled Provider:Facundo Hoffman DPM [facility] Appointment Type:WC Follow Up Visit (FT) Appointment Date:02/11/2023 01:30:00 PM Scheduled Provider:Facundo Hoffman DPM [facility] Appointment Type:WC [facility] Future Appointments Appointment Date:02/11/2023 01:30:00 PM Scheduled Provider:Facundo Hoffman DPM [facility] Appointment Type:WC [facility] Future Appointments Appointment Date:02/25/2023 11:30:00 AM Scheduled Provider: [facility] Appointment Type:WC Assessment (FT) Appointment Date:03/04/2023 01:15:00 PM Scheduled Provider:Facundo Hoffman DPM [facility] Appointment Type:WC [facility] Future Appointments Appointment Date:03/04/2023 01:15:00 PM Scheduled Provider:Facundo Hoffman DPM [facility] Appointment Type:WC [facility] Future Appointments Appointment Date:03/11/2023 11:00:00 AM Scheduled Provider: [facility] Appointment Type:WC Assessment (FT) Appointment Date:03/17/2023 01:30:00 PM Scheduled Provider: [facility] Appointment Type:WC Assessment (FT) Appointment Date:03/25/2023 02:00:00 PM Scheduled Provider:Facundo Hoffman DPM [facility] Appointment Type:WC [facility] Future Appointments Appointment Date:03/17/2023 01:30:00 PM Scheduled Provider: [facility] Appointment Type:WC Assessment (FT) Appointment Date:03/25/2023 02:00:00 PM Scheduled Provider:Facundo Hoffman DPM [facility] Appointment Type:WC [facility] Future Appointments Appointment Date:04/08/2023 01:45:00 PM Scheduled Provider:Facundo Hoffman DPM [facility] Appointment Type:WC [facility] Future Appointments Appointment Date:04/15/2023 02:15:00 PM Scheduled Provider:Facundo Hoffman DPM [facility] Appointment Type:WC [facility] Future Appointments Appointment Date:05/15/2023 10:00:00 AM Scheduled Provider: [facility] Appointment Type:WC Assessment (FT) Appointment Date:05/20/2023 01:45:00 PM Scheduled Provider:Facundo Hoffman DPM [facility] Appointment Type:WC [facility] Future Appointments Appointment Date:05/20/2023 03:15:00 PM Scheduled Provider:Facundo Hoffman DPM [facility] Appointment Type:WC [facility] Future Appointments Appointment Date:06/02/2023 08:30:00 AM Scheduled Provider: [facility] Appointment Type:WC Assessment (FT) Appointment Date:06/10/2023 03:00:00 PM Scheduled Provider:Facundo Hoffman DPM [facility] Appointment Type:WC [facility] Future Appointments Appointment Date:06/10/2023 03:00:00 PM Scheduled Provider:Facundo Hoffman DPM [facility] Appointment Type:WC [facility] Future Appointments Appointment Date:06/24/2023 03:00:00 PM Scheduled Provider:Facundo Hoffman DPM [facility] Appointment Type:WC [facility] Future Appointments Appointment Date:07/08/2023 01:45:00 PM Scheduled Provider:Facundo Hoffman DPM [facility] Appointment Type:WC [facility] Future Appointments Appointment Date:07/14/2023 09:00:00 AM Scheduled Provider: [facility] Appointment Type:WC Assessment (FT) Appointment Date:07/22/2023 02:00:00 PM Scheduled Provider:Facundo Hoffman DPM [facility] Appointment Type:WC [facility] Future Appointments Appointment Date:07/22/2023 02:00:00 PM Scheduled Provider:Facundo Hoffman DPM [facility] Appointment Type:WC [facility] Future Appointments Appointment Date:08/05/2023 02:00:00 PM Scheduled Provider:Facundo Hoffman DPM [facility] Appointment Type:WC [facility] (FT[facility] Future Appointments Appointment Date:10/28/2023 02:00:00 PM Scheduled Provider: Location:[facility] Appointment Type:[facility]* Diagnosis Fall in home, initial encounter- Primary documented in this encounter [facility] Work Phone: [facility] Narrative - Reported* Type Description Date Medical History high cholesterol Medical History Blood clots Surgical History hand and leg surgery 1974 Surgical History jaw wiring Surgical History elbow surgery Surgical History appendectomy Surgical History wrist surgery right hand Hospitalization History see above [facility] Other Hospital Discharge instructions No data available for this section [facility] No data available for this section [facility] Summary Purpose Family History No Family [...] section and content) DATE CREATED AUTHOR 05/27/2018 [facility] DATE CREATED AUTHOR AUTHOR'S ORGANIZ ATION 02/25/2019 [facility] DATE CREATED AUTHOR AUTHOR'S ORGANIZ ATION 11/01/2022 [facility] DATE CREATED AUTHOR AUTHOR'S ORGANIZ ATION 03/15/2023 [facility] DATE CREATED AUTHOR AUTHOR'S ORGANIZ ATION 04/09/2023 [facility] DATE CREATED AUTHOR AUTHOR'S ORGANIZ ATION 11/05/2023 Gerardo Soni [facility] DATE CREATED AUTHOR AUTHOR'S ORGANIZ ATION 12/22/2023 [facility] EPIC Care Team [...] BE BASED ON THE PRIMARY CLINICAL RECORDS. [facility] [employer] [facility]. provides no warranty or guarantee of the accuracy or completeness of information in this document.
== END 2024-02-25 10:43 | disposition home or self-care (01) ==
LOC: VC 10:42
PROVIDERS: PCP Radiology Diagnostic Radiology; Visit Provider Radiology Diagnostic Radiology
DX: I83.813 Varicose veins of bilateral lower extremities with pain (principal)
CPT/HCPCS: 36466

== ENCOUNTER 2024-03-02 14:07 | Outpatient (OUT) | payer OTHER, MEDICAID, SELFPAY ==
--- NOTE | 2024-03-02 14:16 | VEIN_ITS ---
Patient Name: YOUSIF NAJERA MR#: [id number] : 1945 Exam Date: 03/02/2024 Ordering Doctor: DR THERESA Cross [facility] ADIOLOGY REPORT PROCEDURE: VC EXT VENOUS RT LMTD COMPARISON: VC EXT VENOUS RT LMTD, 02/17/2024. INDICATIONS: I80.01 Phlebitis of superficial veins of rt lower extremity TECHNIQUE: Lower extremity rodriges scale and Duplex Doppler evaluation of the deep venous system from the inguinal ligament through the calf veins. FINDINGS: REGION: Right lower extremity. THROMBI: Negative for DVT. Varithena induced thrombus visualized at prox/ant calf and dist/ant calf. COMPRESSIBILITY: Non-compressible segments corresponding to thrombus FLOW: Areas of no flow corresponding to thrombus OTHER: Multiple patent varicose veins remain the largest is at mid/med thigh 6.1mm with 0.9s reflux. CONCLUSION: 1. 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 Dictated by: Koko Tanner M.D. on 03/02/2024 at 14:51 Approved by: Koko Tanner M.D. on 03/02/2024 at 14:51
--- NOTE | 2024-03-02 14:16 | VEIN_ITS ---
Patient Name: YOUSIF NAJERA MR#: [id number] : 1945 Exam Date: 03/02/2024 Ordering Doctor: DR THERESA DE DIOS M.D. RADIOLOGY REPORT PROCEDURE: [facility] EST LMTD VEIN CENTER - OFFICE VISIT FOLLOW [facility] PROGRESS NOTES: The patient reports improvement in leg symptoms. There has been interval reduction in varicosities. The patient has followed our recommendations to walk 20-30 minutes once or twice per day since the procedure. Physical exam demonstrates decrease in varicosities of the leg. Persistent varicosities are identified along the legs bilaterally. Increasing pinkness and appearance of extensive wounds and chronic skin changes of lower right leg.. Review of the ultrasound performed the same day demonstrates occlusive thrombus extending throughout the treated vein(s), see separate report, consistent with a successful ablation. No thrombus extending into or beyond the saphenofemoral junction. The patient expressed a desire to proceed with treatment of remaining incompetent varicosities. The patient was informed that treatment was a process and would require several procedures/sessions. VEIN/[facility] EST LMTD IMPRESSION: 1. Successful ablation of the right leg treated branch saphenous vein(s). 2. Persistent bilateral lower extremity varicose veins and lower extremity symptoms. PLAN: 1. Microfoam chemical ablation of left leg incompetent branch saphenous varicosities. Nurse notes, history and physical were reviewed and confirmed, see attached forms. The nurse was present throughout the physical exam and consultation Dictated by: Koko Tanner M.D. on 03/02/2024 at 14:51 Approved by: Koko Tanner M.D. on 03/02/2024 at 14:53
--- OUTSIDE RECORDS SUMMARY | 2024-03-02 14:20 | XMS_ITS | CCD ---
Author Organization [facility] Care Team Providers Care Ginger Farmer Name Role Phone NEO ROCHA Unavailable Unavailable [...] DO Abbie R Primary Care Provider Shadia DIRECTOR OUTPATIENT SERVICES-C Perlita Cross Attending Provider Perlita Reno Attending Unavailable Perlita Reno Admitting Unavailable Gtz III, Abbie R Primary Care Unavailabl e DOLCE, DR COTE Attending Unavailable DOLCE, DR COTE Admitting Unavailable Dolce, Facundo Alfred Attending Unavailable Dolce, Facundo Alfred Referring Unavailable Dolce, Facundo Alfred Attending Unavailable Dolce, Fcaundo Alfred Attending Unavailable Dolce, Facundo Alfred Attending [...] Pocos, Theresa Montgomery Referring Unavailable Pocos, Theresa Montgomrey Attending Unavailable Pocos, Theresa Montgomery Admitting Unavailable [...] [IODINE] Drug Allergy 6 Unknown (qualifier value) [facility] Repository (20 sources) Penicillins; Translations: [PENICILLINS] Propensity to adverse reactions to drug (disorder) 6 Unknown (qualifier value) [facility] Repository (1 source) SHELLFISH CONTAINING PRODUCTS; Translations: [SHELLFISH CONTAINING PRODUCTS] Propensity to adverse reactions to drug (disorder) 7 AOF [facility] Repository (20 sources) Shellfish; Translations: [shellfish] Propensity to adverse reactions (disorder) Pharyngeal swelling (finding), Difficulty breathing (finding) [facility] Repository (5 sources) Contrast media; Translations: [Contrast Dye] Propensity to adverse reactions Dizziness (finding) [facility] (1 source) Penicillin Drug Allergy rash [employer] Other (1 source) Shellfish Drug allergy Unknown [employer] Other (1 source) Penicillins; Translations: [penicillins] Drug allergy Unknown (qualifier value) [facility] Comment on above: as a child Medications Current Medications Medication Drug Class(es) Dates Sig (Normalized) Sig (Original) acetaminophen 325 mg / HYDROcodone bitartrate 5 mg oral tablet (2 sources) Opioid Agonist Start: 10-28-2023 Mead 325 mg-5 mg oral tablet See Instructions, for pain, 40 tab(s), Refill(s) 0, 1 - 2 po q4-6h prn pain Dx: S52.031D Duration: 7 days, [facility]/pharmacy #[id number], 177, cm, 10/22/23 12:25:00 EST, Height/Length Dosing, 132.5, kg, 10/22/23 12:25:00 EST, Weight Dosing Start Date: 10/28/23 Status: Ordered Start: 10-17-2023 End: 10-20-2023 take 1 tablet by mouth every six hours for pain Mead 325 mg-5 mg oral tablet 1 tab(s), Oral, q6hr for pain for 3 day(s), 10 tab(s), Refill(s) 0, [facility], 177.8, cm, 10/17/23 21:21:00 [...] constipation, # 40 cap(s), Refills(s) 0, Pharmacy: [facility]/pharmacy #6173, 177, cm, 10/22/23 12:25:00 EST, Height/Length [...] Facility IntraOperative Documentson 1 01-04-2023 IntraOperative Documents [id number]#1.00TIFF [facility] Progress Note-Physicianon Progress Note-Physician Patient: YOUSIF AGUILAR Age: 77 years Sex: Male : 1945 Associated Diagnoses: None Author: MD Rudd Ahmad F Postoperative Information Postoperative disposition: Postoperative disposition: To PACU. Optimetrix number: Optimetrix number [id number]. Anesthetic utilized: General. Health Status Allergies: Allergic [...] meets criteria ( To home ). Normal [facility] Comment on above: Result Comment: Elec [...] constipation, # 40 cap(s), Refills(s) 0, Pharmacy: [facility]/pharmacy #[id number], 177, cm, 10/22/23 12:25:00 EST, Height/Length Dosing, 132.5, kg, 10/22/23 12:25:00 EST, Weight Dosing Mead 325 mg-5 mg oral tablet: See Instructions, for pain, 40 tab(s), Refill(s) 0, 1 - 2 po q4-6h prn pain Dx: S52.031D Duration: 7 days, [facility]/pharmacy #6173, 177, cm, 10/22/23 12:25:00 EST, Height/Length [...] Problems High blood pressure / SNOMED CT 6696026800 / Confirmed Hypercholesterolemia / ICD-9-CM 272.0 / Confirmed Lymphedema / SNOMED CT 33315749 / Confirmed 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 / SNOMED CT 960430489 / Confirmed History of colon polyps / SNOMED CT 6806642704 / Confirmed Colon polyp / SNOMED CT 836895036 / Confirmed Diverticulosis / SNOMED CT 0629556587 / Confirmed Hemorrhoids / SNOMED CT 920343851 / Confirmed Extreme obesity / SNOMED CT 09W18140-2MW3-50I7-L504-4 [id number] / Possible Resolved: DVT / SNOMED CT 791880532 Resolved: PE - Pulmonary embolism / SNOMED CT 9291482283 Resolved: Stasis dermatitis co-occurrent with venous ulcer of right lower extremity due to chronic peripheral venous hypertension / SNOMED CT 042442296071401 Resolved: Stasis dermatitis of left lower extremity due to peripheral venous hypertension / SNOMED CT 464044722067963 Resolved: Stasis dermatitis of right lower extremity due to peripheral venous hypertension / SNOMED CT 445118790079508 Resolved: Stasis dermatitis and venous ulcer of left lower extremity due to chronic peripheral venous hypertension / SNOMED CT 712914679342579 Histories Past Medical History: Active Hypercholesterolemia (272.0) Lymphedema (17945208) Resolved PE - Pulmonary embolism (6869025122): Onset on 12/01/2005 at 60 years. Resolved. DVT (791961698): Resolved. Stasis dermatitis co-occurrent with venous ulcer of right lower extremity due to chronic peripheral venous hypertension (501565360271220): Resolved. Stasis dermatitis of left lower extremity due to peripheral venous hypertension (771035556672025): Resolved. Stasis dermatitis of right lower extremity due to peripheral venous hypertension (351778614072205): Resolved. Stasis dermatitis and venous ulcer of left lower extremity due to chronic peripheral venous hypertension (709997308796350): Resolved. Family History: Hyperlipidemia Mother Heart disease Father Non Hodgkin's lymphoma Mother Procedure history: ORIF of Right Elbow (751127936) on 10/28/2023 at 77 Years. Colonoscopy (559921589) on 03/04/2022 at 76 Years. EVLT RLSV [...] fracture in 1966 at 21 Years. Appendectomy (941381231) in 1952 at 7 Years. bilateral wrist [...] visible). Respiratory (more content not included)... Normal [facility] Comment on above: Result Comment: Elec tronically Signed By: MD Kar, Jemima Bella\.br\Date and Time Signed: 11/01/23 18:14 EST Operative Reporton Operative Report SURGERY DATE: 2022 INSPECTOR MATERIALS AND PROCESSES: Samuel Gonsalez PA-C PREOPERATIVE DIAGNOSIS: Right olecranon fracture POSTOPERATIVE DIAGNOSIS: Right olecranon fracture OPERATION: Right olecranon open reduction internal fixation ANESTHESIA: General ANESTHESIOLOGIST: CINDY Faria ESTIMATED BLOOD LOSS: None SPECIMEN: None COMPLICATIONS: None IMPLANT: 0.062 K-wire x2 with 18 gauge dental wire for a mbtmqh-bt-bxgsk tension band construct HISTORY/OPERATIVE INDICATIONS: Yousif is [...] visualized. It is then fixed with a vlckbi-jn-palgw construct as described below. Samuel Gonsalez did [...] This is done in the standard fashion. Jyklwf-lg-wtjzm is then applied, tensioned accordingly, is cut [...] patient is subsequently extubated, transferred to the [facility] and taken to Post-Anesthesia Care Unit in stable condition. He will be discharged this day. Heath Orourke Dictated: 10/28/2023 [id number] Transcribed: 10/29/2023 cc:Abbie Gtz III, D.O. [facility] Comment on above: Result Comment: Elec tronically Signed By: Theresa Villalpando DO\.br\Date and Time Signed: 10/30/23 11:53 EST Consent for Anesthesiaon Consent for Anesthesia [id number]#1.00TIFF Normal [facility] Discharge Instructionson Discharge Instructions [id number]#1.00TIFF Normal [facility] Insurance Correspondence Off iceon 10-29-2023 Insurance Correspondence Office [id number]#1.00TIFF Normal [facility] IntraOperative Documentson 1 12-29-2022 IntraOperative Documents [id number]#1.00TIFF Normal [facility] Main OR Intraoperative Recor don 10-29-2023 Main OR Intraoperative Record IntraOp Document Type FT Summary Primary Physician: Theresa Villalpando DO Finalized Date/Time: 10/29/23 12:32:07 Pt. Name: DANIAYOUSIF D.O.B./Sex: 1945 Male Med Rec #: [id number] Physician: Theresa Villalpando DO Financial #: [id number] Pt. Type: A Room/Bed: [place] [address] Admit/Disch: 10/28/23 10:36:00 - 10/28/23 17:40:00 Institution: [...] Alfred Role Performed Anesthesiologist Surgeon - Primary PA/DIRECTOR OUTPATIENT SERVICES Assigner Time In 10/28/23 14:07:00 10/28/23 14:07:00 10/28/23 [...] C Roll RT, Daniel P Role Performed Powertrain Calibration Engineer - Primary Scrub - Primary Clinical Documentation Nurse Time In 10/28/23 14:07:00 10/28/23 14:07:00 10/28/23 [...] and tissue Entry 1 Skin Integrity Intact, Sammy Martinez, Warm, and Skin Abnormality No Dry Outcomes [...] symptoms o (more content not included)... Normal [facility] Preoperative Documentson Preoperative Documents [id number]#1.00TIFF Normal [facility] XR Elbow 2 Views Righton XR [...] mGy = 1.66 DAP = na Normal [facility] Consent for Treatmenton 10-02 Consent for Treatment [id number]#1.00TIFF Normal [facility] Discharge Instructionson Discharge Instructions DANIA YOUSIF [...] physician. This Is Your Medications List acetaminophen-hydrocodone (Mead 325 mg-5 mg oral tablet) atorvastatin (atorvastatin [...] Appointment has already been scheduled Where: [address] [place] [address]- [place] (1) Medications What How Much When Instructions Next Dose Unchanged acetaminophen-hydrocodone (Mead 325 mg-5 mg oral tablet) See instructions 1 - 2 po q4-6h prn pain Dx: S52.031D Duration: 7 days Pickup at [facility]/pharmacy #6173 Unchanged atorvastatin (atorvastatin 20 mg Tab) 1 Tablets By Mouth Once a day (at bedtime) Unchanged docusate (Colace 100 mg Cap) 1 Capsules By Mouth 2 times a day as needed for for constipation Pickup at [facility]/pharmacy #6173 Unchanged hydrochlorothiazide (hydrochlorothiazide 25 mg oral tablet) 1 Tablets By Mouth Every day Unchanged rivaroxaban (Xarelto 2.5 mg oral tablet) 2 Tablets By Mouth Every day Pharmacy Information [facility]/pharmacy #6173: [address] [place], [place] [id number] [phone] Test Results No qualifying data available. Allergies [...] WIRE 10/28/2023 K-WIRE (2), 10/28/2023 Education Materials [place], [place] [facility] OUTPATIENT SURGERY Home Care [...] pain a (more content not included)... Normal [facility] Comment on above: Result Comment: Elec tronically Signed By: Flavio PHELPS, Marilou Aguero\.br\Date and Time Signed: 10/28/23 16:53 EST H&P Updateon 10-28-2023 H&P Update [id number]#1.00TIF F Normal [facility] Main OR PACU I Recordon 10-02 Main OR PACU I Record PACU Phase I Document Type FT Summary Primary Physician: Theresa Villalpando DO Finalized Date/Time: 10/28/23 16:14:58 Pt. Name: YOUSIF AGUILAR D.O.B./Sex: 1945 Male Med Rec #: [id number] Physician: Theresa Villalpando DO Financial #: [id number] Pt. Type: A Room/Bed: [place] [address] Admit/Disch: 10/28/23 10:36:00 - Institution: Case Times [...] By: Elizabeth Rowe RN 10/28/23 16:14 Normal [facility] Main OR Preoperative Recordo n 10-28-2023 Main OR Preoperative Record PreOp Document Type FT Summary Primary Physician: Theresa Villalpando DO Finalized Date/Time: 10/28/23 14:12:47 Pt. Name: YOUSIF AGUILAR Jimbo Gaines/Sex: 1945 Male Med Rec #: [id number] Physician: Theresa Villalpando DO Financial #: [id number] Pt. Type: A Room/Bed: [facility] Admit/Disch: 10/28/23 10:36:00 - Institution: Case [...] Signed By: Idris Brooks 10/28/23 14:12 Normal [facility] Monitor Recordon 10-28-2023 Monitor Record [id number]#1.00TIFF Normal [facility] Patient Education - Texton 1 12-28-2022 Patient Education - Text [place], [place] [facility] OUTPATIENT SURGERY Home Care [...] drive. __ Theresa Villalpando DO [facility] [address] [place] [address] Reviewed: 03-[address] [facility] Progress Note-Physicianon Progress Note-Physician Patient: YOUSIF AGUILAR Age: 77 years Sex: Male : 1945 Associated Diagnoses: None Author: Theresa Villalpando DO Postoperative Information Procedure: R Olecranon ORIF Preoperative Diagnosis: R olecrjerome fx. Postoperative Diagnosis: same. Performed by: camila. Assigner: Wallace. Specimens Removed: none. Prosthesis: tension band. . Estimated Blood Loss: 0 ml. Complications: None. Anesthesia type: General. Normal [facility] Comment on above: Result Comment: Elec tronically Signed By: Theresa Villalpando DO\Date and Time Signed: 10/28/23 15:37 EST CHEMISTRYOrdered By: SYSTEM SYSTEM on 10-27-2023 Potassium [Moles/Vol] 3.6 mmol/L Normal 3.5 - 5.3 mmol/L [facility] Remisol Consent for Procedure/Surger yon 10-27-2023 Consent for Procedure/Surgery [id number]#1.00TIFF Normal [facility] Consent for Treatmenton 10-02 Consent for Treatment [id number]#1.00TIFF Normal [facility] Physician Orderon 10-27-2023 Physician Order [id number]#1.00TIFF Normal [facility] Potassiumon 10-27-2023 Potassium [Moles/Vol] 3.6 mmol/L Normal 3.5-5.3 [facility] Comment on above: Performed By: #### 2 350792 #### [facility] [address] [place] [address] XR Chest 2 Viewson 3 XR Chest [...] mGy = na DAP = na Normal [facility] Auto Diffon 10-22-2023 Basophils/100 WBC (Bld) 0.3 % Normal 0.0-2.0 [facility] Comment on above: Order Comment: Order Added by Discern Expert. Performed By: #### 2 881941, 4060299, 1248092, 41568424 ####[facility] [address] [place] [address] Basophils/Leukocytes Auto (Bld) [Pure # fraction] 0.0 E9/L Normal 0.0-0.2 [facility] Comment on above: Order Comment: Order Added by Discern Expert. Performed By: #### 2 361010, 8343042, 3489845, 47867809 ####[place] [address] [place] [address] Eosinophils/100 WBC (Bld) 3.6 % Normal 0.0-8.0 [facility] Comment on above: Order Comment: Order Added by Discern Expert. Performed By: #### 2 938856, 2362519, 6351981, 51913677 ####[facility] [address] [place] [address] Eosinophils/Leukocyt es Auto (Bld) [Pure # fraction] 0.3 E9/L Normal 0.0-0.5 [facility] Comment on above: Order Comment: Order Added by Discern Expert. Performed By: #### 2 554217, 4508209, 0721154, 28793921 ####[facility] [address] [place] [address] Lymphocytes/100 WBC (Bld) 15.5 % Normal 14.0-50.0 [facility] Comment on above: Order Comment: Order Added by Hilda Expert. Performed By: #### 2 841575, 2736814, 8747369, 34586667 ####[facility] [address] [place] [address] Lymphocytes/Leukocyt es Auto (Bld) [Pure # fraction] 1.1 E9/L Normal 1.0-4.0 [facility] Comment on above: Order Comment: Order Added by Discern Expert. Performed By: #### 2 820586, 3626076, 8819172, 79866753 ####[address] [place] [address] Monocytes/100 WBC (Bld) 9.5 % Normal 4.0-14.0 [facility] Comment on above: Order Comment: Order Added by Discern Expert. Performed By: #### 2 335435, 2842794, 1078023, 15147585 ####[address] [place] [address] Monocytes/Leukocytes Auto (Bld) [Pure # fraction] 0.7 E9/L Normal 0.2-1.0 [facility] Comment on above: Order Comment: Order Added by Discern Expert. Performed By: #### 2 355654, 6394700, 9588382, 28454003 ####[address] [address] Neutrophils/100 WBC (Bld) 71.1 % Normal 36.0-75.0 [facility] Comment on above: Order Comment: Order Added by Discern Expert. Performed By: #### 2 459003, 0940265, 6223768, 94266689 ####[address] [place] [address] Neutrophils/Leukocyt es Auto (Bld) [Pure # fraction] 5.2 E9/L Normal 2.0-7.5 [facility] Comment on above: Order Comment: Order Added by Discern Expert. Performed By: #### 2 597203, 7076132, 7156910, 10712225 ####[address] [place] [address] BMPon 10-22-2023 Anion gap [Moles/Vol] 13 mmol/L Normal 6-16 [facility] Comment on above: Performed By: #### 2 801262, 7544380, 6018292, 25185111 ####[address] [place] [address] Calcium [Mass/Vol] 8.4 mg/dL Low 8.9-11.1 [facility] Comment on above: Performed By: #### 2 965059, 5052482, 0950662, 03321508 ####[facility] [address] [place] [address] Chloride [Moles/Vol] 97 mmol/L Low 101-111 [facility] Comment on above: Performed By: #### 2 031906, 0415948, 8259169, 02730035 ####[facility] [address] [place] [address] CO2 [Moles/Vol] 31 mmol/L Normal 21-31 [facility] Comment on above: Performed By: #### 2 453850, 4074602, 6947905, 89206550 ####[facility] [address] [place] [place] [address] Creatinine [Mass/Vol] 0.9 mg/dL Normal 0.5-1.3 [facility] Comment on above: Performed By: #### 2 227584, 9991282, 5057194, 79284603 ####[facility] [address] [place] [address] Glucose [Mass/Vol] 105 mg/dL Normal 55-199 [facility] Comment on above: Result Comment: If t his glucose result represents a fasting glucose, interpretation should refer to the following reference range: 55-99 mg/dL Performed By: #### 2 138260, 4464676, 1444966, 93299806 ####[facility] [address] [place] [place] [address] Potassium [Moles/Vol] 2.8 mmol/L Abnormal 3.5-5.3 [facility] Comment on above: Result Comment: Crit ical Result verified by repeat analysis\Critical Result S_K:2.8 Called to [facility] by MITALI DUBON And Read Back For Confirmation at: 10/22/2023 13:36:24 Performed By: #### 2 733671, 2861596, 9288243, [id number] ####[facility] [address] [place] [address] Sodium [Moles/Vol] 138 mmol/L Normal 135-145 [facility] Comment on above: Performed By: #### 2 136507, 3886587, 1668078, 37908688 ####[facility] [address] [place] [address] Urea nitrogen [Mass/Vol] 17 mg/dL Normal 5-21 [facility] Comment on above: Performed By: #### 2 933329, 3915123, 1426669, 85314404 ####[facility] [address] [place] [address] Urea nitrogen/Creatinine [Mass ratio] 19 No Units Normal 10-20 [facility] Comment on above: Performed By: #### 2 537962, 4409780, 7805182, 17806387 ####[facility] [address] [place] [address] CBC w/ Auto Diffon 3 Erythrocyte distribution width (RBC) [Ratio] 14.1 % Normal 10.9-14.2 [facility] Comment on above: Performed By: #### 2 142853, 0165761, 3553186, 42302007 ####[facility] [address] [place] [address] Hematocrit (Bld) [Volume fraction] 32.6 % Low 37.7-49.0 [facility] Comment on above: Performed By: #### 2 953126, 2511499, 6822617, 95156868 ####[facility] [address] [place] [address] Hemoglobin (Bld) [Mass/Vol] 10.9 g/dL Low 13.5-17.5 [facility] Comment on above: Performed By: #### 2 308066, 9772430, 2755985, 98481284 ####[address] [place] [address] MCH (RBC) [Entitic mass] 28.9 pg Normal 27.0-34.0 [facility] Comment on above: Performed By: #### 2 582947, 9704925, 7574840, 66732724 ####[address] [address] MCHC (RBC) [Mass/Vol] 33.5 g/dL Normal 31.4-36.0 [facility] Comment on above: Performed By: #### 2 598986, 7152966, 0348115, 85576884 ####[address] [address] MCV (RBC) [Entitic vol] 86.3 fL Normal 80.0-100.0 [facility] Comment on above: Performed By: #### 2 905650, 2583993, 0913407, 55393568 ####[place] [id number] Platelet mean volume (Bld) [Entitic vol] 8.8 fL Normal 6.4-10.8 [facility] Comment on above: Performed By: #### 2 056261, 2335034, 5771450, 50722713 ####[address] [address] Platelets (Bld) [#/Vol] 245.0 E9/L Normal 150.0-500.0 [facility] Comment on above: Performed By: #### 2 414946, 3324231, 5174115, 55378156 ####[address] [address] RBC (Bld) [#/Vol] 3.8 E12/L Low 4.3-5.9 [facility] Comment on above: Performed By: #### 2 025200, 4206078, 0295755, 99558225 ####[address] [address] WBC corrected for nucl RBC Auto (Bld) [#/Vol] 7.4 E9/L Normal 4.0-11.0 [facility] Comment on above: Performed By: #### 2 583277, 4577954, 7571837, 49797925 ####[facility] [address] [place] [address] CHEMISTRYOrdered By: SYSTEM SYSTEM on 10-22-2023 Anion [...] 89 mL/min/1.73 m2 Normal >=59mL/min/ 1.73 m2 [facility] Chem S Comment on above: Interpretive Data: [...] S_K:2.8 Called to [facility] by MITALI DUBON And Read Back For Confirmation at: 10/22/2023 13:36:24 Sodium [Moles/Vol] 138 mmol/L Normal 135 - 145 mmol/L FT Remisol Urea nitrogen [Mass/Vol] 17 mg/dL Normal 5 - 21 mg/dL FT Remisol Urea nitrogen/Creatinine [Mass ratio] 19 mg/mg Normal 10 - 20 [facility] Remisol Consent for Treatmenton 10-02 Consent for Treatment [id number]#1.00TIFF Normal [facility] HEMATOLOGYOrdered By: SYSTEM SYSTEM on 10-22-2023 [...] [Vol rate/Area] 89 mL/min/1.73 m2 Normal >=59 [facility] Comment on above: Order Comment: Order added by Discern Expert. Result Comment: Fur Floor Worker mercy kidney disease could be indicated at eGFR's of less than 60 mL/min/1.73m2. Kidney failure is indicated at less than 15 mL/min/1.73m2. Performed By: #### 2 440521, 5793866, 6388635, 82339871 ####[facility] [address] [place] [address] Consent for Treatmenton 10-01 Consent for Treatment [id number]#1.00TIFF Normal [facility] Discharge Instructionson Discharge Instructions [id number]#1.00TIFF Normal [facility] ED Clinical Summaryon 2022 ED Clinical Summary (Inserted Image. Clarissa ble to display) [address] [address] ED Clinical Summary Person Information Name: YOUSIF AGUILAR Olga Lidia/[facility] Age: 77 Years : 1945 Sex: Male Language: Luxembourgish PCP: Abbie Gtz III, DO Marital Status: [...] 23:43:34 10/17/2023 23:43:34 10/17/2023 23:43:34 ADDRESS: [address] [place] [id number] PHYS DOC NOTES: MEDICAL INFORMATION: Prescriptions Given: New Medications [facility], [address] [facility] [place] [id number], [phone] acetaminophen-hydrocodone (Mead 325 mg-5 mg oral tablet) 1 Tablets [...] up: With: Address: When: Theresa Villalpando [address] [place] [address] Business (1) In 3 days 10/20/2023 Comments: You can use the pain medication every 6 hours as needed for pain. Please follow-up with your primary care doctor addition to orthopedics for further evaluation management. Please return to the ED for any new or worsening symptoms. With: Address: When: Abbie Gtz [address] [facility], [address] [place] [address] Business (1) In 3 days DIAGNOSIS: Olecranon fracture Normal [facility] ED Note-Physicianon 10-18-20 ED Note-Physician Basic [...] and Complexity of Problems Differential Diagnosis: [] [facility] Data External documents reviewed: [] My EKG [...] for 3 day(s), 10 tab(s), Refill(s) 0, [facility], 177.8, cm, 10/17/23 21:21:00 EST, Height/Length Dosing, 133.1, kg, 10/17/23 21:21:00 EST, Weight Dosing Sling Apply XR Elbow 3+ Views Right Disposition Plan Discharge Prescription List Prescriptions Mead 325 mg-5 mg oral tablet, 1 tab(s), Oral, q6hr, PRN Follow-up With When Contact Information Theresa Villalpando In 3 days 10/20/2023 EST [address] [place] [address]- Business (1) Additional Instructions: You can use the pain medication every 6 hours as needed for pain. Please follow-up with your primary care doctor addition to orthopedics for further evaluation management. Please return to the ED for any new or worsening symptoms. Abbie Gtz In 3 days [address] [facility], [place] [address]- Business (1) Additional Instructions: Patient Education Olecranon [...] ex (more content not included)... Normal [facility] Comment on above: Result Comment: Elec tronically [...] these instructions at home: Medicines ? Take ikzt-xzf-nfcrobl and prescription medicines only as told by your health care provider. ? Ask your health care provider if the medicine prescribed to you: ? Requires you to avoid driving or using heavy machinery. ? Can cause constipation. You may need to take actions to prevent or treat constipation, such as: ? Drink enough fluid to keep your urine pale yellow. ? Take rhug-vjj-vbvrylq or prescription medicines. ? Eat foods that [...] is import (more content not included)... Normal [facility] ED Patient Summaryon 023 ED Patient Summary (Inserted Image. Clarissa ble to display) [place] [id number] Patient Discharge Instructions Person Information Name: YOUSIF AGUILAR Age: 77 Years Arrival Date: 10/17/2023 21:13:58 Discharge Diagnosis: Olecranon fracture Primary Care Physician: Abbie Gtz III, DO Provider Information Primary Provider: Bryce Funk DO Advanced Broach Grinder:None The exam and treatment you received in the Emergency Department were for an urgent problem and are not intended as complete care. It is important that you follow up with a doctor, nurse practitioner, or physician?s assistant sales manager for ongoing care. If your symptoms [...] Instructions: With: Address: When: Theresa Villalpando [address] [place] [address] Business (1) In 3 days 10/20/2023 Comments: You can use the pain medication every 6 hours as needed for pain. Please follow-up with your primary care doctor addition to orthopedics for further evaluation management. Please return to the ED for any new or worsening symptoms. With: Address: When: Abbie Gtz [address] [facility], [facility] [place] [address] Business (1) In 3 days In the event that this physician does not participate in your insurance network, please consult with your insurance company to find a nearby participating provider. Patient Education Materials: William Fracture A MESSAGE TO ALL PATIENTS REGARDING OPIOIDS PRESCRIPTION OPIOIDS: WHAT YOU NEED TO KNOW Prescription opioids can be used to help relieve lbiqitng-ik-zrhptg pain and are often prescribed following a [...] following g (more content not included)... Normal [facility] ED Traumaon 10-18-2023 ED Trauma [id number] 82151 [id number]#1.00TIFF Normal [facility] XR Elbow 3+ Views Righton XR [...] in mGy = na DAP = na [facility] Pre-Arrival Noteon 3 Pre-Arrival Note Pre-Arrival Summary Name: , ncems Current Date: 10/17/2023 21:14:37 EST Gender: Male Date of : Age: 77 Pre-Arrival Type: EMS ETA: 10/17/2023 21:06:00 EST Primary Care Physician: Presenting Problem: T2-fall, elbow pain Pre-Arrival User: Nicholas Rosario RN Referring Source: Location: [place] Completion Date/Time: 10/17/2023 21:06:00 [facility] Emergency Department Pre-Hospital Report Form ____ Vital Signs: Pre-Hospital Report: slipped on kitchen floor falling to R elbow, swelling noted. denies hitting head or LOC. on xarelto. no other pain/complaints Treatment in Route: none Response to Treatment: Misc. Issues: Normal [facility] Nursing Note - Woundon 08-12 Nursing Note - Wound [id number] [id number]#1.00CD:[address] [facility] Consent for Procedure/Surger yon 08-05-2023 Consent for Procedure/Surgery [id number]#1.00CD:[address] [facility] Consent for Treatmenton Consent for Treatment [id number]#1.00CD:[address] [facility] Physician Orderon 08-05-2023 Physician Order [id number]#1.00CD:[address] [facility] Nursing Note - Woundon 07-31 Nursing Note - Wound [id number] 520980 [id number]#1.00CD:[address] [facility] Physician Orderon 07-31-2023 Physician Order [id number]#1.00CD:[address] [facility] Consent for Treatmenton 07-02 Consent for Treatment [id number]#1.00CD:[address] [facility] Multi-Wound Charton 07-29-20 Multi-Wound Chart [id number] 50417 [id number]#1.00CD:[address] [facility] Nursing Assessment - Woundon 07-29-2023 Nursing Assessment - Wound [id number]#1.00CD:[address] [facility] Procedure - Woundon 07-29-20 Procedure - Wound 170.71.121.117.03265 66313 [id number]#1.00CD:[address] [facility] Consent for Treatmenton 07-02 Consent for Treatment [id number]#1.00CD:[address] [facility] Multi-Wound Charton 07-22-20 Multi-Wound Chart [id number] 79029 [id number]#1.00CD:[address] [facility] Nursing Assessment - Woundon 07-22-2023 Nursing Assessment - Wound [id number]#1.00CD:[address] [facility] Nursing Note - Woundon 07-22 Nursing Note - Wound 170.71.989.482.3617 743564 [id number]#1.00CD:[address] [facility] Physician Orderon 07-22-2023 Physician Order [id number]#1.00CD:[address] [facility] Procedure - Woundon 07-22-20 Procedure - Wound 170.71.121.117.31373 56081 [id number]#1.00CD:[address] [facility] Progress Note - Woundon 07-02 Progress Note - Wound [id number]#1.00CD:[address] [facility] Consent for Treatmenton 07-01 Consent for Treatment [id number]#1.00CD:[address] [facility] Physician Orderon 07-15-2023 Physician Order [id number]#1.00CD:[address] [facility] Multi-Wound Charton 07-14-20 Multi-Wound Chart [id number] [id number]#1.00CD:[address] [facility] Nursing Assessment - Woundon 07-14-2023 Nursing Assessment - Wound [id number]#1.00CD:[address] [facility] Nursing Note - Woundon 07-14 Nursing Note - Wound 170.71.443.180.2979 029200 [id number]#1.00CD:[address] [facility] Consent for Procedure/Surger yon 07-08-2023 Consent for Procedure/Surgery [id number]#1.00CD:[address] [facility] Consent for Procedure/Surgery [id number]#1.00CD:[address] [facility] Consent for Treatmenton Consent for Treatment [id number]#1.00CD:[address] [facility] Multi-Wound Charton 07-08-20 Multi-Wound Chart 170.71.121.117.63011 [id number] [id number]#1.00CD:[address] [facility] Nursing Assessment - Woundon 07-08-2023 Nursing Assessment - Wound [id number]#1.00CD:[address] [facility] Nursing Note - Woundon 07-08 Nursing Note - Wound 170.71.589.189.8178 [id number] [id number]#1.00CD:[address] [facility] Physician Orderon 07-08-2023 Physician Order [id number]#1.00CD:[address] [facility] Procedure - Woundon 07-08-20 Procedure - Wound 170.71.121.117.50327 [id number] [id number]#1.00CD:[address] [facility] Progress Note - Woundon Progress Note - Wound [id number]#1.00CD:[address] [facility] Multi-Wound Charton 07-01-20 Multi-Wound Chart 170.71.121.117.74886 [id number] [id number]#1.00CD:[address] [facility] Nursing Note - Woundon 07-01 Nursing Note - Wound 170.71.064.012.6365 [id number] [id number]#1.00CD:[address] [facility] Consent for Treatmenton 06-02 Consent for Treatment [id number]#1.00CD:[address] [facility] Insurance Correspondenceon 0 06-30-2023 Insurance Correspondence [id number]#1.00CD:[address] [facility] Physician Orderon 06-30-2023 Physician Order [id number]#1.00CD:[address] [facility] Procedure - Woundon 06-30-20 Procedure - Wound 170.71.121.117.01501 [id number] [id number]#1.00CD:[address] [facility] Consent for Treatmenton 06-01 Consent for Treatment [id number]#1.00CD:[address] [facility] Multi-Wound Charton 06-24-20 Multi-Wound Chart 170.71.121.117.81561 [id number] [id number]#1.00CD:[address] [facility] Nursing Assessment - Woundon 06-24-2023 Nursing Assessment - Wound [id number]#1.00CD:[address] [facility] Nursing Note - Woundon 06-24 Nursing Note - Wound 170.71.759.985.4686 [id number] [id number]#1.00CD:[address] [facility] Physician Orderon 06-24-2023 Physician Order [id number]#1.00CD:[address] [facility] Procedure - Woundon 06-24-20 Procedure - Wound 170.71.121.117.63227 [id number] [id number]#1.00CD:[address] [facility] Progress Note - Woundon 06-01 Progress Note - Wound [id number]#1.00CD:[address] [facility] Consent for Treatmenton 05-31 Consent for Treatment [id number]#1.00CD:[address] [facility] Multi-Wound Charton 06-17-20 Multi-Wound Chart 170.71.121.117.82580 [id number] [id number]#1.00CD:[address] [facility] Nursing Assessment - Woundon 06-17-2023 Nursing Assessment - Wound [id number] [id number]#1.00CD:[address] [facility] Nursing Note - Woundon 06-17 Nursing Note - Wound 170.71.439.996.2976 468189 [id number]#1.00CD:[address] [facility] Physician Orderon 06-17-2023 Physician Order [id number]#1.00CD:[address] [facility] Procedure - Woundon 06-17-20 Procedure - Wound 170.71.121.117.29835 69867 [id number]#1.00CD:[address] [facility] Progress Note - Woundon 05-31 Progress Note - Wound [id number]#1.00CD:[address] [facility] Consent for Procedure/Surger yon 06-11-2023 Consent for Procedure/Surgery [id number]#1.00CD:[address] [facility] Correspondence - Woundon Correspondence - Wound [id number]#1.00CD:[address] [facility] Nursing Note - Woundon 06-11 Nursing Note - Wound 170.71.820.087.4204 [id number] [id number]#1.00CD:[address] [facility] Physician Orderon 06-11-2023 Physician Order [id number]#1.00CD:[address] [facility] Procedure - Woundon 06-11-20 Procedure - Wound 170.71.121.117.50775 [id number] [id number]#1.00CD:[address] [facility] Progress Note - Woundon 05-31 Progress Note - Wound [id number]#1.00CD:[address] [facility] Consent for Treatmenton 05-31 Consent for Treatment [id number]#1.00CD:[address] [facility] Multi-Wound Charton 06-10-20 Multi-Wound Chart 170.71.121.117.14848 52365 [id number]#1.00CD:[address] [facility] Nursing Assessment - Woundon 06-10-2023 Nursing Assessment - Wound [id number]#1.00CD:[address] [facility] Nursing Note - Woundon 06-09 Nursing Note - Wound 170.71.114.283.8572 [id number]#1.00CD:[address] [facility] Physician Orderon 06-09-2023 Physician Order [id number]#1.00CD:[address] [facility] Procedure - Woundon 06-09-20 Procedure - Wound 170.71.121.117.83493 [id number] [id number]#1.00CD:[address] [facility] Progress Note - Woundon 05-31 Progress Note - Wound [id number]#1.00CD:[address] [facility] Physician Orderon 06-06-2023 Physician Order [id number]#1.00CD:[address] [facility] Procedure - Woundon 06-06-20 Procedure - Wound 170.71.121.117.27995 95747 [id number]#1.00CD:[address] [facility] Multi-Wound Charton 06-05-20 Multi-Wound Chart 170.71.121.117.20910 [id number] [id number]#1.00CD:[address] [facility] Nursing Note - Woundon 06-05 Nursing Note - Wound [id number] 084528 [id number]#1.00CD:[address] [facility] Procedure - Woundon 05-28-20 Procedure - Wound 170.71.121.117.65289 25312 [id number]#1.00CD:[address] [facility] Consent for Treatmenton 05-02 Consent for Treatment [id number]#1.00CD:[address] [facility] Multi-Wound Charton 05-27-20 Multi-Wound Chart 170.71.121.117.63807 68580 [id number]#1.00CD:[address] [facility] Nursing Note - Woundon 05-27 Nursing Note - Wound 170.71.649.001.8283 [id number] [id number]#1.00CD:[address] [facility] Physician Orderon 05-27-2023 Physician Order [id number]#1.00CD:[address] [facility] Multi-Wound Charton 05-21-20 Multi-Wound Chart 170.71.121.117.64069 76995 [id number]#1.00CD:[address] [facility] Nursing Note - Woundon 05-21 Nursing Note - Wound 170.71.246.504.5548 [id number] [id number]#1.00CD:[address] [facility] Physician Orderon 05-21-2023 Physician Order [id number]#1.00CD:[address] [facility] Prescriptions/Work Noteson 0 05-21-2023 Prescriptions/Work Notes [id number]#1.00CD:[address] [facility] Procedure - Woundon 05-21-20 Procedure - Wound 170.71.121.117.94344 [id number] [id number]#1.00CD:[address] [facility] Consent for Treatmenton 05-02 Consent for Treatment [id number]#1.00CD:[address] [facility] Multi-Wound Charton 05-20-20 Multi-Wound Chart 170.71.121.117.68065 [id number] [id number]#1.00CD:[address] [facility] Nursing Assessment - Woundon 05-20-2023 Nursing Assessment - Wound [id number]#1.00CD:[address] [facility] Consent for Treatmenton 05-01 Consent for Treatment [id number]#1.00CD:[address] [facility] Consent for Procedure/Surger yon 05-06-2023 Consent for Procedure/Surgery [id number]#1.00CD:[address] [facility] Consent for Treatmenton Consent for Treatment [id number]#1.00CD:[address] [facility] Multi-Wound Charton 05-06-20 Multi-Wound Chart 170.71.121.117.07173 09536 [id number]#1.00CD:[address] [facility] Nursing Assessment - Woundon 05-06-2023 Nursing Assessment - Wound 170.71.121.117.5817202102 [id number]#1.00CD:[address] [facility] Nursing Note - Woundon 05-06 Nursing Note - Wound 170.71.157.336.1927 120117 [id number]#1.00CD:[address] [facility] Physician Orderon 05-06-2023 Physician Order [id number]#1.00CD:[address] [facility] Procedure - Woundon 05-06-20 Procedure - Wound 170.71.121.117.79084 89446 [id number]#1.00CD:[address] [facility] Progress Note - Woundon Progress Note - Wound [id number]#1.00CD:[address] [facility] Correspondence - Woundon Correspondence - Wound [id number]#1.00CD:[address] [facility] Consent for Treatmenton 04-01 Consent for Treatment [id number]#1.00CD:[address] [facility] Multi-Wound Charton 04-22-20 Multi-Wound Chart 170.71.121.117.07971 85030 [id number]#1.00CD:[address] [facility] Nursing Assessment - Woundon 04-22-2023 Nursing Assessment - Wound [id number]#1.00CD:[address] [facility] Nursing Note - Woundon 04-22 Nursing Note - Wound 170.71.088.563.6187 463329 [id number]#1.00CD:[address] [facility] Physician Orderon 04-22-2023 Physician Order [id number]#1.00CD:[address] [facility] Procedure - Woundon 04-22-20 Procedure - Wound 170.71.121.117.58127 [id number] [id number]#1.00CD:[address] [facility] Progress Note - Woundon 04-01 Progress Note - Wound [id number]#1.00CD:[address] [facility] Correspondence - Woundon Correspondence - Wound [id number]#1.00CD:[address] [facility] Consent for Treatmenton 03-31 Consent for Treatment [id number]#1.00CD:[address] [facility] Correspondence - Woundon Correspondence - Wound [id number]#1.00CD:[address] [facility] Multi-Wound Charton 04-15-20 Multi-Wound Chart 170.71.121.117.66000 [id number] [id number]#1.00CD:[address] [facility] Nursing Assessment - Woundon 04-15-2023 Nursing Assessment - Wound [id number]#1.00CD:[address] [facility] Nursing Note - Woundon 04-15 Nursing Note - Wound 170.71.150.423.5653 [id number] [id number]#1.00CD:[address] [facility] Physician Orderon 04-15-2023 Physician Order [id number]#1.00CD:[address] [facility] Procedure - Woundon 04-15-20 Procedure - Wound 170.71.121.117.64008 22664 [id number]#1.00CD:[address] [facility] Progress Note - Woundon 03-31 Progress Note - Wound [id number]#1.00CD:[address] [facility] Progress Note - Wound [id number]#1.00CD:[address] [facility] Correspondence - Woundon Correspondence - Wound [id number] [id number]#1.00CD:[address] [facility] Consent for Procedure/Surger yon 04-08-2023 Consent for Procedure/Surgery [id number] [id number]#1.00CD:[address] [facility] Consent for Treatmenton Consent for Treatment [id number]#1.00CD:[address] [facility] Multi-Wound Charton 04-08-20 Multi-Wound Chart 170.71.121.117.31000 73328 [id number]#1.00CD:[address] [facility] Nursing Assessment - Woundon 04-08-2023 Nursing Assessment - Wound 170.71.121.117.3364141087 [id number]#1.00CD:[address] [facility] Nursing Note - Woundon 04-08 Nursing Note - Wound 170.71.411.095.0926 [id number] [id number]#1.00CD:[address] [facility] Physician Orderon 04-08-2023 Physician Order [id number]#1.00CD:[address] [facility] Procedure - Woundon 04-08-20 Procedure - Wound 170.71.121.117.61808 [id number] [id number]#1.00CD:[address] [facility] Consent for Treatmenton Consent for Treatment [id number]#1.00CD:[address] [facility] Multi-Wound Charton 04-02-20 Multi-Wound Chart 170.71.121.117.05165 [id number] [id number]#1.00CD:[address] [facility] Nursing Note - Woundon 04-02 Nursing Note - Wound 170.71.358.454.3422 013482 [id number]#2.00CD:[address] [facility] Physician Orderon 04-02-2023 Physician Order [id number] [id number]#2.00CD:[address] [facility] Procedure - Woundon 04-02-20 Procedure - Wound 170.71.121.117.11061 93686 [id number]#1.00CD:[address] [facility] Nursing Assessment - Woundon 03-27-2023 Nursing Assessment - Wound 170.71.121.117.5081303686 [id number]#1.00CD:[address] [facility] Nursing Note - Woundon 03-27 Nursing Note - Wound 170.71.397.996.0319 [id number] [id number]#1.00CD:[address] [facility] Coding Summary.on 03-26-2023 Coding Summary. CD:[id number] Ww+PG hlYWQ+MV0KLEXcT83lbSAzcD6 oL8BTHAaHWrysCYVDLCmOYlUz vxWkZR6sxXDuKYIr IC8+AO7tXSKcEyyllWEpf7J3i IG2G96ith2bWUyxdRN2XXNoHr Fvuutvj6dnbZn4UPyfZlymUcR t DTQtyX43WUB3qE14Lp80fMFhk AJnr5xuzOd4YcYyROTnGVK0tK aoMWyvg8JiUQDyE20ggHXsa9D 6 ZGAleNbpqQGjYgUatNQ2xL8jP Locqsevw3wlrvzfHsa4to97jO Nfs1V7cYG1G0NeobW3ELJmkPF g UeqnsXNOtT0ckohqd2xyxiuaH vNkVDBvOPf1CVd0XMKdlQvpJo AjZH61AHN3TLLjkdBpV0YpDLZ s hTufEzZ3e8G3Zd5MH1UQMiyyX 1VNTUFSWTwvdGQ+ZL06rp90W4 PxVkqyZaq0IZCnYGK2xQG1lU2 n LARfAZmbp4A0jZR9G6ZjglZgw a3bk7psLHUyLZywI30qoEDan5 R6UBByfHK4ZCUabUnaJmOprY5 3 Oyc+PEOgfVxyw9ByHwbdg7oul 0uepWq0PczeNOFpexWbpTtfZL P4o7ShSf0aKWGgmVG0oOG3bQ7 i EyWsEhW5SSnvT105WvAaqMHmP iwcX98lL3NyjJC+LAXvRkn6IW LzbMizNO1wU0ViPXQqhhdmaPC m aFoqWL1ePSSxnavpSAQtjY2hQ BGeO4i6AvSwPjC8WBtxZ4VaIK XoydfuWp47vE9wWtUxYtT9TBy u G4NyubL9CXVdbGBbKChzUBU6I 66rl5B4ZDJyVBTuFJP3eTQ0wW 1hbGlnbjogbGVmdDsgdmVydGl j CAzoIVsiO889QVRlmAciZfExM GluZyBEYXRlOiAgMDQvMjYvMj AyMzwvdGQ+WJNhAUL4kCmhHXN n iCQfJQizGa2jbBdgqGxrXZ1rL EIolpixSHFdbI3qRAGqhMXvdQ pkXG2uFXXqlisqz764YpDqDGQ 0 DAHomZGuQ3EjjA6jOaSkQAHbK KYfS1PzwXVtGUhaE597IQpwYv V2RZHeopLsG7TaYFYtoVsfJcD 0 v7C0Qn8Ca6YsradlG6GtmLGaD gCzUzajNCn8V2NeClkzjZH+PC 92AXYgJP83FZa9XLM9kHtbNPi i SUIvC3XwgU6sKoNcEMPcJLCvK yc+PHRhYmxlIHdpZHRoPScxMD DiSkMfbQshOH3kUv5sBGEcGWJ v wLqvaILeYkXit5csVRSsXAshH E7ugQqxH6CneRX8LRJbu1o7Ce 99F85hO1LrsZI+EWEkkFW1gFI 0 cL0zQzSnBbQ5LSvgX656JrEmx XGvIxmxu6ybi8qkpOz2LiG2EE LbkrJowFgxOMN3d0GxRc05A36 s IHdpZHRoPSIxNSUiIHZhbGlnb l6atE0eZr8+TRAcqJN8aXL1vX 1xPrLbRqN2FDkjB926ShPidAW v Mqdxd3ewt6cfpZz1PoEaLTYpm tPjaXimIDK2r7IbMu41P5UvlM lho2IbMub0ox40rHLcs1M4eGY 9 Y0PsJKOkzvtuxEZhdObgQM3eK UKgmtkoKOXrcU4gCVFlX8h8Ga WwMqM9EKzqX9GkhoV2UJAbgTX g AQEmiCIPrF4agjktk9waytjuC rEuJIHuLTq3URj7XKVxhRadYa QmPND4OlI6TOG7jUZpjF5qjDa n vhtzaD1tVjo+ZAW1mBYnsEPTQ Z1tAsgflOV+WCWcLVL3gGwxOB voOOQrzT8sZQLlF8o3PrXxRqC 1 BBmcF8IjjcV2MDKlpLVjGBQoh WYEpX0pxmwqc9egmpttSaEiDL NvKJv3CHg1DQRqkUbfVpThUFJ 0 NdA8RGJ5mZRakV1lrPtwvpaag G9wOyc+WupbwHgiZGC9TKj0G5 GiTde1RCTplUxvFQ7rmKOeVIg u Sa4wwPnngMprUA0hVTMvgyjui 169SxBqf7pfGKTpzNAkMPirOQ Z4R75qc3D1OCVcVPJoZGR6uWB 4 lN7jeWrlrvtmqQKnmXmlrvLzz HolKNirIUzsH125JRZjkPkmWl ZdNHy9R6TcNfm2FLKgpUoePY3 n bQLlXMtxLz0dnSpjkPyeRX7aX JKfyplsc686SrDer0nbDRRfvJ TnWDuxIUG1J58ni6P0MLCgYSB w AQG2cXI6eB5uwWgsttkigVYob KpuhzJhiCniNRtiNWkwC765WB VphMjxUvNltAx2G5TmUyh3FHX z lDvwUH7fbEUjAXsrWk7edHigs CiaPO4nKDLpkmvga814JvFzf6 ikQOWcxERhIYodNRJ9M67so2U 6 VBGvLCZiLSK8xQD6iX0sfQpdq jogbGVmdDsgdmVydGljYWwtYW rgJ915JBPomMcwIzMkxQewrmB g YPshUXn9W1SpVvednEZ+PC90Y VSfBR06jCYpyWQtv6cpsYd0Kt KiFHCiFYK4lRcoBGvcq6PhHSK t Y34peHEqp0E0FIHvkRuoiANfH mYodMX1kG9uJVycdrlae0wngj ldXawvp2atzt07dM63E93xTAy p OXYbKNOpTIGpSEOqsFwiyg8ic G9wIi8+WTWjuQN1tUY7fQ8yFW QfVkA4MEvpH091IqAmwKUqNuj j h1rhc8cgnEv9YbO4LXZitoAvo ZluPFV2u5ZuEb48Q65gGBpqJY GaLSRgWJVtMSMztOxwoi9cpQ2 w Ii8+PQLsbZR6sFZ2pK3hZbXzU bJ5GRqlO631DxThqFMoEbzbD8 3lE5HosJO+KXAcIua0AOLuyNh s QY3ejQQuHJiqQv7cNLF4AqWpK iIwIWyzM2RkNELcgrvaszqgrT V8PJFvDMRhjE83Kv0vnFgjMZS w nGMFaN8hmbwff7xstcjsOrDlK ZNfHBe4PTd2JUSlgHtgTeFzJW G3DoY1ZRZ0wCEthX1bdGgdvth g tZ5qX3DfGGXbrwefLp72eU8uL rXlIuO7FZcjJsq+VEFOTkVSLC KAS75RQKDfFMgmlPO+PHRkIHN 0 sUzzSLeqQHPmmQ9qEPQsM9l2Y zYaBjG3ATtgM3ItOXOidiveBv 40rA0pEzWvNbA3RFxoN3UrktJ 6 YMJzjOYpZGmfIMF7P37bq2C0G AIzIFRgBMT6eNH7rS7qjXydix ogbGVmdDsgdmVydGljYWwtYWx p B538IGJrgPcrIpTtPhR2KgP4Z Su1R4JjEfo2MOJqiEykKB8bgK EaGVqqUi5fcNdulIvvWZ5vCST p ezfbCMJumV7aSMRgtXOrdDlyJ S2yOIHcgnmoe134VmEgGRF4FS AvpETbN8UwsY0nKbPwRBLyKRC w I2MmpOAxRKlrN567JYhnUyL8P PLhvsKxS0WeFQVxeWlhAcY4y7 M2Am50JFREQSPpgjmvzWW+PHR k OEB5tXxgSJotSBBjhJ1nTHKyR 8u9KjStAwT6AQpcW2ZdLVLbjv zvOe70uB5jSiPtZiO4KNkdW6M v pxF0NKEmgEFeWBizJFX3E07cc 6M0LYSgYBDkDWB7aIL7rB3qcM lnbjogbGVmdDsgdmVydGljYWw t PHseC773PFUsgUslXq9jeZD2Z 7SiZkg8TMErhUftGN1wnMRnTA gtIp8keHslrEhrQP4jIEIsgnc w ZJVaqN3aRUBtkQFabRmdYR7oZ XWrlwwzu522OkMwPQJ7YDJreJ ZbU8ZzuN9zTkEpGVRbRBKbG6R l yQTjCVdbY175QJjuVpM1CQDmg pNqP9YpYYOpqHctJiJ2o7A7Fn 9DaNGrELUgYM94OA62WZ45J6S y PjwvdGFibGU+PHRhYmxlIHdpZ QDqLShoRYBiNcCmjUwuZH3kLb 0lIMHcNVGsyTwlfNKlEiXpm1t s AFUpBKgiCA0roFiwM4FqsWE8M WBoc5r0Vx45U18sN9ZmvQG+PG YekIY9lIC0cG1zHgGpIwU2LQg p J064DcFheYWvHpler4pcl7atw Dx9MbPdELDacaJuaNwqWUG7n2 BdWu49D82jHAjbPWJuAFTxCAB i GPMohVwaty8zuO0lHk9+PGNvb MM1dOS1xZ3aJzLnSoZ5EVvmD8 90NkLihWEoNzxoB24lE1OogJZ + EMCvLgk3JBBqpRvoGL3dkNGnF BktCx7uBSO8XlWmBsLvXRciN9 EtMEMjldqewbuhmMD3QMLpNQN w aF02Vn5bqOotAw0bKAKiKKG3P LUfqSPwS2CclU2uFrFtPWFkVX QbM2QfxCAeJBkzT772XXazUqG 7 AXDlppIjI6VcWOXcmHzyRwH9m 7W3Ys9UzKoplDQjTR0fQkFbGY h9Z8XzXge7CKQaeBmjLG1gjWQ k HQrwJe7bgXvwaFjeJK4zAWOdc odvx490VcElg1zwYMTvsMFsUM qjSHW9K15lm1S9CFQwGCXhAAT 7 xHW1nS2deVemeamzkZOjcAvcc jAtiKtgZDckWEhdV226QBSdtG hoHqAHSsi5S8FbPuu3NDGleFa s UZ8vgTKnFPvpRb8viMgmeQchI H2gOHMpxomfz823BrWmz2ciJJ HdcXNsEBarCGW8B65ry2B6MIT w UZAtYJD0vZY5bS0ezVefblhxu GVmdDsgdmVydGljYWwtYWxpZ2 29WASsuCcxOc8RFpj5D3ItBqt 0 LRSndVxjXB1hdKToHSijEh3hb GexzHrzUV9zHXIwluiqx514Ba Rnk2tiNADbsXHiUYqsMTH1U67 s u0D3WQMuBHUcNJV5dDH5rK0yk GlnbjogbGVmdDsgdmVydGljYW ylFAnhF825CQFjhWlcVkLajJY y OjwvdGQ+VX88cp25I4RxBkqjT uy2SRBfAHH0eRC6bO9iRUKfYP nfy6F9eIG8O8NykhKtzz1hc9x s YXBzZTog (more content not included)... [facility] Consent for Treatmenton 03-02 Consent for Treatment [id number]#1.00CD:[address] [facility] Multi-Wound Charton 03-25-20 Multi-Wound Chart [id number]#1.00CD:[address] [facility] Physician Orderon 03-25-2023 Physician Order [id number]#1.00CD:[address] [facility] Procedure - Woundon 03-25-20 Procedure - Wound [id number]#1.00CD:[address] [facility] Progress Note - Woundon 04- Progress Note - Wound [id number]#1.00CD:[address] [facility] Physician Orderon 03-19-2023 Physician Order [id number]#1.00CD:[address] [facility] Procedure - Woundon 03-19-20 Procedure - Wound [id number]#1.00CD:[address] [facility] Nursing Note - Woundon 03-18 Nursing Note - Wound [id number]#1.00CD:[address] [facility] Consent for Treatmenton 03-01 Consent for Treatment [id number]#1.00CD:[address] [facility] Multi-Wound Charton 03-17-20 Multi-Wound Chart [id number]#1.00CD:[address] [facility] Physician Orderon 03-14-2023 Physician Order [id number]#1.00CD:[address] [facility] Procedure - Woundon 03-14-20 Procedure - Wound [id number]#1.00CD:[address] [facility] Coding Summary.on 03-13-2023 Coding Summary. CD:[id number] Ww+PG hlYWQ+XJ6YPJXeF30pwVKnjB9 rQ7VJRQfQZjlcZXLJCEtHSgTl zmFkNB4hfWKpTYUg IC8+JP7nMFMuXnrvgWCsy8B6r YQ3Y17doa0fEPsgcGJ5IEBlMw Dpuwtxc5wwmHy1NXjhGuftJfP t LNYgcN44ONG5sH76Lu07dQCgv LHve8othOr2IeVuSKAzODD1gV mkEJzqs0CxOSLzK97hsHEuq8A 6 PCXpjZtooJZxCtZnnOU7oG9tH Cvwoweba3ojsvidGfz1vi31uJ Ijt0N9yZO3G8JrtcW1LCUhcSX g ImwcvEWNiW7cgefcm5llurjjS jBsQGIrOJs0TAh7LSIcoKnxIz DaTU28GRD7XJIookUjL9BnIEM s dGuwNwY6j6D7Rt7TM8KRSreiY 1VNTUFSWTwvdGQ+UK60js63N4 JuMtjjZeu6OPZnMIE9rTZ2jY6 n THGmLQayo3R7oVF2K3EiubArw p2vd7ynWSHbSVnjW27psPHjk9 G5INHvoBI5NYIdfSeiCyYanE9 3 Oyc+MHNudUjtu3JaFyhvi4hgs 2qrwFu9PyuaBACdolOpgYzoXU Q4r7RaMy2dDRMxuZX4yAF8mZ2 i RyTdYpE5SPmzO136WtSfhXJqS rezH60sQ6HatQD+WERdAav2UR JroLelZW5pR6OzTTEmhblfuGZ m nDjtED2sOFItfyfjEPVndH7jT OZtR8c7UsClKjG3DAwaY7PxMM SksuuoNd75xV3oUfLlRnD1XHz u N7UyeaV2ZSZsuNZaYCnnWYB6Z 09ru7V0ZEAkZJAmCCV8xIS9sW 1hbGlnbjogbGVmdDsgdmVydGl j GJydLIloX475XFRpuXijMfPfQ GluZyBEYXRlOiAgMDQvMTMvMj AyMzwvdGQ+SQLxMSR9sKbsHFJ n nYBeDQqkCf0pzEnmzHptVC6vT STbwjbxFVEseZ9cVHGojAQtwM ibIE5cIZTqqsahn410VjLiGXS 0 HWJmvWJtZ1NmyK2nMoSpXUBdF LJnP5GsmHTkWLmkZ670ROvxAa Y9BRAdewYqP2YvJJSflYvwShH 0 t1N0Dj5En3LgpxdhS2WfnGRfD uQvDldiNUl1K8BvPahvsHJ+PC 37TRMfJU06FFd6OCU1iLqnCRn i HXTdX6GtvB5kVjIsAWHkICWuM yc+PHRhYmxlIHdpZHRoPScxMD UdRqVcdIreVB6jDy2fVSRsFAG v wPasqIXrSyPyy5pkWLLnWQdoK H4xqZswT1NxlUZ2AAUag0n1Gu 97P48uI8SwlOH+OZIuaAN2uXX 0 xV0wBlPbDqX1DEizU477HuJyq MEkYodlq8qyk1yvxAn9WsZ6LV TepzFqyAheOTD5z8XuGb63Z79 s IHdpZHRoPSIxNSUiIHZhbGlnb c5wdT4iTn3+GAQltXO3zZL8dA 1sLeZaToI1BCapJ381MdWxnUW v Fxkmt4urh1cneSk9StDnTIOkf iJpsQktJYV2t1MkJt57I2GumB fhn7BkCmj4zu71tLBaf1N4hXN 9 K2OvRKEpvddzbPVtcGlyQV6xV QHdcsqrLESxtT1kRBPzD2d1If PqTiO2HIbxE0MkewT8AEJyiQJ g SZTxmBRDsC4lyfmag6xfvqnvB cRjUXKnBYb5USr0LKBqqGbcSd RjBFD6LlS1ZFK5xLBfbJ6fbNb n wwfphN7jFml+RCR1rPWfuPGHL I7cHmjumIQ+IFOeLGX6aQbyJL mhUGEpiT6oPGSnG2j4PmHuIyF 1 LKhvX2EantE5BNIzwJKqZGEse UOZhS9ijqunn3hmiknzKeMvOQ CoKZx4BCm6PDQqsSpzHzBnCRC 0 MtE9QHL5mBRfjB3rnKjeidpox G9wOyc+JuaqqKsmTOR0BCp9O3 QlRhf1BDWrxEvcCY1rhRLqWOe u Tx0ypYfviXfvVS7uEFXpqzsxw 470ShZig8wqOXWdeCAoOMfpWK Q9Y57gh0P5VEZbMVTkENR7lFR 4 vA7cwXyffsgagCZwqZopfdReq VmnRUdjJCgqB031XZZbkGioXf CbEIs1G4WwOsi9ILOpeTvuYS6 n fJAoIAtqTx4trVxrtKgsEO2gH UVqxgwtp474FjZnt9prIKUawC GtYGafFLX0D25mq9U1VRPiUTH w XUY3xWW6fN0cbBlveyyssVYrx DdzayFchHyrNCwmRSepJ373ED LtfRguQqUusIf1R7GwKxg7RIJ z nZvbGH2wdZHiKGduDd9adSkpg WsrFS9qYXLivandg159VnDef7 ajURQgtLEhIOlcNON9P08yf6B 6 MSJqAIPpKCX6vNT1wP8wcGjqw jogbGVmdDsgdmVydGljYWwtYW tfQ593CGVctEfxAqZwxZuzxgG g MAspUCj8I3QwHyihxYD+PC90Y FEmZK41kBPmnPLaz7anoHq4Vt SeGBXlKVK2pRyfOPstk8BwNLU t S78hdOWam2G6UVZznJdojKHsV kFwlXB7iT7bOAcbyvoil5tnuq pmTesod0hwkd33tG35Q73lUYi p WAEpVBObAJLzKHXbsFgqbo0la G9wIi8+NHQcyYV8cEP1zA0iYZ SrAaP4XNjlC426SqUwwWMrSyt j b8usu7rbyVg9MnU8ZMRqhfYaj GyzCMY5l1UhLy85M17zMVnhBA CfKRLhMWDiUYGrqPyjke5lgT5 w Ii8+ICBbfYM2zAE0xP7ePtYpC kB9DOxqM864WfDpxIByYiuzT1 9fO3TshSU+GJNlSks2JJEjqWj s UG0jhHWvRQifKp3hJHS3WiNaT zBsJEgpA4AhZVLmekqwxenkaP X7MGYvZJHnuX33Sy2ljRxuJVX w qMRQtF9vdldcp1tkccdnGxQiV ELoZZd6XZj1RAYetOeeYrBiWL P8RfZ3JKS7zDPyuG4kkWrfogc g dP9wJ5CoENVakcgmRe04iP5wY zAuQmL3XIqeIdg+VEFOTkVSLC YRT72PCBTjCTpyjUA+PHRkIHN 0 wHfbZYtwJWJcpS5vZFVsV8t1K jKwMkK1WBkfV6HpKGFuchxdZf 41eL8bVyLkGkY8BNqtE2QfeiU 6 XSKrnQMkJDhqHHY6J37zl3K8C EPcWSJsVKB9tHA9wY0jpRmrwr ogbGVmdDsgdmVydGljYWwtYWx p Z497RPBxzZvsYfQlYlS5YmK9V Ab6X8KhPjh2ZVJvkHjjTR7zlH MtTTxrOz9udNdzkGszRR3iVHW p wjgkEESegX9yFTEoxAWlzJuhG F5oLHRyzoqmp725YsQnWAL3XN MahPAaP9HlxK9oVfSbULIhEON w L9CdoHRaSOifR221KZdaIjJ0J NGppoLnE2RuXYZzvMrqSjM7l1 N1Fr49TZPTTMFgbseixNF+PHR k USN7xAfeUZbsQYBmhW4mVFMcO 5p5TeVsIjK2ZOzpN3JcCEUvzf vqXu64qI0fGeFjGuM3XPusD0P v zdL9GWQueNWsYYaqYUK2I28xy 0A0VAXnNLPdPLP9pNU2eJ9ziM lnbjogbGVmdDsgdmVydGljYWw t VQwnZ393NVSrtBscJq5qyHM2X 3BqMzh6DFYvjLgiDC5poOPlNQ ddWg1miPwsfNppHB5fGPAzosj w SGUnkE5zUKWziATkiVkeVC7hA UFydlkjm891TxDgNDG6MRLiuV CaV2RbyH5aKvPgDHZiPUCoW2A l qDPkJXxhX147IPjhVhM8RQVkj oAvP3GnATYgmCbfNeC0j9O8Au 0HrSJtJPIcCN25HV23UL29P5F y PjwvdGFibGU+PHRhYmxlIHdpZ XCvQXdwEWQuYpAihImmQC3iPk 3fQUAqYPTlcUvcxQOzDpIah1b s ZPZwGTftSQ9xfFqmF5AxpJW6C PFyd8k7Kb83F11oB3ZiyHZ+PG BytPH0uHO3cF6xGfMiNeY9MHs p R242KfOnhUFpPrdma2tbt7gmb Uw8ZpErVJWkjlDvsXmxASK3t6 PeWj39K44yCIwrWOQpZWKjMHY i VIBwhCclou1vxB7nEk2+PGNvb RA6nJZ0rF7gJgOyMlK9AWxlB8 89VlDiiZHdKnkrS80lU3UwlJQ + QLVnLgb9PRWeaSdnFS2ciBXxO KjdQv1uMNF0KcHiYzXuARlqP6 UyRNXlnstokcopuBR3UMTvFKF w pQ91Kw0ztAqpXb3iFHNkSTO3R EKdzBHwY4WlzV0yHuMyFKNrZH KeZ2IgmYCvBCovI612YGkoOpX 7 PKFtuyDmK5TeHERdxTkrSeS1t 2O5Yh0XhGzveHEzQE2gNkNbZM c3V2SxFoa6UBSfoXflNL2bpVE k KBtuPy8kyFjcfBwwKZ4qWEJva olku375RlAdu6uwPHEnxGAsKZ gbHRT6K61fj4Y8AVHyOHGiXHD 7 cBJ9dU5whDkodbrwoGGymIzle lGhyWwmDPkuXJskO413GJVmfH fyOcRNBqx8E5GzIbm5XFAbiRu s RJ1ihLXdIAwcWt9fhOraiTkdP H3jXKQzwfnuu761RuItx8vlML LmdNTkPDtkTQX7Z48lr7I2NIK w XZGdLHT6rCY3vW4gzXoiwswpl GVmdDsgdmVydGljYWwtYWxpZ2 67NNMzaAzcPv2FPlr8J4MpVfg 0 SZHnwGtoOI5wjPPuIFdkXo6xf OihgMlnHZ7gLBZvahrnp283Hi Zyp2wrWURbuBWsKYbhNQW9Q01 s f6K3TMJjDTBjALG2gEV4vO0sc GlnbjogbGVmdDsgdmVydGljYW syKPnxD652GYAyaOcdZqMpeMX y OjwvdGQ+UX63fk66F0KzPyzgR bt9WZGlPFU2dVW7xP0uTSDrLU wqy8J1fEB3P2AevrMwns4qn0o s YXBzZTog (more content not included)... [facility] Multi-Wound Charton 03-13-20 23 Multi-Wound Chart [id number]#2.00CD:[address] [facility] Nursing Note - Woundon 03-13 Nursing Note - Wound [id number]#1.00CD:[address] [facility] Consent for Treatmenton 03-01 Consent for Treatment [id number]#1.00CD:[address] [facility] Coding Summary.on 03-06-2023 Coding Summary. CD:[id number] Ww+PG hlYWQ+OS0YYYBpR00ifVYuoT1 sV7KMBMmIJrmdUKDTARnPQcAh xpQhXB6bxYTiSRVb IC8+LY1bUNIxCkfxqSMew6B7t ZY9E74euw5dQTmhrMX2OFHpKu Fzkvswm8zxtEw0SRaaLnynLkX t NUJxoF99LCZ0cK72Nz48eCSoj VDpq1wlfKv4GlKcQLAtNZO5qZ rgYKerj8NwYMMhX34pkJYke1W 6 RXTmhSgavGDmWrQmcXO0nP6zK Pqmuisfq7arxinxWfs4fh66vC Fvy1J2gMQ8Y8UtntH6MGXynAJ g LzlulAQZuZ6atojxj6awjyfsU xLuXAXpZJr4JNh3VHCciHyvKw RhJW13XNT0HRCgivPpO0GoTUJ s fBnpMpR5w4A7Sq4RM0WYXhzlK 1VNTUFSWTwvdGQ+VR21ox73D6 ElIlpbHvw8APCgIWN3iIV5rW2 n SMXpMPprg4F3sJI9N1VdujJfn q9si3asNYRmAAelO88zjWOna0 X4MDBryGI6DBShxGiqWfHoiL8 3 Oyc+BTSixYecd3VlQkvmb1dsu 0eojNv3KobrWSMyahPufJdxXT Z7a8IyXp9xXXJgbAZ8mEQ0zV9 i ItOyBjK4IXcvE562CqGxsHYsQ kylL73dS1RngGX+XUKqXkm0WI WhsDugQU6kH1XnGUWtucjsiKO m pManYV1pYCOavadhZPLgwP1cJ IIuH2a2KoNtZpQ4MZidL2NnHV CenggqIr69yT0eZmBdFaG0SNh u S1AbiuR2WQXgqBTzLMzyOGK8S 97sl7L9ELYtGQMzCOQ6aUE3kA 1hbGlnbjogbGVmdDsgdmVydGl j BUleHEddZ433XKGsnPxcOzViB GluZyBEYXRlOiAgMDQvMDYvMj AyMzwvdGQ+PJHcNVK9bYhvTKO n uDYkBQacJn5fhMzgaNojWU1tA XZlxlmkKWXfjG4pFMZkiNNfjC ivJJ4zITTbfhylr638YpSzZQO 0 FEYqoZQrF2FvoR1hKqXuLUUfV KXeN1WpsSHcIRvxZ534HUwaYa U0RQXbavDuA4CsPIItbKwlHaO 0 y1K8Vl5Jh0VcdfjgC2TpsVJvS bBkRrabOTl4B1AgQyppcWB+PC 28OAQmYY86YWl6PUN1gZtqHMe i BDQaU3LvtD4pJyEwZMBnBHSkU yc+PHRhYmxlIHdpZHRoPScxMD OoOgHyzIqvAI4mFk0kTCJrBEG v tDivaYUxSiTut4quBCPqXJomE U6mtKciB4HjzUP3PSQxn2q6Dt 94R65gU7XlxSH+OQFokIF6nVA 0 oW0wPoVvHlK3OYqrS084PlRwh HHdFyuvh5dxu7qkwLd7HuW5LA EzhnUygYsnKAH0s7FhJl86D69 s IHdpZHRoPSIxNSUiIHZhbGlnb k9npF6vId7+NFQzmDJ9eVR5tL 5eKwVjCmQ9ZBwdN013HgYtwPH v Teypq3uxs4fovHy1YkIlGARvl iHtqUohQVL0r0TpZu94N9IlzP yky0DzYlv3un62pLEnq9U8cFQ 9 F9WrJUSzdqxcwJXrcXpvUR6vM YSmpowdDLLzeI9wMFNvQ6x3Qm RyBsI9JYubQ7QcbuN5JSOmnGW g DMFjnLHAqB5unxbwo1aisvptQ vMbMDKhESa3ICh0ARLrnUiiKk MwQMH0WbR0XMR9eTBsyC3rqCs n wmxyhU0kCkf+RWW5kGMyrAYPH C2gHxjkhYR+JZFbJHX4vOxbGX wwXYCskE5zPLNuW1v4LpHaYpN 1 XNttV7CfojH4NHWyqJMuISDfk IMKkV8kinkdn3baiwgfXbZgLH ZgIKn0WQp1ADMhwXezOeKcGZW 0 WjS0KBL1yADczP1bmZwckrsdi G9wOyc+JhkypDwwUTV2QPl5S5 VyFxk9RFHjuXjcWG9daBShAUz u Fl0vhUfbyFfhBA6yNZMokanrs 048FdRzd9qrMATlpRSpAZfzUX M4K36tm1R9IXRoWLLdSCG8zXW 4 fB7xiLqilhkleTHsxHetvzUmu KlgFYjkQVfzV787ERSvdXleKy PnTFp9M9CfZpk5SBAwvMsrTI0 n rTLjAMybSc9sqWyteDnhOM0rL THuejmvq113BbOmd9efOIAztI UnRFcrADJ7J22nq2M7QIKbLGK w UEF6tTE6uF3voVbucdpexPYpt KyzcnMcnIbsXXmtEEwdR798SP JheEptOcSibVi9P7GuYtp8KKL z lXpnJA3otBTlBFrjYj0vfUyvr RvkOK3iTLUuisdjm511JkMuq6 hbZCKpeNBnULknZTN1H29bv2G 6 XMTwSUXyHIA5mIK4cE7mnQntw jogbGVmdDsgdmVydGljYWwtYW msX844KGXiwZwbErAccQvywdX g BSwoOZw8H1MdDsgkfSL+PC90Y HBoPP06gTAamTUeb7pcgIv3Jm YhASNeXMP2mGocTYail9SeSFH t I43ekXJsh1P6RIQbvDogsJQaK zRuhLF0iU6dQOfgvzybp1lvls hgUaath2plma74iZ74Y01eTJm p RPVcMJNnESVhLCRzhKixli9ps G9wIi8+MGLhtTA2vRF6zV8iRV RtJpK1UJqmY992TlEnqSHeJgr j z4ruj1xkwHl4CoA3CHPsowNsr CnaTKO2l9EbSk46P11tBLqiUN SoUFKyNUVyURMjxHwikq1daR9 w Ii8+RPUjyEE4jNZ2wG7jXmWhM sX3ZNttD303LxDndWZzAuqtQ6 9aO2RkoCW+JGYoIka7WBPovIe s UI0xgHLxCCuxNu0eOLJ3CaCqF tRjQLajJ7QjRSNrfuonkrabdY C7FTZzGNVhkS56Ui4kdWgyGUO w vSOGxH1hziroo3vstnhqHrCrY YPrMGv4VOw9MGFkzHwoCvKqEK J7FfS7WIA8kDBgsW6hyRspafa g qV7vD7HzYXZhuwmzFe58cO1kN pZhOlC9YYuoYlq+VEFOTkVSLC IKV08IZPHmFOyczIO+PHRkIHN 0 tBktLLkqFXUhpN6uDHJmY0k4P bCuLqI8KZhmX8GxCBKlgwliMv 26pU3tHoOwIeJ9ZUahL7IgdhR 6 RKTxaNRyTGdwCHM0F14fc0P2W BStECLfFLZ1gTS7jT6hoRawdq ogbGVmdDsgdmVydGljYWwtYWx p M403ADGsmNlkMwOiZjV1StG3U Am0D2MbFwl4ALCkePpuBL6hrB NiGFayNa5woSerqPknLE6yDOP p zuqcBPMksL2kMXRikOZzvFokB H7eYEWolpyeg946SyEsJQF2EA RwmUTeC7LajP2cXtAzKBNgRYE w I3ZxfWNpTEtsZ582JSruKaK0G RAdsnUzZ0MoTQYasGntQfQ0e6 N0Ya19ZKKFJSWulnehfJM+PHR k RSX4iCvvCTlyGVMawB4wETCkH 3a6JvJuUkS1PXoxN8RzKZRkwe fcRx74eR3vDvIwQaB2XCsyG2B v dmP7DVUxoXJxTBgnQIG5K85ou 5A2XDRqDQOiEQA4xGX6bS2haO lnbjogbGVmdDsgdmVydGljYWw t RFhbH705OSUjpGxlOu6dqGB7L 2JwTsw4JBEeyTmsIU5reIEfVO jfAx4mxAculPbfJL8aASMfjri w STRjbV0fIEIxoQEzyGrhWF3cI AIwcfnac452WjAjXTS5ZZOzoE MzP0TckL0dZcIpCAHcPZSuE3Z l fKIvXKxnS174OGacWdR2PTHkj uQhV1BoVWSivJwvOlE9u3J3Xj 2SdNCjSWPlNS90PM91KS18F3Z y PjwvdGFibGU+PHRhYmxlIHdpZ VIiWCtuTGBtNaHjyIqbHA0rHw 7oIAYsAFFrqNbdbTSjSuAoa2l s ZDRlBRpxYP0wvIbbT1EegXV8M JZtd4z9Yv51S35xD0BibHN+PG JiaLE4sBK7wV9wJvStOgV3GFf p C363XtDrpCIaGknqj5pfx0hri Qm0SkQyGIYgbuNxkTazJJY6v9 LaYd58R10dYBqqRVVmJJUiOVI i WRFvbFommj8qeJ8mDk3+PGNvb SL5aLY4sN1oBxHsPoF3QLygB6 32IfFqmVGhRzxhF54dH7UxpEH + WCTjYbp2SVSsmHheOS8poKMxO FprSy3iLCS9YhEzFhVkMLthP1 LhVRNxuknojdnruSM1VEGnIPL w xT61Gb6xtKinOj5uHOHoHID2B JPjnTHpN8KcuI7sKuPeTMMqMQ DtI9QteIGrDTnuF306HRotMzR 7 HQVnbbFeH2BdPNQxrWpeBeQ7b 7Y4Wq1AwWltiVGzYU0ySvIyRQ p8T1ZkZnt2ABQqwOgiYP8tiUY k OJyfVj6epVzreLctOQ4mWVCtu ikkq718BaOfu9tyWUVbvXWeBI lhKSL0I92jm2N0GPDrRBUqXCV 7 zZZ1uP5zhEriwaddcUXsrBggu pWwbCcvUOcpGMhjS643CPXpjF ewKcZMFtq6L4YtHkd0ZOBcfZd s HR5rfMPrDXaeXh0lqUxtnUxpN W7uEXEgdftkg099TrUdt9zwBV WgkENcVGjvBDZ9R84ur0V2ZBW w VRUbVGZ5rYH3rB9vwUiilljtt GVmdDsgdmVydGljYWwtYWxpZ2 72SLGjiAooDi0SThy8Q8BiRpx 0 YUMthVqgGC7hyIDpJMntLk6fc XrjqKtkYZ8bNJKbjyges094Fp Roj3bbKZDxcXLsDLevZUE7Y93 s y9C4UWUhFOXgNUL1cPR5fY9mh GlnbjogbGVmdDsgdmVydGljYW otZLjnZ067NZYyyVznHiNyiQD y OjwvdGQ+EI35nj28X2OxCdeoY dh4SUQiBSW7tNL0fH0tIBEcHI ijh7J1aMH6H7CwgzZcjx4xd7v s YXBzZTog (more content not included)... [facility] Nursing Assessment - Woundon 03-06-2023 Nursing Assessment - Wound [id number]#1.00CD:[address] [facility] Nursing Note - Woundon 03-06 Nursing Note - Wound [id number]#1.00CD:[address] [facility] Consent for Procedure/Surger yon 03-04-2023 Consent for Procedure/Surgery [id number]#1.00CD:[address] [facility] Consent for Treatmenton Consent for Treatment [id number]#1.00CD:[address] [facility] Correspondence - Woundon Correspondence - Wound [id number]#1.00CD:[address] [facility] Multi-Wound Charton 03-04-20 Multi-Wound Chart [id number]#1.00CD:[address] [facility] Physician Orderon 03-04-2023 Physician Order [id number]#1.00CD:[address] [facility] Procedure - Woundon 03-04-20 Procedure - Wound [id number]#1.00CD:[address] [facility] Progress Note - Woundon Progress Note - Wound [id number]#1.00CD:[address] [facility] Coding Summary.on 02-27-2023 Coding Summary. CD:[id number] Ww+PG hlYWQ+ER0JUGStO94kgUIbpG5 pC8ARGIvXTryrXUZIZZsKHwWr xdCeSR5kqHMzQNXv IC8+KW7dBECkKjcgmCVgw1E7v QB0N20qni5pLQxpfJS6BHXdFw Sidstjg8xvfQg1ZRegThelVoF t FZAicD16BRF6cC33Bt14tKHdo RRgz3tweLo2DfEsJQRzJBT2xY njWQhvx5AmZEVpX36qoKOpc5S 6 NCWhmIwwtAEjPnTmsVB3nJ3aF Jrygfvuh5dvbqwqIya9pn80fD Dmr3Y4iGC7M8SylaO4HTCbjQD g AdfwmBNExY9dltsmt6mikywgA oFiNQXqBWr4BWg3WIBomZesOs SlEO74BTP3QHGfirRrV1WwOCJ s wVthMnX0m4C4Wz2DH6RWLabxZ 1VNTUFSWTwvdGQ+VF63zn64L5 UlZcjhJhy9AKNbHAX7oMK9iM0 n WFHoVUucz8J6pNG5L6QjnaQkn g9id9zxCKMkKMklN36roBEgu2 H5VUHayRC5LANfpNtwAnFlpT7 3 Oyc+ASYnzFmsp8UqFdorq3ivz 3rggPz0JpglIMXchhPwnPieLY N3q9KcLw7rNERwdST2jOY7vM7 i NkKpBjR6LIwvB730QyHefYQpA ggkZ81yA5OypBF+VAJxWvu8UP DlaJcaJT1rU5GvSFXgobyqmJY m gIbwBY1cODEihzqkKTRyvL6cW JXhH4t6KeXgAbQ8HKctA9GwVQ WnwlzeZu01wE9uGyVeEbT5QZl u X7TcrtR0QEMxtZPaYTlxAPY4T 35kc4S9BEGuZDRwKPO4kLQ2kS 1hbGlnbjogbGVmdDsgdmVydGl j IResPYhrJ528DIGosGarTlPpD GluZyBEYXRlOiAgMDMvMzAvMj AyMzwvdGQ+BNXkABT6jOoxBOQ n aXLbMBdyGz3axOdcmIgbPG9tM DJzjhrxUTKgrQ6jOGVzkICuqG xzQQ5dFILfjcabi794OcEtUQJ 0 NYTddEXnC7HhmB3hDzYtPTTyF NGtQ6FreVQjCZhzC956CEsyPf O2RSPvynWcU1BoVCXemYfyFjK 0 l5H9Zk7Xa3DvdfxmS9OybBNwV hDmRbgsDVs3E2RjDvrecKJ+PC 31XVEmMI84TPp9YCH1pCdaYJz i SEAvH9OsmF4cAqDjQWHkMLWjB yc+PHRhYmxlIHdpZHRoPScxMD EoLaLoyIybHM4tEo7uUYTnUKU v zGptqRKqEwExo1gcEPDaQKcxN D7ylJkgU3QdmRM1XMHyr0a4Dk 34I60sV3AadKK+AMAndRQ8tRW 0 iZ1yWvKmDfC1VIpsZ880LpLmd ETcIbulc9fvl8uciCe1MpV5DA DbxlKzpPjiKVY8l9AcHt02S99 s IHdpZHRoPSIxNSUiIHZhbGlnb e0zbF6vKc7+POBblTP4uME3kQ 1kCzItGfK6XUuxY466IeUpbFF v Fpomb6jke7vehJe5DuLzZADrx tGnpManVGT0r5JyFy44R0LkjI wii5TcBno0af31xGLmh7Z0nDG 9 Q5WmPRIonlsysFKwyKbpID8qH TZkchptLCRcdM7sMPWdB9h5Nd AcOcT9FAzhE3QmqxX4GFSdtQG g KTTrfEAIcZ5qvxtiz5publaoY wQsCIArYNf6UWf0NOTfjMwcTh UyKCT0HjY1OSF1lQFfeN3ebYq n cmxotU9xSwm+SEH7cDCyyTGAW O8lLtjryDE+FPBsAIJ9lEioVI usEBYbxD9pQMQtR1r5OrVbUlX 1 NAjxC8FlvbO6JPBbmJZiLSKsr AFVpL3hfsrdq9wkigdqUjNxRH QnDPv2DDu8YDVphEkuXuJgVLF 0 YbI8LXE8nATggX2tbPrsihngx G9wOyc+QqdakHyvZMY7AVc7U9 LaEyy0TNMeoEscLN5ejGVkLVk u Eb2rrZbzkBiiXH4aPMGdvlvvw 932NfLkb2tmDQVjxTHdSEniRX J2A72lx5A1FYCtXEIhARI2lFU 4 fH6nqJpmmgdygNMxfPgstxLsa BhdGVzfOAfvC303FUYxvEaaXy TtNSq9W3EjBqe4OAGotKfkJS5 n tMLyPBrtKv0vmAoarEksVO0rO BHpontrm299YnLfc9efXRNlvL PdNYhyFBJ8F90gi3S4VFMiSDP w VKD7rQR6mZ5udVjtmkvcsTXjo UekuzJerDehIIgnHTneT825VB MmjHeaWqVwxMm5H9JdSyh2PYQ z oBnnUO8eiTFzTIiyFc1meOrzy UxmVT1sEFYdqqauy589CaPdp3 lfXGHbpIYeCSliCCY4B32zi1A 6 OHVkEQHuSOZ4yTB2lE2mpHbgb jogbGVmdDsgdmVydGljYWwtYW stO283GNVauPfjUgMnrUjjfcZ g LVwkVVa0B4SdXetqfKC+PC90Y TYdYV77wCSzhFIoh2zrzNp3Ji WkUFXcUOP9dPuiPIswf2VfKER t C29frDRou9A2MDZtjHergCZxE vNqpAB7nI1hCGguvfuxp9otua elIcpxy2ovku43dS41G17bWYp p PUPrUSOdEQVhKJOfvOozhp6zm G9wIi8+EVEeaEP1uRE9dV4pHC EpMgF0CRtjC543CsVelTEjAef j j2eex8zksLz8JbQ7OHTuobFih YifDWW3h6RwUj31A21cXKexGY NoITQrFCEjTSYhkQrqqu3fsL5 w Ii8+KSEtoWU8eTP7yS2yBoDqM oP9AEhuN489MrPatMWtNjjsG6 3xT0EwcQF+HCZhOnq1XONcvOp s HK9jwJMwYBsaNp5zNNS2ObLwE nHwXKxtR2GzMVNpgbefnhrdyA C2ZXOnGOHcvR17Hc1eaPynHME w nDUBqH6jimfec8jsetmsEkGeE WJvIZx3JMf7SGJugDwsVwItTH K8EfH0DXU6iYBuzI5cmSszrcu g gV3jD6NpFMHifgdgYf80iA7lU cUbVsI0ERnyTyw+VEFOTkVSLC LUO07PFLHhMEfdxCD+PHRkIHN 0 iYphYFonMJWkhD0fGSCtK2a0S rWuEmS7NFoaF9SaEHCpktqjDu 04hU9bLdCnZaI9XAbxL5RjreV 6 RLXvmIPsKKmnHSM2E65jq9Y5U DQeRUSzNMW4lSL1dP0gcKwbqo ogbGVmdDsgdmVydGljYWwtYWx p V743EGGhhZghOdMkCpH7XnB6D Lh6X9OmVeq4ZJBaxRczHX5efH JzWWbcMw9dnPjcgBhwUR6pZFR p vbwzOGXyhP6iVDEuqTDcuQdqU J1tARTtbhsfp862TzGuQHH5JM VofYXvX1EcbM2lBkHtLABkYYQ w N4UvuUBtPKykE335HZawDbN0O PYjvnLgK0CsLREfvNpnOoJ0q3 S4Wr34LQOHSVKiejipgKK+PHR k SZC4gUvpKXpuKPOcrJ0xWXPbK 7e0CwBcXtI5RHdrR0AdFKPgge cgDg21xY4dDxLtNsP9HOnsE0E v bjZ9QHAjxXJbCYzfUSD3T72la 2E1XJTiYMHeOEM1yLM2rL9drY lnbjogbGVmdDsgdmVydGljYWw t FDamI285TXTcaGwmZn8kyBG2A 3LbHsv8EOPzbNhpOX2hoHOaTD scTl2qgZomuXtlFP0zRMGztze w ANUthK2oCQDaiDUehLmmKK7lI DXllwmrq678YnKwXTL8GWLrnQ EyL1WijL2tNoLrGYObKKWwS3R l aAUyETisR590UKsrGsZ4HEXyd lWsR2JfGOChfYuiBbE0e4A5Tn 6YfLFiKDYeOP27KR84EJ45L5J y PjwvdGFibGU+PHRhYmxlIHdpZ GPcUKxzHCGoJzOpbSffNE3oGn 6kINWvQBWpqNplhLAwDyGct1x s EKLmJAaeVN7spFioF9DbhOU5J NOcs1q5Ip76S81sA9HvwLD+PG DmeRP5hZI5dI5tLuTtWsO9QUo p I885LdEqwFSlTzxsn5jch6dty Jp1TqArBMTorfBsqSnjYRD7u6 LsGy38V92xZJrhXTFuRXHlAOW i MPOtfCupgj4byV9eEp6+PGNvb QX7hYU2lK3zAkOoKcG7FYfpY0 52PgJqiMZqRsgtD31eV3LmdFB + RXNiEho3FRIpvKzeHI7jkIMcR VwlLl4zHLJ2JdNvCtUtETtzN9 IpELCnhomayvteiTH1JITyDHN w yA19Yp2svTmpCl9qBHXaOUD4T TRecRWyG6VozU5rNvAgQBBjWD GaO0PwiZIiPOwqI768GJzaNgA 7 XWGaukXfX0CfWZMcjXtaAkC3s 1D1Ey0ZgNhpyOMnFA9aHmJiNV k4Z5LmEvy3KMDvvZgjDO2enPO k BFkrRg5ykScedEgiUC6pAFTte mmqn755VoKxy8ggYKJciLZoEP ztOTW2R46ot0A5ELQgCNNgJBN 7 aTL1tZ4pjYcaumbzhMVmcIlpg kOazKdvYGmuEWcpS296VFTmyL bsZqFXDnw7J7LgQzb7NUUcnFq s ZC0vaKOfXGttMk6fuNqehIlhZ M7uEOFagzjqr339DpMmp0znXN IvlVJsHAezPQQ0F29rn0R1UMA w MWIyLQJ3nQL2sK0uuCjlhrxxy GVmdDsgdmVydGljYWwtYWxpZ2 49XSUnjDktDy2KYza5B8AuMko 0 IDNtpCwmZI1thLHwKNkeEm6fy RlknWfcDG7kSEDjawvxf904Qi Wts5seFEEysQEvHYjzIEI7P58 s a4A8EOVuSWSsPMO2dZX5qZ7ao GlnbjogbGVmdDsgdmVydGljYW xuZEtdE886XTNrwIcsMbDarVY y OjwvdGQ+LI28sa84M3YiQjfdD rs5EDUwNML7iVG3hK1dSFDzOA onu2W0bUV4X1YhbiWhgq4ms1f s YXBzZTog (more content not included)... [facility] Coding Summary. CD:491951Bqph42FAv3w Ww+PG hlYWQ+IV8UEYNqL05pwTNpgY5 oB7RXXGnJIxjjQKDQFQiOGpFn kxXiJE8xhNLsABKz IC8+EE8fRIRfIuwaxXFxi0I7y BH7O73chz4wDDtjeIG0KVRzIj Rehicum9jfgPt2RVxaQdmfPdF t XHRwfH75HBM4uV77Oj15lIYab TNsj7rqdUc5TmEtAUQwJJX0aK nwGEeof8OxOKFkH01jeSFzd5O 6 FESpfQbqoSMfVxSwzXK6pW2lQ Aqbdkzvk0vnfeuiYpa2wr63lD Qya8H9tXV1G8PcuyC0RCSpnVX g KvvldKLAsN0ycgsga4umovixH gFuQHUgRRx4SOl5XMHcoKtvBi SxNE36OCA3HXWwmzZsF4HkQOB s gYvbSvE8s6X5Gy3UX3FYJyoyS 1VNTUFSWTwvdGQ+XU13gt81A9 MpDxheRmt6POVqHFJ6kWH0eL0 n AZTiQVdxb5F1hFO8T1TbiwTgc l4tg9epUHKvGXwwL90hsLSbj9 Q5NPDosWL5CEPcbQlaCmCrnJ1 3 Oyc+OSYliRccj4GxZtvtj9tfg 2rvjGm5PgkdCMPcurFemYltHL H5r7PlDb6tGCEqjIB6qQI1hD5 i YuCrFeI6HBsrQ602NaKouFVkH uipS18hL6HchYD+SBBfXql0FV RuoKzpTG7eG8WyOGBiyvksiSE m qLtpUD4cNEDwuvrzBVEjwD8qC LRaW3g0GeOzHhL1JQbsP8QhHT FjelpcCq54fV2lHyJlLvX6XXf u A6AcwrB7DGXjeCRaCEqdCOW1A 07hm8B2UMAzRFErOIR6kND0yG 1hbGlnbjogbGVmdDsgdmVydGl j TIreKPynX527RFQovHzvWhHqZ GluZyBEYXRlOiAgMDMvMzAvMj AyMzwvdGQ+ZVFdKSI3zEykBIY n bVKfOVzjVb2zaOglwHroBI9xU VBfcptxBLBahK3rDHMyvWOhgQ buKT7aLREvbixyw077PxDeBXG 0 DDYsbLGtL1MbiD7dEnLqUGXoG AAgJ6EnzWCwIRgyU462OTqiMg E4KVNeztHdY3FyLOTyuWcwKeG 0 x7J8Yk7Ao2UbgjjoW5WwnKQnE qFeDvrjZKw5I8AvFljujQL+PC 01HDTcGS42JJv2RQT6uSlpWZr i IVIvH6LbjA4rHiEzPGPxDFHgY yc+PHRhYmxlIHdpZHRoPScxMD XwSqDijRukYT0yDc4yFOVvCJX v mOvpfDOsWuKrp0uiKLHcPIgdX Y5rbLamJ1GkzPD3ZQAbe8q9Ku 57D74gL2AilRG+FJFgyRE0kSS 0 rF2sDoZlOfV8PBfhT670OoZmn WRwVkzdl7dts0lsmHy6QiS7DP AopsHzqAkrKWC0l8MjMq54G46 s IHdpZHRoPSIxNSUiIHZhbGlnb x3vyB8lZr6+AWYskYB8qGD7bJ 6zEoCkAtN8BYneF507GnKwnZJ v Aliqn8tbg5txqFl1FnIzPBGxp tKkiLgdGCD2k2EjTk69J5ZhaJ hma8HnOfd6tb69uDEoz7C5wZL 9 G2GzPRYubumnsEYrqRugNX4wO WHbkjwnQXBbsB4eKLVqX4n0Gy UlWjF4LYdgG2OspvM2LEAdfDC g QGVuqPSKiD2aloyeb4cgwdjrN qIfEOEuHTe2NFx4ZYZxuXgvSt WyHQT6FwI5GKK3eWDesT4feYy n xwhybU4tUag+TLX7mNXjqKCDR T7nAgytiWR+XMIjMVQ1tTorJI nrFIUjoX8uLZMxW5n6KcGwMbG 1 FPpbV4IjceW2DQUhlIOjDYCwt IVDuO0xywgjs3pwkuhkBvLkNO FpTBx8JGj3HVPltUdwOpScZDX 0 DlY2WZE7gQNwoR7wzKcyureuv G9wOyc+HfxdnWeaBPP3NOm0X7 EvPkt9ZAMvzDauKH4vcQOlTUc u Uv4fwEmjbHxiUN6rUVRhzwwcg 963IlIps6nvQAIorMKoCWliYF A3D41gu5G6KMLoXYHiYWC6pUL 4 kR1leDxdjkkglIOrjRhsstOrh NdeGXybONywQ015JEUaeHlfAu LaJFe0E4BnHvb7FTVjvMocZH8 n jIHjBVmcJi0zuRrxaTrtCZ9zY ZBqpbyjj377IgSbh3dzBGGwpE LlYTojCPA6O29np4R7POIxQPB w IHN8kNC4yM4coSgyckgtmGXgi QcdbaMbgYdhTHqyJKxjR026IL VcdPcbWyGylBb6A6FfBpi0EDI z mCniYW6utSCnRFrrWz6weWkzq AojNB4gRFHupzilp341SjGdp5 hjJWYhpKBlTAarZLR0O96oc6D 6 HFNcUHOwKTQ4bOD3nV6ndOwoy jogbGVmdDsgdmVydGljYWwtYW auT732JQNyxRiiKvRccIcricQ g TCwcDKa3K7GpBvyfzXM+PC90Y YIxYM24iNXnbFMar8umaNo4Uj FwWFHcKYT1vOjfRSflz8FkVBS t H25syYPrv9A2WWHtsOdlqEJeF zKjlPI7wI9jIFruwqhpw1xefg zmAwxoh2ivra72dH62J44aGUj p ZHOjDDScGLDqIZIwgByntf7id G9wIi8+LEPhzXZ9jBO1uP3eFH KhAvI1VTjmW506PrJraSKjCtb j z4mvf4mbtNf5AqZ7ESMtjoQmp SiyNTJ8l5UnQt03T23fERegIJ MlQZRaSFTjTTIrgUztzz9sgR2 w Ii8+BEZvkBP9sKK5qP4dQySiJ zV6GAcjA750LwOapOCfKpetQ9 2nG3IdhSX+LYLlBha2CCGpsYd s KE2xpATkBChxLm9pSAT1RrZiV sYwYIbzQ0HxZWYbyhbrdcojaS P2DKQyJMWmeL91Da4irAjyJVO w lNPNcF3zxcygj9kacworVjFvG XNvATn6ZWf0BOPupDeoAxIzXO K8FpS3AKF2dBSwlZ7mmTuehyk g oW1dZ5ExBVLytuwqWr56lB8wM fFgJmQ9EXfmQhp+VEFOTkVSLC GOY62KYLMeCJrxbWU+PHRkIHN 0 wRhnWBagCTWtcC1yPBQuH8l7L mHdKuJ2PMztT1TjONPzxhbuSu 17xB3yToPeGbR2OIyhH3EotdN 6 YIRlmDXtNZnrLMX4L12iz3C9A BZqTEWvDEF8gVW6lA9duYgpmn ogbGVmdDsgdmVydGljYWwtYWx p X389CSGgkTiaMaWlVrU6DpN7A Ml8Z5JeYia2MQVpaCleCJ9ruR KyYAjnLo2lnBraaAwhMN6kUBM p wijnVQUpdQ3eNELmuMGwoPltX J8lMSLzujysc703TeJkVKJ4LY VstMHqP0GpsZ3jSgHiJFOrDFM w X6DqaCIxDHerR741WKhdJnQ8T PGfzaDrN9ShAHWrrPemEzM8p3 H0Ri90YOVCKNAzsucndBK+PHR k DQE5hGidTHiyAOHgkF0bKVTxL 0d2IfEaYfC0YWcpF4GfLRUols doUk13xG3yZlPgSgG1DSefB5H v mtN4IEQqnHEzFEshQOF3V33ea 0I9XIDuLXIrJUK5iQR8cI6uxA lnbjogbGVmdDsgdmVydGljYWw t ZDoqI282SRGwaXuoHr1rlWB3F 3KhQxt6UASxgAxlJR3mnBMoMJ beSu8esTzzxEsuWA3cEWFqfas w CHIovQ5aNQNmaXGwpJnzEY0eT QKohorwv375ZwIrBBH6CRHrvB RkK7MfbU4nJlVcIPWrEBViB2W l dLWjBLdoL711BToyGlS8AMGfu zBwE8DaXKGsiMzgUzX3j6P0Ox 8RmZKeRKNlMV83DG57MY63V7L y PjwvdGFibGU+PHRhYmxlIHdpZ WJeECxiWWIaVtPocRpqDY5qLk 8oSCTwIBFsbDasgWKsUwKzd4u s KAMoSFkiFQ2owEfnY8UtzXZ0W GWtk3w5Pj11R65gH5SceJH+PG JpnOK1iLP9kO5yNvCwWuM4ZEh p J104FdBojEIdOneux1oqp2bpy Ju7YvOeIXGiucTapZgjWQT3v7 NyGu42P61bBSpmIPIsSGGgGGF i PSMerXolqe5lqP5tEf3+PGNvb VC6vCX2fU2oZqIfVeH8RNwzP9 78HaPxkKKlZazeH94iC1OtxHH + IEMbZbj7UHEkuGrcDV1myQYpS KssHx0pPUD9McEzUnBrGXyuB1 GbRHOidaizqbhteCY1ALAnYFT w xZ87Ot6rzWzzWl6xFDQgOLI3W MNoxYQwE9MyiC3yCqYsPDDcDG DpM8LvdTTxLJrlV859NRlxNgJ 7 UWRnvmFtJ1AvEFJfnPbsDqP0y 6Y8Ew3VoWorhCFlLU2gOkArKZ e2A1XrDkt4LJMxyOrrMZ8ezQK k HKhhUe3usUahzIecPR6aNSBec lzwa306QkAol1nuQVTwoWGfYT chWLB5T00ot0G8GEKaTXQkQMT 7 sXQ2aC8lwQjxmkuegKZysNpjk qEjeJvtFXbgOIgpT351QRJasC njJiRAFgb3F6SgLry9FKOowPd s EH5kqGEsSMeeWa2rxKgdpChjI K8dEEQtotjww665GsHlv2eyUW OylUTuVMjlLVF5X48qt0V8TZZ w FZTsEAV4wRS2hU9ljKktuimwa GVmdDsgdmVydGljYWwtYWxpZ2 34NBSizJcnDg1JFcf4W5VxUjn 0 QPCtlGnkZL4leLIxLItkAr8ix UjoiDjcUH2oIMZbhwuou351Bc Mhh2rsMNQxqQCkZFaeNPT2I05 s f9E2CEXjBQXrPMV7lYE0wP2yx GlnbjogbGVmdDsgdmVydGljYW sfHOcoU756RSOdiQzmSaWbfAI y OjwvdGQ+MZ40hz64G8ZxKlwzA ij8ZUCyQJD4nKY4qH5pDFHsOM uvi7U7oTM5R1RfggYmzd3jf0k s YXBzZTog (more content not included)... Normal [facility] US venous duplex LE Velvet US venous duplex LE [address] [address] Ultrasound Report Signed Patient: Yousif Aguilar MR#: [id number] 875 : 1945 Acct:[id number] Age/Sex: 77 / M ADM Date: 02/27/23 Loc: Room: Type: [facility] Attending Dr: Perlita Reno DIRECTOR OUTPATIENT SERVICES-C Ordering Provider: Perlita Reno APRN Date of [...] Lonnie Vasquez MD02/27/2023 4:25 PM Dictation Location: [place] [address] Tech: Maureen Denis Transcribed By: TONE 02/27/23 1625 Dictated By: Lonnie Vasquez MD 02/27/231623 Signed By: 02/27/23 162 [facility] Coding Summary.on 02-26-2023 Coding Summary. CD:[id number] Ww+PG hlYWQ+QE1DTNTgP76srJSxsW5 sB4JRFVzEMovxIUKMJExKKrFh xlAtDU5bsXUoIBXu IC8+NE9aLFWxNbhhnNYdq3G5y HC9R81eil3bDEvmcZN1ZELrUg Gqpvzob4vsuVs7TMviWbtpLiJ t NMVlcJ60DPN8pJ54Mx38mYDus VGdi9iprTr0ZxTmIVGbIAM2bI ouUUeha9OgTKShJ26jvVSsu0I 6 MLQfhNskxKOsOaXbqGO1oZ7xV Idwnragu5waqipbDsz6hk42mO Egh0I8nUJ7E9AvttA6WYCkxNF g XdvlnENRdO7fxjmqy1etrthwP uTbRRCpVIm2VJf3LZKsdZgtKy JeFY36QSG0NPQovzOmF8WoEZU s cPwcLcY8n3Z7Xz8FX9WNKouvK 1VNTUFSWTwvdGQ+CB07qy05H1 VnGdfeCdr5YHCdMTT8zHZ5fM3 n YRJqSPmmf3I5hYC1Z3DmujXrg p7gq5ztDMMuOCymA12npJFqk3 T2NWIidUH0CHXzbVglWjBiaR6 3 Oyc+KIZvqGiyw0BjEyfvw8dsa 3qjwSr9TgeuDZZxawMhcHkiKX B8y7MgIt8jSGCofBA3vCT4jF7 i LsRbCtT4FPrrP349RuJswYMyD ovvS85uU6WviLB+PMOoCaw9PA KxrCbmIG9yI8QsOCOimqyupPX m fQxjHE2qTZLqgckxLJTcqP3dI BQtE3g1EeOqUzP2EUguI6CrMJ PwpoecLv62bS0bWdGjDdT8IKo u I8AyuwQ4FMAvjTOyYGnaSZH8V 93ym6X6SGDzIKJtOAT6hQA8sL 1hbGlnbjogbGVmdDsgdmVydGl j XQwzBAntX132ARHreDgxBkCvE GluZyBEYXRlOiAgMDMvMjkvMj AyMzwvdGQ+TYTnLFO0rVexWCF n pUNxHXcfTa6tmMauwNhrVX7rD CHpsltmXMOtwK1jPCEerKFeyT cdEE0wGAAwasqgh375MmEtMTC 0 OQIwqRObX9UihT0cPqNzCZHpJ NJlB0MyhGLlMBysI639ESezZn Z1NDVscvUbA2UfTBZycEhfGdV 0 z3B4Ud8Ne7OvxsshA1IayVRwL sMcVizdCYq1O5DrAsuwfNO+PC 61MKNmZD71VNq6NAP4kUanNTf i QSRxQ4OaiL6qCxApUDItVVDtJ yc+PHRhYmxlIHdpZHRoPScxMD AuOnNsyDajTK3dNl2zRNVdTWN v pRdthWLfBfGbq4nhYBVoGWdlG C2nrBbtD4FpiWK4ESFpn9w7Nz 47V97tO7KdbBR+PRZouEU4lPB 0 sW6gEiAnCrV2GEntC951OmRnl MTmGjzhf0gjn1fvdMn7IoW0WZ TexjPutJsiYUB6m6AnEb14X90 s IHdpZHRoPSIxNSUiIHZhbGlnb g4kdI5vUr6+UENgeHP5cXL7bQ 3tZsWaNfY9PEfkR842EpDznZX v Opjxp1qxi3dkrRd0NrNoNDRri jUzoNvdCOK5d0OnVu73Q2SpuD crk3TvZgn8eq92qKXex8P9fQO 9 W9TsIGZmmbhwtAEkxMprKS4iV LLzthuqGQKfvG8kUWQwL1g5Ch DrIrT2SNshN0OpcbW1TBDjwHX g RHLzrVKKbC5dgufwl0svfgceK gQfSRAoXUb0HGd2LVBegUjsUv CpBYL1BxT3GQE8dJDlgT4zgCn n gvqpsS7gQsc+CIB1kIAhnBPMN V3bJmxnvYP+WYQuGTX3oYsgDP xiWKNvlV4jQDMnK3r4IoCwBzW 1 ITadC7FuzwX5NBOxvWVrZEBne KMOiU4kntcnc1hnzohsMrQdLD UdBKs3LNz6DCYseEbzWnUpZHH 0 GaA4DPJ7pCJwfC5pbZyyuegjc G9wOyc+QejkgNvlCLN2HYj0B2 XaFde8VUXdhBhhSO2mjJQuPUi u Ow9yaKtjgHziXH5lGBLlrrbbi 170MsFsl4lsISMsrRDuJQkfHO P5Y26cu3D8YFOmNCOcFHS9qLG 4 jF1gfGicvejytXIbdEletjRfz IiyCYekLRuhR406YUGfwQzqLp NmYAa4Q2XiLek1LTNzvDrdMJ3 n nLXoUNpdXn9kxHjklMmaIF6cP PQqryeyo237GoBee6hrMWCzlU CgEDztSZQ0Q76ff9H9GTOmYTX w ZBW7aXW5yI0vkCpaudmyaUYuv WhuoxAgfDdkQSvkLHpdY384ZE LumAzcExDwgHq2X4PnPgl0ASP z hQeyFI8dgVKtEXgjPb4egYeht MyuTC3dVKJqlwfkw500LqLgq7 wsEVHiyEUfABfcDFU7K02rv7R 6 TFZgMFBbCTF1iWI6pA3arHtrb jogbGVmdDsgdmVydGljYWwtYW whH714BXFhvGfwQhDgvTpqiuI g CQcySLk9P9HiYidpeLL+PC90Y WJtNE76sFNczXZtl1zadDd1Jt AlQFNbCFH3aOkyLLiup3BsCGV t D85pwDJis3M9PRKppZuyeAIgM jQspXP7pV7vWBdhndzai3xwgd tfIdsmo6oajz32zR06T83eQNo p VKFeLHNnDRKfABGaeSaicn4ui G9wIi8+EJHcqSY5iPK3kZ9sXS MoAdW8VYzkG771InWcbHRmDou j e3ajy5vogIg8ArA3IVKvceBya ErgWMU8n4GeQj43B03aPYsmPE SgJBXkMLHaATQrvSldag5dfW3 w Ii8+CXShnPP1tHI8fG6fPsGkQ qT6RVxsG559PhGqaMCpGqokS5 8zO2HazLY+HRBxDcc1DSPqdUp s HU9paYGaQBylXv9eCHG2ZaFcE oToLVezK7YwZMMgbgdmwwmxtJ I6PIBlNCUpcD48Vy3xuIraYVN w mWLJwE4sbjcbl4girtveQdHnU HJhJFl4ZDr3HOLhgMmoEiYmWJ Y3GlQ4LRC8uICsiL7soCjlupa g uS0kK5FdDXSiuzgtWc85mU1zX qZtHyP0ZFzzBfd+VEFOTkVSLC VFI50LUTMdITrgqZL+PHRkIHN 0 lLkpLMngGCXrvX2nXLSaI5g7I kVrFbT1ZZykP9GqNTFoooylJl 12bH7fIpBoLfA6CKgtO5GjsvX 6 XCUtyYYcZNshBFG6K70qc7Y8A MHnBYVmUZX1xXS9fV1xjNwyww ogbGVmdDsgdmVydGljYWwtYWx p R829AFEdmFpdWbTcVeR3LaA9Z Nn3T7LkTfv2WTIscNbkGY5gmP EzMXoyIk9hkXbduLufWH2nVDY p krugAUVzoE1vUUNxdOUgaLltI V9tMJKekehte948VnOhRTA1ZG OveUQiU0MzxI0vEiSjCGEbYLL w B1CjfSKuKYsqE565BCjwViY8S PJuyuFwI7MvFCIzzVvxLvF1d7 S0Od55MQPEAZClfkkyuEE+PHR k ZMM0uIzvCPirVCBeqJ4bMXRkN 1f9EwAhNuE9WFyhF0PwVMTyab nzJn19pF7jLwKxJcS8NNwoR5F v udW4DAUjhSVeCQsuGEL1C49mx 6I2SFIfVTBrSZK7pVQ0hN8daM lnbjogbGVmdDsgdmVydGljYWw t GYaeK882NXQqmCvhPn5wlUV3O 0UmKyi0MMFgyQpbEU5cqHWhLT obNv1otHxvpZloPV9eREMnmyb w XTMfqB2rMJPbgPGreRjbDE2aF XJjkpiag117TiXyFRK4HMHuaU VcW9TsiO8fEuCoXEEgBRKgP2H l wUOmIGpzJ500SNkuMmF8SNNed jRhH8QtBENykFbmUgB9x4U8Oi 4AvYGvNEApNI59BI45AX26P2U y PjwvdGFibGU+PHRhYmxlIHdpZ RPmTHtrNTWnCyVcbMhyLU3iVx 2wTBAyAYHknJrnsOBjYsLno3j s FDHqPRueBX8faCzuH4OncBB3X GUwe2f9Ug71G27aP1BvcFP+PG JkjXQ5qVU6gA6jCyTgEpL2AXi p K129NaKpqZGrSdfod3idn1tsm Vf1KmNbXCTfvxEqyReuCML7r4 QfLz31V71bTHvnJZSfCRLuRBW i ASZyaAndzr0oaX4eHp2+PGNvb SO9zZK8cD7bRmVlNkV3ABobJ2 39UsMosPCeYrpxQ21rH5PmyUD + BOWjGzj6PYNquBcyYE7ycAXuX GboXi6sPRC2YxLuSoNgYOcsF1 ZyPGNjnxzbcbzmjEP2TMYtGBS w cY95Cp4doNunUt0uHIAsCNA2S MCnfZWwG1FznD4pTjErVLKhCV YkY0GzbKPoDKnhO550FUdtShR 7 NUQiisMgW6KxOUKohXubZtC1r 1L7Pg2VpOwggJPyTU9sPsXdLG y3S8ZjBga3HIAtbLleHQ3frBK k DVkiRf8xpOrohCbjFP9eIBQrw ipau902XeXyk9dbGGZjcDLgNF hbEDF3B73qy3G7LAJgWZYvBEA 7 tHP4pG6hzUbthgosiPUvmRicj bMshYlwACldSQidM659PHOlpI szBfMKMdz5B7OgJww0IRJxnNj s JG7cxILeDDaeYf1wdZpdaOaxU V8dIGXazcfkq630GzFei1dpPF RzqGUrVJcdJMK0E70qc2H8WEM w TRUlPOL2lXH1aR7wqHprkvpio GVmdDsgdmVydGljYWwtYWxpZ2 72BXSxdUqjFt5BOlw6D5CgDip 0 LKXrrJfbRW5tqVGcRXtwVf4rs SjgePneXX9jWJCgaicmt065Jm Yrz2ehUYHqeWEtONwyIPF7U96 s r4A9AEXoZLJqVNG3hOM5xE1kf GlnbjogbGVmdDsgdmVydGljYW zbSDalC803RHDnvCvhHhCvdQH y OjwvdGQ+JP90gh28J7HjZosrA vi8MUUkNWV1nPH0vY1sCZCvLP itf4M6lMN6C4EcgdXtif5lc6y s YXBzZTog (more content not included)... Normal [facility] Multi-Wound Charton 02-27-20 Multi-Wound Chart [id number]#1.00CD:1 27 Normal [facility] Nursing Note - Woundon 02-26 Nursing Note - Wound [id number]#1.00CD:[address] [facility] Physician Orderon 02-26-2023 Physician Order [id number]#1.00CD:[address] [facility] Procedure - Woundon 02-27-20 Procedure - Wound [id number]#1.00CD:[address] [facility] Consent for Treatmenton 01-30 Consent for Treatment [id number]#1.00CD:[address] [facility] Correspondence - Woundon Correspondence - Wound [id number]#1.00CD:[address] [facility] Consent for Treatmenton 01-30 Consent for Treatment [id number]#1.00CD:[address] [facility] Multi-Wound Charton 02-19-20 Multi-Wound Chart [id number]#1.00CD:[address] [facility] Nursing Assessment - Woundon 02-18-2023 Nursing Assessment - Wound [id number]#1.00CD:[address] [facility] Nursing Note - Woundon 02-18 Nursing Note - Wound [id number]#1.00CD:[address] [facility] Physician Orderon 02-18-2023 Physician Order [id number]#1.00CD:[address] [facility] Procedure - Woundon 02-19-20 Procedure - Wound [id number]#1.00CD:[address] [facility] Progress Note - Woundon 03- Progress Note - Wound [id number]#1.00CD:[address] [facility] Coding Summary.on 02-17-2023 Coding Summary. CD:[id number] Gh0bW w+PGhlYWQ+MK4BNLFiD07zmYC ogQ1qM8PNDKmWMpedCIMYUAxO ZaXtpmIvVH6qzQIlAANc IC8+PX8xEMIqImrwiAUxh8E9q ZG0L04rqq2nPWivcGN2TCNhDx Fehsjph6pviZe9WMqqVxzmKrU t HXUcmH88OOS8gU10Go09eYRee PKrb3qkqNi7BwUgQJBbQHP5wB okCNbbq7QyXFBwO03kyNOqw6L 6 CWCdgJyveJQrFcUzyCW6cJ4wI Ktohzfyu3xkdvubPba8xx73qS Mys1P5cJT8Q1ZcivZ7CGJjoMS g HvdljRTDhX1bgsitm3ctjfzxU vZgYVUeYOw4XBw7ZPPgxQgiMe IdOQ52IAG5BTQfteQpW3RuBET s vUykGtW5b9Z2Wi0ES4SOUqqhF 1VNTUFSWTwvdGQ+AZ83wg23Z4 OnImoyCyk1EBLzJIZ2zID6iI9 n RRAjBGhyi6A2fGP1X1PgabMor k0pq5bwNPSyPGssK30crKOsw1 I7ICPziRP0IHQgyMsmPkPktN1 3 Oyc+QURrsCfnc1JwGdiac2wdx 7tzlXe1MltrQPJvuzRijUotZN R7a6YlWo8mDQWfcNS4wXG5rR7 i WwBiPhV9RLnrC043NvRzgABiV xgnE82lZ0NxkDO+WOXfVuh8WD UicZzxEM1oE5XlLMRuqufmaVW m yJztNB3pCSGkztdeCZMzrD9aH GKvU1u5ErPdZbA6FDklE8UuQY JtoggdRr74hF3eGaQzVdX2MOy u G1FvwpF4JFIxnYSbOKzbVOM4E 62mz2F3UDEqOLUoMIM4kHV9mO 1hbGlnbjogbGVmdDsgdmVydGl j TIetSTafP640SDRhrQzhCpStO GluZyBEYXRlOiAgMDMvMjAvMj AyMzwvdGQ+HPWjHUD6gWdoEVK n sWZvQVjlMx0rmZndjEfpZV4rH XCrgkotCCPktM8uZCNasIYqeY ruQL4cAXWvryiyu709NeKsWZX 0 UERnbTEsR1HcvX3sTcNjHNEtS WChJ9JjiEVkFXurA491LFioWh J3UYGrvyJdE0EkRLCkkGsaUjI 0 q8H7Fb4Ud5LexwqjL4QtgYXsJ tEkIbnoEOa5S1SuJlwxuCY+PC 29PIKkRD14IRg2NNV2jYqoOYv i IMMiR2HfvZ1sMcKaABXaDVBtH yc+PHRhYmxlIHdpZHRoPScxMD GgMwCmpKgwMZ0oJw9rFNMlSAL v vOvegDQlTxFtg5kmCFGkRMduT R5gaDrgB1JjjSC1CFPib9r4Tl 81M57yY1YnkXZ+EUTpvGK5hDK 0 iM6xShXaXbW6WIsqA951ThUxe UNnFvrnm5por2bdqMc0MsZ3QD BtikLkbKfjMXF8r1TpVe44F70 s IHdpZHRoPSIxNSUiIHZhbGlnb i9kdI6sVc4+QJSbbYG0aFC4nC 1bKvEiMwJ7HHspL577OeIncRG v Ajjmg0cqw4acmHd1VyEvRHUan qEuePjgDYQ4w6KiLk94B4QqsO wbf8CeGkf3ac31hYYyc4U1zAA 9 U2LnOHCqeyqobEVyoVonBM8iK UZlafmrFGHslU1nWEXmV0i7Wi YbSiU0LCciL6AvwcJ1JKMlqPC g IPFbrFTAyB2yyedrm3vrzdemD uJgOPUgSXa8SRd3OZHneYbfHm NbTNH9OxN7LPZ2yEKrbI2zlZm n pbbstI4gXai+UAA2wVOvrGVZT B6qSmvrfTX+UPZjCWI2lPzbLB hlVOSyjI2aZKCxA2c4BfLjChJ 1 UDtzG4JobbJ1HQMcrHZzPHBow NNBiR9asqsif0akdydmQzMxKN RnNTx5PNw0WJJhpYpmAvYhOVF 0 FhY6LKX0sPJymX4qrWzlvfeyh G9wOyc+RncdgHefSVV5PJe3S0 FpXxn6QPMxsAfsSG0jlKAeCYb u Gy8mwSgqgEhjCF4ePWUlsszxx 468KbIgd5awSZLxzMCsJNcqPA Z9E25ht5R7FDOzAPIdQOB8gAT 4 mV8egCxxylnhuUCcfAknfcJfv NqlEKelZIhqH226WNWwoIdqXm WrAWy3D9QbQmw7OPUhyZtzCZ7 n zJWnHNrnDs2mdGdvvKwhQO2nT AMkfdbco651NjOvr6omUKNrhV RbMNvlSRA2L05hj2F9GSBtNEH w AGH0uZQ3kP8qkKsqvjnqrBDda CxrndQdeWyiVXmlOJdgM691BN CjsElhKvQgfFl1Z9KmIvb7JFD z aGniGI4wjFYmRZwjVx4dpMmax QvxKQ2uTYBusxsrl096VhKar2 ujTREutPYgTLihVOO3G85cm8W 6 IXStGQQpXRU8jOG6qD4ijHeah jogbGVmdDsgdmVydGljYWwtYW tgP132KLYgbHyoFxGkxHoojyX g BXdfSGc8W6AjOkqnpAC+PC90Y RWxLL89xQOtkGVoo8pcuLi8Sq FbVKEcALI2xMzmQZyof7RrSJD t Z14nrLNlu1U5XWSarAcyeRUdN pPhjNE6lJ0zIMjigtopq2nwau ldOhtbs4hmfe94iS83S44sKOg p TAGfWATqYTCjRXVaxQlsgv6ur G9wIi8+NQHjtXM9bTP0tA3hLD YyWjT9WKtgV200PaRhdNOxRpt j d3pub1qfkMi1PbP5GGFkuoGdt IjiVCU1g5AxYa77V02rYTnxDX XgIYLzCEUrWNCqcDcnym9eqF3 w Ii8+VKFsxCU8mCB7bE6lZnRhP aI9LGdgI409FsPcsJIqDdhpI1 5oU6CfnMX+YVJlIob6IIIpfBi s BS8ecXUdMXbhJh1hFGB3OqRyY pFkQFjyS5BiNRIpgrudccoqkU T7ZXPiGWGcgL86Wu5ftZyvNEY w kMRQqZ4uevgbl1uzjafvZtHkY YRzLSe4RVw7SVMevZcsZdVnTD H2RhM4ZKU7fGMcdF4oxIubgwh g nV4hY5SnZVLqvfsuNo26qR6kG gNwEtW6MNwnCch+VEFOTkVSLC TNP96TEGUvNFyqpGA+PHRkIHN 0 dGbhELfbEKBgmU9oZWBbY5l6Y aMgNnE3EAgrY0HyAICtoihgOo 00pR0vMqFeTuD8JRnfT5ErooZ 6 EJMmdXUnCBgjOST8H42wu5Q3Z DWfQTQvOIS3lRG7iP1baQliyp ogbGVmdDsgdmVydGljYWwtYWx p Z982JUXvgKkpXaHhRsE9LyM5D Yr4K9UjMlg6BOZylYxfNM8mkW CjYVhvLr2ftCrygBkkCX3fWWX p zgiaQFQehK1iDJUfhIAnnQquK U6mQIRykngng902CmGwXKK9VZ LdkYHdG5GhfY6cGsXiKCIgQEK w X2BpyELtZJhdO186WRsuAuX1G PTjugFoP2IxAPZqiAypFxJ3n9 A2Us63ECBMOOYzxxclxKV+PHR k JCW8eNjzPTcbVEZlrS4pHGNyL 9h4SvHpPtQ8WXruW0NaSDXpks dnEz28aV5uMyTeUjC6XOgzM5V v hvN8JUCqfCStJZsbLAS9M49fv 2S6HATvIGSkEVJ1mBK6yG4bjC lnbjogbGVmdDsgdmVydGljYWw t OCbfF869QAZhwNpgCz9xxRZ7S 1VfLvr4IZLdkYgzYN7uuQWkXD ovWy3weWqchFrqUE1rFOCmxjr w MJLtkG6yOCUzjVNvgUyvXU8uU ZRyntzva550NcUyHTX4VNYizC ZlT8AuuE9nFtHsHFVgPIAdC2P l pRTiTEpwK344YZucPoR2KEJzh mDjN9IlRZBzvXhnBnT6s5T5Zq 9XuOHoCLDrRU79DR65OV31I2U y PjwvdGFibGU+PHRhYmxlIHdpZ CDoUOjhSAJcOoGorUgyEE0nFm 3yJNUtYYZhqFhvrWFtXdIfx0x s CCCtCJntMV3vqXrnH4QxvKQ8Q BKdj4f1Io28U22nF9PwiIW+PG JicGT5aHT0mY6sOaPfVcW6XJr p U230EwCffLNqYtjqp9oss2fko Dq9JyOeHMDsnmDsdWgeWZI1f3 HuMt44A09zNQjwSWCcWYTsKAE i POUlsJwlwu6ahY0gEv6+PGNvb OH8bEG3gJ7aKlJsSqJ3EZlxP7 04SfGawGDqBukcO74lW0KanGH + MERjThz2UJUtjCzyRM9rqLSpS LouZn2iKDK4FqYsHrSeVVzqA0 NuRECqsvaqhnbtmCL4YXNzAID w iT27Pk1zyFisMx5oTHKxVQI3O QYurQLdU9EufQ2yVwKnVQFsIE DhO0QfoFKdRAiaJ176VZhwJfF 7 KJCokwNuH1GqWZJelBiuFgC3o 1P1Yi8VfYsfnPTpZR2vIfJlTW v4I5VmAal3JQRqyYncET6igCM k OQbmOn2twJcjpFqzUB9kJTUpp rpii268LkFyo3dsOPLpyCSxOO jiYXF6X18tc7R8GLYzNLAkVTZ 7 kGG2tX5xcMuixjdkxCApjIkvi tJhuGggPBqmTXfoT859WASnjO iaZwALDdn4H6DsIss0NUCchAn s DA4wnHUrSFsoHn9zuRhlmJqaH Q4lIVHmiilaj305SjTnc7zmBX CsvVZrDHidGLR0O74hl9Q5MBH w RPRqYGK3zEY4vN0diXdoreorw GVmdDsgdmVydGljYWwtYWxpZ2 82ROHwyActXw1ZBpb2B9TdRdi 0 UJGivOnxUY2nzNNaRQdiFt8ju BqnbQpwGH8vXTVmnbrdj905Rk Zbp8tsUWCzlULaYWpkQYC6H53 s q0E0KKGwGWMmICO8rSK3aL0ug GlnbjogbGVmdDsgdmVydGljYW vyEJndZ316WLKbbLcwDzPuxYA y OjwvdGQ+YV24az25S3MpDuvkF qe0FXEpJUX4gUU2jZ3sEORqXM xxv5J7wVJ0G4VisdIkqv6ja0u s YXBz (more content not included)... [facility] Consent for Treatmenton 01-29 Consent for Treatment [id number]#1.00CD:[address] [facility] Multi-Wound Charton 02-12-20 Multi-Wound Chart [id number]#1.00CD:[address] [facility] Nursing Assessment - Woundon 02-11-2023 Nursing Assessment - Wound [id number]#1.00CD:[address] [facility] Nursing Note - Woundon 02-11 Nursing Note - Wound [id number]#1.00CD:[address] [facility] Physician Orderon 02-11-2023 Physician Order [id number]#1.00CD:[address] [facility] Procedure - Woundon 02-12-20 Procedure - Wound [id number]#1.00CD:[address] [facility] Progress Note - Woundon 01-29 Progress Note - Wound [id number]#1.00CD:[address] [facility] Coding Summary.on 02-10-2023 Coding Summary. CD:[id number] Gh0bW w+PGhlYWQ+ZV5TYLKqV39xbNX blP0kP0XDXPyATaplIIFIILnR LgIewpSfCY4jxQFqLVBw IC8+TU1aCAIeCsdbaLOfp1P4o NO7Q01foj7aJUdhjOH7LGNxVr Xfvwupa7zymJn3CCytRahjHaE t YIRwnI75LKX5mI00Cl48cCRhh SSnr9stgYi8IsBrBPDoXSX3iQ scNCycu6XhYZWuH13elJNoh2O 6 NYJcpPhhvSHiXzAhcUE3qE0eA Hdyuktts5tgynwoYkb2ni10cV Saz5W5wHW0H6HelkC6BCJfcMS g RdjjwLBZtM9wfrmak7izmbemG hEqAAGxYNy3BMq7SIIumKyvLd GqZU16ORB0VXRxurUnQ4AeLZH s sBbiDsC7u8F9Lc9NI6ORMybwT 1VNTUFSWTwvdGQ+CY34lj79P3 FbFrgoZqs0KMLeIYO1eXF0cX2 n ICIoSRwru3W7jBL1Y8CzfaDle u0gf3kyQNRjZFadC77twMIfj2 A9XKJrzZU1VTUanIvhUdXyzZ2 3 Oyc+MXBmkItcb3NaEexds7djy 0iohLp9ZmybXGGdfzUwdGocFG W9l5CaFu6xDWNhoLQ7bFF3yJ7 i VqTdStT5MHtbP803EeZtgXOmY mhsV07vI6RovOR+RFUlHkb9MY TxgMwhVP1kO2VmCAIhwuobjQU m bByyKW7kYNUwyoxoTLQziI6lS MQwC6u0PzFlKsL0OTykN9VbUR SgxweeRb29sO1aWiTgMoJ0HQk u U1HkizF7EDKevEIbUPjuTZE7F 18cn6A3IOPyNIUqCWE6pWT0tC 1hbGlnbjogbGVmdDsgdmVydGl j ZAqaYOwnE786GGQawXimZcEyE GluZyBEYXRlOiAgMDMvMTMvMj AyMzwvdGQ+MYNoLQN8wSpnDRE n bZAmTZjjGo4rhHaewTgoGZ9fS OEcyexlXFCxfW7sVHKevDAczZ idYB8sDCIanblsd323ZiUnQCN 0 ICJqvHVeK9UbiQ5vRnYeZLKpU RBcE0ZobCLmPCqnQ282XXwnRz D5GIIkteIxV3JfXKKzzDwbIuT 0 t7J0Sv8Wt3JbjrbyE9HugLJlZ jGzOwgcZAn0W3ArRevprHQ+PC 67YARjKD70WGa2FIO9wSjsXHl i SLBvQ2PxjV4rEwVwAVYnCPWwN yc+PHRhYmxlIHdpZHRoPScxMD PrBtZfzIqoCC5zHe5tAFPyFEL v sOastMUeVqUin0vcDQDuWPhaS H9zqZiyR2TksSG5IBAml5a9Wp 54I72jP3IevTZ+SBLsrDJ8jTM 0 oY6zWwWqUkK6TRhiT326AnDjc GTqJiuqa0pkr0nguIn5CiV9YE ZldkHcvRluCVW5w6CdKd65D46 s IHdpZHRoPSIxNSUiIHZhbGlnb d6kgB4rBc3+EVEmiAF0tYQ2bM 3gLnBkTgI0JKmcL052EuMsgUF v Tgwwj9nrs2fkbTo3SmGjHADza mSumGgwOBF5h3HuCc15A9TuiB fte7NxJin2ta29oSOgh8L0qMT 9 E3HpBHWlnvclwHFgpGytLP5pB GKkratmTEKasY1lQSVuD6h9Xq ZtOqM3TBbeK6ZblpC5FXJxqCD g OJHiaRVYyH9lqqkyf1uarpnvF xDqYQQjEBm8BKo7NXAnaMyrKn WsPHV8KoC2XLD9uJWimV1xgOt n nrhrhK4sDas+UKP7mFPxkAOMS J0hRljxnOE+QAVoBWU9eOtoAK nyGSWknI8oMOUxY4r6JnYdGnQ 1 XZwfC9ZbwjE7ZOMmvHZwCUWfk OQRvE3dswjrz3esgigxIgKnHW JzYIm3AGw3RCDxaEyxEhXfSSE 0 PxG7USQ8cDRygW6wtMjkaacmm G9wOyc+StrihCffOQN7VGk2M3 TrPgw7IFBodRasPS8cjEXbEGh u Ex2mxIwojTlxAH1sWXMdaygyk 440KeZsk3tgMEDfeTUzLSibZT A8C18hm1O4FHMfZQOzDRW2eTJ 4 dB6pfVgfacoxaISvcJzohdDhf ZdrYUuaFGryE922WYDwtKegIk KvNLw3A2CzZnr8BRSbdGsqAR4 n iXRpGGlwPm7yqEptnRgrZI8gB VEifdcse065FxTjw3vmMWYeiH SoTYqbVRX9K76ft6G3TQFlLXA w SCT8nQZ5yU7rmXbzuteysXYmr YnbvoQeyGmdRHvrXWzsK469NI ZrxOzvAsUjpNo2N6DlJda5SMR z bMfiXV8qvDTjRTxkWp7xfPqdb YkwPX5mPYZmhetky360BhTpe3 pyYMQxhHIyANwgSRI4S39xr3F 6 LXIaZMHzBUS5xRM6yB3ojFklw jogbGVmdDsgdmVydGljYWwtYW ctN549HWJboBuqWgInjPepfkK g HDeeRHl1U0TtHaqlrYV+PC90Y VInYV96gQIouDZsk8gvlLs2Hu JyFVXrNRW0oIysCHpgw2AbNXF t N79eqPFtf8Y8JZQbiQxzxCYoO uHkoIY9eL1hUQxnotnmd3pgog xlAjtvg1sdei68kO34H83yMDs p FVKbTURtTTMbHZRstKvxht5md G9wIi8+UNMvbYV3lQK7hN6yGC MrFiQ4KEryN274TcZaeHOfPeg j t1umm9vrsOk3DfH3RDKueiXnw KwkYRV5c3ZaOu71B09zEJpeRX PqWCEhZSIvJPUziMilez3aoG8 w Ii8+HAShxDW2uAC2cL8iUlTkU mO0YGvpX438GuQzzRTxDksmD6 6cG6WqzGJ+GYJuCbh5VLTfwJl s QW2hhHYxJHvmCn8gISU0OeTnC kJxRRcnB8LuQAMocwzovpkgmJ C6LWMxIMRlwK32Yj4tmFfjMDU w qODHiT8gkewlg4vlseqrHxVcW TAoWRl5AKv4QKWhbIsqKuLjEA N8EeK5MCM8hICdrC2jiKmgzyn g gR4lX2HaLWNqvtdsOg02iM9uG dXlIeT5AKorUmn+VEFOTkVSLC CJY64XGVNvYYfixHG+PHRkIHN 0 tVemLKbxERKmnV8wOFNmY4l3H uRqQaD2LEtcN6RiRQHarjhrGv 21qL3tPvYmQdB9PTtqE5VpkqM 6 KVIvnWByDByvROW7W40eh9A6E UDgYWAgQLX0eUW1oU8rnGkgtc ogbGVmdDsgdmVydGljYWwtYWx p E609YTZoaPtvMtCcKsF8PmA4Q Ik0W3EuIhn5RIYihXtzXK4wcJ SrEClnLr5xiOgivPinEY4oNHS p rwsdRJNltH3pULVieSSmuRzqY K0zJLPvmayyr287XoVsHZG9NU TquVAcR2EvtY2lWqPaHXZhSDJ w O5KsdRSzIVgwH463XXkpAlD6Y DSzhvKuQ5UgFEDtmCetWmF9x2 Z4Dz73WMSAHBFrrbwchTE+PHR k GSB0iOoqXLipZIEhaM0dBWZgG 5z6LcEoXpI7AMudY8EqIOBtiq wwOo27dX0cCaEeEhR1SEccL4I v caL3LOMogWDsFGveGHH0B04pt 2T4KLHgOFIwVBA5nKC7bW6ibZ lnbjogbGVmdDsgdmVydGljYWw t GVsaG234DOCmfGtvBe9dkAC5F 2LsPhh2GKJnaWwlKV3orXKzSH uoJw0tsSofjIpkGR8wWGSuwbj w YBRihG6uGVCcaTAnwTemXW0fF JVufixjt761HfFuRMW0PVRejB HuL7GadX2kHeFwWNUhYOEiC4O l iVQcMJesY599ASgqGlE8LMWvo wTmX6LuMNTrpQkwKiG7h0M3Yx 1ZzWDoBNCuGQ20UD53MQ59U1W y PjwvdGFibGU+PHRhYmxlIHdpZ NKwPTsrOMJiOuLxmNuaAO9cYf 6cWYUySFAikGdkqNWcTeBku3u s UHWbVCokWU2ktWyfZ0RxiYI6T XFeo9f6Wu98H66iW7YpxBH+PG GwoEH8gZC9eZ0uFoCxJgF6CMk p M418YoOmqULsIrajb9tzf3bfl Zq2PlExXMWlzzAyfJsxGZD5b3 WgYv57H33nCBxpLZRrSZRvPHK i HOPirIwhmo6ynF1aGl4+PGNvb FA0jVL3yP7jFgWfFzO8REwiD4 51IbWwzPOzJomvS78hI6RfdTS + VCFnOnd6QFAowYinHO6ztGEoK UkcEx9lMMS6JnLnLkQqXKfkQ4 ZfPMRioykfzhtufKN3PKPzHAS w gO69Fz4peMvySk0iEOGlESU8N HVfzZHpK4LtsR8aEyBiEFAlVU DlY9AudBTdCZzrZ951OAbnDzQ 7 FCRsekLzG0HzEDJuyPeeRdM5u 9J0Qe8ZqVpdmKJtHZ2uXzOzGF w9B1PyRee0MORynOxqTT9ptSH k YDotFr0duYpadMwkHY5iHVSzc wdnd361FwLtr9inILCstGIgVF hzRXE1N10sn4E0IGEwKQZgYTJ 7 dNQ1yC1ruFeosxfsdVIfrTqnp nGglUisXNpnFNcdE004JSBsgE lbZaGHWuz2C0VvUpj9XTTskJe s IU0pzJVpAVknNl2tvChvyMzsO O8cHQWxhtene546PvQyh5wzZP QikQMnNXnqKTF7C65xh1S2OIS w LKIyIEA9nGI8aY7ukFdwmxnad GVmdDsgdmVydGljYWwtYWxpZ2 57PXGkfRbtWa3RXzw3N1KvXoi 0 BOBnfLawWS2rbIVtVJcyUv2yu RvscFozRX7fZJDqoxnrx195Ff Mtu5wjRPPwyRKyNBbsFCT5D85 s g8M0OQArZMTeIZA7tSH4tL0fs GlnbjogbGVmdDsgdmVydGljYW ldJCijQ939FIKjoRczIcZmvKN y OjwvdGQ+DU87vx47H4ZcByxhI lz2UZSmEKB3iAV3cW3jBWRnXQ afz3E8oQO2U4MuanQhdy1pf2w s YXBz (more content not included)... Normal [facility] Procedure - Woundon 02-07-20 Procedure - Wound [id number]#2.00CD:[address] [facility] Consent for Procedure/Surger yon 02-05-2023 Consent for Procedure/Surgery [id number]#1.00CD:[address] [facility] Nursing Assessment - Woundon 02-05-2023 Nursing Assessment - Wound [id number]#1.00CD:[address] [facility] Nursing Note - Woundon 02-05 Nursing Note - Wound [id number]#1.00CD:[address] [facility] Progress Note - Woundon Progress Note - Wound [id number]#2.00CD:[address] [facility] Coding Summary.on 02-04-2023 Coding Summary. CD:[id number] Gh0bW w+PGhlYWQ+CL9WQJVfV96xzWZ mgK7OJ7wWKQ7MWIJENGKRKX2U PP4kiZX5ZSvmJ4HqxuAr TnedsOOeVI20TAt3XLM9vEpzZ BscuG1rvXAgB1b0OuUuZA92hL 61FSsrASCbPwO7FwLymiiscDQ y J7liRgSihPEtTor+PHRhYmxlI HdpZHRoPScxMDAlJyBzdHlsZT 9qYc2dNNVyITBudIxyqARtGmO j p5aaCIRlRXtaGL3jcAcsE7Glj KH2DTPzf5m4Db66qRB+PHRkIH R5yKyzICfbp849SaKgh6urAXN 3 aCBsSAfpDVB1B81vf3H1CTXjO AUtGQR5lPN9gI7kfIbdjeqaP9 ApbRVoSeJ7YKM8pKXblG1zyTl n fpnlcC9xXdn+B39UPW8TWKKJJ J6URsr2P0JgSksqsNQ+PC90YW JeYS23sTMgoEPew3wmaHi6PlI w RVKkPZZ7qGhbQPmrj8XxNDLeE 68ufZShd9I1SQBtnFizmVNnUb IyaPB9rS9aRRvwejhlo6fpvyv n Qiifh9wusb31dV36G30dGAffJ SQhBSU9YPZnSGZfjTlxny0amV 9wIi8+FYsyr6rfp0aezEt0PmS w NHXfefGnlLdgSTF9c7OfWa32L 9CmnBmhr3XzYna5uj73bIVff9 R4tWW9NEgjVPCocW9aRWdsHpW 6 QLGaTyYefM13jPBhHZbcAq8qp HxccFdcTO0kWMXdhedaTJNedU 3iOARofXPthJcqJW9gXSTthdu m x065YaObJHR5VXNcvXBwC7Xcj M8uXvXnABVcVTTiA2QytQAlLL kuD249YOksJwU4GQRhweScR3C s DKCsjNyuWfT5k3W8Rh8Ik5Lta mmsFVP7ZMhfESPrLwG2LyOoBg U6D4KnXnt9EUPdyEulME8uI4H h GLHyzreztwljyWX5EYXmXMUzl W38sOFaKWjtQo8nb5B5l308AO LfLWRryP96Ri3zcJfsNTYfpHZ U rI3nowucz8fyhtlzCbUyESNeC Bj6LMr2MQOncYksPiUwHWQ8Pc U2IAE0hLDdaZ4rqVqovvoeeI4 w Oyc+Y32xlT2aOYK6VWQ1xvxaO NJxtuVvKL69KZ16L3KeRjlpjN FibGU+NNFgzmDutNteWN7iFsY j b3kup6EzMIpdJ9OcBWVwYEooQ zw4UAFdPDK2qOF7xB1wNNYwPK pog0J7zPQ3O5KileRvbv0ff8j s AQDhLItrJ87veUIlc8M8SNQoq OE0GHDkcSjrCuSkcO54Mxy+PG BazYzei0QeNjhsm6dyx6lnlUi 9 IrSmHHFllvSnpCmwCQE2i8MqO r21A09pQPmgVMCtQUEjKMYgTE OnfJqmoi9feM1gWz4+PGNvbCB 3 wSE3mZ3pITYqYtC0TNobP086T aBtxXLmHexvo9dsl2nxrJq7Im MoTEUdgxRihEayKTS4x0JnPi0 8 V26hNEovDFPrDISqPWHpBWXhf Tpnfl3lhM0qEx3+PZ1nn2ilcg 75kV11oYC+NAQhKBJ4tIpiNRm w HPKrgT7rBBprWbB7YYXyCqKtf H01hBFgSGqcNo5jwQflrAxbBN 1qXKDcwfrld117KnAnn3mrTQN w cARrQZukMNO2E11sr3N1HAJiO UAiTJI3fCK5vB5tzFzkbfbsxV RiwMclexTorScyKYudIQfeD60 6 IHRvcDsnPlBhdGllbnQgTmFtZ Qr3F6XjIwi5FQTnmIkoVK0giS QkWMwwLf7chConvGwuTS3yZZD p oshqv220MiNkm4ffODQzjZZkI RilTMI1I37de9E5GJKrYGXcMO D1fLA7hO4kmQfevxglsROrtZm g gfPtvDbqKSinXXcoY248FKFde BryTtLgcdSlTFWmzRS3ZL92DU 17tTYma9C1qZX2K9FaIMYtmzb t huzynKO4HSCbHTUwwT31Xx1gb FwkJq4cFCPqTZH8DGMwyNRhY6 WrrE5eYsGeFLNsIEVsR1CwrAV t KQbeG088RFtjKgH6UBRncaDyT 9NcMVDlaXiwVfF3l4O2Yi9QK8 U3DM83XL63wYLai4C2pMW1O9Q h FPWfxndgzmmxnMK5WCOnJWRkv J58Pa7oiUktEh6xMIYbQIY1TQ FcyULkK2QspC3iZwIsKYMuCZR w K6FybXTnJGltZ641SNciTvZ1S BPegeWgR0PtPCFpeFyfHvH6d6 M1Dr1ODUl1ZJ57KA93lFJxe3E 5 eFM5Z3TnWDWqywoyanteqKW8U TXdVFCnyF54Bc9okLztRu5iHU ZiCXL1ABZooKFtV8NscZ2tXaJ j LKVlOAJsP6CkxTOlSCtfP948J BjlGmS7SMFllnVcR6JxHPTqjV lqTxE7x4E2Jz7USBKbVA07HDI 5 vVO3AJ38JF26N5YsKxsogWCks +PHRhYmxlIHdpZHRoPScxMD TkNjBwqYpoMM0lNg1yYAJvRFM v qQiydKGcZzNjb5lcPBHvZEvbO C0toPyyB5KfcOX6EXEzh6o3Gt 69S36lV9HbwAZ+PJWvqEL5qZM 0 rJ7lBtZzHxK9DMnwY774PqKkz DWlPaifd9nmq1yijRp6YwN0RO IcxeLkfIoqWWF4k9VlHl95I75 s IHdpZHRoPSIxNSUiIHZhbGlnb b8coI5eUh7+ORLdyWG7vSI8tG 6kQgRsFqJ9UMvjV289ArNitEY v Quzgm0tre7dswPq7JlPaPAKpp pHxeGplDSS9u1OfKy45H8QtkS msn5BrJdv0ar27yWVlt9W9wMD 9 B6YcWBTodltqeNUlzOzjEZ9mC VAfuwnvSINbxN7bWWUmR6x0Ep JqPfS3EXimU8HcxtI4QPLmtKO g UBqhZFL2W75li3W7KOZfPMJrH RI0cAN9pG8kfIjascqpcYNkoL evjeVchQcqAZieWFhwG471EHQ v dEccGGLjnU1xZYEjgSShpJofE N9pSNIqtwybHtAEBb0VGxcbAO 2ONHwCRHa7V1RvQxm4SFShmZg s MM8frQQcSVbuZv7bbHymkPfpE C5bHUVczeraLHVadH6rDGDpbE ZbwAubEC4aNOGtdlima066VlO x JUW3DWRksPKqM4FstS9iIuAyY KCiRYZxR2TaeQJrFPfzW201GO jqPzY7CIAkfvGqM6OpEBTryYr u DxV5j4G3Ib2gMj9fOC8fIHP6Q T57LK67iSHfk3E2vZJ3T9ZxUL RhlnpqmwwvgDX3JSQsVMAczP8 7 cYEfVVniAq6iz8X6u717VBDzI HKfuV08Qg5hrBylNYZaeCIEzT 0ceieqz6buazodXjMiJHXkGVj 0 OGp8DXMckOfjDrToHGK2AoM2O AE8oNTxlP8vfWtqarmmtC2lUk c+KzPjPNOzfoP8I0JaCae1RRV z yBsuAX5zcWUdBVreGd3cuWdqd YchSD8lCUOdxrotDDRinC4pBU QuzTVwuYwjHZ2dBYCwxoxjn50 0 PkTsYRG9NYPntPOzF7XqzJ2oM iPpKBUrTASeJ2FjnGRsKUryA8 91RFyiEhQ1JGCqoeWsI8UuLAD s uKbhBtY4a5W3Eo2SALiqBP48T T82wCZfv5R3oTR2I0OxBCCszx wdrgviiJX4YYEjXAAcbR19gAM k QTmlFg0sy9X1z930DASvZGMns R95Iu8wbLheCAEceWRTqA9fsq hgi1nopmyfMwZmALPoMJb2BBh 0 TIHzyLuyGbQhWNC9JcG7FBF9b UCvmY5jgLjhnlbneQ5nFqd+T3 H3xLQ3aAMtaSybaRY+ZI56xh8 8 V1BbBzluSqw7SOItQFU4gEZ4x U1wUQNqBJwje6E1gFF3R7Yxjq Oams8oy1idQDJcYAvpG81cyLY w j6Z3MBOxkSJ5VLXqkBivZcKnc G93Oyc+KXHerLdha8DjAdpzm2 xsq0peeTf2EqRqQZXpojYmxMy u GKQ2v6NsZf65J77vICiiKUKjF QSbBRHhPOAtvHshsg7wsG9uBd 8+YDIxxEI6dYZ1tO4zQjItNxN 2 PVitR868SpDstFQzVjrvk9uai 5grrGf3BkWiSTDzokHgjYmnDD Z5q8QkYu78E6XosRfop1PqAeh 0 mi17fZZrd0S9mMG6Q4HgVAOsz eipiKQjxHwmBE0mKFAjbxgxCH HtqL0vEJTxK1d7IcJrRaL1DEd u E0BmpqR0BPGkfMHuYCAamVWVt V6hkokkn6oyrkewVaOwJCAnMU v4CPd1RVMyiMqpZvCyYSR7GfN 2 ZHG3lQBeaY5tyNhobmrinI1wY yc+AHv6b3zolNWiNN4vvSE9DH 74RA57bFWkj2X4oZH1W3SeJKG p qxehjirspAY7SCSzFQUjmZ67L g4qaCynSk6vBGKwBDQ7QUUjtI UnA0DskO7zKnLmWRClYQBsY2C l xIMgIIuvK595SJhyYqJ4YPQul jYgD0VrQTIjcUaqMmC3e6P8Ju 1ZQF68MD07ZQ87bDHek5Z3qAR 9 D8TnCRZwwqnhlhyeoXR5ELTtE GKnvU89Be6ywLpaHn0tSYQrGX V9KFPnqSGnF4QqfP9aPaGxGZK w ZLViL9SwwEThUIidM607AIaqX yB3CEOxkzZmA2EgUPKumUpdJn T6o1T1La3TXa61CB80LK63oWH g b2L4oWR4Q2UfZBAxdgthsipac VB2FMFeMPZskZ01Mt4kwPwlQo 0eQTOmOGR4XOFzkRYfL4XxyH2 y AmTjLZWkIRMbX2JrpWEpIMrdO 374TTrhWmQ5TCIpgbWxP6ZyXY ZmxUjbPnU7o6O1No2XNRxxigu 8 Z9GrDehmbXU+EQ92QWKxHT33b WBosFAxz3vxgXm8LqTvNSJnCB W1iBimQXryo9VdLFWiR29lpEQ w c2U6 (more content not included)... Normal [facility] Coding Summary. CD:[id number] Gh0bW w+PGhlYWQ+RA1XLSGeU49vcXU srF3FE1uBED4ZQUJTRJXJJP2Z RD8kpCG7KZzeT8AvhhTy RdmszAKeBW44EFa6HFI6aXtcM RkbcV4sbCEbQ3f6AwMtMF03bJ 08DKpiVGErCiE4ZxHnjpcbkSX y G2fwYlSxxDZyAwl+PHRhYmxlI HdpZHRoPScxMDAlJyBzdHlsZT 0nVz0dRZCtOMToiKjnkSXvRzL j l5smGLPbXBqjRG4elOjcN3Tmm FH1FEBof9x9Id61yZF+PHRkIH S1bXltRGket364GzDvj8baXDM 3 bLAiNZseWWF6A42mk0H8LAWvH KEhIPK9wDK4yJ5suMecoxohU8 KerNFyYtI9MFL0jQYdpR7kkAd n waukrM9pZzk+W17QGU6QLWFGL N3WEtx8I5JaQheraMQ+PC90YW OaAH92uSTgsRAjl6lxeCt7IzS w GPWkOCC3cVekKGcdt9WwXTScU 42ssTKtj2I3OUNccFppvIQlKe KouVL9hU7lPFroutozi1bpgxv n Bggtl0zjxr60kG96W68aNXnnZ DAdIWA9NMGqLAZcxRqscp3hwK 9wIi8+GGwsi4dam3xpqNe8QcB w ZAWuvzTanWzsIPK5g5FnXt51M 9JkrTykr6MmJud4un71dVOtw0 P3sSS5KDxdXXZigO0jMBkhXhI 6 DMRdMdKspY33eQZmXYqzYc8hn HvovPqkQP1mPHSymdhdFQBlkS 6jWPDknRAefOqhNV4iCDWynrh m e093OeIcOTV6EHDdfVGjQ2Mpd V1eSdDvJRPuTYPjN9KusMHlVA yrY173OGxnBnS8FFLaxtNsR8Y s GPFmfTlkDfA9n4Q1Mz5Qg8Udf tsiAWJ2TLfoOWGaYmY6QwDsFo V4I4OaWvb6CVLjgKbjIT2vT2L h JLGvccnlxrghlXW7UTLsRFNli Z14cBSuDRdzJp0sc2A4p283NX ZcXXLlbC57Iw1sfSqxIRVawRI U xB4ezofdg2ikhkdeOwOgMNBcZ Sk0TAs6YYRnvKllWtFvXBV2Ej L3BXV3hBPyhM1daXttkmtnmR7 w Oyc+U32xnT8zBOR4MSH7fgrbQ BFezfKgRP80LE59Z0KaSzhytN FibGU+KOIbmoEdcXcvHA5vAzC j r5ceo1UaKZzzF7MtQXRfXKihL iz5QZCwNUO8uDU4fZ9wOTBzZI fgy1T4rQH6F2TjzcEscn4tz9c s NBByNTleA79sxPYai2T8OEHce LA0FMGfpCrdRiKcsP32Cva+PG WzjNtzq7TgOfbar8wjl5kvhJe 9 RxXkDYWkbiJbnEedGAT8e6MwU s78Y42oBTaiNFTfNMGlFDEjIA YyzOzrtk8jgY3kTa4+PGNvbCB 3 zBF0xS8tNNTtUkA3YSnuL110I iMyiCCeDolmx1ctu0yhgTl6Ga DeCYGmbhJxlOyaDRN6x8OyOn8 8 C51kGPecCLTqAHVpZPXpPURkv Hmhtt3tcL0tNw1+VF3xj9onap 96wS03yUE+RASuIRS1iFipGRe w QUKioW4xHIugMkG5QTLdKvFix F11iEWeSVaxCh8ozSlziDhdSH 5eFWKfwoxmt163ZsPql3jtHYY w vDJbVCflGWF9P30gf8B2QRDaC HMuTXU8dGB1mH9vdAozvvekqK VebXehpmVzsZpaWUdoSXshW44 6 IHRvcDsnPlBhdGllbnQgTmFtZ Mo1Z1WtWbm0RITrgQmqQE5wfC UsXMoxUe0yhWxqlVweBH2eTUR p thaah545XcNgx2vbSEWzrHYjT GoqODD9X32ay4Q2VXIcYERbTQ V2jSA2tR5njZuejbcajDBhrUm g mhKvuZinGUatMLpuV756ABQmm MtvBeHrlxUaTAVpaBI5HR00KG 24sQXuz8N6fGW3J0ZwSPNdtbn t qcfeaLR7DYFpUFNlxR63Hv7db MlhHz5cIOVeGLV3PIHdiHErR5 EneT5rWwNnIVVhJFEgN1ClwXN t TMviJ450KBbeXhG6UUKeymOcY 7OsYDBxbPopXlM5x2B0Ws5YI2 U2CU51ZG14vUPzg0K8yMQ4G0Y h AWKhagdceftevHX7EYOtCAFfe I52Dr8bqPnwXq9bRZTgVHU8NY WdyWDdH8JvhN6vWgJaGWSnPDO w S4KadOLlRHgzU359LMhbAxO0N JLwpuZrY5SzFSOysSicDyO1r5 J3El4TKHl8WZ53RD43xIQch1N 5 pHD9N6GsFJWnvjaxqtceaVB6Z TJtXWFuqF14Ur6nbJcfXh8aSO DuIUN3DJLgzFPwU0WzgP7vNpC j SBNvUHQsD0XykSYbXCovL712S DooQuI9MKJujkQlG6OiSDXuzC uzFbY5h6J1Pr9JHUCpVV97ZKP 5 jDT3DE45VT03J2AsMcygwGLyp +PHRhYmxlIHdpZHRoPScxMD SzOmMwzShbDR5mCv8dMNUzZGX v uHcaeRCoUgBuo7gsXZZlKPanL Z4vjXnkU4VkyER9YYNhq4w0Wd 31B53pT9FvoKH+GSQlbSJ8qOW 0 aI5lLaIdNzW1XLzqF452WeIbe FHdMbtqo0adc9jvqGz3CwR5CI BioiFtcAkyXGP5d2QkWt18A06 s IHdpZHRoPSIxNSUiIHZhbGlnb o4swN3tPk8+AEVseCC2cSO0fN 6sXyMuHwM8HUtdU254MqIjmIO v Dktdv2cpn5czyGv7NoSuPRJqo xPtjWsfEIE8v3YkOd02T0VcyE gjf1XzRmi8au56bATpq3R3aLH 9 I1KuJEDfblgsuRAtvHxxUB3kT MBnqpzwDPVflY9kUXDfW8r6Mm IcYwS0MUggE4DpjlF2KRFruZG g MAqmOVF4B88pj8F9WESgXPBaW EO9uSO1kA7ttMifzptqqAMjmO jlbdPzpWbnDLboOIzhD635SQZ v eJynROSvrC3oPMKkdNWxdYqfI W4iBCQfwklyBePYOm8GQzubRI 3HQTuAAGn3X5YrZap3OAYgmYo s DX8liLQeFKymMm0izQejtAfuE Z4lQVNnrcntDOSjsM2qBARsiF JtvQnbRU2bYUXgltgzj864CyB x ZMB3TJNnaEGkC1GewQ3sTxVpI ZXbYVKaO1YpyZJyYOmoT491WJ oyRtR8LNBqrtFdB7IjOQYfyKq u UoC5h8C5Tr7bYb3eSL2eWLF5N C01QN27wCJng9Y0pII1A8YeJB MjqnshabaalVI4BZNoQLPkzH6 7 iQFlVHwpKk8mw6U5c388ILSeI FRygE98Kc2luJfpOADsxJJZnW 2kzseak9ofbgbcZoGnFVPnPMv 0 MGy1CZIqcQhnNqFrUWQ2YdI8Q GQ4zOFepV2vtTimbtqrdV5nKk c+PfKjSNMnlgL5I7BgOeh0QNN z gCmkVL9ddMSwODtgDn0xzNyra YtkYF4aIKYrjrcuDTXkmW6rII VghOHtwYxoJN4fANXwqoepj52 0 LfVsEBV5VLPjtMQpS3LkdB9qL gWkKDUiHCQxY7DnsVQhYSljE1 37SImjJuW9VQKhpfWlE0NeZYJ s iDodHpA0s2L3Oq4KCTslRE39W P51dCYpm3J6sRB4P1XlMWIfid fklohncWV1HIUtXFDitW03jLZ k XYdrSk0xf8S2q251SANzVQZfk N43Jq6ceBqsWBMttKGBtX1fsz tcu8lgadcfYsDcLPEmVJo8MGu 0 IPOdpHydNxRmQVH7QjT1ZAO9c SShxH8gvWdnrphdzL4tYun+T3 R0iKO2uWUcsFpnxBW+TO21hl4 8 Q9OwRaeqGqg0AMOpMJN7sGI2t E5rNJDaFJhmq5C2lCW0N1Tbjo Bpwl0ba4uyGYCiDDwoK03wlIJ w t1N4DJTjrRG1NXHpyXueLhTga G93Oyc+SVIgkNokw9FlHbsfg4 oha1pkkJn7FuFhJCNopzGvdOw u NWR8m7HzMd91G71dTFxuFQGrO KPuMIGvBKCwjEigfz3yzM1eNz 8+TXXqwQS0aBR3yZ4hInXxJyL 2 AAnqT496YeUhrXHaZfxun0egr 0birKe6UwRqUOLlgvJyyLzrKX N0k8ScOc67G8DpaQtgg9BeEvz 0 vs62sFWqj5L8sTS0Q1HmTGDqe bxorDYgxXfjMP8xIRKjaoocFL IunZ7fUGEtC5v1EcVjYtC3WDw u T6AyuwH1QLPueZEaFCIagAITk L5ejprfh1dfteshAeNcSGSgZA h5SZj3OATfpYyqNmInKGB6UcP 2 DTV9kUSkcG4ggHcadnacvO4wD yc+GQz3f9diuWAaCA3qgXW0WA 69PX97kDDwn5E8aDS4J0EvKFV p gdgxhqueaEU8DQZdZVHwwL18V h1pbWkkNd7cKXKeTKR0NXYqyV AuI1QbjH0qLkTxEDFsOUVeF6Y l mJPlEBlmA622YHhaXtF2EAKuz hKkG1ShCQKxpZepZnM3j3I8Sy 5CJC50RO07NA60hZSxc8Y1qHZ 9 L4ZvFERpvvhxxvswkXQ7XIWtS NNlwJ88Js4keRlvAj8eLVFvCB A8GMRblZHdZ2OgnT7mIwLgWNX w GVZcR8QorDYbYVhiC698RGvdX qO9KMSsivYrP7QmRXXspTenYt H5h6I3Hi7LAo74RX47WA76tMP g b2G0zVG2J5OdZLKfjdflqqgip JH8NQPgPRTdwX78Bp7cmEumBa 7nIMPvXLU8NDJkwZHiF4CboW3 y NrWoCZRzODGfX7KggTXlSCldX 226RRqdYjH9EKJslhCaZ9RbRW PksUxsAaI6o2S4Qr6VORvcyez 8 N0BaTobphLT+YL20GAFlIT77r QEmzOWgn3uovLu5HmSjYBCnNH Y9eUeoZNuln3YvQZOtK52gtQI w c2U6 (more content not included)... Normal [facility] Consent for Treatmenton Consent for Treatment [id number]#1.00CD:12 7 Normal [facility] Physician Orderon 02-04-2023 Physician Order [id number]#1.00CD:1 27 Normal [facility] BMPon 01-28-2023 Anion gap [Moles/Vol] 12 mmol/L Normal 6-16 [facility] Comment on above: Performed By: #### 1 [id number], 8056280, 3848835 ####[facility] [address] [place] [address] Calcium [Mass/Vol] 9.2 mg/dL Normal 8.9-11.1 [facility] Comment on above: Performed By: #### 1 [id number], 5329125, 1844570 ####[facility] [address] [place] [address] Chloride [Moles/Vol] 100 mmol/L Low 101-111 [facility] Comment on above: Performed By: #### 1 [id number], 7017952, 7858818 ####[facility] [address] [place] [address] CO2 [Moles/Vol] 30 mmol/L Normal 21-31 [facility] Comment on above: Performed By: #### 1 [id number], 3197214, 5374940 ####[facility] [address] [place] [address] Creatinine [Mass/Vol] 0.8 mg/dL Normal 0.5-1.3 [facility] Comment on above: Performed By: #### 1 [id number], 1413505, 2248518 ####[facility] [address] [place] [address] Glucose [Mass/Vol] 96 mg/dL Normal 55-199 [facility] Comment on above: Result Comment: If t his glucose result represents a fasting glucose, interpretation should refer to the following reference range: 55-99 mg/dL Performed By: #### 1 [id number], 0962523, 0606857 ####[facility] [address] [place] [address] Potassium [Moles/Vol] 3.6 mmol/L Normal 3.5-5.3 [facility] Comment on above: Performed By: #### 1 0197076, 2539151, 4083239 ####[facility] [address] [place] [address] Sodium [Moles/Vol] 138 mmol/L Normal 135-145 [facility] Comment on above: Performed By: #### 1 5749347, 9321843, 9202193 ####[facility] [address] [place] [address] Urea nitrogen [Mass/Vol] 21 mg/dL Normal 5-21 [facility] Comment on above: Performed By: #### 1 8151803, 8731630, 7302733 ####[facility] [address] [place] [address] Urea nitrogen/Creatinine [Mass ratio] 26 No Units High 10-20 [facility] Comment on above: Performed By: #### 1 1906591, 1663827, 4666854 ####[facility] [address] [place] [address] CBC w/Indiceson 01-28-2023 Erythrocyte distribution width (RBC) [Ratio] 14.7 % High 10.9-14.2 [facility] Comment on above: Performed By: #### 1 1470148, 9448830, 9197745 ####[facility] [address] [place] [address] Hematocrit (Bld) [Volume fraction] 36.3 % Low 37.7-49.0 [facility] Comment on above: Performed By: #### 1 2757495, 8101102, 5742398 ####[address] [address] Hemoglobin (Bld) [Mass/Vol] 12.0 g/dL Low 13.5-17.5 [facility] Comment on above: Performed By: #### 1 0976590, 3701003, 5150625 ####[address] [address] MCH (RBC) [Entitic mass] 28.6 pg Normal 27.0-34.0 [facility] Comment on above: Performed By: #### 1 8934553, 0406583, 2821896 ####[address] [address] MCHC (RBC) [Mass/Vol] 33.1 g/dL Normal 31.4-36.0 [facility] Comment on above: Performed By: #### 1 0842137, 6082533, 2533071 ####[address] [address] MCV (RBC) [Entitic vol] 86.3 fL Normal 80.0-100.0 [facility] Comment on above: Performed By: #### 1 8130325, 2239673, 5806066 ####[address] [address] Platelet mean volume (Bld) [Entitic vol] 9.1 fL Normal 6.4-10.8 [facility] Comment on above: Performed By: #### 1 6062024, 0785385, 9282569 ####[address] [address] Platelets (Bld) [#/Vol] 272.0 E9/L Normal 150.0-500.0 [facility] Comment on above: Performed By: #### 1 4227019, 6209881, 5828415 ####[address] [address] RBC (Bld) [#/Vol] 4.2 E12/L Low 4.3-5.9 [facility] Comment on above: Performed By: #### 1 4128884, 7960810, 9676477 ####[facility] [address] [place] [address] WBC corrected for nucl RBC Auto (Bld) [#/Vol] 7.6 E9/L Normal 4.0-11.0 [facility] Comment on above: Performed By: #### 1 7493859, 9194954, 5446536 ####[facility] [address] [place] [address] Consent for Treatmenton 01-02 Consent for Treatment [id number]#1.00CD:[address] [facility] Consent for Treatment [id number]#1.00CD:[address] [facility] Multi-Wound Charton 01-28-20 Multi-Wound Chart [id number]#1.00CD:[address] [facility] Nursing Assessment - Woundon 01-28-2023 Nursing Assessment - Wound [id number]#1.00CD:[address] [facility] Nursing Note - Woundon 01-28 Nursing Note - Wound [id number]#1.00CD:[address] [facility] Physician Orderon 01-28-2023 Physician Order [id number]#1.00CD:[address] [facility] Procedure - Woundon 01-28-20 Procedure - Wound [id number]#1.00CD:[address] [facility] Progress Note - Woundon 01-02 Progress Note - Wound [id number]#2.00CD:1 27 Normal [facility] eGFRon 01-28-2023 GFR/1.73 sq M.predicted among blacks MDRD (S/P/Bld) [Vol rate/Area] mL/min/{1.73_m2} Normal >=59 [facility] Comment on above: Order Comment: Order added by Discern Expert. Result Comment: eGFR is race adjusted. AA=. Performed By: #### 1 [id number], 7721411, 4732217 ####[facility] [address] [place] [address] GFR/1.73 sq M.predicted among non-blacks MDRD (S/P/Bld) [Vol rate/Area] mL/min/{1.73_m2} Normal >=59 [facility] Comment on above: Order Comment: Order added by Discern Expert. Result Comment: [employer] Floor Work[employer] [facility] kidney disease could be indicated at eGFR's of less than 60 mL/min/1.73m2. Kidney failure is indicated at less than 15 mL/min/1.73m2. Performed By: #### 1 [id number] ####[facility] [id number] [place] [address] Coding Summary.on 01-22-2023 Coding Summary. CD:[id number] Gh0bW w+PGhlYWQ+PP3JFQBdT76jbIU izA2RQ4rYJV5XPFTUJBBSJG8J CF9xpOY5DXvbI4OshkXd CvreiVEvUT35LUb8FJV2jIfwZ XazyF5scUIqK9l6PxCsLG51mG 06ZLrjTZZyGrM7EzLmlvcgsYH y T7heTvCmePVyRwy+PHRhYmxlI HdpZHRoPScxMDAlJyBzdHlsZT 6iPw8hFCUfGYUpeAxoxWBnKsS j d0meAOZzXRxwSH7atQimB2Wdx ZQ5FJQgy0b7Iu60lCG+PHRkIH H8rEnuNVopd057BkPyk9ctRJB 3 yIXxJMcpAUS5A73rv2U3BXTbG PFmEWY4bQH3hS4lqOaugyetW6 HpoFBnFhO8ISQ5fFMgyU9goMb n ekjysT0gNyc+U57BIM2BSICJB F4QCzw6T1MrSpwznDI+PC90YW WoCC68xLKdsVPzc0rzsUv4AjK w JHQyKCB0wJciPMrkc5GnDPBjS 28koFYlr9Q8GBJbnGawdLRyQa AcsDH5yH3aNTclymcsm9wxuzm n Ncpxa2lbhc57pX39T20vPDidL BFyZBI8CMWcBISmdVubyf0puU 9wIi8+GRfnb0bmw6xfhNv0RzE w IDDehaZiaHljLSL7g8SpJk26W 3JwqNmoh1OkIno4wr68dUCeg7 K6wKX2SGvqUIKkpC6vRVqxNtS 6 XDKlUpDshA82eTAgJCmdXc3ci DpgbJjfNU6vTCYldupmJJMlqE 4jVIRmhOOvxWskOK0gOYVyhqj m e691XdFlOAM7SOUpxMYuH5Yeb A0xWkUuWIQzZJSkU0XsnHXbRG arO266MIaiTmS2XBNyerHeF8U s XXUgxCniPfZ1f8T4Nb9Ha6Zsq ywqPGS6RNcgARSxCoLiKvRuFl L0R6WhInp0TQUdrZtkZP1rW9A h SDDdhkkchrhobIZ3IFHdXKMux E73cELbZWmkGk5yf2Y4w915QK BmRPXazE01Vh6jzNkqMGWbkHO U yE2xdojfm3zjjkyaZsMwZPZoI Og7ZIy3INJjdUqfIaCxDCH1Ku Y0OXK9sMPkvI2guUqxtmutnT9 w Oyc+N36mgI8sIQV6WJU4vbmoM LHtchYjYL64SB50G7PjSqtkwL FibGU+XHHjuyBcgMoyEA3xRmT j b9mbq5CzLLbtT5JeVTPyHPfwJ fn7HDUnMWG6uUX8fT8mTXGhVX iqn3K7tCY3Q3UyjjVwsm4ay5m s WDRqWVblW87ngVXxm1V9EEXup AA0IMKiiZoyXmAfbY07Ewh+PG XmtTjeo2BoSdlij6bpz7rbwMm 9 TpFeJUBtqnEudWjoSFT6w4LkG c32Q10rJCrhZIOcMOQsEMIuIK CgfGnemj5gbY3kPl8+PGNvbCB 3 uZA0kW1lAMHyMbD8VXhrL815Z gTmbYVbDdgbs4lup2anuAl6Ct AcVKYrpbTusHvjDBU0e4LlKl5 8 X87kXEpiAJLfAANpERTgFQLit Llvhc2gkF6vTp5+XF7az5wqjf 34rG61eBJ+DQZdBBO6xVooAEy w QREnuJ6rEKbnMsC0ZDUnWbKhd D86mDIhYByzIu0qeBsmySjzGB 4gDSRchvhrb614UwBnd1ggETW w yGVsKNoxVOG8Z73gm0P0EMNlL OFcKIK9qSS4lP6heYvzlpixyD DgdNljznCmjQdmSGnuFZsbO43 6 IHRvcDsnPlBhdGllbnQgTmFtZ Fz1B4KaIlb3JIYksZyjPA4ngP HtTVtrSq0kpDbpfJxsMM9kNRM p nqqga712RrJkr5icFRJvzXUnP FchXFE5P50yi4X5JSHxXWDfPQ F9qBD5xL2loBvbzxbypKVmbRm g plDdeZjgEYloNRtjU046HRHha DtrGsEfnoUaBJMwwDN3RU02GU 22mOZdr2A2zFH6K9TpAHWyazp t dngmnZB8ZCYaZUWgbH51Vx1mn EhcQu5eQKKfBTY6ZQVjlULrK5 FeqI8lUxQzUUNaSUPcD1TylHH t MZbrU024WVtvXfO3OFHcmnNcC 7BlPGLqkResAtN5h3K1Do5SD6 D5LZ16GL98aKDtc3X2mAT0C1I h IBWrpkbrhqgigDG9ZPTcVMMvh I44Cx4jrWcvMq9jDUMgLRC7AL LrpBRhY0OeoV6wHnBcNTUpNHR w G3IwzTLpRFcaX507PKxxZlQ4G XVapbCuA2XuGXRdhBepUfH3l4 F8Mk6XMOu7WV57QF10xVWou0A 5 wRJ2P1DeYCNbmzfdfhczsYE1N VDyHSXdtO75Dy6ckBqqEk4jYF TjFMV0BAItrAEuH7DdcB6sOpY j FZYmKFZrZ9YrvTVmLJvbT602U AwfBbT4UJLfrcWvU6EkCDSmxR szXrT8i5O7Ru3LXKNdEB92OKY 5 cJV0RS11XG62D7SbXlknnGBpq +PHRhYmxlIHdpZHRoPScxMD MyVsGblUazIY4kXs9rUYVcOAD v oUkyrYUjRfVua3hsWIEbXZyvB T0xwHlfN8PosIQ1KIXbj4d5Os 34H35gG3IhuGW+KPKfyBJ9zNI 0 vA7xGjGwSnF2RHumC624WuAnr KOoVbjtk3uro1pgaAy4AqR3WE UjndGelSofYDS1y5XbWx97I06 s IHdpZHRoPSIxNSUiIHZhbGlnb s6dsP7mVf0+FZLrxAY5jPN5nD 2hSnGiAfD2IHfxS572UwLoxVL v Klzcp1zlw1jocHi7JrBzBIEfi hLmbCceJPA7m5LsHl50U8RhuO wrb3BfWen8kq78hTWpw1X1pDZ 9 U8OuODVhgyggsHUxeYsxBG7vT DRmpyikPBKdgN7qTHRsG4r4Zu CbThF4MOczV8YnvoZ2RZPgnVC g ULvaEQW2A61lr8O9AYUaSNBxB TY9jXV9uA3mcUctonnhrPPgdV ksskZniNusVBsnDBctS065NSN v yMooHRTnxQ7yJOWrdKErzXupG U3uJYDdspqsCfILZv7TZouyKV 0AWXyZCDm7I9TmTpn3YBWroEv s ZY5tgFLhPCnvCe3jzEzclMwjC E9bCXGddlrbXHKztX2cTLQnmP JrdHscRI6rHLZoofkwu706MyZ x NBK0OZArfKRtP2KtkI9iPqCnZ SWaWQOgF0OdjDGnCAlyF438UZ kqRqH1KBWerjFvA2BwEWCcqQj u IgU1p8U6Ge7wQt5xMY8eGMQ6R J49UF97oNWtz0K5hRL9N7NhJB MwthqilrpxaRN7GFRhNXAoaS3 7 hQHvZGteAe2vp1X8f711CGByU JRxwT23Bf0wcSpmVQRvpZSXkB 5yylduc0qdiuhdUvQeDGGeTIy 0 YQq8KMVfgNuqSnQlDKG9QcB5G DH9bPWwpQ6snUlnaqexsS3yTo c+IiHjBEAkdbM5I0FwEdx8XVL z dGkyID0qeJFmRUabUj0lpGgje FyxYF6aFNAhioazBFAirH7sBR OmkDVxmNijVD6oILLmdtbwb70 0 TkYhRKX2XGPjvZYwI8BvnG8aE gWhQWJbMVAaE6PklGOnQJwrE4 01CXmwLdB1MXGfyfQaY6RqSFK s vTukYtO2k8Z7Ij2VHPnbNH74C F71hJNwv6N3pFJ8C0OkJTVsvk lbfqujfRT6ORYzPEVjsI62lRQ k JNezSo9uk1P4p892ZSGgUQCpd F54Vy9dhLgbEKPyhFCFtU7vye uoi0jmyqhuVcUrOBQmDCh1RXx 0 PUAluFmvBuYeRXT6HtR2XYK0g ZQzjK4svNcvufyanM2bQnm+T3 A1xKP7fKVjpZbluBL+MC16tg8 8 E5HzClnpFxf1CGBvOHS7qSL0z U9kOTLxKDlrn8J9cIV7P8Hoii Gdxu0ao7voCVBdVGhlY20dnSS w s2D8GBTpxUK9MWOsrUrsWkOlj G93Oyc+QGEvsHfmf9YlZtoao3 nos9adiEf5KtYwYWRpoeAmzCn u SFX6s6XaJd41G44gGJszOHDsC CPyOUFbVMHkiVrtnm6aqO1xUa 8+NVNzpUI3yHG7vL4qFaDnSwA 2 GYdzP628SiYzcIJtYntgc3yuh 9uvwLe4JtEmFBVyauYvsQrnWZ B9x0VaAt69A5CbuQwbr0XbThv 0 dz29oUKis8N9bDB6B1QlTKAlm osofSPxzJlyAE3tOPWwttjbCK LpwH9nCRLaA4h5FvJpGcG3MAw u C7JatpV2JKFdkVKeQGDpsDUUm C4vqjojr4asaqpwPaIaJAQyUC l3CBh0MZLrvQeuTnJpPGS3JwS 2 FDP0nKZzqF9qaTcleqtqaE8jJ yc+CXc8r7kvpREsHQ9jyJA6AK 76BS51uZMuf8F1kVY9N1McQDD p frpskurorOJ4WITsTCLwqL09L l2twRuzMk9jFETiTHS6GNBrwS SiP1WrwM0kOrThZTHrGEYbU8O l yIMxEJoiU666GDfzCuD0IQTcd kJrA3MwFBGstRpeGlY7a1N8Gv 9ELJ59DG39QX18xHCsk0G0yDE 9 W0FgOSVwkrqhzsfafYQ5RYYvB XWvkT41Xy2otCmjYp0jLCHzVA F5YGVsdFXmP6UzhB7mQnHcXDA w OUZtH9RzpWQzOKwxF960KZavV uH3HSKmzaIlI7JjTQWusHxsHh D1l7Y6Lv4PEg11NX08JC45aEM g u3J0uHL6N2CuTKYqpmnsdiguj ED4SZIoLNRanP97Vg3toIczLg 3qLFDtBBB5XWBdpPYoL9RcgZ9 y FlYbGFAcQLLrX8EflHBqLEftY 957AStdImC0PYTjtgTwQ6CgAE HyhNumMsL2n1A7Xd7PYGqhzdn 8 X2TnKlwmiNW+GH40KYDqKL98q HTwkDXxb1lhzEo4RkLiFJOyDG P3kFksTHwdl0AuFANfY49zcSJ w c2U6 (more content not included)... Normal [facility] Consent for Procedure/Surger yon 01-22-2023 Consent for Procedure/Surgery [id number]#1.00CD:12 7 Normal [facility] Consent for Treatmenton 01-02 Consent for Treatment [id number]#1.00CD:[address] [facility] Multi-Wound Charton 01-21-20 23 Multi-Wound Chart [id number]#1.00CD:[address] [facility] Nursing Assessment - Woundon 01-21-2023 Nursing Assessment - Wound [id number]#1.00CD:[address] [facility] Nursing Note - Woundon 01-21 Nursing Note - Wound [id number]#1.00CD:[address] [facility] Physician Orderon 01-21-2023 Physician Order [id number]#1.00CD:[address] [facility] Procedure - Woundon 01-21-20 Procedure - Wound [id number]#1.00CD:[address] [facility] Progress Note - Woundon 01-02 Progress Note - Wound [id number]#1.00CD:[address] [facility] Coding Summary.on 01-15-2023 Coding Summary. CD:[id number] Gh0bW w+PGhlYWQ+QJ1ROVWbG37sxFJ bwL4ND9oZGQ4HSNXZFAJPSD2F MQ5rtVW1BPbvW4WkgfGy GczueWNhTJ30HYx0IUE3iAnvU VwxzC7qeHDlJ9t3QyTlHX73qG 83GLxwKIJmQuJ1YtOdwwoacYX y I7dwSgPwlHKhIpn+PHRhYmxlI HdpZHRoPScxMDAlJyBzdHlsZT 5mUw1iDKWmABUscMmskGRwIwJ j a4goLCBjBUagSW8baYhgA0Fef QG7MKFxe6y0Uz65bFK+PHRkIH P2lNmoCTpbt512TfDni7coKYC 3 jLLbKDeaBAR5P85iu2R4VYGlV DNvAWT3tMN3zC9ltYlcfvvfB2 IttTPbUkD5TWW0xZKbiB5agIb n gnyvgP0mWkz+Q71GBA4JDVTPR F7JMju1T6JaLqosuCJ+PC90YW TpLS64yQQviVXbn8kqrQe8LuP w MLXfNCT1bNuhMAjfh7CkSEAnJ 43oqAFml1M1FSQpiRxznTSxKo HmcBS6bM8aZXvupcvtt0xvqgl n Qaljf6lnya44sF82A15qMHwnO MUeFWE4ZOGsUPOguZqfll2faR 9wIi8+ZVrij4cpr1uajIe9AlD w ILWpoiOctWnlBJQ2g7LvPd92L 7OirGnpq2KgMvd8el49jDKhz8 H1mDA5PXmkZKKiuL5hELroFlP 6 CMOrMrKzgE02qEOzIWnaLq1zi ZefcXidLA2nZGBbrsfiQZUrbX 8jJOBpvLTxsKglBE1eQJKuxaj m h839HmYpQAI9PBJijZVaT3Qfx K1lPvKuAKAcIUJoI2BjoZUxOP owG206EVjvSkP2HZPskeUmJ6Z s UIJvvDecWbV5p9D8Po8Je1Veh yeuWXD2BKxyTYZkAlC9YfUaTp Y7N2QnLec5XLXcdMhuUR9mH2Y h XNWcrcwfsmyapLS9NMReCAJtp W11yZMgLTplBo6lm9Q3p976UQ LpGJYlbC57Fd3juVgoJYYbcFZ U rM8qrrgjg2ckmdimKnPeYZXfK Pw5JVz1OGGqfWhfKiNzVKA9Dm C3JAU5mPOfoY1baKmmdsutiM3 w Oyc+E43rbI5lJDH3DPD7tsbpQ FDcfrNpKY83HG76K0AwJclgjU FibGU+GXUpakGmsYvcTN9nApZ j j8xjm8SaRDyxD1XxSKZhOYbkK yo6TLIzRFN8nPW9iN4uUWAtGJ uew6R8fIB2F9OwlwErwv2mj9f s AOXgXAhhY18pbSHcw8D8IKNke QB9NTYnoKskCbGgjL43Lcd+PG GuiUkcs7EfEaiht4bym0lfjEh 9 MdRzHPMqojFtdYpgUPN9e8UnU c47M25tFDmvBQTlBJYmHXNlCK RxjTgblq4maB1dZl7+PGNvbCB 3 cDM2lH0yPREsFiM9RDedE647R kRweIYbMezty5rus5qviEy5Tz RlCDMemhKhmVxyOFM1j2SgXg9 8 Z02pMHfvSCXlDRPcFRBpXOPqf Vtbcn6unZ3bQa4+JI7qo0vorb 15tZ90hVP+EKOhYMD0nJnaQIa w MMFbbT7gYRqsYeO8RJXjAkFqb E41vQUkBDbhYt2gwHbdqPlcNV 9mHJJqqpbws468NlKst1kiTCB w eQCgNUqhPPT6C34xg1C5NYGtW BUuKFL3qBK5dX6evIhauquobA ZbwRajiiTbhVuzHSupHGroD90 6 IHRvcDsnPlBhdGllbnQgTmFtZ On8I6CtSew5NKKkuRvmTL9uuF SwGAhqNv0jkXwgqBhbGH1eXIA p dkngn989YaGjm4chVEHevANaL QsfDXO1N52pf8T5TFYzABZfNU U0nZV7mN0peEstwhrkoRUcrTl g zpPlnQzzMQlkOUjdY093TWRvy UcrMvYbdnZrATKiuRS6ID03DL 64kSIff2Z1jHN8G0QuWRGvvwi t cdyhmDG2YSGcJLMlmQ88Uc3kd YdhTs2bTVGkWMB0XDSxeTPyL3 IrfU7oKtPfDGFpDQZnT5XatQY t KPwtC333UGbvDpH1VKUkygHqM 9OhJYAnxBhaHaL2e3N2Kv1OS4 V4CI95US54hKJtg0A6eVB4T2E h QLKcurgkdfbdkWC6SGXzLTDab O19Wc9nzWgkQm5lGDSrMYW8DF AqqJInK4XdnL4zIeZkIIViKOY w L8BzhJZqFWtpO478LOuwQtY0Z TGbavXcZ3HbFSIyeLnzJqN3u0 N6Bw5OHKv9CR71WY20gIKlm1X 5 lUG6A2TnTDExkqxvgmyplXN8Z DRyFVGevK52Dr8kfZtyMs9cAK FqFGD7GAFjrAJgH7EubN0rWnQ j IMQySLKoA8ArkNAcPAfaC313Y MaxYiG6JNQauyYkJ0VhENNapT ljVaL6c5X8Qa4CXTCjFG27GJN 5 rKO1CZ94WL92F5RzGxayaIWcd +PHRhYmxlIHdpZHRoPScxMD UeLpLurSldHO0jQg2xRUZlVUM v aZfxlEYvIpUvo7ywDWEaCQsoI U3wkLnsD4PnwWC2VKYcw2c6Vp 07I66kV7UruVD+WKCutRO8uZL 0 tX2tOlLiFvB8DUgqU998JhJtu ZFbFhudd5dwp1fuxOf6ZnD5ZT UzovZrkPlbHAZ9d5NxXw62V51 s IHdpZHRoPSIxNSUiIHZhbGlnb k0lpZ2hLa9+ONFtwTQ5rPQ0yE 6nMmPiUfD5FRjvL901ViKrkMC v Svpqf9anc5fgmOu4DaClFCHet bQqmClbAPY9y7FiCh02M7DckK zko2GjAdo6vy08aRGfa0D7mDL 9 G4XbMWZmdiqasMAomZisXD5kV GEnxokzWWXawL3kMTBwC2a1Dk UpFzJ0ETypL9NtvzK1PNAgpFP g WWeoXGQ0F66mp3I9WJKwQNYmE JM3lIZ3zI7plTpgkjdobAUhjE mcjyKauYqpDHsxNHtgH765BFD v sNfeJVNbbP5sLFIbqCVntKnqU C9uMFZppxmxXqRGFl7NUcrpVC 8NZYuNULp7A2SoHbu4XYNuqEu s KF1mgFTzGTacYi2syZfvdRjyC Y5wOJJbcftvUYLipS9aTDFnsF IzeQwhJR4uTLAyvgisc123JvC x QBO3ULIfdBArX1MytK8mBrJuX KQvGPWcS4RllVUiTEbiT488FC feHjG9BPHwndIcO8RgTSXrmXq u RlR2u3B9Gn4wTm1mZN9tZNU8B Z53UT98oXIrz2W3mPM6N7LsLG LevlxokwxyjLG5SEXxDYIxtE7 7 oNYcMYkoZq7uq6O6l827QFXhJ CRdyR45Si9duLxsPFAgeJGTwD 8vkjgnu9shydtqXoCvVYBwHTc 0 UVe5PHOkcLstWfHaUWU5HiR8A WU2yJMsnO3ngChjskxkbK0mUx c+DtPnEZMcahL7O0ZeFpc4SQO z pFcaXQ5qbDKpIIkwAy9dmGyjw GpvBY2sIHQkvginHPTgzT3bCT MnvGEmqVydAK8gXXRfvgrdb40 0 DlAtGIS7IXWvoSIvQ9YwfL4xX bLtFPAcZSBcA9ThjYUoUUdhJ7 85XTcyDqD9VTOdqaWdP1UpPWU s cVhxBoC4c7L4Wq7SMIcbMW98M D72rVTxs1Y0pRW6G2OjDYCpaj psmlimeOS3VLQeSNGbwD50xFD k IBgwHd8mk0W7f940XXOjRJTch E25Ja1eyAmjLOQjpKBJuX7qfa nzj6jfafraGtHgXGMnNCn2ATl 0 FWFspZvwWkIdJOY0VpK3QFP2l EGvuJ4fuRbwjkpxeS3lUvc+T3 P0dMN6iMFaqHcrdEV+CI78ip1 8 T1CaSakbOox0BACvWER6zTW2b V7bJLXrFLssg8K4lHH9R0Kszt Heea1fk6lqQKGpBKabK26zgGO w c0Q0ENEmgVD1YZLzrXmdKrQax G93Oyc+EDLwjVote4UjMabxt2 ccw8vcuFl2AnRoULUivmOhwDt u GYY7h5GzVx66W59vEMctGIUvM PPcUAKbWCAqqTleon4edI2kDh 8+WVFkiQB3eBO5kG9wEaSuZhC 2 XEwxV484LcOfhGCcIuxqx3ekn 1djlQs8FzDfPKQegfHntXjvPR I6b7FeEw82R3NizYvqs4YiIhh 0 in42vYToi5S1xIO9V3TyPLHtr lxynNMpnMbvOT5wMFBjflnyQT QzpV7rQRDvA9a1SyDtEyU7FMz u T9XgryU1DQVcbEDaFQSbdRHYx Y5rmbwbo4qhmktyIwXxAFUqPO o6VMt6AGYocFccOtKgTHY3AhS 2 LBV9yJGijW4bbVfwhzhgiN2nC yc+JTb6u9yzpPLuER7vnPI9AW 37PN59wUYpq6M9iTS9G8YbVAL p vqkgmaifdDI3WYViLKTdrU86R c1jbLkqMm2bOUNuBCA1TRVevN AjW3VycT5iWqDaRLLgZGIkF8D l bNClSCraA826OIeiXvZ9YTIsk oQtR2ZqKPShgKyyOzE3r8O7Dq 9HDA44ML89KB35hWPvg4U3wHQ 9 N1MxMGJvjiteznuxuUF3CUHwJ HKddR15Qa9mkTdbTy0wTCYmHC W8SUSohOClP1AhnV7jIvJsOMD w GFTzP0YnjMVjWSzsB865XFisJ rH7KFZbkzFjO7DzSBEtdOetLm X2y3N3Js1OKc51XD52LI23yPU g a3L2bZR4R5SwXDGqadcqeqejf OO6FWSgLJSqmX88Ou3gyWlnGv 0xHCXfKKH2PGMzcWIcO0EpyG4 y VhNhMHFlPGOoP6VxxOEdNEwiK 871YXxkRjL2AFNbisKsB3PxRN JyhHbnVkB7x3H9Xi7MUJudtec 8 J8OsGkvzlXC+UL57NHFbRJ04g UCbfNFdx7hcbKp5HeIxSSAzAX M2hFysDPkza0FaHDVdL09hvRV w c2U6 (more content not included)... Normal [facility] Physician Orderon 01-15-2023 Physician Order [id number]#1.00CD:12 7 Normal [facility] Coding Summary.on 01-14-2023 Coding Summary. CD:[id number]:[id number] Gh0bW w+PGhlYWQ+DF6EURHeM93vyBO poU5PW2bLQL7ZAXSYXEINQJ9X TY7jsDS0BBkeE5CehtLn OvuxiVRmWW72DBs0WNJ4vCawN VjrjA1ykKIzJ9v8TiSmNK77eK 45IWqaCOGqTxO8ToUecsastHE y K8zfTmQzlUVnBnd+PHRhYmxlI HdpZHRoPScxMDAlJyBzdHlsZT 0zDw7oWPFqJWNemAswbXVrQdU j x9lkZBItYKziQE7ciDzfK7Nrl DQ7WSXnd8t1Xy48bCP+PHRkIH O6iGihOXfhu642RrVgr1hcQZB 3 cHNiWPbqWJY6H66pm2H0KUWoI ZMrXTJ5hTA1uO9siYfkoiurY8 MytNQmIlQ5AOC8gTMdoM7lbIj n nlzepG2hNgu+W55AUE1ORURVD F4ZNou1X9YtWbeygBH+PC90YW PmBV34rBVyqYGbm4gyfAq3LvO w CPBoWVK3bZwxCPkqx4GiZUNuT 35ipVXxq9Z3GWJhmEmwbAVxEq DkhOH1wV8pAIyzivlem2kvnhy n Dhrrx9clln87fT02K78zYEhmN ZYbUGM2JXJrCVFtlHibwx8jkB 9wIi8+JAcvk1qxn7xftLd9HmC w ARVrzuRsjEoxTXH2j0GlAp69H 1UjkWkmx2GpCqo5vn07cDOoi7 O4wWY7WMcfJHDoiI3pAApmXnS 6 URWzZqMsoU66uMZhPVdpTv1iq BsxzTrpUN5wFRLnsiiaRWMlcE 7oAXBecRRqbIioWO0fFWGtmbr m q027UfUtGMK4PBPvyVSsB7Ayv P1yEvYuWYImDREqK8AmtKNmXN ldA677IOpbRzP1NSShzkUlU9Q s AQFlcLgbJaT9t5Y8Dd1Cf9Ear lvgYPZ6QRtrDAYwKtS1DrDqGf N6M5KpWvz7NRAnkXvsMV6pC7U h HEMjvbsckkkktBO3QPPyWXIkl P31pATmEPjwAc6pt8P1k814MT GcBHHzdP71To0xzXwrZYPryWE U iG5hongpv9jfpwgvMcFuJBPmN Yq4WPp1VPIxnOsfSaFkNVW9Tc B0LWK4gXPclX9igYttrvotjT3 w Oyc+O17kiG6bKES5KYX7uieaH VXspwWiKD46WV83J8UmJzebmC FibGU+RPLnfaExpCcaRL3rSgG j t2tnq8PnYRksK8JmFYFrAFmrN qw1JWNaNGG0bPH8lW8bYOYsJJ wpf5Q0fKJ8B1BpojDztt9it9n s ICErQWkbG12qlNAwk0X4STRcy PF6HJWliFayJgEboI82Trx+PG RzkCikp4CdJvmdm1frp8czrAq 9 MrBuVPCsrsKbcRfiGKB6i9DjB c79A89nGXiqTIUcGZZxOMUmDV DcgBoboe3fdQ1nZb4+PGNvbCB 3 hOI6jC6vPCZoVzE9VMmyT308D nJrnTDxNktar3hpa6ebzZv2Zg GlAPUsqfVrdJmiHCR5s0GbCy7 8 K34tJOouTTGkMKXjYWVuUVNdj Rrfaq4jcN6lNl3+WB9qw8iztc 13wE34uDX+SLCaBKJ8qKczCTo w GKXyeY3sUCddLrV2PPJiVnUhn V68xDSwFJpgRt7zpYkxiOypES 3iPCHrjflcd204AtNfs2eeEVD w mHBeYRcfDWF2F07yz2D3IUMgN MPiBAH0wVQ7jI1eoZzqibasmH BjcMuvpmOarPfpPQclEFroQ92 6 IHRvcDsnPlBhdGllbnQgTmFtZ Zs4O9JbLht0PQEkjKexMO5dfX WhHZozMn8ieIwmmLcuOC7aJXF p xsijw090KmDpd9deITQckWGpP KhqKGR7S14fd0F8VKDrHBFxFN Z3yCY7oY8ihEqamoifyGVzyTf g uvKyxBiwZUczQLuqX759VLNto HkaOnQkogHnLCHjuAD3JH16TD 69lPWxp1W1pYI1G1RaLHAtvdp t sxtctRA0JZRmSVSnyI50Ai2gn MsgNt6rYQInUOU5NPZxrPVyW0 XsuI2jUkXvKUObTBPrV0NwvOD t PNqcF956HVisTiH0FCKckcNgS 0VmXPVijGbbMwK0q5K5Ru7HB0 D8FZ91ZN30bYYyx3Q2tLF4D4X h KRNxczoiqbgpqOJ6SFJaTGWwp A74Qy1auVbdWa1vPVVvEVW0ST EguBBgJ4UvxX2rRxFbHGApKLF w B1WdxKRkTYbgT409PJhsNuP9U UJwvbZkG9RrEXKhwSpdFhY5t5 N3Jq9PQVk0JE84PP54tCVaf6L 5 sAP6C3LaYUGhnnxgaucoyWD5J VWkWJZjaI35Jl3xuKrnRm4sBG QsZBB5GQPauPFhW4LoaT1jBvG j OALqZUQqU7XygRJaRMlsB157E GudVoO3KUFfmlErV5SoKIZnlJ leFiJ7e3O4Fk3ZSCXrTH48ELH 5 mHT2RQ00UR70S4BkAfjhhMBwk +PHRhYmxlIHdpZHRoPScxMD YhVoEwrFlsPL2sGp1rGXShYMG v bJqsgVNlBxAkq4vgUIQiCRziT O0vaNjmO1PfaHT9VKOjz2e4Gw 34A49kY3ImuRK+MQIvcHP7tSO 0 eU3fNwAqAhV7EHnqX013TbLox BWlClypr5kze5xvfVw6NyE7SO PuowWmdElmTRJ3k0GpZt98R25 s IHdpZHRoPSIxNSUiIHZhbGlnb v1yzH7yGg6+SEPfsKV8xUY4kY 4yQoXlAhQ2MZtiV597JgPkhWR v Mdtzr7yid3xtsBe2EaWtXXBzo cGdqLifIYL6b6DtRn73J3VzfW wup0QoZuu5gs90gAPlr5J3qDA 9 Z3GuBHDdzohikNLwfUagRX6eY REgrdezPBUniD3zJLNpP4v4Wl ZiRdO1OJtaN4KqmkR5OCVkqWU g OWspPWD4J82dm1R1ERLsZKHmW MG7mZP1mV1siPxvtiyziUTohZ qmywSnuTriRFukUTwpG123TND v pXtbJADgqS1zJJHxqDBtfUflF K0mJZHrmqbwObAEDs6WYylvNM 4JLOzRARc1W9DyQkr1VFGdnEa s DW1dxUWjKEfoCs9wxFueeCdgO U9dZFEeqqjtEQTugZ2aWDCrvZ YffXxrKU7yAPBsmseov691GsQ x LMM0AIMzrFYcA7ObqO4lFtVjC UUdCWEwW2RtqHUoNVjlS775VS swArT6RWIjodNaI9AlLTIwoWr u LqM8n4E9Nj9hZr8iHB0gCTM0H J67BH65xNHqu6V5qWB3C8NgPO DizsdztlbjiQO0DYRzCVVxbD4 7 gWYtLUknCv0dm0L4f570BUAwQ XWvjF29Eg5zdCxtWMFxoVRAtR 2ajxqkc5viuwjnOyRnUVLuNUe 0 MNt9AWAznGuxRnHbFLF0UdR5S DL0eYZcfH2utNxfpwuwiX5qVo c+PkBoSWRpjsS8W6NoZet9HDT z vYqjDQ1inBJkSVdxCh3flXovn DwyET4oKMIrimnfHBKbtT6uHH UzfAAnwRpcHO9pPCVmcuvit78 0 JzZjNHH5UUNguGTzV8RccX4bQ kCmWUZmVYEgF4ZbpRNbSAodH1 67APmpFpO7PUMlkuWuS2ImJAL s iYxiBmM2u0I6Bc0PRVhqTL22A O26mBWwg4S9uJU9K8VaJHWlkr nibisedDY5OKSzQEYidR83qXV k BOswLv7sk6C6e219ACKtNXZhj C65Av7cgNkyQQJeeCNMfH6ilf hny7nymvdaHgKqQTLaBRq5LZb 0 TKDsnWfgSmOaQIE5DsI9KED4n CFflE6rcLsarmzliB7yAqg+T3 Z3hRA5kOUouUwafVO+CH57lz9 8 W2FqJeseMxy3TBSgJLZ3qGD6p P9pDUVgCDwew2V3cCR0V1Cfih Iate1tk9paGALuNIbwE58fqGX w l9X0FJXehVX5IWOfrQsfCxLbp G93Oyc+DNTnbFsqi4DbTliic8 kov0ugaUh5ZpCbPYTdniGfnPz u XUX1d1QrVe86Y78yKOdqRHEdT IOeRRWwXZYosQkctc0joE4iBs 8+ESGzmSP1tYP1oK6mTbZuUsP 2 XZfiF227MqHluXBlZfkog4mzw 8chdNi4EbRvSKCmveWuyHzeSB V8z5HkHt19K6JjjZczg0BlIcu 0 sh32lPHqt2A2eWY1K0PvGEQxj dsudYGgtGkoKA1zJXNsrydtPE GibL5iFESkE7j5KaAjWmW3GFh u O4HfpeW9QNSymNKyXZHmxMUEt W3ikkftv8btcknvGiOxWDVcGA b9NGl8FSPppIohUeQuNRQ0JuH 2 BBX2nUZphJ9sfYjjjrqrpJ1eV yc+MKz8j3drpXVqWY0ivKB5QK 71CA28sIUmd7O4zYE1Q0TmWZD p dvmjnswruCL3PZAxBYVgjV83M l3spBgzGk0gYAVcXZW8HUJksG CbA6OwxT4pGvDtLCDhZQVsL1S l qFLiDKpqP752MSodZkZ7SJJrl sIuS0ZdMEYflEnfXyY8k7X3Kc 1QNS24QM93VE61oVIrb0R1jNE 9 G5NqAKEpkjpyezgxhLX0LNWaT RRtlR42Av4krCsbYe1iNUNaYZ P7WOEhpPRhY4QgfA9jBwMlWIJ w KSNbE7IrvWHyRRuyJ620SIfiH iF0CERgquKtJ6YlCEEwwVdiSu R1h0G3Dh4OYl60XU39EB12kVV g y0P4aEN2E0DjIHHdfoefziamv RW9ZONkDAMdeL41Lu9teKcoDa 0kCWRwWRS9JIFqkBHeR6OgiN0 y XsCnOUBzCUKdI3AsiWRqOMgrI 219NFqeZlN5UVXcmeXwJ6CzPT QgpDziAsB7j1I3Lt7LXOsqixe 8 D9NkFudpqLH+AV43FLNnCC83b CNbgMEgz2fiaXp9ClVwFTGwCS C3fVfaDGzqn4GeRAJwB39gxDF w c2U6 (more content not included)... [facility] Consent for Treatmenton 01-01 Consent for Treatment [id number]#1.00CD:[address] [facility] Multi-Wound Charton 01-14-20 Multi-Wound Chart [id number]#1.00CD:[address] [facility] Nursing Assessment - Woundon 01-14-2023 Nursing Assessment - Wound [id number]#1.00CD:[address] [facility] Nursing Note - Woundon 01-14 Nursing Note - Wound [id number]#1.00CD:[address] [facility] Physician Orderon 01-14-2023 Physician Order [id number]#1.00CD:[address] [facility] Procedure - Woundon 01-14-20 Procedure - Wound [id number]#1.00CD:[address] [facility] Progress Note - Woundon 01-01 Progress Note - Wound [id number]#1.00CD:[address] [facility] Nursing Assessment - Woundon 01-09-2023 Nursing Assessment - Wound [id number]#1.00CD:[address] [facility] Nursing Note - Woundon 01-09 Nursing Note - Wound [id number]#1.00CD:[address] [facility] Consent for Procedure/Surger yon 01-08-2023 Consent for Procedure/Surgery [id number]#1.00CD:[address] [facility] Consent for Treatmenton Consent for Treatment [id number]#1.00CD:[address] [facility] Multi-Wound Charton 01-07-20 Multi-Wound Chart [id number]#1.00CD:[address] [facility] Physician Orderon 01-07-2023 Physician Order [id number]#1.00CD:[address] [facility] Physician Order [id number]#1.00CD:[address] [facility] Procedure - Woundon 01-07-20 Procedure - Wound [id number]#1.00CD:[address] [facility] Procedure - Wound [id number]#1.00CD:[address] [facility] Progress Note - Woundon Progress Note - Wound [id number]#2.00CD:[address] [facility] Coding Summary.on 01-01-2023 Coding Summary. CD:[id number]:[id number] Gh0bW w+PGhlYWQ+KW5ZPJFbA29gxMU apQ9VK3fELU7YMKZAQREEPN9M LO4vzDO9RNvfD6IbyjRa AiwwrGSfMY21CYt1NFD8aRtdI GkfsU9rwUQaI5z6XoLyUT43uE 01IQhqRDWbPyU7HiIwbarupWF y W3vpByGyoSLfRgw+PHRhYmxlI HdpZHRoPScxMDAlJyBzdHlsZT 3bJb4cDAMlMEVhpYmpoAZjOmV j y2nyWXDnHDynVR1nqKxkV0Kwv CJ0ITNms9t3Mw35jOS+PHRkIH C8zDzkZOakg713RySos9lfGJG 3 lUDeILhrTAK1W01sn6K1KHXyC JBwFHE6cCM3sG5zpQldsrobX3 WlbREkPvV9RAJ4tBFxdM2zuGw n bhzpgE0iCga+E20QKC6MVZJEV O5OBye1H5WbPhoaoOB+PC90YW YyRH60gOPxvXOvr7jzrQb4MdG w CBSkNUW9fAuqTElal5DmLQQmM 04tmNOww4N8OENpgXlawGDzBo PajQJ0tC9zMUnqophsl5vlqpo n Sqhhj1yqeb97zT69Z95vFRulV WZjPTF7NQFlEKOybKqvjf5riQ 9wIi8+SAvpl6hps0wjrQx5VyC w SHEvoiNtdTlaIAZ8x7AeLz15P 7QokZlni9QzAnz2pa58iMFzh2 M6wOG9ORxjIEFjpG7hEItyWxS 6 FCEvSeTtfD83zNXfRPczEr3pa PnbtIuzQC3eXQCnpmjtMONppO 0oERTeyJFslVfbFU1cHFTtxin m w697XiDrADZ2USImeHWtT8Kkb O8eRhQiHBRgJVQiH2HcuILxDI emF726NDgkFtY7GLNaiqTvR2U s SFYpnLodGeS3q7B9Cp0Zx7Rht vhyDBY9GQszEIIgLuDeTwLzEc M5R4OaBih1DZGopIftVY0sU1W h IBFjfulsmgefbJS1AQQlRBBtq O42bFMkEZdkDq6eg4L6n786JH GsIIYbaC92Ni9zaKuoCSEdrIA U pB1ckaymv3yrqscpQxSbZPCnT Kl7XPs6LLArqBbfHmIfJMC6Nx V1USJ2gQMiqO6chZdpvqensL1 w Oyc+M11hjO9eFWX8RIY6rnhfH XVhhkHqKD24UX28K1RhPbyuqL FibGU+ZGXxogAlrFqzJU0uJuB j n0izd5KlFZtpP4ZuORRhKOiqM vh7XFJsSKU9yZO2hP7cYXZzOM lhv3F6uXM5S4UopjYbkf3me4x s UAFdRKmaM43mmLWnc6H7QAAlj CE7JDThhZmkJkTkfI14Rkh+PG OaeXddj5AmGmusa3ljt9smcIe 9 NdCdNRVsabBiqGvvYYF4j1BwB i21Q50bERlzHQXmXPSvNZOfTM NusUyhqd0qtU4hXp8+PGNvbCB 3 yGH4qC0wFRMkTsI6BVqyL803U lUxqYXzMrlve0edq3lahFs6Qc OmBNUxbyYyyGffQVH5w0JcTc2 8 E05nDYsoTPJrLUGsZSHcATYhs Yndhg6rsO5aGt6+RZ5rm3dydy 76tK04gFO+RKAvWSG8aEdzVBw w ZPGjzU1aXPqvTwT0RDUwIqCkk C35rENeLAvaVh1zvOdcmNhjSN 2kPLLsehuke836MaZep4ebKVB w gOLmSJnjZDX0U46gz3F2OIFkS ILgFJY0cDS5dB0ftYevzqkykF CwqCxsycRdiYozSJlcQWgsF57 6 IHRvcDsnPlBhdGllbnQgTmFtZ Jg9F1TvJiu3DBUjxZbiIC6oaH RsDCzlJr9agPozsZncLP4nZLE p dbzov007DjUnr4gjTFTdoENvR HkySXX2B62kg1V0MLRnIZIyPQ K6aRU7wN5olKcaidfrfNNaiMj g ojMjxEqcWJnlYZoyS643OYKws BwaAvRgdlYqODAcnNK2JT74FP 41fRQon7E0yAO0D4EnMVIhmhm t xhbgtBT5KRUmUERbjF46El1wi TfvYj5jIHMoUNM7HRLriHPwV3 BreS2tJaSfZATlZNUlK0WhlNG t JRlvA999RZxmNyE4UTPozdYzB 5DqVPVhbRpfEvR5k4F4Tc0UF5 O6UW99YY44cSKvn1T0pFH7C3F h DPZdqnkqoxldyDQ4ZMFoTITln F74Bk3ktJdgGq2mYVQfHNA5WG CqiEEkV8BsgF0sKyQqROIrSQN w G3KxyJPjOBpqR640BGxsOjD7G TCvaiYnP1PtNILxxLwfSzO9v7 T5Of3EWNd4YM49CO86zQUxv8W 5 fHT7R5EfZRZfkjtnabwqwCB7T RZbEBSayG46Us8mfQxvRa2kTW PnSEV7RFXfrQZyF0YqiO9eQfX j DQYmNYWoV5AzeMVrIGkqL316G ZllIeZ1HFIkjtPwX9ReGSZuuL joZpF2p2K6Co0NKWWtQW29GRN 5 oHP6NN19BN75V7VeEbxcdCVoc +PHRhYmxlIHdpZHRoPScxMD CvAjBicXzsTZ4bLe1jURRjJCW v lMsxfLBvAlXqh4miDCAkRSwyE Y8stDljA8JbjXL2YYKbo1l3Xq 27K21tB9QznNH+PMXrhEM0oTF 0 fR6eQbMmUbB4WWnaO188RoIhx NXjUtcbi0mlh5fzkNm2EiC2PN FuhpHpqBkaZNE0v5ClLz25B74 s IHdpZHRoPSIxNSUiIHZhbGlnb q5tfD4uYf2+RKFhgFD4wDR6sS 8sQsRmYqD4FWoaK557RaKfrQO v Jjmst0cqt1apyCk9BoYvQUIwk mYaeGyfZRN7p4HwVy74I7XimY txk5UaLbr1hg56vIUbc7C1lDT 9 J1WcYVJpapubgHZfdLyiKK5wZ LPatoloGFBosK3mJUSxF8u6Mk DuEzX3ZGovM6CzbjK3OHHqnQN g FXuwNNM0V10yi7V1OOIhETXbO BH3fGH2cV1kyAhxhyjuoARgoW ikbiByyBuiKOvsSKnyY786YAX v cZzrPFPwzJ5uBQSksOQlkWknJ Y3gQHWfbhzoYhOXSs3KEbtaFO 9EYUuXPNw1V0XzRkv5VSIzwFj s WK9myBOfNDwlCa4mlFwlaZrbP L3fVOHquekmVCKxkL0lQNLjtP FfpTojPM4uYGDouvuha473ZaV x YQI7OAFvcWPbP4YgnP6mDmFsI CCrELIxN3HpiFPxEPfzX012ML ciUoN0QZJlajBiL0CwUIYokZk u PjE0i0G3Af1wAq4qGN6yORV7C L15PW76kASng0K3jSQ2E4LeNH LkqgewaeujcKO1SSOuZYOugY5 7 pKQwBIfiWl1ij0O6r065LTTwC VWbzZ32Zl2btRxzGBKhdBCJhQ 9ilpwig9rzomfpHpSnEHJdMIp 0 BIp5UZNzrHiyYwLpDMB2GiS9K AD0yUCgjH0cxEmxhkhnhD1eDp c+AsMmMWMyyfZ2U8ZzCno9POE z wAeaXK2fbVQyUWftXk0dmHudz ZhvSV8cQFHtjqlhDLKtfS6yNS OapFEpoSsdXS4iAXRkhvljs30 0 UgXkFUQ4EIEknIErT9GdoA8lT jSoTXEdMAVgK1TyyZIgURueL1 45TPhiYwG9IZLrodUyJ9ZxGZM s yBuzBgE5c2B5Dw0GXLiyVG00R Y59dOPfl7G0qPG8R2IwIOMghr mnwlxpnVD7ZHKjBJNtrT65aKU k SNujXs2wi6C6b031NPYsKZVff U30Uf8hcAouYNRboFQFyK7cyv dnk0duwmodNdUwHRBnWCt3IPh 0 DAQzuWplQlOgISP5PeD7UXU4i CSewE2uiKwxdjnjqH3sRgl+T3 V1dTG4aYOsnOyxjSC+SD14jd8 8 N9LwMngbEzl9CEWbJFC6sUC4v P9fYWXnYOvyq6K5sJU1Y1Xibv Qshe6jd8jiUPQlZNpiN28myNK w b9Y9NBAaqRR8FBCsyTjmFhCfo G93Oyc+KJWkvAdtu3GfLrkgk8 jpn7qplIf8XaDyQGSzxbOspVw u KBS0k0OzRl45P56hAUooQSHqS KZqSCTpFIBciPuyjf3bxA5jVg 8+GSJdpSI6xQH4sH7xFoGgJcK 2 JXacU602PqPtyUYdYbsgv4zru 3rquJr7KiExVDLwokXshEqzLE S9i5FsPr25B9ZngAmum6GxCsy 0 fk23cQLae7L2aSQ7H9SzVZHdz zpryCFfrKlqSV0pGHDhaielLA XjcD9nNHDeH3m4DsIxSqK0JJs u Y1GaeyG4UXZrsQQlZWRtrGEMu Q3rhkxll1acewqbEvHtITPuDY q7GSb9RAEprCszGyDsWMF2LjI 2 KEH6nYBogV5qgIovasrmhF3bV yc+GAs3o2inwBMhFY9psZD3FA 10WD04yFZjg3Q8uWS9B9NiMVT p sxkjdnicqQY6NEOgUSQvnY99L w6ncBhqAw1zQWYuDAZ8RBEdbM KkB1SogY0uHiLdDGOwNEXqT7E l tPQwMXizW463LIhxXvA5TOOpd gYcU8TbQOCmhXhkNjD7n1H6My 9NON88UV86BQ73rEIav1A3pJC 9 J2VePFEkulxetdogcSP8LPHsM YQebU35Ox5rxQtgZv1rGUHoIR H4YSFspPJqQ7JvuQ7gGsIvQEU w RNTwY8PqjKEzNGslQ759BHlkO uV8VHEehwGnI8AdFFNtfJasMq L7e3W7Wl7ZXe23AH22KA73jRZ g r5W3bIJ3F6EuPZVpigfbejxlg MR1FRAaEEFnnZ11Lk1vcWzpTb 5uXUTnVJX2VORolFJeO4PskH7 y BqDzSSPxTPPdT4XleMSlNGtjB 119UYniGuX2ADVcihFfP2GdVY LcvGhlErF7f6F7Nq9PYAezdfa 8 L2BiKhoyoET+UI00LAKrMK96m PMcuNOjd1zdyKf7FkHpGDDhKW F9kTqsREtll9IwBBDxE90muBG w c2U6 (more content not included)... [facility] Consent for Treatmenton 12-03 Consent for Treatment [id number]#1.00CD:[address] [facility] Multi-Wound Charton 12-31-19 Multi-Wound Chart [id number]#1.00CD:[address] [facility] Nursing Note - Woundon 12-31 Nursing Note - Wound [id number]#1.00CD:[address] [facility] Coding Summary.on 12-30-2022 Coding Summary. CD:[id number]:[id number] Gh0bW w+PGhlYWQ+ZZ7FKVYnC95ttUK rvK6XV1hHAU2YAUCWAMKYAE7Z CD1ajGG5CZlrI5FjetDf XwguuFIqNT42TPg6DTY3tCivH KglzU9vwKOuK1y5PzUoTR16rH 03KQclRQMtOmB6MjIxnttilJN y H8jnHsBlwGHpFhl+PHRhYmxlI HdpZHRoPScxMDAlJyBzdHlsZT 1wZm8dKRNcWVYzpIhpnOMxBfQ j n1pkTWVaQNueCP4tiTvvM0Dpn TX7EQUgc2w1Pe29yKQ+PHRkIH T5zBigYRucl475ArZlj4nmMIJ 3 mIWrNGkiKUS2D18xq3V0GOYmG FXoRVA8zZO3qP1xhQlvlhsdD2 RujVSsVfZ6OGM0vCIzsR0hzHn n kyefyE2yQzr+K46QGB7EBFGQX N0LYtl2Q7XkNoaauQL+PC90YW MzDC76oLWxvCIfh9wudYm0EgV w RXPqEMK8fVxwWEwep5GaSZYoH 66ivGLel4O2AVUlcRczsXDuXb QskTQ3tB8fOAgtuwtgu8giqgc n Iyqjv7lxtu94sZ75D72dLPnsI XOgQDN6BHQpITRrlZpnnk2tvS 9wIi8+DJxoa9xpz8ktbWq0AaY w ENPvngWuiIadNWW7l9AgJv31V 9KffCbqs6KwAxj1cf33pKOlb7 Q3rYK6LRbzQBWhgO4rUYmpFxT 6 SCJaGdKcxA46iWRoZNflVw7si LocgLhrKB6pSIDwwadsXVLgsR 7sRFSfdCVetEgrML5gSANzpin m n384TkAnCYN6MPQguGVmY9Icn W7mGaNaDQTwAHIuL6FjwVNlVF blS154JNrxUdX5RSJazyFvH7D s FSVonRejRwX6n5L5Nb0Ke2Hgu ifyEMR8WRqlDCCxZmTiIqFjOj Y4B4SnAxl9PQPhjLvxNF0pA3J h YXSyvvnzjvceiCN2HLCgBTFlz W78pFTuZQhiRi7dm5N4w798XZ ZnMGGluP55Sf1olPqwPKFiaED U iD9ygbmiu5dbzdzmLyStZCXfM Ex3RYo3UBPeaNiqPtToTPK2Ip J5EWL0cBSrcV6dbJpxkrrwsG6 w Oyc+B18rnP4xGCJ8GOM8xkwrC XLpvmHmBV83KP84F7FfWgbhpC FibGU+GFQzvyDleNsoMD2eHxT j t9tig7JnMEezY2JsSBViLGriN hr8QSTwEYO7vBV3rG1zVFMtFZ sbc2H8bCW0X5RqdqGzbt1mz5x s HTPmEHexP94beBKwp8R6FMTto DN9IXYpvMzbPyNkjX10Qbn+PG VcmDzwt7KsTdvgw2vbc5mgyAq 9 MlDhUDRyzlVsiXckSYH9j2HbS m71V48dBGzlYPJmOQTrLUQfKK WxeRcjro2coX4yAr3+PGNvbCB 3 sQR4lZ3xJEVsMeK6XYroQ449K uSxjLLyYaxgb8fek9dhfRo1Hz ByYQCbtxYqhWxlKZK3n5NqEh8 8 B65iNAgcNURwZBKqXYRfUKXni Ggivl5stF2rJy0+JW2vi9gyej 73tX85uFW+ZIVhHWD4wFkpIHj w HPBytU0vWRkhWdK0JMGwFsEha W42zJHxAQkbZh3juDnepUdtTO 1fNYSqyejst634CwSmx9yvLHP w aLFwORmeFSX5F38bd9I2ZTVgP CTgALB7bEZ3sY5cgWeqeclswT ZwdIlvzgKwqAskCWsgBZsbW78 6 IHRvcDsnPlBhdGllbnQgTmFtZ Kr3P0SiTgd8IWEklTjcZU2upT QqWWiuAl8tqXrcpKbbKM6oFNL p vmxud141NdDzl3aaEPHrbCPbN ZeiNUF3G87fi5F2YVIuZYRhJW S7xSF1dO4tlItbsoftvEUgwLf g euKsnZyfCBoaEWxlP749HGWiu CklJvGdffFsDAIklAL8KS73AW 77uOOua5H2xAJ3R7CmAASgwkl t evvfzNQ0LSChQCPkrS44Gu9zl XcjUw3hJHQwNZO9TDEhsDGrK9 LcbE9mNbBfBTIiMIEnF3XytQV t QPnqC134OZsgOqX3QJOijdVwV 3GuAPPygGieZjO5f1F6Fs2RS6 A1EN63MC16zBCvx4K4fMP4L5Z h CGEqdqjomuzriZE1UAAbVAGqo U91Hg1ihFywDa6ePFHsTAR5YV PpnVTcM1XhdQ1gMmZdVXNeYYF w C4RtzKAxWUxbQ209MUieKcC9V DCcgxHlN2JnUQWgnXpvKrE5g2 G9Fn6KIOd1EM61MH95bARgk2K 5 qFB9Q9GuPUYkjcmzwtiryJC6Q KArGXSbnR01Sc7xtHduKq3rGB YrKRE6QDNtlZOaE3GooU1wPoZ j YLNaIOHaC0AwlNXgBGefG031K QfgPnZ1XXEdkbDyE7QoQJQrfO kfCeT1n1N0On5ZEKCwNE00SXG 5 gLE2RV63RE51D8FqMexnfTRnw +PHRhYmxlIHdpZHRoPScxMD JuYfWwlOxtRI4lOy2lLEXdPFW v hHmphVEeXrLlq1kcHYWbJKaaZ H8loZusX9JrrMK3OXFwe8e6Qq 67C18gP7XvwBK+OOFsoAA3uIP 0 aC7rVyMvRnU9VDsrZ595XnKpc KSeMtdwp5scx5wblYq4UuA3BP CgcpJxkCglVCA3p7MzTq67I52 s IHdpZHRoPSIxNSUiIHZhbGlnb b4zmR5mMa5+VGUaqDK9eDM8uU 6wByMcKgL1EZtrP058CkEgiQX v Aniqk5lzw4lyoBv7OyVkWHYgi oBeuYqrYUA6q5RcEp49I4PgmJ eam4OmDeu2vs49dVKqv2L7sCM 9 P5QeLCIrmzkhzWNjlDtiHJ0rA WDgktqkVKIotT1oGVEbF0m1Xg BkHoK9GEdaV2GctxR4AFXfsIP g SIzvMXV4V75zq4C3JXOfXHYyF ES6iAL0tZ6poGriztkdnIFntU lfmkHjaMxoMPxoAMfeL085FYN v jOgkFCUtyX2vIAYjfRXnjCeaW F6uYSHdvjgcEqHAHp8UZjlaCR 1WGHzTHQr0R2OqVcm4IPXoaDq s CN1hyFHnQAgpMa7lgJxfnEgyF Z4fXXEfmzgcTFBayO0wWPJsoX HyzVigIY6yHCImpqwum157FuA x ZZF0ZXWzmGQaW2SevC3cHaSfE LNdNZSyZ7VtmOGeQIqbB602FG xoGbC1LLQfseIvB9HhNRYvlTe u OqA4h7Y1Pr1lLt0pIQ0zISK7U G65HO50cSGhk8L0kJT4C4RqKA VvkhsggcetgJN4EBJsZXKokG8 7 sUYfCBdsKy8eu6E0x139INCgG WMjjE93Mk9jeGgoRVSnpLEGtK 8owunqy6dllxthMcHlPUOgKEg 0 ZQm8EAIueGinZsUwZKX4NiO5Y EL6jJMsqK5ghGeudpveqW6eQq c+DzVeJVPpjdA4S7LgXdj4VWL z aFxkKB3ivIBcRPfwLr0nwOeid ZpwQA0oOGFfsapfSBBujF5gYE EkcYXxiMqnCR4hAMGjngxuc54 0 KxAsWMH3VTHugUDsM8BhsF9rB uVxXKMlXQTkX4DhwKKpCSdfR3 06LCczUrL6EZGcerOrE4NwOBL s kMwjIqO0f6F1Ol5OGLcsFP18U Y68tBEfn6M8eJU9E3UuNTPswf sqwkgxaYI4BXDhZPVbrB98uUS k HVboCp7rx0D0c021JTOzWYPzq N46Wn6nmZevXORwvHZKsM5nsr npx2wkeqzjXsHiBXTwGMx4PDa 0 AVTwbGbmZxYqFOI9CwM9IFS5r XLzmB7oyUrektatiK5fNkk+T3 D4lPA2qCBmwZaabNG+MV17nv2 8 P3KqKrckVly0SODkBOC7uKR7u V9rABJyUQlwt4D7vUC2E3Jwfp Njxh8py8zaLNZtQCuaC29pqRD w e5C0TADrtCL2ISKfoMofSyAda G93Oyc+QNJofJoim7ZcHpqsg9 vxs7kxuDn1IvUqMRQgfuDikZr u WDB4b3EzZj34F21zYApyLMEkJ VLtETPgWZBtuBjhiu2ghL4wTi 8+IOYvgZY2yCT0rR6tHoRsPlO 2 DDwuP622KxHdgMDgMdcyx9gwl 3ztjPl1MmPlYOLedmBnwJquMQ W7l6YwCy78U8MusLynk0FnWcz 0 ux58jQPmw1D8cAY1W9AmNGJsb qgwiHVudFopSY4kKCZdwclrIR IrzW6fUMYhS2d5PsDzTmY0KYk u G1RnqkW6BKAisXOfXIMvpXBYt S7gdutzz0cdmgjwPmSdFUOdKI f7QSj2HLNqeRlqEiXiIJM1UfM 2 UAT6hFKtiC5biDehchwzxM0eO yc+TJa6h0tknSNzFM8rtYH5CE 14HB82jEZtg1E8hND3Y5LzMFE p vdgtjvhxeNA2NOOpBXPvuY72Q b3ynXnlLi1uNLZxSFY8QMYdgN RcE8QolW8pPgQcIRBvFVVgK2X l hDLrLAfaK712VMerUuS0HWGor hFzM5QyLGAvyKogJtU4k6W1Gf 8JEK88SV27JF51rGLfx2Y9fXI 9 D8JzAOUqdpbhudxblWF0KFQmI MPhsM53Fj0flKomHr1gDTZnVL D8KZBsmOJxG2JgmM6wZtVjROV w VNWlN0CauHLbYNshV896LMqoH oU9IHLgndGgN1NcOAZusUjrMb Z6o8C5Oc2NLi07DF80IV21bWD g b3A4zKF0X1MbCXNbqwvymryeb TM6LBJyXZOveK10Fm4bqThrLf 8hGYYxWCN9GJKgtCUuA0YpxL8 y JzNsUCQrZWRiX4EpkMVcZQusI 057SWzsFoP9LHVjffIbJ9UwZA EoyFwrScS0h7G2Gz2BITvmtgw 8 Z7LxXecdiOF+WL30WLEzFI66u IWbbPBor9okiHy6YvRmPWIjIP P2zAtaKEhbo3WnKXBoJ62mfLJ w c2U6 (more content not included)... [facility] Coding Summary. CD:[id number]:[id number] Gh0bW w+PGhlYWQ+TD1SBDJjQ59udGN ceX2XQ6bJGM6LGLZOPDAIQO9M AM9etBX5VXigK2ZrroDr MjvzjTNnZL22EKz4YTS1pRceV SwfqE4ihYNjD1u5HiNeTR14kR 81TKprJCWuYcK5NqMtgrdaiDZ y M3auKnDxzXPoYvg+PHRhYmxlI HdpZHRoPScxMDAlJyBzdHlsZT 0xGe6lUWDdTJYxrFmecTWlDiB j a6xkWXUrIEbrRD9yrZouU4Jje WZ4MFYij1q7Qn97iLN+PHRkIH T3bSabWJsbi862DdXzp4amZCQ 3 bJNxVJwkJYK9K78sg5L5NFHpJ ETnTJE1rLF7lR6lxBkaktazP2 LuxXNhHrR9NZG4pFUrsX9deZh n jemxqK1nZmb+O26WIL8TPXQLJ T0ZCeu5I5ZhSpbbcMU+PC90YW DbLF75lSVmdHTyx1alvCz9XiD w PDKuMHH8uMhuJQayr5MiTRTkN 11vcFXax9K3GUWwvOhehSMqLq CsiDF8lH6gZWwgwmjbf2mlalu n Kplqn1fpip77wV84S11oQGuwD FLhFQN2NLZnNDZdaOelmh2udS 9wIi8+FSyqu2aul7orrMj5YuU w MANhkfXrcQucAEH2o4PrMz71V 9CpkJkcu5JmLbn1zc14mAEnu9 R9iXY0OEvpKLTgyJ9xXIijUqF 6 SGVpWmSvwV63vNErDOzlBf3sw MdhpWmuXW8yLHUcawglRHRiyZ 0hMLKkgOPcsWqeTV7yFQKnmpk m x593QvCmEDI8ESToqRFkQ8Ihn E2pIuFdRJNuBZJmT6RzwAAuSE axB898UMiiUqR0USZzmdObU4Q s CLRadBgdSnR6d5A8Bt8Ch6Gvq xxsPNI1UTdpRQKkRiMwCwCqBz U6F0EkRcy1COFinOcgAP5cL1T h IHObvvbjrrgqeDA6MXOxTUAce X21qYGwSNbeZa8sv6S7a539DJ VoEPNlmP08Fv4yuVupKXVikMT U yE8dsesbd2hmmjaqGaZgHOQuJ Rn5IFx7CZFkpBpxZjEhGYG2Bp R1MYV0uHMyoI3ssCmfyvwmkT7 w Oyc+T59xlM4kYZJ6UTI6lthlQ DQdrwFuMU86RE58C1ZbPljdjW FibGU+VPQmorHxsUuzFV2cRrZ j s3wec4UzPIynW8VtQXRtJOocD qf2YZPvMZD0pFB4iR5wEVQxHO ifz9Z0gGG4X4SgntJfax4kq5b s ZZVhXFadX55zySJom4W9YIKjj SJ6QWXgfUytDsCwsP51Fyn+PG ItyPzpp6LaYisrs6gzz5divJd 9 KpZxLMIximZxiNlqMZF8r1EbX q69G82zZQrhLNYxMUTrCEWhBK IucRxkzw0njJ7kMk6+PGNvbCB 3 qZW4rI0sPMPcVxA8IDimY403D iJgjRWzHjvaq0hha2scjCf6Io IqWFBoydTymEvnPHS7s3EdJx1 8 V46uHZxiZNIbFICaRCXrZQPvg Cqlii0lzH9kGh3+DG9dy1rjov 17fJ91lGL+BXUzKON4tDsoLHk w BLVzyI8aBSkhKfS5IKZnHhRqb E60sGFgIHllYs0kkUiovXfgDH 5bFFLckbjsy142PuTjx9ayRFM w fYAqRXvvKQB3H21zq4S0NGPaG MXmXZB8iUT6lK5jrXeyehrcuC ActHxeltAopBatQYenKStxI10 6 IHRvcDsnPlBhdGllbnQgTmFtZ Mr3K6HvWlb1MMTcgTlfYL8wjZ EqRZjqRh8quQiocHmtGE6jGOL p nwxlf469XdXtl8xwOQCidEWsK IwtJKM1U97vm3G6ESWmCHUoOO E7iHO0vP9cmIxhbihdfUDkhFq g rmRewLwiHMyqLYhiF702BRLdq OudKkQzhkPiTYKdbXC1WP95KB 52yDXns0S2uDE9D2LhTISbngz t fcxyuIG5WWZqEBYguP07Ii6eo WwpZj2fSKWzQLX1UCIcyIUtX4 DzgL6rEvJyFIBeRDNyK5GugVW t EQeoV521AYvmYxJ1FMZfyoLmJ 8GeVXNlkChtZwN7h9Z8Tf9NU7 I5MN16IV04bVPhb2P3dXK8K7T h HWYycfmtrmwaqII6ZMTtMKJse Y88Tc7yfQrvYd2zBHRoYSQ1QO BjnAOhB1OtdJ7uJvShEVNbKZD w I6JehCRmCAqnZ294LUtkDdW5V KPflkSzI3RlXTJrnZbhMqX0j4 F6Po3HMSj6KB17CJ51pBVib6G 5 uRZ0V3FqBHSbwuwwxrfrzPA1U RExPCSvdB26Fx0mpUjvVi7qUL ThTOX8SIVlbQPqG7WsyJ8dMzS j JRNkLFNdR3RwfYZxVJrhZ891E OnrOjF1YMWdlrLvE0TcHHHxxC bqDvK8i2I1Di2JRHAxZL61GKQ 5 cDO7SW80XQ91Z6DzWdprsMYmg +PHRhYmxlIHdpZHRoPScxMD PrRnQjlVrnIT3gOd3hWNOpTUY v sLgjwTHiPeOjr4grBPHaCKeuD M4khOfhI0XuoEM1ZHRqh4o9Sl 16W74aG3KgqAF+UYZvnOO6lNW 0 sJ2rSzUvXfE6TJwxL511UmXzt LWuMtzyz5vxk3zrbLt0DzU0IM SdclItgJybMUD6m6QfKy33Y26 s IHdpZHRoPSIxNSUiIHZhbGlnb o2qyK3dYh4+TSAtfKZ1eJU1gO 9kQwXcPrY4AQobG760YaBsiII v Tekpy7kwc0lsfXk2FnKsWOVfc oKsyZiuILG1o7SrTn99M9KhyB yuv2MbFsr4cd62sNBdl5N6vSU 9 Q9XdFGKzhcnhoTEpcCkkKJ1yL NGmxmvsLUVlxN1cGMMaE1d1Oy GdPdC0BSbpH6FhduB4WLHymER g LWvcJTT6I61qt5Q2RSYuMAUjR NW8uGF3xK0eqQljufmbqOIjfW giuuVddYveKCjsFStqF447SOZ v hVnwKUUeoA0sWEYuaSGauPteR H0yZSAszcduAvJSYl2JAymyEV 9YDPhYNQx9B3VeTbq8LGVwjYw s QX8toXWkNNbdLq1lrYivvEbxW A6hUEByzmnfXRHvgO4hONWhuO OtqJidYP5bKFPkkoucr576InU x UWR4LCRgxAKeK7TcyG4kBtHrK SIlBUBxC3JveLCzFFqcE232NR fqQnU3JGOkumUiF5XcVSYopJo u DkY1u8S0Rd4gDt6oVK7zQUE8H V43SB37iGIff5R8iGM5H8IiTB IrzqgyuosdtTE7RAFhERDgyA4 7 gAVkOXklLg2ye9E2o717WMChT FAbeV96Ad6rcZjtAVLsjPNSsY 0hnnzsp4aoprcyPuPkYIAmSDe 0 IVv7YLUawTicYzGuGYH8SmM7C QY6sOZbtZ4mkLcrwlxtqY6gZn c+CuJjHHWgimJ3A4AiLkt2DDS z nQwoPW3mfKDvMFavQu4frZiop RvbIJ0kMPGyelbzDNOxwW6yCX EkeZPouRznMD7oBRSsfipsc12 0 RrSvBZH1ZDRccBAyP1BhvB4mW bPnKUCvNZNmI2PejQGpGBzkP2 24OZkgAzW1HKYqfuZsR9DpUWP s kLpgNgR3r7Q7Hv6VLYfxEM31T C10jDRvn6S2uEU9V1GpRNYwud jhomjfdIY8ILDcFLPkjM73cPD k SNlxKs8mh6X0u494NGOrJZOjv Q88Hz5stYvjCAIwrJMFbM0lsy obc5ttdvhdWwWxLYLhXAl6VWk 0 SZUtcItbYpLhFVH3BuH4TMN0o BOgpD4koZudkanksL0sObn+T3 N4bTX3wXLblKexpAK+CJ07fl8 8 N3PlPtoxKxf8OHCrJWF9wVW8w D9eUGDmJEljp8B4eXX1P1Jksa Kanp6pe5xdYAGxRRogL20ncSP w f7U7TJMxlXD2CKVdsIidCfAsd G93Oyc+CDPvtMzkh1HmEjfch5 djg5fipCu1PeGiWLQqxlVhdQb u VFK7t4CtAt06Y53mDUyyGQKzN KYiBODuLSVscGsowh4paE6wMh 8+SIHvfVK4dHM9aQ1nYzXkRyB 2 VUwbP825XfTacJPvXobdq8vdx 3zanOi9LnVzWPZqpgBhxUpbOT O8a3PeAc98L0SxgBjpt8KyAqn 0 uz26vGDck3L7eLT8U4NyWLFjq gmbkIVezLjbUD0wSZWvbjhiSB AnnL9zSGLeV5h9IqZlLbJ4IKi u K6ZwakT0SXKaeVJsWQMbhCSAo W8nkkyii9arnzpbRwJvFPKuCD t9BYr7DOLfzNpkIaHuAHH3XrA 2 ROQ3lHWbkK0kuKqinzccnD2pB yc+ZCc1f2qdzLPaUP9ogZQ1ES 59IG87aNUnk3Y9bEI6Q0BbULZ p rjljckbqtTD8RCAkTWYxuJ30M z6onNegFh7nWUSbQCM3JVDkwT MrG7KzfD0dByEbJWNgOMCoI1D l qLOuXVbzX591PHiiMzI7PZFva ePxV2IlPECvpPehPoD2m6Q1Dq 4MMW14GW63BO61nVYnk5R0jVE 9 X6WbPNZtoxhbdtowaGC0DWGkP BQejT69Te1umDasBi5hYVFtOY R7YTUvtTYeF9NggM8cDbUiDBH w AJIoX3EmtSAgXMoaQ357PNasM dV9AWApcbUvG5EvYFQykKodHv L3s2C6Rb9IJp32ES62NI88kWU g v7V1lFR7R8GkYTVuajgxmpgbt IT9KWMmIZJlfV61Sa7vkNylUr 4gDGBrKRN4HPRbhJHxZ3ImjI4 y BuBsIQOrOGWnH1KpkJYpVBvbG 963RThjCwQ4IUJmxsYaR1WlNR LfsVelAwU9b0P7Re9ZCNivtsc 8 T5XrHpvezUD+HS07VMTuKK39m YYeeTRuv0khcLs9EnJhRVDvXG K4lQxaMEbvy6SlZSOkO75zfOV w c2U6 (more content not included)... Normal [facility] Coding Summary. CD:[id number]:[id number] Gh0bW w+PGhlYWQ+EU9KYIQdR34szAS nmO7RO2sXUG2RVFPQVEAVFK3Q PO3ukKL2IHpyH8QzcySd VdrmlOAwQX60LGh5ZLR0xCpvV AhdfP2edWWyV3x6SyGgAH66xI 17ZRspPWYnVvQ2NqOppuzksOE y P1szFkAprMSuOmr+PHRhYmxlI HdpZHRoPScxMDAlJyBzdHlsZT 0jYi1hDRNwECTzzTegrPMmLwG j v3zwWHSgZWzoGE7juJjoI7Pto CA5WNUbi8x7Kw66xLU+PHRkIH J1aPgeLPdol005YkPhn0euVDG 3 zPOfUBzpRJH8N62zk4D5MNDqX DPlOSU3hVY2kN3vhRffotxpC2 NlmZEfFvF4QBX3yMSzqB9ozWc n reaprF9tQzn+J35HBR4WOLDRA K4SAel1P5ZkHmvbzPJ+PC90YW NdXI67nJBziOUgn6kreFb0FzN w DWTiKWD1pGzvXPqnk4BuNXRzX 63pqQUvd9D4SRTpdXnzzNQsGr HdwTJ8gV1oMWvfsannm6ylppz n Hlgmc5zove43eH78R16bGWzcD MNtSPN2EZIyFWNorDcmbj8ciH 9wIi8+HMxfx2xzu9csdRr1LuG w MWDmsuFisRfwODR6v8LiEa51M 3KacLici7SzTux1zk20iJAgm0 N5fNX7AHjtDPEmfZ1bWUznOwK 6 JNBuNmHezE86dRRcWBowLh3um GonvBeuWD8pEZOfvphgRDIweS 2tNQLotNJvxUngOT8lEYPszak m f344AnJsHJB6FABlxYHsU5Wnb V7kItFmOTEnLDYaG6AimNNkSW acF620OUhvPwP2WKRrlhWxM1K s WTJlgWouXwY4d9Q2Hd7Vc8Ezq zrwUHK5DOlpDUYkFlFqYwXiUu K3R1FgUau5KRHkyUwbCY7cD1W h LUAfeanlgynxdAW5ABPlHFYxr P80rXDvHWbiUj0br7V9d720VE ZfXDCjnV74Pp1tjGpgYOSdxFA U oT3tosllm9xkcaafLoEsPWHuN Ua1WWa0UAUyrMptEgFwNER6Lb J2AIE9rAPbeH0hbOsnretygC0 w Oyc+U79erO0iSQU1LNG6ccdlM VDuonZnOD19IM00K2RbGejomG FibGU+SLAdmnZfsCkmTO9qAsA j n5dgx6NbUOiqV3SvXUIpNOmpH bb4WAYqCFF8vLQ7mT4lHHWyXV yne7V4sHT8M9YuezJozr4uw7g s RCNqZBtzH33qmVLzs4F8JRTcy SU6QTCjcCxtGzPujZ99Vcz+PG PdiXhvb9RkBnsmi1kkh5ahwJt 9 IpHbBFCoovXrqHysZZT5f0BjD d57L89wLZiqUBRbMTThKAAnHG HgvEihhy7iqC3nKi7+PGNvbCB 3 pLC8sP1bIFCkHiC3GZxfH297D zJxhOAgYdiaj9lpr0ctjZk7Yn XbLAKmezQnlNlkLHH7v8DvSx6 8 X15aARxcDQHtQKKhFMHbFOJor Rskme5kiO6ySv9+ML6xa1slhz 92oU08hFG+EEIsXEX5hOsdTTz w WKQoxN9hXQzfWdL2VEXzIwXkc K65lPXeCEmdTl3waTjzfKbvST 5aTQAlamioi355RrMrn9noFRN w yYElTPyaCOY9X57xu9T5ZPCpT DAxGQO3jNB3aQ8feNolxsumbX KqnZenxnTdhTgxAPlhSDgvS07 6 IHRvcDsnPlBhdGllbnQgTmFtZ Sj4I9JxZvx4UDEwrXxuEX7dtS EtUJpdPt6eqWumoVunIQ9dTXD p nbytr784PoWiy9laHRQzwYKhD UqvRVT0K52yd8S4TPKgRDTxOU F1eXF2rI2wsDejessdwURqsQu g adHwgBqzZZtpVJmgA034SFLay CjsXyHswkCdRFCztOY9IV46MT 13xWXzv4R6pHK1G3TpJVGhtms t zlmfhWP4IZLdXAAzqW87Hn8pu TqqIo7mNNOdFUX1LHHbgBIiU5 KfyE6vPqPjXVRmAGGxI9FztLZ t JJayZ399IHkyJwZ4HEOjhnYtO 2YhYXRorYauMbL8l5U2Bv9XT6 V9SE45HS46nHXke2A7jFQ7Z1J h PNLpjlzollmyyZD3DISmHKFss C80Nb3kwKwaNq0jVOIeBKD7VQ SzySJqF7VpzY2lLrBjNGCxGFN w T3FruZQeHVgzW778ACudRsV8N RSqaaArR2ZvTDYwsAfsVoD4r6 K1Sx4XLRb5DW79NJ85wSVho8Q 5 tQC2D9MsKUXylkcqxigfgDW9L ELjDCGnqQ26Bh7ozUdqHg2pOH UsGHR2DPIkmMWtS0EpnB3jZiZ j DJXoDJXwG2JrjGHcVObfK527T EbqHaP8EPKtejEeM8BsHVYnpY qkLwT6v2K1Vf0KLWFgSR45QFB 5 vSF1GX67CS61U5AiNynqtHZtm +PHRhYmxlIHdpZHRoPScxMD LtZcDkcLnbZF2bQr9bYMDxDPQ v sIyxwFOzKaPwt9qtPRTnEGagL K5osXuhZ5DgqBG9JCHby1p4Ud 31C26wX9KmtUG+TPQjuFX4qSL 0 fR8jOwEfPyQ1PQnkJ680MtOgp JYsRalwb4fwy1ceiYx4DkO9FK WcjdPusBciIBM6v0CwDs88O46 s IHdpZHRoPSIxNSUiIHZhbGlnb c5jjW2wBw7+DWBxsDM4xFW9uA 0dKtThNwW7QYkmD417JfHruOQ v Cvese5vcq0yuzAt2VfUrLBMci hRwhXeaODC6o3JhHc75R2RjuW ara9EfVbg8bl59aANfx4V3uAS 9 F5TxFOInphwcoQQmaMisZK4eF OEvsbmjBZFafU1jOATpD1h2Lt PnFzK4XUzmJ6FbeaU6ORGaoYR g JCynUHS0C24uf7O2QEIrNFHfN HD5qMJ1iI3dfGakzugqnBNraT vkrbXfpEndTFoeTUqnX383FEV v sFuvDTIpwV9qXSFiuOCzrIluX V9uORJwlehzQyGCRb5XDrkdTH 6MSSsEPLt3B5TyLxh4NNRbgIe s UK1caAGdPUxmLl2wtKmizZsmP H6eDHSzmftfMDXflZ1tMABsoS WqoSgrJF9zSERedaziq910SnA x XTY3FSAfhTAhM4FriC2wBiAjW BBrCYNeA3TlpQIhJUgpL422HC rwWrF9CRBrmxBlF5TkTPCisKg u ZeF8p8V3Me6mLo3yOC2dSEY3N W98BC24oIJye7Z0uLW1I6EbJU LqnbmsuoucsFR2RGFiIUAucV5 7 qPXbUOaxHt5zt2U2r116COBcB YUhgA41Ax6wdKrnGTNbhXBJmD 9ifaadg3qwumkmWqEjDZCrBDq 0 HHe2EJJkpNagNrNhLOU9QzJ7J JQ1fMHnbZ3koRtoswaoiQ0aLi c+HpFyMKGlcgX6A5GzIun3UCE z aPykDQ0njYGrOZokOn5mbTitm QlaDF6uNTRvoqfdNBKecU9tHB DbyHJqrRsyZC7nEPOojvjtz43 0 GmVdPDI8TDCalSGyB7PruK7jG yCfLHYkVYCnP2BemPHyAGhhR7 68LUvpHuZ6MURqrvXbE7AeRPC s fMyuIgH6v1G5Xx5YRLquCW14L Z81kIJnp4M1lEB1Z1QiQLMgop keamhkdTE1VJWkUVLoqE69sBP k ADgjTh2gy9S6i355DJOwAAKbk P99Aq6phPzhKNEchEEMoW9rvm klh2wibovjJwGbIUGuKNh5LAg 0 HQPvmMlkIlRgXWJ3OuE6BJD4w TZxnZ6ldHsvdueuiV9pWfs+T3 H7jQV3pITrkSufxWN+YF19ht0 8 Z1KuXkidZog9XIEpYJD4uVP8d H1vOPZtEMgaz2H7aHD0L2Yzkt Crgp1yz3jpLGHeKKhvL40tmPV w p2E5LCIzxOT3RMWudYsfWzMnj G93Oyc+LKLxsToqz1HxQnbui2 iae8sdaHi3EqOjPRCgerRolHx u LKQ0y2XcZw09O42mOBxhGCQxV YQlLXJdLBSsyJjnay3udB7lDy 8+SYCkaAE2yEB6iP0yZbVnZsV 2 CFujM830XuKklEBqCoohv3jel 3dyhPt4XrLeXEGvdeAuyMmyYJ F6y0XvPz74C6HolVqzx4MeHoo 0 sm66lQVci7K8kUP3M0BrISEvh codjGJgcEvbCG1yTLJjcmxyVS KkdJ6zXCMnC5w2ZpLmSoC8UQw u C7VcnmK4MKRzgKUhTFCsmGRFv O5bkngwl1qiwyljDhPsJEFfUE u7EHp1SLNxyAcyBgIfSXY2StE 2 SLZ6fQRqoU2rtBxeodgyxS4wE yc+HBn5l4wwmAZpIT9joIK0NZ 43PP22nMCak8W1cKQ7L0NgQOA p ugdxnixjcSW4BXRcOGAbyB61S s0swEayLl5iFQZyOLV3CIEqyQ SpZ3FbdE9pCzCdDBAiZECxW5C l pTNbXRaqK306JMbyLgS7ELFso zUlA2HbLFIynVzqEvA8v2Q0Sn 6OVR94CA44XV75oHCvr4B7kXL 9 F3ZhAGAzhwcswgaurUZ8JPAiV PVnxX90Dr6hnAmaXj9kBMEcWO J6FOAyjETeI4RycP1gZtFqUCM w MHQfP4EarGVvTAocW186FZhnX dP8DHXntmIeZ0AkQKLtiUuvZc H1v5X8Rb2LMl93CA65HY56vTO g l4W8fHY6Z0TxXMYaenhhtctxh DI2OAYkVWEuvM94Kl9ohOhcCz 7eBFMtEPY1WLOpmZOhK4HwtM3 y HqBbNMKyBZFwJ3ZwySPdOKffY 486WAevClA3DVVxhsMjO0TwKT NrrRssGmJ9i7E4Sh9BORphizs 8 R4HcBfvyeKC+JI98TECzHR53m UTkjJHce7dsvFn3OdXoCPWdZJ X6yBptVVadg6YsRFYyV62pcOF w c2U6 (more content not included)... Normal [facility] Physician Orderon 12-30-2022 Physician Order [id number]#1.00CD:[address] [facility] Procedure - Woundon 12-30-19 Procedure - Wound [id number]#1.00CD:[address] [facility] Consent for Treatmenton 12-02 Consent for Treatment [id number]#1.00CD:[address] [facility] Multi-Wound Charton 12-27-19 23 Multi-Wound Chart [id number]#1.00CD:[address] [facility] Nursing Note - Woundon 12-27 Nursing Note - Wound [id number]#2.00CD:[address] [facility] Consent for Treatmenton 12-02 Consent for Treatment [id number]#1.00CD:[address] [facility] Multi-Wound Charton 12-24-19 Multi-Wound Chart [id number]#1.00CD:[address] [facility] Nursing Note - Woundon 12-24 Nursing Note - Wound [id number]#1.00CD:[address] [facility] Physician Orderon 12-24-2022 Physician Order [id number]#1.00CD:[address] [facility] Procedure - Woundon 12-24-19 Procedure - Wound [id number]#1.00CD:[address] [facility] Coding Summary.on 12-20-2022 Coding Summary. CD:[id number]:[id number] Gh0bW w+PGhlYWQ+XN6DVCHcT49ebCM igA4RN3dRAY1ROZZPXVMBWS8T QX6cuFN7UBayZ1SzuqHw NtxwnPHeVZ77XTs4YUF2pSqwT OexdS3jnTShX9m4FuGeNO48vJ 13GBvfULLcQdQ3AxMfygxrlLM y B5lvVuIiaWStAgx+PHRhYmxlI HdpZHRoPScxMDAlJyBzdHlsZT 6wQy6hJJMlMESmfXheqXSoUyW j p5ucPTJrNXgaXG2hwJiyG9Vxr FS3VJJmk8h5Wh78iXK+PHRkIH T1oJrzCXhxs227HxKxc9zwBNK 3 iUBnKIkeHDF0F46dz5B6LAVgO SNyCNB1dWZ3gZ3jdPdsgvycN6 WneITxIzV1XBO3bYTdvU8jhXo n hgztoS9bWjb+B95UDZ7DOKDDD F6RDct2T4EnZdekdAZ+PC90YW IfNM43dIJygYHum9hnuHo7WoP w CNSwPZR8oLqjCJbkt2RlLSBaO 11zcTDln4O8OSPfmBhjyOChCw JqyPL0aX8jVOvprjpep7skaft n Jdelj8fcor84jT56Z03uEUzgF YSgYMP5MLFnVZJcwAster6plT 9wIi8+RDnrf8zyb8vvxGh0TmR w JYOiakRylXrpYQK0s6MsAf76A 4LhkTstl9ZxNkp0lg41bKLij1 D3jIV1RPqvRIDjnK0sKZmfHwK 6 PSVgJlTcxA13wCKtPQayIa1tc CejkNnqSL2rZOHmhcirXATotM 4iKKEgaCYlaMnpMY8tOPJaopk m k745UyWtZRM4RDZsiBHxH6Jsx Y0dOvWyGMTnZMJgI0UsnBQdKQ faY677XKbmSbC6ASOyadSqQ9V s XVSizLmsDhW7y2C8Qz5Mg0Hwc azrUVD6YZfkIWTtCeAzMuWmJo X7V8YgKtg7LRJlhFqaOX9sB0Z h JJViqvofgnporIL1RDPzAXGde D45dCRqOZyxCt2ca1Q8l759JY ThTGStmH81Bx8iiZxuKMYoxDL U jN1racola5nzgdevMpChISDwW Ad1NOe1BXKfjGrdAgHfYWY8Br M4QFH9zSPaeP7mxEzqewxixN9 w Oyc+D54nnT2eGAB6EZY6pdlnG JKpriKbLG05YS54Z7BuSakxlK FibGU+YIWracSghZlrUC1hCfL j t2vgy8ZaBBnzS0OuSSEfYPhfU rt5XODyWIF4eFJ9zI5aSUVxNY hsl7X2aBB4G0GarnYfuo2hw1o s IUQcJOtsS92sbCVjr1Z5IGCfa GZ9AWNusRirTbXnjX86Bfg+PG XitCnoi5WmNshef3eul5ugqZn 9 CmWuZZAdjdUgfXaaTAE9s2FjF i05Q05kTXbyFTFmMOMeINFhBK HzaItblg6wnL1eWa7+PGNvbCB 3 cYN1eJ3sOEGxQhR2SIxkY022W xXigKPzZynod6smf2rotMt2Wj UlLAQslhCubPxsYCB3d7SmVr0 8 F36lHOteILBqWZLxTIVfUEEie Xjkwy3mbA3mBm2+BQ1tm3fohc 15jN45dEQ+ETZmXNY8zRycSOq w PLOqyR8mBGffAuU9QZJaYkWjx Z69dEJkXMyqYd6oeSjnhSvqSU 7nAXGgrlapl047EgPer3mzXWN w dKYuDPouXRG8A69wb1W0LDZaM ABfRTO1sGN2uY7xgOwpiuuyrH HxhWhzbdFuhPmlYKbgZRlwN37 6 IHRvcDsnPlBhdGllbnQgTmFtZ Cw0M4PfAkr1EXPkpEypDF5nxX ZyBVwyDj0hoOddyExvCC7yEPD p zmnvr267RfOsw2cwABVheRPvT RneZCY0T29tt0P6BINqMGYuAD J2jRP1iO5scPzuapxigILpvWy g jlWulQukSNyuMFxeU617JWDxx BsjNyHlnfSxKJTtuIR0WC04PD 61cMXho1R5sOQ7D0OrGVUitjc t iqfbdGR9IWTjDLCkrJ76Ca6ph LezWu6xIOHiENT1EMOpcRGgA5 VmjU9yZqQwKYTiENLoB0YnzSP t PSwaK749QWctQxN2NRTdmcGkC 1GgCQQcbOieAeP0y7X4Va7TX6 H6PY59WR80tFSvc0B2oZU8D3G h GPVkzvtjaspavAW6PSPwRHZth R16Fq0kxGxqJv1xVXZjWXQ9KR VjuMUgW8IsuB7zMlIbEFWfIOD w D8VbiHDzWBfkT709LIxrVhB2C ZCzezXyI5CfUSPehOseKdH8m5 Q1Aa8IJSi0NF08GT42fKGpn7P 5 bHT7W1NvVVKgbmgnkpchvLJ2W CXaCEBvgP43Hk2jhJdpWt6aUC UnBZP1OTRidQMfV1BypZ4eVvC j LRQwBKFfP5NwkFRoYBkpM023V OvjIeL7MLRjppQuR1WsQCJewS ujKiE4t6H6Xg7VQCRwDG46UXA 5 pRR4YE14OS79Z4QjTudlgQMgx +PHRhYmxlIHdpZHRoPScxMD FuCvDkmZpqAL2tYw7vBEIvUOF v sJhleWGkSpDhc2cfLWZnTMcgA L6cyWwgV0DzfRP3XKPpe8d0Cq 85I21fN6HxtHM+WYZumVU0gVM 0 kK1jQdClCbD4OGxfZ216YzPun XMwDlldr5fqa7aepCk2RyK6GL IogjXvjBkoGMA9g2AhJw02Z76 s IHdpZHRoPSIxNSUiIHZhbGlnb c5adD8aZm7+JNVhkVR7vCC1pI 2eEbDhTtS8AJwsD209ZwJybDC v Wtbpo0tas9rsyGc5SpYeIGXkg kLhzYlyXTG8p8AdGy27U5ChcJ bsh8BmFyb6in83aTLom5G9rWF 9 T1GoBKQfbhlzyIDsaXcuLS8uZ LTrfsbrMXEbuQ6yJPRmR9u3Ts UoJqE0BFtfV8XxlkP6KGFzxHZ g LSfpLGK0G59pi6G5CEOiEVBzN GE8zAJ7sG7snJxkibhzxKWhuR rmghNucGdwKAwsRGiqJ090IUR v tSsrMOYeyK0uMFVxjCRkrHdcC U0dIRFmmmhyTkMDQc6NBqbaXP 9DNMmEBSn7G9MnTsg1LQFuaLh s CL9mrNZjQIhlOs4lcGdafXpaZ V5nGYLpjdopBEDgyT1gYFTxmI EngFqbDI7aWXDpthlad666QgT x HMB1KUSysURxR3NqlO0uYgPfK TUlAHIqO7SbcOThPTnrA219LY daPqR8ZVUjbfViG9EpFRLmxZl u XiT4l7C0Yr3hXu7zGN7rLSC1H V51LJ03jNXob0K0fQW5E8OzOH WekwvvjggfuZG2HKAhKADfnO5 7 iUGcCXalYt8rz0D3u521JQXyY ZUjuY33Tp7rlFvqQMYuiXOMpO 2jmkwpp0howqihFuAmFHJnIHn 0 EWj9YMUsgIwdShEqAOT2MvO9B VC2aKJhhR9gqWlyldjqdO0iUg c+SdTxJVYlkfA8H0VuBpe1OBT z hIiiNT8aiQDmZAzoIa5rvFtpo HhuXT2wFBMssvdeUAGsbV0fOV HcxSEvrZtaRL6cIARxnnmte92 0 JmYpDFY3QIZsmJImZ3CvyJ3mJ pOgIWLpNDAnE5WwoHIeMGbwI2 10VYloSfT5IYBdkbNoF1WtOIB s mEjiWpH5r8D8Kb3LJNqsRO91V P25fCNni7Z7zGA3F6VpPQNxqe rgtfkjxIO7LUNgWORnzE52jOF k CZjeRw1ud3Z2n035BTTlTYUra Y00Gz4jnBwxEMGblKNYkO5vif eks9eigtzoPkLtHUTwMFw3XLx 0 LURkfHruAeBnGGX0PtO2DHU4i FXwoU0piWcnptohgR5hAqh+T3 B5uGJ7xNXigEtciPA+AK94kc1 8 K6UuKkidMzf5BSTzMKE7sOG3y L6zIANcKAtgm5A1oNR4E5Wjbq Wfue5dm3xxIHUsVVtuG80djXV w q9Y1XXEmoBX8SLQfsAgyXgZeq G93Oyc+TGWpwJhuh1EsQgcuw3 hhz3amwOo9IqNzOUQiusDvrDa u AQF5n3MdUb37D79yXDfmYDDxU DXwGHFfYABtiJrtkb6jqB0iKv 8+BDTeuXZ1tZG6uI2sIoMxIdI 2 WZqhW161KoUerHXrNoauw5fti 9ysfUg4YbHnHXFlzsLkhSbaYO P4d7DwYy31C8QjiCrvk8AzRgt 0 xr04vYNzd5H1jPZ5L4WqMFRgm zfqgXGvmOafAH4aCKTryxsxXY DgmM2fKYHgT9o9QjPqGnH6QUn u A8DezxX8YYLteFSfACBytKLGk V2phuboj3vwkqkhTpZbODYyMC k7DTl5GHXxyZfyLjTbVHJ5YiZ 2 AWW2dGEjsN7ncWdlzfywhW6eX yc+FMi7i6izkKRmVU4uvPF4QQ 94NH62nJJvl8R1bUF8R2AyKJT p sypweyiboMJ4HHSnNLXwxO81M q3cyDijFi7mMAOyPVK7QHWrwF UxG1YbgY6lYfOyIEKqLKBdQ8P l cLUbADbfO892XMifPzF9PSYwq iGcM6CaDQNfrItvTmY2b0G5Gd 3YZW09XL85CH72mMMct3B2aZP 9 E8FtBVWjudidnmrgjAV4DYZjB HGoxJ23Af3smEbdNt9hDMHjMV I2KKOjcRSjU5QelY2zWcYvHNT w XGZgX0RzmGZeMLcuR484RVlpW xZ9SDSyeaRuK4DkHCGhfZsoFq O0p4K8Hr6HFc18TT65VH82uRU g i8D2mXC5V3JsANWnztrwlqxkr JX4YNSoYOXgvN26Oc5xyHoeJf 4xANJlVNU5ILUjyODvV5FryO4 y LxTwWWTjNQPdQ6DylMDtDVpwP 968SKxxOmM6YTHbshNsI9WcBB SfxPicWgO5j3C2Iu8YPZsihvk 8 V2CwRsaqvEO+KE94DEKxHE94j ZNfcXHvq7zpxRw6MwSwIZVmER Q2aNfdOWdci2VdWUCmA33xuBK w c2U6 (more content not included)... Normal [facility] Consent for Treatmenton 12-01 Consent for Treatment [id number]#1.00CD:[address] [facility] Multi-Wound Charton 12-17-19 Multi-Wound Chart [id number]#1.00CD:[address] [facility] Nursing Assessment - Woundon 12-17-2022 Nursing Assessment - Wound [id number]#1.00CD:[address] [facility] Nursing Note - Woundon 12-17 Nursing Note - Wound [id number]#1.00CD:[address] [facility] Physician Orderon 12-17-2022 Physician Order [id number]#1.00CD:[address] [facility] Procedure - Woundon 12-17-19 Procedure - Wound [id number]#1.00CD:[address] [facility] Progress Note - Woundon 12-01 Progress Note - Wound [id number]#1.00CD:[address] [facility] Coding Summary.on 12-12-2022 Coding Summary. CD:[id number] Gh0bW w+PGhlYWQ+VB6VUTWdV57lgPS zpF4VQ7eAKZ9YAXEQZABAQO3C VL4hvTH0CSvuC2AfoeKd PbjwwEKyOU86TPe5SGH3uIhtI HyeyK0sdGLfL1r9WyDkJF14sU 26NMeqHCPlXjW5XmIwwfzptQI y T8qqBiHshJUzBnk+PHRhYmxlI HdpZHRoPScxMDAlJyBzdHlsZT 0tZp4nPIPwKFFkvAktkMAbXxZ j a2xjJRFcGXkpHM2ihLuuW7Dcw TM9UUAzq9v8Th28bRV+PHRkIH D7gLlxKUnnz595NgXav4bmDDS 3 tZXbCBcaQOQ2K70vm2R6DBHhV TJhLBH0qYU1xD9dbBclqpfuL4 ZowTSlIvB5FJR0gFJypW9rpSx n olajtW9bAlm+K89ECN6BIBWEP I5ABjf5B4WfMcqqxYL+PC90YW LtPV01kJFuwHJyk7atfRu0DfC w JFQqLYA2cLocKSrvu3NgYFWcS 56duFPuy2A9ELWihHkzhXOjEp TxpWB9kL9zIUebxtrva4bvvje n Qydnk4ltxq46qH96M57zEFvjA KJfWDF2BGMwVSAzdZubfm4kjO 9wIi8+SHpir4ogo0uaeTe6JwX w WMWnuwQydQszBRX9z0KgWe10I 1ExnOaxn5JoIqh0xb91oQJdc0 W1sWA5GOenZVKbcM5bQCdhZwS 6 FUSeQhUmiT17iESwYZcaKa8zx YbwyJkbRD9xLOUvqqwiFABbgT 2oJEAghVKauQfrIV3kIGZokzr m l296WmDrUNB7JWQwyHVvN1Tiy J4kNgShCCEqVWDdA3OhaVZoRI vxU214CZdkOsB2CQXxakLyW1K s XLFuyTjeHmV2t3H5Nx4Au7Cum ojfRXK0NHzwCOPtAhWeUhXuZk T9W6QtIhj9WMBioPyyQN8hB0D h DJHgtijuwxlvcYK8KOEuXMXvt J17hBZmMBcyPz4cb4S9z578LW LbLKMonJ56Xp5vqFxnUKUkcSD U pP9cigvrn1djfszdVpWyRYWxP Ti1WUr5POBfaVjcPjLqJNY9Eb O7LPE1kGJnjQ8txCphgkwksF0 w Oyc+S43qmQ3aNOQ9RAY6mtqvU ARzisHpKC52RS30M6HpTbtarN FibGU+UQVvzsGucGdnXN1hAxR j b2rrj3PyJVgvE0GrWUPfOTrmG ip2QUBzEXZ4uYL5kN8wEAWrYP pnz8F7iAW5U3SdaqBlyk0zf0j s YUXhYIuhY69zxMHfa0C8YRQzi PV5SLTpmPvuTeOemP76Kud+PG CfiYcgk1GqYjjuh4tdc1ugpGm 9 BfAmWGXedcGwfFleSSL3a3AtC w04T49mKYcnDZXjUCMbQSUsYL YmdZnhvt6jcH6jEd8+PGNvbCB 3 vNQ8lS3fSFYwHbG8YZtxU220T bXnlZNxEtfkf6csv6wreDz6Yl VyCKAopiWzkSoeHNM0b0YiFy9 8 M08eBLkkPITqKWAyIWBqOMCiw Wxiqg5dtG2vEp9+PZ4zg0lndl 29vK54cEA+XBPuVDH1aFccWSo w BBVtwO8cJVjtVvL2TQIrUhVji Y65mIQpRQvvUr9nrNijvZdnXX 8vBGHwpqaab054GpHeh7gaTKC w qPGoEKoqDXP4A44xp1J8ZFLzY EIgCMJ1nSA2nG8huLvsddfgfQ VsrQvdthYocMhuWKexSLxkZ86 6 IHRvcDsnPlBhdGllbnQgTmFtZ Pp8Z8OxGgr3MNQtyIztDR5njO HmUCnrIl6wgUeuaIeaMZ4oOUQ p cglat849UvFyv4ezORZnnTGiB GxmVAO8F91ve0I6HHPsXPGlGA W8rYZ5eP4nsYjhugxuaFBiyPu g vpCtgQvcTXkeULcsD289MPTkd NupZrUcjzHsKHFifIB9XJ38EK 28nFXea3O0uVY6E3SiSNGguqr t umrtxLL7SEYxUFVksV43Pw6qx UvoIj3jOWOgKHS1ANNrxUUeG0 GguW8vFmUuQVPuOJWyB0KivBJ t ZEmbQ849WTzgUpY9JFRjmpOdS 8AlPQTgjSbhRyH0w6Y3Om2OM5 Z7TT97ZY61jNSlp3Q7lLJ8K9G h OCUplrcgrqdhmUE3HHKfDFPvc J46Hn3coGczCg5iYJLxKWQ3UO JhgSVeW7ZxhW6qSkAqYTPoVGN w S2RabQZqSHylR576VHeeEwA5A MNgtmLxO1TiLPPfuSeuIsV9e3 O2Zd6RDKj5IN10IP89iHBsm8J 5 mEC6F9LsINGfuiddzmxvqXB1I JJqCBRlmS79Ce1evKhlJo5dDH LeXMM4SLAquJIcY7PzmZ3bEwS j BEEsZYGeV9PtbQPrGTzzG638W MwtQnM3FCZdxaTfH3YmOPBujX vlCtD6w9D6Hv4JZRAvJB04KTP 5 gCU6TH23LY96I0GfGrfqyKQtq +PHRhYmxlIHdpZHRoPScxMD YhPgUqoWgcDX4dYy6eESPyLHZ v tIudyCNeJuJgl5xpMGVuQNqoA Q8cvByhD1JpkGC1REXjr7h7Ga 67R15sZ1KquTX+MCDbvGW0iQA 0 yP9cYmQjPjK6OLuqP683RnVej TZzJhknh3edy2fhsXv6FnO2IF CgynPcpWayIKL2w2VjEe51G97 s IHdpZHRoPSIxNSUiIHZhbGlnb o5gtF5kAc4+GYBdkCF8cBW8hH 4aNfKxKbP3EEgqC259XkWvyIN v Efedp1zxi5zjmUm6LcWqISQvv wQunGugMVD0t4PmLp03Y0PlvZ tyx5KpUbh9tr90qUSyz5U3gVN 9 C7RcAUOlrkaskHTcoYzaXM5zI GAhvfqmKWFljG8oNQEvM2a8Si NjFkL2CChbV7OgnqU4TTUgwFC g HUsfHSE4N82hk9Q7JQCgADGqC JZ2dSJ1kT3esWrlvuqzoUCtuK fvwkTnwLmmPRuvTXjrM195DUS v oNhtSEGzkM1mYPOzaKYyfIicX K2zUEOrdrmzGlIDZg4NTekrAT 0KMZdWWIu3C7MpGkh2VZKbeZn s LM8caDNyHYhqXj5flMqgcQraN F4hDWFwkitqUTKlqN1jNLJboS QxxGgxGF0gTXTnflluz813DdU x SOC5GGQdvCIeN1KfdR9sHiTeC ETxYNGrX0NksHUhIGglW860DL bpPkV2XGMuetXyB6WzGJBemFq u OxJ9d1V0Et8sIy2eRC6fHVS7H A60EP69zGXwz3S0eHJ9G3PmDQ YeedemvkgyzNW6BIObWGWytV8 7 aCGkQCuxGj9ib6K0c819QNQnR WDyqF85Sn3woTbiYBUnqXCOjX 2zgorxi7pfwihzRzSqUALiQVs 0 DZk6CNJfpHteQlXqXPY5VuL4G LE0hYPtzZ6sxTjffdrvsZ0jWi c+RxGxDHZwexA2O8AyZgl6XKA z xHapNG8ihBUiAYaoMj9egCsoc UubNW2eQDUuxkmzKNJkdN1nFZ WcaXOprYdjBV5sSPOnpetfo61 0 RwFfTIK6VMIhzMWxJ1FztC1gG nQnNWFiHAVnS1LbkXSzXVtzM5 64DDspUcQ2VKThlmFvV4OnJDZ s kVioSaM4o8E4Kg1UUEasPU35T I31wJCmy9X2zYW7Q2KjWYVuay hhrrxinPM2WZGcEASlxM29qXK k QEpqOf0km8P0s271YNQcHGEgs T42Pb1ixAknWOIxaUDNrG6qfy fiw4wkmklxDqXvWTSrHBl3SSp 0 FUVrnTnfNfYwBZP6RaF5NQX5e LJmpQ4jiOmkqpanoN3hNre+T3 C9yAG9fSUjlUwhhMX+WK68tf4 8 Z5OeZqlcUcs3IDWpXKS5pIR0j T2lKVRiPWbmd5B1gPY8M8Sagy Mzxo4bp7pxLLIkBHwvE93zxIB w j1S4IJNaqIJ4LQDipCvwOtRhs G93Oyc+KREgyNqxn1XeGdiyr9 egx4imfEd2IwKqWVSmrkDnhEl u ECS3i3SiBk12B02tVTspXXVnY YTtADAxTSXbdRlyca7qxR8fMa 8+RYGtrWS6tXJ8wC4xZrTbYcP 2 GUipD023UoCilYSbEsufz4agk 1zpkBd0BdSnEUUosmEvbSqcCA C9v9NbJl95Z5JqfWlis4YoNpz 0 hu02mJTyi0F6nOG1X5HnIAUkk qdrbKAlpEweLM9nEJTlgkbkAT AyaS4cBPHsU0n5GwWxLcK9ATd u G3PobuN5DBJuwTDwVALfiSCCi N7nlxrtj8lqwpeiLoRhRYUiZN c3PJz9SMZqtExqFhAtGDQ6MzN 2 YMS7zNDpxZ4ioKajepzueF2oU yc+PAr2p3lbzHWlVY8euZX7OE 78PH28aEBqy5K1zRP6J7IoAHK p ibfkxsvwxVX4BLAoEAOtmV36C z7ilXyhZa0sADKzDMT2UBJflU ByS5CmnP4xDaKgEXMaUMQsA7Z l wWUrXVryE387YJhcPuI8BSBxs fQrU6HgTZWaiFciUrI2w6D7Fl 6UOW18PD53OM02pUZga4W8wKC 9 K6CmHURwqzfdbmzgqVY8IHLgM DUpqB91Hq0qfGnwLx7cCFEfLQ C7BQXynJDmS0CtcD6hVoRjPLW w OYOoW9QkcDSwZWoqH031NQqbI iJ3MPKpgwKkC4FrHDIsxHqqGf C6t3U2Qb6NDk07DT58TP08nZZ g b2P4jUL7F1ZkEYFgsgmmmpves FH3IWVvYKZnsZ35Ci3huMuvLy 1tDFIlNTA3DGCwtSMpV4OhrX0 y ZhThWYMqHBAsX3XrzHNaRZmuI 706SLanQeD7WYRjsiMnT9KzXD RubLigMqE8f2Z0Ar8PWQsfjpk 8 Z6ZnQgxksWF+QC47MLAnHE86f LPmkHNwt9oetLf6FlShMMAkVT A4rVvfPXkdo2LuATTvD08xzBN w c2U6 (more content not included)... Normal [facility] Consent for Treatmenton 12-01 Consent for Treatment [id number]#1.00CD:12 7 Normal [facility] Multi-Wound Charton 12-10-19 Multi-Wound Chart [id number]#1.00CD:1 27 Normal [facility] Nursing Note - Woundon 12-10 Nursing Note - Wound [id number]#1.00CD:[address] [facility] Physician Orderon 12-10-2022 Physician Order [id number]#1.00CD:[address] [facility] Procedure - Woundon 12-10-19 Procedure - Wound [id number]#1.00CD:[address] [facility] Nursing Note - Woundon 12-09 Nursing Note - Wound [id number]#2.00CD:[address] [facility] Coding Summary.on 12-04-2022 Coding Summary. CD:[id number] Gh0bW w+PGhlYWQ+ED5TCWTgN69ekFM jzN8LT7yYUS3XHHTGQOMRXD3U FN7vfZY9ZBtdS0SjvvNd TjpbiKOxDT42MCu1QMP5oSamU ByejQ7lpATxA1z5SbBsEU81aX 62PUorKNBhQtZ1SoYxmviiyBF y I6ohZiQolUIhZln+PHRhYmxlI HdpZHRoPScxMDAlJyBzdHlsZT 1fPr0sYHXzFQVwqVunwUXiQmT j h3huKMTfNTriDM2ezDnwD2Rkh OJ1WFFsk2p3Sk30lGS+PHRkIH A6tSowALznn887SkIkm4ojBSI 3 yJAzNJjeVEO1F87ht6L4FGBzQ SCgUXY2cMW8cY3xaBhfenocD6 CgxOKfWoD6DKV8fZNbpV5wrQq n cetuxO9oInk+W73NHQ4ORHVQT H9GWmh6N1RpTikikGR+PC90YW IuVI95rTKjbEGhj0mkjVw3YvK w KWYcMHV8pWmnCNzgt3OkBTQqQ 13pyVRmr4E8ZGYdhWavvHRoSc JygEY4yP1nPDpfwltuh4ugdef n Fyyhh9ypmn89eQ22Z91rXVdoM CTmTUF5CEYpIHGkmAzhee7fkA 9wIi8+VZmrm3jao5gztIj0TlQ w VRRmbkVvoTlrCEI8b6CwLk69T 5VabHbmb6NcGpr2qy82hCDsy6 V7oUL3BMsuRVJqhK2qYQqhNyZ 6 IWTyRdKzuZ61tQYuVGfzNa7pl NwzbKqmNO4dMWYdxzevACQohZ 1yZQBjkFEhaXciOS6eDAHkpuy m g527JnWpAMZ8QJEuoQQlR3Bku Y1dXxJaZDUcHSAlE3NzcHGrKG kaQ003NFfaGbX1DQZpqcXtB0B s YTKauTtiEvM0c5W9Jh0Oe9Qhp xceJPD4REexHQSnXmH6AlWxRf X7L3JgZyh5LRGwtRlhJP8bY8Q h GFErypiphzvgcNZ7XITeKXEhw F82sWZcSSjpUg8ph2S1e206IM QfOWHllQ74Pe4kuMebPWPbvKR U tP6bmtfbe4rsxazyUsKkEYClD Is9RKy5DQTogGyjJnFzWWA5Rl Q6AGY8zGHgaD2bhZolchycyF9 w Oyc+A64lbU4pUVL5IIQ1vgjeH ERzauWmPC48XU24A6YgAsduiY FibGU+GOJcvnQxaLytWA4lGxC j d1mer4OkAUrlY4XkVYSwORdhM hk4RRCoWWJ4pUI1xA7bQUMxLQ pxa1P9tJQ5A8DzzqEipv8bd2p s GOQeYTzgL23raFKfd7M3CZByv MB7PUVyiXddPlZxqQ51Dry+PG TbmHevp2NnYwvct6lio3itnZm 9 ScJjMJAuksSnaSuhUPH6a9RgT q68M72cDFnzCKKyRLRpFDAtOO EueDdbvb7xjV1kKy7+PGNvbCB 3 lOT2uH7dRZWuCnA2BVaxG581L uNanGQiFimvx0gvh2ugqUe6Tc GlGIOvtwXxrYyxMMP4g8OpZa2 8 H80nKHjvOXLzBXSoKEQeOGHil Zpyaa8xgI3yKl7+TT1ai4qfht 56eR52vDF+ACMnIJC6jHmxIIn w VKIvfF0wFSdkNzP1XFTmWrYvm V23hOUzEZxfPu0ygZcobEtnFL 9fQKHdffbee638GhEvc1tpRIV w yIQnZMdzFVX2L70mo3O5VIZmG NHqRRS7jNC8mH9pwWeqpzspkM GudMwnqbRmeMpwELpvQTdiB52 6 IHRvcDsnPlBhdGllbnQgTmFtZ At6L6ZmWun1AFXbtPkxGX8hkR GuAAglSc9ujPqnqYmaVY3wAKE p wltxf502OuLlc8ylRICqzYGgU VvpTSA2M11hc0U6MOHbLQTsWW J1yKD9eB1bfVhlcupouAXpkLq g tmJduWbnNPqcNGvnB303VJHtw HojGoOqecKsWZXjaNY5OC57FL 82aPGdg1P9eDC2J2RfJPDdlln t engxeJJ3SXSeZOCenJ38Jm3ew PhpUd0kXYTmTCG9GTJwaORxE2 NtdN1cLxRfTTPxGFGfY7DrdSA t ZFywI256RFztGfQ7WIXwghMqU 7OzSAOteRvzBrV1x1I1Wn3XB2 R5YK64CP01mYOtm8G0tJM7Q5K h DEHjcrdfmxsboBN8RYHeZWFbg J98Vs6ppEfbZo0oMGHwVSH0PL EwpVRoY3QhvN8gPaAlCFWoQUG w R0CfxFGuMOrzW320DOpaHlK1G DRkgbPeY2LpFFGbkBlqClG7u8 P8Ic8OOCd4NE54RL92eVIfx7M 5 sFG1G7OnNQKsgjvqpgcrkWN1T LRiMMQmaO58Rg5jnKrdQu3vAL HcTAD3XGIbyQRoX8DvwK0yKxE j MNVqHAOlW2ScsITiHDjbR689X ZdkEbK2ACKfitDzM5IqEXEsnS djQdK4n4C0Rt2DNWCyJM34HKM 5 pPI1UK65ZO11P2NmOgafjBDxd +PHRhYmxlIHdpZHRoPScxMD SrRoIdcKhgPS6eJo0eXLMwEPN v iAgyyVRgNwMkd6nnTEEqOCqxF I3brZrxH2DgmMK9SUWoq1d5Yb 91S99cI1PdkPG+EMZdmJJ1eXJ 0 qO2lUxLoYrQ0FVutY968SkCcv IZeMxows9zwm8ugnEi5NnY7UM KazyGgvAzjYQZ0u7OdHl37K41 s IHdpZHRoPSIxNSUiIHZhbGlnb t2vcO0fJt8+NEIvxHT3cRC9sK 5jRbOfWfY9PBmjY794EiZwbDE v Kitsb2olj0yboDs6FrVsLZLvz bXvqWiyKAU1f4TuGh04J3GopI vef2IdHyh1ip64cDNrg9J0iBY 9 D7YrAVCircitdISkfYcbSF2xN ZTnccebKMQydV0oCYGdV4x4Qg JyUsQ7IZnnI2VakhQ1IFLfbUG g LEksKGA5X63pu6A4MSUoVBKxI TL5rVA7sH8tgOobnmzfsGRdxZ ithsOotPeqMPswFWaaX907GOP v sNehYMFwfP8wYNFvnPEqsRekV O0zZCOxgsjiQbGHQy1ZIuqjMO 3OVEbLIDb0Q9AlQox4QPEstHi s ZC3hqTQyAJslCs9psZmvrLvrL K2vEIMlmzyoHUWgtK0oPDYaoR EwyDbyEN9vLURnhvrpd326RyP x XZO0IAXgkNZfW6AacH5tWbToR ZBvDBNkL7OauEHgQIwlG781VY mkPmV6IQZsvcKqK4YgYYNxvNd u PdR1z7N7Gd9mJv9rOS4uFYT8A G51EQ33qEBnm4A5fJP9P6IfBB AcrqhpoiqdwSV5CFSbVERdqO8 7 wAUaQTalIv7uf9I5l620HZSvR POroZ04Ik5hiMjvTZUuvQNTwJ 2ltiaor5vrgouxLyUzAOGqKDj 0 SLj1ADNwtEmqAaDuREP0EmW6R NY8cTZwhX1uuQrmvfqdfH8uHf c+YxKuIWKjlcB4L3KhHcl6SUU z hCqoJT7gfUTyNTczLu3grQgcv NytWW0wEQUliexiJTNdhJ9nSL EujQTddRjfEK3bJZJswutri13 0 HaUuAJK5GNQgoCPbL6FpaQ8xY sQiCKQeARRpA3AstYUgTGdyS2 55MDjjIeW6MLDhlwEcI6FnODM s gFycKaF4c7E0Rb4NRRniPE47L L46eMRaf8A9fHN9W7BwRAKfcv qjrxbbeVZ4DETwHLVqpI54vJO k DZllYa5hf2M0r423ERJeDALyy L41Bs7acHmjPUQfmJDDnI1wtj wuj0tqtmboQcEeBFEkAAb0HAl 0 IOHtcYcoMtPzZAL2CoM7FLH0b AIjkG0ttOrzgukfgG9kOxq+T3 S4nAI1oIPqxXkuuFP+XF12ep8 8 F3NdQxhnEfs9XWVdJPX0tVF2y J0xEPDiGQczg8Y2cKV1J5Zueb Uhna2uc8xvXBAsZFgnO03isWN w p1Q4USRhaAP6UINyfCbxQkScy G93Oyc+ZIBhrLpfb7WaMwueo6 zbu0qhwOe5MyPqCPMwwmEawJg u KZE1r5UrJq60D56eIMpmFRLlM RYxIPYtMHPtmHmwvt9uhQ0bPa 8+PSLkdDE1kLE1pJ9fFqFqPrU 2 RPpmB194VmDadOCmBmqsz1ttb 7ylaPe5LnYtTMYlvcUgmEdmQO U1m8AeMo09L2AbiPkzm9EeXzi 0 ro11sTMyi8U5aBA8T6NvYHDfz dvreKTwlJdlEI3xRGWwrntjTS QmaT3wUEDtO9y2EmUhIvG3SOa u P6IdqhB7BVZrpHMyZTUbiSOEk J6jedbin0xzjrhwByMhEDBgNS g6ZKq0MOGcmXecAmShKNT0TyP 2 SAU4qOPlxI0nwDiissxeeN2zJ yc+HJy7w4gbrAHkFJ9eyUU7RX 98OJ72tZAew2G2wHB8M4AcQGB p meutspzmeZX1RRYvOCVqbL48B p1eqAfhAf3yYBKlFOW3HVIpwJ IgE3IcpT3kZtOvZPObEWYcC7Y l qSMrEEwmW553NCnoAuA1JHLfp sUyJ7FiYPXlnWfgMjM6x1C1Sh 5KUD31FJ57QD50tOXei4K5mLU 9 W0GuJMZnxgypdramzWZ6OTZdS JNclG92Hm8inLtdRw3eKJZiQB Y6TQTvuYWiM6NivI1zLbHdATY w KYWsP5VjgIUdCHunJ488YGqcO bY3XDRoxgPsF1ArDBSyqAveUs Y7p2U2Qc9DQt14MU05BO18bKO g b1N2qJP9P2YoXYHxilajvzdvr IB2HXJrIXOfbI13Rp5zhWezBq 9iODTxNZU5JBXfmBIhI8LcgD4 y ReEuIHZdKLViE6CtnKStPZnkX 054QQgeWmY7SSYbkrItF1JwCV LifEzxEgW8e6U2Xk4SDZloxie 8 H4FeVlhflVR+LN27BKKbAE40k DMnjWIyw6kevWg4RuSeUVQbEH Z5fBmaHZwvm3UlYJQiG75cvFU w c2U6 (more content not included)... [facility] Consent for Procedure/Surger yon 12-04-2022 Consent for Procedure/Surgery [id number]#1.00CD: [address] [facility] Consent for Procedure/Surgery [id number]#1.00CD: [address] [facility] Consent to Photographon Consent to Photograph [id number]#1.00CD: [address] [facility] Correspondence - Woundon Correspondence - Wound [id number]#1.00CD: [address] [facility] Correspondence - Wound [id number]#1.00CD: [address] [facility] Correspondence - Wound [id number]#1.00CD: [address] [facility] HIPAA Forms Officeon 023 HIPAA Forms Office [id number]#1.00CD: [address] [facility] Nursing Assessment - Woundon 12-04-2022 Nursing Assessment - Wound [id number]#1.00CD:[address] [facility] Physician Orderon 12-04-2022 Physician Order [id number]#1.00CD:[address] [facility] Procedure - Woundon 12-04-19 Procedure - Wound [id number]#1.00CD:[address] [facility] Progress Note - Woundon Progress Note - Wound [id number]#1.00CD:[address] [facility] Consent for Treatmenton Consent for Treatment [id number]#1.00CD:[address] [facility] Multi-Wound Charton 12-03-19 Multi-Wound Chart [id number]#1.00CD:[address] [facility] Correspondence - Woundon Correspondence - Wound [id number]#1.00CD:[address] [facility] Progress Noteson 07-20-2022 Distance [employer] Faculty Liaison Authentication Interface Message Text EMERGENCY TRIAGE, TREAT AND TRANSPORT (ET3) DOCUMENTATION OF TELEHEALTH VISIT Date / Time: 07/18/2022 / 0 Name: Yousif Aguilar : 1945 SSN: [id number] EMS Agency: [facility] [] Verbal consent obtained [] Implied [...] Completed by: Wilfrid Haley MD Normal [facility] Coding Summary.on 02-19-2019 Coding Summary. 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 Z86.718 Personal history [...] Date Saved: 02/19/2019 01:52 pm Normal [facility] CNOVon 09-03-2017 CNOV Office Visit (VASSFT) JEF AGUILAR Jimbo ([id number]) 1945 MDate Time Provider Pokxryuhib33/4/17 10:00 AM NEO ROCHA During your visit today, we recorded the following information about you: Pulse Blood pressure Weight 73/minute 142/72 142.9 kgNeo Rocha MD 09/03/2017 10:08 [facility] Department of Cardiovascular MedicineOUTPATIENT VISIT DATE September 03, 2017OUTPATIENT VISIT TYPEESTABLISHEDPRIMARY CARE PHYSICIAN:Abbie Gtz III DO257 PAULO SALGUERO [address] [place] [address] 14560Aztps: [phone]: [phone] PHYSICIANAbbie Gtz III, DO257 Paulo [facility] [id number] COMPLAINT:No chief complaint on file.HISTORY OF PRESENT [...] PE and DVT, 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 CT Chest +[id number] DUS LE +Rt femoral and popliteal [id number] DUS LE +Lt popliteal DVTPAST MEDICAL HISTORYDiagnosis [...] kg (315 lb) SpO2 94% BMI 43.93 kg/f8Llaaxsq appearance: alert and cooperative individual, in no [...] elevation.Neo Rocha, RODNEYeferring Provider: ABBIE GTZ III [[id number]]Allergies As of Date: 09/03/2017 Noted Allergy ReactionSHELLFISH [...] to improve.Follow-up and Disposition History RecordedEncounter Number: [id number] Status:Closed by NEO ROCHA MD on 09/03/17 Normal [facility] PROGRESSon 09-03-2017 PROGRESS HNO ID: [id number] thor: Neo Godinez: (none)Author Type: PhysicianType: Progress NotesFiled: 09/03/2017 10:08 AMNote Text:[facility] Department of Cardiovascular MedicineOUTPATIENT VISIT DATE September 03, 2017OUTPATIENT VISIT TYPEESTABLISHEDPRIMARY CARE PHYSICIAN:Abbie Gtz III, DO257 [facility] AVFEI C JOSE M [address] [place] [address]Xbbas: [phone]: [phone] PHYSICIANAbbie Gtz III, DO257 [place] AvFeig C Jose M [facility] [id number] COMPLAINT:No chief complaint on file.HISTORY OF PRESENT [...] PE and DVT, 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 CT Chest +[id number] DUS LE +Rt femoral and popliteal [id number] DUS LE +Lt popliteal DVTPAST MEDICAL HISTORYDiagnosis [...] kg (315 lb) SpO2 94% BMI 43.93 kg/y3Exbfkmi appearance: alert and cooperative individual, in no [...] skin moisturizer, leg elevation.Neo Rocha MD Normal [facility] Vital Signs Date Time Vital Sign Value Performing Clinician Facility 10-28-2023 17:16-0500 Heart rate 69 /min Theresa Villalpando [facility] 10-28-2023 17:16-0500 SaO2% (BldA) [Mass fraction] 92 % Theresa Pocos [facility] 10-28-2023 17:16-0500 Diastolic blood pressure 77 mm[Hg] Theresa Pocos [facility] 10-28-2023 17:16-0500 Mean blood pressure 100 mm[Hg] Theresa Pocos [facility] 10-28-2023 17:16-0500 Systolic blood pressure 145 mm[Hg] Theresa Pocos [facility] 10-28-2023 17:16-0500 Respiratory rate 16 /min Theresa Pocos [facility] 10-28-2023 16:09-0500 Heart rate 59 /min Theresa Pocos [facility] 10-28-2023 16:09-0500 SaO2% (BldA) [Mass fraction] 95 % Theresa Pocos [facility] 10-28-2023 16:09-0500 Diastolic blood pressure 82 mm[Hg] Theresa Pocos [facility] 10-28-2023 16:09-0500 Mean blood pressure 95 mm[Hg] Theresa Pocos [facility] 10-28-2023 16:09-0500 Systolic blood pressure 121 mm[Hg] Theresa Pocos [facility] 10-28-2023 16:08-0500 Respiratory rate 16 /min Theresa Pocos [facility] 10-28-2023 15:58-0500 Blood Pressure Location Theresa Pocos [facility] 10-28-2023 15:58-0500 Body temperature 96.98 [degF] Theresa Pocos [facility] 10-28-2023 15:58-0500 Diastolic blood pressure 68 mm[Hg] Theresa Pocos [facility] 10-28-2023 15:58-0500 Heart rate 64 /min Theresa Pocos [facility] 10-28-2023 15:58-0500 Mean blood pressure 88 mm[Hg] Theresa Pocos [facility] 10-28-2023 15:58-0500 Respiratory rate 18 /min Hteresa Pocos [facility] 10-28-2023 15:58-0500 SaO2% (BldA) [Mass fraction] 96 % Theresa Pocos [facility] 10-28-2023 15:58-0500 Systolic blood pressure 127 mm[Hg] Theresa Pocos [facility] 10-28-2023 15:46-0500 Blood Pressure Location Theresa Pocos [facility] 10-28-2023 15:46-0500 Mean blood pressure 86 mm[Hg] Theresa Pocos [facility] 10-28-2023 15:46-0500 Respiratory rate 14 /min Theresa Pocos [facility] 10-28-2023 15:41-0500 Blood Pressure Location Theresa Pocos [facility] 10-28-2023 15:41-0500 Mean blood pressure 95 mm[Hg] Theresa Pocos [facility] 10-28-2023 15:41-0500 Respiratory rate 18 /min Theresa Pocos [facility] 10-28-2023 15:31-0500 Body temperature 96.98 [degF] Theresa Pocos [facility] 10-28-2023 11:04-0500 Heart rate 80 /min Theresa Pocos [facility] 10-28-2023 11:02-0500 Respiratory rate 20 /min Theresa Pocos [facility] 10-28-2023 11:02-0500 Body temperature 97.7 [degF] Theresa Pocos [facility] 10-28-2023 11:02-0500 Mean blood pressure 104 mm[Hg] Theresa Pocos [facility] 10-22-2023 12:34-0500 Heart rate 80 /min Theresa Pocos [facility] 10-22-2023 12:34-0500 SaO2% (BldA) [Mass fraction] 94 % Theresa Pocos [facility] 10-22-2023 12:34-0500 Diastolic blood pressure 65 mm[Hg] Theresa Pocos [facility] 10-22-2023 12:34-0500 Mean blood pressure 86 mm[Hg] Theresa Pocos [facility] 10-22-2023 12:34-0500 Systolic blood pressure 130 mm[Hg] Theresa Pocos [facility] 10-22-2023 12:34-0500 Body temperature 97.7 [degF] Theresa Pocos [facility] 10-22-2023 12:34-0500 Respiratory rate 18 /min Theresa Pocos [facility] 10-17-2023 22:14-0500 Diastolic blood pressure 94 mm[Hg] Daniellen Dokken [facility] 10-17-2023 22:14-0500 Heart rate 82 /min Chantelylinn Dokken [facility] 10-17-2023 22:14-0500 Mean blood pressure 121 mm[Hg] Kaylinn Dokken [facility] 10-17-2023 22:14-0500 Respiratory rate 18 /min Kaylinn Dokken [facility] 10-17-2023 22:14-0500 SaO2% (BldA) [Mass fraction] 96 % Kaylinn Dokken [facility] 10-17-2023 22:14-0500 Systolic blood pressure 174 mm[Hg] Kaylinn Dokken [facility] 10-17-2023 21:29-0500 Body temperature 97.7 [degF] Kaylinn Dokken [facility] 10-17-2023 21:29-0500 Diastolic blood pressure 75 mm[Hg] Kaylinn Dokken [facility] 10-17-2023 21:29-0500 Heart rate 80 /min Kaylinn Dokken [facility] 10-17-2023 21:29-0500 Respiratory rate 18 /min Kaylinn Dokken [facility] 10-17-2023 21:29-0500 SaO2% (BldA) [Mass fraction] 98 % Kaylinn Dokken [facility] 10-17-2023 21:29-0500 Systolic blood pressure 162 mm[Hg] Kaylinn Dokken [facility] 10-17-2023 21:14-0500 Body temperature 97.7 [degF] Kaylinn Dokken [facility] 10-17-2023 21:14-0500 Diastolic blood pressure 78 mm[Hg] Kaylinn Dokken [facility] 10-17-2023 21:14-0500 Heart rate 83 /min Bryce Funk [facility] 10-17-2023 21:14-0500 Respiratory rate 18 /min Bryce Funk [facility] 10-17-2023 21:14-0500 SaO2% (BldA) [Mass fraction] 99 % Bryce Funk [facility] 10-17-2023 21:14-0500 Systolic blood pressure 158 mm[Hg] Bryce Funk [facility] 02-17-2023 11:00-0400 Body height 177.8 cm Perlita Hintonbrenda Other [employer] Other 02-17-2023 11:00-0400 Body mass index (BMI) [Ratio] 38.31 kg/m2 Perlita Hintonbrenda Other [employer] Other 02-17-2023 11:00-0400 Body temperature 97.8 [degF] Perlita Hintonbrenda Other [employer] Other 02-17-2023 11:00-0400 Body weight 121.11 kg Perlita Hintonbrenda Other [employer] Other 02-17-2023 11:00-0400 Diastolic blood pressure 787 mm[Hg] Perlita Reno Other [employer] Other 02-17-2023 11:00-0400 SaO2% (BldA) [Mass fraction] 97 % Perlita Rutbrenda Other [employer] Other 02-17-2023 11:00-0400 Systolic blood pressure 130 mm[Hg] Perlita Reno Other [facility] [employer] Other 07-18-2022 14:30-0400 Diastolic blood pressure 65 mm[Hg] [facility] 07-18-2022 14:30-0400 Heart rate 83 /min [employer] 07-18-2022 14:30-0400 Respiratory rate 18 /min [employer] 07-18-2022 14:30-0400 Systolic blood pressure 117 mm[Hg] Et3 [facility] 07-05-2022 13:39-0400 Diastolic blood pressure 67 mm[Hg] [facility] 07-05-2022 13:39-0400 Heart rate 71 /min [facility] 07-05-2022 13:39-0400 Mean blood pressure 88 mm[Hg] [facility] 07-05-2022 13:39-0400 Respiratory rate 18 /min [facility] 07-05-2022 13:39-0400 SaO2% (BldA) [Mass fraction] 99 % [facility] 07-05-2022 13:39-0400 Systolic blood pressure 130 mm[Hg] [facility] 07-05-2022 13:00-0400 Diastolic blood pressure 66 mm[Hg] [facility] 07-05-2022 13:00-0400 Heart rate 69 /min [facility] 07-05-2022 13:00-0400 Mean blood pressure 89 mm[Hg] [facility] 07-05-2022 13:00-0400 SaO2% (BldA) [Mass fraction] 97 % [facility] 07-05-2022 13:00-0400 Systolic blood pressure 135 mm[Hg] [facility] 07-05-2022 12:30-0400 Diastolic blood pressure 63 mm[Hg] [facility] 07-05-2022 12:30-0400 Heart rate 72 /min [facility] 07-05-2022 12:30-0400 Mean blood pressure 84 mm[Hg] [facility] 07-05-2022 12:30-0400 Respiratory rate 18 /min [facility] 07-05-2022 12:30-0400 SaO2% (BldA) [Mass fraction] 93 % [facility] 07-05-2022 12:30-0400 Systolic blood pressure 126 mm[Hg] [facility] 07-05-2022 12:05-0400 Heart rate 76 /min [facility] 07-05-2022 11:50-0400 Body temperature 98.24 [degF] [facility] 07-05-2022 11:50-0400 Heart rate 81 /min [facility] 03-21-2022 08:18-0400 Blood Pressure Location Mitalirachel Zhuz [facility] 03-21-2022 08:18-0400 Body temperature 97.34 [degF] Mitali Carine [facility] 03-21-2022 08:18-0400 Diastolic blood pressure 74 mm[Hg] Mitali Carine [facility] 03-21-2022 08:18-0400 Heart rate 78 /min Mitali Menendezmetz [facility] 03-21-2022 08:18-0400 SaO2% (BldA) [Mass fraction] 96 % Mitali Hawk [facility] 03-21-2022 08:18-0400 Systolic blood pressure 122 mm[Hg] Mitali Hawk [facility] Encounters Encounter Date Encounter Type Care Provider Facility Start: 12-22-2023 End: 12-22-2023 ambulatory ADDI POCOS Not Available Start: 11-28-2023 End: 11-28-2023 ambulatory ADDI POCOS Not Available Start: 11-10-2023 End: 11-10-2023 ambulatory ADDI POCOS Not Available Start: 10-28-2023 End: 10-28-2023 ambulatory Addi Pocos Facility:[facility] [facility] Start: 10-28-2023 End: 10-28-2023 Admission to same day surgery center Addi Pocos [facility] Start: 10-27-2023 End: 10-28-2023 ambulatory Abbie Gtz Facility:[facility] Start: 10-27-2023 End: 10-27-2023 Patient encounter procedure AbbieTre tGz III [facility] Start: 10-22-2023 End: 10-23-2023 ambulatory Addi Pocos Facility:[facility] Start: 10-22-2023 End: 10-22-2023 Patient encounter procedure Addi Pocos [facility] Start: 10-20-2023 End: 10-20-2023 ambulatory ADDI POCOS Not Available Start: 10-17-2023 End: 10-18-2023 Emergency department patient visit Bryce Funk Facility:[facility] Start: 10-17-2023 End: 10-17-2023 Emergency department patient visit Bryce Funk [facility] Start: 08-05-2023 End: 08-06-2023 ambulatory Facundo D Dolce Facility:[facility] Start: 07-29-2023 End: 07-30-2023 ambulatory Facundo D Dolce Facility:[facility] Start: 07-29-2023 End: 07-29-2023 Patient encounter procedure Facundo Hoffman [facility] Start: 07-22-2023 End: 07-23-2023 ambulatory Facundo D Dolce Facility:[facility] Start: 07-14-2023 End: 07-15-2023 ambulatory Facundo D Dolce Facility:[facility] Start: 07-14-2023 End: 07-15-2023 Patient encounter procedure Facundo Tima Hayjames [facility] Start: 07-08-2023 End: 07-09-2023 ambulatory Facundo D Dolce Facility:[facility] [facility] Start: 07-08-2023 End: 07-08-2023 Patient encounter procedure Facundo D Qian [facility] Start: 06-30-2023 End: 07-01-2023 ambulatory Facundo D Dolce Facility:[facility] Start: 06-30-2023 End: 06-30-2023 Patient encounter procedure Facundo Hoffman [facility] Start: 06-24-2023 End: 06-25-2023 ambulatory Facundo D Dolce Facility:[facility] [place] Start: 06-17-2023 End: 06-18-2023 ambulatory Facundo D Dolce Facility:[facility] Start: 06-17-2023 End: 06-17-2023 Patient encounter procedure Facundo D Qian [facility] Start: 06-10-2023 End: 06-11-2023 ambulatory Stephenarturo Hoffman Facility:[facility] [facility] Start: 06-10-2023 End: 06-10-2023 Patient encounter procedure Stephen R Bhartice [facility] Start: 06-02-2023 End: 06-03-2023 ambulatory Facundo Hoffman Facility:[facility] Start: 06-02-2023 End: 06-03-2023 Pre-admission assessment Facundo Hoffman [facility] Start: 05-27-2023 End: 05-28-2023 ambulatory Stephen R Bhartice Facility:[facility] Start: 05-27-2023 End: 05-27-2023 Patient encounter procedure Stephen R Bhartijames [facility] Start: 05-20-2023 End: 05-21-2023 ambulatory Facundo Hoffman Facility:[facility] [facility] Start: 05-20-2023 End: 05-20-2023 Patient encounter procedure Facundo Hoffman [facility] Start: 05-15-2023 End: 05-16-2023 ambulatory Facundo Hoffman Facility:[facility] [facility] Start: 05-15-2023 End: 05-15-2023 Patient encounter procedure Facundo Hoffman [facility] Start: 05-06-2023 End: 05-07-2023 ambulatory Facundo Hoffman Facility:[facility] [place] Start: 05-06-2023 End: 05-06-2023 Patient encounter procedure Facundo Hoffman [facility] Start: 04-23-[address] FACUNDO HOFFMAN Facility: Start: 04-22-2023 End: 04-23-2023 ambulatory Facundo Hoffman Facility:[facility] Start: 04-15-2023 End: 04-16-2023 ambulatory Facundo Hoffman Facility:[facility] Start: 04-08-2023 End: 04-09-2023 ambulatory Facundo Hoffman Facility:[facility] Start: 04-08-2023 End: 04-08-2023 Patient encounter procedure Facundo Hoffman [facility] Start: 04-02-2023 End: 04-03-2023 ambulatory Stephen R Bhartice Facility:[facility] Start: 04-02-2023 End: 04-02-2023 Patient encounter procedure Stephen Hoffman [facility] Start: 03-25-2023 End: 03-26-2023 ambulatory Facundo Tima Hoffman Facility:[facility] [place] [facility] Start: 03-17-2023 End: 03-19-2023 ambulatory Facundo Alfred Dolce Facility:[facility] Start: 03-11-2023 End: 03-12-2023 ambulatory Facundo Alfred Doljames Facility:[facility] Start: 03-11-2023 End: 03-11-2023 Patient encounter procedure Facundo Hayjames [facility] Start: 03-04-2023 End: 03-05-2023 ambulatory Facundo Hayjames Facility:[facility] [facility] Start: 03-04-2023 End: 03-04-2023 Patient encounter procedure Facundo Hayjames [facility] Start: 02-27-2023 End: 02-27-2023 ambulatory Perlita Reno Facility:[facility] Start: 02-27-2023 End: 02-27-2023 ambulatory DO Abbie R Gtz III Work Phone: [facility] Work Phone: Start: 02-27-2023 End: 02-27-2023 Patient encounter procedure DO Abbie Gtz III Work Phone: [facility] Work Phone: Start: 02-24-2023 End: 02-25-2023 ambulatory Facundo Hayjames Facility:[facility] Start: 02-24-2023 End: 02-24-2023 Patient encounter procedure Facundo Alfred Bhartijames [facility] Start: 02-18-2023 End: 02-19-2023 ambulatory Facundo Alfred Qian Facility:[facility] Start: 02-18-2023 End: 02-18-2023 Patient encounter procedure Facundo Hayjames [facility] Start: 02-17-2023 End: 02-17-2023 ambulatory Perlita Reno Other [facility] [employer] Other Start: 02-17-2023 [facility] visit new patient Perlita Ramesh nasir [facility] Start: 02-11-2023 End: 02-12-2023 ambulatory Facundo Hoffman Facility:[facility] Start: 02-04-2023 End: 02-05-2023 ambulatory Facundo Hoffman Facility:[facility] Start: 02-04-2023 End: 02-04-2023 Patient encounter procedure Facundo Hoffman [facility] Start: 01-28-2023 End: 01-29-2023 ambulatory Facundo Hoffman Facility:[facility] Start: 01-28-2023 End: 01-29-2023 ambulatory Facundo Hoffman Facility:[facility] Start: 01-28-2023 End: 01-28-2023 Patient encounter procedure Facundo Hoffman [facility] Start: 01-21-2023 End: 01-22-2023 ambulatory Facundo Hoffman Facility:[facility] [place] [facility] Start: 01-21-2023 End: 01-21-2023 Patient encounter procedure Facundo Hoffman [facility] Start: 01-15-2023 End: 01-22-2023 Pre-admission assessment Facundo Hoffman [facility] Start: 01-14-2023 End: 01-15-2023 ambulatory Facundo Hoffman Facility:[facility] [place] [facility] Start: 01-14-2023 End: 01-14-2023 Patient encounter procedure Facundo Hoffman [facility] Start: 01-07-2023 End: 01-08-2023 ambulatory Facundo Hoffman Facility:[facility] [place] Start: 01-07-2023 End: 01-07-2023 Patient encounter procedure Facundo Hoffman [facility] Start: 12-31-2022 End: 01-01-2023 ambulatory Facundo Hoffman Facility:[facility] [place] [facility] Start: 12-31-2022 End: 12-31-2022 Patient encounter procedure Facundo Hoffman [facility] Start: 12-27-2022 End: 12-28-2022 ambulatory Facundo Hoffman Facility:[facility] [place] Start: 12-27-2022 End: 12-27-2022 Patient encounter procedure Facundo Hoffman [facility] Start: 12-24-2022 End: 12-25-2022 ambulatory Facundo Hoffman Facility:[facility] [place] Start: 12-24-2022 End: 12-24-2022 Patient encounter procedure Facundo Hoffman [facility] Start: 12-17-2022 End: 12-18-2022 ambulatory Facundo Hoffman Facility:[facility] [place] Start: 12-10-2022 End: 12-11-2022 ambulatory Facundo Hoffman Facility:[facility] [place] Start: 12-10-2022 End: 12-10-2022 Patient encounter procedure Facundo Hoffman [facility] Start: 12-03-2022 End: 12-04-2022 ambulatory Facundo Hoffman Facility:[facility] [place] Start: 12-03-2022 End: 12-03-2022 Patient encounter procedure Facundo Hoffman [facility] Start: 10-23-2022 End: 10-31-2022 ambulatory UNKNOWN PROVIDER Facility:[place] Start: 07-20-2022 End: 07-22-2022 ambulatory UNKNOWN PROVIDER Facility:[facility] Start: 07-18-2022 End: 07-18-2022 ambulatory [facility] T[facility], Treat and Transport Start: 07-18-2022 End: 07-18-2022 Emergency department patient visit [facility] Emergency Triage, Treat and Transport Comment on above: Arrived Start: 07-05-2022 End: 07-05-2022 Emergency department patient visit Itz Rachel Leonidas [facility] Start: 03-21-2022 End: 03-21-2022 Patient encounter procedure Mitali Hawk [facility] Start: 02-23-2019 Patient encounter procedure Zakia Buck Facility:[facility] [place] Start: 01-01-2019 End: 01-02-2019 Patient encounter procedure Stephen CrossNelly Qian Facility:[facility] [place] Start: 09-03-2017 End: 09-04-2017 Ambulatory NEO ROCHA [facility] Procedures Date Procedure Procedure Detail Performing Clinician [...] [facility] Start: [address] [facility] Start[facility] Hepatitis C screening Hepatitis C An tibody [facility] Start: 1965 Tetanus + diphtheria + acellular pertussis vaccine (product) Tdap Booster [facility] Immunizations Immunization Date Immunization Notes Care Provider Hanny macias 08-31-2021 influenza virus vaccine, unspecified formulation Mitali Hawk [facility] 02-02-2021 zoster vaccine recombinant [facility] 09-05-2020 influenza, high dose seasonal, preservative-free [facility] 09-05-2020 influenza virus vaccine, unspecified formulation [facility] 10-15-2019 influenza, high dose seasonal, preservative-free [facility] 09-10-2018 influenza, injectabl e, quadrivalent, preservative free [facility] 09-29-2017 influenza, injectabl e, quadrivalent, preservative free [facility] 09-25-2016 influenza, injectabl e, quadrivalent, preservative free [facility] 03-28-2016 pneumococcal conjuga te vaccine, 13 valent [facility] 09-21-2015 influenza, seasonal, injectable Et3 [facility] 12-27-2013 pneumococcal conjuga te vaccine, 13 valent Et3 [facility] Payers Date Payer Category Payer Self-pay 2022 Medicaid [id number] 2021 Unknown [id number] 2021 Unknown 2021 Medicare HUMANA MEDICARE HUMANA CHOICE PPO/HMO [id number] 2021-Present [employer] CLAIMS OFFICE [address] [address] [place] [address] PPO [id number] 2018 Unknown [id number] 1947 Unknown [id number] ..840.1.002459.3.579.2.727 1947 Unknown [id number] 2.16.840.1.270364.3.579.2.727 1947 Unknown [id number] 2.16.840.1.957211.3.579.2.732 1947 Unknown [id number] 2.16.840.1.092684.3.579.2.732 1947 Unknown [id number] 2.16.840.1.684436.3.579.2.593 1947 Unknown [id number] 2.16.840.1.405800.3.579.2.727 1947 Unknown [id number] 2.16.840.1.769276.3.579.272 1947 Unknown [id number] 2.16.840.1.617677.3.579.272 1947 Unknown [id number] 2.16.840.1.452128.3.579.272 1947 Unknown [id number] 2.16.840.1.076834.3.579.272 1947 Unknown [id number] 2.16.840.1.021443.3.579.272 1947 Unknown [id number] 2.16.840.1.151342.3.579.2.72 1947 Unknown [id number] 2.16.840.1.750006.3.579.272 1947 Unknown [id number] 2.16.840.1.634606.3.579.2.72 1947 Unknown [id number] 2.16.840.1.221098.3.579.272 1947 Unknown [id number] 2.16.840.1.022710.3.579.2.72 1947 Unknown [id number] 2.16.840.1.852369.3.579.2. 1947 Unknown [id number] 2.16.840.1.314924.3.579.2 1947 Unknown [id number] 2.16.840.1.890173.3.579.2. 1947 Unknown [id number] 2.16.840.1.724670.3.579.2 1947 Unknown [id number] 2.16.840.1.698355.3.579.2 1947 Unknown [id number] 2.16.840.1.692900.3.579. 1947 Unknown [id number] 2.16.840.1.865954.3.579.2 1947 Unknown [id number] 2.16.840.1.680774.3.579.2 1947 Unknown [id number] 2.16.840.1.431843.3.579.2 1947 Unknown [id number] 2.16.840.1.367043.3.579.2 1947 Unknown [id number] 2.16.840.1.584152.3.579.2 1947 Unknown [id number] 2.16.840.1.659392.3.579.2 1947 Unknown [id number] 2.16.840.1.500260.3.579.2 1947 Unknown [id number] 2.16.840.1.708195.3.579.2 1947 Unknown [id number] 2.16.840.1.017489.3.579.2 1947 Unknown [id number] 2.16.840.1.250813.3.579.2 1947 Unknown [id number] 2.16.840.1.902048.3.579.2 1947 Unknown [id number] 2.16.840.1.352952.3.579.2 1947 Unknown [id number] 2.16.840.1.681787.3.579.2 1947 Unknown [id number] 2.16.840.1.831268.3.579.2 1947 Unknown [id number] 2.16.840.1.114219.3.579.2 1947 Unknown [id number] 2.16.840.1.256719.3.579.2 1947 Unknown [id number] 2.16840.1.053640.3.579.2 1947 Unknown [id number] 2.16.840.1.048076.3.579.2 1947 Unknown [id number] 2.16.840.1.561932.3.579.2 1947 Unknown [id number] 2.16.840.1.563159.3.579.2 1947 Unknown [id number] 2.16840.1.075410.3.579.2 1947 Unknown [id number] 2.16.840.1.783232.3.579.2 1947 Unknown [id number] 2.16.840.1.884561.3.579.2 1947 Unknown [id number] 2.16.840.1.021420.3.579.2 1947 Unknown [id number] 2.16.840.1.019003.3.579.2.9 1947 Unknown [id number] 2.16.840.1.472334.3.579.2.1259 1947 Unknown [id number] 2.16.840.1.160789.3.579.2.1259 1947 Unknown [id number] 2.16.840.1.239971.3.579.2.1259 1947 Unknown [id number] 2.16.840.1.273163.3.579.2.1259 1947 Unknown [id number] 2.16.840.1.763771.3.579.2.1259 1947 Unknown [id number] 2.16.840.1.130458.3.579.2.1259 Unknown Stacey NOLEN/SARAH [id number] Unknown [id number] 2.16.840.1.844884.3.579.2.531 Social History Date Type Detail Facility Start: 03-21-2022 Tobacco smoking status Ex-smoker (finding) [facility] Tobacco smoking status Never [facility] Sex Assigned At Male [facility] Tobacco smoking status MIIS Tobacco smoking consumption unknown [facility] Start: 1945 Sex Assigned At Not on file [facility] Start: 1945 Sex Assigned At Male [facility] Medical Equipment Procedure Code Equipment Code Equipment Origin al Text Equipment Identifier Dates ELBOW FRACTURE O RIF Theresa Villalpando DO 10/28/23 Unknown Elbow R FDA Start: 10-28-2023 ELBOW FRACTURE O RIF Camila DOTheresa 10/28/23 Unknown Elbow R FDA Start: 10-28-2023 Functional Status Date Assessment Result Facility 10-22-2023 Functional Status No [facility] 10-17-2023 Functional Status N/A [facility] 07-05-2022 Functional Status N/A [facility] Clinical Notes 03-21-2022 to 10-28-2023 Note Date & Type Note Facility 10-28-2023 Hospital Discharg e instructions Patient Education 10/28/2023 16:52:15 Post Op Patient Instructions - FT (Custom) (CUSTOM) 10/27/2023 07:36:07 [facility] Care Instructions (Custom) [place], [place] [facility] OUTPATIENT SURGERY Home Care [...] not drive. Theresa Villalpando, DO [facility] [address] [place] [address] [phone] Reviewed: 08 Follow Up Care 10/20/2023 14:32:22 With:Theresa Villalpando Address: [address] [place] [phone]- Business (1) When:11/10/2023 14:30:00 Comments:Appointment has already been scheduled [facility] 10-27-2023 Note [id number] [facility] 10-18-2023 Hospital Discharg e instructions Patient [...] Follow these instructions at home: Medicines Take vequ-cst-gzecbkz and prescription medicines only as told by your health care provider. Ask your health care provider if the medicine prescribed to you: ?Requires you to avoid driving or using heavy machinery. ?Can cause constipation. You may need to take actions to prevent or treat constipation, such as: ?Drink enough fluid to keep your urine pale yellow. ?Take ljxx-lqu-szifppf or prescription medicines. ?Eat foods that are [...] provider. Document Revised: 02/14/2022 Document Reviewed: 02/14/2022 [employer] Patient Education 2022 [employer] Follow Up Care 10/17/2023 21:14:35 With:Theresa Villalpando Address: [address] [place], [place] [id number] Business (1) When:10/20/2023 Comments:You can use the pain medication every 6 hours as needed for pain. Please follow-up with your primary care doctor addition to orthopedics for further evaluation management. Please return to the ED for any new or worsening symptoms. With:Abbie Gtz Address: [address] [place] [address] [place] [address] Business (1) When:Within 3 Day(s) [facility] 10-17-2023 Evaluation + Plan note Extrac krystal from: Title:ED Note Author:Bryce Funk DO Date :10/17/23 Olecranon fracture (S52.023A : Displaced fracture of olecranon process without intraarticular extension of unspecified ulna, initial encounter for closed fracture) Orders: acetaminophen-hydrocodone, 1 tab(s), Oral, q6hr for pain for 3 day(s), 10 tab(s), Refill(s) 0, [facility] 1985, 177.8, cm, 10/17/23 21:21:00 EST, Height/Length Dosing, 133.1, kg, 10/17/23 21:21:00 EST, Weight Dosing Sling Apply XR Elbow 3+ Views Right [facility]03-20-2023 Evaluation note* Encounter Date Diagnosis Assessment Notes [...] with this plan, and denies any questions. [facility] Timely Other 08-20-2022 History of Present illness Narrative* Wilfrid Haley MD - 07/20/2022 8:23 AM EDT Images from the original note were not included. EMERGENCY TRIAGE, TREAT AND TRANSPORT (ET3) DOCUMENTATION OF TELEHEALTH VISIT Date / Time: 07/18/2022 / 1430 Name: Yousif Aguilar : 1945 SSN: [id number] EMS Agency: [facility] [] Verbal consent obtained [] Implied [...] by: Wilfrid Haley MD documented in this [id number] Hospital Discharge instructions Patient Education 07/05/2022 13:44:46 [...] activities that cause pain. General instructions Take gzix-pou-witkgku and prescription medicines only as told by [...] 05/07/2011 Document Revised: 04/03/2020 Document Reviewed: 04/03/2020 [employer] Patient Education 2019 [employer] Follow Up Care 07/05/2022 11:49:47 With:Abbie Gtz Address: [address] [place] [address] [place] [address] Business (1) When:07/08/2022 13:33:40 [facility]20[facility] Evaluation + Plan noteExtracted from: Title:ED Note [...] XR Hip 2-3 Views Right + Pelvis [facility]04-21-2022 Hospital Discharge instructions Patient Education 03/21/2022 08:32:55 [...] 08/13/2005 Document Revised: 03/04/2019 Document Reviewed: 03/04/2019 [employer] Patient Education [employer] Follow Up Care 03/05/2022 13:23:06 With:Mitali Hawk CNP Address: When:1 year only if needed [facility] Evaluation + Plan note No data available for this section [facility] Evaluation + Plan note Future Appointments Appointment Date:12/10/2022 10:00:00 AM Scheduled Provider: [facility] Appoint[facility] Type:WC Assessment (FT) Appointment Date:12/17/2022 01:45:00 PM Scheduled Provider:Facundo Hoffman DPM [facility] Type:WC [facility] Future Appointments Appointment Date:12/17/2022 01:45:00 PM Scheduled Provider:Facundo [facility] DPM [facility] App[facility] Type:WC [facility] (FT[facility] Future Appointments Appointment Date:12/31/2022 10:30:00 AM Scheduled Provider: [facility] Appointment Type:WC Assessment (FT) Appointment Date:01/07/2023 01:45:00 PM Scheduled Provider:Facundo Hoffman DPM [facility] Appointment Type:WC [facility] Future Appointments Appointment Date:12/31/2022 01:30:00 PM Scheduled Provider: [facility] Appointment Type:WC Assessment (FT) Appointment Date:01/07/2023 01:45:00 PM Scheduled Provider:Facundo Hoffman DPM [facility] Appointment Type:WC [facility] Future Appointments Appointment Date:01/07/2023 01:45:00 PM Scheduled Provider:Facundo Hoffman DPM [facility] Appointment Type:WC [facility] Future Appointments Appointment Date:01/14/2023 02:30:00 PM Scheduled Provider:Facundo Hoffman DPM [facility] Appointment Type:WC [facility] (FT) [facility] Future Appointments Appointment Date:01/21/2023 03:30:00 PM Scheduled Provider:Facundo Hoffman DPM [facility] Appointment Type:WC [facility] (FT[facility] Future Appointments Appointment Date:01/28/2023 03:30:00 PM Scheduled Provider:Facundo Hoffman DPM [facility] Appointment Type:WC Follow Up Visit (FT) Appointment Date:02/11/2023 01:30:00 PM Scheduled Provider:Facundo Hoffman DPM [facility] Appointment Type:WC [facility] Future Appointments Appointment Date:02/04/2023 01:45:00 PM Scheduled Provider:Facundo Hoffman DPM [facility] Appointment Type:WC Follow Up Visit (FT) Appointment Date:02/11/2023 01:30:00 PM Scheduled Provider:Facundo Hoffman DPM [facility] Appointment Type:WC [facility] Future Appointments Appointment Date:02/11/2023 01:30:00 PM Scheduled Provider:Facundo Hoffman DPM [facility] Appointment Type:WC [facility] (FT[facility] Future Appointments Appointment Date:02/25/2023 11:30:00 AM Scheduled Provider: [facility] Appointment Type:WC Assessment (FT) Appointment Date:03/04/2023 01:15:00 PM Scheduled Provider:Facundo Hoffman DPM [facility] Appointment Type:WC [facility] Future Appointments Appointment Date:03/04/2023 01:15:00 PM Scheduled Provider:Facundo Hoffman DPM [facility] Appointment Type:WC [facility] (FT[facility] Future Appointments Appointment Date:03/11/2023 11:00:00 AM Scheduled Provider: [facility] Appointment Type:WC Assessment (FT) Appointment Date:03/17/2023 01:30:00 PM Scheduled Provider: [facility] Appointment Type:WC Assessment (FT) Appointment Date:03/25/2023 02:00:00 PM Scheduled Provider:Facundo Hoffman DPM [facility] Appointment Type:WC [facility] (FT[facility] Future Appointments Appointment Date:03/17/2023 01:30:00 PM Scheduled Provider: [facility] Appointment Type:WC Assessment (FT) Appointment Date:03/25/2023 02:00:00 PM Scheduled Provider:Facundo Hoffman DPM [facility] Appointment Type:WC [facility] (FT[facility] Future Appointments Appointment Date:04/08/2023 01:45:00 PM Scheduled Provider:Facundo Hoffman DPM [facility] Appointment Type:WC [facility] (FT) [facility] Future Appointments Appointment Date:04/15/2023 02:15:00 PM Scheduled Provider:Facundo Hoffman DPM [facility] Appointment Type:WC [facility] Up Visit (FT) [facility] Future Appointments Appointment Date:05/15/2023 10:00:00 AM Scheduled Provider: [facility] Appointment Type:WC Assessment (FT) Appointment Date:05/20/2023 01:45:00 PM Scheduled Provider:Facundo Hoffman DPM [facility] Appointment Type:WC [facility] (FT[facility] Future Appointments Appointment Date:05/20/2023 03:15:00 PM Scheduled Provider:Facundo Hoffman DPM [facility] Appointment Type:WC [facility] Visit (FT) [facility] Future Appointments Appointment Date:06/02/2023 08:30:00 AM Scheduled Provider: [facility] Appointment Type:WC Assessment (FT) Appointment Date:06/10/2023 03:00:00 PM Scheduled Provider:Facundo Hoffman DPM [facility] Appointment Type:WC [facility] Up Visit (FT) [facility] Future Appointments Appointment Date:06/10/2023 03:00:00 PM Scheduled Provider:Facundo Hoffman DPM [facility] Appointment Type:WC [facility] (FT[facility] Future Appointments Appointment Date:06/24/2023 03:00:00 PM Scheduled Provider:Facundo Hoffman DPM [facility] Appointment Type:WC [facility] (FT) [facility] Future Appointments Appointment Date:07/08/2023 01:45:00 PM Scheduled Provider:Facundo Hoffman DPM [facility] Appointment Type:WC [facility] (FT[facility] Future Appointments Appointment Date:07/14/2023 09:00:00 AM Scheduled Provider: [facility] Appointment Type:WC Assessment (FT) Appointment Date:07/22/2023 02:00:00 PM Scheduled Provider:Facundo Hoffman DPM [facility] Appointment Type:WC [facility] (FT[facility] Future Appointments Appointment Date:07/22/2023 02:00:00 PM Scheduled Provider:Facundo Hoffman DPM [facility] Appointment Type:WC [facility] (FT[facility] Future Appointments Appointment Date:08/05/2023 02:00:00 PM Scheduled Provider:Facundo Hoffman DPM [facility] Appointment Type:WC [facility] (FT[facility] Future Appointments Appointment Date:10/28/2023 02:00:00 PM Scheduled Provider: Location:[facility] App[facility]ment Type:Surgery FT [facility]* Diagnosis Fall in home, initial encounter- Primary documented in this [facility] Work Phone: [facility] Narrative - Reported* Type Description Date Medical History high cholesterol Medical History Blood clots Surgical History hand and leg surgery 1974 Surgical History jaw wiring Surgical History elbow surgery Surgical History appendectomy Surgical History wrist surgery right hand Hospitalization History see above [employer] Other Hospital Discharge instructions No data available for this section [facility] No data available for this section [facility] Summary Purpose Family History No Family History [...] section and content) DATE CREATED AUTHOR 05/27/2018 [facility] DATE CREATED AUTHOR AUTHOR'S ORGANIZ ATION 02/25/2019 [facility] DATE CREATED AUTHOR AUTHOR'S ORGANIZ ATION 11/01/2022 [facility] DATE CREATED AUTHOR AUTHOR'S ORGANIZ ATION 03/15/2023 [facility] DATE CREATED AUTHOR AUTHOR'S ORGANIZ ATION 04/09/2023 [facility] DATE CREATED AUTHOR AUTHOR'S ORGANIZ ATION 11/05/[address] [facility] DATE CREATED AUTHOR AUTHOR'S ORGANIZ ATION 12/22/2023 [facility] EPIC Care Team (unrecognized [...] BE BASED ON THE PRIMARY CLINICAL RECORDS. [facility]. provides no warranty or guarantee of the accuracy or completeness of information in this document.
== END 2024-03-02 14:08 | disposition home or self-care (01) ==
LOC: VC 14:07
PROVIDERS: PCP Radiology Diagnostic Radiology; Visit Provider Radiology Diagnostic Radiology
DX: I80.01 Phlebitis and thrombophlebitis of superficial vessels of right lower extremity (principal)
CPT/HCPCS: 93971; G0463

== ENCOUNTER 2024-03-31 08:38 | Outpatient (OUT) | payer OTHER, MEDICAID, SELFPAY ==
--- NOTE | 2024-03-31 08:40 | VEIN_ITS ---
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 HISTORY: I83.813 Pain due to varicose veins of bilateral legs Pre-operative Diagnosis: CEAP class C6 venous insufficiency with pain, tenderness, edema and incompetent left varicose and saphenous vein(s), chronic venous insufficiency left leg secondary to venous incompetence Post-operative Diagnosis: CEAP class C6 venous insufficiency with pain, tenderness, edema and incompetent left varicose and saphenous vein(s), chronic venous insufficiency left leg secondary to venous incompetence Procedure Performed: 1. Ultrasound-guided microfoam chemical ablation with Varithenaregistered 2. Intraoperative ultrasound guidance Anesthesia: None Indications for Procedure: 78-year-old male who presents with a long history of lower extremity pain and swelling varicose veins culminating in nonhealing venous stasis ulcerations. The patient failed conservative medical therapy including medical compression stockings, exercise and analgesics. Prior procedures include . Multiple incompetent varicosities of the left leg. Duplex scan showed reflux and enlarged diameters up to 5 mm. The patient underwent informed consent including management options where the complications of infection, bleeding, pain, and skin injury were discussed. Particular attention was spent discussing thrombus extension and deep vein thrombosis as well as the possibility of pulmonary embolus and treatment with oral or injectable blood thinners. Procedure: The patient walked to the procedure room. All applicable staff donned appropriate apparel. A procedure timeout was performed to confirm correct patient, correct extremity, correct procedure, and correct room set-up including presence of all applicable supplies, devices, and drugs. A duplex ultrasound, performed by myself confirmed the location and incompetence of branch saphenous varicosities and their course was marked on the skin together with the dilated tributaries. The extent of treatment of the vein and the associated varicosities was determined through ultrasound mapping. The skin was prepped and then punctured with a butterfly needle and advanced under ultrasound guidance. The Varithenaregistered canister was activated and the canister was primed and purged as required in the instructions for use. Varithenaregistered was drawn into a sterile syringe. The following injections were made: 3 cc injected into a 3 mm left distal anterior lower leg 2 cc injected into a 4 mm varicose vein left distal anterior lower leg 5 cc injected into a 4 mm varicose vein left medial mid lower leg 5 cc injected into a 5 mm varicose vein left medial proximal lower leg Varithenaregistered was slowly administered at 0.5-1.0 cc/second with close observation by ultrasound of its course in the vessels. Total volume utilized was: 15cc. Following administration of Varithenaregistered the leg was elevated and the patient was asked to repeatedly dorsiflex the ankle to limit flow of Varithenaregistered into perforating veins. Once appropriate spasm had been confirmed in the treated veins, the vascular catheter was removed from the leg and light pressure was applied over the puncture site for hemostasis. The common femoral and deep superficial veins were then evaluated for flow and compressibility prior to dressing placement. The lower extremity was kept elevated at 45 degrees above the horizontal and cording material was applied over the saphenous segments and tributaries to allow for eccentric compression over the target vessels including the targeted saphenous vein(s). A multilayer dressing was applied consisting of foam pads, coban and thigh-high 20-30 mm Hg compression elastic support hose were placed on the patient. The leg was lowered only after compression had been applied and the patient was immediately ambulatory. The patient ambulated 10 minutes under supervision and was without apparent concerns at time of release. Post-care instructions include advising patient to keep post-treatment bandages in place and dry for 48 hours, avoid extended periods of inactivity, avoid heavy exercise for one week, wear compression stockings on the treated leg continuously for two weeks, to walk daily for 10 minutes over the next month. The patient was instructed to take an anti-inflammatory medicine as needed and to follow up for color duplex scan of the Saphenous veins, the treated branch saphenous varicosities, the adjacent deep veins, and additional treatment within 7 days. PERSONNEL: Deandre Lechuga RN Electronically authenticated by: THERESA DE DIOS Date: 03/31/2024 10:02
== END 2024-03-31 08:39 | disposition home or self-care (01) ==
LOC: VC 08:38
PROVIDERS: PCP Radiology Diagnostic Radiology; Visit Provider Radiology Diagnostic Radiology
DX: I83.813 Varicose veins of bilateral lower extremities with pain (principal)
CPT/HCPCS: 36466

== ENCOUNTER 2024-04-05 09:09 | Outpatient (OUT) | payer OTHER, MEDICAID, SELFPAY ==
--- NOTE | 2024-04-05 09:11 | VEIN_ITS ---
Patient Name: YOUSIF NAJERA MR#: [id number] : 1945 Exam Date: 04/05/2024 Ordering Doctor: DR CHRIS KIM M.D. RADIOLOGY REPORT PROCEDURE: FACILITY EST [facility] - OFFICE VISIT FOLLOW UP COMPARISON: [facility] EST [facility], 03/02/2024. [facility] EST [facility], 02/17/2024. PROGRESS NOTES: The patient reports no significant problems of the left leg following micro foam chemical ablation. The patient has worn his compression stockings. The patient did not require oral analgesics. The patient has exercised best visibility. Physical exam demonstrates some mild increased redness of the left lower leg with no significant erythema, this is nonspecific. Significant interval improvement in left leg skin thickening and swelling compared to his initial presenting exam. Thrombosed varicose veins can be palpated. Residual varicose veins are observed. Review of the ultrasound performed the same day demonstrates occlusive thrombus extending throughout the treated left leg incompetent varicose veins. No deep vein thrombus. The patient expressed a desire to proceed with treatment of incompetent right leg varicose veins. VEIN/[facility] EST LMTD IMPRESSION: 1. Successful ablation of treated left leg incompetent varicose veins 2. Persistent incompetent right leg varicose veins. PLAN: Micro foam chemical ablation of incompetent right leg varicose veins Nurse notes, history and physical were reviewed and confirmed, see attached forms. The nurse was present throughout the physical exam and consultation Dictated by: Chris Kim MD on 04/05/2024 at 09:56 Approved by: Chris Kim MD on 04/05/2024 at 09:58
--- NOTE | 2024-04-05 09:11 | VEIN_ITS ---
Patient Name: YOUSIF NAJERA MR#: [id number] : 1945 Exam Date: 04/05/2024 Ordering Doctor: DR CHRIS KIM M.D. RADIOLOGY REPORT PROCEDURE: VC EXT VENOUS LT LIMITED COMPARISON: VC EXT VENOUS LT LIMITED, 02/03/2024. VC EXT VENOUS LT LIMITED, 07/28/2023. INDICATIONS: Phlebitis of superficial veins of left lower extremity I80.02 TECHNIQUE: Lower extremity rodriges scale and Duplex Doppler evaluation of the deep venous system from the inguinal ligament through the calf veins. FINDINGS: REGION: Left lower extremity. THROMBI: Negative for DVT. Thrombus in multiple varicose veins lower left leg. COMPRESSIBILITY: Non-compressible segments corresponding to thrombus FLOW: Areas of no flow corresponding to thrombus OTHER: Patent varicose vein distal medial thigh measures 4.3 mm. CONCLUSION: Post ablation occlusion of multiple treated left leg varicose veins with a patent varicose vein measuring 4.3 mm. No deep vein thrombus. Dictated by: Chris Kim MD on 04/05/2024 at 09:46 Approved by: Chris Kim MD on 04/05/2024 at 09:47
--- OUTSIDE RECORDS SUMMARY | 2024-04-05 09:36 | XMS_ITS | CCD ---
Author Organization [facility] Care Team Providers Care Peanut Farmer Name Role Phone NEO ROCHA Unavailable Unavailable GTZ III, ABBIE R Unavailable Unavailabl e Dolce, Stephen R. Admitting Unavailable Dolce, Stephen R. Attending Unavailable Gtz, Abbie Primary Care Unavailable Zakia Buck Admitting Unavailable HinckleyZakia Attending Unavailable Gtz, Abbie Primary Care Unavailable Gtz III, Abbie R Primary Care Physician Unavailable Primary Care Provider Unavailabl e PROVIDER, UNKNOWN Admitting Unavailable PROVIDER, UNKNOWN Attending Unavailable PROVIDER, UNKNOWN Admitting Unavailable PROVIDER, UNKNOWN Attending Unavailable Perlita Reno Unavailable Gtz III, DO Abbie R Primary Care Provider Shadia TERMINAL OPERATIONS MANAGER-C Perlita Cross Attending Provider Perlita Reno Attending [...] Allergy 6 Unknown (qualifier value) [facility] Repository (20 sources) Penicillins; Translations: [PENICILLINS] Propensity to adverse reactions to drug (disorder) 6 Unknown (qualifier value) [facility] Repository (1 source) SHELLFISH CONTAINING PRODUCTS; Translations: [SHELLFISH CONTAINING PRODUCTS] Propensity to adverse reactions to drug (disorder) 7 AOF [facility] Repository (20 sources) Shellfish; Translations: [shellfish] Propensity to adverse reactions (disorder) Pharyngeal swelling (finding), Difficulty breathing (finding) [facility] Repository (5 sources) Contrast media; Translations: [Contrast Dye] Propensity to adverse reactions Dizziness (finding) [facility] (1 source) Penicillin Drug Allergy rash [employer] Other (1 source) Shellfish Drug allergy Unknown [employer] Other (1 source) Penicillins; Translations: [penicillins] Drug allergy Unknown (qualifier value) [facility] Comment on above: as a child Medications Current Medications Medication Drug Class(es) Dates Sig (Normalized) Sig (Original) acetaminophen 325 mg / HYDROcodone bitartrate 5 mg oral tablet (2 sources) Opioid Agonist Start: 10-28-2023 Billings 325 mg-5 mg oral tablet See Instructions, for pain, 40 tab(s), Refill(s) 0, 1 - 2 po q4-6h prn pain Dx: S52.031D Duration: 7 days, [facility]/pharmacy #[id number], 177, cm, 10/22/23 12:25:00 EST, Height/Length Dosing, 132.5, kg, 10/22/23 12:25:00 EST, Weight Dosing Start Date: 10/28/23 Status: Ordered Start: 10-17-2023 End: 10-20-2023 take 1 tablet by mouth every six hours for pain Billings 325 mg-5 mg oral tablet 1 tab(s), Oral, q6hr for pain for 3 day(s), 10 tab(s), Refill(s) 0, [facility], 177.8, cm, 10/17/23 21:21:00 [...] constipation, # 40 cap(s), Refills(s) 0, Pharmacy: [facility]/pharmacy #6173, 177, cm, 10/22/23 12:25:00 EST, [...] Facility IntraOperative Documentson 1 01-04-2023 IntraOperative Documents [id number]#1.00TIFF [facility] Progress Note-Physicianon Progress Note-Physician Patient: YOUSIF AGUILAR Age: 77 years Sex: Male : 1945 Associated Diagnoses: None Author: MD Rudd Ahmad F Postoperative Information Postoperative disposition: Postoperative disposition: To PACU. Optimetrix number: Optimetrix number [id number]. Anesthetic utilized: General. Health Status Allergies: Allergic [...] meets criteria ( To home ). Normal [facility] Comment on above: Result Comment: [...] constipation, # 40 cap(s), Refills(s) 0, Pharmacy: [facility]/pharmacy #6173, 177, cm, 10/22/23 12:25:00 EST, Height/Length Dosing, 132.5, kg, 10/22/23 12:25:00 EST, Weight Dosing Billings 325 mg-5 mg oral tablet: See Instructions, for pain, 40 tab(s), Refill(s) 0, 1 - 2 po q4-6h prn pain Dx: S52.031D Duration: 7 days, [facility]/pharmacy #6173, 177, cm, 10/22/23 12:25:00 EST, [...] Problems High blood pressure / SNOMED CT 7361732280 / Confirmed Hypercholesterolemia / ICD-9-CM 272.0 / Confirmed Lymphedema / SNOMED CT 61445396 / Confirmed 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 / SNOMED CT 319254455 / Confirmed History of colon polyps / SNOMED CT 7111554318 / Confirmed Colon polyp / SNOMED CT 573355280 / Confirmed Diverticulosis / SNOMED CT 6489502273 / Confirmed Hemorrhoids / SNOMED CT 201713387 / Confirmed Extreme obesity / SNOMED CT 81Q04233-9GU2-79F0-Z834-5 [id number] / Possible Resolved: DVT / SNOMED CT 460198947 Resolved: PE - Pulmonary embolism / SNOMED CT 8191688910 Resolved: Stasis dermatitis co-occurrent with venous ulcer of right lower extremity due to chronic peripheral venous hypertension / SNOMED CT 013413645162535 Resolved: Stasis dermatitis of left lower extremity due to peripheral venous hypertension / SNOMED CT 950702354391755 Resolved: Stasis dermatitis of right lower extremity due to peripheral venous hypertension / SNOMED CT 285544243519844 Resolved: Stasis dermatitis and venous ulcer of left lower extremity due to chronic peripheral venous hypertension / SNOMED CT 464415520342340 Histories Past Medical History: Active Hypercholesterolemia (272.0) Lymphedema (84351585) Resolved PE - Pulmonary embolism (8768135792): Onset on 12/01/2005 at 60 years. Resolved. DVT (364986865): Resolved. Stasis dermatitis co-occurrent with venous ulcer of right lower extremity due to chronic peripheral venous hypertension (078014916574583): Resolved. Stasis dermatitis of left lower extremity due to peripheral venous hypertension (042401844167853): Resolved. Stasis dermatitis of right lower extremity due to peripheral venous hypertension (897129257352580): Resolved. Stasis dermatitis and venous ulcer of left lower extremity due to chronic peripheral venous hypertension (194694655106331): Resolved. Family History: Hyperlipidemia Mother Heart disease Father Non Hodgkin's lymphoma Mother Procedure history: ORIF of Right Elbow (805642311) on 10/28/2023 at 77 Years. Colonoscopy (973664918) on 03/04/2022 at 76 Years. EVLT RLSV [...] fracture in 1966 at 21 Years. Appendectomy (546508311) in 1952 at 7 Years. bilateral wrist [...] visible). Respiratory (more content not included)... Normal [facility] Comment on above: Result Comment: Elec tronically Signed By: MD Kar, Jemima Bella\.br\Date and Time Signed: 11/01/23 18:14 EST Operative Reporton Operative Report SURGERY DATE: 2022 FORM SETTER STE[employer] FORMS: Samuel Gonsalez PA-C PREOPERATIVE DIAGNOSIS: Right olecranon fracture POSTOPERATIVE DIAGNOSIS: Right olecranon fracture OPERATION: Right olecranon open reduction internal fixation ANESTHESIA: General ANESTHESIOLOGIST: CINDY Faria ESTIMATED BLOOD LOSS: None SPECIMEN: None COMPLICATIONS: None IMPLANT: 0.062 K-wire x2 with 18 gauge dental wire for a kmovfo-ga-dlooa tension band construct HISTORY/OPERATIVE INDICATIONS: Yousif is [...] visualized. It is then fixed with a bnfulo-ze-updpu construct as described below. Samuel Gonsalez did [...] This is done in the standard fashion. Rwvtuv-aa-ujntf is then applied, tensioned accordingly, is cut [...] patient is subsequently extubated, transferred to the [facility] and taken to Post-Anesthesia Care Unit in stable condition. He will be discharged this day. Heath Orourke Dictated: 10/28/2023 [id number] Transcribed: 10/29/2023 cc:Abbie Gtz III, D.O. [facility] Comment on above: Result Comment: Elec tronically Signed By: Theresa Villalpando DO\.br\Date and Time Signed: 10/30/23 11:53 EST Consent for Anesthesiaon Consent for Anesthesia [id number]#1.00TIFF Normal [facility] Discharge Instructionson Discharge Instructions [id number]#1.00TIFF Normal [facility] Insurance Correspondence Off iceon 10-29-2023 Insurance Correspondence Office [id number]#1.00TIFF Normal [facility] IntraOperative Documentson 1 12-29-2022 IntraOperative Documents [id number]#1.00TIFF Normal [facility] Main OR Intraoperative Recor don 10-29-2023 Main OR Intraoperative Record IntraOp Document Type FT Summary Primary Physician: Theresa Villalpando DO Finalized Date/Time: 10/29/23 12:32:07 Pt. Name: DANIAYOUSIF D.O.B./Sex: 1945 Male Med Rec #: [id number] Physician: Theresa Villalpando DO Financial #: [id number] Pt. Type: A Room/Bed: [place] [address] Admit/Disch: 10/28/23 10:36:00 - 10/28/23 17:40:00 Institution: [...] Alfred Role Performed Anesthesiologist Surgeon - Primary PA/TERMINAL OPERATIONS MANAGER White Lead Filterer Time In 10/28/23 14:07:00 10/28/23 14:07:00 10/28/23 [...] C Roll RT, Daniel P Role Performed Web Software Engineer - Primary Scrub - Primary Stone Cleaner Time In 10/28/23 14:07:00 10/28/23 14:07:00 10/28/23 [...] and tissue Entry 1 Skin Integrity Intact, [place], Warm, and Skin Abnormality No Dry Outcomes [...] symptoms o (more content not included)... Normal [facility] Preoperative Documentson Preoperative Documents [id number]#1.00TIFF Normal [facility] XR Elbow 2 Views Righton [...] mGy = 1.66 DAP = na Normal [facility] Consent for Treatmenton 10-02 Consent for Treatment [id number]#1.00TIFF Normal [facility] Discharge Instructionson Discharge Instructions DANIA [...] physician. This Is Your Medications List acetaminophen-hydrocodone (Billings 325 mg-5 mg oral tablet) atorvastatin (atorvastatin [...] Appointment has already been scheduled Where: [address] [place] [address]- [employer] (1) Medications What How Much When Instructions Next Dose Unchanged acetaminophen-hydrocodone (Billings 325 mg-5 mg oral tablet) See instructions 1 - 2 po q4-6h prn pain Dx: S52.031D Duration: 7 days Pickup at [facility]/pharmacy #6173 Unchanged atorvastatin (atorvastatin 20 mg Tab) 1 Tablets By Mouth Once a day (at bedtime) Unchanged docusate (Colace 100 mg Cap) 1 Capsules By Mouth 2 times a day as needed for for constipation Pickup at [facility]/pharmacy #6173 Unchanged hydrochlorothiazide (hydrochlorothiazide 25 mg oral tablet) 1 Tablets By Mouth Every day Unchanged rivaroxaban (Xarelto 2.5 mg oral tablet) 2 Tablets By Mouth Every day Pharmacy Information [facility]/pharmacy #6173: [address] [place], [place] [id number] [phone] Test Results No qualifying data available. Allergies [...] WIRE 10/28/2023 [employer] (2), 10/28/2023 [employer] [place], [place] [facility] OUTPATIENT SURGERY Home Care [...] pain a (more content not included)... Normal [facility] Comment on above: Result Comment: Elec tronically Signed By: Flavio PHELPS, Mariluo Aguero\.br\Date and Time Signed: 10/28/23 16:53 EST H&P Updateon 10-28-2023 H&P Update [id number]#1.00TIF F Normal [facility] Main OR PACU I Recordon 10-02 Main OR PACU I Record PACU Phase I Document Type FT Summary Primary Physician: Theresa Villalpando DO Finalized Date/Time: 10/28/23 16:14:58 Pt. Name: YOUSIF AGUILAR D.O.B./Sex: 1945 Male Med Rec #: [id number] Physician: Theresa Villalpando DO Financial #: [id number] Pt. Type: A Room/Bed: [place] [address] Admit/Disch: 10/28/23 10:36:00 - Institution: Case Times [...] By: Elizabeth Rowe RN 10/28/23 16:14 Normal [facility] Main OR Preoperative Recordo n 10-28-2023 Main OR Preoperative Record PreOp Document Type FT Summary Primary Physician: Theresa Villalpando DO Finalized Date/Time: 10/28/23 14:12:47 Pt. Name: YOUSIF AGUILAR Jimbo Gaines/Sex: 1945 Male Med Rec #: [id number] Physician: Theresa Villalpando DO Financial #: [id number] Pt. Type: A Room/Bed: [facility] Admit/Disch: 10/28/23 10:36:00 - Institution: [...] Signed By: Idris Brooks 10/28/23 14:12 Normal [facility] Monitor Recordon 10-28-2023 Monitor Record [id number] Normal [facility] Patient Education - Texton 1 12-28-2022 Patient Education - Text [place], [place] [facility] OUTPATIENT SURGERY Home Care [...] drive. __ Theresa Villalpando DO [facility] [address] [place] [address] Reviewed: 03-08 [facility] Progress Note-Physicianon Progress Note-Physician Patient: YOUSIF AGUILAR Age: 77 years Sex: Male : 1945 Associated Diagnoses: None Author: Theresa Villalpando DO Postoperative Information Procedure: R Olecranon ORIF Preoperative Diagnosis: R olecrjerome fx. Postoperative Diagnosis: same. Performed by: camila. White Lead Filterer: Wallace. Specimens Removed: none. Prosthesis: tension band. . Estimated Blood Loss: 0 ml. Complications: None. Anesthesia type: General. Normal [facility] Comment on above: Result Comment: Elec tronically Signed By: Theresa Villalpando DO\Date and Time Signed: 10/28/23 15:37 EST CHEMISTRYOrdered By: SYSTEM SYSTEM on 10-27-2023 Potassium [Moles/Vol] 3.6 mmol/L Normal 3.5 - 5.3 mmol/L [facility] Remisol Consent for Procedure/Surger yon 10-27-2023 Consent for Procedure/Surgery [id number]#1.00TIFF Normal [facility] Consent for Treatmenton 10-02 Consent for Treatment [id number]#1.00TIFF Normal [facility] Physician Orderon 10-27-2023 Physician Order [id number]#1.00TIFF Normal [facility] Potassiumon 10-27-2023 Potassium [Moles/Vol] 3.6 mmol/L Normal 3.5-5.3 [facility] Comment on above: Performed By: #### 2 [id number] #### [facility] Laboratory [address] [place] [address] XR Chest 2 Viewson 3 XR Chest [...] mGy = na DAP = na Normal [facility] Auto Diffon 10-22-2023 Basophils/100 WBC (Bld) 0.3 % Normal 0.0-2.0 [facility] Comment on above: Order Comment: Order Added by Discern Expert. Performed By: #### 2 247177, 3616137, 7942255, 59679850 ####[facility] [address] [place] [address] Basophils/Leukocytes Auto (Bld) [Pure # fraction] 0.0 E9/L Normal 0.0-0.2 [facility] Comment on above: Order Comment: Order Added by Discern Expert. Performed By: #### 2 654030, 9078163, 3691289, 06833543 ####[place] [address] [place] [address] Eosinophils/100 WBC (Bld) 3.6 % Normal 0.0-8.0 [facility] Comment on above: Order Comment: Order Added by Discern Expert. Performed By: #### 2 846022, 5217690, 4188212, 13371531 ####[facility] [address] [place] [address] Eosinophils/Leukocyt es Auto (Bld) [Pure # fraction] 0.3 E9/L Normal 0.0-0.5 [facility] Comment on above: Order Comment: Order Added by Discern Expert. Performed By: #### 2 572729, 6530019, 9061768, 09119798 ####[facility] [address] [place] [address] Lymphocytes/100 WBC (Bld) 15.5 % Normal 14.0-50.0 [facility] Comment on above: Order Comment: Order Added by Hilda Expert. Performed By: #### 2 139627, 9982443, 6248539, 26165790 ####[facility] [address] [place] [address] Lymphocytes/Leukocyt es Auto (Bld) [Pure # fraction] 1.1 E9/L Normal 1.0-4.0 [facility] Comment on above: Order Comment: Order Added by Discern Expert. Performed By: #### 2 588554, 0726121, 5101467, 74917814 ####[address] [place] [address] Monocytes/100 WBC (Bld) 9.5 % Normal 4.0-14.0 [facility] Comment on above: Order Comment: Order Added by Discern Expert. Performed By: #### 2 463149, 3215023, 6742949, 62522265 ####[address] [place] [address] Monocytes/Leukocytes Auto (Bld) [Pure # fraction] 0.7 E9/L Normal 0.2-1.0 [facility] Comment on above: Order Comment: Order Added by Discern Expert. Performed By: #### 2 929634, 8478832, 3449830, 49885091 ####[address] [address] Neutrophils/100 WBC (Bld) 71.1 % Normal 36.0-75.0 [facility] Comment on above: Order Comment: Order Added by Discern Expert. Performed By: #### 2 418297, 7355426, 9915769, 09216549 ####[address] [place] [address] Neutrophils/Leukocyt es Auto (Bld) [Pure # fraction] 5.2 E9/L Normal 2.0-7.5 [facility] Comment on above: Order Comment: Order Added by Discern Expert. Performed By: #### 2 831423, 1625491, 4451558, 49509156 ####[address] [place] [address] BMPon 10-22-2023 Anion gap [Moles/Vol] 13 mmol/L Normal 6-16 [facility] Comment on above: Performed By: #### 2 227587, 1079447, 8807320, 87499568 ####[address] [place] [address] Calcium [Mass/Vol] 8.4 mg/dL Low 8.9-11.1 [facility] Comment on above: Performed By: #### 2 063797, 8521526, 4926478, 64908794 ####[facility] [address] [address] Chloride [Moles/Vol] 97 mmol/L Low 101-111 [facility] Comment on above: Performed By: #### 2 435708, 5889435, 4102254, 18809381 ####[facility] [address] [place] [address] CO2 [Moles/Vol] 31 mmol/L Normal 21-31 [facility] Comment on above: Performed By: #### 2 359511, 6588001, 6937569, 39628713 ####[facility] [address] [place] [address] Creatinine [Mass/Vol] 0.9 mg/dL Normal 0.5-1.3 [facility] Comment on above: Performed By: #### 2 890538, 0374387, 0303540, 41118849 ####[facility] [address] [place] [address] Glucose [Mass/Vol] 105 mg/dL Normal 55-199 [facility] Comment on above: Result Comment: If t his glucose result represents a fasting glucose, interpretation should refer to the following reference range: 55-99 mg/dL Performed By: #### 2 483599, 6011845, 8442566, 07881304 ####[facility] [address] [place] [address] Potassium [Moles/Vol] 2.8 mmol/L Abnormal 3.5-5.3 [facility] Comment on above: Result Comment: Crit ical Result verified by repeat analysis\Critical Result S_K:2.8 Called to [facility] by MITALI DUBON And Read Back For Confirmation at: 10/22/2023 13:36:24 Performed By: #### 2 446610, 9451256, 1020178, 33620578 ####[facility] [address] [place] [address] Sodium [Moles/Vol] 138 mmol/L Normal 135-145 [facility] Comment on above: Performed By: #### 2 572298, 8578618, 2618250, 86746049 ####[facility] [address] [place] [address] Urea nitrogen [Mass/Vol] 17 mg/dL Normal 5-21 [facility] Comment on above: Performed By: #### 2 350631, 5318160, 9640279, 61345187 ####[facility] [address] [place] [address] Urea nitrogen/Creatinine [Mass ratio] 19 No Units Normal 10-20 [facility] Comment on above: Performed By: #### 2 531819, 7536471, 4202402, 65725369 ####[facility] [address] [place] [address] CBC w/ Auto Diffon 3 Erythrocyte distribution width (RBC) [Ratio] 14.1 % Normal 10.9-14.2 [facility] Comment on above: Performed By: #### 2 630357, 3245217, 8917427, 12099207 ####[facility] [address] [place] [address] Hematocrit (Bld) [Volume fraction] 32.6 % Low 37.7-49.0 [facility] Comment on above: Performed By: #### 2 985869, 0351249, 5635103, 52886451 ####[facility] [address] [place] [address] Hemoglobin (Bld) [Mass/Vol] 10.9 g/dL Low 13.5-17.5 [facility] Comment on above: Performed By: #### 2 057606, 3259968, 4971076, 20809794 ####[address] [place] [address] MCH (RBC) [Entitic mass] 28.9 pg Normal 27.0-34.0 [facility] Comment on above: Performed By: #### 2 031294, 4320585, 1490042, 90421493 ####[address] [address] MCHC (RBC) [Mass/Vol] 33.5 g/dL Normal 31.4-36.0 [facility] Comment on above: Performed By: #### 2 671394, 9324757, 0045360, 53996139 ####[address] [address] MCV (RBC) [Entitic vol] 86.3 fL Normal 80.0-100.0 [facility] Comment on above: Performed By: #### 2 593360, 3446900, 1258913, 44215401 ####[place] [address] Platelet mean volume (Bld) [Entitic vol] 8.8 fL Normal 6.4-10.8 [facility] Comment on above: Performed By: #### 2 370843, 3758752, 3010671, 95205256 ####[address] [address] Platelets (Bld) [#/Vol] 245.0 E9/L Normal 150.0-500.0 [facility] Comment on above: Performed By: #### 2 569204, 5701131, 0104138, 36580493 ####[address] [address] RBC (Bld) [#/Vol] 3.8 E12/L Low 4.3-5.9 [facility] Comment on above: Performed By: #### 2 155444, 6380631, 1030317, 76779968 ####[address] [address] WBC corrected for nucl RBC Auto (Bld) [#/Vol] 7.4 E9/L Normal 4.0-11.0 [facility] Comment on above: Performed By: #### 2 455363, 0206137, 8273370, 73218987 ####[facility] [address] [place] [address] CHEMISTRYOrdered By: SYSTEM SYSTEM on 10-22-2023 Anion [...] 89 mL/min/1.73 m2 Normal >=59mL/min/ 1.73 m2 [facility] Chem S Comment on above: Interpretive Data: [...] Called to [facility] by MITALI DUBON And Read Back For Confirmation at: 10/22/2023 13:36:24 Sodium [Moles/Vol] 138 mmol/L Normal 135 - 145 mmol/L FT Remisol Urea nitrogen [Mass/Vol] 17 mg/dL Normal 5 - 21 mg/dL FT Remisol Urea nitrogen/Creatinine [Mass ratio] 19 mg/mg Normal 10 - 20 [facility] Remisol Consent for Treatmenton 10-02 Consent for Treatment [id number] Normal [facility] HEMATOLOGYOrdered By: SYSTEM SYSTEM on [...] [Vol rate/Area] 89 mL/min/1.73 m2 Normal >=59 [facility] Comment on above: Order Comment: Order added by Discern Expert. Result Comment: End Worker mercy kidney disease could be indicated at eGFR's of less than 60 mL/min/1.73m2. Kidney failure is indicated at less than 15 mL/min/1.73m2. Performed By: #### 2 582955, 3722632, 4175284, 90753279 ####[facility] [address] [place] [address] Consent for Treatmenton 10-01 Consent for Treatment [id number] Normal [facility] Discharge Instructionson Discharge Instructions [id number]#1.00TIFF Normal [facility] ED Clinical Summaryon 2022 ED Clinical Summary (Inserted Image. Clarissa ble to display) [address] [address] ED Clinical Summary Person Information Name: YOUSIF AGUILAR Olga Lidia/[facility] Age: 77 Years : 1945 Sex: Male Language: Welsh PCP: Abbie Gtz III, DO Marital Status: [...] 10/17/2023 23:43:34 10/17/2023 23:43:34 10/17/2023 23:43:34 ADDRESS: [address] [place] [id number] PHYS DOC NOTES: MEDICAL INFORMATION: Prescriptions Given: New Medications [facility] 1986, [address] [facility] [place], [place] [id number], [phone] acetaminophen-hydrocodone (Billings 325 mg-5 mg oral tablet) 1 Tablets [...] up: With: Address: When: Theresa Villalpando [address] [place] [address] Business (1) In 3 days 10/20/2023 Comments: You can use the pain medication every 6 hours as needed for pain. Please follow-up with your primary care doctor addition to orthopedics for further evaluation management. Please return to the ED for any new or worsening symptoms. With: Address: When: Abbie Gtz [address] [facility], [place] [address] Business (1) In 3 days DIAGNOSIS: Olecranon fracture Normal [facility] ED Note-Physicianon 10-18-20 ED Note-Physician [...] and Complexity of Problems Differential Diagnosis: [] [facility] Data External documents reviewed: [] My [...] for 3 day(s), 10 tab(s), Refill(s) 0, [facility] 1985, 177.8, cm, 10/17/23 21:21:00 EST, Height/Length Dosing, 133.1, kg, 10/17/23 21:21:00 EST, Weight Dosing Sling Apply XR Elbow 3+ Views Right Disposition Plan Discharge Prescription List Prescriptions Billings 325 mg-5 mg oral tablet, 1 tab(s), Oral, q6hr, PRN Follow-up With When Contact Information Theresa Villalpando In 3 days 10/20/2023 EST [address] [place] [address]- Business (1) Additional Instructions: You can use the pain medication every 6 hours as needed for pain. Please follow-up with your primary care doctor addition to orthopedics for further evaluation management. Please return to the ED for any new or worsening symptoms. Abbie Gtz In 3 days [address] [facility], [place] [address]- Business (1) Additional Instructions: Patient Education Olecranon [...] ex (more content not included)... Normal [facility] Comment on above: Result Comment: Elec tronically [...] these instructions at home: Medicines ? Take uanu-rjm-ruudkkk and prescription medicines only as told by your health care provider. ? Ask your health care provider if the medicine prescribed to you: ? Requires you to avoid driving or using heavy machinery. ? Can cause constipation. You may need to take actions to prevent or treat constipation, such as: ? Drink enough fluid to keep your urine pale yellow. ? Take wpgf-zxw-gtaxqmg or prescription medicines. ? Eat foods that [...] is import (more content not included)... Normal [facility] ED Patient Summaryon 023 ED Patient Summary (Inserted Image. Clarissa ble to display) [place] [id number] Patient Discharge Instructions Person Information Name: YOUSIF AGUILAR Age: 77 Years Arrival Date: 10/17/2023 21:13:58 Discharge Diagnosis: Olecranon fracture Primary Care Physician: Abbie Gtz III, DO Provider Information Primary Provider: Bryce Funk DO Advanced Goggles Assembler:None The exam and treatment you received in the Emergency Department were for an urgent problem and are not intended as complete care. It is important that you follow up with a doctor, nurse practitioner, or physician?s surgical services assistant for ongoing care. If your symptoms [...] Instructions: With: Address: When: Theresa Villalpando [address] [place] [address] Business (1) In 3 days 10/20/2023 Comments: You can use the pain medication every 6 hours as needed for pain. Please follow-up with your primary care doctor addition to orthopedics for further evaluation management. Please return to the ED for any new or worsening symptoms. With: Address: When: Abbie Gtz [address] [facility], [facility] [place] [address] Business (1) In 3 days In the event that this physician does not participate in your insurance network, please consult with your insurance company to find a nearby participating provider. Patient Education Materials: William Fracture A MESSAGE TO ALL PATIENTS REGARDING OPIOIDS PRESCRIPTION OPIOIDS: WHAT YOU NEED TO KNOW Prescription opioids can be used to help relieve sqdeeazy-xn-dflxes pain and are often prescribed following a [...] following g (more content not included)... Normal [facility] ED Traumaon 10-18-2023 ED Trauma [id number] 47418 [id number]#1.00TIFF Normal [facility] XR Elbow 3+ Views Righton [...] in mGy = na DAP = na [facility] Pre-Arrival Noteon 3 Pre-Arrival Note Pre-Arrival Summary Name: , ncems Current Date: 10/17/2023 21:14:37 EST Gender: Male Date of : Age: 77 Pre-Arrival Type: EMS ETA: 10/17/2023 21:06:00 EST Primary Care Physician: Presenting Problem: T2-fall, elbow pain Pre-Arrival User: Nicholas Rosario RN Referring Source: [facility] Completion Date/Time: 10/17/2023 21:06:00 [facility] Emergency Department Pre-Hospital Report Form ____ Vital Signs: Pre-Hospital Report: slipped on kitchen floor falling to R elbow, swelling noted. denies hitting head or LOC. on xarelto. no other pain/complaints Treatment in Route: none Response to Treatment: Misc. Issues: Normal [facility] Nursing Note - Woundon 08-12 Nursing Note - Wound [id number] 944324 [id number]#1.00CD:1 27 [facility] Consent for Procedure/Surger yon 08-05-2023 Consent for Procedure/Surgery [id number]#1.00CD:1 27 [facility] Consent for Treatmenton Consent for Treatment [id number]#1.00CD:12 7 [facility] Physician Orderon 08-05-2023 Physician Order [id number]#1.00CD:1 27 [facility] Nursing Note - Woundon 07-31 Nursing Note - Wound 170.71.691.239.7960 273912 [id number]#1.00CD:1 27 [facility] Physician Orderon 07-31-2023 Physician Order [id number]#1.00CD:1 27 [facility] Consent for Treatmenton 07-02 Consent for Treatment [id number]#1.00CD:12 7 [facility] Multi-Wound Charton 07-29-20 Multi-Wound Chart [id number] 20479 [id number]#1.00CD:1 27 [facility] Nursing Assessment - Woundon 07-29-2023 Nursing Assessment - Wound [id number]#1.00CD:1 27 [facility] Procedure - Woundon 07-29-20 Procedure - Wound 170.71.121.117.07112 60925 [id number]#1.00CD:1 27 [facility] Consent for Treatmenton 07-02 Consent for Treatment [id number]#1.00CD:12 7 [facility] Multi-Wound Charton 07-22-20 Multi-Wound Chart [id number] 37279 [id number]#1.00CD:1 27 [facility] Nursing Assessment - Woundon 07-22-2023 Nursing Assessment - Wound [id number]#1.00CD:1 27 [facility] Nursing Note - Woundon 07-22 Nursing Note - Wound 170.71.268.674.0563 623534 [id number]#1.00CD:1 27 [facility] Physician Orderon 07-22-2023 Physician Order [id number]#1.00CD:1 27 [facility] Procedure - Woundon 07-22-20 Procedure - Wound 170.71.121.117.61351 [id number] [id number]#1.00CD:1 27 [facility] Progress Note - Woundon 07-02 Progress Note - Wound [id number]#1.00CD:1 27 [facility] Consent for Treatmenton 07-01 Consent for Treatment [id number]#1.00CD:127 [facility] Physician Orderon 07-15-2023 Physician Order [id number] [id number]#1.00CD:1 27 [facility] Multi-Wound Charton 07-14-20 Multi-Wound Chart 170.71.121.117.68703 87624 [id number]#1.00CD:1 27 [facility] Nursing Assessment - Woundon 07-14-2023 Nursing Assessment - Wound [id number]#1.00CD:1 27 [facility] Nursing Note - Woundon 07-14 Nursing Note - Wound 170.71.008.128.3444 894906 [id number]#1.00CD:1 27 [facility] Consent for Procedure/Surger yon 07-08-2023 Consent for Procedure/Surgery [id number]#1.00CD:1 27 [facility] Consent for Procedure/Surgery [id number]#1.00CD:1 27 [facility] Consent for Treatmenton Consent for Treatment [id number]#1.00CD:12 7 [facility] Multi-Wound Charton 07-08-20 Multi-Wound Chart 170.71.121.117.40597 41378 [id number]#1.00CD:1 27 [facility] Nursing Assessment - Woundon 07-08-2023 Nursing Assessment - Wound [id number]#1.00CD:1 27 [facility] Nursing Note - Woundon 07-08 Nursing Note - Wound 170.71.919.265.9319 457077 [id number]#1.00CD:1 27 [facility] Physician Orderon 07-08-2023 Physician Order [id number]#1.00CD:1 27 [facility] Procedure - Woundon 07-08-20 Procedure - Wound 170.71.121.117.93828 82492 [id number]#1.00CD:1 27 [facility] Progress Note - Woundon Progress Note - Wound [id number]#1.00CD:1 27 [facility] Multi-Wound Charton 07-01-20 Multi-Wound Chart 170.71.121.117.32439 [id number] [id number]#1.00CD:1 27 [facility] Nursing Note - Woundon 07-01 Nursing Note - Wound 170.71.167.205.1060 114407 [id number]#1.00CD:1 27 [facility] Consent for Treatmenton 06-02 Consent for Treatment [id number] [id number]#1.00CD:12 7 [facility] Insurance Correspondenceon 0 06-30-2023 Insurance Correspondence [id number]#1.00CD:1 27 [facility] Physician Orderon 06-30-2023 Physician Order [id number]#1.00CD:1 27 [facility] Procedure - Woundon 06-30-20 Procedure - Wound 170.71.121.117.32439 40407 [id number]#1.00CD:1 27 [facility] Consent for Treatmenton 06-01 Consent for Treatment [id number]#1.00CD:12 7 [facility] Multi-Wound Charton 06-24-20 Multi-Wound Chart 170.71.121.117.11856 [id number] [id number]#1.00CD:1 27 [facility] Nursing Assessment - Woundon 06-24-2023 Nursing Assessment - Wound [id number]#1.00CD:1 27 [facility] Nursing Note - Woundon 06-24 Nursing Note - Wound 170.71.132.692.7093 675863 [id number]#1.00CD:1 27 [facility] Physician Orderon 06-24-2023 Physician Order [id number]#1.00CD:1 27 [facility] Procedure - Woundon 06-24-20 Procedure - Wound 170.71.121.117.12693 06374 [id number]#1.00CD:1 27 [facility] Progress Note - Woundon 06-01 Progress Note - Wound [id number]#1.00CD:1 27 [facility] Consent for Treatmenton 05-31 Consent for Treatment [id number]#1.00CD:12 7 [facility] Multi-Wound Charton 06-17-20 Multi-Wound Chart 170.71.121.117.49363 [id number] [id number]#1.00CD:1 27 [facility] Nursing Assessment - Woundon 06-17-2023 Nursing Assessment - Wound [id number]#1.00CD:1 27 [facility] Nursing Note - Woundon 06-17 Nursing Note - Wound 170.71.859.882.4956 [id number] [id number]#1.00CD:1 27 [facility] Physician Orderon 06-17-2023 Physician Order [id number]#1.00CD:1 27 [facility] Procedure - Woundon 06-17-20 Procedure - Wound 170.71.121.117.50193 56886 [id number]#1.00CD:1 27 [facility] Progress Note - Woundon 05-31 Progress Note - Wound [id number] [id number]#1.00CD:1 27 [facility] Consent for Procedure/Surger yon 06-11-2023 Consent for Procedure/Surgery [id number]#1.00CD:1 27 [facility] Correspondence - Woundon Correspondence - Wound [id number] [id number]#1.00CD:1 27 [facility] Nursing Note - Woundon 06-11 Nursing Note - Wound 170.71.587.747.3389 [id number] [id number]#1.00CD:1 27 [facility] Physician Orderon 06-11-2023 Physician Order [id number]#1.00CD:1 27 [facility] Procedure - Woundon 06-11-20 Procedure - Wound 170.71.121.117.48727 97140 [id number]#1.00CD:1 27 [facility] Progress Note - Woundon 05-31 Progress Note - Wound [id number]#1.00CD:1 27 [facility] Consent for Treatmenton 05-31 Consent for Treatment [id number]#1.00CD:12 7 [facility] Multi-Wound Charton 06-10-20 Multi-Wound Chart 170.71.121.117.22490 24948 [id number]#1.00CD:1 27 [facility] Nursing Assessment - Woundon 06-10-2023 Nursing Assessment - Wound [id number]#1.00CD:1 27 [facility] Nursing Note - Woundon 06-09 Nursing Note - Wound 170.71.332.711.5221 648876 [id number]#1.00CD:1 27 [facility] Physician Orderon 06-09-2023 Physician Order [id number]#1.00CD:1 27 [facility] Procedure - Woundon 06-09-20 Procedure - Wound 170.71.121.117.85014 51477 [id number]#1.00CD:1 27 [facility] Progress Note - Woundon 05-31 Progress Note - Wound [id number]#1.00CD:1 27 [facility] Physician Orderon 06-06-2023 Physician Order [id number]#1.00CD:1 27 [facility] Procedure - Woundon 06-06-20 Procedure - Wound 170.71.121.117.15239 27089 [id number]#1.00CD:1 27 [facility] Multi-Wound Charton 06-05-20 Multi-Wound Chart 170.71.121.117.30499 18074 [id number]#1.00CD:1 27 [facility] Nursing Note - Woundon 06-05 Nursing Note - Wound 170.71.280.240.3078 479465 [id number]#1.00CD:1 27 [facility] Procedure - Woundon 05-28-20 Procedure - Wound 170.71.121.117.83187 82477 [id number]#1.00CD:12 7 [facility] Consent for Treatmenton 05-02 Consent for Treatment [id number]#1.00CD:12 7 [facility] Multi-Wound Charton 05-27-20 Multi-Wound Chart 170.71.121.117.25988 77085 [id number]#1.00CD:1 27 [facility] Nursing Note - Woundon 05-27 Nursing Note - Wound 170.71.075.421.7075 092883 [id number]#1.00CD:1 27 [facility] Physician Orderon 05-27-2023 Physician Order [id number] [id number]#1.00CD:1 27 [facility] Multi-Wound Charton 05-21-20 Multi-Wound Chart 170.71.121.117.58867 26318 [id number]#1.00CD:1 27 [facility] Nursing Note - Woundon 05-21 Nursing Note - Wound 170.71.800.932.4732 471589 [id number]#1.00CD:1 27 [facility] Physician Orderon 05-21-2023 Physician Order [id number]#1.00CD:1 27 [facility] Prescriptions/Work Noteson 0 05-21-2023 Prescriptions/Work Notes [id number]#1.00CD:1 27 [facility] Procedure - Woundon 05-21-20 Procedure - Wound 170.71.121.117.38738 73991 [id number]#1.00CD:1 27 [facility] Consent for Treatmenton 05-02 Consent for Treatment 159.140.128.36.0078771774 [id number]#1.00CD:12 7 [facility] Multi-Wound Charton 05-20-20 Multi-Wound Chart 170.71.121.117.95905 10401 [id number]#1.00CD:1 27 [facility] Nursing Assessment - Woundon 05-20-2023 Nursing Assessment - Wound [id number]#1.00CD:1 27 [facility] Consent for Treatmenton 05-01 Consent for Treatment [id number]#1.00CD:12 7 [facility] Consent for Procedure/Surger yon 05-06-2023 Consent for Procedure/Surgery [id number]#1.00CD:1 27 [facility] Consent for Treatmenton Consent for Treatment 159.140.128.34.5702503192 [id number]#1.00CD:12 7 [facility] Multi-Wound Charton 05-06-20 Multi-Wound Chart 170.71.121.117.73759 63093 [id number]#1.00CD:1 27 [facility] Nursing Assessment - Woundon 05-06-2023 Nursing Assessment - Wound [id number]#1.00CD:1 27 [facility] Nursing Note - Woundon 05-06 Nursing Note - Wound 170.71.818.423.9399 827228 [id number]#1.00CD:1 27 [facility] Physician Orderon 05-06-2023 Physician Order [id number] [id number]#1.00CD:1 27 [facility] Procedure - Woundon 05-06-20 Procedure - Wound 170.71.121.117.81175 56678 [id number]#1.00CD:1 27 [facility] Progress Note - Woundon Progress Note - Wound [id number]#1.00CD:1 27 [facility] Correspondence - Woundon Correspondence - Wound [id number] [id number]#1.00CD:12 7 [facility] Consent for Treatmenton 04-01 Consent for Treatment [id number]#1.00CD:12 7 [facility] Multi-Wound Charton 04-22-20 Multi-Wound Chart 170.71.121.117.36672 [id number] [id number]#1.00CD:1 27 [facility] Nursing Assessment - Woundon 04-22-2023 Nursing Assessment - Wound [id number] [id number]#1.00CD:1 27 [facility] Nursing Note - Woundon 04-22 Nursing Note - Wound 170.71.013.891.1153 853627 [id number]#1.00CD:1 27 [facility] Physician Orderon 04-22-2023 Physician Order [id number] [id number] [id number]#1.00CD:1 27 [facility] Procedure - Woundon 04-22-20 Procedure - Wound 170.71.121.117.28689 65676 [id number]#1.00CD:1 27 [facility] Progress Note - Woundon 04-01 Progress Note - Wound [id number]#1.00CD:1 27 [facility] Correspondence - Woundon Correspondence - Wound [id number]#1.00CD:12 7 [facility] Consent for Treatmenton 03-31 Consent for Treatment 159.140.128.34.6922830191 [id number]#1.00CD:12 7 [facility] Correspondence - Woundon Correspondence - Wound [id number]#1.00CD:1 27 [facility] Multi-Wound Charton 04-15-20 Multi-Wound Chart 170.71.121.117.02468 17264 [id number]#1.00CD:1 27 [facility] Nursing Assessment - Woundon 04-15-2023 Nursing Assessment - Wound 170.71.121.117.4189375621 [id number]#1.00CD:1 27 [facility] Nursing Note - Woundon 04-15 Nursing Note - Wound 170.71.356.171.2132 999526 [id number]#1.00CD:1 27 [facility] Physician Orderon 04-15-2023 Physician Order [id number] [id number]#1.00CD:1 27 [facility] Procedure - Woundon 04-15-20 Procedure - Wound 170.71.121.117.49838 72554 [id number]#1.00CD:1 27 [facility] Progress Note - Woundon 03-31 Progress Note - Wound [id number]#1.00CD:1 27 [facility] Progress Note - Wound 170.71.121.117.7735321488 [id number]#1.00CD:1 27 [facility] Correspondence - Woundon Correspondence - Wound 149.45.122.6.569702982937 [id number]#1.00CD:12 7 [facility] Consent for Procedure/Surger yon 04-08-2023 Consent for Procedure/Surgery 149.45.122.20.63021361113 [id number]#1.00CD:1 27 [facility] Consent for Treatmenton Consent for Treatment 159.140.128.36.7466901277 [id number]#1.00CD:12 7 [facility] Multi-Wound Charton 04-08-20 Multi-Wound Chart 170.71.121.117.08945 16031 [id number]#1.00CD:1 27 [facility] Nursing Assessment - Woundon 04-08-2023 Nursing Assessment - Wound 170.71.121.117.5110442944 [id number]#1.00CD:1 27 [facility] Nursing Note - Woundon 04-08 Nursing Note - Wound 170.71.250.371.4710 971151 [id number]#1.00CD:1 27 [facility] Physician Orderon 04-08-2023 Physician Order [id number] [id number]#1.00CD:1 27 [facility] Procedure - Woundon 04-08-20 Procedure - Wound 170.71.121.117.82186 56856 [id number]#1.00CD:1 27 [facility] Consent for Treatmenton Consent for Treatment 159.140.128.36.3416425486 [id number]#1.00CD:12 7 [facility] Multi-Wound Charton 04-02-20 Multi-Wound Chart 170.71.121.117.76144 21577 [id number]#1.00CD:1 27 [facility] Nursing Note - Woundon 04-02 Nursing Note - Wound 170.71.540.527.4685 435057 [id number]#2.00CD:1 27 [facility] Physician Orderon 04-02-2023 Physician Order 170.71.121.117.36145 [id number] [id number]#2.00CD:1 27 [facility] Procedure - Woundon 04-02-20 Procedure - Wound 170.71.121.117.59363 78179 [id number]#1.00CD:1 27 [facility] Nursing Assessment - Woundon 03-27-2023 Nursing Assessment - Wound [id number] [id number]#1.00CD:1 27 [facility] [facility] Nursing Note - Woundon 03-27 Nursing Note - Wound [id number]#1.00CD:1 27 [facility] Coding Summary.on 03-26-2023 Coding Summary. CD:[id number] Ww+PG hlYWQ+XQ9ISZRdL15kbJLeuG6 mI9PVKUzMOccaNBKSKPrZFpMv qhYeRJ5vyTRyMSGp IC8+AP7hPJMmSngbdQNrd0T8i AM3T76zoh0qUYyfpDG9GOUlKm Rglcurk9edzQy9VRmxMwrnEoU t OWXvfV73WTB9sI14Gw15fZNei LXdq7ypmMg3WzKnRZOpRUE8vS qbKVyod2CqPSZyF24kbJMmc9R 6 PANtkJrmrGMlDqVlbTQ8tI8gH Xfkwlfjg4xgqiufJpk0mc47iM Nsf7Q6pXH0Z7PxvtH5DTKbbYY g ZzcziGVOfH6kgurpm0rvxadzG mYvBKDgFVd8NUa8WADyhCqfNn TaTN80XEI9VZBhliLhA8OdUDC s tRlqCaR5f1L0Kf6QB2HQUnohK 1VNTUFSWTwvdGQ+OD21ou42J4 BrAcrkGcf7XEVmCCY1wBQ6eY9 n WCMbWEswv2U8fDR1V1QfcwDpf x2on4xfOCXmDNtqT47mrWXip5 T8UTQvvTC2LGFagIcaUsFtsI8 3 Oyc+ZTHiiDcoq8HuAtxat1bgy 0vleOv9StolVIGfmzZpbHzmAQ H4k9EeBw2gWSGimIA9bWK3rK1 i PrEwDpD8MJumB105NtIzjVIsO zplF77nH9NpbJZ+QNDmXtl6OX KtpAydFC6nC0TpRJHtmtrjjSH m bGnyOH2hLJRhzscqMDJmkY0oT IBvP7f3JcErOzG5NEiaN2TzZJ WnpnrwIu94oQ6sCqIaJxF6THd u B1IpdaH6XINyjLMhFMxrGAX3W 86pf4S5REWsJSKkJAR0xHW5rD 1hbGlnbjogbGVmdDsgdmVydGl j MJtxSFzyP188CZVtoFtsLbJjG GluZyBEYXRlOiAgMDQvMjYvMj AyMzwvdGQ+RAUvERZ0xGxtWLQ n cLAvDCnuEn6jrTtmxXzuFX1aY TEpzkciKEOvcJ4pTJCnzSTogM gnKE1mENHjfyeay527CnVjEUK 0 JKGlxQWyZ7WvdA2gZhEbUKQkU MJdM8ApjKNeQRkjS624JUfuPz T7DYZboxEhD5IkXSWvkSitEdB 0 a2C2Yw1Ub2ZzgvngB3EtbOBnR zJtJnwtFFk3C0CoLcmeeLO+PC 29PAXfYA16YQg8RFI7iDwvLZk i HVYcI7VypX2vHsCxSGQkYPWuN yc+PHRhYmxlIHdpZHRoPScxMD QwPrRqmOasCL0oUl2cFYKkADF v oLkhjVSvExTnm3qeLBMiQErzL H5zcBpnB3XygCV1DSRes7w0Wb 89C47vU4MbaMG+VKOsxDD6nZW 0 tV6yLhNyFfQ2UNuwA930ToWdb TTaOnpns4gri0dmeSh7UfM4FR ChwhFuaUevTOV6k5VgPy21A35 s IHdpZHRoPSIxNSUiIHZhbGlnb r3rqL4hAv2+ELDuzES2dYE0iW 6iOyAmRtB6DRcpG547GuGkgUY v Meort8nvt1waqVg3HqSkUNBgu aIkkVrtIUN2r1KaGo62H3LsdT ebw5TrXyj3na36tLTen7T7aIK 9 Y1UvYVSeytgfoMOkgGiqHN5qJ JTukeckNFEcuE4hQNDtO2c8Gs SwMjB4RSbdW9NaegS6QFNoiGU g MNMrkBYAaB3igtvpx0szzpfkC dUnOEXpSOu7UIt4GESvoGshDz GaZNT2TaR9OQT6sZPvfE1okWy n mrigqT3rPmk+NJI5mWXmuKYON G1cGrwceXS+NXRnMSJ6sDdbLY aeOXWwhX2yUJRyF4f4ZgUxEeK 1 UVysV0TkoiP3VKWrzMEwJFKkt ATQxU7bpkgvk7yoktiuZzAfIY NdQQz5RMz9GUMouYecAjLnZUR 0 DyW2XSK2aPEcgB7hyWgqpiumx G9wOyc+BvyxwDipJKW7CMp9M7 UgTdj7SBUaeUumBL7umUPeMHu u Jf8xiEzqoUtzOJ1rWANgetanl 154SyUmy6zmZGMhyVYbMBrwBL W9P72kp8U4MKAjMFAaQUY7tMH 4 vN6zdMnbvrcmbRLmfDnvbxCsy UerXQxdTZedJ650WDUabOsuCy PpHDz7W0QsNeu9DCAdrPnmRX1 n vXHhOAwjYr4kvRrqrOjgXM9uR IPcdxovb943AcMxg5rqNBHukK JqPIkmEHP3P99gj4Z5URXzMIG w QGN4rJH0nN3ykDsfcbksxOKfw WvlmqBpzNzkWBpvJDeeF632TQ IcnDlzToBvrRq3P3MnYwk3MVV z uJyzFY1auOHmPWtnCd5uwNbtp FjmBK9jKCBrjjger620GnFnq2 ejWWCfaHKnYUtjMWN0S21oo0K 6 IJFaZDYtKVG4rEK4qF5eqTsdk jogbGVmdDsgdmVydGljYWwtYW oxM473YMCofKpnCiLrgXiiezS g JVcjNNn8W8HdQycgxZH+PC90Y BUnNJ24zKLmbHQmm0lpgYu6Dv ItUJOhLWI2jNqgQAinj3CmEPS t I89yhORgn8Q7HORwkXqaxYTsR sShdPS2nV7nPRkdxkjnw0zquv zgCqeru8gdkw04aU88D27rNHh p VNDkYYZaHASrVGMwoCuzrj8bh G9wIi8+ONVdwFE0fIZ4hA2hVX LfDrW2NPcqO694TqCckTQvSom j x6wkw8ydeNq8XpR2OLPxtgQlg DpxUVL1r9WzZk92U60bNRtnQS ExTGAkXVWtPSLmhXlunm5onO0 w Ii8+LENxiJH6sRW4iS3sTkSuK wV0SJmnN002ChFtsLTlPrimJ1 1oJ2LsoTO+GPElLen2IKXgoEh s YJ5ogBLmYAbaRw0hOAF8CjGpW cJwHAdkU4FoDYElppsphhmblR B1DAEzLXUppV76Dx8xpWqgMNC w eUTPmP8idgfpi3emkwqoXyWkW THyTHh2AOr6TDKgcQmbGkZiQX P4NzE0ZGY8lFOqhG3qjVzzdld g gD6iE1GeZIYeoiqzFa37cD4uW bFaHlC5ZNteTff+VEFOTkVSLC MVC83DYWThXMbqiUR+PHRkIHN 0 sSerVNkvGHWhtE8nEHNzH3e5F cQfKfR3PSamZ9WkGJZqocwpJv 31wE4zHjOaWyA1PYwfM5SxijH 6 RWYwqWRhQDzjQMY7W66ci7W4R ELnASEsIHQ5qWZ1kZ9qvHlnqi ogbGVmdDsgdmVydGljYWwtYWx p J193ARVhqLobOiUjVrJ1YgM1J Qg9P3RjEbt5IMCczHwqHN6ujN AoEPhuQh4urZrtfCjiTT6yASL p ptbnTYKtyK5pHBAghUMfjYzbF C9dSGYwbftgm496AjUnBNH5AW AbyMApD2RskR0iEuWkPUXbJWZ w Y1JlpKPsGRafG628HZkpQoF8R PHtfiYxD9TrAUGtvCdcVmJ9h7 X3Ru09DTNWAZTiglfzzOY+PHR k NYT0cDwwJCntOLRfuI9nMPZqD 7u7LcUcPzV7ITuhP1FzHTAgjc nvCz98yD0oJwZrTvX4CEmwM9H v cxL5VORfnVXkAKeiCVW4Q91hl 0J2UEPiFJZeAGR9wJM4rR4wcC lnbjogbGVmdDsgdmVydGljYWw t HUksH495DLGhzZobWs0vuLH6S 0JsCrw1VHJjlMcaQN2ymGPoCU raVs9prHcyaQtjZE9tEONpdza w JNMomW9kAXClyQGqnIjcXZ1gF BDcxlcry814HnQuWJJ2AEBszG JiE9QlzI3oIcUvIPKbURKbN8C l mWOoHMtdJ015HCbbIyS3KARyw fXgN5MgFRKkjHppHyE6h9O8Nd 6FbUZwGKFaDG37FP20ZB45M2Z y PjwvdGFibGU+PHRhYmxlIHdpZ RUjGEshJFBdFsPthNxhXX7mQm 3wXTWpBZHzwCssrLGxUfYyl7o s CDZnAKqjIJ5ijVnsR9CllAM7V QNrb1d4Km37C26zI6YrdDP+PG TodBM4eDU4mN9sXzWcEeO3TTe p H148RqNbuINmLcczv1tdr6vbe Gv7TaEmPORuauPgdNtuJOS1i4 AoNd66V44nPBzvDAGnRYVnQUC i QRYupCpcgq7imU7xUc1+PGNvb UJ4cWJ3sJ1gVeSnOyY8EOtfG0 86NsFgyDKbZjstS21oG0IbwZU + TWYcTpl7UQRnjDxwDF6oyMUtM KhjDs7rVOK3CcSjDlCyVUygJ6 RxHALjonqozvbwlVD9HFOqMVZ w qH32Gv3ycFweDk0uSJHeVFF0W GGwuJDmP5ThmB2kIyPgXHBvAQ UwQ1PxiMTxNBgbM075ORolAoR 7 GRRqrzVrU1HdEJTlfFakDlZ1y 0F6Ii6XrMgmtGXkVW0fDmMjLA n3K3JcIgs4YPDrdHdpUH3xiJV k MDnrFu8xgXaahBfqOL7lZCVjr jlvz291EpLlo6ccGWCgiLOlIO rpIZW3E78ba6K5GIFvEFNiMBL 7 eYH2rQ2siAnyzfmwcMDfaRalg qRyjCpeZZqdCVwuZ062PCGvjF ycWbDWSnm5P1WkQyd1PHXoxNi s KB7opFSeRZsmQy4djOujsWmsZ P7nWPZriavsy120HoQbm9ksBK EszANjXIohEBL8Y35if4N3CEA w FCYfALM9uRE9nN9anHsmqvopb GVmdDsgdmVydGljYWwtYWxpZ2 22XCQfxJzqAn9UWkj6X2TmRqr 0 DQLyvDcnTI3uhOIvAPntSl6oj IgebAtqQJ3fJVDpqpeqj292Ak Ckl1mvNDIosFTkTGonEZW9A76 s w0Q3LYEiYFFhIPC5kZN3wF7xz GlnbjogbGVmdDsgdmVydGljYW pyVSgrH114ASJiuEidZqDvtVM y OjwvdGQ+GJ98qj04H4YtEokqS ka0OKCuPEN3fLP4wG2pUYLbLL syw3D8fBE9Q6YmpkUuaz1ac2s s YXBzZTog (more content not included)... [facility] Consent for Treatmenton 03-02 Consent for Treatment [id number]#1.00CD:12 7 [facility] Multi-Wound Charton 03-25-20 Multi-Wound Chart [id number]#1.00CD:1 27 [facility] Physician Orderon 03-25-2023 Physician Order [id number]#1.00CD:1 27 [facility] Procedure - Woundon 03-25-20 Procedure - Wound [id number]#1.00CD:1 27 [facility] Progress Note - Woundon 04- Progress Note - Wound [id number]#1.00CD:1 27 [facility] Physician Orderon 03-19-2023 Physician Order [id number]#1.00CD:1 27 [facility] Procedure - Woundon 03-19-20 Procedure - Wound [id number]#1.00CD:1 27 [facility] Nursing Note - Woundon 03-18 Nursing Note - Wound [id number]#1.00CD:1 27 [facility] Consent for Treatmenton 03-01 Consent for Treatment [id number]#1.00CD:12 [facility] Multi-Wound Charton 03-17-20 Multi-Wound Chart [id number]#1.00CD:1 27 [facility] Physician Orderon 03-14-2023 Physician Order [id number]#1.00CD:1 27 [facility] Procedure - Woundon 03-14-20 Procedure - Wound [id number]#1.00CD:1 27 [facility] Coding Summary.on 03-13-2023 Coding Summary. CD:[id number] Ww+PG hlYWQ+ZS3YYFTgH72yyHPrxA6 rW1COZRgRIefoXOGWNUkNXxSr feXiSU1gjQSvPDOl IC8+OP3dISAlTrbaqKRfj3X0r BE2T50ltv5mAWnsqTM5FPSeUu Diarjdx1kutFl4IAthQpagNrW t BHSoaQ82WTJ4nP56Rp61vKAgk AUhx2ddoMb2ReVeUWTxGJZ9pJ dzXIhaw4LiKTGiJ59kcBPeb2V 6 NLOygFfhyKCpXsOxfNQ0uL7jO Zfmhyebc2vkuaynXno6yj26bQ Mfs5E0vOX9S5NfvsV3EIUggYL g YrvfeZTXpC0isxurq0kztvugB wHmPFKcCNg3PVj9NGZwcYdzAg YaHK37XEX4DMLfzhSqR5XlHNG s sRfoCcI8n8H5Oj1WG3EKQnzcM 1VNTUFSWTwvdGQ+IY16du18D9 QbMouxRwe9VSLxRQH5mOE9iU0 n QPYeGDdok9B3iDB7L7ZrbySeg c4fr6jwSCLhINvuH64naLMnz6 B2YLMbjML0TYZgcBrwSnXjjA2 3 Oyc+WERlzYxuq1HzLyeqw1mgi 5rwyWm3RjzcPAMwgzYhhRxuTU T5y9UxZs9bJBWrmZU9zMY2tC6 i UmFsHnB5WSsgJ481StVuvNIyW ijeH59bB0HtcKD+ZQViQmn9DY CraMehYY5mE9PnECRhcidgsGK m oTbdSD5wGAKtntzoNEGrjS5pP OCyX4h8TsXaRrJ4NSyhV4TsCA YnzxjpWq24fD4uIwXxCmZ4DNx u N0OqanR3YGAzqLEzCIjrMFD9Z 87cf7H7WVPoXPFlRTM1kWJ1jK 1hbGlnbjogbGVmdDsgdmVydGl j RLgoDBwxV615PWFnzSsyTgSnV GluZyBEYXRlOiAgMDQvMTMvMj AyMzwvdGQ+CAUhMCU7rHyoIBS n mBLoYNwbJy1pkTnbtIydHR8gD KBdpdejNPPrdP7tVSFfyXLgvS lgDK0rLBFcqnqdo961DhBzEIM 0 MRCkwGIwB8AntK4jPsJuHDUbQ XFrO9SlpXRuGUtdE969CHziWn V7VXCazhKoF0BkBTMokOjfWlT 0 d0V7Ed1Ve1IprclpF4MooVGqE qUoDxutRPl7V5SwCoivbAV+PC 46FVKySC45TRh3LRE9eTtqDXq i IIWiG1EkgX0bJmDrUHXvDISvV yc+PHRhYmxlIHdpZHRoPScxMD ZjZhXbyTnpRC8vGk7oHFPaQRX v bIbebZYrPaRqa2lgCZSyPMdmQ K9hePstL3NrmHJ7SSDfx9m8Sy 43L19wI8NpiKK+ZUYmlXH3vMK 0 dS5nLiLcMmV6UHvfW986YbKld UWqMsdry9myf6wbuTo8AtA3QK IrpgXbsRxqRMJ4h1XuRp72F66 s IHdpZHRoPSIxNSUiIHZhbGlnb o4irC2pQw4+AAOllDZ7dBZ6vR 7tBsDoYmZ7HXepG919RhKrsQF v Iodpl9wfw2yusMm4SbIrACDfz dTccWmhUPH3f1PyUo75M4CylC wfc9AgBmb2eq39cTNbf8J6yUH 9 Z0LoGBNxswuuqSJwwRvhTJ0aV HUwkfrgEYTwwP4nXPJjI2e5Vz JuOvO5UDudS3EmguC9EMPqoEN g XNCnfUJXxZ0aafssi6tmxvclW jKeFCOyRJk1COn9NLTbxKusIp SeERI8AqB1SGA5fTYxhY9asMb n iwetfB1jBqh+YOF2nLKjuDZQR O6aUgdtyMU+OZJdWZY4jUevNP khWBOjkB7xCSIkM7o8UvAxIsA 1 YQskH0KjhsJ9XHOciSXuEDYhw XDFbV3lemuxr6eowmutFgAlAY DoHSo1ZXs8NPLaqKrvVbBpEAI 0 ShX5ICS5lGDfrK9egXauccykr G9wOyc+WutfnSmnFCR3SGd6H4 HcHwc7OWNmdTxpCQ1muGApAAl u Kl4ubTncuFfzAK7pZWPfolebu 563YjYja5wjMNRfcLSwPWqsSG F1U97cs7F3DUTtPNQcNWD2kNA 4 uG4xlAxfwaxufOLcaPisbnNqi UetTDpsYOolH265PMCfbDzmRz DgADl5Z4BsJpr1PHCzrEaxPP4 n cWYpTCmhOr4pjRdbdKqtKX3cM FUvorpiy745QeRbg4uvNDFqkV VqPQnmRVW3P27dr8A1NWJnKFO w IXP7kZC2iF5qhWldekrthBHdb JprzvGiuMotBChjKLimO203WK UlyPubEoEwmTd6Z9AxZmq2CNW z pKlxCQ5xaFOhUBklKq1fsIwef EwdEA2vDWPmcxfhp884FgBrk2 dwVDYjxKQdVOvzSMJ0U12xv3J 6 RXTpSHMrXRG5sTD0oB4ewXnfd jogbGVmdDsgdmVydGljYWwtYW srQ912JZVahOcdMtUhhMdvrjD g RWfqMVt0Y8FpAocoiPI+PC90Y JNiPO53nWVzkHIoy7ohgDa4Sc LyRTVkGDI2yWpwVWzrh4GhDQF t K09nvTUcy4Y8XKXuoYrgwIMyT vCqbFJ4pU5uKRtmvqzxt5vcbt nzJdfju0pwfd33vM53P92vFGy p WTUvGGHoHIPdOQElmFxxfh4bg G9wIi8+SFGdqWI6lGO6kM6mLY DkKbU9XEntL914XfEevUJnCut j s6fts8fthRq3HxW2SCPtgfVbu LfvMTO5b8UfSt38B97nYDtaHU UpJHRpPVDkIWVqyKezmw6xjC8 w Ii8+MCHdfJO0eEZ2xA7rPqNsQ oK4RSjnB501PbTlnMEjKcxaW1 3jN0GwfZR+DFPhTau1HQFtqMx s PO5vpBTmVUikKo1bSYW4BoVpJ hLtZDrjH3YtUKSnlfogkkedkP Q5RGTrLWUioM91Nl2wyFscNPV w tQQDfT8bbpzsp1nygcpaTxCmR EFcRJt1WQk8KQTnuXtgJlGvEO T5BbD6VBR3vRTrnA4cyZbnmsw g dX6vD4OuAWGwwuaiZc39uA9dT gRfJoL0NFjiNne+VEFOTkVSLC ATO42MKLTlHVvepIW+PHRkIHN 0 tLdtHQiqFKAynY1qLRDdO4m1G lXyWvP6GXyrI6QwYCKttnsyBr 53zO3jNeWyTxC5OKpgM2LvfjC 6 KFSjfHAoJWshIWF5L24sz9Q9M BPdCCEcFUA7gPY8fW3plCordh ogbGVmdDsgdmVydGljYWwtYWx p M129MUQkkHdhIjUdCsF1RxF1R Jr0O3RtBxt5ZKFktJdoJE0pcG YwQHhiUd0wbQyraOkoBD4iDBX p buqxZKRgpN3tDVFcsGTxaMpuV C0xGGCtlrxmw260DuEwZEF8TB EagFFhF6EewY4vUoBlPBHtFYI w O3KdlBBqCFnqU117JDlyPtE3F AGfwvTsS9EkZTLpfGfsClA4i7 V5Oq88HEAVCTMtbnunjYT+PHR k XGV1qWdbXBrdVTVbkY6oWCEgS 9f3QqLnFnD2MFhlZ3OfGSBhdk dyZk53lK7uIzQvOrH3YNjkH4Z v luM9PAJxyGApWJluHZB6T15jv 8T6WYCsURTrDXA3pFB3iU4irE lnbjogbGVmdDsgdmVydGljYWw t YOwpM420JISydMbbOr6qpAC2V 5QgVug4HOSqjGxjMN9daOIaEI hfMw5ykSfnpHpsAL8aQRCiqzu w ZPLfiW0cZDImqHSoyRbxAG0hB LRpsklzm723GxGcUFQ2DTZbuP RxU6LgqQ8pEnBrRCUmFREyW8T l aXBtBFgfB307BEasXmE1YXUqc oFgG4YbSMIysVruYlK3x0D0Sb 1SkRYjOREdOX55CX24DY77I3I y PjwvdGFibGU+PHRhYmxlIHdpZ CVsLXcoVNIiRgMkvCvlSV3xVq 1jBZObAEFrhIdqhCNvIvRhj1c s YQGbZIuvXZ3veWayX2LhuKP5O BMiy5m4Fy47D99vV3EvnVK+PG MgvMT1vVZ8qH7oKlRjDnW6GYm p I621QwSsqXFxFemav4wmv1zvt Og8RnHsCTNxqyStoXgiNJU0p7 SmWk63T96hYYrpEYHjBHBwXVI i OMWywDkegz1juV6aMs4+PGNvb HZ1mCM8aH8hYqOmMeF8KWjbY8 34GeMccZPpKwksR24hF4BxmHR + WWOxLzr9WBMetOvrNT2gnXIeC WcpAr5uQIP1QdMfKhFtOZyjC0 McCTKsstnuzyumtTW0KCLjDOX w cB78Ca2rlVnxLu7lBMHiRCS4X HHhySRlZ3VfeV6bUkKaZOVrVT WbS2WldMMeUHqlT710DJndRaX 7 KYZabtFbH2AhEUBtbCvqIrA4k 3S5Tl0UtKnusKLsAL6iXbGeHD q3G3WqUku7MEEvxZemFR0wxEN k HWhaMe6hgYtlkWtmIB8mGGRne matx512AwTdb4blCXPceDVyRY ybQPN5X68xb8Q4ZHRnIMKzXXX 7 nPW3iN3clHzaqelcgORhcMybi qYjwDyhLTqlJWkfX811BAKiuE hhFdSFVop7P9ImTpj8KRLorTt s TG0nnVXkDAwsIk7mdWwltLseX H7hWYIcncmuh412JtFwh5qiGL EjtNVfMWqiRDV2G21nq3T8VCM w TDIjLMY3zRC8iL4ynIsofjvoi GVmdDsgdmVydGljYWwtYWxpZ2 52FUYuaExgPc5HCcj7Y9RaOfc 0 DWKdwKbuLP0knAQlOFkiDl4nv JnsnMhiPF4eMSFjvztsj949Wp Rbx5awLPYcjRAtYPciYTG6G36 s i0Z7IIOjWTIfDQX8nNJ4jX6md GlnbjogbGVmdDsgdmVydGljYW yeTQahW987YQUocRdzQyGemZC y OjwvdGQ+CF12kf73V5OoPgktO nk1HBNbZJN8cHU7eT2iBZXaJX jqu4K3tYF3V4XlkzGcey9ez6t s YXBzZTog (more content not included)... [facility] Multi-Wound Charton 03-13-20 23 Multi-Wound Chart [id number]#2.00CD:1 27 [facility] Nursing Note - Woundon 03-13 Nursing Note - Wound [id number]#1.00CD:1 27 [facility] Consent for Treatmenton 03-01 Consent for Treatment [id number]#1.00CD:12 7 [facility] Coding Summary.on 03-06-2023 Coding Summary. CD:[id number] Ww+PG hlYWQ+CT9DGMYkD54mfGMvhW9 iA5YLZBtQNscfIWLNVPnBKiDr xiHiYY4gcSGbWXWq IC8+FY9dXITqXdwjgFEzg5P2i JW2R17aoi5gCXincAR0GYVzCi Zcojkck8amaUb3ZRpbXfmlWwV t LZOscC15NLE1lH63Aj88iVDmi EBka4jkgQr9AxZuYRDhDYQ3mN fyHCaaw7TwPLMgE35ngIMfq2L 6 RKCegAdpbQLoPwBjnLE8nO1yB Lumjvlxw0bmxhnnFfv9ts70xG Gqm6O2aEP9O6IbepO9DRDroTC g VzpbbHUCtC8rtukrl6baseqzM hPvTTZtIQn0KMu9PHGtbHxeEf ThLC88FVS1PGXqwlMgY2BvNTC s qZniJaO7p0M3Rp3AY0WCXhnzW 1VNTUFSWTwvdGQ+ZL72xr37G9 FuPnvwYtj2ORJvFDO3cAE5gI7 n XUObTFcfr4R8hAC3U3EbnhRgc r2ix0cqRZKhOJvdE64ugTCcd7 S7MZVqbUX9QASreYshMwMqfI6 3 Oyc+VKGsdGlqh2MfAktei2bhm 5ftpAv2YmtuZDZisdPbeAolLN W2n7GbFj1aOIQgkJS0bUS9lG1 i VwFvXeL1EKtkE685BpFkaDZwY rwuQ42zI8UisDF+FEKaUtx5PC MjlFoiXW1nW5EhUVJdtjkmuXU m gSvzIJ8bBGFwhkpuBKFboZ0tO UDeF4j0OfWhCaK7QXxjP3TdFY SfqmazLr18rV1hYjPbOdW9MQo u K3MuvpL6OHPmbTKgFFcvHAB3X 79kk1K5WRUuENXiWJI8wSJ3lE 1hbGlnbjogbGVmdDsgdmVydGl j ONkuZCvkW858WQVibCdlIwWtA GluZyBEYXRlOiAgMDQvMDYvMj AyMzwvdGQ+JFNtECB0gLowKYE n mHXmAXwnNs4udRejkGvyTC4wR SZiwegrPOIfwD4iOJDagCIbrG rnBU4nSMZlckuuh456DfXmHTE 0 EBWfzZJlA7OyzO2wAtKnFHDpH UPcC9XtlAFjNNduC173DTqgCm H2HMVetsOtG7DyBMRoaZjsUlC 0 r7N5Ic0Fd4SndhcpN8MrnAHzZ aUoYpqiDYj1A0NgFgucmEP+PC 30WZHuGW45JIx5TCD0uWeiOJk i ZTIyY6OasG9oZaKqIPSdVLSjM yc+PHRhYmxlIHdpZHRoPScxMD HjLeTtxFkxTD9eOx8vNYEeYJW v bYpafMZdHvDgo8bgBQWkLYxhV T9xqMmdW9YvpKJ4RJAzn1i9Ck 10M55qH4YttTN+QMXdaXV8zNO 0 xM4qTtMtAcH7KOklN679UxDyu UMvRnsjg4sjf0iscDy8VnM3PM OsztUliVyeOQR6t7IiNg96L71 s IHdpZHRoPSIxNSUiIHZhbGlnb a6bwU1gGf1+HVAklVH8wFA7jS 7dAcUpFdH4BDpaD120NcZwsWW v Uokik3lry3qpkGk2UiPdWCKby vOjqDtjCHL0a0AdZc14C8EniA qqx1FwSth6hk96yRXrt1E5iLP 9 F8HyRWPunjihaKHpvJcsRS5zT IWxelljOUPfiG4uPTInF7p3Ul IiHpG2SGssN3BpnzU2VUKjjMD g YHMdkGVYhE1incheo2ixlvfcY nYnSFPuIFg5ODq1ZUFcmVedPt JmKQF3MtH1YLF4bIMlcP9bdEn n idzzvK3jHxq+IWU1mKFiuJCYZ Z1nSoyiiWH+JBWjMQT6hLzoZD ciZRIyyJ7fHDMlP9b7WbMqEeI 1 XFoyE6BpzvX3YSUecYByAWAsj EVLcD7ltrwma8cdktouAeMrDX XfCGu4QHl3DBScmLhoTjKgVNZ 0 FdM6LCP5pNUfjS0esMxyfhlxy G9wOyc+DvwdlRkqSXH3ADb4P0 YvEqa2DSNtyPxrGG8vsFOaRBs u Kq3bzJzuvOwaKZ6cMQBaegnzz 511KnNei3inRFRugMHjFXrbWC Q3R36mu2L1CGZbPFJpBLN6wCJ 4 rR5ylZqpqxoizEMzqUughoBuh HlwCVagGMgvU543ILJwrSnwSv WvDCm9B2MvBvy2UFOmfJpcMJ2 n gDAeUCnzDp7vmCctwVmsAW4lE FPnoeacd888MzUza8keLMObnL GiYAcpJNL1N54bj1N2ZBIeCCO w KRC2kZP0hV7raWiiwasosWOzn AftbuHzuCjhHMumRFbaO470NC TpfDmlHbWifUu3L3NkNqf8IAJ z vIcnIZ1chNBoNFalFd5ppKlre MbmYB9gISYsvorgk022UeHol4 uvQKWgiWYzYCqkEUA9S00ls8E 6 KWCaPCDkEWX9pYP1sU0shGgbs jogbGVmdDsgdmVydGljYWwtYW wwW744ORSfhUuyUwOybIurkaW g TMrzVDh7K9OlMeotoHE+PC90Y GZeCU94yXGaxMAlt3yayOw1Iq GwHMMvBEC4jVtxTHazz1XbCTI t O53zvPAym1R7ZVJsdLjsoHGzO vNwxPV8xD2tFTyredxfq2wzxs vtAiqfw3qvbs71wW02H48sTNk p RZPhFSKuJDJdKWIxjImgih4hu G9wIi8+COOicMW3pNZ4oK4iKH ZkCrG7OIbaX050SgAkePXoRrh j r3kaf8aqwJn1IbF6EQVuddYra OpvPQP1m1RgAt04N48aKDghHY XuDDEcSRZuAGMjmZnkor6zfY9 w Ii8+WRDjoZQ2nKM9qA8oPrPyU hT9WFsgE787PfJcsXXqHlgpK8 6xL7LfvHX+SVShWez0FUUdaXb s AK5kgECePTgqYc9lIIP1LfPzU fPlJIdkG8PlMISxhlvqiapuoT R1CRKeDIHssL74Gd4ztLxfSMK w mPAQrH8mkklvr9rixxifTqXnJ CWdZEy4PGp0VZPqwRodHoNsPH F8QyS1MMG5bSZuuR3obFzdegl g rA1bD7WoXZNgfmqhWm41nH3aZ eRbZhL1WTxaDtl+VEFOTkVSLC JYN67IKJEyLRbvoBZ+PHRkIHN 0 mGtzGHfwBFLjvK9yZUImI6r8A wSzHtB8GYvjR4PtHFZldkfhGq 08jS7qCaDzTmW8JBonU7TgexX 6 HLPpqQKtSIzpVIW0M61je4Q8Z HIuLDXvUKG5eLQ1bX2mwHjlps ogbGVmdDsgdmVydGljYWwtYWx p B207AVNmuSgoWrJhUqC1NiS8H Vl0W1ZqWgl8AJXpxGixAE6tcK AnGPxuZc3xbMnshGgbSJ4rDXS p zjdlMBNarU9aMOWtlMFunClxZ A1iCJVhqohow110PnPrXAW1LF JguGYiY8GngI4rUfWvWKTyFAP w K4JncNUtQJfxI940IRlkKbP5A LLvahOmG3EeACTikGqnTgM0n4 Z5Wb93HOLXHVAeepmpyBE+PHR k ZCZ2xKlrFCqyXZBewD5vHJZvK 8e6EtLtRvU7UAhyL2FbDOJkms vtTm53xY1gHdTaAnQ9EOvcP6P v qlW1XGWieVJzYAbyZOI4B91zh 4S2CTCmALQqUQM9oBD8yS0gnB lnbjogbGVmdDsgdmVydGljYWw t GLdxO420ZVTbnEynJu3avUW2R 3OpMlv6LDEvfOlwND4jiJMoTE afGm0zrRhilWmiPM9pXLViavl w XULbnG1yRJBlaRXixGvjBU8vT DWvcptnh851OoTwLKJ5AAQofI QgK9NzzH8jQjXhZJVsITNpF1R l jFTuSKaxL959MQboBwA6HBDif tAoU4JyJJFuxOcuDwL9f3Z4Jt 3IhLZvQOXqNX49JZ63VJ95E1H y PjwvdGFibGU+PHRhYmxlIHdpZ DXuGAcrUMRdCrTsbEbuZL3pVo 3aVTWoQHNiyVvwpRBvTrFll3u s MCHrRLbgUY8tbSjoX1MmrKX4X ZXmd8m0Kt80C62fF1LvoJC+PG RydRJ2gUB3iS9dGgSsOaX9AAp p R766SvNscFIdAqwzn1fue6ueu Cg5AfZfQNPauhCprLfrWLY2q6 JvEi46M80nBQbhVNNdFHMaGQR i KUYswOlkap2goX6eFl8+PGNvb EN1sCU6pZ1lXfLmAtP3ANiuE1 70DuOwgPDoNogxK33cP6XxfOW + BCVwQyw5YWUbhUahWN2dcCXiE CbyQv3hMFO9DeJlFnWpQKwlT1 XkHCFtjnqyrkwrnHR8PPMgWIW w xD50Ta9wcQulFx8rLKSaJOE0F CFfpAFwE4JbcJ2uAkFfQOKqJC LeY9DagMJfNPytX463SHsaYcM 7 DPHiuqLuY9WyYOGwtHotGnT1d 1U5Hj9VjUezxCXpUQ3fTgOtMN h8V3AaTlp9EIHqmKwuJH7djFN k GTfgXh8vfWzhjFpcMO5lKXQps ibwr756IlDwe4dwOBNmfAYeAK kpDWU4F57qc3E2GBDqEMRfFOD 7 vYD0rC2knNlqkmnhlRThfAhtb iWdxBbrZWrhXUdsL108ZEFgdI okDkDJRqb9X5IgFwb9OCBmlFz s ZK4nqKWzMFnrBx7vvMeaaIamY Z3lZGHjpdkty555TyFin8kmOJ AoaABoZWjhLKJ6H11it4P8GRR w ZRBbCYA0fUO8uL8fuRslkjets GVmdDsgdmVydGljYWwtYWxpZ2 03GLZhsVljUq8NKap6J7LhOlr 0 UJTynRnxTV8ghAPsZKpeJq5dr EzpaBhhJK0jVTMpwoyhl246Vy Jcw7amGEZcoOVfVYabHVA8L14 s d0Z0XEWyOCHnPWJ9jDG3bC5wj GlnbjogbGVmdDsgdmVydGljYW ckCUnwS103TRUuuRkeHfYkjMW y OjwvdGQ+MA89ai48T3MyAvcdI bj8SSRtFYB8mSP3zC5cAPFeAF gpy6J6fKQ6S2VsdkRfct7vo1b s YXBzZTog (more content not included)... [facility] Nursing Assessment - Woundon 03-06-2023 Nursing Assessment - Wound [id number]#1.00CD:1 27 [facility] Nursing Note - Woundon 03-06 Nursing Note - Wound [id number]#1.00CD:1 27 [facility] Consent for Procedure/Surger yon 03-04-2023 Consent for Procedure/Surgery [id number]#1.00CD:1 27 [facility] Consent for Treatmenton Consent for Treatment [id number]#1.00CD:12 7 [facility] Correspondence - Woundon Correspondence - Wound [id number]#1.00CD:1 27 [facility] Multi-Wound Charton 03-04-20 Multi-Wound Chart [id number]#1.00CD:1 27 [facility] Physician Orderon 03-04-2023 Physician Order [id number]#1.00CD:1 27 [facility] Procedure - Woundon 03-04-20 Procedure - Wound [id number]#1.00CD:1 27 [facility] Progress Note - Woundon Progress Note - Wound [id number]#1.00CD:1 27 [facility] Coding Summary.on 02-27-2023 Coding Summary. CD:216341Jrrb33PWu1i Ww+PG hlYWQ+RT0RFOVyN00nzOTvtO1 nV1QFCZcOMiksZOVWXXsKSkZy qbZvUF3sfOPdSKSr IC8+JK2kUHVwSavqbOXzf9L1g KX8P20erd9mVJrheKJ7ZSBmAt Qjglalz7waaFw3PGquOyyqYvJ t YKVpcH50BCY5yF88Vx00pJRva YOgd6kwcKj7YyUkNGMtHEF3iR tfILoav3YgLDGcG06odNBek7L 6 TNIaqUwdsWLrVqFqxXE7qY5xU Wojurwtd2qlhykpSwk0ph93sO Snq4H9cCI7J4ZzrzX5YUDotNS g QkibjUVZkI5zareov3uqxicbU sEdTIWnXTj2ZNc5MMUdyBegMz HuXT65IJN8AJSrzrLmN0PoPPU s wJdqAkC8o5X0Ow5XZ0JMCvmoX 1VNTUFSWTwvdGQ+JG43lv47Q0 QfJglxFhf2ZOTdUNQ4rDY1mI9 n ZMKnHYrdl4V1jZD0L5CwhsOud m9yr2asTVTaRDevO24doXXpj9 S2KDLysMQ3YBDmjHcsUwCjjB2 3 Oyc+PGSjdKjlq5KlHwmgc5lgi 4gquSg1HtgwKVOdkgGnhTfjEQ G1r1FyOt6lAQEldAV1jPA7jG8 i YfXuEhZ0MFmlY410NhEdgMXlJ fgjX37gD8EagBL+WGOdLrc2DP QglUkjWG7kH8OlIQYfvdpvrDK m vFvvFX9dCONgfkgwXDUrwE1nQ KXvZ0n5VwSeNaB0AWwtD5LrCM JeymsfDq21sR8zNgQwLtP8FJu u K3LryxR8YVIilJZdYZmqEUL9U 02ha4F4IVPjZGKbCLA3dCV5uA 1hbGlnbjogbGVmdDsgdmVydGl j WYnwTWolR044HWRndQwvIgKgE GluZyBEYXRlOiAgMDMvMzAvMj AyMzwvdGQ+VIBzMVM9tMbqDJZ n rJOnUEorYi1xmQslbWsoQH6qT YYyfwhgPAMqvF9tRZSdtSMndL juDE5kXXJbcvryb580SdNbOGN 0 WJJscWAnJ0KtxP3oTtArPQLaF JZuH6YvuFKcBUvwQ921ZNfgGy X6SZEyjpKfH4DbZLPokJsiHyB 0 s9D0Si9Tx9SnvcejV6KkzXXsA hZjFhcqHEp5T5CsIaneoJU+PC 12GEUfXH73GTg0QKI2xMtzUAj i OAWoS3BjjT3zDmLrUSWxBNVyN yc+PHRhYmxlIHdpZHRoPScxMD NnXjWcdPcpNF9uNm1dLTOsAVG v hPgtmMZiKrRab3coENFnZNzkY E3ntBgcZ7QnlCO8IKAwh2x4Dd 28B26oS4ChjSI+OYXzmHY3yHJ 0 iU0hHaSqGqG5MGkfA555OwSiu GPwMqthe2stv4kgbNt3TxE5IQ SnonHkiGorKPR5g3ZuOm77R37 s IHdpZHRoPSIxNSUiIHZhbGlnb u3dmF2lQw3+QKOwtWS5zYN4nE 5uImZzKkQ6GCamI353KuYkcHV v Liuux6ycq6ulsCz8QqIiXKFjz tKafVefIWS0h6QaOb77R3JzgL fpc0SpExz7vg66dYIkc3V5bCA 9 I0PuDDWipafpmFNjjHjkSJ9dV TRiaajhLKObiW6fMQVuG2h9Sm KcMvX3QCiiC3QoucS0MJLcsNS g LRTkhONEkP9yfbffe1ozawevQ sZbSFFsQCs0KQd6LKNzxObbRu WcQFK1WbX7SFJ9bUEwkZ2qmFe n atjpaI2tKtg+PED6aAMkvCUPU N5nBjqmdUI+RPIrNAX7gCagME zxDXHdfF7qWCSeG9r1JkXsIoI 1 GHxfH8NjirK0GKNmmSDcGEQdb UXQgS7eddrql4eewyflElFlKQ ZvTTs8FNg0CEQrbBiiCaCeWCF 0 QjO2KRO4pPEknD8rkWhqfjkbf G9wOyc+FlunoUyuXIU1OZn5G0 WmNhk3ANJzlSggQT4saTWqNVs u Bq6yxGspcGcqXX4zDOCywovbr 573GhPvl9asSAWabPVxBIukNV I8Z02jl7X8YVIbQUNaPHY3rCY 4 dG6uaYajucypaBNygZsqxhYef BszTGemRXrlU198GLAfkXxiCp EmIUg1D8XgTev1KEYdbDyhFL2 n fJZxMMhoVe6qzKgtyZngWY7oB IFmwykim346YuYyt7ztGBFovW JbAXkjRDG9E49ek0L9AFEmLJH w CYU8kVS9fD0qyHcystefoKUtu TtgakEagMxtLXxmQZgvZ100OJ NzaKsaGpFvfQo8A1ZaJlf0MCY z sAkhEE4ezACcJQkvQf2snHzai FbzRW0hVYHigcehw204HmPgb3 cnCPHlbYImDVguNBF2V41rz7P 6 YHCjPZRwIBM2uCN5dA8xdJzyn jogbGVmdDsgdmVydGljYWwtYW cnA351ZAXzsJcdVzGsgBzuhtV g TBxgUXc1H8ZjZjgpfZV+PC90Y IWmNF38tESuyEAly8ezlBy4Bk NrBDPiXFZ3yPnnIJoqi9FcWSO t Z58ocCGlz6Q8FNRtwWnilSAsS sUpiSK5nC2eKBciobyte2vsys vhTmyrp0jcus20aS60M21mTGz p PJYaYUNdFMUcBDXtuPirlx8mu G9wIi8+HBBjeKL4hBL5oG8vWC KmLnH2OYmoE681MtBmeSReCrk j j7oiw9qzqIg2XlZ0FSUrnyUco IqyIFJ2a1FlBh67F59aSQmmRR RqCJSbAAVbRUHfoCtzqw1zsY8 w Ii8+KKGwlSL5eVQ7bT8uZdIjS tU8XSrkI522BoUojPDwQpviH9 5fX3OucXM+DWRqRnm1NRDscBi s IV7pmXRuRFrtRh6uVMQ3OcOgK cSrHSpgC9JoKMZmjfmjtbgyeJ A8BBCqVVDfoJ59Vh5wiSrqSYL w kQGGfE0pyipxt9flphbnFuQjX MOkUAr4HIn5AYJwhUilSrQvLC O3SoF0TKH4jXHttS0chTpqlqk g eF2uW0XmHHRjmryfAe84cB3lG pUgGlU5DUazSje+VEFOTkVSLC TNK92MKFYiGGeolAS+PHRkIHN 0 tLtsUZbxSWBvhM0qKXGwK9m5Y pOrAuR7JOwbW3TjXNJhwoegJr 95rY7lZhFyHiE5GZobA5LzqsL 6 LITbcOKiNOlvMYQ6O22lr7K2T GKdYYOrHTN8kYT3yG0cnNkqiv ogbGVmdDsgdmVydGljYWwtYWx p P095XEZayVofJsEtIyV3VrN5B Mc1I2MtKdp2BWRcsCoqCS4zwL JjTAhgKo9jwElifMfvFN4rCQT p ocwfHJRinG7bPHBobLUmhFuhZ H6lUZQfzpbha636JmHpIRW2WI ZtxFHeE3MjmK4qXyMxYIIgACB w B9JqbSRdBVtlX772SEgqJmM3V BUyomMmM6IhGZCiiZskBnW3t0 Z8Ot70GLIVOLXhpbafaUG+PHR k FCS1yAsvFMspBDYcnI0bPUYiE 1m9UvDwSbY1OXyeS9KkKBLyzo mmAj34eS6nQdSmQbP2VWsvL6U v xjY7SOYzfAMyXZzeOML4B52cc 0Y7WOViCUZiGNN3aKE6rF6oiV lnbjogbGVmdDsgdmVydGljYWw t APzzD608HZJwpYsxMv4mcCN8Q 5RzElm2UOBicYtfFJ4qvPKfGL nxNb0ntIixqGkwFL8fRLJcrjn w PCVtfO7fXPJpgWOsgBvoAJ7bQ ZFcybrzo058MwBvJGB7WGUqgF LxV4UukT3dXxQkWVOnZDBpQ5R l fCHqLXcnL400JUmwPtC0XPBhe mVuD6BhSUQaeRibBzW4i2J2Pb 4KsDYwANOpES53TG65BE92M5A y PjwvdGFibGU+PHRhYmxlIHdpZ YPhUVhpQWQvZhIoeRzzLD8sBa 8gHDHoKHHonIxtqDXhRfYcd4i s KXIoILpqQS8wnEmqO5LrfKK4Y BYxr2r0Nt35Q98oH0WihMJ+PG ZwpKT2qDT7hQ4xQySaFrI6VEj p N783AdSogXGmWssvl8hfg8ytb Dd0RtWuUGRvxzZkdQlvEEO6z8 TmSi63Z19xVWubZDUtZJDkMVA i ORDsmHzurb8udC9gZz0+PGNvb LU8zBX0vV5oGkYxNpA7HIrgP2 73YfVriRKtFkeoO92mI0KipUM + TRGcHnb3ATGpyOpuPR5eyHXfH SqlZa8bTPD3QtLySiFrWDjxL8 PfKGBzuvdgtyofkDE7TWUhLKT w jL60Te4ibIvoDr8vAQJfEFL0W ALrvMDmR9MadG7tZnBsCKXeIG JtG2WohMKmWGasB021RGphEfJ 7 TYTckmJjC4CzZNUpbGjuQgZ9s 3O4Ep8KrPzarHKtCT4xUpGlRM q5K9CmMre5MJTadWphTY1ahFK k IZpzNg3gpJstwGjgSN9dTFQfa qprd849OqZwq4nrMDFjtDLtIF [id number] 7 yGK8mO5tsPwpisyfpIDvjJxif kLtoPrkWCvnXJywD076NMUgiA fpPgLLVbu3T2YlCxk9VQUreEz s DF6uiTLkWNylZt0azVuulQxnV K7sAGTfaigmg028QvEst3exRC MmyGJpBHumRSD1E78us8D1GLT w QXRlJZN6qCW8zH7elQaeawria GVmdDsgdmVydGljYWwtYWxpZ2 89JQQkpEmuGd5TNeh2W2CpZbo 0 TVOsaHltUN1onGKjMTqaIc3pm ChmlGaeAS2nPLVevkiml628Ce Rje8szLTWwePNqTPksYGJ9T81 s p6W9OZVrRUQdXIA5ySQ4zC0ki GlnbjogbGVmdDsgdmVydGljYW vfZQjsQ258IBKtaOafZsXbqTA y OjwvdGQ+IZ18ya49H1MdVrwrT sn4WJWuGZW6wIB9rH5oCOLtBO uoo6L4fGF2T9WmneEwxl5up4q s YXBzZTog (more content not included)... Normal [facility] Coding Summary. CD:[id number] Ww+PG hlYWQ+JC4BGDWcU92sqPRnqP7 qA5PSDZcCOfmyOLPHACmFWaOt rjJpMD0vtHSyMCBk IC8+VT0sLHVeRxaifFDxa3N3t QJ1Z27vue2uTGxpaXL5KYSbCu Elvhbhu8dyaEd0JUpiPehgGvM t XHSezI52GBW6lV60Qk16bSKdk XDbx6djkNu9KrUiPGRiXVC9iV vyIOydh9BwOENeS00ezUPlp1V 6 QNPvlOjubHIzUdGrqSL6bU3nN Icdstpbe6btvjjbUbz6fr16oP Trz2I5wCH5C0BknxF2AAEguWB g VzwvoRLHhO3vtgvus1vvpjquU uYgJHCrRKb6QNf6FYMtdGizCy PnFV16MNR1IVZdnbZlA6LxAJD s bZxoJnU3o3T0Pp0NW8GHRwvaV 1VNTUFSWTwvdGQ+RE47me83F9 UyHnhdXfl0UQDnJFP0pRE7uZ4 n AIGpSBenx2S6sON1H5JkivIdz a1vd5oeJEFsVOjkI02ctBDfy3 Q2AGYvmOE7SCAcuCtvVyTaxI1 3 Oyc+CGSxwUuph0RvKolql8rnl 6anzNo1NfhqVUWzolMzwVdnUN E3x8LlIz3uKKJuiIZ8fIT7xM5 i TmZcPbU6XXboQ710UlRfyYEtN wbsN45bI4IqaHF+YMEjYef5ZT NvpLmkRU5sD3SvZNZufovqmPF m tGjmJQ4xXAHgjcilLIIodH6xI YQtL9c4QrAoPlB0TRrqY3DhIV SsczhjBy74wO4aKfYjIfX1AYk u P5SukjY9JJJwlVYgZKgnSZY5M 51ef2M4HVQpOLCsNPM3qMQ3bH 1hbGlnbjogbGVmdDsgdmVydGl j NEfbXYotN439PUAcrLpmQlHrB GluZyBEYXRlOiAgMDMvMzAvMj AyMzwvdGQ+UJRjSEA1rWsdCCF n eDWdWPrpRk2isCqxkBybMA9tD FNxmdgpJFGixI9aUMWbfEEuaL piXC7tATGebvlof319QkWbRCG 0 XKFcdTUkH9MdpK9eRqQbICLnY HXqU0CfvVBxFOqeL942CTgdSh P2TXYgimHuI0LnFBHttTznQjE 0 a3L4Zp6Ok4YbiexeF2VtiZKfF lZlFmpdNEr2R0MsQdddeQL+PC 87GKVtFU07FSl0JLT1cTcaNQp i WDZmD9DxiR0vKcBoMNHpFBEnT yc+PHRhYmxlIHdpZHRoPScxMD DgCySraVauPT6bCy3aOIKtIGQ v jRtddAKaTyHql0huOXTsRFydC F9hcKakS3InlFF5JVQar7y8Pi 50S24xP0OzdVX+VPPvmLE0lBB 0 hS6mFcDiFkL6VXbtN491XbBws MOoXydsb4xlq0oroWf3FyX7ZX DntaNwqSjgBMT5o6UtBh55T67 s IHdpZHRoPSIxNSUiIHZhbGlnb u2ooU2mFd3+OJZqaPU4eUK7gO 4cZtQtUnE8ZExeV804PkVhfGH v Fsdwo4iix2ozpLa0QtWaGLTlp bVifSagCFV9s7VkAe99D9RhaF qfv6OlAog5av93iTFax4J5cFE 9 J4MkCMLxjtwabQQtwTjwSH7zB SFgquvlBRTfwI0aHPAbE7x3Ra CsSyQ3DGabL4DkhyK1SOFjlDB g AKDeuSVLrE6xxpsqq7aifqhrQ hLgHIPxBKb4SXe7OBAweQxsPy SfXWL7QiD6DIW9cCArtE2nzOr n snnzwE0fJgb+PNI8aIZnqJLZP V6bYsqrfFS+DHTgPZI3oRgkGK ekOCUxsV6zWVFvB7k5LcRbXxR 1 IVuhL7LkeaV9GHKzyKNgVMPee YUWgO6ydsxbq2cnqqmvMpIgPQ XzQMx2SPb9JMIfdWvpUtImKAA 0 XrK1ULZ7qMEahB8qxIoccwvje G9wOyc+ZzdarFhfCTN5BHk6L3 OeGow6JFCzyBlcIG4fjJGhPTy u Qs3rgFhsvUsjGD6sUBInauawy 106IkMtx3dmBJBecNCmULzkXE H5A58qd5M5CXZpCAPrBVN9wVY 4 jZ2cgUxkgilaaWJaaMyojrZow FcuPGjpJVzlR706MGSjmLvgAl JiKBq1R3GjIhq9BDHwjGusJY6 n iKJoDDsiJi1vuWxzpZrmAL5lJ KCazfjzm031ReGns6tlISQdnY MwFGnuVGV7Y23sn5G4KZYxEMI w AFJ7vZR8eI2jlOhvptgnaXCiv RstvwMxnRsuEVnoURpzF956YU BsgHqiNaXqaHr4H3XzVzm3SCN z nGexZT1xbKWwCNgdMf6bjGabp QjdOA5oGHWfihhdo923IrXob1 rmCQQfuVTrTVdnHKJ2M57ok3P 6 EUHyUYPaVJA7xSR0xL6ljJckw jogbGVmdDsgdmVydGljYWwtYW dhL932OTBgnXjsAqNeqOsvceI g WDloOSb2C0EhXwuxmRF+PC90Y BCbUE15eIEwhJSwv1xdkPo3Zf RhGIDfIEH7xGjgBRglm2AqGRP t D80mpKXvk8H7HLChyPcxtUUvG rHneTX0sU8uFUbgljwot8xpjj ytRyetv8bxhf64eJ17X86nHEf p ZTYeMAPyOYHzFECmjRkdsh9jm G9wIi8+ZXOsbJA9kEJ5kX2xEQ LeHaE2YTqjJ286UuNwqDMlWvu j m2tax5bpwLe4HvL3TSWzysGhk TwfUPG1p6AeFu07Q49hOLudSY JmHYQdJTWoMCQeyZmtgs0lcU4 w Ii8+VHShrAQ7pKB8zL5vWlKqH vK2BMpoM538PpMqhKGnVnjgJ3 1bZ6MvmPM+APTsKji2CLVrvMf s UA1vmMWgEXrhBc5gYXX1OoFaY jKzVXfuE0BmSWMbsjymoijbgK X8JSNbBLCneP32Rq4msPzoKGO w sKBGrO1fofhno6khfxkpJwPxU FDlJJb8ZXq7WUBxjGckQvPhFG V5WtM4MEL5eNOreF2yfQdjnnz g xV5tF4DmXVVqwdnmCd65nB0iN wZgTqZ8AEcrSjw+VEFOTkVSLC CKW42CZRUvQWmpsJU+PHRkIHN 0 mJucHSgoYCBcnG6rBCWxR6x5F eAgSmB3BJyfW4JlTYIiakwwLp 14gV6nZwQoBoC7PWhbH9WehlT 6 HZRlwVIgPUfrWGU3Y41xu8T1T JCnLPJlYFV9uFN6oS8rqSojtw ogbGVmdDsgdmVydGljYWwtYWx p R315UFFtqVwtXyMaFdM6OdU6O Lq2N9OqHcf2ANCpzDshME9ecU OdQEmpUw6kkCsjyZquWX2gEVE p vnpoKFPkaI0sWKIugAHjyAdgW M6aYJZiapokq122UkFbVPJ3RI RxgVJmW9JjgA0oMdCqSMVzMXQ w D1DdbGCgJXsvY394IOmzVfV5R TIheeKpE2WzHFBxkPkuPgZ4p6 C0Uh99SASAXZJdlscsgMU+PHR k YHP8zYkuQEzpWDEhmU7mFRUtD 0f0SjTfTmD7DXbmS2GgOIAupl vqLd35jB7vKkOtOnG4SPbcW9U v faE9VYFwlXKySCjuXSC7C79pv 6X7QQXwHMNhCCP4fPN2kA4gpQ lnbjogbGVmdDsgdmVydGljYWw t XVujS797XHWzcKvnOk6htFN4L 3PtVhy2UTQofChoDX1sqFAeBX jgSj3cgDwooQelGO8wTOBydfg w VCGmsI8vNYPjjXXmeUakYA2rQ FMvpldhv327BbFxALN8ADKqsG UpY1MqyH2xDeJhLCOxYAMkQ3G l hQTkHUabB062CSdrKbM0MQPzd yIqO7IaDCTzmRrkWgS8m5X6Rn 9EsLRgZHEgLD55VY45LU97D9Q y PjwvdGFibGU+PHRhYmxlIHdpZ JIrOPjoENJoTuXjvFswUF1uRh 9wHSUaKHIfxPekrQRyVdPhq9c s LWXvTIcvFI9kfQmgT5PomWU1M SQsm1n5Zy15E62hI6JhzFO+PG UpnLC2bIG9bU5bMsGtEhS9WBg p R200KeUkbEIpWkapq0qov3ojs Ke9XdOsSCYzmuZqoYmuUKU7z6 CaIg53T08mMYnlBLVgFXMwSEF i KLZxpEscvd9bqI4lWt0+PGNvb ZZ3zDJ9aD9oDfDfMzS3HCfiD7 37ZdPmvYBqOhswY28gM3BgaLX + TQOoTus5NUVqeFqdNK3dpFKeX TsnRi5jSJY5TxKkAkXuVUbrX3 JnJZXblvbbjhrnzWP2FJNaAZJ w tQ43Ry7shGajVa9yHPOkUWN0Q XIoqRAtY3LwtG3uAtRuDNZqIS HuD5PyyVHgKEzpJ194TGahMkB 7 STZzkvEzO1YkTBEbaGdeRqQ9b 7V7Mm5YuWubgQOrFD6hJbPzBH f3U0EdDey1DTBwhNdjNF6qpPJ k KKjtFr4vcZmtrHprFI4uIBJvb ipcf945MlMsq5cmMABslSKwTD bhKIR2J72jc1J8LIDeRXSgZXQ 7 uGT9xT6vvIcozonikCCduAvoz qKrbQuuJIzbLFnoD464CNLabR qnIbTAOrb6Y2WeGkj3RGBpuWx s MA9jnIWtYMpsIv7khWnswOofB N6sAGLsxmfri640FrWbx8skKV ZthNPgVYlxPXU9R93db8Q2WNK w PVYvQSE8hUH2zO6fbLlfbadqy GVmdDsgdmVydGljYWwtYWxpZ2 82SWPvqKrfMn1RDkc6K7HzSlf 0 QLQstMyoVB3zwYMnZRwzJs9ec GlxkZeoQS0mGHJqwkjcq807Dd Hwy2coDIGwrXEmCUiuNPF3Y17 s d6O9ZAKtCGFzBIK2mYM0uX1lp GlnbjogbGVmdDsgdmVydGljYW jkEXfaV467OHLvtGenXoWkzNS y OjwvdGQ+QN94wj35D0ZmJamnN fv9ZNQuYWQ4bKW5jJ4kGGDzZH krv9Q9yHJ0Y6MyamBwib8ss6v s YXBzZTog (more content not included)... Normal [facility] US venous duplex LE Velvet US venous duplex LE [address] [address] Ultrasound Report Signed Patient: Yousif Aguilar MR#: [id number] 875 : 1945 Acct:[id number] Age/Sex: 77 / M ADM Date: 02/27/23 Loc: Room: Type: [facility] Attending Dr: Perlita Reno [employer] Ordering Provider: Perlita Reno APRN Date of [...] Lonnie Vasquez MD02/27/2023 4:25 PM Dictation Location: [place] [address] Tech: Maureen Denis Transcribed By: TONE 02/27/23 1625 Dictated By: Lonnie Vasquez MD 02/27/231623 Signed By: 02/27/23 162 [facility] Coding Summary.on 02-26-2023 Coding Summary. CD:[id number] Ww+PG hlYWQ+IJ8PQJPbM98scKUedZ3 rL4BHLKfZGwvkPJTJZUxGFxLe ucWkRR3llRGhYXZe IC8+HW2qCNTyTirjuURgf2D2n WG5O69bnt8fKFaxzJN6EVPgMv Jpqzbre9keuIk7VQxkFbpyVfQ t PFTkxU61IJT9sE50Gw03wBYnd JSyj0hogRz6OyVjVWUuQXZ6xV yjRDozl1JvTJVaA95kmIHih0U 6 GWDchCgmlDMbWpOmiDB6mI1eJ Yukulcyv8kcddreUjc0tn32vX Bpz3R3pGD4M9RkfcX5LSTyzBI g QzpmhZGRkW7sddufr8ijcrseO lFtPTOzUTa7LXn4INSxwYssMq BsSQ11ATH9FGYwslKcP2WeGDK s kMlsNaM0m5U7Ys1VR2OVBedsS 1VNTUFSWTwvdGQ+DC95ch43B1 FvHtofVoa7BFBzSRA0jIG8lC1 n QPXuQAmus4Q3gYU2Q0CsskWmr q5hx9cxVTOoZRkpZ18isDUac6 O7UFRreVU1MDCxfJknOwVclP6 3 Oyc+DHWbpIvkx3KhCjbky6sck 9yvnIm2NbzrOVFczuYpzEnoNB Y6v3JhAk6qGEIfjGF0cEI9eU7 i RkJyBdQ9NNvpS300NyHxvHEpZ fpxO20sS6MqqFM+MQCzJbl6MM JnwGifII9eQ2TrTHRavcxjxUJ m bWqwGN7hCWYsjvwwIMXbpQ9hM OFdM4h1WyNyQlA2SPhpF6PyMO GtgpotXq05vY3nPwWdRuD2SZy u S9HujtM7PIOamEXsGMbkNCM4P 62bu7H3OLKaBOHnXIF1lYZ4qJ 1hbGlnbjogbGVmdDsgdmVydGl j GXawDFvyF111JHOwfAzuUwPfF GluZyBEYXRlOiAgMDMvMjkvMj AyMzwvdGQ+LWTnTLW7yYxzIWE n dUSxPCnwKy8onWwjoSbuAJ9yZ PNkbbssNYNgbQ5hETTvbOJhsJ daHN6mJMCqjomod596FcKaQLD 0 ATZqtGUaI7WayI0wGvZpPVCsH HWvN4FdjWBfSIghM077YYgfPs S6DUUyksWuV3NiBXWvgXzhQeC 0 e5Q1If6Lt0ZrftggM2GbwDRhK yHoTubkMKo0T5GmPtyuoHU+PC 45IHJpKW40OWk4JWA2bAdrLJc i IIJaA4RedY5pPfPdPEObKJBmJ yc+PHRhYmxlIHdpZHRoPScxMD BuQzRtlYeaFQ6cTt5sNCVcVPZ v oLtzgXGlFcUvl0umPRWmXHwkA Q2ajVbhT6LgfWY2EFRvn1j2Gy 57R67rI1OvwSJ+QRCzcMD0yFP 0 kR4lToGsGeJ8TTgtC139MnEkd WHuHipbl8lhx2hgmPl4LaC2DB FlmuYqxUzkJFL2x5PnBq15Y60 s IHdpZHRoPSIxNSUiIHZhbGlnb o7keQ4kYp3+VUUpfEW5yCB1hD 1hQeGwYcU7RZvkX988NcFyzBZ v Tpgwm6wsk1lcfOo1NdAuIBMos wJstLadMMC7u5NnAt91F3SnzI pfq8XhKhy5es61qERig6L2kPO 9 J3ZyXHRunujxqLFvmWprIM1fN EGrcoziPCQwqB9bVHJcY7d4Ce MyAoL3KKjfJ1YgcjH1CZRizXX g KQMydDYXaL4nflhmi8gidpskT oEfPDTuTYj0BDl0QRUhfVyuZs CfCFL6PnJ4RJM2dGVqnH7ixJp n vkpeaZ2oEkz+YOA2hEXryGVRZ X6lWmnilSU+CWIdWGJ5nIevUI ptAUZehK0oVGUvW5r6EuUaDhP 1 PPdwK8VatyX6NIGmqEAsZBLvo YFGhE8pqrwgu2fvfvrnRgVlPF SoIAf7NDa4BCLcnIqbQnHnVHJ 0 RpP3AQU6tCErgX2fnFnfksqke G9wOyc+CqzfjKawOAE5OBn3A5 DxXbj7AVHweVpqFT6mvIFuYEv u Sp0ixUmudWqkOU4dSUJvuhuwj 755MrSze4pzUOPvmHSwETpkUI D3D81nh8W3QDAwLNQlMNI6rTF 4 yW3vgMqvwougcNNqxPpmzyQgb XrtUMakZRikP366BJNdkSzkDg VtBUu8O3UnOke5UWUjlOrnYE3 n hPXsENojMd5pbBvxeFxoIW5kV CVzjwsdo001UfSou1mgZSLsiX WiRAutDAP4D94xi0M8KNNxJTQ w TKQ3mQU0zI2wmDtaifuxsWCmi CqldrMbgDngVAbqNMfiV227PQ CipIboUfEolQl1Z8UdVpr2ANO z bNliRV5hjOZuUUxtAr6khMwjx AheAJ9mFPIiwuhlw979FnYlq7 jaYPZebTOxERhgCPS1G53vd1J 6 AZScUZHiHLS7qFR4wK0lwXewu jogbGVmdDsgdmVydGljYWwtYW zsC367URPjnWydMbZgcWyihkY g RQfkNBy2S8FeYnrewXF+PC90Y UBrIS84jEGqlNNxf0okhAs0Ag CzYSKbXKE7pYawGSzcx8ZrJSZ t F55qzHKub2W3FNGpwBsknJRmS kLnmKX7uH7jCZpgwvpgb0qrjs ogHrisl0cyti42sF75Q44pORd p DJKsXQNzJGEoFCKvtBywno6wn G9wIi8+YEPyoQQ3qIJ1eY7nZG IsPxV3HWpiQ648HjPqfNErMzz j e0csu8uylOq3PwF5IVFolpNhn JsaQFQ6z1YsBj52K62sETesFC ObXOBoDUHyPUBzlGpnbf3baD5 w Ii8+NPKywQY1gYJ7kB8qUpHrV zJ8KZnbS149UpNexSWdThwtK6 3lA6ZulMT+RNVpYrl1JTJymJt s XU1xnMSiCPbxXi0yUEL5KhFdH bUwLZuiD1RoIPPaunyyeqvkgK M5GPDgLUNtbI19Qx7saSypCWQ w nVUMzM7hnpnxg5woprymDhEyJ FJbLPw5XDk6HEChoEezVlLxYW A3EiI3GFO7vCMnyT6daDxcbzr g bL4lY7DmLGYrpliySz50jL1zJ nNfJlF3JQroNuc+VEFOTkVSLC OVB60BGKVdKPefmLD+PHRkIHN 0 wOzcUWfoWJQmoP4cNLEfV1d0M zQxAuH6NRrzL2XmNSKlcinaTb 77aX0pZdYxLxE1TFxaR7AftpA 6 DIVvfMLyOIliULQ1A63ab4T7X MQlVZFvCDK7kCY9tX8ifGdtzy ogbGVmdDsgdmVydGljYWwtYWx p G199SWJmaMyfWzQlMaX2NnL0S Qo6E5IeSpe3ADXhqGfgKI3qoW KbENghKc0uhXlerNclDY5xCLD p xytcIYIzfC4fUYQisKIbnLpmO E3nXGQfpcfsh082SoHfFKZ8VT UkqZCjQ0EfbK9tHxVxJXLlTBD w B5PfxVSbXOmgI973JJsqKoD3Y ZUmfbPgA6GmJZHpxTazXhP6s5 O3Vh96IIKBGVHztajntEG+PHR k LQT6yOmzOFeyESGrvQ9gNMEdS 4z3GeNvIeC4XZuoY0ItIHTjxa bfBa31iA4eMgYxQvI4XLteQ8N v qfO6RPFrwCMbMVkxCSI5C33qk 8U1KWFvGXScZTV2hHK2oW6ebG lnbjogbGVmdDsgdmVydGljYWw t PZxcW493XBCbeMlaTx7bkBJ8J 1GtLtb9ELOrxDztIY0zpTPgJC nnBt8sgIxdbVqkAN2rYESpywb w WEEewZ5qGRDmwMBllSiiFH1aX OJndtnwj846RkIjKGR2ERVaqA BlI5IekL0uJcCnWGPjOWEaI7H l aQLrMDtwO270PYxgTgU2IIYbj iOiZ1IgQJXdqRlvOtR0h3S5Gq 3FuWKyQKWaJM11HO30LI41V6P y PjwvdGFibGU+PHRhYmxlIHdpZ YFwMAgdZIThXaSxeUxoHE7lTs 9pWGQiBJQiwUstcCCiQgFgc1r s RUQkMNczYH0zhVtwV5RnxFM5S RNsb6y0Xj05D21cV2UrzZV+PG UlwFH1gMU9eU0lCgBqOuZ8CDt p S411UvUrgADwDmlmz6plh7qzh Ec7TdIwMIIffaNhoTvhDDZ8a8 TrIi30B02sPVnsBCVmDDDvAPP i NJZjmNqmle6elW8uWb1+PGNvb OR1oLV3uO0vCwVxDlR4RFoqN5 50YdBtdABzIcchG58qU5RtrIV + FFJiCtg9EADjqWavPX9utJTuQ VjkUv1fYXT1AfPhZfUeRGqkN5 MoBQBawexreindfXW5GCYwDQQ w lD13Tq1uwHbdNi9zVUCnZTN4X FLzfEHfO0FpbA3cUiFzJNZbGP AfQ6NjjZRfMRheR064IZqbBsQ 7 CSGgdeMtV0GoVSOixYkfJlG9d 6N2Iq3CmBcsrBUgVV1sIqTeDZ y2Z6AxEug6OMEkkRurZX5ovNZ k WQzfRt3nrItceLvkHK8vHKNmw iulp686XbOxu2nwSGDmuEZbGC ocYUG5W14jd6V0ZEHpLNMfFZT 7 jFK1wV5epQwuekvnqMXmgTocm hIrhXreCXvjTZqiW760CVUrxO qaGuIAXvu0U6UtHkb8TUArsQp s XA3enDEvAFvcQe5imVfjpDgqN Q3vIHKhsslps259DcRnx7jdAX VgwBNdFJysTIP6B94fy3Z6KUM w MGIdWFO5kGI4zK7ysQnlpswtf GVmdDsgdmVydGljYWwtYWxpZ2 78BCYmyGbvGp8HZtx6E3AoSiv 0 BZBbvOewSZ6ezJEaNTcbCv5uo SgvnDabEI4eXRIoybopt272Jx Era5imMXGnkRIjYKpkCOO7H39 s d4G2PTXjUHRbSQL4fBT1oD1cv GlnbjogbGVmdDsgdmVydGljYW evPYlbY328LHPtyDdmRaOpeYN y OjwvdGQ+TX24zy88Q6AmBpyiA ks8MKIjNII7fKR6gU5iLMTdHC iin2R9nOU6P2LkqzGcln4wl6w s YXBzZTog (more content not included)... Normal [facility] Multi-Wound Charton 02-27-20 Multi-Wound Chart [id number]#1.00CD:1 27 Normal [facility] Nursing Note - Woundon 02-26 Nursing Note - Wound [id number]#1.00CD:1 27 [facility] Physician Orderon 02-26-2023 Physician Order [id number]#1.00CD:1 27 [facility] Procedure - Woundon 02-27-20 Procedure - Wound [id number]#1.00CD:1 27 [facility] Consent for Treatmenton 01-30 Consent for Treatment [id number]#1.00CD:12 7 [facility] Correspondence - Woundon Correspondence - Wound [id number]#1.00CD:1 27 [facility] Consent for Treatmenton 01-30 Consent for Treatment [id number]#1.00CD:12 7 [facility] Multi-Wound Charton 02-19-20 Multi-Wound Chart [id number]#1.00CD:1 27 [facility] Nursing Assessment - Woundon 02-18-2023 Nursing Assessment - Wound [id number]#1.00CD:1 27 [facility] Nursing Note - Woundon 02-18 Nursing Note - Wound [id number]#1.00CD:12 7 [facility] Physician Orderon 02-18-2023 Physician Order [id number]#1.00CD:12 7 [facility] Procedure - Woundon 02-19-20 Procedure - Wound [id number]#1.00CD:12 7 [facility] Progress Note - Woundon 03- Progress Note - Wound [id number]#1.00CD:12 7 [facility] Coding Summary.on 02-17-2023 Coding Summary. CD:085389LH:[id number] Gh0bW w+PGhlYWQ+DD6OONRwL09icHR iyE8jK1YVCOdNMkbmEFSILKtB IhUxrsLpHC8exKGxFHIb IC8+YL4xYIQnQoihzCXrd4E4l UV6U80qdl3jYYzhiXG2WDGaSl Xismmaf9dupCb8DVesFafeNbG t SQIeyE56ZQC0aT48Bc90mNCun ZWws9ygkAv3XfKwYERlFHP5xV lbIVgqp6AeJJJoB05wgLRbe6Y 6 SQRbtMmvpIEjFgOqgZQ8eA0aL Jntfwokt6xiltydTvy0ol14aY Tkl9Q1eHH3J8FzmuN8LCPbpZK g LcriwOQEoD2tnejpc0lluosuR gWkKOPoNYx0FPy5HEDahSbkCt AsAI66OXZ0XVZbybCtS0OsQAG s vIthMbB9a7C7Hx1US1YBYvrkB 1VNTUFSWTwvdGQ+RK15fy98F4 JzJpqkAkf5OPIpHCO8cSA7dL7 n WHHaFCpgz2M2eDQ0G7QwkgGct i6in3qdQKCqHYwwO72giEHbx5 M1VUMydNO1FNTwiPcpYtLxaW2 3 Oyc+VDVyqAygs9CzTifkn1zgc 1atqIg5LfhvQNSyeoWenNdiDL B1x6QgBk3uQBLvpSR5lGG3pY7 i FzFlVgF3MEgeF771TrXhfMQlH qclT26pC3WusPT+APCpKal7XQ BerWjeYV9zR6QmVCLwamredPG m mWwoSH8dGAVehxpkMBKbwB9sF RPqL9h2DdQkWbH9UTukB3GnLY OrxylxGx96dW1ePmCfVuO2CEt u Z2LfoyU2FTSbzBZvNJrmCIM4Y 63ev9L0GJYiOJRnMFC5hKS1dP 1hbGlnbjogbGVmdDsgdmVydGl j YNhjQWuaX054UZDqqSkgQtMzB GluZyBEYXRlOiAgMDMvMjAvMj AyMzwvdGQ+RAZsMWK7aJggCLB n kGZdQAlhEv4reMinqXbgLV6wN DMqydhqHOKjvK0rSTPwgWGtkE txSL1uJHOqoyggo752HtWmKEU 0 XLZvfSNuB8BrcT0pDrWfVAUpI WXkX3XilPZvHEvxW961PJwjQv Q5SXLjhfUeX3QvPDSrqShsTeY 0 q8S3Ej5Rr3JohwmaM5LqsECnY kXoAnhfJHb7I6JdNhgspPE+PC 48FGExKE54FHn9ZNO9zSwqQNt i RRBaT5XfeK4tDxXnVQQdIRZzH yc+PHRhYmxlIHdpZHRoPScxMD OpOzPqxWdbCP1bOn9kMDJlPXQ v mImjlCOoIsCqr8zqANXjTYcnT A6qbHbmN4QnhVQ8DWCck9t1Wr 78M75yE5JjbBB+NFVcoVD8fXJ 0 uL0sTuDvGqC6WMjmS734BfCqe QTdIogbu2svj4nnjHt2CwT6QH TrcwGenKjpTHK8t0PhJk44L00 s IHdpZHRoPSIxNSUiIHZhbGlnb l4yrL7hPy0+HEYgfYR6iZT5rS 6iPmIiHbY6BZmyC753AmHzbVF v Najgy6cvb2fgjOs3KaCeJMYvz sAgiMviNWM7r4HjGz58P6KicI rlf7HjDbg4am53yUPnj2B9eIF 9 T2RhPZWauamciFQdzGlkWE4bU CUlyavgFXVvtS0vNBFmP7o6Cd TwEeK5BGaxO7GzebJ0SOYiaDS g KVXwiJLXpQ8yaloke7ttfgekR kQtQRLhHYv5CXc6RKHxyYnfFp XtIYF8HoN0VKL7uTXasS7lqCk n mkyugN5jJih+QPL2wSPwgJYCZ F3zAmkkhRT+EHAzMJE9yQwhTI owGTBjvO9sJLJnV1n5MtAzBxY 1 CZddI9GzseA5AQOdeMBjSJGdz TTXyL4dmqclw6twqaqxRkUjOW FoSHg0FBy7BQGulBzdJzIhWBB 0 RpU9XND6mXOvoN9jqSaubwcmm G9wOyc+CtkioVajTSJ4LYk0O8 BwNxh4QDXhkFslCP7ylFEtXBz u Ca7vgAkvkLkzLH7nZJTcdpetd 232TwWzb8rnJRYzpGAsEVyrEH O9B32gs9A1ZJEiTRLhXJT1yBQ 4 vM9siPdcgjcwrMBmaIqmraUft BaiVSmnFEslF927IMMjeAieAp DjGFs6T8XcFwy7PNAzrJtuAM5 n vZIiRJffSk5yuGknwQxuQT8uG CZtwqqau777VdJpo1vyTHTmlD TdNQhiCIY3D00qz6N8IZJvJHZ w EXB4fLZ1tU8gbIoxulbjsWUgi MtuvgFmsSmxTBsoKHdbA252YZ FtaHxuJxUnaSh8G5KkYbr5DZU z dWerAL9sdEZmJHhfSe7uwLkyb TgfFE8wTDZfhqzac668ClOhq1 wmZMRyjUFsTDlpKYS0B17fe2A 6 GHJyQXXoNWG1hJE4cG9uyCwrl jogbGVmdDsgdmVydGljYWwtYW viN407JETapJfzRoJgfWwqauB g AIzfVZt8U5PmSljzqHH+PC90Y EUwOV35nVPngAIab2denQm0Gv NgJDGhMZJ1zHbsBPbwo0ImRAS t N70kfANnn4M4HTLykGjrsFLnB lYrhHR7aM5iSAvkpybuw6onfc mmEbkfz2rlsp82zA03M83wYHm p HJHzUAZvNEEgYOKphKyadx4vx G9wIi8+LPRmfON7cHK0wH5xEA KmEyD4VMzrX366VdSgdWJiNwq j p2zke4tqbGa7KaJ4RZUibePpg RfhIQB6f2SqPg56C93lDUhmYN HiMGUmSSRaDOUnlAajst4gxH9 w Ii8+JIQwmIF7qCI5sN6lYeJfW cE6EAroQ631JjCagDEyFwnrB6 3dT8UrqYQ+URRfPpc7BHZqyFa s VE0sqYPbMRukQa9qFWD9EnZzG nSiLGmgB2RqIAHzfakdmxtziE Y4BEZoTQFwxC68Vu8qfYfrWOT w dAXEhT3wuibcu4xvrskjUfGnQ PEsNRx4GTv0QMKfhEqlYpBgGM L2NmQ9NJF9kNWcvP0nnLypcnu g lH7aN2GhPXUzhrfyMj74nU1wO nMmRrE3FMpsHci+VEFOTkVSLC GPH49HXZYyQZkddLJ+PHRkIHN 0 qYkiOCwaNXQvxT4sPRCqL5d4R gHeRpH3MDxnY1FdUIJujcuoSh 07iE9xEdCwBwC2BUepG3LdhgJ 6 PMOalHJcZDhjKGT1F21xq6D4Z MRwOPRjPGP7uBX7eV9nkWmodk ogbGVmdDsgdmVydGljYWwtYWx p K543FEJokPepHnWzGuU0OwQ2O Ei0U9EfZvs4UKBsxTttKO6enC SpBDesBi0nnOqhrIybIG8iMMU p uvegXOLeeP9fKSUkqRHvlUlvM D1kBQKpyieed222VqSxBRX6QW ClrHGfZ7IooV0sDkIdEVNmFGE w C8HlzBTkAQepH976NOflZfA4I NMfjrYjS7IbPYNhzVtqWvH5k9 H2Oe96PZGYIEYlmmmzqOD+PHR k HNI8rZfhWMghMFWjpR2uKWXuL 4g2IcLsBmC0XFcpV3XbFEZtii brAo41kJ4yNwFhEgJ4VXilC3S v qmJ7EYFfaERlHAovASI3U31bh 1B9AUOjIBQoKMH4bVX0fO4kiT lnbjogbGVmdDsgdmVydGljYWw t UYnqH359SGElxSlvZd9fxRS2G 0YlBoq0NHGeyEbpTC4teOKbMQ yuQx5tdXkipQdkTC9fOXSofzg w WANdqC8cZLVkaHZogSyxPF0bG EGwqsxfn130MgNeUCY5ACKosR MdH5NzsZ4dZbMuJACjJIBmF7E l sUHbRKfwY395PZqiXeP5HTOlw jNwM1BjMPWuhAxnMiJ8a0E8Tf 8AhGMrYLDwXV83QD23BB89I7M y PjwvdGFibGU+PHRhYmxlIHdpZ RGiNTaxRQLyFvOlcQmxAX9eOm 2qYRCrGKZqcHfqiIImJaDxd2u s EDGsBSfsMD5wrLipD3DheIR7J VKpb3m0Vt17W53lQ3SrcHN+PG ZtdJM4qDB6wY6dPiVsBcE4CKc p T128HdGcyIRvKsivr4nmo6gpf Md6AiOpNCOyhjZjmTckURN4z8 OpDj16W68pVJloHAAoQRWgVMB i UFYuyQnphh1adU4yGl7+PGNvb CP7rEJ1fO9vIcCdTfL7TPloZ6 59TiCodPZsUcrwC65oL0LzzQU + RKHqAky9MHCmsSmdBW4jhUYoR FchDx3gEEF0YtFbXfPrDAdoN1 DyVDBnhswyhpmxmKE4XJLzKOI w tI57Qk2ffQcmAj7xETGkMZL7R CRwtVZlU4QcwX4oJfAwINVzCA EpQ2OmxBKtJUjuU498NPszTnK 7 IOSikuVaV7XkDMCgpMafKyY1k 2B7Js3NwWjciQSlBO6eTuWcJG x5L5HnTgj8MLYmsFooJU7kwZH k JTooDc5tgUllqHowPA6uBHTie vvxc541HoRku6lzTIZpbJKgMY skKDX3Q89vx7X5ZYUiQWTbPDP 7 xQD8oR7rbZxxhzdvlWBuqLkjn bYyoVgtZOkxGGplS864GCMedR vbIpRKUxk1K8LfNci8RISmrBz s TK8vlCMfISnnAy3kcVbfaRjjJ J5mTMXsrjqgx742SiBtx7oqNT RqlULgYAkmUXZ7P84wj9E8NLN w WHFmUUN7hJD2jY8rbPllegmsm GVmdDsgdmVydGljYWwtYWxpZ2 45PNIutQloAp6UXmi3R7PtQmp 0 GTGbtGwrLQ2moNUdDSzaRl6pn WivoKbpEH9nRMMhbtkhi940By Ter8maIMUytDYoJGmtUMW0B20 s k7M4ZOOkVJUlLUJ9aVR9oV6we GlnbjogbGVmdDsgdmVydGljYW lcMQreZ704AAQzzXjeAbKbnOT y OjwvdGQ+RQ81fy41Z5UmXngtU ak3WJOiILV2wMB2jX3kEMDkBY hfa4D0oRO3H9RuoqBqrw9oz0b s YXBz (more content not included)... [facility] Consent for Treatmenton 01-29 Consent for Treatment [id number]#1.00CD:12 7 [facility] Multi-Wound Charton 02-12-20 Multi-Wound Chart [id number]#1.00CD:1 27 [facility] Nursing Assessment - Woundon 02-11-2023 Nursing Assessment - Wound [id number]#1.00CD:1 27 [facility] Nursing Note - Woundon 02-11 Nursing Note - Wound [id number]#1.00CD:1 27 [facility] Physician Orderon 02-11-2023 Physician Order [id number]#1.00CD:1 27 [facility] Procedure - Woundon 02-12-20 Procedure - Wound [id number]#1.00CD:1 27 [facility] Progress Note - Woundon 01-29 Progress Note - Wound [id number]#1.00CD:1 27 [facility] Coding Summary.on 02-10-2023 Coding Summary. CD:232930PD:[id number] Gh0bW w+PGhlYWQ+YN0OUYLuG70wjXE qtV3rW7LREHhKBmzhTHYNKOzI NrUdtmLgJC9udKMbPLWg IC8+OK6aTBShZtwfhHOtu5D4p PP7G61ozi4rYZvbtFP7NXAwVk Ogrobps9rrnYw6TJzbSeudOdG t HLBbmI85KFE6tZ64Vu45cKFbu QKjt3kgjNd0AdRsCSDiRJT2oB mcHIeqr8ZeHHWqG55xtNRgu8Z 6 JXBndZtcbTEmKfLxgOO8pU6xL Hlikrzrf8xwqnqnHzs1ex75lP Ded7S7dPD2E2DtskX3PQSeiSZ g WpeywFDRsA9bjnwsu8vsmdazZ dWjAUHoWYl0JGr3PWZecAcrFk YkSN78LWQ9ZXLggjMzQ8HsMYY s aGwxFvO1h8U0Ry3JH4VRRwgrZ 1VNTUFSWTwvdGQ+TO63rp58V2 DpUhojKpc3JTIlJMV5oLQ8jP5 n OKRlANkrv3R5mLP3T3MjxnQll l3as7hvSEAbDWijH38xtSFgc6 P0NNBxuHV5STDwyXszHkMkxM7 3 Oyc+CPEgsNowu4WgHtrwb6evs 6dqeSn9FwosYGCmljEryYvsTN Z1a6UhNq1rCIOspNL2jOI3vF3 i CoTzIaE1DDthG271EeZgaVAtG ujlH22aV0FxmNU+KUGbSbo3RJ GzoMefPD7rE8KnHAWjjnlxfTB m uVjvVC4wDBWtckncTCVpbD0pM EWxS8c9TaUaWjZ9XRnlI4AeHV JknbuhPf66lZ7sRaFjOoF6WSp u T1TiyyV0SNRsmQUxDBspXDU4D 71ks0V6NXKaBDIwWCN9vMY3vV 1hbGlnbjogbGVmdDsgdmVydGl j AUujLZexF676ILYhjZmkMhWlV GluZyBEYXRlOiAgMDMvMTMvMj AyMzwvdGQ+XWCzBXJ6zYcwGCU n mQZxXUopUt9liJrflCvdDE4iQ ZUcffdsVSPrpO9sAROpvIZomM cwZH0xLNNgkhewp817AxZfTCH 0 RBOxjXAyD8FijO4vFnWwRKVwV BWiB8JcgMQhLIpeD521QJbeSb C3BQBxkjPfF1IvFFUncEoqNfZ 0 y6U6Sz2Zp8XperyjL2DgyRFzL qEwRtiqJUn1D0KyUxvzmCO+PC 43VVWyQZ54IBz8PNC8gXxqLUu i BPYiF8CazM4iYjWwFHRwMECzY yc+PHRhYmxlIHdpZHRoPScxMD YzRfBglZhpMM5lGe5uFOXgGEF v zZppwTQpKqYag1dmLGPiVIpaV L6fqMhnV1VliAV1ZHAfd2v9Xv 22E89cJ4PwtAC+EDMwfFY1rEU 0 tX0kVsLwNoX1GVkgK406DyKuy BGhZcpak4cbc2daxPz1XrC6TY JpauApsLfaBTO8t6OsQc23Q54 s IHdpZHRoPSIxNSUiIHZhbGlnb z8gqN7kQp2+HVPeqAV2eCP2mL 5iUwSoEdH1GIkxN148NaVmpLG v Wrnlz7lcm1bybEv9KhPgRGUch xCrhPrdLBL3x6NtGg10Q6GihF rar8XbYei2pu77wJXjd6D7jVQ 9 J4VhYLFizuaglURrbIcjCW7mI HAjzperJZCljR1iJLSbJ2y0Su NaQbX1EAurF7EzpsC1YSPtnXQ g CCMnoKCXbC2pvefhn0xpsupfE bLwKDPlOYo5ARb2CSKlvPejSx DpCSY1VjT4RZI9nWGdjB1fbUx n gamejH6lUkv+XOH7iOZgtARCW I7yFojcrGH+OLVnTDF6sOpzBB icFYWseM6pSXZdS7g0MjUaOlE 1 QVivH8MbcuR4KZIljFYeMRZvl PWXdJ5fsuuae3ptptnoZyDyFT UjUKk5XRk3BSLwvLtiJzVmQUA 0 TaC8FIQ6fKOflD6xfIzwzorqc G9wOyc+AkxphDrjAGE4HIs8I1 MtPbw2MCCvxIruQE5yiGCxNCy u Cs4fbUihhBbsIO2eIZAvfuzqw 644NoMqm1fnKHCunKOsIWllJA Y9S97jx4B5IFVgSHOcZML6bMM 4 eL9fmKveojrhzSLwbZdxoxFaq ZjqUOnjRNjhK024SIEsgSvzPr SaPBv7D9XlMoy9ASEiaPwaFA6 n uKMgIYfqRz0utUnsqUrkER3vJ TMynjzvu260PzLra4fdPKVzpS UhKWgpQOB7A56sm9U7ZRYbIFR w NUJ2xNP5eQ5ccEvlqliazCToe UwrdwTgoCqjXWwaDUxhJ844WT FgmSojUpQyaPi4S4HfNxq5LUM z rAcsES2vfCXfNFtdKd8tjPjrk NwjIR9sLJVuplcuo547QdNia9 szVVNgkCLbVXgbQWB7E49ip6W 6 DDTrZLWgHOB7dZM5vK9ijJmbi jogbGVmdDsgdmVydGljYWwtYW iuA690JHSvjLicEqIdpDxlxcQ g CSrdUXb8I0IxYuzdeBE+PC90Y BXdGF58tIGkzLAox4iaaJz2Pk TzJBXkLQL5iNegWMryl5SaFXV t O03kgKGic6A8DOIcyYojwYHtE pYkcFC2mC7sYGafvbsim5somw zjNnjsn3nrap21mV41S11lTQl p XBHwMRCzWDYtCHApjWdbmj1di G9wIi8+VRCoqEG8qME1xF6kBH YbDcV2ALqwK525MfTvrEHhJdp j o7hag9rhcAx2PfF3BRZiqgDfg BtkLRF8m1TwFp48I30aFKesGN UpHIRpSPQcITOxuLxatq4ixR1 w Ii8+LOWtjEG7lBR0fL9cFjAnU sO5HYnyK651WxQezQJvGbtrC0 2vU5XwoWT+DDYhHvj2YDFfpRm s PL6knXAeRMmpCk5iRGF2LnZbP pUaVRgeJ7UmVOXpxjpkwbgidV O4AANuDQGesX16Ps9lwWqkUJH w uIXFsB7kksgvp4kkzvlxBhKhX LPkJIf7PAs5VHIccKnuUlRbKJ I0ThK7IOD1lYRrhD8scYiotta g yV8kS9XjGOFzizpmSs31hM3cH aVhEaK4DJciVdf+VEFOTkVSLC BEL66AGPImVIfpzUN+PHRkIHN 0 zZydQZdiBJAasG7lQOHpX7t3Q jJwBxS9JZazV7LxZGDyuxocGe 43nF2gVvLdIiV1VJrxB6HjwyL 6 SQVsxSLqNQaeFFK3T51tv0F9U TEyWRSiFKI1xMN1yJ8shRrtoo ogbGVmdDsgdmVydGljYWwtYWx p S918NSAtgAjcSxIjVxU9GuC2K Wy6W1KbOqw6LZIcxImfZO0mvK JhFXfkMf8jyYvaiCuyYN0qHCB p ikhiFOKrnV8sXGWmyQDdtXijR Z3kYAHhcfwbg558WxTbAMA9JT VybCPoC0AaeD1uTcMiMJNePWT w F9DpcQXpXRzaA314BRcwFmM5X YJvjoEeU7XlTRSczUmtOyH1o5 G8Bf92XJRNGLQfbuicyRH+PHR k JHU3vJcmKRxwWZAtgT0bKCOpJ 3t8KoNuBzD5GOaoX5WfGGOwjf fqOp88zX9xFjPfHjZ0BZunU1W v nqK4OTSppIFqJGtmDHT6E60yd 4G4HJGeKZQlOMP1kSZ4pO8hwY lnbjogbGVmdDsgdmVydGljYWw t GNbmG734DTRnsHfkMr7jeHQ5M 8DjIou3HEBimSugEA3hzQEuGQ ypAo7jiUleoYvpEV4wBPXmull w VMGwmF0iQIFuyIFquKbnAD0kL WObdllag744LxNzBTT0OAUduA QnY7YfuI4fSfWmKCZmREJtG6C l eHFhADauX034QTiyJbX9COHfv jIzS6AtNNGaaWhcJyM7i8U6Xq 8BwUOqEDDtKV28SB58LB44O0R y PjwvdGFibGU+PHRhYmxlIHdpZ EGrFHkrEYPdAkFsuQjfUM1kIu 2sJBMyILZzsVwtkMRjMtUom5p s SJNpTPgzZW2yeJqhY4MdlHC9J OWsa6x3Rh70Z64jA0YjwDM+PG IjySL0tEH1jU1eHlCaXnW1DWt p I822KaDbgZFhAkwds6kag0nmf Te5OiTrEMBunwAikGfpHCW7w2 PjXu54F55zNMaxATSrJCXpDVF i IJTpcEzguw2lqF7xPo8+PGNvb YQ8pZX3iN3bUmTqYjG6CNzrE1 67HgBvzGMsTlarF25jH6JwoBY + TCRoOar3IBIruOgaYW5mqKNrP AezKh3tPBH4VuPqRgTnJEkfE9 XaVSPbmqsthrnnmKE4KOVqTTE w uX33Pw4coHahHg8mMDVoHZW4N SNbpMCzE1AiqS4uGbLuRQQfIT KqR6FbzUOdVXmqJ804DTeaNmG 7 WQTxmvUbB9NdIVKqxOskCfY1y 5U7Fs2ImEihcYCaVY1nSkLyHF n6R7YpBnn5TZNyrAtxTS5wzCG k SMexAa9tdWfbvLtbGI9zKOHle yhje477WbCka9yfBYIyoASpEI wbEKI2I59cz6I3OPSlPJJtVYQ 7 kCX0yY6fdJdtqbiitBRqtFaoi zKawYjjYEagJCbyE311ITEvpK faLeMJWsn0D0HhBhe1VMZqvEf s SR9uoFZkMDjfVr2gfYydnHmtV V2rKJEstcyze172ChNwl4tkXV HyiDOcCYbmADQ3Z28uw2Z1FAI w LUSbOZK7hTY3kB2haCrltpcok GVmdDsgdmVydGljYWwtYWxpZ2 58MSKajIdyTl2ZXgx4C2KrYoe 0 GDYviUvkRR4cjVHqAMhuDs8qu JcqmRrsJL1hFDDhtxhpk380Nw Gip2peTNSeiJPgBBlrRNV8Q99 s a4O8ZYKuHSRcFWD4wEC7kV7ud GlnbjogbGVmdDsgdmVydGljYW yzEHisH152FQIciWemUhMbeEI y OjwvdGQ+PP98qg19F3GqAnsrL cj5FZFmGKO6lPF6hY4fRCVbHF lid1I5zBF3D9TugxSopt3pf2a s YXBz (more content not included)... Normal [facility] Procedure - Woundon 02-07-20 Procedure - Wound [id number]#2.00CD:1 27 [facility] Consent for Procedure/Surger yon 02-05-2023 Consent for Procedure/Surgery [id number]#1.00CD:12 7 [facility] Nursing Assessment - Woundon 02-05-2023 Nursing Assessment - Wound [id number]#1.00CD:12 7 [facility] Nursing Note - Woundon 02-05 Nursing Note - Wound [id number]#1.00CD:12 7 [facility] Progress Note - Woundon Progress Note - Wound [id number]#2.00CD:1 27 [facility] Coding Summary.on 02-04-2023 Coding Summary. CD:[id number]:[id number] Gh0bW w+PGhlYWQ+TT6VOROwC83iwSY vbC8RX7oYZG1AEPZDGXSPYT0T FC0dtWD6FRqqS5OhfaSr FuwloUOxBM01YJx5YDR5qKgbP GpkbH1ucJQuD7m8TkDvZH18mZ 38EOxbASFgBbP6RnYkahpkkMJ y U8utPbUoyKVsLal+PHRhYmxlI HdpZHRoPScxMDAlJyBzdHlsZT 3lZm8oTJJwDDNhtBnxnCIhKyV j x7zmMGWdDQxyBD5myLtjN7Wbe DB7HGTkx7u3Lp09uUA+PHRkIH G8pZdbMPikx054SsLyv3xjARP 3 jPZiGXhjYQB1X00oh0X5LHDbX TOrMOG6rQO2aQ6guUwexbdbT9 VqdVDaFzN8UWW5pZHeqB6dkPe n lraphQ8uLpp+H47NED1UTQZJY H9IYsm7N2KwBawsgQM+PC90YW AuPS84gPUboGNao4wspJg9EtK w PAQkWFT8wNdiIOfjh0ZzJOEjO 39plRJwl5F1AVBrjYepmQMaFd UveIY2bD2wPZxrnhjco7rpinc n Pliuv5labv58hP80Q38cHHesB HGnKDN2MHZsOHOoiXdfak9tgW 9wIi8+GAwdt6jgv2xbsMa3NiB w HBLhzuWayVktTIL0b1YbWq60I 5AjhZdzu6ByLte4ky37iXDsl1 I8rEJ6HOqeEDPqjU9xHNiyTaR 6 GJCkUlWmeQ87rBEqNSucGj8wz XuueDsfDA7dBABgnuiqVNOuiJ 1jRFNiaZQkcTunQK7nIANtayz m a756LtBaPXF7ZHBgpGIdP6Thj T4uNsDwFJCrOBLtR6NmaHXwTL qeS913OWcwIbL4JQAyqmRwF5L s KBRvkBouBeE6t6V2Gd0Du7Qgw vzxBTV9HFduJZStFlN7FfJzMq G8O3WaGgz2URXepYyrVO3nD1M h CKPfrlljvodzcJZ0PEHjNXBtn U02qISwKRwxDb7qo0E3l417BN XbWMZppJ41Jg9uqVgzVTZunQY U wI1foftmt2udkqahOmYnODQlV Gd7XBt5EJRebPbfIwWwVQQ4Km R4YSO2pNDipD5ctDvaqfmxeP0 w Oyc+E06zcI0qUXC1EGY3lymhP UFsqfFvQL78SR25Q9VtIpsptJ FibGU+SAKzwsRziUrnIH2tUuI j q0nqj3PbVPnsD6RjIJVdSKgjE si2AQTjNHU3uUO1fD0sCYWfSX eik0F6oQM7G8LgmqZmnl1wf5k s UORwJEhiT04gdGHfi5S4DBGrz TB3KDEhsYnfSxTirR47Ens+PG NurWejo4CaCmiom4kpx3gaxKf 9 UvRuTUCzfdBhbPlzOGN8m5JeJ o98W15cODprBCXsSOEaGRPiMH DhwDdmwm1acH7tTz6+PGNvbCB 3 zPF7hB7uGUKbUwM6ZOwcQ612A tSusMCzNpmpo2bwa5tipXp9Ya YqDLOlbzPgrCfbZJY6u6SzPo1 8 O48vVNbuFHXaSZXfHHXpGPPae Oiymd1keG0yGz4+NE9ud0awle 52rG33dNJ+NDQkIYH4fIiqWZd w RHMzwX7dLKuuDbZ3QUJiLkAar N58sOHcHWwhCn2skDboqFlyXK 6lZXRxwtfud110CtEmf4lhUEK w oZMkSDnzIRC4M62ez5V1IQNwU UMhQVI4zNI8wZ5wjWjqpmwofS FtaIfdarSslSlnEVxdRVwvF37 6 IHRvcDsnPlBhdGllbnQgTmFtZ Jg8A3FjNhp0REChyVyxPR2rpC EsKQqkTo1vvQhvdMosCM0iKUQ p ictnx476YsGbp7ngTFPjlZUhX FixZFC0Y93zh4X7TOHgUCHjZN D3mAX8cC1xlPcsspqziHAqlHo g tiSwvLehBTvzLCthQ261YIBmx PbxApFvjdPsABWfyJV8LB57AM 39nPRid8M5gLW2I2CrOEZctbe t verpgQD9OQEpMBIhnR94Hu6vt JxeDe2yDVSoAAL2LTJssMFnJ7 TeyY5kEmNjILRnNJWtY3IkzSA t QAxzY602GSzfIlD8NCGiayLhY 0ViZJNyeDbkDbZ2v0X1Hd2SW5 U8SD94VC03zWLqm9G5bTT9M5N h NGYpnwxfxqirjHX3OHRjLSKdy C02Qu4akKheGq3iVZQqCWQ2FU AshPBqD8EvxB8zOqAyYSKpEJA w T4HwjHPaADtiN893RXihMpC4C CChlnKtC9UfDYRueAgnXuH1a5 H4Tr2WOKp7QV66RO21cXIhb4R 5 dXN0F0KoLGImhbmovwpwvNX3N XCfUNLicI60Iu4ppSqlGj6iVD OiYUI4HTGiwFIcN0OaeA6mKeE j AEHcQXLwR7DczGVdLPsoX846R MdoDrZ8WJMgrnNdT9IvSVXsgW rhLrM8t3E8Xc6ALFUjNH88JPM 5 sHW1WY17BD56U7JqSrwejPCov +PHRhYmxlIHdpZHRoPScxMD OzBlQxeBqgEE1eKa2zLHIgNRG v nLcbjTYbTaPvx2jlMKKvLTnnK X3jcLpaJ5WzhUG3ZSDue1q1Hr 99K07tG3OhpYM+WGZaxWL5xDE 0 fP8mKeWmJqV2WOpcZ891KqMup KLqLtscd9znu6nmmSp4OgY5ZB RgsrUpjEddHLK6r5ToCz72G50 s IHdpZHRoPSIxNSUiIHZhbGlnb m2diU7vNo7+LVQrjLT8eGK8yM 1bAjBjNhR0SZjwE836JtQwoRM v Gwhqf7yxk5ssaWk3MgMxROYji vGhvObpBYL7e0DdRx55J1AnzV kmx9WkGdo5hj41pMTdy7T3oWH 9 E5NbOSLjgmxtvUXkxEicRZ8sD MHdjqzpJAGiuN9xVJIaJ6c9Mx NbYuH9PXzgI9EfioA2YXOssMW g AYieXQX9J38zi6Z8PYMsJLLeO EY0cFP8qB5cwYalsusvrRKfuR evdtJgzGcpPSemLIcrT277DXX v iImmZOIrxK6aXTDthAGdsEmuO E4wFHEivgzcEvFISu2SVmotRE 1KKFiDJPb6Q9JkWaw8QBIrqOx s JN4utXWxXHmaAe3waAhoeUeyY W3uYDXkmvefPWLurN6hRKKmlF MhyXfdJA8kTPLshcyca493BrV x WFA5PIWabHBvT5YabD9kWlWqD MCzHEIrK7PsuFNlSXzeL108IN bdUwO0SCEfpaIpT0KdHGBufFk u OvL8b6N6Ro0lMy2zHT3nWHE2W P69EV74wIJkd9J7yHN6Y9RiRP VoflsbeaidnWC7VQBaFHCeaY0 7 rOIvMTujBy4wd9P3y922NPWvH MHncJ41Jn2izLwnASVefVXPyW 2ekfwdj7nuztjeFgGxDFVkOJu 0 EHz4WUNedXcxFuIjYGC1GrD1Z UH3hNUtcO0teXvvwtaiwA0dFh c+EmOkGFXgbpY4P5JxMyu5HRC z nNsjHL3fkMRqQNrwNo5nnDbgr WcvEK7sJPUustakUUPkaH0eMN AqbQUnxNuwTC4xLCOubbvzt64 0 MwGbOIM2HJYmkGEmP2YzuZ4cQ nTsLXRsMNZqC7IoiNZqZQbpE6 90STwtLlT4CGCjcpBjP9KqYVZ s eOkbGcQ9z7D2Gx0JGUryYN05S A19iHKyz4F2sBB8P4NyDMKkbf tzczjtaRP0LLSvOLNywV26dAQ k ISexXy6av8Z4p353KNHxHIYgd M83Eg3jrBzqNRJeiAKKkV2aic brp9bzshjgHjCsTHBcROy4OJz 0 HOBryNoiXcPePHD2TmK5XCE3b IPohG4nvTpcomqhoV8dRpq+T3 X2fEY5eTTbvCxcpZA+VL33bo2 8 I5OhZogdAss9WXKrAMR9pAL4w Y1nISGhUOjiy3M3kZU3L9Jzlw Biyq2ov1jzBJMxGZxrN62lrQI w c4P7SSXwfTV7ATTvfVnkUaSrw G93Oyc+ADUtxCqro4JoWunbj6 duo7nczJz7KtEyDAYfwaSlfQr u RVU8s0EeTz70B36oJJsmNTUaC ZDpWPPfWRLmfQklcx2dcH5rAf 8+VLKowSC4nSC6lD6lTlTxIcD 2 XNboL828FtKmtMBqSzyqa2dig 5ijdMn6UiIgSIRzmgLirVsaPN X2z6ChYq39E9RypTovr6PpSbx 0 ko89nBVpw0Z7lMD0K0InANXqq zggbDKqyNysKZ8yJHKkmvzzSA YztT7cEQKmQ5s0OeYoEpJ8GJd u F2EhvhM1METpeMIfGESgsQULi J3rtzjbb1tevjlsUbLqDIUyWI j2VAh4FVRwqEsaFuLyOGO8FoD 2 LOJ2dZWbdP2pqThiomfxiN1dV yc+KIo7t2rrpXSmRE1xgAZ3YX 87BF71eOUzy0B5fCZ6S9MrEGD p pjeyxytwnQQ8NZMhFOLpbC33D y8hjSdmSm9cWBDyAJN0ENIwzA TeA5TuiO4eRsAzVPYyJHLdH7M l tFLfCUavW247BNojWpH2BBEbl zYqY8WbKNSabRukEbQ1b0D7Xx 6OGM20DJ23ZL46qLHza8A5hRX 9 C6TiLOSdllfqlrqiuXE9VTKlB NDxfA85Ik8ajRssNk2eGYInLF G4ZQQwjVYyU7YpkF2aRsAlNRX w RIRlY4XfrNYkEJjrL424OAczB gO0TOUanjOvL1FhIIZckBzdBs X7y3I6Zv2IZx86GB16LW35wSF g j1A1dMR7D2XvBLWwajqqgtpzn DB1FCBeNEJleD82Pp1igIsvDk 6qAPNmGFL5XKRuxXLvI4VxhU8 y DhNoXJSrOMSmE8QgtUZnXWleR 799QCkeXjZ0LPQpndClR1ElSO BgfZaxEbF7h4G2Tn6RWUileax 8 Q3LbFdiyeRI+OY86HPOqNP65b DDvaGVwd6zokFi5McTvQUKiWG S2sGfmIHlks7JwMJLrQ81whIE w c2U6 (more content not included)... Normal [facility] Coding Summary. CD:[id number]:[id number] Gh0bW w+PGhlYWQ+EU1IQOUsU76ujIX nuM1VT8qSSD7CJHTDIXHRFX2K LZ3iuVF3CGlcB3GhqlOq WcbyiYAtDK81NWc3NNJ2zNbuI JqokD5aiNAuW0b3LfHxRY45tI 10LVfpJBXvEqY9TkNhazgceJN y N0bjRmYhgSOrCil+PHRhYmxlI HdpZHRoPScxMDAlJyBzdHlsZT 1kRp3fNIRgTHNtpCgirVOqQaW j x0rsJPFcHFkbRI9mlTtxX7Kjp MW4MFYxm7q6Xf79lZJ+PHRkIH Z3bOinQBrzj309LqVtn6pkVZS 3 aMYzKLunDDB3H39iz5C4NSFmV XWwPCL7xAE1nF4trTuhndzvR2 KwoQMzTzI5KKW9sWJnxZ3inZj n tuykpB2gRuc+D35XOO6TQQTPD D4SStv5W1CvWcleiHP+PC90YW BmVJ75lHUnlPLan7mkyAj0OfC w AXLfADD3cWzmDTnvc1VaSHLqT 50wcYNnb6M0TAZuoGyysLYrNi UqfDU4xY9zRTexvtaps2xvnjv n Jiodj5ofno84hV98N25cOJqdM BRyOGM3XGCnZVCywMmcuh4koS 9wIi8+EEdqr8esl1nchTp4EzY w OPYxhbKjvQbbRHG4k8SvIx62J 9JsaAsfy5BpMak7hj80eDSch2 C3mDU0GGcoKBWslQ7yCMlpZgQ 6 ZIMzXjUvbI75tMUgZKmtQy3ga FrwyUxsXC9wIVAboxunXPXdkP 0lPABamKWqiWmaXW7eJGEeses m e824QpKcWCB2KCOuzGFiF1Plh A6aLxElBCQxMUYbJ8EhiCEyVX ggT066BYopNpK4SVXliiEdT2Y s VOBjwVixWaI6i0U8Ew9Uk9Yrw stwBRT5LBxnDJItZmJ5KhQjWr Q1A2DiZue8XRGsdIbjHP8mQ8N h PXHzbkeojkvjyEK3INPgDZCpd W31oZFmGIexAp2aw2J8m625MJ BhKEHomX40Cv9oxNyjVZMktNY U lH6ddepif2gnnbqcCkThECAqF Cq2DWs3KCBqfOaoUfXxJRP5Xs Q6MZA8rOYirB3qsLmnsjzcdZ3 w Oyc+E44usR3hJHF3ZJC7xjddJ MOjrkDqOS83NN51N4AnCwwsjM FibGU+ZWTplnCkaYynUQ4xZmQ j y8nki5QrVDabD1PdXNEeZGphJ tv6TIWpKDG0tGZ2rU1cMGDqZV aka2L6rHR6E8EvvdAbdi5mx0l s DLSdPIjxP58hzBFon5R4CJTgy ZS1WYDcoXrqDpWphH82Qls+PG NaiRkyc9HbIlsor7cjc7ajwZr 9 LgIpXTWlxrVfkKdaKSA1f5VhN c90W57rOLhcMLSmPSTqLKRhSS NekQscap3jfZ2kQr3+PGNvbCB 3 pHV4iN3xAHKoVdM7UWnhA287E eZsrYNfRucze6wsj0dsvRz2Tt PlZFDymuBxaTveGAW2u8FwVl9 8 I21rQDfuVDYbEZOaLDRvAHKfu Oewyj1duX6mSf6+FO1ep5kqez 60gN35gTE+QIXhOZR8iPvoKLg w UCMptM2oJOdxVjK7YNTkQkFuw K36mPFhEAiaBp7jmUwusEvtHU 1mDWRocndkl378GvUpo4uwEJW w tYMqZQqrXHJ2O41yg3K0VSEhY GFoFYD8bRM4gW8pvPugjmxglW GinYkgdkRxlBukHYneAJehL36 6 IHRvcDsnPlBhdGllbnQgTmFtZ Xa7B5ZjAvl2WKNvyVuwKG6ddT PiHAzrYr6pyLcjuLyeRL0mVFA p ejpja483OtJhw8kkQSOxoZGfK DyrGBK4P06ro6H2PUGqSHHtGG X3iOB5eR5slJckxzfcmSEbvRy g lnGgfZhgZYuzWKflI149IWRlu CidRtFovgUjNQKybIW1GQ85WX 93tTHao3F5uDB7N2MmRRVupwe t wrblyQG6EYNzHRBypL38Km6cf CvmTr7dRYRaENT4ULUvvTUjP5 HysX1gGrXaILEwWQQbK7JxyKC t ORybI942WUfkCuQ3UZNgyxZlR 7DdVJWuiElaQjX7j7F3Ir3ZF1 X5LC48RT01aCUqg7V6rPY0Q2C h WWRzpynxjtlrpVA0LMLbJUYqp K67Ct6jnVmcQz7kHSOnGUM8ZH RpdWMbR3EuwC3uUnTkGSQfMHV w A7UtoYBaPJeyB715ENjcIsL6X PXhwxEpN5ZlVLPgcJntLnD3h4 A0Yr5RGPy9OT81GC82nEIrp8F 5 zIF5S0KeQKMeshqxmnsgcJH3O KChXLDclO94Ps9wvRqyVm1lHF PfPMI2BRFatNZfD8VdeG0rGgL j QCGdYZVvS3YmxKMeEJmiC957J AueNqR5GCDczmSvD5TcWYMjjO qrKnQ5h7T0Iv0KOEFtTK99LXW 5 gBE2AA90YU59J2ZgDacygYCqp +PHRhYmxlIHdpZHRoPScxMD ZoOuBvdEsrBY6jUi3tYKQoYIG v hOehyOMvSiRka6wvMCFdITsoP S7lhXaaU1PxjAT9VKWjd7t7Tt 65D61sG0LbyRO+UYKdpXX8yOX 0 dQ4uAwDwEdC3ATqgX535JmQpz TXtAtljh8iuj6mpwKn6SkX1BD CgpiAklQzcHRH5k1YeBj31A18 s IHdpZHRoPSIxNSUiIHZhbGlnb n9ujG7oOu3+GEXgyQT5vTH8pS 8dGcWgApC0VPvkM070FgPznDV v Clzhj8ose2oscFn0FjNhKOXxa jYqgVlvYFN6w3MiPr59R6ZlxO drk8IjEqg5yc51zINlq8K5xGK 9 W5YlRDBwbxnbkAMbrQqwBL8rQ SRpqeknVMFrdK8tTIEcY5o3Ae GbBgV2QHcjH4BfgnN2BAMjtBQ g BTgrIXV1N81dj1U8HKHeKOFuN TW7pFH7oQ4mkHogibtxrUDccM kvlzDviRpmDLgmIDkuV772LSY v tSowDVDzaW9gCZBvyKAmjZzoT T2zAJQrtncqQkSRHl0PTidgXQ 6JATbNBIw8E4WqXxh0RGWkgIn s RP0cfWMhZRbcSm0toZpmkAzeQ S2uTEXvchjiZNNotL9nSHHzsZ IidSsoFD1eMJQcotige921PhH x QPZ2GCEexIPeD8IzkC0aLzKuZ LLfGABxZ5GvlLUkNNtqL545NE obFpT5TJOdhhVoZ9RcYUVucZk u DiK4x2K0Gp4hEh2mTT0yXDV8W G53DE12mWEfd1X9qHM8E2JxRX JcgaewncdorJZ0FBJwBYJusJ0 7 qNNpNLntYs9mm7O9y152FAXmM WZkvS88Dt6heZtwKTWryUSJjR 3xvnqcx2lfnidbYjXnFWTlLXg 0 MCq9FZLbbJwwNmVbBQX4BjC9U BL1iFWjhQ8rpRkbkfagkV1hPr c+KtRmGEOosbK7M9HjThe8BXH z wPmlRY6qbRAaRPiaNw8flUett TthZB9bDPBnjhzqSOEsxI7vDM PsbAXgbPzfIJ7oMUOvtxnsq83 0 IhFgINN2ZWAytRXlF0NbjR8bD vDoUKXjNSUwU7MwiTBlBNceD6 36XXplFuI0GQSlcbVfX1QgYWH s xCzbCjK6n0L6Er7UUOmtGT57O F81fOKce4D1bAF7Q2ZgXIKghk rrvsujoNB3IYEgTXEpaS44tLE k GMhmFk6it8W2x722MDMmMSRhr T78Bp0ocFgeNRUmpZPGuD3qhs rzc0zgfiroAxZzMHTxLNu7HCj 0 XFJmpKoiDdAxPHV2KzF2LUQ5s WPaqF0yoOavcdzarU6vChm+T3 L6dIM2hRSchMdhbDK+TV45rp4 8 Q1AeGcvfZgs4DRGaDUP8cNF6j F1fCVKrMAovx0M0gUK0V1Xcid Niqu7jw4yqUBRyLEabP43nqCK w c2K7EWAvdIP8TYUfiCaqImXmd G93Oyc+DGEipGrha5KhNpyqt7 hfp0ssnLd4CxFuIREphlLgjMu u JUW8p2VoDw25F01wIOjpQJPlG OXgXXVvMUYxhXdcbh2ssM0hSx 8+BQEvaZC4tBM2kD6kRlMpXmR 2 TEurU732IeYeyIBoVyeyz6xpf 0eddWa6LeSmCIPssmYdkQzzHP I3l2HgSh35L3MsjRbjp5JpUau 0 fv33hYLgc9I1kPW5X5UhVFYqm qvptPCjnYdyBB3qPWJdfrhcKG AhuT0vMXBwX9h8WnZsLuL7PEi u Y6ApdsI1MONoqTBxIIMyeSWTz J3hawhbc1airxnuTdCxJKDaHC u5SNx3AOXwhAgdOwRuYYQ7OtG 2 RSD4lLOeuM7iiUswhqsgfL2bT yc+TRk5u2ylzLPkCD4tuZS6DC 25AF81eBVnw7W6jSQ0W2LsIAI p wjpyzzijtTI7ILHjQXKqyN95U r0nvFwtOa3fCEBmSIX8KOZzmI RhH5ApbW9mBuYjNOXwKOYnD8L l aYClJSkrY052BDwiDoW9OFCli zRqU8FnXWAxnPmgMjA8o1S8Cj 1FYH74BR93LC99cKGwd4Z9wGR 9 H5AhOUEbgnuduztexVI4BRAgR THgnM56Mi6kvPwiKl8rHRThJM G2AOQegNOmA2VgnM4xMvGpSYQ w RQGrU0ZabBNbBByxY956INfmB kW2VICpbaMhI2AfYHVhhMovEd M7y0Z1Rs4QXr84BU95CQ66tSJ g t7Z4kCM8F8VkVDYoqvvzgkslk XG1YTYmLSMrrI56Qx4bgPqjGq 7dWOPqXFC0WHPjzRDxT6PeaB7 y IeOxOLJfOADhB4SyiEZnVSxoX 261YZqdAvR9QICaozXaR5YaHZ JcvPupAyQ2k5E7Dk4PYXbzqcd 8 J3JvUtayuBQ+RT06MXGwHI54m IBptVBbn2rvmNy4QdJgEWJdAW A1pUrbYRifo7BiDXOsJ04jvXX w c2U6 (more content not included)... Normal [facility] Consent for Treatmenton Consent for Treatment [id number]#1.00CD:12 7 Normal [facility] Physician Orderon 02-04-2023 Physician Order [id number]#1.00CD:1 27 Normal [facility] BMPon 01-28-2023 Anion gap [Moles/Vol] 12 mmol/L Normal 6-16 [facility] Comment on above: Performed By: #### 1 [id number], [id number], [id number] ####[facility] [address] [place] [address] Calcium [Mass/Vol] 9.2 mg/dL Normal 8.9-11.1 [facility] Comment on above: Performed By: #### 1 [id number], [id number], [id number] ####[facility] [address] [place] [address] Chloride [Moles/Vol] 100 mmol/L Low 101-111 [facility] Comment on above: Performed By: #### 1 [id number], 0398393, [id number] ####[facility] [address] [place] [address] CO2 [Moles/Vol] 30 mmol/L Normal 21-31 [facility] Comment on above: Performed By: #### 1 [id number], 0557762, 3641710 ####[facility] [address] [place] [address] Creatinine [Mass/Vol] 0.8 mg/dL Normal 0.5-1.3 [facility] Comment on above: Performed By: #### 1 [id number], 0398066, [id number] ####[facility] [address] [place] [address] Glucose [Mass/Vol] 96 mg/dL Normal 55-199 [facility] Comment on above: Result Comment: If t his glucose result represents a fasting glucose, interpretation should refer to the following reference range: 55-99 mg/dL Performed By: #### 1 [id number], [id number], [id number] ####[facility] [address] [place] [address] Potassium [Moles/Vol] 3.6 mmol/L Normal 3.5-5.3 [facility] Comment on above: Performed By: #### 1 [id number], 6669033, 3386968 ####[facility] [address] [place] [address] Sodium [Moles/Vol] 138 mmol/L Normal 135-145 [facility] Comment on above: Performed By: #### 1 [id number], 3110679, 7904696 ####[facility] [address] [place] [address] Urea nitrogen [Mass/Vol] 21 mg/dL Normal 5-21 [facility] Comment on above: Performed By: #### 1 [id number], 4729022, 1945833 ####[facility] [address] [place] [address] Urea nitrogen/Creatinine [Mass ratio] 26 No Units High 10-20 [facility] Comment on above: Performed By: #### 1 [id number], 1267808, 5247323 ####[facility] [address] [place] [address] CBC w/Indiceson 01-28-2023 Erythrocyte distribution width (RBC) [Ratio] 14.7 % High 10.9-14.2 [facility] Comment on above: Performed By: #### 1 [id number], 8760524, 5587340 ####[facility] [address] [place] [address] Hematocrit (Bld) [Volume fraction] 36.3 % Low 37.7-49.0 [facility] Comment on above: Performed By: #### 1 [id number], 5416040, 6567942 ####[address] [address] Hemoglobin (Bld) [Mass/Vol] 12.0 g/dL Low 13.5-17.5 [facility] Comment on above: Performed By: #### 1 0615685, 5039287, 5828675 ####[address] [address] MCH (RBC) [Entitic mass] 28.6 pg Normal 27.0-34.0 [facility] Comment on above: Performed By: #### 1 7017079, 1341210, 8053369 ####[address] [address] MCHC (RBC) [Mass/Vol] 33.1 g/dL Normal 31.4-36.0 [facility] Comment on above: Performed By: #### 1 [id number], 0872353, 2455518 ####[address] [address] MCV (RBC) [Entitic vol] 86.3 fL Normal 80.0-100.0 [facility] Comment on above: Performed By: #### 1 1922979, 1227205, 0282597 ####[address] [address] Platelet mean volume (Bld) [Entitic vol] 9.1 fL Normal 6.4-10.8 [facility] Comment on above: Performed By: #### 1 5561086, 9785749, 2670942 ####[address] [address] Platelets (Bld) [#/Vol] 272.0 E9/L Normal 150.0-500.0 [facility] Comment on above: Performed By: #### 1 0623348, 1566285, 8312937 ####[address] [address] RBC (Bld) [#/Vol] 4.2 E12/L Low 4.3-5.9 [facility] Comment on above: Performed By: #### 1 [id number], 2502158, 1581244 ####[facility] [address] [place] [address] WBC corrected for nucl RBC Auto (Bld) [#/Vol] 7.6 E9/L Normal 4.0-11.0 [facility] Comment on above: Performed By: #### 1 3019904, 3643116, 6386774 ####[facility] [address] [place] [address] Consent for Treatmenton 01-02 Consent for Treatment [id number]#1.00CD:12 [facility] Consent for Treatment [id number]#1.00CD:12 [facility] Multi-Wound Charton 01-28-20 Multi-Wound Chart [id number]#1.00CD:1 27 [facility] Nursing Assessment - Woundon 01-28-2023 Nursing Assessment - Wound [id number]#1.00CD:1 27 [facility] Nursing Note - Woundon 01-28 Nursing Note - Wound [id number]#1.00CD:1 27 [facility] Physician Orderon 01-28-2023 Physician Order [id number]#1.00CD:1 27 [facility] Procedure - Woundon 01-28-20 Procedure - Wound [id number]#1.00CD:1 27 [facility] Progress Note - Woundon 01-02 Progress Note - Wound [id number]#2.00CD:1 27 Normal [facility] eGFRon 01-28-2023 GFR/1.73 sq M.predicted among blacks MDRD (S/P/Bld) [Vol rate/Area] mL/min/{1.73_m2} Normal >=59 [facility] Comment on above: Order Comment: Order added by Discern Expert. Result Comment: eGFR is race adjusted. AA=. Performed By: #### 1 [id number], [id number], [id number] ####[facility] [address] [place] [address] GFR/1.73 sq M.predicted among non-blacks MDRD (S/P/Bld) [Vol rate/Area] mL/min/{1.73_m2} Normal >=59 [facility] Comment on above: Order Comment: Order added by Discern Expert. Result Comment: End Worker mercy kidney disease could be indicated at eGFR's of less than 60 mL/min/1.73m2. Kidney failure is indicated at less than 15 mL/min/1.73m2. Performed By: #### 1 [id number], 1183893, 9562153 ####[facility] [address] [place] [address] Coding Summary.on 01-22-2023 Coding Summary. CD:[id number] Gh0bW w+PGhlYWQ+SS3RZXEhU58kkSM cdX6YR1jGMF5RUZFWXOPQAN3Y IZ7nhRM5UDuxJ4WynfIv SahupVUpKA81GJi6WWK9vXseY CzliI4ksQGpC5x6FbOkLO88oT 46DTbrOBNpQyM5KeCprustiJB y L8koIiNgzESoUyk+PHRhYmxlI HdpZHRoPScxMDAlJyBzdHlsZT 4nUf4aZRVcSHMzlGddlXFjYnY j o7iqUSBvIOkyBK8raPezD3Csi NZ2AKXxl8d9Dk34zEE+PHRkIH T4iOgnCBdug494IaIvm1szGCY 3 gAVjAWogNBC7J85rf8X2GEHdE KXxOST2rFS5yN8aeXpknypmG4 XpdOKiRgN4DBW1nJNngW1daOe n bgtetV6sYrg+H10EBQ4KMAXGZ Q1UStn4T7RpJhoegZG+PC90YW ZhVF27lHSnaQSdc6uluGo2CbB w MCIjGPY0aIgzOYdko0NbINFuC 00dlAWqj5D7VLXnwFylzDSaTz CedVS8dJ4vDRxqrpmva5uqgqv n Txfic9dkbb24iR94J79mYKayX OQeVNG3QDZpATTydLjhhz9yoQ 9wIi8+CBove4zvp9sliCt2AzJ w KZXtafSifLwuIDA3b6ReTd33L 9KvxXdxr3DuMgj0mr96zRHfe6 C9oCU1NCqtNDNesP4pETuoDlH 6 YVPsJpEvhW57yXRgGJluHt6vx FtlkUnpIC9cGODxsykqHCIayA 8oXSHipPClmRlzGN2jXCKglmm m m378VfRhEMD5NIYjfVTxG4Llv S4uOkSuITDtUAJgU8ApnXGiPS qvN950OLvmUuW0PUMoqdLpL7F s EWWprRwcAxF4s1Y4La0Xb9Zbf csqSOD2TXhkQDAyWxMkNdAmGg D8N7JhYqd7IFIegRmvVH6aP6G h WCDzkvzltekjkLD4SUHtSGFeh L10sRCwPAemIu6fv5B1y933DH EyUNVeeP59Ea0wjMobBBWmbZC U uL9bmuzwi6bgffejCqAdZCEhA Sg9MJj7ALWfiJepToKgYIB4Zd J0OVB0zRShnK3mwUjbaqwnfA1 w Oyc+W05wkD2sUXG5SSF7fnngK YFohpQhQW62ZE93J0CrEjmwgG FibGU+BXYjfqQabWgzAO5qQiJ j p4tyc4WeEWikY2KeRRWrYUpvG an7WMZxZWS2zIM0kY0gOWGeLR oqd2D0mBM5J7CvqxCveg4lw2x s UNZcVUjjD91hmGDsl7I3RLMjx WM9OABdhMmfAvFzlM10Jjo+PG FevSlfu6HiEdgol1ade4nikYr 9 JsYjCCPlzgXppNheKCB4j4DrN c48E49iLNypVLYoQPQmMNTgUC YwkJtezt4xkO1tRo5+PGNvbCB 3 bES6sT3oVWGjXmM5VZkhC231Z cCnqUStPktbt6kvn3uhuJb0Xi JlHCHkkvNhwWspTOA8v6AnWx7 8 D92aCSgyVMHtDXHoCCRwNLSbj Pmwzg6caM3jUp5+FU2po9gvbz 25tN16kOD+RIHjUYA7kLfwKNa w GBOheT1cYNwpIsC6FQMxHyPsk P25xALaPAazOm2feKxjoAurAB 6lLZTiogllf563EnLbp5ftNTD w yANmUIctCEG8P64fb2U5WHUcW KUfHPO5eBK0qG8kvXarnoodkL VebRgdnsLmlEfqKOdtBOduV61 6 IHRvcDsnPlBhdGllbnQgTmFtZ Be5X5OwGej0XKZxgEmqIT5xvQ QyLVpbEz4asHgsuTrdJL7kOLP p oajkk777FdUnc4itDASzhNWgH UtkFBO1Y68yy0V3UNPoPAXvXP V3zHA6lG7ivYtoxwweqCSiuOa g gqIotMijTAngBOcxS080CHWfw YwiRfXoovKkHAUppON5RH17AM 01eWRdb5H4wJR9Q2McVFTuktr t fahgrMS2VMHfDVCvuX15Rm7ox XviLi7xGRByLQV6LVOakVJpR7 LgwL7cTuAaWODzANCjX5HujSY t LKclV959RZtjRvW3XCWnnjGuC 3GiZMRhhBpcAzF6w5Z0Wk7BJ7 Y0HO89VZ01sDMhh4W0dVL7O2Z h NREiunrngpdkfLT3RGCjNJTtt M97Lz3flOqnZa3qJGWpTHP0YE TrsERdI1BrmM1qKkEkOIWiTTU w B8TjlIPyEIwhU460WWubIpI9V XHjdjEfM5XeKWKzsTkiHiD5q8 D1Qi1CRBs9IP88QX59pCTpv1V 5 eHK8P7WvRITvqpdrnmpzkUI5R YYxMPJqzE49Ih9wnCnsDg2pTH BgUAG3XQNcjIBpM1GrhI5oAxG j MOYcJIEiM1GewTQkFDfrX963M BcdLfK3LLOtpkAsV4OkOUBedM jhWiI4s0V1Ms4YULAqMR98SYH 5 gPS0IA43TM01H5GrVwkjvRPfu +PHRhYmxlIHdpZHRoPScxMD McIcRpqYofSG2lLw9aRLMfCMP v pNhlpILmMvIai9vcWJTnVNocU G6qvDgzZ6ExzDF2BSHje6b3Hi 73P60bK7RjhBS+BTNkdXZ7hPW 0 xR3nFyUxRrJ5XWtwR379EtLik LSxXglwc4mvb9wdcAm5UtU3KM PvxuCaeAfpPAW5n6ZlJk56Q06 s IHdpZHRoPSIxNSUiIHZhbGlnb d1gnG4yZe6+BZTdtFG2mCF5sL 7zQhDvDgF3ZJpxG913MnNvqNC v Cqvcz6ktc2kaoPv9GfIvFTYin sJtoKyoGHV0p8ZlUt94M3VfkF nlm3ShRpr3ns04nWHgn5A5oBQ 9 O2HgWZIsewljyCRkaLhaHM8uN OEutmjjHTQerR0hFMGbY0b2Do PcZcF3IMhcQ6EzzaA6VEZjrQU g VQcfSZR0G77rf7C1CAXzVZXoG MY9pNA4fC8nlSzvzmdljYGapS yjvqDjaDvqPIjfJUhkH942FGS v zXenGDKezY3mNHPzwMLngRcpN Y7sGMBjtjlhOrGHGl5FRrzcUG 0EHKyPDIh5A5OdPit7GKSskFq s OA7xoMHvTGbiJd5rwKxazNjdS O7lCUTjtlwoTOMejR4pODQypQ CuqOfhGP9zMPElqqdlz704XnO x THK8FCAekXQfW1DwpR6mFhAeO IHrFCIgR2VwwQKsSPrcX271GE ndZuN1IAWdioGdG6VxWYLufUs u NlW5z9R0Le5gQr4iFS7jNPH7F N74QT50xWYeh2E6eTW3W1EoPP CzkofthbbfpRL4VYJsCKYudL0 7 wELgHJsjKy2eg3F1e391JJZgE ROqqI67Jf4qoAneYPPzuFUTrD 3bibydr1xqrukjQtUxHBWpXYp 0 HUw1ZMJqtBhkOyTtTPA7QpT8H XH5eOPjkR3shCioiohiaJ9wYu c+LoYuOUEsnrP4D7QqCyw1FZD z eIvmFI4kwIXnOWdtOy9slMlnl DnqHL6pITAlgovcBDQduM3qOW CswSYqbZpiQX7mJYZfedrcv86 0 GnKhEDE7STVudGKrY6CklV3iG wWcZKMlUZIoB8CusTMeTFwsF1 89ENloQoH4ZYMepaQgL5UwUDN s hRmuJmJ7l2J9Nf5JIMitCJ38X E55iXAbj5D2pEC2B9VfMGVewv mbdggknUL2GNGoBUSbgM68aRM k CGugVj1yg9U4f315FNQyRLYix Z70Ld4rcTqgHVPbzBGEnR6dmg iav0krimxhGgJcQCUjRFq9GRe 0 DUOgdClqQbKoSWY3HzV4YNJ6d KKxtB3lpSsygwnmuN6kWby+T3 U8jIU1yVPirXzagSV+LP31rc0 8 U1AhPddyDug8XZUaWFQ9uVO1d D3sXJYjANhok2D5iVG3K8Jhws Suvl3jn5cqUIMqFCvuL07apDQ w p6Y1IJCyzWN6MPHupNroOvFah G93Oyc+XILtaEtvz6SyGewcd5 upm0wvbGp3NkYxFGHxliWkoHv u JRC8g1CrXe24B28dHZkgZUHtQ BZfQSWpMIUwqRgnbo9shY8oNl 8+ESInbTU9yOC4wQ1kUfZtZbB 2 LLxbI433BlZtsQBhGbjfw2vxp 9zazBl1YzLqNAPdbyDzpOfkSD C8y3GqRd82B2EbqOzhu3EuVsn 0 to45mYSry4L9hER1N3HqPMFjd fwkkISebPuzEW5rUSZkagmnAA BjxL0uFPQlV0z6JvXoGeG9CBa u F3JktqY2CSLbpUFfZVVplIDYs C0eljtit0yxknrvHfGqHIDtRK j3LCa0RPKzrIsyIdOzZLY4NtC 2 ZZC6uOQykV9wwYclgzsvlF5tW yc+NAi9m4aoyRYuID5dtED9DV 97UN33cJQqi5S3kZL0J3LjDLE p wkggbcfsmQX1XCSxBPYryS39C r5ixOelSs3cHOMhIHA2JHOhfL YkA8YomP0aGaSrSLUeACRhK1T l tWBuARuoC810BSlsMuE1SJYxq cFuH6HfRMLxlEvvSkQ2u6X3Fz 9VIE90ZG41LD24mFZzz4V0zYY 9 Z1MtVKIxuzfooqozkBI2XXQfU LKgdT54Vy0wrQhjRg2tXXGyXE E0PICpbMZfR5RrmV5zDuEdIDG w XGArN0IykADuOGosE750NKjlP cQ7SBDhutKrP0AhMNFvcIvxVz W6n1R6Cg6KMd23FE75TR91tQL g m9V2fXD6K7UuNQGdtodwzgiit ZF7URYuVTZcjN94Gi5gxHceZd 3zQVGdFYB2CHMdqQQlZ1ZmwK3 y VbFjHBSbGNIsD5TmaSCaBBjpZ 438MRgqArG9EPGfhyRpQ0RnXX XskOdrWzA5l8T1Ha5NVQosvih 8 Q8EjQjbfbXY+UA58UVToYG16s CCdaHXtw3kotBm8ViWiJUWtBX E9qZiyYSaap4DmPWTnX80odPV w c2U6 (more content not included)... Normal [facility] Consent for Procedure/Surger yon 01-22-2023 Consent for Procedure/Surgery [id number]#1.00CD:12 7 Normal [facility] Consent for Treatmenton 01-02 Consent for Treatment [id number]#1.00CD:12 7 [facility] Multi-Wound Charton 01-21-20 23 Multi-Wound Chart [id number]#1.00CD:1 27 [facility] Nursing Assessment - Woundon 01-21-2023 Nursing Assessment - Wound [id number]#1.00CD:1 27 [facility] Nursing Note - Woundon 01-21 Nursing Note - Wound [id number]#1.00CD:1 27 [facility] Physician Orderon 01-21-2023 Physician Order [id number]#1.00CD:1 27 [facility] Procedure - Woundon 01-21-20 Procedure - Wound [id number]#1.00CD:1 27 [facility] Progress Note - Woundon 01-02 Progress Note - Wound [id number]#1.00CD:1 27 [facility] Coding Summary.on 01-15-2023 Coding Summary. CD:[id number] Gh0bW w+PGhlYWQ+DO2LSRQjB72knUJ uqR7LU0aODC3MXPKASLQNKU8V QO9mkQI2OHdaG3AdprGv BxvurKIfAB42JJg8ZTR1tJqqB QtuqT1mhGHcA8a8YzBcNP35mU 82CFgzKODpNdO8NjGgvbrxcJH y Z5rhDjKdgZVpSpp+PHRhYmxlI HdpZHRoPScxMDAlJyBzdHlsZT 6bGv5eWTXuNBNyjCodaYBrGdU j p4cmAOHzZYmbDJ3ssHisQ7Gws FP2MUXdd2c1Nj83mHY+PHRkIH M1kVthJJpoa538IxAes5zdDUD 3 zORoVJpzPOD4G46pt7Y5JWLdG QOjGLP3rNG0uQ3uqYimbnqbH1 HqiTHfHtI7YWB7cMUetS1lqXp n bctykR7zQfv+J35TRL6WIKZHR B1UGez5I7RnGomaxAS+PC90YW MxTG60yUDmwVOyy2wmjBl4VhH w UUPoJJB4tZgsZZylm2MtDWZdH 63mcUKwe0U3DJXeoAkdtBBrMb ZpvAH3xO1cBVvkuidbp7ciody n Teqvc3iwmy46pD44T02gOKbpX CWiFAL9DGUmMYSvfIcduo2duN 9wIi8+CTown2cri9upqMw5CcI w BVGhpdXniDzqERW6r1BqKp78M 9SqmPshk1BaNsf0fi09bXSpm6 O5jLD3UKvaRSOdxK0sWOkwEcF 6 UEBsDoYzaT42dHSrOGjxRo9jm CsveTxpEK1sLSXmrrdhYLJirI 7nLXDztGQhkWrbQU6cVSShjam m r144ChIgBFB7CHPzxENwP5Fbw M3zUyMjHNVdYBNvN4IrqDAlYT afG011NBakWcI5AZWxkrJaU1F s SLIsbRpqAqA1m0R3Vl6Bh5Qmx nhoJDJ8VNcoLZDqYaW2XaRlAr B4D9ZpWlf0FQFjrRgdJA3bP6G h NIIiwbdvbplkpKR9AAHuSNOsm B75lAPkVNtpIu9vc7K1r587LU FlNFSunK73Jb2ooJxrIPTgeXN U wY1wpwdzo2bsbjvmLrQgRGJwN Qo3WKk8INLajPigUxNcZKZ8Kx S4GCK2wUCfaJ1dhHywwjjiqF5 w Oyc+Y99isW7uMAR4DAJ5jrpaX XCnpuLmFD84ZP54G6CyZbtcdA FibGU+WMTsynQdaPdrET6xKjX j p3yis3WbRPblP8WiUHTbLLxrJ pn0OIYpQWC9qJF1sG0iVJUrEV wzo9X5jHX4E3GnlxAbki8ol5i s QPIvRVpiJ39fsBApw4M5JMDqq SG5VIKhbUxcNfEzvK48Swu+PG WqwZvpb7AqRlqea4wyz2qjoQl 9 RuVaQUBhzhBfxWvdUEF5p9WcK n16B56pWNeyNZKjRZMrHFKzIJ LhdDohcj8qtK5eQi9+PGNvbCB 3 gPS5bO6lGRRjPxV7LRoxL111C aFqiJZkExukt2anl3uamSx5Yf QlTOTvlaJdkGfuVXU3f4AsRv8 8 N20zJTqiHSObYLYxNZFgMVLhg Ctyub7gtZ1gCa7+VB7hf1nyjx 39bD71vEU+BNUcUMK7wLnbQZs w XVFtbO2sZVxsCrT5LWWpHzNdc Z86bVHtZPdaNn7qvPefeOyiFI 8mYNPgyhszs839UhBwj3tgGHX w oTLpOXwhAQH9A12vn4R1AQCqJ RQtIMD0mKG5xO1hmCyzcxpftN DdwIehwdKvjEnbNFmiPQneD29 6 IHRvcDsnPlBhdGllbnQgTmFtZ Yp7K0YuQbu5WHWgrHcuTR7cvQ QwSOohWz7ibIhakQwmTL9jMBN p jgwxm142QtWyl6zqQVXbpIXhM RgqXXV5W41aj6I5WAFaHBHxKQ F5oJX0bH0vkKkamgktvVXzhEv g mkFykOogACesSVwnD495DEQwn SteFtPlubAwBOApiRM7QC21OJ 57rKPre9B0rXZ5F5LnOUQzeci t eyaueJI4KXDoUUCchV27Do6xk VjjYm9fBTFdITV4VDVwfBOzU6 LikU2qOwOiZRGrDLHdC8JdjTV t PIjxC554TUslDsT5KTRgfiCmQ 9QdPVNcaChxZcW5z4P3Jn8OL5 W1NK75AU53nUPsp4D3cGY8Q0Y h AKByncioltrqrFH2ZTCeDJPrq S88Ri6ejSvaJo0wIHXtLCE1YZ UokFEsM1RsdU0uNjNrSNEtUEM w L3KfsIQeWOevD328NFgmKtO0L QRwtaQvB5WyKJXojEsuWgD3v4 K8Zo7LHUa6MW20LC74oZUyb5T 5 iUT5F6SiJYNzgovmkrxscRU4U OVqZRTceH69Ny7asGvoYs8tMO DmEDZ1LUOntAIhQ6CxvG7jQkF j QVGcTEFjY6HsxQWaLEfxC419S XmbSvQ6GRRcysLnT4HpJRNsnZ lsHnU8j1B1Bp5VLLRvYE14DVZ 5 yAT4TA96BY41P7QnWjuhuXYri +PHRhYmxlIHdpZHRoPScxMD YsFcYotUsgVS5fCo2sUNOkDXL v sMwycUXdYoRkk8hvGFRwVWlhR I1gpHgbZ7HhkOF6FGEvv9a1Fd 54U96qP7WfeZP+EFJfbKD6bTQ 0 kY8yBpCiQzW4EYeuM782KoHpa OZwQvdjm6fgs5xvnGd3ZrI2WM QfxkImdTysWFK4n5NzCe17B21 s IHdpZHRoPSIxNSUiIHZhbGlnb y7coP7jLr4+SJGbhAP3sFM7eR 5vMgUdOkX8MJswV808EeCrwVM v Jyfug3imy2utqDe4JuOpKIXvm iGxmKitLGR7z2MxVm28Z2UmhA mrs2ZoRnh1qv15hLEfq3X0rLT 9 I7RyCCUrmyotfZAnnTerTH9gI ITsurmwISRxfH3wMBTlD0g9Gy FoWoV8WHjwF5WjzxK1UVDphVD g HWnjHGF0R49yh3Y9QSDiFERnQ AZ5gLM6uT0rgEfcsqlbvTBqbM nbryJmuZhuFSmtNGjpC341KHH v eByfNIZfgI9gIMToxUWjbJzyX Z5lOFMwhuufXcPGEt2QMidkLL 6TZBaPHTy5A1IxMdd5AGVrrUk s ZO7xwQPtLGxpGi8nwDqpgUxrL V5tYUEcfoisMULytV6bQZXaxO XtzEwlOR6nZUKwoizgi650DiL x LIZ1ZUGbxMWlK4TtrZ7wNvUhG PYmFVPtM0DxgUQqRLhiE525TC puXgY2KTMuplWkD8HvIYCvdHa u KvG1x7Q8Yg4wSx9eYH6oQIJ6F Y50XU64cNAie5F6zEQ9S0FyFA PvwqyhtiljtDS3MTYyRJNtlC4 7 kPRkVMjuGu7rz7J5j522PXAmL UElcZ14Pq9vrOngDGOvxRXXmW 1agjyhb0nphtfiCtZsFTWlFFg 0 KOb5FWKvtAcwApEyKIA0GmL7S AM6wMUqbA9fnMwrixjhvM7eXn c+RoAfXSDsxuC7K6NuAul4OBF z rGslNK0ozUHoGHxcFq9srWczo SvwHE2uBRZwdcrmYJGwhX7bMM NvsKDqnTtgNX6pYUSnjkqtk38 0 SjXzUTE0WQKkkGIdI5RheW7yQ uAuGJEgLAIsS8ThiIZoXGyoD8 50GJvoWvR0MKNdyvTmV9SiHGU s sRlzMcR6b3I2Ay8IKUbfKL72O I26nQIsl4E6rJS5L4NbGIBlfd cngrzkwXG4GNXsXANlzE53pXD k YOpfTi4tk9E2w271OBZpBBAav A99Ay6diBviEOZplIFKeP4dgf kmf0ithofcXtGaPAUfQNb0RBz 0 OOQatEgaVdYtNLE4MjY6UIG0i CDlhN5mjPoxnoxxmM9rRni+T3 X9iRW4mMIzsFgxsVC+WN51rl2 8 L6VxBbtgVle1GMRcMZC1tFV9g V3gXXKsMZhzh2B6kBQ0J1Avmp Wkzp2my1saYLZtOTmyA04abSU w i3L4UOYezNY9RKQrpSxrWsVvl G93Oyc+RVCzoDixb0IxEzjum8 ctq0djgBa4GfEaCAXjgqAkqEn u SHS1g4KwUi97G13iWVrcCGQnZ XQdCLZsISQzoAktva0twT8iVf 8+DSHsdJE1jUZ1zS5dYwOyCwC 2 QEqbJ142MwQdsUBgUhucj3oes 7dmnAd8ShUxTZEbtaVbiGifGW K1w8FkEq10I8CtlSfes3MuEgr 0 og26hTTpp3I0xLM0F5NrBVOrj bygeZMdqGjlDZ4yJEPgywqvZL TdpT3pCUUxI9b5DpKsTjM4IGg u C0NxrsO0JMBaxKDhEPSizIDJw V1bqcetf2ftaakeNfJlFFZxOQ o7SCf7CAHegPdzAlDbAMW5JsC 2 HOV6jFXxkN0toCzxfznmfS2lT yc+HQj7v1zvtOWlPW0mfSP3WS 25ME78zRCke3G2nHC6F6XwHHK p anvucrgodHM5HRWcDHAimN95D y0jzPtoNu7qNUVxQCM9STMoiJ KsK6IejN9zKqNxVQUdNVWiL2K l lPLzJKdkL095DZczUaS7VPQzd aTvE1EhSGAwqJalRkR3o3E1Lx 1ZMX66HR50AD76lBNpc4P2pDV 9 Y9EpRNCarkmjnchcvFI4ERCqS OAugD09Ut7doHqfCg6iSFLfYT W2KKLvgFTpC3SomN9tKzRiCTK w NAPrB6FbzFNlKWmdP566QGdqQ bZ4LEEcvsErD7WxMESgcBqlOj O7g7Z5Nz3LUh93IM55MF70sMX g s1H7kFI2C6JxYXXevvkhgzlnj IG0ALSkNGCauE41Fx1ifSoyOl 0sARXcMKE3VXPrgFLxM9AijU2 y WpIjXXXjMONmG2TptQVgBRdwW 839ODpyCeG0YAUpfrHhP4UwZG DztHciHzC2r7V6Hh9EIWsjkdu 8 Z1QbYdrhdEK+FY37ORNoOL52p AZjkNWjz9wafHd2SdBnYEMqIV P7bUisVQjwr9MsTLKkF09hhEP w c2U6 (more content not included)... Normal [facility] Physician Orderon 01-15-2023 Physician Order [id number]#1.00CD:12 7 Normal [facility] Coding Summary.on 01-14-2023 Coding Summary. CD:[id number] Gh0bW w+PGhlYWQ+PW8BDGHgZ05mtMU rcH3BD0vSWM4JVHKVTTNDUK9S NC1amUR7IEcpV7CktdCm AwkgqZCqGS92PGf1RJK9tGewG SoefF6luGNtN7p0TwDzAF03nL 55MOppSRAyHtJ9QlZcgtbnsZB y R6dwEpJvlOZeWfb+PHRhYmxlI HdpZHRoPScxMDAlJyBzdHlsZT 9qWn6gJUTbGFHsjOhozFAyCcP j a9xmWOJdHDwqZJ2piHxvP5Yhi FS5CGZlp2k0Mr38rNV+PHRkIH E9xGlbDWjma852HyHoi7fbVSD 3 oMZkZAnvOKL5O11kw6Q9LAFyI YVlJQL1dTH7cW3atLhgrjalT2 NazYCwXyD2FGF8bGImdH1txZp n rwhczL6iRwt+T43RIM7KZEHJV F7MFel4S3ScMcuglJF+PC90YW QmDZ81aINlcYJpo9waqAo3NvN w HUSeVGW7fPbxMYzla1HiMXQlA 97nzNCoc5G8WVZtiYcbeTZtZr YxgZN5uH4sKGkrzfnnc6mvlec n Kqhan2vxij91dO20Q07tYUnoQ BKoWYM5QCUgHAEurXtwlc3chJ 9wIi8+GNfrq4zsd9tryCy9MhO w XXCqhnNrgVwkOWJ6e5JeAb45S 6JdhSasm0QmCky0rp10vBEow0 S4qBG7UTsoRNTqcA2xTFlhCtH 6 UGVgChRpmV69yCPxNUgfTa9zk NgaaFzdXV3eOEMxlxygZPJdpI 1dIPKdtDHyqVwmYR2eZXSauzf m w802VwOzURP9BGGmfQGnL8Jbo J6bZbJsKOXxGMPjD3OolGUcSL mtS456YVoqKbP3UGMslxMpZ5J s YSUawRzxVyN0c9Q9Ow3Dq6Qab lgmNRR4WInfJYBnTvW0BnOiIt U9A8TzQic3EOWmkAojTT3cN9Y h XGAnadqrbekewBI3EWCuBBNqf R37wERmXYmgPd2zv3Z9p097FU RfFLTxsV15Lq2gvBzqOMNgoVI U kI7schsjb9tspwdlLeMgXCXoV Dp2NXw8RNTukXbgPgIaEWO5Jr K7DEN2nVBwhP3qdVcbbmxfwZ1 w Oyc+S50kzU5mNQN4SJA7xfnoT BJbabZuZL77PY20C0NkVbiauJ FibGU+JWUmhgGrxRsuEF2gXsD j v0hpy7NvUPcaV1CzSJOlOGkaI ta4WQIuQVO3tVG6yC2hUEMoDN wmx5O2fRF4U9ErfcQeyo3cv4s s YRPhNKvzB72zeVExm8M5KRLzw LC1GVTwrErzLwJfpM96Fcr+PG AfaTtuc7WpOifip3gll4wcsFc 9 InWzSBVycsJqmZzuNDM6w0RrL h42V04zJPhiUDFkTNBiFAXuPI DxwDgxlp1aqX9nRu8+PGNvbCB 3 lGC9sQ2rHDDpXzD8PQbkU969E pHkzFSwHavgy2qow7khiWv8Un ApVXIbdcQeuEblTWR0n8IaVo4 8 I62tZSqmKMJuWNFvSGHpJTVhe Nhysf3vbJ7qIb3+DS2up5eeem 37xO54oZN+MKKbVJJ9bPuvERd w XFNtfU7lGUgiThK8GJJdNwDry T56zHElZYdaLi8hiXgwaOhsZI 2sRSIubolgr393JyChy8yiCMA w gBNlCYzzOYD7S41uc7E4AOQiN MKtIOD5kHX7mN5lwXkfcsqunN OqyZybuiIctCtkUHufSAmwW58 6 IHRvcDsnPlBhdGllbnQgTmFtZ Fi6C6MwFxw5TUYzaVxyHL4bqY PrMKldZv5dtRqwuImjLP8rJCP p iatxb340YhQrp9pyEMLsxDWgD JkuZLW1L17yf5G8YGRdBTFkUP Z6lWU2kN9pkOuzmqijzPBlvOz g kmLadKblOVsjQQwiM873EUDuk OjpPsKtuwEnRJDliXV9AZ87PL 00wBSgo5S0uUV8R8LkDRPyyrz t nbwnqJX0LDWfYNBrwG80Oe7wh EpwBw5wLLVeDLN7TCPbaECyS4 DdmM3fAsYbVIZdQXFlY7NyqXW t VZapG866KWmfQnK3XUOmxoZqU 3PqCZGczXprTeF3d4T7Ts5ML0 C4NY80GY62bKFph7H1hKU6Q7D h ESKvviimwvpzqIL7DLLkLIJqe I18Tp5fcVfaHt3sZUWnZAX5QC RpnIGwK6FstP1gUmXkWNZxOKJ w O9AyeZYdTLwhA674FPldMkF6T OIqtzQqV4IlUKQgpHfnXyZ7v6 X0Fl1VSUu5DF85SA36lIXfx2U 5 pEO8T5HeELWbpvemljylxGS1R BNzTNXeyZ76Cl8tfMkySr6kOJ IuBLL3ZRVuoTMdP8NsfH3gUpM j EDYySJEkS5UobISmXKfyH496Q DhkUeB6LGSilvYcS6SbVHXjoR thJnA1r1I2Rr9ADWVfRZ27NCH 5 wLW3JC78IH55S7HxDbvfbTOaf +PHRhYmxlIHdpZHRoPScxMD DqCvCnoYdfIR3wRa2rSTOuZSX v dApnbGCvPhLvs6sbTVQsXNnvI V7phWadF0ObjPF6HDBpb2b3Bh 60T93jJ2FlnFA+TJHviER0tQZ 0 yP0eKhWlLhV2JUagR359GhTmk JCrKsokl2muh6btkXb3DpL1WB LfqxNikFcjKNA8c0BuQh62Z33 s IHdpZHRoPSIxNSUiIHZhbGlnb f6cyL2pKs1+OBOsvOW5zDZ9wM 4oUkIsKjM0VPgkJ116WlUlcID v Ezpzx5hea2zkyVz9QgBfONKoi dZfxJqlSCG0j2RlAx45M6ZsfA peb0MxDxx9ww35hPWsl4L1dBZ 9 M7XaINXklnqnhBRelKgjHF7cH KTctvtnCANjiP6yHDQqP3t3Ro SoCnD3MPxmA9XmcbY7PCWobOV g BXudIEZ1K78mh2I9ZYZvXEXrJ LP7nPJ2yA3wwCpyhtltxMYqfH cvidWsrYkmXPacJStkZ546EGC v lKxjTIJwyL0qRIIcbCMlpGqdP G4kSXKnyzviEvWOAe0ENicmNL 8STWtHKNy1C7GqLur3QMNccKi s VM9hhNMiMWvtTo0nnEtaxEwqA O6tSKBicmotBQUykZ7yOAPtbT YbgFnlGS0hQAPjtrgzk121HsM x EYU8CAFzpSZiB7LlrJ4vKmTzR GXsWAFgN7KbmJEjAYoeE928UC uwXsT7WJCfjsLqB8KbBWXozVz u VaC6u3Z2En0cLf8dYX7hFKM3O M26CK77rOPts8Q0eKR5M7DhUE FfkolkpgllmME5PDOuZCZtaQ6 7 yUMoICizVh7sk0G9t570QNIlY ZUbqL67Ci9vwFtkTIPceUPTwG 7tvfmrl8fenvxoXuKiZHStMCy 0 XKi3WOOqfVvdDkIrXRJ3XbJ9U BI9dDFhlO0zeKaoyocohH4qDh c+LlTgOXGqrbY6H1HtJqi6PDO z tShiJS0jgAJrVPeqRm2xoKxic FgcUZ7xQZEhiftiTAPgbI4hXX OfxVYulMckNX3rMWPeduuxk90 0 JiOdIZE0UMTrnFZmN2YxcS8kW dLaRZBvNSSbF2KhrZRkBEevR3 39FFvbUqX8POAvwrAbP6IqRML s wEgjUmZ1g6V8Dg7YJVywNN80P W95vXQnf6C4wLW5Q2SyJJTyco ugvxlpdWW7ZAHyZYXhpA25pOD k LCnwVo2my4O4l360LAHnCYOdl O16Nf0ziTilKWBnrAKPjA9ryl zda6opkfywKlQqJWLkIQm2VNh 0 ELOapEbzAkOdKEN1RdW5PAR2u XFasM8niCmhjpjxfA8cQof+T3 F5rEU4nVNvlPamrDP+ES99tk5 8 H2DfJqagWsz9ZIOkESY8zYD4l T3tHHCyATnie2B5jPD0U2Rqyj Iicp3eg2gkHDRcGNxvU96ptOF w e6H3OYDrqYX2ZVSyzAazBfQbt G93Oyc+BVThiImgn8UaLdmsi2 ayv6rjkCo6HrPbNBFpyrUnyOo u VBJ4k0KxRh52H93dICkoJMEsN VKvORXdYYKzpDdhny3xaH5gPj 8+KIXdnRJ8cXF8qC4cQfQoRxT 2 DIqkN699QvLliNWyZsfda7rnm 2vnyTr6EgUzHPNzbmJeyNiuAM Y1y1RpQk23G9PatCwkt9LeOum 0 zp28hWNtg6R7nKC8G6CmJSTyd dhaeVQopIfgXM6kURKvdjajBE FfsZ7mAWBaD3c9OmOlCgO3ZWf u Z8ViqdE2EFPsaNNfNJSooBPNm R9loctpd8zgscxmPcVlEQTqQL o9QEq5VQOlmSpiFcHxHCM9FeT 2 HQH4mLHjjM2kvFpwetqxeM2tO yc+VIc2k2hljQZcLH4noMJ2EF 74RJ95qIExt7Y7lGX3J7KxBRP p dciemlqqvMJ5KGHjOKDxgL06O b5blQtvTr3wFXIgGUZ5WGEyzZ GqZ4GjtT3vRsDfTRMtVZZvW6O l aOUkBBzmG295BYqmBfN1JRCun lFiP6IkGDOvzMruAeG8r7W8Hp 6UIT86RR28HU00tXLjh8K1yNE 9 G0XeXGVpprijojyduCG5ZGPjI IPiaC40So2xxFvlTh3oRFGnWI I5TPIjuBPdD6FlbZ6nPxHtETQ w WRVlO5UooLWrFIaoS995NXnrG mZ2SDHoqoQiC0ZwXUTpqMyvVp A6v6F6Ue3LNg68AN62NR83iME g t3I2fRU1T6EiCETocghmjcznl DX7JGFxASZngX27Rr1hcKqlLl 1fJUOmRER5WWCscLEmI2JrxW7 y MoDpTKRtLXAcV9ZexKLwVNhtX 224VHjkDoX9UVZuvhGyB9IaVN FgiXmuBiY9y0B4By0HXUunuft 8 S1EnKtthwYB+DX72EXCsDH50r MChrCTuc2mfeEh9AfDbKSKcXB M5qJaoBHqkd7ZmHJSmP71dcRM w c2U6 (more content not included)... [facility] Consent for Treatmenton 01-01 Consent for Treatment [id number]#1.00CD:12 7 [facility] Multi-Wound Charton 01-14-20 Multi-Wound Chart [id number]#1.00CD:1 27 [facility] Nursing Assessment - Woundon 01-14-2023 Nursing Assessment - Wound [id number]#1.00CD:1 27 [facility] Nursing Note - Woundon 01-14 Nursing Note - Wound [id number]#1.00CD:1 27 [facility] Physician Orderon 01-14-2023 Physician Order [id number]#1.00CD:1 27 [facility] Procedure - Woundon 01-14-20 Procedure - Wound [id number]#1.00CD:1 27 [facility] Progress Note - Woundon 01-01 Progress Note - Wound [id number]#1.00CD:1 27 [facility] Nursing Assessment - Woundon 01-09-2023 Nursing Assessment - Wound [id number]#1.00CD:1 27 [facility] Nursing Note - Woundon 01-09 Nursing Note - Wound [id number]#1.00CD:1 27 [facility] Consent for Procedure/Surger yon 01-08-2023 Consent for Procedure/Surgery [id number]#1.00CD:127 [facility] Consent for Treatmenton Consent for Treatment [id number]#1.00CD:12 7 [facility] Multi-Wound Charton 01-07-20 Multi-Wound Chart [id number]#1.00CD:1 27 [facility] Physician Orderon 01-07-2023 Physician Order [id number]#1.00CD:1 27 [facility] Physician Order [id number]#1.00CD:1 27 [facility] Procedure - Woundon 01-07-20 Procedure - Wound [id number]#1.00CD:1 27 [facility] Procedure - Wound [id number]#1.00CD:1 27 [facility] Progress Note - Woundon Progress Note - Wound [id number]#2.00CD:1 27 [facility] Coding Summary.on 01-01-2023 Coding Summary. CD:[id number]:[id number] Gh0bW w+PGhlYWQ+EN5ZFXYvX22yhOD xsS3MT6jXEW9YWXNZBZJUWY2P DY7nuIF3MRvbK3SkvxRz UvzdpENnMF15IAw9WTL1wVyoF EtrtM5clGOjY0y9VvGaTG62jC 56DXktWZZlIyS3VoUeynwnjJZ y A2hjOfQjsRObIbn+PHRhYmxlI HdpZHRoPScxMDAlJyBzdHlsZT 4hDa9yELQfQMLdxCupsBWcGzM j x0tfENPtYGslXA8veCmvQ3Hgz RA5OYExm4z8Mj29xKY+PHRkIH E8wEqrBUhju739KaHue6goDHF 3 iIUmBGpgJIK4B08cp5F5QGCpB WVhIKV0jQD9qQ0xrRcfbbrwR4 QykNTlDmF1VJX4gXUqrN2xjRb n luedqN9fHrc+I34RYX6HKHSON U2QAkq0J2NzXihlcWB+PC90YW ZgYC64rLOwtNUee0djoVh8JpT w INAxKSK5rRdmUCsjo9BzTLXzU 39ulTIdp8Q3CRQzuRxovQKbVc VbbGD3zF3lFWmtxtpmk6crsyd n Gfvsd0itro24bQ47K47lIUtcK RJpOES7XGBmBAHefKrpqt6jlE 9wIi8+VEhna2auk1awaXs1MpR w HPPkrnXkcSaqKRN0o2KgPy37D 2EdmAdfc9IbQpv4mq32cBGuy9 Z6gMI7NZomMFAmlA6gUUfmZzR 6 PIWnOrDfiF39gMSpFEcpRv4yu QkfkSaiOT1bERAqhiqqGHOvlX 1sQBPqbVNavCtjKR9fZGTavmx m w168AqDqXXR9EGPgeEJfI6Sxa U9aNbNxYVGqTHXfI0OwoWLoNG rwS731OSebReP4WUNnenUyQ9G s KJRpwOkaXsP1f5Q8De0Pm3Ipk jusJDD7UYcfIYBvAqVjLbMpNp L1Z1UdDbv7XSDugDarUJ6xW0B h BVVpbivktdeijWE9CFSdXIXwh K11oNLoFLpfIw3gd8T4y892LC ZvPNZbwL82Sm6raUvcGEQxwJU U zB3qanycq5rerakdEqVwTETqQ Mw7YPb6PCGfdOyuSsEiZSB7Ea W5ASG7iZBucQ8ifYrcupcekL2 w Oyc+U66tnB0jGLG4UFO0ioxzE ZMypcKmSU28KW11H4LcXcesdH FibGU+HGBfqjDtdAaiCL2vOnH j k5uru6VgCDmbV0BvQJIkHIetG im2DVRkWSB6gJN1tR7fVDLbWM zsd0F7nMU3R4LfabShjj8hn6f s LKKiOVwtS51igCXzd3W2ERXbn IE3UJYtkGisGpOorJ80Twa+PG JqyStob1EmLlpuh8exm1pvtZb 9 YsLkVWEutaKugXsjRZZ6f4UwI r98Z43nXYspGWAnBPQvWBJjFF KgtHdzdn9luA8sKw4+PGNvbCB 3 vCF3qZ9sJCVjJhR3SPwgI612X xFvaYPuIaxbb9adf1sgaMv3Yv FeMRFrsqVmfCunFEK5x5RwXs6 8 V10rGXlgKVAmFLRzEEMeZONsf Enipt5pbX3lVx8+YA1ak0zxej 59fY76tLB+VLNsEZZ0oWarNZz w BFNiiO0hKAfeSnY9ZCElSyAhy R82fFUqHAqfQk6swMwknTcbNM 2hOISapsfpb946KhHtv1rhSFP w mYLfDFqiJTT1R88mb5S1QMKyU CKlOVN1zBS0sT6mfDjvrqzalF CqjBdjspBiwEigGSpdTZymY18 6 IHRvcDsnPlBhdGllbnQgTmFtZ Fe2P0SqMtv8ONAxdZlgOP4fwX OiPCjuIg1qzYrxuRtnCK3gCAT p nueua400YnHjt6wiYKAyfTWcI DwmNEW7Y71mx2H8LMGlBFPnZN W9mZX1kQ6rnIvmynxruMTkqZl g onIghGghWFjiRAyhQ842IMCgk IefDeFrvcNsCVFruLE5TG68JZ 51sSDym1M2hMV7Z7BtDIOgdyu t gufcgTW7CBCnKJTeyI87Yw0cg XjvWh9jKELsHHB6KKGmtYIdI9 RkrA7wRoGwBQVkZNGuH6XzjUM t DGthW174ALibFcF0UVAeuiBoX 3CrUUYdjAczEeF6z8O8Tg0JX5 Y2LG21IQ21jGBkd3S8vZX6I4Y h URKdcvqruuqnaOW5XHYrTMSim J11By5fzKsoDz1rVPDlJGC3LY NkzPOqT3PveX0qAaRuNGQdLEX w B9UozSYrTAnwI208WCjuAeD4N RNiytYgV9MhLBNctOycIjF7j8 I7Gb8KISb0QW11OY95pFOxg7K 5 mIJ9W0BbPVQkehzvrovupFF0Y CYdSDSwhN52Ww6jxSriCy7aVH JkONI4KMUqzLErF0UjzB9nTgC j QXNjTFSsZ2SbpJQsNFthA331I UemYyY8QWCxnmJhC6XlBWAbiD nsRgM5m0Q4Xx2OQDMdRM38BXJ 5 qMK7DN73OT95Z7SiBvzmoFKmr +PHRhYmxlIHdpZHRoPScxMD KpLkHjmYftLC7nPu3nMDEmNLP v eOoqhEYiKkZgw1jeZYNyEUpjU P0lnHzzG0LmyIH3YFQeu7v2Xl 53Q18wE4DlzQN+XKFkeYN2jAJ 0 gP3jWjWuXiF2VKqiZ061VbBmj PFtKsgyp0ajn2itkLe4PnR1FZ LqxnUtqGzuKEZ2m2GzVa58N14 s IHdpZHRoPSIxNSUiIHZhbGlnb h1ykN8zYr5+WCOxkPD0oVH3dN 7hSjVnJzF3MMzvZ551JlWabJF v Qffqf4sll8tjrMh0RmTrWSKdz hOpgQzoYZN7p9OcVo24H5TaiU bqp9WhIlt5ny91xTHoc9C9zQW 9 E8NzSNLtignhnBNcdIhhLI8tX GZrlygdFPIomS9eSZCbH5r7Ky UeWkQ1CNiqA3MhrgU6RMEfkJT g KDdmAIW8D70fo9Y3TYRsOKGuT BE3dAU1pL9mfDpkdjakaEXxiD lrqeBscEpkTBuyFFjdM249OJF v tVthQLPclC4lDELjxIMprGvnP V4mFCHxnlldJfHIMq0JHltsIM 5ZQAbWZUb1W8IeKtv1ZHRjgAy s PP1bzGNvRDcuZu7ywPjuzNtyZ R8bWNPsoxidCDXxeS9kPSSwqV GseSjmBG9iLWGupjokz997ZnS x QJY3UFVbbGKuE1AbmP4sVnIpV NXyBNGfQ6OgfELnHNtnM486TA ixKvY5NAErwqMbI6ReVTCckQq u GgT6z5K3Pu1zDt1kRE9gVFE7I B50MQ18vOOwg5H2tKY2O7RkZV YtuyqbjvgpkLQ4QIVoMGPksC6 7 aSZtXYhqBw2tc0Q8c761FBZlI VJhhB20Zr3fzInoBWTysJXYeF 2ledldr8mszztuPbGySJPlIWd 0 SUp4HJRalRjaFzToBRS8BeN4T CK8xWTsnH8zdMuneonuiE8lCm c+ZgMwSUSdvxJ0K5EjLli4WOD z pExfED2wcAFbXQabVh1cpUfta HleRA1lTIPtpbicBFIznN0iKT OccQDazQshPG5jUUIctipue22 0 GvTfGQT4LEVbbBHiU2XhtJ5vJ cIkPBToBUDoM1CokEOfPRsjC4 16TAfoDyX2GSVeivErV5YgZQW s qPiaNyJ8l4P6Od2EMSkhIV02B K87mBIzv4Y8pKQ9M2PmQDNzsy inkicxoZB9ZRYpECYcyA80qRE k LYyuQw8bv3A2p069ERVuUIKaa Q84Qw1ukHtvHFKheSLQyP9ibn gnj1movfajTfZrBCWcYXo1YQj 0 YTFlnHjkXzUsZOD8PcE7DMV7u BUjgI9jaUuetandtA8tKhp+T3 Z1sZS2oQBmbNopyRQ+NK57ma7 8 M8FsQstmOpa2CZXdGPO6fLV7m B3uFMMfEVamu5X3lCM9K1Pntr Jbcf9bb6myJCAyJHqdB47jmPZ w b3J1UBDgxOW4TAKocPboYnEzd G93Oyc+FJBkqFhql3OjNslfa8 zbl2ykkGe1EfArBBOemnYewNb u ICM0l7MwQh12D74dTJarLAUwJ CEsNFCtDONehKvseb2egI4cXt 8+SDXdiVO2zFW4hZ3mPdAyJqG 2 GNylU599TqTvqEBjQvryl0ntn 8ddvQe8PpNsXPIznzRafDadTS T3b4MhXe27Y7KqhMosa8TvDid 0 rz88mBInw8X1wEK1C3ZhXKFcq mnntGDwcYgbAZ3wMNBrmasfYB UcaS5hFUSgH4n3OwVeGkA0ZMg u D5IqffS3CSYpvAXhVKFjiIJSw W4ruupjt7mknlrwRlUiFUOgSR q3UNj3HNPfdJkoNeFbXCN4DzH 2 XPE5sESqpW0wlYxaukgpxR5iW yc+OFc3a1lypICoZG0dwJL5BP 58FK45lZYuf9L7ePE0R5IoBHH p aaglkpncfVE0TYFiEMExzT57R m0asUgpWx8hDYQrJKI9HEWsgG SpI7HztB3yAoMaHFTtXUKiN2A l lLRoFRueO449JOmzPlR2NFPlv lZiZ3YpPPYfsTgeRjD6z1H5Mg 7BCY17OP18SW18dFYcq7I0jCW 9 L8AuVODevdouhpovzFK8TQLgT JKbeQ61Lt3efGnoWg1dSCCpAP K8JWSweDGfP2NymW5mCyNzNGF w MJPtM9UkaYAeXLwnN206GIuwV rR2HGUslhQhB5VuPKTpsLkxZt D8c5A9Nj1CGs63IE51GU43oOT g b1V6sCM4Q2TwXLKxdqqdzosgv OV8OYQaNCKzuA63Wr6jmIrlOz 9iLUGbWLJ8TACkyNEoS4TiqT7 y FdFmTUAiGVGvV3JvqMHdHGcgL 367UBkuByH9JOIrzuOgQ0UuDZ TciVwcLfV3x0M4Vg4CMOwfkha 8 R9NqOlwhvBM+MT76MHTvLS09n DImeVJrp7ppuBx4WjLfCWYtNW F7xPwuBTrrp7KjNXVvQ63yxYW w c2U6 (more content not included)... [facility] Consent for Treatmenton 12-03 Consent for Treatment [id number]#1.00CD:12 7 [facility] Multi-Wound Charton 12-31-19 Multi-Wound Chart [id number]#1.00CD:1 27 [facility] Nursing Note - Woundon 12-31 Nursing Note - Wound [id number]#1.00CD:1 27 [facility] Coding Summary.on 12-30-2022 Coding Summary. CD:[id number] Gh0bW w+PGhlYWQ+QF8YGNDoP45dwIX xvO0HL4uPYJ3ZIRWOZFPGEW4J MM1kzNG5ELwpI7EwzcUt DdjnvODhZK15FEf9EZA9sXppA XnuvK0axVSzF2p0EtWsHX32sT 57UGgqBLZfCcR5UqEbzwjypQU y T9pwHpIgwTRiLsp+PHRhYmxlI HdpZHRoPScxMDAlJyBzdHlsZT 7nTp8vRQIhIPEcgEllbNCnDbI j n5bkAVNiPEnbOK3mmGxpO0Iaz QD3DXJhe6x5Fk93hHQ+PHRkIH Y4mYdkCWbkr082FsYnb6diZYA 3 xMHgELwiKQF9Z91yo3Y1LQViE BTsKCH8wYP9gS0rhGpxwiaeM7 JeiEQqOaU4DWW4bDRabT9oaMe n wvqjyR8fZnf+G37AUI4WMBGWE F3CVky2T0DvRywxyCH+PC90YW QiEE54fLTclONnx7xnbDy8AqQ w IFLzRKW4mJeeJLpwo3CpXXAnM 80fbMGqu0X4MRRrzZdpiUUpIy NkvHG6xI5mTOzmjuvdk4urqhc n Gxkzu9lkbk10yL52A73pKOqiQ RWyNKJ1AJDuAEGynYmsjp9scX 9wIi8+RKygw7ivk9mtzCh2CiY w PSErmqPtyZqsRJZ4x6DoYi27D 7GupVvhs5BcBaa2an86mNZzi3 A6mPY3CIalFSHgfZ6jVNcxRaR 6 CVVjYdQlvH73fNBfVNqgGa9dk VehePogAS8lRLLnjtfrDLTlyX 1tYSUaeWAjsBsxOS0nTSPukmh m a299IvDmGLU8PEUkqTUsF0Lau A2iEiFcDYPvFWPiI4HokNUrXQ epD635NWstPxN5ZCCvwzZrU8W s XWZvzPdpJnX7y3H0Nj6Bo6Rjm zicTHM9HJniAEYeGmUjTtAgLi R3I4FhXxu4WNOzuZquND1aB0L h SZTseomebbxcuUM9CFHqEPNbu T12pQOoYNxoOl9pw9F2s672WW NjGZTreA75Mc4yeQoaZYAbaOM U fQ6dkrlqu8gnpgqdAyNmIHJnL Wt5XCu0KCRpfHlhLdHhSQE4Xv R6CBW8yGYhkW4qfAbgptzwaX2 w Oyc+I16wdL8qAZY4QVH9cikrI WRiysVnQY03TS99K1IsPphftK FibGU+NGSyfpObwQrvJW2sWnG j a9wsl9PeKZcoD7PgLVGjDGwjB fy4OKXhNPP4lSM9mQ2jVGKlII wku0F6mNY0Z2UawrAgmv4io4j s JLPvXCodJ40kzCMjd0I4UIFav JU1LGAwgAzwBsHzvG57Uya+PG HgkCgvz3DvIugsq8dby7uudPw 9 QtKnYEEdxiCszJkhXSV1f9DnM u51V38rXQpaWXRkGGBmUAIpPO TftZupmk4zjM1nJs6+PGNvbCB 3 nTO4uE3oXWAyZgP1EYehV339D cCpeZHaBgdfn9hiq8jstVj2Ew HsWCDpgiMhrQevFXB2w4FqQx2 8 C25gWJrkXLXrONWzEHUzSWXix Wnoeb9zdE5pMs9+CS9pz4uymc 15uI81aYZ+SCAsPDN6aGqsPMq w UFQaqG4jETrmQwK6RFVxVuFxl L28mPJdYPlnAi0mlQxvuFgvDC 2sQSIffszoy260YlZuu9zaKVK w zQSuRPafYTK1I20yd4B3WGQxI KIuZXR9uTH0aV2ubRxgopaseX HieEuackWkgNsqWQrgZTxrG10 6 IHRvcDsnPlBhdGllbnQgTmFtZ Le1I4SrFay7ICLaxGepMW6eqG JkSTybBt2igQxtrZzlDL8yOJH p msyir146YgYyh5ggAVJolOOzT HprAQH4A01rr1Y8LRIiURCyRL D6bXH9lT4gqXacsqxucGQvuGj g mgSokXnbXHisQAelC929ALGff XppPrHxjpIuGWVcpZZ2JO54MV 28oOYpx5T6uBH4F8QyYGEotze t jwywpPK5HDLaBQPhfE27Bm4xv EjiOf9yPDInSMR1MEVksMWiV1 DwhI9zVcWvOUEiQKRtU0GeoBZ t FNaiP656RQncGnF7QBWjwdJiN 1DvNWQwjUwzYmZ3m7W8Ug3RX8 J9OD45UG26sLJud8H3uUG6V9A h ZDJdeehldgfozVN0ARDjPTIgt H29Tz7ccHsjXu6cGNJmWWJ6BC XggTIvY8MteA4wExAxVIThSAX w L5MivZXrGXbcS973LFzaBfL6B JWtyvJlW1YaYZSxsXhaOkT5n3 I8Jm4HUDc5GA23BB00iQZqn7T 5 jZB8E2OtNHXqsfxnrmfojCI4W KOlFCQeeL72Ll4zkWwhVi6gMO ZaYYC7QVGeoRBqC8MmoR6aGvD j MADcQWTkX9PduHBaDNqeU163P FzpRiN4TYHpwxNrS4LqJDOkvX xrGdQ7o9K6Vt0FKYLbFI45JLZ 5 bXO6JA75KK85I4CuBplkjLIjb +PHRhYmxlIHdpZHRoPScxMD DjEyBcdDuaAN0dDh6iXLQaGKV v nZigqVZuSbLrl1dgVTZrFLnaN V6utEwsT4VseWM5WFCqc0i7Pg 79C32zQ7RirFH+CDXkiLV9xUZ 0 zB4kHhDgUoC2KRmiU967WcHsw KKoDajff5mft4ajoYv5CpL3EE ClxfAbuLrvRST5l2JwVj62R70 s IHdpZHRoPSIxNSUiIHZhbGlnb d4hsP2gEg1+REGbaIJ2vXA9mX 5yYgGsFpJ7XAtqF811CeXibGP v Wdquo3ilb3xtkNd2JbVmXURnn xLibQzzCGK8p2WsBc99I7OeaU mrb9SrJks3ue76uAYqu2R5jVK 9 J4OqFHErhjzxoDHozOntYW3fO FXwxamaOJIgeH4jKCWyK5y6Xi AkYjX2DQvhM5WxeyB3NPDhyCY g WHeeIFR9S41ni7H6OQHwJORdG GF6xKN5cE0uzOinnuydzLVlcF bcqiAasFatCJnsJRdeA780PCU v iDtbYTMmkQ3oLHTzsXPqjKbuW N2jWXLphncdMmMPJl1AMnogCD 2DLNyLCZf1N1FuBrf0XWQsySw s UR6xlBVhFPbuBj6peYwxxHsjN B9hZLLxhubgHSObvC6rHRXtwA MqdDozIZ9aZOWoumbaa509FpS x CWT6MYExaDTdX3AgfA6oZlDpY QMuTVDzT8GfpPYdBBqhD294UE poZdF7UVWaflSpB9CnUTMbqRv u FtO2n5P6Nt3iUl9ySX8sDCT6N B41GQ70xXOma0V1tWU3I8QoFE ZzzdsjbkdpnAH8DEKoAQBvyC3 7 sVOhQSayWq4xs4I5f498UOTqI SEylF93Zh0baLixCOWprXFMzO 0rfdlht2gypfpgJgHnDYNbNAw 0 WTl8BVBsyAdpSuWfHBD6QuH8F HH8zQKvtC4yhAbkfohqxX7zMp c+CxPyNCPjwfX4E9BlMvr3JOT z kMkkEE0rqBVfIYccVy9lqBvmc LdyNQ7tCAQcleqzSZMyxB9yIH WraEYdkIfeUW9eCOXajxhce01 0 TwDgZVU7CNLhlMSiU1LpyP5aA nCgAHPfDMFtR1ZjzXDpCNclK6 35GExlJvD6EECzmhEpX7WtUAU s lMsnHtT5e8F4Cy2DILpfHK47E C72iWPfm4K9uUA0N5ReTBKcas yscridhLV2BZYjAURsfM29qAK k DIraDi3jh8G0i087VRCmHXCzg P80Ci9uxCntMTJzzBIPuC2frv yth0fyudgiEkCmFLUaGFm3KZr 0 GDGawYikLmZmRUQ1JyK4MYS9d GZouI4dbRmniygsiS3rEbq+T3 Y6qLP2nZGubLjvxJH+NR64lt2 8 H7RmAddsTuj6YRNyYLS1qFQ0v W8pYKPdECblt0K8qOM3S3Pfml Pavl9rw8hcCGAcDWxvD82wgFG w i4S3HBXfyWC4AGXkyJloAlAsf G93Oyc+FYOovPyzq3InQqnca3 sge6pzpAa7PqAfHGQcuaAhsEm u DVJ9p6IoKj34H37tBWiwMSQoQ VEeAVXnJPKqfVjqxi0ngG0qBu 8+TAYfvFO8eMK0eG2fNmLhZgN 2 HBriB750KsQdcMWuAemfh4tbp 7akdHy4DwRtOIRgapLahWuzRD R5j2JjRr61Y6DdqEpva4MsWbu 0 wa23kRGxk5X6kCR0F8CnFBZav sijnHRcwTxqDE5yQAOxnxaqJL GrcV2zDISyH2u0EuGeAyS7WKb u L5KzbaO4YPWshVZwPMSuzVCFr Y1mjqcqu0fvmbxlEbJfORLeAP s2YPn1KHJgpQyqIxVcIHZ0ObE 2 VXH4gXXclE4urOvxssepcO9iP yc+XAy4e1wkiLNfVB4msNC8XK 10IM12uCFcr6P8lNJ1C4TsENR p bhctutzdmOU5FSSvKOPjzL61M k1kwIelUo6lGYHcUHX9NMKkpV XtP3EoqB4jJfEnYLZwQYYfK6N l xXVbCLibG259EOtnGfR0PODtt jFgO9YcADMwgGetSdW7p4E5An 4XNT52QW12DJ05bEToo6G6mWC 9 B5YnJJRczzzcwfaewAZ3FHJdL HExaN65Ry5zyXmuNb3iHSWdCG X4YJZppRFqI4YvcM2gYvZdYXP w ZPTpN4ZklZJhMHcgJ277KPigU iI8OQFnlqRyS0LdVBPtvPhrDd B3d0Y3Km1XMh33WW09ID71qVY g s3R3qBM2M7BpCUUebujwshouz WZ2KPQiAHCzeY11Pd2rhWsqVx 2aVXWbFNX6ELMkcSFgQ1TaiI6 y IwLiVGClJHFbI4TkbKFxKJglJ 726XNcnOcE9RYGygbCbI9GmIK BzwDbmHbH1a8S4Qg7LGQbpzzi 8 E7GvYmvqdCX+TJ98ZIFnOG09z PNnfNXjr8swhMg9KfUaSUIaDR C1kQmeTZfed9SaJSZhS01exRD w c2U6 (more content not included)... [facility] Coding Summary. CD:[id number]:[id number] Gh0bW w+PGhlYWQ+DM6OQEGjZ13cyUT ycX8TM5zOES3LVSEYNNRZSJ7I SW3ywHS1LLhjX6AqsyRc PjixgQKsCT02SIi1FHI8xAfuW KqfzD8lfXDyX5e0KsYmWW07vX 68SVbtBRNpLwC2VkMyngxsjLY y A4yhEpBuxZQdSyl+PHRhYmxlI HdpZHRoPScxMDAlJyBzdHlsZT 7qPx4oZXFgFLZlyQhalUIxQuY j g1uvIFDnJIaiHU4faVhdQ3Lyn IV1LIHtl3n5Wi09cIF+PHRkIH K5gZwxMMfzd093KuTuh3woLKA 3 qHKeBEnoLEP3T50qh9Z4QYSoF AVjYNT0dPZ3kQ1bzLgjeaarE0 InhGUcWkX1EBY9qGCejN5jxPy n farwjA9iVor+G45GIG0KHNVIE N3CPwv3S5OrIjrcnUI+PC90YW EdWG82uWHrxVGoi3euoZb1AyE w ADQqILF9xQqcVFvqb0EkPUYsD 31loYTof6R9EWVxkJxhnDIyPq XcwQN7mQ1gKNsxryerl4ieyek n Jqmtu6kkze39yM11J22pCNyqV QAjKFU2YOWaDWUpaPssuy2kkP 9wIi8+ICacu0poa1pdyCz5TtB w JSIxwnAgkOsdXXA0b3EvKs67D 1ObmFlcd3WaJmh5lv18oZHdi5 C1qLF9NXwkPQWszF6aPCuuApL 6 AYRcJmIeoP69aZGfHNwkMe0wb HzfkBxsVH4iTBWnuqpvCFVzmP 0zALRtfLTqaOfhHU1fWWOqyvo m v613VrVxDYP5AACziMHjO0Byt H5wGaAoQKSzRXBkB0VttXIuTN rkQ936RPzpSmD9YWCkzhCcI1N s PDEcsUpoPdB0t4W4Ph0Od3Dst quoQZG3YUptIZRpEkScXiDfOz F2P7LhZrm1VQQrfNcoLE7kS3Z h BYRlgvsutsrtiDB1MBVnXPSvv Z46bBDsQTyuQe9mr0X3x927DT RqCXQrlM31Ra9llLxnKNDrpVG U jS3igllsq8jhqvonNfTgIDOqQ Ic1SNw6JQUycTpvJpOrBCJ1Qn V7SHB0dMNbyU3wdXipvwqxaH5 w Oyc+J36ncY3pZBY8KBI9zkagD QAagpHlQG88DM94F4LmRjiylV FibGU+NURckiGhoNtsCL9dJfF j w8fyc1XjDPjxH7GkBIFtWLosX gw1AOUyNGQ8xTC9hD0qJRUcEO une6J1sXL7B2EjyrJxai2ar3p s DNYoKUfoT79yxFErz0B4RHMty AU3LZSakThxUjPxxK77Xai+PG DrfWwxu0GdIyulz3onv5zvsJh 9 KdPcUZTaafJhnTedAKR1h0YmL j54L80pUMsaPLRqHRBqRLWqFL BdsMrxgp6giQ6mTr1+PGNvbCB 3 xGO1zF3tUMDiInS6MVvcL237F hGiwXFjAyrhk2ptc1fnrSh8Ri WqBDGvteEytQwrSGZ7p2FdXv1 8 M04kRDlxLRBnPKEbDDZeLETsx Sbycd4hrF7dYk0+LS4je9jnvo 56tF04wYJ+ZBGaGHX8iVuvFEg w CINdcT5oRYdyHlK2QRCfLpZew Y14fKHgVKgeNl7laLllkGidPW 6wCMOtozvvi626PtUbs9inWNJ w jOStMGjrHFZ3J89zm2Z8WKLjK SBuIYD3vGF2kM0toJatjbvacC PteDdapjIvuXckQCwaYQjiA48 6 IHRvcDsnPlBhdGllbnQgTmFtZ Tl7X6XmLrj6OQMkuXkmAD4kmO QtNTqgQy6hgWdlgKxtXF3tFYT p sgcrk168QhEbm3jtTOTbiGLwR ZlzAPV0W08xr6G0ZSXyMAXiHW H0iMB1jR1dcHsbthpnmYNafPq g egDpsUpjTMeoXKzhQ574GNFkr MnqRvLpysBrKRXovFF6ZA85XE 86vBIqt1I3hJI7Z1JhRFPyhyj t dmxdiOI9WVEeYBVxlW87Fg8ul IlpZo4iWJOuALF6FJMbrBJqQ2 TjaS6aCrFqGXUoXXQbD2ZvaMR t LPfcT611AMctCkT7YIAzpkQoI 2PyOWVhlFudUkI5p8S2Wp4VZ2 F4HW91PF66nBPlx0P6hUH7N8Y h JYQpwpuzbolieQY5LLUkFGPlm Y58Rm8vgKvcXg9rRHElZUC1MX QmkLZxG7IkdQ7nWhAxVKXqGCT w E3EphUNdNUnbC859TVkfOdL0T ERmhyYoX0VcTKMfyDgtPpZ3e3 C2Jb7MMPo6BW70WV33aVWtz0Q 5 pWY2V2VzXWAensamfsiygOF7M CLsYGYtsM39Hm8ykArrQx9bBJ FgJZP1HDKxhOZiP7DtvX4aRnI j FUJfYUKxK1CckZNbBEnpG503K NosJgC3MMGmpeHwK7AnDRTcfX dfVdG8z8B3My0ZGPAjRH45CVX 5 bKY1XX41DY00B7EcItourSIif +PHRhYmxlIHdpZHRoPScxMD JgMxEldDljCB3yVt5vEKFoVWC v pSxknSJcPpMgb7tbPOTmXIpgU E4cmKusC9SxaJM5TELls8u7Wl 79C59iU5VnwFI+GGPbtVI8dYZ 0 zY1wSzHvTyU6XWhfK458DwKfi TShJouzb8bio8rspIu0MtU7CT LiadYsmBoxBXV7r5JgOv06G40 s IHdpZHRoPSIxNSUiIHZhbGlnb y9zgV4hUk2+WJHedOV6uSX6vC 8tZfXkViF2HCwdZ976LcShlOY v Dcavl5rlh5dwvPp3BlJcWYHlg sLjlQydKWT7o6JpLm10V2WasM ggi8TnPqj4zj98jXPov7F1vIK 9 J4SnHNKvzhogvGIgnUrmCA2eD YNuhijcATKsrN1oXOUaU0p6Wg WkYhD2RWlpO8LaxsV5ASAhaTE g RXvqTQC8Q04hm8H2VXFsWJYyD MP5vVO8mY1ieBmcbigioRLdjG jhyhGpwGtmTMkzZTjhY183TPD v qZwsTWPoeK9gHKRwzLVxlLkpE P3sMXAuhvjdRiQKDn1JEkrpWL 2EUHbRXGi1Z7MrZym0QTFspAw s PJ7tqKLoGMxwEi0yhInuvTvhA I9cKXPmskpiCBQwcQ8nZEYyeY IkhXbbVI2mXZQrrlbtv158KhC x YXN2JJKdxYPkJ3JlcJ8fLbGtZ GPvOQKtJ2EwwKNsBXocY269GF kwGeC3CDIttxWdP1DwIXRnqDh u ZvI3f5J8Oj4bIb7mBS7nXJW5W N17XQ96rNFdp2C2zPU3N3VuHG DkfhvcrirelJI2IXAjRKDzfB8 7 pZYdPUvgTv0ki3E6a131QRCkW VNpdG08Vy3pyTpeFCCadHFHdN 4attump9srdrroYhPcZNLtOTs 0 RUn7EJHvfYwvNmSlZVE4DuE7Y GO8nGOlqH0cdRsneeilbR6hQc c+DpSvRUPgaiY7B0ZcSsj6FPX z wXbnDI2pqNZhIObfFj3vjXfiw PyqCS4mGWBcsvtsOXLjrB5kNA ZekEDcnTuzZF1kWIGhdtlth02 0 QsTbRMX5CURgkGVfT9HcxY1kR zJjIOUmQOWhE4VimHNbNHgdK7 50VTtbZbZ1RMUcrhPkQ5OtAEO s eUeaObY8n4Z4Oc5XCEzfPX06X G50xYZpc9X4cEN5W8IvAZGbxn ueedrwjYG4RCYrKEPgmJ27aYH k IKfxMm7kq5L3u081XZAhAUVww T22Wp1jwSyiTZStnFNCnY1sbe ijl5fdittwLvSyOYGpLKs2WAi 0 KLPmrGhvWkZmMSB0XkP9ANZ6j DCogJ5aeUzmhknpvL9gIyw+T3 X2lHY0uBKrhIvbwQB+XC66nt6 8 G5EnEtadJhb2WQJoCSX0wEP9m N4nAWIeGXbfj7S8nXL7Z0Idzr Brpb9lr8xyHUEtBTpyC35cgXO w h6H0TDCvjHE9UUWeiHszLkTvr G93Oyc+PGZsnWlwp0WpOdnde3 rgy2vdiUn0ToExENTncsYxsFb u SPO6y6UvCa79Y11zRHxvJCQzJ IAtJZZxRQBkrZunyq3gvK5uYu 8+ZRZqdIL0nHM2uY8wNyAhSeL 2 OGaoW616NqQgeLJoAdcxm1jlx 7vkuVu0KzWxKRStfsWvkHdiNE S7e1OsAw67T4SdlVwyl5SgOgv 0 qi20xZXpt5J1lYM1M4RyZUWrw rfdvOHyoQsqST3fIXSoqneqLA FmcV9sFUWyP2c4HzLdLgD6SOi u C6LtksZ7RBImbEPrNIIoxKDRu X0jhcjte4nawuuqEjEiCYLgSN t2NZp7WNPpfBnuLeJpCEZ1ViO 2 MUN1mDPnvE8jeOzrulnphP6cF yc+XVr2c8ognWLtIC9ylKK6IF 89AM07mVWiy0S7sOK8O5FmNII p jigkkjdwmBD4QEIeLQHlzM78U e0rfTozCr0cQWTdSRN7JCOckI WuT2VvaF6lSkBfRELkIMPjY6K l bJWpDJsxI986DJpjSdT7MSOxp eUfF9AxOHDkdTyaVhW0y9V8Wf 8EIB07OD18DM28uLJzd7G0nHD 9 B4EsHKWjilsuftusqWP2TKXvA NJrdE17Xt1xyUpkGb5tQFIyKN K2EZHhqKHfM5QzfA8uRjWiQCZ w SWZdM9IriYEuWDutI065BImoA bR4LIIqjpDgU7AlQYIzaMdaVw A9n7U2Yv7USz70LN75TV94bZW g j8N2uUP9B1QuYMKtgdupwamiz HV3YEUjCBPpsP64Cg7nsKnfWi 0vZTSiWSA0SLYnkYPuI1YsbG6 y HwBlKVMvQTOiW6EtgCHuDFjzB 913SJdnFsH7CGAdrcOrG9PyMN NwySnhCsK6y5Q2Fk3SZOgvwtb 8 I8BvBwngmKP+BJ91DAUiOT79i FOokAGii9oklTp1CkWyBXIyBT G7wGliSSweh3ArAJWdZ79yzBK w c2U6 (more content not included)... Normal [facility] Coding Summary. CD:[id number]:[id number] Gh0bW w+PGhlYWQ+JO5DEKEtA94gyGD kjM8HA0mLQZ4HQBZUAWNEDD4N JX6bpNO5DWkfT4EqvtVm OguktHDuKG36RIx6UVI7mYkbM EyqlO6abJYuW3z3GwPjHZ81xG 21ADmgBHSaBqI5KjIsbmndvLG y T7clQfRvpDZrAjx+PHRhYmxlI HdpZHRoPScxMDAlJyBzdHlsZT 3sSs1aZYLtPFYoyCntcZNuUzM j j8seXIHwVDzmKL6oyImwJ4Bvp LX8WMMqa1a3Zh89kCT+PHRkIH L8vMuyNHbhv468UfWrj8fhSTS 3 uVVwJIeyZEP3C44qf9G9WYLsL KPrCFK9wXO8nQ2lyDnusdaxT7 TjeQPzVhJ3QBT4aNWrrM5lbBr n qijloM3lTjh+M12UBK4ZJTPRG U0YPhc8C2WgUpgblMI+PC90YW WqDA19iCCfyFMdu0fwhMa5JzO w KNEqNXB7qGtyDKrnx9WeIGBfY 19bcVIsp4B4JYUwhCknrAGaQm TtoCI3cX1cIIivkeugf7hfwiw n Dzplu3azpu09bY13V58dPSdrT HDiQEM9OPPgUKInuQrwjf4qtV 9wIi8+UPrhc4aaf4heiCk1WnL w SPIjczVvcYvzQTV0c9PoXe62Z 3VpvBtqm4JpBen9uj50qGGpk0 N0nEA6FGevZHGttN8fMQdxTfX 6 NZCzPoQokQ40nCZdFVyjRf2fp FqtuTjwSH1xHLFpethtBWHjuP 1qHJAkgKUycStdQA2lBFDfqmf m o252LoVbPBL6VJJgdKNsL3Gji A2cZeTiBIUjTPTzW0DwrFHsXT asR624DSygXsH2TAVbxvMdH4D s QORhjNdtItE6z7J7Iq5Va1Pxu uisMWH6WAwfPLUhFoQfKoQfLa X7V2TdQeq2VALesQyzNE6aP8G h CYAwxvzifpiktAG1NQArARTng Y29fJPyFQhkAo5zy0L1g491TW XjRVAybN58Zv1jtUlwCLZnnBC U iH4vuqqqr2jpjephBsIzOVZsQ Vc4WOp8BGTvvIwsXpSfWRM0Ue N5MWQ5rRQvwB4eaJqpkvkggP2 w Oyc+Y97lyA3nZSW0XTS0issqD LPrhyUrFD96UR98T8QsIclocI FibGU+DQMjvxTiiBhcMJ2tDgJ j w1rbt1UfNRjrE2XxWELjJArlP oi3IQRvVBK1gTN1tZ3bAJBqXQ bhw9V9bRX1W6GyscXjas2bn3b s LAOzHYauJ23qyRCoc4E2OXVqc UD7EBWbtIorRxJgrI23Naj+PG TwnUwjo1WnJqqps6gqv8ysoUp 9 QzKoJCJaaeNvkDfsWOU4x8JlJ p78K54uDJlfVPAnBLUmLAHyIP MijIwgqj2yrB5jGj5+PGNvbCB 3 yXD8kI7cBQQyAyE6XKaaQ928L lJctXAoAftmq9gkv5molCw0Qd MhNJNabcZxjDifMUR8u0XqCc1 8 D69fMFziOOPeOIDkCXMpLXQwm Dbfdd4kfO2aLb9+IJ0hh5bgly 43rR69nMY+HSPbRSX0hQofFVd w DEKiqI6zTMbqTkX1TKOvHqHib D31cZAuRYtrHa7iwAmrzPlaLO 8pCWHnmqviq887YjCuj0nwSJA w iRXqHBnuFWP0Q90lz7B4DGKrH RFbCIT9yUY9mW3rzHbcgvcdgB FjcTigmmPonPecWHqlCJhuF80 6 IHRvcDsnPlBhdGllbnQgTmFtZ Cv5K3RzGlq8XSQfpNcrSG7ndK RhDTfcHw2wkIcfgNdyHJ1uHGV p tvgfv538JiBwu2oiNVXefWGzX WhfMQQ0T97bz7R6YZQmELCuUC L0vWW3cW5lcAlkdeqoqWQmeXo g jnJvuMbnVWfjNDriB498IZSja ZdlWgXptaHoGNOjxNU7LY15BP 11iYFsc1K0oVV8Y1UhZTWexiy t dofvjMY7ZPXjFMUzuL68Wp2fo GtiOh5fHPSfTDF4DSMqtRQwF3 HnlM1xZwJdAGQjPKQtY7AfrBB t ODmsK828XLqfPeY1RSBwhdBbH 9NtDDWetXdjYyR9a7N7Fd1XT4 R2RN28FZ98lZZyk3Y8iIX5Y0Z h DINsypizpjjmsPC9PGUhLOLro Z62Yq8gcYlcIb9tBOLhMLE9TZ LfdXEfG6BstX5hMrPuRJMaYMM w B7RvdEOyLCkfH297OXusOdK5Q YStnrFbC6RxTEVzxZgnJjR0n0 Q5Dr5TMZj2VU38DV47zGHor3P 5 uLO8A0RwDHHhmuuxnxaobKG4P ELxARYwjM10Bp3seLpwHt2rZZ HaUPM6SMGfqFHmG0QkxZ6sOqT j GNQkRYTeC4AvtZSyPMlhF572L AviJlS6QAEjxoHhD2XcEKWchC jiVtB6o0Z6Mt9ZTZPvAG16XXC 5 fKV3CA37QQ40I8HsUhwcmCKri +PHRhYmxlIHdpZHRoPScxMD LaTjMldUwyRH9yNc6yXSIuHHK v uAeudTZzLeNbp0apCMLlVVvrK O0woPhpQ3HswYU0XRRxg1v1Xm 41W65iF3TggRL+GKDnfMD6hZZ 0 wO7vSwVyMnN5XKnnR702AvZyw OTxFcnnf7pny3aqyOi9PdY8RC JcafGpvTykDGW5v6UpEo34M61 s IHdpZHRoPSIxNSUiIHZhbGlnb c5njT1pRh8+CLSarPD2kMI7sF 4aPaCqIfW3OHzrP454GvZjmXG v Uuojz2den6yxbOs8IxLlYALju pShdZdeRIJ7z0PcZa16N7YkhW bit2NrWmk0kf84kHCaj5R7lLP 9 R1EbKARnvothzYRtfDgdRF0oT MQdipgsHKBbwO2oAOEuV0v8Fq EbCmU7KOfcV9HpxeS3XKYdhDI g EAofRHC4R11cc5S7PQXaJAMuA LY9dON7sK8xhFduwtmhxLDdyK yntfRkgBctZXlnKErjP694EMP v sEmpTNOpvT0oNIRosOVqrKoyW Z6rSBVkeaydSvOHZt4LZiyoOW 3VKWhACCi4O6LxGue7AQHbaWo s LP5pbHStLBzvDi6kqVtbqAwyV T6iZSDnceqfDYZpiS8mLYYioR QasDiiSE2uIFHpuiekv088HxS x IZR0OVEnhXVvL2FhhS1tXlGmE QDbXYWoW2PgiCKaCOqgP136FV wrXpM5EFQragMkW4AiFZYxzDo u LkC5l1F8Ll0wAs8dZY8nRKO6Z C15AV03vWIbn3A9yYH8W7XlEX ZakimnswiwiMU9CEQdGGDfyH6 7 kQKuESngDs9ye5I4v190GAVfL JMxcU07Rc7lhKmdPWLwpIEPaO 4avigql0pjsdlkPeZgFMUbXTh 0 IVy8FBDrqLczDvPtZVS2YrK9W DY8xWJwtH4yuXzesrmabN0wDt c+UpLxXAAwrnV7N2JxSsb1HYY z iRgwWX3zrVLzJYjxHb7gfPhdn GhoKD7jPRLjhioaTENjqT4lIA ZveDLjbZupCK1hNMUvlvvex11 0 ZiXuSYY6QJZicWKxW5JkzK3oR zZdEIKcVPZyK4IomDIpESmvC0 15OWibXvJ4TVYihqDaC2GbBQU s dOptHuJ0v9O3Tx8YMKbwBZ69W G77aDLii9Y0xMJ2W7IaHBMxje lamieimOQ5BHPnTBWomE04tZH k QKdaXp1ax8G0g222MNBnNAWml B79Gy1awScaGONyxQOAdM5vwg uao7bezmxaOnJtRTLuYNq4DTl 0 XYGgdZqsVoYnIMZ1BrQ4SMM5g HUvbT8gvHsdsulnwH7aSni+T3 C5bHE8pWHimYhdqCI+DJ23yu2 8 F3KyEynjAcu1FHYzIWE8tTA6g B0uHXBsAGphd3O6nAK9H4Wygh Jblp0we0slEUNwGGouI81wnVO w p5D1GFUrbIB9TDUpmGcmYaLle G93Oyc+XKTdlTopk8QbEisch4 idn9wrrHv5OdPuKSQtiiSeoSf u LTX8p4WtPo17T67hCUpfWMRxJ NYiXWEnFHEtwHjtpt9ekC6qPi 8+VYCzaZD7uHK1nE0iGeHqEeO 2 FLujG796GeMbtOPaPztbd4dly 2vuvIh7ZsCrBEGfuvTrwCrkSK Z9f6OtVk52Z9HpuZalw3RsFys 0 ro49nFUut1Y8fIV1B0MmAOLue qdeyOResKpvDP7wLFYbmgqxRJ DpsN5xQNKqH9k7MpHuXvH2YVp u O5DfseP8SAWchDHdFDVjkEYNh M8sppyak1jzmzolKdPmMIFwGS t2MVk4BUNffSwyNdYvYYG8NlW 2 OIM9rBNtiU6tqOvdhtxmeX5xI yc+HQa7w5wjxCTsHB6ohCR9LH 15MN45wCBgu9W5zNK3Z3FeLGM p xxeofpbbpPL8MWNsCRLasS11Z g6buKlzBh7vKGCkVKC9MXLdvC RtC7BybJ4bCtFzHBAqUFLyL7X l wFPiCTrsT311TBzkRkX9FYHhd xNlS8AxKVWhaQnrPhP5g6T9Hi 7UYO03MZ72TD43jMKbg2Y8yDK 9 D5LoXOLkdmgahvftmUS0YYUxS NUalV84Vb7vsEjkPm4oACUuPH D6BIWyeXFqC7XgrI5xWqDsLEO w GFGsO4TeyGToBVyaS048MEfyU tL4DEMdnsWjQ6AkVOHvvJbrLm P5u7K0Zz1UXu02JV40LM90vWI g b7S0sQU8N5CtWSPgoqatqcpaa EA6LRSnOLXfzT67Tj0iiDijRf 6aHQFiQOA0ETDqnCBsY2GagC5 y GmXpYZLsINWdV5PtgDLfVSojA 468BYsfXmO4GCNqwzKxG3PoUM XegObuYoG7q5Z8Bd8SRXqxmxf 8 X5VmKqazeDN+DT07SVBxDE00z NSfaYNus8rnkDr8SbMkZPCbLF I8sWszENxpt5XuUHYgA22hgTW w c2U6 (more content not included)... Normal [facility] Physician Orderon 12-30-2022 Physician Order [id number]#1.00CD:1 27 [facility] Procedure - Woundon 12-30-19 Procedure - Wound [id number]#1.00CD:1 27 [facility] Consent for Treatmenton 12-02 Consent for Treatment [id number]#1.00CD:12 7 [facility] Multi-Wound Charton 12-27-19 23 Multi-Wound Chart [id number]#1.00CD:1 27 [facility] Nursing Note - Woundon 12-27 Nursing Note - Wound [id number]#2.00CD:1 27 [facility] Consent for Treatmenton 12-02 Consent for Treatment [id number]#1.00CD:12 7 [facility] Multi-Wound Charton 12-24-19 Multi-Wound Chart [id number]#1.00CD:1 27 [facility] Nursing Note - Woundon 12-24 Nursing Note - Wound [id number]#1.00CD:1 27 [facility] Physician Orderon 12-24-2022 Physician Order [id number]#1.00CD:1 27 [facility] Procedure - Woundon 12-24-19 Procedure - Wound [id number]#1.00CD:1 27 [facility] Coding Summary.on 12-20-2022 Coding Summary. CD:[id number] Gh0bW w+PGhlYWQ+VI1FBXLiH66ptFB rbP9FB3pZAT5DVGPUSAOTUZ3X HD6yaEE9SKelJ9BlodLv BorviUHhVD55IPk2CBT2gSamI AazcN6bdULhH3h6VkQjUH41pC 02TJxyQOLmSvR1XuMgfuzsmHX y U7baWtMouBGxUpn+PHRhYmxlI HdpZHRoPScxMDAlJyBzdHlsZT 7rIi2vXFLyWXOvpRhmmCUsRjF j z6wbPIZxKCgoWO3rkLqrO4Uhw RY5OOSte3i2Pu73nGA+PHRkIH V4zSnzDUnlp162QaZah2ejTKD 3 bBSpCZgdQEY8J68bg9U6RUPgD DPqLFQ6sNN7fP2amMjuapslT9 EbtACgOjZ4QYQ0aBDyeZ2gtDy n yjohcV7iPov+N42VBM4ZCVRQI J6UPac3S3ZuTpbunOZ+PC90YW AxIC58uISucRBnv6yunOf0BeB w LGEhBUG8tFjyQXfvj0PiFBUzF 13upSQrt5T9ZUDnxUdawNVvWy GkjHA9aB0lHGzfwwizy1bhioz n Sagqc2msua87qX64P70wYIwlB BRfZEM1XAGzOEZdzVvapd6enR 9wIi8+JNbfv2trs7jlxBk1CxD w LGYtcnXdqWxjQHB3g8ApWu84I 4ElhWqit9VzGtf9lq76wGUks4 Q4lQM0HJsqPXHnyI6cVUpkQyK 6 HITxDuGlrX83bINyGIqzSr1qy MmlaXwrFI6nNMBvdmjxOFVesZ 1sSSRylXMwtLhuGB5xXZPmqqp m u752ZjCbNNO3MORwdRBcQ3Emh D4lQcByXTYqRXCuY6HwnCHqQM jsK156DYliGqD0KXHdooWoQ5B s XKKwvRfaEqX2y6E5Vk9Kk7Mst axvLNR1YBbjVIMtKcTdErJiBr E7H1CjEos8YEJcgAwrPH2fW6B h OSXtmifshlcjpOV3YSGuLZYbp Y49bBUvGReoEu5fb1C2f642BG MwNKNixB25Az0thPrnUGSxjKQ U kZ2hdfurp9hmtxpyOqDxQLWpE Fn7LUe9WMOqdYbhNkRjZSA1Ip T9DUG3pMTfvX8emToweinqnR8 w Oyc+F65iaN5fZAJ0CTB9sutgN VCqooVmOU34TH00C6VxXzorcL FibGU+XGRtnbIuuJufFO6eNeG j i9dqr6XyHXlxK3UyDSSdFZjbR tw0GDPtBAI9oDQ7iP6eZQUcXL oma3O6kYN0K0MoipGvff0ge9e s ETLcQXweA80uhCGmw0F6VTFep DM2WHYdbCtxBnUmjF23Lsu+PG CnyQrdg9PaDqmvp1ikf7hduGo 9 DnFlNQZuemVmbGimAZT7n2SeT i61O99jUKcqQAWfUAYoWQIuND ZkdHpzhh2teF7uCr5+PGNvbCB 3 yIJ5lS1xJNFvUrV9ZCfvO161Q nTxnVUaGvniu2hmd0awwDv3As RxBQYbnmJrsManTXR8c3TdIf2 8 K40oILzqGTUuTNOqPTQbHNFeh Biqpo1peG4lAu8+RA9ys9kpqt 06dT93sVQ+IOMwUGZ5dVcqVVr w EGZxdS8rJWhkQyT4FLGrJrJfz P30aQRgREpyLw6fcRfedSauGH 8qQMErkuhhk101ZzOpd8xwZNL w aJFgJMmhNRE1Q05wj2H1YVIgP CGyNJZ6xJO7kL4jcMxydmhkkE OrsWuwtiWyfZoeZTvsUBubO42 6 IHRvcDsnPlBhdGllbnQgTmFtZ Ut1D5VvXmi7KVQgtUvwRU6ioX FtTFuqQe2omNiwoQzwZE4lYCK p groeu533GdWkk4vnNPCwlLFgM SvfDUB2V07ib5D1XOYdTRJcBT O3gAX1hB8kuKaurlesqIVbrYo g weIhgDwbEQmbZDuoR412UFSxd GyoIlFteeWvSXBfrJD8HV67DP 90hCZcx7O5wRM7F8ThOVNswsw t oxvezBJ5EAMvYMErfU78Ai4pm KsfAj2xTSPrBNF2ZKRmsFSzD6 NcpI7fEpUgVPHqGOOzJ6SoqDZ t JLhzS073HZguVnN1ZETzmiTrJ 7KiCGEofBxjQtW4q6U1Tv2ZZ6 S3ML59UR35aFAtu8A1vEV2N1C h KTFjajnahjiybAI1QJHzYRMgw C39Oa1ptPcaPy8zBHNuUTO6PY KyrFRfX8OmwG8rLiMdCRQoGDW w T5JmdFUfQPgaW545OBwbRgD7L FNgltIyT7EfFSDhkKfkZgT3x7 F7Le1STIp9IP02LW89aCCcs2Z 5 eOC9L3EpLMLaesfzgavwxVZ1H OWmVZImoF53Mb1kcMbqAz1nGB DaXUZ7DLRlxFXhV3MyhW8bAtC j DVCpKCHiP7TviHPeCNmjG778T XkcGtA4POUycgYgY0ZyEOLbgK vyJnA9h0T0Pv4NDJFvDR05RIO 5 fEP1AL84MB07N2SpQzrphJVoc +PHRhYmxlIHdpZHRoPScxMD VkEyWdyGemGX3wFa1gDVJjPTD v pHsveIWyZwEub9flEIHeIWpfW L6vkBejL8GicDX4GQTqi6q4Ps 15I70mT0LbgWR+CUDemHS6eVD 0 bL7mZcCuNxR2WLxeI305TxSld VSnZwcjc4aop2kerWc6XsD0AN AoeeIwpJloFUN0l7GoGq17F11 s IHdpZHRoPSIxNSUiIHZhbGlnb r7kdK2yIx9+EGQmvPH1xGM3vT 4vTrFoXpF4FHahB915HlFnjFA v Qrtfw4mjc1bidEv2IwYiDCKqo vApzXvnLSR9s1CuCz04H7TxjY pwu2VaShh6vb42uTAus6K9tMK 9 L7HiYGZghiuwgWVcdShwKI7kZ RLyzbnmQYFzbV3nZAQcY9z4Zw KrDbL5IDdaK2NaleV3HLHubON g SBvsJQE2C43xd1T6KSQqSBYhX QW2kJJ8qS3iyPeajlximGGwyF weblDxwGtcSLrlJHszQ984FMQ v iYmtBYLsaK4pUBSjcUPpjZncK Y6zNPZkvtkcBvSMAu9RRsvoDA 1JOWhYIJv3G6GvAij5QGVvfBe s MI4tlAXlEVtrXo4owWkgwKtsD P2sKMEvwfpgYDOrnX2mBVGpkA CfhMcnBX3ePNNijnurn680WrV x QJB7CIHptPLlQ5CqzP9eUsUlE VTlJJUzB3LdtYBySWfqO050TZ faRcQ9NYJnoxAiB0CyGLEhzId u DoO1y6Q3Zk5tGa4pWK8aDNF6R R17QH03nTGsp0J2lUO0S1WkDX BshiopsewfmPE2ZZYqIIVcuS0 7 sYXfMCqiPu8da0C1r576ILIyB GBgpD90Nw7gvHhcDCRawBXEkM 3fazdbw0zlnnqiVtGjPZGuEUi 0 RVe4JPQvwMnnOvZbTOJ8XrQ4Z VW7wKFenU1jbYvoyfsttM7eVd c+JxZxXAUhhrS9N3QaHqa7FKB z oVjyQQ5mfZEnOShlAi3izGdov JneZM7hXFTaggtsSZWloN5aNY TmnTLfvTypXM7kHFCrmuqtb76 0 OpHoUHR0MLJwaCAtV1QpmV5rG bAeFWMiQXUcM2YopMMxHSulE5 93TGdnFxC8YAOrftDaJ6DrUYL s kXcrLzI7g0Z1Rh3IESbzRI41J T85fBIpq2R6wDB0F8ZaCJDyps cylnsezBP3CYYpFBBnkT23qSQ k YPreOp4xq6V3a834PPOgLFJkl E12Fy8bmZhvPSHtsZCOcB8xku iga5kiezvnBnHyEDSkDEj2WCh 0 RGBvpLlpXkVsVSG3NjY8EEF8i ZEfbH3puXwzklmqjA6uEge+T3 Q0eIV9zWFziXappTT+BQ85ed0 8 N3SsAouxHdx6UFSaNLE8qSJ1j H1qZTGsRSaiv3G0aIJ9I7Cspy Bsvb3vp9vvTDHuJJwqR70kqDY w f8T7QHOtmCA9RADcxQlxVqNws G93Oyc+BGKukKeuz5DiWwuid8 igo5varUc0YmLqJTTqagWwmXd u NST5l8YtJq31O04wXOikFXKvP NThUEYsSTGrlJybsb2ijK0sYk 8+QGCxjIW2gEK2nA0cVcOnEdR 2 DNtxV160GwIfcGMkPehch7vaf 7npnQt1BcQoONHucgCklVjsXL D8j9XsRx33A7HhzFmkp4NgUgs 0 cb92gUYtb5F5nBY2V6QyWTQmi ngidHFfmDhlCP4nICPjdjtoXJ YvjK5tKUYqO2s2WoQxEsR8NBo u L0NaqwL4EFBchSUnKTVsdZNAz H5rfrvah9prjiogPlDvEKBhZV e6GXv0BIQjhOdgEkAbYVQ4ZeA 2 JVR5kEBwtJ5ixJcnbqdmsG0iC yc+MOk8a5xzyHYxCO8skAE5ME 67KA63sNUtf4C4nVV6F6FyVNL p aqrcojbdgAA2EVAvUEVvvA32Y m8ucBnnCj7eVEKeOAV3FQUsyJ SvQ6GrbM7lUrMvXEYwWZKeQ3O l sZKfOVvlZ495YBzwAoX3UAOxy kEaH4OlJCGnlDncXvN0k0G2Nm 2XNE79BK89YQ93sDIjr3Q4uUP 9 W7NzLTRvtjwdbzkqmIU6IGEiT UDvkN91Gw6sqHbeBt5iOBKuMV Z6DQGbcBPbV0UofU4yWaUqCWK w QIAvD7YmrSBiCKtkS049XAtbK lO8LHTsczJuF9TpYLYgzNwuEh Q1z4Z5Lz3QMi87EO02PB52wFO g v3D2qHS9B6GzEIIzkhutooccg YV7WDLgVQExxX52Zr0pcNraIr 1cMGXwCIW2KWCfmUMuQ6BijI1 y JpJcYKIhHGZnC3RnrISpQAaaT 371MFclStB8PWYyerStI4MrAE TvjFncWvW9j1T7Qx9UVLjwrcz 8 K5FdWcpmfEI+PP69DCObGG45n YRqdHPcw2cfiQu1CeShSFGrIT O0gGyrMZbgc5LzVRZwQ21toMH w c2U6 (more content not included)... Normal [facility] Consent for Treatmenton 12-01 Consent for Treatment [id number]#1.00CD:12 7 [facility] Multi-Wound Charton 12-17-19 Multi-Wound Chart [id number]#1.00CD:1 27 [facility] Nursing Assessment - Woundon 12-17-2022 Nursing Assessment - Wound [id number]#1.00CD:1 27 [facility] Nursing Note - Woundon 12-17 Nursing Note - Wound [id number]#1.00CD:1 27 [facility] Physician Orderon 12-17-2022 Physician Order [id number]#1.00CD:1 27 [facility] Procedure - Woundon 12-17-19 Procedure - Wound [id number]#1.00CD:1 27 [facility] Progress Note - Woundon 12-01 Progress Note - Wound [id number]#1.00CD:1 27 [facility] Coding Summary.on 12-12-2022 Coding Summary. CD:[id number] Gh0bW w+PGhlYWQ+GX6FWLLyC68trKC dsD5YI3eSIV2VYAOKVLMFED6Q PA2piWX5BAktE9AomvKj VjephQSwVJ63NLd3RFI5cQekB UzekU0vxCOvO7t0XrNbBP42xO 77AYtfMSFiDiD8QaZpjzsrbUE y M1xvPdEdmIKuGry+PHRhYmxlI HdpZHRoPScxMDAlJyBzdHlsZT 8hMq9xXFRuASNpoYgutXZrJgH j d8ojGBMcNHtuIQ8znYfxB0Ehh GA0CBHsu4w7Dx34tDY+PHRkIH K0lMzfIIbci979CsYef8dmGMY 3 uXFlGKyrKPZ2T30mg2P0KXZqR RHsMFX8rUN0mH3laIeydywmE3 VavZYrAiS9MAT8cBPokZ7lnIb n xijjpB7cRhg+M90NCU6ZLJTEA V8VDhl0E0QcJmqxuNI+PC90YW XmRD35dGXolSUou3zttOa9UjH w ALKmGYQ4sNzfECpnb3TmBRLnX 82ddJOkt7Q4THJevKoynTCnWk HhbFP8xW9rSAltkceio9lnkpf n Koics0lipm01cR99V07oDLxwV NHlBJL7VAJwBJGeyAdftu0xuI 9wIi8+FIhnw8ygy8kgsBr6YmZ w IPGviyZeiWngTKT0o7BqJt62N 3RqeFvdt0LcLdx5zl16jDXea9 F5zIC6AGzcZDTftC8wXGmwYvN 6 LTKkEiGvdC48fFFnXPqnOt1mo KpkoSzzXQ1bRFFfnnxmFQTgpE 2wHETurAFgnThcYR7xMYCvhny m t967KhOjBCS6KZPxxIIqN0Gfs A5bDxCsYLKkJIPyT4BxkYVaPU teA698NDncBmT8NIUtndVkC6X s AOPitDzjMnX3t5B6Ms8Mo8Mdb kaiWEJ9DUjmYQIaKbHjRqYxTd P6S1FqIpr7MTYgwNexIL0fZ1B h NNCewlofwvvxtEZ9YVQdKSXag A36qRXwXBcsHe4zl7R4j844OW NlKOFpfY41Rq3liOswVNJezEU U wF2zeayqw9jhefldHwUyWJTeG Ia4OPl4JKUepXbmVuMeFBZ4Ws U4SQI7fTEbiQ7yvHqehukqnO3 w Oyc+F97icN4iEVR9AYW4poheE JAawmNaXV80OI43E4UgKapilK FibGU+DWIzliWrzVxcIB9fOmI j m7ucn8KqQPxsL8HbDPJnMNrhJ ht6QWTzKLZ0rBN2kV3nNBHyOQ umr8B0wXG5U7KwyyLjlb1dz6s s PYZqSJneB34emXMnp4H2UPTta ZV2GFDqyWwdKdVlkV09Kxz+PG WnyOnbp3LaAetnm5tqw8bzkPo 9 DnRbWKDhcnMreQrpAHS6f0ZmG f71W95fHCtwDOBcAGNwEJHfXO WghWcsum9maO3pHk8+PGNvbCB 3 tWS1dA8qIGElLgH9FYazO649X wBuuTLeJhfsq6dnn0vtlRu9Ow ErJXFebeGayLmuEQG4a3CoVu6 8 B80qFRxeGWXmKLIhDXRjZVMpd Knxue4heL3aCw3+AL2jx5hdys 97kN55pZP+VBZhBBK1yCmkMVq w DROitO3lIXjhIsN4TOYxNdRui Y73eCDsSOcaFy5chEntkDzwCO 4bBYPxalzpa931GpQzl6yhIVT w xGBsDZcxDID5Q05jp6H1UMCuS SVgGRA1iGQ3dL7soRzwrutvmK FwxSbiwrMwxLciFDpnNYgiE44 6 IHRvcDsnPlBhdGllbnQgTmFtZ Eq7S4PgAur8DCFnzImsGE0wnB HrDAyqJr4aaXknvKehQZ0tJCP p asepj875PpYcx4dwHAUukZWqT ZwnOUN4N14bk6E7UAMkLTGiVU V1ySS1lM2zxGycrraalUCakXf g qiTonRhhTZstRMfgP410IXAuu TqqOpMlseGwTDGyhXD9HR86MK 38kFQyy6V4cUH1N2LxCHQaqvp t aolipFY4IOBzERYjvD39Th5kh UdyXj8vEKDoNTL9QCWgnVXvC0 UxnH4sTwZfIWCwAZUfC8RgeQU t PMnxR228WDtlTiR8DZYptlIjY 5JxERCicRbnYzQ2k5K3Wb4QQ7 H4PW05EC95fWAwg5V7yTE3A3X h RUXmkivbnjowdWG4BEGrYQAxi E31Qu7biDqoVw9xDVGcXJK4FZ JluGRvP0TwhJ5hUyDkETEnRKC w W8UkkVJcFHmhL400WShfGlX9P FXeshRbV5DiAUMchDlgFqK3h1 J7Nf8PQXu7FD85CT82sASrx0F 5 rJM0S8EgHEZwhgyexgkpfMN5B PHgPRYhyP17Rh8lcDomXu2zTB CnIAJ2ATXsbGZaN0FbsD9jHbJ j QGZbORPsM2ZosVVxIByuS767J CdjEtM6LLDowrRhW8TqVGPmiM plLeD5t9H6Cj7UWVJwFL99IBF 5 kZC6JH84YT26O0TaTsgsdDQjc +PHRhYmxlIHdpZHRoPScxMD QdYxUwlFftVJ1vFs9bSGPjUTK v eUabgOUrVqRod1wwLFYhOKvrH C2taEhnE2UoaWW5GYIoa5j7Ef 41T54wU3LawOJ+NVGpiDU5uWM 0 vX9kOfBgAmF6EEfaT223IxCwj KOsGfveh1bzf2jeyZa1CcE7TW KuxtSoxTkjDFX3o0OiIe11P33 s IHdpZHRoPSIxNSUiIHZhbGlnb r4kzC5hHb9+FKDrcFK1rME0fX 2iLeMnEbF6SKphW576PlUoiQG v Ndtyi3kwd6qfpXh9XnQcOCHkp bVqhHpuDQX8l8ZaUg22E5JecT akl6RrKze1dw57uGBdo2U4uOT 9 H0JeHFYitoiemMDsyRrsEP0fD VNnxdmfTFYbrO2pWVGkA8o1Qa CbWuG5NGraQ5QjajF7ONSjiXO g DWdoLFL8X65uv6X2CGHoLVKxF NU3mQY4rK4wlIlosyyhwAWyoG koauZxnBonPSwjSCiqB140GLH v jGpaUETrfW1hPWXrcLHihUnyR N1mRFUbkwfmMbZBYt0PXyqtAB 8QUQbTPHk2O3HkBnj8PJMvtSa s DZ7seUZjDHuyXk1cuXiksIcnP Y1hLFNcslhzLEMjdB5bGAVdbV YghUogEA5kGEQfhkmqu794VbI x ROS2RCBjwHEoE2FxzA6nZiIqJ MKrGBIxE9XmaTBaIOvgA834MI rnYaM7OLZcqyTtY8ZnAVHhjKg u IoK1j2X3Qk6jSo2oCO5pYOD2A A60GL93mDHkx2X7aMN0W2VpAE EhhqsnjmqsfLJ4DNRqPSTafN8 7 mYJkRNqeYq0ie3E5a520FYYbR XCvxM58Vv6ovCyxQIBmgHAFjF 5hykvil6pcbzcbVuYzEQTjETr 0 OJc3ZNQmxTfjBjBuOBI3CnG5F YV0wQCjyX2ljYfxbecnqF6fXr c+ClFpVYJbuaQ1X5IwOev4PVC z iRhbAG6jwUToHEvlEc3snJits XpbDX3kEKEwhnmiYTOsqP6lFZ XpmQVkpUsyVV9aTWNfgqrxa04 0 EnSeQOL0IPKiwEUnX6KvgU7oP ePrBOSiFZXqP3DbvVDzKAwvG9 62SOlgNiD4OXXptgShE4JuJKE s xKvlBeO4m8Q1Xk2RJPztVK81W I54lLZds1J6rGI1V0HgERPrvw xqwxgiwZS3QMWfZJWpuD23zSV k KUciNu8zc0L4f614REKsHDUnb P90Xb3orAbtKXRswYGUzJ6oxg zsd9zetzvmGsUbVWLtALs4MVn 0 IBCouZruSyRrOLL4MiM6PAK0c CPxiO2coKpnpdsauI4dRdy+T3 Y9tJE4mUNshEwazVH+CO64iz6 8 T5EeDhihXqx5AQRhHRT4tIG0d L8dKMRePCojf3S0cIP0A6Korc Sckt8jn9keUJPhFLjcT75hhMG w u5W7KVJceIQ5WWHhyDjfThSdv G93Oyc+LLVfpYnln7DzQdryu2 xfo7deuEk7OjRaREOsdpFdrAl u PJP3g1ZsCx73W92hYBbyVITzM XHpHNZnIVLadMmzqi7iiC4nVj 8+KNUagJS0vYR2nG4lGhSeQjQ 2 NHljQ561FsAifTNiSarxi6lof 7fjoXz1WlIwZCRmkyJaaUqeBK E2p3DdMa06H2NxjMody6RyToq 0 tp22eYMtj7M9uFM7A0FxIDOka tectRDefFjqVJ5sMQHzffeeUD DcjC2uXCItG4v3SkYsIrX4FSd u V2JpphR7LVQcpDNbJKCvnHUWb B9vfivzm4xdjjbsMrQoZKCaXO n9BGr9TVTaiKzwJbHpYFB8YvE 2 LPW9iDQqsD4puTnrwztpaR6lG yc+ICe3z5natXJdFM5xuXS2UW 61JX36rWFwj0G0fWE1F2EuZTV p pzxujftwcAJ0MALiBGPjsC84L y0aaBfqQd8mOEQuSKK1RVOjsW BsD1ZjcR2dSqRaIXFvRZNtY7M l tLFeARdwV809DLabThM0BGIya aAvH3VcOPSaqFhkLqF5y0Z9Cf 1JUB13QF43HQ36iSUav6L4bAS 9 H6TwFEWbnfkijyyenKU7LMSjV BBlhS68Ak9qnQaeBz3mBUDjSR M3BDZjsSKpF4AogN9bEkSwNWE w ESXkE9AeaRJwPJmxW693XGfbB wR4BYHekxKwQ7FvNTZphZguSr E7q5M3Hj6XAq81SZ45VP29kJC g d1O2rPM2S2ObWEAkxpmqpxxrq AV5JFScXBHkoR08Et9wtRqkGq 6cIORgKON8LMTzqGCaG1DoaA3 y OpKwEXZyCOLmW1JtfRKpRZguU 809DAwsRuI6MDBwqsIaQ5FfFI LrsDhqMsJ3t9F0Rz5AELqvsli 8 O3KbCrjytZU+DO46EOGoGD66s ASzxRLoh2fyoGh3EsGxIDFhOX T1tQtkINjku2DsISScO87gyDU w c2U6 (more content not included)... Normal [facility] Consent for Treatmenton 12-01 Consent for Treatment [id number]#1.00CD:12 7 Normal [facility] Multi-Wound Charton 12-10-19 Multi-Wound Chart [id number]#1.00CD:1 27 Normal [facility] Nursing Note - Woundon 12-10 Nursing Note - Wound [id number]#1.00CD:1 27 [facility] Physician Orderon 12-10-2022 Physician Order [id number]#1.00CD:1 27 [facility] Procedure - Woundon 12-10-19 Procedure - Wound [id number]#1.00CD:1 27 [facility] Nursing Note - Woundon 12-09 Nursing Note - Wound [id number]#2.00CD:1 27 [facility] Coding Summary.on 12-04-2022 Coding Summary. CD:[id number] Gh0bW w+PGhlYWQ+OQ6MQFXtF23ulJX mkK1DB5fQST6AYNCGFZREHU8N TI3bpCY9MKhoG8KakiKa UkvaoYEgPR67RUn2TBA1nRbhY KewqY4ayOElC0c0FvVcPE68iW 06UTxsKCZtPtH1VnUdqiblsNX y W6bnIyUtxUMnMin+PHRhYmxlI HdpZHRoPScxMDAlJyBzdHlsZT 2lXx6cBOMyFLLkuAdfqZYaTxB j o3nxWPHqKJnnER3laVlqV9Yko ER7ITGgu8o5Lp38uPX+PHRkIH I7bZetLXalm941YeVuo6wlCCB 3 dLUgFPrzDDG3O87jq3J5SIAlO WLqVGE5jFI9kN2bvKnawzxxG6 BsbUIaNkF2FYU1sVFvgK1pxPm n chganT9lNjj+X04YSF4IHIAHP X6QGej2M1JzTdahpFV+PC90YW XyYI71oLBquTYku9zmpFz0TuE w CSXpVQP0hMxxMDplc6OuKRNsL 25akNBzd3A8DUZulMpfjVDxGc TlpWQ6mU2nPRjrwdaxk2gebri n Gqtid9ucce62bZ85P82kDZwkT IKjAZI2OZUiVRIpjHypjd4ucZ 9wIi8+UVpqz2kml7uunCy2LaS w CCLlepStoWvfDFO8i8BdWv48G 6TovHbwy5QzXrp7lv17gRQsp5 N7wYH9RJhgSBIvxS4gZYutFwE 6 QVOfYqLqnG81zRVlNRijNb0va JrlzFjmVG7tYTKozrjcURBjcW 9mKRQvtWCkjLsnBF0lTZIiakr m m141CfSgJYW5FHLfgENfW5Cul G9vWbEoCTDiJWIwH9IyhUWgOM wqD012MGsfCvW2LHGtjqZmS8U s JTLrgMqtAgP4g8Q3Fn9Rh3Kdf jedBGY8PTfsWOVwKnC5JjDfSm P8G4SdJaq1ZPWklCvuJX0dX5L h NYTttricuarzwPR4LVRcKCTvc H26nWWkQXsvWk3ck7R8e230KK OyKHKjjH01Cj2bzUzcFLYykQJ U yU2htieof1asrtfiFwSaXASvF Ko1CCe9QXPpaRtkGuHwCHO3Hd G0DHS6lRMtrP9aaDucnenwyH3 w Oyc+D55bnF8fWJT4URZ8wtomU BPyiyMbBK67TW79V1XeYsmuoT FibGU+JYIixyEywSzbGE2xHiQ j v4tzq3HwJLrnI9GcJPOgPYxaD ad7IVCyHPQ4kIU8yN2nRGAjDN yjt5E8mBQ1G0LzyvSeid1hf9v s IGTrRYbsE66cmXNiw3F4KCQtf JO4GKWvwZmtNaDtlI17Xuv+PG PafYedk8MxApmag3zbr3ytyOe 9 CvLwKKUwlkWriYstVOS4e2LlE t13J63nDMckXGZlKHYfYFOaXT EsyArjgf3wxG4sLm1+PGNvbCB 3 aWG4yD5rLYSqCsG8MYhbP946R lLpaANiQdusc9mwk0jomYg0Mn ArVKYrbkVptSobUPH9u5WbXf4 8 O87uKRgmBCDhAOWsOBOkQIZhc Fzozt7gzV7cOx0+WF8ag9quqe 63gH41qNP+HOCrMOB3aJnrPYf w SKQlsV0aOEwuTcR5NVXzWjCyt J27bLYwJLjoUa8vuUhehKxoFX 4gNDIwbggqi678AaZfy0znNNZ w hNOgEIjkXCY5Z56nd9H0TRAvN QDzWBC7tRW5sO2myMqlqbenlC EioMrvjzXcnKepOFrqWEmtV88 6 IHRvcDsnPlBhdGllbnQgTmFtZ So7C4TgXbp7FOYkqDbeTX2dwE FqZXjfNu2hjMmeiFzxMT7cIYE p ylzpf318SlWtb9fsZZKblVXyJ RjtGGU7Q17jy0S9WLKsVJAzAC A2qOR8lL9bqMoekssnjQXteQu g daNycHezFTvyZIczI289PXQfb GtyXnUweeEcWLAckSN0JM50VS 21yXTrs0M6qPD7D9ZbABQfxvz t qkufhGH2YFQjDROgqG53Jw9jz UlaKd2cIDUlQPK9MQSevXCvM3 UegO2sHjJmIQDpYTSnB1VroWN t FVooZ784VZiqKkN0OITglvKtD 4DeIXLjkPjyDtX0r2C4Pb1WK0 T3TG29IF41iKOly6L6xCF9B4W h YUUbwyylrgedjOI5LBNtBMLbr Z24Mq9loBufOm1pFANxBXV6NF BnkMLsH2ZkdH4sRdMpKDTkPTI w P4JyaHMgOStqJ635XUtoFfF2R LVypfExX8LuDUHulCguNwH0t3 C1Ko7RGOo9PW54ZM49uOEgf0X 5 kZO1Q2YjLYRboogiiufbeJK7S IDlAJGcvS50Dn0gtHvxFn0pYS LfHPZ1UXVtcBSyU2OovJ4rKbO j IWCzYPItE3XfnGEfCXyvU852O XkiXxW4JJVcwsPjK0WzHUYraT zuQcA4s4M7Cs3UONVcHR20MOY 5 hMO6HT32HZ38Y8HvJqsijPUex +PHRhYmxlIHdpZHRoPScxMD DrYvEpdKgxUO1cVu2cSDUbMYO v eRbwjWSzGrFhg3ogICQiMSanJ B5rcKxeH8KcaOX3CQGts3u7Ps 92F36cN9WwiZC+QBYvuUA7iKW 0 mI2pKqYkFrU4ZIneO934IeHbo QFhPjgle6yrj7pqdIm2JxE0IE OcpoHpzRpdPOG4c5LvIo31X26 s IHdpZHRoPSIxNSUiIHZhbGlnb y2dxP9mJl8+IXXtqHI1tBW3wX 7lPxZsEpC3LUljY617LcOjnWP v Zenuz7mae7tmnUp2RqWhINPsv wXzmCcdADZ6v6VeEr89H0RupY mel8EdObc9np30gQEpk9K1pOC 9 W7SdKAUwyafecGUfkEzhJZ0wG KKbmnudNTEetM6nKXCpO7g1Uf KgMoK2EEgjP1XkayT2QQJryEG g WEonAMV8I59ms6D6HQZeDPPpU PD6aAD1xM3opWnsstgogUNbzL vnjjQsvAocBPkcHGuzR708NYY v iGdhZXXhwM8cCCQovKWbnZlxW N7mWLPlzissIeSLWh0PCinqNA 1ANZuWUOe4T0GiQpn2USZwgBc s UP0smSDsDIuwLn8coZyicCvgM E8wKOGzqtjbGGZbxQ0uURPwuP DrgNihXO6xXHAohklyv308JaB x MKA1MFBlnNShB4QzaG9sXcFrS HEwZCZbN4VpmZMbTDegV031IV mtKdQ4XKReytSaL7QvIMUtxJf u JeC3k8O2Io2oOi0rKU1fDFJ6U F64CJ91cZNve2E8bWP7Z8ToDQ BwftvokedtxZJ2KBVrEYXgrO1 7 bTXjSAxdPi9dh5V8e465DWLdE EWfmZ46Cj4xsZrkMPRyxEMQuU 3axaftj9icjimbOmEmUVFxSIo 0 CBx4OIPzrYksDwCiVST1ZcF6C GF0tEEgdU1loJmnjsrzkE5lQu c+GtNyENWjizC0E5QiJgi7KWY z eYnsNR5mcFRyODrjZh0skTimv NejHY4dVZXjowbnCSPcbS1kAW IouQIchFzhQS1jBRWvjezzo91 0 WkUmYZA4OGWhnGUfU1KwgT2eG fMsXQVkTBNkW9OxgNGqSSvdA1 42AYnhRiK0NPJrhaRwY2AvJYD s iYauBiF7s4P0Hi9BPBgkYI77K R21xRDns4L0rLB0E6EeYJJloi kboeymcGW3ZHPmESBjiC40gQU k AVxcLv2eb0X1p747DIEfNRQhb X58Sz5koRhnILQywDNYeE3fjt dht5bplexlQbRhFQMsOVg8QFl 0 EUSjjZejDfKdSEP4CxT9VNQ6p XRepD3kuWcvlnimmM8dCmv+T3 H3xHY6oNRshIczmJL+SI29my2 8 Z9KtVuuzJzz8UUYiXOW7tNT7i C7vUSHtZLwdy5P7aIN5E9Rqgf Ehob3wa4ncNFDgTJqkL04tfAV w r3N6HESqtNK7HUBpzKtjVaDgk G93Oyc+LOIeiZhnd0BeNkfdp4 asz4higJs1RdQeSXLzwhClgVu u TDR9d6TtZv71T95lCRlhTAEuJ CJmCYCzZPZnmErryo2fbL0gJi 8+FXHyxUU6nVF0nX4dBwApPsA 2 YDvfC200ReEekLKuXuijm7eyc 6qenXm3NnQrAEQcfkCqlOdaTH P7p0NdQy26H4KosNpzo7SpItc 0 wz13xJKmm1X8qED0F5NyPRHtu ypilYGtvSxuNJ6cRIRxafrdJU IzmG9xKZIoW3b4EuYnOrM8PAt u J0WeluD8NYVpmMUcGFQeoJZWz Y5hjtcui9ukfczwDpKxFODdWM r3HAf6KYTcgHrfTwYmCFO2ZvX 2 ZYP5gMCglK6etAedkyiubB8yP yc+FBh7u8gzrNEmUB0cgPY6WM 90KL26iDAqy4N8bBF8V8VnGUE p eeoadjaqzUC7WQEsUHQubY67Z z8gcNqqYz6gNZVoNNQ0WYVowC LwV4NwlE1fWhBlPYEgTWVfD2J l tIJiJOanD424JHnpUwJ7CSWgx sQrF7LzWLKpnQesFyX5a0F4Iw 1PPQ23VQ72GI24qQXmj8I8bOD 9 Z9ReHIQagubujgdtgBV1XQPxD DAhlZ59Gy9lsZwgOc1mSQCsNL L0JNVynINyC2CfwL7hXqVtJFY w APReU4PcyVRbNGreU119JAvbC mR9FCIsioLgI8OiLWKclLrlAd M7n7A2Nf5DZk70QZ60DA25cEU g u6O6oPR3G1SaFCOqczyymjwsf YC4KPZtYZBwvP84Zh4edFbeAo 8hGPIcVLX9WIDkjPBhJ5TjnZ6 y YoReKPTnEKFvV1RyzDZpYZeeJ 437XLksRaO3EUYbvxWnM8CqML WzkFkqLmG7n3K5Zo9IZZpkfis 8 V9DaOqlxqMH+DS22RFKcLH90h JNifZRep5uprTo1MyQpFCXvCY R2aWatDEyyb4HwMKHkR48mjEZ w c2U6 (more content not included)... [facility] Consent for Procedure/Surger yon 12-04-2022 Consent for Procedure/Surgery [id number]#1.00CD: 127 [facility] Consent for Procedure/Surgery [id number]#1.00CD: 127 [facility] Consent to Photographon Consent to Photograph [id number]#1.00CD: 127 [facility] Correspondence - Woundon Correspondence - Wound [id number]#1.00CD: 127 [facility] Correspondence - Wound [id number]#1.00CD: 127 [facility] Correspondence - Wound [id number]#1.00CD: 127 [facility] HIPAA Forms Officeon 023 HIPAA Forms Office [id number]#1.00CD: 127 [facility] Nursing Assessment - Woundon 12-04-2022 Nursing Assessment - Wound [id number]#1.00CD:1 27 [facility] Physician Orderon 12-04-2022 Physician Order [id number]#1.00CD:1 27 [facility] Procedure - Woundon 12-04-19 Procedure - Wound [id number]#1.00CD:1 27 [facility] Progress Note - Woundon Progress Note - Wound [id number]#1.00CD:1 27 [facility] Consent for Treatmenton Consent for Treatment [id number]#1.00CD:12 7 [facility] Multi-Wound Charton 12-03-19 Multi-Wound Chart [id number]#1.00CD:1 27 [facility] Correspondence - Woundon Correspondence - Wound [id number]#1.00CD:12 7 [facility] Progress Noteson 07-20-2022 Opener Verifier [employer] Authentication Interface Message Text EMERGENCY TRIAGE, TREAT AND TRANSPORT (ET3) DOCUMENTATION OF TELEHEALTH VISIT Date / Time: 07/18/2022 / 0 Name: Yousif Aguilar : 1945 SSN: [id number] EMS Agency: [facility] [] Verbal consent obtained [] [...] Completed by: Wilfrid Haley MD Normal [facility] Coding Summary.on 02-19-2019 Coding Summary. 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 Z86.718 Personal [...] Date Saved: 02/19/2019 01:52 pm Normal [facility] CNOVon 09-03-2017 CNOV Office Visit (VASSFT) JEF AGUILAR Jimbo ([id number]) 1945 MDate Time Provider Blbazrfxpb18/4/17 10:00 AM NEO ROCHA During your visit today, we recorded the following information about you: Pulse Blood pressure Weight 73/minute 142/72 142.9 kgNeo Rocha MD 09/03/2017 10:08 AM [facility] Department of Cardiovascular MedicineOUTPATIENT VISIT DATE September 03, 2017OUTPATIENT VISIT TYPEESTABLISHEDPRIMARY CARE PHYSICIAN:Abbie Gtz III DO257 PAULO SAL[address]ERO [address] [place] [address] 19742Bvbfd: [phone]: [phone] PHYSICIANAbbie Gtz III, DO257 Paulo Salguero [facility] [id number] COMPLAINT:No chief complaint on file.HISTORY OF PRESENT [...] PE and DVT, 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 CT Chest +[id number] DUS LE +Rt femoral and popliteal [id number] DUS LE +Lt popliteal DVTPAST MEDICAL HISTORYDiagnosis [...] kg (315 lb) SpO2 94% BMI 43.93 kg/f4Iropnzs appearance: alert and cooperative individual, in no [...] elevation.Neo Rocha, RODNEYeferring Provider: ABBIE GTZ III [[id number]]Allergies As of Date: 09/03/2017 Noted Allergy ReactionSHELLFISH [...] to improve.Follow-up and Disposition History RecordedEncounter Number: [id number] Status:Closed by NEO ROCHA MD on 09/03/17 Normal [facility] PROGRESSon 09-03-2017 PROGRESS HNO ID: [id number] thor: Neo Godinez: (none)Author Type: PhysicianType: Progress NotesFiled: 09/03/2017 10:08 AMNote Text:[facility] InstituteRobnew [facility] Department of Cardiovascular MedicineOUTPATIENT VISIT DATE September 03, 2017OUTPATIENT VISIT TYPEESTABLISHEDPRIMARY CARE PHYSICIAN:Abbie Gtz III, DO257 [facility] JOSE M [address] [place] [address]Gpgvy: [phone]: [phone] PHYSICIANAbbie Gtz III, DO257 [place] AvFeig C Jose M [facility] [id number] COMPLAINT:No chief complaint on file.HISTORY OF PRESENT [...] PE and DVT, 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 CT Chest +[id number] DUS LE +Rt femoral and popliteal [id number] DUS LE +Lt popliteal DVTPAST MEDICAL HISTORYDiagnosis [...] kg (315 lb) SpO2 94% BMI 43.93 kg/v8Wctqqke appearance: alert and cooperative individual, in no [...] leg elevation.Neo Rocha MD Normal [facility] Vital Signs Date Time Vital Sign Value Performing Clinician Facility 10-28-2023 17:16-0500 Heart rate 69 /min Theresa Villalpando [facility] 10-28-2023 17:16-0500 SaO2% (BldA) [Mass fraction] 92 % Theresa Pocos [facility] 10-28-2023 17:16-0500 Diastolic blood pressure 77 mm[Hg] Theresa Pocos [facility] 10-28-2023 17:16-0500 Mean blood pressure 100 mm[Hg] Theresa Pocos [facility] 10-28-2023 17:16-0500 Systolic blood pressure 145 mm[Hg] Theresa Pocos [facility] 10-28-2023 17:16-0500 Respiratory rate 16 /min Theresa Pocos [facility] 10-28-2023 16:09-0500 Heart rate 59 /min Theresa Pocos [facility] 10-28-2023 16:09-0500 SaO2% (BldA) [Mass fraction] 95 % Theresa Pocos [facility] 10-28-2023 16:09-0500 Diastolic blood pressure 82 mm[Hg] Theresa Pocos [facility] 10-28-2023 16:09-0500 Mean blood pressure 95 mm[Hg] Theresa Pocos [facility] 10-28-2023 16:09-0500 Systolic blood pressure 121 mm[Hg] Theresa Pocos [facility] 10-28-2023 16:08-0500 Respiratory rate 16 /min Theresa Pocos [facility] 10-28-2023 15:58-0500 Blood Pressure Location Theresa Pocos [facility] 10-28-2023 15:58-0500 Body temperature 96.98 [degF] Theresa Pocos [facility] 10-28-2023 15:58-0500 Diastolic blood pressure 68 mm[Hg] Theresa Pocos [facility] 10-28-2023 15:58-0500 Heart rate 64 /min Theresa Pocos [facility] 10-28-2023 15:58-0500 Mean blood pressure 88 mm[Hg] Theresa Pocos [facility] 10-28-2023 15:58-0500 Respiratory rate 18 /min Theresa Pocos [facility] 10-28-2023 15:58-0500 SaO2% (BldA) [Mass fraction] 96 % Theresa Pocos [facility] 10-28-2023 15:58-0500 Systolic blood pressure 127 mm[Hg] Theresa Pocos [facility] 10-28-2023 15:46-0500 Blood Pressure Location Theresa Pocos [facility] 10-28-2023 15:46-0500 Mean blood pressure 86 mm[Hg] Theresa Pocos [facility] 10-28-2023 15:46-0500 Respiratory rate 14 /min Theresa Pocos [facility] 10-28-2023 15:41-0500 Blood Pressure Location Theresa Pocos [facility] 10-28-2023 15:41-0500 Mean blood pressure 95 mm[Hg] Theresa Pocos [facility] 10-28-2023 15:41-0500 Respiratory rate 18 /min Theresa Pocos [facility] 10-28-2023 15:31-0500 Body temperature 96.98 [degF] Theresa Pocos [facility] 10-28-2023 11:04-0500 Heart rate 80 /min Theresa Pocos [facility] 10-28-2023 11:02-0500 Respiratory rate 20 /min Theresa Pocos [facility] 10-28-2023 11:02-0500 Body temperature 97.7 [degF] Theresa Pocos [facility] 10-28-2023 11:02-0500 Mean blood pressure 104 mm[Hg] Theresa Pocos [facility] 10-22-2023 12:34-0500 Heart rate 80 /min Theresa Pocos [facility] 10-22-2023 12:34-0500 SaO2% (BldA) [Mass fraction] 94 % Theresa Pocos [facility] 10-22-2023 12:34-0500 Diastolic blood pressure 65 mm[Hg] Theresa Pocos [facility] 10-22-2023 12:34-0500 Mean blood pressure 86 mm[Hg] Theresa Pocos [facility] 10-22-2023 12:34-0500 Systolic blood pressure 130 mm[Hg] Theresa Pocos [facility] 10-22-2023 12:34-0500 Body temperature 97.7 [degF] Theresa Pocos [facility] 10-22-2023 12:34-0500 Respiratory rate 18 /min Theresa Pocos [facility] 10-17-2023 22:14-0500 Diastolic blood pressure 94 mm[Hg] Daniellen Dokken [facility] 10-17-2023 22:14-0500 Heart rate 82 /min Chantelylinn Dokken [facility] 10-17-2023 22:14-0500 Mean blood pressure 121 mm[Hg] Kaylinn Dokken [facility] 10-17-2023 22:14-0500 Respiratory rate 18 /min Kaylinn Dokken [facility] 10-17-2023 22:14-0500 SaO2% (BldA) [Mass fraction] 96 % Kaylinn Dokken [facility] 10-17-2023 22:14-0500 Systolic blood pressure 174 mm[Hg] Kaylinn Dokken [facility] 10-17-2023 21:29-0500 Body temperature 97.7 [degF] Kaylinn Dokken [facility] 10-17-2023 21:29-0500 Diastolic blood pressure 75 mm[Hg] Kaylinn Dokken [facility] 10-17-2023 21:29-0500 Heart rate 80 /min Kaylinn Dokken [facility] 10-17-2023 21:29-0500 Respiratory rate 18 /min Kaylinn Dokken [facility] 10-17-2023 21:29-0500 SaO2% (BldA) [Mass fraction] 98 % Kaylinn Dokken [facility] 10-17-2023 21:29-0500 Systolic blood pressure 162 mm[Hg] Kaylinn Dokken [facility] 10-17-2023 21:14-0500 Body temperature 97.7 [degF] Kaylinn Dokken [facility] 10-17-2023 21:14-0500 Diastolic blood pressure 78 mm[Hg] Kaylinn Dokken [facility] 10-17-2023 21:14-0500 Heart rate 83 /min Bryce Funk [facility] 10-17-2023 21:14-0500 Respiratory rate 18 /min Bryce Funk [facility] 10-17-2023 21:14-0500 SaO2% (BldA) [Mass fraction] 99 % Bryce Funk [facility] 10-17-2023 21:14-0500 Systolic blood pressure 158 mm[Hg] Bryce Funk [facility] 02-17-2023 11:00-0400 Body height 177.8 cm Perlita Hintonbrenda Other [employer] Other 02-17-2023 11:00-0400 Body mass index (BMI) [Ratio] 38.31 kg/m2 Perlita Hintonbrenda Other [employer] Other 02-17-2023 11:00-0400 Body temperature 97.8 [degF] Perlita Hintonbrenda Other [employer] Other 02-17-2023 11:00-0400 Body weight 121.11 kg Perlita Hintonbrenda Other [employer] Other 02-17-2023 11:00-0400 Diastolic blood pressure 787 mm[Hg] Perlita Reno Other [employer] Other 02-17-2023 11:00-0400 SaO2% (BldA) [Mass fraction] 97 % Perlita Rutbrenda Other [employer] Other 02-17-2023 11:00-0400 Systolic blood pressure 130 mm[Hg] Perlita Reno Other [facility] [employer] Other 07-18-2022 14:30-0400 Diastolic blood pressure 65 mm[Hg] [employer] [facility] [place] 07-18-2022 14:30-0400 Heart rate 83 /min [employer] [facility] [place] 07-18-2022 14:30-0400 Respiratory rate 18 /min [employer] [facility] [place] 07-18-2022 14:30-0400 Systolic blood pressure 117 mm[Hg] Et[facility] 07-05-2022 13:39-0400 Diastolic blood pressure 67 mm[Hg] [facility] 07-05-2022 13:39-0400 Heart rate 71 /min [facility] 07-05-2022 13:39-0400 Mean blood pressure 88 mm[Hg] [facility] 07-05-2022 13:39-0400 Respiratory rate 18 /min [facility] 07-05-2022 13:39-0400 SaO2% (BldA) [Mass fraction] 99 % [facility] 07-05-2022 13:39-0400 Systolic blood pressure 130 mm[Hg] [facility] 07-05-2022 13:00-0400 Diastolic blood pressure 66 mm[Hg] [facility] 07-05-2022 13:00-0400 Heart rate 69 /min [facility] 07-05-2022 13:00-0400 Mean blood pressure 89 mm[Hg] [facility] 07-05-2022 13:00-0400 SaO2% (BldA) [Mass fraction] 97 % [facility] 07-05-2022 13:00-0400 Systolic blood pressure 135 mm[Hg] [facility] 07-05-2022 12:30-0400 Diastolic blood pressure 63 mm[Hg] [facility] 07-05-2022 12:30-0400 Heart rate 72 /min [facility] 07-05-2022 12:30-0400 Mean blood pressure 84 mm[Hg] [facility] 07-05-2022 12:30-0400 Respiratory rate 18 /min [facility] 07-05-2022 12:30-0400 SaO2% (BldA) [Mass fraction] 93 % [facility] 07-05-2022 12:30-0400 Systolic blood pressure 126 mm[Hg] [facility] 07-05-2022 12:05-0400 Heart rate 76 /min [facility] 07-05-2022 11:50-0400 Body temperature 98.24 [degF] [facility] 07-05-2022 11:50-0400 Heart rate 81 /min [facility] 03-21-2022 08:18-0400 Blood Pressure Location Mitalirachel Zhuz [facility] 03-21-2022 08:18-0400 Body temperature 97.34 [degF] Mitali Carine [facility] 03-21-2022 08:18-0400 Diastolic blood pressure 74 mm[Hg] Mitali Carine [facility] 03-21-2022 08:18-0400 Heart rate 78 /min Mitali Menendezmetz [facility] 03-21-2022 08:18-0400 SaO2% (BldA) [Mass fraction] 96 % Mitali Hawk [facility] 03-21-2022 08:18-0400 Systolic blood pressure 122 mm[Hg] Mitali Hawk [facility] Encounters Encounter Date Encounter Type Care Provider Facility Start: 12-22-2023 End: 12-22-2023 ambulatory ADDI POCOS Not Available Start: 11-28-2023 End: 11-28-2023 ambulatory ADDI POCOS Not Available Start: 11-10-2023 End: 11-10-2023 ambulatory ADDI POCOS Not Available Start: 10-28-2023 End: 10-28-2023 ambulatory Addi Pocos Facility[place] Start: 10-28-2023 End: 10-28-2023 Admission to same day surgery center Addi Pocos [facility] Start: 10-27-2023 End: 10-28-2023 ambulatory Abbie Gtz Facility:[facility] Start: 10-27-2023 End: 10-27-2023 Patient encounter procedure AbbieTre Gtz III [facility] Start: 10-22-2023 End: 10-23-2023 ambulatory Addi Pocos Facility:[facility] Start: 10-22-2023 End: 10-22-2023 Patient encounter procedure Addi Pocos [facility] Start: 10-20-2023 End: 10-20-2023 ambulatory ADDI POCOS Not Available Start: 10-17-2023 End: 10-18-2023 Emergency department patient visit Bryce Funk Facility:[facility] Start: 10-17-2023 End: 10-17-2023 Emergency department patient visit Bryce Funk [facility] Start: 08-05-2023 End: 08-06-2023 ambulatory Facundo D Dolce Facility:[facility] Start: 07-29-2023 End: 07-30-2023 ambulatory Facundo D Dolce Facility:[facility] Start: 07-29-2023 End: 07-29-2023 Patient encounter procedure Facundo Hoffman [facility] Start: 07-22-2023 End: 07-23-2023 ambulatory Facundo D Dolce Facility:[facility] Start: 07-14-2023 End: 07-15-2023 ambulatory Facundo D Dolce Facility:[facility] Start: 07-14-2023 End: 07-15-2023 Patient encounter procedure Facundo Tima Hayjames [facility] Start: 07-08-2023 End: 07-09-2023 ambulatory Facundo D Dolce Facility:[facility] Start: 07-08-2023 End: 07-08-2023 Patient encounter procedure Facundo D Qian [facility] Start: 06-30-2023 End: 07-01-2023 ambulatory Facundo D Dolce Facility[facility] Start: 06-30-2023 End: 06-30-2023 Patient encounter procedure Facundo Hoffman [facility] Start: 06-24-2023 End: 06-25-2023 ambulatory Facundo D Dolce Facility:[facility] Start: 06-17-2023 End: 06-18-2023 ambulatory Facundo D Dolce Facility:[facility] Start: 06-17-2023 End: 06-17-2023 Patient encounter procedure Facundo D Qian [facility] Start: 06-10-2023 End: 06-11-2023 ambulatory Stephenatruro Hoffman Facility:[facility] Start: 06-10-2023 End: 06-10-2023 Patient encounter procedure Stephen R Bhartice [facility] Start: 06-02-2023 End: 06-03-2023 ambulatory Facundo Hoffman Facility:[facility] Start: 06-02-2023 End: 06-03-2023 Pre-admission assessment Facundo Hoffman [facility] Start: 05-27-2023 End: 05-28-2023 ambulatory Stephen R Bhartice Facility:[facility] Start: 05-27-2023 End: 05-27-2023 Patient encounter procedure Stephen R Bhartijames [facility] Start: 05-20-2023 End: 05-21-2023 ambulatory Facundo Hoffman Facility:[facility] Start: 05-20-2023 End: 05-20-2023 Patient encounter procedure Facundo Hoffman [facility] Start: 05-15-2023 End: 05-16-2023 ambulatory Facundo Hoffman Facility:[facility] Start: 05-15-2023 End: 05-15-2023 Patient encounter procedure Facundo Hoffman [facility] Start: 05-06-2023 End: 05-07-2023 ambulatory Facundo Hoffman Facility:[facility] Start: 05-06-2023 End: 05-06-2023 Patient encounter procedure Facundo Hoffman [facility] Start: 04-23-[address] FACUNDO HOFFMAN Facility: Start: 04-22-2023 End: 04-23-2023 ambulatory Facundo Hoffman Facility:[facility] Start: 04-15-2023 End: 04-16-2023 ambulatory Facundo Hoffman Facility:[facility] Start: 04-08-2023 End: 04-09-2023 ambulatory Facundo Hoffman Facility:[facility] Start: 04-08-2023 End: 04-08-2023 Patient encounter procedure Facundo Hoffman [facility] Start: 04-02-2023 End: 04-03-2023 ambulatory Stephen R Bhartice Facility:[facility] Start: 04-02-2023 End: 04-02-2023 Patient encounter procedure Stephen Hoffman [facility] Start: 03-25-2023 End: 03-26-2023 ambulatory Facundo Tima Hoffman Facility:[facility] Start: 03-17-2023 End: 03-19-2023 ambulatory Facundo Alfred Dolce Facility:[facility] Start: 03-11-2023 End: 03-12-2023 ambulatory Facundo Alfred Doljames Facility:[facility] Start: 03-11-2023 End: 03-11-2023 Patient encounter procedure Facundo Hayjames [facility] Start: 03-04-2023 End: 03-05-2023 ambulatory Facundo Hayjames Facility:[facility] Start: 03-04-2023 End: 03-04-2023 Patient encounter procedure Facundo Hayjames [facility] Start: 02-27-2023 End: 02-27-2023 ambulatory Perlita Reno Facility:[facility] Start: 02-27-2023 End: 02-27-2023 ambulatory DO Abbie R Gtz III Work Phone: [facility] Work Phone: Start: 02-27-2023 End: 02-27-2023 Patient encounter procedure DO Abbie Gtz III Work Phone: [facility] [place] Work Phone: Start: 02-24-2023 End: 02-25-2023 ambulatory Facundo Hayjames Facility:[facility] Start: 02-24-2023 End: 02-24-2023 Patient encounter procedure Facundo Alfred Bhartijames [facility] Start: 02-18-2023 End: 02-19-2023 ambulatory Facundo Alfred Qian Facility:[facility] Start: 02-18-2023 End: 02-18-2023 Patient encounter procedure Facundo Hayjames [facility] Start: 02-17-2023 End: 02-17-2023 ambulatory Perlita Reno Other [facility] [employer] Other Start: 02-17-2023 [facility] visit new patient Perlita Ramesh nasir [facility] Start: 02-11-2023 End: 02-12-2023 ambulatory Facundo Hoffman Facility:[facility] Start: 02-04-2023 End: 02-05-2023 ambulatory Facundo Hoffman Facility:[facility] Start: 02-04-2023 End: 02-04-2023 Patient encounter procedure Facundo Hoffman [facility] Start: 01-28-2023 End: 01-29-2023 ambulatory Facundo Hoffman Facility:[facility] Start: 01-28-2023 End: 01-29-2023 ambulatory Facundo Hoffman Facility:[facility] Start: 01-28-2023 End: 01-28-2023 Patient encounter procedure Facundo Hoffman [facility] Start: 01-21-2023 End: 01-22-2023 ambulatory Facundo Hoffman Facility:[facility] Start: 01-21-2023 End: 01-21-2023 Patient encounter procedure Facundo Hoffman [facility] Start: 01-15-2023 End: 01-22-2023 Pre-admission assessment Facundo Hoffman [facility] Start: 01-14-2023 End: 01-15-2023 ambulatory Facundo Hoffman Facility:[facility] Start: 01-14-2023 End: 01-14-2023 Patient encounter procedure Facundo Hoffman [facility] Start: 01-07-2023 End: 01-08-2023 ambulatory Facundo Hoffman Facility:[facility] Start: 01-07-2023 End: 01-07-2023 Patient encounter procedure Facundo Hoffman [facility] Start: 12-31-2022 End: 01-01-2023 ambulatory Facundo Hoffman Facility:[facility] Start: 12-31-2022 End: 12-31-2022 Patient encounter procedure Facundo Hoffman [facility] Start: 12-27-2022 End: 12-28-2022 ambulatory Facundo Hoffman Facility:[facility] Start: 12-27-2022 End: 12-27-2022 Patient encounter procedure Facundo Hoffman [facility] Start: 12-24-2022 End: 12-25-2022 ambulatory Facundo Hoffman Facility:[facility] Start: 12-24-2022 End: 12-24-2022 Patient encounter procedure Facundo Hoffman [facility] Start: 12-17-2022 End: 12-18-2022 ambulatory Facundo Hoffman Facility:[facility] Start: 12-10-2022 End: 12-11-2022 ambulatory Facundo Hoffman Facility:[facility] Start: 12-10-2022 End: 12-10-2022 Patient encounter procedure Facundo Hoffman [facility] Start: 12-03-2022 End: 12-04-2022 ambulatory Facundo Hoffman Facility:[facility] Start: 12-03-2022 End: 12-03-2022 Patient encounter procedure Facundo Hoffman [facility] Start: 10-23-2022 End: 10-31-2022 ambulatory UNKNOWN PROVIDER Facility:[facility] Start: 07-20-2022 End: 07-22-2022 ambulatory UNKNOWN PROVIDER Facility:[facility] Start: 07-18-2022 End: 07-18-2022 ambulatory [facility] Emergenc y Triage, Treat and Transport Start: 07-18-2022 End: 07-18-2022 Emergency department patient visit [facility] Emergency Triage, Treat and Transport Comment on above: Arrived Start: 07-05-2022 End: 07-05-2022 Emergency department patient visit Itz Rachel Leonidas [facility] Start: 03-21-2022 End: 03-21-2022 Patient encounter procedure Mitali Hawk [facility] Start: 02-23-2019 Patient encounter procedure Zakia Buck Facility:[facility] Start: 01-01-2019 End: 01-02-2019 Patient encounter procedure Stephen CrossNelly Qian Facility:[facility] Start: 09-03-2017 End: 09-04-2017 Ambulatory NEO ROCHA [facility] Procedures Date Procedure Procedure Detail Performing [...] [facility] Start: 1982 [facility] Start: [facility] Hepatitis C screening Hepatitis C An tibody [facility] Start: 1965 Tetanus + diphtheria + acellular pertussis vaccine (product) Tdap Booster [facility] Immunizations Immunization Date Immunization Notes Care Provider Hanny macias 08-31-2021 influenza virus vaccine, unspecified formulation Mitali Hawk [facility] 02-02-2021 zoster vaccine recombinant [facility] 09-05-2020 influenza, high dose seasonal, preservative-free [facility] 09-05-2020 influenza virus vaccine, unspecified formulation [facility] 10-15-2019 influenza, high dose seasonal, preservative-free [facility] 09-10-2018 influenza, injectabl e, quadrivalent, preservative free [facility] 09-29-2017 influenza, injectabl e, quadrivalent, preservative free [facility] 09-25-2016 influenza, injectabl e, quadrivalent, preservative free [facility] 03-28-2016 pneumococcal conjuga te vaccine, 13 valent [facility] 09-21-2015 influenza, seasonal, injectable Et3 [facility] 12-27-2013 pneumococcal conjuga te vaccine, 13 valent Et3 [facility] Payers Date Payer Category Payer Self-pay 2022 Medicaid [id number] 2021 Unknown [id number] 2021 Unknown 2021 Medicare [employer]NA MEDICARE HU[employer]NA CHOICE PPO/HMO [id number] 2021-Present [employer] CLAIMS OFFICE [address] [address] [place] [address] PPO [id number] 2018 Unknown [id number] 1945 Unknown [id number] ..840.1.311886.3.579.2.727 1947 Unknown [id number] 2.16.840.1.973821.3.579.2.727 1947 Unknown [id number] 2.16.840.1.414780.3.579.2.732 1947 Unknown [id number] 2.16.840.1.059304.3.579.2.732 1947 Unknown [id number] 2.16.840.1.821637.3.579.2.593 1947 Unknown [id number] 2.16.840.1.516447.3.579.2.727 1947 Unknown [id number] 2.16.840.1.726083.3.579.272 1947 Unknown [id number] 2.16.840.1.878727.3.579.272 1947 Unknown [id number] 2.16.840.1.919944.3.579.272 1947 Unknown [id number] 2.16.840.1.148517.3.579.272 1947 Unknown [id number] 2.16.840.1.277578.3.579.272 1947 Unknown [id number] 2.16.840.1.288008.3.579.2.72 1947 Unknown [id number] 2.16.840.1.136017.3.579.272 1947 Unknown [id number] 2.16.840.1.473117.3.579.2.72 1947 Unknown [id number] 2.16.840.1.239621.3.579.272 1947 Unknown [id number] 2.16.840.1.359280.3.579.2.72 1947 Unknown [id number] 2.16.840.1.697710.3.579.2. 1947 Unknown [id number] 2.16.840.1.753287.3.579.2 1947 Unknown [id number] 2.16.840.1.996490.3.579.2. 1947 Unknown [id number] 2.16.840.1.780073.3.579.2 1947 Unknown [id number] 2.16.840.1.331163.3.579.2 1947 Unknown [id number] 2.16.840.1.835041.3.579. 1947 Unknown [id number] 2.16.840.1.795119.3.579.2 1947 Unknown [id number] 2.16.840.1.230803.3.579.2 1947 Unknown [id number] 2.16.840.1.635856.3.579.2 1947 Unknown [id number] 2.16.840.1.126406.3.579.2 1947 Unknown [id number] 2.16.840.1.416862.3.579.2 1947 Unknown [id number] 2.16.840.1.867183.3.579.2 1947 Unknown [id number] 2.16.840.1.206294.3.579.2 1947 Unknown [id number] 2.16.840.1.695699.3.579.2 1947 Unknown [id number] 2.16.840.1.139412.3.579.2 1947 Unknown [id number] 2.16.840.1.242911.3.579.2 1947 Unknown [id number] 2.16.840.1.322606.3.579.2 1947 Unknown [id number] 2.16.840.1.152594.3.579.2 1947 Unknown [id number] 2.16.840.1.372128.3.579.2 1947 Unknown [id number] 2.16.840.1.758937.3.579.2 1947 Unknown [id number] 2.16.840.1.048286.3.579.2 1947 Unknown [id number] 2.16.840.1.081698.3.579.2 1947 Unknown [id number] 2.16840.1.915827.3.579.2 1947 Unknown [id number] 2.16.840.1.125501.3.579.2 1947 Unknown [id number] 2.16.840.1.300343.3.579.2 1947 Unknown [id number] 2.16.840.1.072075.3.579.2 1947 Unknown [id number] 2.16840.1.416362.3.579.2 1947 Unknown [id number] 2.16.840.1.062049.3.579.2 1947 Unknown [id number] 2.16.840.1.996417.3.579.2 1947 Unknown [id number] 2.16.840.1.892217.3.579.2 1947 Unknown [id number] 2.16.840.1.034455.3.579.2.9 1947 Unknown [id number] 2.16.840.1.526730.3.579.2.1259 1947 Unknown [id number] 2.16.840.1.260262.3.579.2.1259 1947 Unknown [id number] 2.16.840.1.318139.3.579.2.1259 1947 Unknown [id number] 2.16.840.1.881057.3.579.2.1259 1947 Unknown [id number] 2.16.840.1.729037.3.579.2.1259 1947 Unknown [id number] 2.16.840.1.184774.3.579.2.1259 Unknown Stacey NOLEN/SARAH [id number] Unknown [id number] 2.16.840.1.766523.3.579.2.531 Social History Date Type Detail Facility Start: 03-21-2022 Tobacco smoking status Ex-smoker (finding) [facility] Tobacco smoking status Never [facility] Sex Assigned At Male [facility] Tobacco smoking status NMIS Tobacco smoking consumption unknown [facility] Start: 1945 Sex Assigned At Not [facility] file [facility] Start: 1945 Sex Assigned At Male [facility] Medical Equipment Procedure Code Equipment Code Equipment Origin al Text Equipment Identifier Dates ELBOW FRACTURE O RIF Theresa Villalpando DO 10/28/23 Unknown Elbow R FDA Start: 10-28-2023 ELBOW FRACTURE O RIF Camila DOTheresa 10/28/23 Unknown Elbow R FDA Start: 10-28-2023 Functional Status Date Assessment Result Facility 10-22-2023 Functional Status No [facility] 10-17-2023 Functional Status N/A [facility] 07-05-2022 Functional Status N/A [facility] Clinical Notes 03-21-2022 to 10-28-2023 Note Date & Type Note Facility 10-28-2023 Hospital Discharg e instructions Patient Education 10/28/2023 16:52:15 Post Op Patient Instructions - FT (Custom) (CUSTOM) 10/27/2023 07:36:07 [facility] Home Care Instructions (Custom) [place], [place] [facility] OUTPATIENT SURGERY Home Care [...] drive. Theresa Villalpando, DO [facility] [address] [place] [address] [phone] Reviewed: 08 Follow Up Care 10/20/2023 14:32:22 With:Theresa Villalpando Address: [address] [place] [phone]- Business (1) When:11/10/2023 14:30:00 Comments:Appointment has already been scheduled [facility] 10-27-2023 Note [id number]#[id number] [facility] 10-18-2023 Hospital Discharg e instructions [...] Follow these instructions at home: Medicines Take ywmd-omv-ceiuqls and prescription medicines only as told by your health care provider. Ask your health care provider if the medicine prescribed to you: ?Requires you to avoid driving or using heavy machinery. ?Can cause constipation. You may need to take actions to prevent or treat constipation, such as: ?Drink enough fluid to keep your urine pale yellow. ?Take wgan-tuz-hqumspa or prescription medicines. ?Eat foods that are [...] provider. Document Revised: 02/14/2022 Document Reviewed: 02/14/2022 [email or web address] Patient Education 2022 [email or web address] Follow Up Care 10/17/2023 21:14:35 With:Theresa Villalpando Address: [address] [place], [place] [id number] Business (1) When:10/20/2023 Comments:You can use the pain medication every 6 hours as needed for pain. Please follow-up with your primary care doctor addition to orthopedics for further evaluation management. Please return to the ED for any new or worsening symptoms. With:Abbie Gtz Address: [address] [place] [address] [place] [address] Business (1) When:Within 3 Day(s) [facility] 10-17-2023 Evaluation + Plan note Extrac krystal from: Title:ED Note Author:rByce Funk DO Date :10/17/23 Olecranon fracture (S52.023A : Displaced fracture of olecranon process without intraarticular extension of unspecified ulna, initial encounter for closed fracture) Orders: acetaminophen-hydrocodone, 1 tab(s), Oral, q6hr for pain for 3 day(s), 10 tab(s), Refill(s) 0, [facility] 1985, 177.8, cm, 10/17/23 21:21:00 EST, Height/Length Dosing, 133.1, kg, 10/17/23 21:21:00 EST, Weight Dosing Sling Apply XR Elbow 3+ Views Right [facility]03-20-2023 Evaluation note* Encounter Date Diagnosis Assessment Notes [...] this plan, and denies any questions. [facility] [employer] Other 08-20-2022 History of Present illness Narrative* Wilfrid Haley MD - 07/20/2022 8:23 AM EDT Images from the original note were not included. EMERGENCY TRIAGE, TREAT AND TRANSPORT (ET3) DOCUMENTATION OF TELEHEALTH VISIT Date / Time: 07/18/2022 / 1430 Name: Yousif Aguilar : 1945 SSN: [id number] EMS Agency: [facility] [] Verbal consent obtained [] [...] by: Wilfrid Haley MD documented in this [id number] Hospital Discharge instructions Patient Education 07/05/2022 13:44:46 [...] activities that cause pain. General instructions Take krsz-mdm-qcrjpid and prescription medicines only as told by [...] 05/07/2011 Document Revised: 04/03/2020 Document Reviewed: 04/03/2020 [employer] Patient Education 2019 [employer] Follow Up Care 07/05/2022 11:49:47 With:Abbie Gtz Address: [address] [place] [address] [place] [address] Business (1) When:07/08/2022 13:33:40 [facility]08-05-2022 Evaluation + Plan noteExtracted from: Title:ED Note [...] XR Hip 2-3 Views Right + Pelvis [facility]04-21-2022 Hospital Discharge instructions Patient Education 03/21/2022 08:32:55 [...] 08/13/2005 Document Revised: 03/04/2019 Document Reviewed: 03/04/2019 [email or web address] Patient Education [employer] Follow Up Care 03/05/2022 13:23:06 With:Mitali Hawk CNP Address: When:1 year only if needed [facility] Evaluation + Plan note No data available for this section [facility] Evaluation + Plan note Future Appointments Appointment Date:12/10/2022 10:00:00 AM Scheduled Provider: [facility] Appointment Type:WC Assessment (FT) Appointment Date:12/17/2022 01:45:00 PM Scheduled Provider:Facundo Hoffman DPM [facility] Appointment Type:WC Follow Up [facility] (FT) [facility] Future Appointments Appointment Date:12/17/2022 01:45:00 PM Scheduled Provider:Facundo Hoffman DPM [facility] Appointment Type:WC Follow Up Visit (FT) [facility] Future Appointments Appointment Date:12/31/2022 10:30:00 AM Scheduled Provider: [facility] Appointment Type:WC Assessment (FT) Appointment Date:01/07/2023 01:45:00 PM Scheduled Provider:Facundo Hoffman DPM [facility] Appointment Type:WC Follow Up Visit (FT) [facility] Future Appointments Appointment Date:12/31/2022 01:30:00 PM Scheduled Provider: [facility] Appointment Type:WC Assessment (FT) Appointment Date:01/07/2023 01:45:00 PM Scheduled Provider:Facundo Hoffman DPM [facility] Appointment Type:WC Follow Up Visit (FT) [facility] Future Appointments Appointment Date:01/07/2023 01:45:00 PM Scheduled Provider:Facundo Hoffman DPM [facility] Appointment Type:WC [facility] (FT[facility] Future Appointments Appointment Date:01/14/2023 02:30:00 PM Scheduled Provider:Facundo Hoffman DPM [facility] Appointment Type:WC Follow Up Visit (FT) [facility] Future Appointments Appointment Date:01/21/2023 03:30:00 PM Scheduled Provider:Facundo Hoffman DPM [facility] Appointment Type:WC Follow Up Visit (FT) [facility] Future Appointments Appointment Date:01/28/2023 03:30:00 PM Scheduled Provider:Facundo Hoffman DPM [facility] Appointment Type:WC Follow Up Visit (FT) Appointment Date:02/11/2023 01:30:00 PM Scheduled Provider:Facundo Hoffman DPM [facility] Appointment Type:WC Follow Up Visit (FT) [facility] Future Appointments Appointment Date:02/04/2023 01:45:00 PM Scheduled Provider:Facundo Hoffman DPM [facility] Appointment Type:WC Follow Up Visit (FT) Appointment Date:02/11/2023 01:30:00 PM Scheduled Provider:Facundo Hoffman DPM [facility] Appointment Type:WC Follow Up Visit (FT[facility] Future Appointments Appointment Date:02/11/2023 01:30:00 PM Scheduled Provider:Facundo Hoffman DPM [facility] Appointment Type:WC Follow Up Visit (FT) [facility] Future Appointments Appointment Date:02/25/2023 11:30:00 AM Scheduled Provider: [facility] Appointment Type:WC Assessment (FT) Appointment Date:03/04/2023 01:15:00 PM Scheduled Provider:Facundo Hoffman DPM [facility] Appointment Type:WC Follow Up Visit (FT) [facility] Future Appointments Appointment Date:03/04/2023 01:15:00 PM Scheduled Provider:Facundo Hoffman DPM [facility] Appointment Type:WC Follow Up Visit (FT) [facility] Future Appointments Appointment Date:03/11/2023 11:00:00 AM Scheduled Provider: [facility] Appointment Type:WC Assessment (FT) Appointment Date:03/17/2023 01:30:00 PM Scheduled Provider: [facility] Appointment Type:WC Assessment (FT) Appointment Date:03/25/2023 02:00:00 PM Scheduled Provider:Facundo Hoffman DPM [facility] Appointment Type:WC Follow Up Visit (FT) [facility] Future Appointments Appointment Date:03/17/2023 01:30:00 PM Scheduled Provider: [facility] Appointment Type:WC Assessment (FT) Appointment Date:03/25/2023 02:00:00 PM Scheduled Provider:Facundo Hoffman DPM [facility] Appointment Type:WC Follow Up Visit (FT) [facility] Future Appointments Appointment Date:04/08/2023 01:45:00 PM Scheduled Provider:Facundo Hoffman DPM [facility] Appointment Type:WC Follow Up Visit (FT) [facility] Future Appointments Appointment Date:04/15/2023 02:15:00 PM Scheduled Provider:Facundo Hoffman DPM [facility] Appointment Type:WC Follow Up Visit (FT) [facility] Future Appointments Appointment Date:05/15/2023 10:00:00 AM Scheduled Provider: [facility] Appointment Type:WC Assessment (FT) Appointment Date:05/20/2023 01:45:00 PM Scheduled Provider:Facundo Hoffman DPM [facility] Appointment Type:WC [facility] Future Appointments Appointment Date:05/20/2023 03:15:00 PM Scheduled Provider:Facundo Hoffman DPM [facility] Appointment Type:WC [facility] (FT[facility] Future Appointments Appointment Date:06/02/2023 08:30:00 AM Scheduled Provider: Location:[facility] Appointment Type:WC Assessment (FT) Appointment Date:06/10/2023 03:00:00 PM Scheduled Provider:Facundo Hoffman DPM [facility] Appointment Type:WC [facility] Future Appointments Appointment Date:06/10/2023 03:00:00 PM Scheduled Provider:Facundo Hoffman DPM [facility] Appointment Type:WC Follow Up [facility] (FT[facility] Future Appointments Appointment Date:06/24/2023 03:00:00 PM Scheduled Provider:Facundo Hoffman DPM [facility] Appointment Type:WC Follow Up [facility] (FT[facility] Future Appointments Appointment Date:07/08/2023 01:45:00 PM Scheduled Provider:Facundo Hoffman DPM [facility] Appointment Type:WC [facility] Up [facility] (FT[facility] Future Appointments Appointment Date:07/14/2023 09:00:00 AM Scheduled Provider: Location:[facility] Appointment Type:WC Assessment (FT) Appointment Date:07/22/2023 02:00:00 PM Scheduled Provider:Facundo Hoffman DPM [facility] Appointment Type:WC [facility] ([facility] Future Appointments Appointment Date:07/22/2023 02:00:00 PM Scheduled Provider:Facundo Hoffman DPM [facility] Appointment Type:WC [facility] Up [facility] (FT[facility] Future Appointments Appointment Date:08/05/2023 02:00:00 PM Scheduled Provider:Facundo Hoffman DPM Location[facility] Appointment Type:WC Follow Up Visit (FT[facility] Future Appointments Appointment Date:10/28/2023 02:00:00 PM Scheduled Provider: Location:[facility] Appointment Type:Surgery FT [facility]* Diagnosis Fall in home, initial encounter- Primary documented [facility] Phone: [facility] Narrative - Reported* Type Description Date Medical History high cholesterol Medical History Blood clots Surgical History hand and leg surgery 1974 Surgical History jaw wiring Surgical History elbow surgery Surgical History appendectomy Surgical History wrist surgery right hand Hospitalization History see above [employer] Other Hospital Discharge instructions No data available for this section [facility] No data available for this section [facility] Summary Purpose Family History No Family History [...] content) DATE CREATED AUTHOR 05/27/2018 [facility] DATE CREATED AUTHOR AUTHOR'S ORGANIZ ATION 02/25/2019 [facility] DATE CREATED AUTHOR AUTHOR'S ORGANIZ ATION 11/01/2022 [facility] DATE CREATED AUTHOR AUTHOR'S ORGANIZ ATION 03/15/2023 [facility] DATE CREATED AUTHOR AUTHOR'S ORGANIZ ATION 04/09/2023 [facility] DATE CREATED AUTHOR AUTHOR'S ORGANIZ ATION 11/05/2023 Gerardo Soni [facility] DATE CREATED AUTHOR AUTHOR'S ORGANIZ ATION 12/22/2023 [facility] EPIC Care Team (unrecognized sect [...] BE BASED ON THE PRIMARY CLINICAL RECORDS. [facility] [address] [facility]. provides no warranty or guarantee of the accuracy or completeness of information in this document.
== END 2024-04-05 09:10 | disposition home or self-care (01) ==
LOC: VC 09:09
PROVIDERS: PCP Radiology Diagnostic Radiology; Visit Provider Radiology Diagnostic Radiology
DX: I80.02 Phlebitis and thrombophlebitis of superficial vessels of left lower extremity (principal)
CPT/HCPCS: 93971; G0463

== ENCOUNTER 2024-04-08 08:23 | Outpatient (OUT) | payer OTHER, MEDICAID, SELFPAY ==
--- NOTE | 2024-04-08 08:23 | VEIN_ITS ---
[address] [address] Patient Name: YOUSIF NAJERA MRN: [id number] date: 1945 Sex: M Assigned Patient Location: Current Patient Location: Accession/Order Number: [id number] Exam Date: 04/08/2024 08:27 Report Date: 04/08/2024 10:46 At the request of: THERESA DE DIOS Procedure: VC INJ Foam Sclerosant WUS POULTRY BARN MANAGER PROCEDURE: VC INJ Foam Sclerosant WUS POULTRY BARN MANAGER HISTORY: Pain due to varicose veins of bilateral legs I83.813 Pre-operative Diagnosis: CEAP class C6 venous insufficiency with pain, tenderness, edema and incompetent branch saphenous vein(s), chronic venous insufficiency right leg secondary to venous incompetence Post-operative Diagnosis: CEAP class C6 venous insufficiency with pain, tenderness, edema and incompetent branch saphenous vein(s), chronic venous insufficiency right leg secondary to venous incompetence Procedure Performed: 1. Ultrasound-guided microfoam chemical ablation with Varithenaregistered 2. Intraoperative ultrasound guidance Physician: Cali Tanner M.D. Anesthesia: None Indications for Procedure: 78 year old male. Symptoms including lower extremity pain and swelling, skin changes, and nonhealing ulcers for many years despite conservative medical therapy including medical compression stockings, exercise and analgesics. Prior procedures include endovenous laser ablation and microfoam chemical ablation. Multiple incompetent varicosities of the right leg. Duplex scan showed reflux and enlarged diameters up to 5 mm. The patient underwent informed consent including management options where the complications of infection, bleeding, pain, and skin injury were discussed. Particular attention was spent discussing thrombus extension and deep vein thrombosis as well as the possibility of pulmonary embolus and treatment with oral or injectable blood thinners. Procedure: The patient walked to the procedure room. All applicable staff donned appropriate apparel. A procedure timeout was performed to confirm correct patient, correct extremity, correct procedure, and correct room set-up including presence of all applicable supplies, devices, and drugs. A duplex ultrasound, performed by myself confirmed the location and incompetence of branch saphenous varicosities and their course was marked on the skin together with the dilated tributaries. The extent of treatment of the vein and the associated varicosities was determined through ultrasound mapping. The skin was prepped and then punctured with a butterfly needle and advanced under ultrasound guidance. The Varithenaregistered canister was activated and the canister was primed and purged as required in the instructions for use. Varithenaregistered was drawn into a sterile syringe. Varithenaregistered was slowly administered at 0.5-1.0 cc/second with close observation by ultrasound of its course in the vessels. Total volume utilized was: 15 mL into a 5 mm varicosity of the mid anterior khan which remains large in diameter with extensive branching extending cephalad to the upper thigh. Following administration of Varithenaregistered the leg was elevated and the patient was asked to repeatedly dorsiflex the ankle to limit flow of Varithenaregistered into perforating veins. Once appropriate spasm had been confirmed in the treated veins, the vascular catheter was removed from the leg and light pressure was applied over the puncture site for hemostasis. The common femoral and deep superficial veins were then evaluated for flow and compressibility prior to dressing placement. The lower extremity was kept elevated at 45 degrees above the horizontal and cording material was applied over the saphenous segments and tributaries to allow for eccentric compression over the target vessels including the targeted saphenous vein(s). A multilayer dressing was applied consisting of foam pads, coban and thigh-high 20-30 mm Hg compression elastic support hose were placed on the patient. The leg was lowered only after compression had been applied and the patient was immediately ambulatory. The patient ambulated 10 minutes under supervision and was without apparent concerns at time of release. Post-care instructions include advising patient to keep post-treatment bandages in place and dry for 48 hours, avoid extended periods of inactivity, avoid heavy exercise for one week, wear compression stockings on the treated leg continuously for two weeks, to walk daily for 10 minutes over the next month. The patient was instructed to take an anti-inflammatory medicine as needed and to follow up for color duplex scan of the Saphenous veins, the treated branch saphenous varicosities, the adjacent deep veins, and additional treatment within 7 days. PERSONNEL: Deandre Lechuga RN Electronically authenticated by: CALI TANNER Date: 04/08/2024 10:46
== END 2024-04-08 08:24 | disposition home or self-care (01) ==
LOC: VC 08:23
PROVIDERS: PCP Radiology Diagnostic Radiology; Visit Provider Radiology Diagnostic Radiology
DX: I83.813 Varicose veins of bilateral lower extremities with pain (principal)
CPT/HCPCS: 36466

== ENCOUNTER 2024-04-15 13:18 | Outpatient (OUT) | payer OTHER, MEDICAID, SELFPAY ==
--- NOTE | 2024-04-15 13:21 | VEIN_ITS ---
Patient Name: YOUSIF NAJERA MR#: [id number] : 1945 Exam Date: 04/15/2024 Ordering Doctor: DR THERESA DE DIOS M.D. RADIOLOGY REPORT PROCEDURE: [facility] EST [facility] - OFFICE VISIT FOLLOW UP [facility] PROGRESS NOTES: The patient reports improvement in leg symptoms. There has been interval reduction in varicosities. The patient has followed our recommendations to walk 20-30 minutes once or twice per day since the procedure. Physical exam demonstrates decrease in varicosities of the leg. Persistent varicosities are identified along the legs bilaterally. Continued healing of lower extremity chronic skin changes Review of the ultrasound performed the same day demonstrates occlusive thrombus extending throughout the treated vein(s), see separate report, consistent with a successful ablation. No thrombus extending into or beyond the saphenofemoral junction. The patient expressed a desire to proceed with treatment of remaining incompetent varicosities. The patient was informed that treatment was a process and would require additional procedures/sessions. Patient has 2 remaining available sessions of microfoam chemical ablation. VEIN/[facility] EST LMTD IMPRESSION: 1. Successful ablation of the right leg treated branch saphenous varicosities saphenous vein(s). 2. Persistent varicose veins and lower extremity symptoms. PLAN: Microfoam chemical ablation of remaining left and then right lower extremity incompetent branch saphenous varicosities. Nurse notes, history and physical were reviewed and confirmed, see attached forms. The nurse was present throughout the physical exam and consultation Dictated by: Koko Tanner M.D. on 04/15/2024 at 15:16 Approved by: Koko Tanner M.D. on 04/15/2024 at 15:19
--- NOTE | 2024-04-15 13:22 | VEIN_ITS ---
Patient Name: YOUSIF NAJERA MR#: [id number] : 1945 Exam Date: 04/15/2024 Ordering Doctor: DR THERESA DE DIOS M.D. RADIOLOGY REPORT PROCEDURE: VC EXT VENOUS RT LMTD COMPARISON: VC EXT VENOUS RT LMTD, 03/02/2024. INDICATIONS: Phlebitis of superficial veins of rt lower extremity I80.01 TECHNIQUE: Lower extremity rodriges scale and Duplex Doppler evaluation of the deep venous system from the inguinal ligament through the calf veins. FINDINGS: REGION: Right lower extremity. THROMBI: Negative for DVT. Varithena induced thrombus visualized at mid/ant calf and mid/med calf. COMPRESSIBILITY: Non-compressible segments corresponding to thrombus FLOW: Areas of no flow corresponding to thrombus OTHER: Multiple varicose veins remain. Largest at dist/med thigh measuring 4.6mm with 0.8s reflux. CONCLUSION: 1. 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 Dictated by: Koko Tanner M.D. on 04/15/2024 at 15:19 Approved by: Koko Tanner M.D. on 04/15/2024 at 15:20
== END 2024-04-15 13:19 | disposition home or self-care (01) ==
LOC: VC 13:19
PROVIDERS: PCP Radiology Diagnostic Radiology; Visit Provider Radiology Diagnostic Radiology
DX: I80.01 Phlebitis and thrombophlebitis of superficial vessels of right lower extremity (principal)
CPT/HCPCS: 93971; G0463

== ENCOUNTER 2024-04-27 09:03 | Outpatient (OUT) | payer OTHER, MEDICAID, SELFPAY ==
--- OUTSIDE RECORDS SUMMARY | 2024-04-27 09:16 | XMS_ITS | CCD ---
Author Organization [facility] Care Team Providers Care Tire Mold Tester Name Role Phone NEO ROBERTO Unavailable Unavailable BORGES III, ABBIE R Unavailable Unavailabl e Dolce, Stephen R. Admitting Unavailable Dolce, Stephen R. Attending Unavailable Borges, Abbie Primary Care Unavailable HeberZakia ashby Admitting Unavailable HeberZakia Attending Unavailable Borges, Abbie Primary Care Unavailable Borges III, Abbie R Primary Care Physician Unavailable Primary Care Provider Unavailabl e PROVIDER, UNKNOWN Admitting Unavailable PROVIDER, UNKNOWN Attending Unavailable PROVIDER, UNKNOWN Admitting Unavailable PROVIDER, UNKNOWN Attending Unavailable Perlita Reno Unavailable Jony III, DO Abbie R Primary Care Provider NEIL Reno Attending Provider DALTON, DR COTE Attending Unavailable DOLCE, DR COTE Admitting Unavailable POCOS, THERESA Montgomery Attending Unavailable POCOS, THERESA Montgoemry Referring Unavailable POCOS, THERESA Montgomery Attending Unavailable POCOS, THERESA Montgomery Referring Unavailable POCOS, THERESA Montgomery Attending Unavailable POCOS, THERESA Montgomery Attending Unavailable POCOS, THERESA Montgomery Referring Unavailable Dolce, Facundo Alfred Attending Unavailable Dolce, Facundo Alfred Attending Unavailable Dolce, Facundo Alfred Attending Unavailable Dolce, Facundo Alfred Attending Unavailable Dolce, Facundo Alfred Attending Unavailable Dolce, Facundo Alfred Attending Unavailable Dolce, Facundo Alfred Attending Unavailable Pocos, Theresa Montgomery Admitting Unavailable Pocos, Theresa Montgomery Attending Unavailable Pocos, Theresa Montgomery Referring Unavailable Dolce, Stephen Cross Attending Unavailable Borges, Abbie R Admitting Unavailable Borges, Abbie R Attending Unavailable Itz Lauren Attending Unavailable Dolce, Facundo Alfred Attending Unavailable Pocos, Theresa Montgomery Admitting Unavailable Pocos, Theresa Montgomery Attending Unavailable Pocos, Theresa Montgomery Referring Unavailable DO Bryce Funk Attending Unavailable Doljames, Facundo Alfred Attending Unavailable DolFacundo ramirez Attending Unavailable DolFacundo ramirez Attending Unavailable DolStephen ramirez Attending Unavailable Facundo Hoffman Attending Unavailable Doljames, Facundo Alfred Attending Unavailable Borges III, DO Abbie R Primary Care Provider MD Katie Culver Attending Provider Borges III, Abbie R Primary Care Unavailabl e Katie Culver Attending Unavailable Katie Culver Admitting Unavailable Katie Culver Attending Unavailable Katie Culver Admitting Unavailable Borges III, Abbie R Primary Care Unavailabl e Allergies Allergy Classification Reported Allergen(s) Allergy Type Date of Onset Reaction(s) Facility Penicillins (antibiotic) (1 source) Penicillins Drug Allergy 4 rash [facility] Shellfish (1 source) Shellfish Food Allergy 4 Unknown Reaction [facility] Unclassified (4 sources) Iodinated Contrast Media; Translations: [Iodinated Contrast Media] Allergy to substance 4 Unknown Reaction, Dizziness [facility] (20 sources) iodine; Translations: [IODINE] Drug Allergy 6 Unknown (qualifier value) [facility] (20 sources) Penicillins; Translations: [PENICILLINS] Propensity to adverse reactions to drug (disorder) 6 Unknown (qualifier value) [facility] (1 source) SHELLFISH CONTAINING PRODUCTS; Translations: [SHELLFISH CONTAINING PRODUCTS] Propensity to adverse reactions to drug (disorder) 7 [facility] Repository (20 sources) Shellfish; Translations: [shellfish] Propensity to adverse reactions (disorder) Pharyngeal swelling (finding), Difficulty breathing (finding) [facility] Repository (6 sources) Contrast media; Translations: [Contrast Dye] Propensity to adverse reactions Dizziness (finding) [facility] (1 source) Penicillin Drug Allergy rash [facility] Other (1 source) Shellfish Drug allergy Unknown [facility] Other (2 sources) Penicillins; Translations: [penicillins] Drug allergy Unknown (qualifier value) [facility] Comment on above: as a child (3 sources) Shellfish; Translations: [shellfish derived] Allergy to substance Swelling of Lip/Tongue/Thr oat [facility] Medications Current Medications Medication Drug Class(es) Dates Sig (Normalized) Sig (Original) acetaminophen 325 mg / HYDROcodone bitartrate 5 mg oral tablet (8 sources) Opioid Agonist Start: 04-22-2024 take 1 tablet by mouth every four to six hours Hydrocodone-Aceta minophen Active 1 - 2 TAB PO EVERY 4-6 HOURS 50 7 April 22, 2024 Start: 04-20-2024 take 1 tablet by janes th every six hours Hydrocodone-Acetaminophen Active 1 TAB P O Every 6 hours April 20, 2024 12:00am Start: 04-20-2024 Hydrocodone-Ac etaminophen Active TAB PO April 20, 2024 12:00am Start: 04-11-2024 [place] 325 mg-5 mg oral tablet 1 tab(s), Oral, q6hr as needed for pain, 12 tab(s), Refill(s) 0, [facility]/pharmacy #[id number], 177, cm, 04/11/24 16:32:00 EDT, Height/Length Dosing, 134, kg, 04/11/24 16:32:00 EDT, Weight Dosing Start Date: 04/11/24 Status: Ordered Start: 10-28-2023 [place] 325 mg-5 mg oral tablet See Instructions, for pain, 40 tab(s), Refill(s) 0, 1 - 2 po q4-6h prn pain Dx: S52.031D Duration: 7 days, [facility]/pharmacy #[id number], 177, cm, 10/22/23 12:25:00 EST, Height/Length Dosing, 132.5, kg, 10/22/23 12:25:00 EST, Weight Dosing Start Date: 10/28/23 Status: Ordered Start: 10-17-2023 End: 10-20-2023 take 1 tablet by mouth every six hours for pain [place] 325 mg-5 mg oral tablet 1 tab(s), Oral, q6hr for pain for 3 day(s), 10 tab(s), Refill(s) 0, [facility], 177.8, cm, 10/17/23 21:21:00 EST, Height/Length Dosing, 133.1, kg, 10/17/23 21:21:00 EST, Weight Dosing Start Date: 10/17/23 Stop Date: 10/20/23 Status: Ordered atorvastatin 20 mg oral tablet (20 sources) HMG-CoA Reductase Inhibitor Start: 04-20-2024 take 20 mg by mouth once daily at bedtime Atorvastatin Active 20 MG PO Daily at bedtime April 20, 2024 12:00am Start: 04-20-2024 Atorvastatin A ctive MG PO April 20, 2024 12:00am Start: 05-03-2014 take 1 tablet by janes th once daily at bedtime atorvastatin 20 mg Tab 20 mg = 1 tab(s), Oral, Once a day (at bedtime), Refills(s) 0, High cholesterol Start Date: 05/03/14 Status: Ordered docusate sodium 100 mg oral capsule (2 sources) Start: 10-28-2023 take 1 capsule by mouth twice daily as needed for constipation Colace 100 mg Cap 100 mg = 1 cap(s), Oral, BID, PRN for constipation, # 40 cap(s), Refills(s) 0, Pharmacy: [facility]/pharmacy #[id number], 177, cm, 10/22/23 12:25:00 EST, Height/Length Dosing, 132.5, kg, 10/22/23 12:25:00 EST, Weight Dosing Start Date: 10/28/23 Status: Ordered doxycycline hyclate 100 mg oral tablet (1 source) Tetracycline -class Drug Start: 04-22-2024 take 100 mg by mouth twice daily Doxycycline Hyclate Active 100 MG PO Twice daily 09 04April 22, 2024 12:00am hydroCHLOROthiazide 50 mg oral tablet (20 sources) Thiazide Diuretic Start: 04-20-2024 take 50 mg by mouth once daily in the morning Hydrochlorothiazide Active 50 MG PO Every morning April 20, 2024 12:00am Start: 04-20-2024 Hydrochlorothi azide Active MG PO April 20, 2024 12:00am Start: 01-27-2017 take 1 tablet by janes th once daily hydrochlorothiazide 25 mg oral tablet 25 mg = 1 tab(s), Oral, Daily, Refills(s) 0, diuretic/water pill Start Date: 01/27/17 Status: Ordered hydroCHLOROthiaz jamil 50 MG Oral for 90 Days Active Potassium Chloride (3 sources) Start: 04-20-2024 potassium chlo ride Active PO Every evening April 20, 2024 12:00am Start: 04-20-2024 potassium chlo ride Active PO April 20, 2024 12:00am rivaroxaban 10 mg oral tablet (20 sources) Factor Xa Inhibitor Start: 04-20-2024 take 1 tablet by mouth at dinner Rivaroxaban (Xarelto) 10 mg tablet Active 10 MG PO .with dinner April 20, 2024 12:00am Start: 05-14-2019 take 2 tablets by mo uth once daily Xarelto 2.5 mg oral tablet 5 mg = 2 tab(s), Oral, Daily, Refills(s) 0, Blood Thinner Start Date: 05/14/19 Status: Ordered take 1 tablet by janes once daily Xarelto 10 MG TAKE 1 TABLET BY [...] external cause] Onset: 07-05-20 Episodic Essential hypertension (4 sources) Hypertensive disorder 10-22-2023 Chronic Fracture of upper limb (9 sources) Closed fracture of olecranon process of ulna; Translations: [Displaced fracture of olecranon process without intraarticular extension of unspecified ulna, initial encounter for closed fracture] Onset: 10-17-20 Episodic Hemorrhoids (20 sources) Hemorrhoids; Translations: [Unspecified hemorrhoids] Onset: 03-21-20 Episodic Joint disorders and dislocations; trauma-related (8 sources) Dislocation of metacarpophalangeal joint; Translations: [Dislocation of metacarpophalangeal joint of unspecified finger, initial encounter] Onset: 04-11-20 Episodic Other and unspecified benign neoplasm (20 sources) Polyp of colon; Translations: [Polyp of colon] Onset: 03-21-20 Episodic Other and unspecified benign neoplasm (20 sources) History of polyp of colon 02-15-2022 Episod ic Other connective tissue disease (1 source) Pain in unspecified limb; Translations: [Pain in unspecified limb] Onset: 04-22-20 Episodic Other diseases of veins and lymphatics (20 [...] source) Venous insufficiency (chronic) (peripheral) Episodic Other nervous system disorders (1 source) Pain in limb; Translations: [Other acute postprocedural pain] 04-22-2024 Episodic Other nervous system disorders (1 source) Other acute postprocedural pain; Translations: [Other acute postprocedural pain] Onset: 04-22-20 Episodic Other non-traumatic joint disorders (1 source) Pain in right hip joint; Translations: [Pain in right hip] Onset: 07-05-20 Episodic Phlebitis; thrombophlebitis and thromboembolism (20 sources) Deep venous thrombosis; Translations: [Venous thrombosis] 06-07-2012 Episodic Varicose veins of lower extremity (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) [...] Test Name Value Interpretation Reference Range Facility XR finger LT 5th digiton XR finger LT 5th digit [facility] [place] [address] XRay Report Signed Patient: Yousif Aguilar MR#: [id number] : 1945 Acct:[id number] Age/Sex: 78 / M ADM Date: 04/22/24 Loc: [place] Room: Type: [facility] Attending Dr: Katie Culver MD Copies to: Katie Culver MD Ordering Provider: Katie Culver MD Date of Service: 04/22/24 XR/XR finger LT 5th digit: / PORTABLE LEFT FIFTH FINGER - 29 images CLINICAL DATA: History of fracture at the head of the fifth metacarpal. Intraoperative localization for arthroplasty. COMPARISON: 04/19/2024 Multiple AP, lateral and oblique spot films of the left hand were obtained before, during and after placement of a prosthesis at the distal fifth metacarpal. On the final images, alignment at the joint appears appropriate. No new fractures or dislocation are seen. XR/XR finger LT 5th digit IMPRESSION: STATUS POST ARTHROPLASTY AT THE FIFTH METACARPAL PHALANGEAL JOINT. Cumulative Air Kerma in mGy: 0.05022 mGy Impression dictated by: Becky Brown M.D.04/22/2024 12:42 PM Dictation Location: [place] [address] Transcribed By: [facility] 04/22/24 1242 Dictated By: Becky Brown MD 04/22/24 1239 Signed By: 04/22/24 1242 Normal [facility] Alanine aminotransferase [En zymatic activity/volume] in Serum or PlasmaOrdered By: Katie Culver on 04-21-2024 ALT [Catalytic activity/Vol] 11 U/L 7-52 [facility] Albumin [Mass/volume] in Ser um or Plasma by Bromocresol green (BCG) dye binding methoOrdered By: Katie Culver on 04-21-2024 Albumin BCG dye [Mass/Vol] 3.6 g/dL 3.5-5.7 [facility] Alkaline phosphatase [Enzyma tic activity/volume] in Serum or PlasmaOrdered By: Katie Culver on 04-21-2024 ALP [Catalytic activity/Vol] 141 U/L 34-104 [facility] Aspartate aminotransferase [ Enzymatic activity/volume] in Serum or PlasmaOrdered By: Katie Culver on 04-21-2024 AST [Catalytic activity/Vol] 16 U/L 13-39 [facility] Basophils Auto (Bld) [#/Vol] Ordered By: Katie Culver on 04-21-2024 Basophils (Bld) [#/Vol] 0.0 10*3/uL 0.0-0.2 [facility] Basophils/100 WBC Auto (Bld) Ordered By: Katie Culver on 04-21-2024 Basophils/100 WBC (Bld) 0.7 % . [facility] Bilirubin.total [Mass/volume ] in Serum or PlasmaOrdered By: Katie Culver on 04-21-2024 Bilirubin [Mass/Vol] 0.5 mg/dL 0.3-1.0 [facility] CMP with reflex to A1Con Albumin [Mass/Vol] 3.6 g/dL Normal 3.5-5.7 [facility] Comment on above: Performed By: #### C BC, CMP wRFX A1C #### [facility] [address] Albumin/Globulin [Mass ratio] 1.1 {ratio} Normal [facility] Comment on above: Performed By: #### C BC, CMP wRFX A1C #### [facility] [address] ALP [Catalytic activity/Vol] 141 U/L High 34-104 [facility] Comment on above: Result Comment: PERF ORMED BY: [place] [address] PATHOLOGIST PASTE MIXER JONA MCNAMARA M.D. Performed By: #### C BC, CMP wRFX A1C #### [address] ALT [Catalytic activity/Vol] 11 U/L Normal 7-52 [facility] Comment on above: Performed By: #### C BC, CMP wRFX A1C #### [address] Anion gap [Moles/Vol] 9.5 mmol/L Normal 6.0-15.0 [facility] Comment on above: Performed By: #### C BC, CMP wRFX A1C #### [address] AST [Catalytic activity/Vol] 16 U/L Normal 13-39 [facility] Comment on above: Performed By: #### C BC, CMP wRFX A1C #### [address] Bilirubin [Mass/Vol] 0.5 mg/dL Normal 0.3-1.0 [facility] Comment on above: Performed By: #### C BC, CMP wRFX A1C #### [place] [address] [place] Calcium [Mass/Vol] 8.6 mg/dL Normal 8.6-10.3 [facility] Comment on above: Performed By: #### C BC, CMP wRFX A1C #### [place] [address] [place] Chloride [Moles/Vol] 100 mmol/L Normal 98-107 [facility] Comment on above: Performed By: #### C BC, CMP wRFX A1C #### [place] [address] [place] CO2 [Moles/Vol] 32.1 mmol/L High 21.0-31.0 [facility] Comment on above: Performed By: #### C BC, CMP wRFX A1C #### [address] Creatinine [Mass/Vol] 0.95 mg/dL Normal 0.70-1.30 [facility] Comment on above: Performed By: #### C BC, CMP wRFX A1C #### [place] [address] [place] GFR/1.73 sq M.predicted MDRD (S/P/Bld) [Vol rate/Area] mL/min/{1.73_m2} Normal [facility] Comment on above: Performed By: #### C BC, CMP wRFX A1C #### [address] Globulin (S) [Mass/Vol] 3.2 g/dL Normal [facility] Comment on above: Performed By: #### C BC, CMP wRFX A1C #### [address] Glucose [Mass/Vol] 93 mg/dL Normal 70-100 [facility] Comment on above: Performed By: #### C BC, CMP wRFX A1C #### [address] Potassium [Moles/Vol] 3.6 mmol/L Normal 3.5-5.1 [facility] Comment on above: Performed By: #### C BC, CMP wRFX A1C #### [address] Protein [Mass/Vol] 6.8 g/dL Normal 6.4-8.9 [facility] Comment on above: Performed By: #### C BC, CMP wRFX A1C #### [place] [address] [place] Sodium [Moles/Vol] 138 mmol/L Normal 136-145 [facility] Comment on above: Performed By: #### C BC, CMP wRFX A1C #### [address] Urea nitrogen [Mass/Vol] 26 mg/dL High 7-25 [facility] Comment on above: Performed By: #### C BC, CMP wRFX A1C #### [facility] [address] Calcium [Mass/volume] in Ser um or PlasmaOrdered By: Katie Culver on 04-21-2024 Calcium [Mass/Vol] 8.6 mg/dL 8.6-10.3 [facility] Carbon dioxide, total [Moles /volume] in Serum or PlasmaOrdered By: Katie Culver on 04-21-2024 CO2 [Moles/Vol] 32.1 mmol/L 21.0-31.0 [facility] Chloride [Moles/volume] in S matthew or PlasmaOrdered By: Katie Culver on 04-21-2024 Chloride [Moles/Vol] 100 mmol/L 98-107 [facility] Complete Blood Count Auto Di ffon 04-21-2024 Basophils (Bld) [#/Vol] 0.0 10*3/uL Normal 0.0-0.2 [facility] Comment on above: Result Comment: PERF ORMED BY: [place] [address] PATHOLOGIST PASTE MIXER JONA MCNAMARA M.D. Performed By: #### C BC, CMP wRFX A1C #### [facility] [address] [place] [address] [place] Basophils/100 WBC (Bld) 0.7 % Normal . [facility] Comment on above: Performed By: #### C BC, CMP wRFX A1C #### [facility] [address] [place] [address] [place] Eosinophils (Bld) [#/Vol] 0.2 10*3/uL Normal 0.0-0.45 [facility] Comment on above: Performed By: #### C BC, CMP wRFX A1C #### [facility] [address] [place] [address] [place] Eosinophils/100 WBC (Bld) 3.0 % Normal . [facility] Comment on above: Performed By: #### C BC, CMP wRFX A1C #### [address] Erythrocyte distribution width (RBC) [Ratio] 13.8 % Normal 12.0-14.8 [facility] Comment on above: Performed By: #### C BC, CMP wRFX A1C #### [address] Hematocrit (Bld) [Volume fraction] 32.8 % Low 38.8-50.0 [facility] Comment on above: Performed By: #### C BC, CMP wRFX A1C #### [address] Hemoglobin (Bld) [Mass/Vol] 10.9 g/dL Low 13.0-17.0 [facility] Comment on above: Performed By: #### C BC, CMP wRFX A1C #### [address] Lymphocytes (Bld) [#/Vol] 1.7 10*3/uL Normal 1.00-4.8 [facility] Comment on above: Performed By: #### C BC, CMP wRFX A1C #### [address] Lymphocytes/100 WBC (Bld) 22.7 % Normal . [facility] Comment on above: Performed By: #### C BC, CMP wRFX A1C #### [address] MCH (RBC) [Entitic mass] 29.0 pg Normal 27.5-35.2 [facility] Comment on above: Performed By: #### C BC, CMP wRFX A1C #### [address] MCV (RBC) [Entitic vol] 87.0 fL Normal 83.5-101 [facility] Comment on above: Performed By: #### C BC, CMP wRFX A1C #### [address] Mean Corpuscular HGB Conc 33.3 g/dL Normal 32.5-35.6 [facility] Comment on above: Performed By: #### C BC, CMP wRFX A1C #### [address] Monocytes (Bld) [#/Vol] 0.7 10*3/uL Normal 0.0-0.8 [facility] Comment on above: Performed By: #### C BC, CMP wRFX A1C #### [address] Monocytes/100 WBC (Bld) 9.7 % Normal . [facility] Comment on above: Performed By: #### C BC, CMP wRFX A1C #### [address] Neutrophils (Bld) [#/Vol] 4.7 10*3/uL Normal 1.8-7.7 [facility] Comment on above: Performed By: #### C BC, CMP wRFX A1C #### [address] Neutrophils/100 WBC (Bld) 63.9 % Normal . [facility] Comment on above: Performed By: #### C BC, CMP wRFX A1C #### [address] NRBC% 0.1 /100{WBC} Normal 0-0.5 [facility] Comment on above: Performed By: #### C BC, CMP wRFX A1C #### [address] Platelet mean volume (Bld) [Entitic vol] 8.8 fL Normal 6.6-10.1 [facility] Comment on above: Performed By: #### C BC, CMP wRFX A1C #### [place] [address] [place] Platelets (Bld) [#/Vol] 252 10*3/uL Normal 150-450 [facility] Comment on above: Performed By: #### C BC, CMP wRFX A1C #### [facility] [address] [place] [id number] [place] RBC (Bld) [#/Vol] 3.77 10*6/uL Low 3.90-5.60 [facility] Comment on above: Performed By: #### C BC, CMP wRFX A1C #### [facility] [address] [place] [id number] [place] WBC (Bld) [#/Vol] 7.3 10*3/uL Normal 4.1-10.5 [facility] Comment on above: Performed By: #### C BC, CMP wRFX A1C #### [facility] [address] [place] [id number] [facility] Creatinine [Mass/volume] in Serum or PlasmaOrdered By: Katie Culver on 04-21-2024 Creatinine [Mass/Vol] 0.95 mg/dL 0.70-1.30 [facility] ECG 12 lead ECGon 04-21-2024 ECG 12 lead ECG [facility] Main [place] [address] [place] [address] Electrocardiograph Report Signed Patient: Yousif Aguilar MR#: [id number] : 1945 Acct:[id number] Age/Sex: 78 / M ADM Date: 04/21/24 Loc: Room: Type: [facility] Attending Dr: Katie Culver MD Ordering Provider: Katie Culver MD Date of Service: 04/21/24 ECG/ECG 12 lead ECG: Pre op Copies to: Test Reason : Blood Pressure : / mmHG Vent. Rate : 080 BPM Atrial Rate : 080 BPM P-R Int : 146 ms QRS Dur : 094 ms QT Int : 384 ms P-R-T Axes : 034 030 024 degrees QTc Int : 442 ms Normal sinus rhythm Normal ECG No previous ECGs available Confirmed by Amanda Cope ([id number]) on 04/23/2024 1:11:36 PM Referred By: PALOMO Electronically Signed By:Amanda Cope Transcribed By: MUS Signed By Amanda Cope MD 4 1311 Normal [facility] Eosinophils Auto (Bld) [#/Vo l]Ordered By: Katie Culver on 04-21-2024 Eosinophils (Bld) [#/Vol] 0.2 10*3/uL 0.0-0.45 [facility] Eosinophils/100 WBC Auto (Bl d)Ordered By: Katie Culver on 04-21-2024 Eosinophils/100 WBC (Bld) 3.0 % . [facility] Erythrocyte distribution wid th Auto (RBC) [Ratio]Ordered By: Katie Culver on 04-21-2024 Erythrocyte distribution width (RBC) [Ratio] 13.8 % 12.0-14.8 [facility] Globulin Calc (S) [Mass/Vol] Ordered By: Katie Culver on 04-21-2024 Globulin (S) [Mass/Vol] 3.2 g/dL [facility] Glucose [Mass/volume] in Ser um or PlasmaOrdered By: Katie Culver on 04-21-2024 Glucose [Mass/Vol] 93 mg/dL 70-100 [facility] Hematocrit Auto (Bld) [Volum e fraction]Ordered By: Katie Culver on 04-21-2024 Hematocrit (Bld) [Volume fraction] 32.8 % 38.8-50.0 [facility] Hemoglobin [Mass/volume] in BloodOrdered By: Katie Culver on 04-21-2024 Hemoglobin (Bld) [Mass/Vol] 10.9 g/dL 13.0-17.0 [facility] Leukocytes [#/volume] correc krystal for nucleated erythrocytes in Blood by Automated counOrdered By: Katie Culver on 04-21-2024 WBC corrected for nucl RBC Auto (Bld) [#/Vol] 7.3 10*3/uL 4.1-10.5 [facility] Lymphocytes Auto (Bld) [#/Vo l]Ordered By: Katie Culver on 04-21-2024 Lymphocytes (Bld) [#/Vol] 1.7 10*3/uL 1.00-4.8 [facility] Lymphocytes/100 WBC Auto (Bl d)Ordered By: Katie Culver on 04-21-2024 Lymphocytes/100 WBC (Bld) 22.7 % . [facility] MCH Auto (RBC) [Entitic mass ]Ordered By: Katie Culver on 04-21-2024 MCH (RBC) [Entitic mass] 29.0 pg 27.5-35.2 [facility] MCHC Auto (RBC) [Mass/Vol]Or dered By: Katie Culver on 04-21-2024 MCHC (RBC) [Mass/Vol] 33.3 g/dL 32.5-35.6 [facility] MCV Auto (RBC) [Entitic vol] Ordered By: Katie Culver on 04-21-2024 MCV (RBC) [Entitic vol] 87.0 fL 83.5-101 [facility] Monocytes Auto (Bld) [#/Vol] Ordered By: Katie Culver on 04-21-2024 Monocytes (Bld) [#/Vol] 0.7 10*3/uL 0.0-0.8 [facility] Monocytes/100 WBC Auto (Bld) Ordered By: Katie Culver on 04-21-2024 Monocytes/100 WBC (Bld) 9.7 % . [facility] Neutrophils Auto (Bld) [#/Vo l]Ordered By: Katie Culver on 04-21-2024 Neutrophils (Bld) [#/Vol] 4.7 10*3/uL 1.8-7.7 [facility] Neutrophils/100 WBC Auto (Bl d)Ordered By: Katie Culver on 04-21-2024 Neutrophils/100 WBC (Bld) 63.9 % . [facility] No Panel InformationOrdered By: Katie Culver on 04-21-2024 Estimated GFR (CKD-EPI) > 60.0 mL/Min [facility] Creatinine Clearance (Chem N/A [facility] Nucleated erythrocytes [Pres ence] in Blood by Automated countOrdered By: Katie Culver on 04-21-2024 Nucleated RBC Auto Ql (Bld) 0.1 /100{WBC} 0-0.5 [facility] Platelet mean volume Auto (B ld) [Entitic vol]Ordered By: Katie Culver on 04-21-2024 Platelet mean volume (Bld) [Entitic vol] 8.8 fL 6.6-10.1 [facility] Platelets Auto (Bld) [#/Vol] Ordered By: Katie Culver on 04-21-2024 Platelets (Bld) [#/Vol] 252 10*3/uL 150-450 [facility] Potassium [Moles/volume] in Serum or PlasmaOrdered By: Katie Culver on 04-21-2024 Potassium [Moles/Vol] 3.6 mmol/L 3.5-5.1 [facility] Protein [Mass/volume] in Ser um or PlasmaOrdered By: Katie Culver on 04-21-2024 Protein [Mass/Vol] 6.8 g/dL 6.4-8.9 [facility] RBC Auto (Bld) [#/Vol]Ordere d By: Katie Culver on 04-21-2024 RBC (Bld) [#/Vol] 3.77 10*6/uL 3.90-5.60 [facility] Serum or plasma albumin/glob ulin mass ratioOrdered By: Katie Culver on 04-21-2024 Albumin/Globulin [Mass ratio] 1.1 {ratio} [facility] Serum or plasma anion gap de terminationOrdered By: Katie Culver on 04-21-2024 Anion gap [Moles/Vol] 9.5 mmol/L 6.0-15.0 [facility] Sodium [Moles/volume] in Ser um or PlasmaOrdered By: Katie Culver on 04-21-2024 Sodium [Moles/Vol] 138 mmol/L 136-145 [facility] Urea nitrogen [Mass/volume] in Serum or PlasmaOrdered By: Katie Culver on 04-21-2024 Urea nitrogen [Mass/Vol] 26 mg/dL 7-25 [facility] WBC Auto (Bld) [#/Vol]Ordere d By: Katie Culver on 04-21-2024 WBC (Bld) [#/Vol] 7.3 10*3/uL 4.1-10.5 [facility] CT 3D Reconstruction [facility] 04-12-2024 CT 3D Reconstruction Separate [facility] Exam Date/Time: 04/11/2024 18:30 EDT Reason for Exam: Correlation to CT Report PLEASE SEE CT Upper Extremity w/o Contrast Left REPORT DATED: 04/11/2024. All CT scans at this facility use dose modulation, iterative reconstruction, and/or weight based dosing when appropriate to reduce radiation dose to as low as reasonably achievable. Ordering Provider: Itz Lauren FINAL REPORT Dictated: 04/12/2024 8:54 am Kavin Duran MD Signed (Electronic Signature): 04/12/2024 8:54 am Signed by: Kavin Duran MD Transcribed by: SARAH Technologist: [facility] CT Head or Brain w/o Contras ton 04-12-2024 CT Head or Brain w/o Contrast Exam Date/Time: 04/11/2024 16:44 EDT Reason for Exam: Head trauma, minor;Other (please specify) Report IMPRESSION: NO ACUTE INTRACRANIAL PROCESS IDENTIFIED. EXAM: CT Head or Brain w/o Contrast DATE: 04/11/2024 4:36 PM CLINICAL HISTORY: Head trauma, minor. COMPARISON: 07/05/2022. TECHNIQUE: Routine. All CT scans at this facility use dose modulation, iterative reconstruction, and/or weight based dosing when appropriate to reduce radiation dose to as low as reasonably achievable. FINDINGS: There is no intracranial hemorrhage, mass effect, midline shift, extra-axial collection, evidence of hydrocephalus, skull fracture, or a recent ischemic infarct identified. Mild generalized cerebral volume loss and mild patchy supratentorial white matter changes are again noted. The mastoid air cells and visualized paranasal sinuses are essentially clear. Ordering Provider: Itz Lauren FINAL REPORT Dictated: 04/12/2024 8:25 am Kavin Duran MD Signed (Electronic Signature): 04/12/2024 8:25 am Signed by: Kavin Duran MD Transcribed by: SARAH Technologist: [facility] CT Upper Extremity w/o Contr ast Lefton 04-12-2024 CT Upper Extremity w/o Contrast Left Exam Date/Time: 04/11/2024 18:30 EDT Reason for Exam: Trauma Report IMPRESSION: ANTERIORLY DISLOCATED LEFT FIFTH METACARPAL ARTICULAR HEAD FRACTURE. EXAM: CT Upper Extremity w/o Contrast Left , CT 3D Reconstruction Separate Wkst DATE: 04/11/2024 6:18 PM CLINICAL HISTORY: Fracture. COMPARISON: Left hand radiographs from earlier 04/11/2024. TECHNIQUE: Spiral imaging of the left hand and wrist was performed with routine multiplanar reconstructions and volume rendered images on a 3D workstation; as requested. All CT scans at this facility use dose modulation, iterative reconstruction, and/or weight based dosing when appropriate to reduce radiation dose to as low as reasonably achievable. FINDINGS: A predominantly transverse fracture of the head of the left fifth metacarpal is present, with an approximately 1 cm articular surface head fragment dislocated anteriorly and superiorly approximately 1.2 cm. A few very small fracture fragments are noted just distal to the intact distal metadiaphysis. There is no organized hematoma, worrisome bone destruction, radiodense foreign bodies, or other posttraumatic complication identified elsewhere. Mild osteoarthritic changes and a very small nonunited remote ulnar styloid fracture or accessory ossicle are noted. Ordering Provider: Itz Lauren FINAL REPORT Dictated: 04/12/2024 8:53 am Kavin Duran MD Signed (Electronic Signature): 04/12/2024 8:53 am Signed by: Kavin Duran MD Transcribed by: SARAH Technologist: INÉS [facility] EMS Documentationon 04-12-20 EMS Documentation Please click on link to see report [facility] Comment on above: Result Comment: Miss ing Attachment - attachment exceeds size limitation [email or web address] Can be viewed in source system RAD - Preliminary Cat Scan R eporton 04-12-2024 RAD - Preliminary Cat Scan Report [id number] FF [facility] XR Hand 3+ Views Lefton 03-31 XR Hand 3+ Views Left Exam Date/Time: 04/11/2024 17:31 EDT Reason for Exam: Pain, Traumatic Report IMPRESSION: INTERVAL LEFT FIFTH MCP JOINT REDUCTION. ANTERIOR DISLOCATION OF THE LEFT FIFTH METACARPAL HEAD ARTICULAR SURFACE. EXAM: XR Hand 3+ Views Left DATE: 04/11/2024 5:20 PM CLINICAL HISTORY: Pain, Traumatic. COMPARISON: Earlier 04/11/2024. TECHNIQUE: PA, lateral, and oblique radiographs of the left hand were obtained. FINDINGS: Since the earlier study, the left fifth MCP joint dislocation has been reduced. However, an approximately 1 cm fracture or alignment of the articular surface of the head of the left fifth metacarpal is now dislocated anteriorly and proximally. Ordering Provider: Itz Lauren FINAL REPORT Dictated: 04/12/2024 8:35 am Kavin Duran MD Signed (Electronic Signature): 04/12/2024 8:35 am Signed by: Kavin Duran MD Transcribed by: SARAH Technologist: INÉS Technical Comments Radiation Dose: Ka,r in mGy = na DAP = na [facility] XR Hand 3+ Views Left Exam Date/Time: 04/11/2024 16:38 EDT Reason for Exam: Pain, Traumatic Report IMPRESSION: LEFT FIFTH MCP DORSAL DISLOCATION. SUSPECT, COMMINUTED FRACTURES OF THE DISTAL LEFT FIFTH METACARPAL. EXAM: XR Hand 3+ Views Left DATE: 04/11/2024 4:37 PM CLINICAL HISTORY: Pain, Traumatic. COMPARISON: None available. TECHNIQUE: PA, lateral, and oblique radiographs of the left hand were obtained. FINDINGS: The study is limited by patient positioning secondary to pain. Dorsal dislocation of the base of the left fifth proximal phalanx is present with respect to the head of the left fifth metacarpal. A few small mildly displaced fracture fragments posterolateral medial to the neck of the left fifth metacarpal probably are donated from the left fifth metacarpal neck. There is no other fracture, or other dislocation, worrisome bone destruction, radiodense foreign bodies, or other posttraumatic complication identified elsewhere. Mild osteoarthritic changes and a very small nonunited remote ulnar styloid fracture or accessory ossicle are noted. Ordering Provider: Itz Lauren FINAL REPORT Dictated: 04/12/2024 8:33 am Kavin Duran MD Signed (Electronic Signature): 04/12/2024 8:33 am Signed by: Kavin Duran MD Transcribed by: SARAH Technologist: SYDNEY Technical Comments Radiation Dose: Ka,r in mGy = na DAP = na [facility] Consent for Treatmenton 03-31 Consent for Treatment [id number] FF [facility] Discharge Instructionson Discharge Instructions [id number]#[id number] FF [facility] ED Clinical Summaryon 2023 ED Clinical Summary (Inserted Image. Clarissa ble to display) [address] [address] ED Clinical Summary Person Information Name: YOUSIF AGUILAR Olga Lidia/[facility] Age: 78 Years : 1945 Sex: Male Language: Bruneian PCP: Abbie Borges III, DO Marital Status: MRN: [id number] Visit Id: Visit Reason: Hand pain-swelling; Fall; FALL Speciality: Acuity: 3 Enc Type: Emergency Med Service: Emergency Arrival: 04/11/2024 16:24:10 Discharge: 04/11/2024 19:40:16 LOS: 000 03:16 Checkin: 04/11/2024 16:24:10 Checkout: 04/11/2024 19:40:16 Dispo Type: Home (Routine DC) EVENTS: Event Name Event Status Request Date/Time Start Date/Time Complete Date/Time Arrive Complete 04/11/2024 16:24:10 04/11/2024 16:24:10 04/11/2024 16:24:10 Document Home Meds Request 04/11/2024 16:24:10 Triage Complete 04/11/2024 16:24:10 04/11/2024 16:32:41 04/11/2024 16:32:41 Bed Assign Complete 04/11/2024 16:24:10 04/11/2024 16:24:10 04/11/2024 16:24:10 Dr Exam Complete 04/11/2024 16:24:10 04/11/2024 16:25:40 04/11/2024 16:25:40 RN Exam Complete 04/11/2024 16:24:10 04/11/2024 17:12:23 04/11/2024 17:12:23 Registration Complete 04/11/2024 16:25:40 04/11/2024 17:28:46 04/11/2024 17:28:46 X-Ray Complete 04/11/2024 16:26:02 04/11/2024 16:37:30 04/11/2024 16:38:35 CT Complete 04/11/2024 16:26:25 04/11/2024 16:36:27 04/11/2024 16:44:49 Wet Read Request 04/11/2024 16:38:35 Meds Admin Complete 04/11/2024 16:50:38 04/11/2024 16:52:56 Trauma II Request 04/11/2024 17:10:51 Fall Risk Request 04/11/2024 17:12:23 X-Ray Complete 04/11/2024 17:14:53 04/11/2024 17:20:38 04/11/2024 17:31:10 Reg Complete Request 04/11/2024 17:28:46 Reg Bed Request Complete 04/11/2024 17:28:46 04/11/2024 17:28:46 04/11/2024 17:28:46 CT Complete 04/11/2024 18:10:23 04/11/2024 18:18:51 04/11/2024 18:30:52 CT Complete 04/11/2024 18:12:29 04/11/2024 18:18:51 04/11/2024 18:30:52 Discharge Complete 04/11/2024 19:05:49 04/11/2024 19:40:21 04/11/2024 19:40:21 Transfer Complete 04/11/2024 19:40:21 04/11/2024 19:40:21 04/11/2024 19:40:21 ADDRESS: [address] [place] [id number] PHYS DOC NOTES: MEDICAL INFORMATION: Prescriptions Given: Medications to Continue Taking That Have Changed [facility]/pharmacy #[id number], [address] [place] [phone], [phone] START: acetaminophen-hydrocodon e ([place] 325 mg-5 mg oral tablet) 1 Tablets By Mouth every 6 hours as needed as needed for pain. Refills: 0. Other Medications START: acetaminophen-hydrocodon e ([place] 325 mg-5 mg oral tablet) 1 - 2 po q4-6h prn pain Dx: S52.031D Duration: 7 days; as needed for pain. Refills: 0. Medications to Continue with No Changes Other Medications atorvastatin (atorvastatin 20 mg Tab) 1 Tablets By Mouth once a day (at bedtime). docusate (Colace 100 mg Cap) 1 Capsules By Mouth 2 times a day as needed for constipation. Refills: 0. hydrochlorothiazide (hydrochlorothiazide 25 mg oral tablet) 1 Tablets By Mouth every day. rivaroxaban (Xarelto 2.5 mg oral tablet) 2 Tablets By Mouth every day. PATIENT EDUCATION INFORMATION: Instructions: Finger or Thumb Dislocation; Metacarpal Fracture; Cast or Splint Care, Adult Follow up: With: Address: When: Syd Orozco [address] [place] [address] Business (1) In 3 days 04/14/2024 Comments: Make sure to follow-up with Dr. Orozco as instructed. Return to the emergency room if your pain gets worse or any new symptoms. With: Address: When: Abbie Borges [address] [place] [address], [place] [address] [employer] (1) In 3 days DIAGNOSIS: 1:Fracture of fifth metacarpal bone of left hand; 2:Dislocation of MCP joint of hand [facility] ED Note-Physicianon 04-11-20 ED Note-Physician Basic Information Time Seen: Itz Lauren M.D. 04/11/2024 16:25 Chief Complaint Pt came with the squad d/t fall today at 1530, pt said he was weeding his lawn when he loss his footing,said he fell forward and had to use his L hand as support when she fell, twisted her pinky. 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 The patient states prior to the arrival he fell. He stated he was cutting the weeds when he lost his footing while he was walking with a cane and fell. The patient states he was trying to protect his right elbow and he landed on his hand. The patient is complaining of pain on the left hand and points to over the left fifth MCP joint. The patient denies hitting his head. He denies any headache denies any neck pain. The patient denies any back pain. He denies any chest pain denies any abdominal pain. The patient denies any other associated symptoms. Review of Systems Additional ROS info: Except as noted in the above Review of Systems and in the History of Present Illness all other systems have been reviewed and are negative or noncontributory. Physical Exam Vitals & Measurements T: 36.6 ?C(Oral) HR: 83(Peripheral) RR: 15 BP: 147/70 SpO2: 94% HT: 177 cm WT: 134 kg BMI: 42.77 General: alert, no acute distress Skin: warm, dry, Head: no trauma, normocephalic Neck: Trachea midline, no tenderness, supple Eye: normal conjunctiva, sclera clear ENMT: Oral mucosa moist, no pharyngeal erythema or exudate Cardiovascular: regular rate and rhythm Respiratory: Lungs CTA, respirations non labored, breath sounds equal, Gastrointestinal: soft, non distended, no tenderness, no guarding Back: No tenderness, Normal ROM Extremities: there is deformity of left fifth MCP joint. Neurovascular is intact distally. Neurological: Alert and oriented, motor strength equal & normal bilaterally, sensation equal & normal bilaterally, speech normal, no focal neuro deficits Psychiatric: cooperative, affect appropriate for age, Procedure Closed reduction MCP dislocation: Correct patient:Confirmed Correct procedure: Confirmed Correct side: Confirmed Correct site: Confirmed Consent by: Patient Consent type: Verbal Indication: Dislocation Location: Left Hand Fingers: 5th MCP Pre-procedure exam: Circulation, motor, and sensory intact Procedural sedation: none Local anesthesia: 7_ml 1% lidocaine Technique: Traction-countertraction Description: Post procedure exam: Alignment improved X-Ray results: Good alignment however the distal fractured fragment of the metacarpal bone has been displaced during the manipulation Splint: Ortho-Glass ulnar gutter Patient tolerated: well Complications: Other distal fractured fragment of the metacarpal bone displaced Multiple attempts: 2 attempts Performed by (rpt): Self Total time: 20_ min Ortho-Glass ulnar gutter splint applied on the left hand. Neurovascular was reexamined post splint application was intact. [] Patient has one or more of the following conditions that are excluded from the measure (select all that apply): [] Patient has ventricular shunt [] Patient has brain tumor [] Patient is [] Patient has multi-system trauma [] Patient taking an antiplatelet medication (excluding aspirin) [] Head CT not ordered by emergency manager care management [] Head CT ordered for reasons other than trauma [x] Patient is 18 or older, presenting with minor blunt head trauma. Head CT (including cosigned orders) was ordered by an emergency manager care management for trauma because (select one or more):[SATISFIES MIPS PERFORMANCE]Reasons: [x] Patient is 65 or older [] Patient GCS < 15 [] Patient has focal neurologic deficit [] Patient has severe headache [] Patient is vomiting [] Severe/dangerousmechanis m of injury was identified(select one or more): []MVA with: patient ejection, of another passenger, rollover, speed > 40mph, airbag deployment, motor bus driver or passenger on ATV or motorcycle [] pedestrian or bicyclist without helmet: struck my motorized vehicle, in bicycle crash [] fall > 3 feet or 5 stairs [] head struck by high-impact object (hammer, baseball, baseball bat, heavy object such as falling brick) [] Other: [] (ie. assault description) [] Patient has physical signs of basilar skull fracture present (including hemotympanum, ``raccoon?? eyes, CSF leakage from ear or nose, Nicole?s sign) [] Patient suspected of taking anticoagulant medication [] Patient has thrombocytopenia [x] Patient has coagulopathy [] Patient has loss of consciousness and (must select one of the following): []Headache []Short term memory deficit []Alcohol/drug intoxication []Evidence of trauma above the clavicles []Age 60 or older [] Post-traumatic seizure [] Patient has post-tra (more content not included)... [facility] Comment on above: Result Comment: Elec tronically Signed By: Itz Lauren M.D..love\Date and Time Signed: 04/11/24 19:44 EDT ED Patient Education Noteon 04-11-2024 ED Patient Education Note Orthopedics Finger or Thumb Dislocation Finger or thumb dislocation happens when the bones in a joint move out of their normal positions. Dislocations may occur in any joint in the fingers or thumb. Finger or thumb dislocation is a common and serious injury. What are the causes? This condition is caused by a forceful impact or injury to the hand or when the finger or thumb bends the wrong way (hyperextension). What increases the risk? You are more likely to develop this condition if you: ? Have previously injured your hand. ? Do repetitive motions with your hands, such as when playing sports or doing heavy labor. ? Have poor hand strength and flexibility. What are the signs or symptoms? Symptoms of this condition may include: ? Deformity of the injured area. The affected joint may look like it is out of place or at an odd angle. ? Pain, swelling, and bruising in the injured area. ? Limited range of motion of the finger or thumb. How is this diagnosed? This condition is diagnosed with a physical exam. You may also have X-rays to check for breaks (fractures) in your bones. How is this treated? For mild dislocations, this condition is treated by moving your finger or thumb back into position (reduction). Your health care provider may do this by hand (manually) or with surgery. You may need surgical reduction if you have: ? A severe dislocation. ? A dislocation that cannot be reduced manually. ? A fractured bone. ? An open wound. After reduction, your finger or thumb may be kept in a fixed position (immobilized) with a splint for up to 6 weeks. You may also need physical therapy. In some cases, you may need to go to a health care provider who specializes in bone disorders (orthopedist) to help treat your condition. Follow these instructions at home: If you have a splint: ? Do not put pressure on any part of the splint until it is fully hardened. This may take several hours. ? Wear the splint as told by your health care provider. Remove it only as told by your health care provider. ? Loosen the splint if your fingers tingle, become numb, or turn cold and blue. ? Keep the splint clean. ? If the splint is not waterproof: ? Do not let it get wet. ? Cover it with a watertight covering when you take a bath or shower. Managing pain, stiffness, and swelling ? If directed, put ice on the injured area. ? If you have a removable splint, remove it as told by your health care provider. ? Put ice in a plastic bag. ? Place a towel between your skin and the bag. ? Leave the ice [...] provider what activities are safe for you. ? Rest and limit your hand movement as told by your health care provider. ? If physical therapy was prescribed, do exercises as told by your health care provider. Driving ? Ask your health care provider if the medicine prescribed to you requires you to avoid driving or using heavy machinery. ? Ask your health care provider when it is safe to drive if you have a splint on your hand. General instructions ? Take bhou-dbs-upkvawx and prescription medicines only as told by your health care provider. ? Do not take baths, swim, or use a hot tub until your health care provider approves. Ask your health care provider if you may take showers. You may only be allowed to take sponge baths. ? Do not use any products that contain nicotine or tobacco, such as cigarettes, e-cigarettes, and chewing tobacco. These can delay bone healing. If you need help quitting, ask your health care provider. ? Keep all follow-up visits as told by your health care provider. This is important. Contact a health care provider if you have: ? Problems with your splint. ? Pain that gets worse or does not get better with medicine. ? More bruising, swelling, or redness in your injured area. ? Difficulty moving your finger or thumb after it heals. Get help right away if: ? You develop numbness in your finger or thumb. ? You cannot move your finger or thumb. ? Your finger or thumb is pale or cold. ? You have severe pain. Summary ? Finger or thumb dislocation happens when the bones in a joint move out of their normal positions. ? This condition is caused by a forceful impact or injury to the hand. ? For mild dislocations, this condition is treated by moving your finger or thumb back into position (reduction). ? You may need surgery if you have a severe dislocation, an open wound, or a fractured bone. This information is not intended to replace advice given to you by your health care provider. Make sure you discuss any questions you have with your health care provider. Document Revised: (more content not included)... [facility] ED Patient Summaryon 024 ED Patient Summary (Inserted Image. Clarissa ble to display) [place] [id number] Patient Discharge Instructions Person Information Name: YOUSIF AGUILAR Age: 78 Years Arrival Date: 04/11/2024 16:24:10 Discharge Diagnosis: 1:Fracture of fifth metacarpal bone of left hand; 2:Dislocation of MCP joint of hand Primary Care Physician: Abbie Borges III, DO Provider Information Primary Provider: Itz Lauren M.D. Advanced Vocational Nursing Instructor:None The exam and treatment you received in the Emergency Department were for an urgent problem and are not intended as complete care. It is important that you follow up with a doctor, nurse practitioner, or physician?s benefits assistant for ongoing care. If your symptoms become worse or you do not improve as expected and you are unable to reach your usual health care provider, you should return to the Emergency Department. We are available 24 hours a day. YOUSIF AGUILAR has been given the following list of patient education materials, prescriptions and follow-up instructions: Follow-up Instructions: With: Address: When: Syd Orozco [address] [place] [address] [facility] (1) In 3 days 04/14/2024 Comments: Make sure to follow-up with Dr. Orozco as instructed. Return to the emergency room if your pain gets worse or any new symptoms. With: Address: When: Abbie Borges [address] [place] [address] [facility] (1) In 3 days In the event that this physician does not participate in your insurance network, please consult with your insurance company to find a nearby participating provider. Patient Education Materials: Finger or Thumb Dislocation; Metacarpal Fracture; Cast or Splint Care, Adult A MESSAGE TO ALL PATIENTS REGARDING OPIOIDS PRESCRIPTION OPIOIDS: WHAT YOU NEED TO KNOW Prescription opioids can be used to help relieve nrtvoews-rv-vnxezc pain and are often prescribed following a [...] mail-back program, or flush them down the to (more content not included)... [facility] ED Traumaon 04-11-2024 ED Trauma [id number] FF [facility] Monitor Recordon 04-11-2024 Monitor Record [id number] FF [facility] Pre-Arrival Noteon Pre-Arrival Note Pre-Arrival Summary Name: , ncems Current Date: 04/11/2024 16:24:29 EDT Gender: Male Date of : Age: 78 Pre-Arrival Type: EMS ETA: 04/11/2024 16:45:00 EDT Primary Care Physician: Presenting Problem: fall/hand pain Pre-Arrival User: Gualberto Green RN Referring Source: Location: [place] Completion Date/Time: 04/11/2024 16:16:00 [facility] Emergency Department Pre-Hospital Report Form Vital Signs: Pre-Hospital Report: Treatment in Route: Response to Treatment: Misc. Issues: [facility] RAD - Preliminary Cat Scan R eporton 04-11-2024 RAD - Preliminary Cat Scan Report [id number]#[id number] FF [facility] IntraOperative Documentson 1 01-04-2023 IntraOperative Documents [id number]#1.00TIF F [facility] Progress Note-Physicianon Progress Note-Physician Patient: YOUSIF AGUILAR Age: 77 years Sex: Male : 1945 Associated Diagnoses: None Author: MD Lakhani Ahmad F Postoperative Information Postoperative disposition: Postoperative disposition: To PACU. Optimetrix number: Optimetrix number [id number]. Anesthetic utilized: General. Health Status Allergies: Allergic [...] when meets criteria ( To home ). [facility] Comment on above: Result Comment: Elec tronically Signed By: MD Lakhani Ahmad F\.br\Date and Time Signed: 11/01/23 18:16 EST Progress Note-Physician Patient: YOUSIF AGUILAR Age: 77 years Sex: Male : 1945 Associated Diagnoses: None Author: MD Lakhani Ahmad F Preoperative Information Time patient last [...] constipation, # 40 cap(s), Refills(s) 0, Pharmacy: [facility]/pharmacy #[id number], 177, cm, 10/22/23 12:25:00 EST, Height/Length Dosing, 132.5, kg, 10/22/23 12:25:00 EST, Weight Dosing [place] 325 mg-5 mg oral tablet: See Instructions, for pain, 40 tab(s), Refill(s) 0, 1 - 2 po q4-6h prn pain Dx: S52.031D Duration: 7 days, [facility]/pharmacy #[id number], 177, cm, 10/22/23 12:25:00 EST, Height/Length [...] Problems High blood pressure / SNOMED CT 8890878073 / Confirmed Hypercholesterolemia / ICD-9-CM 272.0 / Confirmed Lymphedema / SNOMED CT 40161165 / Confirmed 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 / SNOMED CT 075778156 / Confirmed History of colon polyps / SNOMED CT 0940689056 / Confirmed Colon polyp / SNOMED CT 105522626 / Confirmed Diverticulosis / SNOMED CT 7136001250 / Confirmed Hemorrhoids / SNOMED CT 257366249 / Confirmed Extreme obesity / SNOMED CT 02Z63643-4TB5-32K5-M187- [id number] / Possible Resolved: DVT / SNOMED CT 423810470 Resolved: PE - Pulmonary embolism / SNOMED CT 5406121356 Resolved: Stasis dermatitis co-occurrent with venous ulcer of right lower extremity due to chronic peripheral venous hypertension / SNOMED CT 622932987457796 Resolved: Stasis dermatitis of left lower extremity due to peripheral venous hypertension / SNOMED CT 071812749392558 Resolved: Stasis dermatitis of right lower extremity due to peripheral venous hypertension / SNOMED CT 153848640475724 Resolved: Stasis dermatitis and venous ulcer of left lower extremity due to chronic peripheral venous hypertension / SNOMED CT 430833561187066 Histories Past Medical History: Active Hypercholesterolemia (272.0) Lymphedema (12925947) Resolved PE - Pulmonary embolism (9653854129): Onset on 12/01/2005 at 60 years. Resolved. DVT (108808569): Resolved. Stasis dermatitis co-occurrent with venous ulcer of right lower extremity due to chronic peripheral venous hypertension (147106224146567): Resolved. Stasis dermatitis of left lower extremity due to peripheral venous hypertension (513294027112805): Resolved. Stasis dermatitis of right lower extremity due to peripheral venous hypertension (999028891139873): Resolved. Stasis dermatitis and venous ulcer of left lower extremity due to chronic peripheral venous hypertension (288384889753463): Resolved. Family History: Hyperlipidemia Mother Heart disease Father Non Hodgkin's lymphoma Mother Procedure history: ORIF of Right Elbow (334637819) on 10/28/2023 at 77 Years. Colonoscopy (119922693) on 03/04/2022 at 76 Years. EVLT RLSV [...] fracture in 1966 at 21 Years. Appendectomy (166256609) in 1952 at 7 Years. bilateral wrist [...] visible). Respiratory (more content not included)... Normal [facility] Comment on above: Result Comment: Elec tronically Signed By: MD Kar, Jemima Bella\.br\Date and Time Signed: 11/01/23 18:14 EST Operative Reporton 3 Operative Report SURGERY DATE: 2022 KEEL PRESS OPERATOR: Samuel Gonsalez PA-C PREOPERATIVE DIAGNOSIS: Right olecranon fracture POSTOPERATIVE DIAGNOSIS: Right olecranon fracture OPERATION: Right olecranon open reduction internal fixation ANESTHESIA: General ANESTHESIOLOGIST: CINDY Faria ESTIMATED BLOOD LOSS: None SPECIMEN: None COMPLICATIONS: None IMPLANT: 0.062 K-wire x2 with 18 gauge dental wire for a lslibz-bd-rlwon tension band construct HISTORY/OPERATIVE INDICATIONS: Yousif is [...] visualized. It is then fixed with a sylrza-rz-nnvlz construct as described below. Samuel Gonsalez did [...] This is done in the standard fashion. Pfhheq-lc-cekmt is then applied, tensioned accordingly, is cut [...] patient is subsequently extubated[facility] and taken to Post-Anesthesia Care Unit in stable condition. He will be discharged this day. Theresa Villalpando D.O. Dictated: 10/28/2023 [id number] Transcribed: 10/29/2023 cc:Abbie Borges III, D.O. [facility] Comment on above: Result Comment: Elec tronically Signed By: Theresa Villalpando DO\.br\Date and Time Signed: 10/30/23 11:53 EST Consent for Anesthesiaon Consent for Anesthesia [id number]#1.00TIF F [facility] Discharge Instructionson Discharge Instructions [id number]#1.00TIF F [facility] Insurance Correspondence Off iceon 10-29-2023 Insurance Correspondence Office [id number]#1.00TI FF [facility] IntraOperative Documentson 1 12-29-2022 IntraOperative Documents [id number]#1.00TIF F [facility] Main OR Intraoperative Recor don 10-29-2023 Main OR Intraoperative Record IntraOp Document Type FT Summary Primary Physician: Theresa Villalpando DO Finalized Date/Time: 10/29/23 12:32:07 Pt. Name: DANIAYOUSIF D.O.B./Sex: 1945 Male Med Rec #: [id number] Physician: Theresa Villalpando DO Financial #: [id number] Pt. Type: A Room/Bed: [place] [address] Admit/Disch: 10/28/23 10:36:00 - 10/28/23 17:40:00 Institution: [...] D Role Performed Anesthesiologist Surgeon - Primary PA/BURGLARY INVESTIGATOR Narrow Fabric Calenderer Time In 10/28/23 14:07:00 10/28/23 14:07:00 10/28/23 14:07:00 Time Out 10/28/23 15:30:00 10/28/23 15:30:00 10/28/23 15:30:00 Procedure ELBOW FRACTURE ELBOW FRACTURE ELBOW FRACTURE ORIF(Right) ORIF(Right) ORIF(Right) Comments DR LAKHANI SUPERVISING Last Modified By: Idris Brooks Terry T Sweene, Terry T 10/28/23 15:42:39 10/28/23 15:42:39 10/28/23 15:42:39 Entry 4 Entry 5 Entry 6 Case Attendee Idris Brooks Laura C Roll RT, Daniel P Role Performed Environment Coordinator - Primary Scrub - Primary Railroad Engineer Time In 10/28/23 14:07:00 10/28/23 14:07:00 10/28/23 [...] Out Ricardo Valerio, Given Participants Pocos DO, Wallace Fontana PA-C, Samuel Alfred, Idris Brooks Miller, Laura C, Hammad RTNeo Time Out Complete 10/28/23 14:28:00 Outcomes Met? [...] and tissue Entry 1 Skin Integrity Intact, [place], Warm, and Skin Abnormality No Dry Outcomes [...] symptoms o (more content not included)... Normal [facility] Preoperative Documentson Preoperative Documents [id number]#1.00TIF F Normal [facility] XR Elbow 2 Views Righton XR Elbow [...] Comments Radiation Dose: Ka,r in mGy = 1.66 DAP = na Normal [facility] Consent for Treatmenton 10-02 Consent for Treatment [id number]#1.00TIF F Normal [facility] Discharge Instructionson Discharge Instructions YOUSIF AGUILAR :1945 [...] care physician. This Is Your Medications List acetaminophen-hydrocodon e ([place] 325 mg-5 mg oral tablet) atorvastatin (atorvastatin [...] Appointment has already been scheduled Where: [address] [place] [address]- Business (1) Medications What How Much When Instructions Next Dose Unchanged acetaminophen-hydrocodon e ([place] 325 mg-5 mg oral tablet) See instructions 1 - 2 po q4-6h prn pain Dx: S52.031D Duration: 7 days Pickup at [facility]/pharmacy #6173 Unchanged atorvastatin (atorvastatin 20 mg Tab) 1 Tablets By Mouth Once a day (at bedtime) Unchanged docusate (Colace 100 mg Cap) 1 Capsules By Mouth 2 times a day as needed for for constipation Pickup at [facility]/pharmacy #6173 Unchanged hydrochlorothiazide (hydrochlorothiazide 25 mg oral tablet) 1 Tablets By Mouth Every day Unchanged rivaroxaban (Xarelto 2.5 mg oral tablet) 2 Tablets By Mouth Every day Pharmacy Information [facility]/pharmacy #6173: [address], [place] [id number] [phone] Test Results No qualifying data available. Allergies [...] WIRE 10/28/2023 K-WIRE (2), 10/28/2023 Education Materials [place], [place] [facility] OUTPATIENT SURGERY Home Care [...] pain a (more content not included)... Normal [facility] Comment on above: Result Comment: Elec tronically Signed By: Flavio PHELPS, Marilou Aguero\.br\Date and Time Signed: 10/28/23 16:53 EST H&P Updateon 10-28-2023 H&P Update [id number]#1.00T IFF Normal [facility] Main OR PACU I Recordon 10-02 Main OR PACU I Record PACU Phase I Docum ent Type FT Summary Primary Physician: Theresa Villalpando DO Finalized Date/Time: 10/28/23 16:14:58 Pt. Name: YOUSIF AGUILAR D.O.B./Sex: 1945 Male Med Rec #: [id number] Physician: Theresa Villalpando DO Financial #: [id number] Pt. Type: A Room/Bed: [facility] Admit/Disch: 10/28/23 10:36:00 - Institution: Case Times [...] I Outcomes Met? Yes Last Modified By: Elizabeth Rowe RN 10/28/23 16:14:50 Post-Care Text: The patient demonstrates [...] By: Elizabeth Rowe RN 10/28/23 16:14 Normal [facility] Main OR Preoperative Recordo n 10-28-2023 Main OR Preoperative Record PreOp Document Type FT Summary Primary Physician: Theresa Villalpando DO Finalized Date/Time: 10/28/23 14:12:47 Pt. Name: YOUSIF AGUILAR/Sex: 1945 Male Med Rec #: [id number] Physician: Theresa Villalpando DO Financial #: [id number] Pt. Type: A Room/Bed: [facility] Admit/Disch: 10/28/23 10:36:00 - Institution: Case Times [...] Signed By: Idris Brooks 10/28/23 14:12 Normal [facility] Monitor Recordon 10-28-2023 Monitor Record [id number]#1.00TI FF Normal [facility] Patient Education - Texton 1 12-28-2022 Patient Education - Text [place], [place] [facility] OUTPATIENT SURGERY Home Care [...] to that time. Driving: Do not drive. ___ Theresa Villalpando DO [facility] [address] [place] [address] Reviewed: 03-08 [facility] Progress Note-Physicianon Progress Note-Physician Patient: YOUSIF AGUILAR Age: 77 years Sex: Male : 1945 Associated Diagnoses: None Author: Theresa Villalpando DO Postoperative Information Procedure: R Olecranon ORIF Preoperative Diagnosis: R olecranon fx. Postoperative Diagnosis: same. Performed by: camila. Narrow Fabric Calenderer: Wallace. Specimens Removed: none. Prosthesis: tension band. . Estimated Blood Loss: 0 ml. Complications: None. Anesthesia type: General. [facility] Comment on above: Result Comment: Elec tronically Signed By: Theresa Villalpando DO\Date and Time Signed: 10/28/23 15:37 EST CHEMISTRYOrdered By: SYSTEM SYSTEM on 10-27-2023 Potassium [Moles/Vol] 3.6 mmol/L Normal 3.5 - 5.3 mmol/L [facility] Remisol Consent for Procedure/Surger yon 10-27-2023 Consent for Procedure/Surgery [id number]#1.00TI FF [facility] Consent for Treatmenton 10-02 Consent for Treatment [id number]#1.00TIF F [facility] Physician Orderon 10-27-2023 Physician Order [id number]#1.00TIFF [facility] Potassiumon 10-27-2023 Potassium [Moles/Vol] 3.6 mmol/L Normal 3.5-5.3 [facility] Comment on above: Performed By: #### 2 020899 ####[facility] [address] [place] [address] XR Chest 2 Viewson 3 XR Chest [...] nor pleural effusion is evident. Ordering Provider: Lakhani Ahmad FINAL REPORT Dictated: 10/24/2023 8:53 am Steve Dill M.D. Signed (Electronic Signature): 10/24/2023 8:53 am Signed by: Steve Dill M.D. Transcribed by: SARAH Technologist: SARAHR Technical Comments Radiation Dose: Ka,r in mGy = na DAP = na Normal [facility] Auto Diffon 10-22-2023 Basophils/100 WBC (Bld) 0.3 % Normal 0.0-2.0 [facility] Comment on above: Order Comment: Order Added by Discern Expert. Performed By: #### 2 583502, 8115557, 4039964, 92258976 ####[address] [address] Basophils/Leukocytes Auto (Bld) [Pure # fraction] 0.0 E9/L Normal 0.0-0.2 [facility] Comment on above: Order Comment: Order Added by Hilda Expert. Performed By: #### 2 823601, 6035967, 3582281, 64702630 ####[address] [address] Eosinophils/100 WBC (Bld) 3.6 % Normal 0.0-8.0 [facility] Comment on above: Order Comment: Order Added by Discern Expert. Performed By: #### 2 177522, 7014479, 2771494, 81713834 ####[address] [address] Eosinophils/Leukocytes Auto (Bld) [Pure # fraction] 0.3 E9/L Normal 0.0-0.5 [facility] Comment on above: Order Comment: Order Added by Hilda Expert. Performed By: #### 2 349938, 7121147, 7660845, 76559837 ####[address] [address] Lymphocytes/100 WBC (Bld) 15.5 % Normal 14.0-50.0 [facility] Comment on above: Order Comment: Order Added by Hilda Expert. Performed By: #### 2 168760, 7536968, 3277734, 81885647 ####[address] [address] Lymphocytes/Leukocytes Auto (Bld) [Pure # fraction] 1.1 E9/L Normal 1.0-4.0 [facility] Comment on above: Order Comment: Order Added by Discern Expert. Performed By: #### 2 224027, 4609750, 2608842, 64861070 ####[place] [address] [place] [address] Monocytes/100 WBC (Bld) 9.5 % Normal 4.0-14.0 [facility] Comment on above: Order Comment: Order Added by Hilda Expert. Performed By: #### 2 134548, 8879988, 6124026, 42277660 ####[place] [address] [place] [address] Monocytes/Leukocytes Auto (Bld) [Pure # fraction] 0.7 E9/L Normal 0.2-1.0 [facility] Comment on above: Order Comment: Order Added by Hilda Expert. Performed By: #### 2 574964, 6412059, 2987119, 13877803 ####[place] [address] [place] [address] Neutrophils/100 WBC (Bld) 71.1 % Normal 36.0-75.0 [facility] Comment on above: Order Comment: Order Added by Hilda Expert. Performed By: #### 2 971191, 0875950, 1813205, 74543865 ####[place] [address] [place] [address] Neutrophils/Leukocytes Auto (Bld) [Pure # fraction] 5.2 E9/L Normal 2.0-7.5 [facility] Comment on above: Order Comment: Order Added by Hilda Expert. Performed By: #### 2 523878, 7289117, 5465095, 83165249 ####[facility] [address] [place] [address] BMPon 10-22-2023 Anion gap [Moles/Vol] 13 mmol/L Normal 6-16 [facility] Comment on above: Performed By: #### 2 208370, 3621547, 0515103, 66335241 ####[place] [address] [place] [address] Calcium [Mass/Vol] 8.4 mg/dL Low 8.9-11.1 [facility] Comment on above: Performed By: #### 2 142293, 7041441, 8204781, 96791713 ####[facility] [address] [place] [address] Chloride [Moles/Vol] 97 mmol/L Low 101-111 [facility] Comment on above: Performed By: #### 2 660848, 7237664, 7828150, 54473539 ####[facility] [address] [place] [address] CO2 [Moles/Vol] 31 mmol/L Normal 21-31 [facility] Comment on above: Performed By: #### 2 771100, 8468513, 2160956, 87056995 ####[facility] [address] [place] [address] Creatinine [Mass/Vol] 0.9 mg/dL Normal 0.5-1.3 [facility] Comment on above: Performed By: #### 2 050766, 4681995, 4580197, 88652766 ####[facility] [address] [place] [address] Glucose [Mass/Vol] 105 mg/dL Normal 55-199 [facility] Comment on above: Result Comment: If t his glucose result represents a fasting glucose, interpretation should refer to the following reference range: 55-99 mg/dL Performed By: #### 2 346052, 7182002, 2266087, 90919953 ####[facility] [address] [place] [address] Potassium [Moles/Vol] 2.8 mmol/L Abnormal 3.5-5.3 [facility] Comment on above: Result Comment: Crit ical Result verified by repeat analysis\Critical Result S_K:2.8 Called to [facility] by MITALI DUBON And Read Back For Confirmation at: 10/22/2023 13:36:24 Performed By: #### 2 936375, 2935671, 1479921, 36029400 ####[facility] [address] [place] [address] Sodium [Moles/Vol] 138 mmol/L Normal 135-145 [facility] Comment on above: Performed By: #### 2 950605, 9039703, 5619186, 75979731 ####[facility] [address] [place] [address] Urea nitrogen [Mass/Vol] 17 mg/dL Normal 5-21 [facility] Comment on above: Performed By: #### 2 746967, 9069254, 2727268, 61150720 ####[facility] [address] [place] [address] Urea nitrogen/Creatinine [Mass ratio] 19 No Units Normal 10-20 [facility] Comment on above: Performed By: #### 2 903039, 8615023, 9524804, 14322098 ####[facility] [address] [place] [address] CBC w/ Auto Diffon Erythrocyte distribution width (RBC) [Ratio] 14.1 % Normal 10.9-14.2 [facility] Comment on above: Performed By: #### 2 860185, 9557513, 7839881, 54909468 ####[facility] [address] [place] [address] Hematocrit (Bld) [Volume fraction] 32.6 % Low 37.7-49.0 [facility] Comment on above: Performed By: #### 2 052847, 5828155, 2170554, 12588890 ####[facility] [address] [place] [address] Hemoglobin (Bld) [Mass/Vol] 10.9 g/dL Low 13.5-17.5 [facility] Comment on above: Performed By: #### 2 569535, 0278660, 2496617, 29360077 ####[facility] [address] [place] [address] MCH (RBC) [Entitic mass] 28.9 pg Normal 27.0-34.0 [facility] Comment on above: Performed By: #### 2 284401, 9007464, 8132066, 57039807 ####[place] [address] MCHC (RBC) [Mass/Vol] 33.5 g/dL Normal 31.4-36.0 [facility] Comment on above: Performed By: #### 2 461954, 8898018, 7080824, 24746650 ####[place] [address] MCV (RBC) [Entitic vol] 86.3 fL Normal 80.0-100.0 [facility] Comment on above: Performed By: #### 2 714436, 8230139, 5917474, 40471488 ####[address] [address] Platelet mean volume (Bld) [Entitic vol] 8.8 fL Normal 6.4-10.8 [facility] Comment on above: Performed By: #### 2 586399, 5635090, 6284621, 33898600 ####[address] [address] Platelets (Bld) [#/Vol] 245.0 E9/L Normal 150.0-500.0 [facility] Comment on above: Performed By: #### 2 806315, 7886304, 0726444, 41252093 ####[address] [address] RBC (Bld) [#/Vol] 3.8 E12/L Low 4.3-5.9 [facility] Comment on above: Performed By: #### 2 197425, 4116671, 4418800, 27198373 ####[address] [address] WBC corrected for nucl RBC Auto (Bld) [#/Vol] 7.4 E9/L Normal 4.0-11.0 [facility] Comment on above: Performed By: #### 2 885940, 8013679, 8715673, 41534900 ####[facility] [address] [place] [address] CHEMISTRYOrdered By: SYSTEM SYSTEM on 10-22-2023 Anion [...] 89 mL/min/1.73 m2 Normal >=59mL/min/ 1.73 m2 [facility] Chem S Comment on above: Interpretive Data: C hronic kidney disease could be indicated at eGFR's of less than 60 mL/min/1.73m2. Kidney failure is indicated at less than 15 mL/min/1.73m2. Glucose [Mass/Vol] 105 mg/dL Normal 55 - 199 mg/dL [facility] Remisol Comment on above: Interpretive Data: I [...] Consent for Treatmenton 10-02 Consent for Treatment [id number]#1.00TIF F Normal [facility] HEMATOLOGYOrdered By: SYSTEM SYSTEM on 10-22-2023 Basophils/100 WBC (Bld) 0.3 % Normal 0.0 - 2.0 % [facility] HemeAutoSS Basophils/Leukocytes Auto (Bld) [Pure # fraction] 0.0 E9/L Normal 0.0 - 0.2 E9/L [facility] HemeAutoSS Eosinophils/100 WBC (Bld) 3.6 % Normal 0.0 - 8.0 % [facility] HemeAutoSS Eosinophils/Leukocytes Auto (Bld) [Pure # fraction] 0.3 E9/L Normal 0.0 - 0.5 E9/L [facility] HemeAutoSS Lymphocytes/100 WBC (Bld) 15.5 % Normal 14.0 - 50.0 % [facility] HemeAutoSS Lymphocytes/Leukocytes Auto (Bld) [Pure # fraction] 1.1 E9/L Normal 1.0 - 4.0 E9/L [facility] HemeAutoSS Monocytes/100 WBC (Bld) 9.5 % Normal 4.0 - 14.0 % [facility] HemeAutoSS Monocytes/Leukocytes Auto (Bld) [Pure # fraction] 0.7 E9/L Normal 0.2 - 1.0 E9/L [facility] HemeAutoSS Neutrophils/100 WBC (Bld) 71.1 % Normal 36.0 - 75.0 % [facility] HemeAutoSS Neutrophils/Leukocytes Auto (Bld) [Pure # fraction] 5.2 E9/L [...] 28.9 pg Normal 27.0 - 34.0 pg [facility] HemeAutoSS MCHC (RBC) [Mass/Vol] 33.5 g/dL Normal 31.4 - 36.0 gm/dL [facility] HemeAutoSS MCV (RBC) [Entitic vol] 86.3 fL Normal 80.0 - 100.0 fL [facility] HemeAutoSS Platelet mean volume (Bld) [Entitic vol] 8.8 fL Normal 6.4 - 10.8 fL [facility] HemeAutoSS Platelets (Bld) [#/Vol] 245.0 E9/L Normal 150.0 - 500.0 E9/L [facility]eAutoSS RBC (Bld) [#/Vol] 3.8 E12/L Low 4.3 - 5.9 E12/L [facility] HemeAutoSS WBC corrected for nucl RBC Auto (Bld) [#/Vol] 7.4 E9/L Normal 4.0 - 11.0 E9/L [facility] HemeAutoSS eGFRon 10-22-2023 GFR/1.73 sq M.predicted among non-blacks MDRD (S/P/Bld) [Vol rate/Area] 89 mL/min/1.73 m2 Normal >=59 [facility] Comment on above: Order Comment: Order added by Discern Expert. Result Comment: Peeler Operator mercy kidney disease could be indicated at eGFR's of less than 60 mL/min/1.73m2. Kidney failure is indicated at less than 15 mL/min/1.73m2. Performed By: #### 2 765829, 6340207, 1157538, 12832909 ####[facility] [address] [place] [address] Consent for Treatmenton 10-01 Consent for Treatment [id number]#1.00TIF F Normal [facility] Discharge Instructionson Discharge Instructions [id number]#1.00TIF F Normal [facility] ED Clinical Summaryon 2022 ED Clinical Summary (Inserted Image. Clarissa ble to display) [address] [address] ED Clinical Summary Person Information Name: YOUSIF AGUILAR [place] Age: 77 Years : 1945 Sex: Male Language: Bruneian PCP: Abbie Borges III, DO Marital Status: Visit Id: Visit [...] 10/17/2023 23:43:34 10/17/2023 23:43:34 10/17/2023 23:43:34 ADDRESS: [address] [place] [phone] PHYS DOC NOTES: MEDICAL INFORMATION: Prescriptions Given: New Medications [facility], [address] [facility] [place], [place] [id number], [phone] acetaminophen-hydrocodon e ([place] 325 mg-5 mg oral tablet) 1 Tablets [...] up: With: Address: When: Theresa Villalpando [address] [place] [address] Business (1) In 3 days 10/20/2023 Comments: You can use the pain medication every 6 hours as needed for pain. Please follow-up with your primary care doctor addition to orthopedics for further evaluation management. Please return to the ED for any new or worsening symptoms. With: Address: When: Abbie Borges [address] [facility] [place] [address] Business (1) In 3 days DIAGNOSIS: Olecranon fracture Normal [facility] ED Note-Physicianon 10-18-20 ED Note-Physician Basic Information Time Seen: Bryce Funk DO 10/17/2023 21:16 Chief Complaint Pt arrives via [facility] for a fall. Pt states he was [...] and Complexity of Problems Differential Diagnosis: [] [facility] Data External documents reviewed: [] My [...] ulna, initial encounter for closed fracture) Orders: acetaminophen-hydrocodon e, 1 tab(s), Oral, q6hr for pain for 3 day(s), 10 tab(s), Refill(s) 0, [facility], 177.8, cm, 10/17/23 21:21:00 EST, Height/Length Dosing, 133.1, kg, 10/17/23 21:21:00 EST, Weight Dosing Sling Apply XR Elbow 3+ Views Right Disposition Plan Discharge Prescription List Prescriptions [place] 325 mg-5 mg oral tablet, 1 tab(s), Oral, q6hr, PRN Follow-up With When Contact Information Theresa Villalpando In 3 days 10/20/2023 EST [address] [place], [place] [address]CadenceMD Business (1) Additional Instructions: You can use the pain medication every 6 hours as needed for pain. Please follow-up with your primary care doctor addition to orthopedics for further evaluation management. Please return to the ED for any new or worsening symptoms. Abbie Borges In [address] [facility] [place] [address]- Business (1) Additional Instructions: Patient [...] ex (more content not included)... Normal [facility] Comment on above: Result Comment: Elec tronically Signed By: Bryce Funk DO.love\Date and Time Signed: 10/17/23 23:18 EST ED [...] these instructions at home: Medicines ? Take ezfa-wbh-xojtgas and prescription medicines only as told by your health care provider. ? Ask your health care provider if the medicine prescribed to you: ? Requires you to avoid driving or using heavy machinery. ? Can cause constipation. You may need to take actions to prevent or treat constipation, such as: ? Drink enough fluid to keep your urine pale yellow. ? Take lier-uvs-jidjjyy or prescription medicines. ? Eat foods that [...] is import (more content not included)... Normal [facility] ED Patient Summaryon 023 ED Patient Summary (Inserted Image. Clarissa ble to display) [address] [address] Patient Discharge Instructions Person Information Name: YOUSIF AGUILAR Age: 77 Years Arrival Date: 10/17/2023 21:13:58 Discharge Diagnosis: Olecranon fracture Primary Care Physician: Abbie Borges III, DO Provider Information Primary Provider: Bryce Funk DO Advanced Vocational Nursing Instructor:None The exam and treatment you received in the Emergency Department were for an urgent problem and are not intended as complete care. It is important that you follow up with a doctor, nurse practitioner, or physician?s benefits assistant for ongoing care. If your symptoms become worse or you do not improve as expected and you are unable to reach your usual health care provider, you should return to the Emergency Department. We are available 24 hours a day. DANIAYOUSIF Jimbo has been given the following list of patient education materials, prescriptions and follow-up instructions: Follow-up Instructions: With: Address: When: Theresa Villal[address] [place] [address] Business (1) In 3 days 10/20/2023 Comments: You can use the pain medication every 6 hours as needed for pain. Please follow-up with your primary care doctor addition to orthopedics for further evaluation management. Please return to the ED for any new or worsening symptoms. With: Address: When: Abbie Borges [address] [facility], [place] [address] Business (1) In 3 days In the event that this physician does not participate in your insurance network, please consult with your insurance company to find a nearby participating provider. Patient Education Materials: William Fracture A MESSAGE TO ALL PATIENTS REGARDING OPIOIDS PRESCRIPTION OPIOIDS: WHAT YOU NEED TO KNOW Prescription opioids can be used to help relieve johtleee-xl-xjxmpu pain and are often prescribed following a [...] following g (more content not included)... Normal [facility] ED Traumaon 10-18-2023 ED Trauma [id number] 6180 [id number]#1.00TIF F Normal [facility] XR Elbow 3+ Views Righton XR Elbow [...] in mGy = na DAP = na [facility] Pre-Arrival Noteon 3 Pre-Arrival Note Pre-Arrival Summary Name: , maritza Current Date: 10/17/2023 21:14:37 EST Gender: Male Date of : Age: 77 Pre-Arrival Type: EMS ETA: 10/17/2023 21:06:00 EST Primary Care Physician: Presenting Problem: T2-fall, elbow pain Pre-Arrival User: Nicholas Rosario RN Referring Source: Location: [place] Completion Date/Time: 10/17/2023 21:06:00 [facility] Emergency Department Pre-Hospital Report Form Vital Signs: Pre-Hospital Report: slipped on kitchen floor falling to R elbow, swelling noted. denies hitting head or LOC. on xarelto. no other pain/complaints Treatment in Route: none Response to Treatment: Misc. Issues: Normal [facility] Nursing Note - Woundon 08-12 Nursing Note - Wound 170.71.683.064.0667 78538 [id number]#1.00CD :127 [facility] Consent for Procedure/Surger yon 08-05-2023 Consent for Procedure/Surgery [id number]#1.00CD :127 [facility] Consent for Treatmenton Consent for Treatment 159.140.128.36.202 660891 [id number]#1.00CD: 127 [facility] Physician Orderon 08-05-2023 Physician Order [id number] 9020 [id number]#1.00CD :127 [facility] Nursing Note - Woundon 07-31 Nursing Note - Wound 170.71.273.643.5628 70805 [id number]#1.00CD :127 [facility] Physician Orderon 07-31-2023 Physician Order [id number] 8043 [id number]#1.00CD :127 [facility] Consent for Treatmenton 07-02 Consent for Treatment 159.140.128.34.202 769042 [id number]#1.00CD: 127 [facility] Multi-Wound Charton 07-29-20 Multi-Wound Chart 170.71.121.117.67827 8022 [id number]#1.00CD :127 [facility] Nursing Assessment - Woundon 07-29-2023 Nursing Assessment - Wound 170.71.121.117.524913538 [id number]#1.00CD :127 [facility] Procedure - Woundon 07-29-20 Procedure - Wound 170.71.121.117.50346 8022 [id number]#1.00CD :127 [facility] Consent for Treatmenton 07-02 Consent for Treatment 159.140.128.36.202 625890 [id number]#1.00CD: 127 [facility] Multi-Wound Charton 07-22-20 Multi-Wound Chart 170.71.121.117.41186 8022 [id number]#1.00CD :127 [facility] Nursing Assessment - Woundon 07-22-2023 Nursing Assessment - Wound 170.71.121.117.666527842 [id number]#1.00CD :127 [facility] Nursing Note - Woundon 07-22 Nursing Note - Wound 170.71.804.649.5854 87787 [id number]#1.00CD :127 [facility] Physician Orderon 07-22-2023 Physician Order [id number] 8022 [id number]#1.00CD :127 [facility] Procedure - Woundon 07-22-20 Procedure - Wound 170.71.121.117.57265 8022 [id number]#1.00CD :127 [facility] Progress Note - Woundon 07-02 Progress Note - Wound 170.71.121.117.202 960700 [id number]#1.00CD :127 [facility] Consent for Treatmenton 07-01 Consent for Treatment 149.45.122.5. 326620 [id number]#1.00CD:1 [facility] Physician Orderon 07-15-2023 Physician Order [id number] 8021 [id number]#1.00CD :127 [facility] Multi-Wound Charton 07-14-20 Multi-Wound Chart 170.71.121.117.65853 8011 [id number]#1.00CD :127 [facility] Nursing Assessment - Woundon 07-14-2023 Nursing Assessment - Wound 170.71.121.117.730448385 [id number]#1.00CD :127 [facility] Nursing Note - Woundon 07-14 Nursing Note - Wound 170.71.991.000.2393 34557 [id number]#1.00CD :127 [facility] Consent for Procedure/Surger yon 07-08-2023 Consent for Procedure/Surgery 149.45.122.15.8587101738 [id number]#1.00CD :127 [facility] Consent for Procedure/Surgery 149.45.122.15.5922050320 [id number]#1.00CD :127 [facility] Consent for Treatmenton Consent for Treatment 159.140.128.34.202 013107 [id number]#1.00CD: 127 [facility] Multi-Wound Charton 07-08-20 Multi-Wound Chart 170.71.121.117.28800 8020 [id number]#1.00CD :127 [facility] Nursing Assessment - Woundon 07-08-2023 Nursing Assessment - Wound 170.71.121.117.302363204 [id number]#1.00CD :127 [facility] Nursing Note - Woundon 07-08 Nursing Note - Wound 170.71.950.542.8099 32382 [id number]#1.00CD :127 [facility] Physician Orderon 07-08-2023 Physician Order [id number] 8020 [id number]#1.00CD :127 [facility] Procedure - Woundon 07-08-20 Procedure - Wound 170.71.121.117.50374 8020 [id number]#1.00CD :127 [facility] Progress Note - Woundon Progress Note - Wound 170.71.121.117.202 561373 [id number]#1.00CD :127 [facility] Multi-Wound Charton 07-01-20 Multi-Wound Chart 170.71.121.117.58699 8020 [id number]#1.00CD :127 [facility] Nursing Note - Woundon 07-01 Nursing Note - Wound 170.71.885.509.7186 96564 [id number]#1.00CD :127 [facility] Consent for Treatmenton 06-02 Consent for Treatment 159.140.128.36.202 076972 [id number]#1.00CD: 127 [facility] Insurance Correspondenceon 0 06-30-2023 Insurance Correspondence [id number]#1.00CD :127 [facility] Physician Orderon 06-30-2023 Physician Order [id number] 7013 [id number]#1.00CD :127 [facility] Procedure - Woundon 06-30-20 Procedure - Wound 170.71.121.117.05665 7013 [id number]#1.00CD :127 [facility] Consent for Treatmenton 06-01 Consent for Treatment 159.140.128.36.202 608447 [id number]#1.00CD: 127 [facility] Multi-Wound Charton 06-24-20 Multi-Wound Chart 170.71.121.117.87307 7022 [id number]#1.00CD :127 [facility] Nursing Assessment - Woundon 06-24-2023 Nursing Assessment - Wound 170.71.121.117.506478223 [id number]#1.00CD :127 [facility] Nursing Note - Woundon 06-24 Nursing Note - Wound 170.71.354.708.0186 40905 [id number]#1.00CD :127 [facility] Physician Orderon 06-24-2023 Physician Order [id number] 7022 [id number]#1.00CD :127 [facility] Procedure - Woundon 06-24-20 Procedure - Wound 170.71.121.117.13011 7022 [id number]#1.00CD :127 [facility] Progress Note - Woundon 06-01 Progress Note - Wound 170.71.121.117.202 130126 [id number]#1.00CD :127 [facility] Consent for Treatmenton 05-31 Consent for Treatment 159.140.128.36.202 579870 [id number]#1.00CD: 127 [facility] Multi-Wound Charton 06-17-20 Multi-Wound Chart 170.71.121.117.87306 7021 [id number]#1.00CD :127 [facility] Nursing Assessment - Woundon 06-17-2023 Nursing Assessment - Wound 170.71.121.117.487638159 [id number]#1.00CD :127 [facility] Nursing Note - Woundon 06-17 Nursing Note - Wound 170.71.075.172.9259 68982 [id number]#1.00CD :127 [facility] Physician Orderon 06-17-2023 Physician Order [id number] 7021 [id number]#1.00CD :127 [facility] Procedure - Woundon 06-17-20 Procedure - Wound 170.71.121.117.37195 7021 [id number]#1.00CD :127 [facility] Progress Note - Woundon 05-31 Progress Note - Wound 170.71.121.117.202 997171 [id number]#1.00CD :127 [facility] Consent for Procedure/Surger yon 06-11-2023 Consent for Procedure/Surgery 170.71.121.95.6520222377 [id number]#1.00CD :127 [facility] Correspondence - Woundon Correspondence - Wound 170.71.121.95.901 0907003 [id number]#1.00CD :127 [facility] Nursing Note - Woundon 06-11 Nursing Note - Wound 170.71.363.973.6318 23223 [id number]#1.00CD :127 [facility] Physician Orderon 06-11-2023 Physician Order [id number] 7031 [id number]#1.00CD :127 [facility] Procedure - Woundon 06-11-20 Procedure - Wound 170.71.121.117.90681 7031 [id number]#1.00CD :127 [facility] Progress Note - Woundon 05-31 Progress Note - Wound 170.71.121.117.202 294525 [id number]#1.00CD :127 [facility] Consent for Treatmenton 05-31 Consent for Treatment 159.140.128.34.202 169954 [id number]#1.00CD: 127 [facility] Multi-Wound Charton 06-10-20 Multi-Wound Chart 170.71.121.117.10129 7021 [id number]#1.00CD :127 [facility] Nursing Assessment - Woundon 06-10-2023 Nursing Assessment - Wound 170.71.121.117.816244743 [id number]#1.00CD :127 [facility] Nursing Note - Woundon 06-09 Nursing Note - Wound 170.71.956.054.3336 42400 [id number]#1.00CD :127 [facility] Physician Orderon 06-09-2023 Physician Order [id number] 7011 [id number]#1.00CD :127 [facility] Procedure - Woundon 06-09-20 Procedure - Wound 170.71.121.117.47354 7011 [id number]#1.00CD :127 [facility] Progress Note - Woundon 05-31 Progress Note - Wound 170.71.121.117.202 099068 [id number]#1.00CD :127 [facility] Physician Orderon 06-06-2023 Physician Order [id number] 7050 [id number]#1.00CD :127 [facility] Procedure - Woundon 06-06-20 Procedure - Wound 170.71.121.117.59105 7050 [id number]#1.00CD :127 [facility] Multi-Wound Charton 06-05-20 Multi-Wound Chart 170.71.121.117.74492 7040 [id number]#1.00CD :127 [facility] Nursing Note - Woundon 06-05 Nursing Note - Wound 170.71.463.402.2379 47736 [id number]#1.00CD :127 [facility] Procedure - Woundon 05-28-20 Procedure - Wound 170.71.121.117.24846 6032 [id number]#1.00CD: 127 [facility] Consent for Treatmenton 05-02 Consent for Treatment 159.140.128.36.202 380254 [id number]#1.00CD: 127 [facility] Multi-Wound Charton 05-27-20 Multi-Wound Chart 170.71.121.117.30558 6022 [id number]#1.00CD :127 [facility] Nursing Note - Woundon 05-27 Nursing Note - Wound 170.71.807.047.6219 91141 [id number]#1.00CD :127 [facility] Physician Orderon 05-27-2023 Physician Order 170.71.121.117.99834 6022 [id number]#1.00CD :127 [facility] Multi-Wound Charton 05-21-20 Multi-Wound Chart 170.71.121.117.24745 6032 [id number]#1.00CD :127 [facility] Nursing Note - Woundon 05-21 Nursing Note - Wound 170.71.451.245.2741 68042 [id number]#1.00CD :127 [facility] Physician Orderon 05-21-2023 Physician Order 170.71.121.117.93665 6032 [id number]#1.00CD :127 [facility] Prescriptions/Work Noteson 0 05-21-2023 Prescriptions/Work Notes 149.45.122.14.5794068072 [id number]#1.00CD :127 [facility] Procedure - Woundon 05-21-20 Procedure - Wound 170.71.121.117.50801 6032 [id number]#1.00CD :127 [facility] Consent for Treatmenton 05-02 Consent for Treatment 159.140.128.36.202 909436 [id number]#1.00CD: 127 [facility] Multi-Wound Charton 05-20-20 Multi-Wound Chart 170.71.121.117.99117 6022 [id number]#1.00CD :127 [facility] Nursing Assessment - Woundon 05-20-2023 Nursing Assessment - Wound 170.71.121.117.815607990 [id number]#1.00CD :127 [facility] Consent for Treatmenton 05-01 Consent for Treatment 159.140.128.34.202 928830 [id number]#1.00CD: 127 [facility] Consent for Procedure/Surger yon 05-06-2023 Consent for Procedure/Surgery 170.71.121.81.2983543391 [id number]#1.00CD :127 [facility] Consent for Treatmenton Consent for Treatment 159.140.128.34.202 040881 [id number]#1.00CD: 127 [facility] Multi-Wound Charton 05-06-20 Multi-Wound Chart 170.71.121.117.50718 6020 [id number]#1.00CD :127 [facility] Nursing Assessment - Woundon 05-06-2023 Nursing Assessment - Wound 170.71.121.117.527427227 [id number]#1.00CD :127 [facility] Nursing Note - Woundon 05-06 Nursing Note - Wound 170.71.746.707.1535 85607 [id number]#1.00CD :127 [facility] Physician Orderon 05-06-2023 Physician Order 170.71.121.117.75733 6030 [id number]#1.00CD :127 [facility] Procedure - Woundon 05-06-20 Procedure - Wound 170.71.121.117. 6030 [id number]#1.00CD :127 [facility] Progress Note - Woundon 06-0 Progress Note - Wound 170.71.121.117.202 376238 [id number]#1.00CD :127 [facility] Correspondence - Woundon Correspondence - Wound 170.71.121.80.553 9605267 [id number]#1.00CD: 127 [facility] Consent for Treatmenton 04-01 Consent for Treatment 159.140.128.36.202 420779 [id number]#1.00CD: 127 [facility] Multi-Wound Charton 04-22-20 Multi-Wound Chart 170.71.121.117. 5022 [id number]#1.00CD :127 [facility] Nursing Assessment - Woundon 04-22-2023 Nursing Assessment - Wound 170.71.121.117.408111892 [id number]#1.00CD :127 [facility] Nursing Note - Woundon 04-22 Nursing Note - Wound 170.71.306.647.8364 84572 [id number]#1.00CD :127 [facility] Physician Orderon 04-22-2023 Physician Order [id number] 5022 [id number]#1.00CD :127 [facility] Procedure - Woundon 04-22-20 Procedure - Wound 170.71.121.117. 5022 [id number]#1.00CD :127 [facility] Progress Note - Woundon 04-01 Progress Note - Wound 170.71.121.117.202 768662 [id number]#1.00CD :127 [facility] Progress Noteson 07-20-2022 Lead Technician Authentication Interface Message Text EMERGENCY TRIAGE, TREAT AND TRANSPORT (ET3) DOCUMENTATION OF TELEHEALTH VISIT Date / Time: 07/18/2022 / 1430 Name: Yousif Aguilar : 1945 SSN: [id number] EMS Agency: [facility] [] Verbal consent obtained [] Implied [...] Completed by: Wilfrid Haley MD Normal [employer] (roll[employer]to) System Coding Summary.on 02-19-2019 Coding Summary. 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 Z86.718 Personal history [...] Oconnell Date Saved: 02/19/2019 01:52 pm Normal [facility] CNOVon 09-03-2017 CNOV Office Visit (VASSFT) Tima AGUILAR ([id number]) 1945 MDate Time Provider Aibqxxnpje34/4/17 10:00 AM NEO ROBERTO During your visit today, we recorded the following information about you: Pulse Blood pressure Weight 73/minute 142/72 142.9 kgNeo Roberto MD 09/03/2017 10:08 AM [facility] Department of Cardiovascular MedicineOUTPATIENT VISIT DATE September 03, 2017OUTPATIENT VISIT TYPEESTABLISHEDPRFORMERLY [facility] PHYSICIAN:Abbie Borges III DO[address] [place] [address]Qwzpl: [phone]: [phone] PHYSICIANAbbie Borges III, DO257 [address] 1[facility] [id number] COMPLAINT:No chief complaint on file.HISTORY OF PRESENT [...] PE and DVT, 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 CT Chest +[id number] DUS LE +Rt femoral and popliteal [id number] DUS LE +Lt popliteal DVTPAST MEDICAL HISTORYDiagnosis Date- Anemia- DVT (deep venous thrombosis) (HCC)- Hyperlipidemia- Lymphedema- Pulmonary embolism (HCC)- TIA (transient ischemic attack)PAST SURGICAL HISTORYProcedure Laterality Date- APPENDECTOMY- REPAIR LOWER JAW FRACTURE- REPAIR WRIST FRACTURE BilateralSOCIAL HISTORYSocial HistorySubstance Use Topics- Smoking status: Former Smoker Packs/day: 1.00 Years: 2.00 Types: Cigarettes- Smokeless tobacco: Not on file- Alcohol use NoNo family history on file.ALLERGIES:ALLERGIES Allergen Reactions- Shellfish Containin* Anaphylaxis- Iodine Anaphylaxis- Penicillins UnknownMEDICATIONS:hydro CHLOROthiazide (HYDRODIURIL, ESIDRIX) 25 mg tablet Take 1 [...] kg (315 lb) SpO2 94% BMI 43.93 kg/s5Wlewlvv appearance: alert and cooperative individual, in no [...] EVLT.Continue with compression, skin moisturizer, leg elevation.Neo Roberto, MDReferring Provider: ABBIE BORGES III [[id number]]Allergies As of Date: 09/03/2017 Noted Allergy ReactionSHELLFISH CONTAINING PRODUCTS 03/03/2017 10 - AnaphylaxisIODINE 06/10/2016 10 - AnaphylaxisPENICILLINS 06/10/2016 16 - UnknownDate Reviewed: 09/03/2017Reviewed by: Neo Roberto - Fully AssessedPrimary Visit Diagnosis:Morbid obesity (HCC) [E66.01] Other Visit Diagnosis:Venous stasis dermatitis of both lower extremities [I87.2]Prescriptions as of 09/03/2017 Sig: HYDROCHLOROTHIAZIDE 25 MG TAB* Take 1 tablet by mouth once d* WARFARIN 5 MG TABLET Take 5 mg by mouth daily as d* ATORVASTATIN 20 MG TABLET Take 20 mg by mouth once princess*Problem List As Of Date: 09/03/2017(None)Disposit ion: Return if symptoms worsen or fail to improve.Follow-up and Disposition History RecordedEncounter Number: [id number] Status:Closed by NEO ROBERTO MD on 09/03/17 [facility] PROGRESSon 09-03-2017 PROGRESS HNO ID: [id number]: Neo RobertoService: (none)Author Type: PhysicianType: Progress NotesFiled: 09/03/2017 10:08 AMNote Text:[facility] InstituteRobnew [facility] Department of Cardiovascular MedicineOUTPATIENT VISIT DATE September 03, 2017OUTPATIENT VISIT TYPEESTABLISHEDPRIMARY CARE PHYSICIAN:Abbie Borges III, DO[address] [place] [address]Sqgdh: [phone]: [phone] PHYSICIANAbbie Borges III, DO257 [place] Amanda Salguero [facility] [id number] COMPLAINT:No chief complaint on file.HISTORY OF PRESENT [...] PE and DVT, 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 CT Chest +[id number] DUS LE +Rt femoral and popliteal [id number] DUS LE +Lt popliteal DVTPAST MEDICAL HISTORYDiagnosis Date- Anemia- DVT (deep venous thrombosis) (HCC)- Hyperlipidemia- Lymphedema- Pulmonary embolism (HCC)- TIA (transient ischemic attack)PAST SURGICAL HISTORYProcedure Laterality Date- APPENDECTOMY- REPAIR LOWER JAW FRACTURE- REPAIR WRIST FRACTURE BilateralSOCIAL HISTORYSocial HistorySubstance Use Topics- Smoking status: Former Smoker Packs/day: 1.00 Years: 2.00 Types: Cigarettes- Smokeless tobacco: Not on file- Alcohol use NoNo family history on file.ALLERGIES:ALLERGIES Allergen Reactions- Shellfish Containin* Anaphylaxis- Iodine Anaphylaxis- Penicillins UnknownMEDICATIONS:hydro CHLOROthiazide (HYDRODIURIL, ESIDRIX) 25 mg tablet Take 1 [...] kg (315 lb) SpO2 94% BMI 43.93 kg/n5Wqbtlzj appearance: alert and cooperative individual, in no [...] EVLT.Continue with compression, skin moisturizer, leg elevation.Neo Roberto MD Normal [facility] Vital Signs Date Time Vital Sign Value Performing Clinician Facility 04-22-2024 10:35-0400 Diastolic blood pressure 64 mm[Hg] DO Wonga Work Phone: [facility] 04-22-2024 10:35-0400 Heart rate 74 /min DO Abbie Borges III Work Phone: [facility] 04-22-2024 10:35-0400 Respiratory rate 16 /min DO Abbie Borges III Work Phone: [facility] 04-22-2024 10:35-0400 SaO2% (BldA) [Mass fraction] 94 % DO Abbie Borges III Work Phone: [facility] 04-22-2024 10:35-0400 Systolic blood pressure 119 mm[Hg] DO Abbie Borges III Work Phone: [facility] 04-22-2024 09:50-0400 Inhaled oxygen flow rate 6 L/min DO Abbie Borges III Work Phone: [facility] 04-22-2024 07:17-0400 Body height 167.64 cm DO Abbie Borges III Work Phone: [facility] 04-22-2024 07:17-0400 Body mass index (BMI) [Ratio] 46.2 kg/m2 DO Abbie Borges III Work Phone: [facility] 04-22-2024 07:17-0400 Body weight 130 kg DO Abbie Borges III Work Phone: [facility] 04-22-2024 06:15-0400 Body temperature 97.9 [degF] DO Abbie Borges III Work Phone: [facility] 04-20-2024 15:43-0400 Body height 177.8 cm [facility] 04-20-2024 15:43-0400 Body mass index (BMI) [Ratio] 41.8 kg/m2 [facility] [facility] 04-20-2024 15:43-0400 Body weight 132.44 kg [facility] 04-11-2024 19:00-0400 Diastolic blood pressure 66 mm[Hg] [facility] 04-11-2024 19:00-0400 Heart rate 72 /min [facility] 04-11-2024 19:00-0400 Mean blood pressure 89 mm[Hg] [facility] 04-11-2024 19:00-0400 Respiratory rate 12 /min [facility] 04-11-2024 19:00-0400 SaO2% (BldA) [Mass fraction] 97 % [facility] 04-11-2024 19:00-0400 Systolic blood pressure 135 mm[Hg] [facility] 04-11-2024 18:00-0400 Diastolic blood pressure 85 mm[Hg] [facility] 04-11-2024 18:00-0400 Heart rate 87 /min [facility] 04-11-2024 18:00-0400 Mean blood pressure 99 mm[Hg] [facility] 04-11-2024 18:00-0400 Systolic blood pressure 126 mm[Hg] [facility] 04-11-2024 17:00-0400 Diastolic blood pressure 77 mm[Hg] [facility] 04-11-2024 17:00-0400 Mean blood pressure 92 mm[Hg] [facility] 04-11-2024 17:00-0400 Respiratory rate 16 /min [facility] 04-11-2024 17:00-0400 SaO2% (BldA) [Mass fraction] 90 % [facility] 04-11-2024 17:00-0400 Systolic blood pressure 121 mm[Hg] [facility] 04-11-2024 16:40-0400 Body temperature 97.88 [degF] [facility] 04-11-2024 16:40-0400 Heart rate 83 /min [facility] 04-11-2024 16:40-0400 Respiratory rate 15 /min [facility] 04-11-2024 16:25-0400 Body temperature 97.34 [degF] [facility] 04-11-2024 16:25-0400 Heart rate 82 /min [facility] 04-11-2024 16:25-0400 Respiratory rate 18 /min [facility] 10-28-2023 17:16-0500 Heart rate 69 /min Theresa Pocos [facility] 10-28-2023 17:16-0500 SaO2% (BldA) [Mass fraction] 92 % Theresa Pocos [facility] 10-28-2023 17:16-0500 Diastolic blood pressure 77 mm[Hg] Theresa Pocos [facility] 10-28-2023 17:16-0500 Mean blood pressure 100 mm[Hg] Theresa Pocos [facility] 10-28-2023 17:16-0500 Systolic blood pressure 145 mm[Hg] Theresa Pocos [facility] 10-28-2023 17:16-0500 Respiratory rate 16 /min Theresa Pocos [facility] 10-28-2023 16:09-0500 Heart rate 59 /min Hteresa Pocos [facility] 10-28-2023 16:09-0500 SaO2% (BldA) [Mass fraction] 95 % Theresa Pocos [facility] 10-28-2023 16:09-0500 Diastolic blood pressure 82 mm[Hg] Theresa Pocos [facility] 10-28-2023 16:09-0500 Mean blood pressure 95 mm[Hg] Theresa Pocos [facility] 10-28-2023 16:09-0500 Systolic blood pressure 121 mm[Hg] Theresa Pocos [facility] 10-28-2023 16:08-0500 Respiratory rate 16 /min Theresa Pocos [facility] 10-28-2023 15:58-0500 Blood Pressure Location Theresa Pocos [facility] 10-28-2023 15:58-0500 Body temperature 96.98 [degF] Theresa Pocos [facility] 10-28-2023 15:58-0500 Diastolic blood pressure 68 mm[Hg] Theresa Pocos [facility] 10-28-2023 15:58-0500 Heart rate 64 /min Theresa Pocos [facility] 10-28-2023 15:58-0500 Mean blood pressure 88 mm[Hg] Theresa Pocos [facility] 10-28-2023 15:58-0500 Respiratory rate 18 /min Theresa Pocos [facility] 10-28-2023 15:58-0500 SaO2% (BldA) [Mass fraction] 96 % Theresa Pocos [facility] 10-28-2023 15:58-0500 Systolic blood pressure 127 mm[Hg] Theresa Pocos [facility] 10-28-2023 15:46-0500 Blood Pressure Location Theresa Pocos [facility] 10-28-2023 15:46-0500 Mean blood pressure 86 mm[Hg] Theresa Pocos [facility] 10-28-2023 15:46-0500 Respiratory rate 14 /min Theresa Pocos [facility] 10-28-2023 15:41-0500 Blood Pressure Location Theresa Pocos [facility] 10-28-2023 15:41-0500 Mean blood pressure 95 mm[Hg] Theresa Pocos [facility] 10-28-2023 15:41-0500 Respiratory rate 18 /min Theresa Pocos [facility] 10-28-2023 15:31-0500 Body temperature 96.98 [degF] Theresa Pocos [facility] 10-28-2023 11:04-0500 Heart rate 80 /min Theresa Pocos [facility] 10-28-2023 11:02-0500 Respiratory rate 20 /min Theresa Pocos [facility] 10-28-2023 11:02-0500 Body temperature 97.7 [degF] Theresa Pocos [facility] 10-28-2023 11:02-0500 Mean blood pressure 104 mm[Hg] Theresa Pocos [facility] 10-22-2023 12:34-0500 Heart rate 80 /min Theresa Pocos [facility] 10-22-2023 12:34-0500 SaO2% (BldA) [Mass fraction] 94 % Theresa Pocos [facility] 10-22-2023 12:34-0500 Diastolic blood pressure 65 mm[Hg] Theresa Pocos [facility] 10-22-2023 12:34-0500 Mean blood pressure 86 mm[Hg] Theresa Pocos [facility] 10-22-2023 12:34-0500 Systolic blood pressure 130 mm[Hg] Theresa Pocos [facility] 10-22-2023 12:34-0500 Body temperature 97.7 [degF] Theresa Pocos [facility] 10-22-2023 12:34-0500 Respiratory rate 18 /min Theresa Pocos [facility] 10-17-2023 22:14-0500 Diastolic blood pressure 94 mm[Hg] Kaylinn Dokken [facility] 10-17-2023 22:14-0500 Heart rate 82 /min Kaylinn Dokken [facility] 10-17-2023 22:14-0500 Mean blood pressure 121 mm[Hg] Kaylinn Dokken [facility] 10-17-2023 22:14-0500 Respiratory rate 18 /min Kaylinn Dokken [facility] 10-17-2023 22:14-0500 SaO2% (BldA) [Mass fraction] 96 % Kaylinn Dokken [facility] 10-17-2023 22:14-0500 Systolic blood pressure 174 mm[Hg] Kaylinn Dokken [facility] 10-17-2023 21:29-0500 Body temperature 97.7 [degF] Kaylinn Dokken [facility] 10-17-2023 21:29-0500 Diastolic blood pressure 75 mm[Hg] Kaylinn Dokken [facility] 10-17-2023 21:29-0500 Heart rate 80 /min Kaylinn Dokken [facility] 10-17-2023 21:29-0500 Respiratory rate 18 /min Kaylinn Dokken [facility] 10-17-2023 21:29-0500 SaO2% (BldA) [Mass fraction] 98 % Kaylinn Dokken [facility] 10-17-2023 21:29-0500 Systolic blood pressure 162 mm[Hg] Kaylinn Dokken [facility] 10-17-2023 21:14-0500 Body temperature 97.7 [degF] Kaylinn Dokken [facility] 10-17-2023 21:14-0500 Diastolic blood pressure 78 mm[Hg] Kaylinn Dokken [facility] 10-17-2023 21:14-0500 Heart rate 83 /min Chantelylinn Dokken [facility] 10-17-2023 21:14-0500 Respiratory rate 18 /min Chantelylinn Dokken [facility] 10-17-2023 21:14-0500 SaO2% (BldA) [Mass fraction] 99 % Kaylinn Dokken [facility] 10-17-2023 21:14-0500 Systolic blood pressure 158 mm[Hg] Kaylinn Dokken [facility] 02-17-2023 11:00-0400 Body height 177.8 cm Perlita Shadia Other [email or web address] [facility] [employer] Other 02-17-2023 11:00-0400 Body mass index (BMI) [Ratio] 38.31 kg/m2 Perlita Reno Other [employer] Other 02-17-2023 11:00-0400 Body temperature 97.8 [degF] Perlita Reno Other [employer] Other 02-17-2023 11:00-0400 Body weight 121.11 kg Perlita Reno Other [employer] Other 02-17-2023 11:00-0400 Diastolic blood pressure 787 mm[Hg] Perlita Reno Other [employer] Other 02-17-2023 11:00-0400 SaO2% (BldA) [Mass fraction] 97 % Perlita Reno Other [employer] Other 02-17-2023 11:00-0400 Systolic blood pressure 130 mm[Hg] Perlita Reno Other [employer] Other 07-18-2022 14:30-0400 Diastolic blood pressure 65 mm[Hg] [facility] 07-18-2022 14:30-0400 Heart rate 83 /min [facility] 07-18-2022 14:30-0400 Respiratory rate 18 /min [facility] 07-18-2022 14:30-0400 Systolic blood pressure 117 mm[Hg] [facility] 07-05-2022 13:39-0400 Diastolic blood pressure 67 mm[Hg] [facility] 07-05-2022 13:39-0400 Heart rate 71 /min [facility] 07-05-2022 13:39-0400 Mean blood pressure 88 mm[Hg] [facility] 07-05-2022 13:39-0400 Respiratory rate 18 /min [facility] 07-05-2022 13:39-0400 SaO2% (BldA) [Mass fraction] 99 % [facility] 07-05-2022 13:39-0400 Systolic blood pressure 130 mm[Hg] [facility] 07-05-2022 13:00-0400 Diastolic blood pressure 66 mm[Hg] [facility] 07-05-2022 13:00-0400 Heart rate 69 /min [facility] 07-05-2022 13:00-0400 Mean blood pressure 89 mm[Hg] [facility] 07-05-2022 13:00-0400 SaO2% (BldA) [Mass fraction] 97 % [facility] 07-05-2022 13:00-0400 Systolic blood pressure 135 mm[Hg] [facility] 07-05-2022 12:30-0400 Diastolic blood pressure 63 mm[Hg] [facility] 07-05-2022 12:30-0400 Heart rate 72 /min [facility] 07-05-2022 12:30-0400 Mean blood pressure 84 mm[Hg] [facility] 07-05-2022 12:30-0400 Respiratory rate 18 /min [facility] 07-05-2022 12:30-0400 SaO2% (BldA) [Mass fraction] 93 % [facility] 07-05-2022 12:30-0400 Systolic blood pressure 126 mm[Hg] [facility] 07-05-2022 12:05-0400 Heart rate 76 /min [facility] 07-05-2022 11:50-0400 Body temperature 98.24 [degF] [facility] 07-05-2022 11:50-0400 Heart rate 81 /min [facility] 03-21-2022 08:18-0400 Blood Pressure Location Mitali Carine [facility] 03-21-2022 08:18-0400 Body temperature 97.34 [degF] Mitali Hawk [facility] 03-21-2022 08:18-0400 Diastolic blood pressure 74 mm[Hg] Mitali Hawk [facility] 03-21-2022 08:18-0400 Heart rate 78 /min Mitali Hawk [facility] 03-21-2022 08:18-0400 SaO2% (BldA) [Mass fraction] 96 % Mitali Hawk [facility] 03-21-2022 08:18-0400 Systolic blood pressure 122 mm[Hg] Mitali Hawk [facility] Encounters Encounter Date Encounter Type Care Provider Facility Start: 04-22-2024 End: 04-22-2024 ambulatory Abbie R Borges III Facility:[facility] Start: 04-22-2024 End: 04-22-2024 Admission to same day surgery center DO Abbie Borges III Work Phone: [facility] [place] Start: 04-22-2024 End: 04-22-2024 ambulatory DO Abbie R Borges III Work Phone: [facility] Work Phone: Start: 04-21-2024 End: 04-21-2024 ambulatory Katie Culver Facility:[facility] Start: 04-21-2024 End: 04-21-2024 ambulatory DO Abbie R Borges III Work Phone: [facility] Work Phone: Start: 04-21-2024 End: 04-21-2024 Patient encounter procedure DO Abbie Borges III Work Phone: [facility] Work Phone: Start: 04-20-2024 End: 04-20-2024 ambulatory [facility] Work Phone: Start: 04-20-2024 End: 04-20-2024 Patient encounter procedure [facility] Work Phone: Start: 04-11-2024 End: 04-11-2024 [facility] Start: 04-11-2024 End: 04-11-2024 Emergency department patient visit [facility] Rachel Leonidas [facility] Start: 12-22-2023 End: 12-22-2023 ambulatory ADDI POCOS Not Available Start: 11-28-2023 End: 11-28-2023 ambulatory ADDI POCOS Not Available Start: 11-10-2023 End: 11-10-2023 ambulatory ADDI POCOS Not Available Start: 10-28-2023 End: 10-28-2023 ambulatory Addi Pocos Facility:[facility] Start: 10-28-2023 End: 10-28-2023 Admission to same day surgery center Addi Pocos [facility] Start: 10-27-2023 End: 10-28-2023 ambulatory Abbie Borges Facility:[facility] Start: 10-27-2023 End: 10-27-2023 Patient encounter procedure Abbie Ewingers III [facility] Start: 10-22-2023 End: 10-23-2023 ambulatory Addi Pocos Facility:[facility] Start: 10-22-2023 End: 10-22-2023 Patient encounter procedure Addi Pocos [facility] Start: 10-20-2023 End: 10-20-2023 ambulatory THERESA Montgomery POCOS Not Available Start: 10-17-2023 End: 10-18-2023 Emergency department patient visit DO Bryce Funk Facility:[facility] Start: 10-17-2023 End: 10-17-2023 Emergency department patient visit Bryce Funk [facility] Start: 08-05-2023 End: 08-06-2023 ambulatory Facundo D Dolce Facility:[facility] Start: 07-29-2023 End: 07-30-2023 ambulatory Facundo D Dolce Facility:[facility] Start: 07-29-2023 End: 07-29-2023 Patient encounter procedure Facundo Hoffman [facility] Start: 07-22-2023 End: 07-23-2023 ambulatory Facundo D Dolce Facility:[facility] Start: 07-14-2023 End: 07-15-2023 ambulatory Facundo D Dolce Facility:[facility] Start: 07-14-2023 End: 07-15-2023 Patient encounter procedure Facundo Hoffman [facility] Start: 07-08-2023 End: 07-09-2023 ambulatory Facundo D Dolce Facility:[facility] Start: 07-08-2023 End: 07-08-2023 Patient encounter procedure Facundo Tima Hayce [facility] Start: 06-30-2023 End: 07-01-2023 ambulatory Facundo D Dolce Facility:[facility] Start: 06-30-2023 End: 06-30-2023 Patient encounter procedure Facundo Tima Hayce [facility] Start: 06-24-2023 End: 06-25-2023 ambulatory Facundo D Dolce Facility:[facility] Start: 06-17-2023 End: 06-18-2023 ambulatory Facundo D Dolce Facility:[facility] Start: 06-17-2023 End: 06-17-2023 Patient encounter procedure Facundo Tima Hoffman [facility] Start: 06-10-2023 End: 06-11-2023 ambulatory Stephen Hoffman Facility:[facility] Start: 06-10-2023 End: 06-10-2023 Patient encounter procedure Stephen Hoffman [facility] Start: 06-02-2023 End: 06-03-2023 ambulatory Facundo Hoffman Facility:[facility] Start: 06-02-2023 End: 06-03-2023 Pre-admission assessment Facundo Hoffman [facility] Start: 05-27-2023 End: 05-28-2023 ambulatory Stephen Hoffman Facility:[facility] Start: 05-27-2023 End: 05-27-2023 Patient encounter procedure Stephen Hoffman [facility] Start: 05-20-2023 End: 05-21-2023 ambulatory Facundo Hoffman Facility:[facility] Start: 05-20-2023 End: 05-20-2023 Patient encounter procedure Facundo Hoffman [facility] Start: 05-15-2023 End: 05-16-2023 ambulatory Facundo Hoffman Facility:[facility] Start: 05-15-2023 End: 05-15-2023 Patient encounter procedure Facundo Hoffman [facility] Start: 05-06-2023 End: 05-07-2023 ambulatory Facundo Hoffman Facility:[facility] Start: 05-06-2023 End: 05-06-2023 Patient encounter procedure Facundo Hoffman [facility] Start: 04-23-[address] FACUNDO HOFFMAN Facility: Start: 04-22-2023 End: 04-23-2023 ambulatory Facundo Hoffman Facility:[facility] Start: 04-08-2023 End: 04-08-2023 Patient encounter procedure Facundo Hoffman [facility] Start: 04-02-2023 End: 04-02-2023 Patient encounter procedure Stephen Cross Dalton [facility] Start: 03-11-2023 End: 03-11-2023 Patient encounter procedure Facundo Hoffman [facility] Start: 03-04-2023 End: 03-04-2023 Patient encounter procedure Facundo Hoffman [facility] Start: 02-27-2023 End: 02-27-2023 ambulatory DO Abbie R Borges III Work Phone: [facility] Work Phone: Start: 02-27-2023 End: 02-27-2023 Patient encounter procedure DO Abbie Borges III Work Phone: [facility] [place] Work Phone: Start: 02-24-2023 End: 02-24-2023 Patient encounter procedure Facundo Hoffman [facility] Start: 02-18-2023 End: 02-18-2023 Patient encounter procedure Facundo Hoffman [facility] Start: 02-17-2023 End: 02-17-2023 ambulatory Perlita Reno Other [facility] [employer] Other Start: 02-17-2023 [facility] visit new patient Perlita Gadiel best [facility] Start: 02-04-2023 End: 02-04-2023 Patient encounter procedure Facundo Hoffman [facility] Start: 01-28-2023 End: 01-28-2023 Patient encounter procedure Facundo Hoffman [facility] Start: 01-21-2023 End: 01-21-2023 Patient encounter procedure Facundo Hoffman [facility] Start: 01-15-2023 End: 01-22-2023 Pre-admission assessment Facundo Hoffman [facility] Start: 01-14-2023 End: 01-14-2023 Patient encounter procedure Facundo Hoffman [facility] Start: 01-07-2023 End: 01-07-2023 Patient encounter procedure Facundo Hoffman [facility] Start: 12-31-2022 End: 12-31-2022 Patient encounter procedure Facundo Hoffman [facility] Start: 12-27-2022 End: 12-27-2022 Patient encounter procedure Facundo Hoffman [facility] Start: 12-24-2022 End: 12-24-2022 Patient encounter procedure Facundo Hoffman [facility] Start: 12-10-2022 End: 12-10-2022 Patient encounter procedure Facundo Hoffman [facility] Start: 12-03-2022 End: 12-03-2022 Patient encounter procedure Facundo Hoffman [facility] Start: 10-23-2022 End: 10-31-2022 ambulatory UNKNOWN PROVIDER Facility:[facility] Start: 07-20-2022 End: 07-22-2022 ambulatory UNKNOWN PROVIDER Facility:[facility] Start: 07-18-2022 End: 07-18-2022 ambulatory [facility] Emergen[facility] y Triage, Treat and Transport Start: 07-18-2022 End: 07-18-2022 Emergency department [facility] Comment on above: Arrived Start: 07-05-2022 End: 07-05-2022 Emergency department patient visit Shavonnenettie Ramos Leonidas [facility] Start: 03-21-2022 End: 03-21-2022 Patient encounter procedure Mitali Hawk [facility] Start: 02-23-2019 Patient encounter procedure Zakia Buck Facility:[facility] Start: 01-01-2019 End: 01-02-2019 Patient encounter procedure Stephen Hoffman Facility:[facility] Start: 09-03-2017 End: 09-04-2017 Ambulatory NEO ROBERTO [facility] Procedures Date Procedure Procedure Detail Performing Clinician Start: 04-22-2024 Arthroplasty of join t of the thumb DO Wonga Work Phone: Start: 10-28-2023 Open reduction of fr acture with internal fixation Theresa Villalpando Start: 02-27-2023 Duplex scan of lower limb veins DO Wonga Work Phone: Start: 03-04-2022 Colonoscopy [facility] Start: 03-04-2022 Colonoscopy Mitali singletary Start: 07-01-2016 EVLT RASV X [address] einmetz Comment on above: DR. ROBERTO Start: 12-01-2006 VEIN PROCEDURE MITCH 2 Be th Carine Comment on above: DR. SALVADOR DID SOME TYPE OF VEIN PROCEDURE PER PATIENT Plan of Treatment Date Care Activity Detail Author Start: 03-04-2032 [facility] Start: 04-23-2024 [facility] Start: 04-22-2024 [facility] Start: 04-22-2024 [facility] Start: 04-22-2024 X-ray of little finger XR finger LT 5th digit [facility] Start: 04-22-2024 XR Finger fifth - left Views [facility] Start: 08-31-2022 Influenza vaccination Influenza Vaccine (#[facility] Start: 01-01-2022 Annual wellness visit Annual Wellness Visit (G0438) [facility] Start: 06-07-2021 COVID-19 Vaccine (3 - Booster for Moderna series) COVID-19 Vaccine (3 - Booster for Moderna series) [facility] Start: 03-30-2021 Shingles (RZV) Vaccine (2 of 2) Shingles (RZV) Vaccine (2 of 2) [facility] Start: 03-28-2017 Pneumococcal vaccination Pneumococcal Vaccine(s) (65+ yrs) (2 - PPSV23 or PCV20) [facility] Start: 1997 Measurement of occult blood in single stool specimen FIT [facility] Start: 1982 Lipid panel Cholesterol [facility] Start: 1965 Hepatitis C screening Hepatitis C Antibody [facility] Start: 1965 Tetanus + diphtheria + acellular pertussis vaccine (product) Tdap Booster [facility] Patient Education Know your Meds [facility] Work Phone: Patient referral [facility] Work Phone: Immunizations Immunization Date Immunization Notes Care Provider Hanny macias 08-31-2021 influenza virus vaccine, unspecified formulation Mitali Hawk [facility] 02-02-2021 zoster vaccine recombinant [facility] 01-08-2021 COVID-19 mRNA-1273 (Moderna) DO Wonga Work Phone: [facility] 12-11-2020 COVID-19 mRNA-1273 (Moderna) DO Wonga Work Phone: [facility] 09-05-2020 influenza, high dose seasonal, preservative-free [facility] 09-05-2020 influenza virus vaccine, unspecified formulation [facility] 10-15-2019 influenza, high dose seasonal, preservative-free [facility] 09-10-2018 influenza, injectabl e, quadrivalent, preservative free [facility] 09-29-2017 influenza, injectabl e, quadrivalent, preservative free [facility] 09-25-2016 influenza, injectabl e, quadrivalent, preservative free [facility] 03-28-2016 pneumococcal conjuga te vaccine, 13 valent [facility] 09-21-2015 influenza, seasonal, injectable [facility] 12-27-2013 pneumococcal conjuga te vaccine, 13 valent [facility] Payers Date Payer Category Payer Self-pay 2023 Medicaid [id number] 2021 Unknown [id number] 2021 Unknown 2021 Medicare [employer] MEDICARE [employer] CHOICE PPO/HMO [id number] 2021-Present [employer] CLAIMS OFFICE [address] [address] [place] [address] PPO [id number] 2018 Unknown [id number] 1947 Unknown [id number] 2.16.840.1.763071.3.579.2.727 1947 Unknown [id number] 2.16.840.1.600999.3.579.2.727 1947 Unknown [id number] 2.16.840.1.779020.3.579.2.732 1947 Unknown [id number] 2.16.840.1.756916.3.579.2.732 1947 Unknown [id number] 2.16.840.1.112242.3.579.2.593 1947 Unknown [id number] 2.16.840.1.636528.3.579.2.1259 1947 Unknown [id number] 2.16.840.1.477604.3.579.2.1259 1947 Unknown [id number] 2.16.840.1.521394.3.579.2.1259 1947 Unknown [id number] 2.16.840.1.340124.3.579.2.1259 1947 Unknown [id number] 2.16.840.1.163636.3.579.2.9 1947 Unknown [id number] 2.16.840.1.049395.3.579.2.1258 1947 Unknown [id number] 2.16.840.1.551971.3.579.2.9 1947 Unknown [id number] 2.16.840.1.907424.3.579.2. 1947 Unknown [id number] 2.16.840.1.892999.3.579.2. 1947 Unknown [id number] 2.16.840.1.556632.3.579.2 1947 Unknown [id number] 2.16.840.1.167894.3.579.2 1947 Unknown [id number] 2.16.840.1.721078.3.579.2 1947 Unknown [id number] 2.16.840.1.451427.3.579.2 1947 Unknown [id number] 2.16.840.1.226899.3.579.2 1947 Unknown [id number] 2.16.840.1.007921.3.579.2 1947 Unknown [id number] 2.16.840.1.757181.3.579.2 1947 Unknown [id number] 2.16.840.1.947426.3.579.2 1947 Unknown [id number] 2.16.840.1.443776.3.579.2 1947 Unknown [id number] 2.16.840.1.644331.3.579.2 1947 Unknown [id number] 2.16.840.1.771359.3.579.2.727 1947 Unknown [id number] 2.16.840.1.838570.3.579.2.727 1947 Unknown [id number] 2.16.840.1.909914.3.579.2.727 1947 Unknown [id number] 2.16.840.1.996746.3.579.2.727 1947 Unknown [id number] 2.16.840.1.351110.3.579.2.727 1947 Unknown [id number] 2.16.840.1.927901.3.579.2.727 1947 Unknown [id number] 2.16.840.1.428892.3.579.2.727 1947 Unknown [id number] 2.16.840.1.296925.3.579.2.72 Unknown Stacey /SARAH [id number] Unknown [id number] Unknown [id number] Social History Date Type Detail Facility Start: 03-21-2022 End: 04-22-2024 Tobacco smoking status Ex-smoker (finding) [facility] Tobacco smoking status Never [facility] Sex Assigned At Male [facility] Tobacco smoking status [facility] Tobacco smoking consumption unknown [facility] Start: 1945 Sex Assigned At Not on file [facility] Start: 1945 Sex Assigned At Male [facility] Medical Equipment Procedure Code Equipment Code Equipment Origin al Text Equipment Identifier Dates ELBOW FRACTURE O Theresa Huerta DO 10/28/23 Unknown Elbow R FDA Start: 10-28-2023 ELBOW FRACTURE O RIF Pocos DO, Theresa Montgomery 10/28/23 Unknown Elbow R FDA Start: 10-28-2023 ELBOW FRACTURE O RIF Pocos DO, Theresa Montgomery 10/28/23 Unknown Elbow R FDA Start: 10-28-2023 ELBOW FRACTURE O RIF Pocos DO, Theresa Montgomery 10/28/23 Unknown Elbow R FDA Start: 10-28-2023 Goals Date Patient Goal Desired Activity /State Functional Status Date Assessment Result Facility 04-11-2024 Functional Status N/A [facility] 10-22-2023 Functional Status No [facility] 10-17-2023 Functional Status N/A [facility] 07-05-2022 Functional Status N/A [facility] Clinical Notes 03-21-2022 to 04-11-2024 Note Date & Type Note Facility 04-11-2024 Hospital Discharg e instructions Patient Education 04/11/2024 19:40:21 Finger or Thumb Dislocation Finger or Thumb Dislocation Finger or thumb dislocation happens when the bones in a joint move out of their normal positions. Dislocations may occur in any joint in the fingers or thumb. Finger or thumb dislocation is a common and serious injury. What are the causes? This condition is caused by a forceful impact or injury to the hand or when the finger or thumb bends the wrong way (hyperextension). What increases the risk? You are more likely to develop this condition if you: Have previously injured your hand. Do repetitive motions with your hands, such as when playing sports or doing heavy labor. Have poor hand strength and flexibility. What are the signs or symptoms? Symptoms of this condition may include: Deformity of the injured area. The affected joint may look like it is out of place or at an odd angle. Pain, swelling, and bruising in the injured area. Limited range of motion of the finger or thumb. How is this diagnosed? This condition is diagnosed with a physical exam. You may also have X-rays to check for breaks (fractures) in your bones. How is this treated? For mild dislocations, this condition is treated by moving your finger or thumb back into position (reduction). Your health care provider may do this by hand (manually) or with surgery. You may need surgical reduction if you have: A severe dislocation. A dislocation that cannot be reduced manually. A fractured bone. An open wound. After reduction, your finger or thumb may be kept in a fixed position (immobilized) with a splint for up to 6 weeks. You may also need physical therapy. In some cases, you may need to go to a health care provider who specializes in bone disorders (orthopedist) to help treat your condition. Follow these instructions at home: If you have a splint: Do not put pressure on any part of the splint until it is fully hardened. This may take several hours. Wear the splint as told by your health care provider. Remove it only as told by your health care provider. Loosen the splint if your fingers tingle, become numb, or turn cold and blue. Keep the splint clean. If the splint is not waterproof: ?Do not let it get wet. ?Cover it with a watertight covering when you take a bath or shower. Managing pain, stiffness, and swelling If directed, put ice on the injured area. ?If you have a removable splint, remove it as told by your health [...] provider what activities are safe for you. Rest and limit your hand movement as told by your health care provider. If physical therapy was prescribed, do exercises as told by your health care provider. Driving Ask your health care provider if the medicine prescribed to you requires you to avoid driving or using heavy machinery. Ask your health care provider when it is safe to drive if you have a splint on your hand. General instructions Take pdfh-nwd-bzpirrh and prescription medicines only as told by your health care provider. Do not take baths, swim, or use a hot tub until your health care provider approves. Ask your health care provider if you may take showers. You may only be allowed to take sponge baths. Do not use any products that contain nicotine or tobacco, such as cigarettes, e-cigarettes, and chewing tobacco. These can delay bone healing. If you need help quitting, ask your health care provider. Keep all follow-up visits as told by your health care provider. This is important. Contact a health care provider if you have: Problems with your splint. Pain that gets worse or does not get better with medicine. More bruising, swelling, or redness in your injured area. Difficulty moving your finger or thumb after it heals. Get help right away if: You develop numbness in your finger or thumb. You cannot move your finger or thumb. Your finger or thumb is pale or cold. You have severe pain. Summary Finger or thumb dislocation happens when the bones in a joint move out of their normal positions. This condition is caused by a forceful impact or injury to the hand. For mild dislocations, this condition is treated by moving your finger or thumb back into position (reduction). You may need surgery if you have a severe dislocation, an open wound, or a fractured bone. This information is not intended to replace advice given to you by your health care provider. Make sure you discuss any questions you have with your health care provider. Document Revised: 03/07/2022 Document Reviewed: 03/07/2022 [employer] Patient Education 2022 [employer]. 04/11/2024 19:40:21 Metacarpal Fracture Metacarpal Fracture A metacarpal fracture is a break (fracture) in one of the five bones in your hand. The bones go from your wrist to your knuckles. The metacarpal bones connect your thumb and fingers to your wrist. A metacarpal fracture may be treated with a splint, cast, or surgery. What are the causes? This injury may be caused by: A fall. A hard, direct hit to the hand. An injury that squeezes a knuckle, stretches a finger out of place, or crushes the hand. What increases the risk? This injury is more likely to happen in people who: Play contact sports. Have a condition that causes bones to become weak and brittle (osteoporosis). What are the signs or symptoms? Symptoms may include: Pain that gets worse when moving the fingers or the hand. Swelling. Stiffness. Bruising. Inability to move a finger. A finger that looks misshapen. An abnormal bend or bump in the hand or finger (deformity). How is this diagnosed? This condition may be diagnosed based on: Your symptoms and medical history. A physical exam. An X-ray. How is this treated? Treatment for this injury depends on the severity of the fracture and how the pieces of the broken bone line up with each other (alignment). If your broken bone is in good alignment, you may need to: ?Wear a splint or cast for several weeks. ?Have the injured finger taped to an uninjured finger next to it (tucker taping). If the pieces of the broken bone are out of alignment, your health care provider may: ?Perform a minimally invasive surgery to align the fracture (closed reduction and internal fixation, CRIF). In this surgery, metal screws, pins, or wires are used to put the bones back in their place. ?Align the fracture and fix the bones into place with metal screws, plates, or wires (open reduction and internal fixation, ORIF). ?Move the bones back into position without surgery (closed reduction). After alignment, you will need to wear a splint or cast for several weeks. Treatment may also include: Follow-up visits and X-rays to make sure you are healing well. Physical or occupational therapy after your cast or splint is removed. Follow these instructions at home: If you have a splint: Wear the splint as told by your health care provider. Remove it only as told by your health care provider. Check the skin around the splint every day. Tell your health care provider about any concerns. Loosen the splint if your fingers tingle, become numb, or turn cold and blue. Keep it clean and dry. If you have a cast: Do not put pressure on any part of the cast until it is fully hardened. This may take several hours. Do not stick anything inside the cast to scratch your skin. Doing that increases your risk for infection. Check the skin around the cast every day. Tell your health care provider about any concerns. You may put lotion on dry skin around the edges of the cast. Do not put lotion on the skin underneath the cast. Keep it clean and dry. Bathing Do not take baths, swim, or use a hot tub until your health care provider approves. Ask your health care provider if you may take showers. You may only be allowed to take sponge baths. If the splint or cast is not waterproof: ?Do not let it get wet. ?Cover it with a watertight covering when you take a bath or shower. Managing pain, stiffness, and swelling If directed, put ice on the painful area. To do this: ?If you have a removable splint, remove it as told by your health care provider. ?Put ice in a plastic bag. ?Place a towel between your skin and the bag or between your cast and the bag. ?Leave the ice on for 20 minutes, 2 3 times a day. ?Remove the ice if your skin turns bright red. This is very important. If you cannot feel pain, heat, or cold, you have a greater risk of damage to the area. Move your fingers often to reduce stiffness and swelling. Raise (elevate) the injured area above the level of your heart while you are sitting or lying down. Activity Do not lift or hold anything with your injured hand. Return to your normal activities as told by your health care provider. Ask your health care provider what activities are safe for you. Do physical or occupational therapy exercises as told by your health care provider. Driving Ask your health care provider if the medicine prescribed to you requires you to avoid driving or using machinery. Ask your health care provider when it is safe to drive if you have a cast or splint on your hand. General instructions Take rmar-noi-bamiejx and prescription medicines only as told by your health care provider. Do not use any products that contain nicotine or tobacco. These products include cigarettes, chewing tobacco, and vaping devices, such as e-cigarettes. These can delay bone healing. If you need help quitting, ask your health care provider. Keep all follow-up visits. This is important. Contact a health care provider if you have: Pain that gets worse or does not get better with medicine. Redness or swelling that gets worse. A fever. A bad smell coming from under your cast or splint. Get help right away if: You have severe pain. The following happens, even after you loosen your splint: ?Your hand or fingernails turn blue or merino. ?Your hand feels cold or numb. Summary A metacarpal fracture is a break in one of the five bones in your hand that extend from your wrist to your knuckles. Treatment for this injury depends on the severity of the fracture and how the pieces of the broken bone line up with each other. You may need to wear a splint or cast for several weeks. Surgery may be needed for bones that are out of alignment. This information is not intended to replace advice given to you by your health care provider. Make sure you discuss any questions you have with your health care provider. Document Revised: 08/22/2021 Document Reviewed: 08/22/2021 [employer] Patient Education 2022 [employer]. 04/11/2024 19:40:21 Cast or Splint Care, Adult Cast or Splint Care, Adult Casts and splints are supports that are worn to protect broken bones and other injuries. A cast or splint may hold a bone still and in the correct position while it heals. Casts and splints may also help with pain, swelling, and muscle spasms. A cast is a hardened support that is usually made of fiberglass or plaster. It is custom-fit to the body and offers more protection than a splint. Most casts cannot be taken off and put back on. A splint is a type of soft support that is usually made from cloth and elastic. It can be adjusted or taken off as needed. Often, when a bone is broken, a splint is put on until the swelling goes down, and then the splint is replaced by a cast. You may need a cast or a splint if you: Have a broken bone. Have a soft-tissue injury. Need to keep an injured body part from moving (keep it immobile) after surgery. What are the risks? In some cases, wearing a cast or splint can cause a reduced blood supply to the wrist or hand or to the foot and toes. This can happen if there is a lot of swelling or if the cast or splint is too tight. Limited blood supply results in a condition called compartment syndrome and can cause permanent damage. Symptoms include: Pain that is getting worse. Numbness and tingling. Changes in skin color, including paleness or a bluish color. Cold fingers or toes. Other complications of wearing a cast or splint can include: Skin irritation that can cause itching, rash, skin sores, or skin infection. Limb stiffness or weakness. How to care for a nonremovable cast or splint Do not put pressure on any part of the cast or splint until it is fully hardened. This may take several hours. Check the skin around the cast or splint every day. Tell your health care provider about any concerns. Do not stick anything inside the cast or splint to scratch your skin. Doing that increases your risk of infection. You may put lotion on dry skin around the edges of the cast or splint. Do not put lotion on the skin underneath the cast or splint. Keep the cast or splint clean and dry. How to care for a removable splint Wear the splint as told by your health care provider. Remove it only as told by your health care provider. Check the skin around the splint every day. Tell your health care provider about any concerns. Loosen the splint if your fingers tingle, become numb, or turn cold and blue. Keep the splint clean and dry. Clean your splint as told by your health care provider. Use mild soap and water and let it air-dry. Do not use heat on your splint. Follow these instructions at home: Bathing Do not take baths, swim, or use a hot tub until your health care provider approves. Ask your health care provider if you may take showers. You may only be allowed to take sponge baths. If your cast or splint is not waterproof: ?Do not let it get wet. ?Cover it with a watertight covering when you take a bath or shower. Managing pain, stiffness, and swelling If directed, put ice on the affected area. To do this: ?If you have a removable cast or splint, remove it as told by your health care provider. ?Put ice in a plastic bag. ?Place a towel between your skin and the bag or between your cast and the bag. ?Leave the ice on for 20 minutes, 2 3 times a day. ?Remove the ice if your skin turns bright red. This is very important. If you cannot feel pain, heat, or cold, you have a greater risk of damage to the area. Move your fingers or toes often to reduce stiffness and swelling. Raise (elevate) the injured area above the level of your heart while you are sitting or lying down. Safety Do not use the injured limb to support your body weight until your health care provider says that you can. Use crutches or other assistive devices as told by your health care provider. Ask your health care provider when it is safe to drive if you have a cast or splint on part of your body. General instructions Take htea-pgd-ulrpkov and prescription medicines only as told by your health care provider. Return to your normal activities as told by your health care provider. Ask your health care provider what activities are safe for you. Keep all follow-up visits. This is important. Contact a health care provider if: The skin around the cast or splint gets red or raw. The skin under the cast is extremely itchy or painful. Your cast or splint: ?Gets damaged. ?Feels very uncomfortable. ?Is too tight or too loose. Your cast becomes wet or develops a soft spot or area. You notice a bad smell coming from under your cast. You get an object stuck under your cast. There is fluid leaking through the cast. Get help right away if: You develop any symptoms of compartment syndrome, such as: ?Severe pain or pressure under the cast. ?Numbness, tingling, coldness, or pale or bluish skin. The part of your body above or below the cast is swollen and discolored. You cannot feel or move your fingers or toes. You have trouble breathing or shortness of breath. You have chest pain. Your pain gets worse. These symptoms may represent a serious problem that is an emergency. Do not wait to see if the symptoms will go away. Get medical help right away. Call your local emergency services (911 in the [place] Do not drive yourself to the hospital. Summary Casts and splints are worn to protect broken bones and other injuries. Casts and splints should remain clean and dry. Remove your cast or splint only as told by your health care provider. Get help right away if your pain gets worse, or if you have numbness, tingling, or skin that turns cold, blue, or discolored. This information is not intended to replace advice given to you by your health care provider. Make sure you discuss any questions you have with your health care provider. Document Revised: 05/14/2022 Document Reviewed: 05/14/2022 [employer] Patient Education 2022 [employer]. Follow Up Care 04/11/2024 16:24:28 With:Syd Orozco Address: [address] [place], [place] [address] [address] Business (1) When:04/14/2024 19:05:07 Comments:Make sure to follow-up with Dr. Orozco as instructed. Return to the emergency room if your pain gets worse or any new symptoms. With:Abbie Borges Address: [address] [place] [id number] Business (1) When:Within 3 Day(s) [facility] 04-11-2024 Evaluation + Plan note Extrac krystal from: Title:ED Note Author:Leonidas Bedoya, Itz Mayberry te:04/11/24 1. Fracture of fifth metacar pal bone of left hand (S62.307A: Unspecified fracture of fifth metacarpal bone, left hand, initial encounter for closed fracture) Ordered: acetaminophen-hydrocodone, 1 tab(s), Oral, q6hr as needed for pain, 12 tab(s), Refill(s) 0, [facility]/pharmacy #[id number], 177, cm, 04/11/24 16:32:00 EDT, Height/Length Dosing, 134, kg, 04/11/24 16:32:00 EDT, Weight Dosing 2. Dislocation of MCP joint of hand (S63.269A: Dislocation of metacarpophalangeal joint of unspecified finger, initial encounter) Orders: lidocaine, 50 mg, 5 mL, Injection, TransDermal, Once, Stop date 04/11/24 16:50:00 EDT, STAT, Start date 04/11/24 16:50:[address] 3D Reconstruction Separate Wkst CT Head or Brain w/o Contrast CT Upper Extremity w/o Contrast Left XR Hand 3+ Views Left XR Hand 3+ Views Left [facility]11-28-2023 Hospital Discharge instructions Patient Education 10/28/2023 16:52:15 Post Op Patient Instructions - FT (Custom) (CUSTOM) 10/27/2023 07:36:07 [facility] - Home Care Instructions (Custom) [place], [place] [facility] OUTPATIENT SURGERY Home Care [...] not drive. Theresa Villalpando, DO [facility] [address] [place], [place] [id number] Reviewed: 03-08 Follow Up Care 10/20/2023 14:32:22 With:Theresa Villalpando Address: [address] [place] [phone] Business (1) When:11/10/2023 14:30:00 Comments:Appointment has already been scheduled [facility]11-27-2023 Note [id number] Discharge instructions Patient Education 10/17/2023 23:42:46 Olecranon Fracture Olecranon Fracture An olecranon fracture is a break in one of the bones of your elbow. Three bones make up your elbow.These include the two bones of your lower [...] Follow these instructions at home: Medicines Take xeom-zgd-huepruv and prescription medicines only as told by your health care provider. Ask your health care provider if the medicine prescribed to you: ?Requires you to avoid driving or using heavy machinery. ?Can cause constipation. You may need to take actions to prevent or treat constipation, such as: ?Drink enough fluid to keep your urine pale yellow. ?Take hzsu-ova-iinfvcu or prescription medicines. ?Eat foods that are [...] your health care provider approves. Ask your healthcare provider if you may take showers. You [...] contain nicotine or tobacco, such as cigarettes, e- cigarettes, and chewing tobacco. These can delay bone healing. If you need help quitting, ask your health care provider. Ask your health care provider when it is safe to drive if you have a cast, splint, or sling on yourarm. Keep all follow-up visits as told by [...] provider. Document Revised: 02/14/2022 Document Reviewed: 02/14/2022 [employer] Patient Education 2022 [employer]. Follow Up Care 10/17/2023 21:14:35 With:Theresa Villalpando Address: [address] [place] [address] Business (1) When:10/20/2023 Comments:You can use the pain medication every 6 hours as needed for pain. Please follow-up with your primary care doctor addition to orthopedics for further evaluation management. Please return to the ED forany new or worsening symptoms. With:Abbie Borges Address: [address] [place] [address] Business (1) When:Within 3 Day(s) [facility]11-17-2023 Evaluation + Plan noteExtracted from: Title:ED Note Author:Bryce Funk DO Date :10/17/23 Olecranon fracture (S52.023A : Displaced fracture of olecranon process without intraarticular extension of unspecified ulna, initial encounter for closed fracture) Orders: acetaminophen-hydrocodone, 1 tab(s), Oral, q6hr for pain for 3 day(s), 10 tab(s), Refill(s) 0, [facility], 177.8, cm, 10/17/23 21:21:00 EST, Height/Length Dosing, 133.1, kg, 10/17/23 21:21:00 EST, Weight Dosing Sling Apply XR Elbow 3+ Views Right [facility]03-20-2023 Evaluation note* Encounter Date Diagnosis Assessment [...] with this plan, and denies any questions. [facility] Other 08-20-2022 History of Present illness Narrative* Wilfrid Haley MD - 07/20/2022 8:23 AM EDT Images from the original note were not included. EMERGENCY TRIAGE, TREAT AND TRANSPORT (ET3) DOCUMENTATION OF TELEHEALTH VISIT Date / Time: 07/18/2022 / 1430 Name: Yousif Aguilar : 1945 SSN: [id number] EMS Agency: [facility] [] Verbal consent obtained [] Implied [...] by: Wilfrid Haley MD documented in this [id number] Hospital Discharge instructions Patient Education 07/05/2022 13:44:46 [...] activities that cause pain. General instructions Take qlpb-lak-gwbmets and prescription medicines only as told by [...] 05/07/2011 Document Revised: 04/03/2020 Document Reviewed: 04/03/2020 [employer] Patient Education 2019 [employer] Follow Up Care 07/05/2022 11:49:47 With:Abbie Borges Address: [address] [place] [address] [facility] [place] [address] Business (1) When:07/08/2022 13:33:40 [facility]08-05-2022 Evaluation + Plan noteExtracted from: Title:ED [...] XR Hip 2-3 Views Right + Pelvis [facility]04-21-2022 Hospital Discharge instructions Patient Education 03/21/2022 [...] 08/13/2005 Document Revised: 03/04/2019 Document Reviewed: 03/04/2019 [employer] Patient Education 2020 [employer] Follow Up Care 03/05/2022 13:23:06 With:Mitali Hawk CNP Address: When:1 year only if needed [facility] Evaluation + Plan note No data available for this section [facility] Evaluation + Plan note Future Appointments Appointment Date:12/10/2022 10:00:00 AM Scheduled Provider: [facility] Appointment Type:WC Assessment (FT) Appointment Date:12/17/2022 01:45:00 PM Scheduled Provider:Facundo Hoffman DPM [facility] Appointment Type[facility] Future Appointments Appointment Date:12/17/2022 01:45:00 PM Scheduled Provider:Facundo Hoffman DPM [facility] Appointment Type:WC [facility] Future Appointments Appointment Date:12/31/2022 10:30:00 AM Scheduled Provider: [facility] Appointment Type:WC Assessment (FT) Appointment Date:01/07/2023 01:45:00 PM Scheduled Provider:Facundo Hoffman DPM [facility] Appointment Type:WC [facility] Future Appointments Appointment Date:12/31/2022 01:30:00 PM Scheduled Provider: [facility] Appointment Type:WC Assessment (FT) Appointment Date:01/07/2023 01:45:00 PM Scheduled Provider:Facundo Hoffman DPM [facility] Appointment Type:WC [facility] Future Appointments Appointment Date:01/07/2023 01:45:00 PM Scheduled Provider:Facundo Hoffman DPM [facility] Appointment Type:WC [facility] Future Appointments Appointment Date:01/14/2023 02:30:00 PM Scheduled Provider:Facundo Hoffman DPM [facility] Appointment Type:WC [facility] Future Appointments Appointment Date:01/21/2023 03:30:00 PM Scheduled Provider:Facundo Hoffman DPM [facility] Appointment Type:WC [facility] Future Appointments Appointment Date:01/28/2023 03:30:00 PM Scheduled Provider:Facundo Hoffman DPM [facility] Appointment Type:WC Follow Up Visit (FT) Appointment Date:02/11/2023 01:30:00 PM Scheduled Provider:Facundo Hoffman DPM [facility] Appointment Type:WC [facility] Future Appointments Appointment Date:02/04/2023 01:45:00 PM Scheduled Provider:Facundo Hoffman DPM [facility] Appointment Type:WC Follow Up Visit (FT) Appointment Date:02/11/2023 01:30:00 PM Scheduled Provider:Facundo Hoffman DPM [facility] Appointment Type:WC [facility] Future Appointments Appointment Date:02/11/2023 01:30:00 PM Scheduled Provider:Facundo Hoffman DPM [facility] Appointment Type:WC [facility] Future Appointments Appointment Date:02/25/2023 11:30:00 AM Scheduled Provider: [facility] Appointment Type:WC Assessment (FT) Appointment Date:03/04/2023 01:15:00 PM Scheduled Provider:Facundo Hoffman DPM [facility] Appointment Type:WC [facility] Future Appointments Appointment Date:03/04/2023 01:15:00 PM Scheduled Provider:Facundo Hoffman DPM [facility] Appointment Type:WC [facility] Future Appointments Appointment Date:03/11/2023 11:00:00 AM Scheduled Provider: [facility] Appointment Type:WC Assessment (FT) Appointment Date:03/17/2023 01:30:00 PM Scheduled Provider: [facility] Appointment Type:WC Assessment (FT) Appointment Date:03/25/2023 02:00:00 PM Scheduled Provider:Facundo Hoffman DPM [facility] Appointment Type:WC [facility] Future Appointments Appointment Date:03/17/2023 01:30:00 PM Scheduled Provider: [facility] Appointment Type:WC Assessment (FT) Appointment Date:03/25/2023 02:00:00 PM Scheduled Provider:Facundo Hoffman DPM [facility] Appointment Type:WC [facility] Future Appointments Appointment Date:04/08/2023 01:45:00 PM Scheduled Provider:Facundo Hoffman DPM [facility] Appointment Type:WC [facility] Future Appointments Appointment Date:04/15/2023 02:15:00 PM Scheduled Provider:Facundo Hoffman DPM [facility] Appointment Type:WC [facility] Future Appointments Appointment Date:05/15/2023 10:00:00 AM Scheduled Provider: [facility] Appointment Type:WC Assessment (FT) Appointment Date:05/20/2023 01:45:00 PM Scheduled Provider:Facundo Hoffman DPM [facility] Appointment Type:WC [facility] Future Appointments Appointment Date:05/20/2023 03:15:00 PM Scheduled Provider:Facundo Hoffman DPM [facility] Appointment Type:WC [facility] Up [facility] ([facility] Future Appointments Appointment Date:06/02/2023 08:30:00 AM Scheduled Provider: [facility] Appointment Type:WC Assessment (FT) Appointment Date:06/10/2023 03:00:00 PM Scheduled Provider:Facundo Hoffman DPM [facility] Appointment Type:WC [facility] Future Appointments Appointment Date:06/10/2023 03:00:00 PM Scheduled Provider:Facundo Hoffman DPM [facility] Appointment Type:WC [facility] Future Appointments Appointment Date:06/24/2023 03:00:00 PM Scheduled Provider:Facundo Hoffman DPM [facility] Appointment Type:WC Follow Up Visit ([facility] Future Appointments Appointment Date:07/08/2023 01:45:00 PM Scheduled Provider:Facundo Hoffman DPM [facility] Appointment Type:WC Follow Up Visit ([facility] Future Appointments Appointment Date:07/14/2023 09:00:00 AM Scheduled Provider: [facility] Appointment Type:WC Assessment (FT) Appointment Date:07/22/2023 02:00:00 PM Scheduled Provider:Facundo Hoffman DPM [facility] Appointment Type:WC Follow Up [facility] Future Appointments Appointment Date:07/22/2023 02:00:00 PM Scheduled Provider:Facundo Hoffman DPM [facility] Appointment Type:WC Follow Up Visit ([facility] Future Appointments Appointment Date:08/05/2023 02:00:00 PM Scheduled Provider:Facundo Hoffman DPM [facility] Appointment Type:WC Follow Up Visit (FT[facility] Future Appointments Appointment Date:10/28/2023 02:00:00 PM Scheduled Provider: Location:[facility] Diagnosis Fall in home, initial encounter- Primary documented in this [facility]: Evaluation note* Diagnosis Onset Date Resolution Status Dislocation of metacarpophal angeal joint of left little finger acute Fracture of phalanx of left little finger acute [facility] Work Phone: History general Narrative - Reported* Type Description Date Medical History high cholesterol Medical History Blood clots Surgical History hand and leg surgery 1974 Surgical History jaw wiring Surgical History elbow surgery Surgical History appendectomy Surgical History wrist surgery right hand Hospitalization History see above [facility] Other Hospital Discharge instructions No data available for this section [facility] Additional Instructions DR. CULVER'S POST OP INSTRUCTIONS Take prescribed pain medication as directed and as needed to control your post- operative pain. -In addition to the prescribed medication, you may take ibuprofen (Advil, Motrin) or naproxen (Aleve/Naprosyn) to help control pain and decrease swelling. -DO NOT TAKE ibuprofen/Naprosyn/naproxen if you have a history of bleeding ulcer, are taking anticoagulation medication (Coumadin/warfarin, Eliquis, Xarelto, Plavix, Lovenox), if you have had a history of gastric bypass surgery, or if you have a history of kidney disease. Elevate the operative area as much as possible, using at least 2-3 pillows, keeping the hand higher than the elbow. Keep ice at the operative area as much as possible. It takes longer than 20 minutes for the cold to penetrate the bandages, so leave the ice bag or cold pack in place until the ice melts, then it is time to change to a fresh ice bag or cold pack. -Elevation and ice help to lessen the swelling post-operatively which helps to lessen pain so that you will need to take less pain medication, as well as maintaining better range of motion and function of your hand (more swelling, less movement). You may wiggle your fingers, bending, flexing, and move them to decrease stiffness. You may use your hands for light activities of 2-5 lbs. This is lifting your coffee cup, using your silverware, and typing on a computer or tablet. -Do NOT perform strenuous lifting or lift greater than 5-10 lbs until directed by your surgeon at follow-up DO NOT REMOVE your bandage; it will be removed and changed at your first hand therapy appointment - Keep the bandage covered with a plastic bag or cast cover in the shower until after meeting with hand therapy - You may loosen the bandage if too tight DO NOT REMOVE your splint; leave your splint in place until your first hand therapy appointment - Keep your splint covered with a plastic bag or cast cover in the shower until after meeting with hand therapy - You may loosen the splint if too tight You may remove your dressing after meeting with the hand therapist, and get your surgical incision wet in the shower or when washing your hands with soap and water. -DO NOT soak your incision or submerge it under standing water such as dishwater or bathtub. -DO NOT apply perfumed moisturizers or ointments unless otherwise instructed by your physician. -Washing your incision gently with soap and water on a daily basis, helps to rid your skin of bacteria and decrease the risk of wound infections. -After showering or washing your hands, pat the incision dry, and keep covered with a clean dry gauze bandage. -You may apply Bacitracin, Neosporin, or generic triple antibiotic ointment to incision if you would like Take vitamin C 500 mg by mouth daily to help skin and incision heal Take antibiotics as directed to decrease risk of infection after surgery Please call hand occupational therapy at [facility] [phone] or at [facility] [phone], or another hand occupational therapist of your choosing, as soon as possible to be scheduled and started on the postoperative splinting and motion protocol [facility] Work Phone: Progress note No data available for this section [facility] Summary Purpose Family History No Family History Records Found Relationship Condition Age at Onset Recorded Date/T freddie father Unknown Not Specified Unknown Relationship Condition Age at Onset Recorded Date/T freddie father Myocardial infarction Unknown Not Specified Lymphoma Unknown History of coronary artery bypass surgery Unknown sister Malignant melanoma Unknown Advance Directives No Advanced Directives Records Found Advance Directive Response Recorded Date/ Time Advance Directives No February 20 1:34pm Chief Complaint and Reason for Visit Chief Complaint vv's with ulcers Chief Complaint ER FT LT PINKY FX RE DUCED DISLOCATION WX Reason for Visit Dislocation of metac arpophalangeal joint of left little finger Fracture of phalanx of left little finger Chief Complaint ER FT LT PINKY FX RE DUCED DISLOCATION WX Fracture Reason for Visit Dislocation of metac arpophalangeal joint of left little finger Fracture of phalanx of left little finger Chief Complaint ER FT LT PINKY FX RE DUCED DISLOCATION WX Fracture Fracture Reason for Visit Dislocation of metac arpophalangeal joint of left little finger Fracture of phalanx of left little finger Additional Source Comments (unrecognized sect ion and content) No Status Records FoundNo Status Records FoundNo Status Records FoundNo Status Records FoundNo Status Records FoundNo Status Records FoundNo Status Records Found INFORMATION SOURCE (unrecogn ized section and content) DATE CREATED AUTHOR 05/27/2018 [facility] DATE CREATED AUTHOR AUTHOR'S ORGANIZ ATION 02/25/2019 Carrillo Wilbarger [facility] DATE CREATED AUTHOR AUTHOR'S ORGANIZ ATION 11/01/2022 [facility] DATE CREATED AUTHOR AUTHOR'S ORGANIZ ATION 04/09/2023 [facility] DATE CREATED AUTHOR AUTHOR'S ORGANIZ ATION 12/22/2023 [facility] EPIC DATE CREATED AUTHOR AUTHOR'S ORGANIZ ATION 04/16/2024 Carrillo Zachariah [facility] DATE CREATED AUTHOR AUTHOR'S ORGANIZ ATION 04/26/2024 [facility] Care Team (unrecognized sect ion and content) Team Status: Active Member Role Status Dates Abbie Borges III , DO Primary Care Provider Active Team Status: Inactive Member Role Status Dates Abbie Borges III , DO Primary Care Provider Active JV OrdoñezC Attending Provider Active Team Status: Inactive Member Role Status Dates Abbie Borges III , DO Primary Care Provider Active Start: April 20, 2024 End: April 20, 2024 Katie Culver MD Attending Provider Active Start: April 20, 2024 End: April 20, 2024 Team Status: Inactive Member Role Status Dates Abbie Borges III , DO Primary Care Provider Active Start: April 21, 2024 End: April 21, 2024 Katie Culver MD Attending Provider Active Start: April 21, 2024 End: April 21, 2024 Team Status: Inactive Member Role Status Dates Abbie Borges III , DO Primary Care Provider Active Start: April 22, 2024 End: April 22, 2024 Katie Culver MD Attending Provider Active Start: April 22, 2024 End: April 22, 2024 Reason for Visit (unrecogniz ed section and [...] BE BASED ON THE PRIMARY CLINICAL RECORDS. [employer] [facility]. provides no warranty or guarantee of the accuracy or completeness of information in this document.
--- NOTE | 2024-04-27 09:25 | VEIN_ITS ---
[address] [address] Patient Name: YOUSIF NAJERA MRN: [id number] date: 1945 Sex: M Assigned Patient Location: Current Patient Location: Accession/Order Number: [id number] Exam Date: 04/27/2024 09:25 Report Date: 04/27/2024 10:56 At the request of: THERESA DE DIOS Procedure: VC INJ Foam Sclerosant WUS LOCKS TENDER PROCEDURE: VC INJ Foam Sclerosant WUS LOCKS TENDER HISTORY: I83.813 Pain due to varicose veins of bilateral legs Pre-operative Diagnosis: CEAP class C6 venous insufficiency with pain, tenderness, edema and incompetent branch saphenous vein(s), chronic venous insufficiency left leg secondary to venous incompetence Post-operative Diagnosis: CEAP class C6 venous insufficiency with pain, tenderness, edema and incompetent branch saphenous vein(s), chronic venous insufficiency left leg secondary to venous incompetence Procedure Performed: 1. Ultrasound-guided microfoam chemical ablation with Varithenaregistered 2. Intraoperative ultrasound guidance Physician: Cali Tanner M.D. Anesthesia: None Indications for Procedure: 78 year old male. Symptoms including lower extremity skin changes with nonhealing ulcers, dilated bulging veins, pain, swelling for many years despite conservative medical therapy including medical compression stockings, exercise and analgesics. Prior procedures include endovenous laser ablation and microfoam chemical ablation. Multiple incompetent varicosities of the left leg. Duplex scan showed reflux and enlarged diameters up to 5 mm. The patient underwent informed consent including management options where the complications of infection, bleeding, pain, and skin injury were discussed. Particular attention was spent discussing thrombus extension and deep vein thrombosis as well as the possibility of pulmonary embolus and treatment with oral or injectable blood thinners. Procedure: The patient walked to the procedure room. All applicable staff donned appropriate apparel. A procedure timeout was performed to confirm correct patient, correct extremity, correct procedure, and correct room set-up including presence of all applicable supplies, devices, and drugs. A duplex ultrasound, performed by myself confirmed the location and incompetence of branch saphenous varicosities and their course was marked on the skin together with the dilated tributaries. The extent of treatment of the vein and the associated varicosities was determined through ultrasound mapping. The skin was prepped and then punctured with a butterfly needle and advanced under ultrasound guidance. The Varithenaregistered canister was activated and the canister was primed and purged as required in the instructions for use. Varithenaregistered was drawn into a sterile syringe. Varithenaregistered was slowly administered at 0.5-1.0 cc/second with close observation by ultrasound of its course in the vessels. Total volume utilized was: 15 mL (7 mL into a 5 mm varicosity proximal medial lower left leg; 8 mL into a 5 mm varicosity lateral to the left knee). Following administration of Varithenaregistered the leg was elevated and the patient was asked to repeatedly dorsiflex the ankle to limit flow of Varithenaregistered into perforating veins. Once appropriate spasm had been confirmed in the treated veins, the vascular catheter was removed from the leg and light pressure was applied over the puncture site for hemostasis. The common femoral and deep superficial veins were then evaluated for flow and compressibility prior to dressing placement. The lower extremity was kept elevated at 45 degrees above the horizontal and cording material was applied over the saphenous segments and tributaries to allow for eccentric compression over the target vessels including the targeted saphenous vein(s). A multilayer dressing was applied consisting of foam pads, coban and thigh-high 20-30 mm Hg compression elastic support hose were placed on the patient. The leg was lowered only after compression had been applied and the patient was immediately ambulatory. The patient ambulated 10 minutes under supervision and was without apparent concerns at time of release. Post-care instructions include advising patient to keep post-treatment bandages in place and dry for 48 hours, avoid extended periods of inactivity, avoid heavy exercise for one week, wear compression stockings on the treated leg continuously for two weeks, to walk daily for 10 minutes over the next month. The patient was instructed to take an anti-inflammatory medicine as needed and to follow up for color duplex scan of the Saphenous veins, the treated branch saphenous varicosities, the adjacent deep veins, and additional treatment within 7 days. PERSONNEL: Cindy Sanchez RN Electronically authenticated by: CALI TANNER Date: 04/27/2024 10:56
== END 2024-04-27 09:04 | disposition home or self-care (01) ==
LOC: VC 09:03
PROVIDERS: PCP Radiology Diagnostic Radiology; Visit Provider Radiology Diagnostic Radiology
DX: I83.813 Varicose veins of bilateral lower extremities with pain (principal)
CPT/HCPCS: 36466

== ENCOUNTER 2024-05-03 09:00 | Outpatient (OUT) | payer OTHER, MEDICAID, SELFPAY ==
--- NOTE | 2024-05-03 09:01 | VEIN_ITS ---
Patient Name: YOUSIF NAJERA MR#: [id number] : 1945 Exam Date: 05/03/2024 Ordering Doctor: DR THERESA DE DIOS M.D. RADIOLOGY REPORT PROCEDURE: [facility] - OFFICE VISIT FOLLOW UP COMPARISON: [facility], 04/15/2024. PROGRESS NOTES: The patient reports improvement in leg symptoms. There has been interval reduction in varicosities. The patient has followed our recommendations to walk 20-30 minutes once or twice per day since the procedure. Physical exam demonstrates decrease in varicosities of the leg. Persistent reticular veins and spider veins are identified along the legs. Review of the ultrasound performed the same day demonstrates occlusive thrombus extending throughout the treated vein(s), see separate report, consistent with a successful ablation. No thrombus extending into or beyond the saphenofemoral junction. The patient expressed a desire to proceed with treatment of remaining incompetent varicosities. The patient was informed that treatment was a process and would require 1 additional procedures/sessions. [facility]: 1. Successful ablation of the left leg treated branch saphenous vein(s). 2. Persistent reticular and spider veins and mild lower extremity symptoms. PLAN: 1. Microfoam chemical ablation of remaining right leg incompetent branch saphenous varicosities. 2. No additional microfoam chemical ablation is expected to be needed within the left leg at this time. Nurse notes, history and physical were reviewed and confirmed, see attached forms. The nurse was present throughout the physical exam and consultation Dictated by: Koko Tanner M.D. on 05/03/2024 at 10:51 Approved by: Koko Tanner M.D. on 05/03/2024 at 10:56
--- NOTE | 2024-05-03 09:01 | VEIN_ITS ---
Patient Name: YOUSIF NAJERA MR#: [id number] : 1945 Exam Date: 05/03/2024 Ordering Doctor: DR THERESA DE DIOS M.D. RADIOLOGY REPORT PROCEDURE: VC EXT VENOUS LT LIMITED COMPARISON: VC EXT VENOUS LT LIMITED, 04/05/2024. INDICATIONS: Phlebitis of superficial veins of left lower extremity I80.02 TECHNIQUE: Lower extremity rodriges scale and Duplex Doppler evaluation of the deep venous system from the inguinal ligament through the calf veins. FINDINGS: REGION: Left lower extremity. THROMBI: Negative for DVT. Chemically induced thrombus in multiple varicose veins. COMPRESSIBILITY: Non-compressible segments corresponding to thrombus FLOW: Areas of no flow corresponding to thrombus OTHER: No significant varicosities remain. CONCLUSION: 1. Successful ablation of left leg treated branch saphenous varicosities. Dictated by: Koko Tanner M.D. on 05/03/2024 at 10:50 Approved by: Koko Tanner M.D. on 05/03/2024 at 10:51
== END 2024-05-03 09:01 | disposition home or self-care (01) ==
LOC: VC 09:00
PROVIDERS: PCP Radiology Diagnostic Radiology; Visit Provider Radiology Diagnostic Radiology
DX: I80.02 Phlebitis and thrombophlebitis of superficial vessels of left lower extremity (principal)
CPT/HCPCS: 93971; G0463

== ENCOUNTER 2024-05-12 10:22 | Outpatient (OUT) | payer OTHER, MEDICAID, SELFPAY ==
--- NOTE | 2024-05-12 10:25 | VEIN_ITS ---
The [address] [address] Patient Name: YOUSIF NAJERA MRN: [id number] date: 1945 Sex: M Assigned Patient Location: Current Patient Location: Accession/Order Number: [id number] Exam Date: 05/12/2024 10:38 Report Date: 05/12/2024 11:31 At the request of: THERESA DE DIOS Procedure: VC INJ Foam Sclerosant WUS RESEARCH PHYSIOLOGIST PROCEDURE: VC INJ Foam Sclerosant WUS RESEARCH PHYSIOLOGIST, right leg COMPARISON: None. HISTORY: Pain due to varicose veins of bilateral legs I83.813 Pre-operative Diagnosis: CEAP class C6 venous insufficiency with pain, tenderness, edema and incompetent right saphenous and varicose vein(s), chronic venous insufficiency right leg secondary to venous incompetence Post-operative Diagnosis: CEAP class C6 venous insufficiency with pain, tenderness, edema and incompetent right saphenous and varicose vein(s), chronic venous insufficiency right leg secondary to venous incompetence Procedure Performed: 1. Ultrasound-guided microfoam chemical ablation with Varithenaregistered 2. Intraoperative ultrasound guidance Anesthesia: None Indications for Procedure: 78-year-old male who presents with a long history of lower extremity pain and swelling with skin thickening erythema and venous stasis ulcerations. The patient failed conservative medical therapy including medical compression stockings, exercise and analgesics. Prior procedures include endovenous laser ablation and Microfoam chemical ablation. Multiple incompetent varicosities of the left leg. Duplex scan showed reflux and enlarged diameters up to 7 mm. The patient underwent informed consent including management options where the complications of infection, bleeding, pain, and skin injury were discussed. Particular attention was spent discussing thrombus extension and deep vein thrombosis as well as the possibility of pulmonary embolus and treatment with oral or injectable blood thinners. Procedure: The patient walked to the procedure room. All applicable staff donned appropriate apparel. A procedure timeout was performed to confirm correct patient, correct extremity, correct procedure, and correct room set-up including presence of all applicable supplies, devices, and drugs. A duplex ultrasound, performed by myself confirmed the location and incompetence of branch saphenous varicosities and their course was marked on the skin together with the dilated tributaries. The extent of treatment of the vein and the associated varicosities was determined through ultrasound mapping. The skin was prepped and then punctured with a butterfly needle and advanced under ultrasound guidance. The Varithenaregistered canister was activated and the canister was primed and purged as required in the instructions for use. Varithenaregistered was drawn into a sterile syringe. Following injections were made: 8 cc injected into a 7 mm varicose vein left mid medial lower leg 7 cc injected into a 5 mm varicose vein mid lateral lower leg Varithenaregistered was slowly administered at 0.5-1.0 cc/second with close observation by ultrasound of its course in the vessels. Total volume utilized was: 15cc. Following administration of Varithenaregistered the leg was elevated and the patient was asked to repeatedly dorsiflex the ankle to limit flow of Varithenaregistered into perforating veins. Once appropriate spasm had been confirmed in the treated veins, the vascular catheter was removed from the leg and light pressure was applied over the puncture site for hemostasis. The common femoral and deep superficial veins were then evaluated for flow and compressibility prior to dressing placement. The lower extremity was kept elevated at 45 degrees above the horizontal and cording material was applied over the saphenous segments and tributaries to allow for eccentric compression over the target vessels including the targeted saphenous vein(s). A multilayer dressing was applied consisting of foam pads, coban and thigh-high 20-30 mm Hg compression elastic support hose were placed on the patient. The leg was lowered only after compression had been applied and the patient was immediately ambulatory. The patient ambulated 10 minutes under supervision and was without apparent concerns at time of release. Post-care instructions include advising patient to keep post-treatment bandages in place and dry for 48 hours, avoid extended periods of inactivity, avoid heavy exercise for one week, wear compression stockings on the treated leg continuously for two weeks, to walk daily for 10 minutes over the next month. The patient was instructed to take an anti-inflammatory medicine as needed and to follow up for color duplex scan of the Saphenous veins, the treated branch saphenous varicosities, the adjacent deep veins, and additional treatment within 7 days. PERSONNEL: Deandre Lechuga RN Electronically authenticated by: THERESA DE DIOS Date: 05/12/2024 11:31
== END 2024-05-12 10:23 | disposition home or self-care (01) ==
LOC: VC 10:22
PROVIDERS: PCP Radiology Diagnostic Radiology; Visit Provider Radiology Diagnostic Radiology
DX: I83.813 Varicose veins of bilateral lower extremities with pain (principal)
CPT/HCPCS: 36466

== ENCOUNTER 2024-05-20 09:13 | Outpatient (OUT) | payer OTHER, MEDICAID, SELFPAY ==
--- NOTE | 2024-05-20 09:16 | VEIN_ITS ---
Patient Name: YOUSIF NAJERA MR#: [id number] : 1945 Exam Date: 05/20/2024 Ordering Doctor: DR THERESA DE DIOS M.D. RADIOLOGY REPORT PROCEDURE: VC EXT VENOUS RT LMTD COMPARISON: VC EXT VENOUS RT LMTD, 04/15/2024. INDICATIONS: I80.01 Phlebitis/thrombophlebitis right leg TECHNIQUE: Lower extremity rodriges scale and Duplex Doppler evaluation of the deep venous system from the inguinal ligament through the calf veins. FINDINGS: REGION: Right lower extremity. THROMBI: Negative for DVT. Varithena induced thrombus visualized at mid/med calf and mid/lat calf. COMPRESSIBILITY: Non-compressible segments corresponding to thrombus FLOW: Areas of no flow corresponding to thrombus OTHER: Multiple varicose veins remain measuring up to 5.2mm with 1.2s reflux. CONCLUSION: 1. 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 Dictated by: Koko Tanner M.D. on 05/20/2024 at 10:38 Approved by: Koko Tanner M.D. on 05/20/2024 at 10:39
--- NOTE | 2024-05-20 09:17 | VEIN_ITS ---
Patient Name: YOUSIF NAJERA MR#: [id number] : 1945 Exam Date: 05/20/2024 Ordering Doctor: DR THERESA DE DIOS M.D. RADIOLOGY REPORT PROCEDURE: [facility] - OFFICE VISIT FOLLOW UP [facility]. PROGRESS NOTES: The patient reports improvement in leg symptoms. There has been interval reduction in varicosities. The patient has followed our recommendations to walk 20-30 minutes once or twice per day since the procedure. Physical exam demonstrates decrease in marked improvement of right lower extremity skin changes and prior wounds. of the leg. Review of the ultrasound performed the same day demonstrates occlusive thrombus extending throughout the treated vein(s), see separate report, consistent with a successful ablation. No thrombus extending into or beyond the saphenofemoral junction. The patient was informed that treatment was a complete at this time. Patient has used all of the approved microfoam chemical ablation treatments. While there are remaining incompetent dilated branch saphenous varicosities, all of the worst veins have been treated. [facility]: 1. Successful ablation of the right leg treated branch saphenous vein(s). 2. There are some remaining/persistent varicose veins bilaterally, however, all of the approved treatments have been utilized. All of the most concerning veins have been treated.. PLAN: Follow-up with veins center in 1 year, or as needed, for assessment. Nurse notes, history and physical were reviewed and confirmed, see attached forms. The nurse was present throughout the physical exam and consultation Dictated by: Koko Tanner M.D. on 05/20/2024 at 10:39 Approved by: Koko Tanner M.D. on 05/20/2024 at 10:43
== END 2024-05-20 09:14 | disposition home or self-care (01) ==
LOC: VC 09:13
PROVIDERS: PCP Radiology Diagnostic Radiology; Visit Provider Radiology Diagnostic Radiology
DX: I80.01 Phlebitis and thrombophlebitis of superficial vessels of right lower extremity (principal)
CPT/HCPCS: 93971; G0463